=== PATIENT | female | born 1950 | race Caucasian/White ===

== ENCOUNTER 2023-06-18 13:46 | Outpatient (OUT) | payer OTHER, SELFPAY ==
--- NOTE | 2023-06-18 | CONS_ITS ---
CONSULTATION DATE: ??06/18/2023 HISTORY:? Patient presents today complaining of 7/10 pain in her lower back bilaterally, described as a stabbing pain, increased with standing, walking and performing transitioning maneuvers.? Twisting maneuver is also quite painful.? She feels most comfortable in the semi-recumbent position or sitting.? Denies any change in bowel and bladder habits or new sensorimotor changes in the lower extremities. MEDICATION:? Current medications include baclofen 5 mg b.i.d. to t.i.d. as tolerated and Zonegran 50 mg at h.s.? Denies any side effects, but she does report that she is possibly losing her hair which coincides with the start up of these medicines. EXAM:? Her examination is notable for patient having no clinical radiculopathy or myelopathy involving the lower extremities.? However, patient did have dysesthesia and hyperesthesia overlying the lateral cutaneous branch of the iliohypogastric nerve on the right side.? She has severe pain with lumbar facet loading maneuvers occurring bilaterally, left worse than right, at L4-5 and L5- S1.? She has associated myofascial spasm of the lumbar paravertebral muscles.? She also had increasing pain with lumbar axial loading maneuvers, and point tenderness at the L4-5 and L5-S1 interspace. IMPRESSION:? Our impression is patient appears to have: 1.? Chronic pain secondary to possible lumbar discogenic pain at L4-5, L5-S1. 2.? Lumbosacral spondylosis bilaterally, worse on the left than the right side, at L4-5, L5-S1. 3.? 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 RECOMMENDATIONS:? I have recommended proceeding with a diagnostic bilateral L3, 4 and 5 medial branch block.? I have asked her to hold the Zonegran secondary to possible alopecia from the same.? I have increased her baclofen 5 mg pills, 1-2 pills b.i.d.? We will get the lumbosacral spine films, and also a lumbar MRI without contrast to determine < > proximal lumbar discogenic pain. As part of providing excellent, safe, comprehensive care, the following was completed at our patient's visit: 1. A medication reconciliation and review to ensure accurate knowledge of current/active medications, including asking our patients to inform us about any sfke-yyy-kvtwjux medications or herbal remedies/nutritional supplements/alternative remedies. 2. A review to specifically ensure our patients have had annual screening for: elevated body mass index (BMI, see intake chart for exact total), tobacco use, screening for depression, and screening for unhealthy alcohol use.? When screening is concerning, patients are provided with education and the specific recommendation to discuss the con MTDD
== END 2023-06-18 13:47 | disposition home or self-care (01) ==
LOC: PM 13:48
PROVIDERS: Visit Provider Anesthesiology Pain Medicine
DX: M47.817 Spondylosis without myelopathy or radiculopathy, lumbosacral region (principal); G89.29 Other chronic pain
CPT/HCPCS: 72110; G0463

== ENCOUNTER 2023-06-18 15:40 | Outpatient (OUT) | payer OTHER, SELFPAY ==
--- NOTE | 2023-06-18 16:00 | XR_ITS ---
The [address] [address] Patient Name: MARLENA DIAZ MRN: [id number] date: 1950 Sex: F Assigned Patient Location: [facility] Current Patient Location: Accession/Order Number: [id number] Exam Date: 06/18/2023 15:54 Report Date: 06/19/2023 09:27 At the request of: GEORGETTE COPPOLA Procedure: XR lumbar spine min 4V EXAM: XR lumbar spine min 4V HISTORY: Lumbar Spondylosis, M47.816 COMPARISON: None. TECHNIQUE: 4 views FINDINGS: Satisfactory alignment. Maintained vertebral body heights. Multilevel endplate degenerative changes, disc disease, and anterior spurring of the lumbar spine. No acute fracture or subluxation. Nonobstructive bowel gas pattern. XR/XR lumbar spine min 4V IMPRESSION: Degenerative changes and disc disease as above. Electronically authenticated by: MARIANA ECHEVARRIA Date: 06/19/2023 09:27
== END 2023-06-18 15:41 | disposition home or self-care (01) ==
LOC: RAD 15:45
PROVIDERS: Visit Provider Anesthesiology Pain Medicine
DX: M47.816 Spondylosis without myelopathy or radiculopathy, lumbar region (principal)
CPT/HCPCS: 72110

== ENCOUNTER 2023-07-14 09:28 | Day surgery (SDC) | payer OTHER, SELFPAY ==
[2023-07-14 09:42] VITALS: BP 158/88; PULSE 80; RESP 16; TEMP 36; O2SAT 100
[2023-07-14] MEDS: BUPIVACAINE HCL 0.25% PF 25 MG/10 ML VIAL INJ (10:30)
[2023-07-14 10:33] VITALS: BP 171/102; PULSE 73; RESP 18; O2SAT 91
[2023-07-14 10:34] VITALS: BP 177/92; PULSE 77; RESP 18; O2SAT 91
--- NOTE | 2023-07-14 16:10 | P.ON_ITS ---
Date of procedure: 07/14/23 Pre-op diagnosis: lumbar spondylosis Post-op diagnosis: same as pre-op Procedure: Bilat lumbar 3,4,5 medial branch block Under fluoroscopic guidance Solution injected: 2millilitersMarcaine 0.25% Anesthesia :none Immediate complications none Time out process compliant After informed consent obtained from the patient placed in the Prone proposition . area was prepped and draped in a sterile fashion using Cloraprep .25 gauge spinal needle inserted over each of the above mentioned target areas . [place] were directed towards the target under fluoroscopic guidance . after encountering each of the targets , no indication of intravascular intraneuronal or intrathecal needle tip placement. Then 0 .5 to 1 Milliliter was injected at each level. [place] removed postoperatively. patient transferred to recovery in stable condition to be discharged home after meeting criteria Anesthesia: Local Surgeon: Noreen Butler Condition: stable
== END 2023-07-14 10:38 | disposition home or self-care (01) ==
LOC: SURGOUT 09:29
PROVIDERS: Visit Provider Anesthesiology Pain Medicine
DX: M47.816 Spondylosis without myelopathy or radiculopathy, lumbar region (principal)
CPT/HCPCS: 64493; 64494

== ENCOUNTER 2023-07-23 13:28 | Outpatient (OUT) | payer OTHER, SELFPAY ==
--- NOTE | 2023-07-23 13:32 | PM.CN ---
Consult Note: HPI Data of Consult Patient: known to practice within the last 3 years Requesting Physician: Maribel Interiano NP Primary Care Provider: Non-Staff Physician, Consult Narrative Reason for consult: procedure f/u Narrative: Beena Madera a pleasant 72 year old female presents for evaluation of chronic low back pain. Recently underwent bilateral L3-4 4-5 MBB with 100% pain relief and functional improvement immediately after and hours after the procedure, patient noticed increase in ability to ambulate and garden without pain. Today rating pain 5/10 in low over L3-5 back without radiculopathy. cc:: CC: Maribel Interiano NP Review of Systems ROS Status of ROS 10 or more systems reviewed and unremarkable except as noted in history and below Musculoskeletal Reports: back pain PFSH PFSH Medical History (Updated 07/23/23 @ 14:16 by Maribel Interiano NP) Meds Home Medications and Allergies Home Medications Medication Instructions Recorded Confirmed Type amantadine HCl 100 mg tablet 100 mg PO BID 06/29/23 07/14/23 History baclofen 5 mg tablet 5 mg PO Q8H PRN muscle spasm 06/29/23 07/14/23 History carbidopa ER 25 mg-levodopa 100 mg 1 tab PO QID 06/29/23 07/14/23 History tablet,extended release clonazepam 0.5 mg tablet 0.5 mg PO BID 06/29/23 07/14/23 History furosemide 20 mg tablet 20 mg PO BID 06/29/23 07/14/23 History losartan 25 mg tablet 25 mg PO DAILY 06/29/23 07/14/23 History pramipexole 0.25 mg tablet 0.25 mg PO TID 06/29/23 07/14/23 History rasagiline 1 mg tablet 1 mg PO DAILY 06/29/23 07/14/23 History zolpidem 5 mg tablet 5 mg PO DAILY 06/29/23 07/14/23 History Allergies Allergy/AdvReac Type Severity Reaction Status Date / Time No Known Drug Allergies Allergy Verified 07/14/23 09:50 Exam Constitutional Documenting provider has reviewed patient's vital signs: yes Common normals: no apparent distress, oriented x3, healthy appearing, alert and well nourished General appearance: cooperative HENMT Common normals: normocephalic, hearing grossly normal bilaterally and moist oral mucous membranes Head and scalp: normocephalic Eye Common normals: PERRL Pupil: PERRL Neck & C-Spine Common normals: full ROM General: normal visual inspection Chest Common normals: inspection of chest normal Respiratory Common normals: normal respiratory effort, no retractions and no use of accessory muscles Back & Pelvis Lumbar spine/lower back: ROM limited, pain with ROM and straight leg raise negative bilaterally Other: predominately axial back pain over l3-5 without radiculopathy positive facet loading L>R Neuro Common normals: oriented x3, CN's II-XII intact bilaterally, moves all extremities, no focal motor deficits, no sensory deficits noted and deep tendon reflexes 2+ bilaterally Sensorium/orientation: alert Gait (neuro): antalgic Motor exam: strength 5/5 throughout and no movement abnormalities noted Psych Common normals: mental status grossly normal, thought process normal, cooperative, affect normal, speech normal and activity/motor behavior normal Speech: normal speech Thought process: normal thought process Results Additional Findings Additional findings: I have checked an OARRS report on this patient today and there are no aberrancies noted in the prescribing history.?? A drug screen was completed and reviewed within the last year, and if there has not been a drug screen completed we ordered one today to monitor higher risk, state monitored pain medication use. As part of providing excellent, safe, comprehensive care, the following was completed at our patient's visit: 1. A medication reconciliation and review to ensure accurate knowledge of current/active medications, including asking our patients to inform us about any vzge-soa-nlszbig medications or herbal remedies/nutritional supplements/alternative remedies. 2. A review to specifically ensure our patients have had annual screening for: elevated body mass index (BMI), tobacco use, screening for depression, and screening for unhealthy alcohol use. When screening is concerning, patients are provided with education and the specific recommendation to discuss the concerning health issue and treatment options with their primary care provider. Assessment and Plan Assessment and Plan (1) Lumbar spondylosis: Assessment and Plan: We discussed the risks and benefits of the procedure with the patient The procedure will be completed with fluoroscopic guidance.? (2) Muscle spasm: Plan MRI reviewed with patient, reveals multilevel degenerative changes as well as neural foraminal narrowing worst at right l4-5 and left l5-s1 proceed with bilateral L3/4 4/5 MBB #2 under fluoroscopy working towards thermal RFA, will prescribe 5mg PO valium to take 30 mins prior to procedure due to extreme anxiety continue current medication regimen, tolerating well without side effects f/u after injection
== END 2023-07-23 13:29 | disposition home or self-care (01) ==
LOC: PM 13:28
PROVIDERS: Visit Provider Nurse Practitioner
DX: M47.816 Spondylosis without myelopathy or radiculopathy, lumbar region (principal); M62.838 Other muscle spasm
CPT/HCPCS: G0463

== ENCOUNTER 2023-08-11 11:09 | Day surgery (SDC) | payer OTHER, SELFPAY ==
[2023-08-11 11:59] VITALS: BP 164/97; PULSE 92; RESP 16; TEMP 36.2; O2SAT 98
[2023-08-11] MEDS: BUPIVACAINE HCL 0.25% PF 25 MG/10 ML VIAL INJ (12:59)
[2023-08-11 13:01] VITALS: BP 158/88; BP 168/80; PULSE 78; PULSE 81; RESP 18; O2SAT 100; O2SAT 99
--- NOTE | 2023-08-11 13:07 | P.ON_ITS ---
Date of procedure: 08/11/23 Pre-op diagnosis: lumbar spondylosis Post-op diagnosis: same as pre-op Procedure: Bilateral lumbar 3/4, 4/5 medial branch block Under fluoroscopic guidance Solution injected: 2millilitersMarcaine 0.25% Anesthesia :none Immediate complications none Time out process compliant After informed consent obtained from the patient placed in the Prone proposition . area was prepped and draped in a sterile fashion using Cloraprep .25 gauge spinal needle inserted over each of the above mentioned target areas . [place] were directed towards the target under fluoroscopic guidance . after encountering each of the targets , no indication of intravascular intraneuronal or intrathecal needle tip placement. Then 0 .5 to 1 Milliliter was injected at each level. [place] removed postoperatively. patient transferred to recovery in stable condition to be discharged home after meeting criteria Anesthesia: Local Surgeon: Noreen Butler Condition: stable
== END 2023-08-11 13:07 | disposition home or self-care (01) ==
LOC: SURGOUT 11:09
PROVIDERS: Visit Provider Anesthesiology Pain Medicine
DX: M47.816 Spondylosis without myelopathy or radiculopathy, lumbar region (principal)
CPT/HCPCS: 64493; 64494

== ENCOUNTER 2023-08-20 10:44 | Outpatient (OUT) | payer OTHER, SELFPAY ==
--- NOTE | 2023-08-20 11:18 | PM.CN ---
Consult Note: HPI Data of Consult Patient: known to practice within the last 3 years Requesting Physician: Maribel Interiano NP Primary Care Provider: Non-Staff Physician, MD Consult Narrative Reason for consult: procedure f/u Narrative: Beena Madera a pleasant 72 year old female presents for evaluation of chronic low back pain. Recently underwent bilateral L3,4,5 MBB #2 with 80% pain relief and functional improvement immediately after and hours after the procedure.. Today rating pain 4/10 in low over L3-5 back without radiculopathy. Patient would like to discuss proceeding with thermal RFA for improvement in pain and quality of life. cc:: CC: Maribel Interiano NP Review of Systems ROS Status of ROS 10 or more systems reviewed and unremarkable except as noted in history and below Musculoskeletal Reports: back pain PFSH PFS Medical History (Updated 07/23/23 @ 14:16 by Maribel Interiano NP) Emphysema/COPD ?J43.9 - Emphysema, unspecified (ICD-10) Low back pain ?M54.50 - Low back pain, unspecified (ICD-10) Parkinsons disease ?G20 - Parkinson's disease (ICD-10) Meds Home Medications and Allergies Home Medications Medication Instructions Recorded Confirmed Type amantadine HCl 100 mg tablet 100 mg PO BID 06/29/23 08/11/23 History baclofen 5 mg tablet 5 mg PO Q8H PRN muscle spasm 06/29/23 08/11/23 History carbidopa ER 25 mg-levodopa 100 mg 1 tab PO QID 06/29/23 08/11/23 History tablet,extended release clonazepam 0.5 mg tablet 0.5 mg PO BID 06/29/23 08/11/23 History furosemide 20 mg tablet 20 mg PO BID 06/29/23 08/11/23 History losartan 25 mg tablet 25 mg PO DAILY 06/29/23 08/11/23 History pramipexole 0.25 mg tablet 0.25 mg PO TID 06/29/23 08/11/23 History rasagiline 1 mg tablet 1 mg PO DAILY 06/29/23 08/11/23 History zolpidem 5 mg tablet 5 mg PO DAILY 06/29/23 08/11/23 History diazepam 5 mg tablet mg 08/11/23 History Allergies Allergy/AdvReac Type Severity Reaction Status Date / Time No Known Drug Allergies Allergy Verified 08/11/23 11:57 Exam Constitutional Documenting provider has reviewed patient's vital signs: yes Common normals: no apparent distress, oriented x3, healthy appearing, alert and well nourished General appearance: cooperative HENMT Common normals: normocephalic, hearing grossly normal bilaterally and moist oral mucous membranes Head and scalp: normocephalic Eye Common normals: PERRL Pupil: PERRL Neck & C-Spine Common normals: full ROM General: normal visual inspection Chest Common normals: inspection of chest normal Respiratory Common normals: normal respiratory effort, no retractions and no use of accessory muscles Back & Pelvis Lumbar spine/lower back: ROM limited, pain with ROM and straight leg raise negative bilaterally Other: predominately axial back pain over l3-5 without radiculopathy positive facet loading L>R Extremity Common normals: normal to inspection and full ROM Neuro Common normals: oriented x3, CN's II-XII intact bilaterally, moves all extremities, no focal motor deficits, no sensory deficits noted and deep tendon reflexes 2+ bilaterally Sensorium/orientation: alert Gait (neuro): antalgic Motor exam: strength 5/5 throughout and no movement abnormalities noted Psych Common normals: mental status grossly normal, thought process normal, cooperative, affect normal, speech normal and activity/motor behavior normal Speech: normal speech Thought process: normal thought process Results Additional Findings Additional findings: I have checked an OARRS report on this patient today and there are no aberrancies noted in the prescribing history.?? A drug screen was completed and reviewed within the last year, and if there has not been a drug screen completed we ordered one today to monitor higher risk, state monitored pain medication use. As part of providing excellent, safe, comprehensive care, the following was completed at our patient's visit: 1. A medication reconciliation and review to ensure accurate knowledge of current/active medications, including asking our patients to inform us about any pnho-aek-abuomeh medications or herbal remedies/nutritional supplements/alternative remedies. 2. A review to specifically ensure our patients have had annual screening for: elevated body mass index (BMI), tobacco use, screening for depression, and screening for unhealthy alcohol use. When screening is concerning, patients are provided with education and the specific recommendation to discuss the concerning health issue and treatment options with their primary care provider. The patient has had over 3 months of moderate to severe low back pain with functional impairment and inadequate response to conservative care including NSAIDS (unless there are contraindication such as concurrent blood thinners), multiple oral or topical pain medications, and home exercise program/physical therapy.? Patient has completed >6 weeks of guided home exercise program and/or formal physical therapy program without relief of their symptoms.? Assessment and Plan Assessment and Plan (1) Lumbar spondylosis: Assessment and Plan: We discussed the risks and benefits of the procedure with the patient The procedure will be completed with fluoroscopic guidance.? (2) Muscle spasm: Plan left then right L3, 4, 5 thermal RFA under fluoroscopy with IV sedation continue current medication regimen, tolerating well without side effects f/u 1 month after procedures completed
== END 2023-08-20 10:45 | disposition home or self-care (01) ==
LOC: PM 10:44
PROVIDERS: Visit Provider Nurse Practitioner
DX: M47.816 Spondylosis without myelopathy or radiculopathy, lumbar region (principal); M62.838 Other muscle spasm
CPT/HCPCS: G0463

== ENCOUNTER 2023-09-15 07:59 | Day surgery (SDC) | payer OTHER, SELFPAY ==
[2023-09-15 08:11] VITALS: BP 155/77; PULSE 72; RESP 16; TEMP 36.3; O2SAT 98
[2023-09-15] MEDS: 0.9 % SODIUM CHLORIDE 500 ML 50 ML IV (08:19)
[2023-09-15] MEDS: LIDOCAINE HCL 2% 400 MG/20 ML MDV 7 ML INJ (09:04)
[2023-09-15] MEDS: BUPIVACAINE HCL 0.25% PF 25 MG/10 ML VIAL 4 ML INJ (09:04)
[2023-09-15] MEDS: METHYLPREDNISOLONE ACETATE 40 MG/ML VIAL INJ (09:04)
[2023-09-15 09:19] VITALS: BP 142/83; PULSE 71; RESP 16; TEMP 36.4; O2SAT 99
[2023-09-15 09:21] VITALS: BP 138/86; PULSE 85; RESP 16; TEMP 36.7; O2SAT 100
--- NOTE | 2023-09-15 09:41 | W.PM.PROCNOT ---
Date of procedure: 09/15/23 Pre-op diagnosis: Lumbar Spondylosis Post-op diagnosis: same as pre-op Procedure: Left Lumbar 3,4,5 Radiofrequency ablation Under fluoroscopic guidance Rhizotomy was created using radio frequency ablation at 80?C for 90 seconds 1 to 2 lesions created at each site. Post lesioning injection of 2 mL each of 0.25% Marcaine and 2% lidocaine with Depo-Medrol 40mg. 0.5 to 1 mL injected at each site IV in place yes If Intravenous fluids: NS at KVO Anesthesia local 2% lidocaine for Anesthesia Other: MAC Timeout process compliant After informed consent obtained.Patient brought to the procedure room placed in the prone position skin overlying the area was prepped and draped in a sterile fashion using betadine. 25 gauge needle was used to create a skin wheal over each of the targeted areas utilizing 2% lidocaine. A rhizotomy needle with a 10 mm active tip was inserted over each of the anesthetized areas and directed towards each of the medial branches accomplished under fluoroscopic guidance. after encountering the same we had positive sensory stimulation, negative motor stimulation was noted. lesions were then created. Post lesioning, steroid solution was injected needles removed. Patient was transferred to recovery room in stable condition to be discharged home after meeting criteria. Anesthesia: MAC Surgeon: Noreen Butler Condition: stable
== END 2023-09-15 09:56 | disposition home or self-care (01) ==
LOC: SURGOUT 07:59
PROVIDERS: Visit Provider Anesthesiology Pain Medicine
DX: M47.816 Spondylosis without myelopathy or radiculopathy, lumbar region (principal)
CPT/HCPCS: 64635; 64636; J1030; J2704

== ENCOUNTER 2023-09-29 08:05 | Day surgery (SDC) | payer OTHER, SELFPAY ==
[2023-09-29 08:21] VITALS: BP 126/76; PULSE 69; RESP 16; TEMP 36.5; O2SAT 95
[2023-09-29] MEDS: 0.9 % SODIUM CHLORIDE 500 ML IV (08:26)
[2023-09-29] MEDS: LIDOCAINE HCL 2% 400 MG/20 ML MDV 8 ML INJ (09:24)
[2023-09-29] MEDS: METHYLPREDNISOLONE ACETATE 40 MG/ML VIAL INJ (09:24)
[2023-09-29] MEDS: BUPIVACAINE HCL 0.25% PF 25 MG/10 ML VIAL 4 ML INJ (09:24)
[2023-09-29 09:41] VITALS: BP 109/67; PULSE 70; RESP 16; TEMP 36.9; O2SAT 99
[2023-09-29 09:51] VITALS: BP 105/54; PULSE 72; RESP 18; O2SAT 98
--- NOTE | 2023-09-29 09:57 | W.PM.PROCNOT ---
Date of procedure: 09/29/23 Pre-op diagnosis: Lumbar spondylosis Post-op diagnosis: same as pre-op Procedure: Right Lumbar 3,4,5 Radiofrequency ablation Under fluoroscopic guidance Rhizotomy was created using radio frequency ablation at 80?C for 90 seconds 1 to 2 lesions created at each site. Post lesioning injection of 2 mL each of 0.25% Marcaine and 2% lidocaine with Depo-Medrol 40mg. 0.5 to 1 mL injected at each site IV in place yes If Intravenous fluids: NS at KVO Anesthesia local 2% lidocaine for Anesthesia Other: MAC Timeout process compliant After informed consent obtained.Patient brought to the procedure room placed in the prone position skin overlying the area was prepped and draped in a sterile fashion using betadine. 25 gauge needle was used to create a skin wheal over each of the targeted areas utilizing 2% lidocaine. A rhizotomy needle with a 10 mm active tip was inserted over each of the anesthetized areas and directed towards each of the medial branches accomplished under fluoroscopic guidance. after encountering the same we had positive sensory stimulation, negative motor stimulation was noted. lesions were then created. Post lesioning, steroid solution was injected needles removed. Patient was transferred to recovery room in stable condition to be discharged home after meeting criteria. Anesthesia: MAC Surgeon: Noreen Butler Condition: stable
== END 2023-09-29 10:05 | disposition home or self-care (01) ==
LOC: SURGOUT 08:05
PROVIDERS: Visit Provider Anesthesiology Pain Medicine
DX: M47.816 Spondylosis without myelopathy or radiculopathy, lumbar region (principal)
CPT/HCPCS: 64635; 64636; J1030; J2704

== ENCOUNTER 2025-07-12 12:04 | Outpatient (OUT) | payer OTHER, SELFPAY ==
--- NOTE | 2025-07-12 12:19 | XR_ITS ---
[place] [id number] Patient Name: MARLENA DIAZ MRN: [id number] date: 1950 Sex: F Assigned Patient Location: [facility] Current Patient Location: PM Accession/Order Number: [id number] Exam Date: 07/12/2025 12:25 Report Date: 07/12/2025 13:20 At the request of: CORNELL CROUCH NP Procedure: XR cervical spine 5V CERVICAL SPINE 5 views: CLINICAL HISTORY: cervical spondylosis, M47.812 COMPARISON: None FINDINGS: Vertebral body heights appear maintained. Bones are grossly demineralized. Moderate spondylosis C4-C7 with scattered endplate, uncovertebral and facet joint degenerative changes. No prevertebral soft tissue swelling. XR/XR cervical spine 5V IMPRESSION: MODERATE SPONDYLOSIS C4-C7. Impression dictated by: Hodan Gonzalez Jr.OJose 07/12/2025 1:20 PM Dictation Location: [place] [address] Electronically authenticated by: [id number] Y Date: 07/12/2025 13:20
== END 2025-07-12 12:05 | disposition home or self-care (01) ==
PROVIDERS: Visit Provider Nurse Practitioner
DX: M47.812 Spondylosis without myelopathy or radiculopathy, cervical region (principal)
CPT/HCPCS: 72050

== ENCOUNTER 2025-07-12 12:12 | Outpatient (OUT) | payer OTHER, SELFPAY ==
--- OUTSIDE RECORDS SUMMARY | 2025-06-28 13:00 | XMS_ITS | Encounter Summary ---
Author Organization [employer] tem Address [facility] [place] [id number] [address] [place] [address] Care Team Providers Care Mastic Floor Layer Name Role Phone Danish Jesenia L CORPORATE LEGAL INTERN-MEMBERSHIP COUNSELOR Primary Care Provider Reason for Referral * Diagnostic Imaging (Routine) - Pending Review Specialty Diagnoses / Procedures Referred By Contac t Referred To Contact Diagnoses Dysphagia, unspecified type Procedures Fluoroscopy swallow motility function Trice Stinson MD [address] [place] [address], [address], [address] [place] [phone] Phone: tel: fax: Referral ID Status Reason Start Date Expiration Date V isits Requested Visits Authorized [id number] Pending Review 05/17/2025 05/17/2026 1 1 Reason for Visit * Diagnostic Imaging (Routine) - Pending Review Specialty Diagnoses / Procedures Referred By Madeline giles Referred To Contact Diagnoses Dysphagia, unspecified type Procedures Fluoroscopy swallow motility function Trice Stinson MD [address] [place] [address] 101, [address], [address] [place] [address] Phone: tel: fax: Referral ID Status Reason Start Date Expiration Date V isits Requested Visits Authorized [id number] Pending Review 05/17/2025 05/17/2026 1 1 Encounter Details Date Type Department Care Team (Latest Contact Info) Description 06/28/2025 1:00 PM EDT - 06/28/2025 11:59 PM EDT Hospital Encounter [facility] Division of [facility] - Radiology [address] [place] [phone] Trice Stinson MD [address] [place] [address], [facility] 101, [address], [address] [place] [phone] Dysphagia, unspecified type Discharge Disposition: Home Social History Tobacco Use Types Packs/Day Years Used Date Smoking Tobacco: Former Cigarettes Q uit: 2018 Smokeless Tobacco: Never Alcohol Use Standard Drinks/Week Comments Yes 7 (1 standard drink = 0.6 oz pur e alcohol) daily PHQ-2 Answer Date Recorded Total Score 0 05/17/2025 Childcare Answer Date Recorded Childcare Unknown 04/11/2019 Employment Answer Date Recorded Employment Unknown 04/11/2019 Hunger Screening Answer Date Recorded Within the past 12 months we worried whether our food would run out before we got money to buy more. Never True 05/17/2025 Within the past 12 months th e food we bought just didn't last and we didn't have money to get more. Never True 05/17/2025 Purpose - Life Answer Date Recorded Purpose and direction in life Unknown Comments No Sex and Gender Information Value Date Recorded Sex Assigned at Not on file Legal Sex Female 7:50 PM EDT Gender Identity Not on file Sexual Orientation Not on file documented as of this encounter Medications at Time of Discharge albuterol (PROVENTIL HFA;VENTOLIN HFA) 90 mcg/actuation inhalerIndications: Wheezing Inhale 2 puffs every 6 (six) hours as needed for wheezing. 18 g 2 06/27/2025 ammonium lactate (AMLACTIN) 12 % cream Apply 1 Application topically as needed. 02/14/2025 calcium citrate-vitamin D2 250 mg-2.5 mcg (100 unit) per tablet Take 1 tablet by mouth in the morning and 1 tablet before bedtime. carbidopa-levodopa (SINEMET CR) 25-100 mg per CR tabletIndications:P arkinson's disease with dyskinesia and fluctuating manifestations (CMS-HCC) Take 2 tabs 6am, 1 tab 1130am, 2 tabs 5pm, and 1 tab 11pm PO 540 tablet 3 03/30/2025 clonazePAM (KlonoPIN) 0.5 mg tabletIndications:I nsomnia due to medical condition,REM sleep behavior disorder Take 3 tablets at bedtime 270 tablet 1 12/05/2024 eszopiclone (LUNESTA) 2 mg tabletIndications:I nsomnia due to medical condition Take 1 tablet (2 mg total) by mouth nightly. Take immediately before bedtime 90 tablet 1 01/26/2025 folic acid (FOLVITE) 1 mg tabletIndications:I nflammatory polyarthritis ([facility]),Seronegat nery rheumatoid arthritis ([facility]) Take 1 tablet (1 mg total) by mouth in the morning. 90 tablet 3 09/29/2024 furosemide (LASIX) 20 mg tablet Take 1 tablet (20 mg total) by mouth daily. losartan (COZAAR) 25 mg tabletIndications:P rimary hypertension TAKE 1 TABLET BY MOUTH IN THE MORNING 90 tablet 3 02/24/2024 methotrexate 2.5 mg chemo tabletIndications:I nflammatory polyarthritis ([facility]),Seronegat nery rheumatoid arthritis ([facility]),Medicatio n monitoring encounter Take 9 tablets by mouth once a week 108 tablet 06/22/2025 09/20/20 25 pantoprazole (PROTONIX) 40 mg EC tablet TAKE 1 TABLET BY MOUTH IN THE MORNING 30 tablet 11 05/22/2025 pramipexole (MIRAPEX) 0.25 mg tabletIndications:P arkinson's disease ([facility]),Restless leg syndrome TAKE 1 TABLET BY MOUTH 3 TIMES DAILY 270 tablet 3 12/01/2024 rasagiline (AZILECT) 1 mg tabletIndications:R estless leg syndrome Take 1 tablet (1 mg total) by mouth every morning. 90 tablet 3 12/28/2024 simvastatin (ZOCOR) 40 mg tabletIndications:M ixed hyperlipidemia TAKE 1 TABLET BY MOUTH AT NIGHT 90 tablet 1 03/13/2025 tiZANidine (ZANAFLEX) 4 mg capsuleIndications: Neck pain,Muscle tension pain TAKE 1 CAPSULE BY MOUTH AT NIGHT 30 capsule 05/18/2025 amantadine (SYMMETREL) 100 mg tabletIndications:P arkinson's disease (CMS-HCC) Take 1-2 tabs at 6am and 1 tab at 12pm PO. 270 tablet 3 06/20/2025 07/03/20 documented as of this encounter Miscellaneous Notes * ASSISTANT PROFESSOR OF DRAMA Procedure Note - Revaherminio Carranza [facility]-ASSISTANT PROFESSOR OF DRAMA - 06/28/2025 1:47 PM EDT Speech Therapy Videofluoroscopic Swallow Study Evaluation Outpatient Impressions Oral Phase: Mild Pharyngeal Phase: Mild Suspected Structural Abnormalities: Cervical osteophytes Functional Oral Intake Scale: Total PO intake. No restrictions Recommendations Diet Level: Regular ((moist)) Liquid Level: Level 0 Thin Supplemental nutrition: Yes/consider d/t weight loss - consider supplemental nutrition/shakes (refer to RD)) Compensatory Strategies: Small sips/bites, One sip/bite at a time Double swallow, Liquid wash Moist solids, limit distractions, *chew solids well ensure proper positioning Pt may benefit from smaller frequent meals throughout the day (high caloric intake) vs 3 larger meals Pt/spouse educated on trialing a 'food diary' to better identify triggers of coughing/choking (types of food, time of day, before/after medications, pts level of lethargy that day) Supervision/Positioning: Patient at 90 degrees for all PO intake (including medication) Medications: One at a time, In applesauce/puree (OR crush/liquid meds) *Referrals: Dysphagia/Speech therapy (HH) GI consult should be considered Pt/spouse endorse increasing coughing/choking episodes with solids foods Pt has a hx of obtaining an esophageal dilation Plan/Education [x]Provided education regarding role of ASSISTANT PROFESSOR OF DRAMA, purpose of evaluation, results and recommendations of the assessment [x]Pt verbalized understanding and agreement [x]Family/Caregiver verbalized understanding and are in agreement [x]Pt requires ongoing learning []No evidence of comprehension Recommended Intervention: [x] Dysphagia tx as HH (Per pt request) [] Follow up with a VFSS and/or FEES exam as indicated by the primary ASSISTANT PROFESSOR OF DRAMA or ordering MD [] Videostroboscopy []Speech/Cog Eval []Therapeutic PO Trials with ST [] Ice Chips []Other: Assessment Reason for Referral Evaluation date: 06/28/25 Ordering MD: Trice Stinson MD Reason for referral: to evaluate the pts swallow function, assess motility/structures, effectiveness of compensatory strategies, assess for aspiration, & determine the safest LRD Pt reports: Parkinson's Pt/spouse report worsening dyskinesia Consistent with previous VFSS exam interviews - the pt/spouse indicate ongoing coughing, specifically with solid textures Pt/spouse report weight loss (5'2 / 90lbs) Subjective Pt is alert/cooperative/pleasant, follows directions +dysarthria/dysphonia; with dyskinesia Follows with Neurology Hx of GI consults (esophageal dilation 05/2024) Accompanied by: spouse PMH: Parkinson's dx 20+ years ago per pt/spouse report COPD, CHF, HTN, Dyskinesia, dysphagia, change in speech/voice, wt. Loss Past Medical History: Diagnosis Date Acute on chronic heart failure with preserved ejection fraction ([facility] [place]) 02/20/2022 Anxiety Arthritis Asthma Cellulitis of left lower extremity 02/19/2022 COPD (chronic obstructive pulmonary disease) ([facility] [place]) 03/14/2019 Dyslipidemia Esophageal dysphagia 2023 Heart murmur Hypertension Low back pain Open wound of left lower leg 01/20/2022 Parkinson's disease Sepsis due to Staphylococcus aureus ([facility]) 01/17/2022 Tear of right hamstring 07/03/2020 Visual impairment glasses Patient Active Problem List Diagnosis Chronic bilateral low back pain without sciatica Swelling of right hand Menopause Decreased body height Parkinson's disease ([facility] [place] [facility]) Hypertension Mixed hyperlipidemia Lumbar degenerative disc disease Osteoarthritis of facet joint of lumbar spine COPD (chronic obstructive pulmonary disease) ([facility] [place] [facility]) Tear of right hamstring Right rotator cuff tear arthropathy Livedo reticularis Oral lesion Chronic heart failure with preserved ejection fraction ([facility] [place]) Vasovagal episode Nonrheumatic mitral valve regurgitation Chronic pain syndrome Neck pain, chronic Cervical radiculopathy Past Surgical History: Procedure Laterality Date AUGMENTATION MAMMAPLASTY 11/09/2018 silicone COLONOSCOPY 10/20/2015 Rept 10 yrs ESOPHAGOGASTRODUODENOSCOPY with biopsies and dilatioin N/A 05/24/2024 Performed by Cliff Greenfield MD at [facility] ENDOSCOPY OTHER SURGICAL HISTORY spinal pain shot Baseline Assessment Prior BSSE/VFSS: + Parkinson's dx 20 yrs ago Hx of esophageal dilation Reports frequent choking episodes on solids @[facility] 02/25/22 VFSS (reg/thin) @ [facility] [place]) 06/17/24 S/L eval (SLUMS ) Esophageal Dilation 05/2024 @ [facility] 07/13/24 VFSS (reg/thin - moist solids) Meds in puree, crushed, or liq form Setting Prior to Admission: Home, Home health (Home with spouse; receiving services) Associated Problems: Coughing, Difficulty with solids (*Parkinson's dx) Respiratory Status: Room Air Behavior/Cognition: Alert, Cooperative, Pleasant mood, Able to follow directions Dentition: Adequate Patient Positioning: Upright in chair (+ dyskinesia) Baseline Vocal Quality: Weak, Dysphonic (soft volume) Volitional Swallow: Within Functional Limits Ability to Control Secretions: Yes Feeding Assistance: Able to feed self Current Diet Type: Level 0 Thin, Regular Allergies Marked As Reviewed: Complete Consistencies Tested Views: Lateral position Level 0 Thin: Cup, Straw Level 4 Pureed: Spoon Level 6 Soft & Bite-Sized: Spoon Regular Tested: Bite Modified Barium Swallow Impairment Profile (MBSImP) ~Oral Impairment: Yes Component 1: Lip Closure: no labial escape Component 2: Tongue Control During Bolus Hold: posterior escape of less than half of bolus Component 3: Bolus Preparation/Mastication: slow prolonged chewing/mashing with complete re-collection (with piecemeal deglutition) Component 4: Bolus Transport/Lingual Motion: slowed tongue motion Component 5: Oral Residue: residue collection on oral structures Component 6: Initiation of Pharyngeal Swallow: bolus head in valleculae ~Pharyngeal Impairment: Yes Component 7: Soft Palate Elevation: no bolus between soft palate/posterior pharyngeal wall Component 8: Laryngeal Elevation: partial superior movement of thyroid cartilage/partial approximation of arytenoids to epiglottic petiole Component 9: Anterior Hyoid Excursion: partial anterior movement Component 10: Epiglottic Movement: partial inversion Component 11: Laryngeal Vestibular Closure - Height of the Swallow: incomplete, narrow column of contrast/air in laryngeal vestibule Component 12: Pharyngeal Stripping Wave: present - diminished Component 13: Pharyngeal Contraction (A/P view only): could not be determined due to logistical reasons not related to physiologic impairment Component 14: Pharyngoesophageal Segment Opening: partial distension/partial duration, partial obstruction of flow Component 15: Tongue Base Retraction: narrow column of contrast/air between tongue base and posterior pharyngeal wall Component 16: Pharyngeal Residue: collection of residue within or on pharyngeal structures (Liquids: mild post swallow residue. Solids: Mild to mild-mod post swallow residue mostly in the valleculae;that reduces using strategies (secondary swallows and/or liquid wash).) ~Esophageal Impairment: (+ cervical osteophyte. No significant retention noted in the proximal esophagus; There is +slow bolus passage through the proximal esophagus with solids; otherwise boluses transfer freely through the esophagus. Given the pts reported s/s with solids, refer to GI for furtherrecs; pt had an esophageal dilation last year) [facility] Overall Impression Scores Oral Impairment Total: 8 Pharyngeal Impairment Total: 10 Penetration/Aspiration Scale ~No aspiration; no concerning penetration (PAS2 penetration that ejects; normal variation) Level 0 Thin: Contrast did not enter the airway, Contrast entered the airway, remained above the vocal folds, and was ejected from the airway Level 4 Pureed: Contrast did not enter the airway Level 6 Soft & Bite-Sized: Contrast did not enter the airway Regular: Contrast did not enter the airway Trialed Compensatory Strategies Strategies Utilized: Small sips/bites, Liquid wash, Double swallow Effective: Yes Pain Assessment Pain Assessment: No/denies pain Plan Refer to ordering MD for further medical management Diagnosis Code Swallowing: R13.12 Dysphagia, oropharyngeal phase Active Problems: * No active hospital problems. * documented in this encounter Plan of Treatment Upcoming Encounters Date Type Department Care Team (Late st Contact Info) Description 07/20/2025 10:45 AM EDT Office Visit [facility] Department of [address] [phone] Cliff Greenfield MD [address] [place] [address], [address] [place] [address] 08/01/2025 2:00 PM EDT Office Visit [facility] Department of [facility] [address] [place] [address] 101, [address], [address] [place] [address] Triec Stinson MD [address] [facility] 101, [address], [address] [place] [address] 08/07/2025 11:00 AM EDT Office Visit [facility] [address] [facility] [address] [place] [address] Isidro Woodall, DO [address] [facility] [address] [place] [address] 08/07/2025 11:00 AM EDT Appointment [facility] [address] [place] [address] 08/21/2025 2:30 PM EDT Appointment [facility] [address] [place] [address] 08/22/2025 2:30 PM EDT Office Visit [facility] [address] [facility] [address] [place] [address] Isidro Woodall, DO [address] [address] 08/23/2025 1:30 PM EDT Office Visit [facility] [address] [facility] [address] [place] [address] Jesenia Peng, CORPORATE LEGAL INTERN-MEMBERSHIP COUNSELOR [address] [facility] [place] [address] 09/26/2025 1:30 PM EST Office Visit [facility], [facility] Department of [address] [address] Neli Clemente MD MPH [address] [facility] [address] [place] [phone] 10/13/2025 11:45 AM EST Office Visit [facility] Cardiology [address] [place] [address] [address] [place] [address] Duong Johnson DO [address] [facility], [address] [place] [address] 10/13/2025 3:15 PM EST Office Visit [facility], [facility] Department of [facility] [address] [place] [address] [address] [place] [phone] Ines Uribe PA-C [address] [facility], [address] [place] [address] 11/14/2025 12:20 PM EST Office Visit [facility] [address] [facility] [place] [phone] Ofelia Pierce V, CORPORATE LEGAL INTERN-MEMBERSHIP COUNSELOR [address] [facility] [address] [place] [address] 11/21/2025 12:30 PM EST Appointment [facility] M[facility] [address] [place] [phone] documented as of this encounter Goals Goal Patient Goal Type Associated Problems Recent Progress Patient-Stated? Author Discharge with home care General Yes Carmen Yañez, RN Note: Evaluation of progress towards goal: Discharge home with & [facility] documented as of this encounter Procedures Procedure Name Priority Date/Time Associated Diagnosis Comments FL SWALLOW MOTILITY FUNCTION Routine 06/28/2025 1:19 PM EDT Dysphagia, unspecified type documented in this encounter Results * Fluoroscopy swallow motility function (06/28/2025 1:19 PM EDT) Anatomical Region Laterality Modality Chest, Abdomen, Body Radio Fluor oscopy 06/28/2025 3:49 PM EDT Narrative 06/28/2025 3:51 PM EDT STUDY: Video fluoroscopic swallow study CLINICAL HISTORY: Oral pharyngeal dysphagia, difficulty swallowing COMPARISON: 07/13/2024. FINDINGS: Video fluoroscopic swallow study was performed in conjunction with members of speech pathology. Barium contrast materials of multiple consistencies were administered. Fluoroscopic reference air kerma was 6.41 mGy. Multiple video fluoroscopic images. Zero fluoroscopic spot films. Penetration with thin barium. No evidence of aspiration. No penetration or aspiration of other administered consistencies. Correlate with dedicated speech pathology report for additional details and recommendations. IMPRESSION: 1. Penetration with thin barium. No evidence of aspiration. 2. Correlate with dedicated speech pathology report for additional details and recommendations. Finalized by José Miguel Hernandez MD on 06/28/2025 3:51 PM Procedure Note José Miguel Hernandez MD - 06/28/2025 STUDY: Video fluoroscopic swallow study CLINICAL HISTORY: Oral pharyngeal dysphagia, difficulty swallowing COMPARISON: 07/13/2024. FINDINGS: Video fluoroscopic swallow study was performed in conjunction with membersof speech pathology. Barium contrast materials of multiple consistencieswere administered. Fluoroscopic reference air kerma was 6.41 mGy. Multiplevideo fluoroscopic images. Zero fluoroscopic spot films. Penetration with thin barium. No evidence of aspiration. No penetration oraspiration of other administered consistencies. Correlate with dedicated speech pathology report for additional detailsand recommendations. IMPRESSION: 1. Penetration with thin barium. No evidence of aspiration. 2. Correlate with dedicated speech pathology report for additional detailsand recommendations. Finalized by José Miguel Hernandez MD on 06/28/2025 3:51 PM Trice Stinson MD IMG FLUOROSCOPY ORDERABLES Final Result documented in this encounter Visit Diagnoses Diagnosis Dysphagia, unspecified type documented in this encounter Administered Medications Inactive Administered Medications - up to 3 most recent administrations Medication Order MAR Action Action Date Dose Rate Site barium sulfate (VARIBAR PUDDING) 40 % (w/v), 30% (w/w) oral paste 20 mL 20 mL, oral, Once in imaging, contrast, Starting on Thu06/28/25 at 1317, For 1 dose Given 06/28/2025 1:45 PM EDT 20 mL barium sulfate (VARIBAR THIN) 81 % (w/w) powder 20 g 20 g, oral, Once in imaging, contrast, Starting on Thu06/28/25 at 1317, For 1 dose Given 06/28/2025 1:45 PM EDT 50 g documented in this encounter Additional Health Concerns Assessment Noted Time PHQ-9 Depression Total Score: 0 05/17/20 10:34 AM EDT A Body Mass Index follow-up plan has been documented for the patient 02/23/2025 12:24 PM EDT documented as of this encounter Care Teams Mastic Floor Layer Relationship Specialty Start Date End Date Jesenia Peng APRN-MEMBERSHIP COUNSELOR [address] [place] [address], [address] [place] [address] PCP - General 03/19/15 documented as of this encounter
--- OUTSIDE RECORDS SUMMARY | 2025-07-12 12:14 | XMS_ITS | Encounter Summary ---
Author Organization [employer] [employer] Address [id number] [address] [place] [address] Care Team Providers Care Fruit Harvest Worker Name Role Phone Jesenia Peng PREFINISH OPERATOR-SOLAR DESIGNER Primary Care Provider Reason for Visit * Reason Comments Med Refill Encounter Details Date Type Department Care Team (Late st Contact Info) Description 06/30/2025 Refill [facility] [address] [place] [phone] Trice Stinson MD [address] [place] [address], [facility] [address], [address], [address] [place], [place] [phone] Parkinson's disease ([facility]) Social History Tobacco Use Types Packs/Day Years [...] on file documented as of this encounter Plan of Treatment Upcoming Encounters Date Type Department Care Team (Late st Contact Info) Description 07/20/2025 10:45 AM EDT Office Visit [facility], A Department of [address] [place] [address] [place] [address] [place] [address], [address] [place] [address] 08/01/2025 2:00 PM EDT Office Visit [facility] Neurology, A Department of [address], [address], [address] [place] [phone] Trice Stinson MD [address] [place] [address] 101, 102, [address] [place] [address] 08/07/2025 11:00 AM EDT Office Visit [facility] [address] [facility] [address] [place] [address] Isidro Woodall, DO [address] [facility] 170 [place] [address] 08/07/2025 11:00 AM EDT Appointment [facility] Rad[facility] [address] [place] [address] 08/21/2025 2:30 PM EDT Appointment [facility] [address] [place] [address] 08/22/2025 2:30 PM EDT Office Visit [facility] [address] [facility] [address] [place] [address] Isidro Woodall DO [address] [facility] [address] [place] [address] 08/23/2025 1:30 PM EDT Office Visit [facility] [address] [facility] [address] [place] [phone] Jesenia Peng, PREFINISH OPERATOR-SOLAR DESIGNER [address] [facility], [address] [place] [address] 09/26/2025 1:30 PM EST Office Visit [facility], A Department of [address] [phone] Neli Clemente MD MPH [address] [place] [phone] 10/13/2025 11:45 AM EST Office Visit [facility] Card[facility] [address] [place] [phone] Duong Johnson, DO [address] [place] [address], [address] [place] [address] 10/13/2025 3:15 PM EST Office Visit [facility], A Department of [address] [place] [phone] Ines Uribe PA-C [address] [place] [address], [address] [place] [address] 11/14/2025 12:20 PM EST Office Visit [facility] [address] [facility] [address] [place] [phone] Ofelia Pierce V, PREFINISH OPERATOR-SOLAR DESIGNER [address] [facility] [place] [address] 11/21/2025 12:30 PM EST Appointment [facility] [place] - Mammography [address] [place] [address] documented as of this encounter Goals Goal Patient Goal Type Associated Problems Recent Progress Patient-Stated? Author Discharge with home care General Yes Carmen Yañez, RN Note: Evaluation of progress towards goal: [facility] home [facility] documented as of this encounter Visit Diagnoses Diagnosis Parkinson's disease (CMS-HCC) documented in this encounter Additional Health Concerns Assessment Noted Time PHQ-9 Depression Total Score: 0 05/17/20 25 10:34 AM EDT A Body Mass Index follow-up plan has been documented for the patient 02/23/2025 12:24 PM EDT documented as of this encounter Care Teams Fruit Harvest Worker Relationship Specialty Start Date End Date Jesenia Peng APRN-JONEL [address] [place] [address], [address] [place] [address] PCP - General 03/19/15 documented as of this encounter
--- OUTSIDE RECORDS SUMMARY | 2025-07-12 12:14 | XMS_ITS | Encounter Summary ---
Author Organization [facility] Address [id number] [address] [place] [address] Care Team Providers Care Therapy Administrative Assistant Name Role Phone Jesenia Peng LINE CLOSER-DIRECTOR OF MANUFACTURING OPERATIONS Primary Care Provider Encounter Details Date Type Department Care Team (Late st Contact Info) Description 10/03/2024 Orders Only [facility] [address] [facility] [address] [place] [address] Ref Prov, [place] [address] Social History Tobacco Use Types Packs/Day Years Used Date Smoking Tobacco: Former Cigarettes Q uit: 2018 Smokeless Tobacco: Never Alcohol Use Standard Drinks/Week Comments Yes 7 (1 standard drink = 0.6 oz pur e alcohol) daily PHQ-2 Answer Date Recorded Total Score 0 08/09/2024 Childcare Answer Date Recorded Childcare Unknown 04/11/2019 Employment Answer Date Recorded Employment Unknown 04/11/2019 Hunger Screening Answer Date Recorded Within the past 12 months we worried whether our food would run out before we got money to buy more. Never True 08/09/2024 Within the past 12 months th e food we bought just didn't last and we didn't have money to get more. Never True 08/09/2024 Purpose - Life Answer Date Recorded Purpose [...] Description 07/20/2025 10:45 AM EDT Office Visit [facility], A Department of [facility] [address] [place] [address] [address] [place] [address] Cliff Greenfield MD [address] [facility], [address] [place] [address] 08/01/2025 2:00 PM EDT Office Visit [facility] Neurology, A Department of [address] 101, [address], [address] [place] [phone] Trice Stinson MD [address] [place] [address] 101, 102, 103 [place] [address] 08/07/2025 11:00 AM EDT Office Visit [facility] [address] [facility] 170 [place] [address] Isidro Woodall DO [address] [facility] 170 [place] [address] 08/07/2025 11:00 AM EDT Appointment [facility] Rad[facility] [address] [place] [address] 08/21/2025 2:30 PM EDT Appointment [facility] [address] [place] [address] 08/22/2025 2:30 PM EDT Office Visit [facility] [address] [facility] 170 [place] [address] Isidro Woodall DO [address] [facility] [address] [place] [address] 08/23/2025 1:30 PM EDT Office Visit [facility] [address] [facility] [address] [place] [phone] Jesenia Peng, LINE CLOSER-DIRECTOR OF MANUFACTURING OPERATIONS [address] [facility], [address] [place] [address] 09/26/2025 1:30 PM EST Office Visit [facility], A Department of [address] [place] [phone] Neli Clemente MD MPH [address] [place] [phone] 10/13/2025 11:45 AM EST Office Visit [facility] [address] [place] [phone] Duong Johnson, [address] [place] [address], [address] [place] [address] 10/13/2025 3:15 PM EST [facility], A Department of [address] [place] [phone] Ines Uribe PA-C [address] [place] [address], [address] [place] [address] 11/14/2025 12:20 PM EST Office Visit [facility] [address] [facility] 170 [place] [phone] Ofelia Pierce V, LINE CLOSER-DIRECTOR OF MANUFACTURING OPERATIONS [address] [facility]170 [place] [address] 11/21/2025 12:30 PM EST Appointment [facility] [address] [place] [phone] documented as of this encounter Goals Goal Patient Goal Type Associated Problems Recent Progress Patient-Stated? Author Discharge with home care General Yes Carmen Yañez, RN Note: Evaluation of progress towards goal: [facility] home with [facility] documented as of this encounter Procedures Procedure Name Priority Date/Time Associated Diagnosis Comments EXTERNAL LAB ORDERS / RESULTS Routine 10/03/2024 8:07 AM EST documented in this encounter Results * External Lab Orders / Results (10/03/2024 8:07 AM EST) us Not In System Ref Prov LAB ORDERABLES Final Res ult MANUALLY TRANSCRIBED RESULTS documented in this encounter Visit Diagnoses Not on filedocumented in this encounter Additional Health Concerns Infection Onset Date Last Indicated Resolved Time COVID-19 Rule-Out 06/27/2025 06/27/2025 06/27/2025 2:03 PM EDT Assessment Noted Time PHQ-9 Depression Total Score: 0 08/09/20 24 7:00 AM EDT A Body Mass Index follow-up plan has been documented for the patient 06/29/2024 1:23 PM EDT documented as of this encounter Care Teams Therapy Administrative Assistant Relationship Specialty Start Date End Date Jesenia Peng, LINE CLOSER-DIRECTOR OF MANUFACTURING OPERATIONS [address] [place] [address], [address] [place] [address] PCP - General 03/19/15 documented as of this encounter
--- OUTSIDE RECORDS SUMMARY | 2025-07-12 12:14 | XMS_ITS | Encounter Summary ---
Author Organization [facility] Address [id number] [address] [place] [address] Care Team Providers Care Log Raft Worker Name Role Phone Jesenia Peng FUEL YARD OPERATOR-WINDSMITH Primary Care Provider Encounter Details Date Type Department Care Team (Late st Contact Info) Description 07/04/2025 Telephone [facility] Neurology, A Department of [address], [address], [address] [place] [phone] Trice Stinson MD [address] [place] [address] 101, 102, 103 [place], [place] [phone] Social History Tobacco Use Types Packs/Day Years [...] on file documented as of this encounter Miscellaneous Notes * Telephone Encounter - Genia Uribe - 07/04/2025 11:10 AM EDT Is it the same exact movement in the same part of the body over and over or is it random wiggling movement (like Ashok Sánchez)? Patient stated that it is dyskinesia When did it start? It has been getting worse since 8 weeks ago What time of day is the worst? Mornings Does it occur (or is it the worst) when the medication is wearing off? Yes Does it occur (or is it the worst) 1-2 hours after taking a medication? It can be sometimes yes and sometimes no if so what medication? C/L CR 25/100 mg Any recent or current infections, such as cold, flu, or UTI? Patient reports she has a cough and went to urgent care and was told that her lungs are clear and COVID test was negative. hospital stays?No Current New urinary frequency, urgency, pain with urination, blood in urine? For the past 2 weeks patient reports wearing incontinence briefs at night due to urgency Recent changes in medication? Dr. Cabrera has increased her methotrexate on 06/22/2025to 9 (22.5 mg total) tablets taken once a week Confirm Parkinson's medications, including dose, how many tablets and what times they are taken: Amantadine 100 mg patient is taking 2 tablets in AM and 1 tablet at noon C/L CR 25/100 mg Patient is taking 2 tablets at 6am, 1 tablet at noon, 2 tablets at 5pm, 1 tablet at bedtime Clonazepam 0.5mg patient is taking 3 tablets at HS Lunesta 2 mg patient is taking 1 tablet before bedtime. Pramipexole 0.25 mg Patient is taking 1 tab TID Rasagiline 1 mg patient is taking 1 tab in AM * Telephone Encounter - Trice Stinson MD - 07/04/2025 11:10 AM EDT Can you try to find her a closer follow up to discuss these changes? OK to use DBS slot. * Telephone Encounter - Genia Hurleyler - 07/04/2025 11:10 AM EDT I have attempted to contact this patient by phone with the following results: left detailed messageto return my call on voicemail to schedule a follow-up with Dr. Stinson for 07/05/2025 at 14:00 or 07/06/2025 at 15:30. * Telephone Encounter - Osvaldo Bernal - 07/04/2025 11:10 AM EDT Patient returned call. Patient was offered two slots. One of the slots were in the past and the other slot was booked. Overhead Door Technician verified w/ provider for patient to keep 08/01/25 appt. Patient voiced understanding. documented in this encounter Plan of Treatment Upcoming Encounters Date Type Department Care Team (Late st Contact Info) Description 07/20/2025 10:45 AM EDT Office Visit [facility], A Department of [address] [phone] Cliff Greenfield MD [address] [place] [address], [address] [place] [address] 08/01/2025 2:00 PM EDT Office Visit [facility] Neurology, A Department of [address], [address], [address] [place] [phone] Trice Stinson MD [address] [place] [address] 101, 102, 103 [place] [address] 08/07/2025 11:00 AM EDT Office Visit [facility] [address] [facility] 170 [place] [address] Isidro Woodall, DO [address] [facility] 170 [place] [address] 08/07/2025 11:00 AM EDT Appointment [facility] [address] [place] [address] 08/21/2025 2:30 PM EDT Appointment [facility] [address] [place] [address] 08/22/2025 2:30 PM EDT Office Visit [facility] [address] [address] Isidro Woodall, DO [address] [address] 08/23/2025 1:30 PM EDT Office Visit [facility] [address] [phone] Jesenia Peng, FUEL YARD OPERATOR-WINDSMITH [address] [facility], [address] [place] [address] 09/26/2025 1:30 PM EST Office Visit [facility], A Department of [address] [address] Neli Clemente [place] MPH [address] [place] [phone] 10/13/2025 11:45 AM EST Office Visit [facility] Cardiology [address] [place] [phone] Duong Johnson, DO [address] [place] [address], [address] [place] [address] 10/13/2025 3:15 PM EST Office Visit [facility], A Department of [facility] [address] [facility] 103 [place] [address] Ines Uribe PA-C [address] [facility], [address] [place] [address] 11/14/2025 12:20 PM EST Office Visit [facility] Rehabilitation [address] [facility] [address] [place] [phone] Ofelia Pierce APRN-WINDSMITH [address] [facility] [address] [place] [address] 11/21/2025 12:30 PM EST Appointment [facility] [place] - Mammography [address] [place] [phone] documented as of this encounter Goals Goal Patient Goal Type Associated Problems Recent Progress Patient-Stated? Author Discharge with home care General Yes Carmen Yañez, RN Note: Evaluation of progress towards goal: [facility] home with [facility] documented as of this encounter Visit Diagnoses Not on filedocumented in this encounter Additional Health Concerns Assessment Noted Time PHQ-9 Depression Total Score: 0 05/17/20 25 10:34 AM EDT A Body Mass Index follow-up plan has been documented for the patient 02/23/2025 12:24 PM EDT documented as of this encounter Care Teams Log Raft Worker Relationship Specialty Start Date End Date Jesenia Peng, FUEL YARD OPERATOR-WINDSMITH [address] [facility], [address] [place] [address] PCP - General 03/19/15 documented as of this encounter
--- OUTSIDE RECORDS SUMMARY | 2025-07-12 12:14 | XMS_ITS | Encounter Summary ---
Author Organization [employer] Address [facility] [id number] [address] [place] [address] Care Team Providers Care Coding Director Name Role Phone Alexitisha Jesenia L APRNJONEL Primary Care Provider Reason for Referral * Diagnostic Imaging (Routine) - Pending Review Specialty Diagnoses / Procedures Referred By Contac t Referred To Contact Diagnoses Cervical radiculopathy Procedures Fluoroscopy AMB cervical epidural Ofelia Pierce APRN-CNP [address] [place] [address] Phone: tel: fax: Referral ID Status Reason Start Date Expiration Date V isits Requested Visits Authorized [id number] Pending Review 06/29/2025 06/29/2026 1 1 * Diagnostic Imaging (Routine) - Pending Review Specialty Diagnoses / Procedures Referred By Contac t Referred To Contact Diagnoses Cervical radiculopathy Procedures Fluoroscopy AMB cervical epidural Ofelia Pierce APRN-CNP [address] [place] [address] Phone: tel: fax: Referral ID Status Reason Start Date Expiration Date V isits Requested Visits Authorized [id number] Pending Review 06/29/2025 06/29/2026 1 1 Encounter Details Date Type Department Care Team (Late st Contact Info) Description 06/29/2025 Telephone [facility] [address] [place] [phone] Josselyn Altman CMA Social History Tobacco Use Types Packs/Day Years [...] encounter Miscellaneous Notes * Telephone Encounter - Josselyn Altman CMA - 06/29/2025 11:32 AM EDT Patient had a visit 04/25/2025 with og Gilbert notes patient will call if ready for injections, patient's daughter called informed that mom is indeed ready, can an order please be placed? Thanks! * Telephone Encounter - Rita Moya CMA - 06/29/2025 11:32 AM EDT Order placed. Please call to schedule. Thank you! Previous Evaluation and Treatment Diagnostics: MRI Cervical 12/2024 Medications tried: OTC, NSAIDS, Muscle Relaxants, and Narcotics Home Exercise Program: Guided by physician Physical Therapy: daily hep and stretches Transit Mixer Driver: No Pain Management: Injections & Medication Prior Surgery: None Pain Score: 9/10 No blood thinner No cardiac device Not diabetic Iodine Allergies: Iodinated Contrast Media * Telephone Encounter - Chary Tamayo CMA - 06/29/2025 11:32 AM EDT Left patient a voicemail to return call to schedule repeat BL C3-4 Cervical TFESI injection with Dr. Woodall, and 3 month follow-up with Ofelia Pierce NP. *separate into 2 appointments documented in this encounter Plan of Treatment Upcoming Encounters Date Type Department Care Team (Late st Contact Info) Description 07/20/2025 10:45 AM EDT Office Visit [facility], Department of [address] [phone] Cliff Greenfield MD [address] [place] [address], [address] [place] [address] 08/01/2025 2:00 PM EDT Office Visit [facility] Neurology, Department of [address], [address], [address] [place] [phone] Trice Stinson MD [address] [place] [address] 101, 102, 103 [place] [address] 08/07/2025 11:00 AM EDT Office Visit [facility]icians Physical Medicine and Rehabilitation [address] [phone] Isidro Woodall DO [address] [address] 08/07/2025 11:00 AM EDT Appointment [facility] [address] [place] [address] 08/21/2025 2:30 PM EDT Appointment [facility] [address] [place] [address] 08/22/2025 2:30 PM EDT Office Visit [facility] [address] [facility] [address] [place] [address] Isidro Woodall, DO [address] [facility] 170 [place] [address] 08/23/2025 1:30 PM EDT Office Visit [facility] [address] [facility] 170 [place] [phone] Jesenia Peng, FAMILY COURT JUSTICE-WELL LOGGER [address] [facility], [address] [place] [address] 09/26/2025 1:30 PM EST Office Visit [facility], A Department of [address] [phone] Neli Clemente MD MPH [address] [place] [phone] 10/13/2025 11:45 AM EST Office Visit [facility] Cardiology [address] [place] [phone] Duong Johnson, [address] [place] [address], [address] [place] [address] 10/13/2025 3:15 PM EST Office Visit [facility], A Department of [address] [phone] Ines Uribe PA-C [address] [facility], [address] [place] [address] 11/14/2025 12:20 PM EST Office Visit [facility] [address] [facility] [address] [place] [phone] Ofelia Pierce V, FAMILY COURT JUSTICE-WELL LOGGER [address] [facility] [address] [place] [address] 11/21/2025 12:30 PM EST Appointment [facility] [address] [place] [address] Scheduled Orders Name Type Priority Associated Diagnoses Orde r Schedule Fluoroscopy AMB cervical epidural Imaging Routine Cervical radiculopathy Expected: 06/29/2025, Expires: 06/29/2026 Fluoroscopy AMB cervical epidural Imaging Routine Cervical radiculopathy Expected: 06/29/2025, Expires: 06/29/2026 documented as of this encounter Goals Goal Patient Goal Type Associated Problems Recent Progress Patient-Stated? Author Discharge with home care General Yes Carmen Yañez, RN Note: Evaluation of progress towards goal: [facility] documented as of this encounter Visit Diagnoses Diagnosis Cervical radiculopathy- Primary Brachial neuritis or radiculitis nos documented in this encounter Additional Health Concerns Assessment Noted Time PHQ-9 Depression Total Score: 0 05/17/20 25 10:34 AM EDT A Body Mass Index follow-up plan has been documented for the patient 02/23/2025 12:24 PM EDT documented as of this encounter Care Teams Coding Director Relationship Specialty Start Date End Date Jesenia Peng, FAMILY COURT JUSTICE-WELL LOGGER [address] [facility], [address] [place] [address] PCP - General 03/19/15 documented as of this encounter
--- OUTSIDE RECORDS SUMMARY | 2025-07-12 12:14 | XMS_ITS | Encounter Summary ---
Author Organization [facility] tem Address [id number] [address] [place] [address] Care Team Providers Care Billing Representative Name Role Phone Jesenia Peng UG DESIGNER-CELL COVERER Primary Care Provider Encounter Details Date Type Department Care Team (Late st Contact Info) Description 06/29/2025 Telephone [facility], A Department of [facility] [address] [place] [phone] Aiden Jones CMA Social History Tobacco Use Types Packs/Day [...] encounter Miscellaneous Notes * Telephone Encounter - Aiden Jones CMA - 06/29/2025 1:38 PM EDT Patient called stating she is having terrible dysphagia. Patient got a fluoroscopy swallow study yesterday and it was normal. Patient wants EGD with dilation. Patient has not been seen since 04/2024.Scheduled appointment on 10/13 with Ines. * Telephone Encounter - Noemy Low PA-C - 06/29/2025 1:38 PM EDT Will leave for Ines to review upon her return. If she is unable to tolerate any oral intake, I would like her to present to [facility] ER. Take your time when eating, chew food well, alternate bite of solid with liquid and stick with softer food until procedure. If you develop any feeling of food getting stuck that does not dislodge +/-unable to tolerate oral secretions, recommend evaluation in ER. Prior fluoroscopy swallow also showed prominent bone spurs which could be contributing to her dysphagia. Have her continue her Protonix 40 mg daily, 20-30 minutes prior to breakfast at this time. * Telephone Encounter - Ines Uribe PA-C - 06/29/2025 1:38 PM EDT Staff, please verify that there has been no medical changes over the past year since patient was last seen in the medications are up-to-date in our system. Additionally verify that she did have some improvement in her trouble swallowing after dilation last summer. Dr. Greenfield: Are you okay with EGD for dilation with office visit to follow? Next available office visit with me is in October which patient is already scheduled for. Thank you. * Telephone Encounter - Cliff Greenfield MD - 06/29/2025 1:38 PM EDT I reviewed previous results. There was no identifiable stricture and post- dilation inspection showed no mucosal disruption. This would suggest that her swallowing problem may well be due to somethingother than esophageal stricture. You can put her in for an office visit with me, okay to use a 10:45 a.m. spot. * Telephone Encounter - Daksha Lechuga RN - 06/29/2025 1:38 PM EDT Called and left a detailed VMM for patient with my call back number. Also sent a [employer] message. * Telephone Encounter - Daksha Lechuga RN - 06/29/2025 1:38 PM EDT Patient returns call. Scheduled OV with Dr. Greenfield 9.11.25 @ 10:45. documented in this encounter Plan of Treatment Upcoming Encounters Date Type Department Care Team (Late st Contact Info) Description 07/20/2025 10:45 AM EDT Office Visit [facility], A Department of [address] [place] [phone] Cliff Greenfield MD [address] [place] [address], [address] [place] [address] 08/01/2025 2:00 PM EDT Office Visit [facility] Neurology, A Department of [address] 101, [address], [address] [place] [phone] Trice Stinson MD [address] [place] [address] 101, 102, 103 [place], [place] [phone] 08/07/2025 11:00 AM EDT Office Visit [facility] [address] [facility] [address] [place] [address] Isidro Woodall, DO [address] [facility] 170 [place] [address] 08/07/2025 11:00 AM EDT Appointment [facility] Radiology [address] [place] [address] 08/21/2025 2:30 PM EDT Appointment [facility] [address] [place] [address] 08/22/2025 2:30 PM EDT Office Visit [facility] [address] [address] Isidro Woodall, DO [address] [address] 08/23/2025 1:30 PM EDT Office Visit [facility] [address] [facility] [address] [place] [phone] Jesenia Peng, UG DESIGNER-CELL COVERER [address] [facility], [address] [place] [address] 09/26/2025 1:30 PM EST Office Visit [facility], A Department of [address] [address] [place] [address] [place] [address] 10/13/2025 11:45 AM EST Office Visit [facility] Cardiology [address] [place] [address] Duong Johnson, DO [address] [facility], [address] [place] [address] 10/13/2025 3:15 PM EST Office Visit [facility], A Department of [facility] [address] [facility] 103 [place] [address] Ines Uribe, ALEXC [address] [place] [address], [address] [place] [address] 11/14/2025 12:20 PM EST Office Visit [facility] [address] [facility] [address] [place] [phone] Ofelia Pierce APRN-CELL COVERER [address] [facility] [address] [place] [address] 11/21/2025 12:30 PM EST Appointment [facility] [place] [facility] M[facility]ography [address] [place] [address] documented as of this encounter Goals [...] documented as of this encounter Care Teams Billing Representative Relationship Specialty Start Date End Date Jesenia Peng, UG DESIGNER-CELL COVERER [address] [facility], [address] [place] [address] PCP - General 03/19/15 documented as of this encounter
--- OUTSIDE RECORDS SUMMARY | 2025-07-12 12:14 | XMS_ITS | Encounter Summary ---
Author Organization [facility] tem Address [facility] [place] [id number] [address] [place] [address] Care Team Providers Care Top Steep Tender Name Role Phone Jesenia Peng SURGEON PARTNER-SALES CONTRACTS ANALYST Primary Care Provider Encounter Details Date Type Department Care Team (Late st Contact Info) Description 07/03/2025 Orders Only [facility], A Department of [address] [place] [address] Ines Uribe, MAGAN [address] [place] [address], [address] [place] [address] Social History Tobacco Use Types Packs/Day Years [...] on file documented as of this encounter Progress Notes * Ines Uribe PA-C - 07/03/2025 8:05 AM EDT . Ines Uribe PA-C 07/03/25 0805 documented in this encounter Plan of Treatment Upcoming Encounters Date Type Department Care Team (Late st Contact Info) Description 07/20/2025 10:45 AM EDT Office Visit [facility], A Department of [address] [place] [address] Cliff Greenfield MD [address] [place] [address], [address] [place] [address] 08/01/2025 2:00 PM EDT Office Visit [facility] Neurology, A Department of [address] 101, 102, [address] [place] [address] Trice Stinson MD [address] [place] [address] 101, 102, 103 [place] [address] 08/07/2025 11:00 AM EDT Office Visit [facility] [address] [facility] 170 [place] [address] Isidro Woodall DO [address] [facility] 170 [place] [address] 08/07/2025 11:00 AM EDT Appointment [facility] Radiology [address] [place] [address] 08/21/2025 2:30 PM EDT Appointment [facility] [address] [place] [address] 08/22/2025 2:30 PM EDT Office Visit [facility] [address] [facility] 170 [place] [address] Isidro Woodall, DO 28[address] [facility] 170 [place] [address] 08/23/2025 1:30 PM EDT Office Visit [facility] [address] [facility] [address] [place] [address] Jesenia Peng, SURGEON PARTNER-SALES CONTRACTS ANALYST [address] [facility], [address] [place] [address] 09/26/2025 1:30 PM EST Office Visit [facility], A Department of [address] [phone] Neli Clemente MD MPH [address] [place] [phone] 10/13/2025 11:45 AM EST Office Visit [facility] Cardiology [address] [place] [address] Duong Johnson, [address] [place] [address], [address] [place] [address] 10/13/2025 3:15 PM EST Office Visit [facility], A Department of [address] [phone] Ines Uribe PA-C [address] [place] [address], [address] [place] [address] 11/14/2025 12:20 PM EST Office Visit [facility] [address] [facility] [address] [place] [address] Ofelia Pierce V, SURGEON PARTNER-SALES CONTRACTS ANALYST [address] [facility] [address] [place] [address] 11/21/2025 12:30 PM EST Appointment [facility] [place] [facility] [address] [place] [address] documented as of this encounter Goals Goal [...] documented as of this encounter Care Teams Top Steep Tender Relationship Specialty Start Date End Date Jesenia Peng, SURGEON PARTNER-SALES CONTRACTS ANALYST [address] [facility], [address] [place] [address] PCP - General 03/19/15 documented as of this encounter
--- OUTSIDE RECORDS SUMMARY | 2025-07-12 12:14 | XMS_ITS | Encounter Summary ---
Author Organization [facility] tem Address [id number] [address] [place] [address] Care Team Providers Care Crematory Operator Name Role Phone Jesenia Peng WEATHER CLERK-RN UNIT MANAGER Primary Care Provider Encounter Details Date Type Department Care Team (Late st Contact Info) Description 06/27/2025 Results Follow-Up [facility] Rheumatology, A Department of [address] [address] Neli Clemente MD MPH [address] [place] [phone] X-ray spine lumbar 2 or 3 views Social History Tobacco Use Types Packs/Day Years [...] Description 07/20/2025 10:45 AM EDT Office Visit [facility], A Department of [address] [place] [address] Cliff Greenfield MD [address] [place] [address], [address] [place] [address] 08/01/2025 2:00 PM EDT Office Visit [facility] Neurology, A Department of [address] 101, 102, [address] [place] [phone] Trice Stinson MD [address] [place] [address] 101, 102, 103 [place] [address] 08/07/2025 11:00 AM EDT Office Visit [facility] [address] [facility] 170 [place] [address] Isidro Woodall DO [address] [facility] 170 [place] [address] 08/07/2025 11:00 AM EDT Appointment [facility] Radiology [address] [place] [address] 08/21/2025 2:30 PM EDT Appointment [facility] [address] [place] [address] 08/22/2025 2:30 PM EDT Office Visit [facility] [address] [facility] [address] [place] [address] Isidro Woodall, DO [address] [facility] [address] [place] [address] 08/23/2025 1:30 PM EDT Office Visit [facility] [address] [facility] 170 [place] [address] Jesenia Peng, WEATHER CLERK-RN UNIT MANAGER [address] [facility], [address] [place] [address] 09/26/2025 1:30 PM EST Office Visit [facility], A Department of [address] [place] [phone] Neli Clemente MD MPH [address] [place] [phone] 10/13/2025 11:45 AM EST Office Visit [facility] Cardiology [address] [place] [address] [address] [place] [phone] Duong Johnson, [address] [place] [address], [address] [place] [address] 10/13/2025 3:15 PM EST Office Visit [facility], A Department of [address] [place] [address] Ines Uribe, ALEXC [address] [place] [address], [address] [place] [address] 11/14/2025 12:20 PM EST Office Visit [facility] [address] [facility] [address] [place] [phone] Ofelia Pierce V, WEATHER CLERK-RN UNIT MANAGER [address] [facility] [place] [address] 11/21/2025 12:30 PM EST Appointment [facility] [place] - Mammography [address] [place] [address] documented as of this encounter [...] documented as of this encounter Care Teams Crematory Operator Relationship Specialty Start Date End Date Jesenia Peng, RADHA-RN UNIT MANAGER [address] [place] [address], [address] [place] [address] PCP - General 03/19/15 documented as of this encounter
--- OUTSIDE RECORDS SUMMARY | 2025-07-12 12:14 | XMS_ITS | Encounter Summary ---
Author Organization [facility] tem Address [facility][id number] [address] [place] [address] Care Team Providers Care Ecommerce Marketing Manager Name Role Phone Jesenia Peng BROKER-CASHIER AND WAITER/WAITRESS Primary Care Provider Encounter Details Date Type Department Care Team (Latest Contact Info) Description 06/09/2025 Results Follow-Up [facility] Rheumatology, A Department of [address] [address] Neli Clemente MD MPH [address] [place] [phone] C-reactive protein, Erythrocyte Sedimentation Rate (ESR), Liver panel, Additional followed-up results: 2 Social History Tobacco Use Types Packs/Day Years [...] Description 07/20/2025 10:45 AM EDT Office Visit [facility], A Department of [address] [place] [address] Cliff Greenfield MD [address] [place] [address], [address] [place] [address] 08/01/2025 2:00 PM EDT Office Visit [facility] Neurology, Department of [address] 101, [address], 103 [place] [address] Trice Stinson MD [address] [place] [address] 101, 102, 103 [place] [address] 08/07/2025 11:00 AM EDT Office Visit [facility] [address] [facility] 170 [place] [address] Isidro Woodall DO [address] [facility] [address] [place] [address] 08/07/2025 11:00 AM EDT Appointment [facility] Radiology [address] [place] [address] 08/21/2025 2:30 PM EDT Appointment [facility] [address] [place] [address] 08/22/2025 2:30 PM EDT Office Visit [facility] [address] [facility] [address] [place] [address] Isidro Woodall DO [address] [facility] [address] [place] [address] 08/23/2025 1:30 PM EDT Office Visit [facility] [address] [facility] 170 [place] [phone] Jesenia Peng, BROKER-CASHIER AND WAITER/WAITRESS [address] [facility], [address] [place] [address] 09/26/2025 1:30 PM EST Office Visit [facility], A Department of [address] [phone] Neli Clemente MD MPH [address] [place] [phone] 10/13/2025 11:45 AM EST Office Visit [facility] Cardiology [address] [place] [phone] Duong Johnson, [address] [place] [address], [address] [place] [address] 10/13/2025 3:15 PM EST Office Visit [facility], A Department of [address] [phone] Ines Uribe PA-C [address] [place] [address], [address] [place], [place] [address] 11/14/2025 12:20 PM EST Office Visit [facility] [address] [facility] [address] [place] [phone] Ofelia Pierce V, BROKER-CASHIER AND WAITER/WAITRESS [address] [facility] [place] [address] 11/21/2025 12:30 PM EST Appointment [facility] [place] - Mammography [address] [place] [address] documented as of this encounter [...] documented as of this encounter Care Teams Ecommerce Marketing Manager Relationship Specialty Start Date End Date Jesenia Peng APRN-CASHIER AND WAITER/WAITRESS [address] [place] [address], [address] [place] [address] PCP - General 03/19/15 documented as of this encounter
--- OUTSIDE RECORDS SUMMARY | 2025-07-12 12:14 | XMS_ITS | Encounter Summary ---
Author Organization [facility] tem Address [id number] [address] [place] [address] Care Team Providers Care Chili Pepper Grinder Name Role Phone Jesenia Peng SHOULDER BONER-CHEMISTRY LABORATORY TECHNICIAN Primary Care Provider Reason for Visit * Reason Comments Med Refill Encounter Details Date Type Department Care Team (Late st Contact Info) Description 05/18/2025 Refill [facility] Rheumatology [address] [place] [address] Neli Clemente MD MPH [address] [place] [phone] Neck pain; Muscle tension pain Social History Tobacco Use Types Packs/Day Years [...] 07/20/2025 10:45 AM EDT Office Visit [facility], A Department of [address] [place] [address] [place] [address] [place] [address], [address] [place] [address] 08/01/2025 2:00 PM EDT Office Visit [facility] Neurology, A Department of [address] 101, 102, [address] [place] [phone] Trice Stinson MD [address] [place] [address] 101, 102, 103 [place] [address] 08/07/2025 11:00 AM EDT Office Visit [facility] [address] [facility] [address] [place] [address] Isidro Woodall, DO [address] [facility] [address] [place] [address] 08/07/2025 11:00 AM EDT Appointment [facility] Radiology [address] [place] [address] 08/21/2025 2:30 PM EDT Appointment [facility] [address] [facility] [address] 08/22/2025 2:30 PM EDT Office Visit [facility] [address] [facility] [address] [place] [address] Isidro Woodall, DO [address] [place] [address] [place] [address] 08/23/2025 1:30 PM EDT Office Visit [facility] [address] [facility] [address] [place] [phone] Jesenia Peng, SHOULDER BONER-CHEMISTRY LABORATORY TECHNICIAN [address] [facility], [address] [place] [address] 09/26/2025 1:30 PM EST Office Visit [facility], A Department of [address] [place] [phone] Neli Clemente MD MPH [address] [place] [phone] 10/13/2025 11:45 AM EST Office Visit [facility] Cardiology [address] [place] [address] 202 [place] [address] Duong Johnson, [address] [place] [address], [address] [place] [address] 10/13/2025 3:15 PM EST [facility], A Department of [address] [place] [phone] Ines Uribe, PA-C [address] [place] [address], [address] [place] [address] 11/14/2025 12:20 PM EST Office Visit [facility] [address] [facility] [address] [place] [phone] Ofelia Pierce V, SHOULDER BONER-CHEMISTRY LABORATORY TECHNICIAN [address] [facility] [address] [place] [address] 11/21/2025 12:30 PM EST Appointment [facility] [place] - Mammography [address] [place] [address] documented as of this encounter Goals Goal Patient Goal Type Associated Problems Recent Progress Patient-Stated? Author Discharge with home care General Yes Carmen Yañez, RN Note: Evaluation of progress towards goal: Discharge home with & [facility] documented as of this encounter Visit Diagnoses Diagnosis Neck pain Cervicalgia Muscle tension pain documented in this encounter Additional Health Concerns Infection Onset Date Last Indicated Resolved Time COVID-19 Rule-Out 06/27/2025 06/27/2025 06/27/2025 2:03 PM EDT Assessment Noted Time PHQ-9 Depression Total Score: 0 05/17/20 25 10:34 AM EDT A Body Mass Index follow-up plan has been documented for the patient 02/23/2025 12:24 PM EDT documented as of this encounter Care Teams Chili Pepper Grinder Relationship Specialty Start Date End Date Jesenia Peng APRN-CHEMISTRY LABORATORY TECHNICIAN [address] [place] [address], [address] [place] [address] PCP - General 03/19/15 documented as of this encounter
--- OUTSIDE RECORDS SUMMARY | 2025-07-12 12:14 | XMS_ITS | Encounter Summary ---
Author Organization [facility] Address [id number] [address] [place] [address] Care Team Providers Care Video Game Programmer Name Role Phone Jesenia Peng SHIP'S ENGINEER-LEARNING AND DEVELOPMENT OFFICER Primary Care Provider Encounter Details Date Type Department Care Team (Late st Contact Info) Description 06/05/2025 Orders Only [facility] [address] [place] [phone] Anamaria Perkins CMA Weight loss (Primary Dx); Hyperbilirubinemia; Iron deficiency anemia, unspecified iron deficiency anemia type Social History Tobacco Use Types Packs/Day Years [...] Description 07/20/2025 10:45 AM EDT Office Visit [facility], A Department of [facility] [address] [place] [address] [address] [facility] [place] [address] Cliff Greenfield MD [address] [place] [address], [address] [place] [address] 08/01/2025 2:00 PM EDT Office Visit [facility] Neurology, A Department of [address] 101, [address], 103 [place] [phone] Trice Stinson MD [address] [place] [address] 101, 102, 103 [place] [address] 08/07/2025 11:00 AM EDT Office Visit [facility] [address] [address] Isidro Woodall DO [address] [address] 08/07/2025 11:00 AM EDT Appointment [facility] Radiology [address] [place] [address] 08/21/2025 2:30 PM EDT Appointment [facility] [address] [place] [address] 08/22/2025 2:30 PM EDT Office Visit [facility] [address] [facility] 170 [place] [address] Isidro Woodall, DO [address] [facility] 170 [place] [address] 08/23/2025 1:30 PM EDT Office Visit [facility] [address] [facility] [address] [place] [phone] Jesenia Peng, SHIP'S ENGINEER-LEARNING AND DEVELOPMENT OFFICER [address] [facility], [address] [place] [address] 09/26/2025 1:30 PM EST Office Visit [facility], A Department of [address] [place] [address] Neli Clemente MD MPH [address] [place] [phone] 10/13/2025 11:45 AM EST Office Visit [facility] Cardiology [address] [place] [address] 202 [place] [address] Duong Johnson, DO [address] [place] [address], [address] [place] [address] 10/13/2025 3:15 PM EST Office Visit [facility], A Department of [address] [place] [address] Ines Uribe, PA-C [address] [place] [address], [address] [place] [address] 11/14/2025 12:20 PM EST Office Visit [facility] [address] [facility] 170 [place] [phone] Ofelia Pierce V, SHIP'S ENGINEER-LEARNING AND DEVELOPMENT OFFICER [address] [facility] [address] [place] [address] 11/21/2025 12:30 PM EST [facility]ment [facility] [id number] [place] [phone] documented as of this encounter Goals Goal Patient Goal Type Associated Problems Recent Progress Patient-Stated? Author Discharge with home care General Yes Carmen Yañez, RN Note: Evaluation of progress towards goal: Discharge home with [facility] documented as of this encounter Results * Haptoglobin (06/08/2025 8:52 AM EDT) HAPTOGLOBIN 215 32 - 228 mg/dL 06/08/2025 12:[address] [facility] Blood Venous blood / Unknown Venipuncture / Unknown 06/08/2025 8:52 AM EDT 06/08/2025 8:52 AM EDT us Jesenia LAFLEUR LAB BLOOD ORDERABLES Fi nal Result [facility] [address] [place] [address], * Clinical Pathology Blood Smear Review (06/08/2025 8:52 AM EDT) Case Report Clinical Pathology Report Case: [id number] Authorizing Provider: CIARRA Osei Collected: 06/08/2025 0852 [facility] Received: 06/08/[address] [place] [address] Pathologist: Rinku Abrams MD Specimen: Blood, Venous 06/09/2025 2:[address] [facility] Final Diagnosis No significant WBC, RBC or platelet abnormality is identified. No blasts are identified. The patient previous CBC history is noted. 06/09/2025 2:[address] [facility] at 1428 EDT Embedded Images 06/09/2025 2:[address] [facility] Blood Venous blood / Unknown Venipuncture / Unknown 06/08/2025 8:52 AM EDT 06/08/2025 8:52 AM EDT us Jesenia Truongt SHIP'S ENGINEER-LEARNING AND DEVELOPMENT OFFICER LAB BLOOD ORDERABLES Fi nal Result [facility] [address] [place] [address], [place] [phone] * LDL cholesterol, direct (06/08/2025 8:52 AM EDT) DIRECT LDL 60 <=130 mg/dL 06/08/2025 12:[address] [facility] Comment: LDL <100 mg/dL - Desirable LDL 130-159 mg/dL - Borderline High Risk LDL >160 mg/dL - High Risk Blood Venous blood / Unknown Venipuncture / Unknown 06/08/2025 8:52 AM EDT 06/08/2025 8:52 AM EDT Jesenia Yogesh Danish SHIP'S ENGINEER-LEARNING AND DEVELOPMENT OFFICER LAB BLOOD ORDERABLES Fi nal Result [facility] [address] [place] [address], [place] [phone] * Basic Metabolic Panel (06/08/2025 8:52 AM EDT) SODIUM 141 134 - 146 mmol/L 06/08/2025 12:[address] [facility] POTASSIUM 4.9 3.5 - 5.0 mmol/L 06/08/2025 12:[address] [facility] CHLORIDE 100 98 - 109 mmol/L 06/08/2025 12:[address] [facility] CARBON DIOXIDE 32 22 - 32 mmol/L 06/08/2025 12:[address] [facility] ANION GAP 9 5 - 15 mmol/L 06/08/2025 12:[address] [facility] BLOOD UREA NITROGEN 20 5 - 27 mg/dL 06/08/2025 12:[address] [facility] CREATININE 0.60 0.40 - 1.00 mg/dL 06/08/2025 12:[address] [facility] Comment:METHOD TRACEABLE TO IDMS STANDARD GLUCOSE 88 65 - 99 mg/dL 06/08/2025 12:[address] [facility] CALCIUM 9.8 8.5 - 10.5 mg/dL 06/08/2025 12:[address] [facility] EGFR Non-Race Dependent >90 >=60 ml/min/1.7 3sq.m 06/08/2025 12:[address] [facility] Comment: Reported eGFR is based on the CKD-EPI 2020 equation that does not use a race coefficient. Blood Venous blood / Unknown Venipuncture / Unknown 06/08/2025 8:52 AM EDT 06/08/2025 8:52 AM EDT Jesenia LAFLEUR LAB BLOOD ORDERABLES Fi nal Result [facility] [address] [place] [address], documented in this encounter Visit Diagnoses Diagnosis Weight loss- Primary Loss of weight Hyperbilirubinemia Disorders of bilirubin excretion Iron deficiency anemia, unspecified iron deficiency anemia type documented in this encounter Additional Health Concerns Infection Onset Date Last Indicated Resolved Time COVID-19 Rule-Out 06/27/2025 06/27/2025 06/27/2025 2:03 PM EDT Assessment Noted Time PHQ-9 Depression Total Score: 0 05/17/20 25 10:34 AM EDT A Body Mass Index follow-up plan has been documented for the patient 02/23/2025 12:24 PM EDT documented as of this encounter Care Teams Video Game Programmer Relationship Specialty Start Date End Date Jesenia Peng APRN-CNP [facility], [address] [place] [address] PCP - General 03/19/15 documented as of this encounter
--- OUTSIDE RECORDS SUMMARY | 2025-07-12 12:14 | XMS_ITS | Encounter Summary ---
Author Organization [facility] Address [id number] [address] [place] [address] Care Team Providers Care Software Engineering Supervisor Name Role Phone Jesenia Peng JOURNEYMAN PIPE FITTER-FUR STORAGE CLERK Primary Care Provider Encounter Details Date Type Department Care Team (Late st Contact Info) Description 06/29/2025 [facility]phone [facility] Department of [facility] [address] [address] Brenna Case CMA Social History Tobacco Use Types Packs/Day [...] encounter Miscellaneous Notes * Telephone Encounter - Brenna Case CMA - 06/29/2025 11:32 AM EDT Beena's daughter, Farida, called and stated that they were supposed to get help to get in to be seen at [facility] at Beena's last appointment. Farida stated that Beena is in so much painto the point that she wants to take herself out . She said that [facility] is not going to be able to get her in until the end of July or possibly August. Farida said that she does not think her mom will make it that long . Farida said that it would be best to call Beena's [place]. They would like to know if there charan way that they could get in [facility] earlier? Call her [place] at: [phone] Please advise. * Telephone Encounter - Neli Clemente MD MPH - 06/29/2025 11:32 AM EDT Thank you for letting me know. I have messaged the providers at the PM&R office at [facility] to see if there are any earlier openings or cancellations. I believe that Beena's usual provider (Liza) isn't in the office today, so I may not hear back from her until tomorrow. I did try to call the patient's ([place]) at the provided phone number but [facility] I also tried to call the patient's daughter (Farida) and I was routed to [facility] as well. At some point today, please try to call either her daughter or and update them of the aboveinformation. Neli Clemente MD, MPH * Telephone Encounter - Brenna Case CMA - 06/29/2025 11:32 AM EDT Have attempted to reach out to patient's and daughter of the past week with no success. Will try to follow up next week. Providing an update. * Telephone Encounter - Neli Clemente MD MPH - 06/29/2025 11:32 AM EDT Thank you for following up on this. I actually ended up talking to the patient's on 07/03/25(see separate telephone encounter). I communicated directly with the patient's Neurology provider as it seemed that the patient's symptoms were more worrisome for worsening of her neurological condition. Their office should be in communication with the patient and her family. No additional action needs to be taken from our office at this time. Neli Clemente MD, MPH * Telephone Encounter - Brenna Case CMA - 06/29/2025 11:32 AM EDT Sorry about that. Thank you for the update. documented in this encounter Plan of Treatment Upcoming Encounters Date Type Department Care Team (Late st Contact Info) Description 07/20/2025 10:45 AM EDT Office Visit [facility], A Department of [address] [address] Cliff Greenfield MD [address] [place] [address], [address] [place] [address] 08/01/2025 2:00 PM EDT Office Visit [facility], A Department of [address], [address] [place] [address] Trice Stinson MD [address] [place] [address] 101, 102, 103 [place] [address] 08/07/2025 11:00 AM EDT Office Visit [facility] [address] [facility] 170 [place] [address] Isidro Woodall, DO [address] [facility] 170 [place] [address] 08/07/2025 11:00 AM EDT Appointment [facility] [address] [place] [address] 08/21/2025 2:30 PM EDT Appointment [facility] [address] [place] [address] 08/22/2025 2:30 PM EDT Office Visit [facility] [address] [facility] [address] [place] [address] Isidro Woodall, DO [address] [facility] [address] [place] [address] 08/23/2025 1:30 PM EDT Office Visit [facility] [address] [facility] [address] [place] [address] Jesenia Peng, JOURNEYMAN PIPE FITTER-FUR STORAGE CLERK [address] [facility], [address] [place] [address] 09/26/2025 1:30 PM EST Office Visit [facility], A Department of [address] [address] Neli Clemente MD MPH [address] [place] [address] 10/13/2025 11:45 AM EST Office Visit [facility] Cardiology [address] [place] [phone] Duong Johnson, DO [address] [place] [address], [address] [place] [address] 10/13/2025 3:15 PM EST Office Visit [facility], A Department of [address] [place] [address] Ines Uribe PA-C [address] [facility], [address] [place] [address] 11/14/2025 12:20 PM EST Office Visit [facility] [address] [facility] [address] [place] [address] Ofelia Pierce APRN-FUR STORAGE CLERK [address] [facility] [address] [place] [address] 11/21/2025 12:30 PM EST Appointment [facility] - Mammography [address] [place] [address] documented as of this encounter Goals Goal [...] documented as of this encounter Care Teams Software Engineering Supervisor Relationship Specialty Start Date End Date Jesenia Peng, JOURNEYMAN PIPE FITTER-FUR STORAGE CLERK [address] [facility], [address] [place] [address] PCP - General 03/19/15 documented as of this encounter
--- OUTSIDE RECORDS SUMMARY | 2025-07-12 12:14 | XMS_ITS | Clinical Summary ---
Author Organization [facility] Address [address] [place] [address] Care Team Providers Care Teaching Assistant Name Role Phone Unavailable Primary Care Provider Unavailabl e Social History Tobacco Use Types Packs/Day Years Used Date Smoking Tobacco: Never Assessed [place] Safety & Environment Answer Date Rec orded Fear of Current or Ex-Partner Not on file Emotionally Abused Not on file 12/31/2023 Physically Abused Not on file 12/31/2023 Sexually Abused Not on file 12/31/2023 Physically or Sexually Abused Not on file Comments Unknown Sex and Gender Information Value Date Recorded Sex Assigned at Not on file Legal Sex Female 10:21 PM EDT Gender Identity Not on file Sexual Orientation Not on file Plan of Treatment Not on file
--- OUTSIDE RECORDS SUMMARY | 2025-07-12 12:14 | XMS_ITS | Encounter Summary ---
Author Organization [facility] tem Address [id number] [address] [place] [address] Care Team Providers Care Press Helper Name Role Phone Jesenia Peng DIRECTOR ADVANCED-CHILD CARE LEAD TEACHER Primary Care Provider Encounter Details Date Type Department Care Team (Late st Contact Info) Description 07/03/20[facility] Department [facility] [address] [address] Kendy Navarrete RMA Social History Tobacco Use Types Packs/Day Years [...] encounter Miscellaneous Notes * Telephone Encounter - CARLOS Guerrero - 07/03/2025 12:50 PM EDT Patient called in asking if Dr. Clemente could change medication from Methotrexate. [place] states patient is in a lot of pain from having Parkinson's. [place] states he just want his to get some relief * Telephone Encounter - Neli Clemente MD MPH - 07/03/2025 12:50 PM EDT I was able to call and talk to the patient's and the patient herself. It seems that she hashad a continued increase in generalized diffuse pain. She notes discomfort in the joints but also in the muscle and even the skin. Her notes that her uncontrolled movements (tardive dyskinesia) have increased in severity and frequency as well. They note that the PM&R office will not be able to get them back in until about July for trigger point injections. And MTX is still being continued from our standpoint for assistance with inflammatory arthritis but is unlikely to make a significant benefit for diffuse pain. I explained that I will review the patient's symptoms with her Neurology provider to determine if there is something in the short term that could assist with her pain symptoms ahead of her proceduralvisits with PM&R. I have messaged Dr. Stinson directly through [employer] secure chat and we will update the patient's accordingly after our discussion. Neli Clemente MD, MPH documented in this encounter Plan of Treatment Upcoming Encounters Date Type Department Care Team (Late st Contact Info) Description 07/20/2025 10:45 AM EDT Office Visit [facility], A Department of [address] [place] [address] [place] [address] [place] [address], [address] [place] [address] 08/01/2025 2:00 PM EDT Office Visit [facility], A Department of [facility] [address] [place] [address] 101, [address], [address] [place] [address] [place] [address] [place] [address] 101, 102, [address] [place] [address] 08/07/2025 11:00 AM EDT Office Visit [facility] [address] [facility] 170 [place] [address] Isidro Woodall, DO [address] [facility] 170 [place] [address] 08/07/2025 11:00 AM EDT Appointment [facility] [address] [place] [address] 08/21/2025 2:30 PM EDT Appointment [facility] [address] [place] [address] 08/22/2025 2:30 PM EDT Office Visit [facility] [address] [facility] [address] [place] [address] Isidro Woodall, DO [address] [facility] 170 [place] [address] 08/23/2025 1:30 PM EDT Office Visit [facility] [address] [facility] 170 [place] [phone] Jesenia Peng, DIRECTOR ADVANCED-CHILD CARE LEAD TEACHER [address] [facility], [address] [place] [address] 09/26/2025 1:30 PM EST Office Visit [facility], A Department of [address] [address] Neli Clemente MD MPH [address] [facility] 202 [place] [address] 10/13/2025 11:45 AM EST Office Visit [facility] Card[facility] [address] [facility] 202 [place] [address] Duong Johnson DO [address] [facility], [address] [place] [address] 10/13/2025 3:15 PM EST Office Visit [facility], A Department of [facility] [address] [place] [address] 103 [place] [phone] Ines Uribe PA-C [address] [facility], [address] [place] [address] 11/14/2025 12:20 PM EST Office Visit [facility] [address] [place] [phone] Ofelia Pierce V, DIRECTOR ADVANCED-CHILD CARE LEAD TEACHER [address] [place] [address] 11/21/2025 12:30 PM EST Appointment [facility] - Mammography [address] [place] [phone] documented as of this encounter Goals Goal [...] documented as of this encounter Care Teams Press Helper Relationship Specialty Start Date End Date Jesenia Peng, DIRECTOR ADVANCED-CHILD CARE LEAD TEACHER [facility], [address] [place] [address] PCP - General 03/19/15 documented as of this encounter
--- OUTSIDE RECORDS SUMMARY | 2025-07-12 12:14 | XMS_ITS | Encounter Summary ---
Author Organization [facility] tem Address [id number] [address] [place] [address] Care Team Providers Care Rack Cleaner Name Role Phone Jesenia Peng PAPER AND PRINTS RESTORER-SHRIMP POND LABORER Primary Care Provider Reason for Visit * Reason Onset Date Comments Med Refill 06/30/2025 Encounter Details Date Type Department Care Team (Late st Contact Info) Description 06/30/2025 [facility]phone [facility] Department of [facility] [address] [facility] [address] [place] [address] Beena Gaytan Med Refill Social History Tobacco Use Types Packs/Day Years [...] encounter Miscellaneous Notes * Telephone Encounter - Beena Gaytan - 06/30/2025 1:25 PM EDT Medication Refill request: Medication Name and Strength:amantadine (SYMMETREL) 100 mg tablet Current dose & Frequency: actuTake 1-2 tabs at 6am and 1 tab at 12pm PO. ally taking - not what is listed on the prescriptionlabel 30 day or 90 day supply preferred: Pharmacy Name: [id number] - [place] - [address] [facility] [address] [place] [address] Request was made by:Patient - patient stated that pharmacy do not have script to fill medication * Telephone Encounter - Genia Uribe - 06/30/2025 1:25 PM EDT Talent Management Manager spoke with pharmacist at [facility] and was told that they did not have prescription that was written on 06/20/2025 on file. Talent Management Manager gave verbal order for medication to avoid a delay in treatment. 90 day supply with 3 + refills. documented in this encounter Plan of Treatment Upcoming Encounters Date Type Department Care Team (Late st Contact Info) Description 07/20/2025 10:45 AM EDT Office Visit [facility], A Department of [address] [place] [phone] Cliff Greenfield MD [address] [place] [address], [address] [place] [address] 08/01/2025 2:00 PM EDT Office Visit [facility] Neurology, A Department of [address], [address] [place] [address] Trice Stinson MD [address] [facility] [address], [address], [address] [place] [address] 08/07/2025 11:00 AM EDT Office Visit [facility] [address] [facility] [address] [place] [address] Isidro Woodall, DO [address] [address] 08/07/2025 11:00 AM EDT Appointment [facility] Radiology [address] [place] [address] 08/21/2025 2:30 PM EDT Appointment [facility] [address] [place] [address] 08/22/2025 2:30 PM EDT Office Visit [facility] [address] [facility] [address] [place] [address] Isidro Woodall, DO [address] [address] 08/23/2025 1:30 PM EDT Office Visit [facility] [address] [facility] 170 [place] [phone] Jesenia Peng, PAPER AND PRINTS RESTORER-SHRIMP POND LABORER [address] [facility], [address] [place] [address] 09/26/2025 1:30 PM EST Office Visit [facility], A Department of [address] [address] Neli Clemente MD MPH [address] [place] [address] 10/13/2025 11:45 AM EST Office Visit [facility] Cardiology [address] [facility] [address] [place] [address] Duong Johnson DO [address] [facility], [address] [place] [address] 10/13/2025 3:15 PM EST Office Visit [facility], A Department of [address] [place] [address] Ines Uribe PA-C [address] [place] [address], [address] [place] [address] 11/14/2025 12:20 PM EST Office Visit [facility] [address] [facility] [address] [place] [phone] Ofelia Pierce APRN-SHRIMP POND LABORER [address] [place] [address] [address] [place] [address] 11/21/2025 12:30 PM EST Appointment [facility] [place] - M[facility]ography [address] [place] [phone] documented as of this encounter Goals Goal [...] documented as of this encounter Care Teams Rack Cleaner Relationship Specialty Start Date End Date Jesenia Peng APRN-SHRIMP POND LABORER [facility] [facility], [address] [place] [address] PCP - General 03/19/15 documented as of this encounter
--- OUTSIDE RECORDS SUMMARY | 2025-07-12 12:15 | XMS_ITS | Encounter Summary ---
Author Organization [facility] [employer] tem Address [id number] [address] [place] [address] Care Team Providers Care Golf Ball Trimmer Name Role Phone Jesenia Peng BLOCKER HAND-SECRETARY BOOK KEEPER Primary Care Provider Encounter Details Date Type Department Care Team (Late st Contact Info) Description 09/02/2022 Orders Only [facility] [address] [place] [phone] Anamaria Perkins CMA Encounter for screening mammogram for malignant neoplasm of breast (Primary Dx) Social History Tobacco Use Types Packs/Day Years Used Date Smoking Tobacco: Former Cigarettes Q uit: 2018 Smokeless Tobacco: Never Alcohol Use Standard Drinks/Week Comments Yes 1 (1 standard drink = 0.6 oz pur e alcohol) daily PHQ-2 Answer Date Recorded Total Score 9 07/23/2022 Childcare Answer Date Recorded Childcare Unknown 04/11/2019 Employment Answer Date Recorded Employment Unknown 04/11/2019 Purpose - Life Answer Date Recorded Purpose and direction in life Unknown Comments No Sex and Gender Information Value Date Recorded Sex Assigned at Not on file Legal Sex Female 7:50 PM EDT Gender Identity Not on file Sexual Orientation Not on file COVID-19 Exposure Response Date Recorded In the last month, have you been in contact with someone who was confirmed or suspected to have Coronavirus / COVID-19? No / Unsure 08/27/2022 12:43 PM EDT documented as of this encounter Plan of Treatment Upcoming Encounters Date Type Department Care Team (Late st Contact Info) Description 07/20/2025 10:45 AM EDT Office Visit [facility], A Department of [address] [place] [address] Cilff Greenfield MD [address] [facility], [address] [place] [address] 08/01/2025 2:00 PM EDT Office Visit [facility] Neurology, A Department of [address], [address] [place] [address] Trice Stinson MD [address] [place] [address] 101, [address], [address] [place] [address] 08/07/2025 11:00 AM EDT Office Visit [facility] [address] [facility] 170 [place] [address] Isidro Woodall DO [address] [facility] 170 [place] [address] 08/07/2025 11:00 AM EDT Appointment [facility] Radiology [address] [place] [address] 08/21/2025 2:30 PM EDT Appointment [facility] [address] [place] [address] 08/22/2025 2:30 PM EDT Office Visit [facility] [address] [facility] [address] [place] [address] Isidro Woodall, DO [address] [facility] [address] [place] [address] 08/23/2025 1:30 PM EDT Office Visit [facility] [address] [facility] [address] [place] [address] Jesenia Peng, BLOCKER HAND-SECRETARY BOOK KEEPER [address] [facility], [address] [place] [address] 09/26/2025 1:30 PM EST Office Visit [facility], A Department of [address] [phone] Neli Clemente MD MPH [address] [place] [phone] 10/13/2025 11:45 AM EST Office Visit [facility] Cardiology [address] [place] [phone] Duong Johnson, DO [address] [place] [address], [address] [place] [address] 10/13/2025 3:15 PM EST [facility], A Department of [address] [place] [address] Ines Uribe, PA-C [address] [place] [address], [address] [place] [address] 11/14/2025 12:20 PM EST Office Visit [facility] [address] [facility] [address] [place] [phone] Ofelia Pierce V, BLOCKER HAND-SECRETARY BOOK KEEPER [address] [facility] [address] [place] [address] 11/21/2025 12:30 PM EST Appointment [facility] [place] [facility] Mammography [address] [place] [phone] documented as of this encounter Goals Goal Patient Goal Type Associated Problems Recent Progress Patient-Stated? Author Discharge with home care General Yes Black, Carmen D, RN Note: Evaluation of progress towards goal: [facility] home with & [facility] documented as of this encounter Results * Mammography screening bilateral with CAD (09/12/2021) Anatomical Region Laterality Modality Breast Bilateral Mammography 09/12/2021 Jesenia LAFLEUR IMG MAMMOGRAPHY ORDERAB LES Final Result documented in this encounter Visit Diagnoses Diagnosis Encounter for screening mammogram for malignant neoplasm of breast- Primary documented in this encounter Additional Health Concerns Infection Onset Date Last Indicated Resolved Time COVID-19 Rule-Out 06/27/2025 06/27/2025 06/27/2025 2:03 PM EDT Assessment Noted Time PHQ-9 Depression Total Score: 9 07/23/20 22 11:00 AM EDT A Body Mass Index follow-up plan has been documented for the patient 07/24/2022 9:57 AM EDT documented as of this encounter Care Teams Golf Ball Trimmer Relationship Specialty Start Date End Date Jesenia Peng APRN-CNP [address] [place] [address], [address] [place] [address] PCP - General 03/19/15 documented as of this encounter
--- OUTSIDE RECORDS SUMMARY | 2025-07-12 12:15 | XMS_ITS | Encounter Summary ---
Author Organization [facility] Address [facility]-[id number] [address] [place] [address] Care Team Providers Care Shop Manager Name Role Phone Jesenia Peng AGRICULTURAL PRODUCE PACKER-STEEL WELDER Primary Care Provider Reason for Visit * Reason Onset Date Comments Med Refill 12/02/2024 Encounter Details Date Type Department Care Team (Late st Contact Info) Description 12/02/2024 Refill [facility] Neurology [address] [place] [phone] Trice Stinson MD [address] [place] [address] 101, [address], [address] [place], [place] [phone] Insomnia due to medical condition; REM sleep behavior disorder Social History Tobacco Use Types Packs/Day Years [...] got money to buy more. Never True 10/20/2024 Within the past 12 months th e food we bought just didn't last and we didn't have money to get more. Never True 10/20/2024 Purpose - Life Answer Date Recorded Purpose and direction in life Unknown Comments No Sex and Gender Information Value Date Recorded Sex Assigned at Not on file Legal Sex Female 7:50 PM EDT Gender Identity Not on file Sexual Orientation Not on file documented as of this encounter Miscellaneous Notes * Telephone Encounter - Genia Uribe - 12/02/2024 8:27 PM EST Refill request : clonazePAM (KlonoPIN) 0.5 mg tablet Last Filled : 02/15/2024 Last OV : 06/29/2024 Next OV : 01/25/2025 The OARRS/MAPPS database was reviewed today and found to be appropriate. No indication of medication diversion, or non compliance. Reviewed by WEIR FISHER. Pend for signature. documented in this encounter Plan of Treatment Upcoming Encounters Date Type Department Care Team (Late st Contact Info) Description 07/20/2025 10:45 AM EDT Office Visit [facility], Department of [address] [address] Cliff Greenfield MD [address] [place] [address], [address] [place] [address] 08/01/2025 2:00 PM EDT Office Visit [facility] Neurology, Department of [address], [address], [address] [place] [phone] Trice Stinson MD [address] [place] [address] 101, [address], [address] [place] [address] 08/07/2025 11:00 AM EDT Office Visit [facility] Physical Medicine and Rehabilitation [address] [phone] Isidro Woodall DO [address] [address] 08/07/2025 11:00 AM EDT Appointment [facility] Radiology [address] [place] [address] 08/21/2025 2:30 PM EDT Appointment [facility] [address] [place] [address] 08/22/2025 2:30 PM EDT Office Visit [facility] [address] [facility] 170 [place] [address] Isidro Woodall, DO [address] [facility] 170 [place] [address] 08/23/2025 1:30 PM EDT Office Visit [facility] [address] [facility] [address] [place] [phone] Jesenia Peng, AGRICULTURAL PRODUCE PACKER-STEEL WELDER [address] [facility], [address] [place] [address] 09/26/2025 1:30 PM EST Office Visit [facility], A Department of [address] [phone] Neli Clemente MD MPH [address] [place] [address] 10/13/2025 11:45 AM EST Office Visit [facility] Cardiology [address] [place] [phone] Duong Johnson, [address] [place] [address], [address] [place] [address] 10/13/2025 3:15 PM EST Office Visit [facility], A Department of [address] [phone] Ines Uribe PA-C [address] [facility], [address] [place] [address] 11/14/2025 12:20 PM EST Office Visit [facility] [address] [facility] [address] [place] [phone] Ofelia Pierce V, AGRICULTURAL PRODUCE PACKER-STEEL WELDER [address] [facility] [address] [place] [address] 11/21/2025 12:30 PM EST Appointment [facility] [place] - Mamm[facility] [address] [place] [address] documented as of this encounter Goals Goal Patient Goal Type Associated Problems Recent Progress Patient-Stated? Author Discharge with home care General Yes Carmen Yañez, RN Note: Evaluation of progress towards goal: [facility] home with [facility] documented as of this encounter Visit Diagnoses Diagnosis Insomnia due to medical condition Organic insomnia, unspecified REM sleep behavior disorder documented in this encounter Additional Health Concerns Infection Onset Date Last Indicated Resolved Time COVID-19 Rule-Out 06/27/2025 06/27/2025 06/27/2025 2:03 PM EDT Assessment Noted Time PHQ-9 Depression Total Score: 0 08/09/20 24 7:00 AM EDT A Body Mass Index follow-up plan has been documented for the patient 06/29/2024 1:23 PM EDT documented as of this encounter Care Teams Shop Manager Relationship Specialty Start Date End Date Jesenia Peng, AGRICULTURAL PRODUCE PACKER-STEEL WELDER [address] [facility], [address] [place] [address] PCP - General 03/19/15 documented as of this encounter
--- OUTSIDE RECORDS SUMMARY | 2025-07-12 12:15 | XMS_ITS | Encounter Summary ---
Author Organization [facility] [employer] [facility] Address [id number] [address] [place] [address] Care Team Providers Care Processing Archivist Name Role Phone Jesenia Peng WATCH ENGINEER-REACHER Primary Care Provider Encounter Details Date Type Department Care Team (Late Contact Info) Description 12/04/2022 Orders Only [facility] [address] [place] [phone] Jaja Sanabria MA Social History Tobacco Use Types Packs/Day Years Used Date Smoking Tobacco: Former Cigarettes Q uit: 2018 Smokeless Tobacco: Never Alcohol Use Standard Drinks/Week Comments Yes 1 (1 standard drink = 0.6 oz pur e alcohol) daily PHQ-2 Answer Date Recorded Total Score 0 12/01/2022 Childcare Answer Date Recorded Childcare Unknown 04/11/2019 [...] have Coronavirus / COVID-19? No / Unsure 12/01/2022 1:49 PM EST documented as of this encounter Plan of Treatment Upcoming Encounters Date Type Department Care Team (Late Contact Info) Description 07/20/2025 10:45 AM EDT Office Visit [facility], A Department of [address] [place] [address] Cliff Greenfield MD [address] [facility], [address] [place] [address] 08/01/2025 2:00 PM EDT Office Visit [facility] Neurology, A Department of [address], [address], [address] [place] [address] Trice Stinson MD [address] [place] [address] 101, [address], [address] [place] [address] 08/07/2025 11:00 AM EDT Office Visit [facility] Rehabilitation [address] [facility] [address] [place] [address] Isidro Woodall, DO [address] [facility] [address] [place] [address] 08/07/2025 11:00 AM EDT Appointment [facility] Radiology [address] [place] [address] 08/21/2025 2:30 PM EDT Appointment [facility] [address] [place] [address] 08/22/2025 2:30 PM EDT Office Visit [facility] [address] [facility] [address] [place] [address] Isidro Woodall, DO [address] [facility] [address] [place] [address] 08/23/2025 1:30 PM EDT Office Visit [facility] [address] [facility] [address] [place] [address] Jesenia Peng, WATCH ENGINEER-REACHER [address] [facility], [address] [place] [address] 09/26/2025 1:30 PM EST Office Visit [facility], A Department of [address] [place] [phone] Neli Clemente MD MPH [address] [place] [address] [address] [place] [address] 10/13/2025 11:45 AM EST Office Visit [facility] Cardiology [address] [place] [phone] Duong Johnson, DO [address] [facility], [address] [place] [address] 10/13/2025 3:15 PM EST [facility] Visit [facility], A Department of [address] [place] [phone] Ines Uribe, PA-C [address] [place] [address], [address] [place] [address] 11/14/2025 12:20 PM EST Office Visit [facility] [address] [facility] [address] [place] [phone] Ofelia Pierce V, WATCH ENGINEER-REACHER [address] [facility] [address] [place] [address] 11/21/2025 12:30 PM EST Appointment [facility] [place] - Mammography [address] [place] [phone] documented as of this encounter Goals Goal Patient Goal Type Associated Problems Recent Progress Patient-Stated? Author Discharge with home care General Yes Carmen Yañez, RN Note: Evaluation of progress towards goal: [facility] home with & [facility] documented as of this encounter Procedures Procedure Name Priority Date/Time Associated Diagnosis Comments MAMMOGRAPHY BILATERAL Routine 11/18/2022 documented in this encounter Results * MAMMOGRAPHY BILATERAL (11/18/2022) us Not In System Ref Prov OR [facility] Final Result MANUALLY TRANSCRIBED RESULTS documented in this encounter Visit Diagnoses Not on filedocumented in this encounter Additional Health Concerns Infection Onset Date Last Indicated Resolved Time COVID-19 Rule-Out 06/27/2025 06/27/2025 06/27/2025 2:03 PM EDT Assessment Noted Time PHQ-9 Depression Total Score: 0 12/01/19 7:00 AM EST A Body Mass Index follow-up plan has been documented for the patient 07/24/2022 9:57 AM EDT documented as of this encounter Care Teams Processing Archivist Relationship Specialty Start Date End Date Jesenia Peng APRN-REACHER [address] [place] [address], [address] [place] [address] PCP - General 03/19/15 documented as of this encounter
--- OUTSIDE RECORDS SUMMARY | 2025-07-12 12:15 | XMS_ITS | Encounter Summary ---
Author Organization [facility] [employer] Address [id number] [address] [place] [address] Care Team Providers Care Assistant Baseball Coach Name Role Phone Jesenia Peng INSURANCE DEFENSE ATTORNEY-PRODUCT STRATEGY DIRECTOR Primary Care Provider Encounter Details Date Type Department Care Team (Late st Contact Info) Description 12/03/2022 Orders Only [facility] [address] [place] [phone] Jaja Sanabria MA Encounter for screening mammogram for malignant neoplasm of breast Social History Tobacco Use Types Packs/Day Years [...] Visit [facility], A Department of [facility] [address] [place] [address] [address] [place] [address] Cliff Greenfield MD [address] [facility], [address] [place] [address] 08/01/2025 2:00 PM EDT Office Visit [facility] Neurology, A Department of [address], [address] [place] [phone] Trice Stinson MD [address] [place] [address] 101, 102, 103 [place] [address] 08/07/2025 11:00 AM EDT Office Visit [facility] [address] [facility] [address] [place] [address] Isidro Woodall, DO [address] [facility] [address] [place] [address] 08/07/2025 11:00 AM EDT Appointment [facility] Radiology [address] [place] [address] 08/21/2025 2:30 PM EDT Appointment [facility] [address] [place] [address] 08/22/2025 2:30 PM EDT Office Visit [facility] [address] [facility] [address] [place] [address] Isidro Woodall, DO [address] [facility] 170 [place] [address] 08/23/2025 1:30 PM EDT Office Visit [facility] [address] [facility] [address] [place] [address] Jesenia Peng, INSURANCE DEFENSE ATTORNEY-PRODUCT STRATEGY DIRECTOR [address] [facility], [address] [place] [address] 09/26/2025 1:30 PM EST Office Visit [facility] Rheumatology, A Department of [address] [place] [address] Neli Clemente MD MPH [address] [place] [phone] 10/13/2025 11:45 AM EST Office Visit [facility] Cardiology [address] [place] [address] [address] [place] [address] Duong Johnson, DO [address] [place] [address], [address] [place] [address] 10/13/2025 3:15 PM EST Office Visit [facility], A Department of [address] [place] [address] Ines Uribe, SOPHY-C [address] [place] [address], [address] [place] [address] 11/14/2025 12:20 PM EST Office Visit [facility] [address] [facility] [address] [place] [phone] Ofelia Pierce V, INSURANCE DEFENSE ATTORNEY-PRODUCT STRATEGY DIRECTOR [address] [facility] [address] [place] [address] 11/21/2025 12:30 PM EST Appointment [facility] [address] [place] [phone] documented as of this encounter Goals Goal Patient Goal Type Associated Problems Recent Progress Patient-Stated? Author Discharge with home care General Yes Carmen Yañez, RN Note: Evaluation of progress towards goal: Discharge home with [facility] documented as of this encounter Procedures Procedure Name Priority Date/Time Associated Diagnosis Comments MAMM SCREENING BILATERAL W CAD Routine 09/12/2021 Encounter for screening mammogram for malignant neoplasm of breast documented in this encounter Results * Mammography screening bilateral with CAD (09/12/2021) Anatomical Region Laterality Modality Breast Bilateral Mammography 09/12/2021 Jesenia LAFLEUR IMG MAMMOGRAPHY ORDERAB LES Final Result documented in this encounter Visit Diagnoses Diagnosis Encounter for screening mammogram for malignant neoplasm of breast documented in this encounter Additional Health Concerns Infection Onset Date Last Indicated Resolved Time COVID-19 Rule-Out 06/27/2025 06/27/2025 06/27/2025 2:03 PM EDT Assessment Noted Time PHQ-9 Depression Total Score: 0 12/01/19 23 7:00 AM EST A Body Mass Index follow-up plan has been documented for the patient 07/24/2022 9:57 AM EDT documented as of this encounter Care Teams Assistant Baseball Coach Relationship Specialty Start Date End Date Jesenia Peng APRN-CNP [address] [place] [address], [address] [place] [id number] PCP - General 03/19/15 documented as of this encounter
--- OUTSIDE RECORDS SUMMARY | 2025-07-12 12:15 | XMS_ITS | Encounter Summary ---
Author Organization [facility] Sys tem Address [id number] [address] [place] [address] Care Team Providers Care Enchilada Maker Name Role Phone Jesenia Peng SHOT HOLE DRILLER-NP Primary Care Provider Encounter Details Date Type Department Care Team (Late st Contact Info) Description 08/18/2024 Orders Only [facility] [address] [facility] [address] [place] [address] Jesenia Peng SHOT HOLE DRILLER-NP [address] [facility], [address] [place] [address] Social History Tobacco Use Types Packs/Day Years [...] Description 07/20/2025 10:45 AM EDT Office Visit [facility], A Department of [address] [place] [address] Cliff Greenfield MD [address] [place] [address], [address] [place] [address] 08/01/2025 2:00 PM EDT Office Visit [facility] Neurology, A Department of [address], [address] [place] [address] Trice Stinson MD [address] [place] [address] 101, 102, 103 [place] [address] 08/07/2025 11:00 AM EDT Office Visit [facility] [address] [address] Isidro Woodall, DO [address] [address] 08/07/2025 11:00 AM EDT Appointment [facility] Radiology [address] [place] [address] 08/21/2025 2:30 PM EDT Appointment [facility] [address] [place] [address] 08/22/2025 2:30 PM EDT Office Visit [facility] [address] [facility] [address] [place] [address] Isidro Woodall, DO [address] [facility] [address] [place] [address] 08/23/2025 1:30 PM EDT Office Visit [facility] [address] [facility] [address] [place] [address] Jesenia Peng, SHOT HOLE DRILLER-NP [address] [facility], [address] [place] [address] 09/26/2025 1:30 PM EST Office Visit [facility], A Department of [address] [place] [address] Neli Clemente MD MPH [address] [place] [phone] 10/13/2025 11:45 AM EST Office Visit [facility] Cardiology [address] [place] [address] [address] [place] [address] Duong Johnson, DO [address] [place] [address], [address] [place] [address] 10/13/2025 3:15 PM EST [facility], A Department of [address] [place] [address] Ines Uribe, PA-C [address] [place] [address], [address] [place] [address] 11/14/2025 12:20 PM EST Office Visit [facility] [address] [facility] [address] [place] [address] Ofelia Pierce V, SHOT HOLE DRILLER-NP [address] [facility] [address] [place] [address] 11/21/2025 12:30 PM EST Appointment [facility] [place] [facility] [address] [place] [place] [address] documented as of this encounter Goals Goal [...] Time PHQ-9 Depression Total Score: 0 08/09/20 7:00 AM EDT A Body Mass Index follow-up plan has been documented for the patient 06/29/2024 1:23 PM EDT documented as of this encounter Care Teams Enchilada Maker Relationship Specialty Start Date End Date Jesenia Peng APRN-NP [address] [place] [address], [address] [place] [address] PCP - General 03/19/15 documented as of this encounter
--- OUTSIDE RECORDS SUMMARY | 2025-07-12 12:15 | XMS_ITS | Encounter Summary ---
Author Organization [facility] [employer] Address [id number] [address] [place] [address] Care Team Providers Care Vascular Technologist Sonographer Name Role Phone Jesenia Peng FILLER FEEDER-SUPERINTENDENT OVERHEAD DISTRIBUTION Primary Care Provider Reason for Visit * Reason Comments Med Refill Encounter Details Date Type Department Care Team (Late st Contact Info) Description 08/12/2022 Refill [facility] [address] [facility] [address] [place] [phone] Jesenia Peng APRN[facility] [address] [facility], [address] [place] [address] Social History Tobacco Use Types Packs/Day Years [...] have Coronavirus / COVID-19? No / Unsure 2022 12:49 PM EDT documented as of this encounter Plan of Treatment Upcoming Encounters Date Type Department Care Team (Late st Contact Info) Description 07/20/2025 10:45 AM EDT Office Visit [facility], A Department of [address] [place] [address] Cliff Greenfield MD [address] [place] [address], [address] [place] [address] 08/01/2025 2:00 PM EDT Office Visit [facility] Neurology, A Department of [address], [address], [address] [place] [address] Trice Stinson MD [address] [place] [address] 101, 102, [address] [place] [address] 08/07/2025 11:00 AM EDT Office Visit [facility] [address] [address] Isidro Woodall, DO [address] [address] 08/07/2025 11:00 AM EDT Appointment [facility] Rad[facility] [address] [place] [address] 08/21/2025 2:30 PM EDT Appointment [facility] [address] [place] [address] 08/22/2025 2:30 PM EDT Office Visit [facility] [address] [facility] [address] [place] [address] Isidro Woodall, DO [address] [facility] [address] [place] [address] 08/23/2025 1:30 PM EDT Office Visit [facility] [address] [facility] [address] [place] [address] Jesenia Peng, FILLER FEEDER-SUPERINTENDENT OVERHEAD DISTRIBUTION [address] [facility], [address] [place] [address] 09/26/2025 1:30 PM EST Office Visit [facility], A Department of [address] [place] [address] Neli Clemente MD MPH [address] [place] [phone] 10/13/2025 11:45 AM EST Office Visit [facility] Cardiology [address] [place] [address] [address] [place] [address] Duong Johnson, DO [address] [place] [address], [address] [place] [address] 10/13/2025 3:15 PM EST Office Visit [facility], A Department of [address] [place] [address] Ines Uribe, SOPHY-C [address] [place] [address], [address] [place] [address] 11/14/2025 12:20 PM EST Office Visit [facility] [address] [facility] [address] [place] [phone] Ofelia Pierce V, FILLER FEEDER-SUPERINTENDENT OVERHEAD DISTRIBUTION [address] [facility] [address] [place] [address] 11/21/2025 12:30 PM EST [facility] [place] [address] [place] [address] documented as of this encounter Goals Goal [...] documented as of this encounter Care Teams Vascular Technologist Sonographer Relationship Specialty Start Date End Date Jesenia Peng APRN-SUPERINTENDENT OVERHEAD DISTRIBUTION [address] [place] [address], [address] [place] [address] PCP - General 03/19/15 documented as of this encounter
--- OUTSIDE RECORDS SUMMARY | 2025-07-12 12:15 | XMS_ITS | Clinical Summary ---
Author Organization [employer] tem Address [id number] [address] [place] [address] Care Team Providers Care Software Quality Assurance Specialist Name Role Phone Loy Pengtisha Zuñiga APRN-MOLDING MANAGER Primary Care Provider Allergies Active Allergy Reactions Criticality Noted Date Comments Iodinated Contrast Media Itching Low 12/24/2018 Medications losartan (COZAAR) 25 mg tabletIndications :Primary hypertension TAKE 1 TABLET BY MOUTH IN THE MORNING 90 tablet 3 024 Active calcium citrate-vitamin D2 250 mg-2.5 mcg (100 unit) per tablet Take 1 tablet by mouth in the morning and 1 tablet before bedtime. Active folic acid (FOLVITE) 1 mg tabletIndications :Inflammatory polyarthritis ([facility]),Seroneg ative rheumatoid arthritis ([facility]) Take 1 tablet (1 mg total) by mouth in the morning. 90 tablet 3 024 Active furosemide (LASIX) 20 mg tablet Take 1 tablet (20 mg total) by mouth daily. Active pramipexole (MIRAPEX) 0.25 mg tabletIndications :Parkinson's disease ([facility]),Restles s leg syndrome TAKE 1 TABLET BY MOUTH 3 TIMES DAILY 270 tablet 3 025 Active clonazePAM (KlonoPIN) 0.5 mg tabletIndications :Insomnia due to medical condition,REM sleep behavior disorder Take 3 tablets at bedtime 270 tablet 1 025 Active rasagiline (AZILECT) 1 mg tabletIndications :Restless leg syndrome Take 1 tablet (1 mg total) by mouth every morning. 90 tablet 3 025 Active eszopiclone (LUNESTA) 2 mg tabletIndications :Insomnia due to medical condition Take 1 tablet (2 mg total) by mouth nightly. Take immediately before bedtime 90 tablet 1 025 Active ammonium lactate (AMLACTIN) 12 % cream Apply 1 Application topically as needed. 025 Active simvastatin (ZOCOR) 40 mg tabletIndications :Mixed hyperlipidemia TAKE 1 TABLET BY MOUTH AT NIGHT 90 tablet 1 025 Active carbidopa-levodop a (SINEMET CR) 25-100 mg per CR tabletIndications :Parkinson's disease with dyskinesia and fluctuating manifestations ([facility]) Take 2 tabs 6am, 1 tab 1130am, 2 tabs 5pm, and 1 tab 11pm PO 540 tablet 3 025 Active tiZANidine (ZANAFLEX) 4 mg capsuleIndication s:Neck pain,Muscle tension pain TAKE 1 CAPSULE BY MOUTH AT NIGHT 30 capsule 025 Active pantoprazole (PROTONIX) 40 mg EC tablet TAKE 1 TABLET BY MOUTH IN THE MORNING 30 tablet 11 025 Active methotrexate 2.5 mg chemo tabletIndications :Inflammatory polyarthritis ([facility]),Seroneg ative rheumatoid arthritis ([facility]),Medicat ion monitoring encounter Take 9 tablets by mouth once a week 108 tablet 025 2024 Active albuterol (PROVENTIL HFA;VENTOLIN HFA) 90 mcg/actuation inhalerIndication s:Wheezing Inhale 2 puffs every 6 (six) hours as needed for wheezing. 18 g 2 025 Active amantadine (SYMMETREL) 100 mg tabletIndications :Parkinson's disease ([facility]) Take 1-2 tablets by mouth at 6am and 1 tablet at 12pm 270 tablet 3 025 Active amantadine (SYMMETREL) 100 mg tabletIndications :Parkinson's disease ([facility]) Take 1-2 tabs at 6am and 1 tab at 12pm PO. 270 tablet 3 025 2024 Discontinued(R eorder) amantadine (SYMMETREL) 100 mg tabletIndications :Parkinson's disease ([facility]) Take 1-2 tabs at 6am and 1 tab at 12pm PO. 270 tablet 3 025 2024 Discontinued Active Problems Problem Noted Date Diagnosed Date Chronic pain syndrome 12/06/2024 Neck pain, chronic 12/06/2024 Cervical radiculopathy 12/06/2024 Nonrheumatic mitral valve regurgitation 10/04/20 24 Vasovagal episode 07/05/2024 Chronic heart failure with preserved ejection fr action 02/20/2022 Oral lesion 11/11/2021 Livedo reticularis 07/29/2021 Right rotator cuff tear arthropathy 12/03/2020 Tear of right hamstring 07/03/2020 COPD (chronic obstructive pulmonary disease) 04/2019 Osteoarthritis of facet joint of lumbar spine Lumbar degenerative disc disease 10/19/2017 Menopause 03/09/2017 Decreased body height 03/09/2017 Parkinson's disease 03/09/2017 Hypertension 03/09/2017 Mixed hyperlipidemia 03/09/2017 Chronic bilateral low back pain without sciatica 12/09/2016 Swelling of right hand 12/09/2016 Resolved Problems Problem Noted Date Diagnosed Date Resolved Date Cellulitis of left lower extremity 02/19/2022 12/01/2022 Abdominal bloating 02/19/2022 Open wound of left lower leg 01/20/2022 12/01/2022 Sepsis due to Staphylococcus aureus 01/17/2022 12/01/2022 Rupture of right proximal biceps tendon 11/13/2020 02/10/2024 Rash 12/09/2016 03/14/2019 Encounters Date Type Department Care Team Description 07/04/2025 Telephone [facility], [facility] Department of [facility] [address] [facility] [address] [place] [address] Trice Stinson MD 07/03/2025 Telephone [facility], A Department of [facility] [address] [place] [address] [address] [place] [address] Kendy Navarrete RMA 07/03/2025 Orders Only [facility], A Department of [address] [place] [address] Ines Uribe PA-C 06/30/2025 Telephone [facility], A Department of [facility] [address] [facility] [address] [place] [address] Gio on, Beena Med Refill 06/30/2025 Refill [facility] [address] [place] [address] Trice Stinson MD Parkinson's disease ([facility]) 06/29/2025 [facility]phone [facility] Department of [address] [place] [address] Aiden Jones, [facility] 06/29/2025 Telephone [facility], A Department of [address] [place] [address] Brenna Case, [facility] 06/29/2025 Telephone [facility] [address] [facility] [address] [place] [address] Josselyn Altman, [facility] 06/28/2025 1:00 PM EDT - 06/28/2025 11:59 PM EDT Hospital Encounter [facility] of [facility] - Radiology [address] [place] [address] Trice Stinson MD Dysphagia, unspecified type Discharge Disposition: Home 06/27/2025 1:21 PM EDT - 06/27/2025 2:40 PM EDT [facility] [address] [place] [address] [place] [address] Upper respiratory tract infection, unspecified type (Primary Dx) Discharge Disposition: Home 06/27/2025 Results Follow-Up [facility], A Department of [address] [place] [address] Neli Clemente MD MPH X-ray spine lumbar 2 or 3 views 06/27/2025 Travel 06/27/2025 Refill [facility] [address] [place] [address] Cee Tolentino CMA Wheezing 06/22/2025 12:40 PM EDT - 06/22/2025 11:59 PM EDT Hospital Encounter [facility] - Radiology Imaging [address] [facility] [address] [place] [address] Inflammatory polyarthritis ([facility]); Seronegative rheumatoid arthritis ([facility]); Primary osteoarthritis involving multiple joints; Chronic bilateral low back pain without sciatica Discharge Disposition: Home 06/22/2025 12:00 PM EDT Office Visit [facility] Department of [facility] [address] [place] [address] [address] [place] [address] Neli Clemente MD MPH Inflammatory polyarthritis ([facility]) (Primary Dx); Seronegative rheumatoid arthritis ([facility]); Primary osteoarthritis involving multiple joints; Chronic bilateral low back pain without sciatica; Medication monitoring encounter; Neck pain; Muscle tension pain 06/22/2025 Travel 06/19/2025 Refill [facility], [facility] Department of [facility] [address] [place] [phone] Dangelo Floyd Parkinson's disease ([facility]) 06/09/2025 Results Follow-Up [facility], [facility] Department of [facility] [address] [place] [address] [address] [place] [address] Neli Clemente MD MPH C-reactive protein, Erythrocyte Sedimentation Rate (ESR), Liver panel, Additional followed-up results: 2 06/08/2025 Travel 06/05/2025 Orders Only [facility] [address] [place] [address] Anamaria Perkins CMA Weight loss (Primary Dx); Hyperbilirubinemia; Iron deficiency anemia, unspecified iron deficiency anemia type 05/31/2025 Telephone [facility], [facility] Department of [facility] [address] [place] [address] Padmaja Lindsay Physical Therapy / Speech Therapy 05/22/2025 Refill [facility] [address] [facility] [address] [place] [address] Cliff Greenfield MD 05/18/2025 Refill [facility] [address] [facility] [address] [place] [address] Neli Clemente MD MPH Neck pain; Muscle tension pain 05/17/2025 10:30 AM EDT Office Visit [facility] Department of [facility] [address] [place] [address] Trice Stinson MD Parkinson's disease with dyskinesia and fluctuating manifestations ([facility]) (Primary Dx); Dysphagia, unspecified type 05/17/2025 Travel 05/10/2025 Orders Only [facility] [address] [facility] [address] [place] [address] Annalise Rodriguez 05/10/2025 Orders Only [facility] [address] [facility] [address] [place] [address] Annalise Rodriguez 05/09/2025 Telephone [facility] [address] [facility] [address] [place] [address] Stephenie Negro RN Care Navigation 05/05/2025 Telephone [facility] [address] [facility] [address] [place] [address] Janell Hebert DO 05/05/2025 Telephone [facility] [address] [place] [address] Amy Flanagan, [place] Care Navigation 05/03/2025 7:00 AM EDT Office Visit [facility] [address] [facility] [address] [place] [address] John Dominguez MD Health care maintenance (Primary Dx); Iron deficiency anemia, unspecified iron deficiency anemia type; Weight loss; Decreased appetite; Parkinson's disease ([facility]); Inflammatory polyarthritis ([facility]); Primary hypertension; Chronic heart failure with preserved ejection fraction ([facility]); Insomnia, unspecified type; Hyperbilirubinemia; Elevated serum creatinine 05/03/2025 Telephone [facility], [facility] Department of [facility] [address] [place] [address] Padmaja Lindsay call back ; Medical Concern 05/03/2025 Orders Only [facility] [address] [facility] [address] [place] [address] Thorapryl, Annalise 05/03/2025 Orders Only [facility] [address] [facility] [address] [place] [address] Thorpe, Annalise Dysuria (Primary Dx); Frequency of urination 04/25/2025 12:20 PM EDT Office Visit [facility] [address] [facility] [address] [place] [address] Ofelia Pierce V, LEAD MAN 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 Chronic pain syndrome (Primary Dx); Cervical radiculopathy; Neck pain, chronic; Chronic bilateral low back pain without sciatica 04/25/2025 Travel 04/17/2025 6:55 PM EDT - 04/17/2025 10:18 PM EDT Emergency [facility] - Emergency Department [address] [place] [address] Ama Ireland, DO Loss of appetite (Primary Dx); Syncope, unspecified syncope type Discharge Disposition: Home 04/17/2025 Travel 04/17/2025 Orders Only [facility] [address] [place] [address] John Dominguez MD Health care maintenance (Primary Dx) 04/17/2025 Orders Only [facility] [address] [facility] [address] [place] [address] John Dominguez MD 04/14/2025 Orders Only [facility] [address] [facility] [address] [place] [address] Jhon Dominguez MD Health care maintenance (Primary Dx) 04/11/2025 11:45 AM EDT Office Visit [facility] [address] [place] [address] [address] [place] [address] Duong Johnson DO Chronic heart failure with preserved ejection fraction (CMS-HCC) (Primary Dx); Mixed hyperlipidemia; Nonrheumatic mitral valve regurgitation 04/11/2025 Travel from Last 3 Months Immunizations Immunization Administration Dates Next Due COVID-19, mRNA, LNP-S, PF, 100mcg/0.5mL Dose ,12/22/2020 Covid-19, Mrna, Lnp-s, Bivalent, Pf, 30mcg/0.3 m l 11/14/2022 Influenza (IM) Preservative Free 12/02/2013 Influenza Vaccine, Quadrivalent, Adjuvanted 10/09 Influenza, High-dose, Quadrivalent 08/27/2020 Influenza, Im Trivalent Preservative 09/28/2015 Influenza, Injectable, Quadrivalent 09/15/2017,1 Influenza, Injectable, quadrivalent (PF) 023,09/15/2019 Pneumococcal Conjugate 13-Valent 03/15/2020 Pneumococcal Polysaccharide 12/23/2018, 7 Tdap 07/25/2021,01/30/2011 Zoster Live 02/09/2015 Zoster Vaccine Recombinant 12/25/2021,10/24/2021 Family History Medical History Relation Name Comments Diabetes Father Heart disease Father CABG at age 65 Anesthesia problems Neg Hx Colon cancer Neg Hx Relation Name Status Comments Father Mother Alive Social History Tobacco Use Types Packs/Day Years Used Date Smoking Tobacco: Former Cigarettes Q uit: 2018 Smokeless Tobacco: Never Tobacco Cessation:Counseling Given: Not Answered Alcohol Use Standard Drinks/Week Comments Yes 7 [...] on file Sexual Orientation Not on file Last Filed Vital Signs Vital Sign Reading Time Taken Comments Blood Pressure 160/88 06/27/2025 1:20 PM EDT Pulse 94 06/27/2025 1:20 PM EDT Temperature 36.5 C (97.7 F) 06/27/2025 1:20 PM EDT Respiratory Rate 22 06/27/2025 1:20 PM EDT Oxygen Saturation 94% 06/27/2025 1:20 PM EDT Inhaled Oxygen Concentration - - Weight 42.6 kg (94 lb) 06/22/2025 11:58 AM EDT Height 157.5 cm (5' 2 ) 06/22/2025 11:58 AM EDT Body Mass Index 17.19 06/22/2025 11:58 AM EDT Plan of Treatment Upcoming Encounters Date Type Department Care Team (Late st Contact Info) Description 07/20/2025 10:45 AM EDT Office Visit [facility], A Department of [address] [address] Cliff Greenfield MD [address] [place] [address], [address] [address] 08/01/2025 2:00 PM EDT Office Visit [facility], A Department of [address] [place] [address] Trice Stinson MD [address] [place] [address] 101, [address] [place] [address] 08/07/2025 11:00 AM EDT Office Visit [facility] [address] [facility] [address] [place] [address] Isidro Woodall, DO [address] [facility] [address] [place] [address] 08/07/2025 11:00 AM EDT Appointment [facility] [address] [place] [address] 08/21/2025 2:30 PM EDT Appointment [facility] [address] [place] [address] 08/22/2025 2:30 PM EDT Office Visit [facility] [address] [facility] [address] [place] [address] Isidro Woodall, DO [address] [facility] [address] [place] [address] 08/23/2025 1:30 PM EDT Office Visit [facility] [address] [facility] [address] [place] [address] Jesenia Peng, LEAD MAN 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 [address] [facility] [place] [address] 09/26/2025 1:30 PM EST Office Visit [facility], A Department of [address] [place] [address] Neli Clemente MD MPH [address] [place] [address], [facility] [address] [place] [address] 10/13/2025 11:45 AM EST Office Visit [facility] [address] [place] [address] [address] [place] [address] Duong Johnson, [address] [facility], [address] [place] [address] 10/13/2025 3:15 PM EST Office Visit [facility], A Department of [address] [place] [address] Ines Uribe, PA-C [address] [place] [address], [address] [place] [address] 11/14/2025 12:20 PM EST Office Visit [facility] [address] [facility] [address] [place] [address] Ofelia Pierce V, 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 MAN 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 [address] [facility] [address] [place] [address] 11/21/2025 12:30 PM EST Appointment [facility] [address] [place] [phone] Health Maintenance Due Date Last Done Comments Fall Risk Screening 2016 Influenza Vaccine 07/10/2025 11/14/2022, , 08/27/2020, Additional history exists Colonoscopy 10/29/2025 10/29/2015 Mammogram 11/04/2025 11/04/2024, 03/0 04/2024, 01/13/2024, Additional history exists Adult BMI Follow Up Plan 02/21/2026 02/21/2025 Depression Screening 05/17/2026 05/17/2025 Adult BMI Screening 06/22/2026 06/22/2025 Tobacco Screening 06/22/2026 06/22/2025 DTaP,Tdap and Td Vaccines (4 - Td or Tdap) 05/11/2035 05/11/2025, 07/25/2021, 01/30/2011 Zoster (Shingles) Vaccine Completed 2021, 10/24/2021, 02/09/2015 COVID-19 Vaccine Discontinued 11/14/2022, 03/2021, 01/19/2021, Additional history exists Goals Goal Patient Goal Type Associated Problems Recent Progress Patient-Stated? Author Discharge with home care General Yes Carmen Yañez, RN Note: Evaluation of progress towards goal: Discharge home with & [facility] Medical Devices Not on file Procedures Procedure Name Priority Date/Time Associated Diagnosis Comments FL SWALLOW MOTILITY FUNCTION Routine 06/28/2025 1:19 PM EDT Dysphagia, unspecified type XR CHEST 2 VWS STAT 06/27/2025 1:57 PM EDT PORTABLE INFLUENZA A/INFLUENZA B Routine 06/27/2025 1:54 PM EDT SARS COV 2 BY NAAT/MOLECULAR (POCT FSED) Routine 06/27/2025 1:53 PM EDT XR SPINE LUMBAR 2 OR 3 VWS Routine 06/22/2025 12:58 PM EDT Inflammatory polyarthritis (CMS-HCC) Seronegative rheumatoid arthritis (CMS-HCC) Primary osteoarthritis involving multiple joints Chronic bilateral low back pain without sciatica HAPTOGLOBIN Routine 06/08/2025 8:52 AM EDT Weight loss CLINICAL PATHOLOGY BLOOD SMEAR REVIEW Routine 06/08/2025 8:52 AM EDT Hyperbilirubinemia LDL CHOLESTEROL, DIRECT Routine 06/08/2025 8:52 AM EDT Hyperbilirubinemia BASIC METABOLIC PANEL Routine 06/08/2025 8:52 AM EDT Weight loss Hyperbilirubinemia Iron deficiency anemia, unspecified iron deficiency anemia type CBC WITH AUTO DIFFERENTIAL Routine 06/08/2025 8:52 AM EDT Inflammatory polyarthritis (CMS-HCC) Seronegative rheumatoid arthritis ([facility]) Medication monitoring encounter LIVER PANEL Routine 06/08/2025 8:52 AM EDT Inflammatory polyarthritis (CMS-HCC) Seronegative rheumatoid arthritis (CMS-HCC) Medication monitoring encounter ERYTHROCYTE SEDIMENTATION RATE (ESR) Routine 06/08/2025 8:52 AM EDT Inflammatory polyarthritis (CMS-HCC) Seronegative rheumatoid arthritis (CMS-HCC) Medication monitoring encounter C-REACTIVE PROTEIN Routine 06/08/2025 8: 52 AM EDT Inflammatory polyarthritis ([facility]) Seronegative rheumatoid arthritis ([facility]) Medication monitoring encounter [place] INBODY 970 BODY COMPOSITION ANALYSIS Routine 05/03/2025 3:49 PM EDT POCT HEARING SCREENING Routine 3:[address] [facility] HE[facility] WO CONT/INCL SCORING STAT 05/03/2025 1:10 PM EDT Health care maintenance URINALYSIS Routine 05/03/2025 8:41 AM EDT Dysuria Frequency of urination URINE CULTURE Routine 05/03/2025 8:41 AM EDT Dysuria Frequency of urination DEXA [facility] SCAN CENTRAL SKELETAL STAT 05/03/2025 8:30 AM EDT Health care maintenance POCT EKG Routine 05/03/2025 7:43 AM EDT Health care maintenance MR [facility] BODY STAT 04/25/2025 12:06 PM EDT Health care maintenance MR [facility] NEURO STAT 04/25/2025 11:43 AM EDT Health care maintenance URINALYSIS Routine 04/25/2025 11:30 AM EDT Health care maintenance MICROALBUMIN / CREATININE URINE RATIO Routine 04/25/2025 11:30 AM EDT Health care maintenance MR ÁLVAREZ CARDIAC STAT 04/25/2025 10: 58 AM EDT Health care maintenance ARUP GENERIC ORDER #1 Routine 04/25/2025 10:03 AM EDT Health care maintenance VITAMIN D 25 HYDROXY Routine 04/25/2025 10:03 AM EDT Health care maintenance VITAMIN B12 Routine 04/25/2025 10:03 AM EDT Health care maintenance URIC ACID Routine 04/25/2025 10:03 AM EDT Health care maintenance TSH Routine 04/25/2025 10:03 AM EDT Health care maintenance T4, FREE Routine 04/25/2025 10:03 AM EDT Health care maintenance T3, FREE Routine 04/25/2025 10:03 AM EDT Health care maintenance SEX HORMONE BINDING GLOBULIN Routine 04/25/2025 10:03 AM EDT Health care maintenance PROLACTIN Routine 04/25/2025 10:03 AM EDT Health care maintenance PROGESTERONE Routine 04/25/2025 10:03 AM EDT Health care maintenance PHOSPHORUS Routine 04/25/2025 10:03 AM EDT Health care maintenance MAGNESIUM Routine 04/25/2025 10:03 AM EDT Health care maintenance LUTEINIZING HORMONE Routine 04/25/2025 1 0:03 AM EDT Health care maintenance LIPOPROTEIN(A), S Routine 04/25/2025 10: 03 AM EDT Health care maintenance LIPID PROFILE Routine 04/25/2025 10:03 AM EDT Health care maintenance LDH Routine 04/25/2025 10:03 AM EDT Health care maintenance IRON AND TIBC Routine 04/25/2025 10:03 AM EDT Health care maintenance INSULIN Routine 04/25/2025 10:03 AM EDT Health care maintenance INSULIN-LIKE GFB PROTEIN 3 Routine 04/25/2025 10:03 AM EDT Health care maintenance HOMOCYSTEINE, PLASMA Routine 04/25/2025 10:03 AM EDT Health care maintenance HIGH SENSITIVITY CRP Routine 04/25/2025 10:03 AM EDT Health care maintenance HEPATITIS C(HCV) ANTIBODY W/REFLEX TO PCR Routine 04/25/2025 10:03 AM EDT Health care maintenance HEMOGLOBIN A1C Routine 04/25/2025 10:03 AM EDT Health care maintenance GGT Routine 04/25/2025 10:03 AM EDT Health care maintenance FOLLICLE STIMULATING HORMONE Routine 04/25/2025 10:03 AM EDT Health care maintenance FERRITIN Routine 04/25/2025 10:03 AM EDT Health care maintenance ESTRADIOL Routine 04/25/2025 10:03 AM EDT Health care maintenance ERYTHROCYTE SEDIMENTATION RATE (ESR) Routine 04/25/2025 10:03 AM EDT Health care maintenance DIHYDROTESTOSTERONE, S Routine 10:03 AM EDT Health care maintenance DHEA-SULFATE Routine 04/25/2025 10:03 AM EDT Health care maintenance CORTISOL Routine 04/25/2025 10:03 AM EDT Health care maintenance COMPREHENSIVE METABOLIC PANEL Routine 04/25/2025 10:03 AM EDT Health care maintenance CBC WITH AUTO DIFFERENTIAL Routine 04/25/2025 10:03 AM EDT Health care maintenance BILIRUBIN, DIRECT Routine 04/25/2025 10: 03 AM EDT Health care maintenance APOLIPOPROTEIN B, S Routine 04/25/2025 1 0:03 AM EDT Health care maintenance APOLIPOPROTEIN A1, S Routine 04/25/2025 10:03 AM EDT Health care maintenance POCT NURSING URINE MACROSCOPIC UA Routine 04/17/2025 9:12 PM EDT ER EXTRA URINE STAT 04/17/2025 9:[address] ABDOMEN AND PELVIS WO CONT STAT 04/17/2025 7:[address] CHEST WO CONT STAT 04/17/2025 7:[address] BRAIN WO CONT STAT 04/17/2025 7:51 PM EDT LACTATE W/ REFLEX STAT 04/17/2025 7:1 7 PM EDT TROP I, HIGH SENSITIVITY 1 HOUR STAT 04/17/2025 7:17 PM EDT TROPONIN I, HIGH SENSITIVITY 0 HOUR STAT 04/17/2025 5:24 PM EDT T4, FREE STAT 04/17/2025 5:24 PM EDT TSH STAT 04/17/2025 5:24 PM EDT APTT STAT 04/17/2025 5:24 PM EDT PROTIME & INR STAT 04/17/2025 5:24 PM EDT COMPREHENSIVE METABOLIC PANEL STAT 04/17/2025 5:24 PM EDT CBC WITH AUTO DIFFERENTIAL STAT 04/17/2025 5:24 PM EDT TROPONIN I, HIGH SENSITIVITY 0 HOUR STAT 04/17/2025 5:24 PM EDT BEDSIDE GLUCOSE Routine 04/17/2025 5:22 PM EDT ECG 12-LEAD STAT 04/17/2025 5:17 PM EDT MAMM DIAGNOSTIC BILATERAL W CAD Routine 11/04/2024 9:26 AM EST Mass of upper inner quadrant of right breast HM COLONOSCOPY Routine 10/29/2015 from Last 3 Months or Most Recently Relevant to Health Maintenance Results * Fluoroscopy swallow motility function (06/28/2025 [...] Stinson MD IMG FLUOROSCOPY ORDERABLES Final Result * X-ray chest 2 views (06/27/2025 1:57 PM EDT) Anatomical Region Laterality Modality Body, Chest N/A Computed Radiogr aphy 06/27/2025 1:59 PM EDT Narrative 06/27/2025 2:00 PM EDT And lateral chest: HISTORY: Cough. 2 views the chest are obtained. Cardiac and mediastinal contours are within normal limits. Lungs are clear. There is no vascular congestion, effusion, or pneumothorax. Osseous structures appear intact. Changes of COPD noted. IMPRESSION: COPD. Finalized by Enrico Mayfield MD on 06/27/2025 2:00 PM Procedure Note Enrico Mayfield MD - 06/27/2025 And lateral chest: HISTORY: Cough. 2 views the chest are obtained. Cardiac and mediastinal contours arewithin normal limits. Lungs are clear. There is no vascular congestion,effusion, or pneumothorax. Osseous structures appear intact. Changes ofCOPD noted. IMPRESSION: COPD. 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 IMG DIAGNOSTIC IMAGING O RDERABLES Final Result * Portable Influenza A/Influenza B (06/27/2025 1:54 PM EDT) POC Influenza A by NAAT/Molecular Negative Negative 06/27/2025 2:05 PM EDT [facility] P[facility] Influenza B by NAAT/Molecular Negative Negative 06/27/2025 2:05 PM EDT [facility] 06/27/2025 1:54 PM EDT 06/27/2025 2:05 PM EDT Narrative [facility] - 06/27/2025 2:05 PM EDT The ID NOW Influenza A and B2 assay performed on the ID NOW instrument is a rapid molecular invitro diagnostic test utilizing an isothermal nucleic acid amplification technology for the qualitative detection and discrimination of Influenza A and B viral RNA in direct nasopharyngeal swabs from patients with signs and symptoms of respiratory infection and epidemiological risk factors POINT OF CARE TEST ORDERABLES Fi nal Result [facility] [address] [place] [address], * SARS CoV 2 by NAAT/Molecular (POCT FSED) (06/27/2025 1:53 PM EDT) SARS CoV2 by NAAT/Molecul ar Presumptive Negative Presumptive Negative 06/27/2025 2:03 PM EDT [facility] Swab Nasopharyngeal structure / Unknown 06/27/2025 1:53 PM EDT 06/27/2025 2:03 PM EDT Narrative [facility] - 06/27/2025 2:03 PM EDT NOTE - ID NOW COVID-19 assay performed on the ID NOW instrument is a rapid molecular invitro diagnostic test utilizing an isothermal nucleic acid amplification technology intended for the qualitative detection of nucleic acid from the SARS-CoV-2 viral RNA in direct nasal, nasopharyngeal or throat swabs from indviduals who are suspected of COVID-19 by their healthcare provider. This test has not been evaluated on asymptomatic patients. Results are for the identification of SARS-CoV-2 RNA. The SARS-CoV-2 RNA is generally detectable in respiratory samples during the acute phase of infection. Positive results are indicative of the presence of SARS-CoV-2 RNA; clinical correlation with patient history and other diagnostic information is necessary to determine patient infection status. Positive results do not rule out bacterial infection or co-infection with other viruses. Negative results should be treated as presumptive and, if inconsistent with clincal signs and symptoms or necessary for patient management, should be tested with different authorized or cleared molecular tests. Negative results do not preclude SARS-CoV-2 infection and should not be used as the sole basis for patient management decisions. Negative results should be considered in the context of a patients recent exposures, history and the presence of clinical signs and symptoms consistent with COVID-19. The ID NOW COVID-19 test is intended for use by medical review coordinator or trained operators who are proficient in performing tests using the ID NOW instrument. The ID NOW COVID-19 test is only for use under the Food and Drug Administration's Emergency Use Authorization. Fact Sheet for Healthcare Providers: https://www.fda.gov/media/740969/download Fact Sheet for Patients: https://www.fda.gov/media/159556/download us POINT OF CARE TEST ORDERABLES Fi nal Result [facility] [address] [place] [address], * X-ray spine lumbar 2 or 3 views (06/22/2025 12:58 PM EDT) Anatomical Region Laterality Modality MSK, Neuro, Spine, L-spine N/A Compu dana Radiography 06/24/2025 6:35 AM EDT Narrative 06/24/2025 6:36 AM EDT XR SPINE LUMBAR 2 OR 3 VWS Clinical history:Inflammatory polyarthritis (CMS-HCC); Seronegative rheumatoid arthritis (CMS-HCC); Primary osteoarthritis involving multiple joints; Chronic bilateral low back pain without sciatica Comparison: 04/13/2023 Impression: Multilevel degenerative disc disease with disc loss and endplate degenerative changes throughout the lumbar spine most pronounced at L4-L5 and L5-S1. Multilevel facet hypertrophy. No vertebral body height loss. No evidence of acute osseous abnormalities. Finalized by Ashok Kramer MD on 06/24/2025 6:36 AM Procedure Note Ashok Kramer MD - 06/24/2025 XR SPINE LUMBAR 2 OR 3 VWS Clinical history:Inflammatory polyarthritis (CMS-HCC); Seronegativerheumatoid arthritis (CMS-HCC); Primary osteoarthritis involving multiplejoints; Chronic bilateral low back pain without sciatica Comparison: 04/13/2023 Impression: Multilevel degenerative disc disease with disc loss and endplatedegenerative changes throughout the lumbar spine most pronounced at L4-L5and L5-S1. Multilevel facet hypertrophy. No vertebral body height loss. Noevidence of acute osseous abnormalities. Finalized by Ashok Kramer MD on 06/24/2025 6:36 AM Neli Clemente MD MPH IMG DIAGNOSTIC IMAGING ORDERABLES Final Result * (ABNORMAL) Erythrocyte Sedimentation Rate (ESR) (06/08/2025 8:52 AM EDT) Only the most recent of2 resultswithin the time period is included. ESR, Erythrocyte Sedimentation Rate 33(H) 0 - 30 mm/h 06/08/2025 12:42 PM EDT [facility] Blood Venous blood / Unknown Venipuncture / Unknown 06/08/2025 8:52 AM EDT 06/08/2025 8:52 AM EDT Neli Clemente MD MPH LAB BLOOD ORDERABLES F inal Result [facility] [address] [place] [address], [place] [phone] * Clinical Pathology Blood Smear Review (06/08/2025 8:52 AM EDT) Case Report Clinical Pathology Report Case: [id number] Authorizing Provider: CIARRA Osei Collected: 06/08/2025 0852 [facility] Received: 06/08/2025 0852 [facility] Pathologist: Rinku Abrams MD Specimen: Blood, Venous 06/09/2025 2:28 PM EDT [facility] Final Diagnosis No significant WBC, RBC or platelet abnormality is identified. No blasts are identified. The patient previous CBC history is noted. 06/09/2025 2:28 PM EDT [facility] at 1428 EDT Embedded Images 06/09/2025 2:28 PM EDT [facility] Blood Venous blood / Unknown Venipuncture / Unknown 06/08/2025 8:52 AM EDT 06/08/2025 8:52 AM EDT us Jesenia LAFLEUR LAB BLOOD ORDERABLES Fi nal Result [facility] [address] [place] [address], * (ABNORMAL) CBC auto differential (06/08/2025 8:52 AM EDT) Only the most recent of3 resultswithin the time period is included. WBC 5.9 4 - 11 x10E9/L 06/08/2025 12:08 PM EDT [facility] RBC Count 4.20 3.8 - 5.2 X10E12/L 06/08/2025 12:08 PM EDT [facility] Hemoglobin 12.7 11.7 - 15.5 g/dL 06/08/2025 12:08 PM EDT [facility] Hematocrit 39.0 35 - 47 % 06/08/2025 12:08 PM EDT [facility] MCV 93 80 - 100 fL 06/08/2025 12:08 PM EDT [facility] MCH 30.1 27 - 34 pg 06/08/2025 12:08 PM EDT [facility] MCHC 32.4 32 - 36 g/dL 06/08/2025 12:08 PM EDT [facility] RDW 15.8(H) 11.5 - 15 % 06/08/2025 12:08 PM EDT [facility] Platelet Count 270 150 - 450 X10E9/L 06/08/2025 12:08 PM EDT [facility] MPV 9.1 7 - 12 fL 06/08/2025 12:08 PM EDT [facility] Neutrophils % 68.5 % 06/08/2025 12:08 PM EDT [facility] Lymphocytes % 16.8 % 06/08/2025 12:08 PM EDT [facility] Monocytes % 6.6 % 06/08/2025 12:08 PM EDT [facility] Eosinophils % 7.7 % 06/08/2025 12:08 PM EDT [facility] Basophils % 0.4 % 06/08/2025 12:08 PM EDT [facility] Neutrophils Absolute (A) 4.1 1.5 - 6.6 10*3/uL 06/08/2025 12:08 PM EDT [facility] Lymphocytes Absolute 1.0 1.0 - 3.5 10*3/uL 06/08/2025 12:08 PM EDT [facility] Monocytes Absolute 0.4 0.0 - 0.9 10*3/uL 06/08/2025 12:08 PM EDT [facility] Eosinophils Absolute 0.5(H) 0.0 - 0.4 10*3/uL 06/08/2025 12:08 PM EDT [facility] Basophils Absolute 0.0 0.0 - 0.2 10*3/uL 06/08/2025 12:08 PM EDT [facility] Differential Type AUTOMATED DIFFERENTIAL 06/08/2025 12:08 PM EDT [facility] Blood Venous blood / Unknown Venipuncture / Unknown 06/08/2025 8:52 AM EDT 06/08/2025 8:52 AM EDT Neli Clemente MD MPH LAB BLOOD ORDERABLES F inal Result Performing Organization Address City/[facility]/ZIP Co de Phone Number [facility] [address] [place] [address], [place] [phone] * C-reactive protein (06/08/2025 8:52 AM EDT) C REACTIVE PROTEIN <0.1 <=0.7 mg/dL 06/08/2025 12:28 PM EDT [facility] Blood Venous blood / Unknown Venipuncture / Unknown 06/08/2025 8:52 AM EDT 06/08/2025 8:52 AM EDT Neli Clemente MD MPH LAB BLOOD ORDERABLES F inal Result Performing Organization Address City/[facility] Co de Phone Number [facility] [address] [place] [address], [place] [phone] * LDL cholesterol, direct (06/08/2025 8:52 AM EDT) DIRECT LDL 60 <=130 mg/dL 06/08/2025 12:28 PM EDT [facility] Comment: LDL <100 mg/dL - Desirable LDL 130-159 mg/dL - Borderline High Risk LDL >160 mg/dL - High Risk Blood Venous blood / Unknown Venipuncture / Unknown 06/08/2025 8:52 AM EDT 06/08/2025 8:52 AM EDT Jesenia Peng LEAD MAN 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 LAB BLOOD ORDERABLES Fi nal Result [facility] [address] [place] [address], [place] [phone] * Haptoglobin (06/08/2025 8:52 AM EDT) HAPTOGLOBIN 215 32 - 228 mg/dL 06/08/2025 12:28 PM EDT [facility] Blood Venous blood / Unknown Venipuncture / Unknown 06/08/2025 8:52 AM EDT 06/08/2025 8:52 AM EDT Jesenia Peng LEAD MAN 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 LAB BLOOD ORDERABLES Fi nal Result [facility] [address] [place] [address], * (ABNORMAL) Liver panel (06/08/2025 8:52 AM EDT) TOTAL PROTEIN 7.2 6.0 - 8.0 g/dL 06/08/2025 12:28 PM EDT [facility] ALBUMIN 4.4 3.2 - 5.3 g/dL 06/08/2025 12:28 PM EDT [facility] BILIRUBIN,TOTAL 1.5(H) 0.3 - 1.2 mg/dL 06/08/2025 12:28 PM EDT [facility] ALKALINE PHOSPHATASE 87 39 - 130 U/L 06/08/2025 12:28 PM EDT [facility] AST 25 <=41 U/L 06/08/2025 12:28 PM EDT [facility] ALT 7 <=31 U/L 06/08/2025 12:28 PM EDT [facility] BILIRUBIN,DIRECT 0.3 <=0.4 mg/dL 06/08/2025 12:28 PM EDT [facility] Blood Venous blood / Unknown Venipuncture / Unknown 06/08/2025 8:52 AM EDT 06/08/2025 8:52 AM EDT us Neli Cleemnte MD MPH LAB BLOOD ORDERABLES F inal Result [facility] [address] [place] [address], [place] [phone] * Basic Metabolic Panel (06/08/2025 8:52 AM EDT) SODIUM 141 134 - 146 mmol/L 06/08/2025 12:28 PM EDT [facility] POTASSIUM 4.9 3.5 - 5.0 mmol/L 06/08/2025 12:28 PM EDT [facility] CHLORIDE 100 98 - 109 mmol/L 06/08/2025 12:28 PM EDT [facility] CARBON DIOXIDE 32 22 - 32 mmol/L 06/08/2025 12:28 PM EDT [facility] ANION GAP 9 5 - 15 mmol/L 06/08/2025 12:28 PM EDT [facility] BLOOD UREA NITROGEN 20 5 - 27 mg/dL 06/08/2025 12:28 PM EDT [facility] CREATININE 0.60 0.40 - 1.00 mg/dL 06/08/2025 12:28 PM EDT [facility] Comment:METHOD TRACEABLE TO IDMS STANDARD GLUCOSE 88 65 - 99 mg/dL 06/08/2025 12:28 PM EDT [facility] CALCIUM 9.8 8.5 - 10.5 mg/dL 06/08/2025 12:28 PM EDT [facility] EGFR Non-Race Dependent >90 >=60 ml/min/1.7 3sq.m 06/08/2025 12:28 PM EDT [facility] Comment: Reported eGFR is based on the CKD-EPI 2020 equation that does not use a race coefficient. Blood Venous blood / Unknown Venipuncture / Unknown 06/08/2025 8:52 AM EDT 06/08/2025 8:52 AM EDT Jesenia Peng LEAD MAN 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 LAB BLOOD ORDERABLES Fi nal Result [facility] [address] [place] [address], [place] [phone] * [place] INBODY 970 BODY COMPOSITION ANALYSIS (05/03/2025 3:49 PM EDT) us John Dominguez MD [employer] Final Result Performing Organization Address City/[facility] Co de Phone Number MANUALLY TRANSCRIBED RESULTS * POCT Hearing Screening (05/03/2025 3:48 PM EDT) Specimen of unknown material (specimen) us John Dominguez MD POINT OF CARE TEST ORDERABLES F inal Result Performing Organization Address [facility] [place]/[facility] Co de Phone Number MANUALLY TRANSCRIBED RESULTS * CT Icaria heart without contrast including scoring (05/03/2025 1:10 PM EDT) Anatomical Region Laterality Modality CT Coronary Icaria, Heart N/A Comput ed Tomography 05/03/2025 1:13 PM EDT Narrative 05/03/2025 1:25 PM EDT Noncontrast gated CT heart for coronary calcium scoring Clinical history:Health care maintenance. Comparison: None. TECHNIQUE: Gated noncontrast CT of the heart was obtained utilizing a [address] scanner[address] A separate workstation was utilized for subsequent data analysis. All CT scans at this facility use dose modulation, iterative reconstruction, and/or weight based dosing when appropriate to reduce radiation dose to as low as reasonably achievable. Findings: Agatston Score: The total (aggregate) calcium score using the AJ-130 method is 0. Total volume score is 0. NA% of similar patients have less coronary artery calcium. {this is reported using the interactive NEAL form found at http://www.neal- nhlbi.org} Individual major vessel AJ-130 scores are: LM = 0 LAD = 0 LCX = 0 RCA/PDA = 0 Other = Coronary artery event risk by CT coronary calcium Agatston score; 0 - very low risk; 1-99 - mildly increased risk; 100-299 -moderately increased risk; 300 or greater-moderate to severely increased risks. ADDITIONAL FINDINGS: No pleural or pericardial effusion. No active lung disease. 4 mm noncalcified nodule left lung base. Additional focus of scarring versus 6 mm spiculated nodule right middle lobe.. Impression: * Total calcium score 0. This corresponds with a very low risk of coronary event. * Indeterminate solid pulmonary nodule measuring between 6 and 8 mm. In a high- risk patient with a solid nodule of 6-8 mm, recommend CT at 6-12 months. If stable, then CT at 18-24 months. Consider further evaluation if there is multi-vessel or left main predominant disease present. Limitations: This report is limited to the cardiac findings from this examination. Calcium Score interpretation and guidelines for asymptomatic individuals, 45 - 75 years of age are as follows: Estimated Risk of a Total Score Relative Risk Coronary Event Each Year 0 very low risk 2 per 1000 1-10 low risk 5 per 1000 11-100 intermediate risk 5 to 20 per 1000 101-400 moderately high risk more than 2 per 100 over 400 high risk between 2 and 5 per 100; approximately 15% chance of significant blockages; consideration should be given to obtaining stress echo or stress nuclear testing. Geri Manning, et al. Guidelines for Management of Incidental Pulmonary Nodules Detected on CT Images: From the Fleischner Society 2017. Radiology. 2017 Lei;284(1):228- 243. Finalized by Frederic Mays DO on 05/03/2025 1:25 PM Procedure Note Frederic Mays DO - 05/03/[address] heart for coronary calcium scoring Clinical history:Health care maintenance. Comparison: None. TECHNIQUE: Gated noncontrast CT of the heart was obtained utilizing a 512slice BlooBox CT scanner. A separate workstation was utilized forsubsequent data analysis. All CT scans at this facility use dosemodulation, iterative reconstruction, and/or weight based dosing whenappropriate to reduce radiation dose to as low as reasonably achievable. Findings: Agatston Score: The total (aggregate) calcium score using the AJ-130method is 0. Total volume score is 0. NA% of similar patients have lesscoronary artery calcium. {this is reported using the interactive NEAL formfound at http://www.neal- nhlbi.org} Individual major vessel AJ-130 scores are: LM = 0 LAD = 0 LCX = 0 RCA/PDA = 0 Other = Coronary artery event risk by CT coronary calcium Agatston score; 0 - verylow risk; 1-99 - mildly increased risk; 100-299 -moderately increasedrisk; 300 or greater-moderate to severely increased risks. ADDITIONAL FINDINGS: No pleural or pericardial effusion. No active lung disease. 4 mm noncalcified nodule left lung base. Additional focus of scarring versus 6 mm spiculated nodule right middlelobe.. Impression: * Total calcium score 0. This corresponds with a very low risk ofcoronary event. * Indeterminate solid pulmonary nodule measuring between 6 and 8 mm. In ahigh- risk patient with a solid nodule of 6-8 mm, recommend CT at 6-12months. If stable, then CT at 18-24 months. Consider further evaluation if there is multi-vessel or left mainpredominant disease present. Limitations: This report is limited to the cardiac findings from thisexamination. Calcium Score interpretation and guidelines for asymptomatic individuals,45 - 75 years of age are as follows: Estimated Risk of a Total Score Relative Risk Coronary Event Each Year 0 very low risk 2 per 1000 1-10 low risk 5 per 1000 11-100 intermediate risk 5 to 20 per 1000 101-400 moderately high risk more than 2 per 100 over 400 high risk between 2 and 5 per 100;approximately 15% chance ofsignificant blockages; consideration should be given toobtaining stress echo or stress nuclear testing. Geri Manning et al. Guidelines for Management of Incidental PulmonaryNodules Detected on CT Images: From the Fleischner Society 2017.Radiology. 2017 Lei;284(1):228- 243. Finalized by Frederic Mays DO on 05/03/2025 1:25 PM us John Dominguez MD IMG CT ORDERABLES Final Result * Urinalysis (05/03/2025 8:41 AM EDT) Only the most recent of2 resultswithin the time period is included. COLOR Colorless Yellow, Colorless 05/03/2025 12:46 PM EDT [facility] TURBIDITY Clear Clear 05/03/2025 12:46 PM EDT [facility] SPECIFIC GRAVITY 1.011 1.003 - 1.035 05/03/2025 12:46 PM EDT [facility] NITRITE Negative Negative 05/03/2025 12:46 PM EDT [facility] PH,URINE 6.5 5.0 - 8.5 05/03/2025 12:46 PM EDT [facility] LEUKOCYTE ESTERASE Negative Negative 05/03/2025 12:46 PM EDT [facility] PROTEIN Negative Negative 05/03/2025 12:46 PM EDT [facility] KETONES (URINE) Negative Negative 12:46 PM EDT [facility] UROBILINOGEN <1.1 eu/dL <1.1 eu/dL 05/03/2025 12:46 PM EDT [facility] BILIRUBIN (URINE) Negative Negative 05/03/2025 12:46 PM EDT [facility] BLOOD/HGB Negative Negative 05/03/2025 12:46 PM EDT [facility] GLUCOSE (URINE) Negative Negative 12:46 PM EDT [facility] Urine Urine / Unknown 05/03/2025 8 :41 AM EDT 05/03/2025 8:56 AM EDT us John Dominguez MD URINE ORDERABLES Final Result [facility] [address] [place] [address], [place] [phone] * Urine culture (clean catch) (05/03/2025 8:41 AM EDT) CULTURE RESULTS NO GROWTH AT <1000 CFU/mL 05/04/2025 6:46 AM EDT [facility] Urine Urine specimen collection, clean catch / Unknown 05/03/2025 8:41 AM EDT 05/03/2025 8:56 AM EDT us John Dominguez MD MICROBIOLOGY - GENERAL ORDERABL ES Final Result [facility] [address] [place] [address], [place] [phone] * Dexa Icaria scan central skeletal (05/03/2025 8:30 AM EDT) Anatomical Region Laterality Modality N/A DXA Scan 05/03/2025 8:45 AM EDT Narrative 05/03/2025 8:47 AM EDT CLINICAL HISTORY: Osteoporosis screening. Health care maintenance. COMPARISON: None Dual X-ray Absorptiometry (DEXA) was performed. LUMBAR SPINE (L1-L4): Bone density is 1.385 gm/cm2 T-score is 1.7. Z-score is 4.4. LEFT FEMORAL NECK: Bone density is 0.786 gm/cm2. T-score is -1.8. Z-score is 0.6. LEFT FEMUR TOTAL: Bone density is 0.905 gm/cm2. T-score is -0.8. Z-score is 1.5. RIGHT FEMORAL NECK: Bone density is 0.803 gm/cm2. T-score is -1.7. Z-score is -0.7. RIGHT FEMUR TOTAL: Bone density is 0.914 gm/cm2. T-score is -0.7. Z-score is 1.6. If this patient is not currently on therapy, the 10-year probability for a major osteoporotic fracture (utilizing FRAX) is 11.3% and for a hip fracture is 3.1%. (According to WHO, therapy is indicated if 10-year risk for major osteoporotic fracture is greater than or equal to 20% or the 10-risk for a hip fracture is greater than or equal to 3%.) IMPRESSION: * Osteopenia bone mineral density by the WHO criteria (using T-scores) . WORLD HEALTH ORGANIZATION (WHO) GUIDELINES: T-score of -1 or greater = Normal T-score less than -1.0 but greater than -2.5 = Osteopenia T-score of -2.5 or less = Osteoporosis In patients, who are osteopenic or osteoporotic, hormonal therapy, other medical therapy, dietary supplementation, and weight bearing exercise may prevent further bone mineral loss. Repeat DEXA testing may be indicated but is based on individual patient clinical characteristics. Finalized by Ashok Valencia MD on 05/03/2025 8:47 AM Procedure Note Ashok Valencia MD - 05/03/2025 CLINICAL HISTORY: Osteoporosis screening. Health care maintenance. COMPARISON: None Dual X-ray Absorptiometry (DEXA) was performed. LUMBAR SPINE (L1-L4): Bone density is 1.385 gm/cm2 T-score is 1.7. Z-score is 4.4. LEFT FEMORAL NECK: Bone density is 0.786 gm/cm2. T-score is -1.8. Z-score is 0.6. LEFT FEMUR TOTAL: Bone density is 0.905 gm/cm2. T-score is -0.8. Z-score is 1.5. RIGHT FEMORAL NECK: Bone density is 0.803 gm/cm2. T-score is -1.7. Z-score is -0.7. RIGHT FEMUR TOTAL: Bone density is 0.914 gm/cm2. T-score is -0.7. Z-score is 1.6. If this patient is not currently on therapy, the 10-year probability for amajor osteoporotic fracture (utilizing FRAX) is 11.3% and for a hipfracture is 3.1%. (According to WHO, therapy is indicated if 10-year riskfor major osteoporotic fracture is greater than or equal to 20% or [id number] for a hip fracture is greater than or equal to 3%.) IMPRESSION: * Osteopenia bone mineral density by the WHO criteria (using T-scores). WORLD HEALTH ORGANIZATION (WHO) GUIDELINES: T-score of -1 or greater = Normal T-score less than -1.0 but greater than -2.5 = Osteopenia T-score of -2.5 or less = Osteoporosis In patients, who are osteopenic or osteoporotic, hormonal therapy, othermedical therapy, dietary supplementation, and weight bearing exercise mayprevent further bone mineral loss. Repeat DEXA testing may be indicatedbut is based on individual patient clinical characteristics. Finalized by Ashok Valencia MD on 05/03/2025 8:47 AM us John Dominguez MD IMG DXA ORDERABLES Final Result * POCT EKG (05/03/2025 7:43 AM EDT) us John Dominguez MD ECG ORDERABLES Final Result TRACEMASTERVUE * MR Álvarez Body (04/25/2025 12:06 PM EDT) Anatomical Region Laterality Modality Body Icaria N/A Magnetic Resonan ce 04/25/2025 1:30 PM EDT Narrative 04/25/2025 1:34 PM EDT MR ICARIA BODY CLINICAL INFORMATION: Health care maintenance. Health care maintenance TECHNIQUE: MRI imaging from the lung apices to the mid thigh was performed on a 3 [place] superconducting Siemens magnet utilizing multiplanar multisequence MRI imaging. COMPARISON: No relevant prior studies available. FINDINGS: CHEST: Lungs and large airways: No large parenchymal mass. Middle lobe 6 mm pulmonary nodule better visualized on the recent chest CT. Pleura: No pleural fluid collection or thickening. Unremarkable. Mediastinum and nafisa: No enlarged lymph nodes. Unremarkable. Chest wall and lower neck: Unremarkable. Vessels: Normal flow voids. Marrow: Normal. ABDOMEN: Liver: Unremarkable. Bile ducts: Normal. Gallbladder: No large gallstones. Normal caliber wall. Pancreas: Unremarkable. Spleen: Unremarkable. Spleen size 8.8 cm. (Normal spleen size 10-13 cm). Adrenals: Unremarkable. Kidneys: 7 cm bilateral renal cysts are seen requiring no additional follow-up imaging. Otherwise, unremarkable. Bowel: No bowel dilatation. Mesenteric lymph nodes: No enlarged mesenteric lymph nodes. Peritoneum: No ascites. No fluid collections. Vessels: Normal flow voids. Retroperitoneum: Normal. Abdominal wall: Unremarkable. Marrow: Normal. PELVIS: Reproductive organs: No pelvic masses. Bladder: Unremarkable. Peritoneum: No ascites. No fluid collection. Vessels: Normal flow voids. Marrow: Normal. Degenerative endplate degenerative changes of the lumbar spine. IMPRESSION: Chest: No abnormal masses. No acute findings. Abdomen: No abnormal masses. No acute findings. Pelvis: No abnormal masses. No acute findings. Disclaimers and limitations: Disclaimer: The whole body noncontrast MRI is not a substitute for screening exams are tests such as colonoscopy, PSA testing, low-dose screening chest CT, etc. This exam is meant to be used as a complement to standard of care screening tests, not as a replacement for the most tests. Whole-body screening has not been rigorously investigated as a screening tool and is not approved for clinical use. The test is for research use only. Whole-body screening is likely be most effectively performed annually. Tumor doubling times vary depending on the organ and, therefore, even yearly imaging could miss early tumors in some organ such as brain tumors. Please consult with your primary care physician for recommended screening test. Limitations: This technique is limited in its ability to identify small tumors may have limited ability to detect tumors of any size given the lack of intravenous contrast. This technique does not screen for blood-borne tumors such as leukemia, or skin tumors such as melanoma or basal cell carcinoma. Due to lack of bowel preparation and presence of ingested contents, this technique may be especially insensitive to tumors of the digestive tract, particularly colon and rectal tumors. Due to presence of air in the lungs, this technique may be especially insensitive for pulmonary tumors. This exam does not evaluate joints or bones for common musculoskeletal pathology such as fractures, degenerative joint disease, cartilage anomalies, tendon or ligament pathology, etc. Finalized by Ashok Kramer MD on 04/25/2025 1:34 PM Procedure Note Ashok Kramer MD - 04/25/2025 MR ICARIA BODY CLINICAL INFORMATION: Health care maintenance. Health care maintenance TECHNIQUE: MRI imaging from the lung apices to the mid thigh was performedon a 3 [place] superconducting Siemens magnet utilizing multiplanarmultisequence MRI imaging. COMPARISON: No relevant prior studies available. FINDINGS: CHEST: Lungs and large airways: No large parenchymal mass. Middle lobe 6 mm pulmonary nodule better visualized on the recent chestCT. Pleura: No pleural fluid collection or thickening. Unremarkable. Mediastinum and nafisa: No enlarged lymph nodes. Unremarkable. Chest wall and lower neck: Unremarkable. Vessels: Normal flow voids. Marrow: Normal. ABDOMEN: Liver: Unremarkable. Bile ducts: Normal. Gallbladder: No large gallstones. Normal caliber wall. Pancreas: Unremarkable. Spleen: Unremarkable. Spleen size 8.8 cm. (Normal spleen size 10-13cm). Adrenals: Unremarkable. Kidneys: 7 cm bilateral renal cysts are seen requiring no additionalfollow-up imaging. Otherwise, unremarkable. Bowel: No bowel dilatation. Mesenteric lymph nodes: No enlarged mesenteric lymph nodes. Peritoneum: No ascites. No fluid collections. Vessels: Normal flow voids. Retroperitoneum: Normal. Abdominal wall: Unremarkable. Marrow: Normal. PELVIS: Reproductive organs: No pelvic masses. Bladder: Unremarkable. Peritoneum: No ascites. No fluid collection. Vessels: Normal flow voids. Marrow: Normal. Degenerative endplate degenerative changes of the lumbar spine. IMPRESSION: Chest: No abnormal masses. No acute findings. Abdomen: No abnormal masses. No acute findings. Pelvis: No abnormal masses. No acute findings. Disclaimers and limitations: Disclaimer: The whole body noncontrast MRI is not a substitute forscreening exams are tests such as colonoscopy, PSA testing, low-dosescreening chest CT, etc. This exam is meant to be used as a complement tostandard of care screening tests, not as a replacement for the most tests.Whole-body screening has not been rigorously investigated as a screening tool and isnot approved for clinical use. The test is for research use only.Whole-body screening is likely be most effectively performed annually.Tumor doubling times vary depending on the organ and, therefore, evenyearly imaging could miss early tumors in some organ such as brain tumors. Pleaseconsult with your primary care physician for recommended screening test. Limitations: This technique is limited in its ability to identify smalltumors may have limited ability to detect tumors of any size given thelack of intravenous contrast. This technique does not screen forblood-borne tumors such as leukemia, or skin tumors such as melanoma orbasal cell carcinoma. Due to lack of bowel preparation and presence of ingestedcontents, this technique may be especially insensitive to tumors of thedigestive tract, particularly colon and rectal tumors. Due to presence ofair in the lungs, this technique may be especially insensitive forpulmonary tumors. This exam does not evaluate joints or bones for commonmusculoskeletal pathology such as fractures, degenerative joint disease,cartilage anomalies, tendon or ligament pathology, etc. Finalized by Ashok Kramer MD on 04/25/2025 1:34 PM John Dominguez MD IM MRI ORDERABLES Final Result * MR Icaria Neuro (04/25/2025 11:43 AM EDT) Anatomical Region Laterality Modality Neuro Icaria N/A Magnetic Resonan ce 04/25/2025 11:5 4 AM EDT Narrative 04/25/2025 12:05 PM EDT MR [facility] NEURO CLINICAL INFORMATION: Health care maintenance TECHNIQUE: Multiplanar multisequence MR imaging of the brain and [place] was performed on a 3 [place] superconducting Siemens unit, without intravenous contrast. Whole-body multisequence screening MRI performed without contrast, selective interpretation of the neck portions; remaining chest, abdomen, and pelvis is reported separately. Volume rendered 3-D post processed reformatted images were generated at an independent workstation, with Jir[employer] automated segmentation analysis, to further define anatomy and assist with longitudinal assessment. COMPARISON: No relevant prior studies available. FINDINGS: BRAIN: Parenchyma: No abnormal restricted diffusion. No sequelae of intracranial hemorrhage . Mild to moderate burden white matter FLAIR hyperintensities of the deep, subcortical and periventricular white matter. Ventricles and extra axial spaces: No ventricular outflow obstruction. Extracranial: Unremarkable scalp soft tissues, orbits, suprahyoid neck. Sequelae cosmetic interventions perioral region. NeuroQuant Triage Brain Atrophy Report and MS FLAIR Lesion reports were generated. White matter lesion count: [24] White matter lesion burden: [4.4] cm^3 The following areas fall near two standard deviations below the mean: [Caudate] (normative percentile[2nd]%) [Nucleus accumbens] (normative percentile[3rd]%) [Right cingulate] (normative percentile[2nd]%) [Posterior cingulate] (normative percentile[1st]%) [Superior frontal] (normative percentile[4th]%) [Medial orbital frontal] (normative percentile[1st]%) [Left supramarginal] (normative percentile[2nd]%) [Lateral occipital] (normative percentile[3rd]%) MRA: Anterior circulation: Unremarkable visualized internal carotid, anterior, and middle cerebral arteries. Posterior circulation: Unremarkable visualized Unremarkable visualized segments of the vertebral arteries, basilar artery, and posterior cerebral arteries. Aneurysm: No sizable saccular aneurysm. NECK: Glands: Unremarkable parotid, submandibular glands, thyroid Mucosal surfaces: No discrete nodular mucosal lesion seen. Vessels: Grossly unremarkable Lymph nodes: No adenopathy Osseous structures: Degenerative changes cervical spine, suspect some substantial thecal sac stenosis at C5-C6. IMPRESSION: * Ldmd-mn-[id number] burden white matter FLAIR hyperintensities, most often seen in the setting of chronic microvascular ischemia. * Unremarkable [place] MRA. * Several brain parenchymal regions are estimated as falling near two standard deviations below the mean. This is of uncertain, doubtful, clinical consequence. Overall brain parenchymal volume is within lower limits of normal. * Suboptimally assessed. Degenerative changes cervical spine, suspect some substantial thecal sac stenosis at C5-C6, please correlate with overall patient's symptoms. Disclaimers and limitations: This test has not been rigorously investigated as a screening tool and is not approved for clinical use, intended for investigational purposes only. Whole-body screening is likely to be most effective if performed annually. Tumor doubling times vary depending on the organ and specific underlying tumor genetics; therefore, even yearly imaging could miss early tumors in some organs, such as brain tumors. Please consult with your primary care physician for recommended screening tests. Furthermore, this technique is limited in its ability to identify small tumors, and certain tumors of any size, given the lack of intravenous contrast. This technique does not screen for blood-borne tumors such as leukemia, or skin tumors such as melanoma or basal cell carcinoma. Finalized by Kam Moon MD on 04/25/2025 12:05 PM Procedure Note Kam Moon MD - 04/25/2025 MR [facility] NEURO CLINICAL INFORMATION: Health care maintenance TECHNIQUE: Multiplanar multisequence MR imaging of the brain and [place] wasperformed on a 3 [place] superconducting Siemens unit, without intravenouscontrast. Whole-body multisequence screening MRI performed without contrast,selective interpretation of the neck portions; remaining chest, abdomen,and pelvis is reported separately. Volume rendered 3-D post processed reformatted images were generated at anindependent workstation, with Jir[employer] automated segmentation analysis,to further define anatomy and assist with longitudinal assessment. COMPARISON: No relevant prior studies available. FINDINGS: BRAIN: Parenchyma: No abnormal restricted diffusion. No sequelae of intracranialhemorrhage . Mild to moderate burden white matter FLAIR hyperintensitiesof the deep, subcortical and periventricular white matter. Ventricles and extra axial spaces: No ventricular outflow obstruction. Extracranial: Unremarkable scalp soft tissues, orbits, suprahyoid neck.Sequelae cosmetic interventions perioral region. NeuroQuant Triage Brain Atrophy Report and MS FLAIR Lesion reports weregenerated. White matter lesion count: [24] White matter lesion burden: [4.4] cm^3 The following areas fall near two standard deviations below the mean: [Caudate] (normative percentile[2nd]%) [Nucleus accumbens] (normative percentile[3rd]%) [Right cingulate] (normative percentile[2nd]%) [Posterior cingulate] (normative percentile[1st]%) [Superior frontal] (normative percentile[4th]%) [Medial orbital frontal] (normative percentile[1st]%) [Left supramarginal] (normative percentile[2nd]%) [Lateral occipital] (normative percentile[3rd]%) MRA: Anterior circulation: Unremarkable visualized internal carotid, anterior,and middle cerebral arteries. Posterior circulation: Unremarkable visualized Unremarkable visualized segments of the vertebralarteries, basilar artery, and posterior cerebral arteries. Aneurysm: No sizable saccular aneurysm. NECK: Glands: Unremarkable parotid, submandibular glands, thyroid Mucosal surfaces: No discrete nodular mucosal lesion seen. Vessels: Grossly unremarkable Lymph nodes: No adenopathy Osseous structures: Degenerative changes cervical spine, suspect somesubstantial thecal sac stenosis at C5-C6. IMPRESSION: * Iklg-ux-yfoundga burden white matter FLAIR hyperintensities, most oftenseen in the setting of chronic microvascular ischemia. * Unremarkable [place] MRA. * Several brain parenchymal regions are estimated as falling near twostandard deviations below the mean. This is of uncertain, doubtful,clinical consequence. Overall brain parenchymal volume is within lowerlimits of normal. * Suboptimally assessed. Degenerative changes cervical spine, suspectsome substantial thecal sac stenosis at C5-C6, please correlate withoverall patient's symptoms. Disclaimers and limitations: This test has not been rigorously investigated as a screening tool and isnot approved for clinical use, intended for investigational purposes only.Whole-body screening is likely to be most effective if performedannually. Tumor doubling times vary depending on the organ and specificunderlying tumor genetics; therefore, even yearly imaging could miss early tumors insome organs, such as brain tumors. Please consult with your primary carephysician for recommended screening tests. Furthermore, this technique islimited in its ability to identify small tumors, and certain tumors of any size, given the lack of intravenous contrast. This technique does notscreen for blood-borne tumors such as leukemia, or skin tumors such asmelanoma or basal cell carcinoma. Finalized by Kam Moon MD on 04/25/2025 12:05 PM us John Dominguez MD IM MRI ORDERABLES Final Result * (ABNORMAL) Microalbumin - Albumin: Creatinine Urine Ratio (04/25/2025 11:30 AM EDT) URINE CREATININE,RDM 18.80 mg/dL 04/25/2025 4:15 PM EDT [facility] MALB/CREAT RATIO 53.2(H) 0.0 - 30.0 mg/g 04/25/2025 4:15 PM EDT [facility] MICROALBUMIN, URINE 1.0 0.0 - 1.9 mg/dL 04/25/2025 4:15 PM EDT [facility] Urine Urine specimen collection, clean catch / Unknown 04/25/2025 11:30 AM EDT 04/25/2025 11:38 AM EDT us John Dominguez MD URINE ORDERABLES Final Result [facility] [address] [place] [address], [place] [phone] * MR Icaria cardiac (04/25/2025 10:58 AM EDT) Anatomical Region Laterality Modality MR Cardiac Icaria N/A Magnetic Reson ance 04/25/2025 1:29 PM EDT Narrative 04/25/2025 1:30 PM EDT MR ICARIA CARDIAC CLINICAL INFORMATION: Health care maintenance. Health care maintenance TECHNIQUE: MRI imaging of the heart was performed on a 3 [place] superconducting Siemens magnet utilizing multiplanar multisequence MRI imaging. COMPARISON: No relevant prior studies available. FINDINGS: Left ventricle: Left ventricular function: Normal left ventricular systolic function. Ejection fraction 69%. Left ventricular size: Normal left ventricular cavity size. Wall thickness: Normal left ventricular wall thickness. Right ventricle: Right ventricular size: Normal right ventricular size. Right ventricular function: Normal right ventricular systolic function. Left atrium: Left atrial size: The left atrium is normal size. Right atrium: Right atrium size: The right atrium is normal in size. Mitral valve: No mitral valve regurgitation is visualized. Tricuspid valve: No tricuspid valve regurgitation is visualized. Aortic valve: No aortic stenosis or regurgitation is visualized. Pericardium: No significant pericardial effusion. Aorta: Aortic root: Normal aortic root size. Left ventricular quantitative parameters as follows: Ejection Fraction 69% (normal: male = 49-79%; female = 52-79 %). End Diastolic Diameter is 35 mm (normal: Male: 42-62-mm, female = 39-59 mm). Stroke Volume 47 mL. End Diastolic Volume 68 mL (normal: male = 95-215 ml; female = 78-167 ml). End Systolic Volume 21 mL (normal: male = 25-85 ml, female = 21-64 ml). Anteroseptal wall thickness: 0.8 cm. Posterolateral wall thickness: 0.8 cm. There is mild motion artifact which does compromise this assessment. IMPRESSION: Left ventricular parameters including wall motion, function and size are within normal limits. Essentially unremarkable MRI of the soft tissue structures of the heart. Disclaimers and limitations: Valvular abnormalities are reported as noted, but the study was not optimized valvular evaluation and valvular abnormalities were identified with this study. No contrast was administered myocardial tissue characterization was not performed. This report is limited to the cardiac findings from the study and views were limited accordingly. Please see the concurrent chest MRI report for noncardiac chest findings. Orin Bradford, Chiki Navarrete., Gill Davidson et al. Reference ranges (?normal values?) for cardiovascular magnetic resonance (CMR) in adults and children: 2020 update. J Cardiovasc Magn Reson 22, 87 (2020). [email or web address] Finalized by Ashok Kramer MD on 04/25/2025 1:30 PM Procedure Note Ashok Kramer MD - 04/25/2025 MR ICARIA CARDIAC CLINICAL INFORMATION: Health care maintenance. Health care maintenance TECHNIQUE: MRI imaging of the heart was performed on a [employer] [place] [employer] magnet utilizing multiplanar multisequence MRI imaging. COMPARISON: No relevant prior studies available. FINDINGS: Left ventricle: Left ventricular function: Normal left ventricular systolic function.Ejection fraction 69%. Left ventricular size: Normal left ventricular cavity size. Wall thickness: Normal left ventricular wall thickness. Right ventricle: Right ventricular size: Normal right ventricular size. Right ventricular function: Normal right ventricular systolic function. Left atrium: Left atrial size: The left atrium is normal size. Right atrium: Right atrium size: The right atrium is normal in size. Mitral valve: No mitral valve regurgitation is visualized. Tricuspid valve: No tricuspid valve regurgitation is visualized. Aortic valve: No aortic stenosis or regurgitation is visualized. Pericardium: No significant pericardial effusion. Aorta: Aortic root: Normal aortic root size. Left ventricular quantitative parameters as follows: Ejection Fraction 69% (normal: male = 49-79%; female = 52-79 %). End Diastolic Diameter is 35 mm (normal: Male: 42-62-mm, female = 39-59mm). Stroke Volume 47 mL. End Diastolic Volume 68 mL (normal: male = 95-215 ml; female = 78-167ml). End Systolic Volume 21 mL (normal: male = 25-85 ml, female = 21-64 ml). Anteroseptal wall thickness: 0.8 cm. Posterolateral wall thickness: 0.8 cm. There is mild motion artifact which does compromise this assessment. IMPRESSION: Left ventricular parameters including wall motion, function and size arewithin normal limits. Essentially unremarkable MRI of the soft tissuestructures of the heart. Disclaimers and limitations: Valvular abnormalities are reported as noted, but the study was notoptimized valvular evaluation and valvular abnormalities were identifiedwith this study. No contrast was administered myocardial tissuecharacterization was not performed. This report is limited to the cardiacfindings from the study and views were limited accordingly. Please see the concurrent chestMRI report for noncardiac chest findings. Orin Bradford, Chiki Navarrete., Gill Davidson et al. Referenceranges (?normal values?) for cardiovascular magnetic resonance (CMR) inadults and children: 2020 update. J Cardiovasc Magn Reson 22, 87 (2020).[email or web address] Finalized by Ashok Kramer MD on 04/25/2025 1:30 PM John Dominguez MD [facility] [place] ORDERABLES Final Result * Lipoprotein(a), S (04/25/2025 10:03 AM EDT) LIPOPROTEIN(A), S <7 <75 nmol/L 04/26/2025 10:35 AM EDT [facility] Comment: ADDITIONAL INFORMATION Please notice that Lp(a) values are reported in molar units (nmol/L). These units are recommended by professional society guidelines and expert opinion statements. Measured results and risk thresholds are higher than those generated using mass units (mg/dL). Cardiovascular risk increases starting at 75 nmol/L. Lp(a) >=125 nmol/L is considered a risk enhancing factor by the [place] [employer]. This test has been modified from the coordinator hotels's instructions. Its performance characteristics were determined by [facility] in a manner consistent with CLIA requirements. This test has not been cleared or approved by the U.S. Food and Drug Administration. Test Performed by: [place] [address] [employer]: Sam Dukes Ph.D.; CLIA# [id number] Blood Venous blood / Unknown Venipuncture / Unknown 04/25/2025 10:03 AM EDT 04/25/2025 10:22 AM EDT us John Dominguez MD LAB BLOOD ORDERABLES Final Resu lt [address] [address], * Apolipoprotein B, S (04/25/2025 10:03 AM EDT) APOLIPOPROTEIN B 66 mg/dL 04/26/20 25 11:11 AM EDT [facility] Comment: REFERENCE VALUE Desirable: <90 Above Desirable: 90-99 Borderline high: 100-119 High: 120-139 Very high: > or = 140 Test Performed by: [address] [address] [employer] Warmer: Sam Dukes Ph.D.; CLIA# [id number] Blood Venous blood / Unknown Venipuncture / Unknown 04/25/2025 10:03 AM EDT 04/25/2025 10:22 AM EDT John Dominguez MD LAB BLOOD ORDERABLES Final Resu lt Performing Organization Address [facility]/ZIP Co de Phone Number [facility] [address] [place] [address], [place] * Apolipoprotein A1, S (04/25/2025 10:03 AM EDT) APOLIPOPROTEIN A1 189 >=140 mg/dL 04/26/2025 1:36 PM EDT [facility] Comment: Test Performed by: [facility] [address] [place] [address] [employer] Warmer: Sam Dukes Ph.D.; CLIA# [id number] Blood Venous blood / Unknown Venipuncture / Unknown 04/25/2025 10:03 AM EDT 04/25/2025 10:22 AM EDT John Dominguez MD LAB BLOOD ORDERABLES Final Resu lt Performing Organization Address City/[facility]/ZIP Co de Phone Number [facility] [address] [place] [address], [place] * Dihydrotestosterone, S (04/25/2025 10:03 AM EDT) DIHYDROTESTOSTERONE <50 <=128 pg/mL 04/28/2025 8:59 AM EDT [facility] Comment: ADDITIONAL INFORMATION This test was developed and its performance characteristics determined by [facility] in a manner consistent with CLIA requirements. This test has not been cleared or approved by the U.S. Food and Drug Administration. Test Performed by: [facility] - [facility] [address] [place] [address] [employer]mer: Sam Dukes Ph.D.; CLIA# [id number] Blood Venous blood / Unknown Venipuncture / Unknown 04/25/2025 10:03 AM EDT 04/25/2025 10:22 AM EDT us John Dominguez MD LAB BLOOD ORDERABLES Final Resu lt [facility] [address] [place] [address], [place] * [facility] Generic Order (04/25/2025 10:03 AM EDT) TEST RESULT SEE NOTE 04/28/2025 10:20 AM EDT [facility] Comment: Test name Result Flag Units RefIntvl Testosterone by Faculty Research Physician 13 ng/dL 5-32 REFERENCE INTERVAL: Testosterone by Faculty Research Physician Females Premenopausal 9-55 ng/dL Postmenopausal 5-32 ng/dL INTERPRETIVE INFORMATION: Testosterone by Faculty Research Physician Free or bioavailable testosterone measurements may provide supportive information. For individuals on testosterone-suppressing hormone therapies (e.g., antiandrogens or estrogens), refer to cisgender female reference intervals. For a complete set of all established reference intervals, refer to [employer]/Tests/Pub/[id number]. This test was developed and its performance characteristics determined by [facility]. It has not been cleared or approved by the [place] Food and Drug Administration. This test was performed in a CLIA certified laboratory and is intended for clinical purposes. Sex Hormone Binding Globulin 65 nmol/L 17-125 REFERENCE INTERVAL: Sex Hormone Binding Globulin Access complete set of age- and/or gender-specific reference intervals for this test in the [facility] Directory ([employer]). Testosterone, Free by Faculty Research Physician 1.4 pg/mL 0.6-3.8 INTERPRETIVE INFORMATION: Testosterone, Free by Faculty Research Physician Free testosterone concentration is calculated using total testosterone (measured by mass spectrometry) and the binding constant of testosterone and sex hormone-binding globulin (SHBG). For individuals on testosterone-suppressing hormone therapies (e.g., antiandrogens or estrogens), refer to cisgender female reference intervals. For a complete set of all established reference intervals, refer to [employer]/Tests/Pub/[id number]. This test was developed and its performance characteristics determined by [facility]. It has not been cleared or approved by the [place] Food and Drug Administration. This test was performed in a CLIA certified laboratory and is intended for clinical purposes. Performed By: [facility] [address] [place] [address] Machinery Engineer: Kwame Marion MD, PhD CLIA Number: [id number] Blood Venous blood / Unknown Venipuncture / Unknown 04/25/2025 10:03 AM EDT 04/25/2025 10:22 AM EDT John Dominguez MD LAB BLOOD ORDERABLES Final Resu lt Performing Organization Address City/[facility]/ZIP Co de Phone Number [facility] [address] [place] [address], [place] * Sex hormone binding globulin (04/25/2025 10:03 AM EDT) SEX HORMONE BINDING GLOBULIN 60.4 16.8 - 125.2 nmol/L 04/25/2025 1:01 PM EDT [facility] Comment: PT TYPE AGE RANGE MALES 20-50Y 13.3-89.5 mmol/L FEMALES 20-46Y 18.2-135.5 mmol/L FEMALES POSTMENO 47-91Y 16.8-125.2 mmol/L Blood Venous blood / Unknown Venipuncture / Unknown 04/25/2025 10:03 AM EDT 04/25/2025 10:22 AM EDT John Dominguez MD LAB BLOOD ORDERABLES Final Resu lt [facility] [address] [place] [address], [place] [phone] * (ABNORMAL) LDH (04/25/2025 10:03 AM EDT) LDH 371(H) 100 - 235 U/L 04/25/2025 1:03 PM EDT [facility] Blood Venous blood / Unknown Venipuncture / Unknown 04/25/2025 10:03 AM EDT 04/25/2025 10:22 AM EDT us John Dominguez MD LAB BLOOD ORDERABLES Final Resu lt Performing Organization Address City/[facility]/ZIP Co de Phone Number [facility] [address] [place] [address], [place] [phone] * GGT (04/25/2025 10:03 AM EDT) GGT 23 9 - 33 U/L 04/25/2025 1:03 PM EDT [facility] Blood Venous blood / Unknown Venipuncture / Unknown 04/25/2025 10:03 AM EDT 04/25/2025 10:22 AM EDT us John Dominguez MD LAB BLOOD ORDERABLES Final Resu lt Performing Organization Address [facility] [place]/[facility]/ZIP Co de Phone Number [facility] [address] [place] [address], [place] [phone] * Hepatitis C(HCV) Ab w/ Reflex to PCR (04/25/2025 10:03 AM EDT) ANTI HCV W/PCR REFLX Non-Reacti ve Non-Reacti ve 04/25/2025 2:05 PM EDT [facility] Comment: If recent infection suspected, recommend repeat testing (>2 months). Yersiz-gl-[id number] ratio is <1.0. Blood Venous blood / Unknown Venipuncture / Unknown 04/25/2025 10:03 AM EDT 04/25/2025 10:22 AM EDT us John Dominguez MD LAB BLOOD ORDERABLES Final Resu lt Performing Organization Address City/[facility]/ZIP Co de Phone Number [facility] [address] [place] [address], [place] [phone] * Iron and TIBC (04/25/2025 10:03 AM EDT) IRON 141 50 - 170 ug/dL 04/25/2025 1:09 PM EDT [facility] TRANSFERRIN 270 168 - 336 mg/dL 04/25/2025 1:09 PM EDT [facility] IRON BINDING 378 250 - 425 ug/dL 04/25/2025 1:09 PM EDT [facility] IRON SATURATION 37 15 - 50 % SATURATION 04/25/2025 1:09 PM EDT [facility] Blood Venous blood / Unknown Venipuncture / Unknown 04/25/2025 10:03 AM EDT 04/25/2025 10:22 AM EDT us John Dominguez MD LAB BLOOD ORDERABLES Final Resu lt [facility] [address] [place] [address], * Vitamin D 25 hydroxy (04/25/2025 10:03 AM EDT) VITAMIN D 25 HYD TOT 34.3 30.0 - 100.0 ng/mL 04/25/2025 1:13 PM EDT [facility] Blood Venous blood / Unknown Venipuncture / Unknown 04/25/2025 10:03 AM EDT 04/25/2025 10:22 AM EDT Narrative [facility] - 04/25/2025 1:13 PM EDT Vitamin D status 25 [place] Vitamin D Deficiency <20 ng/mL Insufficiency 20-29 ng/mL Sufficiency 30-100 ng/mL Toxicity >100 ng/mL NOTE: A pediatric reference range has not been established by the coordinator hotels of this kit. The [place] [employer] recommends a Vitamin D level of = or >20ng/mL in infants and children. us John Dominguez MD LAB BLOOD ORDERABLES Final Resu lt [facility] [address] [place] [address], [place] [phone] * (ABNORMAL) Prolactin (04/25/2025 10:03 AM EDT) PROLACTIN 1.0(L) 2.7 - 19.6 ng/mL 04/25/2025 1:02 PM EDT [facility] Blood Venous blood / Unknown Venipuncture / Unknown 04/25/2025 10:03 AM EDT 04/25/2025 10:22 AM EDT us John Dominguez MD LAB BLOOD ORDERABLES Final Resu lt Performing Organization Address City/[facility]/ZIP Co de Phone Number [facility] [address] [place] [address], [place] [phone] * Progesterone (04/25/2025 10:03 AM EDT) PROGESTERONE 0.9 ng/mL 04/25/2025 1:03 PM EDT [facility] Comment: FEMALES: 1st Tri: 4.7-50.7 ng/ml 2nd Tri: 19.4-45.3 ng/ml MENSTRUATING FEMALES: Follicular: 0.3-1.5 ng/ml Mid Luteal: 5.2-18.6 ng/ml Post Garrison: <0.1-0.8 ng/ml Blood Venous blood / Unknown Venipuncture / Unknown 04/25/2025 10:03 AM EDT 04/25/2025 10:22 AM EDT us John Dominguez MD LAB BLOOD ORDERABLES Final Resu lt [facility] [address] [place] [address], * Insulin (04/25/2025 10:03 AM EDT) Pathologist [facility] INSULIN 2.24 1.00 - 23.00 uIU/mL 04/25/2025 1:15 PM EDT [facility] Blood Venous blood / Unknown Venipuncture / Unknown 04/25/2025 10:03 AM EDT 04/25/2025 10:22 AM EDT Narrative [facility] - 04/25/2025 1:15 PM EDT Ref. range is for FASTING NON-DIABETIC POPULATION. John Dominguez MD LAB BLOOD ORDERABLES Final Resu lt Performing Organization Address [facility]/ZIP Co de Phone Number [facility] [address] [place] [address], * Insulin-Like GFB Protein 3 (04/25/2025 10:03 AM EDT) [facility] IGFBP-3 4.9 2.8 - 5.7 mcg/mL 04/26/2025 11:03 AM EDT [facility] Comment: Test Performed by: [facility] - [address] [address] [employer] Warmer: Sam Dukes Ph.D.; CLIA# [id number] Blood Venous blood / Unknown Venipuncture / Unknown 04/25/2025 10:03 AM EDT 04/25/2025 10:22 AM EDT John Dominguez MD LAB BLOOD ORDERABLES Final Resu lt [facility] [address] [place] [address], [place] * DHEA-sulfate (04/25/2025 10:03 AM EDT) Pathologist [facility] DHEA S 71 7 - 177 ug/dL 04/25/2025 12:58 PM EDT [facility] Blood Venous blood / Unknown Venipuncture / Unknown 04/25/2025 10:03 AM EDT 04/25/2025 10:22 AM EDT John Dominguez MD LAB BLOOD ORDERABLES Final Resu lt Performing Organization Address City/[facility]/ZIP Co de Phone Number [facility] [address] [place] [address], * Estradiol (04/25/2025 10:03 AM EDT) ESTRADIOL <15.0 pg/mL 04/25/2025 1:27 PM EDT [facility] Blood Venous blood / Unknown Venipuncture / Unknown 04/25/2025 10:03 AM EDT 04/25/2025 10:22 AM EDT Narrative [facility] - 04/25/2025 1:27 PM EDT NON- FEMALES Mid follicular: 25-115 pg/mL Ovulatory Peak: 32.1-517 pg/mL Mid Luteal: 36.5-246 pg/mL Post-Menopausal Females: <15.0-25.1 pg/mL (Not on hormone therapy) The Access Sensitive Estradiol assay results are not intended to be used to measure the effectiveness of exogeneous Estradiol supplementation, for example, when the patient is on hormone replacement therapy. The presence of estradiol drug analogues and their metabolites could have an impact on estradiol recovery when using this assay. us John Dominguez MD LAB BLOOD ORDERABLES Final Resu lt Performing Organization Address City/[facility]/ZIP Co de Phone Number [facility] [address] [place] [address], [place] [phone] * High sensitivity CRP (04/25/2025 10:03 AM EDT) HS CRP 0.020 0.000 - 0.744 mg/dL 04/25/2025 1:03 PM EDT [facility] Blood Venous blood / Unknown Venipuncture / Unknown 04/25/2025 10:03 AM EDT 04/25/2025 10:22 AM EDT Narrative [facility] - 04/25/2025 1:03 PM EDT Hs-CRP FOR CARDIAC RISK ASSESSMENT: By this method, 75% of hs-CRP values in healthy adults will be <0.37mg/dL. Prospective studies have shown that hs-CRP values in the upper quartile of an apparently healthy population are associated with an approximate 3-fold increase in risk of developing cardiovascular disease. This increase in risk is even more pronounced in the presence of an elevated Cholesterol/HDL-C ratio (>5.5). Hs-CRP is a nonspecific marker of inflammation and can be elevated in other conditions. us John Dominguez MD LAB BLOOD ORDERABLES Final Resu lt [facility] [address] [place] [address], [place] [phone] * Uric acid (04/25/2025 10:03 AM EDT) URIC ACID 5.4 2.6 - 7.2 mg/dL 04/25/2025 1:03 PM EDT [facility] Blood Venous blood / Unknown Venipuncture / Unknown 04/25/2025 10:03 AM EDT 04/25/2025 10:22 AM EDT us John Dominguez MD LAB BLOOD ORDERABLES Final Resu lt [facility] [address] [place] [address], * T3, free (04/25/2025 10:03 AM EDT) FREE T3 2.59 2.50 - 3.90 pg/mL 04/25/2025 12:57 PM EDT [facility] Blood Venous blood / Unknown Venipuncture / Unknown 04/25/2025 10:03 AM EDT 04/25/2025 10:22 AM EDT us John Dominguez MD LAB BLOOD ORDERABLES Final Resu lt [facility] [address] [place] [address] [address] [place] [address], * TSH (04/25/2025 10:03 AM EDT) Only the most recent of2 resultswithin the time period is included. TSH 1.63 0.49 - 4.67 uIU/mL 04/25/2025 12:54 PM EDT [facility] Blood Venous blood / Unknown Venipuncture / Unknown 04/25/2025 10:03 AM EDT 04/25/2025 10:22 AM EDT us John Dominguez MD LAB BLOOD ORDERABLES Final Resu lt [facility] [address] [place] [address], * T4, free (04/25/2025 10:03 AM EDT) Only the most recent of2 resultswithin the time period is included. FREE T4 1.43 0.61 - 1.60 ng/dL 04/25/2025 12:56 PM EDT [facility] Blood Venous blood / Unknown Venipuncture / Unknown 04/25/2025 10:03 AM EDT 04/25/2025 10:22 AM EDT us John Dominguez MD LAB BLOOD ORDERABLES Final Resu lt Performing Organization Address City/[facility]/ZIP Co de Phone Number [facility] [address] [place] [address], [place] [phone] * Phosphorus (04/25/2025 10:03 AM EDT) PHOSPHORUS 3.7 2.4 - 4.9 mg/dL 04/25/2025 1:03 PM EDT [facility] Blood Venous blood / Unknown Venipuncture / Unknown 04/25/2025 10:03 AM EDT 04/25/2025 10:22 AM EDT us John Dominguez MD LAB BLOOD ORDERABLES Final Resu lt Performing Organization Address [facility] Co de Phone Number [facility] [address] [place] [address], [place] [phone] * Magnesium (04/25/2025 10:03 AM EDT) MAGNESIUM 2.2 1.8 - 2.6 mg/dL 04/25/2025 1:03 PM EDT [facility] Blood Venous blood / Unknown Venipuncture / Unknown 04/25/2025 10:03 AM EDT 04/25/2025 10:22 AM EDT us John Dominguez MD LAB BLOOD ORDERABLES Final Resu lt Performing Organization Address City/[facility]/ZIP Co de Phone Number [facility] [address] [place] [address], [place] [phone] * (ABNORMAL) Homocysteine total (04/25/2025 10:03 AM EDT) HOMOCYSTEINE 36.45(H) 3.36 - 20.44 umol/L 04/25/2025 12:47 PM EDT [facility] Blood Venous blood / Unknown Venipuncture / Unknown 04/25/2025 10:03 AM EDT 04/25/2025 10:22 AM EDT us John Dominguez MD LAB BLOOD ORDERABLES Final Resu lt Performing Organization Address City/[facility]/ZIP Co de Phone Number [facility] [address] [place] [address], * (ABNORMAL) Hemoglobin A1c (04/25/2025 10:03 AM EDT) HEMOGLOBIN A1C 6.0(H) 4.4 - 5.6 % 04/25/2025 1:40 PM EDT [facility] Comment: ADA Guidelines Result HgbA1c Normal : less than 5.7 % Prediabetes : 5.7 % to 6.4 % Diabetes : > 6.4 % Use with caution in patients with abnormal hemoglobin variants as the half-life of red blood cells and in vivo glycation rates are affected. EST. AVERAGE GLUCOSE 126 mg/dL 04/25/2025 1:40 PM EDT [facility] Blood Venous blood / Unknown Venipuncture / Unknown 04/25/2025 10:03 AM EDT 04/25/2025 10:22 AM EDT us John Dominguez MD LAB BLOOD ORDERABLES Final Resu lt Performing Organization Address City/[facility]/ZIP Co de Phone Number [facility] [address] [place] [address], * Luteinizing hormone (04/25/2025 10:03 AM EDT) LUTEINIZING HORMONE 0.9 mIU/mL 04/25/2025 1:28 PM EDT [facility] Blood Venous blood / Unknown Venipuncture / Unknown 04/25/2025 10:03 AM EDT 04/25/2025 10:22 AM EDT Narrative [facility] - 04/25/2025 1:28 PM EDT NORMAL FEMALE Follicular 2.1-10.9 mIU/mL Mid Cycle 19.2-103 mIU/mL Luteal 1.2-12.9 mIU/mL Post Garrison 10.9-58.6 mIU/mL John Dominguez MD LAB BLOOD ORDERABLES Final Resu lt [facility] [address] [place] [address], * Follicle stimulating hormone (04/25/2025 10:03 AM EDT) FOLLICLE STIM HORMONE 24.9 mIU/mL 04/25/2025 1:27 PM EDT [facility] Blood Venous blood / Unknown Venipuncture / Unknown 04/25/2025 10:03 AM EDT 04/25/2025 10:22 AM EDT Narrative [facility] - 04/25/2025 1:27 PM EDT NORMAL FEMALE: Luteal 1.8-5.1 mIU/mL Follicular 3.8-8.8 mIU/mL Mid Cycle 4.5-22.5 mIU/mL Post [place] 16.7-113.6 mIU/mL John Dominguez MD LAB BLOOD ORDERABLES Final Resu lt [facility] [address] [place] [address], * Ferritin (04/25/2025 10:03 AM EDT) FERRITIN 90 11 - 307 ng/mL 04/25/2025 1:04 PM EDT [facility] Blood Venous blood / Unknown Venipuncture / Unknown 04/25/2025 10:03 AM EDT 04/25/2025 10:22 AM EDT us John Dominguez MD LAB BLOOD ORDERABLES Final Resu lt [facility] [address] [place] [address], [place] [phone] * Vitamin B12 (04/25/2025 10:03 AM EDT) VITAMIN B12 274 180 - 914 pg/mL 04/25/2025 1:09 PM EDT [facility] Blood Venous blood / Unknown Venipuncture / Unknown 04/25/2025 10:03 AM EDT 04/25/2025 10:22 AM EDT us John Dominguez MD LAB BLOOD ORDERABLES Final Resu lt Performing Organization Address [facility]/ZIP Co de Phone Number [facility] [address] [place] [address], [place] [phone] * Cortisol (04/25/2025 10:03 AM EDT) CORTISOL, TOTAL 21.2 ug/dL 04/25/2025 12:49 PM EDT [facility] Blood Venous blood / Unknown Venipuncture / Unknown 04/25/2025 10:03 AM EDT 04/25/2025 10:22 AM EDT Narrative [facility] - 04/25/2025 12:49 PM EDT Due to the diurnal variation of cortisol levels in normal subjects, all cortisol measurments should be referenced to the time of day of sample collection. AM Cortisol Age>=6 6.7-22.4 ug/dL PM Cortisol Age>=6 <10 ug/dL us John Dominguez MD LAB BLOOD ORDERABLES Final Resu lt [facility] [address] [place] [address], * Bilirubin, direct (04/25/2025 10:03 AM EDT) BILIRUBIN,DIRE CT 0.3 <=0.4 mg/dL 04/25/2025 1:03 PM EDT [facility] Blood Venous blood / Unknown Venipuncture / Unknown 04/25/2025 10:03 AM EDT 04/25/2025 10:22 AM EDT us John Dominguez MD LAB BLOOD ORDERABLES Final Resu lt [facility] [address] [place] [address], * Lipid profile (04/25/2025 10:03 AM EDT) CHOLESTEROL 171 150 - 200 mg/dL 04/25/2025 1:09 PM EDT [facility] TRIGLYCERIDE 46 27 - 150 mg/dL 04/25/2025 1:09 PM EDT [facility] HDL CHOLESTEROL 82 >39 mg/dL 1:09 PM EDT [facility] Comment: HDL <40 mg/dL - High Risk HDL > or = 40mg/dL- Desirable HDL >60 mg/dL - Negative Risk LDL (CALC) 80 <130 mg/dL 04/25/2025 1:09 PM EDT [facility] Comment: LDL <100 mg/dL - Desirable LDL >160 mg/dL - High Risk CHOLESTEROL:HDL 2.1 1.0 - 5.0 1:09 PM EDT [facility] VERY LOW LIPOPROTEIN 9 0 - 30 mg/dL 04/25/2025 1:09 PM EDT [facility] Blood Venous blood / Unknown Venipuncture / Unknown 04/25/2025 10:03 AM EDT 04/25/2025 10:22 AM EDT us John Dominguez MD LAB BLOOD ORDERABLES Final Resu lt [facility] [address] [place] [address], [place] [phone] * (ABNORMAL) Comprehensive metabolic panel (04/25/2025 10:03 AM EDT) Only the most recent of2 resultswithin the time period is included. SODIUM 140 134 - 146 mmol/L 04/25/2025 1:09 PM EDT [facility] POTASSIUM 4.2 3.5 - 5.0 mmol/L 04/25/2025 1:09 PM EDT [facility] CHLORIDE 97(L) 98 - 109 mmol/L 04/25/2025 1:09 PM EDT [facility] CARBON DIOXIDE 31 22 - 32 mmol/L 04/25/2025 1:09 PM EDT [facility] ANION GAP 12 5 - 15 mmol/L 04/25/2025 1:09 PM EDT [facility] BLOOD UREA NITROGEN 36(H) 5 - 27 mg/dL 04/25/2025 1:09 PM EDT [facility] CREATININE 1.24(H) 0.40 - 1.00 mg/dL 04/25/2025 1:09 PM EDT [facility] Comment:METHOD TRACEABLE TO IDMS STANDARD GLUCOSE 98 65 - 99 mg/dL 04/25/2025 1:09 PM EDT [facility] CALCIUM 10.1 8.5 - 10.5 mg/dL 04/25/2025 1:09 PM EDT [facility] TOTAL PROTEIN 7.8 6.0 - 8.0 g/dL 04/25/2025 1:09 PM EDT [facility] LABORATORY ALBUMIN 4.7 3.2 - 5.3 g/dL 04/25/2025 1:09 PM EDT [facility] ALKALINE PHOSPHATASE 76 39 - 130 U/L 04/25/2025 1:09 PM EDT [facility] AST 27 <=41 U/L 04/25/2025 1:09 PM EDT [facility] ALT 6 <=31 U/L 04/25/2025 1:09 PM EDT [facility] BILIRUBIN,TOTAL 1.8(H) 0.3 - 1.2 mg/dL 04/25/2025 1:09 PM EDT [facility] EGFR Non-Race Dependent 46(L) >=60 ml/min/1.7 3sq.m 04/25/2025 1:09 PM EDT [facility] Comment: Reported eGFR is based on the CKD-EPI 2020 equation that does not use a race coefficient. Blood Venous blood / Unknown Venipuncture / Unknown 04/25/2025 10:03 AM EDT 04/25/2025 10:22 AM EDT us John Dominguez MD LAB BLOOD ORDERABLES Final Resu lt [facility] [address] [place] [address], * (ABNORMAL) POCT Nursing Urine Macroscopic UA (04/17/2025 9:12 PM EDT) POC Urine Specific [place] 1.015 1.010, 1.015, 1.020, 1.025 04/17/2025 9:09 PM EDT [facility] POC Urine Leukocyte Esterase Small(A) Negative 04/17/2025 9:09 PM EDT [facility] POC Urine Nitrite Negative Negative 04/17/2025 9:09 PM EDT [facility] POC Urine pH 7.5 5.0, 6.0, 6.5, 7.0, 7.5, 8.0, 8.5, 5.5 04/17/2025 9:09 PM T [facility] POC Urine Protein Trace(A) Negative 04/17/2025 9:09 PM EDT [facility] POC Urine Glucose Negative Negative 04/17/2025 9:09 PM EDT [facility] POC Urine Ketones Negative Negative 04/17/2025 9:09 PM EDT [facility] POC Urine Urobilinogen 0.2 E.U./dL 04/17/2025 9:09 PM EDT [facility] POC Urine Bilirubin Negative Negative 04/17/2025 9:09 PM EDT [facility] POC Urine Blood/HGB Negative Negative 04/17/2025 9:09 PM EDT [facility] Urine 04/17/2025 9:12 PM EDT 04/17/2025 9:09 PM EDT us Ama Ireland DO POINT OF CARE TEST ORDERABLE S Final Result Performing Organization Address [facility]/ZIP Co de Phone Number [facility] [address] [place] [address], [place] * Extra Urine (04/17/2025 9:05 PM EDT) Extra Tube Auto Resulted 04/17/2025 11:02 PM EDT [facility] Urine Urine specimen collection, clean catch / Unknown 04/17/2025 9:05 PM EDT 04/17/2025 9:52 PM EDT us Ama Ireland DO URINE ORDERABLES Final Resul t Performing Organization Address [facility] Co de Phone Number [facility] [address] [place] [address], [place] [phone] * CT abdomen and pelvis without contrast (04/17/2025 7:52 PM EDT) Anatomical Region Laterality Modality Body, Abdomen, Body Covera N/A Compu dana Tomography 04/17/2025 8:30 PM EDT Narrative 04/17/2025 8:33 PM EDT EXAM: ABDOMEN AND PELVIS CT WITHOUT CONTRAST CLINICAL INFORMATION: Loss of appetite. TECHNIQUE: Routine unenhanced CT of the abdomen and pelvis was performed utilizing 5 mm axial reconstructions. Coronal and sagittal reformatted images as were obtained and reviewed. Automated exposure control was utilized. COMPARISON: None. FINDINGS: The limited visualized lung bases demonstrate incomplete visualization of a 0.7 cm middle lobe nodule. There are bilateral breast implants. There is a punctate 0.1 cm nonobstructing stone in the right kidney. There are no convincing ureteral stones or evidence for collecting system dilatation in either kidney. The liver, spleen, pancreas, and adrenals are unremarkable within the limitations of an unenhanced CT. There is no convincing evidence for bowel obstruction. There is diffuse fecal loading in the colon; clinical correlation for constipation is recommended. There is no convincing evidence of pneumatosis or free air. There is no free fluid. There are calcifications throughout a normal diameter abdominal aorta and iliac arteries. IMPRESSION: 1. Solitary punctate 0.1 cm nonobstructing right renal stone. 2. Fecal loading is noted within the colon; clinical correlation for symptoms attributable to constipation is recommended. 3. Incomplete visualization of a 0.7 cm middle lobe nodule; per [employer] recommendations, a follow-up CT scan of the chest in 3 [address] is recommended[address] scans at this facility use dose modulation, iterative reconstruction, and/or weight based dosing when appropriate to reduce radiation dose to as low as reasonably achievable. Finalized by Ady Ramirez MD on 04/17/2025 8:33 PM Procedure Note Ady Ramirez MD - 04/17/2025 EXAM: ABDOMEN AND PELVIS CT WITHOUT CONTRAST CLINICAL INFORMATION: Loss of appetite. TECHNIQUE: Routine unenhanced CT of the abdomen and pelvis was performedutilizing 5 mm axial reconstructions. Coronal and sagittal reformattedimages as were obtained and reviewed. Automated exposure control wasutilized. COMPARISON: None. FINDINGS: The limited visualized lung bases demonstrate incomplete visualization ofa 0.7 cm middle lobe nodule. There are bilateral breast implants. There is a punctate 0.1 cm nonobstructing stone in the right kidney. Thereare no convincing ureteral stones or evidence for collecting systemdilatation in either kidney. The liver, spleen, pancreas, and adrenals areunremarkable within the limitations of an unenhanced CT. There is noconvincing evidence for bowel obstruction. There is diffuse fecal loading in thecolon; clinical correlation for constipation is recommended. There is noconvincing evidence of pneumatosis or free air. There is no free fluid.There are calcifications throughout a normal diameter abdominal aorta andiliac arteries. IMPRESSION: 1. Solitary punctate 0.1 cm nonobstructing right renal stone. 2. Fecal loading is noted within the colon; clinical correlation forsymptoms attributable to constipation is recommended. 3. Incomplete visualization of a 0.7 cm middle lobe nodule; per [facility] recommendations, a follow-up CT scan of the chest in 3 [address] All [address] scans at this facility use dose modulation, iterativereconstruction, and/or weight based dosing when appropriate to reduceradiation dose to as low as reasonably achievable. Finalized by Ady Ramirez MD on 04/17/2025 8:33 PM Luciana Lyons DO [facility] CT ORDERABLES Final Result * CT chest without contrast (04/17/2025 7:52 PM EDT) Anatomical Region Laterality Modality Body, Lung, Chest, Body Covera N/A C omputed Tomography 04/17/2025 8:29 PM EDT Narrative 04/17/2025 8:[address] CHEST WO CONT: 04/17/2025 7:41 PM CLINICAL INDICATION: Decreased breath sounds on the right side, abnormal lung exam.. Technique: Automatic radiation exposure lowering techniques were utilized. A nonenhanced CT of the chest and sagittal and coronal reformats obtained. All CT scans at this facility use dose modulation, iterative reconstruction, and/or weight based dosing when appropriate to reduce radiation dose to as low as reasonably achievable. . Computer aided detection for pulmonary nodules was performed utilizing [employer] software. FINDINGS: Comparison: CT dated 01/04/2019. Nodule in the right middle lobe on axial slice #48 measures 6 mm is unchanged. 3 mm nodule in the right lower lobe on axial slice #58 is unchanged No airspace disease. No effusion. The heart is normal in size. No coronary artery calcifications. No pleural or pericardial effusion. No enlarged lymph nodes in the axilla or mediastinum. The abdomen is dictated separately. IMPRESSION: 1. No acute abnormality seen. Finalized by Ed Peres MD on 04/17/2025 8:31 PM Procedure Note Ed Peres MD - 04/17/2025 CT CHEST WO CONT: 04/17/2025 7:41 PM CLINICAL INDICATION: Decreased breath sounds on the right side, abnormallung exam.. Technique: Automatic radiation exposure lowering techniques were utilized.A nonenhanced CT of the chest and sagittal and coronal reformatsobtained. All CT scans at this facility use dose modulation, iterativereconstruction, and/or weight based dosing when appropriate to reduceradiation dose to as low as reasonably achievable. . Computer aided detection for pulmonarynodules was performed utilizing [employer] software. FINDINGS: Comparison: CT dated 01/04/2019. Nodule in the right middle lobeon axial slice #48 measures 6 mm is unchanged. 3 mm nodule in the rightlower lobe on axial slice #58 is unchanged No airspace disease. Noeffusion. The heart is normal in size. No coronary artery calcifications.No pleural or pericardial effusion. No enlarged lymph nodes in the axilla ormediastinum. The abdomen is dictated separately. IMPRESSION: 1. No acute abnormality seen. Finalized by Ed Peres MD on 04/17/2025 8:31 PM Luciana Lyons DO [facility] CT ORDERABLES Final Result * CT brain without contrast (04/17/2025 7:51 PM EDT) Anatomical Region Laterality Modality Neuro, Head, Head and Neck, Neuro Covera N/A Computed Tomography 04/17/2025 8:28 PM EDT Narrative 04/17/2025 8:30 PM EDT EXAM: CT BRAIN WO CONT CLINICAL INFORMATION: AMS. TECHNIQUE: CT head was performed without contrast utilizing 2.5 mm axial reconstruction with images reviewed in bone and brain windows. Automated exposure control was utilized. COMPARISON: CT dated 01/17/2022 FINDINGS: There is no evidence for an acute intra or extra-axial hemorrhage. There are scattered areas of low attenuation within the white matter, nonspecific though most commonly attributable to the sequela of chronic ischemic small vessel disease. The reyes-white matter differentiation is preserved. There is no intracranial mass effect. The ventricles are proportional to the overall brain volume without evidence for outflow obstruction. There is no shift of the midline structures and the basal cisterns are widely patent. There are no depressed or widely calvarial fractures. The paranasal sinuses are well aerated. The mastoids are clear. IMPRESSION: 1. No acute intracranial abnormalities. 2. White matter changes, most commonly attributable to the sequela of chronic ischemic small vessel disease. 3. Please note, hyperacute ischemia can remain occult on CT. If there is persistent concern for acute ischemia, further evaluation with a dedicated MRI is recommended as clinically indicated. All CT scans at this facility use dose modulation, iterative reconstruction, and/or weight based dosing when appropriate to reduce radiation dose to as low as reasonably achievable. Finalized by Ady Ramirez MD on 04/17/2025 8:30 PM Procedure Note Ady Ramirez MD - 04/17/2025 EXAM: CT BRAIN WO CONT CLINICAL INFORMATION: AMS. TECHNIQUE: CT head was performed without contrast utilizing 2.5 mm axialreconstruction with images reviewed in bone and brain windows. Automatedexposure control was utilized. COMPARISON: CT dated 01/17/2022 FINDINGS: There is no evidence for an acute intra or extra-axial hemorrhage. Thereare scattered areas of low attenuation within the white matter,nonspecific though most commonly attributable to the sequela of chronicischemic small vessel disease. The reyes- white matter differentiation ispreserved. There is no intracranial mass effect. The ventricles are proportional to theoverall brain volume without evidence for outflow obstruction. There is noshift of the midline structures and the basal cisterns are widely patent.There are no depressed or widely calvarial fractures. Theparanasal sinuses are well aerated. The mastoids are clear. IMPRESSION: 1. No acute intracranial abnormalities. 2. White matter changes, most commonly attributable to the sequela ofchronic ischemic small vessel disease. 3. Please note, hyperacute ischemia can remain occult on CT. If there ispersistent concern for acute ischemia, further evaluation with a dedicatedMRI is recommended as clinically indicated. All CT scans at this facility use dose modulation, iterativereconstruction, and/or weight based dosing when appropriate to reduceradiation dose to as low as reasonably achievable. Finalized by Ady Ramirez MD on 04/17/2025 8:30 PM Luciana Lyons DO IMG CT ORDERABLES Final Result * Troponin I, High Sensitivity 1 Hour (04/17/2025 7:17 PM EDT) TROPONIN I, HIGH SENSITIVITY 10 <16 ng/L 04/17/2025 8:02 PM EDT [facility] Blood Venous blood / Unknown Venipuncture / Unknown 04/17/2025 7:17 PM EDT 04/17/2025 7:19 PM EDT Ama Ireland DO LAB BLOOD ORDERABLES Final R esult [facility] [address] [place] [address], [place] * Lactate w/ Reflex (04/17/2025 7:17 PM EDT) LACTATE W/REFLEX 0.7 0.4 - 2.0 mmol/L 04/17/2025 7:58 PM EDT [facility] Blood Venous blood / Unknown Venipuncture / Unknown 04/17/2025 7:17 PM EDT 04/17/2025 7:29 PM EDT Narrative [facility] - 04/17/2025 7:58 PM EDT Result did not trigger repeat Lactate, re-order if needed. Luciana Lyons DO LAB BLOOD ORDERABLES Final Resul t [facility] [address] [place] [address], [place] [phone] * Troponin I, High Sensitivity 0 Hour (04/17/2025 5:24 PM EDT) TROPONIN I, HIGH SENSITIVITY 10 <16 ng/L 04/17/2025 6:26 PM EDT [facility] Blood Venous blood / Unknown Venipuncture / Unknown 04/17/2025 5:24 PM EDT 04/17/2025 6:01 PM EDT Ama Ireland DO LAB BLOOD ORDERABLES Final R esult [facility] [address] [place] [address], [place] * APTT (04/17/2025 5:24 PM EDT) APTT 29 26 - 37 sec 04/17/2025 6:02 PM EDT [facility] Blood Venous blood / Unknown Venipuncture / Unknown 04/17/2025 5:24 PM EDT 04/17/2025 5:42 PM EDT Ama Ireland DO LAB BLOOD ORDERABLES Final R esult [facility] [address] [place] [address], * Protime & INR (04/17/2025 5:24 PM EDT) PROTIME 11.2 9.8 - 13.2 sec 04/17/2025 6:02 PM EDT [facility] INR 1.0 0.9 - 1.2 04/17/2025 6:02 PM EDT [facility] Blood Venous blood / Unknown Venipuncture / Unknown 04/17/2025 5:24 PM EDT 04/17/2025 5:42 PM EDT Ama Ireland DO LAB BLOOD ORDERABLES Final R esult [facility] [address] [place] [address], * (ABNORMAL) Bedside Glucose *Place/Obtain serum glucose if >500 per glucometer. (04/17/2025 5:22 PM EDT) Bedside Glucose (POC) 114(H) 65 - 99 mg/dL 04/17/2025 5:24 PM EDT [facility] Blood specimen (specimen) 04/17/2025 5:22 PM EDT 04/17/2025 5:24 PM EDT us POINT OF CARE TEST ORDERABLES Fi nal Result [facility] [address] [place] [address], [place] * ECG 12 lead (04/17/2025 5:17 PM EDT) 04/17/2025 5:17 PM EDT Narrative [facility] - 04/20/2025 12:14 PM EDT us Ama Ireland DO ECG ORDERABLES Final Result Performing Organization Address [facility] Co de Phone Number [facility] * Mammography diagnostic bilateral with CAD (11/04/2024 9:26 AM EST) Anatomical Region Laterality Modality Breast Bilateral Mammography 11/04/2024 9:28 AM EST Narrative 11/04/2024 9:52 AM EST BEENA DIAZ 1950 [id number], [id number] EXAM: MAMM DIAGNOSTIC BILATERAL W CAD, US BREAST RT LIMITED, 11/04/2024 8:53 AM CLINICAL INDICATIONS: Mass of upper inner quadrant of right breast, Patient presents for evaluation of a palpable abnormality within the upper inner right breast. COMPARISON: Mammogram 11/18/2022, 09/12/2021 TECHNIQUE: Bilateral digital tomosynthesis MLO and CC views of the breasts were obtained, with creation of synthetic 2D views. Computer aided detection was utilized. FINDINGS: The breasts are extremely dense, which lowers the sensitivity of mammography. A radiopaque marker is placed over the area of palpable concern of the upper inner right breast visualized only on the cc view. There is no underlying mammographic abnormality. Targeted ultrasound will be performed at this location. Bilateral subpectoral silicone implants are present. Small volume of tissue present on implant displaced views. There are no suspicious masses, calcifications, or areas of architectural distortion. Right Breast Ultrasound, Limited TECHNIQUE: Multiple real-time reyes-scale images of the right breast in the 2 o'clock axis were performed. Color Doppler was utilized to assess vascular flow. FINDINGS: There is no focal mass, architectural distortion or abnormal vascularity visualized. There are several smooth contours of the implant in this area. No abnormal soft tissue mass. COMBINED IMPRESSION: No mammographic or sonographic evidence of malignancy. There are some smooth ripples/contours of the implant within this area. This is likely within normal limits. If there is concern for implant rupture, MRI is the preferred method of silicone implant evaluation. BI-RADS: BI-RADS 2 - Benign RECOMMENDATION: Routine screening mammogram in 1 year. RISK ASSESSMENT: TC Lifetime risk: 5%. The patient's reported personal and family medical history was used calculate their Tyrer-Cuzick lifetime risk of malignancy. Scores less than 20% are not considered high risk per ACR guidelines and patient should continue with the above recommendation. Patient was given the results before leaving the department. Finalized by Venice Chow MD on 11/04/2024 9:52 AM 2 d MAMM 1 YR FDA Accredited Performing Facility: [facility] - Mammography [address], [facility] [address] Procedure Note Venice Chow MD - 11/04/2024 BEENA MISTRY JOE 1950 [id number], [id number] EXAM: MAMM DIAGNOSTIC BILATERAL W CAD, US BREAST RT LIMITED, 48:53 AM CLINICAL INDICATIONS: Mass of upper inner quadrant of right breast,Patient presents for evaluation of a palpable abnormality within the upperinner right breast. COMPARISON: Mammogram 11/18/2022, 09/12/2021 TECHNIQUE: Bilateral digital tomosynthesis MLO and CC views of the breastswere obtained, with creation of synthetic 2D views. Computer aideddetection was utilized. FINDINGS: The breasts are extremely dense, which lowers the sensitivity ofmammography. A radiopaque marker is placed over the area of palpable concern of theupper inner right breast visualized only on the cc view. There is nounderlying mammographic abnormality. Targeted ultrasound will beperformed at this location. Bilateral subpectoral silicone implants are present. Small volume oftissue present on implant displaced views. There are no suspicious masses, calcifications, or areas of architecturaldistortion. Right Breast Ultrasound, Limited TECHNIQUE: Multiple real-time reyes-scale images of the right breast in the2 o'clock axis were performed. Color Doppler was utilized to assessvascular flow. FINDINGS: There is no focal mass, architectural distortion or abnormal vascularityvisualized. There are several smooth contours of the implant in thisarea. No abnormal soft tissue mass. COMBINED IMPRESSION: No mammographic or sonographic evidence of malignancy. There are somesmooth ripples/contours of the implant within this area. This is likelywithin normal limits. If there is concern for implant rupture, MRI is thepreferred method of silicone implant evaluation. BI-RADS: BI-RADS 2 - Benign RECOMMENDATION: Routine screening mammogram in 1 year. RISK ASSESSMENT: TC Lifetime risk: 5%. The patient's reported personal and family medical history was usedcalculate their Tyrer-Cuzick lifetime risk of malignancy. Scores less than20% are not considered high risk per ACR guidelines and patient shouldcontinue with the above recommendation. Patient was given the results before leaving the department. Finalized by Venice Chow MD on 11/04/2024 9:52 AM 2 d MAMM 1 YR FDA Accredited Performing Facility: [facility] - Mammography [address] [id number] [place] Jesenia Zuñiga Danish LEAD MAN 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 IMG MAMMOGRAPHY ORDERAB LES Final Result * HM COLONOSCOPY (10/29/2015) 10/29/2015 Narrative MANUALLY TRANSCRIBED LAB RESULTS - 10/29/2015 7:16 AM EST This information has been abstracted by Monie Dougherty from [employer] on 08/25/2016. us Scanning Provider External HEALTH MAINTENANCE Ed ited Result - Final MANUALLY TRANSCRIBED LAB RESULTS from Last 3 Months or Most Recently Relevant to Health Maintenance Insurance [facility] Advance Directives * Full Code (Latest Code Status on File) Date Activated Date Inactivated Comments 01/17/2022 2:54 PM 01/22/2022 5:04 PM Care Teams Software Quality Assurance Specialist Relationship Specialty Start Date End Date Jesenia Peng APRN-MOLDING MANAGER [address] [place] [address], [address] [place] [address] PCP - General 03/19/15
--- OUTSIDE RECORDS SUMMARY | 2025-07-12 12:15 | XMS_ITS | Encounter Summary ---
Author Organization [facility] Sys tem Address [facility] [id number] [address] [place] [address] Care Team Providers Care Municipal Maintenance Worker Name Role Phone Jesenia Peng CENTRIFUGAL SEPARATOR-SURGICAL AIDES TEACHER Primary Care Provider Encounter Details Date Type Department Care Team (Late st Contact Info) Description 12/14/2024 Orders Only [facility] Medicine [facility] Rehabilitation [address] [place] [phone] Ofelia Pierce V, CENTRIFUGAL SEPARATOR-SURGICAL AIDES TEACHER [address] [place] [address] Social History Tobacco Use Types Packs/Day Years [...] Visit [facility], A Department of [address] [place] [address] Cliff Greenfield MD [address] [place] [address], [address] [place] [address] 08/01/2025 2:00 PM EDT Office Visit [facility] Neurology, A Department of [address] 101, [address], 103 [place] [address] Trice Stinson MD [address] [place] [address] 101, 102, 103 [place] [address] 08/07/2025 11:00 AM EDT Office Visit [facility] Rehabilitation [address] [address] Isidro Woodall, DO [address] [address] 08/07/2025 11:00 AM EDT Appointment [facility] Radiology [address] [place] [address] 08/21/2025 2:30 PM EDT Appointment [facility] Radiology [address] [place] [address] 08/22/2025 2:30 PM EDT Office Visit [facility] Rehabilitation [address] [facility] 170 [place] [address] Isidro Woodall, DO [address] [facility] 170 [place] [address] 08/23/2025 1:30 PM EDT Office Visit [facility] [address] [facility] [address] [place] [address] Jesenia Peng, CENTRIFUGAL SEPARATOR-SURGICAL AIDES TEACHER [address] [facility], [address] [place] [address] 09/26/2025 1:30 PM EST Office Visit [facility], A Department of [address] [place] [address] Neli Clemente MD MPH [address] [place] [phone] 10/13/2025 11:45 AM EST Office Visit [facility] Cardiology [address] [place] [address] [address] [place] [address] Duong Johnson, DO [address] [place] [address], [address] [place] [address] 10/13/2025 3:15 PM EST [facility], A Department of [address] [place] [phone] Ines Uribe, PA-C [address] [place] [address], [address] [place] [address] 11/14/2025 12:20 PM EST Office Visit [facility] Physical Medicine and Rehabilitation [address] [facility] 170 [place] [phone] Ofelia Pierce V, CENTRIFUGAL SEPARATOR-SURGICAL AIDES TEACHER [address] [facility] [address] [place] [address] 11/21/2025 12:30 PM EST Appointment [facility] [place] [facility] [place] [id number] [place] [address] documented as of this encounter Goals Goal Patient Goal Type Associated Problems Recent Progress Patient-Stated? Author Discharge with home care General Yes Carmen Yañez, RN Note: Evaluation of progress towards goal: [facility] documented as of this encounter Procedures Procedure Name Priority Date/Time Associated Diagnosis Comments DRUG SCREEN SALIVA NON-[facility] Routine 12/09/2024 10:47 AM EST documented in this encounter Results * Drug Screen Saliva [facility] (12/09/2024 10:47 AM EST) us CIARRA Hernandez LAB ORDERABLES Edite d Result - Final MANUALLY TRANSCRIBED RESULTS documented in this encounter [...] documented as of this encounter Care Teams Municipal Maintenance Worker Relationship Specialty Start Date End Date Jesenia Peng APRN-SURGICAL AIDES TEACHER [address] [place] [address], [address] [place] [address] PCP - General 03/19/15 documented as of this encounter
--- OUTSIDE RECORDS SUMMARY | 2025-07-12 12:15 | XMS_ITS | Clinical Summary ---
Author Organization [facility] Address [address] [place] [address] Care Team Providers Care Microwave Supervisor Name Role Phone Unavailable Primary Care Provider Unavailabl e Allergies No known active allergies Medications amantadine (SYMMETREL) 100 mg tablet Take 1 tablet (100 mg total) by mouth 2 (two) times daily. Takes 2 tablets in the morning and 1 tablet at noon 4 Active baclofen 5 mg Tab Take 5 each by mouth every 8 (eight) hours as needed for Other. 3 Active carbidopa-levod opa (SINEMET CR) 25-100 mg CR per tablet Take 1 tablet by mouth 4 (four) times daily. 2 tablets morning, 1 tablet noon, 2 tablets at 5 pm, 1 tablet at night 3 Active clonazePAM (KlonoPIN) 0.5 MG tablet Take 3 tablets (1.5 mg total) by mouth nightly as needed for Anxiety. One tablet in the afternoon and 3-4 tabs at bedtime 3 Active eszopiclone (LUNESTA) 2 MG Take 1 tablet (2 mg total) by mouth at bedtime. 3 Active losartan (COZAAR) 25 MG tablet Take 1 tablet (25 mg total) by mouth every morning. 4 Active pantoprazole (PROTONIX) 40 MG tablet Take 1 tablet (40 mg total) by mouth daily. 4 Active pramipexole (MIRAPEX) 0.25 MG tablet Take 1 tablet (0.25 mg total) by mouth 2 (two) times daily. 4 Active rasagiline (AZILECT) 1 mg Tab Take 1 tablet (1 mg total) by mouth daily. 3 Active triamcinolone (KENALOG) 0.1 % cream Apply 1 treatment topically daily as needed (itching). Active aspirin 81 MG EC tablet Take 1 tablet (81 mg total) by mouth daily. 30 tablet 4 Active Additional Information Patient not taking.Reported on 05/11/2025 atorvastatin (LIPITOR) 40 MG tablet Take 1 tablet (40 mg total) by mouth daily. 30 tablet 4 Active Active Problems Problem Noted Date Diagnosed Date Stroke-like symptoms 06/16/2024 Encounters Date Type Department Care Team Description 05/11/2025 1:30 PM EDT [facility] [address] [place] [phone] Jesenia Hou, CD REACTOR OPERATOR HEAD Laceration of left lower leg, initial encounter (Primary Dx); Laceration of right forearm, initial encounter 05/11/2025 Travel from Last 3 Months Immunizations Immunization Administration Dates Next Due Tdap (ADACEL/BOOSTRIX) 05/11/2025 Social History Tobacco Use Types Packs/Day Years Used Date Smoking Tobacco: Never Passive Smoke Exposure: Never Smokeless Tobacco: Never Tobacco Cessation:Counseling Given: Not Answered Alcohol Use Standard Drinks/Week Comments Yes 1 (1 standard drink = 0.6 oz pur e alcohol) 1 daily AUDIT-C Answer Date Recorded Q1: How often do you have a drink containing alcohol? 4 or more times a week 06/16/2024 Q2: How many drinks containi ng alcohol do you have on a typical day when you are drinking? 1 or 2 Q3: How often do you have si x or more drinks on one occasion? Never 06/16/2024 Exercise Vital Sign Answer Date Recorde d On average, how many days pe r week do you engage in moderate to strenuous exercise (like a brisk walk)? 0 days 06/17/2024 On average, how many minutes do you engage in exercise at this level? 0 min 06/17/2024 Social Connections Answer Date Recorded If for any reason you need h elp with activities of daily living such as bathing, preparing meals, shopping, managing finances, etc., do you get the help that you need? I don't need any help 06/17/2024 How often do you feel lonely or isolated from those around you? Rarely 06/17/2024 Financial Resource Strain Answer Date R ecorded How hard is it for you to pa y for the very basics like food, housing, medical care, and heating? Would you say it is: Not hard at all 06/17/2024 In the past year, have you o r any family members you live with been unable to get medicine or any health care (medical, dental, mental health, vision) when it was really needed? No 06/17/2024 Stress Answer Date Recorded Stress means a situation in which a person feels tense, restless, nervous, or anxious, or is unable to sleep at night because his or her mind is troubled all the time. Do you feel this kind of stress these days? A little bit 06/17/2024 Food Insecurity Answer Date Recorded Within the past 12 months, t he food you bought just didn't last and you didn't have money to get more. Never true 06/16/2024 Within the past 12 months, y ou worried that your food would run out before you got money to buy more. Never true 06/16/2024 Transportation Needs Answer Date Record ed In the past 12 months, has l ack of reliable transportation kept you from medical appointments, meetings, work or from getting things needed for daily living? No 06/17/2024 Housing Stability Answer Date Recorded What is your living situation today? I have a st rony place to live 06/16/[address] you li ve. Do you have problems with any of the following: Pests such as bugs, ants, or mice, Mold, Lead paint or pipes, Lack of heat, Oven or stove not working, Smoke detectors missing or not working, Water leaks? None of the above 06/16/2024 Current Housing Concerns Not on file 024 Health Literacy Answer Date Recorded Do you ever need help reading medical materials? No 06/17/2024 Childcare Access Answer Date Recorded Do problems getting childcar e make it difficult for you to work or study? No 06/17/2024 Utility Difficulties Answer Date Record ed In the past 12 months, has t he electric, gas, oil, or water company threatened to shut off services in your home? No 06/16/2024 Comments No Sex and Gender Information Value Date Recorded Sex Assigned at Not on file Legal Sex Female 3:48 PM EDT Gender Identity Not on file Sexual Orientation Not on file Last Filed Vital Signs Vital Sign Reading Time Taken Comments Blood Pressure 150/80 05/11/2025 3:09 PM EDT Pulse 71 05/11/2025 2:24 PM EDT Temperature 36.7 C (98.1 F) 06/17/2024 11:12 AM EDT Respiratory Rate 16 05/11/2025 2:24 PM EDT Oxygen Saturation 99% 05/11/2025 2:24 PM EDT Inhaled Oxygen Concentration - - Weight 39.5 kg (87 lb) 05/11/2025 2:24 PM EDT Height 161.3 cm (5' 3.5 ) 06/16/2024 10:27 PM ED T Body Mass Index 15.17 06/16/2024 10:27 PM EDT Plan of Treatment Health Maintenance Due Date Last Done Comments [facility] Medicare Annual Wellness Visit (MAWV) 1951 CT Colonography 1950 Cologuard 1950 Colonoscopy 1950 Colorectal Cancer Screening 1950 Flexible Sigmoidoscopy 1950 Occult Blood Fecal Immuno Test (FIT) Screen 1951 [facility] Fall Risk Assessment 1951 [facility] Depression Screen 1963 RSV for patients and patients 60yrs or older (1 - Risk 60-74 years 1-dose series) 2011 Influenza Vaccine(s) 9604-8370 (#1) 08/09/2025 11/14/2022, 10/24/2021, 08/27/2020, Additional history exists Mammogram 11/04/2026 11/04/2024, 01/13/2024 Pneumococcal Age 65 and older Completed 03/15/2020, 12/23/2018, 09/15/2017 Dexa Scan Completed 05/03/2025, 04/10, 02/09/2025, Additional history exists Hepatitis B Vaccines Aged Out No long er eligible based on patient's age to complete this topic Hib Vaccines Aged Out No longer eligi ble based on patient's age to complete this topic Meningococcal (MCV4) Vaccines Aged Out No longer eligible based on patient's age to complete this topic Insurance MEDICARE [facility] 03 Advance Directives * Full Code (Latest Code Status on File) Date Activated Date Inactivated Comments 06/16/2024 10:40 PM 06/17/2024 6:01 PM Code Status o rder may be entered by two registered nurses who receive telephone order from attending physician. Code Status order will be invalid after 24 hours unless signed by physician.
--- OUTSIDE RECORDS SUMMARY | 2025-07-12 12:15 | XMS_ITS | Encounter Summary ---
Author Organization [facility] [employer] [facility] tem Address [facility] [id number] [address] [place] [address] Care Team Providers Care Junior Legal Secretary Name Role Phone Jesenia Peng PLATFORM SOFTWARE ENGINEER-CANAL STRUCTURE OPERATOR Primary Care Provider Encounter Details Date Type Department Care Team (Late Contact Info) Description 07/24/2022 Orders Only [facility] Physical Medicine and Rehabilitation [address] [place] [phone] Adam Noland, IRENE Social History Tobacco Use Types Packs/Day Years [...] have Coronavirus / COVID-19? No / Unsure 07/23/2022 10:55 AM EDT documented as of this encounter Plan of Treatment Upcoming Encounters Date Type Department Care Team (Late Contact Info) Description 07/20/2025 10:45 AM EDT Office Visit [facility], A Department of [facility] [address] [place] [address] [address] [place] [address] Cliff Greenfield MD [address] [facility], [address] [place] [address] 08/01/2025 2:00 PM EDT Office Visit [facility] Neurology, A Department of [address] 101, [address], [address] [place] [phone] Trice Stinson MD [address] [place] [address] 101, 102, 103 [place] [address] 08/07/2025 11:00 AM EDT Office Visit [facility] Medicine and Rehabilitation [address] [facility] [address] [place] [address] Isidro Woodall, DO [address] [facility] 170 [place] [address] 08/07/2025 11:00 AM EDT Appointment [facility] Radiology [address] [place] [address] 08/21/2025 2:30 PM EDT Appointment [facility] Radiology [address] [place] [address] 08/22/2025 2:30 PM EDT Office Visit [facility] [address] [facility] [address] [place] [address] Isidro Woodall, DO [address] [facility] [address] [place] [address] 08/23/2025 1:30 PM EDT Office Visit [facility] [address] [facility] [address] [place] [address] Jesenia Peng, PLATFORM SOFTWARE ENGINEER-CANAL STRUCTURE OPERATOR [address] [facility], [address] [place] [address] 09/26/2025 1:30 PM EST [facility], A Department of [address] [place] [address] Neli Clemente MD MPH [address] [place] [address] [address] [place] [address] 10/13/2025 11:45 AM EST Office Visit [facility] Cardiology [address] [place] [address] [address] [place] [phone] Duong Johnson, DO [address] [place] [address], [address] [place] [address] 10/13/2025 3:15 PM EST Office Visit [facility], A Department of [address] [place] [address] Ines Uribe, ALEXC [address] [place] [address], [address] [place] [address] 11/14/2025 12:20 PM EST Office Visit [facility] Medicine and Rehabilitation [address] [facility] [address] [place] [phone] Ofelia Pierce V, PLATFORM SOFTWARE ENGINEER-CANAL STRUCTURE OPERATOR [address] [facility] [address] [place] [address] 11/21/2025 12:30 PM EST Appointment [facility] [facility] [address] [place] [phone] documented as of this encounter Goals Goal Patient Goal Type Associated Problems Recent Progress Patient-Stated? Author Discharge with home care General Yes Cramen Yañez, RN Note: Evaluation of progress towards [...] documented as of this encounter Care Teams Junior Legal Secretary Relationship Specialty Start Date End Date Jesenia Peng APRN-CANAL STRUCTURE OPERATOR [address] [place] [address], [address] [place] [address] PCP - General 03/19/15 documented as of this encounter
--- OUTSIDE RECORDS SUMMARY | 2025-07-12 12:15 | XMS_ITS | Encounter Summary ---
Author Organization [facility] Address [facility] [id number] [address] [place] [address] Care Team Providers Care Steel Post Installer Name Role Phone Jesenia Peng STRINGER MACHINE [facility] Primary Care Provider Reason for Visit * Reason Comments Med Refill Encounter Details Date Type Department Care Team (Late st Contact Info) Description 08/08/2022 Refill [facility] Neurology [address] [place] [phone] Jaja Hayes APRN-[address], [facility] 101, 102, [address] [place], [place] [phone] Parkinson's disease ([facility] Social History Tobacco Use Types Packs/Day Years [...] Description 07/20/2025 10:45 AM EDT Office Visit [facility] Care, A Department of [address] [place] [address] [place] [address] [place] [address], [address] [place] [address] 08/01/2025 2:00 PM EDT Office Visit [facility] Neurology, A Department of [address] 101, [address], [address] [place] [address] Trice Stinson MD [address] [place] [address] 101, 102, 103 [place] [address] 08/07/2025 11:00 AM EDT Office Visit [facility] Physical Medicine and Rehabilitation [address] [address] Isidro Woodall, DO [address] [address] 08/07/2025 11:00 AM EDT Appointment [facility] Radiology [address] [place] [address] 08/21/2025 2:30 PM EDT Appointment [facility] Radiology [address] [place] [address] 08/22/2025 2:30 PM EDT Office Visit [facility] Rehabilitation [address] [facility] 170 [place] [address] Isidro Woodall, DO [address] [facility] 170 [place] [address] 08/23/2025 1:30 PM EDT Office Visit [facility] [address] [facility] [address] [place] [address] Jesenia Peng, STRINGER MACHINE TENDER-MEDICAL INSTRUMENT CABLE FABRICATOR [address] [facility], [address] [place] [address] 09/26/2025 1:30 PM EST Office Visit [facility], A Department of [address] [place] [address] Neli Clemente MD MPH [address] [place] [phone] 10/13/2025 11:45 AM EST Office Visit [facility] Cardiology [address] [place] [address] 202 [place] [address] Duong Johnson, DO [address] [place] [address], [address] [place] [address] 10/13/2025 3:15 PM EST Office Visit [facility], A Department of [address] [place] [address] Ines Uribe, PA-C [address] [place] [address], [address] [place] [address] 11/14/2025 12:20 PM EST Office Visit [facility] Rehabilitation [address] [facility] [address] [place] [phone] Ofelia Pierce V, STRINGER MACHINE TENDER-MEDICAL INSTRUMENT CABLE FABRICATOR [address] [facility] [address] [place] [address] 11/21/2025 12:30 PM EST Appointment [facility] [place] [facility] [address] [place] [address] documented as of this encounter Goals Goal Patient Goal Type Associated Problems Recent Progress Patient-Stated? Author Discharge with home care General Yes Carmen Yañez, RN Note: Evaluation of progress towards goal: [facility] documented as of this encounter Visit Diagnoses Diagnosis Parkinson's disease ([facility]) documented in this encounter Additional Health Concerns Infection Onset Date Last Indicated Resolved Time COVID-19 Rule-Out 06/27/2025 06/27/2025 06/27/2025 2:03 PM EDT Assessment Noted Time PHQ-9 Depression Total Score: 9 07/23/20 22 11:00 AM EDT A Body Mass Index follow-up plan has been documented for the patient 07/24/2022 9:57 AM EDT documented as of this encounter Care Teams Steel Post Installer Relationship Specialty Start Date End Date Jesenia Peng APRN-JONEL [address] [place] [address], [address] [place] [address] PCP - General 03/19/15 documented as of this encounter
--- OUTSIDE RECORDS SUMMARY | 2025-07-12 12:15 | XMS_ITS | Encounter Summary ---
Author Organization [facility] Address [id number] [address] [place] [address] Care Team Providers Care Beef Cattle Farmer Name Role Phone Jesenia Peng ROLLED GOLD PLATER-COURT MANAGER Primary Care Provider Encounter Details Date Type Department Care Team (Late st Contact Info) Description 08/29/2024 Orders Only [facility] Rheumatology [address] [facility] [address] [place] [address] Ref Prov, [place] [address] Social History Tobacco Use Types Packs/Day Years [...] Description 07/20/2025 10:45 AM EDT Office Visit [facility], A Department of [facility] [address] [place] [address] [address] [place] [address] Cliff Greenfield MD [address] [facility], [address] [place] [address] 08/01/2025 2:00 PM EDT Office Visit [facility] Neurology, A Department of [address], [address], [address] [place] [phone] Trice Stinson MD [address] [place] [address] 101, 102, 103 [place] [address] 08/07/2025 11:00 AM EDT Office Visit [facility] Physical Medicine and Rehabilitation [address] [facility] [address] [place] [address] Isidro Woodall DO [address] [facility] [address] [place] [address] 08/07/2025 11:00 AM EDT Appointment [facility] Radiology [address] [place] [address] 08/21/2025 2:30 PM EDT Appointment [facility] Radiology [address] [place] [address] 08/22/2025 2:30 PM EDT Office Visit [facility] Rehabilitation [address] [facility] [address] [place] [address] Isidro Woodall DO [address] [facility] [address] [place] [address] 08/23/2025 1:30 PM EDT Office Visit [facility] [address] [facility] [address] [place] [phone] Jesenia Peng, ROLLED GOLD PLATER-COURT MANAGER [address] [facility], [address] [place] [address] 09/26/2025 1:30 PM EST Office Visit [facility], A Department of [address] [place] [address] Neli Clemente MD MPH [address] [place] [phone] 10/13/2025 11:45 AM EST Office Visit [facility] Cardiology [address] [place] [phone] Duong Johnson, [address] [place] [address], [address] [place] [address] 10/13/2025 3:15 PM EST [facility], A Department of [address] [place] [address] Ines Uribe PA-C [address] [place] [address], [address] [place] [address] 11/14/2025 12:20 PM EST Office Visit [facility] [address] [facility] [address] [place] [phone] Ofelia Pierce V, ROLLED GOLD PLATER-COURT MANAGER [address] [facility] [place] [address] 11/21/2025 12:30 PM EST Appointment [facility] [place] [facility] [address] [place] [phone] documented as of this encounter Goals Goal Patient Goal Type Associated Problems Recent Progress Patient-Stated? Author Discharge with home care General Yes Carmen Yañez, RN Note: Evaluation of progress towards goal: [facility] documented as of this encounter Procedures Procedure Name Priority Date/Time Associated Diagnosis Comments EXTERNAL LAB ORDERS / RESULTS Routine 08/29/2024 8:34 AM EDT documented in this encounter Results * External Lab Orders / Results (08/29/2024 8:34 AM EDT) us Not In System Ref Prov LAB [...] documented as of this encounter Care Teams Beef Cattle Farmer Relationship Specialty Start Date End Date Jesenia Peng APRN-COURT MANAGER [address] [place] [address], [address] [place] [address] PCP - General 03/19/15 documented as of this encounter
--- OUTSIDE RECORDS SUMMARY | 2025-07-12 12:15 | XMS_ITS | Encounter Summary ---
Author Organization [facility] Address [id number] [address] [place] [address] Care Team Providers Care Accident Examiner Name Role Phone Jesenia Peng STAFF READINESS OFFICER-MEDICAL IMAGING TECHNICIAN Primary Care Provider Reason for Visit * Reason Comments Med Refill Encounter Details Date Type Department Care Team (Late st Contact Info) Description 12/17/2024 Refill [facility] Rheumatology [address] [place] [phone] Neli Clemente MD MPH [address] [place] [phone] Inflammatory polyarthritis ([facility]) Social History Tobacco Use Types Packs/Day Years [...] 07/20/2025 10:45 AM EDT Office Visit [facility], A Department of [address] [place] [address] Cliff Greenfield MD [address] [place] [address], [address] [place] [address] 08/01/2025 2:00 PM EDT Office Visit [facility] Neurology, A Department of [address], [address], [address] [place] [address] Trice Stinson MD [address] [place] [address] 101, 102, 103 [place] [address] 08/07/2025 11:00 AM EDT Office Visit [facility] [address] [facility] [address] [place] [address] Isidro Woodall, DO [address] [facility] [address] [place] [address] 08/07/2025 11:00 AM EDT Appointment [facility] Radiology [address] [facility] [place] [address] 08/21/2025 2:30 PM EDT Appointment [facility] [address] [facility] [place] [address] 08/22/2025 2:30 PM EDT Office Visit [facility] [address] [place] [address] Isidro Woodall, DO [address] [place] [address] 08/23/2025 1:30 PM EDT Office Visit [facility] [address] [facility] [address] [place] [phone] Jesenia Peng, STAFF READINESS OFFICER-MEDICAL IMAGING TECHNICIAN [address] [facility], [address] [place] [address] 09/26/2025 1:30 PM EST Office Visit [facility], A Department of [address] [phone] Neli Clemente MD MPH [address] [place] [phone] 10/13/2025 11:45 AM EST Office Visit [facility] Cardiology [address] [place] [phone] Duong Johnson, [address] [place] [address], [address] [place] [address] 10/13/2025 3:15 PM EST Office Visit [facility], A Department of [address] [place] [address] Ines Uribe, PA-C [address] [place] [address], [address] [place] [address] 11/14/2025 12:20 PM EST Office Visit [facility] [address] [facility] [address] [place] [phone] Ofelia Pierce V, STAFF READINESS OFFICER-MEDICAL IMAGING TECHNICIAN [address] [facility] [place] [address] 11/21/2025 12:30 PM EST Appointment [facility] - Mammography [address] [place] [address] documented as of this encounter Goals Goal Patient Goal Type Associated Problems Recent Progress Patient-Stated? Author Discharge with home care General Yes Carmen Yañez, RN Note: Evaluation of progress towards goal: [facility] home [facility] documented as of this encounter Visit Diagnoses Diagnosis Inflammatory polyarthritis ([facility]) Unspecified inflammatory polyarthropathy documented in this encounter Additional Health Concerns Infection Onset Date Last Indicated Resolved Time COVID-19 Rule-Out 06/27/2025 06/27/2025 06/27/2025 2:03 PM EDT Assessment Noted Time PHQ-9 Depression Total Score: 0 08/09/20 24 7:00 AM EDT A Body Mass Index follow-up plan has been documented for the patient 06/29/2024 1:23 PM EDT documented as of this encounter Care Teams Accident Examiner Relationship Specialty Start Date End Date Jesenia Peng, RADHA-MEDICAL IMAGING TECHNICIAN [address] [place] [address], [address] [place] [address] PCP - General 03/19/15 documented as of this encounter
--- OUTSIDE RECORDS SUMMARY | 2025-07-12 12:15 | XMS_ITS | Encounter Summary ---
Author Organization [facility] Sys tem Address [id number] [address] [place] [address] Care Team Providers Care Display Coordinator Name Role Phone Jesenia Peng VACUUM COOKER OPERATOR-ANDROID SOFTWARE ENGINEER Primary Care Provider Encounter Details Date Type Department Care Team (Late st Contact Info) Description 12/11/2022 Orders Only [facility] Gynecology Oncology [address] [place] [phone] Sofie Burrows PARaphaelC [address] [place] [address] Social History Tobacco Use Types [...] AM EDT Office Visit [facility], A Department of [facility] [address] [place] [address] [address] [facility] [place] [address] Cliff Greenfield MD [address] [facility], [address] [place] [address] 08/01/2025 2:00 PM EDT Office Visit [facility] Neurology, A Department of [address] 101, [address], [address] [place] [phone] Trice Stinson MD [address] [place] [address] 101, 102, [address] [place] [address] 08/07/2025 11:00 AM EDT Office Visit [facility] [address] [facility] 170 [place] [address] Isidro Woodall DO [address] [facility] [address] [place] [address] 08/07/2025 11:00 AM EDT Appointment [facility] Radiology [address] [place] [address] 08/21/2025 2:30 PM EDT Appointment [facility] [address] [place] [address] 08/22/2025 2:30 PM EDT Office Visit [facility] [address] [facility] [address] [place] [address] Isidro Woodall, DO [address] [facility] [address] [place] [address] 08/23/2025 1:30 PM EDT Office Visit [facility] [address] [facility] 170 [place] [phone] Jesenia Peng, VACUUM COOKER OPERATOR-ANDROID SOFTWARE ENGINEER [address] [facility], [address] [place] [address] 09/26/2025 1:30 PM EST Office Visit [facility], A Department of [address] [place] [phone] [place] MPH [address] [place] [address] [address] [place] [address] 10/13/2025 11:45 AM EST Office Visit [facility] Cardiology [address] [place] [address] 202 [place] [phone] Duong Johnson, [address] [place] [address], [address] [place] [address] 10/13/2025 3:15 PM EST Office Visit [facility], A Department of [address] [place] [phone] Ines Uribe, PA-C [address] [place] [address], [address] [place] [address] 11/14/2025 12:20 PM EST Office Visit [facility] [address] [facility] [address] [place] [phone] Ofelia Pierce V, VACUUM COOKER OPERATOR-ANDROID SOFTWARE ENGINEER [address] [facility] [address] [place] [address] 11/21/2025 12:30 PM EST Appointment [facility] [place] - Mammography [address] [place] [phone] documented as of this encounter Goals Goal [...] documented as of this encounter Care Teams Display Coordinator Relationship Specialty Start Date End Date Jesenia Peng APRN-ANDROID SOFTWARE ENGINEER [address] [place] [address], [address] [place] [address] PCP - General 03/19/15 documented as of this encounter
--- OUTSIDE RECORDS SUMMARY | 2025-07-12 12:15 | XMS_ITS | Encounter Summary ---
Author Organization [facility] Address [facility] [id number] [address] [place] [address] Care Team Providers Care Metal Technician Name Role Phone Jesenia Peng WATCHER LOOKOUT TOWER-IT APPLICATION SUPPORT ANALYST Primary Care Provider Encounter Details Date Type Department Care Team (Late st Contact Info) Description 08/19/2024 Orders Only [facility] [address] [facility] [address] [place] [address] Jesenia Peng WATCHER LOOKOUT TOWER-IT APPLICATION SUPPORT ANALYST [address] [facility], [address] [place], [place] [phone] Mixed hyperlipidemia (Primary Dx) Social History Tobacco Use Types [...] Office Visit [facility], A Department of [address] [place] [address] Cliff Greenfield MD [address] [place] [address], [address] [place] [address] 08/01/2025 2:00 PM EDT Office Visit [facility], A Department of [address] 101, 102, [address] [place] [phone] Trice Stinson MD [address] [place] [address] 101, 102, 103 [place] [address] 08/07/2025 11:00 AM EDT Office Visit [facility] [address] [address] Isidro Woodall, DO [address] [address] 08/07/2025 11:00 AM EDT Appointment [facility] Radiology [address] [place] [address] 08/21/2025 2:30 PM EDT Appointment [facility] [address] [place] [address] 08/22/2025 2:30 PM EDT Office Visit [facility] [address] [facility] [address] [place] [address] Isidro Woodall, DO [address] [facility] [address] [place] [address] 08/23/2025 1:30 PM EDT Office Visit [facility] [address] [facility] [address] [place] [address] Jesenia Peng, WATCHER LOOKOUT TOWER-IT APPLICATION SUPPORT ANALYST [address] [facility], [address] [place] [address] 09/26/2025 1:30 PM EST Office Visit [facility], A Department of [address] [place] [phone] Neli Clemente MD MPH [address] [place] [phone] 10/13/2025 11:45 AM EST Office Visit [facility] Cardiology [address] [place] [address] 202 [place] [phone] Duong Johnson, DO [address] [place] [address], [address] [place] [address] 10/13/2025 3:15 PM EST Office Visit [facility], A Department of [address] [place] [address] Ines Uribe, SOPHY-C [address] [place] [address], [address] [place] [address] 11/14/2025 12:20 PM EST Office Visit [facility] [address] [facility] [address] [place] [address] Ofelia Pierce V, WATCHER LOOKOUT TOWER-IT APPLICATION SUPPORT ANALYST [address] [facility] [address] [place] [address] 11/21/2025 12:30 PM EST Appointment [facility] [place] - Mammography [address] [place] [address] documented as of this encounter Goals Goal Patient Goal Type Associated Problems Recent Progress Patient-Stated? Author Discharge with home care General Yes Carmen Yañez, RN Note: Evaluation of progress towards goal: [facility] home with [facility] documented as of this encounter Visit Diagnoses Diagnosis Mixed hyperlipidemia- Primary documented in this encounter Additional Health Concerns Infection Onset Date Last Indicated Resolved Time COVID-19 Rule-Out 06/27/2025 06/27/2025 06/27/2025 2:03 PM EDT Assessment Noted Time PHQ-9 Depression Total Score: 0 08/09/20 24 7:00 AM EDT A Body Mass Index follow-up plan has been documented for the patient 06/29/2024 1:23 PM EDT documented as of this encounter Care Teams Metal Technician Relationship Specialty Start Date End Date Jesenia Peng, WATCHER LOOKOUT TOWER-IT APPLICATION SUPPORT ANALYST [address] [place] [address], [address] [place] [address] PCP - General 03/19/15 documented as of this encounter
--- OUTSIDE RECORDS SUMMARY | 2025-07-12 12:15 | XMS_ITS | Encounter Summary ---
Author Organization [employer] Address [id number] [address] [place] [address] Care Team Providers Care Liquid Chlorine Operator Name Role Phone Jesenia Peng Primary Care Provider Reason for Referral * Consultation (Routine) - Closed Specialty Diagnoses / Procedures Referred By Madeline t Referred To Contact Oncology / Gynecologic Oncology Diagnoses Abnormal pelvic ultrasound Jesenia Peng APRN-CNP [address] [facility], [address] [place] [address] Phone: tel: fax: Bossman Rivas MD [address] [facility], [address] [place] [address] Phone: tel: fax: Referral ID Status Reason Start Date Expiration Date V isits Requested Visits Authorized [id number] Closed Specialty Services Required 12/04/2022 12/04/2023 1 1 Encounter Details Date Type Department Care Team (Late st Contact Info) Description 12/04/2022 Orders Only [facility] [address] [place] [address] Jesenia Peng APRN-CNP [address] [facility], [address] [place], [place] [phone] Abnormal pelvic ultrasound (Primary Dx) Social History Tobacco Use Types [...] 10:45 AM EDT Office Visit [facility], A Department of [address] [phone] Cliff Greenfield MD [address] [place] [address], [address] [address] 08/01/2025 2:00 PM EDT Office Visit [facility] Neurology, A Department of [address] 101, 102, 103 [place] [phone] Trice Stinson MD [address] [place] [address] 101, 102, 103 [place] [address] 08/07/2025 11:00 AM EDT Office Visit [facility] Physical Medicine and Rehabilitation [address] [facility] [address] [place] [phone] Isidro Woodall DO [address] [facility] [address] [place] [address] 08/07/2025 11:00 AM EDT Appointment [facility] Rad[facility] [address] [place] [address] 08/21/2025 2:30 PM EDT Appointment [facility] Radiology [address] [place] [address] 08/22/2025 2:30 PM EDT Office Visit [facility] [address] [address] Isidro Woodall, DO [address] [address] 08/23/2025 1:30 PM EDT Office Visit [facility] [address] [address] Jesenia Peng, LADLER-AWS CONSULTANT [address] [facility], [address] [place] [address] 09/26/2025 1:30 PM EST [facility] Department of [address] [phone] Neli Clemente MD MPH [address] [place] [address] 10/13/2025 11:45 AM EST Office Visit [facility] Cardiology [address] [place] [phone] Duong Johnson, DO [address] [place] [address], [address] [address] 10/13/2025 3:15 PM EST Office Visit [facility], A Department of [address] [place] [address] Ines Uribe PA-C [address] [place] [address], [address] [place] [address] 11/14/2025 12:20 PM EST Office Visit [facility] Rehabilitation [address] [facility] [address] [place] [phone] Ofelia Pierce V, LADLER-AWS CONSULTANT [address] [facility] [address] [place] [address] 11/21/2025 12:30 PM EST Appointment [facility] [place] - Mammography [address] [place] [phone] Scheduled Referrals Name Type Priority Associated Diagnoses Order Schedule [facility] Gynecologic Oncology. Rob Reyes, and [place], [place] Outpatient Referral Routine Abnormal pelvic ultrasound 1 Occurrences starting 12/04/2022 until 12/04/2023 documented as of this encounter Goals Goal Patient Goal Type Associated Problems Recent Progress Patient-Stated? Author Discharge with home care General Yes Carmen Yañez, RN Note: Evaluation of progress towards goal: [facility] home with [facility] documented as of this encounter Visit Diagnoses Diagnosis Abnormal pelvic ultrasound- Primary documented in this encounter Additional Health Concerns Infection Onset Date Last Indicated Resolved Time COVID-19 Rule-Out 06/27/2025 06/27/2025 06/27/2025 2:03 PM EDT Assessment Noted Time PHQ-9 Depression Total Score: 0 12/01/19 23 7:00 AM EST A Body Mass Index follow-up plan has been documented for the patient 07/24/2022 9:57 AM EDT documented as of this encounter Care Teams Liquid Chlorine Operator Relationship Specialty Start Date End Date Jesenia Peng, LADLER-AWS CONSULTANT [address] [facility], [address] [place] [address] PCP - General 5/11/15 documented as of this encounter
--- OUTSIDE RECORDS SUMMARY | 2025-07-12 12:15 | XMS_ITS | Encounter Summary ---
Author Organization [facility] Sys tem Address [id number] [address] [place] [address] Care Team Providers Care Flight Technician Name Role Phone Jesenia Peng [facility] Primary Care Provider Encounter Details Date Type Department Care Team (Late st Contact Info) Description 11/20/2020 Telephone [facility] [place] [phone] Jaja Hayes STEAM FITTER-[address], [address], [address] [place] [address] Social History Tobacco Use Types Packs/Day Years Used Date Smoking Tobacco: Former Smokeless Tobacco: Never Alcohol Use Standard Drinks/Week Comments Yes 0 (1 standard drink = 0.6 oz pur e alcohol) PHQ-2 Answer Date Recorded Total Score 4 08/27/2020 Childcare Answer Date Recorded Childcare Unknown 04/11/2019 [...] have Coronavirus / COVID-19? No / Unsure 11/20/2020 3:24 PM EST documented as of this encounter Miscellaneous Notes * Telephone Encounter - Jaja Hayes, STEAM FITTER-TECHNICIAN BIOLOGICAL HEALTH - 11/20/2020 2:16 PM EST Please note email received by pt and response sent to pt regarding tendon and muscle tears. ? To: Ty Branham Please see the thread, she???s probably seeing Emy or Michelle on Thursday?? Begin forwarded message: ? Reply Forward ? You forwarded this message on Thu11/16/2020 5:02 PM DIANA Madera <[email or web address]> Thu11/16/2020 1:07 PM ? To: Jaja Hayes ? Thank you so much!?? I will be in the office seeing??a new RUBBER GOODS INSPECTOR on??thursday at 3:30.?? Sure wish i was seeing you instead! ? Thanks again, Beena ? On Nov 16, 2020 at 3:43 PM Jaja Hayes <[email or web address]> wrote: Rupinder Velasquez I am delayed in returning this email.? Dr. Branham is off until next week and I did some research to see if this has been reported.?? I did find one case, but interestingly the person had only been on rasagiline for 3 days then starting having problems with muscle ache and then had a tendon rupture. ? I know you have been on this for quite some time and we do have you taking 2 mg per day which is more than is typically recommended.? I would like you to decrease the dose to ?? tablet daily.?? Hopefully this will reduce the likely proctor of any additional tendon or muscle tears but not sacrifice the benefit it gives you for your PD.?? If you are not comfortable with this and want to stop the medication completely you can also do that.?? There is usually no reason to wean off the medication because it stays in your system for about [address] Branham will be back on Thursday so I can confirm with him whether or not he wants you to just reduce the dose or go off it.? Hope this helps and for the interim and I will be in touch next week once I get more feedback from Dr. Branham ? Esla ?? From: Beena Madera <[email or web address]> Sent: Thursday, November 12, 2020 8:03 PM To: Jaja Hayes <[email or web address]> Subject: [EXTERNAL] Question about my meds ?? Hi Elsa, ?? I do not have Dr. Branham's email so could you forward this on to him to review? ?? I am having a problem that I suspect medication may be the cause.?? After doing some searching on the internet,?? azilect has come up as a possibility.?? I did a complete tear of my right hamstring.?? About 4 months??later I tore my left hamstring and last week I tore my right bicep with what they refer to as a lloyd tear.?? This many tears would appear to??be??more than random??occurrences. ? I met with Dr. Adkins today and he feels that there is a possibility that medication could be contributing to the tearing. We are hopeful you could review the meds (azilect, in particular) and see if azilect or any other of my medications have been associated with this side effect. ?Thank you for any information you are able to contribute that may help.?? Best regards. Beena Madera [phone] (home) [phone] (cell) documented in this encounter Plan of Treatment Upcoming Encounters Date Type Department Care Team (Late st Contact Info) Description 07/20/2025 10:45 AM EDT Office Visit [facility], A Department of [address] [place] [address] [place] [address] [place] [address], [address] [place] [address] 08/01/2025 2:00 PM EDT Office Visit [facility], A Department of [address], [address], [address] [place] [address] Trice Stinson MD [address] [place] [address] 101, 102, [address] [place] [address] 08/07/2025 11:00 AM EDT Office Visit [facility] [address] [facility] 170 [place] [address] Isidro Woodall, DO [address] [facility] 170 [place] [address] 08/07/2025 11:00 AM EDT Appointment [facility] Radiology [address] [place] [address] 08/21/2025 2:30 PM EDT Appointment [facility] [address] [place] [address] 08/22/2025 2:30 PM EDT Office Visit [facility] [address] [facility] [address] [place] [address] Isidro Woodall, DO [address] [address] 08/23/2025 1:30 PM EDT Office Visit [facility] [address] [facility] 170 [place] [address] Jesenia Peng, STEAM FITTER-TECHNICIAN BIOLOGICAL HEALTH [address] [facility], [address] [place] [address] 09/26/2025 1:30 PM EST Office Visit [facility], A Department of [address] [address] Neli Clemente MD MPH [address] [place] [address], [place] [address] 10/13/2025 11:45 AM EST Office Visit [facility] Cardiology [address] [place] [address] [address] [place] [address] Duong Johnson DO [address] [place] [address], [address] [place] [address] 10/13/2025 3:15 PM EST Office Visit [facility], A Department of [address] [place] [address] Ines Uribe PA-C [address] [place], [place] [address] [place] [address] 11/14/2025 12:20 PM EST Office Visit [facility] [address] [facility] 170 [place] [phone] Ofelia Pierce V, STEAM FITTER-TECHNICIAN BIOLOGICAL HEALTH [address] [facility]170 [place] [address] 11/21/2025 12:30 PM EST Appointment [facility] [place] [facility] [address] [place] [phone] documented as of this encounter Visit Diagnoses Not on filedocumented in this encounter Additional Health Concerns Infection Onset Date Last Indicated Resolved Time COVID-19 Rule-Out 06/27/2025 06/27/2025 06/27/2025 2:03 PM EDT Assessment Noted Time PHQ-9 Depression Total Score: 4 08/27/20 20 1:00 PM EDT A Body Mass Index follow-up plan has been documented for the patient 08/09/2020 7:22 AM EDT documented as of this encounter Care Teams Flight Technician Relationship Specialty Start Date End Date Jesenia Peng, STEAM FITTER-TECHNICIAN BIOLOGICAL HEALTH [facility], [address] [place] [phone] PCP - General 03/19/15 documented as of this encounter
--- OUTSIDE RECORDS SUMMARY | 2025-07-12 12:15 | XMS_ITS | Encounter Summary ---
Author Organization [employer] Sys tem Address [id number] [address] [place] [address] Care Team Providers Care Oil Dispenser Name Role Phone Jesenia Peng SIX COLOR PRESS OPERATOR-SURGICAL ELASTIC KNITTER HAND FRAME Primary Care Provider Encounter Details Date Type Department Care Team (Late st Contact Info) Description 12/04/2022 Telephone [facility] [address] [place] [address] Jaja Sanabria MA Social History Tobacco Use [...] Miscellaneous Notes * Telephone Encounter - Jaja Sanabria MA - 12/04/2022 3:08 PM EST Patient called for results of ultrasound. documented in this encounter Plan of Treatment Upcoming Encounters Date Type Department Care Team (Late st Contact Info) Description 07/20/2025 10:45 AM EDT Office Visit [facility], A Department of [address] [place] [address] Cliff Greenfield MD [address] [place] [address], [address] [place] [address] 08/01/2025 2:00 PM EDT Office Visit [facility] Neurology, Department of [address], [address], [address] [place] [phone] Trice Stinson MD [address] [place] [address] 101, 102, [address] [place] [address] 08/07/2025 11:00 AM EDT Office Visit [facility] [address] [facility] 170 [place] [address] Isidro Woodall DO [address] [address] 08/07/2025 11:00 AM EDT Appointment [facility] [address] [place] [address] 08/21/2025 2:30 PM EDT Appointment [facility] [address] [place] [address] 08/22/2025 2:30 PM EDT Office Visit [facility] [address] [facility] [address] [place] [address] Isidro Woodall DO [address] [facility] 170 [place] [address] 08/23/2025 1:30 PM EDT Office Visit [facility] [address] [facility] [address] [place] [address] Jesenia Peng, SIX COLOR PRESS OPERATOR-SURGICAL ELASTIC KNITTER HAND FRAME [address] [facility], [address] [place] [address] 09/26/2025 1:30 PM EST Office Visit [facility], A Department of [address] [place] [address] Neli Clemente MD MPH [address] [place] [phone] 10/13/2025 11:45 AM EST Office Visit [facility] Cardiology [address] [place] [address] [address] [place] [address] Duong [place], DO [address] [place] [address], [address] [place] [address] 10/13/2025 3:15 PM EST [facility], A Department of [address] [place] [address] Ines Uribe, SOPHY-C [address] [place] [address], [address] [place] [address] 11/14/2025 12:20 PM EST Office Visit [facility] [address] [facility] [address] [place] [address] Ofelia Pierce V, SIX COLOR PRESS OPERATOR-SURGICAL ELASTIC KNITTER HAND FRAME [address] [facility] [address] [place] [address] 11/21/2025 12:30 PM EST Appointment [facility] [place] [facility] [address] [place] [address] documented as of this encounter [...] documented as of this encounter Care Teams Oil Dispenser Relationship Specialty Start Date End Date Jesenia Peng, SIX COLOR PRESS OPERATOR-SURGICAL ELASTIC KNITTER HAND FRAME [address] [place] [address], [address] [place] [address] PCP - General 03/19/15 documented as of this encounter
--- OUTSIDE RECORDS SUMMARY | 2025-07-12 12:16 | XMS_ITS | Encounter Summary ---
Author Organization [facility] Address [id number] [address] [place] [address] Care Team Providers Care Spanish Instructor Name Role Phone Jesenia Peng FOOD PROCESSING SCIENTIST-DEMONSTRATOR ELECTRIC GAS APPLIANCES Primary Care Provider Reason for Visit * Reason Comments Med Refill Encounter Details Date Type Department Care Team (Late st Contact Info) Description 12/28/2024 Refill [facility] Neu[facility] [address] [place] [phone] Evette Okeefe MD [address] [facility] 101, [address], [address] [place], [place] [phone] Restless leg syndrome Social History Tobacco Use Types Packs/Day Years [...] encounter Miscellaneous Notes * Telephone Encounter - Evette Okeefe MD - 12/28/2024 12:51 PM EST Patient previously seen by Dr. Stinson documented in this encounter Plan of Treatment Upcoming Encounters Date Type Department Care Team (Late st Contact Info) Description 07/20/2025 10:45 AM EDT Office Visit [facility], A Department of [address] [place] [address] Cliff Greenfield MD [address] [place] [address], [address] [place] [address] 08/01/2025 2:00 PM EDT Office Visit [facility] Neurology, Department of [address], [address], [address] [place] [address] Trice Stinson MD [address] [place] [address] 101, 102, [address] [place] [address] 08/07/2025 11:00 AM EDT Office Visit [facility] [address] [facility] [address] [place] [address] Isidro Woodall DO [address] [facility] [address] [place] [address] 08/07/2025 11:00 AM EDT Appointment [facility] Rad[facility] [address] [place] [address] 08/21/2025 2:30 PM EDT Appointment [facility] [address] [place] [address] 08/22/2025 2:30 PM EDT Office Visit [facility] [address] [facility] [address] [place] [address] Isidro Woodall, DO [address] [facility] [address] [place] [address] 08/23/2025 1:30 PM EDT Office Visit [facility] [address] [facility] [address] [place] [address] Jesenia Peng, FOOD PROCESSING SCIENTIST-DEMONSTRATOR ELECTRIC GAS APPLIANCES [address] [facility], [address] [place] [address] 09/26/2025 1:30 PM EST Office Visit [facility], A Department of [address] [phone] Neli Clemente MD MPH [address] [place] [address] 10/13/2025 11:45 AM EST Office Visit [facility] Cardiology [address] [place] [phone] Duong Johnson DO [address] [place] [address], [address] [place] [address] 10/13/2025 3:15 PM EST Office Visit [facility], A Department of [address] [phone] Ines Uribe PA-C [address] [place] [address], [address] [address] 11/14/2025 12:20 PM EST Office Visit [facility] [address] [address] Ofelia Pierce V, FOOD PROCESSING SCIENTIST-DEMONSTRATOR ELECTRIC GAS APPLIANCES [address] [place] [address] [address] [place] [address] 11/21/2025 12:30 PM EST Appointment [facility] [place] [facility] Mammography [address] [place] [address] documented as of this encounter Goals Goal Patient Goal Type Associated Problems Recent Progress Patient-Stated? Author Discharge with home care General Yes Carmen Yañez, RN Note: Evaluation of progress towards goal: [facility] home with & [facility] documented as of this encounter Visit Diagnoses Diagnosis Restless leg syndrome Restless legs syndrome (RLS) documented in this encounter Additional Health Concerns Infection Onset Date Last Indicated Resolved Time COVID-19 Rule-Out 06/27/2025 06/27/2025 06/27/2025 2:03 PM EDT Assessment Noted Time PHQ-9 Depression Total Score: 0 08/09/20 24 7:00 AM EDT A Body Mass Index follow-up plan has been documented for the patient 06/29/2024 1:23 PM EDT documented as of this encounter Care Teams Spanish Instructor Relationship Specialty Start Date End Date Jesenia Peng, FOOD PROCESSING SCIENTIST-DEMONSTRATOR ELECTRIC GAS APPLIANCES [address] [place] [address], [address] [place] [address] PCP - General 03/19/15 documented as of this encounter
--- OUTSIDE RECORDS SUMMARY | 2025-07-12 12:16 | XMS_ITS | Encounter Summary ---
Author Organization [facility] tem Address [id number] [address] [place] [address] Care Team Providers Care Supervisor Shaving And Splitting Name Role Phone Jesenia Peng TRUMPET TEACHER-FRENCH FOLDER Primary Care Provider Encounter Details Date Type Department Care Team (Late Contact Info) Description 11/27/2022 Orders Only [facility] [address] [facility] 170 [place] [address] Anamaria Perkins CMA Primary hypertension; Mixed hyperlipidemia Social History Tobacco Use Types Packs/Day Years [...] Description 07/20/2025 10:45 AM EDT Office Visit [facility], A Department of [address] [place] [phone] Cliff Greenfield MD [address] [facility], [address] [place] [address] 08/01/2025 2:00 PM EDT Office Visit [facility], [facility] [address], [address], [address] [place] [address] Trice Stinson MD [address] [place] [address] [address], [address], [address] [place] [address] 08/07/2025 11:00 AM EDT Office Visit [facility] [address] [facility] [address] [place] [address] Isidro Woodall, DO [address] [facility] 170 [place] [address] 08/07/2025 11:00 AM EDT Appointment [facility] [address] [place] [address] 08/21/2025 2:30 PM EDT Appointment [facility] [address] [place] [address] 08/22/2025 2:30 PM EDT Office Visit [facility] [address] [facility] [address] [place] [address] Isidro Woodall, DO [address] [facility] 170 [place] [address] 08/23/2025 1:30 PM EDT Office Visit [facility] [address] [facility] [address] [place] [address] Jesenia Peng, TRUMPET TEACHER-FRENCH FOLDER [address] [facility], [address] [place] [address] 09/26/2025 1:30 PM EST [facility], A Department of [address] [place] [address] Neli Clemente MD MPH [address] [place] [address] 202 [place] [address] 10/13/2025 11:45 AM EST Office Visit [facility] Cardiology [address] [place] [address] [address] [place] [address] Duong Johnson, [address] [place] [address], [address] [place] [address] 10/13/2025 3:15 PM EST Office Visit [facility], A Department of [address] [place] [address] Ines Uribe, PARaphaelC [address] [place] [address], [address] [place] [address] 11/14/2025 12:20 PM EST Office Visit [facility] [address] [place] [address] Ofelia Pierce V, TRUMPET TEACHER-FRENCH FOLDER [address] [place] [address] 11/21/2025 12:30 PM EST Appointment [facility] [place] - Mammography [address] [place] [address] documented as of this encounter Goals Goal Patient Goal Type Associated Problems Recent Progress Patient-Stated? Author Discharge with home care General Yes Carmen Yañez, RN Note: Evaluation of progress towards goal: [facility] home with & [facility] documented as of this encounter Procedures Procedure Name Priority Date/Time Associated Diagnosis Comments CBC WITH AUTO DIFFERENTIAL Routine 11/25/2022 Primary hypertension URINALYSIS Routine 11/25/2022 Primary hypertension LIPID PROFILE Routine 11/25/2022 Mixed hyperlipidemia COMPREHENSIVE METABOLIC PANEL Routine 11/25/2022 Primary hypertension documented in this encounter Results * CBC auto differential (11/25/2022) 11/25/2022 Jesenia Yogesh Danish TRUMPET TEACHER-FRENCH FOLDER LAB BLOOD ORDERABLES Fi nal Result Performing Organization Address [facility] Co de Phone Number [facility] * Comprehensive metabolic panel (11/25/2022) 11/25/2022 Jesenialinsey Peng TRUMPET TEACHER-FRENCH FOLDER LAB BLOOD ORDERABLES Fi nal Result Performing Organization Address [facility] de Phone Number [employer] * Lipid profile (11/25/2022) External Cholesterol 250 <200 [employer] External Cholesterol:Hdl 3.0 <4.44 [employer] External Hdl Cholesterol 84 >39 [employer] External Ldl (Calc) 153 <100 [employer] External Triglycerides 63 <149 [employer] External Very Low Lipoprotein 13 <30 [employer] 11/25/2022 Jesenialinsey Peng TRUMPET TEACHER-FRENCH FOLDER LAB BLOOD ORDERABLES Fi nal Result Performing Organization Address [facility] de Phone Number [facility] * Urinalysis (11/25/2022) 11/25/2022 Jesenialinsey Peng TRUMPET TEACHER-FRENCH FOLDER URINE ORDERABLES Final Result Performing Organization Address [facility] de Phone Number [employer] documented in this encounter Visit Diagnoses Diagnosis Primary hypertension Unspecified essential hypertension Mixed hyperlipidemia documented in this encounter Additional Health Concerns Infection Onset Date Last Indicated Resolved Time COVID-19 Rule-Out 06/27/2025 06/27/2025 06/27/2025 2:03 PM EDT Assessment Noted Time PHQ-9 Depression Total Score: 9 07/23/20 22 11:00 AM EDT A Body Mass Index follow-up plan has been documented for the patient 07/24/2022 9:57 AM EDT documented as of this encounter Care Teams Supervisor Shaving And Splitting Relationship Specialty Start Date End Date Jesenia Peng APRN-FRENCH FOLDER [address] [place] [address], [address] [place] [address] PCP - General 03/19/15 documented as of this encounter
--- OUTSIDE RECORDS SUMMARY | 2025-07-12 12:16 | XMS_ITS | Encounter Summary ---
Author Organization [facility] Address [facility]-[id number] [address] [place] [address] Care Team Providers Care Parts Sales Manager Name Role Phone Jesenia Peng APRN-DATA OPERATIONS DIRECTOR Primary Care Provider Reason for Visit * Reason Comments Med Refill Encounter Details Date Type Department Care Team (Late st Contact Info) Description 03/10/2020 Refill [facility] [address] [facility] [address] [place] [phone] Jesenia Peng [facility] [address] [facility], [address] [place] [address] Essential hypertension Social History Tobacco Use Types Packs/Day Years Used Date Smoking Tobacco: Former Smokeless Tobacco: Never Alcohol Use Standard Drinks/Week Comments Yes 0 (1 standard drink = 0.6 oz pur e alcohol) PHQ-2 Answer Date Recorded PHQ-2 Score 0 03/14/2019 Childcare Answer Date Recorded Childcare Unknown 04/11/2019 Employment Answer Date Recorded Employment Unknown 04/11/2019 Comments No Sex and Gender Information Value Date Recorded Sex Assigned at Not on file Legal Sex Female 7:50 PM EDT Gender Identity Not on file Sexual Orientation Not on file COVID-19 Exposure Response Date Recorded In the last month, have you been in contact with someone who was confirmed or suspected to have Coronavirus / COVID-19? No / Unsure 03/06/2020 8:36 AM EDT documented as of this encounter Plan of Treatment Upcoming Encounters Date Type Department Care Team (Late st Contact Info) Description 07/20/2025 10:45 AM EDT Office Visit [facility] Care, A Department of [facility] [address] [place] [address] [address] [place] [address] Cliff Greenfield MD [address] [facility], [address] [place] [address] 08/01/2025 2:00 PM EDT Office Visit [facility] Neurology, A Department of [address] 101, 102, [address] [place] [address] Trice Stinson MD [address] [place] [address] 101, 102, 103 [place] [address] 08/07/2025 11:00 AM EDT Office Visit [facility] [address] [facility] [address] [place] [address] Isidro Woodall DO [address] [facility] 170 [place] [address] 08/07/2025 11:00 AM EDT Appointment [facility] [address] [place] [address] 08/21/2025 2:30 PM EDT Appointment [facility] [address] [place] [address] 08/22/2025 2:30 PM EDT Office Visit [facility] [address] [facility] [address] [place] [address] Isidro Woodall DO [address] [facility] 170 [place] [address] 08/23/2025 1:30 PM EDT Office Visit [facility] [address] [facility] [address] [place] [phone] Jesenia Peng, HUMAN RESOURCES RECRUITER-DATA OPERATIONS DIRECTOR [address] [facility], [address] [place] [address] 09/26/2025 1:30 PM EST Office Visit [facility], A Department of [address] [phone] Neli Clemente MD MPH [address] [place] [phone] 10/13/2025 11:45 AM EST Office Visit [facility] Cardiology [address] [place] [phone] Duong Johnson, [address] [place] [address], [address] [place] [address] 10/13/2025 3:15 PM EST Office Visit [facility] Care, A Department of [address] [phone] Ines Uribe PA-C [address] [place] [address], [address] [place] [address] 11/14/2025 12:20 PM EST Office Visit [facility] [address] [phone] Ofelia Pierce V, HUMAN RESOURCES RECRUITER-DATA OPERATIONS DIRECTOR [address] [facility] [place] [address] 11/21/2025 12:30 PM EST Appointment [facility] [address] [place] [phone] documented as of this encounter Visit Diagnoses Diagnosis Essential hypertension Unspecified essential hypertension documented in this encounter Additional Health Concerns Infection Onset Date Last Indicated Resolved Time COVID-19 Rule-Out 06/27/2025 06/27/2025 06/27/2025 2:03 PM EDT Assessment Noted Time PHQ-9 Depression Total Score: 0 03/14/20 9:00 AM EDT A Body Mass Index follow-up plan has been documented for the patient 09/15/2019 12:29 PM EST documented as of this encounter Care Teams Parts Sales Manager Relationship Specialty Start Date End Date Jesenia Peng, HUMAN RESOURCES RECRUITER-DATA OPERATIONS DIRECTOR [address] [place] [address], [address] [place] [address] PCP - General 03/19/15 documented as of this encounter
--- OUTSIDE RECORDS SUMMARY | 2025-07-12 12:16 | XMS_ITS | Encounter Summary ---
Author Organization [facility] Sys tem Address [facility]-[id number] [address] [place] [address] Care Team Providers Care Desktop Support Consultant Name Role Phone Jesenia Peng DRIER OPERATOR HEAD-SQUADRON WORKER Primary Care Provider Encounter Details Date Type Department Care Team (Late st Contact Info) Description 01/16/2021 Orders Only [facility] [address] [facility] [address] [place] [address] Jesenia Peng, DRIER OPERATOR HEAD-SQUADRON WORKER [address] [facility], [address] [place], [place] [phone] Diarrhea, unspecified type (Primary Dx) Social History Tobacco Use Types [...] have Coronavirus / COVID-19? No / Unsure 12/18/2020 4:09 PM EST documented as of this encounter Plan of Treatment Upcoming Encounters Date Type Department Care Team (Late st Contact Info) Description 07/20/2025 10:45 AM EDT Office Visit [facility] Care, A Department of [facility] [address] [place] [address] [address] [facility] [address] [place] [address] [place] [address], [address] [place] [address] 08/01/2025 2:00 PM EDT Office Visit [facility] Neurology, A Department of [address] 101, 102, [address] [place] [address] Trice Stinson MD [address] [place] [address] 101, 102, 103 [place] [address] 08/07/2025 11:00 AM EDT Office Visit [facility] [address] [address] Isidro Woodall DO [address] [address] 08/07/2025 11:00 AM EDT Appointment [facility] Rad[facility] [address] [place] [address] 08/21/2025 2:30 PM EDT Appointment [facility] [address] [place] [address] 08/22/2025 2:30 PM EDT Office Visit [facility] [address] [facility] 170 [place] [address] Isidro Woodall DO [address] [address] 08/23/2025 1:30 PM EDT Office Visit [facility] [address] [facility] [address] [place] [address] Jesenia Peng, DRIER OPERATOR HEAD-SQUADRON WORKER [address] [facility], [address] [place] [address] 09/26/2025 1:30 PM EST Office Visit [facility], A Department of [address] [place] [address] Neli Clemente MD MPH [address] [place] [phone] 10/13/2025 11:45 AM EST Office Visit [facility] Cardiology [address] [place] [address] 202 [place] [address] Duong Johnson, DO [address] [place] [address], [address] [place] [address] 10/13/2025 3:15 PM EST Office Visit [facility] Care, A Department of [address] [place] [address] Ines Uribe PA-C [address] [place] [address], [address] [place] [address] 11/14/2025 12:20 PM EST Office Visit [facility] [address] [facility] [address] [place] [address] Ofelia Pierce V, DRIER OPERATOR HEAD-SQUADRON WORKER [address] [facility] [address] [place] [address] 11/21/2025 12:30 PM EST [facility]ointment [facility] [address] [place] [address] documented as of this encounter Visit Diagnoses Diagnosis Diarrhea, unspecified type- Primary documented in this encounter Additional Health Concerns Infection Onset Date Last Indicated Resolved Time COVID-19 Rule-Out 06/27/2025 06/27/2025 06/27/2025 2:03 PM EDT Assessment Noted Time PHQ-9 Depression Total Score: 4 08/27/20 1:00 PM EDT A Body Mass Index follow-up plan has been documented for the patient 08/09/2020 7:22 AM EDT documented as of this encounter Care Teams Desktop Support Consultant Relationship Specialty Start Date End Date Jesenia Peng APRN-SQUADRON WORKER [address] [facility], [address] [place] [address] PCP - General 03/19/15 documented as of this encounter
--- OUTSIDE RECORDS SUMMARY | 2025-07-12 12:16 | XMS_ITS | Encounter Summary ---
Author Organization [facility] tem Address [facility]-[id number] [address] [place] [address] Care Team Providers Care Repair Specialist Name Role Phone Jesenia Peng LOCKS TENDER-REGIONAL SALES ENGINEER Primary Care Provider Reason for Visit * Reason Onset Date Comments Med Refill 11/19/2022 Encounter Details Date Type Department Care Team (Late st Contact Info) Description 11/19/2022 Refill [facility] [address] [place] [address] Alix Loo, IRENE Social History Tobacco Use Types Packs/Day [...] Description 07/20/2025 10:45 AM EDT Office Visit [facility] Care, A Department of [address] [address] Cliff Greenfield MD [address] [facility], [address] [place] [address] 08/01/2025 2:00 PM EDT Office Visit [facility], A Department of [facility] [address] 101, 102, [address] [place] [address] Trice Stinson MD [address] [place] [address] [address] 101, 102, 103 [place] [address] 08/07/2025 11:00 AM EDT Office Visit [facility] [address] [facility] 170 [place] [address] Isidro Woodall, DO [address] [facility] 170 [place] [address] 08/07/2025 11:00 AM EDT Appointment [facility] Rad[facility] [address] [place] [address] 08/21/2025 2:30 PM EDT Appointment [facility] [address] [place] [address] 08/22/2025 2:30 PM EDT Office Visit [facility] [address] [facility] [address] [place] [address] Isidro Woodall, DO [address] [facility] 170 [place] [address] 08/23/2025 1:30 PM EDT Office Visit [facility] [address] [facility] [address] [place] [address] Jesenia Peng, LOCKS TENDER-REGIONAL SALES ENGINEER [address] [facility], [address] [place] [address] 09/26/2025 1:30 PM EST [facility], A Department of [address] [place] [address] Neli Clemente MD MPH [address] [place] [address] 202 [place] [address] 10/13/2025 11:45 AM EST Office Visit [facility] Cardiology [address] [place] [address] 202 [place] [address] Duong Johnson, [address] [place] [address], [address] [place] [address] 10/13/2025 3:15 PM EST [facility], [facility] Department of [address] [place] [phone] Ines Uribe PA-C [address] [place] [address], [address] [place] [address] 11/14/2025 12:20 PM EST Office Visit [facility] [address] [facility] 170 [place] [phone] Ofelia [place] V, LOCKS TENDER-REGIONAL SALES ENGINEER [address] [place] [address] 11/21/2025 12:30 PM EST Appointment [facility] Mammography [address] [place] [address] documented as of this encounter Goals Goal [...] documented as of this encounter Care Teams Repair Specialist Relationship Specialty Start Date End Date Jesenia Peng, RADHA-REGIONAL SALES ENGINEER [address] [place] [address], [address] [place] [address] PCP - General 03/19/15 documented as of this encounter
--- OUTSIDE RECORDS SUMMARY | 2025-07-12 12:16 | XMS_ITS | Encounter Summary ---
Author Organization [facility] Sys tem Address [id number] [address] [place] [address] Care Team Providers Care Milking Machine Mechanic Name Role Phone Jesenia Peng HANDICAPPED TEACHER-MOLD MAKING SUPERVISOR Primary Care Provider Encounter Details Date Type Department Care Team (Late st Contact Info) Description 12/02/2022 Orders Only [facility] [address] [facility] [address] [place] [address] Jesenia Peng, HANDICAPPED TEACHER-MOLD MAKING SUPERVISOR [address] [facility], [address] [place], [place] [phone] Wheezing (Primary Dx) Social History Tobacco Use Types [...] 07/20/2025 10:45 AM EDT Office Visit [facility] Health Care, A Department of [address] [place] [address] [place] [address] [place] [address], [address] [place] [address] 08/01/2025 2:00 PM EDT Office Visit [facility] Neurology, A Department of [address] 101, 102, [address] [place] [address] Trice Stinson MD [address] [place] [address] 101, 102, 103 [place] [address] 08/07/2025 11:00 AM EDT Office Visit [facility] [address] [address] Isidro Woodall, DO [address] [address] 08/07/2025 11:00 AM EDT Appointment [facility] Radiology [address] [place] [address] 08/21/2025 2:30 PM EDT Appointment [facility] [address] [place] [address] 08/22/2025 2:30 PM EDT Office Visit [facility] [address] [facility] 170 [place] [address] Isidro Woodall DO [address] [address] 08/23/2025 1:30 PM EDT Office Visit [facility] [address] [facility] [address] [place] [address] Jesenia Peng, HANDICAPPED TEACHER-MOLD MAKING SUPERVISOR [address] [facility], [address] [place] [address] 09/26/2025 1:30 PM EST Office Visit [facility], A Department of [address] [place] [address] Neli Clemente MD MPH [address] [place] [address] 10/13/2025 11:45 AM EST Office Visit [facility] Cardiology [address] [place] [address] 202 [place] [phone] Duong Johnson, DO [address] [place] [address], [address] [place] [address] 10/13/2025 3:15 PM EST Office Visit [facility] Health Care, A Department of [address] [place] [address] Ines Uribe, SOPHY-C [address] [place] [address], [address] [place] [address] 11/14/2025 12:20 PM EST Office Visit [facility] [address] [facility] [address] [place] [address] Ofelia [place] V, HANDICAPPED TEACHER-MOLD MAKING SUPERVISOR [address] [facility] [address] [place] [address] 11/21/2025 12:30 PM EST Appointment [facility] [address] [place] [address] documented as of this encounter Goals Goal Patient Goal Type Associated Problems Recent Progress Patient-Stated? Author Discharge with home care General Yes Carmen Yañez, RN Note: Evaluation of progress towards goal: Discharge home with [facility] documented as of this encounter Visit Diagnoses Diagnosis Wheezing- Primary documented in this encounter Additional Health Concerns Infection Onset Date Last Indicated Resolved Time COVID-19 Rule-Out 06/27/2025 06/27/2025 06/27/2025 2:03 PM EDT Assessment Noted Time PHQ-9 Depression Total Score: 0 12/01/19 7:00 AM EST A Body Mass Index follow-up plan has been documented for the patient 07/24/2022 9:57 AM EDT documented as of this encounter Care Teams Milking Machine Mechanic Relationship Specialty Start Date End Date Jesenia Peng APRN-MOLD MAKING SUPERVISOR [address] [place] [address], [address] [place] [address] PCP - General 03/19/15 documented as of this encounter
--- OUTSIDE RECORDS SUMMARY | 2025-07-12 12:16 | XMS_ITS | Encounter Summary ---
Author Organization [facility] Address [facility][id number] [address] [place] [address] Care Team Providers Care Housing Court Judge Name Role Phone Jesenia Peng BUSINESS ASST-INSPECTION CLERK Primary Care Provider Reason for Visit * Reason Comments Med Refill Encounter Details Date Type Department Care Team (Late st Contact Info) Description 12/28/2024 Refill [facility] Rheumatology [address] [place] [address] Neli Clemente MD MPH [address] [place] [phone] Neck pain; Muscle tension pain Social [...] 07/20/2025 10:45 AM EDT Office Visit [facility], A Department of [address] [place] [address] [place] [address] [place] [address], [address] [place] [address] 08/01/2025 2:00 PM EDT Office Visit [facility] Neurology, A Department of [address] 101, 102, [address] [place] [phone] Trice Stinson MD [address] [place] [address] 101, 102, 103 [place] [address] 08/07/2025 11:00 AM EDT Office Visit [facility] [address] [facility] 170 [place] [address] Isidro Woodall, DO [address] [facility] 170 [place] [address] 08/07/2025 11:00 AM EDT Appointment [facility] Rad[facility] [address] [facility] [place] [address] 08/21/2025 2:30 PM EDT Appointment [facility] [address] [facility] [place] [address] 08/22/2025 2:30 PM EDT Office Visit [facility] [address] [place] [address] Isidro Woodall, DO [address] [place] [address] 08/23/2025 1:30 PM EDT Office Visit [facility] [address] [facility] 170 [place] [phone] Jesenia Peng, BUSINESS ASST-INSPECTION CLERK [address] [facility], [address] [place] [address] 09/26/2025 1:30 PM EST Office Visit [facility], A Department of [address] [place] [phone] Neli Clemente MD MPH [address] [place] [phone] 10/13/2025 11:45 AM EST Office Visit [facility] Cardiology [address] [place] [address] 202 [place] [address] Duong Johnson, [address] [place] [address], [address] [place] [address] 10/13/2025 3:15 PM EST Office Visit [facility] Health Care, A Department of [address] [place] [address] Ines Uribe, PA-C [address] [place] [address], [address] [place] [address] 11/14/2025 12:20 PM EST Office Visit [facility] [address] [facility] [address] [place] [phone] Ofelia Pierce V, BUSINESS ASST-INSPECTION CLERK [address] [facility] [address] [place] [address] 11/21/2025 12:30 PM EST Appointment [facility] [place] - Mammography [address] [place] [address] documented as of this encounter [...] documented as of this encounter Care Teams Housing Court Judge Relationship Specialty Start Date End Date Jesenia Peng APRN-INSPECTION CLERK [address] [place] [address], [address] [place] [address] PCP - General 03/19/15 documented as of this encounter
--- OUTSIDE RECORDS SUMMARY | 2025-07-12 12:16 | XMS_ITS | Encounter Summary ---
Author Organization [facility] Sys tem Address [id number] [address] [place] [address] Care Team Providers Care Plumber Gasfitter Name Role Phone Jesenia Peng ELECTRIFIER OPERATOR-HEALTH CARE FACILITIES INSPECTOR Primary Care Provider Encounter Details Date Type Department Care Team (Late Contact Info) Description 01/16/2021 Orders Only [facility] [address] [place] [phone] Anamaria Perkins CMA Social History Tobacco Use Types Packs/Day [...] 10:45 AM EDT Office Visit [facility], A Department of [address] [place] [address] Cliff Greenfield MD [address] [facility], [address] [place] [address] 08/01/2025 2:00 PM EDT Office Visit [facility] Neurology, A Department of [address] 101, 102, 103 [place] [address] Trice Stinson MD [address] [place] [address] 101, 102, 103 [place] [address] 08/07/2025 11:00 AM EDT Office Visit [facility] [address] [facility] 170 [place] [address] Isidro Woodall, DO [address] [facility] 170 [place] [address] 08/07/2025 11:00 AM EDT Appointment [facility] [address] [place] [address] 08/21/2025 2:30 PM EDT Appointment [facility] [address] [place] [address] 08/22/2025 2:30 PM EDT Office Visit [facility] [address] [facility] [address] [place] [address] Isidro Woodall, DO [address] [facility] [address] [place] [address] 08/23/2025 1:30 PM EDT Office Visit [facility] [address] [facility] [address] [place] [address] Jesenia Peng, ELECTRIFIER OPERATOR-HEALTH CARE FACILITIES INSPECTOR [address] [facility], [address] [place] [address] 09/26/2025 1:30 PM EST Office Visit [facility], A Department of [address] [phone] Neli Clemente MD MPH [address] [place] [phone] 10/13/2025 11:45 AM EST Office Visit [facility] Cardiology [address] [place] [phone] Duong Johnson, [address] [place] [address], [address] [place] [address] 10/13/2025 3:15 PM EST Office Visit [facility], A Department of [address] [place] [address] Ines Uribe, SOPHY-C [address] [place] [address], 103 [place] [address] 11/14/2025 12:20 PM EST Office Visit [facility] [address] [facility] [address] [place] [phone] Ofelia Pierce V, ELECTRIFIER OPERATOR-HEALTH CARE FACILITIES INSPECTOR [address] [facility] [address] [place] [address] 11/21/2025 12:30 PM EST Appointment [facility] [place] - Mammography [address] [place] [phone] documented as of this encounter Visit Diagnoses [...] documented as of this encounter Care Teams Plumber Gasfitter Relationship Specialty Start Date End Date Jesenia Peng APRN-JONEL [address] [place] [address], [address] [place] [address] PCP - General 03/19/15 documented as of this encounter
--- OUTSIDE RECORDS SUMMARY | 2025-07-12 12:16 | XMS_ITS | Encounter Summary ---
Author Organization [facility] tem Address [id number] [address] [place] [address] Care Team Providers Care Ship Steward Name Role Phone Jesenia Peng EQUIPMENT SERVICE TECHNICIAN-ELECTRIC TRUCK OPERATOR Primary Care Provider Encounter Details Date Type Department Care Team (Late Contact Info) Description 02/19/2021 Orders Only [facility] [address] [facility] [address] [place] [address] Jacqueline Romero CMA Essential hypertension (Primary Dx); Mixed hyperlipidemia; Dyslipidemia Social History Tobacco Use Types Packs/Day Years [...] 10:45 AM EDT Office Visit [facility], A Department of [address] [place] [phone] Cliff Greenfield MD [address], [address] [place] [address] 08/01/2025 2:00 PM EDT Office Visit [facility], A Department of [facility] [address] [place] [address] Trice Stinson MD [address] [place] [address] 101, [address], [address] [place] [address] 08/07/2025 11:00 AM EDT Office Visit [facility] [address] [facility] [address] [place] [address] Isidro Woodall, DO [address] [facility] [address] [place] [address] 08/07/2025 11:00 AM EDT Appointment [facility] Rad[facility] [address] [place] [address] 08/21/2025 2:30 PM EDT Appointment [facility] [address] [place] [address] 08/22/2025 2:30 PM EDT Office Visit [facility] [address] [facility] [address] [place] [address] Isidro Woodall, DO [address] [facility] [address] [place] [address] 08/23/2025 1:30 PM EDT Office Visit [facility] [address] [facility] [address] [place] [address] Jesenia Peng, EQUIPMENT SERVICE TECHNICIAN-ELECTRIC TRUCK OPERATOR [address] [facility], [address] [place] [address] 09/26/2025 1:30 PM EST [facility] Department of [address] [place] [phone] [place] MPH [address] [place] [address] 202 [place] [address] 10/13/2025 11:45 AM EST Office Visit [facility] Card[facility] [address] [place] [address] [address] [place] [address] Duong Johnson, [address] [place] [address], [address] [place] [address] 10/13/2025 3:15 PM EST Office Visit [facility], A Department of [address] [place] [address] Ines Uribe, PARaphaelC [address] [place] [address], [address] [place] [address] 11/14/2025 12:20 PM EST Office Visit [facility] [address] [facility] [address] [place] [address] Ofelia Pierce V, EQUIPMENT SERVICE TECHNICIAN-ELECTRIC TRUCK OPERATOR [address] [facility] [address] [place] [address] 11/21/2025 12:30 PM EST Appointment [facility] [place] - Mammography [address] [place] [address] documented as of this encounter Results * (ABNORMAL) Urinalysis with reflex culture (07/02/2021 8:42 AM EDT) Color YELLOW YELLOW^YE LLOW 07/02/2021 11:43 AM EDT [facility] Turbidity HAZY(A) CLEAR^DWAIN AR 07/02/2021 11:43 AM EDT [facility] Specific gravity 1.024 1.003 - 1.035 07/02/2021 11:43 AM EDT [facility] Nitrite Negative Negative^ Negative 07/02/2021 11:43 AM EDT [facility] Ph urine 5.5 5.0 - 8.5 07/02/2021 11:43 AM EDT [facility] Leukocyte esterase Trace(A) Negative^ Negative 07/02/2021 11:43 AM EDT [facility] Protein Negative Negative^ Negative mg/dL 07/02/2021 11:43 AM EDT [facility] Glucose, Ur Negative Negative^ Negative mg/dL 07/02/2021 11:43 AM EDT [facility] Ketones urine Negative Negative^ Negative mg/dL 07/02/2021 11:43 AM EDT [facility] Urobilinogen <1.1 <1.1 eu/dL 07/02/2021 11:43 AM EDT [facility] Bilirubin, urine Negative Negative^ Negative 07/02/2021 11:43 AM EDT [facility] Hemoglobin Negative Negative^ Negative 07/02/2021 11:43 AM EDT [facility] Ca oxalate crystals PRESENT(A) NONE^NONE 07/02/2021 11:43 AM EDT [facility] Mucus, UA PRESENT(A) NONE^NONE 07/02/2021 11:43 AM EDT [facility] RBC 17(H) 0 - 5 /hpf 07/02/2021 11:43 AM EDT [facility] Squamous epithelium 3 0 - 5 /hpf 07/02/2021 11:43 AM EDT [facility] WBC 5 0 - 5 /hpf 07/02/2021 11:43 AM EDT [facility] Serum / Unknown 07/02/2021 8 :42 AM EDT 07/02/2021 8:43 AM EDT us Jesenia Peng EQUIPMENT SERVICE TECHNICIAN-ELECTRIC TRUCK OPERATOR URINE ORDERABLES Final Result [facility] * Lipid profile (07/02/2021 8:34 AM EDT) Cholesterol 183 150 - 200 mg/dL 07/02/2021 12:07 PM EDT [facility] Triglycerides 41 27 - 150 mg/dL 07/02/2021 12:07 PM EDT [facility] HDL Cholesterol 80 >39 mg/dL 12:07 PM EDT [facility] Comment: HDL <40 mg/dL - High Risk HDL > or = 40mg/dL- Desirable HDL >60 mg/dL - Negative Risk VLDL 8 0 - 30 mg/dL 07/02/2021 12:07 PM EDT [facility] LDL (calc) 95 <130 mg/dL 07/02/2021 12:07 PM EDT [facility] Comment: LDL <100 mg/dL - Desirable LDL >160 mg/dL - High Risk Cholesterol:HDL Ratio 2.3 1.0 - 5.0 07/02/2021 12:07 PM EDT [facility] Serum / Unknown 07/02/2021 8 :34 AM EDT 07/02/2021 8:37 AM EDT us Jesenia Peng EQUIPMENT SERVICE TECHNICIAN-ELECTRIC TRUCK OPERATOR LAB BLOOD ORDERABLES Fi nal Result [place] [facility] [address] [facility], [address] [place] [address] * (ABNORMAL) Comprehensive metabolic panel (07/02/2021 8:34 AM EDT) Sodium 138 134 - 146 mmol/L 07/02/2021 12:07 PM EDT [facility] Potassium, Bld 3.7 3.5 - 5.0 mmol/L 07/02/2021 12:07 PM EDT [facility] Chloride 98 98 - 109 mmol/L 07/02/2021 12:07 PM EDT [facility] CO2 32 22 - 32 mmol/L 07/02/2021 12:07 PM EDT [facility] Anion gap 8 5 - 15 mmol/L 07/02/2021 12:07 PM EDT [facility] BUN 25 5 - 27 mg/dL 07/02/2021 12:07 PM T [facility] Creatinine 0.71 0.40 - 1.00 mg/dL 07/02/2021 12:07 PM EDT [facility] Comment:METHOD TRACEABLE TO IDMS STANDARD Glucose 107(H) 65 - 99 mg/dL 07/02/2021 12:07 PM EDT [facility] Calcium 9.8 8.5 - 10.5 mg/dL 07/02/2021 12:07 PM T [facility] Total Protein 7.5 6.0 - 8.0 g/dL 07/02/2021 12:07 PM T [facility] Albumin 4.5 3.2 - 5.3 g/dL 07/02/2021 12:07 PM T [facility] Alkaline Phosphatase 86 39 - 130 U/L 07/02/2021 12:07 PM T [facility] AST 19 0 - 41 U/L 07/02/2021 12:07 PM T [facility] ALT 5 0 - 31 U/L 07/02/2021 12:07 PM T [facility] Total bilirubin 1.3(H) 0.3 - 1.2 mg/dL 07/02/2021 12:07 PM EDT [facility] GFR MDRD Non Af Amer >60 >59 ml/min/1.7 3sq.m 07/02/2021 12:07 PM EDT [facility] GFR MDRD Af Amer >60 >59 ml/min/1.7 3sq.m 07/02/2021 12:07 PM T [facility] Serum / Unknown 07/02/2021 8 :34 AM EDT 07/02/2021 8:37 AM EDT us Jesenia Peng EQUIPMENT SERVICE TECHNICIAN-ELECTRIC TRUCK OPERATOR LAB BLOOD ORDERABLES Fi nal Result [place] [facility] [address] [facility] [place] [address] * CBC auto differential (07/02/2021 8:34 AM EDT) White Blood Cells 4.6 4.0 - 11.0 X10E9/L 07/02/2021 11:53 AM EDT [facility] RBC count 4.42 3.80 - 5.20 X10E12/L 07/02/2021 11:53 AM EDT [facility] Hemoglobin 13.5 11.7 - 15.5 g/dL 07/02/2021 11:53 AM EDT [facility] Hematocrit 39.6 35 - 47 % 07/02/2021 11:53 AM EDT [facility] MCV 90 80 - 100 fL 07/02/2021 11:53 AM EDT [facility] MCH 30.5 27 - 34 pg 07/02/2021 11:53 AM EDT [facility] MCHC 34.1 32 - 36 g/dL 07/02/2021 11:53 AM EDT [facility] RDW 14.0 11.5 - 15.0 % 07/02/2021 11:53 AM EDT [facility] Platelets 187 150 - 450 X10E9/L 07/02/2021 11:53 AM EDT [facility] MPV 9.6 7 - 12 fL 07/02/2021 11:53 AM EDT [facility] % neutrophils 49.5 % 07/02/2021 11:53 AM EDT [facility] % lymphocytes 32.0 % 07/02/2021 11:53 AM EDT [facility] % monocytes 9.2 % 07/02/2021 11:53 AM EDT [facility] % eosinophils 8.9 % 07/02/2021 11:53 AM EDT [facility] % Basophils 0.4 % 07/02/2021 11:53 AM EDT [facility] Neutrophils Absolute (A) 2.3 1.5 - 6.6 X10E9/L 07/02/2021 11:53 AM EDT [facility] Lymphocytes Absolute 1.5 1.0 - 3.5 X10E9/L 07/02/2021 11:53 AM EDT [facility] Monocytes Absolute 0.4 0 - 0.9 X10E9/L 07/02/2021 11:53 AM EDT [facility] Eosinophils Absolute 0.4 0.0 - 0.4 X10E9/L 07/02/2021 11:53 AM EDT [facility] Basophils Absolute 0.0 0.0 - 0.2 X10E9/L 07/02/2021 11:53 AM EDT [facility] Serum / Unknown 07/02/2021 8 :34 AM EDT 07/02/2021 8:37 AM EDT us Jesenia Peng EQUIPMENT SERVICE TECHNICIAN-ELECTRIC TRUCK OPERATOR LAB BLOOD ORDERABLES Fi nal Result [place] [facility] [address] [facility], [address] [place] [address] documented in this encounter Visit Diagnoses Diagnosis Essential hypertension- Primary Unspecified essential hypertension Mixed hyperlipidemia Dyslipidemia Other and unspecified hyperlipidemia documented in this encounter Additional Health Concerns Infection Onset Date Last Indicated Resolved Time COVID-19 Rule-Out 06/27/2025 06/27/2025 06/27/2025 2:03 PM EDT Assessment Noted Time PHQ-9 Depression Total Score: 4 08/27/20 20 1:00 PM EDT A Body Mass Index follow-up plan has been documented for the patient 08/09/2020 7:22 AM EDT documented as of this encounter Care Teams Ship Steward Relationship Specialty Start Date End Date Jesenia Peng APRN-CNP [facility] [facility], [address] [place] [address] PCP - General 03/19/15 documented as of this encounter
--- OUTSIDE RECORDS SUMMARY | 2025-07-12 12:16 | XMS_ITS | Encounter Summary ---
Author Organization [facility] tem Address [id number] [address] [place] [address] Care Team Providers Care Tiler Name Role Phone Jesenia Peng BARREL STRAIGHTENER-HABITAT BIOLOGIST Primary Care Provider Encounter Details Date Type Department Care Team (Late Contact Info) Description 09/19/2021 Orders Only [facility] [address] [facility] [address] [place] [address] Anamaria Perkins CMA Osteopenia, unspecified location; Menopause Social History Tobacco Use Types Packs/Day Years Used Date Smoking Tobacco: Former Cigarettes Q uit: 2018 Smokeless Tobacco: Never Alcohol Use Standard Drinks/Week Comments Yes 1 (1 standard drink = 0.6 oz pur e alcohol) daily PHQ-2 Answer Date Recorded Total Score 7 07/24/2021 Childcare Answer Date Recorded Childcare Unknown 04/11/2019 [...] 07/20/2025 10:45 AM EDT [facility] Visit [facility], A Department of [address] [place] [phone] Cliff Greenfield MD [address] [facility], [address] [place] [address] 08/01/2025 2:00 PM EDT [facility] Visit [facility] [address] [place] [address] Trice Stinson MD [address] [place] [address] 101, [address], [address] [place] [address] 08/07/2025 11:00 AM EDT Office Visit [facility] [address] [facility] [address] [place] [address] Isidro Woodall, DO [address] [facility] [address] [place] [address] 08/07/2025 11:00 AM EDT Appointment [facility] [address] [place] [address] 08/21/2025 2:30 PM EDT Appointment [facility] [address] [place] [address] 08/22/2025 2:30 PM EDT Office Visit [facility] [address] [facility] [address] [place] [address] Isidro Woodall, DO [address] [facility] [address] [place] [address] 08/23/2025 1:30 PM EDT Office Visit [facility] [address] [facility] [address] [place] [address] Jesenia Peng, BARREL STRAIGHTENER-HABITAT BIOLOGIST [address] [facility], [address] [place] [address] 09/26/2025 1:30 PM EST Office Visit [facility], A Department of [address] [place] [address] [place] M[place] [address] [place] [address] [address] [place] [address] 10/13/2025 11:45 AM EST Office Visit [facility] [address] [place] [address] [address] [place] [address] Duong Johnson, [address] [facility], [address] [place] [address] 10/13/2025 3:15 PM EST [facility] Department of [address] [place] [address] Ines Uribe, ALEXC [address] [place] [address], [address] [place] [address] 11/14/2025 12:20 PM EST Office Visit [facility] [address] [facility] [address] [place] [address] Ofelia Pierce V, BARREL STRAIGHTENER-HABITAT BIOLOGIST [address] [facility] [address] [place] [address] 11/21/2025 12:30 PM EST Appointment [facility] [place] - Mammography [address] [place] [address] documented as of this encounter Procedures Procedure Name Priority Date/Time Associated Diagnosis Comments DEXA SCAN CENTRAL SKELETAL Routine 09/12/2021 Osteopenia, unspecified location Menopause documented in this encounter Results * Dexa scan central skeletal (09/12/2021) Anatomical Region Laterality Modality N/A Radiographic Priya ging 09/12/2021 Jesenia LAFLEUR IM DXA ORDERABLES Katherine osvaldo Result documented in this encounter Visit Diagnoses Diagnosis Osteopenia, unspecified location Menopause Symptomatic menopausal or female climacteric states documented in this encounter Additional Health Concerns Infection Onset Date Last Indicated Resolved Time COVID-19 Rule-Out 06/27/2025 06/27/2025 06/27/2025 2:03 PM EDT Assessment Noted Time PHQ-9 Depression Total Score: 7 07/24/20 21 8:13 PM EDT A Body Mass Index follow-up plan has been documented for the patient 08/09/2020 7:22 AM EDT documented as of this encounter Care Teams Tiler Relationship Specialty Start Date End Date Jesenia Peng APRN-CNP [address] [place] [address], [address] [place] [address] PCP - General 03/19/15 documented as of this encounter
--- OUTSIDE RECORDS SUMMARY | 2025-07-12 12:16 | XMS_ITS | Clinical Summary ---
Author Organization [facility] Address [address] [facility], [address] [place] [address] Care Team Providers Care Health Inspector Name Role Phone John Dominguez MD Primary Care Provider [phone] Allergies No known active allergies Medications rasagiline mesylate 1 MG TABS Take 1 tablet by mouth daily. Active simvastatin (ZOCOR) 20 MG tablet Take 20 mg by mouth nightly. Active clonazePAM (KLONOPIN) 0.5 MG tablet Take 0.5 mg by mouth 3 times daily as needed for Anxiety (1/2 in am 1/2 lunch 2 at night). Active Losartan Potassium-HCTZ (HYZAAR PO) Take 12.5 mg by mouth daily. Active tiotropium (SPIRIVA) 18 MCG inhalation capsule Inhale 18 mcg into the lungs daily. Active pramipexole (MIRAPEX) 1 MG tablet Take 3.75 mg by mouth Daily. Active Family History Medical History Relation Name Comments Breast Cancer Neg Hx Social History Tobacco Use Types Packs/Day Years Used Date Smoking Tobacco: Former Smokeless Tobacco: Never Alcohol Use Standard Drinks/Week Comments Yes 1 (1 standard drink = 0.6 oz pur e alcohol) Comments No Sex and Gender Information Value Date Recorded Sex Assigned at Not on file Legal Sex Female 11:57 AM EST Gender Identity Not on file Sexual Orientation Not on file Last Filed Vital Signs Vital Sign Reading Time Taken Comments Blood Pressure 134/87 12/01/2013 9:02 PM EST Pulse 109 12/01/2013 9:02 PM EST Temperature 36.9 C (98.4 F) 12/01/2013 7:50 PM EST Respiratory Rate 32 12/01/2013 9:02 PM EST Oxygen Saturation 94% 12/01/2013 9:02 PM EST Inhaled Oxygen Concentration - - Weight 45.4 kg (100 lb) 01/13/2024 11:32 AM EST Height 160 cm (5' 3 ) 01/13/2024 11:32 AM EST Body Mass Index 17.71 01/13/2024 11:32 AM EST Plan of Treatment Health Maintenance Due Date Last Done Comments Lipids 1961 Depression Screen 1963 Hepatitis C screen 1969 Colonoscopy 1996 Colorectal Cancer Screen 1996 FIT/FOBT: Average risk 1996 Fecal-DNA (Cologuard): Average risk 1996 Sigmoidoscopy/CT colonography 1996 COVID-19 Vaccine ( season) 2024 11/14/2022, 01/19/2021, 12/22/2020 Flu vaccine (#1) 06/09/2025 11/14/2022, , 08/27/2020, Additional history exists Breast cancer screen 01/12/2026 01/13/2024, 09/12/2021, 09/12/2021, Additional history exists Respiratory Syncytial Virus (RSV) or age 60 yrs+ (1 - 1-dose 75+ series) 2026 DTaP/Tdap/Td vaccine (3 - Td or Tdap) 07/25/2031 07/25/2021, 01/30/2011 Pneumococcal 50+ years Vaccine Completed 03/15/2020, 12/23/2018, 09/15/2017 Shingles vaccine Completed 12/25/2021, , 02/09/2015 DEXA (modify frequency per FRAX score) Completed 06/21/2024, 09/12/2021, 09/06/2019, Additional history exists Hepatitis A vaccine Aged Out No longe r eligible based on patient's age to complete this topic Hepatitis B vaccine Aged Out No longe r eligible based on patient's age to complete this topic Hib vaccine Aged Out No longer eligi ble based on patient's age to complete this topic Meningococcal (ACWY) vaccine Aged Out No longer eligible based on patient's age to complete this topic Meningococcal B vaccine Aged Out No l onger eligible based on patient's age to complete this topic Polio vaccine Aged Out No longer elig ible based on patient's age to complete this topic Procedures Procedure Name Priority Date/Time Associated Diagnosis Comments DEXA BONE DENSITY AXIAL SKELETON Routine 06/21/2024 10:43 AM EDT Osteopenia after menopause AIDAN JOSE DIGITAL SCREEN SELF REFERRAL W OR WO CAD BILATERAL Routine 01/13/2024 11:32 AM EST Visit for screening mammogram from Last 3 Months or Most Recently Relevant to Health Maintenance Results * DEXA BONE DENSITY AXIAL SKELETON (06/21/2024 10:43 AM EDT) Anatomical Region Laterality Modality Head, C-spine, T-spine, L-spine, Chest Other 06/22/2024 1:18 PM EDT Impressions 06/22/2024 3:17 PM EDT Osteopenia by WHO criteria. RECOMMENDATIONS: 1. All patients should optimize their calcium and vitamin D intake. 2. Consider FDA-approved medical therapies in postmenopausal women and men aged 50 years and older, based on the following: - A hip or vertebral (clinical or morphometric) fracture - T-score less than or equal to -2.5 at the femoral neck or spine after appropriate evaluation to exclude secondary causes - Low bone density (T-score between -1.0 and -2.5 at the femoral neck or spine) and a 10-year probability of a hip fracture greater than or equal to 3% or a 10-year probability of a major osteoporosis-related fracture greater than or equal to 20% based on FRAX calculation. - Clinician judgment and/or patient preferences may indicate treatment for people with 10-year fracture probabilities above or below these levels - Further guidance on treatment can be found at the National Osteoporosis Foundation's website bonesource.org. 3. Patients with diagnosis of osteoporosis or at high risk for fracture should have regular bone mineral density tests. For patients eligible for Medicare, routine testing is allowed once every 2 years. The testing frequency can be increased to one year for patients who have rapidly progressing disease, those who are receiving or discontinuing medical therapy to restore bone mass or have additional risk factors. Template code: [id number] Narrative 06/22/2024 3:17 PM EDT EXAMINATION: BONE DENSITOMETRY 06/21/2024 10:34 am TECHNIQUE: A bone density dual x-ray absorptiometry (DXA) scan was performed of the lumbar spine and left hip on a Simple ITigy system. COMPARISON: None. HISTORY: ORDERING SYSTEM PROVIDED HISTORY: Osteopenia after menopause Gender: F Age: 73 y/o FINDINGS: LUMBAR SPINE: L1, L3 BMD: 1.224 g/cm2 T-score: 0.4 Z-score: 2.8 LEFT TOTAL HIP: BMD: 0.911 g/cm2 T-score: -0.8 Z-score: 1.4 LEFT FEMORAL NECK: BMD: 0.834 g/cm2 T-score: -1.5 Z-score: 0.8 FRAX 10-YEAR PROBABILITY OF FRACTURE: 10-year fracture risk is performed using the [employer] FRAX calculator based on patient-reported risk factors. Major osteoporotic fracture: 8.2% Hip fracture: 1.6% Other situations known to alter the reliability of the FRAX score should be considered when making treatment decisions, including chronic glucocorticoid use and past treatments. Further guidance on treatment can be found at the National Osteoporosis Foundation's website bonesource.org. Procedure Note Franky Fuentes MD - 06/22/2024 EXAMINATION: BONE DENSITOMETRY 06/21/2024 10:34 am TECHNIQUE: A bone density dual x-ray absorptiometry (DXA) scan was performed of the lumbar spine and left hip on a Simple ITig[employer] system. COMPARISON: None. HISTORY: ORDERING SYSTEM PROVIDED HISTORY: Osteopenia after menopause Gender: F Age: 73 y/o FINDINGS: LUMBAR SPINE: L1, L3 BMD: 1.224 g/cm2 T-score: 0.4 Z-score: 2.8 LEFT TOTAL HIP: BMD: 0.911 g/cm2 T-score: -0.8 Z-score: 1.4 LEFT FEMORAL NECK: BMD: 0.834 g/cm2 T-score: -1.5 Z-score: 0.8 FRAX 10-YEAR PROBABILITY OF FRACTURE: 10-year fracture risk is performed using the [employer]RA[employer] calculator based on patient-reported risk factors. Major osteoporotic fracture: 8.2% Hip fracture: 1.6% Other situations known to alter the reliability of the FRAX score shouldbe considered when making treatment decisions, including chronicglucocorticoid use and past treatments. Further guidance on treatment can be found atthe National Osteoporosis Foundation's website bonesource.org. IMPRESSION: Osteopenia by WHO criteria. RECOMMENDATIONS: 1. All patients should optimize their calcium and vitamin D intake. 2. Consider FDA-approved medical therapies in postmenopausal women andmen aged 50 years and older, based on the following: - A hip or vertebral (clinical or morphometric) fracture - T-score less than or equal to -2.5 at the femoral neck or spine after appropriate evaluation to exclude secondary causes - Low bone density (T-score between -1.0 and -2.5 at the femoral neck or spine) and a 10-year probability of a hip fracture greater than or equalto 3% or a 10-year probability of a major osteoporosis-related fracturegreater than or equal to 20% based on FRAX calculation. - Clinician judgment and/or patient preferences may indicate treatmentfor people with 10-year fracture probabilities above or below these levels - Further guidance on treatment can be found at the NationalOsteoporosis Foundation's website bonesource.org. 3. Patients with diagnosis of osteoporosis or at high risk for fracture should have regular bone mineral density tests. For patients eligiblefor Medicare, routine testing is allowed once every 2 years. The testing frequency can be increased to one year for patients who have rapidly progressing disease, those who are receiving or discontinuing medicaltherapy to restore bone mass or have additional risk factors. Template code: [id number]_DX_dxa Jesenia Danish GARCIA - STAFF TOXICOLOGIST IMG DEXA ORDERABLES Fin al Result * AIDAN JOSE DIGITAL SCREEN SELF REFERRAL W OR WO CAD BILATERAL (01/13/2024 11:32 AM EST) Anatomical Region Laterality Modality Breast Bilateral Mammography 01/15/2024 10:4 7 AM EST Impressions 01/15/2024 10:48 AM EST Stable exam. No mammographic evidence of malignancy BIRADS: BIRADS - CATEGORY 2 Benign Findings. Normal interval follow-up is recommended in 12 months. OVERALL ASSESSMENT - BENIGN A letter of notification will be sent to the patient regarding the results. The [employer] recommends annual mammograms for women 40 years and older. Narrative 01/15/2024 10:48 AM EST EXAMINATION: SCREENING DIGITAL BILATERAL MAMMOGRAM WITH TOMOSYNTHESIS, 01/13/2024 TECHNIQUE: Screening mammography of the bilateral breasts was performed with tomosynthesis. 2D standard and 3D tomosynthesis combination imaging performed through both breasts in the MLO and CC projection. Computer aided detection was utilized in the interpretation of this exam. COMPARISON: November 18, 2022 and September 12, 2021 HISTORY: Screening. FINDINGS: The breasts are heterogeneously dense which can obscure small masses. There is no dominant mass architectural distortion or concerning grouping of microcalcification in either breast. Stable bilateral implants. Benign-appearing calcifications are stable. Jesenia Peng METER AND REGULATOR SHOP SUPERVISOR - STAFF TOXICOLOGIST IM MAMMOGRAPHY ORDERAB LES Final Result from Last 3 Months or Most Recently Relevant to Health Maintenance Insurance [facility] Care Teams Health Inspector Relationship Specialty Start Date End Date John Dominguez MD PCP - General 12/01/13
--- OUTSIDE RECORDS SUMMARY | 2025-07-12 12:16 | XMS_ITS | Encounter Summary ---
Author Organization [employer] Address [id number] [address] [place] [address] Care Team Providers Care Grid Trimmer Name Role Phone Jesenia Peng CANDY FEEDER-CUSTOMS MANAGER Primary Care Provider Encounter Details Date Type Department Care Team (Late st Contact Info) Description 01/16/2021 Telephone [facility] [address] [place] [phone] Anamaria Perkins CMA Social History Tobacco Use [...] encounter Miscellaneous Notes * Telephone Encounter - Anamaria Perkins CMA - 01/16/2021 4:01 PM EST Had her first Moderna injection on 12/22 ever since has had diarrhea, 8-10 BM's daily, watery, denies any cramping. Could you put in an order for stools. [place] will pick the containers up after work Anamaria Perkins CMA 01/16/21 1613 * Telephone Encounter - CIARRA Osei - 01/16/2021 4:01 PM EST Recommend stool culture. documented in this encounter Plan of Treatment Upcoming Encounters Date Type Department Care Team (Late st Contact Info) Description 07/20/2025 10:45 AM EDT Office Visit [facility], A Department of [address] [phone] Cliff Greenfield MD [address] [place] [address], [address] [place] [address] 08/01/2025 2:00 PM EDT Office Visit [facility] Neurology, A Department of [address], [address], [address] [place] [address] Trice Stinson MD [address] [place] [address] 101, 102, [address] [place] [address] 08/07/2025 11:00 AM EDT Office Visit [facility] [address] [facility] [address] [place] [address] Isidro Woodall DO [address] [facility] [address] [place] [address] 08/07/2025 11:00 AM EDT Appointment [facility] [address] [place] [place] [address] 08/21/2025 2:30 PM EDT Appointment [facility] [address] [place] [address] 08/22/2025 2:30 PM EDT Office Visit [facility] [address] [facility] [address] [place] [address] Isidro Woodall, DO [address] [facility] [address] [place] [address] 08/23/2025 1:30 PM EDT Office Visit [facility] [address] [facility] [facility] [address] [place] [address] Jesenia Peng, CANDY FEEDER-CUSTOMS MANAGER [address] [facility] [facility], [address] [place] [address] 09/26/2025 1:30 PM EST [facility] Visit [facility], A Department of [address] [phone] Neli Clemente MD MPH [address] [place] [phone] 10/13/2025 11:45 AM EST Office Visit [facility] Card[facility] [address] [place] [phone] Duong oJhnson, [address] [place] [address], [address] [place] [address] 10/13/2025 3:15 PM EST [facility] Visit [facility], A Department of [address] [phone] Ines Uribe PA-C [address] [place] [address] 11/14/2025 12:20 PM EST Office Visit [facility] [address] [facility] [address] [place] [phone] Ofelia Pierce APRN-CUSTOMS MANAGER [address] [facility] [address] [place] [address] 11/21/2025 12:30 PM EST Appointment [facility] [place] - Mammography [address] [place] [address] documented as of this encounter Visit Diagnoses [...] documented as of this encounter Care Teams Grid Trimmer Relationship Specialty Start Date End Date Jesenia Peng APRN-CUSTOMS MANAGER [address] [place] [address], [address] [place] [address] PCP - General 03/19/15 documented as of this encounter
--- OUTSIDE RECORDS SUMMARY | 2025-07-12 12:16 | XMS_ITS | Encounter Summary ---
Author Organization [employer] Address [id number] [address] [place] [address] Care Team Providers Care Puzzle Assembler Name Role Phone Jesenia Peng CONTRACT ADMINISTRATIVE ASSISTANT-RESIDENTIAL SUPPORT WORKER Primary Care Provider Reason for Visit * Reason Comments Med Refill Encounter Details Date Type Department Care Team (Late Contact Info) Description 11/27/2022 Refill [facility] Neu[facility] [address] [place] [phone] Ty Branham MD [address] [place] [address], [facility] 101, [address], [address] [place], [place] [phone] Parkinson's disease ([facility]); Insomnia due to medical condition Social History Tobacco Use Types Packs/Day Years [...] [facility], A Department of [address] [place] [address] [place] [address] [place] [address], [address] [place] [address] 08/01/2025 2:00 PM EDT Office Visit [facility] Neurology, A Department of [address], [address], [address] [place] [phone] Trice Stinson MD [address] [place] [address] 101, 102, [address] [place] [address] 08/07/2025 11:00 AM EDT Office Visit [facility] [address] [facility] [address] [place] [address] Isidro Woodall, DO [address] [facility] [address] [place] [address] 08/07/2025 11:00 AM EDT Appointment [facility] Rad[facility] [address] [place] [address] 08/21/2025 2:30 PM EDT Appointment [facility] [address] [place] [address] 08/22/2025 2:30 PM EDT Office Visit [facility] [address] [facility] [address] [place] [address] Isidro Woodall, DO [address] [facility] [address] [place] [address] 08/23/2025 1:30 PM EDT Office Visit [facility] [address] [facility] [address] [place] [address] Jesenia Peng, CONTRACT ADMINISTRATIVE ASSISTANT-RESIDENTIAL SUPPORT WORKER [address] [facility], [address] [place] [address] 09/26/2025 1:30 PM EST Office Visit [facility] Rheumatology, A Department of [address] [place] [phone] Neli Clemente MD MPH [address] [place] [address] [address] [place] [phone] 10/13/2025 11:45 AM EST Office Visit [facility] Cardiology [address] [place] [address] [address] [place] [phone] Duong Johnson, DO [address] [place] [address], [address] [place] [address] 10/13/2025 3:15 PM EST Office Visit [facility], A Department of [address] [place] [phone] Ines Uribe PA-C [address] [place] [address], [address] [place] [address] 11/14/2025 12:20 PM EST Office Visit [facility] [address] [facility] [address] [place] [address] Ofelia Pierce V, CONTRACT ADMINISTRATIVE ASSISTANT-RESIDENTIAL SUPPORT WORKER [address] [facility] [address] [place] [address] 11/21/2025 12:30 PM EST Appointment [facility] [place] [facility] [address] [place] [phone] documented as of this encounter Goals Goal Patient Goal Type Associated Problems Recent Progress Patient-Stated? Author Discharge with home care General Yes Carmen Yañez, RN Note: Evaluation of progress towards goal: Discharge home with [facility] documented as of this encounter Visit Diagnoses Diagnosis Parkinson's disease (CMS-HCC) Paralysis agitans Insomnia due to medical condition Organic insomnia, unspecified documented in this encounter Additional Health Concerns Infection Onset Date Last Indicated Resolved Time COVID-19 Rule-Out 06/27/2025 06/27/2025 06/27/2025 2:03 PM EDT Assessment Noted Time PHQ-9 Depression Total Score: 9 07/23/20 22 11:00 AM EDT A Body Mass Index follow-up plan has been documented for the patient 07/24/2022 9:57 AM EDT documented as of this encounter Care Teams Puzzle Assembler Relationship Specialty Start Date End Date Jesenia Peng APRN-JONEL [address] [place] [address], [address] [place] [address] PCP - General 03/19/15 documented as of this encounter
--- OUTSIDE RECORDS SUMMARY | 2025-07-12 12:16 | XMS_ITS | Encounter Summary ---
Author Organization [employer] [facility] Address [facility]-[id number] [address] [place] [address] Care Team Providers Care Sebd Teacher Name Role Phone Jesenia Peng APRN-JONEL Primary Care Provider Reason for Referral * Consultation (Routine) - Closed Specialty Diagnoses / Procedures Referred By Madeline giles Referred To Contact Otolaryngology Diagnoses Oral lesion Jesenia Peng APRN-CNP [address] [facility], [address] [place] [address] Phone: tel: fax: [place] [address] [place] [address], [address] [place] [address] Phone: tel: fax: Referral ID Status Reason Start Date Expiration Date V isits Requested Visits Authorized [id number] Closed Specialty Services Required 11/11/2021 11/11/2022 1 1 Encounter Details Date Type Department Care Team (Late st Contact Info) Description 11/11/2021 Orders Only [facility] [address] [place] [phone] Jesenia Peng APRN-CNP [address] [facility], [address] [place], [place] [phone] Oral lesion (Primary Dx) Social History Tobacco Use Types [...] AM EDT Office Visit [facility], A Department of [address] [place] [address] Cliff Greenfield MD [address] [place] [address], [address] [place] [address] 08/01/2025 2:00 PM EDT Office Visit [facility] Neurology, A Department of [address], [address], [address] [place] [phone] Trice Stinson MD [address] [place] [address] 101, 102, [address] [place] [address] 08/07/2025 11:00 AM EDT Office Visit [facility] [address] [phone] Isidro Woodall DO [address] [facility] [address] [place] [address] 08/07/2025 11:00 AM EDT Appointment [facility] Rad[facility] [address] [place] [address] 08/21/2025 2:30 PM EDT Appointment [facility] [address] [place] [address] 08/22/2025 2:30 PM EDT Office Visit [facility] [address] [facility] [address] [place] [address] Isidro Woodall, DO [address] [facility] [address] [place] [address] 08/23/2025 1:30 PM EDT Office Visit [facility] [address] [facility] [address] [place] [address] Jesenia Peng, LASER ENGRAVER-QUALITY CONTROL ASSISTANT [address] [facility], [address] [place] [address] 09/26/2025 1:30 PM EST [facility] Visit [facility], A Department of [address] [phone] Neli Clemente MD MPH [address] [place] [phone] 10/13/2025 11:45 AM EST Office Visit [facility] Cardiology [address] [place] [phone] Duong Johnson, DO [address] [place] [address], [address] [place] [address] 10/13/2025 3:15 PM EST [facility] Visit [facility], A Department of [address] [phone] Ines Uribe, PA-C [address] [place] [address] 11/14/2025 12:20 PM EST Office Visit [facility] [address] [facility] [address] [place] [phone] Ofelia Pierce V LASER ENGRAVER-QUALITY CONTROL ASSISTANT [address] [facility] [address] [place] [address] 11/21/2025 12:30 PM EST Appointment [facility] [place] - Mammography [address] [place] [phone] Scheduled Referrals Name Type Priority Associated Diagnoses Order Schedule [facility] [place], [place] Outpatient Referral Routine Oral lesion 1 Occurrences starting 11/11/2021 until 11/11/2022 documented as of this encounter Visit Diagnoses Diagnosis Oral lesion- Primary Other and unspecified diseases of the oral soft tissues documented in this encounter Additional Health Concerns Infection Onset Date Last Indicated Resolved Time COVID-19 Rule-Out 06/27/2025 06/27/2025 06/27/2025 2:03 PM EDT Assessment Noted Time PHQ-9 Depression Total Score: 7 07/24/20 21 8:13 PM EDT A Body Mass Index follow-up plan has been documented for the patient 08/09/2020 7:22 AM EDT documented as of this encounter Care Teams Sebd Teacher Relationship Specialty Start Date End Date Jesenia Peng, LASER ENGRAVER-QUALITY CONTROL ASSISTANT [address] [place] [address], [address] [place] [address] PCP - General 03/19/15 documented as of this encounter
--- OUTSIDE RECORDS SUMMARY | 2025-07-12 12:16 | XMS_ITS | Encounter Summary ---
Author Organization [email or web address] Sys tem Address [facility]-[id number] [address] [place] [address] Care Team Providers Care Manager Account Management Name Role Phone Jesenia Peng HOME CARE NURSE-MOTOR VEHICLE EXAMINER Primary Care Provider Encounter Details Date Type Department Care Team (Late st Contact Info) Description 12/02/2022 Telephone [facility] [address] [place] [address] Anamaria Perkins CMA Social History Tobacco Use [...] Telephone Encounter - Anamaria Perkins CMA - 12/02/2022 10:00 AM EST Has head.congestion and bronchials feel a little congested when she gets up and at night, during the day she feels fine. Would like a refill of her Albuterol inhaler. Bart/Beckie. * Telephone Encounter - CIARRA Osei - 12/02/2022 10:00 AM EST Albuterol sent to [facility] in [place] documented in this encounter Plan of Treatment Upcoming Encounters Date Type Department Care Team (Late st Contact Info) Description 07/20/2025 10:45 AM EDT Office Visit [facility], Department of [address] [place] [phone] Cliff Greenfield MD [address] [place] [address], [address] [place] [address] 08/01/2025 2:00 PM EDT Office Visit [facility] Neurology, A Department of [address] 101, 102, 103 [place] [address] Trice Stinson MD [address] [place] [address] 101, 102, 103 [place] [address] 08/07/2025 11:00 AM EDT Office Visit [facility] [address] [address] Isidro Woodall DO [address] [address] 08/07/2025 11:00 AM EDT Appointment [facility] Radiology [address] [place] [address] 08/21/2025 2:30 PM EDT Appointment [facility] Radiology [address] [place] [address] 08/22/2025 2:30 PM EDT Office Visit [facility] [address] [facility] 170 [place] [address] Isidro Woodall, DO 28[address] [facility] 170 [place] [address] 08/23/2025 1:30 PM EDT Office Visit [facility] [address] [facility] 170 [place] [address] Jesenia Peng, HOME CARE NURSE-MOTOR VEHICLE EXAMINER [address] [facility], [address] [place] [address] 09/26/2025 1:30 PM EST Office Visit [facility], A Department of [address] [phone] Neli Clemente MD MPH [address] [place] [phone] 10/13/2025 11:45 AM EST Office Visit [facility] Cardiology [address] [place] [address] 202 [place] [address] Duong Johnson, DO [address] [place] [address], 202 [place] [address] 10/13/2025 3:15 PM EST Office Visit [facility], A Department of [address] [phone] Ines Uribe, PA-C [address] [place] [address], 103 [place] [address] 11/14/2025 12:20 PM EST Office Visit [facility] [address] [facility] [address] [place] [address] Ofelia Pierce V HOME CARE NURSE-MOTOR VEHICLE EXAMINER 2865 [facility] [address] [place] [address] 11/21/2025 12:30 PM EST Appointment [facility] [place] - Mammography [address] [place] [address] documented as of this encounter Goals Goal [...] documented as of this encounter Care Teams Manager Account Management Relationship Specialty Start Date End Date Jesenia Peng, HOME CARE NURSE-MOTOR VEHICLE EXAMINER [facility]5 [facility], [address] [place] [address] PCP - General 03/19/15 documented as of this encounter
--- OUTSIDE RECORDS SUMMARY | 2025-07-12 12:16 | XMS_ITS | Encounter Summary ---
Author Organization [facility] [employer] Sy tem Address [facility]-[id number] [address] [place] [address] Care Team Providers Care Librarian Assistant Name Role Phone Jesenia Peng INTERIOR PANELER-SPECIAL EDUCATION ASSOCIATE Primary Care Provider Encounter Details Date Type Department Care Team (Late st Contact Info) Description 09/10/2022 Orders Only [facility] [address] [place] [address] Jaja Sanabria MA Social History Tobacco Use [...] EDT Office Visit [facility], A Department of [address] [place] [address] Cliff Greenfield MD [address] [facility], [address] [place] [address] 08/01/2025 2:00 PM EDT Office Visit [facility] Neurology, A Department of [address], [address], [address] [place] [address] Trice Stinson MD [address] [place] [address] 101, 102, 103 [place] [address] 08/07/2025 11:00 AM EDT Office Visit [facility] [address] [facility] [address] [place] [address] Isidro Woodall, DO [address] [facility] 170 [place] [address] 08/07/2025 11:00 AM EDT Appointment [facility] Radiology [address] [place] [address] 08/21/2025 2:30 PM EDT Appointment [facility] [address] [place] [address] 08/22/2025 2:30 PM EDT Office Visit [facility] [address] [facility] [address] [place] [address] Isidro Woodall, DO [address] [facility] 170 [place] [address] 08/23/2025 1:30 PM EDT Office Visit [facility] [address] [facility] [address] [place] [address] Jesenia Peng, INTERIOR PANELER-SPECIAL EDUCATION ASSOCIATE [address], [address] [place] [address] 09/26/2025 1:30 PM EST [facility], A Department of [address] 202 [place] [address] Neli Clemente MD MPH [address] [place] [address] 202 [place] [address] 10/13/2025 11:45 AM EST Office Visit [facility] Cardiology [address] [place] [address] 202 [place] [address] Duong Johnson, DO [address] [place] [address], [address] [place] [address] 10/13/2025 3:15 PM EST Office Visit [facility], A Department of [address] 103 [place] [address] Ines Uribe, SOPHY-C [address] [place] [address], [address] [place] [address] 11/14/2025 12:20 PM EST Office Visit [facility] [address] [facility] [address] [place] [address] Ofelia Pierce V, INTERIOR PANELER-SPECIAL EDUCATION ASSOCIATE 2865 [facility] [address] [place] [address] 11/21/2025 12:30 PM EST Appointment [facility] [address] [place] [address] documented as of this encounter Goals Goal [...] documented as of this encounter Care Teams Librarian Assistant Relationship Specialty Start Date End Date Jesenia Peng APRN-SPECIAL EDUCATION ASSOCIATE [address] [place] [address], 170 [place] [address] PCP - General 03/19/15 documented as of this encounter
--- OUTSIDE RECORDS SUMMARY | 2025-07-12 12:16 | XMS_ITS | Encounter Summary ---
Author Organization [facility] tem Address [facility]-[id number] [address] [place] [address] Care Team Providers Care Publications Writer Name Role Phone Jesenia Peng ASSISTANT CASINO SHIFT MANAGER-AGRONOMIST Primary Care Provider Encounter Details Date Type Department Care Team (Late Contact Info) Description 10/10/2021 Orders Only [facility] [address] [facility] 170 [place] [address] Ref Prov, [place] [address] Social History Tobacco Use Types Packs/Day Years [...] [facility], A Department of [address] 103 [place] [address] Cliff Greenfield MD 5700 [facility], [address] [place] [address] 08/01/2025 2:00 PM EDT Office Visit [facility], [facility] [address] 101, 102, 103 [place] [address] Trice Stinson MD [address] [place] [address] [address] 101, 102, 103 [place] [address] 08/07/2025 11:00 AM EDT Office Visit [facility] [address] [facility] 170 [place] [address] Isidro Woodall, DO [address] [facility] 170 [place] [address] 08/07/2025 11:00 AM EDT Appointment [facility] Radiology [address] [place] [address] 08/21/2025 2:30 PM EDT Appointment [facility] Radiology [address] [place] [address] 08/22/2025 2:30 PM EDT Office Visit [facility] [address] [facility] 170 [place] [address] Isidro Woodall, DO [address] [facility] 170 [place] [address] 08/23/2025 1:30 PM EDT Office Visit [facility] [address] [facility] 170 [place] [address] Jesenia Peng, ASSISTANT CASINO SHIFT MANAGER-AGRONOMIST [address] [facility], [address] [place] [address] 09/26/2025 1:30 PM EST [facility] Rhe[facility], A Department of [address] 202 [place] [address] Neli Clemente MD MPH [address] [place] [address] 202 [place] [address] 10/13/2025 11:45 AM EST Office Visit [facility] Cardiology [address] [place] [address] 202 [place] [address] Duong Johnson, [address] [place] [address], [address] [place] [address] 10/13/2025 3:15 PM EST Office Visit [facility] Dig[facility]ive Health Care, A Department of [address] [place] [address] Ines Uribe, ALEXC [address] [place] [address], [address] [place] [address] 11/14/2025 12:20 PM EST Office Visit [facility] [address] [facility] 170 [place] [address] Ofelia Pierce V, ASSISTANT CASINO SHIFT MANAGER-AGRONOMIST [address] [facility] [address] [place] [address] 11/21/2025 12:30 PM EST Appointment [facility] [place] - Mammography [address] [place] [address] documented as of this encounter Procedures Procedure Name Priority Date/Time Associated Diagnosis Comments DEXA SCAN Routine 09/12/2021 documented in this encounter Results * HM DEXA SCAN (09/12/2021) Anatomical Region Laterality Modality Other us Not In System Ref Prov HEALTH MAINTENANCE Final Result documented in this encounter Visit Diagnoses Not [...] documented as of this encounter Care Teams Publications Writer Relationship Specialty Start Date End Date Jesenia Peng APRN-JONEL [address] [place] [address], [address] [place] [address] PCP - General 03/19/15 documented as of this encounter
--- OUTSIDE RECORDS SUMMARY | 2025-07-12 12:16 | XMS_ITS | Encounter Summary ---
Author Organization [email or web address] Sys tem Address [facility]-[id number] [address] [place] [address] Care Team Providers Care Sugar House Supervisor Name Role Phone Jesenia Peng GLASS MOULD CLEANER-SUPERVISOR ESTIMATOR AND DRAFTER Primary Care Provider Reason for Visit * Reason Comments Med Refill Encounter Details Date Type Department Care Team (Late Contact Info) Description 07/14/2023 Refill [facility] Cardiology [address] [place] [address] Jacky Martinez, GLASS MOULD [facility] [address] [place], [place] [phone] Med Refill Social History Tobacco Use Types Packs/Day Years Used Date Smoking Tobacco: Former Cigarettes Q uit: 2018 Smokeless Tobacco: Never Alcohol Use Standard Drinks/Week Comments Yes 1 (1 standard drink = 0.6 oz pur e alcohol) daily PHQ-2 Answer Date Recorded Total Score 5 01/21/2023 Childcare Answer Date Recorded Childcare Unknown 04/11/2019 [...] Description 07/20/2025 10:45 AM EDT Office Visit [facility], A Department of [facility] [address] [place] [address] [address] [place] [address] Cliff Greenfield MD 57[address] [facility], [address] [place] [address] 08/01/2025 2:00 PM EDT Office Visit [facility] Neurology, A Department of [address] 101, 102, 103 [place] [address] Trice Stinson MD [address] [place] [address] 101, 102, 103 [place] [address] 08/07/2025 11:00 AM EDT Office Visit [facility] [address] [facility] 170 [place] [address] Isidro Woodall, DO 2865 [facility] 170 [place] [address] 08/07/2025 11:00 AM EDT Appointment [facility] Radiology [address] [place] [address] 08/21/2025 2:30 PM EDT Appointment [facility] [address] [place] [address] 08/22/2025 2:30 PM EDT Office Visit [facility] [address] [facility] 170 [place] [address] Isidro Woodall, DO 2865 [facility] 170 [place] [address] 08/23/2025 1:30 PM EDT Office Visit [facility] [address] [facility] 170 [place] [address] Jesenia Peng, GLASS MOULD CLEANER-SUPERVISOR ESTIMATOR AND DRAFTER [address] [facility], [address] [place] [address] 09/26/2025 1:30 PM EST Office Visit [facility], A Department of [address] 202 [place] [address] Neli Clemente MD MPH [address] [place] [address] 202 [place] [address] 10/13/2025 11:45 AM EST Office Visit [facility] Cardiology [address] [place] [phone] Duong Johnson, DO [address] [place] [address], [address] [place] [address] 10/13/2025 3:15 PM EST [facility], A Department of [address] [place] [address] Ines Uribe, PA-C [address] [place] [address], [address] [address] 11/14/2025 12:20 PM EST Office Visit [facility] [address] [phone] Ofelia Pierce V, GLASS MOULD CLEANER-SUPERVISOR ESTIMATOR AND DRAFTER [address] [facility] [place] [address] 11/21/2025 12:30 PM EST Appointment [facility] [place] - Mammography [address] [place] [address] documented as of this encounter Goals Goal [...] Assessment Noted Time PHQ-9 Depression Total Score: 5 01/22/20 23 12:04 PM EDT A Body Mass Index follow-up plan has been documented for the patient 01/21/2023 2:36 PM EDT documented as of this encounter Care Teams Sugar House Supervisor Relationship Specialty Start Date End Date Jesenia Peng APRN-SUPERVISOR ESTIMATOR AND DRAFTER [address] [place] [address], [address] [place] [address] PCP - General 03/19/15 documented as of this encounter
--- OUTSIDE RECORDS SUMMARY | 2025-07-12 12:16 | XMS_ITS | Encounter Summary ---
Author Organization [facility] [employer] Sys tem Address [facility]-[id number] [address] [place] [address] Care Team Providers Care Meter Repairer Name Role Phone Jesenia Peng SHEEP CLIPPER-BOWLING OR SKATING FRONT DESK CLERK Primary Care Provider Reason for Visit * Reason Onset Date Comments pain score and dot phrase documentation 01/05/20 Encounter Details Date Type Department Care Team (Late st Contact Info) Description 01/05/2025 Telephone [facility] [address] [place] [address] Paulette Owens CMA pain score and dot phrase documentation Social History Tobacco Use Types Packs/Day Years [...] encounter Miscellaneous Notes * Telephone Encounter - Paulette Owens CMA - 01/05/2025 8:52 AM EST Received injection order for BL C3-4 TFESI. This is pt's first Cervical TFESI injection which meanspain level must be above a certain level in order for authorization to be considered. Please contact patient and get more detailed pain level and be sure to document it in office visit or in this telephone encounter. Also please complete a dot phrase for this as well. * Telephone Encounter - CARLOS Davis - 01/05/2025 8:52 AM EST Previous Evaluation and Treatment Diagnostics: X-ray and MRI Medications tried: OTC, NSAIDS, Muscle Relaxants, and Narcotics Home Exercise Program: Guided by physician Physical Therapy: daily hep and stretches Basic Acoustic Analyst: no Pain Management: new patient Prior Surgery: None Pain Score: 8/10 * Telephone Encounter - Peyton Van - 01/05/2025 8:52 AM EST Patient scheduled. documented in this encounter Plan of Treatment Upcoming Encounters Date Type Department Care Team (Late st Contact Info) Description 07/20/2025 10:45 AM EDT Office Visit [facility] Care, A Department of [address] [place] [address] Cliff Greenfield MD [address] [place] [address], [address] [place] [address] 08/01/2025 2:00 PM EDT Office Visit [facility] Neurology, A Department of [address] 101, 102, 103 [place] [address] Trice Stinson MD [address] [facility] 101, 102, 103 [place] [address] 08/07/2025 11:00 AM EDT Office Visit [facility] [address] [address] Isidro Woodall, DO [address] [address] 08/07/2025 11:00 AM EDT Appointment [facility] Radiology [address]65 [place] [address] 08/21/2025 2:30 PM EDT Appointment [facility] [address] [place] [address] 08/22/2025 2:30 PM EDT Office Visit [facility] [address] [address] Isidro Woodall, DO [address] [address] 08/23/2025 1:30 PM EDT Office Visit [facility] [address] [address] Jesenia Peng, SHEEP CLIPPER-BOWLING OR SKATING FRONT DESK CLERK 2865 [facility], 170 [place] [address] 09/26/2025 1:30 PM EST Office Visit [facility], A Department of [address] [address] Neli Clemente MD [facility] [address] [place] [address] 10/13/2025 11:45 AM EST Office Visit [facility] Cardiology [address] [facility] 202 [place] [address] Duong Johnson DO 10[address] [facility], [address] [place] [address] 10/13/2025 3:15 PM EST Office Visit [facility], A Department of [address] [place] [address] Ines Uribe PA-C [address] [place] [address], [address] [place] [address] 11/14/2025 12:20 PM EST Office Visit [facility] [address] [place] [address] Ofelia Pierce V, SHEEP CLIPPER-BOWLING OR SKATING FRONT DESK CLERK [address] [place] [address] 11/21/2025 12:30 PM EST Appointment [facility] [place] [facility] [address] [place] [address] documented as of this encounter Goals Goal [...] documented as of this encounter Care Teams Meter Repairer Relationship Specialty Start Date End Date Jesenia Peng, SHEEP CLIPPER-BOWLING OR SKATING FRONT DESK CLERK [address] [facility], [address] [place] [address] PCP - General 03/19/15 documented as of this encounter
--- OUTSIDE RECORDS SUMMARY | 2025-07-12 12:16 | XMS_ITS | Encounter Summary ---
Author Organization [facility] tem Address [facility]-[id number] [address] [place] [address] Care Team Providers Care Jewelry Making Instructor Name Role Phone Jesenia Peng LODGING FACILITIES MANAGER-QUILL WORKER Primary Care Provider Reason for Visit * Reason Comments Med Refill Encounter Details Date Type Department Care Team (Late Contact Info) Description 04/10/2018 Refill [facility] [address] [facility] [address] [place] [phone] Franky Vazquez, DO [address] [facility], [address] [place] [address] Social History Tobacco Use Types Packs/Day Years [...] Description 07/20/2025 10:45 AM EDT Office Visit [facility], A Department of [address] [phone] Cliff Greenfield MD [address] [place] [address], [address] [place] [address] 08/01/2025 2:00 PM EDT Office Visit [facility], A Department of [facility] [address] [place] [address] 101, 102, [address] [place] [address] [place] [address] [place] [address] 101, 102, 103 [place] [address] 08/07/2025 11:00 AM EDT Office Visit [facility] [address] [facility] 170 [place] [address] Isidro Woodall, DO [address]60 [address] [facility] 170 [place] [address] 08/07/2025 11:00 AM EDT Appointment [facility] [address] [place] [address] 08/21/2025 2:30 PM EDT Appointment [facility] [address] [place] [address] 08/22/2025 2:30 PM EDT Office Visit [facility] [address] [facility] [address] [place] [address] Isidro Woodall, DO [address] [facility] 170 [place] [address] 08/23/2025 1:30 PM EDT Office Visit [facility] [address] [facility] 170 [place] [address] Jesenia Peng, LODGING FACILITIES MANAGER-QUILL WORKER [address] [facility], [address] [place] [address] 09/26/2025 1:30 PM EST Office Visit [facility], A Department of [address] [place] [address] Neli Clemente MD MPH [address] [place] [address] 202 [place] [address] 10/13/2025 11:45 AM EST Office Visit [facility] Cardiology [address] [place] [address] 202 [place] [address] Duong Johnson, 10[address] [facility], [address] [place] [address] 10/13/2025 3:15 PM EST [facility], A Department of [address] [place] [address] Ines Uribe, PA-C [address] [place] [address], [address] [place] [address] 11/14/2025 12:20 PM EST Office Visit [facility] [address] [place] [address] Ofelia Pierce V, LODGING FACILITIES MANAGER-QUILL WORKER [address] [facility] [address] [place] [address] 11/21/2025 12:30 PM EST Appointment [facility] [place] - Mammography [address] [place] [address] documented as of this encounter Visit Diagnoses Not on filedocumented in this encounter Additional Health Concerns Infection Onset Date Last Indicated Resolved Time COVID-19 Rule-Out 06/27/2025 06/27/2025 06/27/2025 2:03 PM EDT Assessment Noted Time PHQ-9 Depression Total Score: 0 03/11/20 9:00 AM EDT A Body Mass Index follow-up plan has been documented for the patient 03/09/2017 3:21 PM EDT documented as of this encounter Care Teams Jewelry Making Instructor Relationship Specialty Start Date End Date Jesenia Peng, LODGING FACILITIES MANAGER-QUILL WORKER [facility], [address] [place] [address] PCP - General 03/19/15 documented as of this encounter
--- OUTSIDE RECORDS SUMMARY | 2025-07-12 12:16 | XMS_ITS | Encounter Summary ---
Author Organization [facility] [employer] tem Address [facility] [id number] [address] [place] [address] Care Team Providers Care Telephone Supervisor Name Role Phone Jesenia Peng FORESTRY WORKER-LEGAL INTERNSHIP Primary Care Provider Reason for Visit * Reason Onset Date Comments Med Refill 10/20/2019 Encounter Details Date Type Department Care Team (Late st Contact Info) Description 10/20/2019 Refill [facility] Physicians Physical Medicine and Rehabilitation [address] [facility] 170 [place] [address] Adam Noland CMA Chronic right shoulder pain Social History Tobacco Use Types Packs/Day [...] Visit [facility], A Department of [address] [place] [phone] Cliff Greenfield MD [address] [facility], [address] [place] [address] 08/01/2025 2:00 PM EDT Office Visit [facility], [facility] Department of [facility] [address] 101, 102, 103 [place] [address] Trice Stinson MD [address] [place] [address] VIJI 101, 102, 103 [place] [address] 08/07/2025 11:00 AM EDT Office Visit [facility] Physical Medicine and Rehabilitation [address] [facility] [address] [place] [address] Isidro Woodall, DO [address] [facility] [address] [place] [address] 08/07/2025 11:00 AM EDT Appointment [facility] Radiology [address] [place] [address] 08/21/2025 2:30 PM EDT Appointment [facility] [address] [place] [address] 08/22/2025 2:30 PM EDT Office Visit [facility] Physical Medicine and Rehabilitation [address] [facility] [address] [place] [address] Isidro Woodall, DO [address] [facility] [address] [place] [address] 08/23/2025 1:30 PM EDT Office Visit [facility] [address] [facility] [address] [place] [address] Jesenia Peng, FORESTRY WORKER-LEGAL INTERNSHIP [address] [facility], [address] [place] [address] 09/26/2025 1:30 PM EST Office Visit [facility], A Department of [address] [place] [address] Neli Clemente MD MPH [address] [place] [address] 202 [place] [address] 10/13/2025 11:45 AM EST Office Visit [facility] Cardiology [address] [place] [address] 202 [place] [address] Duong Johnson, DO [address] [facility], [address] [place] [address] 10/13/2025 3:15 PM EST Office Visit [facility] Care, A Department of [address] [place] [phone] Ines Uribe PA-C [address] [place] [address], [address] [place] [address] 11/14/2025 12:20 PM EST Office Visit [facility] Physical Medicine and Rehabilitation [address] [facility] [address] [place] [phone] Ofelia Pierce V, FORESTRY WORKER-LEGAL INTERNSHIP [address] [facility] [address] [place] [address] 11/21/2025 12:30 PM EST Appointment [facility] - Mammography [address] [place] [address] documented as of this encounter Visit Diagnoses Diagnosis Chronic right shoulder pain Pain in joint, shoulder region documented in this encounter Additional Health Concerns Infection Onset Date Last Indicated Resolved Time COVID-19 Rule-Out 06/27/2025 06/27/2025 06/27/2025 2:03 PM EDT Assessment Noted Time PHQ-9 Depression Total Score: 0 03/14/20 9:00 AM EDT A Body Mass Index follow-up plan has been documented for the patient 09/15/2019 12:29 PM EST documented as of this encounter Care Teams Telephone Supervisor Relationship Specialty Start Date End Date Jesenia Peng APRN-JONEL [address] [place] [address], [address] [place] [address] PCP - General 03/19/15 documented as of this encounter
--- OUTSIDE RECORDS SUMMARY | 2025-07-12 12:16 | XMS_ITS | Encounter Summary ---
Author Organization [facility] tem Address [facility] [id number] [address] [place] [address] Care Team Providers Care Conditioning Coach Name Role Phone Jesenia Peng PAVER LAYER-SUPERVISOR PAINTING DEPARTMENT Primary Care Provider Encounter Details Date Type Department Care Team (Late Contact Info) Description 09/16/2021 Orders Only [facility] [address] [facility] [address] [place] [address] Anamaria Perkins CMA Encounter for screening mammogram [...] Description 07/20/2025 10:45 AM EDT Office Visit [facility], A Department of [address] [place] [address] Cliff Greenfield MD [address] [facility], [address] [place] [address] 08/01/2025 2:00 PM EDT Office Visit [facility], A Department of [facility] [address] [place] 101, 102, [address] [place] [address] Trice Stinson MD [address] [place] [address] VIJI 101, 102, 103 [place] [address] 08/07/2025 11:00 AM EDT Office Visit [facility] Physical Medicine and Rehabilitation [address] [facility] [address] [place] [address] Isidro Woodall, DO [address] [facility] 170 [place] [address] 08/07/2025 11:00 AM EDT Appointment [facility] Radiology [address] [place] [address] 08/21/2025 2:30 PM EDT Appointment [facility] [address] [place] [address] 08/22/2025 2:30 PM EDT Office Visit [facility] Physical Medicine and Rehabilitation [address] [facility] [address] [place] [address] Isidro Woodall, DO [address] [facility] 170 [place] [address] 08/23/2025 1:30 PM EDT Office Visit [facility] [address] [facility] [address] [place] [address] Jesenia Peng, PAVER LAYER-SUPERVISOR PAINTING DEPARTMENT [address] [facility], [address] [place] [address] 09/26/2025 1:30 PM EST [facility] Visit [facility], A Department of [address] [place] [address] Neli Clemente MD MPH [address] [place] [address] 202 [place] [address] 10/13/2025 11:45 AM EST Office Visit [facility] Cardiology [address] [place] [address] 202 [place] [address] Duong Jhonson, [address] [place] [address], [address] [place] [address] 10/13/2025 3:15 PM EST Office Visit [facility], A Department of [address] [place] [address] Ines Uribe PA-C [address] [place] [address], [address] [place] [address] 11/14/2025 12:20 PM EST Office Visit [facility] Physical Medicine and Rehabilitation [address] [facility] 170 [place] [address] Ofelia Pierce V, PAVER LAYER-SUPERVISOR PAINTING DEPARTMENT [address] [facility] [address] [place] [address] 11/21/2025 12:30 PM EST Appointment [facility] [place] - Mammography [address] [place] [address] documented as of this encounter Procedures Procedure Name Priority Date/Time Associated Diagnosis Comments MAMM SCREENING BILATERAL W CAD Routine 09/12/2021 Encounter for screening mammogram for malignant neoplasm of breast documented in this encounter Results * Mammography screening bilateral with CAD (09/12/2021) Anatomical Region Laterality Modality Breast Bilateral Mammography 09/12/2021 us Jesenia [facility] IMG MAMMOGRAPHY ORDERAB LES Edited Result - Final documented in this encounter Visit Diagnoses Diagnosis [...] documented as of this encounter Care Teams Conditioning Coach Relationship Specialty Start Date End Date Jesenia Peng APRN-CNP [address] [place] [address], 170 [place] [address] PCP - General 03/19/15 documented as of this encounter
--- OUTSIDE RECORDS SUMMARY | 2025-07-12 12:16 | XMS_ITS | Encounter Summary ---
Author Organization [facility] tem Address [facility] [id number] [address] [place] [address] Care Team Providers Care Machine Fastener Name Role Phone Jesenia Peng STEFFEN HOUSE SUPERVISOR-SAFE AND VAULT SERVICE MECHANIC Primary Care Provider Encounter Details Date Type Department Care Team (Late Contact Info) Description 11/05/2022 Orders Only [facility] [address] [facility] 170 [place] [address] Jaja Sanabria MA Primary hypertension (Primary Dx); Mixed hyperlipidemia Social History Tobacco Use Types [...] Description 07/20/2025 10:45 AM EDT Office Visit [facility], A Department of [address] [place] [address] Cliff Greenfield MD [address] [facility], [address] [place] [address] 08/01/2025 2:00 PM EDT Office Visit [facility], A Department of [facility] [address] 101, 102, 103 [place] [address] Trice Stinson MD [address] [place] [address] 101, 102, 103 [place] [address] 08/07/2025 11:00 AM EDT Office Visit [facility] Physical Medicine and Rehabilitation [address] [facility] [address] [place] [address] Isidro Woodall, DO [address] [facility] 170 [place] [address] 08/07/2025 11:00 AM EDT Appointment [facility] Rad[facility] [address] [place] [address] 08/21/2025 2:30 PM EDT Appointment [facility] [address] [place] [address] 08/22/2025 2:30 PM EDT Office Visit [facility] Medicine [facility] Rehabilitation [address] [facility] [address] [place] [address] Isidro Woodall, DO [address] [facility] [address] [place] [address] 08/23/2025 1:30 PM EDT Office Visit [facility] [address] [facility] [address] [place] [address] Jesenia Peng, STEFFEN HOUSE SUPERVISOR-SAFE AND VAULT SERVICE MECHANIC [address] [facility], [address] [place] [address] 09/26/2025 1:30 PM EST Office Visit [facility] Rhe[facility], A Department of [address] [place] [address] Neli Clemente MD MPH [address] [facility] 202 [place] [address] 10/13/2025 11:45 AM EST Office Visit [facility] Cardiology [address] [place] [address] 202 [place] [address] Duong Johnson, [address] [facility], [address] [place] [address] 10/13/2025 3:15 PM EST Office Visit [facility], A Department of [address] [place] [address] Ines Uribe, ALEXC [address] [place] [address], [address] [place] [address] 11/14/2025 12:20 PM EST Office Visit [facility] Physical Medicine and Rehabilitation [address] [facility] [facility] 170 [place] [address] Ofelia Pierce V, STEFFEN HOUSE SUPERVISOR-SAFE AND VAULT SERVICE MECHANIC [address] [facility] [address] [place] [address] 11/21/2025 12:30 PM EST Appointment [facility] [place] - Mammography [address] [place] [address] documented as of this encounter Goals Goal Patient Goal Type Associated Problems Recent Progress Patient-Stated? Author Discharge with home care General Yes Carmen Yañez, RN Note: Evaluation of progress towards goal: Discharge home with [facility] documented as of this encounter Results * Urinalysis (11/25/2022) 11/25/2022 Jesenia Yogesh Danish STEFFEN HOUSE SUPERVISOR-SAFE AND VAULT SERVICE MECHANIC URINE ORDERABLES Final Result Performing Organization Address [facility] Co de Phone Number [facility] * Lipid profile (11/25/2022) External Cholesterol 250 <200 [facility] External Cholesterol:Hdl 3.0 <4.44 [facility] External Hdl Cholesterol 84 >39 [facility] External Ldl (Calc) 153 <100 [facility] External Triglycerides 63 <149 [facility] External Very Low Lipoprotein 13 <30 [facility] 11/25/2022 Jesenia L Lent STEFFEN HOUSE SUPERVISOR-SAFE AND VAULT SERVICE MECHANIC LAB BLOOD ORDERABLES Fi nal Result Performing Organization Address [facility] Co de Phone Number [facility] * Comprehensive metabolic panel (11/25/2022) 11/25/2022 Jesenialinsey Peng STEFFEN HOUSE SUPERVISOR-SAFE AND VAULT SERVICE MECHANIC LAB BLOOD ORDERABLES Fi nal Result Performing Organization Address [facility] de Phone Number [facility] * CBC auto differential (11/25/2022) 11/25/2022 Jesenia Yogesh Danish STEFFEN HOUSE SUPERVISOR-SAFE AND VAULT SERVICE MECHANIC LAB BLOOD ORDERABLES Fi nal Result Performing Organization Address [facility] Co de Phone Number [facility] documented in this encounter Visit Diagnoses Diagnosis Primary hypertension- Primary Unspecified essential hypertension Mixed hyperlipidemia documented in this encounter Additional Health Concerns Infection Onset Date Last Indicated Resolved Time COVID-19 Rule-Out 06/27/2025 06/27/2025 06/27/2025 2:03 PM EDT Assessment Noted Time PHQ-9 Depression Total Score: 9 07/23/20 22 11:00 AM EDT A Body Mass Index follow-up plan has been documented for the patient 07/24/2022 9:57 AM EDT documented as of this encounter Care Teams Machine Fastener Relationship Specialty Start Date End Date Jesenia Peng, STEFFEN HOUSE SUPERVISOR-SAFE AND VAULT SERVICE MECHANIC [address] [facility], [address] [place] [address] PCP - General 03/19/15 documented as of this encounter
--- OUTSIDE RECORDS SUMMARY | 2025-07-12 12:16 | XMS_ITS | Encounter Summary ---
Author Organization [employer] Address [facility] [place][id number] [address] [place] [address] Care Team Providers Care Marshmallow Machine Operator Name Role Phone Jesenia Peng MOVIE THEATER MANAGER-SALESPERSON HOUSEHOLD APPLIANCES Primary Care Provider Reason for Visit * Reason Comments Med Refill Encounter Details Date Type Department Care Team (Late Contact Info) Description 05/17/2023 Refill [facility] [address] [place] [phone] Ty Branham MD [address] [place] [address], [facility] 101, 102, [address] [place], [place] [phone] Parkinson's disease ([facility]); Insomnia due to medical condition Social History [...] Visit [facility], A Department of [address] [place] [address] [place] [address] [place] [address], [address] [place] [address] 08/01/2025 2:00 PM EDT Office Visit [facility] Neurology, A Department of [address] 101, 102, [address] [place] [address] Trice Stinson MD [address] [place] [address] 101, 102, 103 [place] [address] 08/07/2025 11:00 AM EDT Office Visit [facility] Physical Medicine and Rehabilitation [address] [facility] [address] [place] [address] Isidro Woodall, DO [address] [facility] 170 [place] [address] 08/07/2025 11:00 AM EDT Appointment [facility] [address] [place] [address] 08/21/2025 2:30 PM EDT Appointment [facility] [address] [place] [address] 08/22/2025 2:30 PM EDT Office Visit [facility] Rehabilitation [address] [facility] [address] [place] [address] Isidro Woodall, DO [address] [facility] 170 [place] [address] 08/23/2025 1:30 PM EDT Office Visit [facility] [address] [facility] [address] [place] [address] Jesenia Peng, MOVIE THEATER MANAGER-SALESPERSON HOUSEHOLD APPLIANCES [address] [facility], [address] [place] [address] 09/26/2025 1:30 PM EST Office Visit [facility] Rheumatology, A Department of [address] [place] [address] Neli Clemente MD MPH [address] [place] [address] 202 [place] [address] 10/13/2025 11:45 AM EST Office Visit [facility] Cardiology [address] [place] [address] 202 [place] [address] Duong Johnson, DO [address] [place] [address], [address] [place] [address] 10/13/2025 3:15 PM EST Office Visit [facility] Care, A Department of [address] [place] [address] Ines Uribe PA-C [address] [place] [address], [address] [place] [address] 11/14/2025 12:20 PM EST Office Visit [facility] Physical Medicine and Rehabilitation [address] [facility] [address] [place] [address] Ofelia Pierce V, MOVIE THEATER MANAGER-SALESPERSON HOUSEHOLD APPLIANCES [address] [facility] [address] [place] [address] 11/21/2025 12:30 PM EST Appointment [facility] [place] [facility] [address] [place] [address] documented as of this encounter Goals Goal [...] documented as of this encounter Care Teams Marshmallow Machine Operator Relationship Specialty Start Date End Date Jesenia Peng APRN-JONEL [address] [place] [address], [address] [place] [address] PCP - General 03/19/15 documented as of this encounter
--- OUTSIDE RECORDS SUMMARY | 2025-07-12 12:16 | XMS_ITS | Encounter Summary ---
Author Organization [facility] tem Address [facility] [id number] [address] [place] [address] Care Team Providers Care School Psychological Examiner Name Role Phone Jesenia Peng WARDROBE ATTENDANT-FABRIC FINISHER Primary Care Provider Reason for Visit * Reason Onset Date Comments Med Refill 10/14/2016 Encounter Details Date Type Department Care Team (Late st Contact Info) Description 10/14/2016 Refill [facility] [address] [facility] 170 [place] [address] Valentine Ovalles RMA Social History Tobacco Use Types Packs/Day Years Used Date Smoking Tobacco: Never Smokeless Tobacco: Never Alcohol Use Standard Drinks/Week Comments Yes 0 (1 standard drink = 0.6 oz pur e alcohol) Comments Unknown Sex and Gender Information Value Date Recorded Sex Assigned at Not on file Legal Sex Female 7:50 PM EDT Gender Identity Not on file Sexual Orientation Not on file documented as of this encounter Plan of Treatment Upcoming Encounters Date Type Department Care Team (Late Contact Info) Description 07/20/2025 10:45 AM EDT Office Visit [facility], A Department of [address] [place] [address] Cliff Greenfield MD [address] [place] [address], [address] [place] [address] 08/01/2025 2:00 PM EDT Office Visit [facility], A Department of [facility] [address] [facility] 101, 102, [address] [place] [address] Trice Stinson MD 2[address] [facility] 101, 102, 103 [place] [address] 08/07/2025 11:00 AM EDT Office Visit [facility] [address] [facility] [address] [place] [address] Isidro Woodall, DO [address] [facility] 170 [place] [address] 08/07/2025 11:00 AM EDT Appointment [facility] [address] [place] [address] 08/21/2025 2:30 PM EDT Appointment [facility] [address] [place] [address] 08/22/2025 2:30 PM EDT Office Visit [facility] Rehabilitation [address] [facility] [address] [place] [address] Isidro Woodall, DO [address] [facility] [address] [place] [address] 08/23/2025 1:30 PM EDT Office Visit [facility] [address] [facility] [address] [place] [address] Jesenia Peng, WARDROBE ATTENDANT-FABRIC FINISHER [address] [facility], [address] [place] [address] 09/26/2025 1:30 PM EST Office Visit [facility], A Department of [facility] [address] [place] [address] Neli Clemente MD MPH [address] [facility] 202 [place] [address] 10/13/2025 11:45 AM EST Office Visit [facility] Cardiology [address] [place] [address] 202 [place] [address] Duong Johnson DO [address] [facility], [address] [place] [address] 10/13/2025 3:15 PM EST Office Visit [facility], A Department of [facility] [address] [place] [address] 103 [place] [address] Ines Uribe PA-C 57[address] [facility], [address] [place], [place] [address] 11/14/2025 12:20 PM EST Office Visit [facility] [address] [facility] [address] [place] [address] Ofelia Pierce V, WARDROBE ATTENDANT-FABRIC FINISHER [address] [facility] [address] [place] [address] 11/21/2025 12:30 PM EST Appointment [facility] [place] - Mammography [address] [place] [address] documented as of this encounter Visit Diagnoses Not on filedocumented in this encounter Additional Health Concerns Infection Onset Date Last Indicated Resolved Time COVID-19 Rule-Out 06/27/2025 06/27/2025 06/27/2025 2:03 PM EDT documented as of this encounter Care Teams School Psychological Examiner Relationship Specialty Start Date End Date Jesenia Peng, WARDROBE ATTENDANT-FABRIC FINISHER [address] [facility], [address] [place] [address] PCP - General 03/19/15 documented as of this encounter
--- OUTSIDE RECORDS SUMMARY | 2025-07-12 12:16 | XMS_ITS | Encounter Summary ---
Author Organization [facility] tem Address [id number] [address] [place] [address] Care Team Providers Care Pie Maker Name Role Phone Jesenia Peng CASTING ASSOCIATE-BUS STARTER Primary Care Provider Encounter Details Date Type Department Care Team (Late st Contact Info) Description 01/07/2022 Orders Only [facility] - ENT [address] [place] [address], [address] [place] [phone] Maryjane Faust, [address] [place] [address], [address] [place] [address] Social History Tobacco Use Types [...] have Coronavirus / COVID-19? No / Unsure 01/09/2022 10:21 AM EST documented as of this encounter Plan of Treatment Upcoming Encounters Date Type Department Care Team (Late st Contact Info) Description 07/20/2025 10:45 AM EDT Office Visit [facility], A Department of [address] [place] [address] [place] [address] [place] [address], [address] [place] [address] 08/01/2025 2:00 PM EDT Office Visit [facility] Neurology, A Department of [address] 101, [address], [address] [place] [address] Trice Stinson MD [address] [place] [address] 101, 102, 103 [place] [address] 08/07/2025 11:00 AM EDT Office Visit [facility] [address] [address] Isidro Woodall DO [address] [address] 08/07/2025 11:00 AM EDT Appointment [facility] Radiology [address] [place] [address] 08/21/2025 2:30 PM EDT Appointment [facility] [address] [place] [address] 08/22/2025 2:30 PM EDT Office Visit [facility] [address] [address] Isidro Woodall, DO [address] [address] 08/23/2025 1:30 PM EDT Office Visit [facility] [address] [facility] [address] [place] [phone] Jesenia Peng, CASTING ASSOCIATE-BUS STARTER [address] [facility], [address] [place] [address] 09/26/2025 1:30 PM EST Office Visit [facility], A Department of [address] [place] [address] Neli Clemente MD MPH [address] [place] [address] 10/13/2025 11:45 AM EST Office Visit [facility] Cardiology [address] [place] [address] [address] [place] [phone] Duong Johnson, DO [address] [place] [address], [address] [place] [address] 10/13/2025 3:15 PM EST Office Visit [facility], A Department of [address] [place] [phone] Ines Uribe, PA-C [address] [place] [address], [address] [place] [address] 11/14/2025 12:20 PM EST Office Visit [facility] [address] [facility] [address] [place] [phone] Ofelia Pierce V, CASTING ASSOCIATE-BUS STARTER [address] [facility] [address] [place] [address] 11/21/2025 12:30 PM EST Appointment [facility] [place] - Mammography [address] [place] [address] documented as of this encounter Procedures Procedure Name Priority Date/Time Associated Diagnosis Comments SURGICAL PATHOLOGY Routine 01/06/2022 documented in this encounter Results * Surgical Pathology (01/06/2022) Maryjane Faust DO PATHOLOGY/CYTOLOGY ORDERABLES Final Result MANUALLY TRANSCRIBED RESULTS documented in [...] documented as of this encounter Care Teams Pie Maker Relationship Specialty Start Date End Date Jesenia Peng APRN-BUS STARTER [address] [place] [address], [address] [place] [address] PCP - General 03/19/15 documented as of this encounter
--- OUTSIDE RECORDS SUMMARY | 2025-07-12 12:16 | XMS_ITS | Encounter Summary ---
Author Organization [facility] Address [facility] [place]-[id number] [address] [place] [address] Care Team Providers Care Clay Transporter Name Role Phone Jesenia Peng DISHWASHER-FAMILY NURSE PRACTITIONER Primary Care Provider Reason for Visit * Reason Onset Date Comments Appointment 04/17/2021 Encounter Details Date Type Department Care Team (Late st Contact Info) Description 04/17/2021 Telephone [facility] Neurology [address] [place] [phone] Padmaja Lindsay Appointment Social History Tobacco Use Types Packs/Day Years Used Date Smoking Tobacco: Former Cigarettes Q uit: 2018 Smokeless Tobacco: Never Alcohol Use Standard Drinks/Week Comments Yes 0 (1 standard drink = 0.6 oz pur e alcohol) PHQ-2 Answer Date Recorded Total Score 0 03/21/2021 Childcare Answer Date Recorded Childcare Unknown 04/11/2019 [...] have Coronavirus / COVID-19? No / Unsure 03/21/2021 9:13 AM EDT documented as of this encounter Miscellaneous Notes * Telephone Encounter - Padmaja Lindsay - 04/17/2021 10:13 AM EDT Patient called and asked to reschedule her appointment with MD iJ on May 27 for a Parkinsons follow up, she will be on vacation with her family. With Dr. Yonas MD being booked for the restof the year she would like to see Elsa Hayes CNP if possible if not Michelle Mo CNP for her follow up appointment. Patient would like to be seen in July or August if possible. Please Advise * Telephone Encounter - Padmaja Lindsay - 04/17/2021 10:13 AM EDT Called patient to reschedule Dr. Branham appointment with Elsa Hayes in July or August. Left avoicemail to call back and reschedule * Telephone Encounter - Evy Greer - 04/17/2021 10:13 AM EDT Patient returned call and scheduled with Elsa on 07/18/21 * Telephone Encounter - Ty Branham MD - 04/17/2021 10:13 AM EDT Noted, thanks documented in this encounter Plan of Treatment Upcoming Encounters Date Type Department Care Team (Late st Contact Info) Description 07/20/2025 10:45 AM EDT Office Visit [facility], A Department of [address] [place] [address] Cliff Greenfield MD [address] [place] [address], [address] [place] [address] 08/01/2025 2:00 PM EDT Office Visit [facility], A Department of [facility] [address] [place] [address] 101, 102, [address] [place] [address] Trice Stinson MD [address] [facility] 101, 102, [address] [place] [address] 08/07/2025 11:00 AM EDT Office Visit [facility] [address] [facility] [address] [place] [address] Isidro Woodall, DO [address] [facility] [address] [place] [address] 08/07/2025 11:00 AM EDT Appointment [facility] Radiology [address] [place] [address] 08/21/2025 2:30 PM EDT Appointment [facility] [address] [place] [address] 08/22/2025 2:30 PM EDT Office Visit [facility] [address] [facility] [address] [place] [address] Isidro Woodall, DO [address] [facility] [address] [place] [address] 08/23/2025 1:30 PM EDT Office Visit [facility] [address] [facility] [address] [place] [address] Jesenia Peng, DISHWASHER-FAMILY NURSE PRACTITIONER [address] [facility], [address] [place] [address] 09/26/2025 1:30 PM EST Office Visit [facility], A Department of [address] [address] Neli Clemente MD MPH [address] [facility] [address] [place] [address] 10/13/2025 11:45 AM EST Office Visit [facility] Cardiology [address] [place] [address] [address] [place] [address] Duong Johnson DO [address] [facility], [address] [place] [address] 10/13/2025 3:15 PM EST [facility], [facility] Department of [address] [place] [address] Ines Uribe PA-C [address] [place] [address], [address] [place] [address] 11/14/2025 12:20 PM EST Office Visit [facility] [address] [facility] [address] [address] [place] [phone] Ofelia Pierce V, DISHWASHER-FAMILY NURSE PRACTITIONER [address] [place] [address] 11/21/2025 12:30 PM EST Appointment [facility] [place] - Mammography [address] [place] [address] documented as of this encounter Visit Diagnoses Not on filedocumented in this encounter Additional Health Concerns Infection Onset Date Last Indicated Resolved Time COVID-19 Rule-Out 06/27/2025 06/27/2025 06/27/2025 2:03 PM EDT Assessment Noted Time PHQ-9 Depression Total Score: 0 03/21/20 2:00 PM EDT A Body Mass Index follow-up plan has been documented for the patient 08/09/2020 7:22 AM EDT documented as of this encounter Care Teams Clay Transporter Relationship Specialty Start Date End Date Jesenia Peng, RADHA-FAMILY NURSE PRACTITIONER [address] [facility], [address] [place] [address] PCP - General 03/19/15 documented as of this encounter
--- OUTSIDE RECORDS SUMMARY | 2025-07-12 12:16 | XMS_ITS | Encounter Summary ---
Author Organization [facility] tem Address [facility] [place]-[id number] [address] [place] [address] Care Team Providers Care Bowling Ball Assembler Name Role Phone Jesenia Peng COMPUTER SECURITY COORDINATOR-ELECTRICAL DESIGN ENGINEER Primary Care Provider Encounter Details Date Type Department Care Team (Late Contact Info) Description 09/18/2021 Orders Only [facility] [address] [facility] [address] [place] [address] Anamaria Perkins CMA Health maintenance examination (Primary Dx) Social History Tobacco Use Types [...] [facility] Department of [address] [place] [address] Cliff Greenfield MD [address] [facility], [address] [place] [address] 08/01/2025 2:00 PM EDT Office Visit [facility], [facility] [address] 101, [address], [address] [place] [address] Trice Stinson MD [address] [place] [address] 101, 102, [address] [place] [address] 08/07/2025 11:00 AM EDT Office Visit [facility] [address] [facility] [address] [place] [address] Isidro Woodall, DO [address] [facility] 170 [place] [address] 08/07/2025 11:00 AM EDT Appointment [facility] Radiology [address] [place] [address] 08/21/2025 2:30 PM EDT Appointment [facility]iology [address] [place] [address] 08/22/2025 2:30 PM EDT Office Visit [facility] [address] [facility] [address] [place] [address] Isidro Woodall, DO [address] [facility] [address] [place] [address] 08/23/2025 1:30 PM EDT Office Visit [facility] [address] [facility] [address] [place] [address] Jesenia Peng, COMPUTER SECURITY COORDINATOR-ELECTRICAL DESIGN ENGINEER [address] [facility], [address] [place] [address] 09/26/2025 1:30 PM EST [facility], A Department of [address] [place] [address] [place] MPH [address] [place] [address] [address] [place] [address] 10/13/2025 11:45 AM EST Office Visit [facility] Cardiology [address] [place] [address] [address] [place] [address] Duong Johnson DO [address] [facility], [address] [place] [address] 10/13/2025 3:15 PM EST Office Visit [facility], A Department of [address] [place] [address] Ines Uribe, ALEXC [address] [place] [address], [address] [place] [address] 11/14/2025 12:20 PM EST Office Visit [facility] [address] [facility] [address] [place] [address] Ofelia Pierce V, COMPUTER SECURITY COORDINATOR-ELECTRICAL DESIGN ENGINEER [address] [facility] [address] [place] [address] 11/21/2025 12:30 PM EST Appointment [facility] [place] - Mammography [address] [place] [address] documented as of this encounter Results * (ABNORMAL) ESR (01/14/2022) SED RATE {PL} 54(A) 0 - 30 [facility] 01/14/2022 Jesenia Peng COMPUTER SECURITY COORDINATOR-[employer] LAB BLOOD ORDERABLES Fi nal Result Performing Organization Address [facility] de Phone Number [facility]QUEST * Lipid profile (01/14/2022) External Cholesterol 182 150 - 200 [facility] External Cholesterol:Hdl 2.2 1.0 - 5.0 [facility] External Hdl Cholesterol 82 >39 [facility] External Ldl (Calc) 92 <130 [facility] External Triglycerides 40 27 - 150 [facility] External Very Low Lipoprotein 8 0 - 30 [facility] 01/14/2022 Jesenia Peng COMPUTER SECURITY COORDINATOR-[employer] LAB BLOOD ORDERABLES Fi nal Result Performing Organization Address [facility] de Phone Number [facility]QUEST * (ABNORMAL) Comprehensive metabolic panel (01/14/2022) External Blood Urea Nitrogen Bun 28(A) 5 - 27 [facility] 01/14/2022 Jesenia Peng COMPUTER SECURITY COORDINATOR-[employer] LAB BLOOD ORDERABLES Fi nal Result Performing Organization Address [facility] de Phone Number [facility]QUEST * CBC auto differential (01/14/2022) 01/14/2022 Jesenia Peng COMPUTER SECURITY COORDINATOR[employer]Profile Ltd LAB BLOOD ORDERABLES Fi nal Result Performing Organization Address [facility] de Phone Number SUNQUEST documented in this encounter Visit Diagnoses Diagnosis Health maintenance examination- Primary Unspecified general medical examination documented in this encounter Additional Health Concerns Infection Onset Date Last Indicated Resolved Time COVID-19 Rule-Out 06/27/2025 06/27/2025 06/27/2025 2:03 PM EDT Assessment Noted Time PHQ-9 Depression Total Score: 7 07/24/20 21 8:13 PM EDT A Body Mass Index follow-up plan has been documented for the patient 08/09/2020 7:22 AM EDT documented as of this encounter Care Teams Bowling Ball Assembler Relationship Specialty Start Date End Date Jesenia Peng, COMPUTER SECURITY COORDINATOR-ELECTRICAL DESIGN ENGINEER [facility], [address] [place] [address] PCP - General 03/19/15 documented as of this encounter
--- OUTSIDE RECORDS SUMMARY | 2025-07-12 12:16 | XMS_ITS | Encounter Summary ---
Author Organization [facility] tem Address [facility]-[id number] [address] [place] [address] Care Team Providers Care Director Call Center Sales Name Role Phone Jesenia Peng Primary Care Provider Reason for Referral * Consultation (Urgent) - Closed Specialty Diagnoses / Procedures Referred By Contsudheer t Referred To Contact Cardiology Diagnoses Abnormal cardiovascular stress test Jesenia Peng APRN-CNP [address] [facility], [address] [place] [address] Phone: tel: fax: Uriel Brandon MD Phone: tel: fax: Referral ID Status Reason Start Date Expiration Date V isits Requested Visits Authorized [id number] Closed Specialty Services Required 11/29/2020 11/29/2021 1 1 Encounter Details Date Type Department Care Team (Late st Contact Info) Description 11/29/2020 Orders Only [facility] [address] [place] [address] Jesenia Peng APRN-CNP [address] [facility], [address] [place], [place] [phone] Abnormal cardiovascular stress test (Primary Dx) Social History Tobacco Use Types [...] have Coronavirus / COVID-19? No / Unsure 11/30/2020 6:39 AM EST documented as of this encounter Plan of Treatment Upcoming Encounters Date Type Department Care Team (Late st Contact Info) Description 07/20/2025 10:45 AM EDT Office Visit [facility], A Department of [address] [address] Cliff Greenfield MD [address] [place] [address], [address] [address] 08/01/2025 2:00 PM EDT Office Visit [facility] Neurology, A Department of [address] 101, [address], [address] [place] [address] Trice Stinson MD [address] [place] [address] 101, 102, [address] [place] [address] 08/07/2025 11:00 AM EDT Office Visit [facility] Physical Medicine and Rehabilitation [address] [phone] Isidro Woodall DO [address] [facility] [address] [place] [address] 08/07/2025 11:00 AM EDT Appointment [facility] [address] [place] [address] 08/21/2025 2:30 PM EDT Appointment [facility] [address] [place] [address] 08/22/2025 2:30 PM EDT Office Visit [facility] [address] [facility] [address] [place] [address] Isidro Woodall, DO [address] [facility] [address] [place] [address] 08/23/2025 1:30 PM EDT Office Visit [facility] [address] [facility] [address] [place] [address] Jesenia Peng, ELECTRONIC PREPRESS SYSTEM OPERATOR-OUTSOLE MOLDER [address] [facility], [address] [place] [address] 09/26/2025 1:30 PM EST Office Visit [facility], A Department of [address] [phone] Neli Clemente MD MPH [address] [place] [address] 10/13/2025 11:45 AM EST Office Visit [facility] Cardiology [address] [place] [phone] Duong Johnson, [address] [place] [address], [address] [place] [address] 10/13/2025 3:15 PM EST Office Visit [facility], A Department of [address] [phone] Ines Uribe PA-C [address] [facility], [address] [place] [address] 11/14/2025 12:20 PM EST Office Visit [facility] [address] [facility] [address] [place] [phone] Ofelia Pierce APRN-OUTSOLE MOLDER [address] [facility] [address] [place] [address] 11/21/2025 12:30 PM EST Appointment [facility] [place] - Mammography [address] [place] [address] Scheduled Referrals Name Type Priority Associated Diagnoses Orde r Schedule [facility] Card[facility] - [place], [place] Outpatient Referral Routine Abnormal cardiovascular stress test 1 Occurrences starting 11/29/2020 until 05/29/2021 documented as of this encounter Visit Diagnoses Diagnosis Abnormal cardiovascular stress test- Primary Other nonspecific abnormal cardiovascular system function study documented in this encounter Additional Health Concerns Infection Onset Date Last Indicated Resolved Time COVID-19 Rule-Out 06/27/2025 06/27/2025 06/27/2025 2:03 PM EDT Assessment Noted Time PHQ-9 Depression Total Score: 4 08/27/20 20 1:00 PM EDT A Body Mass Index follow-up plan has been documented for the patient 08/09/2020 7:22 AM EDT documented as of this encounter Care Teams Director Call Center Sales Relationship Specialty Start Date End Date Jesenia Peng, ELECTRONIC PREPRESS SYSTEM OPERATOR-OUTSOLE MOLDER [address] [place] [address], [address] [place] [address] PCP - General 03/19/15 documented as of this encounter
--- OUTSIDE RECORDS SUMMARY | 2025-07-12 12:17 | XMS_ITS | Encounter Summary ---
Author Organization [facility] Sys tem Address [id number] [address] [place] [address] Care Team Providers Care Fire Extinguisher Installer Name Role Phone Jesenia Peng BONBON CREAM WARMER-SAS ADMINISTRATOR Primary Care Provider Encounter Details Date Type Department Care Team (Late st Contact Info) Description 11/18/2023 Orders Only [facility] [address] [place] [address] Jaja Sanabria MA Encounter for screening mammogram for malignant neoplasm of breast (Primary Dx) Social History Tobacco Use Types Packs/Day Years Used Date Smoking Tobacco: Former Cigarettes Q uit: 2018 Smokeless Tobacco: Never Alcohol Use Standard Drinks/Week Comments Yes 1 (1 standard drink = 0.6 oz pur e alcohol) daily PHQ-2 Answer Date Recorded Total Score 12 10/28/2023 Childcare Answer Date Recorded Childcare Unknown 04/11/2019 Employment Answer Date Recorded Employment Unknown 04/11/2019 Hunger Screening Answer Date Recorded Within the past 12 months we worried whether our food would run out before we got money to buy more. Never True 07/22/2023 Within the past 12 months th e food we bought just didn't last and we didn't have money to get more. Never True 07/22/2023 Purpose - Life Answer Date Recorded Purpose [...] 10:45 AM EDT Office Visit [facility], A Department of [facility] [address] [place] [address] [address] [place] [address] Cliff Greenfield MD [address] [facility], [address] [place] [address] 08/01/2025 2:00 PM EDT Office Visit [facility], A Department of [address], [address], [address] [place] [phone] Trice Stinson MD [address] [place] [address] 101, 102, 103 [place] [address] 08/07/2025 11:00 AM EDT Office Visit [facility] [address] [place] [address] Isidro Woodall, DO [address] [facility] 170 [place] [address] 08/07/2025 11:00 AM EDT Appointment [facility] [address] [place] [address] 08/21/2025 2:30 PM EDT Appointment [facility] [address] [place] [address] 08/22/2025 2:30 PM EDT Office Visit [facility] [address] [place] [address] Isidro Woodall, DO [address] [place] [address] 08/23/2025 1:30 PM EDT Office Visit [facility] [address] [place] [phone] Jesenia Peng, BONBON CREAM WARMER-SAS ADMINISTRATOR [address] [facility], [address] [place] [address] 09/26/2025 1:30 PM EST Office Visit [facility], A Department of [address] [place] [address] Neli Clemente MD MPH [address] [place] [address] [address] [place] [address] 10/13/2025 11:45 AM EST Office Visit [facility] [address] [place] [address] 202 [place] [address] Duong Johnson, [address] [place] [address], [address] [place] [address] 10/13/2025 3:15 PM EST Office Visit [facility], A Department of [address] [place] [address] Ines Uribe, PA-C [address] [place] [address], [address] [place] [address] 11/14/2025 12:20 PM EST Office Visit [facility] [address] [facility] 170 [place] [phone] Ofelia Peirce V, BONBON CREAM WARMER-SAS ADMINISTRATOR [address] [facility] [address] [place] [address] 11/21/2025 12:30 PM EST [facility]ment [facility] [address] [place] [address] Scheduled Orders Name Type Priority Associated Diagnoses Orde r Schedule Mammography screening bilateral with CAD Imaging Routine Encounter for screening mammogram for malignant neoplasm of breast Expected: 11/18/2023, Expires: 11/18/2024 documented as of this encounter Goals Goal Patient Goal Type Associated Problems Recent Progress Patient-Stated? Author Discharge with home care General Yes Carmen Yañez, RN Note: Evaluation of progress towards goal: [facility] home [facility] documented as of this encounter Visit Diagnoses Diagnosis Encounter for screening mammogram for malignant neoplasm of breast- Primary documented in this encounter Additional Health Concerns Infection Onset Date Last Indicated Resolved Time COVID-19 Rule-Out 06/27/2025 06/27/2025 06/27/2025 2:03 PM EDT Assessment Noted Time PHQ-9 Depression Total Score: 12 023 11:37 AM EST A Body Mass Index follow-up plan has been documented for the patient 10/28/2023 12:18 PM EST documented as of this encounter Care Teams Fire Extinguisher Installer Relationship Specialty Start Date End Date Jesenia Peng, RADHA-SAS ADMINISTRATOR [address] [place] [address], [address] [place] [address] PCP - General 03/19/15 documented as of this encounter
--- OUTSIDE RECORDS SUMMARY | 2025-07-12 12:17 | XMS_ITS | Encounter Summary ---
Author Organization [employer] [facility] Address [id number] [address] [place] [address] Care Team Providers Care Operations Intelligence Name Role Phone Jesenia Peng MARKET MASTER-HVAC SERVICE TECHNICIAN Primary Care Provider Reason for Visit * Reason Onset Date Comments Care Navigation 05/05/2025 Encounter Details Date Type Department Care Team (Late st Contact Info) Description 05/05/2025 [facility]phone [facility] [address] [place] [phone] Amy Flanagan, KIMBERLEY Care Navigation Social History Tobacco Use Types Packs/Day Years Used Date Smoking Tobacco: Former Cigarettes Q uit: 2018 Smokeless Tobacco: Never Alcohol Use Standard Drinks/Week Comments Yes 7 (1 standard drink = 0.6 oz pur e alcohol) daily PHQ-2 Answer Date Recorded Total Score 0 01/26/2025 Childcare Answer Date Recorded Childcare Unknown 04/11/2019 Employment Answer Date Recorded Employment Unknown 04/11/2019 Hunger Screening Answer Date Recorded Within the past 12 months we worried whether our food would run out before we got money to buy more. Never True 04/17/2025 Within the past 12 months th e food we bought just didn't last and we didn't have money to get more. Never True 04/17/2025 Purpose - Life Answer Date Recorded Purpose and direction in life Unknown Comments No Sex and Gender Information Value Date Recorded Sex Assigned at Not on file Legal Sex Female 7:50 PM EDT Gender Identity Not on file Sexual Orientation Not on file documented as of this encounter Miscellaneous Notes * Telephone Encounter - Amy Flanagan RN - 05/05/2025 9:55 AM EDT Navigator received a call from Annalise Rodriguez at office of Dr. John Dominguez requesting that home IV hydration be arranged for Pt due to malnutrition, dehydration and Parkinson's. IV orders: D5/LR at 50 cc/hr x 48 hours. Pt has [facility] insurance. Annalise also stated that Pt requests HERB COUNSELOR to cover the hours while works. Advised that this would likely be private pay and Annalise stated that is not a problem. Navigator spoke with Edwin at [facility] and was told they no longer service Pts needing hydration at home. She directed Navigator to [facility]. Navigator was told by [facility] staff that they do not supply home IV hydration and do not know anyone who does. Navigator spoke with staff at the Infusion Centers at [facility] and [facility] and they do not have any openings for infusions today or next week. Message left at the Infusion Center at [facility]. [facility] in [place] has no openings for infusions today. A message was left for the [facility] in [place]. Navigator spoke with Jaja Murry at the [facility] ([phone]) and they have time in their schedule today to give Pt a fluid bolus over 1-2 hours. Signed orders with dx and demographics need to be faxed to them JODY at [phone]. Pt needs to be there by 1330 -1400. Annalise at PCP office was notified of above. Annalise was also advised to tell Pt / family that they can callany home care agency to arrange for a private pay HERB COUNSELOR. documented in this encounter Plan of Treatment Upcoming Encounters Date Type Department Care Team (Late st Contact Info) Description 07/20/2025 10:45 AM EDT Office Visit [facility], A Department of [address] [address] Cliff Greenfield MD [address] [facility], [address] [place] [address] 08/01/2025 2:00 PM EDT Office Visit [facility], A Department of [address], [address], [address] [place] [address] Trice Stinson MD [address] [place] [address] 101, 102, 103 [place] [address] 08/07/2025 11:00 AM EDT Office Visit [facility] [address] [facility] 170 [place] [address] Isidro Woodall, DO [address] [facility] 170 [place] [address] 08/07/2025 11:00 AM EDT Appointment [facility] [address] [place] [address] 08/21/2025 2:30 PM EDT Appointment [facility] [address] [place] [address] 08/22/2025 2:30 PM EDT Office Visit [facility] [address] [facility] [address] [place] [address] Isidro Woodall, DO [address] [facility] 170 [place] [address] 08/23/2025 1:30 PM EDT Office Visit [facility] [address] [facility] [address] [place] [address] Jesenia Peng, MARKET MASTER-HVAC SERVICE TECHNICIAN [address] [facility], [address] [place] [address] 09/26/2025 1:30 PM EST Office Visit [facility], A Department of [address] [place] [address] Neli Clemente MD MPH [address] [place] [address] 202 [place] [address] 10/13/2025 11:45 AM EST Office Visit [facility] [address] [place] [address] 202 [place] [address] Duong Johnson, [address] [facility], [address] [place] [address] 10/13/2025 3:15 PM EST [facility], [facility] Department of [address] [place] [address] Ines Uribe, PARaphaelC [address] [place] [address], [address] [place] [address] 11/14/2025 12:20 PM EST Office Visit [facility] [address] [facility] 170 [place] [address] Ofelia Pierce V, MARKET MASTER-HVAC SERVICE TECHNICIAN [address] [place] [address] 11/21/2025 12:30 PM EST Appointment [facility] [place] [facility] [address] [place] [address] documented as of this encounter Goals Goal [...] Noted Time PHQ-9 Depression Total Score: 0 01/27/20 10:32 AM EDT A Body Mass Index follow-up plan has been documented for the patient 02/23/2025 12:24 PM EDT documented as of this encounter Care Teams Operations Intelligence Relationship Specialty Start Date End Date Jesenia Peng APRN-HVAC SERVICE TECHNICIAN [address] [place] [address], [address] [place] [address] PCP - General 03/19/15 documented as of this encounter
--- OUTSIDE RECORDS SUMMARY | 2025-07-12 12:17 | XMS_ITS | Encounter Summary ---
Author Organization [facility] tem Address [id number] [address] [place] [address] Care Team Providers Care Manipulative Therapy Specialist Name Role Phone Jesenia Peng WINDSURFING INSTRUCTOR-AUTOMATIC PINSETTER MECHANIC Primary Care Provider Encounter Details Date Type Department Care Team (Late Contact Info) Description 11/07/2020 [facility]phone [facility] [address] [facility] 170 [place] [address] Jacqueline Romero CMA Social History Tobacco Use Types Packs/Day [...] have Coronavirus / COVID-19? No / Unsure 10/24/2020 11:28 AM EST documented as of this encounter Plan of Treatment Upcoming Encounters Date Type Department Care Team (Late Contact Info) Description 07/20/2025 10:45 AM EDT Office Visit [facility], A Department of [address] [place] [address] Cliff Greenfield MD [address] [facility], [address] [place] [address] 08/01/2025 2:00 PM EDT Office Visit [facility], A Department of [facility] [address], [address], [address] [place] [phone] [place] [address] [place] [address] [address], [address], [address] [place] [address] 08/07/2025 11:00 AM EDT Office Visit [facility] [address] [facility] [address] [place] [address] sIidro Woodall, DO [address] [facility] 170 [place] [address] 08/07/2025 11:00 AM EDT Appointment [facility] [address] [place] [address] 08/21/2025 2:30 PM EDT Appointment [facility] [address] [place] [address] 08/22/2025 2:30 PM EDT Office Visit [facility] [address] [facility] [address] [place] [address] Isidro Woodall, DO [address] [facility] 170 [place] [address] 08/23/2025 1:30 PM EDT Office Visit [facility] [address] [facility] [address] [place] [address] Jesenia Peng, WINDSURFING INSTRUCTOR-AUTOMATIC PINSETTER MECHANIC [address] [facility], [address] [place] [address] 09/26/2025 1:30 PM EST Office Visit [facility], A Department of [address] [place] [address] [place] MPH [address] [place] [address] 202 [place] [address] 10/13/2025 11:45 AM EST Office Visit [facility] [address] [place] [address] 202 [place] [address] Duong Johnson, [address] [place] [address], [address] [place] [address] 10/13/2025 3:15 PM EST Office Visit [facility], A Department of [address] [place] [phone] Ines Uribe PA-C [address] [place] [address], [address] [place] [address] 11/14/2025 12:20 PM EST Office Visit [facility] [address] [facility] 170 [place] [phone] Ofelia Pierce V, WINDSURFING INSTRUCTOR-AUTOMATIC PINSETTER MECHANIC [address] [place] [address] 11/21/2025 12:30 PM EST Appointment [facility] [place] [facility] [address] [place] [address] documented as of this encounter [...] documented as of this encounter Care Teams Manipulative Therapy Specialist Relationship Specialty Start Date End Date Jesenia Peng APRN-AUTOMATIC PINSETTER MECHANIC [address] [place] [address], [address] [place] [address] PCP - General 03/19/15 documented as of this encounter
--- OUTSIDE RECORDS SUMMARY | 2025-07-12 12:17 | XMS_ITS | Encounter Summary ---
Author Organization [facility] tem Address [id number] [address] [place] [address] Care Team Providers Care Electrotherapist Name Role Phone Jesenia Peng Primary Care Provider Reason for Referral * Misc (Routine) - Closed Specialty Diagnoses / Procedures Referred By Madeline t Referred To Contact Diagnoses Chronic obstructive pulmonary disease, unspecified COPD type (CMS-HCC) Parkinson's disease ([facility]) Procedures Disability/Handicap Jesenia Thompson APRN-CNP [address] [place] [address], [address] [place] [address] Phone: tel: fax: Referral ID Status Reason Start Date Expiration Date Visits Re quested Visits Authorized [id number] Closed 01/28/2022 01/28/2023 1 1 Encounter Details Date Type Department Care Team (Late st Contact Info) Description 01/28/2022 Orders Only [facility] [address] [place] [address] [address] [place] [address] Anamaria Perkins CMA Chronic obstructive pulmonary disease, unspecified COPD type ([facility]) (Primary Dx); Parkinson's disease Social History Tobacco Use Types Packs/Day Years Used Date Smoking Tobacco: Former Cigarettes Q uit: 2018 Smokeless Tobacco: Never Alcohol Use Standard Drinks/Week Comments Yes 1 (1 standard drink = 0.6 oz pur e alcohol) daily PHQ-2 Answer Date Recorded Total Score 0 01/28/2022 Childcare Answer Date Recorded Childcare Unknown 04/11/2019 [...] Exposure Response Date Recorded In the last 10 days, have yo u been in contact with someone who was confirmed or suspected to have Coronavirus/COVID-19? Unable to assess 01/30/2022 9:10 AM EDT documented as of this encounter Plan of Treatment Upcoming Encounters Date Type Department Care Team (Late st Contact Info) Description 07/20/2025 10:45 AM EDT Office Visit [facility], A Department of [address] [place] [address] Cliff Greenfield MD [address] [place] [address], [address] [place] [address] 08/01/2025 2:00 PM EDT Office Visit [facility], A Department of [address], [address], [address] [place] [address] Trice Stinson MD [address] [place] [address] 101, 102, 103 [place] [address] 08/07/2025 11:00 AM EDT Office Visit [facility] [address] [facility] [address] [place] [address] Isidro Woodall DO [address] [facility] [address] [place] [address] 08/07/2025 11:00 AM EDT Appointment [facility] [address] [place] [address] 08/21/2025 2:30 PM EDT Appointment [facility] [address] [place] [address] 08/22/2025 2:30 PM EDT Office Visit [facility] [address] [facility] 170 [place] [address] Isidro Woodall, DO [address] [facility] 170 [place] [address] 08/23/2025 1:30 PM EDT Office Visit [facility] [address] [facility] 170 [place] [address] Jesenia Peng, PASSENGER CAR UPHOLSTERER APPRENTICE-CREATIVE GURU [address] [facility], [address] [place] [address] 09/26/2025 1:30 PM EST Office Visit [facility], A Department of [address] [phone] Neli Clemente MD MPH [address] [place] [phone] 10/13/2025 11:45 AM EST Office Visit [facility] [address] [place] [phone] Duong Johnson, DO [address] [place] [address], [address] [place] [address] 10/13/2025 3:15 PM EST Office Visit [facility], A Department of [address] [phone] Ines Uribe, PA-C [address] [place] [address] 11/14/2025 12:20 PM EST Office Visit [facility] [address] [place] [phone] Ofelia Pierce V, PASSENGER CAR UPHOLSTERER APPRENTICE-CREATIVE GURU [address] [place] [address] 11/21/2025 12:30 PM EST Appointment [facility] [place] [facility] [address] [place] [address] documented as of this encounter Goals Goal Patient Goal Type Associated Problems Recent Progress Patient-Stated? Author Discharge with home care General Yes Carmen Yañez, RN Note: Evaluation of progress towards goal: [facility] home [facility] documented as of this encounter Visit Diagnoses Diagnosis Chronic obstructive pulmonary disease, unspecified COPD type (CMS-HCC)- Primary Parkinson's disease ([facility]) documented in this encounter Additional Health Concerns Infection Onset Date Last Indicated Resolved Time COVID-19 Rule-Out 06/27/2025 06/27/2025 06/27/2025 2:03 PM EDT Assessment Noted Time PHQ-9 Depression Total Score: 0 01/29/20 1:11 PM EDT A Body Mass Index follow-up plan has been documented for the patient 08/09/2020 7:22 AM EDT documented as of this encounter Care Teams Electrotherapist Relationship Specialty Start Date End Date Jesenia Peng, PASSENGER CAR UPHOLSTERER APPRENTICE-CREATIVE GURU [address] [facility], [address] [place] [address] PCP - General 03/19/15 documented as of this encounter
--- OUTSIDE RECORDS SUMMARY | 2025-07-12 12:17 | XMS_ITS | Encounter Summary ---
Author Organization [facility] Sys tem Address [id number] [address] [place] [address] Care Team Providers Care Industrial Relations Director Name Role Phone Jesenia Peng TEACHING SPECIALISTS-FROZEN PIE MAKER Primary Care Provider Encounter Details Date Type Department Care Team (Late st Contact Info) Description 07/17/2022 Orders Only [facility] [address] [place] [phone] Jo Grant CMA Osteoarthritis of facet joint of lumbar spine (Primary Dx); Lumbar radiculopathy; Lumbar degenerative disc disease; Chronic pain syndrome Social History Tobacco Use Types Packs/Day Years Used Date Smoking Tobacco: Former Cigarettes Q uit: 2018 Smokeless Tobacco: Never Alcohol Use Standard Drinks/Week Comments Yes 1 (1 standard drink = 0.6 oz pur e alcohol) daily PHQ-2 Answer Date Recorded Total Score 5 03/10/2022 Childcare Answer Date Recorded Childcare Unknown 04/11/2019 [...] have Coronavirus / COVID-19? No / Unsure 07/16/2022 1:18 PM EDT documented as of this encounter Plan of Treatment Upcoming Encounters Date Type Department Care Team (Late st Contact Info) Description 07/20/2025 10:45 AM EDT Office Visit [facility], A Department of [facility] [address] [place] [address] [address] [facility] [place] [address] Cliff Greenfield MD [address] [facility], [address] [place] [address] 08/01/2025 2:00 PM EDT Office Visit [facility], A Department of [address], [address], [address] [place] [phone] Trice Stinson MD [address] [place] [address] 101, 102, 103 [place] [address] 08/07/2025 11:00 AM EDT Office Visit [facility] [address] [facility] 170 [place] [address] Isidro Woodall DO [address] [facility] 170 [place] [address] 08/07/2025 11:00 AM EDT Appointment [facility] Radiology [address] [place] [address] 08/21/2025 2:30 PM EDT Appointment [facility] [address] [place] [address] 08/22/2025 2:30 PM EDT Office Visit [facility] [address] [facility] 170 [place] [address] Isidro Woodall DO [address] [facility] 170 [place] [address] 08/23/2025 1:30 PM EDT Office Visit [facility] [address] [facility] 170 [place] [address] Jesenia Peng, TEACHING SPECIALISTS-FROZEN PIE MAKER [address] [facility], [address] [place] [address] 09/26/2025 1:30 PM EST Office Visit [facility], A Department of [address] [phone] Neli Clemente MD MPH [address] [place] [phone] 10/13/2025 11:45 AM EST Office Visit [facility] Cardiology [address] [place] [phone] Duong Johnson, [address] [place] [address], [address] [place] [address] 10/13/2025 3:15 PM EST Office Visit [facility], A Department of [address] [place] [address] Ines Uribe PA-C [address] [place] [address], [address] [place] [address] 11/14/2025 12:20 PM EST Office Visit [facility] [address] [phone] Ofelia Pierce V, TEACHING SPECIALISTS-FROZEN PIE MAKER [address] [facility] [place] [address] 11/21/2025 12:30 PM EST Appointment [facility] [address] [place] [phone] documented as of this encounter Goals Goal Patient Goal Type Associated Problems Recent Progress Patient-Stated? Author Discharge with home care General Yes Carmen Yañez, RN Note: Evaluation of progress towards goal: [facility] documented as of this encounter Visit Diagnoses Diagnosis Osteoarthritis of facet joint of lumbar spine- Primary Lumbar radiculopathy Thoracic or lumbosacral neuritis or radiculitis, unspecified Lumbar degenerative disc disease Chronic pain syndrome documented in this encounter Administered Medications Inactive Administered Medications - up to 3 most recent administrations Medication Order MAR Action Action Date Dose Rate Site triamcinolone acetonide (KENALOG-80) injection 80 mg 80 mg, intramuscular, Once, On Eva 07/17/22 at 1500, For 1 doseIndications:Osteoarthritis of facet joint of lumbar spine,Lumbar radiculopathy,Lumbar degenerative disc disease,Chronic pain syndrome Given 07/17/2022 2:48 PM EDT 80 mg Other documented in this encounter Additional Health Concerns Infection Onset Date Last Indicated Resolved Time COVID-19 Rule-Out 06/27/2025 06/27/2025 06/27/2025 2:03 PM EDT Assessment Noted Time PHQ-9 Depression Total Score: 5 03/10/20 22 10:27 AM EDT A Body Mass Index follow-up plan has been documented for the patient 06/26/2022 6:02 AM EDT documented as of this encounter Care Teams Industrial Relations Director Relationship Specialty Start Date End Date Jesenia Peng APRN-JONEL [address] [place] [address], [address] [place] [address] PCP - General 03/19/15 documented as of this encounter
--- OUTSIDE RECORDS SUMMARY | 2025-07-12 12:17 | XMS_ITS | Encounter Summary ---
Author Organization [facility] Sys tem Address [id number] [address] [place] [address] Care Team Providers Care Brownfield Redevelopment Site Manager Name Role Phone Jesenia Peng DENTAL ASSISTANT MEDICAL ASSISTANT-MARINA DRY DOCK MANAGER Primary Care Provider Encounter Details Date Type Department Care Team ([facility] Contact Info) Description 06/30/2024 Orders Only [facility] [address] [place] [phone] External, Scanning Provider Social History Tobacco Use Types Packs/Day Years Used Date Smoking Tobacco: Former Cigarettes Q uit: 2018 Smokeless Tobacco: Never Alcohol Use Standard Drinks/Week Comments Yes 7 (1 standard drink = 0.6 oz pur e alcohol) daily PHQ-2 Answer Date Recorded Total Score 0 03/02/2024 Childcare Answer Date Recorded Childcare Unknown 04/11/2019 Employment Answer Date Recorded Employment Unknown 04/11/2019 Hunger Screening Answer Date Recorded Within the past 12 months we worried whether our food would run out before we got money to buy more. Never True 05/16/2024 Within the past 12 months th e food we bought just didn't last and we didn't have money to get more. Never True 05/16/2024 Purpose - Life Answer Date Recorded Purpose and direction in life Unknown Comments No Sex and Gender Information Value Date Recorded Sex Assigned at Not on file Legal Sex Female 7:50 PM EDT Gender Identity Not on file Sexual Orientation Not on file documented as of this encounter Plan of Treatment Upcoming Encounters Date Type Department Care Team ([facility] Contact Info) Description 07/20/2025 10:45 AM EDT Office Visit [facility], A Department of [address] [place] [phone] Cliff Greenfield MD [address] [facility], [address] [place] [address] 08/01/2025 2:00 PM EDT Office Visit [facility] Neurology, A Department of [address] [place] [phone] Trice Stinson MD [address] [place] [address] 101, [address], [address] [place] [address] 08/07/2025 11:00 AM EDT Office Visit [facility] [address] [facility] 170 [place] [address] Isidro Woodall DO [address] [facility] [address] [place] [address] 08/07/2025 11:00 AM EDT Appointment [facility] [address] [place] [address] 08/21/2025 2:30 PM EDT Appointment [facility] [address] [place] [address] 08/22/2025 2:30 PM EDT Office Visit [facility] [address] [facility] [address] [place] [address] Isidro Wooadll, DO [address] [facility] 170 [place] [address] 08/23/2025 1:30 PM EDT Office Visit [facility] [address] [facility] [address] [place] [address] Jesenia Peng, DENTAL ASSISTANT MEDICAL ASSISTANT-MARINA DRY DOCK MANAGER [address] [facility], [address] [place] [address] 09/26/2025 1:30 PM EST Office Visit [facility], A Department of [address] [phone] Neli Clemente MD MPH [address] [place] [phone] 10/13/2025 11:45 AM EST Office Visit [facility] Cardiology [address] [place] [address] [address] [place] [address] Duong Johnson, DO [address] [place] [address], [address] [place] [address] 10/13/2025 3:15 PM EST [facility], A Department of [address] [place] [phone] Ines Uribe, PA-C [address] [place] [address], [address] [place] [address] 11/14/2025 12:20 PM EST Office Visit [facility] [address] [facility] [address] [place] [phone] Ofelia Pierce V, DENTAL ASSISTANT MEDICAL ASSISTANT-MARINA DRY DOCK MANAGER [address] [facility] [address] [place] [address] 11/21/2025 12:30 PM EST Appointment [facility] [place] - Mammography [address] [place] [phone] documented as of this encounter Goals Goal [...] Noted Time PHQ-9 Depression Total Score: 0 03/02/20 11:33 AM EDT A Body Mass Index follow-up plan has been documented for the patient 06/29/2024 1:23 PM EDT documented as of this encounter Care Teams Brown[employer] Redevelopment Site Manager Relationship Specialty Start Date End Date Jesenia Peng APRN-JONEL [address] [place] [address], [address] [place] [address] PCP - General 03/19/15 documented as of this encounter
--- OUTSIDE RECORDS SUMMARY | 2025-07-12 12:17 | XMS_ITS | Encounter Summary ---
Author Organization [facility] Sys [facility] Address [id number] [address] [place] [address] Care Team Providers Care Supervisor Film Processing Name Role Phone Jesenia Peng BUZZSAW OPERATOR HELPER-CATEGORY DEVELOPMENT MANAGER Primary Care Provider Encounter Details Date Type Department Care Team (Late st Contact Info) Description 11/23/2023 Orders [facility] [address] [facility] [address] [place] [address] Jesenia Peng BUZZSAW OPERATOR HELPER-CATEGORY DEVELOPMENT MANAGER [address] [facility], [address] [place] [address] Health care maintenance (Primary Dx) Social History Tobacco Use Types [...] Recorded Purpose and direction in life Unknown 01 /10/2021 Comments No Sex and Gender Information Value [...] [facility], A Department of [address] [place] [address] Cliff Greenfield MD [address] [place] [address], [address] [place] [address] 08/01/2025 2:00 PM EDT Office Visit [facility] Neurology, A Department of [address], [address] [place] [phone] Trice Stinson MD [address] [place] [address] 101, 102, 103 [place] [address] 08/07/2025 11:00 AM EDT Office Visit [facility] [address] [address] Isidro Woodall DO [address] [address] 08/07/2025 11:00 AM EDT Appointment [facility] Rad[facility] [address] [place] [address] 08/21/2025 2:30 PM EDT Appointment [facility] [address] [place] [address] 08/22/2025 2:30 PM EDT Office Visit [facility] [address] [facility] 170 [place] [address] Isidro Woodall DO [address] [facility] 170 [place] [address] 08/23/2025 1:30 PM EDT Office [facility] [address] [facility] [address] [place] [address] Jesenia Peng, BUZZSAW OPERATOR HELPER-CATEGORY DEVELOPMENT MANAGER [address] [facility], [address] [place] [address] 09/26/2025 1:30 PM EST Office Visit [facility], A Department of [address] [place] [phone] Neli Clemente MD MPH [address] [place] [phone] 10/13/2025 11:45 AM EST Office Visit [facility] Cardiology [address] [place] [address] 202 [place] [address] Duong Johnson, DO [address] [place] [address], [address] [place] [address] 10/13/2025 3:15 PM EST [facility], A Department of [address] [place] [phone] Ines Uribe, SOPHY-C [address] [place] [address], [address] [place] [address] 11/14/2025 12:20 PM EST Office Visit [facility] [address] [facility] 170 [place] [phone] Ofelia Pierce V, BUZZSAW OPERATOR HELPER-CATEGORY DEVELOPMENT MANAGER [address] [facility] [address] [place] [address] 11/21/2025 12:30 PM EST Appointment [facility] [place] - Mammography [address] [place] [address] documented as of this encounter Goals Goal Patient Goal Type Associated Problems Recent Progress Patient-Stated? Author Discharge with home care General Yes Carmen Yañez, RN Note: Evaluation of progress towards goal: [facility] home [facility] documented as of this encounter Results * Urinalysis (01/26/2024) Color YELLOW SUNQUEST Appearance CLEAR SUNQUEST Specific gravity 1.019 1.005 - 1.035 SUNQUEST Ph urine 6.5 5.0 - 9.0 SUNQUEST Protein NEG SUNQUEST Glucose, urine NEG SUNQUEST URINE KETONES {PL} NEG SUNQUEST Bilirubin, urine NEG SUNQUEST Occult blood NEG SUNQUEST Urobilinogen 0.2 0.2 - <=2.0 SUNQUEST Nitrite NEG SUNQUEST Leukocytes, UA 2+ SUNQUEST WBC, UA 5-10 0 - 5.0 SUNQUEST URINE RBCs {PL} 3-5 0 - 5.0 SUNQUEST Epithelial Cells, Wet Prep 10-15 0 - 10 SUNQUEST Bacteria NONE SEEN SUNQUEST Hyaline Casts, UA Occasional None Seen, Occasional /LPF SUNQUEST 01/26/2024 Jesenia Peng BUZZSAW OPERATOR HELPER-CATEGORY DEVELOPMENT MANAGER URINE ORDERABLES Final Result Performing Organization Address [facility]/ZIP Co de Phone Number SUNQUEST * Lipid profile (01/26/2024) External Cholesterol 173 <200 SUNQUEST External Cholesterol:Hdl 2.9 <4.44 SUNQUEST External Hdl Cholesterol 60 >39 SUNQUEST External Ldl (Calc) 100 <100 SUNQUEST External Triglycerides 66 <149 SUNQUEST External Very Low Lipoprotein 13 <30 SUNQUEST Ldl/Hdl Ratio 1.7 <3.2 SUNQUEST 01/26/2024 Jesenia Peng BUZZSAW OPERATOR HELPER-CATEGORY DEVELOPMENT MANAGER LAB BLOOD ORDERABLES Fi nal Result SUNQUEST * (ABNORMAL) Comprehensive metabolic panel (01/26/2024) External Co2 / Carbon Dioxide 33(A) 19 - 31 SUNQUEST 01/26/2024 us Jesenia Peng APRN-CATEGORY DEVELOPMENT MANAGER LAB BLOOD ORDERABLES Fi nal Result SUNQUEST * CBC auto differential (01/26/2024) 01/26/2024 us Jesenia Peng APRN-JONEL LAB BLOOD ORDERABLES Fi nal Result SUNQUEST documented in this encounter Visit Diagnoses Diagnosis Health care maintenance- Primary documented in this encounter Additional Health Concerns Infection Onset Date Last Indicated Resolved Time COVID-19 Rule-Out 06/27/2025 06/27/2025 06/27/2025 2:03 PM EDT Assessment Noted Time PHQ-9 Depression Total Score: 12 023 11:37 AM EST A Body Mass Index follow-up plan has been documented for the patient 10/28/2023 12:18 PM EST documented as of this encounter Care Teams Supervisor Film Processing Relationship Specialty Start Date End Date Jesenia Peng APRN-CNP [address] [place] [address], [address] [place] [address] PCP - General 03/19/15 documented as of this encounter
--- OUTSIDE RECORDS SUMMARY | 2025-07-12 12:17 | XMS_ITS | Encounter Summary ---
Author Organization [facility] Address [id number] [address] [place] [address] Care Team Providers Care Carpet Tile Layer Name Role Phone Jesenia Peng BULK PIGMENT REDUCER-WATERSHED COORDINATOR Primary Care Provider Encounter Details Date Type Department Care Team (Late st Contact Info) Description 03/16/2024 Orders Only [facility] Cardiology [address] [place] [address] [address] [place] [address] Rosi Montgomery MA Chronic heart failure with preserved ejection fraction (CMS-HCC); Medication monitoring encounter Social History Tobacco Use Types Packs/Day Years [...] got money to buy more. Never True 03/02/2024 Within the past 12 months th e food we bought just didn't last and we didn't have money to get more. Never True 03/02/2024 Purpose - Life Answer Date Recorded Purpose [...] [facility], A Department of [facility] [address] [place] [address] [address] [place] [address] Cliff Greenifeld MD [address] [facility], [address] [place] [address] 08/01/2025 2:00 PM EDT Office Visit [facility] Neurology, A Department of [address] [place] [address] Trice Stinson MD [address] [place] [address] 101, [address], [address] [place] [address] 08/07/2025 11:00 AM EDT Office Visit [facility] [address] [facility] [address] [place] [address] Isidro Woodall DO [address] [facility] [address] [place] [address] 08/07/2025 11:00 AM EDT Appointment [facility] Radiology [address] [place] [address] 08/21/2025 2:30 PM EDT Appointment [facility] [address] [place] [address] 08/22/2025 2:30 PM EDT Office Visit [facility] [address] [place] [address] Isidro Woodall, DO [address] [place] [address] 08/23/2025 1:30 PM EDT Office Visit [facility] [address] [place] [phone] Jesenia Peng, BULK PIGMENT REDUCER-WATERSHED COORDINATOR [address] [facility], [address] [place] [address] 09/26/2025 1:30 PM EST Office Visit [facility], A Department of [address] [place] [phone] Neli Clemente MD MPH [address] [place] [address] [address] [place] [address] 10/13/2025 11:45 AM EST Office Visit [facility] Cardiology [address] [place] [address] [address] [place] [phone] Duong Johnson, [address] [place] [address], [address] [place] [address] 10/13/2025 3:15 PM EST Office Visit [facility], A Department of [address] [place] [phone] Ines Uribe PA-C [address] [place] [address], [address] [place] [address] 11/14/2025 12:20 PM EST Office Visit [facility] 170 [place] [phone] Ofelia Pierce V, BULK PIGMENT REDUCER-WATERSHED COORDINATOR [address] [facility] [address] [place] [address] 11/21/2025 12:30 PM EST Appointment [facility] [place] - Mammography [address] [place] [phone] documented as of this encounter Goals Goal Patient Goal Type Associated Problems Recent Progress Patient-Stated? Author Discharge with home care General Yes Carmen Yañez, RN Note: Evaluation of progress towards goal: [facility] documented as of this encounter Procedures Procedure Name Priority Date/Time Associated Diagnosis Comments MAGNESIUM Routine 03/02/2024 Chronic heart failure with preserved ejection fraction ([facility]CC) Medication monitoring encounter documented in this encounter Results * Magnesium (03/02/2024) 03/02/2024 Jacky LAFLEUR LAB BLOOD ORDERABLES F inal Result SUNQUEST documented in this encounter Visit Diagnoses Diagnosis Chronic heart failure with preserved ejection fraction ([facility]) Medication monitoring encounter Encounter for therapeutic drug monitoring documented in this encounter Additional Health Concerns Infection Onset Date Last Indicated Resolved Time COVID-19 Rule-Out 06/27/2025 06/27/2025 06/27/2025 2:03 PM EDT Assessment Noted Time PHQ-9 Depression Total Score: 0 03/02/20 11:33 AM EDT A Body Mass Index follow-up plan has been documented for the patient 03/02/2024 1:18 PM EDT documented as of this encounter Care Teams Carpet Tile Layer Relationship Specialty Start Date End Date Jesenia Peng APRN-CNP [address] [place] [address], [address] [place] [address] PCP - General 03/19/15 documented as of this encounter
--- OUTSIDE RECORDS SUMMARY | 2025-07-12 12:17 | XMS_ITS | Encounter Summary ---
Author Organization [facility] [employer] Sys tem Address [id number] [address] [place] [address] Care Team Providers Care Guide Winder Name Role Phone Jesenia Peng SASH REPAIRER-FISHING BOAT MATE Primary Care Provider Encounter Details Date Type Department Care Team (Late st Contact Info) Description 07/22/2023 Orders Only [facility] [address] [place] [phone] Uriel Conrad CNA Social History Tobacco Use Types Packs/Day Years Used Date Smoking Tobacco: Former Cigarettes Q uit: 2018 Smokeless Tobacco: Never Alcohol Use Standard Drinks/Week Comments Yes 1 (1 standard drink = 0.6 oz pur e alcohol) daily PHQ-2 Answer Date Recorded Total Score 0 07/22/2023 Childcare Answer Date Recorded Childcare Unknown 04/11/2019 [...] 10:45 AM EDT Office Visit [facility], A Department of [facility] [address] [place] [address] [address] [place] [address] Cliff Greenfield MD [address] [facility], [address] [place] [address] 08/01/2025 2:00 PM EDT Office Visit [facility] Neurology, A Department of [address] 101, [address], 103 [place] [phone] Trice Stinson MD [address] [place] [address] 101, 102, 103 [place] [address] 08/07/2025 11:00 AM EDT Office Visit [facility] [address] [facility] 170 [place] [address] Isidro Woodall DO [address] [facility] [address] [place] [address] 08/07/2025 11:00 AM EDT Appointment [facility] [address] [place] [address] 08/21/2025 2:30 PM EDT Appointment [facility] [address] [place] [address] 08/22/2025 2:30 PM EDT Office Visit [facility] [address] [facility] 170 [place] [address] Isidro Woodall DO [address] [facility] 170 [place] [address] 08/23/2025 1:30 PM EDT Office Visit [facility] [address] [facility] 170 [place] [phone] Jesenia Peng, SASH REPAIRER-FISHING BOAT MATE [address] [facility], [address] [place] [address] 09/26/2025 1:30 PM EST Office Visit [facility], A Department of [address] [phone] Neli Clemente MD MPH [address] [place] [phone] 10/13/2025 11:45 AM EST Office Visit [facility] Card[facility] [address] [place] [phone] Duong Johnson, DO [address] [place] [address], [address] [place] [address] 10/13/2025 3:15 PM EST [facility], A Department of [address] [place] [phone] Ines Uribe, PA-C [address] [place] [address], [address] [place] [address] 11/14/2025 12:20 PM EST Office Visit [facility] [address] [facility] [address] [place] [phone] Ofelia Pierce V, SASH REPAIRER-FISHING BOAT MATE [address] [facility] [address] [place] [address] 11/21/2025 12:30 PM EST Appointment [facility] - Mammography [address] [place] [phone] documented as of this encounter Goals Goal [...] Noted Time PHQ-9 Depression Total Score: 0 07/22/20 11:43 AM EDT A Body Mass Index follow-up plan has been documented for the patient 07/22/2023 4:28 PM EDT documented as of this encounter Care Teams Guide Winder Relationship Specialty Start Date End Date Jesenia Peng APRN-FISHING BOAT MATE [address] [place] [address], [address] [place] [phone] PCP - General 03/19/15 documented as of this encounter
--- OUTSIDE RECORDS SUMMARY | 2025-07-12 12:17 | XMS_ITS | Encounter Summary ---
Author Organization [facility] Address [id number] [address] [place] [address] Care Team Providers Care Core Blower Operator Name Role Phone Jesenia Peng TERRITORY ACCOUNT REPRESENTATIVE-PROPERTY STAFF ACCOUNTANT Primary Care Provider Reason for Visit * Reason Comments Med Refill Encounter Details Date Type Department Care Team (Late st Contact Info) Description 05/25/2024 Refill [facility] [address] [place] [phone] Trice Stinson MD [address] [place] [address] 101, 102, 103 [place], [place] [phone] Social History Tobacco Use Types Packs/Day Years [...] encounter Miscellaneous Notes * Telephone Encounter - Trice Stinson MD - 05/25/2024 2:46 PM EDT No longer taking this medication documented in this encounter Plan of Treatment Upcoming Encounters Date Type Department Care Team (Late st Contact Info) Description 07/20/2025 10:45 AM EDT [facility] Visit [facility], A Department of [address] [phone] Cliff Greenfield MD [address] [place] [address], [address] [place] [address] 08/01/2025 2:00 PM EDT Office Visit [facility] Neurology, A Department of [address] 101, 102, [address] [place] [address] Trice Stinson MD [address] [place] [address] 101, 102, 103 [place] [address] 08/07/2025 11:00 AM EDT Office Visit [facility] [address] [facility] 170 [place] [address] Isidro Woodall DO [address] [facility] 170 [place] [address] 08/07/2025 11:00 AM EDT Appointment [facility] [address] [place] [address] 08/21/2025 2:30 PM EDT Appointment [facility] [address] [place] [address] 08/22/2025 2:30 PM EDT Office Visit [facility] [address] [facility] 170 [place] [phone] Isidro Woodall, DO [address] [facility] 170 [place] [address] 08/23/2025 1:30 PM EDT Office Visit [facility] [address] [facility] 170 [place] [address] Jesenia Peng, TERRITORY ACCOUNT REPRESENTATIVE-PROPERTY STAFF ACCOUNTANT [address] [facility], [address] [place] [address] 09/26/2025 1:30 PM EST Office Visit [facility], A Department of [address] [phone] Neli Clemente MD MPH [address] [place] [phone] 10/13/2025 11:45 AM EST Office Visit [facility] [address] [place] [phone] Duong Johnson DO [address] [place] [address], [address] [place] [address] 10/13/2025 3:15 PM EST Office Visit [facility], A Department of [address] [phone] Ines Uribe PA-C [address] [place] [address], [address] [address] 11/14/2025 12:20 PM EST Office Visit [facility] [address] [address] Ofelia Pierce V, TERRITORY ACCOUNT REPRESENTATIVE-PROPERTY STAFF ACCOUNTANT [address] [facility] [address] [place] [address] 11/21/2025 12:30 PM EST Appointment [facility] [place] [facility] Mammography [address] [place] [phone] documented as of this encounter Goals Goal [...] documented as of this encounter Care Teams Core Blower Operator Relationship Specialty Start Date End Date Jesenia Peng APRN-PROPERTY STAFF ACCOUNTANT [address] [place] [address], [address] [place] [address] PCP - General 03/19/15 documented as of this encounter
--- OUTSIDE RECORDS SUMMARY | 2025-07-12 12:17 | XMS_ITS | Encounter Summary ---
Author Organization [employer] Sys tem Address [id number] [address] [place] [address] Care Team Providers Care Fish Farm Manager Name Role Phone Jesenia Peng LIQUEFIER-PAPER CONTROL CLERK Primary Care Provider Encounter Details Date Type Department Care Team (Late st Contact Info) Description 08/29/2020 [facility]phone [facility] [address] [place] [phone] Anamaria Perkins CMA Social History Tobacco Use [...] have Coronavirus / COVID-19? No / Unsure 08/27/2020 12:54 PM EDT documented as of this encounter Miscellaneous Notes * Telephone Encounter - Anamaria Perkins CMA - 08/29/2020 4:19 PM EDT Beena went to PT today and they stated there was nothing they could do for her since it is a complete tear. They suggested she go to an orthopedic doctor. Anamaria Perkins CMA 08/29/20 1623 * Telephone Encounter - CIARRA Osei - 08/29/2020 4:19 PM EDT Referred to Dr. Adkins. documented in this encounter Plan of Treatment Upcoming Encounters Date Type Department Care Team (Late st Contact Info) Description 07/20/2025 10:45 AM EDT Office Visit [facility], Department of [address] [phone] Cliff Greenfield MD [address] [place] [address], [address] [place] [address] 08/01/2025 2:00 PM EDT Office Visit [facility] Neurology, Department of [address] 101, 102, [address] [place] [address] Trice Stinson MD [address] [place] [address] 101, 102, 103 [place] [address] 08/07/2025 11:00 AM EDT Office Visit [facility] [address] [address] Isidro Woodall DO [address] [facility] [address] [place] [address] 08/07/2025 11:00 AM EDT Appointment [facility] [address] [place] [address] 08/21/2025 2:30 PM EDT Appointment [facility] [address] [place] [address] 08/22/2025 2:30 PM EDT Office Visit [facility] [address] [facility] 170 [place] [address] Isidro Woodall DO [address] [facility] 170 [place] [address] 08/23/2025 1:30 PM EDT Office Visit [facility] [address] [facility] 170 [place] [address] Jesenia Peng, LIQUEFIER-PAPER CONTROL CLERK [address] [facility], [address] [place] [address] 09/26/2025 1:30 PM EST Office Visit [facility], A Department of [address] [phone] Neli Clemente MD MPH [address] [place] [phone] 10/13/2025 11:45 AM EST Office Visit [facility] [address] [place] [phone] Duong Johnson DO [address] [place] [address], [address] [place] [address] 10/13/2025 3:15 PM EST Office Visit [facility], A Department of [address] [phone] Ines Uribe PA-C [address] [place] [address], [address] [place] [address] 11/14/2025 12:20 PM EST Office Visit [facility] [address] [place] [phone] Ofelia Pierce V, LIQUEFIER-PAPER CONTROL CLERK [address] [place] [address] 11/21/2025 12:30 PM EST Appointment [facility] [place] - Mammography [address] [place] [phone] documented as of this encounter Visit Diagnoses [...] documented as of this encounter Care Teams Fish Farm Manager Relationship Specialty Start Date End Date Jesenia Peng, LIQUEFIER-PAPER CONTROL CLERK [address] [facility], [address] [place] [address] PCP - General 03/19/15 documented as of this encounter
--- OUTSIDE RECORDS SUMMARY | 2025-07-12 12:17 | XMS_ITS | Encounter Summary ---
Author Organization [employer] tem Address [id number] [address] [place] [address] Care Team Providers Care Gluing Machine Feeder Name Role Phone Jesenia Peng Primary Care Provider Reason for Referral * Consultation (Routine) - Closed Specialty Diagnoses / Procedures Referred By Madeline giles Referred To Contact Orthopaedic Surgery Diagnoses Tear of right hamstring Jesenia Peng APRN-CNP [address] [facility], [address] [place] [address] Phone: tel: fax: Rikki Adkins MD Phone: tel: fax: Referral ID Status Reason Start Date Expiration Date V isits Requested Visits Authorized [id number] Closed Specialty Services Required 08/29/2020 08/29/2021 1 1 Encounter Details Date Type Department Care Team (Late st Contact Info) Description 08/29/2020 Orders Only [facility] [address] [place] [address] Jesenia Peng APRN-CNP [address] [facility], [address] [place], [place] [id number] Tear of right hamstring (Primary Dx) Social History Tobacco Use Types [...] [facility], A Department of [address] [phone] Cliff Greenfield MD [address] [place] [address], [address] [place] [address] 08/01/2025 2:00 PM EDT Office Visit [facility] Neurology, A Department of [address] 101, 102, 103 [place] [phone] Trice Stinson MD [address] [place] [address] 101, 102, 103 [place] [address] 08/07/2025 11:00 AM EDT Office Visit [facility] [address] [phone] Isidro Woodall DO [address] [facility] 170 [place] [address] 08/07/2025 11:00 AM EDT Appointment [facility] [address] [place] [address] 08/21/2025 2:30 PM EDT Appointment [facility] [address] [place] [address] 08/22/2025 2:30 PM EDT Office Visit [facility] [address] [facility] [address] [place] [address] Isidro Woodall, DO [address] [facility] 170 [place] [address] 08/23/2025 1:30 PM EDT Office Visit [facility] [address] [facility] [address] [place] [address] Jesenia Peng, SUBSORTER-RIVET STICKER [address] [facility], [address] [place] [address] 09/26/2025 1:30 PM EST Office Visit [facility], A Department of [address] [phone] Neli Clemente MD MPH [address] [place] [phone] 10/13/2025 11:45 AM EST Office Visit [facility] Card[facility] [address] [place] [phone] Duong Johnson, [address] [place] [address], [address] [place] [address] 10/13/2025 3:15 PM EST Office Visit [facility], A Department of [address] [phone] Ines Uribe PA-C [address] [place] [address], [address] [place] [address] 11/14/2025 12:20 PM EST Office Visit [facility] [address] [place] [phone] Ofelia Pierce V, SUBSORTER-RIVET STICKER [address] [place] [address] 11/21/2025 12:30 PM EST Appointment [facility] [place] - Mammography [address] [place] [address] Scheduled Referrals Name Type Priority Associated Diagnoses Order Schedule Ambulatory referral to Orthopedic Surgery Outpatient Referral Routine Tear of right hamstring 1 Occurrences starting 08/29/2020 until 02/27/2021 documented as of this encounter Visit Diagnoses Diagnosis Tear of right hamstring- Primary documented in this encounter Additional Health Concerns Infection Onset Date Last Indicated Resolved Time COVID-19 Rule-Out 06/27/2025 06/27/2025 06/27/2025 2:03 PM EDT Assessment Noted Time PHQ-9 Depression Total Score: 4 08/27/20 20 1:00 PM EDT A Body Mass Index follow-up plan has been documented for the patient 08/09/2020 7:22 AM EDT documented as of this encounter Care Teams Gluing Machine Feeder Relationship Specialty Start Date End Date Jesenia Peng, SUBSORTER-RIVET STICKER [address] [facility], [address] [place] [address] PCP - General 03/19/15 documented as of this encounter
--- OUTSIDE RECORDS SUMMARY | 2025-07-12 12:17 | XMS_ITS | Encounter Summary ---
Author Organization [facility] Sys tem Address [id number] [address] [place] [address] Care Team Providers Care Managing Supervisor Name Role Phone Jesenia Peng CLIENT DIRECTOR-STATE TESTED NURSING ASSISTANT Primary Care Provider Encounter Details Date Type Department Care Team (Late st Contact Info) Description 12/10/2023 Orders Only [facility] [address] [place] [phone] Cee Tolentino CMA Social History Tobacco Use Types Packs/Day [...] Description 07/20/2025 10:45 AM EDT Office Visit [facility], A Department of [address] [place] [address] Cliff Greenfield MD [address] [facility], [address] [place] [address] 08/01/2025 2:00 PM EDT Office Visit [facility] Neurology, A Department of [address] 101, 102, 103 [place] [phone] Trice Stinson MD [address] [place] [address] 101, 102, 103 [place] [address] 08/07/2025 11:00 AM EDT Office Visit [facility] [address] [facility] [address] [place] [address] Isidro Woodall DO [address] [facility] 170 [place] [address] 08/07/2025 11:00 AM EDT Appointment [facility] [address] [place] [address] 08/21/2025 2:30 PM EDT Appointment [facility] [address] [place] [address] 08/22/2025 2:30 PM EDT Office Visit [facility] [address] [place] [address] Isidro Woodall DO [address] [place] [address] 08/23/2025 1:30 PM EDT Office Visit [facility] [address] [place] [phone] Jesenia Peng, CLIENT DIRECTOR-STATE TESTED NURSING ASSISTANT [address] [facility], [address] [place] [address] 09/26/2025 1:30 PM EST Office Visit [facility], A Department of [address] [phone] Neli Clemente MD MPH [address] [place] [phone] 10/13/2025 11:45 AM EST Office Visit [facility] Cardiology [address] [place] [phone] Duong Johnson, [address] [place] [address], [address] [place] [address] 10/13/2025 3:15 PM EST [facility], [facility] Department of [address] [place] [phone] Ines Uribe, ALEXC [address] [place] [address], [address] [place] [address] 11/14/2025 12:20 PM EST Office Visit [facility] [address] [facility] [address] [place] [phone] Ofelia Pierce V, CLIENT DIRECTOR-STATE TESTED NURSING ASSISTANT [address] [facility] [address] [place] [address] 11/21/2025 12:30 PM EST Appointment [facility] [address] [place] [phone] documented as of this encounter Goals Goal Patient Goal Type Associated Problems Recent Progress Patient-Stated? Author Discharge with home care General Yes aCrmen Yañez, RN Note: Evaluation of progress towards [...] documented as of this encounter Care Teams Managing Supervisor Relationship Specialty Start Date End Date Jesenia Peng APRN-STATE TESTED NURSING ASSISTANT [address] [place] [address], [address] [place] [address] PCP - General 03/19/15 documented as of this encounter
--- OUTSIDE RECORDS SUMMARY | 2025-07-12 12:17 | XMS_ITS | Encounter Summary ---
Author Organization [facility] Sys tem Address [id number] [address] [place] [address] Care Team Providers Care Histologist Name Role Phone Jesenia Peng TERRAZZO WORKER HELPER-LOOM OPERATOR Primary Care Provider Encounter Details Date Type Department Care Team (Late st Contact Info) Description 02/01/2024 Orders Only [facility] [address] [place] [phone] EllyJaja moy MA Health care maintenance Social History Tobacco Use Types Packs/Day Years [...] Description 07/20/2025 10:45 AM EDT Office Visit [facility] Health Care, A Department of [address] [place] [address] Cliff Greenfield MD [address] [facility], [address] [place] [address] 08/01/2025 2:00 PM EDT Office Visit [facility] Neurology, A Department of [address] 101, [address], 103 [place] [phone] Trice Stinson MD [address] [place] [address] 101, 102, 103 [place] [address] 08/07/2025 11:00 AM EDT Office Visit [facility] [address] [facility] 170 [place] [address] Isidro Woodall DO [address] [facility] 170 [place] [address] 08/07/2025 11:00 AM EDT Appointment [facility] [address] [place] [address] 08/21/2025 2:30 PM EDT Appointment [facility] [address] [place] [address] 08/22/2025 2:30 PM EDT Office Visit [facility] [address] [facility] 170 [place] [address] Isidro Woodall DO [address] [facility] 170 [place] [address] 08/23/2025 1:30 PM EDT Office Visit [facility] [address] [facility] 170 [place] [phone] Jesenia Peng, TERRAZZO WORKER HELPER-LOOM OPERATOR [address] [facility], [address] [place] [address] 09/26/2025 1:30 PM EST Office Visit [facility], A Department of [address] [phone] Neli Clemente MD MPH [address] [place] [phone] 10/13/2025 11:45 AM EST Office Visit [facility] Card[facility] [address] [place] [phone] Duong Johnson, [address] [place] [address], [address] [place] [address] 10/13/2025 3:15 PM EST Office Visit [facility] Care, A Department of [address] [place] [phone] Ines Uribe, PA-C [address] [place] [address], [address] [place] [address] 11/14/2025 12:20 PM EST Office Visit [facility] [address] [facility] 170 [place] [phone] Ofelia Pierce V, TERRAZZO WORKER HELPER-LOOM OPERATOR [address] [facility] [address] [place] [address] 11/21/2025 12:30 PM EST Appointment [facility] [address] [place] [phone] documented as of this encounter Goals Goal Patient Goal Type Associated Problems Recent Progress Patient-Stated? Author Discharge with home care General Yes Carmen Yañez, RN Note: Evaluation of progress towards goal: [facility] home [facility] documented as of this encounter Procedures Procedure Name Priority Date/Time Associated Diagnosis Comments CBC WITH AUTO DIFFERENTIAL Routine 01/26/2024 Health care maintenance URINALYSIS Routine 01/26/2024 Health care maintenance LIPID PROFILE Routine 01/26/2024 Health care maintenance COMPREHENSIVE METABOLIC PANEL Routine 01/26/2024 Health care maintenance documented in this encounter Results * CBC auto differential (01/26/2024) 01/26/2024 Jesenialinsey Peng TERRAZZO WORKER HELPER-LOOM OPERATOR LAB BLOOD ORDERABLES Fi nal Result Performing Organization Address [facility] de Phone Number SUNQUEST * (ABNORMAL) Comprehensive metabolic panel (01/26/2024) External Co2 / Carbon Dioxide 33(A) 19 - 31 SUNQUEST 01/26/2024 Jesenialinsey Peng TERRAZZO WORKER HELPER-LOOM OPERATOR LAB BLOOD ORDERABLES Fi nal Result Performing Organization Address [facility] [address] [facility] Co de Phone Number SUNQUEST * Lipid profile (01/26/2024) External Cholesterol 173 <200 SUNQUEST External Cholesterol:Hdl 2.9 <4.44 SUNQUEST External Hdl Cholesterol 60 >39 SUNQUEST External Ldl (Calc) 100 <100 SUNQUEST External Triglycerides 66 <149 SUNQUEST External Very Low Lipoprotein 13 <30 SUNQUEST Ldl/Hdl Ratio 1.7 <3.2 SUNQUEST 01/26/2024 Jesenia Yogesh Peng TERRAZZO WORKER HELPER-LOOM OPERATOR LAB BLOOD ORDERABLES Fi nal Result Performing Organization Address [facility] Co de Phone Number SUNQUEST * Urinalysis (01/26/2024) Color YELLOW SUNQUEST Appearance [...] Occasional None Seen, Occasional /LPF SUNQUEST 01/26/2024 us Jesenia LAFLEUR URINE ORDERABLES Final Result SUNQUEST documented in this encounter Visit Diagnoses Diagnosis Health care maintenance documented in this encounter Additional Health Concerns Infection Onset Date Last Indicated Resolved Time COVID-19 Rule-Out 06/27/2025 06/27/2025 06/27/2025 2:03 PM EDT Assessment Noted Time PHQ-9 Depression Total Score: 12 023 11:37 AM EST A Body Mass Index follow-up plan has been documented for the patient 10/28/2023 12:18 PM EST documented as of this encounter Care Teams Histologist Relationship Specialty Start Date End Date Jesenia Peng APRN-CNP [address] [place] [address], [address] [place] [address] PCP - General 03/19/15 documented as of this encounter
--- OUTSIDE RECORDS SUMMARY | 2025-07-12 12:17 | XMS_ITS | Encounter Summary ---
Author Organization [facility] [email or web address] Sys tem Address [facility]-[id number] [address] [place] [address] Care Team Providers Care Jacquard Loom Weaver Name Role Phone Jesenia Peng VARNISH FINISHER-REFRIGERATOR GLAZIER Primary Care Provider Encounter Details Date Type Department Care Team (Late st Contact Info) Description 01/14/2022 Orders Only [facility] [address] [place] [phone] Anamaria Perkins CMA Healthcare maintenance (Primary Dx) Social History Tobacco Use Types Packs/Day Years Used Date Smoking Tobacco: Former Cigarettes Q uit: 2018 Smokeless Tobacco: Never Alcohol Use Standard Drinks/Week Comments Yes 1 (1 standard drink = 0.6 oz pur e alcohol) daily PHQ-2 Answer Date Recorded Total Score 1 01/17/2022 Childcare Answer Date Recorded Childcare Unknown 04/11/2019 [...] was confirmed or suspected to have Coronavirus/COVID-19? No / Unsure 01/17/2022 11:02 AM EST documented as of this encounter Functional Status documented as of this encounter Plan of Treatment Upcoming Encounters Date Type Department Care Team (Late st Contact Info) Description 07/20/2025 10:45 AM EDT Office Visit [facility] Care, A Department of [address] [place] [address] Cliff Greenfield MD [address] [facility], [address] [place] [address] 08/01/2025 2:00 PM EDT Office Visit [facility] Neurology, A Department of [address] 101, [address], [address] [place] [address] Trice Stinson MD [address] [place] [address] 101, 102, 103 [place] [address] 08/07/2025 11:00 AM EDT Office Visit [facility] [address] [facility] 170 [place] [address] Isidro Woodall DO [address] [facility] 170 [place] [address] 08/07/2025 11:00 AM EDT Appointment [facility] [address] [place] [address] 08/21/2025 2:30 PM EDT Appointment [facility] [address] [place] [address] 08/22/2025 2:30 PM EDT Office Visit [facility] [address] [facility] 170 [place] [address] Isidro Woodall, DO [address] [facility] 170 [place] [address] 08/23/2025 1:30 PM EDT Office Visit [facility] [address] [facility] [facility] 170 [place] [address] Jesenia Peng, VARNISH FINISHER-REFRIGERATOR GLAZIER [address] [facility], [address] [place] [address] 09/26/2025 1:30 PM EST Office Visit [facility], A Department of [address] [phone] Neli Clemente [place] MPH [address] [place] [phone] 10/13/2025 11:45 AM EST Office Visit [facility] [address] [place] [phone] Duong Johnson, DO [address] [place] [address], [address] [place] [address] 10/13/2025 3:15 PM EST [facility] Visit [facility], A Department of [address] [place] [phone] Ines Uribe, PA-C [address] [place] [address], [address] [place] [address] 11/14/2025 12:20 PM EST Office Visit [facility] [address] [facility] 170 [place] [phone] Ofelia Pierce V, VARNISH FINISHER-REFRIGERATOR GLAZIER [address] [facility] [address] [place] [address] 11/21/2025 12:30 PM EST Appointment [facility] [place] - Mammography [address] [place] [phone] documented as of this encounter Results * Urinalysis (01/14/2022) 01/14/2022 us Jesenia LAFLEUR URINE ORDERABLES Final Result SUNQUEST documented in this encounter Visit Diagnoses Diagnosis Healthcare maintenance- Primary documented in this encounter Additional Health Concerns Infection Onset Date Last Indicated Resolved Time COVID-19 Rule-Out 06/27/2025 06/27/2025 06/27/2025 2:03 PM EDT Assessment Noted Time PHQ-9 Depression Total Score: 7 07/24/20 21 8:13 PM EDT A Body Mass Index follow-up plan has been documented for the patient 08/09/2020 7:22 AM EDT documented as of this encounter Care Teams Jacquard Loom Weaver Relationship Specialty Start Date End Date Jesenia Peng APRN-CNP [address] [place] [address], [address] [place] [address] PCP - General 03/19/15 documented as of this encounter
--- OUTSIDE RECORDS SUMMARY | 2025-07-12 12:17 | XMS_ITS | Encounter Summary ---
Author Organization [facility] Sys tem Address [facility][id number] [address] [place] [address] Care Team Providers Care Caterpillar Operator Name Role Phone Jesenia Peng MACHINE STAKER-OUTSOLES CHANNEL OPENER Primary Care Provider Encounter Details Date Type Department Care Team (Late st Contact Info) Description 04/09/2022 Orders Only [facility] [address] [place] [phone] Elisabeth Sun MACHINE STAKEROUTSOLES CHANNEL OPENER [address] [place] [address] Chronic heart failure with preserved ejection fraction ([facility]-H[facility]) Social History Tobacco Use Types [...] suspected to have Coronavirus/COVID-19? No / Unsure 03/25/2022 1:17 PM EDT documented as of this encounter Plan of Treatment Upcoming Encounters Date Type Department Care Team (Late st Contact Info) Description 07/20/2025 10:45 AM EDT Office Visit [facility] Health Care, A Department of [address] [place] [address] [place] [address] [place] [address], [address] [place] [address] 08/01/2025 2:00 PM EDT Office Visit [facility] Neurology, A Department of [address] 101, [address], 103 [place] [address] Trice Stinson MD [address] [place] [address] 101, 102, 103 [place] [address] 08/07/2025 11:00 AM EDT Office Visit [facility] [address] [address] Isidro Woodall, DO [address] [address] 08/07/2025 11:00 AM EDT Appointment [facility] [address] [place] [address] 08/21/2025 2:30 PM EDT Appointment [facility] [address] [place] [address] 08/22/2025 2:30 PM EDT Office Visit [facility] [address] [facility] 170 [place] [address] Isidro Woodall, DO [address] [facility] 170 [place] [address] 08/23/2025 1:30 PM EDT Office Visit [facility] [address] [facility] 170 [place] [phone] Jesenia Peng, MACHINE STAKER-OUTSOLES CHANNEL OPENER 28[address] [facility], [address] [place] [address] 09/26/2025 1:30 PM EST Office Visit [facility], A Department of [address] [place] [address] Neli Clemente MD MPH [address] [place] [phone] 10/13/2025 11:45 AM EST Office Visit [facility] [address] [place] [address] 202 [place] [phone] Duong Johnson, DO [address] [place] [address], [address] [place] [address] 10/13/2025 3:15 PM EST Office Visit [facility], A Department of [address] [place] [phone] Ines Uribe, PA-C [address] [place] [address], 103 [place] [address] 11/14/2025 12:20 PM EST Office Visit [facility] [address] [facility] 170 [place] [phone] Ofelia Pierce V, MACHINE STAKER-OUTSOLES CHANNEL OPENER [address] [facility] [address] [place] [address] 11/21/2025 12:30 PM EST Appointment [facility] [place] - Mammography [address] [place] [address] documented as of this encounter Goals Goal Patient Goal Type Associated Problems Recent Progress Patient-Stated? Author Discharge with home care General Yes Carmen Yañez, RN Note: Evaluation of progress towards goal: [facility] home with [facility] documented as of this encounter Procedures Procedure Name Priority Date/Time Associated Diagnosis Comments MAGNESIUM Routine 04/04/2022 Chronic heart failure with preserved ejection fraction (CMS-HCC) BASIC METABOLIC PANEL Routine 04/04/2022 Chronic heart failure with preserved ejection fraction (CMS-HCC) documented in this encounter Results * Basic Metabolic Panel (04/04/2022) 04/04/2022 Elisabeth Sun APRN-OUTSOLES CHANNEL OPENER LAB BLOOD ORDERABLES Fi nal Result Performing Organization Address [facility] de Phone Number SUNQUEST * Magnesium (04/04/2022) 04/04/2022 Elisabeth Sun APRN-[facility] LAB BLOOD ORDERABLES Fi nal Result Performing Organization Address [facility] de Phone Number SUNQUEST documented in this encounter Visit Diagnoses Diagnosis Chronic heart failure with preserved ejection fraction (CMS-HCC) documented in this encounter Additional Health Concerns Infection Onset Date Last Indicated Resolved Time COVID-19 Rule-Out 06/27/2025 06/27/2025 06/27/2025 2:03 PM EDT Assessment Noted Time PHQ-9 Depression Total Score: 5 03/10/20 22 10:27 AM EDT A Body Mass Index follow-up plan has been documented for the patient 06/26/2022 6:02 AM EDT documented as of this encounter Care Teams Caterpillar Operator Relationship Specialty Start Date End Date Jesenia Peng APRN-CNP [address] [place] [address], [address] [place] [address] PCP - General 03/19/15 documented as of this encounter
--- OUTSIDE RECORDS SUMMARY | 2025-07-12 12:17 | XMS_ITS | Encounter Summary ---
Author Organization [facility] Sys tem Address [facility]-[id number] [address] [place] [address] Care Team Providers Care Mixed Signal Design Engineer Name Role Phone Jesenia Peng REAL ESTATE SERVICES ADMINISTRATOR-FREELANCE COPYWRITER Primary Care Provider Encounter Details Date Type Department Care Team (Late Contact Info) Description 09/19/2020 Orders [facility] [address] [facility] [address] [place] [address] Jesenia Peng, REAL ESTATE SERVICES ADMINISTRATOR-FREELANCE COPYWRITER [address] [facility], [address] [place], [place] [phone] Social History Tobacco Use Types Packs/Day Years [...] Description 07/20/2025 10:45 AM EDT Office Visit [facility] Care, A Department of [facility] [address] [place] [address] 103 [place] [address] Cliff Greenfield MD [address] [facility], [address] [place] [address] 08/01/2025 2:00 PM EDT [facility], A Department of [address] 101, [address], [address] [place] [phone] Trice Stinson MD [address] [place] [address] 101, 102, 103 [place] [address] 08/07/2025 11:00 AM EDT Office Visit [facility] [address] [facility] 170 [place] [address] Isidro Woodall DO [address] [facility] 170 [place] [address] 08/07/2025 11:00 AM EDT Appointment [facility] [address] [place] [address] 08/21/2025 2:30 PM EDT Appointment [facility] [address] [place] [address] 08/22/2025 2:30 PM EDT Office Visit [facility] [address] [facility] 170 [place] [address] Isidro Woodall, DO [address] [facility] 170 [place] [address] 08/23/2025 1:30 PM EDT Office Visit [facility] [address] [facility] [address] [place] [phone] Jesenia Peng, REAL ESTATE SERVICES ADMINISTRATOR-FREELANCE COPYWRITER [address] [facility], [address] [place] [address] 09/26/2025 1:30 PM EST Office Visit [facility], A Department of [address] [phone] Neli Clemente MD MPH [address] [place] [phone] 10/13/2025 11:45 AM EST Office Visit [facility] [address] [place] [phone] Duong Johnson, DO [address] [place] [address], [address] [place] [address] 10/13/2025 3:15 PM EST Office Visit [facility], A Department of [address] [place] [phone] Ines Uribe, PA-C [address] [place] [address], [address] [place] [address] 11/14/2025 12:20 PM EST Office Visit [facility] [address] [facility] 170 [place] [phone] Ofelia Pierce V, REAL ESTATE SERVICES ADMINISTRATOR-FREELANCE COPYWRITER [address] [facility] [address] [place] [address] 11/21/2025 12:30 PM EST Appointment [facility] [place] - Mammography [address] [place] [phone] documented as of this encounter Visit Diagnoses [...] documented as of this encounter Care Teams Mixed Signal Design Engineer Relationship Specialty Start Date End Date Jesenia Peng APRN-FREELANCE COPYWRITER [address] [place] [address], [address] [place] [address] PCP - General 03/19/15 documented as of this encounter
--- OUTSIDE RECORDS SUMMARY | 2025-07-12 12:17 | XMS_ITS | Encounter Summary ---
Author Organization [facility] tem Address [id number] [address] [place] [address] Care Team Providers Care Fiberglass Container Winding Operator Name Role Phone Jesenia Peng SCHEDULE PLANNING MANAGER-PSYCHOLOGICAL SCIENCE PROFESSOR Primary Care Provider Encounter Details Date Type Department Care Team (Late Contact Info) Description 09/27/2020 [facility] [address] [facility] 170 [place] [address] Anamaria Perkins CMA Social History Tobacco Use [...] have Coronavirus / COVID-19? No / Unsure 09/27/2020 1:50 PM EST documented as of this encounter Plan of Treatment Upcoming Encounters Date Type Department Care Team (Late Contact Info) Description 07/20/2025 10:45 AM EDT Office Visit [facility], A Department of [facility] [address] [place] [address] [place] [address] [place] [address], [address] [place] [address] 08/01/2025 2:00 PM EDT Office Visit [facility], A Department of [facility] [address] 101, [address], [address] [place] [address] Trice Stinson MD [address] [place] [address] [address], [address] [place] [address] 08/07/2025 11:00 AM EDT Office Visit [facility] [address] [facility] [address] [place] [address] Isidro Woodall DO [address] [facility] 170 [place] [address] 08/07/2025 11:00 AM EDT Appointment [facility] [address] [place] [address] 08/21/2025 2:30 PM EDT Appointment [facility] [address] [place] [address] 08/22/2025 2:30 PM EDT Office Visit [facility] [address] [facility] [address] [place] [address] Isidro Woodall, DO [address] [facility] [address] [place] [address] 08/23/2025 1:30 PM EDT Office [facility] [address] [facility] [address] [place] [address] Jesenia Peng, SCHEDULE PLANNING MANAGER-PSYCHOLOGICAL SCIENCE PROFESSOR [address] [facility], [address] [place] [address] 09/26/2025 1:30 PM EST Office Visit [facility], A Department of [address] [place] [phone] Neli Clemente MD MPH [address] [place] [address] 202 [place] [address] 10/13/2025 11:45 AM EST Office Visit [facility] [address] [place] [address] 202 [place] [address] Duong Johnson, [address] [place] [address], [address] [place] [address] 10/13/2025 3:15 PM EST Office Visit [facility], A Department of [address] [place] [phone] Ines Uribe PA-C [address] [place] [address], [address] [place] [address] 11/14/2025 12:20 PM EST Office Visit [facility] [address] [facility] 170 [place] [phone] Ofelia Pierce V, SCHEDULE PLANNING MANAGER-PSYCHOLOGICAL SCIENCE PROFESSOR [address] [place] [address] 11/21/2025 12:30 PM EST Appointment [facility] [place] - Mammography [address] [place] [address] documented as of this encounter Visit Diagnoses Not on filedocumented in this encounter Additional Health Concerns Infection Onset Date Last Indicated Resolved Time COVID-19 Rule-Out 06/27/2025 06/27/2025 06/27/2025 2:03 PM EDT Assessment Noted Time PHQ-9 Depression Total Score: 4 10/19/20 20 1:00 PM EDT A Body Mass Index follow-up plan has been documented for the patient 08/09/2020 7:22 AM EDT documented as of this encounter Care Teams Fiberglass Container Winding Operator Relationship Specialty Start Date End Date Jesenia Peng APRN-PSYCHOLOGICAL SCIENCE PROFESSOR [address] [place] [address], [address] [place] [address] PCP - General 03/19/15 documented as of this encounter
--- OUTSIDE RECORDS SUMMARY | 2025-07-12 12:17 | XMS_ITS | Encounter Summary ---
Author Organization [facility] tem Address [id number] [address] [place] [address] Care Team Providers Care Mat Machine Operator Name Role Phone Jesenia Peng IMMIGRATION COORDINATOR-FIRE PREVENTION CHIEF Primary Care Provider Encounter Details Date Type Department Care Team (Late st Contact Info) Description 09/25/[address] [facility] [address] [place] [address] Anamaria Perkins CMA Social History Tobacco Use [...] Telephone Encounter - Anamaria Perkins CMA - 09/25/2020 10:[address] Adkins, he said she has a partial tear on the left side. Extremely painful. She is going to PT for Parkinson's and that really aggravates it. Should she hold off on the PT for now? She has PT tomorrow and appt with you on . Anamaria Perkins CMA 09/25/20 1027 * Telephone Encounter - CIARRA Osei - 09/25/2020 10:20 AM EST Yes, if it makes it worse. * Telephone Encounter - Anamaria Perkins CMA - 09/25/2020 10:20 AM EST Notified patient of your recommendations. documented in this encounter Plan of Treatment Upcoming Encounters Date Type Department Care Team (Late st Contact Info) Description 07/20/2025 10:45 AM EDT Office Visit [facility], A Department of [address] [place] [phone] Cliff Greenfield MD [address] [place] [address], [address] [place] [address] 08/01/2025 2:00 PM EDT Office Visit [facility] Neurology, A Department of [address] 101, 102, [address] [place] [address] Trice Stinson MD [address] [place] [address] 101, 102, 103 [place] [address] 08/07/2025 11:00 AM EDT Office Visit [facility] [address] [facility] 170 [place] [phone] Iisdro Woodall, DO [address] [facility] 170 [place] [address] 08/07/2025 11:00 AM EDT Appointment [facility] Rad[facility] [address] [place] [address] 08/21/2025 2:30 PM EDT Appointment [facility] [address] [place] [address] 08/22/2025 2:30 PM EDT Office Visit [facility] [address] [facility] 170 [place] [address] Isidro Woodall, DO [address] [address] 08/23/2025 1:30 PM EDT Office Visit [facility] [address] [address] Jesenia Peng, IMMIGRATION COORDINATOR-FIRE PREVENTION CHIEF [address] [facility], [address] [place] [address] 09/26/2025 1:30 PM EST [facility] Rhe[facility], A Department of [address] [phone] Neli Clemente MD MPH [address] [place] [address] 10/13/2025 11:45 AM EST Office Visit [facility] Cardiology [address] [place] [phone] Duong Johnson, DO [address] [place] [address], [address] [place] [address] 10/13/2025 3:15 PM EST [facility], [facility] Department of [facility] [address] [place] [address] Ines Uribe PA-C [address] [place] [address], [address] [place] [address] 11/14/2025 12:20 PM EST Office Visit [facility] [address] [facility] 170 [place] [address] Ofelia Pierce V IMMIGRATION COORDINATOR-FIRE PREVENTION CHIEF [address] [facility] [address] [place] [address] 11/21/2025 12:30 PM EST Appointment [facility] [place] - Mammography [address] [place] [phone] documented as of this encounter Visit Diagnoses [...] documented as of this encounter Care Teams Mat Machine Operator Relationship Specialty Start Date End Date Jesenia Peng, IMMIGRATION COORDINATOR-FIRE PREVENTION CHIEF [address] [place] [address], [address] [place] [address] PCP - General 03/19/15 documented as of this encounter
--- OUTSIDE RECORDS SUMMARY | 2025-07-12 12:17 | XMS_ITS | Encounter Summary ---
Author Organization [facility] tem Address [id number] [address] [place] [address] Care Team Providers Care Clinical Mental Health Counselor Name Role Phone Jesenia Peng EVIDENCE CUSTODIAN-CHIEF AIRLINE RADIO OPERATOR Primary Care Provider Encounter Details Date Type Department Care Team (Late st Contact Info) Description 03/19/2022 Orders Only [facility] [address] [place] [phone] External, Scanning Provider Social History Tobacco Use [...] suspected to have Coronavirus/COVID-19? No / Unsure 03/10/2022 9:53 AM EDT documented as of this encounter Plan of Treatment Upcoming Encounters Date Type Department Care Team (Late Contact Info) Description 07/20/2025 10:45 AM EDT Office Visit [facility], A Department of [address] [place] [address] Cliff Greenfield MD [address] [facility], [address] [place] [address] 08/01/2025 2:00 PM EDT Office Visit [facility] Neurology, A Department of [address] 101, 102, [address] [place] [address] Trice Stinson MD [address] [place] [address] 101, 102, 103 [place] [address] 08/07/2025 11:00 AM EDT Office Visit [facility] [address] [facility] 170 [place] [address] Isidro Woodall, DO [address] [facility] 170 [place] [address] 08/07/2025 11:00 AM EDT Appointment [facility] [address] [place] [address] 08/21/2025 2:30 PM EDT Appointment [facility] [address] [place] [address] 08/22/2025 2:30 PM EDT Office Visit [facility] [address] [facility] [address] [place] [address] Isidro Woodall, DO [address] [facility] 170 [place] [address] 08/23/2025 1:30 PM EDT Office Visit [facility] [address] [facility] [address] [place] [address] Jesenia Peng, EVIDENCE CUSTODIAN-CHIEF AIRLINE RADIO OPERATOR [address], [address] [place] [address] 09/26/2025 1:30 PM EST [facility], A Department of [address] [place] [address] Neli Clemente MD MPH [address] [place] [address] 202 [place] [address] 10/13/2025 11:45 AM EST Office Visit [facility] Card[facility] [address] [place] [address] 202 [place] [address] Duong Johnson, DO [address] [place] [address], [address] [place] [address] 10/13/2025 3:15 PM EST Office Visit [facility], A Department of [address] [place] [phone] Ines Uribe, SOPHY-C [address] [place] [address], [address] [place] [address] 11/14/2025 12:20 PM EST Office Visit [facility] [address] [facility] 170 [place] [address] Ofelia Pierce V, EVIDENCE CUSTODIAN-CHIEF AIRLINE RADIO OPERATOR [address] [facility] [address] [place] [address] 11/21/2025 12:30 PM EST Appointment [facility] [address] [place] [phone] documented as of this encounter Goals Goal Patient Goal Type Associated Problems Recent Progress Patient-Stated? Author Discharge with home care General Yes Carmen Yañez, RN Note: Evaluation of progress towards goal: [facility] home [facility] documented as of this encounter Procedures Procedure Name Priority Date/Time Associated Diagnosis Comments VASC VENOUS DUPLEX LOWER BILATERAL Routine 02/07/2022 VASC ARTERIAL DUPLEX LOWER BILATERAL Routine 02/07/2022 documented in this encounter Results * Vas art duplex lwr bilateral (02/07/2022) Anatomical Region Laterality Modality Vascular Bilateral Ultrasound us Scanning Provider External CV VASCULAR ORDERABLE S Final Result * Vas venous duplex lwr bilateral (02/07/2022) Anatomical Region Laterality Modality Vascular Bilateral Ultrasound us Scanning Provider External CV VASCULAR ORDERABLE S Final Result documented in this encounter Visit [...] documented as of this encounter Care Teams Clinical Mental Health Counselor Relationship Specialty Start Date End Date Jesenia Peng APRN-JONEL [address] [place] [address], [address] [place] [address] PCP - General 03/19/15 documented as of this encounter
--- OUTSIDE RECORDS SUMMARY | 2025-07-12 12:17 | XMS_ITS | Encounter Summary ---
Author Organization [facility] Address [id number] [address] [place] [address] Care Team Providers Care Special Delivery Messenger Name Role Phone Jesenia Peng PRINTER MAINTAINER-HIGHER EDUCATION ADMINISTRATOR Primary Care Provider Encounter Details Date Type Department Care Team (Late st Contact Info) Description 12/21/2023 Orders Only [facility] [address] [facility] [address] [place] [address] Jesenia Peng PRINTER MAINTAINER-HIGHER EDUCATION ADMINISTRATOR [address] [facility], [address] [place], [place] [phone] Primary hypertension Social History Tobacco Use Types Packs/Day [...] Office Visit [facility], A Department of [address] [place] [address] [place] [address] [place] [address], [address] [place] [address] 08/01/2025 2:00 PM EDT Office Visit [facility] Neurology, A Department of [address] 101, 102, 103 [place] [phone] Trice Stinson MD [address] [place] [address] 101, 102, 103 [place] [address] 08/07/2025 11:00 AM EDT Office Visit [facility] [address] [address] Isidro Woodall, DO [address] [address] 08/07/2025 11:00 AM EDT Appointment [facility] Radiology [address] [place] [address] 08/21/2025 2:30 PM EDT Appointment [facility] [address] [place] [address] 08/22/2025 2:30 PM EDT Office Visit [facility] [address] [facility] [address] [place] [address] Isidro Woodall, DO [address] [facility] 170 [place] [address] 08/23/2025 1:30 PM EDT Office Visit [facility] [address] [facility] [address] [place] [address] Jesenia Peng, PRINTER MAINTAINER-HIGHER EDUCATION ADMINISTRATOR [address] [facility], [address] [place] [address] 09/26/2025 1:30 PM EST Office Visit [facility], A Department of [address] [place] [address] Neli Clemente MD MPH [address] [place] [phone] 10/13/2025 11:45 AM EST Office Visit [facility] Cardiology [address] [place] [address] 202 [place] [address] Duong Johnson, DO [address] [place] [address], [address] [place] [address] 10/13/2025 3:15 PM EST Office Visit [facility], A Department of [address] [place] [address] Ines Uribe, PA-C [address] [place] [address], [address] [place] [address] 11/14/2025 12:20 PM EST Office Visit [facility] [address] [facility] 170 [place] [address] Ofelia Pierce V, PRINTER MAINTAINER-HIGHER EDUCATION ADMINISTRATOR [address] [facility] [address] [place] [address] 11/21/2025 12:30 PM EST Appointment [facility] [address] [place] [phone] documented as of this encounter Goals Goal Patient Goal Type Associated Problems Recent Progress Patient-Stated? Author Discharge with home care General Yes Carmen Yañez, RN Note: Evaluation of progress towards goal: [facility] home with [facility] documented as of this encounter Visit Diagnoses Diagnosis Primary hypertension Unspecified essential hypertension documented in this encounter Additional Health Concerns Infection Onset Date Last Indicated Resolved Time COVID-19 Rule-Out 06/27/2025 06/27/2025 06/27/2025 2:03 PM EDT Assessment Noted Time PHQ-9 Depression Total Score: 023 11:37 AM EST A Body Mass Index follow-up plan has been documented for the patient 10/28/2023 12:18 PM EST documented as of this encounter Care Teams Special Delivery Messenger Relationship Specialty Start Date End Date Jesenia Peng, RADHA-HIGHER EDUCATION ADMINISTRATOR [address] [place] [address], [address] [place] [address] PCP - General 03/19/15 documented as of this encounter
--- OUTSIDE RECORDS SUMMARY | 2025-07-12 12:17 | XMS_ITS | Encounter Summary ---
Author Organization [facility] tem Address [id number] [address] [place] [address] Care Team Providers Care Nanny Babysitter Name Role Phone Jesenia Peng TYPE COPYIST-LAMP DEVELOPER Primary Care Provider Encounter Details Date Type Department Care Team (Late Contact Info) Description 09/14/2020 Orders Only [facility] [address] [place] [phone] Ref Prov, [place] [address] Social History Tobacco Use Types Packs/Day Years [...] 10:45 AM EDT Office Visit [facility], A Department of [facility] [address] [place] [address] [address] [place] [address] [place] [address] [place] [address], [address] [place] [address] 08/01/2025 2:00 PM EDT Office Visit [facility] Neu[facility], A Department of [address] 101, 102, 103 [place] [address] Trice Stinson MD [address] [place] [address] [address], 102, 103 [place] [address] 08/07/2025 11:00 AM EDT Office Visit [facility] [address] [facility] 170 [place] [address] Isidro oWodall, DO [address] [facility] 170 [place] [address] 08/07/2025 11:00 AM EDT Appointment [facility] [address] [place] [place] [address] 08/21/2025 2:30 PM EDT Appointment [facility] [address] [place] [place] [address] 08/22/2025 2:30 PM EDT Office Visit [facility] [address] [facility] 170 [place] [address] Isidro Woodall, DO [address] [facility] 170 [place] [address] 08/23/2025 1:30 PM EDT Office Visit [facility] [address] [facility] [address] [place] [address] Jesenia Peng, TYPE COPYIST-LAMP DEVELOPER [address] [facility], [address] [place] [address] 09/26/2025 1:30 PM EST Office Visit [facility] Rhe[facility], A Department of [address] [place] [address] Neli Clemente MD MPH [address] [place] [address] [address] [place] [address] 10/13/2025 11:45 AM EST Office Visit [facility] Cardiology [address] [place] [address] 202 [place] [address] Duong Johnson, [address] [facility], [address] [place] [address] 10/13/2025 3:15 PM EST Office Visit [facility], A Department of [address] [place] [address] Ines Uribe, ALEXC [address] [place] [address], [address] [place] [address] 11/14/2025 12:20 PM EST Office Visit [facility] [address] [facility] 170 [place] [address] Ofelia Pierce V, TYPE COPYIST-LAMP DEVELOPER [address] [facility] [address] [place] [address] 11/21/2025 12:30 PM EST Appointment [facility] [place] - Mammography [address] [place] [address] documented as of this encounter Procedures Procedure Name Priority Date/Time Associated Diagnosis Comments MAMMOGRAPHY Routine 09/11/2020 documented in this encounter Results * HM MAMMOGRAPHY (09/11/2020) Anatomical Region Laterality Modality Other us Not [...] documented as of this encounter Care Teams Nanny Babysitter Relationship Specialty Start Date End Date Jesenia Peng APRN-LAMP DEVELOPER [address] [place] [address], [address] [place] [address] PCP - General 03/19/15 documented as of this encounter
--- OUTSIDE RECORDS SUMMARY | 2025-07-12 12:17 | XMS_ITS | Encounter Summary ---
Author Organization [facility] Sys tem Address [id number] [address] [place] [address] Care Team Providers Care Pouncing Machine Operator Name Role Phone Jesenia Peng TRAINING INTERN-AWNING MAKER Primary Care Provider Encounter Details Date Type Department Care Team (Late st Contact Info) Description 01/27/2022 Orders Only [facility] [address] [place] [address] Nadiya Higgins, IRENE Open wound of left lower leg, subsequent encounter; Health maintenance examination; Healthcare maintenance Social History Tobacco Use Types Packs/Day [...] Description 07/20/2025 10:45 AM EDT Office Visit [facility], A Department of [facility] [address] [place] [address] [address] [place] [address] Cliff Greenfield MD [address] [facility], [address] [place] [address] 08/01/2025 2:00 PM EDT Office Visit [facility] Neurology, A Department of [address] 101, 102, [address] [place] [address] Trice Stinson MD [address] [place] [address] 101, 102, 103 [place] [address] 08/07/2025 11:00 AM EDT Office Visit [facility] [address] [facility] [address] [place] [address] Isidro Woodall DO [address] [facility] 170 [place] [address] 08/07/2025 11:00 AM EDT Appointment [facility] [address] [place] [address] 08/21/2025 2:30 PM EDT Appointment [facility] [address] [place] [address] 08/22/2025 2:30 PM EDT Office Visit [facility] [address] [facility] [address] [place] [address] Isidro Woodall DO [address] [facility] 170 [place] [address] 08/23/2025 1:30 PM EDT Office Visit [facility] [address] [facility] [address] [place] [address] Jesenia Peng, TRAINING INTERN-AWNING MAKER [address] [facility], [address] [place] [address] 09/26/2025 1:30 PM EST Office Visit [facility], A Department of [address] [phone] Neli Clemente MD MPH [address] [place] [phone] 10/13/2025 11:45 AM EST Office Visit [facility] Card[facility] [address] [place] [phone] Duong Johnson, [address] [place] [address], [address] [place] [address] 10/13/2025 3:15 PM EST Office Visit [facility] Care, A Department of [address] [place] [address] Ines Uribe, PA-C [address] [place] [address], [address] [place] [address] 11/14/2025 12:20 PM EST Office Visit [facility] [address] [facility] [address] [place] [address] Ofelia Pierce V, TRAINING INTERN-AWNING MAKER [address] [facility] [address] [place] [address] 11/21/2025 12:30 PM EST Appointment [facility] [address] [place] [phone] documented as of this encounter Goals Goal Patient Goal Type Associated Problems Recent Progress Patient-Stated? Author Discharge with home care General Yes Carmen Yañez, RN Note: Evaluation of progress towards goal: [facility] home with & [facility] documented as of this encounter Procedures Procedure Name Priority Date/Time Associated Diagnosis Comments ERYTHROCYTE SEDIMENTATION RATE (ESR) Routine 01/14/2022 Health maintenance examination CBC WITH AUTO DIFFERENTIAL Routine 01/14/2022 Health maintenance examination URINALYSIS Routine 01/14/2022 Healthcare maintenance LIPID PROFILE Routine 01/14/2022 Health maintenance examination COMPREHENSIVE METABOLIC PANEL Routine 01/14/2022 Health maintenance examination documented in this encounter Results * (ABNORMAL) ESR (01/14/2022) SED RATE {PL} 54(A) 0 - 30 [facility] 01/14/2022 Jesenia Peng TRAINING INTERN-AWNING MAKER LAB BLOOD ORDERABLES Fi nal Result Performing Organization Address City/[facility]/ZIP Co de Phone Number SUNQUEST * Urinalysis (01/14/2022) 01/14/2022 Jesenia Peng TRAINING INTERN-AWNING MAKER URINE ORDERABLES Final Result Performing Organization Address [facility]/ZIP Co de Phone Number SUNQUEST * (ABNORMAL) Comprehensive metabolic panel (01/14/2022) External Blood Urea Nitrogen Bun 28(A) 5 - 27 [facility] 01/14/2022 Jesenia Peng TRAINING INTERN-AWNING MAKER LAB BLOOD ORDERABLES Fi nal Result [facility]QUEST * CBC auto differential (01/14/2022) 01/14/2022 Jesenia Peng APRN-JONEL LAB BLOOD ORDERABLES Fi nal Result [facility]QUEST * Lipid profile (01/14/2022) External Cholesterol 182 150 - 200 [facility] External Cholesterol:Hdl 2.2 1.0 - 5.0 [facility] External Hdl Cholesterol 82 >39 [facility] External Ldl (Calc) 92 <130 [facility] External Triglycerides 40 27 - 150 [facility] External Very Low Lipoprotein 8 0 - 30 [facility] 01/14/2022 Jesenia Peng APRN-JONEL LAB BLOOD ORDERABLES Fi nal Result Performing Organization Address [facility]/ZIP Co de Phone Number [facility] documented in this encounter Visit Diagnoses Diagnosis Open wound of left lower leg, subsequent encounter Health maintenance examination Unspecified general medical examination Healthcare maintenance documented in this encounter Additional Health Concerns Infection Onset Date Last Indicated Resolved Time COVID-19 Rule-Out 06/27/2025 06/27/2025 06/27/2025 2:03 PM EDT Assessment Noted Time PHQ-9 Depression Total Score: 1 01/18/20 22 2:11 PM EST A Body Mass Index follow-up plan has been documented for the patient 08/09/2020 7:22 AM EDT documented as of this encounter Care Teams Pouncing Machine Operator Relationship Specialty Start Date End Date Jesenia Peng APRN-CNP [address] [place] [address], [address] [place] [address] PCP - General 03/19/15 documented as of this encounter
--- OUTSIDE RECORDS SUMMARY | 2025-07-12 12:17 | XMS_ITS | Encounter Summary ---
Author Organization [employer] Sys tem Address [facility] [place]-[id number] [address] [place] [address] Care Team Providers Care Spectacle Truer Name Role Phone Jesenia Peng ROCKET ASSEMBLY OPERATOR-GREENHOUSE STAFF Primary Care Provider Reason for Visit * Reason Onset Date Comments Med Refill 04/01/2022 Encounter Details Date Type Department Care Team (Late st Contact Info) Description 04/01/2022 Refill [facility] [address] [place] [address] Anamaria Perkins CMA Social History Tobacco Use [...] Description 07/20/2025 10:45 AM EDT Office Visit [facility], A Department of [facility] [address] [place] [address] 103 [place] [address] Cliff Greenfield MD [address] [facility], [address] [place] [address] 08/01/2025 2:00 PM EDT Office Visit [facility] Neurology, A Department of [address] 101, 102, 103 [place] [phone] Trice Stinson MD [address] [place] [address] 101, 102, 103 [place] [address] 08/07/2025 11:00 AM EDT Office Visit [facility] [address] [facility] 170 [place] [address] Isidro Woodall DO [address] [facility] 170 [place] [address] 08/07/2025 11:00 AM EDT Appointment [facility] Rad[facility] [address] [place] [address] 08/21/2025 2:30 PM EDT Appointment [facility] [address] [place] [address] 08/22/2025 2:30 PM EDT Office Visit [facility] [address] [facility] 170 [place] [address] Isidro Woodall DO [address] [facility] 170 [place] [address] 08/23/2025 1:30 PM EDT Office Visit [facility] [address] [facility] 170 [place] [phone] Jesenia Peng, ROCKET ASSEMBLY OPERATOR-GREENHOUSE STAFF [address] [facility], [address] [place] [address] 09/26/2025 1:30 PM EST Office Visit [facility], A Department of [address] [phone] Neli Clemente MD MPH [address] [place] [place] [phone] 10/13/2025 11:45 AM EST Office Visit [facility] Cardiology [address] [place] [phone] Duong Johnson, [address] [place] [address], [address] [place] [address] 10/13/2025 3:15 PM EST Office Visit [facility], A Department of [address] [place] [address] Ines Uribe, PA-C [address] [place] [address], [address] [place] [address] 11/14/2025 12:20 PM EST Office Visit [facility] [address] [facility] 170 [place] [phone] Ofelia Pierce V, ROCKET ASSEMBLY OPERATOR-GREENHOUSE STAFF [address] [facility] [address] [place] [address] 11/21/2025 12:30 PM EST Appointment [facility] [place] [facility] [address] [place] [phone] documented as of this encounter Goals Goal [...] documented as of this encounter Care Teams Spectacle Truer Relationship Specialty Start Date End Date Jesenia Peng APRN-JONEL [address] [place] [address], [address] [place] [address] PCP - General 03/19/15 documented as of this encounter
--- OUTSIDE RECORDS SUMMARY | 2025-07-12 12:17 | XMS_ITS | Encounter Summary ---
Author Organization [employer] Sys tem Address [id number] [address] [place] [address] Care Team Providers Care Sustainability Consultant Name Role Phone Jesenia Peng SCHOOL ADMINISTRATOR-MATERIAL CREW SUPERVISOR Primary Care Provider Reason for Visit * Reason Onset Date Comments Med Refill 04/08/2022 Encounter Details Date Type Department Care Team (Late st Contact Info) Description 04/08/2022 Refill [facility] [address] [place] [address] Anamaria Perkins CMA Social History [facility], [facility] Department of [facility] [address] [place] [address] 103 [place] [address] Cliff Greenfield MD [address] [facility], [address] [place] [address] 08/01/2025 2:00 PM EDT Office Visit [facility] Neurology, A Department of [address] 101, 102, 103 [place] [phone] Trice Stinson MD [address] [place] [address] 101, 102, 103 [place] [address] 08/07/2025 11:00 AM EDT Office Visit [facility] [address] [facility] 170 [place] [address] Isidro Woodall DO [address] [facility] 170 [place] [address] 08/07/2025 11:00 AM EDT Appointment [facility] [address] [place] [address] 08/21/2025 2:30 PM EDT Appointment [facility] [address] [place] [address] 08/22/2025 2:30 PM EDT Office Visit [facility] [address] [facility] 170 [place] [address] Isidro Woodall DO [address] [facility] 170 [place] [address] 08/23/2025 1:30 PM EDT Office Visit [facility] [address] [facility] 170 [place] [phone] Jesenia Peng, SCHOOL ADMINISTRATOR-MATERIAL CREW SUPERVISOR [address] [facility], [address] [place] [address] 09/26/2025 1:30 PM EST Office Visit [facility], A Department of [address] [phone] Neli Clemente MD MPH [address] [place] [phone] 10/13/2025 11:45 AM EST Office Visit [facility] Card[facility] [address] [place] [phone] Duong Johnson, [address] [place] [address], [address] [place] [address] 10/13/2025 3:15 PM EST Office Visit [facility], A Department of [address] [place] [phone] Ines Uribe, PA-C [address] [place] [address], [address] [place] [address] 11/14/2025 12:20 PM EST Office Visit [facility] [address] [facility] 170 [place] [phone] Ofelia Pierce V, SCHOOL ADMINISTRATOR-MATERIAL CREW SUPERVISOR [address] [facility] [address] [place] [address] 11/21/2025 12:30 PM EST Appointment [facility] [place] [facility] [address] [place] [phone] documented as of this encounter Goals Goal [...] documented as of this encounter Care Teams Sustainability Consultant Relationship Specialty Start Date End Date Jesenia Peng APRN-JONEL [address] [place] [address], [address] [place] [address] PCP - General 03/19/15 documented as of this encounter
--- OUTSIDE RECORDS SUMMARY | 2025-07-12 12:17 | XMS_ITS | Encounter Summary ---
Author Organization [employer] Address [facility][id number] [address] [place] [address] Care Team Providers Care Tapping Machine Operator Automatic Name Role Phone Jesenia Peng RUBBER TIRE AND TUBES SUPERVISOR-WALLPAPER INSPECTOR AND SHIPPER Primary Care Provider Encounter Details Date Type Department Care Team (Late st Contact Info) Description 02/13/2022 Telephone [facility] [address] [place] [phone] Nadiya Higgins CMA Social History Tobacco Use Types Packs/Day [...] suspected to have Coronavirus/COVID-19? No / Unsure 02/12/2022 11:50 AM EDT documented as of this encounter Miscellaneous Notes * Telephone Encounter - Nadiya Higgins CMA - 02/13/2022 10:17 AM EDT Beena called and she said that she got out of the hospital 2 weeks ago, and she was started on new medications. She said she is now ganging weight rapidly she said on 02/12/22 she weighted 102.0 and today on 02/13/22 she weights 104 and she said her stomach feels very bloated. * Telephone Encounter - CIARRA Osei - 02/13/2022 10:17 AM EDT Spoke with Beena; she denies shortness of breath; weight gain, stomach bloating. I offered to move her appointment up to Thursday next week, she will leave it on Thursday for now and call with an update on Thursday. I also asked her to touch base with cardiology as she has a follow up there later this month, post hospital, for diastolic heart failure. She verbalizes understanding. documented in this encounter Plan of Treatment Upcoming Encounters Date Type Department Care Team (Late st Contact Info) Description 07/20/2025 10:45 AM EDT Office Visit [facility], A Department of [address] 103 [place] [address] Cliff Greenfield MD [address] [place] [address], [address] [place] [address] 08/01/2025 2:00 PM EDT Office Visit [facility] Neurology, A Department of [address] 101, 102, 103 [place] [phone] Trice Stinson MD [address] [place] [address] 101, 102, 103 [place] [address] 08/07/2025 11:00 AM EDT Office Visit [facility] [address] [facility] 170 [place] [address] Isidro Woodall, DO [address] [facility] 170 [place] [address] 08/07/2025 11:00 AM EDT Appointment [facility] [address] [place] [address] 08/21/2025 2:30 PM EDT Appointment [facility] [address] [place] [address] 08/22/2025 2:30 PM EDT Office Visit [facility] [address] [address] Isidro Woodall, DO [address] [address] 08/23/2025 1:30 PM EDT Office Visit [facility] [address] [phone] Jesenia Peng, RUBBER TIRE AND TUBES SUPERVISOR-WALLPAPER INSPECTOR AND SHIPPER [address] [facility], [address] [place] [address] 09/26/2025 1:30 PM EST Office Visit [facility], A Department of [address] [address] Neli Clemente MD MPH [address] [place] [phone] 10/13/2025 11:45 AM EST Office Visit [facility] Cardiology [address] [place] [phone] Duong Johnson, DO [address] [place] [address], [address] [place] [address] 10/13/2025 3:15 PM EST Office Visit [facility], A Department of [address] 103 [place] [address] Ines Uribe PA-C [address] [place] [address], [address] [place] [address] 11/14/2025 12:20 PM EST Office Visit [facility] [address] [facility] [address] [place] [phone] Ofelia Pierce V, RUBBER TIRE AND TUBES SUPERVISOR-WALLPAPER INSPECTOR AND SHIPPER [address] [facility] [address] [place] [address] 11/21/2025 12:30 PM EST Appointment [facility] [place] - Mammography [address] [place] [address] documented as of this encounter Goals Goal [...] documented as of this encounter Care Teams Tapping Machine Operator Automatic Relationship Specialty Start Date End Date Jesenia Peng, RUBBER TIRE AND TUBES SUPERVISOR-WALLPAPER INSPECTOR AND SHIPPER [address] [facility], [address] [place] [address] PCP - General 03/19/15 documented as of this encounter
--- OUTSIDE RECORDS SUMMARY | 2025-07-12 12:17 | XMS_ITS | Encounter Summary ---
Author Organization [facility] [employer] Address [id number] [address] [place] [address] Care Team Providers Care Continuous Yarn Dyeing Machine Operator Name Role Phone Jesenia Peng DATAWAREHOUSE DEVELOPER-BOOK CLEANER Primary Care Provider Reason for Visit * Reason Comments Med Refill Encounter Details Date Type Department Care Team (Late st Contact Info) Description 01/31/2025 Refill [facility] Rheumatology [address] [place] [phone] Neli Clemente MD MPH [address] [place] [phone] Neck pain; Muscle tension pain Social [...] got money to buy more. Never True 01/26/2025 Within the past 12 months th e food we bought just didn't last and we didn't have money to get more. Never True 01/26/2025 Purpose - Life Answer Date Recorded Purpose [...] Health [facility], A Department of [address] [place] [address] [place] [address] [place] [address], [address] [place] [address] 08/01/2025 2:00 PM EDT Office Visit [facility] Neurology, A Department of [address] 101, 102, 103 [place] [phone] Trice Stinson MD [address] [place] [address] 101, 102, 103 [place] [address] 08/07/2025 11:00 AM EDT Office Visit [facility] [address] [facility] 170 [place] [address] Isidro Woodall, DO [address] [facility] 170 [place] [address] 08/07/2025 11:00 AM EDT Appointment [facility] Radiology [address] [facility] [place] [place] [address] 08/21/2025 2:30 PM EDT Appointment [facility] [address] [facility] [place] [address] 08/22/2025 2:30 PM EDT Office Visit [facility] [address] [place] [address] Isidro Woodall, DO [address] [place] [address] 08/23/2025 1:30 PM EDT Office Visit [facility] [address] [facility] 170 [place] [phone] Jesenia Peng, DATAWAREHOUSE DEVELOPER-BOOK CLEANER [address] [facility], [address] [place] [address] 09/26/2025 1:30 PM EST Office Visit [facility], A Department of [address] [place] [phone] Neli Clemente MD MPH [address] [place] [phone] 10/13/2025 11:45 AM EST Office Visit [facility] Cardiology [address] [place] [address] 202 [place] [phone] Duong Johnson, [address] [place] [address], [address] [place] [address] 10/13/2025 3:15 PM EST Office Visit [facility] Care, A Department of [address] [place] [phone] Ines Uribe, PA-C [address] [place] [address], [address] [place] [address] 11/14/2025 12:20 PM EST Office Visit [facility] [address] [facility] 170 [place] [phone] Ofelia Pierce V, DATAWAREHOUSE DEVELOPER-BOOK CLEANER [address] [facility] [address] [place] [address] 11/21/2025 12:30 PM EST Appointment [facility] [place] - Mammography [address] [place] [address] documented as of this encounter [...] Time PHQ-9 Depression Total Score: 0 01/27/20 25 10:32 AM EDT A Body Mass Index follow-up plan has been documented for the patient 01/26/2025 3:09 PM EDT documented as of this encounter Care Teams Continuous Yarn Dyeing Machine Operator Relationship Specialty Start Date End Date Jesenia Peng APRN-BOOK CLEANER [address] [place] [address], [address] [place] [address] PCP - General 03/19/15 documented as of this encounter
--- OUTSIDE RECORDS SUMMARY | 2025-07-12 12:17 | XMS_ITS | Encounter Summary ---
Author Organization [employer] Address [id number] [address] [place] [address] Care Team Providers Care Child Monitor Name Role Phone Jesenia Peng SENIOR COURTROOM CLERK-VP DESIGN Primary Care Provider Encounter Details Date Type Department Care Team (Late st Contact Info) Description 02/17/2022 Telephone [facility] [address] [place] [phone] Nadiya Higgins CMA Social History Tobacco Use Types Packs/Day Years Used Date Smoking Tobacco: Former Cigarettes Q uit: 2018 Smokeless Tobacco: Never Alcohol Use Standard Drinks/Week Comments Yes 1 (1 standard drink = 0.6 oz pur e alcohol) daily PHQ-2 Answer Date Recorded Total Score 0 02/19/2022 Childcare Answer Date Recorded Childcare Unknown 04/11/2019 [...] suspected to have Coronavirus/COVID-19? No / Unsure 02/19/2022 1:28 PM EDT documented as of this encounter Miscellaneous Notes * Telephone Encounter - Nadiya Higgins CMA - 02/17/2022 11:53 AM EDT Beena called and said she had a colon cleans done and she now weights 101. * Telephone Encounter - CIARRA Osei - 02/17/2022 11:53 AM EDT Ok, will see her on the . documented in this encounter Plan of Treatment Upcoming Encounters Date Type Department Care Team (Late st Contact Info) Description 07/20/2025 10:45 AM EDT Office Visit [facility], A Department of [address] [place] [address] Cliff Greenfield MD [address] [place] [address], [address] [place] [address] 08/01/2025 2:00 PM EDT Office Visit [facility] Neurology, A Department of [address] 101, 102, [address] [place] [address] Trice Stinson MD [address] [place] [address] 101, 102, 103 [place] [address] 08/07/2025 11:00 AM EDT Office Visit [facility] [address] [facility] [facility] 170 [place] [phone] Isidro Woodall DO [address] [facility] 170 [place] [address] 08/07/2025 11:00 AM EDT Appointment [facility] Rad[facility] [address] [place] [address] 08/21/2025 2:30 PM EDT Appointment [facility] [address] [place] [address] 08/22/2025 2:30 PM EDT Office Visit [facility] [address] [facility] 170 [place] [address] Isidro Woodall, DO 2865 [facility] 170 [place] [address] 08/23/2025 1:30 PM EDT Office Visit [facility] [address] [facility] 170 [place] [phone] Jesenia Peng, SENIOR COURTROOM CLERK-VP DESIGN [address] [facility], [address] [place] [address] 09/26/2025 1:30 PM EST Office Visit [facility], A Department of [address] [phone] Neli Clemente MD MPH [address] [place] [phone] 10/13/2025 11:45 AM EST Office Visit [facility] Cardiology [address] [place] [phone] Duong Johnson, DO [address] [place] [address], [address] [place] [address] 10/13/2025 3:15 PM EST Office Visit [facility], A Department of [address] [phone] Ines Uribe PARaphaelC [address] [place] [address], [address] [address] 11/14/2025 12:20 PM EST Office Visit [facility] [address] [place] [phone] Ofelia Pierce V, SENIOR COURTROOM CLERK-VP DESIGN [address] [facility] [address] [place] [address] 11/21/2025 12:30 PM EST Appointment [facility] [place] - Mammography [address] [place] [phone] documented as of this encounter Goals Goal [...] documented as of this encounter Care Teams Child Monitor Relationship Specialty Start Date End Date Jesenia Peng, SENIOR COURTROOM CLERK-VP DESIGN [address] [facility], [address] [place] [address] PCP - General 03/19/15 documented as of this encounter
--- OUTSIDE RECORDS SUMMARY | 2025-07-12 12:17 | XMS_ITS | Encounter Summary ---
Author Organization [facility] [employer] Address [id number] [address] [place] [address] Care Team Providers Care Refrigerating Technician Name Role Phone Jesenia Peng APRN-OPERATOR SPECIALIST COMMUNICATIONS Primary Care Provider Reason for Visit * Reason Comments Med Refill Encounter Details Date Type Department Care Team (Late st Contact Info) Description 12/18/2023 Refill [facility] [address] [facility] [address] [place] [phone] Jesenia Peng [facility]ANCISC[facility] CH[facility] [address] [facility], [address] [place], [place] [phone] Primary hypertension Social History Tobacco Use Types [...] Description 07/20/2025 10:45 AM EDT Office Visit [facility], A Department of [address] [place] [address] [place] [address] [place] [address], [address] [place] [address] 08/01/2025 2:00 PM EDT Office Visit [facility] Neurology, A Department of [address] 101, 102, 103 [place] [phone] Trice Stinson MD [address] [place] [address] 101, 102, 103 [place] [address] 08/07/2025 11:00 AM EDT Office Visit [facility] [address] [facility] 170 [place] [address] Isidro Woodall, DO [address] [facility] 170 [place] [address] 08/07/2025 11:00 AM EDT Appointment [facility] Rad[facility] [address] [place] [address] 08/21/2025 2:30 PM EDT Appointment [facility] [address] [place] [address] 08/22/2025 2:30 PM EDT Office Visit [facility] [address] [facility] 170 [place] [address] Isidro Woodall DO [address] [facility] 170 [place] [address] 08/23/2025 1:30 PM EDT Office Visit [facility] [address] [facility] 170 [place] [phone] Jesenia Peng, ABRASIVE SAWYER-OPERATOR SPECIALIST COMMUNICATIONS [address] [facility], [address] [place] [address] 09/26/2025 1:30 PM EST Office Visit [facility], A Department of [address] [phone] Neli Clemente MD MPH [address] [place] [phone] 10/13/2025 11:45 AM EST Office Visit [facility] Cardiology [address] [place] [phone] Duong Johnson, DO [address] [place] [address], [address] [place] [address] 10/13/2025 3:15 PM EST Office Visit [facility], A Department of [address] [place] [phone] Ines Uribe PA-C [address] [place] [address], [address] [place] [address] 11/14/2025 12:20 PM EST Office Visit [facility] [address] [facility] 170 [place] [phone] Ofelia Pierce V, ABRASIVE SAWYER-OPERATOR SPECIALIST COMMUNICATIONS [address] [facility] [place] [address] 11/21/2025 12:30 PM EST Appointment [facility] [place] - Mammography [address] [place] [address] documented as of this encounter [...] documented as of this encounter Care Teams Refrigerating Technician Relationship Specialty Start Date End Date Jesenia Peng, ABRASIVE SAWYER-OPERATOR SPECIALIST COMMUNICATIONS [address] [place] [address], [address] [place] [address] PCP - General 03/19/15 documented as of this encounter
--- OUTSIDE RECORDS SUMMARY | 2025-07-12 12:18 | XMS_ITS | Encounter Summary ---
Author Organization [facility] Address [id number] [address] [place] [address] Care Team Providers Care Donor Technician Name Role Phone Jesenia Peng Primary Care Provider Reason for Referral * Cardiology (Routine) - Closed Specialty Diagnoses / Procedures Referred By Contac t Referred To Contact Diagnoses Chest pressure At risk for coronary artery disease Procedures Nuc stress Lexiscan Jesenia Peng APRN-CNP [address] [place] [address], [address] [place] [address] Phone: tel: fax: Referral ID Status Reason Start Date Expiration Date Visits Re quested Visits Authorized [id number] Closed 11/14/2020 11/14/2021 1 1 * Cardiology (Routine) - Closed Specialty Diagnoses / Procedures Referred By Madeline giles Referred To Contact Diagnoses Chest pressure Dyspnea on exertion Procedures Echo complete W/O contrast Jesenia Peng APRN-CNP [address] [place] [address], [address] [place] [address] Phone: tel: fax: Referral ID Status Reason Start Date Expiration Date Visits Re quested Visits Authorized [id number] Closed 11/14/2020 11/14/2021 1 1 Encounter Details Date Type Department Care Team (Late st Contact Info) Description 11/14/2020 Orders Only [facility] [address] [facility] [address] [place] [phone] Jesenia Peng, THERMOGRAPH OPERATOR-UNDERTAKER ASSISTANT [address] [facility], [address] [place] [address] Chest pressure (Primary Dx); Dyspnea on exertion; At risk for coronary artery disease Social History Tobacco Use Types Packs/Day [...] have Coronavirus / COVID-19? No / Unsure 11/13/2020 2:34 PM EST documented as of this encounter Plan of Treatment Upcoming Encounters Date Type Department Care Team (Late st Contact Info) Description 07/20/2025 10:45 AM EDT Office Visit [facility], A Department of [address] [place] [address] Cliff Greenfield MD [address] [place] [address], [address] [place] [address] 08/01/2025 2:00 PM EDT Office Visit [facility] Neurology, A Department of [address] [place] [phone] Trice Stinson MD [address] [place] [address] [address] [place] [address] 08/07/2025 11:00 AM EDT Office Visit [facility] [address] [facility] [address] [place] [address] Isidro Woodall, DO [address] [address] 08/07/2025 11:00 AM EDT Appointment [facility] [address] [place] [address] 08/21/2025 2:30 PM EDT Appointment [facility] [address] [place] [address] 08/22/2025 2:30 PM EDT Office Visit [facility] [address] [address] Isidro Woodall, DO [address] [address] 08/23/2025 1:30 PM EDT Office Visit [facility] [address] [phone] Jesenia Peng, THERMOGRAPH OPERATOR-UNDERTAKER ASSISTANT [address] [facility], [address] [place] [address] 09/26/2025 1:30 PM EST Office Visit [facility], A Department of [facility] [address] [place] [phone] Neli Clemente MD MPH [address] [address] 10/13/2025 11:45 AM EST Office Visit [facility] [address] [place] [address] [place] [address] Duong Johnson, [address] [facility], [address] [place] [address] 10/13/2025 3:15 PM EST Office Visit [facility], A Department of [address] [place] [phone] Ines Uribe PA-C [address] [facility], [address] [place] [address] 11/14/2025 12:20 PM EST Office Visit [facility] [address] [place] [phone] Ofelia Pierce V, THERMOGRAPH OPERATOR-UNDERTAKER ASSISTANT [address] [place] [address] 11/21/2025 12:30 PM EST [facility]ment [facility] [address] [place] [address] documented as of this encounter Results * Echo complete W/O contrast (11/28/2020 10:46 AM EST) LA volume 25.00 cm3 XCELERA LA dimension 2.50 cm XCELERA AV peak colby 70.90 cm/s XCELERA AV peak gradient 2.00 mmHg XCELERA Aortic root 2.30 cm XCELERA IVS 0.69 0.6 - 1.1 cm XCELERA LVIDd 3.73 cm XCELERA LVIDs 2.21 cm XCELERA LVOT diameter 1.60 cm XCELERA LVOT peak colby 62.20 cm/s XCELERA LVOT peak gradient 2.00 mmHg XCELERA PW 0.82 0.6 - 1.1 cm XCELERA MV TDI E' (lateral) 7.46 cm/s XCELERA MV TDI E' (medial) 5.48 cm/s XCELERA FS 41 28 - 44 % XCELERA FS 41 28 - 44 % XCELERA Interventricular Septum/Left Ventricular PWD by 2D 0.85 XCELERA E wave deceleration time 148.00 ms XCELERA E/A ratio 1.20 XCELERA Left Atrium to Aortic Root Ratio 1.09 XCELERA MV E/E' Tissue Velocity Medial 14.90 XCELERA E/E' ratio 10.90 XCELERA LVOT mean gradient 1.00 mmHg XCELERA LVOT peak VTI 13.60 cm XCELERA LVOT stroke volume 27.00 mL XCELERA MV Peak A Colby 69.10 cm/s XCELERA MV Peak E Colby 81.40 cm/s XCELERA AV mean gradient 1.00 mmHg XCELERA AV VTI 17.30 cm XCELERA AV valve area 1.58 cm2 XCELERA Est. RA pressure 3 mmHg XCELERA RA area 10.5 cm2 XCELERA RV Peak Systolic Pressure 23 mmHg XCELERA Anatomical Region Laterality Modality Chest N/A Ultrasound Narrative 11/28/2020 4:22 PM EST Left Ventricle: Systolic function is normal with an ejection fraction of 55-60%. Left Ventricle: No segmental wall motion abnormalities. Aortic Valve: Probable trileaflet aortic valve. The leaflets are mildly thickened. Mitral Valve: The leaflets are mildly thickened. Left Ventricle Left ventricle appears normal in size. Wall thickness is normal. Systolic function is normal with an ejection fraction of 55-60%. No segmental wall motion abnormalities. Lateral E' is 7.46 cm/s. Medial E' is 5.48 cm/s. Right Ventricle Right ventricular size appears normal. Systolic function is normal. Left Atrium Left atrium is normal in size. Right Atrium Right atrium is normal in size. The right atrial area is 10.5 cm2. IVC/SVC IVC appears normal. Mitral Valve The leaflets are mildly thickened. There is no regurgitation or stenosis. Tricuspid Valve Tricuspid valve appears to be normal. There is mild regurgitation. There is no evidence of tricuspid valve stenosis. RVSP calculated at 23 mmHg. RVSP is based on RA pressure of 3 mmHg. Aortic Valve Probable trileaflet aortic valve. The leaflets are mildly thickened. There is no regurgitation or stenosis. Pulmonic Valve Pulmonic valve structure is grossly normal. There is no regurgitation or stenosis. Ascending Aorta The aortic root is normal in size. Pericardium There is no pericardial effusion. Study Details A complete echo was performed using complete 2D, color flow Doppler and spectral Doppler. The study had technical difficulties. us Jesenia Peng THERMOGRAPH OPERATOR-UNDERTAKER ASSISTANT CV ECHO ORDERABLES Katherine l Result * Nuc stress Lexiscan (11/28/2020 10:24 AM EST) Anatomical Region Laterality Modality Chest N/A Nuclear Medicine 11/28/2020 10:2 9 AM EST Narrative 11/28/2020 10:35 AM EST CLINICAL INFORMATION: Other chest pain Indication: * Evaluation of extent and severity of coronary artery disease * Risk stratification-post myocardial infarction/preoperative assessment/general assessment of acute chest pain * Myocardial viability Technique: Stress Dose: 31.3 mCi Tc99m Sestamibi. Resting Dose: 10.7 mCi Tc99m Sestamibi. Stress and rest myocardial SPECT perfusion exam was performed with gating of the left ventricle. The patient was not physically stressed. Patient was pharmacologically stressed with 0.4 mg of IV Lexiscan. Supine and prone SPECT imaging was performed. CT attenuation correction not performed. Attenuation artifact was not present. COMPARISON: No relevant prior studies available. Findings: Mild asymmetrical distribution of isotope throughout the left ventricle. Anterior defect which appears more prominent on the anterior wall on the stress view. There is also some extension into the septal wall. The findings are nontransmural. Left ventricular ejection fraction is 77% Wall motion is decreased anteriorly. TID: Negative. CT findings: IMPRESSION: * Abnormal stress examination with a nontransmural anterior septal defect closer to the apex appearing more prominent on the stress images concerning for superimposed ischemia or infarction. * Moderate to high risk for a cardiovascular event. * Ejection fraction maintained. For reference: Low risk for cardiovascular event a-normal or small myocardial perfusion defect with stress <10% total myocardium b-no high risk findings such as severe LV dysfunction c-normal study Intermediate risk for cardiovascular event a-LV resting dysfunction EF 35-50% b-moderate sized perfusion defect without high risk features (10-20% total myocardium) High risk for cardiovascular event a-EF <35% at rest b-severe exercise induced LV dysfunction c-stress induced large perfusion defect >20% myocardium d-multiple moderate sized stress induced perfusion defects e-large, fixed defect with LV dilation f-stress induced moderate perfusion defect with LV dilation Finalized by Ashok Casey MD on 11/28/2020 10:35 AM Procedure Note Ashok Casey MD - 11/28/2020 CLINICAL INFORMATION: Other chest pain Indication: * Evaluation of extent and severity of coronary artery disease * Risk stratification-post myocardial infarction/preoperativeassessment/general assessment of acute chest pain * Myocardial viability Technique: Stress Dose: 31.3 mCi Tc99m Sestamibi. Resting Dose: 10.7 mCi Tc99m Sestamibi. Stress and rest myocardial SPECT perfusion exam was performed with gatingof the left ventricle. The patient was not physically stressed. Patient was pharmacologicallystressed with 0.4 mg of IV Lexiscan. Supine and prone SPECT imaging wasperformed. CT attenuation correction not performed. Attenuation artifact was not present. COMPARISON: No relevant prior studies available. Findings: Mild asymmetrical distribution of isotope throughout the left ventricle.Anterior defect which appears more prominent on the anterior wall on thestress view. There is also some extension into the septal wall. The findings arenontransmural. Left ventricular ejection fraction is 77% Wall motion is decreased anteriorly. TID: Negative. CT findings: IMPRESSION: * Abnormal stress examination with a nontransmural anterior septal defectcloser to the apex appearing more prominent on the stress imagesconcerning for superimposed ischemia or infarction. * Moderate to high risk for a cardiovascular event. * Ejection fraction maintained. For reference: Low risk for cardiovascular event a-normal or small myocardial perfusion defect with stress <10%total myocardium b-no high risk findings such as severe LV dysfunction c-normal study Intermediate risk for cardiovascular event a-LV resting dysfunction EF 35-50% b-moderate sized perfusion defect without high risk features(10-20% total myocardium) High risk for cardiovascular event a-EF <35% at rest b-severe exercise induced LV dysfunction c-stress induced large perfusion defect >20% myocardium d-multiple moderate sized stress induced perfusion defects e-large, fixed defect with LV dilation f-stress induced moderate perfusion defect with LV dilation Finalized by Ashok Casey MD on 11/28/2020 10:35 AM Jesenia LAFLEUR CV STRESS ORDERABLES Fi nal Result documented in this encounter Visit Diagnoses Diagnosis Chest pressure- Primary Other chest pain Dyspnea on exertion Other dyspnea and respiratory abnormality At risk for coronary artery disease Chest pressure Other chest pain At risk for coronary artery disease Chest pressure Other chest pain At risk for coronary artery disease Chest pressure Other chest pain Dyspnea on exertion Other dyspnea and respiratory abnormality documented in this encounter Additional Health Concerns Infection Onset Date Last Indicated Resolved Time COVID-19 Rule-Out 06/27/2025 06/27/2025 06/27/2025 2:03 PM EDT Assessment Noted Time PHQ-9 Depression Total Score: 4 08/27/20 1:00 PM EDT A Body Mass Index follow-up plan has been documented for the patient 08/09/2020 7:22 AM EDT documented as of this encounter Care Teams Donor Technician Relationship Specialty Start Date End Date Jesenia Peng APRN-CNP [address] [place] [address], [address] [place] [address] PCP - General 03/19/15 documented as of this encounter
--- NOTE | 2025-07-12 12:59 | PM.CN ---
Consult Note: HPI Data of Consult Patient: known to practice within the last 3 years Consult date: 07/12/25 Requesting Physician: Maribel Interiano NP Primary Care Provider: Non-Staff Physician, MD Consult Narrative Reason for consult: neck pain Narrative: Beena Madera a pleasant 74 year old female presents for evaluation of chronic neck pain. pt completed cervical xray prior to todays appointment, no results available from radiology at this time, however i reviewed the xrays which are consistent with multilevel ddd and facet arthropathy. pt was previously recieving cervical TFESIs with benefit at prior pain management. pt notes worsening neck pain over the last year, has failed to benefit from > 6 weeks of PT/HEP, heat, ice, tylenol, nsaids. notes pain 8/10 increasing to 10/10 with turning head, activity, and lifting. denies fall/injury. denies numbness, tingling, weakness of BUE. cc:: CC: Maribel Interiano NP Review of Systems ROS Musculoskeletal Reports: neck pain PFSH PFSH Medical History (Updated 07/12/25 @ 13:32 by Maribel Interiano NP) Parkinsons disease ?G20 - Parkinson's disease (ICD-10) Emphysema/COPD ?J43.9 - Emphysema, unspecified (ICD-10) Low back pain ?M54.50 - Low back pain, unspecified (ICD-10) Meds Home Medications and Allergies Home Medications ?Medication ?Instructions ?Recorded ?Confirmed ?Type amantadine HCl 100 mg tablet 100 mg PO BID 06/29/23 09/29/23 History baclofen 5 mg tablet 5 mg PO Q8H PRN muscle spasm 06/29/23 09/29/23 History carbidopa ER 25 mg-levodopa 100 mg 1 tab PO QID 06/29/23 09/29/23 History tablet,extended release clonazepam 0.5 mg tablet 0.5 mg PO BID 06/29/23 09/29/23 History furosemide 20 mg tablet 20 mg PO BID 06/29/23 09/29/23 History losartan 25 mg tablet 25 mg PO DAILY 06/29/23 09/29/23 History pramipexole 0.25 mg tablet 0.25 mg PO TID 06/29/23 09/29/23 History rasagiline 1 mg tablet 1 mg PO DAILY 06/29/23 09/29/23 History zolpidem 5 mg tablet 5 mg PO DAILY 06/29/23 09/29/23 History Allergies Allergy/AdvReac Type Severity Reaction Status Date / Time No Known Drug Allergies Allergy Verified 09/15/23 08:08 Exam Constitutional Documenting provider has reviewed patient's vital signs: yes Common normals: no apparent distress, oriented x3, healthy appearing, alert and well nourished General appearance: cooperative HENMT Common normals: normocephalic, hearing grossly normal bilaterally and moist oral mucous membranes Head and scalp: normocephalic Eye Common normals: PERRL Pupil: PERRL Neck & C-Spine Common normals: full ROM General: normal visual inspection Cervical spine: cervical ROM abnormal, pain with cervical ROM and cervical spine tenderness C3, C4 and C5 Other: negative spurlings sensation intact BUE strength 5/5 in BUE Chest Common normals: inspection of chest normal Respiratory Common normals: normal respiratory effort, no retractions and no use of accessory muscles Neuro Common normals: oriented x3 Sensorium/orientation: alert Psych Common normals: mental status grossly normal, thought process normal, cooperative, affect normal, speech normal and activity/motor behavior normal Speech: normal speech Thought process: normal thought process Results Additional Findings Additional findings: If on a controlled substance or opioids, I have checked an [place] report on this patient and there are no aberrancies noted in the prescribing history.??If on a controlled substance or opioid a drug screen was completed and reviewed within the last year, and if there has not been a drug screen completed we ordered one today to monitor higher risk, state monitored pain medication use. As part of providing excellent, safe, comprehensive care, the following was completed at our patient's visit: 1. A medication reconciliation and review to ensure accurate knowledge of current/active medications, including asking our patients to inform us about any [id number]-wccvvmn medications or herbal remedies/nutritional supplements/alternative remedies. 2. A review to specifically ensure our patients have had annual screening for screening for depression, screening for tobacco use, and screening for unhealthy alcohol use. For concerning screenings had a discussion with the patient, provided patient education, and recommended follow-up with primary care provider when appropriate. If patient noted with a risk of falling, they received education on strength, gait, and balance training to prevent future risk of falling. Portions of this note may have been carried over from the previous visit and updated as appropriate. Please note this office utilizes paper charting in addition to the electronic medical record. A list of current medications, vitals, and PMH is available there as the clinical staff outside of myself do not have access to [employer] charting during the clinic day operations. As part of providing quality comprehensive care the current medications, vitals, and PMH were reviewed in the paper chart. Assessment and Plan Assessment and Plan (1) Cervical spondylosis: Assessment and Plan: The patient has had over 3 months of moderate to severe neck pain with functional impairment and inadequate response to conservative care including NSAIDS (unless there are contraindication such as concurrent blood thinners), multiple oral or topical pain medications, and home exercise program/physical therapy.? Patient has completed >6 weeks of guided home exercise program and/or formal physical therapy program without relief of their symptoms.? YAMILA 40% The patient noted the following:?? moderate to severe pain with ADLs, standing, walking, twisting, bending, lifting Plan bilateral C3-4 C4-5 facet medial branch block x2 working towards RFA for facet mediated pain, procedure to be completed under fluoroscopy continue HEP as tolerated continue current medications f/u after each mbb
--- OUTSIDE RECORDS SUMMARY | 2025-07-12 17:32 | XMS_ITS | CCD ---
Author Organization [facility] Care Team Providers Care Insurance Counselor Name Role Phone JOE JOHNSON Referring Unavailable MI DOMINGUEZ Primary Care Unavailable MI DOMINGUEZ Primary Care Unavailable JOE JOHNSON Referring Unavailable MI DOMINGUEZ Primary Care Unavailable ROSLAES, BRENDEN Referring Unavailable MI DOMINGUEZ Primary Care Unavailable ROSALES, BRENDEN Referring Unavailable MI DOMINGUEZ Primary Care Unavailable JOE JOHNSON Referring Unavailable MI DOMNIGUEZ Primary Care Unavailable JOE JOHNSON Referring Unavailable MI DOMINGUEZ Primary Care Unavailable JOE JOHNSON Referring Unavailable Lent ENGINEER DESIGN AND CONSTRUCTION-PERCUSSION WELDING MACHINE OPERATOR, Brenden L Primary Care Provider Mi Dominguez MD Primary Care Provider [phone] KATHIET, BRENDEN L Referring Unavailable LENT, BRENDEN L Primary Care Unavailable Lent ENGINEER DESIGN AND CONSTRUCTION-PERCUSSION WELDING MACHINE OPERATOR, Brenden L Primary Care Provider LENT, BRENDEN L Referring Unavailable LENT, BRENDEN L Primary Care Unavailable TRICE SILVA Attending Unavailable LENT, BERNDEN L Referring Unavailable LENT, BRENDEN L Primary Care Unavailable EMA ALBRIGHT Attending Unavailable LENT, BRENDEN L Referring Unavailable LENT, BRENDEN L Primary Care Unavailable DUONG MENENDEZ Attending Unavailable LENT, BRENDEN L Referring Unavailable LENT, BRENDEN L Primary Care Unavailable LENT, BRENDEN L Referring Unavailable LENT, BRENDEN L Primary Care Unavailable OFELIA CUMMINS Referring Unavailable LENT, BRENDEN L Primary Care Unavailable YUSRA HAMLIN Attending Unavailable LENT, BRENDEN L Referring Unavailable LENT, BRENDEN L Primary Care Unavailable LENT, BRENDEN L Referring Unavailable LENT, BRENDEN L Primary Care Unavailable LENT, BRENDEN L Referring Unavailable LENT, BRENDEN L Primary Care Unavailable DUONG MENENDEZ Attending Unavailable LENT, BRENDEN L Referring Unavailable LENT, BRENDEN L Primary Care Unavailable LENT, BRENDEN L Primary Care Unavailable MI DOMINGUEZ Referring Unavailable LENT, BRENDEN L Primary Care Unavailable ANGELICAMI HALEY Referring Unavailable LENT, BRENDEN L Referring Unavailable LENT, BRENDEN L Primary Care Unavailable ANGELICAMI HALEY Attending Unavailable LENT, BRENDEN L Primary Care Unavailable ANGELICAMI HALEY Referring Unavailable LENT, BRENDEN L Primary Care Unavailable MI DOMINGUEZ Referring Unavailable LENT, BRENDEN L Primary Care Unavailable MI DOMINGUEZ Referring Unavailable BERNSDORFCOLLEEN De La Vega Attending Unavailable COLLEEN RUSSELL Referring Unavailable LENT, BRENDEN L Primary Care Unavailable LENT, BRENDEN L Referring Unavailable LENT, BRENDEN L Attending Unavailable LENT, BRENDEN L Primary Care Unavailable LENT, BRENDEN L Referring Unavailable LENT, BRENDEN L Primary Care Unavailable AMBATI, SHELTONALA Attending Unavailable LENT, BRENDEN L Referring Unavailable LENT, BRENDEN L Primary Care Unavailable AMBATIMARIAJOSE Attending Unavailable LENT, BRENDEN L Attending Unavailable LENT, BRENDEN L Primary Care Unavailable LENT, BRENDEN L Referring Unavailable LENT, BRENDEN L Referring Unavailable LENT, BRENDEN L Primary Care Unavailable LENT, BRENDEN L Referring Unavailable LENT, BRENDEN L Primary Care Unavailable LENT, BRENDEN L Referring Unavailable LENT, BRENDEN L Primary Care Unavailable AMBATI, AMALA TAMIKA Attending Unavailable LENT, BRENDEN L Referring Unavailable LENT, BRENDEN L Primary Care Unavailable LENT, BRENDEN L Referring Unavailable LENT, BRENDEN L Primary Care Unavailable OFELIA CUMMINS Attending Unavailable LENT, BRENDEN L Primary Care Unavailable OFELIA CUMMINS Referring Unavailable YUSRA HAMLIN Referring Unavailable LENT, BRENDEN L Primary Care Unavailable LENT, BRENDEN L Referring Unavailable LENT, BRENDEN L Primary Care Unavailable TRICE SILVA Attending Unavailable LENT, BRENDEN L Referring Unavailable LENT, BRENDEN L Primary Care Unavailable ISIDRO WOODALL Attending Unavailable LENT, BRENDEN L Referring Unavailable LENT, BRENDEN L Primary Care Unavailable LENT, BRENDEN L Referring Unavailable LENT, BRENDEN L Primary Care Unavailable ISIDRO WOODALL Attending Unavailable LENT, BRENDEN L Referring Unavailable LENT, BRENDEN L Attending Unavailable LENT, BRENDEN L Primary Care Unavailable LENT, BRENDEN L Referring Unavailable LENT, BRENDEN L Primary Care Unavailable AMBATI, AMALA LUNDBERG Attending Unavailable LENT, BRENDEN L Referring Unavailable LENT, BRENDEN L Primary Care Unavailable LENT, BRENDEN L Primary Care Unavailable DUONG MENENDEZ Referring Unavailable HANNAH MCBRIDE Attending Unavailable LENT, BRENDEN L Primary Care Unavailable LENT, BRENDEN L Referring Unavailable LENT, BRENDEN L Primary Care Unavailable OFELIA CUMMINS Attending Unavailable LENT, BRENDEN L Referring Unavailable LENT, BRENDEN L Primary Care Unavailable AMSDELL, TRICE L Attending Unavailable LENT, BRENDEN L Primary Care Unavailable AMSDELL, TRICE L Referring Unavailable LENT, BRENDEN L Primary Care Unavailable AMSDELL, TRICE L Referring Unavailable AMBATI, AMALA LUNDBERG Referring Unavailable LENT, BRENDEN L Primary Care Unavailable AMBATI, AMALA LUNDBERG Attending Unavailable LENT, BRENDEN L Referring Unavailable LENT, BRENDEN L Primary Care Unavailable AMBATI, AMALA LUNDBERG Referring Unavailable LENT, BRENDEN L Primary Care Unavailable LENT, BRENDEN L Primary Care Unavailable LENT, BRENDEN L Primary Care Unavailable AMSDELL, TRICE L Referring Unavailable AMSDELL, TRICE L Attending Unavailable Allergies Allergy Classification Reported Allergen(s) Allergy Type Date of Onset Reaction(s) Facility (20 sources) Iodinated Contrast Media; Translations: [IODINATED CONTRAST MEDIA] Propensity to adverse reactions to drug 12-24-2018 Itching [facility] Medications Current Medications Medication Drug Class(es) Dates Sig (Normalized) Sig (Original) [id number] 200 actuat albuterol 0.09 mg/actuat metered dose inhaler (8 sources) beta2-Adrenergic Agonist Start: 06-27-2025 take 2 puff(s) by inhalation every six hours as needed for wheezing albuterol (PROVENTIL HFA;VENTOLIN HFA) 90 mcg/actuation inhaler Indications: Wheezing Inhale 2 puffs every 6 (six) hours as needed for wheezing. 18 g 2 06/27/2025 Active amantadine hydrochloride 100 mg oral tablet (20 sources) Influenza A M2 Protein Inhibitor Start: 07-03-2025 amantadine (SYMMETREL) 100 mg tablet Indications: Parkinson's disease ([facility]) Take 1-2 tablets by mouth at 6am and 1 tablet at 12pm 270 tablet 3 07/03/2025 Active Start: 07-03-2025 amantadine (SY MMETREL) 100 mg tablet Indications: Parkinson's disease ([facility]) Take 1-2 tablets by mouth at 6am and 1 tablet at 12pm 270 tablet 3 07/03/2025 Active Start: 03-01-2024 End: 07-03-2025 amantadine (SYMMETREL) 100 m g tablet Indications: Parkinson's disease ([facility]) Take 1-2 tabs at 6am and 1 tab at 12pm PO. 270 tablet 3 06/20/2025 07/03/2025 Discontinued calcium chloride 0.001 meq/m l / glucose 50 mg/ml / potassium chloride 0.004 meq/ml / sodium chloride 0.103 meq/ml / sodium lactate 0.028 meq/ml injectable solution (4 sources) Start: 05-10-2025 End: 05-11-2025 dextrose 5%-lactated ringers (D5 % and lactated ringer's) 5% infusion Infuse 1,000 mL into a venous catheter continuously for 1 day. Over 2 hours. Standing order - weekly for 1 month. 1000 mL 4 05/10/2025 05/10/2025 Discontinued (Reorder) Start: 05-05-2025 End: 05-05-2025 dextrose 5%-lactated ringers (dextrose 5 % and lactated ringers) bolus Indications: Dehydration , Malnutrition, unspecified type , Parkinson's disease ([facility]) Infuse 1,000 mL into a venous catheter once for 1 dose. 1000 mL 05/05/2025 05/05/2025 Active calcium citrate 250 mg / ergocalciferol 100 mg oral tablet (20 sources) Provitamin D2 Compound take 1 tablet by mouth in the morning, then take 1 tablet by mouth once at bedtime calcium citrate-vitamin D2 250 mg-2.5 mcg (100 unit) per tablet Take 1 tablet by mouth in the morning and 1 tablet before bedtime. Active carbidopa 25 mg / levodopa 100 mg extended release oral tablet (20 sources) Aromatic Amino Acid Decarboxylation Inhibitor, Aromatic Amino Acid Start: carbidopa-levodopa (SINEMET CR) 25-100 mg per CR tablet Indications: Parkinson's disease with dyskinesia and fluctuating manifestations (CMS-HCC) Take 2 tabs 6am, 1 tab 1130am, 2 tabs 5pm, and 1 tab 11pm PO 540 tablet 3 03/30/2025 Active Start: 10-17-2024 End: 01-26-2025 take 1 tablet by mouth once as needed, then take 0.5-1 tablets by mouth once daily as needed carbidopa-levodopa (SINEMET) 25-100 mg per tablet Indications: Parkinson's disease (CMS-HCC) TAKE 1 TABLET BY MOUTH AT 6AM AND 1/2 TO 1 TABLET DAILY NEEDED OFF TIME (USE WITH SINEMET CR) 60 tablet 5 10/17/2024 01/26/2025 Discontinued Start: 09-09-2024 End: 01-26-2025 carbidopa-levodopa (SINEMET CR) 25-100 mg per CR tablet Indications: Parkinson's disease (CMS-HCC) TAKE 2 TABLETS BY MOUTH AT 6AM, THEN 1 TAB AT 12PM, THEN 2 TABS AT 5PM, AND 1 TO 2 TABS AT 10PM 630 tablet 3 11/22/2024 01/26/2025 Discontinued carbidopa-levodopa (CREXONT) 70-280 mg capsule,IR -extend rel,biphase (13 sources) Start: 03-07-2025 carbidopa-levo dopa (CREXONT) 70-280 mg capsule,IR -extend rel,biphase Indications: Parkinson's disease with dyskinesia and fluctuating manifestations (CMS-HCC) Take 1 cap by mouth at 630 am 1 cap at 1pm and 1 cap at 6pm 90 each 11 03/07/2025 Active Start: 01-26-2025 End: 03-07-2025 take 1 capsule by mouth in the morning carbidopa-levodopa (CREXONT) 70-280 mg capsule,IR -extend rel,biphase Indications: Parkinson's disease with dyskinesia and fluctuating manifestations (CMS-HCC) Take 1 cap by mouth at 630 am and another 1 cap at 1pm 60 each 01/26/2025 03/07/2025 Discontinued (Reorder) Start: 01-26-2025 take 1 capsule by [facility] in the morning carbidopa-levodopa (CREXONT) 70-280 mg capsule,IR -extend rel,biphase Indications: Parkinson's disease with dyskinesia and fluctuating manifestations (CMS-HCC) Take 1 cap by mouth at 630 am and another 1 cap at 1pm 60 each 01/26/2025 Active clonazePAM 0.5 mg oral tablet (20 sources) Benzodiazepine Start: 12-05-2024 clonazePAM (Kl onoPIN) 0.5 mg tablet Indications: Insomnia due to medical condition , REM sleep behavior disorder Take 3 tablets at bedtime 270 tablet 1 12/05/2024 Active Start: 02-15-2024 clonazePAM (Kl onoPIN) 0.5 mg tablet Indications: Insomnia due to medical condition , REM sleep behavior disorder Take one tablet by mouth in the afternoon and 3-4 tablets at bedtime 150 tablet 5 02/15/2024 Active eszopiclone 2 mg oral tablet (20 sources) Start: 05-27-2024 End: 01-26-2025 take 1 tablet by mouth once daily at bedtime eszopiclone (LUNESTA) 2 mg tablet Indications: Insomnia due to medical condition Take 1 tablet (2 mg total) by mouth nightly. Take immediately before bedtime 90 tablet 1 01/26/2025 Active folic acid 1 mg oral tablet (20 sources) Start: 09-29-2024 take 1 tablet by mouth in the morning folic acid (FOLVITE) 1 mg tablet Indications: Inflammatory polyarthritis (CMS-HCC) , Seronegative rheumatoid arthritis (CMS-HCC) Take 1 tablet (1 mg total) by mouth in the morning. 90 tablet 3 09/29/2024 Active furosemide 20 mg oral tablet (20 sources) Loop Diuretic take 1 tablet by mouth once daily furosemide (LASIX) 20 mg tablet Take 1 tablet (20 mg total) by mouth daily. Active ammonium lactate 120 mg/ml topical cream (20 sources) Start: 02-14-2025 ammonium lactate (AMLACTIN) 12 % cream Apply 1 Application topically as needed. 02/14/2025 Active losartan potassium 25 mg oral tablet (20 sources) Angiotensin 2 Receptor Anu Start: 02-24-2024 take 1 tablet by mouth in the morning losartan (COZAAR) 25 mg tablet Indications: Primary hypertension TAKE 1 TABLET BY MOUTH IN THE MORNING 90 tablet 3 02/24/2024 Active Losartan Potassium-HCTZ (HYZAAR PO) (1 source) take 12.5 mg by mouth once daily Losartan Potassium-HCTZ (HYZAAR PO) Take 12.5 mg by mouth daily. Active methotrexate 2.5 mg oral tablet (20 sources) Folate Analog Metabolic Inhibitor Start: 06-22-2025 End: 09-20-2025 take 9 tablets by mouth every week methotrexate 2.5 mg chemo tablet Indications: Inflammatory polyarthritis (CMS-HCC) , Seronegative rheumatoid arthritis (CMS-HCC) , Medication monitoring encounter Take 9 tablets by mouth once a week 108 tablet 06/22/2025 09/20/2025 Active Start: 03-06-2025 End: 06-04-2025 take 8 tablets by mouth every week methotrexate 2.5 mg chemo tablet Indications: Inflammatory polyarthritis (CMS-HCC) , Seronegative rheumatoid arthritis (CMS-HCC) , Medication monitoring encounter Take 8 tablets by mouth once a week 96 tablet 03/06/2025 06/04/2025 Active Start: 09-29-2024 End: 03-18-2025 take 7 tablets by mouth every week methotrexate 2.5 mg chemo tablet Indications: Inflammatory polyarthritis (CMS-HCC) Take 7 tablets by mouth once a week 84 tablet 12/18/2024 03/06/2025 Discontinued (Reorder) pantoprazole 40 mg delayed release oral tablet (20 sources) Proton Pump Inhibitor Start: 05-27-2024 End: 05-22-2025 take 1 tablet by mouth in the morning pantoprazole (PROTONIX) 40 mg EC tablet TAKE 1 TABLET BY MOUTH IN THE MORNING 30 tablet 11 05/22/2025 Active pramipexole dihydrochloride 0.25 mg oral tablet (20 sources) Nonergot Dopamine Agonist Start: 12-18-2023 End: 12-01-2024 take 1 tablet by mouth three times daily pramipexole (MIRAPEX) 0.25 mg tablet Indications: Parkinson's disease (CMS-HCC) , Restless leg syndrome TAKE 1 TABLET BY MOUTH 3 TIMES DAILY 270 tablet 3 12/01/2024 Active take 3.75 mg by mouth once daily pramipexole (MIRAPEX) 1 MG tablet Take 3.75 mg by mouth Daily. Active rasagiline 1 mg oral tablet (20 sources) Monoamine Oxidase Inhibitor Start: 09-21-2024 End: 12-28-2024 take 1 tablet by mouth once daily in the morning rasagiline (AZILECT) 1 mg tablet Indications: Restless leg syndrome Take 1 tablet (1 mg total) by mouth every morning. 90 tablet 3 12/28/2024 Active take 1 tablet by mouth once pieter y rasagiline mesylate 1 MG TABS Take 1 tablet by mouth daily. Active simvastatin 40 mg oral tablet (20 sources) HMG-CoA Reductase Inhibitor Start: 08-19-2024 End: 03-13-2025 simvastatin (ZOCOR) 40 mg tablet Indications: Mixed hyperlipidemia TAKE 1 TABLET BY MOUTH AT NIGHT 90 tablet 1 03/13/2025 Active take 1 tablet by mouth once pieter y simvastatin (ZOCOR) 20 MG tablet Take 20 mg by mouth nightly. Active tiotropium 0.018 mg inhalation powder (1 source) Anticholinergic take 1 capsule by inhalation once daily tiotropium (SPIRIVA) 18 MCG inhalation capsule Inhale 18 mcg into the lungs daily. Active tiZANidine 4 mg oral capsule (20 sources) Central alpha-2 Adrenergic Agonist Start: 05-18-20 25 tiZANidine (ZANAFLEX) 4 mg capsule Indications: Neck pain , Muscle tension pain TAKE 1 CAPSULE BY MOUTH AT NIGHT 30 capsule 05/18/2025 Active Start: 02-01-2025 End: 05-02-2025 take 1 capsule by mouth once daily tiZANidine (ZANAFLEX) 4 mg capsule Indications: Neck pain , Muscle tension pain Take 1 capsule (4 mg total) by mouth nightly for 90 days. 30 capsule 2 02/01/2025 05/02/2025 Active Start: 12-06-2024 End: 01-05-2025 tiZANidine (ZANAFLEX) 4 mg c apsule Indications: Neck pain , Muscle tension pain TAKE 1 CAPSULE BY MOUTH AT NIGHT 30 capsule 12/30/2024 Active Completed/Discontinued Medications Medication Drug Class(es) Dates Sig (Normalized) Sig (Original) ALPRAZolam 0.25 mg oral tablet (20 sources) Benzodiazepine Start: 06-29-2024 End: 06-29-2025 take 1 tablet by mouth three times daily as needed for anxiety ALPRAZolam (XANAX) 0.25 mg tablet Indications: Panic attack Take 1 tablet (0.25 mg total) by mouth 3 (three) times a day as needed for anxiety. 12 tablet 3 02/02/2025 05/03/2025 Discontinued aspirin 81 mg delayed release oral tablet (20 sources) Platelet Aggregation Inhibitor, Nonsteroidal Anti-inflammatory Drug End: 02-21-2025 take 1 tablet by mouth once aspirin 81 mg Take 1 tablet (81 mg total) by mouth once. 02/21/2025 Discontinued calcium carbonate 648 mg oral tablet (20 sources) End: 04-25-2025 calcium carbonate 260 mg calcium (648 mg) tablet Take by mouth. 04/25/2025 Discontinued (Therapy completed) ciclopirox 7.7 mg/ml topical cream (20 sources) Start: 11-28-2022 End: 04-25-2025 ciclopirox (LOPROX) 0.77 % cream 11/28/2022 04/25/2025 Discontinued (Therapy completed) Lidocaine (4 sources) Antiarrhythmic, Amide Local Anesthetic Start: 12-06-2024 End: 12-06-2024 lidocaine (XYLOCAINE) 10 mg/mL (1 %) injection 40 mg Start: 12-06-2024 End: 12-06-2024 lidocaine (XYLOCAINE) 10 mg/ mL (1 %) injection 40 mg Start: 12-06-2024 End: 12-06-2024 40 mg (4 mL), intra-articula r, Once, On Thu12/06/24 at 1400, For 1 dose Start: 12-06-2024 End: 12-06-2024 40 mg (4 mL), intra-articula r, Once, On Thu12/06/24 at 1400, For 1 dose traMADol hydrochloride 50 mg oral tablet (20 sources) Opioid Agonist Start: 12-06-2024 End: 04-25-2025 take 1 tablet by mouth every eight hours as needed for pain traMADoL (ULTRAM) 50 mg tablet Indications: Chronic pain syndrome Take 1 tablet (50 mg total) by mouth every 8 (eight) hours as needed for pain. 90 tablet 12/06/2024 04/25/2025 Discontinued (Therapy completed) 1 ml triamcinolone acetonide 40 mg/ml injection (4 sources) Corticosteroid Start: 12-06-2024 End: 12-06-2024 triamcinolone acetonide (KENALOG-40) injection 40 mg Start: 12-06-2024 End: 12-06-2024 40 mg, intra-articular, Once , On Thu12/06/24 at 1400, For 1 dose Problems Active Problems Problem Classification Problem Date Documented Da te Episodic/Chronic Anxiety disorders (1 source) Panic disorder [episodic paroxysmal anxiety]; Translations: [Panic disorder (episodic paroxysmal anxiety)] Onset: 06-29-2024 Chronic Chronic obstructive pulmonary disease and bronchiectasis (20 sources) Chronic obstructive lung disease; Translations: [Chronic obstructive pulmonary disease, unspecified] Onset: 03-14-2019 03-21-2021 Chronic Congestive heart failure; nonhypertensive (20 sources) Chronic heart failure co-occurrent with normal ejection fraction; Translations: [Chronic diastolic (congestive) heart failure] Onset: 02-20-2022 03-25-2022 Chronic Deficiency and other anemia (1 source) Iron deficiency anemia; Translations: [Iron deficiency anemia, unspecified] 05-05-2025 Episodic Deficiency and other anemia (1 source) Iron deficiency anemia, unspecified; Translations: [Iron deficiency anemia, unspecified] Onset: 06-08-2025 Episodic Disorders of lipid metabolism (20 sources) Mixed hyperlipidemia; Translations: [Mixed hyperlipidemia] Onset: 03-09-2017 03-09-2017 Chronic Essential hypertension (20 sources) Hypertensive disorder; Translations: [Essential (primary) hypertension] Onset: 03-09-2017 11-30-2020 Chronic Fluid and electrolyte disorders (1 source) Dehydration; Translations: [Dehydration] 05-05-2025 Episodic Genitourinary symptoms and ill-defined conditions (4 sources) Dysuria; Translations: [Dysuria] Onset: 05-03-2025 05-03-2025 Episodic Heart valve disorders (20 sources) Non-rheumatic mitral regurgitation ; Translations: [Nonrheumatic mitral (valve) insufficiency] Onset: 10-04-2024 10-04-2024 Chronic Nutritional deficiencies (1 source) Undernutrition; Translations: [Unspecified protein-calorie malnutrition] 05-05-2025 Chronic Osteoarthritis (4 sources) Degenerative joint disease involving multiple joints; Translations: [Primary generalized (osteo)arthritis] Onset: 08-24-2024 12-06-2024 Chronic Other aftercare (2 sources) Patient encounter status; Translations: [Encounter for therapeutic drug level monitoring] 03-06-2025 Episodic Other bone disease and musculoskeletal deformities (2 sources) Other specified disorders of bone density and structure, unspecified site; Translations: [Other specified disorders of bone density and structure, unspecified site] Onset: 06-21-2024 Episodic Other circulatory disease (1 source) Raynaud's disease; Translations: [Raynaud's syndrome without gangrene] 12-06-2024 Chronic Other circulatory disease (1 source) Raynaud's syndrome without gangrene; Translations: [Raynaud's syndrome without gangrene] Onset: 08-24-2024 Chronic Other connective tissue disease (3 sources) Pain in right hand; Translations: [Pain in right hand] Onset: 06-28-2024 Episodic Other connective tissue disease (3 sources) Pain in left hand; Translations: [Pain in left hand] Onset: 06-28-2024 Episodic Other connective tissue disease (2 sources) Muscle tension pain; Translations: [Myalgia, unspecified site] 12-06-2024 Episodic Other connective tissue disease (1 source) Fibromyalgia; Translations: [Fibromyalgia] 12-06-2024 Episodic Other gastrointestinal disorders (3 sources) Dysphagia; Translations: [Dysphagia, unspecified] 05-17-2025 Episodic Other gastrointestinal disorders (1 source) Dysphagia, unspecified; Translations: [Dysphagia, unspecified] Onset: 05-17-2025 Episodic Other hereditary and degenerative nervous system conditions (4 sources) Restless legs; Translations: [Restless legs syndrome] 11-30-2024 Chronic Other lower respiratory disease (1 source) Wheezing; Translations: [Wheezing] 06-27-2025 Episodic Other lower respiratory disease (1 source) Cough Onset: 06-27-2025 Episodic Other nervous system disorders (20 sources) Chronic pain syndrome; Translations: [Chronic pain syndrome] Onset: 12-06-2024 12-06-2024 Chronic Other nervous system disorders (2 sources) Other chronic pain; Translations: [Other chronic pain] Onset: 12-06-2024 Chronic Other nervous system disorders (2 sources) Chronic pain syndrome; Translations: [Chronic pain syndrome] Onset: 12-06-2024 Chronic Other nutritional; endocrine; and metabolic disorders (1 source) Hyperbilirubinemia; Translations: [Other disorders of bilirubin metabolism] 05-05-2025 Chronic Other nutritional; endocrine; and metabolic disorders (1 source) Other disorders of bilirubin metabolism; Translations: [Other disorders of bilirubin metabolism] Onset: 06-08-2025 Chronic Other nutritional; endocrine; and metabolic disorders (1 source) Weight decreased; Translations: [Abnormal weight loss] 05-05-2025 Episodic Other nutritional; endocrine; and metabolic disorders (1 source) Decrease in appetite; Translations: [Anorexia] 05-05-2025 Episodic Other nutritional; endocrine; and metabolic disorders (1 source) Abnormal weight loss; Translations: [Abnormal weight loss] Onset: 06-08-2025 Episodic Other nutritional; endocrine; and metabolic disorders (1 source) Anorexia; Translations: [Anorexia] Onset: 04-17-2025 Episodic Other nutritional; endocrine; and metabolic disorders (1 source) Loss of appetite Onset: 04-17-2025 Episodic Other upper respiratory infections (1 source) Acute upper respiratory infection, unspecified; Translations: [Acute upper respiratory infection, unspecified] Onset: 06-27-2025 Episodic Parkinson`s disease (20 sources) Parkinson's disease; Translations: [Parkinson's disease] Onset: 03-09-2017 11-20-2024 Chronic Parkinson`s disease (2 sources) Parkinson`s disease; Translations: [Parkinson's disease with dyskinesia, with fluctuations] Onset: 07-13-2024 Residual codes; unclassified (3 sources) Insomnia co-occurrent and due to medical condition; Translations: [Insomnia due to medical condition] 12-08-2024 Chronic Residual codes; unclassified (2 sources) Insomnia due to medical condition; Translations: [Insomnia due to medical condition] Onset: 06-29-2024 Chronic Residual codes; unclassified (1 source) Insomnia; Translations: [Insomnia, unspecified] 05-05-2025 Episodic Residual codes; unclassified (1 source) Altered mental status, unspecified; Translations: [Altered mental status, unspecified] Onset: 04-17-2025 Episodic Residual codes; unclassified (1 source) Altered mental status Onset: 04-17-2025 Episodic Rheumatoid arthritis and related disease (9 sources) Inflammatory polyarthropathy; Translations: [Inflammatory polyarthropathy] Onset: 09-29-2024 12-06-2024 Chronic Spondylosis; intervertebral disc disorders; other back problems (20 sources) Degeneration of lumbar intervertebral disc; Translations: [Lumbar degenerative disc disease] Onset: 10-19-2017 10-19-2017 Chronic Unclassified (2 sources) Annual Exam Onset: 02-21-2025 Unclassified (1 source) Consult Onset: 01-23-2025 Unclassified (1 source) Low back pain, unspecified; Translations: [Low back pain, unspecified] Onset: 12-09-2016 Unclassified (1 source) Test Onset: 04-25-2025 Unclassified (1 source) weight loss, difficulty speaking 6/8 AM Onset: 04-17-2025 Unclassified (1 source) New Patient Onset: 12-06-2024 Unclassified (1 source) Breast Mass Onset: 10-20-2024 Past or Other Problems Problem Classification Problem Date Documented Da te Episodic/Chronic Complication of device; implant or graft (3 sources) Complication associated with silicone gel-filled breast implant; Translations: [Unspecified complication of internal prosthetic device, implant and graft, initial encounter] Onset: 02-21-2025 02-23-2025 Episodic Diseases of mouth; excluding dental (20 sources) Oral lesion; Translations: [Unspecified lesions of oral mucosa] Onset: 11-11-2021 11-11-2021 Episodic Immunizations and screening for infectious disease (2 sources) Autoantibody level - finding; Translations: [Raised antibody titer] Onset: 08-24-2024 12-06-2024 Episodic Mood disorders (20 sources) Mood disorders Onset: 08-09-2024 Resolved: 05-17-2025 08-09-2024 Nonmalignant breast conditions (1 source) Unspecified lump in the right breast, upper inner quadrant; Translations: [Unspecified lump in the right breast, upper inner quadrant] Onset: 10-20-2024 Episodic Open wounds of extremities (20 sources) Open wound of left lower leg; Translations: [Unspecified open wound, left lower leg, initial encounter] Onset: 01-20-2022 Resolved: 12-01-2022 12-01-2022 Episodic Other aftercare (1 source) Encounter for therapeutic drug level monitoring; Translations: [Encounter for therapeutic drug level monitoring] Onset: 03-06-2025 Episodic Other connective tissue disease (20 sources) Swelling of hand; Translations: [Other specified soft tissue disorders] Onset: 12-09-2016 12-09-2016 Episodic Other connective tissue disease (20 sources) Decrease in height; Translations: [Loss of height] Onset: 03-09-2017 03-09-2017 Episodic Other connective tissue disease (20 sources) Rotator cuff arthropathy of right shoulder; Translations: [Unspecified rotator cuff tear or rupture of right shoulder, not specified as traumatic] Onset: 12-03-2020 12-03-2020 Episodic Other connective tissue disease (1 source) Pain of bilateral hands; Translations: [Pain in right hand] 06-28-2024 Episodic Other connective tissue disease (1 source) Myalgia, unspecified site; Translations: [Myalgia, unspecified site] Onset: 12-06-2024 Episodic Other connective tissue disease (1 source) Fibromyalgia; Translations: [Fibromyalgia] Onset: 08-24-2024 Episodic Other gastrointestinal disorders (20 sources) Abdominal bloating; Translations: [Abdominal distension (gaseous)] Onset: 02-19-2022 Resolved: 02-21-2025 02-19-2022 Episodic Other gastrointestinal disorders (1 source) Other dysphagia; Translations: [Other dysphagia] Onset: 07-13-2024 Episodic Other screening for suspected conditions (not mental disorders or infectious disease) (5 sources) Encounter for screening mammogram for malignant neoplasm of breast; Translations: [Patient encounter status] Onset: 01-13-2024 02-22-2025 Episodic Other skin disorders (20 sources) Eruption; Translations: [Rash and other nonspecific skin eruption] Onset: 12-09-2016 Resolved: 03-14-2019 03-14-2019 Episodic Residual codes; unclassified (2 sources) Asymptomatic menopausal state; Translations: [Asymptomatic menopausal state] Onset: 03-09-2017 Episodic Residual codes; unclassified (20 sources) Menopause present; Translations: [Asymptomatic menopausal state] Onset: 03-09-2017 03-09-2017 Episodic Residual codes; unclassified (20 sources) Livedo reticularis; Translations: [Pallor] Onset: 07-29-2021 07-29-2021 Episodic Residual codes; unclassified (1 source) Personal history of other specified conditions; Translations: [Personal history of other specified conditions] Onset: 11-04-2024 Episodic Septicemia (except in labor) (20 sources) Sepsis due to Staphylococcus aureus; Translations: [Sepsis due to Methicillin susceptible Staphylococcus aureus] Onset: 01-17-2022 Resolved: 12-01-2022 12-01-2022 Episodic Skin and subcutaneous tissue infections (20 sources) Cellulitis of left lower limb; Translations: [Cellulitis of left lower limb] Onset: 02-19-2022 Resolved: 12-01-2022 12-01-2022 Episodic Spondylosis; intervertebral disc disorders; other back problems (20 sources) Chronic low back pain; Translations: [Chronic bilateral low back pain without sciatica] Onset: 12-09-2016 12-09-2016 Episodic Sprains and strains (20 sources) Hamstring injury; Translations: [Strain of muscle, fascia and tendon of the posterior muscle group at thigh level, right thigh, initial encounter] Onset: 07-03-2020 Resolved: 02-10-2024 07-03-2020 Episodic Syncope (20 sources) Vasovagal syncope; Translations: [Syncope and collapse] Onset: 07-05-2024 07-05-2024 Episodic Unclassified (20 sources) Onset: 06-29-2024 Resolved: 02-23-2025 06-29-2024 Unclassified (4 sources) Patient encounter status 04-14-2025 Results Test Name Value Interpretation Reference Range Facility FL SWALLOW [employer]ILITY FUNCTION on 06-28-2025 FL SWALLOW MOTILITY FUNCTION FL SWALLOW MOTILITY FUNCTION STUDY: Video fluoroscopic swallow study CLINICAL HISTORY: [...] Miguel Hernandez MD on 06/28/2025 3:51 PM Normal [facility] PORTABLE INFLUENZA A/INFLUEN ZA Bon 06-27-2025 INFLUENZA A Negative Normal Negative [facility] Comment on above: Order Comment: The I D NOW Influenza A and B2 assay performed on the [employer] instrument is a rapid molecular invitro diagnostic test utilizing an ???isothermal nucleic acid amplification technology for the qualitative detection and discrimination of Influenza A and B viral RNA in direct nasopharyngeal swabs from patients with signs and symptoms of respiratory infection and epidemiological risk factors Performed By: #### C BCA, 64814-2, ENAP, 37852-7, LIVR, 1987-03, AHP, FINANCE OFFICER, 81551-5 #### [facility] ([id number]) [address], [address] [place] [address] INFLUENZA B Negative Normal Negative [facility] Comment on above: Order Comment: The I D NOW Influenza A and B2 assay performed on the [employer] instrument is a rapid molecular invitro diagnostic test utilizing an ???isothermal nucleic acid amplification technology for the qualitative detection and discrimination of Influenza A and B viral RNA in direct nasopharyngeal swabs from patients with signs and symptoms of respiratory infection and epidemiological risk factors Performed By: #### C BCA, 53016-6, ENAP, 96708-5, LIVR, 1987-03, AHP, FINANCE OFFICER, 68414-3 #### [facility] ([id number]) [address] [place] [address] SARS COV 2 BY NAAT/MOLECULAR (POCT FSED)on 06-27-2025 SARS-CoV-2 (COVID-19) RNA ALIX+probe Ql (Unsp spec) Negative Normal Presumptive Negative [facility] Comment on above: Order Comment: NOTE - ID NOW COVID-19 assay performed on the [employer] instrument is a rapid molecular invitro diagnostic [...] test is intended for use by medical communication specialist or trained operators who are proficient in performing tests using the ID NOW instrument.The ID NOW COVID-19 test is only for use under the Food and Drug Administration's Emergency Use Authorization.Fact Sheet for Healthcare Providers:https://www.fda.gov/media/773232/downloadFact Sheet for Patients:https://www.fda.gov/media/654503/download Performed By: #### C BCA, 77383-8, ENAP, 35255-6, LIVR, 1987-5, AHP, FINANCE OFFICER, 13190-9 #### [facility] ([id number]) [address], [address] [place] [address] XR CHEST 2 VWSon 06-27-2025 XR CHEST 2 VWS XR CHEST 2 VWS And lateral chest: HISTORY: Cough. 2 views the chest are obtained. Cardiac and mediastinal contours are within normal limits. Lungs are clear. There is no vascular congestion, effusion, or pneumothorax. Osseous structures appear intact. Changes of COPD noted. IMPRESSION: COPD. Finalized by Enrico Mayfield MD on 06/27/2025 2:00 PM Normal [facility] XR SPINE LUMBAR 2 OR 3 VWSon 06-24-2025 XR SPINE LUMBAR 2 OR 3 VWS XR SPINE LUMBAR 2 OR 3 VWS XR SPINE LUMBAR 2 OR 3 VWS Clinical history:Inflammatory polyarthritis ([facility]); Seronegative rheumatoid arthritis ([facility]); Primary osteoarthritis involving multiple joints; Chronic bilateral low back pain without sciatica Comparison: 04/13/2023 Impression: Multilevel degenerative disc disease with disc loss and endplate degenerative changes throughout the lumbar spine most pronounced at L4-L5 and L5-S1. Multilevel facet hypertrophy. No vertebral body height loss. No evidence of acute osseous abnormalities. Finalized by Ashok Kramer MD on 06/24/2025 6:36 AM Normal [facility] BASIC METABOLIC PANELon 07-3 Anion gap [Moles/Vol] 9 mmol/L Normal 5-15 [facility] Comment on above: Performed By: #### C BCA, 30511-7, ENAP, 50563-9, LIVR, 1987-03, AHP, FINANCE OFFICER, 07181-9 #### [facility] ([id number]) [address], [address] [place] [address] Calcium [Mass/Vol] 9.8 mg/dL Normal 8.5-10.5 [facility] Comment on above: Performed By: #### C BCA, 34924-0, ENAP, 72126-5, LIVR, 1987-03, AHP, FINANCE OFFICER, 20982-1 #### [facility] ([id number]) [address], [address] [place] [address] Chloride [Moles/Vol] 100 mmol/L Normal 98-109 [facility] Comment on above: Performed By: #### C BCA, 93837-1, ENAP, 85023-8, LIVR, 1987-03, AHP, FINANCE OFFICER, 54904-2 #### [facility] ([id number]) [address], [address] [place] [address] CO2 [Moles/Vol] 32 mmol/L Normal 22-32 [facility] Comment on above: Performed By: #### C BCA, 14684-1, ENAP, 79297-8, LIVR, 1987-03, AHP, FINANCE OFFICER, 08138-8 #### [facility] ([id number]) [address], [address] [place] [address] Creatinine [Mass/Vol] 0.60 mg/dL Normal 0.40-1.00 [facility] Comment on above: Result Comment: METH OD TRACEABLE TO IDMS STANDARD Performed By: #### C BCA, 35288-6, ENAP, 89895-6, LIVR, 1987-03, AHP, FINANCE OFFICER, 86031-3 #### [facility] ([id number]) [address] [place] [address] EGFR (CKD-EPI) NON-RACE DEPENDENT >^90 Normal >=60 [facility] Comment on above: Result Comment: Repo rted eGFR is based on the CKD-EPI 2020 equation that does not use a race coefficient. Performed By: #### C BCA, 45093-8, ENAP, 60825-4, LIVR, 1987-03, AHP, FINANCE OFFICER, 42618-9 #### [facility] ([id number]) [address] [address] Glucose [Mass/Vol] 88 mg/dL Normal 65-99 [facility] Comment on above: Performed By: #### C BCA, 85124-9, ENAP, 40864-8, LIVR, 1987-03, AHP, FINANCE OFFICER, 14680-4 #### [facility] ([id number]) [address], [address] [place] [address] Potassium [Moles/Vol] 4.9 mmol/L Normal 3.5-5.0 [facility] Comment on above: Performed By: #### C BCA, 09721-6, ENAP, 32049-1, LIVR, 1987-03, AHP, FINANCE OFFICER, 43686-7 #### [facility] ([id number]) [address] [place] [address] Sodium [Moles/Vol] 141 mmol/L Normal 134-146 [facility] Comment on above: Performed By: #### C BCA, 99051-6, ENAP, 29663-1, LIVR, 1987-03, AHP, FINANCE OFFICER, 21494-2 #### [facility] ([id number]) [address], [address] [place] [address] Urea nitrogen [Mass/Vol] 20 mg/dL Normal 5-27 [facility] Comment on above: Performed By: #### C BCA, 85898-3, ENAP, 27784-7, LIVR, 1987-03, AHP, FINANCE OFFICER, 83145-9 #### [facility] ([id number]) [address], [address] [place] [address] C-REACTIVE PROTEINon 025 CRP [Mass/Vol] mg/L Normal <=0.7 [facility] Comment on above: Performed By: #### C BCA, 70090-0, ENAP, 36226-9, LIVR, 1987-03, AHP, FINANCE OFFICER, 46505-5 #### [facility] ([id number]) [address], [address] [place] [address] CBC WITH AUTO DIFFERENTIALon 06-08-2025 BASOPHILS ABSOLUTE COUNT (10*3/UL) BY AUTOMATED COUNT 0.0 10*3/uL Normal 0.0-0.2 [facility] Comment on above: Performed By: #### C BCA, 79351-7, ENAP, 52074-0, LIVR, 1987-03, AHP, FINANCE OFFICER, 35067-3 #### [facility] ([id number]) [address], [address] [place] [address] BASOPHILS RELATIVE PERCENT BY AUTOMATED COUNT 0.4 % Normal [facility] Comment on above: Performed By: #### C BCA, 29530-5, ENAP, 38881-2, LIVR, 1987-03, AHP, FINANCE OFFICER, 04485-5 #### [facility] ([id number]) [address] [place] [address] CELLAVISION DIFFERENTIAL TYPE AUTOMATED DIFFERENTIAL Normal [facility] Comment on above: Performed By: #### C BCA, 05823-6, ENAP, 53263-2, LIVR, 1987-03, AHP, FINANCE OFFICER, 09011-1 #### [facility] ([id number]) [address], [address] [address] Eosinophils (Bld) [#/Vol] 0.5 10*3/uL High 0.0-0.4 [facility] Comment on above: Performed By: #### C BCA, 70809-3, ENAP, 41630-9, LIVR, 1987-03, AHP, FINANCE OFFICER, 38454-0 #### [facility] ([id number]) [address], [address] [address] EOSINOPHILS RELATIVE PERCENT BY AUTOMATED COUNT 7.7 % Normal [facility] Comment on above: Performed By: #### C BCA, 29118-5, ENAP, 89665-6, LIVR, 1987-03, AHP, FINANCE OFFICER, 59567-8 #### [facility] ([id number]) [address] [address] Erythrocyte distribution width (RBC) [Ratio] 15.8 % High 11.5-15 [facility] Comment on above: Performed By: #### C BCA, 58587-7, ENAP, 51843-8, LIVR, 1987-03, AHP, FINANCE OFFICER, 53095-6 #### [facility] ([id number]) [address] [address] Hematocrit (Bld) [Volume fraction] 39.0 % Normal 35-47 [facility] Comment on above: Performed By: #### C BCA, 19151-3, ENAP, 96121-0, LIVR, 1987-03, AHP, FINANCE OFFICER, 55767-7 #### [facility] ([id number]) [address], [address] [place] [address] Hemoglobin (Bld) [Mass/Vol] 12.7 g/dL Normal 11.7-15.5 [facility] Comment on above: Performed By: #### C BCA, 04904-3, ENAP, 18882-6, LIVR, 1987-03, AHP, FINANCE OFFICER, 45208-2 #### [facility] ([id number]) [address], [address] [place] [address] LYMPHOCYTES ABSOLUTE COUNT (10*3/UL) BY AUTOMATED COUNT 1.0 10*3/uL Normal 1.0-3.5 [facility] Comment on above: Performed By: #### C BCA, 45764-7, ENAP, 41477-7, LIVR, 1987-03, AHP, FINANCE OFFICER, 42982-7 #### [facility] ([id number]) [address], [address] [place] [address] LYMPHOCYTES RELATIVE PERCENT BY AUTOMATED COUNT 16.8 % Normal [facility] Comment on above: Performed By: #### C BCA, 04475-9, ENAP, 72814-8, LIVR, 1987-03, AHP, FINANCE OFFICER, 62893-5 #### [facility] ([id number]) [address], [address] [place] [address] MCH (RBC) [Entitic mass] 30.1 pg Normal 27-34 [facility] Comment on above: Performed By: #### C BCA, 40499-0, ENAP, 83060-1, LIVR, 1987-03, AHP, FINANCE OFFICER, 90506-9 #### [facility] ([id number]) [address], [address] [place] [address] MCHC (RBC) [Mass/Vol] 32.4 g/dL Normal 32-36 [facility] Comment on above: Performed By: #### C BCA, 18982-1, ENAP, 69207-5, LIVR, 1987-03, AHP, FINANCE OFFICER, 68690-9 #### [facility] ([id number]) [address], [address] [place] [address] MCV (RBC) [Entitic vol] 93 fL Normal 80-100 [facility] Comment on above: Performed By: #### C BCA, 78536-6, ENAP, 46846-3, LIVR, 1987-03, AHP, FINANCE OFFICER, 77885-3 #### [facility] ([id number]) [address], [address] [place] [address] MONOCYTES ABSOLUTE COUNT (10*3/UL) BY AUTOMATED COUNT 0.4 10*3/uL Normal 0.0-0.9 [facility] Comment on above: Performed By: #### C BCA, 51970-7, ENAP, 47251-8, LIVR, 1987-03, AHP, FINANCE OFFICER, 35143-9 #### [facility] ([id number]) [address], [address] [place] [address] MONOCYTES RELATIVE PERCENT BY AUTOMATED COUNT 6.6 % Normal [facility] Comment on above: Performed By: #### C BCA, 08124-1, ENAP, 48018-8, LIVR, 1987-03, AHP, FINANCE OFFICER, 76537-6 #### [facility] ([id number]) [address], [address] [place] [address] NEUTROPHILS ABSOLUTE COUNT BY AUTOMATED COUNT 4.1 10*3/uL Normal 1.5-6.6 [facility] Comment on above: Performed By: #### C BCA, 92170-5, ENAP, 77600-3, LIVR, 1987-03, AHP, FINANCE OFFICER, 34311-2 #### [facility] ([id number]) [address], [address] [place] [address] NEUTROPHILS RELATIVE PERCENT BY AUTOMATED COUNT 68.5 % Normal [facility] Comment on above: Performed By: #### C BCA, 06522-8, ENAP, 68637-7, LIVR, 1987-03, AHP, FINANCE OFFICER, 92661-5 #### [facility] ([id number]) [address], [address] [place] [address] Platelet mean volume (Bld) [Entitic vol] 9.1 fL Normal 7-12 [facility] Comment on above: Performed By: #### C BCA, 90653-6, ENAP, 25062-2, LIVR, 1987-03, AHP, FINANCE OFFICER, 50719-8 #### [facility] ([id number]) [address], [address] [address] Platelets (Bld) [#/Vol] 270 10*3/uL Normal 150-450 [facility] Comment on above: Performed By: #### C BCA, 08878-5, ENAP, 85581-1, LIVR, 1987-03, AHP, FINANCE OFFICER, 80637-0 #### [facility] ([id number]) [address], [address] [place] [address] RBC COUNT 4.20 X10E12/L Normal 3.8-5.2 [facility] Comment on above: Performed By: #### C BCA, 63026-7, ENAP, 99938-9, LIVR, 1987-03, AHP, FINANCE OFFICER, 48968-0 #### [facility] ([id number]) [address], [address] [place] [address] WBC (Bld) [#/Vol] 5.9 10*3/uL Normal 4-11 [facility] Comment on above: Performed By: #### C BCA, 98965-0, ENAP, 10812-8, LIVR, 1987-03, AHP, FINANCE OFFICER, 91123-3 #### [facility] ([id number]) [address], [address] [place] [address] ERYTHROCYTE SEDIMENTATION RA TE (ESR)on 06-08-2025 ESR, ERYTHROCYTE SEDIMENTATION RATE 33 mm/h High 0-30 [facility] Comment on above: Performed By: #### C BCA, 25715-3, ENAP, 63973-0, LIVR, 1987-03, AHP, FINANCE OFFICER, 04053-9 #### [facility] ([id number]) [address], [address] [place] [address] HAPTOGLOBINon 06-08-2025 HAPTOGLOBIN 215 mg/dL Normal 32-228 [facility] Comment on above: Performed By: #### C BCA, 85038-1, ENAP, 10939-4, LIVR, 1987-03, AHP, FINANCE OFFICER, 20930-6 #### [facility] ([id number]) [address], [address] [place] [address] LDL CHOLESTEROL, DIRECTon Cholesterol in LDL [Mass/Vol] 60 mg/dL Normal <=130 [facility] Comment on above: Result Comment: LDL <100 mg/dL - Desirable LDL 130-159 mg/dL - Borderline High Risk LDL >160 mg/dL - High Risk Performed By: #### C BCA, 95164-9, ENAP, 24511-4, LIVR, 1987-03, AHP, FINANCE OFFICER, 27085-0 #### [facility] ([id number]) [address], [address] [place] [address] LIVER PANELon 06-08-2025 Albumin [Mass/Vol] 4.4 g/dL Normal 3.2-5.3 [facility] Comment on above: Performed By: #### C BCA, 94331-6, ENAP, 68951-0, LIVR, 1987-03, AHP, FINANCE OFFICER, 35103-1 #### [facility] ([id number]) [address], [address] [place] [address] ALP [Catalytic activity/Vol] 87 U/L Normal 39-130 [facility] Comment on above: Performed By: #### C BCA, 15808-8, ENAP, 84671-4, LIVR, 1987-03, AHP, FINANCE OFFICER, 49935-4 #### [facility] ([id number]) [address], [address] [place] [address] ALT [Catalytic activity/Vol] 7 U/L Normal <=31 [facility] Comment on above: Performed By: #### C BCA, 87644-4, ENAP, 06797-4, LIVR, 1987-03, AHP, FINANCE OFFICER, 78111-7 #### [facility] ([id number]) [address], [address] [place] [address] AST [Catalytic activity/Vol] 25 U/L Normal <=41 [facility] Comment on above: Performed By: #### C BCA, 01404-5, ENAP, 06403-4, LIVR, 1987-03, AHP, FINANCE OFFICER, 48040-6 #### [facility] ([id number]) [address], [address] [place] [address] Bilirubin [Mass/Vol] 1.5 mg/dL High 0.3-1.2 [facility] Comment on above: Performed By: #### C BCA, 85362-3, ENAP, 70670-1, LIVR, 1987-03, AHP, FINANCE OFFICER, 52337-7 #### [facility] ([id number]) [address], [address] [place] [address] Bilirubin.indirect [Mass/Vol] 0.3 mg/dL Normal <=0.4 [facility] Comment on above: Performed By: #### C BCA, 03943-3, ENAP, 68678-9, LIVR, 1987-03, AHP, FINANCE OFFICER, 30933-4 #### [facility] ([id number]) [address], [address] [place] [address] Protein [Mass/Vol] 7.2 g/dL Normal 6.0-8.0 [facility] Comment on above: Performed By: #### C BCA, 90973-1, ENAP, 45390-2, LIVR, 1986-, AHP, FINANCE OFFICER, 01967-3 #### [facility] ([id number]) [address] [place] [address] [place] [facility] WO CONT/INCL SCORINGon 05-03-2025 CT [facility] WO CONT/INCL SCORING CT [facility] WO CONT/INCL SCORING Noncontrast gated CT heart for coronary calcium scoring Clinical history:Health care maintenance. Comparison: None. TECHNIQUE: Gated noncontrast CT of the heart was obtained utilizing a [address] scanner. A separate workstation was utilized [...] using the interactive NEAL form found at [email or web address].neal-nhlbi .org} Individual major vessel AJ-130 scores are: LM [...] between 6 and 8 mm. In a high-risk patient with a solid nodule of 6-8 mm, recommend CT at 6-12 months. If stable, then CT at 18-24 months. Consider further evaluation if there is multi-vessel or left main predominant disease present. Limitations: This report is limited to the cardiac findings from this examination. ____ Calcium Score interpretation and guidelines for asymptomatic [...] From the Fleischner Society 2017. Radiology. 2017 Lei;284(1):228-243. Finalized by Frederic Mays DO on 05/03/2025 1:25 PM [facility] DEXA ICARIA SCAN CENTRAL SK Gage 05-03-2025 DEXA ICARIA SCAN CENTRAL SKELETAL DEXA ICARIA SCAN CENTRAL SKELETAL CLINICAL HISTORY: Osteoporosis screening. Health care maintenance. [...] Ashok Valencia MD on 05/03/2025 8:47 AM Normal [facility] POCT EKGOrdered By: Annalise dugan on 05-03-2025 [facility] URINALYSISon 05-03-2025 Bilirubin Ql (U) Negative Normal Negative [facility] Comment on above: Performed By: #### U A ####[facility] ([facility])[address], [place] [address] VIR BLOOD/HGB Negative Normal Negative [facility] Comment on above: Performed By: #### U A ####[facility] ([facility])[address], [place] [address] VIR Color (U) Colorless Normal Yellow, Colorless [facility] Comment on above: Performed By: #### U A ####[facility] ([facility] [facility], [place] [address] VIR Glucose Ql (U) Negative Normal Negative [facility] Comment on above: Performed By: #### U A ####[facility] ([facility])[address], [place] [address] VIR Ketones Ql (U) Negative Normal Negative [facility] Comment on above: Performed By: #### U A ####[facility] ([facility])[address], [place] [address] VIR Leukocyte esterase Test strip Ql (U) Negative Normal Negative [facility] Comment on above: Performed By: #### U A ####[facility] ([facility])[address], [place] [address] VIR Nitrite Ql (U) Negative Normal Negative [facility] Comment on above: Performed By: #### U A ####[facility] ([facility])[address], [place] [address] VIR PH,URINE 6.5 Normal 5.0-8.5 [facility] Comment on above: Performed By: #### U A ####[facility] ([facility])[address], [place] [address] VIR Protein Ql (U) Negative Normal Negative [facility] Comment on above: Performed By: #### U A ####[facility] ([facility])[address], [place] [address] VIR Specific gravity (U) [Rel density] 1.011 Normal 1.003-1.035 [facility] Comment on above: Performed By: #### U A ####[facility] ([facility])[address], [place] [address] VIR TURBIDITY Clear Normal Clear [facility] Comment on above: Performed By: #### U A ####[facility] ([facility])[address], [place] [address] VIR UROBILINOGEN <1.1 eu/dL Normal <1.1 eu/dL [facility] Comment on above: Performed By: #### U A ####[facility] ([facility])[address] [facility] [address], [place] [address] VIR URINE CULTUREon 05-03-2025 Bacteria identified Cx Nom (U) CULTURE RESULTS NO GROWTH AT <1000 CFU/mL Normal [facility] Comment on above: Order Comment: Dysur ia, frequency Performed By: #### U C ####[facility] ([facility])[address] [place] [address] VIR APOLIPOPROTEIN A1, Son 04-25 APOLIPOPROTEIN A1 189 mg/dL Normal >=140 [facility] Comment on above: Result Comment: Test Performed by: [facility] [employer] [facility] [address] [place] [address] Marketing Research Analyst: Sam Dukes Ph.D.; CLIA# [id number] Performed By: #### A PA1S ####[employer] ([facility])[address] [place] [address] VIR APOLIPOPROTEIN B, Son 2024 Apolipoprotein B [Mass/Vol] 66 mg/dL Normal [facility] Comment on above: Result Comment: REFERENCE VALUE Desirable: <90 Above Desirable: 90-99 Borderline high: 100-119 High: 120-139 Very high: > or = 140 Test Performed by: [facility] [employer] [facility] [address] [place] [address] Marketing Research Analyst: Sam Dukes Ph.D.; CLIA# [id number] Performed By: #### A POLBS ####[employer] ([place])[address] [place] [address] VIR ARUP GENERIC TEST RESULT SEE NOTE Normal [facility] Comment on above: Result Comment: Test name Result Flag Units RefIntvl Testosterone by Beam Warper 13 ng/dL 5-32 REFERENCE INTERVAL: Testosterone by Beam Warper Females Premenopausal 9-55 ng/dL Postmenopausal 5-32 ng/dL INTERPRETIVE INFORMATION: Testosterone by Beam Warper Free or bioavailable testosterone measurements may provide supportive information. For individuals on testosterone-suppressing hormone therapies (e.g., antiandrogens or estrogens), refer to cisgender female reference intervals. For a complete set of all established reference intervals, refer to Parchment/Tests/Pub/[id number]. This test was developed and its performance characteristics determined by [facility]. It has not been cleared or approved by the [place] Food and Drug Administration. This test was performed in a CLIA certified laboratory and is intended for clinical purposes. Sex Hormone Binding Globulin 65 nmol/L 17-125 REFERENCE INTERVAL: Sex Hormone Binding Globulin Access complete set of age- and/or gender-specific reference intervals for this test in the [employer] Test Directory ([employer]). Testosterone, Free by Beam Warper 1.4 pg/mL 0.6-3.8 INTERPRETIVE INFORMATION: Testosterone, Free by Beam Warper Free testosterone concentration is calculated using total testosterone (measured by mass spectrometry) and the binding constant of testosterone and sex hormone-binding globulin (SHBG). For individuals on testosterone-suppressing hormone therapies (e.g., antiandrogens or estrogens), refer to cisgender female reference intervals. For a complete set of all established reference intervals, refer to Parchment/Tests/Pub/[id number]. This test was developed and its performance characteristics determined by [facility]. It has not been cleared or approved by the US Food and Drug Administration. This test was performed in a CLIA certified laboratory and is intended for clinical purposes. Performed By: [facility] [address] [place] [address] Toolmaker Helper: Kwame Marion MD, PhD CLIA Number: [id number] Performed By: #### A GO ####[employer] ([employer])[address] [place] [address] VIR BILIRUBIN, DIRECTon 04-25-20 25 Bilirubin.indirect [Mass/Vol] 0.3 mg/dL Normal <=0.4 [facility] Comment on above: Performed By: #### D TEREZA ####[facility] ([facility])[address], [place] [address] VIR CBC WITH AUTO DIFFERENTIALon 04-25-2025 BASOPHILS ABSOLUTE COUNT (10*3/UL) BY AUTOMATED COUNT 0.0 10*3/uL Normal 0.0-0.2 [facility] Comment on above: Performed By: #### C BCA #### [facility] ([facility]) [address] [place] [address] VIR BASOPHILS RELATIVE PERCENT BY AUTOMATED COUNT 0.5 % Normal [facility] Comment on above: Performed By: #### C BCA #### [facility] ([facility]) [address] [place] [address] VIR CELLAVISION DIFFERENTIAL TYPE AUTOMATED DIFFERENTIAL Normal [facility] Comment on above: Performed By: #### C BCA #### [facility] ([facility]) [address] [place] [address] VIR Eosinophils (Bld) [#/Vol] 0.3 10*3/uL Normal 0.0-0.4 [facility] Comment on above: Performed By: #### C BCA #### [facility] ([facility]) [address] [place] [address] VIR EOSINOPHILS RELATIVE PERCENT BY AUTOMATED COUNT 4.9 % Normal [facility] Comment on above: Performed By: #### C BCA #### [facility] ([facility]) [address] [place] [address] VIR Erythrocyte distribution width (RBC) [Ratio] 14.8 % Normal 11.5-15 [facility] Comment on above: Performed By: #### C BCA #### [facility] ([facility]) [address] [place] [address] VIR Hematocrit (Bld) [Volume fraction] 34.0 % Low 35-47 [facility] Comment on above: Performed By: #### C BCA #### [facility] ([facility]) [address] [place] [address] VIR Hemoglobin (Bld) [Mass/Vol] 11.4 g/dL Low 11.7-15.5 [facility] Comment on above: Performed By: #### C BCA #### [facility] ([facility]) [address] [place] [address] VIR LYMPHOCYTES ABSOLUTE COUNT (10*3/UL) BY AUTOMATED COUNT 1.3 10*3/uL Normal 1.0-3.5 [facility] Comment on above: Performed By: #### C BCA #### [facility] ([facility]) [address] [place] [address] VIR LYMPHOCYTES RELATIVE PERCENT BY AUTOMATED COUNT 20.5 % Normal [facility] Comment on above: Performed By: #### C BCA #### [facility] ([facility]) [address] [place] [address] VIR MCH (RBC) [Entitic mass] 30.8 pg Normal 27-34 [facility] Comment on above: Performed By: #### C BCA #### [facility] ([facility]) [address] [place] [address] VIR MCHC (RBC) [Mass/Vol] 33.5 g/dL Normal 32-36 [facility] Comment on above: Performed By: #### C BCA #### [facility] ([facility]) [address] [place] [address] VIR MCV (RBC) [Entitic vol] 92 fL Normal 80-100 [facility] Comment on above: Performed By: #### C BCA #### [facility] ([facility]) [address] [place] [address] VIR MONOCYTES ABSOLUTE COUNT (10*3/UL) BY AUTOMATED COUNT 0.5 10*3/uL Normal 0.0-0.9 [facility] Comment on above: Performed By: #### C BCA #### [facility] ([facility]) [address] [place] [address] VIR MONOCYTES RELATIVE PERCENT BY AUTOMATED COUNT 7.4 % Normal [facility] Comment on above: Performed By: #### C BCA #### [facility] ([facility]) [address] [place] [address] VIR NEUTROPHILS ABSOLUTE COUNT BY AUTOMATED COUNT 4.2 10*3/uL Normal 1.5-6.6 [facility] Comment on above: Performed By: #### C BCA #### [facility] ([facility]) [address] [place] [address] VIR NEUTROPHILS RELATIVE PERCENT BY AUTOMATED COUNT 66.7 % Normal [facility] Comment on above: Performed By: #### C BCA #### [facility] ([facility]) [address] [place] [address] VIR Platelet mean volume (Bld) [Entitic vol] 8.8 fL Normal 7-12 [facility] Comment on above: Performed By: #### C BCA #### [facility] ([facility]) [address] [place] [address] VIR Platelets (Bld) [#/Vol] 254 10*3/uL Normal 150-450 [facility] Comment on above: Performed By: #### C BCA #### [facility] ([facility]) [address] [place] [address] VIR RBC COUNT 3.71 X10E12/L Low 3.8-5.2 [facility] Comment on above: Performed By: #### C BCA #### [facility] ([facility]) [address] [place] [address] VIR WBC (Bld) [#/Vol] 6.3 10*3/uL Normal 4-11 [facility] Comment on above: Performed By: #### C BCA #### [facility] ([facility]) [address] [place] [address] VIR COMPREHENSIVE METABOLIC PANE Martin 04-25-2025 Albumin [Mass/Vol] 4.7 g/dL Normal 3.2-5.3 [facility] Comment on above: Order Comment: Patie nt Instructions: Fast 12 hours Performed By: #### C MP ####[facility] ([facility])[address], [place] [address] VIR ALP [Catalytic activity/Vol] 76 U/L Normal 39-130 [facility] Comment on above: Order Comment: Patie nt Instructions: Fast 12 hours Performed By: #### C MP ####[facility] ([facility])[address], [place] [address] VIR ALT [Catalytic activity/Vol] 6 U/L Normal <=31 [facility] Comment on above: Order Comment: Patie nt Instructions: Fast 12 hours Performed By: #### C MP ####[facility] ([facility])[address], [place] [address] VIR Anion gap [Moles/Vol] 12 mmol/L Normal 5-15 [facility] Comment on above: Order Comment: Patie nt Instructions: Fast 12 hours Performed By: #### C MP ####[facility] ([facility])[address], [place] [address] VIR AST [Catalytic activity/Vol] 27 U/L Normal <=41 [facility] Comment on above: Order Comment: Patie nt Instructions: Fast 12 hours Performed By: #### C MP ####[facility] ([facility])[address], [place] [address] VIR Bilirubin [Mass/Vol] 1.8 mg/dL High 0.3-1.2 [facility] Comment on above: Order Comment: Patie nt Instructions: Fast 12 hours Performed By: #### C MP ####[facility] ([facility])[address], [place] [address] VIR Calcium [Mass/Vol] 10.1 mg/dL Normal 8.5-10.5 [facility] Comment on above: Order Comment: Patie nt Instructions: Fast 12 hours Performed By: #### C MP ####[facility] ([facility])[address] [address] VIR Chloride [Moles/Vol] 97 mmol/L Low 98-109 [facility] Comment on above: Order Comment: Patie nt Instructions: Fast 12 hours Performed By: #### C MP ####[facility] ([facility])[address] [address] VIR CO2 [Moles/Vol] 31 mmol/L Normal 22-32 [facility] Comment on above: Order Comment: Patie nt Instructions: Fast 12 hours Performed By: #### C MP ####[facility] ([facility])[address] [address] VIR Creatinine [Mass/Vol] 1.24 mg/dL High 0.40-1.00 [facility] Comment on above: Order Comment: Patie nt Instructions: Fast 12 hours Result Comment: METH OD TRACEABLE TO IDMS STANDARD Performed By: #### C MP ####[facility] ([facility])[address] [address] VIR GFR/1.73 sq M.predicted among non-blacks MDRD (S/P/Bld) [Vol rate/Area] 46 mL/min/{1.73_m2} Low >=60 [facility] Comment on above: Order Comment: Patie nt Instructions: Fast 12 hours Result Comment: Repo rted eGFR is based on the CKD-EPI 2020 equation that does not use a race coefficient. Performed By: #### C MP ####[facility] ([facility])[address] [address] VIR Glucose [Mass/Vol] 98 mg/dL Normal 65-99 [facility] Comment on above: Order Comment: Patie nt Instructions: Fast 12 hours Performed By: #### C MP ####[facility] ([facility])[address], [place] [address] VIR Potassium [Moles/Vol] 4.2 mmol/L Normal 3.5-5.0 [facility] Comment on above: Order Comment: Patie nt Instructions: Fast 12 hours Performed By: #### C MP ####[facility] ([facility])[address], [place] [address] VIR Protein [Mass/Vol] 7.8 g/dL Normal 6.0-8.0 [facility] Comment on above: Order Comment: Patie nt Instructions: Fast 12 hours Performed By: #### C MP ####[facility] ([facility])[address], [place] [address] VIR Sodium [Moles/Vol] 140 mmol/L Normal 134-146 [facility] Comment on above: Order Comment: Patie nt Instructions: Fast 12 hours Performed By: #### C MP ####[facility] ([facility])[address], [place] [address] VIR Urea nitrogen [Mass/Vol] 36 mg/dL High 5-27 [facility] Comment on above: Order Comment: Patie nt Instructions: Fast 12 hours Performed By: #### C MP ####[facility] ([facility])[address], [place] [address] VIR CORTISOLon 04-25-2025 CORTISOL, TOTAL 21.2 ug/dL Normal [facility] Comment on above: Order Comment: Due t o the diurnal variation of cortisol levels in normal subjects, all cortisol measurments should be referenced to the time of day of sample collection. AM Cortisol Age>=6 6.7-22.4 ug/dL PM Cortisol Age>=6 <10 ug/dL Performed By: #### C ORT #### [facility] ([facility]) [address] [place] [address] VIR DHEA-SULFATEon 04-25-2025 DHEA S 71 ug/dL Normal 7-177 [facility] Comment on above: Performed By: #### D HEAS ####[facility] ([facility])[address] [address] VIR DIHYDROTESTOSTERONE, Son DIHYDROTESTOSTERONE <50 Normal <=128 [facility] Comment on above: Result Comment: ADDITIONAL INFORMATION This test was developed and its performance characteristics determined by [facility] in a manner consistent with CLIA requirements. This test has not been cleared or approved by the U.S. Food and Drug Administration. Test Performed by: [facility] - [facility] [address] [place] [address] Marketing Research Analyst: Sam Dukes Ph.D.; CLIA# [id number] Performed By: #### D HSTR ####[facility] [employer] (SDL)[address] [place] [id number] VIR ERYTHROCYTE SEDIMENTATION RA TE (ESR)on 04-25-2025 ESR, ERYTHROCYTE SEDIMENTATION RATE 67 mm/h High 0-30 [facility] Comment on above: Performed By: #### E SR ####[facility] ([facility])[address] [address] VIR ESTRADIOLon 04-25-2025 ESTRADIOL <^15.0 Normal [facility] Comment on above: Order Comment: NON-P REGNANT FEMALES Mid follicular: 25-115 pg/mLOvulatory Peak: 32.1-517 pg/mLMid Luteal: 36.5-246 pg/mLPost-Menopausal Females: <15.0-25.1 pg/mL(Not on hormone therapy) The Access Sensitive Estradiol assay resultsare not intended to be used to measure theeffectiveness of exogeneous Estradiolsupplementation, for example, when the patientis on hormone replacement therapy.The presence of estradiol drug analogues andtheir metabolites could have an impact onestradiol recovery when using this assay. Performed By: #### E STD ####[facility] ([facility])[address], [place] [address] VIR FERRITINon 04-25-2025 Ferritin [Mass/Vol] 90 ng/mL Normal 11-307 [facility] Comment on above: Performed By: #### F ERR ####[facility] ([facility])[address], [place] [address] VIR FOLLICLE STIMULATING HORMONE on 04-25-2025 FOLLICLE STIM HORMONE 24.9 mIU/mL Normal [facility] Comment on above: Order Comment: KARISHMA L FEMALE:Luteal 1.8-5.1 mIU/mLFollicular 3.8-8.8 mIU/mLMid Cycle 4.5-22.5 mIU/mLPost [place]on 16.7-113.6 mIU/mL Performed By: #### F SH ####[facility] ([facility])[address], [place] [address] VIR GGTon 04-25-2025 Gamma glutamyl transferase [Catalytic activity/Vol] 23 U/L Normal 9-33 [facility] Comment on above: Performed By: #### G GT ####[facility] ([facility])[address], [place] [address] VIR HEMOGLOBIN A1Con 04-25-2025 Glucose [Mass/Vol] 126 mg/dL Normal [facility] Comment on above: Performed By: #### H A1C ####[facility] ([facility])[address], [place] [address] VIR HbA1c (Bld) [Mass fraction] 6.0 % High 4.4-5.6 [facility] Comment on above: Result Comment: ADA Guidelines Result HgbA1c Normal : less than 5.7 % Prediabetes : 5.7 % to 6.4 % Diabetes : > 6.4 % Use with caution in patients with abnormal hemoglobin variants as the half-life of red blood cells and in vivo glycation rates are affected. Performed By: #### H A1C ####[facility] ([facility])[address] [address] VIR HEPATITIS C(HCV) ANTIBODY W/ REFLEX TO PCRon 04-25-2025 ANTI HCV W/PCR REFLX Non-Reactive Normal Non-Reactive [facility] Comment on above: Result Comment: If r ecent infection suspected, recommend repeat testing (>2 months). Gjhdie-kc-izoisr ratio is <1.0. Performed By: #### H CV ####[facility] ([facility])[address] [address] VIR HIGH SENSITIVITY CRPon 04-25 HS CRP 0.020 mg/dL Normal 0.000-0.744 [facility] Comment on above: Order Comment: Hs-CR P FOR CARDIAC RISK ASSESSMENT: By this method, [...] and can be elevated in other conditions. Performed By: #### H SCRP ####[facility] ([facility])[address] [address] VIR HOMOCYSTEINE, PLASMAon 04-25 HOMOCYSTEINE 36.45 umol/L High 3.36-20.44 [facility] Comment on above: Performed By: #### H MCY #### [facility] ([facility]) [address] [facility] [address] [place] [address] VIR INSULINon 04-25-2025 INSULIN 2.24 uIU/mL Normal 1.00-23.00 [facility] Comment on above: Order Comment: Patie nt Instructions: Fast 12 hoursRef. range is for FASTING NON-DIABETIC POPULATION. Performed By: #### I NSL ####[facility] ([facility])[address], [place] [address] VIR INSULIN-LIKE GFB PROTEIN 3on 04-25-2025 IGFBP-3 4.9 mcg/mL Normal 2.8-5.7 [facility] Comment on above: Result Comment: Test Performed by: [facility] [address] [place] [address] Marketing Research Analyst: Sam Dukes Ph.D.; CLIA# [id number] Performed By: #### I GFB3 ####[facility] ([facility])[address] [place] [address] VIR IRON AND TIBCon 04-25-2025 Iron [Mass/Vol] 141 ug/dL Normal 50-170 [facility] Comment on above: Performed By: #### F EPR ####[facility] ([facility])[address], [place] [address] VIR IRON BINDING 378 ug/dL Normal 250-425 [facility] Comment on above: Performed By: #### F EPR ####[facility] ([facility])[address], [place] [address] VIR IRON SATURATION 37 % SATURATION Normal 15-50 [facility] Comment on above: Performed By: #### F EPR ####[facility] ([facility])[address], [place] [address] VIR Transferrin [Mass/Vol] 270 mg/dL Normal 168-336 [facility] Comment on above: Performed By: #### F EPR ####[facility] ([facility])[address], [place] [address] VIR LDHon 04-25-2025 LDH 371 U/L High 100-235 [facility] Comment on above: Performed By: #### L DH ####[facility] ([facility])[address], [place] [address] VIR LIPID PROFILEon 04-25-2025 Cholesterol [Mass/Vol] 171 mg/dL Normal 150-200 [facility] Comment on above: Order Comment: Patie nt Instructions: Fast 12 hours Performed By: #### L IPR ####[facility] ([facility])[address], [place] [address] VIR Cholesterol in HDL [Mass/Vol] 82 mg/dL Normal >39 [facility] Comment on above: Order Comment: Patie nt Instructions: Fast 12 hours Result Comment: HDL <40 mg/dL - High Risk HDL > or = 40mg/dL- Desirable HDL >60 mg/dL - Negative Risk Performed By: #### L IPR ####[facility] ([facility])[address], [place] [address] VIR Cholesterol in LDL [Mass/Vol] 80 mg/dL Normal <130 [facility] Comment on above: Order Comment: Patie nt Instructions: Fast 12 hours Result Comment: LDL <100 mg/dL - Desirable LDL >160 mg/dL - High Risk Performed By: #### L IPR ####[facility] ([facility])[address], [place] [address] VIR CHOLESTEROL:HDL 2.1 Normal 1.0-5.0 [facility] Comment on above: Order Comment: Patie nt Instructions: Fast 12 hours Performed By: #### L IPR ####[facility] ([facility])[address], [place] [address] VIR Triglyceride [Mass/Vol] 46 mg/dL Normal 27-150 [facility] Comment on above: Order Comment: Patie nt Instructions: Fast 12 hours Performed By: #### L IPR ####[facility] ([facility])[address], [place] [address] VIR VERY LOW LIPOPROTEIN 9 mg/dL Normal 0-30 [facility] Comment on above: Order Comment: Patie nt Instructions: Fast 12 hours Performed By: #### L IPR ####[facility] ([facility])[address] [address] VIR LIPOPROTEIN(A), Son 04-25-20 25 Lipoprotein a [Mass/Vol] mg/dL Normal <75 [facility] Comment on above: Result Comment: ADDITIONAL INFORMATION Please notice that Lp(a) [...] This test has been modified from the supervisor coal handling's instructions. Its performance characteristics were determined by [facility] in a manner consistent with CLIA requirements. This test has not been cleared or approved by the U.S. Food and Drug Administration. Test Performed by: [facility] [place] [address] Marketing Research Analyst: Sam Dukes Ph.D.; CLIA# [id number] Performed By: #### L IPA1 ####[facility] ([facility])[address] [place] [address] VIR LUTEINIZING HORMONEon 2024 LUTEINIZING HORMONE 0.9 mIU/mL Normal [facility] Comment on above: Order Comment: KARISHMA L FEMALEFollicular 2.1-10.9 mIU/mLMid Cycle 19.2-103 mIU/mLLuteal 1.2-12.9 mIU/mLPost [place] 10.9-58.6 mIU/mL Performed By: #### L H ####[facility] ([facility])[address] [address] VIR MAGNESIUMon 04-25-2025 Magnesium [Mass/Vol] 2.2 mg/dL Normal 1.8-2.6 [facility] Comment on above: Performed By: #### M G ####[facility] ([facility])[address] [address] VIR MICROALBUMIN / CREATININE UR INE RATIOon 04-25-2025 Albumin DL <= 20 mg/L (U) [Mass/Vol] 1.0 mg/dL Normal 0.0-1.9 [facility] Comment on above: Performed By: #### M ALBU ####[facility] ([facility])[address] [address] VIR MALB/CREAT RATIO 53.2 mg/g High 0.0-30.0 [facility] Comment on above: Performed By: #### M ALBU ####[facility] ([facility])[address] [address] VIR URINE CREATININE,RDM 18.80 mg/dL Normal [facility] Amb[facility] Comment on above: Performed By: #### M ALBU ####[facility] ([facility])[address] [address] VIR MR ICARIA BODYon 04-25-2025 MR ICARIA BODY MR ICARIA BODY MR ICARIA BODY CLINICAL INFORMATION: Health care [...] Ashok Kramer MD on 04/25/2025 1:34 PM Normal [facility] MR ICARIA CARDIACon 04-25-20 MR ICARIA CARDIAC MR ICARIA CARDIAC MR ICARIA CARDIAC CLINICAL INFORMATION: Health care [...] J Cardiovasc Magn Reson 22, 87 (2020). [email or web address] Finalized by Ashok Kramer MD on 04/25/2025 1:30 PM Normal [facility] MR ICARIA NEUROon 04-25-2025 MR ICARIA NEURO MR ICARIA NEURO MR ICARIA NEURO CLINICAL INFORMATION: Health care maintenance TECHNIQUE: Multiplanar multisequence MR imaging of the brain and pokagon of [place] was performed on a 3 [place] superconducting Siemens unit, without intravenous contrast. Whole-body multisequence screening MRI performed without contrast, selective interpretation of the neck portions; remaining chest, abdomen, and pelvis is reported separately. Volume rendered 3-D post processed reformatted images were generated at an independent workstation, with [employer] automated segmentation analysis, to further define anatomy [...] thecal sac stenosis at C5-C6. IMPRESSION: * Ukgg-la-mmchyfwr burden white matter FLAIR hyperintensities, most often seen in the setting of chronic microvascular ischemia. * Unremarkable pokagon of Garrido MRA. * Several brain parenchymal [...] Kam Moon MD on 04/25/2025 12:05 PM Normal [facility] PHOSPHORUSon 04-25-2025 Phosphate [Mass/Vol] 3.7 mg/dL Normal 2.4-4.9 [facility] Amb[facility] Comment on above: Performed By: #### P HOS ####[facility] ([facility])[address] [address] VIR PROGESTERONEon 04-25-2025 PROGESTERONE 0.9 ng/mL Normal [facility] Comment on above: Result Comment: PREG NANT FEMALES: 1st Tri: 4.7-50.7 ng/ml 2nd Tri: 19.4-45.3 ng/ml MENSTRUATING FEMALES: Follicular: 0.3-1.5 ng/ml Mid Luteal: 5.2-18.6 ng/ml Post [place]: <0.1-0.8 ng/ml Performed By: #### P RGST ####[facility] ([facility])[address] [facility] [address], [place] [address] VIR PROLACTINon 04-25-2025 PROLACTIN 1.0 ng/mL Low 2.7-19.6 [facility] Comment on above: Performed By: #### P ROL ####[facility] ([facility])[address], [place] [address] VIR SEX HORMONE BINDING GLOBULIN on 04-25-2025 SEX HORMONE BINDING GLOBULIN 60.4 nmol/L Normal 16.8-125.2 [facility] Comment on above: Result Comment: PT T YPE AGE RANGE MALES 20-50Y 13.3-89.5 mmol/L FEMALES 20-46Y 18.2-135.5 mmol/L FEMALES POSTMENO 47-91Y 16.8-125.2 mmol/L Performed By: #### S HBG ####[facility] ([facility])[address] [facility] [address], [place] [address] VIR T3, FREEon 04-25-2025 Free T3 [Mass/Vol] 2.59 pg/mL Normal 2.50-3.90 [facility] Ambulatory [facility] Comment on above: Performed By: #### F T3 ####[facility] ([facility])[address] [facility] [address], [place] [address] VIR T4, FREEon 04-25-2025 Free T4 [Mass/Vol] 1.43 ng/dL Normal 0.61-1.60 [facility] Amb[facility] Comment on above: Performed By: #### F T4 #### [facility] ([facility]) [address] [place] [address] VIR TESTOSTERONE, TOTAL AND FREE , Son 04-25-2025 TESTOSTERONE, TOTAL AND FREE, S TESTF TESTOSTERONE, TOTAL AND FREE, S Cancelled Normal [facility] TSHon 04-25-2025 TSH 1.63 uIU/mL Normal 0.49-4.67 [facility] Comment on above: Performed By: #### T SH #### [facility] ([facility]) [address] [place] [address] VIR URIC ACIDon 04-25-2025 Urate [Mass/Vol] 5.4 mg/dL Normal 2.6-7.2 [facility] Amb[facility] Comment on above: Performed By: #### U INDRA ####[facility] ([facility])[address] [facility] [address], [place] [address] VIR URINALYSISon 04-25-2025 Bilirubin Ql (U) Negative Normal Negative [facility] Comment on above: Order Comment: Urine received without preservative. Delays in transport may affect results. Interpret with caution. A clinical correlation is recommended. Performed By: #### U A ####[facility] ([facility])[address] [facility] [address], [place] [address] VIR BLOOD/HGB Negative Normal Negative [facility] Comment on above: Order Comment: Urine received without preservative. Delays in transport may affect results. Interpret with caution. A clinical correlation is recommended. Performed By: #### U A ####[facility] ([facility])[address] [facility] [address], [place] [address] VIR Color (U) Colorless Normal Yellow, Colorless [facility] Comment on above: Order Comment: Urine received without preservative. Delays in transport may affect results. Interpret with caution. A clinical correlation is recommended. Performed By: #### U A ####[facility] ([facility])[address] [facility] [address], [place] [address] VIR Glucose Ql (U) Negative Normal Negative [facility] Comment on above: Order Comment: Urine received without preservative. Delays in transport may affect results. Interpret with caution. A clinical correlation is recommended. Performed By: #### U A ####[facility] ([facility])[address] [facility] [address], [place] [address] VIR Ketones Ql (U) Negative Normal Negative [facility] Comment on above: Order Comment: Urine received without preservative. Delays in transport may affect results. Interpret with caution. A clinical correlation is recommended. Performed By: #### U A ####[facility] ([facility])[address] [facility] [address], [place] [address] VIR Leukocyte esterase Test strip Ql (U) Negative Normal Negative [facility] Comment on above: Order Comment: Urine received without preservative. Delays in transport may affect results. Interpret with caution. A clinical correlation is recommended. Performed By: #### U A ####[facility] ([facility])[address] [facility] [address], [place] [address] VIR Nitrite Ql (U) Negative Normal Negative [facility] Comment on above: Order Comment: Urine received without preservative. Delays in transport may affect results. Interpret with caution. A clinical correlation is recommended. Performed By: #### U A ####[facility] ([facility])[address] [facility] [address], [place] [address] VIR PH,URINE 7.0 Normal 5.0-8.5 [facility] Comment on above: Order Comment: Urine received without preservative. Delays in transport may affect results. Interpret with caution. A clinical correlation is recommended. Performed By: #### U A ####[facility] ([facility])[address] [facility] [address], [place] [address] VIR Protein Ql (U) Negative Normal Negative [facility] Comment on above: Order Comment: Urine received without preservative. Delays in transport may affect results. Interpret with caution. A clinical correlation is recommended. Performed By: #### U A ####[facility] ([facility])[address] [facility] [address], [place] [address] VIR Specific gravity (U) [Rel density] 1.009 Normal 1.003-1.035 [facility] Comment on above: Order Comment: Urine received without preservative. Delays in transport may affect results. Interpret with caution. A clinical correlation is recommended. Performed By: #### U A ####[facility] ([facility])[address] [facility] [address], [place] [address] VIR TURBIDITY Clear Normal Clear [facility] Comment on above: Order Comment: Urine received without preservative. Delays in transport may affect results. Interpret with caution. A clinical correlation is recommended. Performed By: #### U A ####[facility] ([facility])[address] [facility] [address], [place] [address] VIR UROBILINOGEN <1.1 eu/dL Normal <1.1 eu/dL [facility] Comment on above: Order Comment: Urine received without preservative. Delays in transport may affect results. Interpret with caution. A clinical correlation is recommended. Performed By: #### U A ####[facility] ([facility])[address] [facility] [address], [place] [address] VIR VITAMIN B12on 04-25-2025 Cobalamin (Vitamin B12) [Mass/Vol] 274 pg/mL Normal 180-914 [facility] Comment on above: Performed By: #### B 12 ####[facility] ([facility])[address], [place] [address] VIR VITAMIN D 25 HYDROXYon 04-25 VITAMIN D 25 HYD TOT 34.3 ng/mL Normal 30.0-100.0 [facility] Ambulatory P[facility] Comment on above: Order Comment: Vitam in D status 25 [place] Vitamin D Deficiency <20 ng/mLInsufficiency 20-29 ng/mLSufficiency 30-100 ng/mLToxicity >100 ng/mLNOTE: A pediatric reference range has not been established by the supervisor coal handling of this kit. The [place] [employer] recommends a Vitamin D level of = or >20ng/mL in infants and children. Performed By: #### V ITD ####[facility] ([facility])[address] [facility] [address], [place] [address] VIR APTTon 04-17-2025 aPTT Coag (Bld) [Time] 29 s Normal 26-37 [facility] Comment on above: Performed By: #### P TT ####[facility] ([facility])[address], [place] [address] VIR BEDSIDE GLUCOSEon 04-17-2025 Glucose [Mass/Vol] 114 mg/dL High 65-99 [facility] Comment on above: Performed By: #### B EDG ####[facility] ([facility])[address] [place] [address] VIR CBC WITH AUTO DIFFERENTIALon 04-17-2025 BASOPHILS ABSOLUTE COUNT (10*3/UL) BY AUTOMATED COUNT 0.0 10*3/uL Normal 0.0-0.2 [facility] Comment on above: Performed By: #### C BCA ####[facility] ([facility])[address], [place] [address] VIR BASOPHILS RELATIVE PERCENT BY AUTOMATED COUNT 0.4 % Normal [facility] Comment on above: Performed By: #### C BCA ####[facility] ([facility])[address], [place] [address] VIR CELLAVISION DIFFERENTIAL TYPE AUTOMATED DIFFERENTIAL Normal [facility] Comment on above: Performed By: #### C BCA ####[facility] ([facility])[address], [place] [address] VIR Eosinophils (Bld) [#/Vol] 0.2 10*3/uL Normal 0.0-0.4 [facility] Comment on above: Performed By: #### C BCA ####[facility] ([facility])[address], [place] [address] VIR EOSINOPHILS RELATIVE PERCENT BY AUTOMATED COUNT 2.5 % Normal [facility] Comment on above: Performed By: #### C BCA ####[facility] ([facility])[address], [place] [address] VIR Erythrocyte distribution width (RBC) [Ratio] 14.9 % Normal 11.5-15 [facility] Comment on above: Performed By: #### C BCA ####[facility] ([facility])[address], [place] [address] VIR Hematocrit (Bld) [Volume fraction] 36.3 % Normal 35-47 [facility] Comment on above: Performed By: #### C BCA ####[facility] ([facility])[address], [place] [address] VIR Hemoglobin (Bld) [Mass/Vol] 11.9 g/dL Normal 11.7-15.5 [facility] Comment on above: Performed By: #### C BCA ####[facility] ([facility])[address], [place] [address] VIR LYMPHOCYTES ABSOLUTE COUNT (10*3/UL) BY AUTOMATED COUNT 1.7 10*3/uL Normal 1.0-3.5 [facility] Comment on above: Performed By: #### C BCA ####[facility] ([facility])[address], [place] [address] VIR LYMPHOCYTES RELATIVE PERCENT BY AUTOMATED COUNT 20.2 % Normal [facility] Comment on above: Performed By: #### C BCA ####[facility] ([facility])[address], [place] [address] VIR MCH (RBC) [Entitic mass] 30.0 pg Normal 27-34 [facility] Comment on above: Performed By: #### C BCA ####[facility] ([facility])[address], [place] [address] VIR MCHC (RBC) [Mass/Vol] 32.7 g/dL Normal 32-36 [facility] Comment on above: Performed By: #### C BCA ####[facility] ([facility])[address], [place] [address] VIR MCV (RBC) [Entitic vol] 92 fL Normal 80-100 [facility] Comment on above: Performed By: #### C BCA ####[facility] ([facility])[address], [place] [address] VIR MONOCYTES ABSOLUTE COUNT (10*3/UL) BY AUTOMATED COUNT 0.7 10*3/uL Normal 0.0-0.9 [facility] Comment on above: Performed By: #### C BCA ####[facility] ([facility])[address], [place] [address] VIR MONOCYTES RELATIVE PERCENT BY AUTOMATED COUNT 8.7 % Normal [facility] Comment on above: Performed By: #### C BCA ####[facility] ([facility])[address], [place] [address] VIR NEUTROPHILS ABSOLUTE COUNT BY AUTOMATED COUNT 5.6 10*3/uL Normal 1.5-6.6 [facility] Comment on above: Performed By: #### C BCA ####[facility] ([facility])[address], [place] [address] VIR NEUTROPHILS RELATIVE PERCENT BY AUTOMATED COUNT 68.2 % Normal [facility] Comment on above: Performed By: #### C BCA ####[facility] ([facility])[address], [place] [address] VIR Platelet mean volume (Bld) [Entitic vol] 8.4 fL Normal 7-12 [facility] Comment on above: Performed By: #### C BCA ####[facility] ([facility])[address], [place] [address] VIR Platelets (Bld) [#/Vol] 255 10*3/uL Normal 150-450 [facility] Comment on above: Performed By: #### C BCA ####[facility] ([facility])[address], [place] [address] VIR RBC COUNT 3.95 X10E12/L Normal 3.8-5.2 [facility] Comment on above: Performed By: #### C BCA ####[facility] ([facility])[address], [place] [address] VIR WBC (Bld) [#/Vol] 8.3 10*3/uL Normal 4-11 [facility] Comment on above: Performed By: #### C BCA ####[facility] ([facility])[address], [place] [address] VIR COMPREHENSIVE METABOLIC PANE Martin 04-17-2025 Albumin [Mass/Vol] 4.7 g/dL Normal 3.2-5.3 [facility] Comment on above: Performed By: #### C MP ####[facility] ([facility])[address], [place] [address] VIR ALP [Catalytic activity/Vol] 88 U/L Normal 39-130 [facility] Comment on above: Performed By: #### C MP ####[facility] ([facility])[address], [place] [address] VIR ALT [Catalytic activity/Vol] 17 U/L Normal <=31 [facility] Comment on above: Performed By: #### C MP ####[facility] ([facility])[address], [place] [address] VIR Anion gap [Moles/Vol] 11 mmol/L Normal 5-15 [facility] Comment on above: Performed By: #### C MP ####[facility] ([facility])[address], [place] [address] VIR AST [Catalytic activity/Vol] 20 U/L Normal <=41 [facility] Comment on above: Performed By: #### C MP ####[facility] ([facility])[address], [place] [address] VIR Bilirubin [Mass/Vol] 0.8 mg/dL Normal 0.3-1.2 [facility] Comment on above: Performed By: #### C MP ####[facility] ([facility])[address], [place] [address] VIR Calcium [Mass/Vol] 10.3 mg/dL Normal 8.5-10.5 [facility] Comment on above: Performed By: #### C MP ####[facility] ([facility])[address], [place] [address] VIR Chloride [Moles/Vol] 96 mmol/L Low 98-109 [facility] Comment on above: Performed By: #### C MP ####[facility] ([facility])[address], [place] [address] VIR CO2 [Moles/Vol] 32 mmol/L Normal 22-32 [facility] Comment on above: Performed By: #### C MP ####[facility] ([facility])[address], [place] [address] VIR Creatinine [Mass/Vol] 1.12 mg/dL High 0.40-1.00 [facility] Comment on above: Result Comment: METH OD TRACEABLE TO IDMS STANDARD Performed By: #### C MP ####[facility] ([facility])[address], [place] [address] VIR GFR/1.73 sq M.predicted among non-blacks MDRD (S/P/Bld) [Vol rate/Area] 52 mL/min/{1.73_m2} Low >=60 [facility] Comment on above: Result Comment: Repo rted eGFR is based on the CKD-EPI 2020 equation that does not use a race coefficient. Performed By: #### C MP ####[facility] ([facility])[address], [place] [address] VIR Glucose [Mass/Vol] 112 mg/dL High 65-99 [facility] Comment on above: Performed By: #### C MP ####[facility] LABORATORY ([facility])[address], [place] [address] VIR Potassium [Moles/Vol] 4.6 mmol/L Normal 3.5-5.0 [facility] Comment on above: Performed By: #### C MP ####[facility] ([facility])[address], [place] [address] VIR Protein [Mass/Vol] 8.1 g/dL High 6.0-8.0 [facility] Comment on above: Performed By: #### C MP ####[facility] ([facility])[address], [place] [address] VIR Sodium [Moles/Vol] 139 mmol/L Normal 134-146 [facility] Comment on above: Performed By: #### C MP ####[facility] ([facility])[address], [place] [address] VIR Urea nitrogen [Mass/Vol] 30 mg/dL High 5-27 [facility] Comment on above: Performed By: #### C MP ####[facility] ([facility])[address], [place] [address] ABDOMEN AND PELVIS WO CON Ton 04-17-2025 CT ABDOMEN AND PELVIS WO CONT CT ABDOMEN AND PELVIS WO CONT EXAM: ABDOMEN AND PELVIS CT WITHOUT CONTRAST [...] Ady Ramirez MD on 04/17/2025 8:33 PM Normal [facility] CT BRAIN WO CONTon 5 CT BRAIN WO CONT CT BRAIN WO CONT EXAM: CT BRAIN WO CONT CLINICAL INFORMATION: [...] Ady Ramirez MD on 04/17/2025 8:30 PM Normal [facility] CT CHEST WO CONTon 5 CT CHEST WO CONT CT CHEST WO CONT CT CHEST WO CONT: 04/17/2025 7:41 PM [...] detection for pulmonary nodules was performed utilizing [employer] software. FINDINGS: Comparison: CT dated 01/04/2019. Nodule [...] Ed Peres MD on 04/17/2025 8:31 PM Normal [facility] LACTATE W/ REFLEXon 04-17-20 25 LACTATE W/REFLEX 0.7 mmol/L Normal 0.4-2.0 [facility] Comment on above: Order Comment: Resul t did not trigger repeat Lactate,re-order if needed. Performed By: #### C BCA, 63676-2, ENAP, 33498-3, LIVR, 1988-03, AHP, FINANCE OFFICER, 94435-5 #### [facility] ([id number]) [address] [place] [address] POCT NURSING URINE MACROSCOP IC UAon 04-17-2025 BILIRUBIN SUSAN Negative Normal Negative [facility] Comment on above: Performed By: #### C BCA, 81617-0, ENAP, 71014-2, LIVR, 1988-03, AHP, FINANCE OFFICER, 34892-9 #### [facility] ([id number]) [address] [place] [address] BLOOD/HGB SUSAN Negative Normal Negative [facility] Comment on above: Performed By: #### C BCA, 86646-9, ENAP, 37964-1, LIVR, 1988-03, AHP, FINANCE OFFICER, 50490-1 #### [facility] ([id number]) [address] [place] [address] GLUCOSE SUSAN Negative Normal Negative [facility] Comment on above: Performed By: #### C BCA, 37276-3, ENAP, 04054-2, LIVR, 1988-03, AHP, FINANCE OFFICER, 22695-8 #### [facility] ([id number]) [address] [place] [address] KETONES SUSAN Negative Normal Negative [facility] Comment on above: Performed By: #### C BCA, 34689-9, ENAP, 77134-9, LIVR, 1988-03, AHP, FINANCE OFFICER, 45481-0 #### [facility] ([id number]) [address] [place] [address] LEUKOCYTE ESTERASE SUSAN Small Abnormal Negative [facility] Comment on above: Performed By: #### C BCA, 69500-9, ENAP, 69861-1, LIVR, 1988-03, AHP, FINANCE OFFICER, 36771-5 #### [facility] ([id number]) [address] [place] [address] NITRITE SUSAN Negative Normal Negative [facility] Comment on above: Performed By: #### C BCA, 17976-7, ENAP, 82954-9, LIVR, 1988-03, AHP, FINANCE OFFICER, 93436-3 #### [facility] ([id number]) [address], [address] [place] [address] PH SUSAN 7.5 Normal 5.0, 6.0, 6.5, 7.0, 7.5, 8.0, 8.5, 5.5 [facility] Comment on above: Performed By: #### C BCA, 08366-9, ENAP, 63346-4, LIVR, 1988-03, AHP, FINANCE OFFICER, 70185-1 #### [facility] ([id number]) [address], [address] [place] [address] PROTEIN SUSAN Trace Abnormal Negative [facility] Comment on above: Performed By: #### C BCA, 81193-9, ENAP, 56662-8, LIVR, 1988-03, AHP, FINANCE OFFICER, 18912-3 #### [facility] ([id number]) [address] [place] [address] SPECIFIC GRAVITY SUSAN 1.015 Normal 1.010, 1.015, 1.020, 1.025 [facility] Comment on above: Performed By: #### C BCA, 02866-7, ENAP, 61782-1, LIVR, 1988-03, AHP, FINANCE OFFICER, 87374-4 #### [facility] ([id number]) [address] [place] [address] UROBILINOGEN SUSAN 0.2 E.U./dL Normal [facility] Comment on above: Performed By: #### C BCA, 41840-9, ENAP, 78395-5, LIVR, 1988-03, AHP, FINANCE OFFICER, 93462-3 #### [facility] ([id number]) [address] [place] [address] PROTIME AND INRon 04-17-2025 INR 1.0 Normal 0.9-1.2 [facility] Comment on above: Performed By: #### P INR ####[facility] ([facility])[address] [address] VIR PT Coag (PPP) [Time] 11.2 s Normal 9.8-13.2 [facility] Comment on above: Performed By: #### P INR ####[facility] ([facility])[address] [address] VIR T4, FREEon 04-17-2025 Free T4 [Mass/Vol] 1.46 ng/dL Normal 0.61-1.60 [facility] Comment on above: Performed By: #### F T4 ####[facility] ([facility])[address] [facility] [address], [place] [address] VIR TROP I, HIGH SENSITIVITY 1 H OURon 04-17-2025 TROPONIN I, HIGH SENSITIVITY 10 ng/L Normal <16 [facility] Comment on above: Performed By: #### C BCA, 31946-2, ENAP, 92837-2, LIVR, 1988-5, AHP, FINANCE OFFICER, 31336-6 #### [facility] ([id number]) [address] [place] [address] TROPONIN I, HIGH SENSITIVITY 0 HOURon 04-17-2025 TROPONIN I, HIGH SENSITIVITY 10 ng/L Normal <16 [facility] Comment on above: Performed By: #### T NIHS0 ####[facility] ([facility])[address] [place] [address] VIR TSHon 04-17-2025 TSH 1.57 uIU/mL Normal 0.49-4.67 [facility] Comment on above: Performed By: #### T SH ####[facility] ([facility])[address] [facility] [address], [place] [address] VIR MR BREAST BILAT W WO CONT W CADon 02-27-2025 MR BREAST BILAT W WO CONT W CAD MR BREAST BILAT W WO CONT W CAD BEENA DIAZ 1950 [id number] EXAM: MR BREAST BILAT W WO CONT W CAD, 02/27/2025 1:48 PM INDICATION: Silicone breast implants., 4.89 % TC lifetime risk score Patient had palpable lump previously with negative mammogram. Clinical service centered about implant rupture COMPARISON: Mammogram 11/04/2024. No previous breast MRI examinations. TECHNIQUE: Breast images obtained utilizing a 1.5T MRI with dedicated breast coil. Three-dimensional, high resolution fat suppressed T1 weighted images were obtained prior to, immediately following, and after sequential delays relative to intravenous gadolinium contrast administration. Precontrast STIR and non-fat suppressed T1 axial images were also obtained. 3D image and subtraction processing were performed using Mobile Patrol software. Additional silicone selective sequence added for implant evaluation. The images were interpreted using image subtraction, reregistration, multiplanar reconstruction, 2D and 3D acquisition and subtracted MIP, NASIMA, Time Activity curves and color mapping. CONTRAST VOLUME: 4 mL Gadavist FINDINGS: There is mild background enhancement bilaterally, symmetric. The breast composition is heterogeneous fibroglandular tissue. There are bilateral silicone implants which appear unremarkable. There are no suspicious enhancing lesions and no significant axillary or internal mammary lymphadenopathy. The skin, nipples and chest wall are unremarkable. IMPRESSION: Normal examination. No evidence for breast cancer or other significant finding. Bilateral silicone implants appear unremarkable. BI-RADS: BI-RADS 1 - Negative Recommendation: Return to annual screening mammography. Finalized by Binta Sanchez MD on 02/27/2025 2:51 PM 1 RETURN TO [facility] FL AMB CERVICAL EPIDURALon 0 02-13-2025 FL AMB CERVICAL EPIDURAL FL AMB CERVICAL EPIDURAL FL AMB CERVICAL EPIDURAL CLINICAL HISTORY: Cervical radiculopathy TECHNIQUE: Fluoro Time: 23.2 seconds The reference air Kerma was 1.0 mGy. Number of images: 3 IMPRESSION: A radiologist was not present. Intraprocedural fluoroscopy for the purposes of treatment planning and localization. Please refer to final procedural note/dictation for full details Finalized by Efrain Cordero MD on 02/13/2025 2:05 PM Normal [facility] DEXA SCAN CENTRAL SKELETALon 02-10-2025 DEXA SCAN CENTRAL SKELETAL DEXA SCAN CENTRAL SKELETAL CLINICAL INFORMATION: Osteopenia, unspecified location; Menopause. , Post menopausal, TECHNIQUE: Dual X-ray Absorptiometry (DXA) was performed. COMPARISON: No relevant prior studies available. FINDINGS: LUMBAR SPINE (L1-L4): BMD is 1.324 gm/cm2. T-score is 1.0. LEFT FEMORAL NECK: BMD is 0.838 gm/cm2. T-score is -1.4. LEFT TOTAL FEMUR: BMD is 0.906 gm/cm2. T-score is -0.8. RIGHT FEMORAL NECK: BMD is 0.802 gm/cm2. T-score is -1.7. RIGHT TOTAL FEMUR: BMD is 0.880 gm/cm2. T-score is -1.0. The estimated 10-year probability for a major osteoporotic fracture (utilizing FRAX) is 12.0% and for a hip fracture is 2.9%. IMPRESSION: The exam is considered to be osteopenic by the National Osteoporosis Foundation guidelines. Recommend consideration for initiation of therapy. WHO CLASSIFICATION: Normal: T-score -1.0 or above Osteopenia: T-score -1.1 to < 2.5 Osteoporosis: T-score -2.5 or lower Secondary causes of bone loss should be evaluated if clinically indicated since the etiology of low BMD cannot be determined by BMD measurement alone. The current National Osteoporosis Foundation guide recommends treating patients with FRAX ten year risk scores of greater than or equal to 3% for hip fracture or greater than or equal to 20% for major osteoporotic fracture, to reduce their fracture risk. Finalized by Ashok Valencia MD on 02/10/2025 5:45 AM Normal [facility] CBC AND AUTO DIFFon 02-03-20 25 ABSOLUTE BASOPHIL 0.0 X10E9/L Normal 0.0-0.2 [facility] Comment on above: Performed By: #### 2 4331-1, CMP, CBCA ####[facility] ([id number])[address], [place] [address] ABSOLUTE NEUTROPHIL 3.4 X10E9/L Normal 1.5-6.6 [facility] Comment on above: Performed By: #### 2 4331-1, CMP, CBCA ####[facility] ([id number])[address] [address] Basophils/100 WBC (Bld) 0.3 % Normal [facility] Comment on above: Performed By: #### 2 4331-1, CMP, CBCA ####[facility] ([id number])[address] [address] Eosinophils (Bld) [#/Vol] 0.3 10*3/uL Normal 0.0-0.4 [facility] Comment on above: Performed By: #### 2 4331-1, CMP, CBCA ####[facility] ([id number])[address] [address] [place] [address] Eosinophils/100 WBC (Bld) 4.7 % Normal [facility] Comment on above: Performed By: #### 2 4331-1, CMP, CBCA ####[facility] ([id number])[address] [address] [place] [address] Erythrocyte distribution width (RBC) [Ratio] 15.7 % High 11.5-15.0 [facility] Comment on above: Performed By: #### 2 4331-1, CMP, CBCA ####[facility] ([id number])[address] [address] Hematocrit (Bld) [Volume fraction] 38.8 % Normal 35-47 [facility] Comment on above: Performed By: #### 2 4331-1, CMP, CBCA ####[facility] ([id number])[address] [address] Hemoglobin (Bld) [Mass/Vol] 12.9 g/dL Normal 11.7-15.5 [facility] Comment on above: Performed By: #### 2 4331-1, CMP, CBCA ####[facility] ([id number])[address] [address] Lymphocytes (Bld) [#/Vol] 1.4 10*3/uL Normal 1.0-3.5 [facility] Comment on above: Performed By: #### 2 4331-1, CMP, CBCA ####[facility] ([id number])[address] [address] Lymphocytes/100 WBC (Bld) 24.9 % Normal [facility] Comment on above: Performed By: #### 2 4331-1, CMP, CBCA ####[facility] ([id number])[address] [address] MCH (RBC) [Entitic mass] 30.8 pg Normal 27-34 [facility] Comment on above: Performed By: #### 2 4331-1, CMP, CBCA ####[facility] ([id number])[address] [address] MCHC (RBC) [Mass/Vol] 33.3 g/dL Normal 32-36 [facility] Comment on above: Performed By: #### 2 4331-1, CMP, CBCA ####[facility] ([id number])[address] [facility] [address] MCV (RBC) [Entitic vol] 92 fL Normal 80-100 [facility] Comment on above: Performed By: #### 2 4331-1, CMP, CBCA ####[facility] ([id number])[address] [address] [address] Monocytes (Bld) [#/Vol] 0.5 10*3/uL Normal 0-0.9 [facility] Comment on above: Performed By: #### 2 4331-1, CMP, CBCA ####[facility] ([id number])[address] [address], [place] [address] Monocytes/100 WBC (Bld) 8.9 % Normal [facility] Comment on above: Performed By: #### 2 4331-1, CMP, CBCA ####[facility] ([id number])[address] [facility] [address] Neutrophils/100 WBC (Bld) 61.2 % Normal [facility] Comment on above: Performed By: #### 2 4331-1, CMP, CBCA ####[facility] ([id number])[address] [facility] [address] Platelet mean volume (Bld) [Entitic vol] 9.5 fL Normal 7-12 [facility] Comment on above: Performed By: #### 2 4331-1, CMP, CBCA ####[facility] ([id number])[address] [facility] [address] Platelets (Bld) [#/Vol] 220 10*3/uL Normal 150-450 [facility] Comment on above: Performed By: #### 2 4331-1, CMP, CBCA ####[facility] ([id number])[address] [facility] [address] RBC COUNT 4.20 X10E12/L Normal 3.80-5.20 [facility] Comment on above: Performed By: #### 2 4331-1, CMP, CBCA ####[facility] ([id number])[address] [address], [place] [address] WBC (Bld) [#/Vol] 5.5 10*3/uL Normal 4.0-11.0 [facility] Comment on above: Performed By: #### 2 4331-1, CMP, CBCA ####[facility] ([id number])[address], [place] [address] COMPREHENSIVE METABOLIC PANE Martin 02-02-2025 Albumin [Mass/Vol] 4.5 g/dL Normal 3.2-5.3 [facility] Comment on above: Performed By: #### 2 4331-1, CMP, CBCA ####[facility] ([id number])[address] [facility] [address] ALP [Catalytic activity/Vol] 66 U/L Normal 39-130 [facility] Comment on above: Performed By: #### 2 4331-1, CMP, CBCA ####[facility] ([id number])[address] [facility] [address] ALT [Catalytic activity/Vol] 8 U/L Normal 0-31 [facility] Comment on above: Performed By: #### 2 4331-1, CMP, CBCA ####[facility] ([id number])[address], [place] [address] Anion gap [Moles/Vol] 8 mmol/L Normal 5-15 [facility] Comment on above: Performed By: #### 2 4331-1, CMP, CBCA ####[facility] ([id number])[address], [place] [address] AST [Catalytic activity/Vol] 27 U/L Normal 0-41 [facility] Comment on above: Performed By: #### 2 4331-1, CMP, CBCA ####[facility] ([id number])[address], [place] [address] Bilirubin [Mass/Vol] 1.7 mg/dL High 0.3-1.2 [facility] Comment on above: Performed By: #### 2 4331-1, CMP, CBCA ####[facility] ([id number])[address], [place] [address] Calcium [Mass/Vol] 9.7 mg/dL Normal 8.5-10.5 [facility] Comment on above: Performed By: #### 2 4331-1, CMP, CBCA ####[facility] ([id number])[address], [place] [address] Chloride [Moles/Vol] 99 mmol/L Normal 98-109 [facility] Comment on above: Performed By: #### 2 4331-1, CMP, CBCA ####[facility] ([id number])[address], [place] [address] CO2 [Moles/Vol] 32 mmol/L Normal 22-32 [facility] Comment on above: Performed By: #### 2 4331-1, CMP, CBCA ####[facility] ([id number])[address] [address] [place] [address] Creatinine [Mass/Vol] 0.74 mg/dL Normal 0.40-1.00 [facility] Comment on above: Result Comment: METH OD TRACEABLE TO IDMS STANDARD Performed By: #### 2 4331-1, RENEE, CBCA ####[facility] ([id number])[address] [address] [address] GFR/1.73 sq M.predicted among non-blacks MDRD (S/P/Bld) [Vol rate/Area] 85 mL/min/{1.73_m2} Normal >59 [facility] Comment on above: Result Comment: Reported eGFR is based on the CKD-EPI 2020 equation that does not use a race coefficient. Performed By: #### 2 4331-1, RENEE, CBCA ####[facility] ([id number])[address] [address], [place] [address] Glucose [Mass/Vol] 88 mg/dL Normal 65-99 [facility] Comment on above: Performed By: #### 2 4331-1, RENEE, CBCA ####[facility] ([id number])[address] [address], [place] [address] Potassium [Moles/Vol] 4.0 mmol/L Normal 3.5-5.0 [facility] Comment on above: Performed By: #### 2 4331-1, RENEE, CBCA ####[facility] ([id number])[address] [address], [place] [address] Protein [Mass/Vol] 7.2 g/dL Normal 6.0-8.0 [facility] Comment on above: Performed By: #### 2 4331-1, CMP, CBCA ####[facility] ([id number])[address] [address], [place] [address] Sodium [Moles/Vol] 139 mmol/L Normal 134-146 [facility] Comment on above: Performed By: #### 2 4331-1, CMP, CBCA ####[facility] ([id number])[address] [place] [address] Urea nitrogen [Mass/Vol] 16 mg/dL Normal 5-27 [facility] Comment on above: Performed By: #### 2 4331-1, CMP, CBCA ####[facility] ([id number])[address] [place] [address] Lipid 1996 panelon 5 Cholesterol [Mass/Vol] 154 mg/dL Normal 150-200 [facility] Comment on above: Performed By: #### 2 4331-1, CMP, CBCA ####[facility] ([id number])[address] [address] Cholesterol in HDL [Mass/Vol] 79 mg/dL Normal >39 [facility] Comment on above: Result Comment: HDL <40 mg/dL - High Risk HDL > or = 40mg/dL- Desirable HDL >60 mg/dL - Negative Risk Performed By: #### 2 4331-1, CMP, CBCA ####[facility] ([id number])[address] [address] Cholesterol in LDL [Mass/Vol] 64 mg/dL Normal <130 [facility] Comment on above: Result Comment: LDL <100 mg/dL - Desirable LDL >160 mg/dL - High Risk Performed By: #### 2 4331-1, CMP, CBCA ####[facility] ([id number])[address], [place] [address] Cholesterol in VLDL [Mass/Vol] 11 mg/dL Normal 0-30 [facility] Comment on above: Performed By: #### 2 4331-1, CMP, CBCA ####[facility] ([id number])[address], [place] [address] CHOLESTEROL:HDL 1.9 Normal 1.0-5.0 [facility] Comment on above: Performed By: #### 2 4331-1, CMP, CBCA ####[facility] ([id number])[address], [place] [address] Triglyceride [Mass/Vol] 54 mg/dL Normal 27-150 [facility] Comment on above: Performed By: #### 2 4331-1, CMP, CBCA ####[facility] ([id number])[address], [place] [address] URINALYSISon 02-02-2025 Bilirubin Ql (U) Negative Normal NEG [facility] Comment on above: Performed By: #### U A ####[facility] ([id number])[address], [place] [address] BLOOD/HGB Negative Normal NEG [facility] Comment on above: Performed By: #### U A ####[facility] ([id number])[address], [place] [address] Color (U) YELLOW Normal YELLOW [facility] Comment on above: Performed By: #### U A ####[facility] ([id number])[address], [place] [address] Glucose Ql (U) Negative Normal NEG [facility] Comment on above: Performed By: #### U A ####[facility] ([id number])[address] [facility] [address] Ketones Ql (U) Negative Normal NEG [facility] Comment on above: Performed By: #### U A ####[facility] ([id number])[address] [facility] [address] Leukocyte esterase Test strip Ql (U) Negative Normal NEG [facility] Comment on above: Performed By: #### U A ####[facility] ([id number])[address] [facility] [address] MUCOUS PRESENT Abnormal NONE [facility] Comment on above: Performed By: #### U A ####[facility] ([id number])[address] [facility] [address] Nitrite Ql (U) Negative Normal NEG [facility] Comment on above: Performed By: #### U A ####[facility] ([id number])[address], [place] [address] pH (U) 7.0 [pH] Normal 5.0-8.5 [facility] Comment on above: Performed By: #### U A ####[facility] ([id number])[address], [place] [address] Protein Ql (U) Trace Abnormal NEG [facility] Comment on above: Performed By: #### U A ####[facility] ([id number])[address], [place] [address] R.B.CELLS <1 Normal 0-5 [facility] Comment on above: Performed By: #### U A ####[facility] ([id number])[address] [facility] [address] Specific gravity (U) [Rel density] 1.022 Normal 1.003-1.035 [facility] Comment on above: Performed By: #### U A ####[facility] ([id number])[address], [place] [address] SQUAMOUS EPITHELIUM 1 /hpf Normal 0-5 [facility] Comment on above: Performed By: #### U A ####[facility] ([id number])[address], [address], [place] [address] TURBIDITY CLEAR Normal CLEAR [facility] Comment on above: Performed By: #### U A ####[facility] ([id number])[address], [address] [place] [address] Urobilinogen (U) [Mass/Vol] mg/dL Normal <1.1 [facility] Comment on above: Performed By: #### U A ####[facility] ([id number])[address], [address] [place] [address] 41703 W.B.CELLS 1 /hpf Normal 0-5 [facility] Comment on above: Performed By: #### U A ####[facility] ([id number])[address], [address] [place] [address] FL AMB CERVICAL EPIDURALon 0 01-30-2025 FL AMB CERVICAL EPIDURAL FL AMB CERVICAL EPIDURAL History: Chronic pain syndrome; Neck pain, chronic; Cervical radiculopathy. Exam/Technique: This dictation is to confirm the use of intraoperative fluoroscopy by the primary service. Total fluoro time: 13.9 seconds , cumulative air Kerma radiation dose 1.72 mGy and 5 images. 2 mL Omnipaque contrast was used. No radiologist was present during the procedure. IMPRESSION: Please refer to the operative note for clinical correlation. Finalized by Tyree Kendall MD on 01/30/2025 4:41 PM Normal [facility] XR SPINE CERVICAL FLEXION/EX TENSION ONLYon 01-23-2025 XR SPINE CERVICAL FLEXION/EXTENSION ONLY XR SPINE CERVICAL FLEXION/EXTENSION ONLY XR SPINE CERVICAL FLEXION/EXTENSION ONLY Neck pain Findings: There is no fracture or destructive lesion. Impression: * No acute findings. * Diffuse disc disease and facet arthritis demonstrated. Findings are similar to December 06, 2024 * Stable flexion-extension views with a mild anterior subluxation of C7 on T1 stable between flexion and extension. * Consider MRI if you suspect occult process. * Finalized by Truman Hannon MD on 01/23/2025 8:12 PM Normal [facility] MR CERVICAL SPINE WO CONTon 12-27-2024 MR CERVICAL SPINE WO CONT MR CERVICAL SPINE WO CONT History: Neck pain for 2 months. No known injury Exam/Technique: Multiplanar, multisequence MR imaging is obtained of the cervical spine without intravenous contrast. Comparison: Cervical spine MRI dated 02/24/2007 Findings: There is no evidence of cerebellar ectopia, syrinx or myelomalacia. The fluid sensitive sequences do not suggest a focus of bone marrow edema or acute pathology of the supporting ligamentous structures. Alignment: Degenerative 3 mm grade 1 anterolisthesis of C4 on C5. Disc desiccation at all levels in the cervical spine C2-C3: Mild broad-based disc osteophyte complex. No spinal canal stenosis. Spurring of the right uncovertebral joint and facet degenerative changes lead to mild right neural foraminal narrowing. Left neural foramina is patent. C3-C4: Mild broad-based disc osteophyte complex. Moderate spinal canal stenosis. Spurring of the uncovertebral joints and facet degenerative changes lead to severe right and moderate left neural foraminal narrowing. C4-C5: Broad-based disc osteophyte complex leads to severe spinal canal stenosis. Severe bilateral neural foraminal narrowing. Endplate spurring. Moderate disc space narrowing. C5-C6: Broad-based disc osteophyte complex leads to moderate to severe spinal canal stenosis. Severe right and mild left neural foraminal narrowing. Severe disc space narrowing. Endplate spurring. C6-C7: Mild broad-based disc osteophyte complex leads to mild spinal canal stenosis. Severe right and moderate left neural foraminal narrowing. Endplate spurring. Moderate disc space narrowing. C7-T1: Minimal broad-based disc protrusion. No spinal canal stenosis. No significant neural foraminal narrowing. IMPRESSION: Degenerative changes in the cervical spine lead to: * Moderate spinal canal stenosis at C3-C4. Severe right and moderate left neural foraminal narrowing at C3-C4. * Severe spinal canal stenosis and severe bilateral neural foraminal narrowing at C4-C5. Degenerative grade I anterolisthesis of C4 on C5. * Moderate to severe spinal canal stenosis and severe right neural foraminal narrowing at C5-C6. * Severe right and moderate left neural foraminal narrowing at C6-C7. * Finalized by Paradise Palacios MD on 12/27/2024 8:02 AM [facility] XR SPINE CERVICAL 3 VWS OR L ESSon 12-07-2024 XR SPINE CERVICAL 3 VWS OR LESS XR SPINE CERVICAL 3 VWS OR LESS XR SPINE CERVICAL 3 VWS OR LESS History: Chronic pain syndrome Findings: There is no fracture or destructive lesion. Impression: * No acute findings. * Diffuse disc disease and facet arthritis progressed from February 24, 2007 * Consider MRI if you would like to assess for stenosis and/or radiculopathy or other occult process. Finalized by Truman Hannon MD on 12/07/2024 10:56 AM [facility] tpion 12-06-2024 CIARRA Hernandez 12/06/2024 2:30 PM Tpi Date/Time: 12/06/2024 2:22 PM Performed by: CIARRA Hernandez Authorized by: CIARRA Hernandez Verbal consent obtained?: Yes Written consent obtained?: Yes Risks and benefits: Risks, benefits and alternatives were discussed Consent given by: Patient Patient states understanding of procedures being performed: Yes Patient's understanding of procedure matches consent: Yes Procedure consent matches procedure scheduled: Yes Relevant documents present and verified: Yes Test results available and properly labeled: Yes Site marked: Yes Imaging studies available: if applicable. Required items: Required blood products, implants, devices and special equipment available Patient identity confirmed: Verbally with patient Time out: Immediately prior to the procedure a time out was called Indications: Pain (somatic dysfunction) Preparation: Patient was prepped and draped in usual sterile fashion Needle size: 25 G Ultrasound guidance: No Approach: Posterior Lidocaine HCL 1% amount (ml): 3 Bupivacaine amount (ml): 2 Kenalog amount (mg/ml): 80 Patient tolerance: Patient tolerated the procedure well with no immediate complications Procedure was completed Vital signs stable during the procedure Complications: none Interventions: none MANUALLY TRANSCRIBED RESULTS [facility] ACUTE HEPATITIS PANELon 11-10 ANTI HCV W/PCR REFLX Non-Reactive Normal NRCT [facility] Comment on above: Result Comment: NEW TEST METHOD NOTE If recent infection suspected, recommend repeat testing (>2 months). Yfbibw-qe-zvzhoh ratio is <1.00. Performed By: #### C BCA, 82266-2, ENAP, 88737-6, LIVR, 1988-03, AHP, FINANCE OFFICER, 81522-1 ####[facility] ([id number])[address], [address] [place] [address] 31684 HEPATITIS A IGM Non-Reactive Normal NRCT [facility] Comment on above: Result Comment: NEW TEST METHOD Performed By: #### C BCA, 55625-2, ENAP, 57648-3, LIVR, 1988-03, AHP, FINANCE OFFICER, 09732-3 ####[facility] ([id number])[address], [address] [place] [address]13 HEPATITIS B CORE IGM Non-Reactive Normal NRCT [facility] Comment on above: Result Comment: NEW TEST METHOD Performed By: #### C BCA, 57863-6, ENAP, 31162-7, LIVR, 1988-03, AHP, FINANCE OFFICER, 66376-8 ####[facility] ([id number])[address], [address] [place] [address] 03038 HEPATITIS B SURF AG Non-Reactive Normal NRCT [facility] Comment on above: Result Comment: NEW TEST METHOD Performed By: #### C BCA, 54584-1, ENAP, 79161-5, LIVR, 1988-03, AHP, FINANCE OFFICER, 75270-6 ####[facility] ([id number])[address], [address] [place] [address] 38846 Antinuclear AB, HE-p Substra te, (PJ by IFA)on 11-29-2024 Antinuclear Ab, HEp-2 Substrate, S Negative Normal <1:80 (Negative) [facility] Comment on above: Result Comment: NOTE ADDITIONAL INFORMATION Method: Immunofluorescence using HEp-2 cellular substrate. Test Performed by: [facility] [address] [place] [address] Marketing Research Analyst: Sam Dukes Ph.D.; CLIA# [id number] Performed By: #### C BCA, 24335-1, ENAP, 99197-6, LIVR, 1988-03, AHP, FINANCE OFFICER, 16114-7 ####[facility] ([id number])[address], [address], [place] [address] C REACTIVE PROTEINon 025 CRP [Mass/Vol] mg/L Normal 0.000-0.744 [facility] Comment on above: Performed By: #### C BCA, 76391-6, ENAP, 94572-2, LIVR, 1988-03, AHP, FINANCE OFFICER, 97677-2 #### [facility] ([id number]) [address], [address] [place] [address] CBC AND AUTO DIFFon 11-29-19 25 ABSOLUTE BASOPHIL 0.0 X10E9/L Normal 0.0-0.2 [facility] Comment on above: Performed By: #### C BCA, 74948-9, ENAP, 34342-0, LIVR, 1988-03, AHP, FINANCE OFFICER, 30212-3 #### [facility] ([id number]) [address], [address] [place] [address] ABSOLUTE NEUTROPHIL 2.8 X10E9/L Normal 1.5-6.6 [facility] Comment on above: Performed By: #### C BCA, 90572-9, ENAP, 63549-3, LIVR, 1988-03, AHP, FINANCE OFFICER, 32309-8 #### [facility] ([id number]) [address], [address] [place] [address] Basophils/100 WBC (Bld) 0.7 % Normal [facility] Comment on above: Performed By: #### C BCA, 09784-3, ENAP, 78920-1, LIVR, 1988-03, AHP, FINANCE OFFICER, 59754-9 #### [facility] ([id number]) [address], [address] [place] [address] Eosinophils (Bld) [#/Vol] 0.3 10*3/uL Normal 0.0-0.4 [facility] Comment on above: Performed By: #### C BCA, 55861-0, ENAP, 35775-1, LIVR, 1988-03, AHP, FINANCE OFFICER, 55819-1 #### [facility] ([id number]) [address], [address] [place] [address] Eosinophils/100 WBC (Bld) 5.6 % Normal [facility] Comment on above: Performed By: #### C BCA, 66506-2, ENAP, 87062-3, LIVR, 1988-03, AHP, FINANCE OFFICER, 30588-2 #### [facility] ([id number]) [address], [address] [place] [address] Erythrocyte distribution width (RBC) [Ratio] 15.1 % High 11.5-15.0 [facility] Comment on above: Performed By: #### C BCA, 30351-7, ENAP, 60992-3, LIVR, 1988-03, AHP, FINANCE OFFICER, 00092-7 #### [facility] ([id number]) [address], [address] [place] [address] Hematocrit (Bld) [Volume fraction] 38.1 % Normal 35-47 [facility] Comment on above: Performed By: #### C BCA, 94618-0, ENAP, 95346-5, LIVR, 1988-03, AHP, FINANCE OFFICER, 33866-7 #### [facility] ([id number]) [address], [address] [place] [address] Hemoglobin (Bld) [Mass/Vol] 12.8 g/dL Normal 11.7-15.5 [facility] Comment on above: Performed By: #### C BCA, 31180-1, ENAP, 31068-5, LIVR, 1988-03, AHP, FINANCE OFFICER, 46315-5 #### [facility] ([id number]) [address], [address] [place] [address] Lymphocytes (Bld) [#/Vol] 1.9 10*3/uL Normal 1.0-3.5 [facility] Comment on above: Performed By: #### C BCA, 69347-7, ENAP, 24470-9, LIVR, 1988-03, AHP, FINANCE OFFICER, 36336-4 #### [facility] ([id number]) [address], [address] [place] [address] Lymphocytes/100 WBC (Bld) 32.8 % Normal [facility] Comment on above: Performed By: #### C BCA, 81526-6, ENAP, 93694-3, LIVR, 1988-03, AHP, FINANCE OFFICER, 03067-0 #### [facility] ([id number]) [address], [address] [place] [address] MCH (RBC) [Entitic mass] 29.9 pg Normal 27-34 [facility] Comment on above: Performed By: #### C BCA, 63596-8, ENAP, 94041-0, LIVR, 1988-03, AHP, FINANCE OFFICER, 40539-2 #### [facility] ([id number]) [address], [address] [place] [address] MCHC (RBC) [Mass/Vol] 33.6 g/dL Normal 32-36 [facility] Comment on above: Performed By: #### C BCA, 25709-4, ENAP, 53451-6, LIVR, 1988-03, AHP, FINANCE OFFICER, 93264-1 #### [facility] ([id number]) [address], [address] [place] [address] MCV (RBC) [Entitic vol] 89 fL Normal 80-100 [facility] Comment on above: Performed By: #### C BCA, 57098-9, ENAP, 73218-1, LIVR, 1988-03, AHP, FINANCE OFFICER, 70000-0 #### [facility] ([id number]) [address], [facility] [address] [place] [address] Monocytes (Bld) [#/Vol] 0.6 10*3/uL Normal 0-0.9 [facility] Comment on above: Performed By: #### C BCA, 77914-9, ENAP, 30292-8, LIVR, 1988-03, AHP, FINANCE OFFICER, 23074-6 #### [facility] ([id number]) [address], [address] [place] [address] Monocytes/100 WBC (Bld) 10.7 % Normal [facility] Comment on above: Performed By: #### C BCA, 93308-6, ENAP, 51943-7, LIVR, 1988-03, AHP, FINANCE OFFICER, 46743-7 #### [facility] ([id number]) [address], [address] [place] [address] Neutrophils/100 WBC (Bld) 50.2 % Normal [facility] Comment on above: Performed By: #### C BCA, 90401-4, ENAP, 63793-4, LIVR, 1988-03, AHP, FINANCE OFFICER, 84641-1 #### [facility] ([id number]) [address], [address] [place] [address] Platelet mean volume (Bld) [Entitic vol] 9.4 fL Normal 7-12 [facility] Comment on above: Performed By: #### C BCA, 01849-0, ENAP, 34046-8, LIVR, 1988-03, AHP, FINANCE OFFICER, 86696-1 #### [facility] ([id number]) [address], [address] [place] [address] Platelets (Bld) [#/Vol] 213 10*3/uL Normal 150-450 [facility] Comment on above: Performed By: #### C BCA, 76724-3, ENAP, 73899-1, LIVR, 1988-03, AHP, FINANCE OFFICER, 44287-9 #### [facility] ([id number]) [address], [facility] [address] [place] [address] RBC COUNT 4.28 X10E12/L Normal 3.80-5.20 [facility] Comment on above: Performed By: #### C BCA, 12111-4, ENAP, 93055-9, LIVR, 1988-03, AHP, FINANCE OFFICER, 61401-8 #### [facility] ([id number]) [address] [address] WBC (Bld) [#/Vol] 5.7 10*3/uL Normal 4.0-11.0 [facility] Comment on above: Performed By: #### C BCA, 96287-9, ENAP, 22753-1, LIVR, 1988-03, AHP, FINANCE OFFICER, 79805-0 #### [facility] ([id number]) [address] [address] CREATININEon 11-29-2024 Creatinine [Mass/Vol] 0.82 mg/dL Normal 0.40-1.00 [facility] Comment on above: Result Comment: METH OD TRACEABLE TO IDMS STANDARD Performed By: #### C BCA, 43604-4, ENAP, 76576-8, LIVR, 1988-03, AHP, FINANCE OFFICER, 09645-3 #### [facility] ([id number]) [address], [address] [place] [address] GFR/1.73 sq M.predicted among non-blacks MDRD (S/P/Bld) [Vol rate/Area] 75 mL/min/{1.73_m2} Normal >59 [facility] Comment on above: Result Comment: Reported eGFR is based on the CKD-EPI 2020 equation that does not use a race coefficient. Performed By: #### C BCA, 69262-4, ENAP, 90701-5, LIVR, 1988-03, AHP, FINANCE OFFICER, 62232-9 #### [facility] ([id number]) [address] [address] DNA double strand IgG IF Cri thidia luciliae (S) [Titer]on 11-29-2024 Crithidia Interpretation See Note Normal [facility] Comment on above: Result Comment: NOTE Testing for dsDNA antibody by Crithidia IFA was negative. Test Performed by: [facility] [address] [place] [address] Marketing Research Analyst: Sam Dukes Ph.D.; CLIA# [id number] Performed By: #### C BCA, 95647-6, ENAP, 19192-1, LIVR, 1988-03, AHP, FINANCE OFFICER, 79134-7 ####[facility] ([id number])[address] [address] dsDNA Ab by Crithidia IFA, IgG, S Negative Normal Negative [facility] Comment on above: Performed By: #### C BCA, 25086-0, ENAP, 80210-1, LIVR, 1988-03, AHP, FINANCE OFFICER, 97477-5 ####[facility] ([id number])[address] [address] GAETANO PANELon 11-29-2024 ANTI-ZAPATA AB IGG <0.2 Normal <1.0 [facility] Comment on above: Performed By: #### C BCA, 39120-5, ENAP, 20589-6, LIVR, 1987-03, AHP, FINANCE OFFICER, 80998-6 #### [facility] ([id number]) [address], [address] [place] [address] JO1 ANTIBODY <0.2 Normal <1.0 [facility] Comment on above: Performed By: #### C BCA, 90089-0, ENAP, 59979-3, LIVR, 1988-03, AHP, FINANCE OFFICER, 00275-4 #### [facility] ([id number]) [address], [address] [place] [address] POWER HAIR CLIPPER ANTIBODY IGG 0.2 AI Normal <1.0 [facility] Comment on above: Performed By: #### C BCA, 29627-2, ENAP, 90876-6, LIVR, 1988-03, AHP, FINANCE OFFICER, 91193-5 #### [facility] ([id number]) [address], [address] [place] [address] SCL 70 ANTIBODY <0.2 Normal <1.0 [facility] Comment on above: Performed By: #### C BCA, 03555-7, ENAP, 37907-0, LIVR, 1988-03, AHP, FINANCE OFFICER, 87152-1 #### [facility] ([id number]) [address], [address] [place] [address] SSA ANTIBODY <0.2 Normal <1.0 [facility] Comment on above: Performed By: #### C BCA, 15669-8, ENAP, 44664-4, LIVR, 1988-03, AHP, FINANCE OFFICER, 73475-1 #### [facility] ([id number]) [address], [address] [place] [address] SSB ANTIBODY <0.2 Normal <1.0 [facility] Comment on above: Performed By: #### C BCA, 71573-1, ENAP, 27718-7, LIVR, 1988-03, AHP, FINANCE OFFICER, 88671-2 #### [facility] ([id number]) [address] [place] [address] ESR Photometric method (Bld) [Velocity]on 11-29-2024 ESR, ERYTHROCYTE SEDIMENTATION RATE 48 mm/h High 0-30 [facility] Comment on above: Performed By: #### C BCA, 64087-8, ENAP, 76227-4, LIVR, 1988-03, AHP, FINANCE OFFICER, 12391-9 #### [facility] ([id number]) [address], [address] [place] [address] LIVER PANELon 11-29-2024 Albumin [Mass/Vol] 4.5 g/dL Normal 3.2-5.3 [facility] Comment on above: Performed By: #### C BCA, 51760-3, ENAP, 83196-4, LIVR, 1988-03, AHP, FINANCE OFFICER, 08774-3 #### [facility] ([id number]) [address], [address] [place] [address] ALP [Catalytic activity/Vol] 66 U/L Normal 39-130 [facility] Comment on above: Performed By: #### C BCA, 57287-6, ENAP, 36449-8, LIVR, 1988-03, AHP, FINANCE OFFICER, 91501-7 #### [facility] ([id number]) [address], [address] [place] [address] ALT [Catalytic activity/Vol] 14 U/L Normal 0-31 [facility] Comment on above: Performed By: #### C BCA, 56565-4, ENAP, 35139-1, LIVR, 1988-03, AHP, FINANCE OFFICER, 49006-4 #### [facility] ([id number]) [address], [address] [place] [address] AST [Catalytic activity/Vol] 26 U/L Normal 0-41 [facility] Comment on above: Performed By: #### C BCA, 36852-8, ENAP, 09526-0, LIVR, 1988-03, AHP, FINANCE OFFICER, 08460-2 #### [facility] ([id number]) [address], [address] [place] [address] Bilirubin [Mass/Vol] 0.9 mg/dL Normal 0.3-1.2 [facility] Comment on above: Performed By: #### C BCA, 38846-1, ENAP, 93174-6, LIVR, 1988-03, AHP, FINANCE OFFICER, 65583-1 #### [facility] ([id number]) [address], [address] [place] [address] Bilirubin.direct [Mass/Vol] 0.2 mg/dL Normal 0.0-0.4 [facility] Comment on above: Performed By: #### C BCA, 38845-2, ENAP, 28240-9, LIVR, 1988-03, AHP, FINANCE OFFICER, 82630-5 #### [facility] ([id number]) [address], [address] [place] [address] Protein [Mass/Vol] 7.4 g/dL Normal 6.0-8.0 [facility] Comment on above: Performed By: #### C BCA, 61458-8, ENAP, 37716-3, LIVR, 1988-03, AHP, FINANCE OFFICER, 54333-0 #### [facility] ([id number]) [address], [address] [place] [address] M. tuberculosis stim IFN-g p alissa (Bld)on 11-29-2024 Mitogen minus Nil Result 0.00 IU/mL Normal [facility] Nil Result 0.01 IU/mL Normal [facility] Comment on above: Result Comment: NOTE Test Performed by: [facility] [address] [place] [address] Marketing Research Analyst: Sam Dukes Ph.D.; CLIA# [id number] QuantiFERON-Tb Gold Plus Result Indeterminate Abnormal Negative [facility] Comment on above: Result Comment: NOTE Indeterminate due to a low interferon-gamma level in the mitogen (positive control) tube. This may occur due to a low lymphocyte count, reduced lymphocyte activity or inability of the patient's lymphocytes to generate interferon-gamma. The reference range for the 'Mitogen minus Nil Result' is >=0.5 IU/mL. TB1 Ag minus Nil Result 0.01 IU/mL Normal [facility] TB2 Ag minus Nil Result 0.01 IU/mL Normal [facility] Rheumatoid factor Nephelomet ry Qn (S)on 11-29-2024 RHEUMATOID FACTOR <10 Normal <20 [facility] Comment on above: Performed By: #### C BCA, 68525-1, ENAP, 04854-5, LIVR, 1988-5, AHP, FINANCE OFFICER, 58251-8 #### [facility] ([id number]) [address] [facility], [address] [place] [address] MAMM DIAGNOSTIC BILATERAL W CADon 11-04-2024 MAMM DIAGNOSTIC BILATERAL W CAD MAMM DIAGNOSTIC BILATERAL W CAD BEENA DIAZ 1950 [id number], [id number] EXAM: MAMM DIAGNOSTIC BILATERAL W CAD, US [...] 9:52 AM 2 d MAMM 1 YR Normal [facility] US BREAST RT LIMITEDon 11-04 US BREAST RT LIMITED US BREAST RT LIMITE Manjula BEENA RUEDAMAN 1950 [id number], [id number] EXAM: MAMM DIAGNOSTIC BILATERAL W CAD, US [...] 9:52 AM 2 d MAMM 1 YR Normal [facility] XR CHEST 2 VWSon 08-10-2024 XR CHEST 2 VWS XR CHEST 2 VWS CLINICAL INFORMATION: . Chronic obstructive pulmonary disease, unspecified COPD type ([facility]). TECHNIQUE/PROCEDURE: Two view chest. COMPARISON: 01/25/2022 FINDINGS: No tracheal deviation. Cardiac and mediastinal contours normal. No pneumothorax or free air. No pleural effusion or focal consolidation. Emphysema. IMPRESSION: * Emphysema with no superimposed acute cardiopulmonary disease. Finalized by Francesco Lyons MD on 08/10/2024 12:36 PM Normal [facility] SED RATE - CRPon 07-19-2024 CRP EXTENDED RANGE <0.34 Normal (0.00 - 3.20) [facility] Comment on above: Order Comment: FACIL ITY: [facility] - [id number] Result Comment: CRP RESULT IS <0.34 MG/L CRP MIN DETECTION = 0.34 MG/L Performed By: #### C BC/2A, MSEP, ANAFX, ACAX3, ESRCRP, TSHFX, VD25, CCP, RHF, URCA #### [facility] [address] [facility], [address] SED RATE WEST. 33 MM/HR High (0 - 25) [facility] Comment on above: Order Comment: FACIL ITY: [facility] - [id number] Performed By: #### C BC/2A, MSEP, ANAFX, ACAX3, ESRCRP, TSHFX, VD25, CCP, RHF, URCA #### [facility] [address] [facility], [address] XR HAND LEFT (MIN 3 VIEWS)on 06-30-2024 XR HAND LEFT (MIN 3 VIEWS) EXAMINATION: THREE XRAY VIEWS OF THE LEFT HAND 06/28/2024 4:14 pm COMPARISON: None. HISTORY: ORDERING SYSTEM PROVIDED HISTORY: Bilateral hand pain TECHNOLOGIST PROVIDED HISTORY: Left hand pain Reason for Exam: lt hand pain, no injury FINDINGS: There is no evidence of acute fracture. There is normal alignment. No acute joint abnormality. No focal osseous lesion. No focal soft tissue abnormality. Degenerative changes evident in the interphalangeal joints. IMPRESSION: No acute osseous abnormality. Degenerative changes in the interphalangeal joints Interpreted by: Ashok Pelayo MD Signed by: Ashok Pelayo MD 06/30/24 Final result Normal [facility] XR HAND RIGHT (MIN 3 VIEWS)o n 06-30-2024 XR HAND RIGHT (MIN 3 VIEWS) EXAMINATION: THREE XRAY VIEWS OF THE RIGHT HAND 06/28/2024 4:15 pm COMPARISON: None. HISTORY: ORDERING SYSTEM PROVIDED HISTORY: Bilateral hand pain TECHNOLOGIST PROVIDED HISTORY: Right hand pain Reason for Exam: rt hand pain, no injury FINDINGS: There is no evidence of acute fracture. There is normal alignment. No acute joint abnormality. No focal osseous lesion. No focal soft tissue abnormality. Degenerative changes in the interphalangeal joints. IMPRESSION: No acute osseous abnormality. Degenerative changes in the interphalangeal joints Interpreted by: Ashok Pelayo MD Signed by: Ashok Pelayo MD 06/30/24 Final result Normal [facility] XR WRIST LEFT (MIN 3 VIEWS)o n 06-30-2024 XR WRIST LEFT (MIN 3 VIEWS) EXAMINATION: 3 XRAY VIEWS OF THE LEFT WRIST 06/28/2024 4:16 pm COMPARISON: None. HISTORY: ORDERING SYSTEM PROVIDED HISTORY: Bilateral hand pain TECHNOLOGIST PROVIDED HISTORY: Left wrist pain Reason for Exam: lt wrist pain, no injury FINDINGS: There is no evidence of acute fracture. There is normal alignment. No acute joint abnormality. No focal osseous lesion. No focal soft tissue abnormality. Mild degenerative changes in the 1st CMC joint. IMPRESSION: No acute osseous abnormality. Mild degenerative changes in the 1st CMC joint Interpreted by: Ashok Pelayo MD Signed by: Ashok Pelayo MD 06/30/24 Final result Normal [facility] XR WRIST RIGHT (MIN 3 VIEWS) on 06-30-2024 XR WRIST RIGHT (MIN 3 VIEWS) EXAMINATION: 3 XRAY VIEWS OF THE RIGHT WRIST 06/28/2024 4:17 pm COMPARISON: None. HISTORY: ORDERING SYSTEM PROVIDED HISTORY: Bilateral hand pain TECHNOLOGIST PROVIDED HISTORY: Right wrist pain Reason for Exam: rt wrist pain, no injury FINDINGS: There is no evidence of acute fracture. There is normal alignment. No acute joint abnormality. No focal osseous lesion. No focal soft tissue abnormality. Degenerative changes in the radiocarpal articulation. Mild degenerative changes in the 1st CMC joint. IMPRESSION: No acute osseous abnormality. Degenerative changes in the radiocarpal articulation Mild degenerative changes 1st CMC joint Interpreted by: Ashok Pelayo MD Signed by: Ashok Pelayo MD 06/30/24 Final result Normal [facility] XR Wrist - left 3 Viewson No acute osseous abnormality. Mild degenerative changes in the 1st CMC joint [facility] EXAMINATION: 3 XRAY VIEWS OF THE LEFT WRIST 06/28/2024 4:16 pm COMPARISON: None. HISTORY: ORDERING SYSTEM PROVIDED HISTORY: Bilateral hand pain TECHNOLOGIST PROVIDED HISTORY: Left wrist pain Reason for Exam: lt wrist pain, no injury FINDINGS: There is no evidence of acute fracture. There is normal alignment. No acute joint abnormality. No focal osseous lesion. No focal soft tissue abnormality. Mild degenerative changes in the 1st CMC joint. [facility] Ashok Pelayo MD - 06/30/2024 EXAMINATION: 3 XRAY VIEWS OF THE LEFT WRIST 06/28/2024 4:16 pm COMPARISON: None. HISTORY: ORDERING SYSTEM PROVIDED HISTORY: Bilateral hand pain TECHNOLOGIST PROVIDED HISTORY: Left wrist pain Reason for Exam: lt wrist pain, no injury FINDINGS: There is no evidence of acute fracture. There is normal alignment. No acute joint abnormality. No focal osseous lesion. No focal soft tissue abnormality. Mild degenerative changes in the 1st CMC joint. IMPRESSION: No acute osseous abnormality. Mild degenerative changes in the 1st CMC joint [facility] XR Wrist - left 3 ViewsOrder ed By: Ashok Pelayo on 06-30-[address] [facility] Work Phone: XR Wrist - left 3 Viewson Radiology Study observation (narrative) [facility] DEXA BONE DENSITY AXIAL SKEL ETONon 06-22-2024 DEXA BONE DENSITY AXIAL SKELETON EXAMINATION: BONE DENSITOMETRY 06/21/2024 10:34 am TECHNIQUE: A bone density dual x-ray absorptiometry (DXA) scan was performed of the lumbar spine and left hip on a [employer] system. COMPARISON: None. HISTORY: ORDERING SYSTEM PROVIDED HISTORY: Osteopenia after menopause Gender: F Age: 73 y/o FINDINGS: LUMBAR SPINE: L1, L3 BMD: 1.224 g/cm2 T-score: 0.4 Z-score: 2.8 LEFT TOTAL HIP: BMD: 0.911 g/cm2 T-score: -0.8 Z-score: 1.4 LEFT FEMORAL NECK: BMD: 0.834 g/cm2 T-score: -1.5 Z-score: 0.8 FRAX 10-YEAR PROBABILITY OF FRACTURE: 10-year fracture risk is performed using the [employer] FRAX calculator based on patient-reported risk factors. Major osteoporotic fracture: 8.2% Hip fracture: 1.6% Other situations known to alter the reliability of the FRAX score should be considered when making treatment decisions, including chronic glucocorticoid use and past treatments. Further guidance on treatment can be found at the National [employer]'s website bonesource.org. IMPRESSION: Osteopenia [...] have additional risk factors. Template code: [id number] Interpreted by: Franky Fuentes MD Signed by: Franky Fuentes MD 06/22/24 Final result Normal [facility] JOSE DIGITAL SCREEN SELF REFERRAL W OR WO CAD BILATERALon 01-15-2024 [facility] JOSE DIGITAL SCREEN SELF REFERRAL W OR WO CAD BILATERAL EXAMINATION: SCREENING DIGITAL BILATERAL MAMMOGRAM WITH TOMOSYNTHESIS, [...] Stable bilateral implants. Benign-appearing calcifications are stable. IMPRESSION: Stable exam. No mammographic evidence of malignancy BIRADS: BIRADS - CATEGORY 2 Benign Findings. Normal interval follow-up is recommended in 12 months. OVERALL ASSESSMENT - BENIGN A letter of notification will be sent to the patient regarding the results. The [employer] recommends annual mammograms for women 40 years and older. Interpreted by: Armaan Veronica DO Signed by: Armaan Veronica DO 01/15/24 Final result Normal [facility] SED RATE - CRPon 12-09-2023 CRP EXTENDED RANGE <0.34 Normal (0.00 - 3.20) [facility] Comment on above: Order Comment: 1LAV 1SSTFACILITY: [facility] - [id number] Result Comment: CRP RESULT IS <0.34 MG/L CRP MIN DETECTION = 0.34 MG/L Performed By: #### C BC/2A, MSEP, ANAFX, ACAX3, ESRCRP, TSHFX, VD25, CCP, RHF, URCA #### [facility] [address] [facility], [address] SED RATE WEST. 77 MM/HR High (0 - 25) [facility] Comment on above: Order Comment: 1LAV 1SSTFACILITY: [facility] - [id number] Performed By: #### C BC/2A, MSEP, ANAFX, ACAX3, ESRCRP, TSHFX, VD25, CCP, RHF, URCA #### [facility] [address] [facility], [address] PJ WITH REFLEX GAETANO TESTSon 09-28-2023 PJ by HEp-2 CELLS Negative Normal (NEG - NEG) [facility] Comment on above: Performed By: #### C BC/2A, MSEP, ANAFX, ACAX3, ESRCRP, TSHFX, VD25, CCP, RHF, URCA #### [facility] [address] [facility], [address] PJ TITER 1:40 Normal (<1:40 - 1:40) [facility] Comment on above: Performed By: #### C BC/2A, MSEP, ANAFX, ACAX3, ESRCRP, TSHFX, VD25, CCP, RHF, URCA #### [facility] [address] [facility], [address] GAETANO-6 REFLEXED NO Normal () [facility] Comment on above: Performed By: #### C BC/2A, MSEP, ANAFX, ACAX3, ESRCRP, TSHFX, VD25, CCP, RHF, URCA #### [facility] [address] [place] [address] Rd. [facility], [address] CARDIOLIPIN IGG, IGA, IGMon 09-28-2023 CYNDIE, IgA 3.0 U/mL Low (14.0 - 20.0) [facility] Comment on above: Performed By: #### C BC/2A, MSEP, ANAFX, ACAX3, ESRCRP, TSHFX, VD25, CCP, RHF, URCA #### [facility] [address] [facility], [address] CYNDIE, IgG 1.4 U/mL Low (10.0 - 40.0) [facility] Comment on above: Performed By: #### C BC/2A, MSEP, ANAFX, ACAX3, ESRCRP, TSHFX, VD25, CCP, RHF, URCA #### [facility] [address] [facility], [address] CYNDIE, IgM 40.0 U/mL Normal (10.0 - 40.0) [facility] Comment on above: Result Comment: Resu lt between 10.0 - 40.0 U/mL is considered weak positive -recommend retesting the patient after 8 - 12 weeks. Performed By: #### C BC/2A, MSEP, ANAFX, ACAX3, ESRCRP, TSHFX, VD25, CCP, RHF, URCA #### [facility] [address] [facility], [address] CBC, ALB, ALT, AST, ALK AND CREAon 09-28-2023 Albumin [Mass/Vol] 4.5 g/dL Normal (3.5 - 5.0) [facility] Comment on above: Order Comment: FACIL ITY: [facility] - SECOR [id number] Performed By: #### C BC/2A, MSEP, ANAFX, ACAX3, ESRCRP, TSHFX, VD25, CCP, RHF, URCA #### [facility] [address] [facility], [address] ALK PHOS 85 U/L Normal (38 - 126) [facility] Comment on above: Order Comment: FACIL ITY: [facility] [id number] Performed By: #### C BC/2A, MSEP, ANAFX, ACAX3, ESRCRP, TSHFX, VD25, CCP, RHF, URCA #### [facility] [address] [facility], [address] ALT [Catalytic activity/Vol] 10 U/L Normal (1 - 35) [facility] Comment on above: Order Comment: FACIL ITY: [facility] [id number] Performed By: #### C BC/2A, MSEP, ANAFX, ACAX3, ESRCRP, TSHFX, VD25, CCP, RHF, URCA #### [facility] [address] [facility], [address] AST [Catalytic activity/Vol] 28 U/L Normal (15 - 46) [facility] Comment on above: Order Comment: FACIL ITY: [facility] [id number] Performed By: #### C BC/2A, MSEP, ANAFX, ACAX3, ESRCRP, TSHFX, VD25, CCP, RHF, URCA #### [facility] [address] [facility], [address] Creatinine [Mass/Vol] 0.65 mg/dL Normal (0.52 - 1.04) [facility] Comment on above: Order Comment: FACIL ITY: [facility] [id number] Performed By: #### C BC/2A, MSEP, ANAFX, ACAX3, ESRCRP, TSHFX, VD25, CCP, RHF, URCA #### [facility] [address] [facility], [address] GFR- AMER 108.4 ML/M1.7 Normal (60.0 - 140.1) [facility] Comment on above: Order Comment: FACIL ITY: [facility] [id number] Performed By: #### C BC/2A, MSEP, ANAFX, ACAX3, ESRCRP, TSHFX, VD25, CCP, RHF, URCA #### [facility] [address] [facility], [address] GFR-NON AFRIC-AMER 89.6 ML/M1.7 Normal (60.0 - 115.8) [facility] Comment on above: Order Comment: FACIL ITY: [facility] [id number] Performed By: #### C BC/2A, MSEP, ANAFX, ACAX3, ESRCRP, TSHFX, VD25, CCP, RHF, URCA #### [facility] [address] [facility], [address] Hematocrit (Bld) [Volume fraction] 38.6 % Normal (37.0 - 47.0) [facility] Comment on above: Order Comment: FACIL ITY: [facility] [id number] Performed By: #### C BC/2A, MSEP, ANAFX, ACAX3, ESRCRP, TSHFX, VD25, CCP, RHF, URCA #### [facility] [address] [facility], [address] Hemoglobin (Bld) [Mass/Vol] 12.7 g/dL Normal (12.0 - 16.0) [facility] Comment on above: Order Comment: FACIL ITY: [facility] [id number] Performed By: #### C BC/2A, MSEP, ANAFX, ACAX3, ESRCRP, TSHFX, VD25, CCP, RHF, URCA #### [facility] [address] [facility], [id number] MCH (RBC) [Entitic mass] 28.9 pg Normal (27.0 - 33.0) [facility] Comment on above: Order Comment: FACIL ITY: [facility] [id number] Performed By: #### C BC/2A, MSEP, ANAFX, ACAX3, ESRCRP, TSHFX, VD25, CCP, RHF, URCA #### [facility] [address] [facility], [id number] MCHC (RBC) [Mass/Vol] 32.9 g/dL Normal (30.0 - 37.0) [facility] Comment on above: Order Comment: FACIL ITY: [facility] [id number] Performed By: #### C BC/2A, MSEP, ANAFX, ACAX3, ESRCRP, TSHFX, VD25, CCP, RHF, URCA #### [facility] [address] [facility], [id number] MCV (RBC) [Entitic vol] 87.9 fL Normal (81.0 - 99.0) [facility] Comment on above: Order Comment: FACIL ITY: [facility] [id number] Performed By: #### C BC/2A, MSEP, ANAFX, ACAX3, ESRCRP, TSHFX, VD25, CCP, RHF, URCA #### [facility] [address] [facility], [address] PLT 264 x10^3ul Normal (130 - 400) [facility] Comment on above: Order Comment: FACIL ITY: [facility] [id number] Performed By: #### C BC/2A, MSEP, ANAFX, ACAX3, ESRCRP, TSHFX, VD25, CCP, RHF, URCA #### [facility] [address] [facility], [address] RBC 4.39 x10^6ul Normal (4.20 - 5.40) [facility] in Comment on above: Order Comment: FACIL ITY: [facility] [id number] Performed By: #### C BC/2A, MSEP, ANAFX, ACAX3, ESRCRP, TSHFX, VD25, CCP, RHF, URCA #### [facility] [address] [place], [place] [address]or Rd. [facility], [address] WBC 6.46 x10^3ul Normal (3.80 - 10.60) [facility] Comment on above: Order Comment: FACIL ITY: [facility] [id number] Performed By: #### C BC/2A, MSEP, ANAFX, ACAX3, ESRCRP, TSHFX, VD25, CCP, RHF, URCA #### [facility] [facility], [address] RF FACTORon 09-28-2023 RF FACTOR <9 Normal (0 - 12) [facility] Comment on above: Result Comment: RF F ACTOR = LESS THAN 9 IU/ML RF FACTOR MIN. DETECTION = 9 IU/ML. Performed By: #### C BC/2A, MSEP, ANAFX, ACAX3, ESRCRP, TSHFX, VD25, CCP, RHF, URCA #### [facility] [address] [facility], [address] SED RATE - CRPon 09-28-2023 CRP EXTENDED RANGE 0.78 MG/L Normal (0.00 - 3.20) [facility] Comment on above: Performed By: #### C BC/2A, MSEP, ANAFX, ACAX3, ESRCRP, TSHFX, VD25, CCP, RHF, URCA #### [facility] [address] [facility], [address] SED RATE WEST. 78 MM/HR High (0 - 25) [facility] Comment on above: Performed By: #### C BC/2A, MSEP, ANAFX, ACAX3, ESRCRP, TSHFX, VD25, CCP, RHF, URCA #### [facility] [address] [facility], [address] SERUM ELECT(M-PROTIEN)on Albumin [Mass/Vol] 4.8 g/dL Normal (3.5 - 5.0) [facility] Comment on above: Performed By: #### C BC/2A, MSEP, ANAFX, ACAX3, ESRCRP, TSHFX, VD25, CCP, RHF, URCA #### [facility] [address] [facility], [address] Albumin/Globulin [Mass ratio] 1.5 {ratio} Normal (1.2 - 2.2) [facility] Comment on above: Performed By: #### C BC/2A, MSEP, ANAFX, ACAX3, ESRCRP, TSHFX, VD25, CCP, RHF, URCA #### [facility] [address] [facility], [address] ALPHA 1 0.2 G/DL Normal (0.1 - 0.3) [facility] Comment on above: Performed By: #### C BC/2A, MSEP, ANAFX, ACAX3, ESRCRP, TSHFX, VD25, CCP, RHF, URCA #### [facility] [address] [facility], [address] ALPHA 2 0.8 G/DL Normal (0.2 - 1.1) [facility] Comment on above: Performed By: #### C BC/2A, MSEP, ANAFX, ACAX3, ESRCRP, TSHFX, VD25, CCP, RHF, URCA #### [facility] [address] [facility], [address] BETA 0.8 G/DL Normal (0.6 - 1.1) [facility] Comment on above: Performed By: #### C BC/2A, MSEP, ANAFX, ACAX3, ESRCRP, TSHFX, VD25, CCP, RHF, URCA #### [facility] [address] [facility], [address] GAMMA 1.3 G/DL Normal (0.5 - 1.5) [facility] Comment on above: Performed By: #### C BC/2A, MSEP, ANAFX, ACAX3, ESRCRP, TSHFX, VD25, CCP, RHF, URCA #### [facility] [address] [facility], [address] Globulin (S) [Mass/Vol] 3.1 g/dL Normal (2.3 - 3.5) [facility] Comment on above: Performed By: #### C BC/2A, MSEP, ANAFX, ACAX3, ESRCRP, TSHFX, VD25, CCP, RHF, URCA #### [facility] [address] [facility], [address] Protein [Mass/Vol] 7.9 g/dL Normal (6.3 - 8.2) [facility] Comment on above: Performed By: #### C BC/2A, MSEP, ANAFX, ACAX3, ESRCRP, TSHFX, VD25, CCP, RHF, URCA #### [facility] [address] [facility], [address] Protein [Mass/Vol] 0.0 g/dL Normal (0.0 - 0.01) [facility] Comment on above: Result Comment: AN A PPARENT NORMAL SERUM ELECTROPHORETIC PATTERN. Performed By: #### C BC/2A, MSEP, ANAFX, ACAX3, ESRCRP, TSHFX, VD25, CCP, RHF, URCA #### [facility] [address] [facility], [address] TSH WITH REFLEXon 09-28-2023 REFLEX T4, FREE NO Normal () [facility] in Comment on above: Performed By: #### C BC/2A, MSEP, ANAFX, ACAX3, ESRCRP, TSHFX, VD25, CCP, RHF, URCA #### [facility] [address] [place], [address] TSH Qn 0.842 m[IU]/L Normal (0.470 - 4.680) [facility] Comment on above: Performed By: #### C BC/2A, MSEP, ANAFX, ACAX3, ESRCRP, TSHFX, VD25, CCP, RHF, URCA #### [facility] [address] [place], [address] URIC ACIDon 09-28-2023 Urate [Mass/Vol] 4.8 mg/dL Normal (2.5 - 6.2) [facility] Comment on above: Performed By: #### C BC/2A, MSEP, ANAFX, ACAX3, ESRCRP, TSHFX, VD25, CCP, RHF, URCA #### [facility] [address] [place], [address] VITAMIN D, 25 HYDROXYon 09-10 VITAMIN D, 25 31.7 NG/ML Normal (30.0 - 100.0) [facility] Comment on above: Result Comment: * * * VITAMIN D, 25 HYDROXY GENERAL GUIDELINE * * * DEFICIENCY = < OR = 20.0 NG/ML INSUFFICIENCY = 20.1 - 29.9 NG/ML SUFFICIENCY = 30.0 - 100.0 NG/ML TOXICITY = > 100.1 NG/ML Performed By: #### C BC/2A, MSEP, ANAFX, ACAX3, ESRCRP, TSHFX, VD25, CCP, RHF, URCA #### [facility] [address] [facility], [id number] Vital Signs Date Time Vital Sign Value Performing Clinician Rose Marie mckeon 06-22-2025 11:58-0400 Body height 157.5 cm Mariajose Clemente MD MPH Work Phone: [facility] 06-22-2025 11:58-0400 Body mass index (BMI) [Ratio] 17.19 kg/m2 Mariajose Clemente MD MPH Work Phone: [facility] 06-22-2025 11:58-0400 Body weight 42.64 kg Mariajose Clemente MD MPH Work Phone: [facility] 06-22-2025 11:58-0400 Diastolic blood pressure 78 mm[Hg] Mariajose Clemente MD MPH Work Phone: [facility] 06-22-2025 11:58-0400 Heart rate 81 /min Mariajose Clemente MD MPH Work Phone: [facility] 06-22-2025 11:58-0400 Respiratory rate 16 /min Mariajose Clemente MD MPH Work Phone: [facility] 06-22-2025 11:58-0400 Systolic blood pressure 136 mm[Hg] Mariajose Clemente MD MPH Work Phone: [facility] 05-17-2025 10:35-0400 Body mass index (BMI) [Ratio] 16.46 kg/m2 Trice Silva MD Work Phone: [facility] 05-17-2025 10:35-0400 Body weight 40.82 kg Trice Silva MD Work Phone: [facility] 05-17-2025 10:35-0400 Diastolic blood pressure 78 mm[Hg] Trice Silva MD Work Phone: [facility] 05-17-2025 10:35-0400 Heart rate 66 /min Trice Silva MD Work Phone: [facility] 05-17-2025 10:35-0400 Systolic blood pressure 147 mm[Hg] Trice Silva MD Work Phone: [facility] 05-03-2025 06:57-0400 Body height 157.5 cm Mi Dominguez MD Work Phone: [facility] 05-03-2025 06:57-0400 Body mass index (BMI) [Ratio] 15 kg/m2 Mi Dominguez MD Work Phone: [facility] 05-03-2025 06:57-0400 Body weight 37.2 kg Mi Dominguez MD Work Phone: [facility] 04-25-2025 12:33-0400 Body height 161.3 cm Ofelia Pierce V, ENGINEER DESIGN AND CONSTRUCTION-PERCUSSION WELDING MACHINE OPERATOR Work Phone: [facility] 04-25-2025 12:33-0400 Body mass index (BMI) [Ratio] 15.17 kg/m2 Ofelia Pierce V, ENGINEER DESIGN AND CONSTRUCTION-PERCUSSION WELDING MACHINE OPERATOR Work Phone: [facility] 04-25-2025 12:33-0400 Body weight 39.46 kg Ofelia Pierce V, ENGINEER DESIGN AND CONSTRUCTION-PERCUSSION WELDING MACHINE OPERATOR Work Phone: [facility] 04-11-2025 11:55-0400 Body height 161.3 cm Duong Alex DO Work Phone: [facility] 04-11-2025 11:55-0400 Body mass index (BMI) [Ratio] 15.17 kg/m2 Duong Alex DO Work Phone: [facility] 04-11-2025 11:55-0400 Body weight 39.46 kg Duong Alex DO Work Phone: [facility] 04-11-2025 11:55-0400 Diastolic blood pressure 90 mm[Hg] Duong Alex DO Work Phone: [facility] 04-11-2025 11:55-0400 Heart rate 86 /min Duong Alex DO Work Phone: [facility] 04-11-2025 11:55-0400 SaO2% (BldA) [Mass fraction] 98 % Duong Alex DO Work Phone: [facility] 04-11-2025 11:55-0400 Systolic blood pressure 160 mm[Hg] Duong Alex DO Work Phone: [facility] 03-06-2025 11:42-0400 Body height 157.5 cm Mariajose Clemente MD MPH Work Phone: [facility] 03-06-2025 11:42-0400 Body mass index (BMI) [Ratio] 17.01 kg/m2 Mariajose Clemente MD MPH Work Phone: [facility] 03-06-2025 11:42-0400 Body weight 42.19 kg Mariajose Clemente MD MPH Work Phone: [facility] 03-06-2025 11:42-0400 Diastolic blood pressure 82 mm[Hg] Mariajose Clemente MD MPH Work Phone: [facility] 03-06-2025 11:42-0400 Heart rate 83 /min Mariajose Clemente MD MPH Work Phone: [facility] 03-06-2025 11:42-0400 Respiratory rate 14 /min Amramos Clemente MD MPH Work Phone: [facility] 03-06-2025 11:42-0400 Systolic blood pressure 132 mm[Hg] Mariajose Clemente MD MPH Work Phone: [facility] 02-21-2025 10:31-0400 Body height 157.5 cm Brenden Caba ENGINEER DESIGN AND CONSTRUCTION-PERCUSSION WELDING MACHINE OPERATOR Work Phone: [employer] 02-21-2025 10:31-0400 Body mass index (BMI) [Ratio] 16.64 kg/m2 Brenden Caba ENGINEER DESIGN AND CONSTRUCTION-PERCUSSION WELDING MACHINE OPERATOR [facility] 02-21-2025 10:31-0400 Body weight 41.28 kg Brenden Caba ENGINEER DESIGN AND CONSTRUCTION-PERCUSSION WELDING MACHINE OPERATOR [facility] Phone[facility] 02-21-2025 10:31-0400 Diastolic blood pressure 78 mm[Hg] Brenden Caba ENGINEER DESIGN AND CONSTRUCTION-PERCUSSION WELDING MACHINE OPERATOR [facility] Phone[facility] 02-21-2025 10:31-0400 Heart rate 89 /min Brenden Caba ENGINEER DESIGN AND CONSTRUCTION-PERCUSSION WELDING MACHINE OPERATOR [facility] 02-21-2025 10:31-0400 SaO2% (BldA) [Mass fraction] 96 % Brenden Caba ENGINEER DESIGN AND CONSTRUCTION-PERCUSSION WELDING MACHINE OPERATOR Work Phone: [facility] [employer] 02-21-2025 10:31-0400 Systolic blood pressure 132 mm[Hg] Brenden Caba ENGINEER DESIGN AND CONSTRUCTION-PERCUSSION WELDING MACHINE OPERATOR [facility] Phone: [facility] [employer] 02-13-2025 13:31-0400 Diastolic blood pressure 72 mm[Hg] Isidro Dankert DO Work Phone: [facility] [employer] 02-13-2025 13:31-0400 Heart rate 92 /min Isidro Dankert DO Work Phone: [employer] 02-13-2025 13:31-0400 Respiratory rate 16 /min Isidro Dankert DO Work Phone: [facility] [employer] 02-13-2025 13:31-0400 Systolic blood pressure 166 mm[Hg] Isidro Dankert DO Work Phone: [facility] [employer] 01-30-2025 14:38-0400 Diastolic blood pressure 85 mm[Hg] Isidro [facility]ullivankert DO [facility] 01-30-2025 14:38-0400 Heart rate 80 /min Isidro Dankert DO Work Phone: [facility] [employer] 01-30-2025 14:38-0400 Respiratory rate 16 /min Isidro Osullivankert DO Work Phone: [facility] [employer] 01-30-2025 14:38-0400 Systolic blood pressure 175 mm[Hg] Isidro Dankert DO Work Phone: [facility] [employer] 01-30-2025 14:02-0400 SaO2% (BldA) [Mass fraction] 98 % Isidro Campbellt DO Work Phone: [facility] [employer] [facility] 01-26-2025 10:31-0400 Body height 157.5 cm Trice Silva MD Work Phone: [facility] [employer] [facility] 01-26-2025 10:31-0400 Body mass index (BMI) [Ratio] 17.56 kg/m2 Trice Silva MD Work Phone: [facility] [employer] [facility] 01-26-2025 10:31-0400 Body weight 43.55 kg Trice Silva MD Work Phone: [facility] [employer] [facility] 01-23-2025 10:01-0400 Body height 157.5 cm Yusra Hamlin MD Work Phone: [facility] [employer] [facility] 01-23-2025 10:01-0400 Body mass index (BMI) [Ratio] 17.37 kg/m2 Yusra Hamlin MD Work Phone: [facility] [employer] 01-23-2025 10:01-0400 Body weight 43.09 kg Yusra Hamlin MD Work Phone: [facility] [employer] [facility] 01-23-2025 10:01-0400 Diastolic blood pressure 84 mm[Hg] Yursa Hamlin MD Work Phone: [facility] 01-23-2025 10:01-0400 Heart rate 96 /min Yusra Hamlin MD Work Phone: [facility] 01-23-2025 10:01-0400 Systolic blood pressure 133 mm[Hg] Yusra Hamlin MD Work Phone: [facility] 12-06-2024 13:15-0500 Body height 157.5 cm Ofelia Pierce V, ENGINEER DESIGN AND CONSTRUCTION-PERCUSSION WELDING MACHINE OPERATOR Work Phone: [facility] 12-06-2024 13:15-0500 Body mass index (BMI) [Ratio] 18.58 kg/m2 Ofelia Pierce V, ENGINEER DESIGN AND CONSTRUCTION-PERCUSSION WELDING MACHINE OPERATOR Work Phone: [facility] 12-06-2024 13:15-0500 Body weight 46.1 kg Ofelia Pierce V, ENGINEER DESIGN AND CONSTRUCTION-PERCUSSION WELDING MACHINE OPERATOR Work Phone: [facility] 12-06-2024 11:48-0500 Body height 157.5 cm Mariajose Clemente MD MPH Work Phone: [facility] 12-06-2024 11:48-0500 Body mass index (BMI) [Ratio] 18.58 kg/m2 Mariajose Clemente MD MPH Work Phone: [facility] 12-06-2024 11:48-0500 Body weight 46.09 kg Mairajose Clemente MD MPH Work Phone: [facility] 12-06-2024 11:48-0500 Diastolic blood pressure 82 mm[Hg] Mariajose Clemente MD MPH Work Phone: [facility] 12-06-2024 11:48-0500 Heart rate 97 /min Mariajose Clemente MD MPH Work Phone: [facility] 12-06-2024 11:48-0500 Respiratory rate 14 /min Mariajose Clemente MD MPH Work Phone: [facility] 12-06-2024 11:48-0500 Systolic blood pressure 132 mm[Hg] Mariajose Clemente MD MPH Work Phone: [facility] Encounters Encounter Date Encounter Type Care Provider Facility Start: 07-04-2025 End: 07-05-2025 Telephone encounter Trice Silva MD Work Phone: [facility] Neurology, A Department of [facility] Start: 07-03-2025 End: 07-03-2025 Orders Only Ines Uribe PA-C Work Phone: [facility], A Department of [facility] Start: 06-30-2025 End: 07-03-2025 Telephone encounter Beena Gaytan [facility] Neurology, A Department of [facility] Comment on above: Med Refill Parkinson's disease ([facility]) Start: 06-29-2025 End: 07-04-2025 Telephone encounter Aiden Jones [facility], A Department of [facility] Start: 06-28-2025 End: 06-28-2025 ambulatory BRENDEN Zuñiga [facility] Start: 06-27-2025 End: 06-27-2025 Refill Cee Tolentino [facility] Comment on above: Wheezing Start: 06-22-2025 End: 06-22-2025 Office outpatient visit 25 minutes Mariajose Clemente MD MPH Work Phone: [facility] Rheumatology, A Department of [facility] Comment on above: Inflammatory polyart hritis ([facility]) (Primary Dx); Seronegative rheumatoid arthritis ([facility]); Primary osteoarthritis involving multiple joints; Chronic bilateral low back pain without sciatica; Medication monitoring encounter; Neck pain; Muscle tension pain Start: 06-22-2025 End: 06-22-2025 ambulatory MARIAJOSE CLEMENTE [facility] Start: 06-19-2025 End: 06-20-2025 Refill Dangelo Floyd [facility] Neurology, A Department of [facility] Comment on above: Parkinson's disease (CMS-HCC) Start: 06-08-2025 End: 06-08-2025 amb[facility] Start: 05-31-2025 End: 05-31-2025 Telephone encounter Padmaja Lindsay [facility] Neu[facility], A Department of [facility] Comment on above: Physical Therapy / S peech Therapy Start: 05-25-2025 ambulatory BRENDEN Yogesh [facility] Start: 05-23-2025 ambulatory KRESS Yogesh [facility] Start: 05-22-2025 End: 05-22-2025 Nohemi Russell MD Work Phone: [facility] Start: 05-17-2025 End: 05-17-2025 ambulatory [facility] Start: 05-17-2025 End: 05-17-2025 Office outpatient visit 40 minutes Trice Silva MD Work Phone: [facility] Neurology, A Department of [facility] Comment on above: Parkinson's disease with dyskinesia and fluctuating manifestations ([facility]) (Primary Dx); Dysphagia, unspecified type Start: 05-10-2025 End: 05-10-2025 Orders Only Annalise Rodriguez [facility] Start: 05-09-2025 End: 05-09-2025 Telephone encounter Stephenie Negro RN [facility] Comment on above: Care Navigation Start: 05-05-2025 End: 05-05-2025 Telephone encounter Janell Hebert DO Work Phone: [facility] Start: 05-03-2025 End: 05-03-2025 Patient encounter procedure Mi Dominguez MD Work Phone: [facility] Comment on above: Health care maintena nce (Primary Dx); Iron deficiency anemia, unspecified iron deficiency anemia type; Weight loss; Decreased appetite; Parkinson's disease ([facility]); Inflammatory polyarthritis ([facility]); Primary hypertension; Chronic heart failure with preserved ejection fraction ([facility]); Insomnia, unspecified type; Hyperbilirubinemia; Elevated serum creatinine Start: 05-03-2025 End: 05-03-2025 Patient encounter status Mi Dominguez MD Work Phone: [facility] Work Phone: Start: 05-03-2025 End: 05-05-2025 Orders Only Annalise Rodriguez [facility] Comment on above: Dysuria (Primary Dx) ; Frequency of urination call back ; Medical Concern Start: 04-25-2025 End: 04-25-2025 Office outpatient visit 15 minutes Ofelia LAFLEUR Work Phone: [facility] Physical Medicine [facility] Rehabilitation Comment on above: Chronic pain syndrom e (Primary Dx); Cervical radiculopathy; Neck pain, chronic; Chronic bilateral low back pain without sciatica Start: 04-25-2025 End: 04-25-2025 ambulatory [facility] Start: 04-25-2025 ambulatory [facility] Start: 04-25-2025 Encounter for genera l adult medical examination without abnormal findings [facility] Start: 04-17-2025 End: 04-17-2025 Emergency department patient visit STANLEYManjula Joyce RAE [facility] Start: 04-17-2025 End: 04-17-2025 Orders Only Mi Dominguez MD Work Phone: [facility] Comment on above: Health care maintena nce (Primary Dx) Start: 04-17-2025 End: 04-17-2025 Patient encounter status Mi Dominguez MD Work Phone: [facility] Start: 04-14-2025 End: 04-14-2025 Orders Only Mi Dominguez MD Work Phone: [facility] Comment on above: Health care maintena nce (Primary Dx) Start: 04-14-2025 End: 04-14-2025 Patient encounter status Mi Dominguez MD Work Phone: [facility] Start: 04-11-2025 End: 04-11-2025 ambulatory DUONG Nicol[facility] Start: 04-11-2025 End: 04-11-2025 Office outpatient visit 25 minutes Duong Menendez DO Work Phone: [facility] Card[facility] Comment on above: Chronic heart failur e with preserved ejection fraction ([facility]) (Primary Dx); Mixed hyperlipidemia; Nonrheumatic mitral valve regurgitation Start: 03-20-2025 End: 03-20-2025 ambulatory BRENDEN CABA [facility] Start: 03-17-2025 End: 03-17-2025 Telephone encounter Trice Silva MD Work Phone: [facility] Neu[facility], A Department of [facility] Start: 03-16-2025 End: 03-16-2025 Telephone encounter Any Yun RN [facility] Card[facility] Comment on above: Appeal for [employer] Auth Start: 03-10-2025 End: 03-13-2025 Refill Brenden Caba ENGINEER DESIGN AND CONSTRUCTION-PERCUSSION WELDING MACHINE OPERATOR Work Phone: [facility] Comment on above: Mixed hyperlipidemia Start: 03-07-2025 End: 03-07-2025 Orders Only Trice Silva MD Work Phone: [facility], A Department of [facility] Comment on above: Parkinson's disease with dyskinesia and fluctuating manifestations ([facility]) Start: 03-06-2025 End: 03-06-2025 Office outpatient visit 25 minutes Mariajose Clemente MD MPH Work Phone: [facility] Rheumatology, A Department of [facility] Comment on above: Inflammatory polyart hritis ([facility]) (Primary Dx); Seronegative rheumatoid arthritis ([facility]); Medication monitoring encounter; Neck pain Start: 03-06-2025 End: 03-06-2025 ambulatory MARIAJOSE CLEMENTE [facility] Start: 02-28-2025 End: 03-02-2025 Telephone encounter Trice Silva MD Work Phone: [facility], A Department of [facility] Start: 02-27-2025 End: 02-27-2025 ambulatory KRESS Yogesh [facility] Start: 02-22-2025 End: 02-22-2025 Orders Only Cee Tolentino [facility] Comment on above: Encounter for screen ing mammogram for malignant neoplasm of breast (Primary Dx) Start: 02-21-2025 End: 02-21-2025 ambulatory BRENDEN L [facility] Start: 02-21-2025 End: 02-21-2025 Patient encounter status Brenden Caba ENGINEER DESIGN AND CONSTRUCTION-PERCUSSION WELDING MACHINE OPERATOR Work Phone: [facility] Start: 02-21-2025 End: 02-21-2025 Periodic preventive med est patient 65yrs& older Brenden Caba ENGINEER DESIGN AND CONSTRUCTION-PERCUSSION WELDING MACHINE OPERATOR Work Phone: [facility] Comment on above: Health care maintena nce (Primary Dx); Primary hypertension; Chronic heart failure with preserved ejection fraction (CMS-HCC); Chronic obstructive pulmonary disease, unspecified COPD type (CMS-HCC); Parkinson's disease ([facility]); Mixed hyperlipidemia; Complication associated with silicone gel-filled breast implant Start: 02-13-2025 End: 02-13-2025 Patient encounter procedure Isidro Woodall DO Work Phone: [facility] Comment on above: Cervical radiculopat hy (Primary Dx) Start: 02-13-2025 End: 02-13-2025 ambulatory BRENDEN Yogesh [facility] Start: 02-09-2025 ambulatory BRENDEN CABA [facility] Start: 02-02-2025 End: 02-02-2025 ambulatory KRESS Yogesh [facility] Start: 02-02-2025 Encounter for genera l adult medical examination without abnormal findings COLLEEN RUSSELL [facility] Start: 01-30-2025 End: 01-30-2025 Patient encounter procedure Isidro Barnhart Talisha DO [facility] Phone: [facility] Comment on above: Cervical radiculopat hy (Primary Dx) Start: 01-30-2025 End: 01-30-2025 ambulatory [facility] Start: 01-27-2025 End: 01-27-2025 Telephone encounter Dianna Maxwell [facility], A Department of [facility] Start: 01-26-2025 End: 01-26-2025 Office outpatient visit 15 minutes Trice Silva MD Work Phone: [facility], A Department of [facility] Comment on above: Parkinson's disease with dyskinesia and fluctuating manifestations (CMS-HCC) (Primary Dx); Parkinson's disease (CMS-HCC); Insomnia due to medical condition Start: 01-26-2025 End: 01-26-2025 ambulatory [facility] Start: 01-24-2025 End: 01-24-2025 [facility] Start: 01-23-2025 End: 01-26-2025 Refill Trice Silva MD Work Phone: [facility] Comment on above: Insomnia due to medi angely condition Start: 01-23-2025 End: 01-24-2025 Telephone [facility] Start: 01-23-2025 End: 01-23-2025 Office outpatient new 45 minutes Yusra Hamlin MD Work Phone: [facility] Comment on above: Cervical spinal sten osis (Primary Dx); Cervical spondylosis; Neck pain Start: 01-23-2025 End: 01-23-2025 ambulatory YUSRA HAMLIN [facility] Start: 12-29-2024 End: 12-29-2024 Orders Only [facility] Decker [facility] Comment on above: Neck pain (Primary D x) Start: 12-28-2024 End: 12-28-2024 Orders Only Paulette Owens CMA [facility] Physical Medicine and Rehabilitation Comment on above: Cervical radiculopat hy (Primary Dx) Restless leg syndrom e Start: 12-27-2024 End: 12-27-2024 Orders Only Bay Castillo Rishi [facility] Comment on above: Chronic pain syndrom e (Primary Dx); Neck pain, chronic; Cervical radiculopathy Start: 12-23-2024 End: 12-23-2024 ambulatory [facility] Start: 12-23-2024 End: 12-26-2024 Telephone encounter Sury España [facility] Start: 12-15-2024 End: 12-16-2024 Refill Evette Okeefe MD Work Phone: [facility] Comment on above: Restless leg syndrom e Start: 12-08-2024 End: 12-08-2024 Orders Only Bay Castillo [facility] Physical Medicine and Rehabilitation Comment on above: Chronic pain syndrom e (Primary Dx); Neck pain, chronic; Cervical radiculopathy Start: 12-08-2024 End: 12-09-2024 Refill Trice Silva MD Work Phone: [facility] Neu[facility] Comment on above: Insomnia due to medi angely condition Start: 12-06-2024 End: 12-06-2024 [facility] Start: 12-06-2024 End: 12-06-2024 Office outpatient new 30 minutes Ofelia Pierce ENGINEER DESIGN AND CONSTRUCTION-PERCUSSION WELDING MACHINE OPERATOR Work Phone: [facility] Comment on above: Cervical radiculopat hy (Primary Dx); Chronic pain syndrome; Neck pain, chronic Start: 12-06-2024 End: 12-06-2024 ambulatory [facility] Start: 12-06-2024 End: 12-06-2024 Office outpatient visit 40 minutes Mariajose Clemente MD MPH Work Phone: [facility] Rheumatology Comment on above: Seronegative rheumat oid arthritis ([facility]) (Primary Dx); Neck pain; Muscle tension pain; Inflammatory polyarthritis ([facility]); Anti-cardiolipin antibody positive; Raynaud disease without gangrene; Primary osteoarthritis involving multiple joints; Fibromyalgia Start: 12-06-2024 End: 12-06-2024 ambulatory MARIAJOSE LUNDBERG [facility] Start: 11-30-2024 End: 12-01-2024 Refill Trice Silva MD Work Phone: [facility] Neurology Comment on above: Parkinson's disease ([facility]); Restless leg syndrome Start: 11-29-2024 End: 11-29-2024 ambulatory [facility] Start: 11-20-2024 End: 11-22-2024 Refill Jack Stubbs MD Work Phone: [facility] Neu[facility] Comment on above: Parkinson's disease ([facility]) Start: 11-04-2024 ambulatory [facility] Start: 11-04-2024 End: 11-04-2024 ambulatory [facility] Start: 10-20-2024 End: 10-20-2024 ambulatory [facility] Start: 10-04-2024 End: 10-04-2024 ambulatory DUONG MENENDEZ [facility] Start: 09-29-2024 End: 09-29-2024 ambulatory [facility] Start: 08-24-2024 End: 08-24-2024 ambulatory [facility] Start: 08-09-2024 End: 08-09-2024 [facility] Start: 08-09-2024 End: 08-09-2024 [facility] Start: 07-13-2024 End: 07-13-2024 ambulatory COLLEEN RUSSELL [facility] Start: 07-05-2024 End: 07-05-2024 ambulatory KRESS Yogesh [facility] Start: 06-29-2024 End: 06-29-2024 ambulatory KRESS Yogesh [facility] Start: 06-28-2024 End: 06-30-2024 Subsequent hospital visit by physician Gavin [facility] Comment on above: Bilateral hand pain Start: 06-28-2024 End: 06-30-2024 ambulatory JOE JOHNSON [facility] Start: 06-21-2024 End: 06-23-2024 ambulatory MI Tovar ANGELICA [facility] Start: 01-13-2024 End: 01-15-2024 ambulatory MI Tovar [facility] Procedures Date Procedure Procedure Detail Performing Clinician Start: 05-17-2025 Adult depression scr eening assessment Trice Silva MD Work Phone: Start: 05-03-2025 Ecg routine ecg w/le ast 12 lds w/i&r Mi Dominguez MD Work Phone: Start: 01-26-2025 Adult depression scr eening assessment Trice Silva MD Work Phone: Start: 12-06-2024 JOINT ASPIRATION/INJECTION Ofelia Pierce ENGINEER DESIGN AND CONSTRUCTION-PERCUSSION WELDING MACHINE OPERATOR Work Phone: Start: 11-29-2024 Cyclic citrullinated peptide antibody COLLEEN RUSSELL Comment on above: Result Comment: Interpretation-------- <3 Negative >=3 Positive Performed By: #### C BCA, 70684-0, ENAP, 36809-9, LIVR, 1988-5, AHP, FINANCE OFFICER, 29199-2 ####[facility] ([id number] [facility], [address] [place], [place] [id number] Start: 11-04-2024 Mammography Jack givens MD Work Phone: Start: 08-09-2024 Follow-up visit Follow-up CHARISSA CABA Start: 08-09-2024 Adult depression scr eening assessment Jack Stubbs MD Work Phone: Start: 07-05-2024 Follow-up visit Follow-up [facility] Start: 06-28-2024 Radex wrist complete minimum 3 views Joe Trevinochelseachente DO Work Phone: Start: 09-28-2023 Cyclic citrullinated peptide antibody Comment on above: Performed By: #### C BC/2A, MSEP, ANAFX, ACAX3, ESRCRP, TSHFX, VD25, CCP, RHF, URCA #### [facility] [address] [facility], [address] Start: 10-29-2015 Colonoscopy Jack givens MD Work Phone: Plan of Treatment Date Care Activity Detail Author Start: 05-11-2035 DTaP,Tdap and Td Vaccines (4 - Td or Tdap) DTaP,Tdap and Td Vaccines (4 - Td or Tdap) [facility] Start: 07-25-2031 DTaP,Tdap and Td Vaccines (3 - Td or Tdap) DTaP,Tdap and Td Vaccines (3 - Td or Tdap) [facility] Start: 07-25-2031 DTaP/Tdap/Td vaccine (3 - Td or Tdap) DTaP/Tdap/Td vaccine (3 - Td or Tdap) [facility] Start: 06-22-2026 Adult BMI Screening Adult BMI Screening [facility] Start: 06-22-2026 Tobacco Screening Tobacco Screening [facility] Start: 05-17-2026 Adult BMI Screening Adult BMI Screening [facility] Start: 05-17-2026 Depression Screening Depression Screening [facility] Start: 05-17-2026 Tobacco Screening Tobacco Screening [facility] Start: 05-03-2026 Adult BMI Screening Adult BMI Screening [facility] Start: 04-25-2026 Adult BMI Screening Adult BMI Screening [facility] Start: 04-25-2026 Tobacco Screening Tobacco Screening [facility] Start: 04-17-2026 Tobacco Screening Tobacco Screening [facility] Start: 04-11-2026 Adult BMI Screening Adult BMI Screening [facility] Start: 03-06-2026 Adult BMI Screening Adult BMI Screening [facility] Start: 03-06-2026 Tobacco Screening Tobacco Screening [facility] Start: 02-21-2026 Adult BMI Follow Up Plan Adult BMI Follow Up Plan [facility] Start: 02-21-2026 Adult BMI Screening Adult BMI Screening [facility] Start: 02-21-2026 Tobacco Screening Tobacco Screening [facility] Start: 01-26-2026 Adult BMI Follow Up Plan Adult BMI Follow Up Plan [facility] Start: 01-26-2026 Adult BMI Screening Adult BMI Screening [facility] Start: 01-26-2026 Depression Screening Depression Screening [facility] Start: 01-26-2026 Tobacco Screening Tobacco Screening [facility] Start: 01-23-2026 Adult BMI Screening Adult BMI Screening [facility] Start: 01-23-2026 Tobacco Screening Tobacco Screening [facility] Start: 01-12-2026 Screening for malignant neoplasm of breast Breast cancer screen [address] [facility] [facility] Start: 12-23-2025 Adult BMI Screening Adult BMI Screening [facility] Start: 12-06-2025 Adult BMI Screening Adult BMI Screening [facility] Start: 12-06-2025 Tobacco Screening Tobacco Screening [facility] Start: 11-21-2025 End: 11-21-2025 Patient encounter procedure 11/21/2025 12:30 PM EST Appointment [facility] [place] [facility] [address] [place] [phone] [facility] [place] [facility] Start: 11-14-2025 End: 11-14-2025 Patient encounter procedure 11/14/2025 12:20 PM EST Office Visit [facility] [address] [place] [phone] Ofelia Pierce V, ENGINEER DESIGN AND CONSTRUCTION-PERCUSSION WELDING MACHINE OPERATOR [address] [facility] [address] [place] [address] [facility] Start: 11-04-2025 Adult BMI Screening Adult BMI Screening [facility] Start: 11-04-2025 Screening for malignant neoplasm of breast Mammogram [facility] Start: 10-29-2025 Screening for malignant neoplasm of colon Colonoscopy [facility] Start: 10-20-2025 Tobacco Screening Tobacco Screening [facility] Start: 10-13-2025 End: 10-13-2025 Patient encounter procedure 10/13/2025 3:15 PM EST Office Visit [facility], A Department of [address] [phone] Ines Uribe PA-C [address] [place], [place] [phone] [place] [address] [facility], A Department of [facility] Start: 10-13-2025 End: 10-13-2025 Patient encounter procedure 10/13/2025 11:45 AM EST Office Visit [facility] [address] [place] [phone] Duong Menendez, [address] [place] [address], [address] [place] [address] [facility] Start: 09-26-2025 End: 09-26-2025 Patient encounter procedure 09/26/2025 1:30 PM EST Office Visit [facility], A Department of [address] [phone] Mariajose Clemente MD MPH [address] [place] [phone] [facility], A Department of [facility] Start: 08-31-2025 End: 08-31-2025 Patient encounter procedure 08/31/2025 1:45 PM EDT Appointment [facility] [place] [facility] [address] [place] [phone] [facility] [place] [facility] Start: 08-23-2025 End: 08-23-2025 Patient encounter procedure 08/23/2025 1:30 PM EDT Office Visit [facility] [address] [facility] [address] [place] [phone] Brenden Caba, ENGINEER DESIGN AND CONSTRUCTION-PERCUSSION WELDING MACHINE OPERATOR [address] [facility], [address] [place] [address] [facility] Start: 08-22-2025 End: 08-22-2025 Patient encounter procedure 08/22/2025 2:30 PM EDT Office Visit [facility] [address] [facility] [address] [place] [phone] Isidro Woodall, [address] [facility] [address] [place] [address] [facility] Start: 08-21-2025 End: 08-21-2025 Patient encounter procedure 08/21/2025 2:30 PM EDT Appointment [facility] [address] [place] [address] [facility] Start: 08-09-2025 Depression Screening Depression Screening [facility] Start: 08-07-2025 End: 08-07-2025 Patient encounter procedure [facility] Start: 08-01-2025 End: 08-01-2025 Patient encounter procedure 08/01/2025 2:00 PM EDT Office Visit [facility], A Department of [facility] [address] [facility] [address] [place] [phone] [place] [address] [place] [address] 101, [address] [place] [address] [facility], A Department of [facility] Start: 07-10-2025 Influenza vaccination Influenza Vaccine [facility] Start: 06-29-2025 Adult BMI Follow Up Plan Adult BMI Follow Up Plan [facility] Start: 06-29-2025 End: 06-29-2026 RF Spine epidural space Views W contrast IT Fluoroscopy AMB cervical epidural Imaging Routine Cervical radiculopathy Expected: 06/29/2025, Expires: 06/29/2026 [facility] Work Phone: Comment on above: Expected: 06/29/2025, Expires: 6 Start: 06-28-2025 End: 06-28-2025 Patient encounter procedure 06/28/2025 1:00 PM EDT Appointment [facility] - Radiology [address] [place] [phone] Trice Silva MD [address] [place] [address] 101, [address] [place] [address] [facility] - Radiology Start: 06-22-2025 End: 06-22-2026 XR Lumbar spine 2 or 3 Views [facility] Work Phone: Comment on above: Expected: 06/22/2025, Expires: 6 Start: 06-22-2025 End: 06-22-2025 Patient encounter procedure 06/22/2025 12:00 PM EDT Office Visit [facility], A Department of [address] [phone] Mariajose Clemente MD [facility] [address] [place] [phone] [facility], A Department of [facility] Start: 06-20-2025 End: 06-20-2025 Patient encounter procedure 06/20/2025 1:00 PM EDT Appointment [facility] [address] [phone] Parkinson's disease with dyskinesia and fluctuating manifestations ([facility]) [facility] Comment on above: Parkinson's disease with dyskinesia and fluctuating manifestations ([facility]) Start: 06-06-2025 End: 06-06-2025 Patient encounter procedure 06/06/2025 11:45 AM EDT Office Visit [facility], A Department of [address] [phone] Mariajose Clemente MD [address] [phone] [facility], A Department of [facility] Start: 05-17-2025 End: 05-17-2026 RF videography Hypopharynx and Esophagus Views Fluoroscopy swallow motility function Imaging Routine Dysphagia, unspecified type Expected: 05/17/2025, Expires: 05/17/2026 [facility] Work Phone: Comment on above: Expected: 05/17/2025, Expires: Start: 05-17-2025 End: 05-17-2025 Patient encounter procedure [facility], A Department of [facility] Start: 05-03-2025 End: 05-03-2025 Patient encounter procedure [facility] Comment on above: Health care maintenance Start: 04-25-2025 End: 04-25-2025 Patient encounter procedure 04/25/2025 12:20 PM EDT [facility] [address] [phone] Ofelia Pierce V, ENGINEER DESIGN AND CONSTRUCTION-PERCUSSION WELDING MACHINE OPERATOR [address] [place] [address] [facility] Start: 04-25-2025 End: 04-25-2025 Patient encounter procedure [facility] [place] [facility] Start: 04-25-2025 End: 04-25-2025 ambulatory 04/25/2025 10:00 AM EDT Lab [facility] [place] [facility] [address] [place] [address] [facility] [place] [facility] Start: 04-17-2025 End: 04-17-2026 CT Icaria heart without contrast including scoring CT Icaria heart without contrast including scoring Imaging STAT Health care maintenance Expected: 04/17/2025, Expires: 04/17/2026 [facility] Work Phone: Comment on above: Expected: 04/17/2025, Expires: Start: 04-14-2025 End: 04-14-2026 Dexa Icaria scan central skeletal Dexa Icaria scan central skeletal Imaging STAT Health care maintenance Expected: 04/14/2025, Expires: 04/14/2026 [employer] Comment on above: Expected: 04/14/2025, Expires: Start: 04-14-2025 End: 04-14-2026 MR Icaria Body MR Icaria Body Imaging STAT Health care maintenance Expected: 04/14/2025, Expires: 04/14/2026 [employer] [facility] Comment on above: Expected: 04/14/2025, Expires: Start: 04-14-2025 End: 04-14-2026 MR Icaria cardiac MR Icaria cardiac Imaging STAT Health care maintenance Expected: 04/14/2025, Expires: 04/14/2026 [employer] Comment on above: Expected: 04/14/2025, Expires: Start: 04-14-2025 End: 04-14-2026 MR Icaria Neuro MR Icaria Neuro Imaging STAT Health care maintenance Expected: 04/14/2025, Expires: 04/14/2026 [facility] Comment on above: Expected: 04/14/2025, Expires: Start: 04-11-2025 End: 04-11-2025 Patient encounter procedure 04/11/2025 11:45 AM EDT Office Visit [facility] [address] [facility] [address] [place] [address] Duong Menendez, [address] [facility], [address] [place] [address] [facility] Start: 03-20-2025 End: 03-20-2025 Patient encounter procedure 03/20/2025 11:00 AM EDT Appointment [facility] [address] [place] [phone] [facility] Start: 03-06-2025 End: 03-06-2025 Patient encounter procedure [facility] Start: 02-22-2025 End: 02-22-2026 DBT Breast - bilateral screening Mammography screening bilateral with CAD Imaging Routine Encounter for screening mammogram for malignant neoplasm of breast Expected: 02/22/2025, Expires: 02/22/2026 [facility] Work Phone: Comment on above: Expected: 02/22/2025, Expires: Start: 02-21-2025 End: 02-21-2026 MR Breast - bilateral WO and W contrast IV MR bilateral breast with and without contrast with CAD Imaging Routine Complication associated with silicone gel-filled breast implant Expected: 02/21/2025, Expires: 02/21/2026 [facility] Work Phone: Comment on above: Expected: 02/21/2025, Expires: Start: 02-21-2025 End: 02-21-2025 Patient encounter procedure 02/21/2025 10:00 AM EDT Office Visit [facility] [address] [place] [phone] Brenden Caba, ENGINEER DESIGN AND CONSTRUCTION-PERCUSSION WELDING MACHINE OPERATOR [address] [facility], [address] [place] [address] [facility] Start: 02-13-2025 End: 02-13-2025 Patient encounter procedure [facility] Start: 02-09-2025 End: 02-09-2025 Patient encounter procedure 02/09/2025 11:30 AM EDT Appointment [facility] [address] [place] [address] [facility] Start: 01-30-2025 End: 01-30-2025 Patient encounter procedure [facility] Start: 01-25-2025 End: 01-25-2025 Patient encounter procedure [facility] Start: 01-23-2025 End: 01-23-2025 Patient encounter procedure 01/23/2025 10:30 AM EDT Office Visit [facility] [address] [place] [phone] Yusra Hamlin MD [address] [facility] [address] [place], [place] [phone] [facility] Start: 12-29-2024 End: 12-29-2025 XR Cervical spine Lateral Views W flexion and W extension X-ray spine cervical flexion/extension only 2 views Imaging Routine Neck pain Expected: 12/29/2024, Expires: 12/29/2025 [facility] Work Phone: Comment on above: Expected: 12/29/2024, Expires: Start: 12-27-2024 End: 12-27-2025 RF Spine epidural space Views W contrast IT Fluoroscopy AMB cervical epidural Imaging Routine Chronic pain syndrome Neck pain, chronic Cervical radiculopathy Expected: 12/27/2024, Expires: 12/27/2025 [facility] Work Phone: Comment on above: Expected: 12/27/2024, Expires: Start: 12-23-2024 End: 12-23-2024 Patient encounter procedure 12/23/2024 8:00 PM EST Appointment [facility] [address] [place] [address] [facility] Start: 12-08-2024 End: 12-08-2025 MR Cervical spine WO contrast MR cervical spine without contrast Imaging Routine Chronic pain syndrome Neck pain, chronic Cervical radiculopathy Expected: 12/08/2024, Expires: 12/08/2025 [facility] Work Phone: Comment on above: Expected: 12/08/2024, Expires: Start: 12-06-2024 End: 12-06-2025 XR Cervical spine Views [facility] Work Phone: Comment on above: Expected: 12/06/2024, Expires: Start: 12-06-2024 End: 12-06-2024 Patient encounter procedure 12/06/2024 12:00 PM EST Office Visit [facility] [address] [place] [phone] Mariajose Clemente MD MPH [address] [place] [phone] [facility] Start: 07-10-2024 COVID-19 Vaccine ( season) COVID-19 Vaccine ( season) [facility] Start: 07-10-2024 Influenza vaccination Influenza Vaccine [facility] Start: 06-09-2024 Influenza vaccination Flu vaccine (#1) [facility] Start: 07-10-2023 COVID-19 Vaccine ( season) COVID-19 Vaccine ( season) [facility] Start: 03-10-2023 Fall Risk Screening Fall Risk Screening [facility] Start: 2016 Fall Risk Screening Fall Risk Screening [facility] Start: 2011 Respiratory Syncytial Virus (RSV) or age 60 yrs+ (1 - 1-dose 60+ series) Respiratory Syncytial Virus (RSV) or age 60 yrs+ (1 - 1-dose 60+ series) [facility] Start: 1996 Screening for malignant neoplasm of colon [facility] [employer] Start: 1969 Hepatitis C screening Hepatitis C screen [facility] [employer] Start: 1963 Depression Screen [facility] [place] [facility] Start: 1961 Lipid panel Lipids [facility] [employer] End: 04-14-2026 Apolipoprotein A1, S Apolipoprotein A1, S Lab Routine Health care maintenance 1 Occurrences starting 04/14/2025 until 04/14/2026 [employer] Work Phone: Comment on above: 1 Occurrences starting 04/14/2025 until 04/14/2026 End: 04-14-2026 Apolipoprotein B, S Apolipoprotein B, S Lab Routine Health care maintenance 1 Occurrences starting 04/14/2025 until 04/14/2026 [facility] Comment on above: 1 Occurrences starting 04/14/2025 until 04/14/2026 End: 05-03-2026 Bacteria identified in Urine by Culture Urine culture (clean catch) Microbiology Routine Dysuria Frequency of urination 1 Occurrences starting 05/03/2025 until 05/03/2026 [facility] Comment on above: 1 Occurrences starting 05/03/2025 until 05/03/2026 End: 05-05-2026 Basic metabolic 2000 panel - Serum or Plasma Basic Metabolic Panel Lab Routine Decreased appetite 1 Occurrences starting 05/05/2025 until 05/05/2026 [facility] Comment on above: 1 Occurrences starting 05/05/2025 until 05/05/2026 End: 04-14-2026 Bilirubin.indirect [Mass/volume] in Serum or Plasma Bilirubin, direct Lab Routine Health care maintenance 1 Occurrences starting 04/14/2025 until 04/14/2026 [facility] Comment on above: 1 Occurrences starting 04/14/2025 until 04/14/2026 End: 03-06-2026 C-reactive protein C-reactive protein Lab Routine Inflammatory polyarthritis (CMS-HCC) Seronegative rheumatoid arthritis (CMS-HCC) Medication monitoring encounter 1 Occurrences starting 03/06/2025 until 03/06/2026 [employer] Work Phone: Comment on above: 1 Occurrences starting 03/06/2025 until 03/06/2026 End: 06-22-2026 C-reactive protein C-reactive protein Lab Routine Inflammatory polyarthritis (CMS-HCC) Seronegative rheumatoid arthritis (CMS-HCC) Medication monitoring encounter 1 Occurrences starting 06/22/2025 until 06/22/2026 [facility] Comment on above: 1 Occurrences starting 06/22/2025 until 06/22/2026 End: 03-06-2026 CBC W Auto Differential panel - Blood CBC auto differential Lab Routine Inflammatory polyarthritis (CMS-HCC) Seronegative rheumatoid arthritis (CMS-HCC) Medication monitoring encounter 1 Occurrences starting 03/06/2025 until 03/06/2026 [facility] Comment on above: 1 Occurrences starting 03/06/2025 until 03/06/2026 End: 04-14-2026 CBC W Auto Differential panel - Blood CBC auto differential Lab Routine Health care maintenance 1 Occurrences starting 04/14/2025 until 04/14/2026 [facility] Comment on above: 1 Occurrences starting 04/14/2025 until 04/14/2026 End: 05-05-2026 CBC W Auto Differential panel - Blood CBC auto differential Lab Routine Iron deficiency anemia, unspecified iron deficiency anemia type 1 Occurrences starting 05/05/2025 until 05/05/2026 [employer] Work Phone: Comment on above: 1 Occurrences starting 05/05/2025 until 05/05/2026 End: 06-22-2026 CBC W Auto Differential panel - Blood CBC auto differential Lab Routine Inflammatory polyarthritis (CMS-HCC) Seronegative rheumatoid arthritis ([facility]) Medication monitoring encounter 1 Occurrences starting 06/22/2025 until 06/22/2026 [employer] Comment on above: 1 Occurrences starting 06/22/2025 until 06/22/2026 End: 04-14-2026 Clean Catch Urinalysis Clean Catch Urinalysis Lab Routine Health care maintenance 1 Occurrences starting 04/14/2025 until 04/14/2026 [employer] Comment on above: 1 Occurrences starting 04/14/2025 until 04/14/2026 End: 05-05-2026 Clinical Pathology Blood Smear Review Clinical Pathology Blood Smear Review Lab Routine Iron deficiency anemia, unspecified iron deficiency anemia type 1 Occurrences starting 05/05/2025 until 05/05/2026 [facility] Comment on above: 1 Occurrences starting 05/05/2025 until 05/05/2026 End: 04-14-2026 Comprehensive metabolic 2000 panel - Serum or Plasma Comprehensive metabolic panel Lab Routine Health care maintenance 1 Occurrences starting 04/14/2025 until 04/14/2026 [facility] Comment on above: 1 Occurrences starting 04/14/2025 until 04/14/2026 End: 04-14-2026 Cortisol Cortisol Lab Routine Health care maintenance 1 Occurrences starting 04/14/2025 until 04/14/2026 [facility] Comment on above: 1 Occurrences starting 04/14/2025 until 04/14/2026 End: 03-06-2026 Creatinine includes GFR, serum Creatinine includes GFR, serum Lab Routine Inflammatory polyarthritis ([facility]) Seronegative rheumatoid arthritis ([facility]) Medication monitoring encounter 1 Occurrences starting 03/06/2025 until 03/06/2026 [facility] Comment on above: 1 Occurrences starting 03/06/2025 until 03/06/2026 End: 06-22-2026 Creatinine includes GFR, serum Creatinine includes GFR, serum Lab Routine Inflammatory polyarthritis ([facility]) Seronegative rheumatoid arthritis ([facility]) Medication monitoring encounter 1 Occurrences starting 06/22/2025 until 06/22/2026 [facility] Comment on above: 1 Occurrences starting 06/22/2025 until 06/22/2026 End: 04-14-2026 Cyanocobalamin vitamin b-12 Vitamin B12 Lab Routine Health care maintenance 1 Occurrences starting 04/14/2025 until 04/14/2026 [facility] Comment on above: 1 Occurrences starting 04/14/2025 until 04/14/2026 End: 04-14-2026 DHEA-sulfate DHEA-sulfate Lab Routine Health care maintenance 1 Occurrences starting 04/14/2025 until 04/14/2026 [facility] Comment on above: 1 Occurrences starting 04/14/2025 until 04/14/2026 End: 04-14-2026 Dihydrotestosterone, S Dihydrotestosterone, S Lab Routine Health care maintenance 1 Occurrences starting 04/14/2025 until 04/14/2026 [facility] Comment on above: 1 Occurrences starting 04/14/2025 until 04/14/2026 End: 03-06-2026 Erythrocyte sedimentation rate Erythrocyte Sedimentation Rate (ESR) Lab Routine Inflammatory polyarthritis ([facility]) Seronegative rheumatoid arthritis ([facility]) Medication monitoring encounter 1 Occurrences starting 03/06/2025 until 03/06/2026 [facility] Comment on above: 1 Occurrences starting 03/06/2025 until 03/06/2026 End: 04-14-2026 Erythrocyte sedimentation rate Erythrocyte Sedimentation Rate (ESR) Lab Routine Health care maintenance 1 Occurrences starting 04/14/2025 until 04/14/2026 [employer] Comment on above: 1 Occurrences starting 04/14/2025 until 04/14/2026 End: 06-22-2026 Erythrocyte sedimentation rate Erythrocyte Sedimentation Rate (ESR) Lab Routine Inflammatory polyarthritis ([facility]) Seronegative rheumatoid arthritis ([facility]) Medication monitoring encounter 1 Occurrences starting 06/22/2025 until 06/22/2026 [employer] Comment on above: 1 Occurrences starting 06/22/2025 until 06/22/2026 End: 04-14-2026 Estradiol Estradiol Lab Routine Health care maintenance 1 Occurrences starting 04/14/2025 until 04/14/2026 [employer] Comment on above: 1 Occurrences starting 04/14/2025 until 04/14/2026 End: 04-14-2026 Ferritin [Mass/volume] in Serum or Plasma Ferritin Lab Routine Health care maintenance 1 Occurrences starting 04/14/2025 until 04/14/2026 [employer] Comment on above: 1 Occurrences starting 04/14/2025 until 04/14/2026 End: 04-14-2026 Follicle stimulating hormone Follicle stimulating hormone Lab Routine Health care maintenance 1 Occurrences starting 04/14/2025 until 04/14/2026 [employer] Comment on above: 1 Occurrences starting 04/14/2025 until 04/14/2026 End: 04-14-2026 Gamma glutamyl transferase [Enzymatic activity/volume] in Serum or Plasma GGT Lab Routine Health care maintenance 1 Occurrences starting 04/14/2025 until 04/14/2026 [facility] Comment on above: 1 Occurrences starting 04/14/2025 until 04/14/2026 End: 05-05-2026 Haptoglobin Haptoglobin Lab Routine Iron deficiency anemia, unspecified iron deficiency anemia type 1 Occurrences starting 05/05/2025 until 05/05/2026 [employer] Comment on above: 1 Occurrences starting 05/05/2025 until 05/05/2026 End: 04-14-2026 Hemoglobin A1c/Hemoglobin.total in Blood Hemoglobin A1c Lab Routine Health care maintenance 1 Occurrences starting 04/14/2025 until 04/14/2026 [facility] Comment on above: 1 Occurrences starting 04/14/2025 until 04/14/2026 End: 04-14-2026 Hepatitis C virus Ab [Presence] in Serum or Plasma by Immunoassay Hepatitis C(HCV) Ab w/ Reflex to PCR Lab Routine Health care maintenance 1 Occurrences starting 04/14/2025 until 04/14/2026 [facility] Comment on above: 1 Occurrences starting 04/14/2025 until 04/14/2026 End: 04-14-2026 High sensitivity CRP High sensitivity CRP Lab Routine Health care maintenance 1 Occurrences starting 04/14/2025 until 04/14/2026 [employer] Comment on above: 1 Occurrences starting 04/14/2025 until 04/14/2026 End: 04-14-2026 Homocysteine total Homocysteine total Lab Routine Health care maintenance 1 Occurrences starting 04/14/2025 until 04/14/2026 [facility] Comment on above: 1 Occurrences starting 04/14/2025 until 04/14/2026 End: 04-14-2026 Insulin Insulin Lab Routine Health care maintenance 1 Occurrences starting 04/14/2025 until 04/14/2026 [employer] Comment on above: 1 Occurrences starting 04/14/2025 until 04/14/2026 End: 04-14-2026 Insulin-Like GFB Protein 3 Insulin-Like GFB Protein 3 Lab Routine Health care maintenance 1 Occurrences starting 04/14/2025 until 04/14/2026 [facility] Comment on above: 1 Occurrences starting 04/14/2025 until 04/14/2026 End: 04-14-2026 Iron and TIBC Iron and TIBC Lab Routine Health care maintenance 1 Occurrences starting 04/14/2025 until 04/14/2026 [facility] Comment on above: 1 Occurrences starting 04/14/2025 until 04/14/2026 End: 04-14-2026 LDH LDH Lab Routine Health care maintenance 1 Occurrences starting 04/14/2025 until 04/14/2026 [employer] Comment on above: 1 Occurrences starting 04/14/2025 until 04/14/2026 End: 05-05-2026 LDH LDH Lab Routine Iron deficiency anemia, unspecified iron deficiency anemia type 1 Occurrences starting 05/05/2025 until 05/05/2026 [facility] Comment on above: 1 Occurrences starting 05/05/2025 until 05/05/2026 End: 04-14-2026 Lipid 1996 panel - Serum or Plasma Lipid profile Lab Routine Health care maintenance 1 Occurrences starting 04/14/2025 until 04/14/2026 [facility] Comment on above: 1 Occurrences starting 04/14/2025 until 04/14/2026 End: 04-14-2026 Lipoprotein a [Mass/volume] in Serum or Plasma Lipoprotein(a), S Lab Routine Health care maintenance 1 Occurrences starting 04/14/2025 until 04/14/2026 [facility] Comment on above: 1 Occurrences starting 04/14/2025 until 04/14/2026 End: 03-06-2026 Liver panel Liver panel Lab Routine Inflammatory polyarthritis ([facility]) Seronegative rheumatoid arthritis ([facility]) Medication monitoring encounter 1 Occurrences starting 03/06/2025 until 03/06/2026 [facility] Comment on above: 1 Occurrences starting 03/06/2025 until 03/06/2026 End: 04-14-2026 Liver panel Liver panel Lab Routine Health care maintenance 1 Occurrences starting 04/14/2025 until 04/14/2026 [facility] Comment on above: 1 Occurrences starting 04/14/2025 until 04/14/2026 End: 05-05-2026 Liver panel Liver panel Lab Routine Iron deficiency anemia, unspecified iron deficiency anemia type Decreased appetite Hyperbilirubinemia 1 Occurrences starting 05/05/2025 until 05/05/2026 [facility] Comment on above: 1 Occurrences starting 05/05/2025 until 05/05/2026 End: 06-22-2026 Liver panel Liver panel Lab Routine Inflammatory polyarthritis ([facility]) Seronegative rheumatoid arthritis ([facility]) Medication monitoring encounter 1 Occurrences starting 06/22/2025 until 06/22/2026 [facility] Comment on above: 1 Occurrences starting 06/22/2025 until 06/22/2026 End: 04-14-2026 Luteinizing hormone Luteinizing hormone Lab Routine Health care maintenance 1 Occurrences starting 04/14/2025 until 04/14/2026 [facility] Comment on above: 1 Occurrences starting 04/14/2025 until 04/14/2026 End: 04-14-2026 Magnesium [Mass/volume] in Serum or Plasma Magnesium Lab Routine Health care maintenance 1 Occurrences starting 04/14/2025 until 04/14/2026 [facility] Comment on above: 1 Occurrences starting 04/14/2025 until 04/14/2026 End: 04-14-2026 Microalbumin - Albumin: Creatinine Urine Ratio Microalbumin - Albumin: Creatinine Urine Ratio Lab Routine Health care maintenance 1 Occurrences starting 04/14/2025 until 04/14/2026 [facility] Comment on above: 1 Occurrences starting 04/14/2025 until 04/14/2026 End: 04-14-2026 Phosphate [Mass/volume] in Serum or Plasma Phosphorus Lab Routine Health care maintenance 1 Occurrences starting 04/14/2025 until 04/14/2026 [facility] Comment on above: 1 Occurrences starting 04/14/2025 until 04/14/2026 End: 04-14-2026 POCT EKG POCT EKG ECG Routine Health care maintenance 1 Occurrences starting 04/14/2025 until 04/14/2026 [facility] Comment on above: 1 Occurrences starting 04/14/2025 until 04/14/2026 End: 04-14-2026 Progesterone Progesterone Lab Routine Health care maintenance 1 Occurrences starting 04/14/2025 until 04/14/2026 [facility] Comment on above: 1 Occurrences starting 04/14/2025 until 04/14/2026 End: 04-14-2026 Prolactin Prolactin Lab Routine Health care maintenance 1 Occurrences starting 04/14/2025 until 04/14/2026 [facility] Comment on above: 1 Occurrences starting 04/14/2025 until 04/14/2026 End: 04-14-2026 Sex hormone binding globulin Sex hormone binding globulin Lab Routine Health care maintenance 1 Occurrences starting 04/14/2025 until 04/14/[facility]: 1 Occurrences starting 04/14/2025 until 04/14/2026 End: 04-14-2026 Testosterone, Total and Free, S Testosterone, Total and Free, S Lab Routine Health care maintenance 1 Occurrences starting 04/14/2025 until 04/14/[address]26 [facility] above: 1 Occurrences starting 04/14/2025 until 04/14/2026 End: 04-14-2026 Thyrotropin [Units/volume] in Serum or Plasma TSH Lab Routine Health care maintenance 1 Occurrences starting 04/14/2025 until 04/14/[address]26 [facility] on above: 1 Occurrences starting 04/14/2025 until 04/14/2026 End: 04-14-2026 Thyroxine (T4) free [Mass/volume] in Serum or Plasma T4, free Lab Routine [facility] care maintenance 1 Occurrences starting 04/14/2025 until 04/14/[address]26 [facility] on above: 1 Occurrences starting 04/14/2025 until 04/14/2026 End: 04-14-2026 Triiodothyronine (T3) Free [Mass/volume] in Serum or Plasma T3, free Lab Routine Health care maintenance 1 Occurrences starting 04/14/2025 until 04/14/[address]26 [facility] on above: 1 Occurrences starting 04/14/2025 until 04/14/2026 End: 04-14-2026 Urate [Mass/volume] in Serum or Plasma Uric acid Lab Routine Health care maintenance 1 Occurrences starting 04/14/2025 until 04/14/[address]26 [facility] on above: 1 Occurrences starting 04/14/2025 until 04/14/2026 End: 05-03-2026 Urinalysis Urinalysis Lab Routine Dysuria Frequency of urination 1 Occurrences starting 05/03/2025 until 05/03/2026 [employer] Work Phone: Comment on above: 1 Occurrences starting 05/03/2025 until 05/03/2026 End: 04-14-2026 Vitamin D 25 hydroxy Vitamin D 25 hydroxy Lab Routine Health care maintenance 1 Occurrences starting 04/14/2025 until 04/14/2026 [facility] Comment on above: 1 Occurrences starting 04/14/2025 until 04/14/2026 Immunizations Immunization Date Immunization Notes Care Provider Mian penamiguel 11-14-2022 Covid-19, Mrna, Lnp- s, Bivalent, Pf, 30mcg/0.3 ml Jack Stubbs MD Work Phone: [facility] 11-14-2022 influenza, injectabl e, quadrivalent, preservative free Jack Stubbs MD Work Phone: [facility] 11-14-2022 influenza virus vacc ine, unspecified formulation Jack Stubbs MD Work Phone: [facility] 12-25-2021 zoster vaccine recombinant Jack Stubbs MD Work Phone: [facility] 10-24-2021 Influenza Vaccine, Quadrivalent, Adjuvanted Jack Stubbs MD Work Phone: [facility] 10-24-2021 zoster vaccine recombinant Jack Stubbs MD Work Phone: [facility] 07-25-2021 tetanus toxoid, redu doe diphtheria toxoid, and acellular pertussis vaccine, adsorbed Jack Stubbs MD Work Phone: [facility] 01-19-2021 COVID-19, mRNA, LNP- S, PF, 100mcg/0.5mL Dose Jack Stubbs MD Work Phone: [facility] 12-22-2020 COVID-19, mRNA, LNP- S, PF, 100mcg/0.5mL Dose Jack Stubbs MD Work Phone: [facility] 08-27-2020 Influenza, High-dose , Quadrivalent Jack Stubbs MD Work Phone: [facility] 03-15-2020 pneumococcal conjuga te vaccine, 13 valent Jack Stubbs MD Work Phone: [facility] 09-15-2019 influenza, injectabl e, quadrivalent, preservative free Jack Stubbs MD Work Phone: [facility] 12-23-2018 pneumococcal polysaccharide vaccine, 23 valent Jack Stubbs MD Work Phone: [facility] 09-15-2017 influenza, injectabl e, quadrivalent, contains preservative Jack Stubbs MD Work Phone: [facility] 09-15-2017 pneumococcal polysaccharide vaccine, 23 valent Jack Stubbs MD Work Phone: [facility] 08-26-2016 influenza, injectabl e, quadrivalent, contains preservative Jack Stubbs MD Work Phone: [facility] 09-28-2015 influenza, seasonal, injectable Jack Stubbs MD Work Phone: [facility] 02-09-2015 zoster vaccine, live Jack Stubbs MD Work Phone: [facility] 12-02-2013 influenza, seasonal, injectable, preservative free Jack Stubbs MD Work Phone: [facility] 01-30-2011 tetanus toxoid, redu doe diphtheria toxoid, and acellular pertussis vaccine, adsorbed Jack Stubbs MD Work Phone: [facility] Payers Date Payer Category Payer Managed Care Other (unspecified) [id number] 2023 Private Health Insurance [id number] 2019 Private Health Insurance [id number] 2016 Private Health Insurance [id number] 1950 Unknown [id number] 2.16.840.1.464062.3.579.2.175 1950 Unknown [id number] 2.16.840.1.960741.3.579.2.175 1951 Unknown [id number] 2.16.840.1.678020.3.579.2.175 1951 Unknown [id number] 2.16.840.1.002656.3.579.2.175 1951 Unknown [id number] 2.16.840.1.006454.3.579.2.175 1951 Unknown [id number] 2.16.840.1.663134.3.579.2.175 1951 Unknown [id number] 2.16.840.1.459351.3.579.2.175 1951 Unknown [id number] 2.16.840.1.873897.3.579.2.1286 1951 Unknown [id number] 2.16.840.1.184929.3.579.2.1286 1951 Unknown [id number] 2.16.840.1.188392.3.579.2.1286 1951 Unknown [id number] 2.16.840.1.110049.3.579.2.1286 1951 Unknown [id number] 2.16.840.1.526112.3.579.2.1286 1951 Unknown [id number] 2.16.840.1.123044.3.579.2.1286 1951 Unknown [id number] 2.16.840.1.397861.3.579.2.1286 1951 Unknown [id number] 2.16.840.1.150532.3.579.2.1286 1951 Unknown [id number] 2.16.840.1.042352.3.579.2.1286 1951 Unknown [id number] 2.16.840.1.695869.3.579.2.1286 1951 Unknown [id number] 2.16.840.1.308511.3.579.2.1285 1951 Unknown [id number] 2.16.840.1.973804.3.579.2.1285 1951 Unknown [id number] 2.16.840.1.182783.3.579.2.1285 1951 Unknown [id number] 2.16840.1.847713.3.579.2.1285 1951 Unknown [id number] 2.16.840.1.047256.3.579.2.1285 1951 Unknown [id number] 2.840.1.784911.3.579.2.1285 1951 Unknown [id number] 2.840.1.771612.3.579.2.1285 1951 Unknown [id number] 2.840.1.298945.3.579.2.1285 1951 Unknown [id number] 2.840.1.187965.3.579.2.1285 1951 Unknown [id number] 2.840.1.187794.3.579.2.1285 1951 Unknown [id number] 2.840.1.807206.3.579.2.1285 1951 Unknown [id number] 2.16840.1.834599.3.579.2.1285 1951 Unknown [id number] 2.16840.1.602467.3.579.2.1285 1951 Unknown [id number] 2.16.840.1.050198.3.579.2.1285 1951 Unknown [id number] 2.840.1.695604.3.579.2.1285 1951 Unknown [id number] 2.16.840.1.759189.3.579.2.1286 1951 Unknown [id number] 2.16.840.1.716588.3.579.2.1286 1951 Unknown [id number] 2.16.840.1.269768.3.579.2.128 1951 Unknown [id number] 2.16.840.1.280726.3.579.2.128 1951 Unknown [id number] 2.16.840.1.026763.3.579.2.128 1951 Unknown [id number] 2.16.840.1.804382.3.579.2.1285 1951 Unknown [id number] 2.16840.1.173153.3.579.2.1285 1951 Unknown [id number] 2.16840.1.679358.3.579.2.128 1951 Unknown [id number] 2.16.840.1.002009.3.579.2.128 1951 Unknown [id number] 2.16.840.1.045834.3.579.2.128 1951 Unknown [id number] 2.16.840.1.514828.3.579.2.1285 1951 Unknown [id number] 2.16.840.1.634321.3.579.2.128 1951 Unknown [id number] 2.16.840.1.545487.3.579.2.128 1951 Unknown [id number] 2.16.840.1.722203.3.579.2.128 1951 Unknown [id number] 2.16.840.1.252422.3.579.2.128 1951 Unknown [id number] 2.16.840.1.824712.3.579.2.1286 1951 Unknown [id number] 2.16.840.1.669702.3.579.2.1286 1951 Unknown [id number] 2.16.840.1.966292.3.579.2.1286 1951 Unknown [id number] 2.16.840.1.161703.3.579.2.1286 1951 Unknown [id number] 2.16.840.1.129774.3.579.2.1286 1951 Unknown [id number] 2.16.840.1.467826.3.579.2.1286 1951 Unknown [id number] 2.16.840.1.637677.3.579.2.1286 Social History Date Type Detail Facility Start: [facility]02-2024 [facility] End: 11-09-2017 History of tobacco use Current smoker [facility] End: 11-09-2017 History of tobacco use Cigarette Smoker [facility] Start: 03-02-2024 Tobacco use and exposure Smokeless tobacco non-user [facility] Start: 11-04-2024 End: 06-22-2025 Alcoholic beverage intake Current drinker of alcohol (finding) [facility] Start: 11-20-2020 End: 11-04-2024 Alcoholic beverage intake [facility] Start: 11-20-2020 End: 10-20-2024 Tobacco use panel [facility] Adolescent depressio n screening assessment 0 [facility] Start: 07-18-2021 Alcohol Comment daily [facility] Start: 1950 Sex assigned at Not on file B ON [facility] Start: 06-12-2015 Sex Female (finding) [facility] Goals Date Patient Goal Desired Activity /State Personal health goal Comment on above: Formatting of this n ote might be different from the original. Evaluation of progress towards goal: Discharge home with & [facility] Clinical Notes 07-13-2024 to 07-04-2025 Telephone Encounter - Genia Uribe - 07/04/2025 11:10 AM EDTTelephone Encounter - Trice Silva MD - 07/04/2025 11:10 AM EDTTelephone Encounter - Genia Uribe - 07/04/2025 11:10 AM EDT Note Date & Type Note Facility 07-04-2025 Miscellaneous Notes Is it the same exact movement in [...] clear and COVID test was negative. hospital stays? No Current New urinary frequency, urgency, pain with [...] patient is taking 1 tab in AM Can you try to find her a closer follow up to discuss these changes? OK to use DBS slot. I have attempted to contact this patient by phone with the following results: left detailed message to return my call on voicemail to schedule a follow-up with Dr. Silva for 07/05/2025 at 14:00 or 07/06/2025 at 15:30. [facility] Telephone encounter Note Is it the same exact movement in [...] clear and COVID test was negative. hospital stays? No Current New urinary frequency, urgency, pain with [...] patient is taking 1 tab in AM [facility] 07-04-2025 Telephone encounter Note Can you try to find her a closer follow up to discuss these changes? OK to use DBS slot. [facility] 07-04-2025 Telephone encounter Note I have attempted to contact this patient by phone with the following results: left detailed message to return my call on [employer] to schedule a follow-up with Dr. Silva for 07/05/2025 at 14:00 or 07/06/2025 at 15:30. [facility] 07-03-2025 Miscellaneous Notes Patient called in asking if Dr. Clemente could change medication from Methotrexate. [place] states patient is in a lot of pain from having Parkinson's. [place] states he just want his to get some relief I was able to call and talk to the patient's and the patient herself. It seems that she has had a continued increase in generalized diffuse pain. [...] with her pain symptoms ahead of her procedural visits with PM&R. I have messaged Dr. Silva directly through [employer] secure chat and we will update the patient's accordingly after our discussion. Mariajose Clemente MD, MPH documented in this encounter [facility] 07-03-2025 Telephone encounter Note Patient called in asking if Dr. Clemente could change medication from Methotrexate. [place] states patient is in a lot of pain from having Parkinson's. [place] states he just want his to get some relief [facility] 07-03-2025 Telephone encounter Note I was able to call and talk to the patient's and the patient herself. It seems that she has had a continued increase in generalized diffuse pain. [...] with her pain symptoms ahead of her procedural visits with PM&R. I have messaged Dr. Silva directly through [employer] secure chat and we will update the patient's accordingly after our discussion. Mariajose Clemente MD, MPH [facility] 07-03-2025 History of Present illness Narrative . Ines Uribe PA-C 07/03/25804 documented in this encounter [facility] 06-30-2025 Miscellaneous Notes Medication Refill request: Medication Name and Strength:amantadine (SYMMETREL) 100 mg tablet Current dose & Frequency: actuTake 1-2 tabs at 6am and 1 tab at 12pm PO. ally taking - not what is listed on the prescription label 30 day or 90 day supply preferred: Pharmacy Name: [facility] [address] [place] [address] [id number] [id number] [address], [facility] [id number] Request was made by:Patient - patient stated that pharmacy do not have script to fill medication Quick Print Operator spoke with pharmacist at [facility] and was told that they did not have prescription that was written on 06/20/2025 on file. Quick Print Operator gave verbal order for medication to avoid a delay in treatment. 90 day supply with 3 + refills. documented in this encounter [facility] 06-30-2025 Telephone encounter Note Medication Refill request: Medication Name and Strength:amantadine (SYMMETREL) 100 mg tablet Current dose & Frequency: actuTake 1-2 tabs at 6am and 1 tab at 12pm PO. ally taking - not what is listed on the prescription label 30 day or 90 day supply preferred: Pharmacy Name: [facility] [address] [place] [id number] [address] [id number] [address], [facility] [id number] Request was made by:Patient - patient stated that pharmacy do not have script to fill medication [facility] 06-30-2025 Telephone encounter Note Quick Print Operator spoke with pharmacist at [facility] and was told that they did not have prescription that was written on 06/20/2025 on file. Quick Print Operator gave verbal order for medication to avoid a delay in treatment. 90 day supply with 3 + refills. [facility] 06-29-2025 Miscellaneous Notes Patient called stating she is having terrible dysphagia. Patient got a fluoroscopy swallow study yesterday and it was normal. Patient wants EGD with dilation. Patient has not been seen since 04/2024. Scheduled appointment on 10/13 with Ines. Will leave for Ines to review upon her return. If she is unable to tolerate any oral intake, I would like her to present to [facility] ER. Take your time when eating, chew food well, alternate bite of solid with liquid and stick with softer food until procedure. If you develop any feeling of food getting stuck that does not dislodge +/- unable to tolerate oral secretions, recommend evaluation in ER. Prior fluoroscopy swallow also showed prominent bone spurs which could be contributing to her dysphagia. Have her continue her Protonix 40 mg daily, 20-30 minutes prior to breakfast at this time. Staff, please verify that there has been no medical changes over the past year since patient was last seen in the medications are up-to-date in our system. Additionally verify that she did have some improvement in her trouble swallowing after dilation last summer. Dr. Russell: Are you okay with EGD for dilation with office visit to follow? Next available office visit with me is in October which patient is already scheduled for. Thank you. I reviewed previous results. There was no identifiable stricture and post-dilation inspection showed no mucosal disruption. This would suggest that her swallowing problem may well be due to something other than esophageal stricture. You can put her in for an office visit with me, okay to use a 10:45 a.m. spot. Called and left a detailed VMM for patient with my call back number. Also sent a [employer] message. documented in this encounter [facility] 06-29-2025 Telephone encounter Note Patient called stating she is having terrible dysphagia. Patient got a fluoroscopy swallow study yesterday and it was normal. Patient wants EGD with dilation. Patient has not been seen since 04/2024. Scheduled appointment on 10/13 with Ines. [facility] 06-29-2025 Telephone encounter Note Will leave for Ines to review upon her return. If she is unable to tolerate any oral intake, I would like her to present to [facility] ER. Take your time when eating, chew food well, alternate bite of solid with liquid and stick with softer food until procedure. If you develop any feeling of food getting stuck that does not dislodge +/- unable to tolerate oral secretions, recommend evaluation in ER. Prior fluoroscopy swallow also showed prominent bone spurs which could be contributing to her dysphagia. Have her continue her Protonix 40 mg daily, 20-30 minutes prior to breakfast at this time. [facility] Work Phone: 06-29-2025 Telephone encounter Note Staff, please verify that there has been no medical changes over the past year since patient was last seen in the medications are up-to-date in our system. Additionally verify that she did have some improvement in her trouble swallowing after dilation last summer. Dr. Russell: Are you okay with EGD for dilation with office visit to follow? Next available office visit with me is in October which patient is already scheduled for. Thank you. [facility] Work Phone: 06-29-2025 Telephone encounter Note I reviewed previous results. There was no identifiable stricture and post-dilation inspection showed no mucosal disruption. This would suggest that her swallowing problem may well be due to something other than esophageal stricture. You can put her in for an office visit with me, okay to use a 10:45 a.m. spot. [facility] 06-29-2025 Telephone encounter Note Called and left a detailed VMM for patient with my call back number. Also sent a [employer] message. [facility] 06-29-2025 Miscellaneous Notes Patient had a visit 04/25/2025 with Ofelia, per notes patient will call if ready for injections, patient's daughter called informed that mom is indeed ready, can an order please be placed? Thanks! Order placed. Please call to schedule. Thank you! Previous Evaluation and Treatment Diagnostics: MRI Cervical 12/2024 Medications tried: OTC, NSAIDS, Muscle Relaxants, and Narcotics Home Exercise Program: Guided by physician Physical Therapy: daily hep and stretches Research Nurse: No Pain Management: Injections & Medication Prior Surgery: None Pain Score: 9/10 No blood thinner No cardiac device Not diabetic Iodine Allergies: Iodinated Contrast Media Left patient a voicemail to return call to schedule repeat BL C3-[address]I injection [address]. Woodall, and 3 month follow-up with Ofelia Pierce NP. *separate into 2 appointments documented in this encounter [facility] 06-29-2025 Telephone encounter Note Patient had a visit 04/25/2025 with Ofelia, og notes patient will call if ready for injections, patient's daughter called informed that mom is indeed ready, can an order please be placed? Thanks! [facility] 06-29-2025 Telephone encounter Note Order placed. Please call to schedule. Thank you! Previous Evaluation and Treatment Diagnostics: MRI Cervical 12/2024 Medications tried: OTC, NSAIDS, Muscle Relaxants, and Narcotics Home Exercise Program: Guided by physician Physical Therapy: daily hep and stretches Research Nurse: No Pain Management: Injections & Medication Prior Surgery: None Pain Score: 9/10 No blood thinner No cardiac device Not diabetic Iodine Allergies: Iodinated Contrast Media [facility] 06-29-2025 Telephone encounter Note Left patient a voicemail to return call to schedule repeat BL C3-[address] Cervical TFESI injection with Dr. Woodall, and 3 month follow-up with Ofelia Pierce NP. *separate into 2 appointments [facility] 06-22-2025 History of Present illness Narrative Images from the original note were not included. ADULT RHEUMATOLOGY CLINIC NOTE [id number] [id number] Patient Name: Beena Diaz Subjective Reason for Rheumatology Consultation: fibromyalgia, raynaud's, positive anti-cardiolipin, polyarthritis History of Present Illness: Beena Diaz is a 74 y.o. female who presents as a referral from her PCP for concern of possible inflammatory arthritis. The patient presents to her appointment accompanied by her . She explains that about 5-6 years ago she began to have the insidious onset of hand pain and swelling that involved the right hand and eventually wrist. Over the course of several months to a year she then developed similar symptoms in the left hand and wrist. 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 She also notices discomfort in the bilateral feet as well as the ankles. The patient explains that she was evaluated in the [facility] Rheumatology office for concern of possible inflammatory arthritis. During her time in their office she underwent testing and eventually was give a trial of steroids. The patient notes that the steroid side effects were intolerable and she likely stopped them after a few days or at most one week. The patient does not recall if the steroids significantly helped her arthritis symptoms, but we do note that she was not on them for very long. The patient did not try any other DMARD medications. The patient does also have a history of parkinson's and is following with Neurology (Dr. Silva). She is on several medications directed at parkinson's. She notes prior issue with tendon ruptures in multiple different extremities which was thought to be potentially related to one of her parkinson's medications (possibly azilect?) and she had the dose of this medication reduced and has not had any further ruptures. The patient does not have a history of bowel disease, or inflammatory eye disease. Of note, the patient does have a history of RP but does not endorse digital ulcers. 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 Family Hx: -noncontributory Interval History: The patient presents to the office for a follow up visit. She is accompanied by her daughter today. She is somewhat tearful and upset due to her recent limitations regarding driving independently. She feels as though she is a burden to her family and wants some of her independence back. She is presently on 8 pills of MTX weekly along with daily 1 mg folic acid. She does continue to have swelling and discomfort in the small joints of her hands bilaterally. She notes a significant increase in her upper back and neck muscle pain. She notes that her last appointment in the PM&R office she declined trigger point injections because she was feeling quite well. But she does feel that she needs them again at this time. Review of Systems: CONSTITUTIONAL: Admits: [] Weight Loss [] Fever [] Frequent Night Sweats OPHTHALMOLOGIC: Admits: [] Glaucoma [] History or Current Inflammatory Eye Disease [] Cataracts ENT: Admits: [] Oral/Nasal Ulcers [] epistaxis [] Recurrent Sinusitis [] Dry Eyes [] Dry mouth CARDIOVASCULAR: Admits: [] Chest pain [] Pericarditis/Pleuritis [] Palpitations [] Edema RESPIRATORY: Admits: [] hemoptysis [] Dyspnea on Exertion [] Cough [] Wheezing GASTROINTESTINAL: Admits: [] Bloody Stool [] Diarrhea [] Vomitting GENITOURINARY: Admits: [] Blood in urine [] Genital Ulcers [] Burning/pain with urination MUSCULOSKELETAL: Admits: [x] Muscle Pain [x] Joint Pain INTEGUMENTARY: Admits: [] Skin changes [] Sclerodactyly [] Raynauds [] Photosensitivity [] Alopecia NEUROLOGIC: Admits: [] Recurrent Headaches [] Limb Weakness [] Numbness/Tingling PSYCHIATRIC: Admits: [] Insomnia [] Depression [] Anxiety ENDOCRINE: Admits: [] Thyroid abnormalities HEMATOLOGY/LYMPH: Admits: [] Notable Swollen Lymph Nodes [] History of Cytopenias [] Bruising tendency [] History of DVT/PE All non checked boxes, patient denies. All other 10 point ROS reviewed and negative. Current Outpatient Medications Medication Sig Dispense Refill amantadine (SYMMETREL) 100 mg tablet Take 1-2 tabs at 6am and 1 tab at 12pm PO. 270 tablet 3 ammonium lactate (AMLACTIN) 12 % cream Apply 1 Application topically as needed. calcium citrate-vitamin D2 250 mg-2.5 mcg (100 unit) per tablet Take 1 tablet by mouth in the morning and 1 tablet before bedtime. carbidopa-levodopa (SINEMET CR) 25-100 mg per CR tablet Take 2 tabs 6am, 1 tab 1130am, 2 tabs 5pm, and 1 tab 11pm PO 540 tablet 3 clonazePAM (KlonoPIN) 0.5 mg tablet Take 3 tablets at bedtime 270 tablet 1 eszopiclone (LUNESTA) 2 mg tablet Take 1 tablet (2 mg total) by mouth nightly. Take immediately before bedtime 90 tablet 1 folic acid (FOLVITE) 1 mg tablet Take 1 tablet (1 mg total) by mouth in the morning. 90 tablet 3 furosemide (LASIX) 20 mg tablet Take 1 tablet (20 mg total) by mouth daily. (Patient not taking: Reported on 05/17/2025) losartan (COZAAR) 25 mg tablet TAKE 1 TABLET BY MOUTH IN THE MORNING 90 tablet 3 pantoprazole (PROTONIX) 40 mg EC tablet TAKE 1 TABLET BY MOUTH IN THE MORNING 30 tablet 11 pramipexole (MIRAPEX) 0.25 mg tablet TAKE 1 TABLET BY MOUTH 3 TIMES DAILY 270 tablet 3 rasagiline (AZILECT) 1 mg tablet Take 1 tablet (1 mg total) by mouth every morning. 90 tablet 3 simvastatin (ZOCOR) 40 mg tablet TAKE 1 TABLET BY MOUTH AT NIGHT 90 tablet 1 tiZANidine (ZANAFLEX) 4 mg capsule TAKE 1 CAPSULE BY MOUTH AT NIGHT 30 capsule 0 No current facility-administered medications for this visit. reviewed. Patient Active Problem List Diagnosis Chronic bilateral low back pain without sciatica Swelling of right hand Menopause Decreased body height Parkinson's disease ([facility]) Hypertension Mixed hyperlipidemia Lumbar degenerative disc disease Osteoarthritis of facet joint of lumbar spine COPD (chronic obstructive pulmonary disease) ([facility]) Tear of right hamstring Right rotator cuff tear arthropathy Livedo reticularis Oral lesion Chronic heart failure with preserved ejection fraction ([facility]) Vasovagal episode Nonrheumatic mitral valve regurgitation Chronic pain syndrome Neck pain, chronic Cervical radiculopathy reviewed. Past Surgical History: Procedure Laterality Date AUGMENTATION MAMMAPLASTY 11/09/2018 silicone COLONOSCOPY 10/20/2015 Rept 10 yrs ESOPHAGOGASTRODUODENOSCOPY with biopsies and dilatioin N/A 05/24/2024 Performed by Colleen Russell MD at [facility] OTHER SURGICAL HISTORY spinal pain shot reviewed. Social History Tobacco Use Smoking status: Former Current packs/day: 0.00 Types: Cigarettes Quit date: 2018 Years since quittin.6 Smokeless tobacco: Never Vaping Use Vaping status: Never Used Substance Use Topics Alcohol use: Yes Alcohol/week: 7.0 standard drinks of alcohol Types: 7 Glasses of wine per week Comment: daily Drug use: No Comment: THC gummies reviewed. Past Medical History: Diagnosis Date Acute on chronic heart failure with preserved ejection fraction ([facility]) 02/20/2022 Anxiety Arthritis Asthma Cellulitis of left lower extremity 02/19/2022 COPD (chronic obstructive pulmonary disease) ([facility]) 03/14/2019 Dyslipidemia Esophageal dysphagia 2023 Heart murmur Hypertension Low back pain Open wound of left lower leg 01/20/2022 Parkinson's disease Sepsis due to Staphylococcus aureus ([facility]) 01/17/2022 Tear of right hamstring 07/03/2020 Visual impairment glasses reviewed. Social History Social History Narrative Not on file reviewed Family History Problem Relation Age of Onset Diabetes Father Heart disease Father CABG at age 65 Colon cancer Neg Hx Anesthesia problems Neg Hx reviewed. Allergies Allergen Reactions Iodinated Contrast Media Itching reviewed. The following portions of the patient's history were reviewed and updated as appropriate: allergies, current medications, past family history, past medical history, past social history, past surgical history and problem list. The following portions of the patient's history were reviewed and updated as appropriate: allergies, current medications, past family history, past medical history, past social history, past surgical history and problem list. Objective Physical Exam: BP 136/78 Pulse 81 Resp 16 Ht 157.5 cm (5' 2 ) Wt 42.6 kg (94 lb) BMI 17.19 kg/m : reviewed GEN: AOx3, NAD EYES: Clear lenses, sclerae white, conjunctiva pink. ENT: External ears normal. Nares and nasal mucosa normal. Normal oral aperture. No oropharyngeal lesions. NECK: supple, no LAD. LUNGS: CTAB. HEART: Regular rhythm, normal S1/S2, no M/R/G. ABD: Soft, non-distended, non-tender. VASC: Ext warm, peripheral pulses 2+, no edema. MSK: Evaluated the large and small joints of the upper and lower extremities including the bilateral shoulders, elbows, wrists, hands, knees, ankles, and feet. Unless otherwise stated below, joints were without deformity, impairment in ROM, warmth, or tenderness to palpation. Pertinent MSK Findings: The patient does have ongoing mild synovitis and tenderness to the bilateral MCPs in the hands. There does seem to be some improvement from initial evaluation however. She also has significant discomfort to palpation of the radial aspect of the right wrist. She has some synovitis of the right wrist. She has limited flexion and extension of the wrists bilaterally. She has difficulty in making a closed fist. She has significant swelling of the bilateral 5th PIPs as well (left worse than right). The bilateral knees are without significant effusion. The right ankle has some mild effusion along with tenderness. She has discomfort to palpation of the cervical paraspinal muscles and the lateral neck bilaterally. Palpation of the cervical spine did not produce tenderness. INTEGUMENT: Skin, nails, and hair normal unless otherwise stated below. NEURO: Alert. Sensation intact to soft touch. Normal muscle bulk and strength in trunk and limbs. ROSARIO-28 (If Applicable) There is currently no information documented on the homunculus. Go to the Rheumatology activity and complete the homunculus joint exam. ROSARIO-28 (CRP): -- ROSARIO-28 (ESR): -- Tender (ROSARIO-28): -- Swollen (ROSARIO-28): -- Labs and Imaging: reviewed and discussed with the patient during the visit. General Labs: Lab Results Component Value Date WBC 5.9 06/08/2025 HGB 12.7 06/08/2025 HCT 39.0 06/08/2025 MCV 93 06/08/2025 PLT 270 06/08/2025 Lab Results Component Value Date CREATININE 0.60 06/08/2025 BUN 20 06/08/2025 K 4.9 06/08/2025 CL 100 06/08/2025 CO2 32 06/08/2025 Lab Results Component Value Date ALT 7 06/08/2025 AST 25 06/08/2025 ALKPHOS 87 06/08/2025 Inflammatory Markers Lab Results Component Value Date CRP <0.1 06/08/2025 RA-related Auto-Ab's No results found for: RF PJ & related Labs Lab Results Component Value Date PJ Negative 01/18/2022 ANTIRNP 0.2 11/29/2024 Scleroderma-related Auto-Ab's Lab Results Component Value Date SCL70 <0.2 11/29/2024 JO1 <0.2 11/29/2024 Myositis-related Auto-Ab's Lab Results Component Value Date JO1 <0.2 11/29/2024 APLS-related Auto-Ab's No results found for: DRVVT Vasculitis-related Auto-Ab's No results found for: MYELOPEROXID Imaging / Special Studies Reviewed in EMR. Assessment / Recommendations 1. Inflammatory polyarthritis (CMS-HCC) 2. Seronegative rheumatoid arthritis (CMS-HCC) 3. Primary osteoarthritis involving multiple joints 4. Chronic bilateral low back pain without sciatica 5. Medication monitoring encounter 6. Neck pain 7. Muscle tension pain Overall Impression: Beena Diaz is a 74 y.o. female patient with a several year history of polyarthritis most notably in the bilateral hands and wrists but also affecting her ankles and feet. Based on the patient's initial history, ROS, and exam, I had concern for possible inflammatory arthritis. We pursued additional serological testing and requested her outside records. We noted that her ESR was elevated but other autoimmune serologies were wnl. Given her intolerance to oral steroids and her ongoing evidence of active synovitis and joint pain/tenderness in the small joints of the hands and feet, we proceeded with initiation of MTX at her last visit. She has noted some minor improvement of hand arthritis. But more notably she has had significant discomfort in the neck and upper back. We will continue to slowly increase MTX at this time. She is working with PM&R to help manage her cervical spine and neck issues. Recommendations: Labs, Imaging, Special Studies: Orders Placed This Encounter Procedures X-ray spine lumbar 2 or 3 views Standing Status: Future Number of Occurrences: 1 Expected Date: 06/22/2025 Expiration Date: 06/22/2026 Reason for Exam:: Evaluate for osteoarthritis or inflammatory arthritis, patient has chronic back pain Release to patient via BU[employer] Network[employer]?: Immediate [1] C-reactive protein Standing Status: Future Expiration Date: 06/22/2026 Release to patient via [employer]?: Immediate [1] Erythrocyte Sedimentation Rate (ESR) Standing Status: Future Expiration Date: 06/22/2026 Release to patient via [employer]?: Immediate [1] Liver panel Standing Status: Future Expiration Date: 06/22/2026 Release to patient via [employer]?: Immediate [1] CBC auto differential Standing Status: Future Expiration Date: 06/22/2026 Release to patient via [employer]?: Immediate [1] Creatinine includes GFR, serum Standing Status: Future Expiration Date: 06/22/2026 Release to patient via [employer]?: Immediate [1] -we will proceed with med monitoring labs every 3 months --- reviewed most recent set of labs and they were within normal limits Treatment Plan: -increase MTX to 9 pills weekly -continue 1 mg daily folic acid -will communicate with PM&R providers regarding trigger point injections given worsening muscle pain in upper back and neck Consults/Referrals: -No new referrals at this time Health Maintenance: -The patient should continue to follow with their PCP for age and risk factor appropriate cancer screening and immunizations. Follow-up: -3 months Mariajose Clemente MD, MPH [facility] [address] [place] [address] Total [id number] time was 45 minutes with more than 50% of the visit spent counseling and discussing diagnostic or treatment recommendations, prognosis, risks and benefits of management options, instructions, compliance or risk-factor reduction. This note was created with the assistance of a speech recognition program. While intending to generate a timely document that accurately reflects the content of the visit, no guarantee can be provided that every grammatical or spelling mistake has been or will be identified or corrected. Thank you for your understanding. documented in this encounter [facility] 06-22-2025 Instructions Maraijose Clemente MD MPH - 06/22/2025 12:00 PM EDT -Please increase your methotrexate to 9 pills once weekly. You can split the dosing to take 5 pills in the AM and 4 pills in the afternoon or evening on the day of the week that you take the medication. This will help with absorption of the medication. -Continue taking 1 mg daily folic acid -Plan to do labs 1-2 weeks ahead of your next appointment. Orders are already in your chart. -I will reach out to the PM&R/Pain Management office to see if we can get you in for a sooner appointment for trigger point injections with Ofelia documented in this encounter [facility] 06-19-2025 Miscellaneous Notes Medication Refill request: Medication Name and Strength: amantadine (SYMMETREL) 100 mg tablet Current dose & Frequency: Take 1-2 tabs at 6am and 1 tab at 12pm PO. 30 day or 90 day supply preferred: 30 Pharmacy Name: [facility] [address] [place] [address] - Request was made by: Patient Refill request : amantadine (SYMMETREL) 100 mg tablet Last Filled : 01/26/2025 Last OV : 05/17/2025 Next OV : 08/01/2025 Reviewed by PERSONNEL PSYCHOLOGIST. Pend for signature. documented in this encounter [facility] 06-19-2025 Telephone encounter Note Medication Refill request: Medication Name and Strength: amantadine (SYMMETREL) 100 mg tablet Current dose & Frequency: Take 1-2 tabs at 6am and 1 tab at 12pm PO. 30 day or 90 day supply preferred: 30 Pharmacy Name: [facility] [address] [place] [address] - Request was made by: Patient [facility] 06-19-2025 Telephone encounter Note Refill request : amantadine (SYMMETREL) 100 mg tablet Last Filled : 01/26/2025 Last OV : 05/17/2025 Next OV : 08/01/2025 Reviewed by PERSONNEL PSYCHOLOGIST. Pend for signature. [facility] 05-31-2025 Miscellaneous Notes Patient called and asked if Dr. Silva would be okay with her doing her Physical Therapy and Speech Therapy [facility] in [place] instead of [facility] because it is closer to her so she will not have to travel so far. If this is okay she asked to have her referral faxed to [phone]. Patient can be reached back at [phone] Yes that is fine, please fax orders from 05/17 as she requested Quick Print Operator has faxed orders from 05/17 to [facility] documented in this encounter [facility] 05-31-2025 Telephone encounter Note Patient called and asked if Dr. Silva would be okay with her doing her Physical Therapy and Speech Therapy [facility] in [place] instead of [facility] because it is closer to her so she will not have to travel so far. If this is okay she asked to have her referral faxed to [phone]. Patient can be reached back at [phone] [facility] 05-31-2025 Telephone encounter Note Yes that is fine, please fax orders from 05/17 as she requested [facility] 05-31-2025 Telephone encounter Note Quick Print Operator has faxed orders from 05/17 to [facility] 05-17-2025 History of Present illness Narrative Summary: Progress Note Images from the original note were not included. [address] [facility] [id number] Patient: Beena Diaz Date of : 1950 Encounter Date: 05/17/2025 Patient Care Team: Brenden Caba APRN-JONEL as PCP - General Lilia Cortez MD as Consulting Physician (Dermatology) Trice Silva MD as Referring Physician (Neurology) Noreen Butler MD as Referring Physician (Anesthesiology) Cee Malcolm MD as Consulting Physician (Cardiology) Trice Silva MD as Referring Physician (Neurology) History of Present Illness: Beena Diaz is a 74 year old female seen for follow up of Parkinson's disease. Her last visit was in January 2025. She is accompanied by her today. The patient reports that since her last visit, she has noticed an increase in dyskinesia, weight loss, and cognitive impairment. She switched from Sinemet to Crexont, at which time these symptoms presented and worsened. At this time Crexont was discontinued and Sinemet was resumed, and patient reports mild improvement of cognitive function and dyskinesia following this change. The patient has also reported approximately 20 lb weight loss and overall worsening of condition since her last visit, and she received an infusion of dextrose which seemed to improve symptoms. Patient reports decreased appetite, feeling of fullness after little food intake, and choking with solids and liquids with most meals. She still uses nightly WOW videos and endorses these have been beneficial to her gait and balance. The remainder of her Parkinson symptoms have been relatively stable after resuming Sinemet. She reports improved sleep quality with CBD gummies and lunesta. She continues to take amantidine and clonazepam, and does not believe recently worsening symptoms are associated with these medications. We discussed starting a Vyalev pump to reduce off time throughout the day, to which the patient was receptive and is taking home materials to consider switching in the near future. She is also aware of the possibility of deep brain stimulation as therapy, but prefers trying the Vyalev pump before making that step. Onset of symptoms: 15-20 years ago with lower extremity tremors. Diagnosis: Parkinson's disease. Tremor: denies, says she had them previously but they have improved Gait: consistent with previous visits, reports that she is using wow videos 4-5 weeks ago and endorses they have been helping. Falls: increasing number of falls recently, using a walker to decrease risk of traumatic fall Bradykinesia: reports slowing of her hands Freezing: occurs about once a day, doesn't know whether its associated with medication timing On/off: yes, most commonly just before taking another dose of Sinemet Dyskinesias: Worsening, sway and bobs head while standing still. Worsened when taking Crexont Voice: progressively quieter voice Swallowing: Choking with both solids and large volume liquids with nearly every meal. Denies any freezing of tongue or vocal cords. Mood: Stable stress and anxiety that tends to worsen symptoms. She has not been diagnosed previously and never on medication in the past; does not want any meds. Impulsive behaviors: increased shopping has been stable for now Hallucinations: Previous hallucinations have resolved Memory: Reports improved short term memory since last visit Sleep: Good sleep quality with CBD gummies and lunesta. Lightheadedness: Denies any lightheadedness Bladder: Denies complications Constipation: Denies constipation or bloating, passing hard stool every 1-2 days. Drooling: Minimal drooling throughout the day ADL: Intact IADL: Intact Driving: Has not driven in the last 3-4 months and is waiting for symptomatic improvement before resuming driving. Current medication regimen: Sinemet CR (2 tabs at 6AM, 1 tab at 1130am-12, 2 tabs at 5PM, 1 tab at 11pm); sinemet 1 tab PRN -has only used 4-5 times since prescribed, Azilect 1mg daily; Amantadine 100-200mg in the morning (6:30 am) and 100mg in the afternoon (12 pm); Pramipexole 0.25mg/0.25mg/0.25mg; Klonopin 0.5mg afternoon and 1-1.5mg tabs HS; lunesta 2mg HS Past medications tried: Rytary--severe hallucinations- but due to taking incorrect doses, Crexont - nausea/anorexia/hallucinations, ambien, trazodone Last physical/speech therapy: PT summer 2020 and patient states it did not help. Patient agreeable to follow up with PT/Speech therapy for dysphagia. Exercise: states she is very physically active, spends time outside and does nightly Wow exercises Previous evaluation: none Allergies: Iodinated contrast media Review of Relevant Patient Questionnaires: PHQ-9: 05/17/2025 10:34 AM 01/26/2025 10:32 AM 08/09/2024 7:00 AM 03/02/2024 11:33 AM 10/28/2023 11:37 AM 07/22/2023 11:43 AM 01/21/2023 12:04 PM PM AMB PHQ 9 Little interest or pleasure in doing things 0 0 0 0 0 0 1 Feeling down, depressed, or hopeless 0 0 0 0 3 0 1 Trouble falling or staying asleep, or sleeping too much 0 3 0 2 Feeling tired or having little energy 0 0 0 0 Poor appetite or overeating 0 3 0 0 Feeling bad about yourself - or that you are a failure or have let yourself or your family down 0 3 0 1 Trouble concentrating on things, such as reading the newspaper or watching television 0 0 0 0 Moving or speaking so slowly that other people could have noticed. Or the opposite - being so fidgety or restless that you have been moving around a lot more than usual 0 0 0 0 Thoughts that you would be better off , or of hurting yourself in some way 0 0 0 0 Total Score 0 0 0 0 12 0 5 If you checked off any problems, how difficult have these problems made it for you to do your work, take care of things at home, or get along with other people? Not difficult at all Not difficult at all Not difficult at all ZORAIDA-7: 10/28/2023 11:00 AM 07/22/2023 11:00 AM 01/21/2023 12:00 PM 07/23/2022 11:00 AM 03/10/2022 10:00 AM PM AMB ZORAIDA 7 Feeling nervous, anxious or on edge 3 2 2 1 0 Not being able to stop or control worrying 3 2 2 1 0 Worrying too much about different things 3 2 2 1 1 Trouble relaxing 3 3 3 3 1 Being so restless that it is hard to sit still 3 3 3 2 0 Becoming easily annoyed or irritable 3 3 3 2 1 Feeling afraid as if something awful might happen 0 3 3 2 1 ZORAIDA-7 Total Score 18 18 18 12 4 Past Medical, Family, Surgical, and Social History Update: The following portions of the patient's history were reviewed and updated as appropriate: allergies, current medications, past family history, past medical history, past social history, past surgical history and problem list. Past Medical History: Diagnosis Date Acute on chronic heart failure with preserved ejection fraction ([facility]) 02/20/2022 Anxiety Arthritis Asthma Cellulitis of left lower extremity 02/19/2022 COPD (chronic obstructive pulmonary disease) ([facility]) 03/14/2019 Dyslipidemia Esophageal dysphagia 2023 Heart murmur Hypertension Low back pain Open wound of left lower leg 01/20/2022 Parkinson's disease Sepsis due to Staphylococcus aureus ([facility]) 01/17/2022 Tear of right hamstring 07/03/2020 Visual impairment glasses Family History Problem Relation Age of Onset Diabetes Father Heart disease Father CABG at age 65 Colon cancer Neg Hx Anesthesia problems Neg Hx Past Surgical History: Procedure Laterality Date AUGMENTATION MAMMAPLASTY 11/09/2018 silicone COLONOSCOPY 10/20/2015 Rept 10 yrs ESOPHAGOGASTRODUODENOSCOPY with biopsies and dilatioin N/A 05/24/2024 Performed by Colleen Russell MD at [facility] OTHER SURGICAL HISTORY spinal pain shot Current Outpatient Medications Medication Sig Dispense Refill amantadine (SYMMETREL) 100 mg tablet Take 1-2 tabs at 6am and 1 tab at 12pm PO. 270 tablet 3 ammonium lactate (AMLACTIN) 12 % cream Apply 1 Application topically as needed. calcium citrate-vitamin D2 250 mg-2.5 mcg (100 unit) per tablet Take 1 tablet by mouth in the morning and 1 tablet before bedtime. carbidopa-levodopa (SINEMET CR) 25-100 mg per CR tablet Take 2 tabs 6am, 1 tab 1130am, 2 tabs 5pm, and 1 tab 11pm PO 540 tablet 3 clonazePAM (KlonoPIN) 0.5 mg tablet Take 3 tablets at bedtime 270 tablet 1 eszopiclone (LUNESTA) 2 mg tablet Take 1 tablet (2 mg total) by mouth nightly. Take immediately before bedtime 90 tablet 1 folic acid (FOLVITE) 1 mg tablet Take 1 tablet (1 mg total) by mouth in the morning. 90 tablet 3 losartan (COZAAR) 25 mg tablet TAKE 1 TABLET BY MOUTH IN THE MORNING 90 tablet 3 methotrexate 2.5 mg chemo tablet Take 8 tablets by mouth once a week 96 tablet 0 pantoprazole (PROTONIX) 40 mg EC tablet Take 1 tablet (40 mg total) by mouth in the morning. 30 tablet 11 pramipexole (MIRAPEX) 0.25 mg tablet TAKE 1 TABLET BY MOUTH 3 TIMES DAILY 270 tablet 3 rasagiline (AZILECT) 1 mg tablet Take 1 tablet (1 mg total) by mouth every morning. 90 tablet 3 simvastatin (ZOCOR) 40 mg tablet TAKE 1 TABLET BY MOUTH AT NIGHT 90 tablet 1 furosemide (LASIX) 20 mg tablet Take 1 tablet (20 mg total) by mouth daily. (Patient not taking: Reported on 05/17/2025) No current facility-administered medications for this visit. (All medications reviewed and updated by provider since last office visit or hospitalization) Tobacco History: Social History Tobacco Use Smoking Status Former Current packs/day: 0.00 Types: Cigarettes Quit date: 2017 Years since quittin.5 Smokeless Tobacco Never (If patient a smoker, smoking cessation counseling offered) Social History: Social History Substance and Sexual Activity Alcohol Use Yes Alcohol/week: 7.0 standard drinks of alcohol Types: 7 Glasses of wine per week Comment: daily Review of Systems: Review of Systems Constitutional: Positive for unexpected weight change. HENT: Positive for trouble swallowing. Respiratory: Negative for shortness of breath. Cardiovascular: Negative for chest pain. Gastrointestinal: Negative for abdominal pain. Musculoskeletal: Positive for gait problem. Skin: Negative for rash. Neurological: Negative for weakness. Psychiatric/Behavioral: Negative for hallucinations. Physical Exam: Vitals: Vitals: 05/17/25 1035 BP: 147/78 Pulse: 66 Weight: 40.8 kg (90 lb) Neurological Physical Exam: Physical Exam: Mental Status: Orientation: Oriented to person, place and time. Level of consciousness: alert. Speech: Normal quality. Language: Normal. Cranial Nerves: CN II: Visual singer full to confrontation. CN III, IV, : CN III: PERRLA and EOM full. CN VII: Facial expression fully symmetric. Motor: Muscle Bulk: Normal. Muscle Strength: Strength 5/5 througout No rigidity Bradykinesia with finger tap TEREZA. Sensory: Light touch normal in upper and lower extremities. Gait/Coord/DTR: Gait: Able to stand with arms crossed, narrow base, intact arm swing. Coordination: Mild dyskinesias trunk/upper extremities. Tremor: Intermittent left hand tremor. General Exam: Constitutional: Thin . Assessment and Plan: Beena Diaz is a 74 y.o. right handed female with diagnosis of Parkinson's disease 15-20 years ago here for follow up.She had severe side effects to crexont with nausea, anorexia, vision change, and hallucinations. She lost significant weight because of this. After stopping cerxont hallucinations resolved, but her dyskinesia remain worse. This is likely due to her weight loss. In addition she has worsened postural instability due ot progression of parkinson's with increase frequency of falls. She also has dysphagia, likely related to her parkinson's disease. She continues to have nausea and decreased appetite despite being off crexont for over 1 month. This could be due to gastroparesis related to advanced parkinson's disease. She continues to experience frequent choking to solids and liquids with almost every meal, malnourishment, feeling of fullness after minimal food intake, and softening voice. Impression Idiopathic Parkinson's disease with dyskinesias and off time Plan: Continue Sinemet 2 tabs at 6AM, 1 tab at 1130am-12, 2 tabs at 5PM, 1 tab at 11pm); 1 tablet PRN Continue to take amantadine and clonazepam, call office with any fluctuations in symptoms related to medications Follow up with GI for nausea/anorexia- if gastroparesis is confirmed, then consider starting domperidone. She had normal EKG April 2025 Follow up with speech therapy for treatment of dysphagia and choking with solids and liquids. Considering switching to Vyalev pump to reduce off time present with Sinemet. Patient is taking home materials and will call the office if she decides to proceed Educated patient about the device, positive effects, risk factors, daily living with the pump, and more. Future considerations: deep brain stimulation. Patient does not prefer surgery and would rather start with Vyalev pump before DBS, but is open to the possibility in the future with refractory symptoms. Vyalev foscarbidopa/foslevodopa dosing calculated: base rate 0.15ml/hr, high rate 0.17ml/hr. No low rate at 0.15ml/hr is the lowest rate available. Extra dose 0.3ml with 2 hour lock out, loading dose 0.8ml with 3 hour lockout. Total time spent was 60 minutes: Preparing to see the patient (e.g., review of tests) Obtaining and/or reviewing separately obtained history Performing a medically appropriate examination and/or evaluation Counseling and educating the patient/family/caregiver Documenting clinical information in the electronic or other health record Jose Vera, MS3 [facility] Trice Silva MD documented in this encounter [facility] 05-17-2025 Instructions Trice Silva MD - 05/17/2025 10:30 AM EDT Complete swallow study and work with speech therapy on your swallowing Physical therapy for balance See Gi specialist to discuss nausea/decreased appetite - if they can confirm you have gastroparesis, will recommend domperidone from [facility] (do NOT take reglan (metaclopramide) as it worsens parkinson's) Let me know if you decide you want vyalev pump documented in this encounter [facility] 05-09-2025 Miscellaneous Notes Supervisor Bottle Machines spoke with Annalise Rodriguez regarding Dr. Dominguez requesting this patient receive IV hydration weekly, same as patient received on 05/05/25. As of now, there is no standing order placed for IV hydration. Quick Print Operator informed Annalise to reference the documentation from MARTIN Fernandez on 05/05/25 which outlines the process for submitting the order to the [facility]. Also, informed Annalise that Dr. Hebert's note on 05/05/25, specifically has the type of IV solution and hours to be infused. Annalise stated she had not read the notes. She would read the notes and call signwriter with any questions. documented in this encounter [facility] 05-09-2025 Telephone encounter Note Supervisor Bottle Machines spoke with Annalise Rodriguez regarding Dr. Dominguez requesting this patient receive IV hydration weekly, same as patient received on 05/05/25. As of now, there is no standing order placed for IV hydration. Quick Print Operator informed Annalise to reference the documentation from MARTIN Fernandez on 05/05/25 which outlines the process for submitting the order to the [facility]. Also, informed Annalise that Dr. Hebert's note on 05/05/25, specifically has the type of IV solution and hours to be infused. Annalise stated she had not read the notes. She would read the notes and call signwriter with any questions. [facility] 05-05-2025 Miscellaneous Notes Spoke with patient family and home health. Due to chronic dehydration, increased creatinine, patient family requesting to have IV bolus. Discussed with home health, patient to have this done at infusion center. Ordered 1L D5 LR to be given over [address] Angelica Hebert DO documented in this encounter [facility] 05-05-2025 Telephone encounter Note Spoke with patient family and home health. Due to chronic dehydration, increased creatinine, patient family requesting to have IV bolus. Discussed with home health, patient to have this done at infusion center. Ordered 1L D5 LR to be given over [address] Angel[facility] 05-03-[address] Janell Hebert called and asked to speak with Dr. Silva regarding the patient. She asked for a call back at [phone] Hebert reports patient has recent weight loss which they are working her up for and cognitive decline. She requested if any medications could be eliminated I suggested tapering off amantadine and possibly clonazepam as those can cause cognitive changes. Will see patient early May as planned. Quick Print Operator received a call from patients . He would like to speak with Dr. Silva or nurse. Caller received very bad news from MRI in the brain .Caller very concerned about results and would like some advise on treatments he can start for his . Caller expressed great concern. Quick Print Operator marking High Priority. Please call back patients [place] at [phone] Please advise, thank you I tried to return patient call, no answer. I did review MRI brain. It is NOT concerning. It shows age related atrophy (brain shrinking, but this does not mean she has any specific disease or problem and is not used to diagnose any problem) and she has mild white matter changes (these do not cause problems and happen with aging from high blood pressure, cholesterol, sugar etc and are nonspecific). Please chare this with patient/family. Quick Print Operator relayed Dr. Silva's response to patient's spouse.Patient's spouse stated that patient has lost a lot of weight and he is wondering if patient is anorexic and he knows that that can play a role in her cognitive issues. He is asking if patient should possibly have IV hydration and enteral feedings. His daughters are in medical field and they have researched these. Quick Print Operator asked if they have talked to PCP about this patient spouse stated that he had spoken with them. I am not sure that she is to the point that she would need IV or enteral nutrition, but I have not seen her since her decline. She needs to talk to her PCP for these concerns. documented in this encounter [facility] 05-03-[address] Janell Hebert called and asked to speak with Dr. Silva regarding the patient. She asked for a call back at [phone] [facility] 05-03-2025 Telephone encounter Note I returned call. Dr. Hebert reports patient has recent weight loss which they are working her up for and cognitive decline. She requested if any medications could be eliminated I suggested tapering off amantadine and possibly clonazepam as those can cause cognitive changes. Will see patient early May as planned. [facility] 05-03-2025 Telephone encounter Note Quick Print Operator received a call from patients . He would like to speak with Dr. Silva or nurse. Caller received very bad news from MRI in the brain .Caller very concerned about results and would like some advise on treatments he can start for his . Caller expressed great concern. Quick Print Operator marking High Priority. Please call back patients [place] at [phone] Please advise, thank you [facility] 05-03-2025 Telephone encounter Note I tried to return patient call, no answer. I did review MRI brain. It is NOT concerning. It shows age related atrophy (brain shrinking, but this does not mean she has any specific disease or problem and is not used to diagnose any problem) and she has mild white matter changes (these do not cause problems and happen with aging from high blood pressure, cholesterol, sugar etc and are nonspecific). Please chare this with patient/family. [facility] 05-03-2025 Telephone encounter Note Quick Print Operator relayed Dr. Silva's response to patient's spouse.Patient's spouse stated that patient has lost a lot of weight and he is wondering if patient is anorexic and he knows that that can play a role in her cognitive issues. He is asking if patient should possibly have IV hydration and enteral feedings. His daughters are in medical field and they have researched these. Quick Print Operator asked if they have talked to PCP about this patient spouse stated that he had spoken with them. [facility] 05-03-2025 Telephone encounter Note I am not sure that she is to the point that she would need IV or enteral nutrition, but I have not seen her since her decline. She needs to talk to her PCP for these concerns. [facility] 05-03-2025 History of Present illness Narrative 05/03/2025 Ms. Beena Edwards Joe [address] [place] [address] : 1950 Dear Ms. Beena Diaz, It was a pleasure seeing you as a patient at [facility] [employer]. Our assessment and recommendations are as follows: ASSESSMENT: 1. Health Maintenance 2. Cardiovascular Health 3. Weight loss 4. Decreased appetite 5. Parkinson's 6. Inflammatory polyarthritis 7. Chronic neck and back pain 8. Insomnia 9. HTN 10. GERD 11. HL 12. Anemia 13. Elevated Creatinine 14. Hyperbilirubinemia 15. Prediabetes PLAN: 1. Health Maintenance Yearly physical examinations are the best form of routine health maintenance. Recommendations are provided based upon our discussion of your medical history and your physical exam. - Cancer Screening: Colon: You are due for your colonoscopy Skin: Prevention is the best way to reduce your skin cancer risk. Protect yourself while in the sun with SPF 30 (or greater) or by wearing protective clothing. Monitor for concerning skin lesions and report them to a healthcare provider. Breast: Your breast cancer screening is up-to-date. Your last screening study was in 10/2024. Continue screening at the direction of your primary provider and/or zigzag machine operator. Cervical: Your cervical cancer screeing is up-to-date. You last pap smear was completed in 2022. Continue screening at the recommendation of your primary care provider and/or zigzag machine operator. Lung: Based upon your tobacco use history lung cancer screening is NOT indicated - given you are non-tobacco user. - Immunizations: Overall, your immunizations are up to date. Continue yearly influenza vaccines and those recommended by you primary care provider. - Bone Density: Your bone density screening (DEXA Scan) was updated today. The results were ABNORMAL. Please see below for further details. Please discuss these results with your primary care provider for further considerations of treatment and monitoring. Please discuss these results with your primary care provider for further considerations of future screening/monitoring. - Vision: Your vision screening was deferred today as you have been following with your order processor/certified energy manager on a routine basis. Please continue to following with them as directed. - Dental: Please continue to do so at the direction of your dentist. - Hepatitis C Screening: The results of the test were normal. This means there is no evidence of past Hepatitis C Infection. Nothing further needs to be done. - Blood Pressure: Your blood pressure was 60/43 today. Yearly screening is recommended to ensure that you do not develop problems regarding your blood pressure. - Body Mass Index (BMI): Your Body mass index is 15 kg/m . Your BMI is below the normal range. Please see below for recommendations 2. Cardiovascular Health Your 10-year cardiovascular risk is 26.6%. This is your risk of having a cardiovascular event (like a heart attack or stroke) in the next 10 years and helps us to recommend preventative therapies. 3. Weight loss 4. Decreased appetite Patient down from previously stable to 80 lb. Has had fear of choking and difficulty with swallowing. - recommend patient to be evaluated by DIVISION CHAIR also recommended adding on ensure with each meal. 5. Parkinson's - follows with neurology, Dr. Carolina - on sinemet CR 2 tabs at 6a,1 at 11:30, 2 at 5 p and 1 at 11p, mirapex 0.25 mg, rasagiline 1 mg, amantidine 100 mg 1-2 tabs at 6a and 1 tab 12 p - phone call to Dr. Shelton garrett to discuss medications. Discussed potentially decreasing amantadine and tapering off. Discussed with patient and family that this could potentiate worsening Parkinson's however this may be contributing to worsening cognition. Time, recommended decreasing amantadine to 1 tab twice a day for 1-2 weeks and then decreasing to 1 tab daily for 1-2 weeks and then off. 6. Inflammatory polyarthritis: - continue MTX 2.5mg 8 tabs 1x weekly for now by rheumatology Dr. Clemente, 1 mg daily folic acid 7. Chronic neck and back pain - following with PMR 8. Insomnia: - klonopin 0.5 mg, lunesta 2g nightly - also giving worsening of cognition, would recommend attempting to come off Klonopin. 9. HTN: - Given worsening of kidney function in stable cardiac disease per cardiac MRI, recommend stopping Lasix today. - we will continue to monitor just on losartan 25 mg for renal protection. Monitor blood pressures at home, if persistently low we will decrease dose and potentially come off. 10. GERD: continue protonix 40 mg 11. HL: Zocor 40 mg 12. Anemia: - drop from 11.9 to 11.4, due for colonoscopy, denies melena, blood in the stool, vaginal bleeding - also noted to have elevated bili, LDH - some underlying hemolytic process. Recheck CBC with haptoglobin, LDH, peripheral smear in 1 month. - if cognition improves, would recommend colonoscopy at that time. 13. Elevated Creatinine 0.74 02/02> 1.12 04/17>1.24 6.17 - suspect this is related to chronic dehydration - discussed with Neurology, patient family, patient would like to trial IV fluid bolus. Encouraged adequate hydration. 14. Hyperbilirubinemia - no jaundice abdominal pain - recheck in 4 weeks with liver panel 15. Prediabetes - A1c stable at 6.0 Thank you for participating in [facility] [employer]. We look forward to seeing you at your next encounter. Please feel free to contact us with any additional questions or concerns. Sincerely, Janell Hebert, DO [facility] [employer] CHIEF COMPLAINT: Beena Diaz presents to [facility] for her initial examination. HISTORY OF PRESENT ILLNESS: Beena Diaz presents to [facility] [employer] for her initial examination. She lists her top medical concern(s) to be managing her Parkinson's, RA, fear of choking, with weight loss and decreased appetite. She lists her top health and wellness goals to be overall feeling better. Lastly, she lists her top longevity goals to be learning about her health status. Weight loss Decreased appetite - patient notes a decreased appetite for the past several months. Previously she was stable at 105 lb for several years. She was now down to 80 lb. She states her was trying to do a low sugar diet and she was also trying to do this. She states that she just does not feel like eating and she was a fear of choking. She states that she was never been able to eat. States that she has some breakfast but often skips lunch and then eats something for dinner. She was not been on any protein supplements. Parkinson's: - follows with neurology, Dr. Carolina - on sinemet CR 2 tabs at 6a,1 at 11:30, 2 at 5 p and 1 at 11p, mirapex 0.25 mg, rasagiline 1 mg, amantidine 100 mg 1-2 tabs at 6a and 1 tab 12 p - patient's present and concerned that she has not been as with it as previous. She has been much more forgetful and uncooperative. He was concerned that her dementia is overall worsening. Inflammatory polyarthritis: - started on MTX 2.5mg 8 tabs 1x weekly by rheumatology Dr. Clemente, 1 mg daily folic acid - to have elevated inflammatory markers, ESR 67 - feels like this has been controlling aches and pains moderately well. Chronic neck and back pain - following with PMR Panic attack and insomnia: - klonopin 0.5 mg, lunesta 2g nightly HTN: - losartan 25mg, blood pressure low today. She was also on Lasix 20 mg for prescribed by Cardiology. Cardiology for chronic heart failure with preserved ejection fraction. She denies any chest pain, persistent shortness of breath. She will occasionally get winded with activities. She denies any dizziness, leg swelling. GERD: protonix 40 mg, has been on for the past year so. HL: Zocor 40 mg Anemia: - drop from 11.9 to 11.4, due for colonoscopy, denies melena, blood in the stool, vaginal bleeding - also noted to have elevated bili, LDH Elevated Creatinine 0.74 02/02> 1.12 6>1.24 6.17 - she has had several UTIs in the past, just has not been eating as much. She denies any dysuria, urgency, frequency, hematuria. Hyperbilirubinemia - no jaundice abdominal pain Prediabetes - A1c stable at 6.0 ALLERGIES: Allergies Allergen Reactions Iodinated Contrast Media Itching CURRENT MEDICATIONS: Current Outpatient Medications: amantadine (SYMMETREL) 100 mg tablet, Take 1-2 tabs at 6am and 1 tab at 12pm PO., Disp: 270 tablet, Rfl: 3 ammonium lactate (AMLACTIN) 12 % cream, Apply 1 Application topically as needed., Disp: , Rfl: calcium citrate-vitamin D2 250 mg-2.5 mcg (100 unit) per tablet, Take 1 tablet by mouth in the morning and 1 tablet before bedtime., Disp: , Rfl: carbidopa-levodopa (SINEMET CR) 25-100 mg per CR tablet, Take 2 tabs 6am, 1 tab 1130am, 2 tabs 5pm, and 1 tab 11pm PO, Disp: 540 tablet, Rfl: 3 clonazePAM (KlonoPIN) 0.5 mg tablet, Take 3 tablets at bedtime, Disp: 270 tablet, Rfl: 1 eszopiclone (LUNESTA) 2 mg tablet, Take 1 tablet (2 mg total) by mouth nightly. Take immediately before bedtime, Disp: 90 tablet, Rfl: 1 folic acid (FOLVITE) 1 mg tablet, Take 1 tablet (1 mg total) by mouth in the morning., Disp: 90 tablet, Rfl: 3 furosemide (LASIX) 20 mg tablet, Take 1 tablet (20 mg total) by mouth daily., Disp: , Rfl: losartan (COZAAR) 25 mg tablet, TAKE 1 TABLET BY MOUTH IN THE MORNING, Disp: 90 tablet, Rfl: 3 methotrexate 2.5 mg chemo tablet, Take 8 tablets by mouth once a week, Disp: 96 tablet, Rfl: 0 pantoprazole (PROTONIX) 40 mg EC tablet, Take 1 tablet (40 mg total) by mouth in the morning., Disp: 30 tablet, Rfl: 11 pramipexole (MIRAPEX) 0.25 mg tablet, TAKE 1 TABLET BY MOUTH 3 TIMES DAILY, Disp: 270 tablet, Rfl: 3 rasagiline (AZILECT) 1 mg tablet, Take 1 tablet (1 mg total) by mouth every morning., Disp: 90 tablet, Rfl: 3 simvastatin (ZOCOR) 40 mg tablet, TAKE 1 TABLET BY MOUTH AT NIGHT, Disp: 90 tablet, Rfl: 1 IMMUNIZATIONS: Immunization History Administered Date(s) Administered COVID-19, mRNA, LNP-S, PF, 100mcg/0.5mL Dose 12/22/2020, 01/19/2021, 09/13/2021 Covid-19, Mrna, Lnp-s, Bivalent, Pf, 30mcg/0.3 ml 11/14/2022 Influenza (IM) Preservative Free 12/02/2013 Influenza Vaccine, Quadrivalent, Adjuvanted 10/24/2021 Influenza, High-dose, Quadrivalent 08/27/2020 Influenza, Im Trivalent Preservative 09/28/2015 Influenza, Injectable, Quadrivalent 08/26/2016, 09/15/2017 Influenza, Injectable, quadrivalent (PF) 09/15/2019, 11/14/2022 Pneumococcal Conjugate 13-Valent 03/15/2020 Pneumococcal Polysaccharide 09/15/2017, 12/23/2018 Tdap 01/30/2011, 07/25/2021 Zoster Live 02/09/2015 Zoster Vaccine Recombinant 10/24/2021, 12/25/2021 PAST MEDICAL HISTORY: Past Medical History: Diagnosis Date Acute on chronic heart failure with preserved ejection fraction ([facility]) 02/20/2022 Anxiety Arthritis Asthma Cellulitis of left lower extremity 02/19/2022 COPD (chronic obstructive pulmonary disease) ([facility]) 03/14/2019 Dyslipidemia Esophageal dysphagia 2023 Heart murmur Hypertension Low back pain Open wound of left lower leg 01/20/2022 Parkinson's disease Sepsis due to Staphylococcus aureus ([facility]) 01/17/2022 Tear of right hamstring 07/03/2020 Visual impairment glasses PAST SURGICAL HISTORY: Past Surgical History: Procedure Laterality Date AUGMENTATION MAMMAPLASTY 11/09/2018 silicone COLONOSCOPY 10/20/2015 Rept 10 yrs ESOPHAGOGASTRODUODENOSCOPY with biopsies and dilatioin N/A 05/24/2024 Performed by Colleen Russell MD at [facility] OTHER SURGICAL HISTORY spinal pain shot FAMILY MEDICAL HISTORY: Family History Problem Relation Age of Onset Diabetes Father Heart disease Father CABG at age 65 Colon cancer Neg Hx Anesthesia problems Neg Hx LIFESTYLE: Diet: Appetite has been down, has been eating breakfast and dinner and a small snack for lunch. Has tried to eat healthier. 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 Sleep: Has a history of chronic insomnia, only sleeping a couple hours per night. She takes Lunesta and Klonopin to help with her sleep. REVIEW OF SYSTEMS: Review of Systems PHYSICAL EXAM: Body mass index is 15 kg/m . Vitals: 05/03/25 0657 Weight: 37.2 kg (82 lb) Height: 157.5 cm (5' 2 ) Physical Exam Constitutional: Appears comfortable, no acute distress. Alert and cooperative with most exams. Head: Normocephalic. Atraumatic. ENMT: Hearing grossly intact. TM clear and visualized bilaterally Neck: No cervical lymphadenopathy, no thyromegaly Eyes: No icterus, no pallor. Vision is grossly intact. Cardiovascular: Regular rate and rhythm no murmurs. No peripheral cyanosis or pallor. Pulmonary: Clear to auscultation bilaterally. No audible wheezing. Abdomen: Soft, nontender, no guarding or rigidity, no palpable masses or significant organomegaly. Neuro:Restring tremor with dysckinesis No facial droop. Skin: Visualized portions with normal color, texture, and with no abnormal lesion or rash. Extremities: No significant deformities. No lower extremity edema bilaterally. +5/5 upper and lower extremity strength b/l Psychiatric: Appropriate mood and affect. LABORATORY STUDIES: Appointment on 05/03/2025 Component Date Value Ref Range Status COLOR 05/03/2025 Colorless Yellow, Colorless Final TURBIDITY 05/03/2025 Clear Clear Final SPECIFIC GRAVITY 05/03/2025 1.011 1.003 - 1.035 Final NITRITE 05/03/2025 Negative Negative Final PH,URINE 05/03/2025 6.5 5.0 - 8.5 Final LEUKOCYTE ESTERASE 05/03/2025 Negative Negative Final PROTEIN 05/03/2025 Negative Negative Final KETONES (URINE) 05/03/2025 Negative Negative Final UROBILINOGEN 05/03/2025 <1.1 eu/dL <1.1 eu/dL Final BILIRUBIN (URINE) 05/03/2025 Negative Negative Final BLOOD/HGB 05/03/2025 Negative Negative Final GLUCOSE (URINE) 05/03/2025 Negative Negative Final CULTURE RESULTS 05/03/2025 NO GROWTH AT <1000 CFU/mL Final Appointment on 04/25/2025 Component Date Value Ref Range Status APOLIPOPROTEIN A1 04/25/2025 189 >=140 mg/dL Final Test Performed by: [place] [address] Marketing Research Analyst: Sam Dukes Ph.D.; CLIA# [id number] APOLIPOPROTEIN B 04/25/2025 66 mg/dL Final REFERENCE VALUE Desirable: <90 Above Desirable: 90-99 Borderline high: 100-119 High: 120-139 Very high: > or = 140 Test Performed by: [place] [address] Marketing Research Analyst: Sam Dukes Ph.D.; CLIA# [id number] BILIRUBIN,DIRECT 04/25/2025 0.3 <=0.4 mg/dL Final WBC 04/25/2025 6.3 4 - 11 x10E9/L Final RBC Count 04/25/2025 3.71 (L) 3.8 - 5.2 X10E12/L Final Hemoglobin 04/25/2025 11.4 (L) 11.7 - 15.5 g/dL Final Hematocrit 04/25/2025 34.0 (L) 35 - 47 % Final MCV 04/25/2025 92 80 - 100 fL Final MCH 04/25/2025 30.8 27 - 34 pg Final MCHC 04/25/2025 33.5 32 - 36 g/dL Final RDW 04/25/2025 14.8 11.5 - 15 % Final Platelet Count 04/25/2025 254 150 - 450 X10E9/L Final MPV 04/25/2025 8.8 7 - 12 fL Final Neutrophils % 04/25/2025 66.7 % Final Lymphocytes % 04/25/2025 20.5 % Final Monocytes % 04/25/2025 7.4 % Final Eosinophils % 04/25/2025 4.9 % Final Basophils % 04/25/2025 0.5 % Final Neutrophils Absolute (A) 04/25/2025 4.2 1.5 - 6.6 10*3/uL Final Lymphocytes Absolute 04/25/2025 1.3 1.0 - 3.5 10*3/uL Final Monocytes Absolute 04/25/2025 0.5 0.0 - 0.9 10*3/uL Final Eosinophils Absolute 04/25/2025 0.3 0.0 - 0.4 10*3/uL Final Basophils Absolute 04/25/2025 0.0 0.0 - 0.2 10*3/uL Final Differential Type 04/25/2025 AUTOMATED DIFFERENTIAL Final SODIUM 04/25/2025 140 134 - 146 mmol/L Final POTASSIUM 04/25/2025 4.2 3.5 - 5.0 mmol/L Final CHLORIDE 04/25/2025 97 (L) 98 - 109 mmol/L Final CARBON DIOXIDE 04/25/2025 31 22 - 32 mmol/L Final ANION GAP 04/25/2025 12 5 - 15 mmol/L Final BLOOD UREA NITROGEN 04/25/2025 36 (H) 5 - 27 mg/dL Final CREATININE 04/25/2025 1.24 (H) 0.40 - 1.00 mg/dL Final METHOD TRACEABLE TO IDNM STANDARD GLUCOSE 04/25/2025 98 65 - 99 mg/dL Final CALCIUM 04/25/2025 10.1 8.5 - 10.5 mg/dL Final TOTAL PROTEIN 04/25/2025 7.8 6.0 - 8.0 g/dL Final ALBUMIN 04/25/2025 4.7 3.2 - 5.3 g/dL Final ALKALINE PHOSPHATASE 04/25/2025 76 39 - 130 U/L Final AST 04/25/2025 27 <=41 U/L Final ALT 04/25/2025 6 <=31 U/L Final BILIRUBIN,TOTAL 04/25/2025 1.8 (H) 0.3 - 1.2 mg/dL Final EGFR Non-Race Dependent 04/25/2025 46 (L) >=60 ml/min/1.73sq.m Final Reported eGFR is based on the CKD-EPI 2020 equation that does not use a race coefficient. CORTISOL, TOTAL 04/25/2025 21.2 ug/dL Final DHEA S 04/25/2025 71 7 - 177 ug/dL Final DIHYDROTESTOSTERONE 04/25/2025 <50 <=128 pg/mL Final ADDITIONAL INFORMATION This test was developed and its performance characteristics determined by [facility] in a manner consistent with CLIA requirements. This test has not been cleared or approved by the U.S. Food and Drug Administration. Test Performed by: [facility] [address] [place] [address] Marketing Research Analyst: Sam Dukes Ph.D.; CLIA# [id number] ESR, Erythrocyte Sedimentation Rate 04/25/2025 67 (H) 0 - 30 mm/h Final ESTRADIOL 04/25/2025 <15.0 pg/mL Final FERRITIN 04/25/2025 90 11 - 307 ng/mL Final FOLLICLE STIM HORMONE 04/25/2025 24.9 mIU/mL Final GGT 04/25/2025 23 9 - 33 U/L Final HEMOGLOBIN A1C 04/25/2025 6.0 (H) 4.4 - 5.6 % Final ADA Guidelines Result HgbA1c Normal : less than 5.7 % Prediabetes : 5.7 % to 6.4 % Diabetes : > 6.4 % Use with caution in patients with abnormal hemoglobin variants as the half-life of red blood cells and in vivo glycation rates are affected. EST. AVERAGE GLUCOSE 04/25/2025 126 mg/dL Final ANTI HCV W/PCR REFLX 04/25/2025 Non-Reactive Non-Reactive Final If recent infection suspected, recommend repeat testing (>2 months). Wrcmfk-yu-[id number] ratio is <1.0. HS CRP 04/25/2025 0.020 0.000 - 0.744 mg/dL Final HOMOCYSTEINE 04/25/2025 36.45 (H) 3.36 - 20.44 umol/L Final IGFBP-3 04/25/2025 4.9 2.8 - 5.7 mcg/mL Final Test Performed by: [facility] [address] [place] [address] Marketing Research Analyst: Sam Dukes Ph.D.; CLIA# [id number] INSULIN 04/25/2025 2.24 1.00 - 23.00 uIU/mL Final IRON 04/25/2025 141 50 - 170 ug/dL Final TRANSFERRIN 04/25/2025 270 168 - 336 mg/dL Final IRON BINDING 04/25/2025 378 250 - 425 ug/dL Final IRON SATURATION 04/25/2025 37 15 - 50 % SATURATION Final LDH 04/25/2025 371 (H) 100 - 235 U/L Final CHOLESTEROL 04/25/2025 171 150 - 200 mg/dL Final TRIGLYCERIDE 04/25/2025 46 27 - 150 mg/dL Final HDL CHOLESTEROL 04/25/2025 82 >39 mg/dL Final HDL <40 mg/dL - High Risk HDL > or = 40mg/dL- Desirable HDL >60 mg/dL - Negative Risk LDL (CALC) 04/25/2025 80 <130 mg/dL Final LDL <100 mg/dL - Desirable LDL >160 mg/dL - High Risk CHOLESTEROL:HDL 04/25/2025 2.1 1.0 - 5.0 Final VERY LOW LIPOPROTEIN 04/25/2025 9 0 - 30 mg/dL Final LIPOPROTEIN(A), S 04/25/2025 <7 <75 nmol/L Final ADDITIONAL INFORMATION Please notice that Lp(a) values [...] This test has been modified from the supervisor coal handling's instructions. Its performance characteristics were determined by [facility] in a manner consistent with CLIA requirements. This test has not been cleared or approved by the U.S. Food and Drug Administration. Test Performed by: [facility] - [address] [address] Marketing Research Analyst: Sam Dukes Ph.D.; CLIA# [id number] LUTEINIZING HORMONE 04/25/2025 0.9 mIU/mL Final MAGNESIUM 04/25/2025 2.2 1.8 - 2.6 mg/dL Final URINE CREATININE,RDM 04/25/2025 18.80 mg/dL Final MALB/CREAT RATIO 04/25/2025 53.2 (H) 0.0 - 30.0 mg/g Final MICROALBUMIN, URINE 04/25/2025 1.0 0.0 - 1.9 mg/dL Final PHOSPHORUS 04/25/2025 3.7 2.4 - 4.9 mg/dL Final PROGESTERONE 04/25/2025 0.9 ng/mL Final FEMALES: 1st Tri: 4.7-50.7 ng/ml 2nd Tri: 19.4-45.3 ng/ml MENSTRUATING FEMALES: Follicular: 0.3-1.5 ng/ml Mid Luteal: 5.2-18.6 ng/ml Post [place]: <0.1-0.8 ng/ml ------- PROLACTIN 04/25/2025 1.0 (L) 2.7 - 19.6 ng/mL Final SEX HORMONE BINDING GLOBULIN 04/25/2025 60.4 16.8 - 125.2 nmol/L Final PT TYPE AGE RANGE MALES 20-50Y 13.3-89.5 mmol/L FEMALES 20-46Y 18.2-135.5 mmol/L FEMALES POSTMENO 47-91Y 16.8-125.2 mmol/L FREE T3 04/25/2025 2.59 2.50 - 3.90 pg/mL Final FREE T4 04/25/2025 1.43 0.61 - 1.60 ng/dL Final TSH 04/25/2025 1.63 0.49 - 4.67 uIU/mL Final URIC ACID 04/25/2025 5.4 2.6 - 7.2 mg/dL Final COLOR 04/25/2025 Colorless Yellow, Colorless Final TURBIDITY 04/25/2025 Clear Clear Final SPECIFIC GRAVITY 04/25/2025 1.009 1.003 - 1.035 Final NITRITE 04/25/2025 Negative Negative Final PH,URINE 04/25/2025 7.0 5.0 - 8.5 Final LEUKOCYTE ESTERASE 04/25/2025 Negative Negative Final PROTEIN 04/25/2025 Negative Negative Final KETONES (URINE) 04/25/2025 Negative Negative Final UROBILINOGEN 04/25/2025 <1.1 eu/dL <1.1 eu/dL Final BILIRUBIN (URINE) 04/25/2025 Negative Negative Final BLOOD/HGB 04/25/2025 Negative Negative Final GLUCOSE (URINE) 04/25/2025 Negative Negative Final VITAMIN B12 04/25/2025 274 180 - 914 pg/mL Final VITAMIN D 25 HYD TOT 04/25/2025 34.3 30.0 - 100.0 ng/mL Final TEST RESULT 04/25/2025 SEE NOTE Final Comment: Test name Result Flag Units RefIntvl Testosterone by Beam Warper 13 ng/dL 5-32 REFERENCE INTERVAL: Testosterone by Beam Warper Females Premenopausal 9-55 ng/dL Postmenopausal 5-32 ng/dL INTERPRETIVE INFORMATION: Testosterone by Beam Warper Free or bioavailable testosterone measurements may provide supportive information. For individuals on testosterone-suppressing hormone therapies (e.g., antiandrogens or estrogens), refer to cisgender female reference intervals. For a complete set of all established reference intervals, refer to [email or web address]/[email or web address] . This test was developed and its performance characteristics determined by [facility]. It has not been cleared or approved by the US Food and Drug Administration. This test was performed in a CLIA certified laboratory and is intended for clinical purposes. Sex Hormone Binding Globulin 65 nmol/L 17-125 REFERENCE INTERVAL: Sex Hormone Binding Globulin Access complete set of age- and/or gender-specific reference intervals for this test in the [facility] Test Directory ([facility]). Testosterone, Free by Beam Warper 1.4 pg/mL 0.6-3.8 INTERPRETIVE INFORMATION: Testosterone, Free by Beam Warper Free testosterone concentration is calculated using total testosterone (measured by mass spectrometry) and the binding constant of testosterone and sex hormone-binding globulin (SHBG). For individuals on testosterone-suppressing hormone therapies (e.g., antiandrogens or estrogens), refer to cisgender female reference intervals. For a complete set of all established reference intervals, refer to [email or web address]/Pub/[email or web address] . This test was developed and its performance characteristics determined by [facility]. It has not been cleared or approved by the US Food and Drug Administration. This test was performed in a CLIA certified laboratory and is intended for clinical purposes. Performed By: [facility] [address] [place] [id number] Toolmaker Helper: Kwame Marion MD, PhD CLIA Number: [id number] Admission on 04/17/2025, Discharged on 04/17/2025 Component Date Value Ref Range Status WBC 04/17/2025 8.3 4 - 11 x10E9/L Final RBC Count 04/17/2025 3.95 3.8 - 5.2 X10E12/L Final Hemoglobin 04/17/2025 11.9 11.7 - 15.5 g/dL Final Hematocrit 04/17/2025 36.3 35 - 47 % Final MCV 04/17/2025 92 80 - 100 fL Final MCH 04/17/2025 30.0 27 - 34 pg Final MCHC 04/17/2025 32.7 32 - 36 g/dL Final RDW 04/17/2025 14.9 11.5 - 15 % Final Platelet Count 04/17/2025 255 150 - 450 X10E9/L Final MPV 04/17/2025 8.4 7 - 12 fL Final Neutrophils % 04/17/2025 68.2 % Final Lymphocytes % 04/17/2025 20.2 % Final Monocytes % 04/17/2025 8.7 % Final Eosinophils % 04/17/2025 2.5 % Final Basophils % 04/17/2025 0.4 % Final Neutrophils Absolute (A) 04/17/2025 5.6 1.5 - 6.6 10*3/uL Final Lymphocytes Absolute 04/17/2025 1.7 1.0 - 3.5 10*3/uL Final Monocytes Absolute 04/17/2025 0.7 0.0 - 0.9 10*3/uL Final Eosinophils Absolute 04/17/2025 0.2 0.0 - 0.4 10*3/uL Final Basophils Absolute 04/17/2025 0.0 0.0 - 0.2 10*3/uL Final Differential Type 04/17/2025 AUTOMATED DIFFERENTIAL Final SODIUM 04/17/2025 139 134 - 146 mmol/L Final POTASSIUM 04/17/2025 4.6 3.5 - 5.0 mmol/L Final CHLORIDE 04/17/2025 96 (L) 98 - 109 mmol/L Final CARBON DIOXIDE 04/17/2025 32 22 - 32 mmol/L Final ANION GAP 04/17/2025 11 5 - 15 mmol/L Final BLOOD UREA NITROGEN 04/17/2025 30 (H) 5 - 27 mg/dL Final CREATININE 04/17/2025 1.12 (H) 0.40 - 1.00 mg/dL Final METHOD TRACEABLE TO IDNM STANDARD GLUCOSE 04/17/2025 112 (H) 65 - 99 mg/dL Final CALCIUM 04/17/2025 10.3 8.5 - 10.5 mg/dL Final TOTAL PROTEIN 04/17/2025 8.1 (H) 6.0 - 8.0 g/dL Final ALBUMIN 04/17/2025 4.7 3.2 - 5.3 g/dL Final ALKALINE PHOSPHATASE 04/17/2025 88 39 - 130 U/L Final AST 04/17/2025 20 <=41 U/L Final ALT 04/17/2025 17 <=31 U/L Final BILIRUBIN,TOTAL 04/17/2025 0.8 0.3 - 1.2 mg/dL Final EGFR Non-Race Dependent 04/17/2025 52 (L) >=60 ml/min/1.73sq.m Final Reported eGFR is based on the CKD-EPI 2020 equation that does not use a race coefficient. PROTIME 04/17/2025 11.2 9.8 - 13.2 sec Final INR 04/17/2025 1.0 0.9 - 1.2 Final APTT 04/17/2025 29 26 - 37 sec Final TSH 04/17/2025 1.57 0.49 - 4.67 uIU/mL Final FREE T4 04/17/2025 1.46 0.61 - 1.60 ng/dL Final Extra Tube 04/17/2025 Auto Resulted Final TROPONIN I, HIGH SENSITIVITY 04/17/2025 10 <16 ng/L Final TROPONIN I, HIGH SENSITIVITY 04/17/2025 10 <16 ng/L Final Bedside Glucose (POC) 04/17/2025 114 (H) 65 - 99 mg/dL Final LACTATE W/REFLEX 04/17/2025 0.7 0.4 - 2.0 mmol/L Final POC Urine Specific [place] 04/17/2025 1.015 1.010, 1.015, 1.020, 1.025 Final POC Urine Leukocyte Esterase 04/17/2025 Small (A) Negative Final POC Urine Nitrite 04/17/2025 Negative Negative Final POC Urine pH 04/17/2025 7.5 5.0, 6.0, 6.5, 7.0, 7.5, 8.0, 8.5, 5.5 Final POC Urine Protein 04/17/2025 Trace (A) Negative Final POC Urine Glucose 04/17/2025 Negative Negative Final POC Urine Ketones 04/17/2025 Negative Negative Final POC Urine Urobilinogen 04/17/2025 0.2 E.U./dL Final POC Urine Bilirubin 04/17/2025 Negative Negative Final POC Urine Blood/HGB 04/17/2025 Negative Negative Final IMAGING STUDIES: MR Icaria Body Result Date: 04/25/2025 Narrative: MR ICARIA BODY CLINICAL INFORMATION: Health care [...] Ashok Kramer MD on 04/25/2025 1:34 PM MR Icaria cardiac Result Date: 04/25/2025 Narrative: MR MSATERSON CARDIAC CLINICAL INFORMATION: Health care maintenance. Health [...] J Cardiovasc Magn Reson 22, 87 (2020). [email or web address] Finalized by Ashok Kramer MD on 04/25/2025 1:30 PM MR Icaria Neuro Result Date: 04/25/2025 Narrative: MR ICARIA NEURO CLINICAL INFORMATION: Health care maintenance TECHNIQUE: Multiplanar multisequence MR imaging of the brain and pokagon of [place] was performed on a 3 [place] superconducting Siemens unit, without intravenous contrast. Whole-body multisequence screening MRI performed without contrast, selective interpretation of the neck portions; remaining chest, abdomen, and pelvis is reported separately. Volume rendered 3-D post processed reformatted images were generated at an independent workstation, with [employer] automated segmentation analysis, to further define anatomy [...] thecal sac stenosis at C5-C6. IMPRESSION: * Udoc-ji-zwvfnyby burden white matter FLAIR hyperintensities, most often seen in the setting of chronic microvascular ischemia. * Unremarkable pokagon of [place] MRA. * Several brain parenchymal [...] Kam Moon MD on 04/25/2025 12:[address] abdomen and pelvis without contrast Result Date: 04/17/2025 Narrative: EXAM: ABDOMEN AND PELVIS CT WITHOUT CONTRAST [...] Ady Ramirez MD on 04/17/2025 8:[address] chest without contrast Result Date: 04/17/2025 Narrative: CT CHEST WO CONT: 04/17/2025 7:41 PM [...] detection for pulmonary nodules was performed utilizing [employer] software. FINDINGS: Comparison: CT dated 01/04/2019. Nodule [...] Ed Peres MD on 04/17/2025 8:[address] brain without contrast Result Date: 04/17/2025 Narrative: EXAM: CT BRAIN WO CONT CLINICAL INFORMATION: [...] Ady Ramirez MD on 04/17/2025 8:30 PM TESTING: BODY COMPOSITION: Your body composition was completed today by [employer]. Your InBody Score was 34. Your total weight was 82.7 lbs. Your Body Mass Index is 15.2 kg/m2. Dry Lean Mass at 17.9 lbs and Body Fat Mass at 12.8 lbs. Skeletal Muscle Mass at 36.2 lbs. Your percent body fat is 12.8%. Your goals today regarding this data were to try to increase nutrition intake. HEARING SCREEN: unable to participate due to increased agitation when performing hearing screen ELECTROCARDIOGRAM: Your resting EKG was within normal limits - showing NO evidence of new or old heart disease. The heart axis was NORMAL. DEXA SCAN: There was evidence of osteopenia. MRI: Your MRI completed included the following: Cardiac Body (Chest, Abdomen and Pelvis) Brain The Cardiac MR was normal. Your Body MR was normal. Your Neuro MR was abnormal showing evidence of atrophy. Attending Attestation: I saw the patient. I participated and was physically present during the critical/york portions of the service. I was directly involved in the management and treatment plan of the patient. I reviewed the resident's note. [facility] encounter [facility] History of Present illness Narrative Images from the original note were not included. [facility] [address], [address] [place] [address] * Patient: Beena Diaz Date of : 1950 PCP: BRENDEN CABA APRN-JONEL Provider: Ofelia Pierce CNP Date of Visit: 04/25/25 CHIEF COMPLAINT Chief Complaint Patient presents with Back Pain Pt presenting today for f/u BL C3-4 TFESI (LT 01/30 & RT 02/13/25). Pt reports the relief took 2-3 weeks before the relief kicked in but is still lasting. Pt states her neurologist switched one of her medications which helped at first but lead to hallucinations and effected her eyesight all over the last 3 weeks. Pt not currently utilizing Tramadol. Test Previous Evaluation and Treatment Diagnostics: MRI Cervical 12/2024 Medications tried: OTC, NSAIDS, Muscle Relaxants, and Narcotics Home Exercise Program: Guided by physician Physical Therapy: daily hep and stretches Research Nurse: No Pain Management: Injections & Medication Prior Surgery: None Pain Score: 9/10 No blood thinner No cardiac device Not diabetic Iodine Allergies: Iodinated Contrast Media ASSESSMENT 1. Chronic pain syndrome 2. Cervical radiculopathy 3. Neck pain, chronic 4. Chronic bilateral low back pain without sciatica HISTORY OF PRESENT ILLNESS Beena Diaz is a 74 y.o. female, is an established patient, here for f/u on cervical spine pain. Bilateral c3-4 T FESI Radiating Pain: yes, If so how far? (upper leg, knee, foot) hand Numbness or tingling: yes Percentage relief from last injection: 80% Percentage of improvement in function: 80% How long have improvements lasted: continued, not needing repeat at this time. Will call. REVIEW OF SYSTEMS Pertinent positives: Review of Systems Musculoskeletal: Positive for arthralgias, myalgias, neck pain and neck stiffness. MSK review of systems as stated above. All other 10 systems were reviewed and were negative other than what was stated in the history of present illness. PAST MEDICAL, FAMILY, AND SOCIAL HISTORY UPDATE: The following portions of the patient's history were reviewed and updated as appropriate: allergies, current medications, past family history, past medical history, past social history, past surgical history and problem list. Past Medical History: Diagnosis Date Acute on chronic heart failure with preserved ejection fraction ([facility]) 02/20/2022 Anxiety Arthritis Asthma Cellulitis of left lower extremity 02/19/2022 COPD (chronic obstructive pulmonary disease) ([facility]) 03/14/2019 Dyslipidemia Esophageal dysphagia 2023 Heart murmur Hypertension Low back pain Open wound of left lower leg 01/20/2022 Parkinson's disease Sepsis due to Staphylococcus aureus ([facility]) 01/17/2022 Tear of right hamstring 07/03/2020 Visual impairment glasses Past Surgical History: Procedure Laterality Date AUGMENTATION MAMMAPLASTY 11/09/2018 silicone COLONOSCOPY 10/20/2015 Rept 10 yrs ESOPHAGOGASTRODUODENOSCOPY with biopsies and dilatioin N/A 05/24/2024 Performed by Colleen Russell MD at [facility] OTHER SURGICAL HISTORY spinal pain shot Family History Problem Relation Age of Onset Diabetes Father Heart disease Father CABG at age 65 Colon cancer Neg Hx Anesthesia problems Neg Hx Tobacco History: Social History Tobacco Use Smoking Status Former Current packs/day: 0.00 Types: Cigarettes Quit date: 2017 Years since quittin.4 Smokeless Tobacco Never (If patient a smoker, smoking cessation counseling offered) Social History: Social History Substance and Sexual Activity Alcohol Use Yes Alcohol/week: 7.0 standard drinks of alcohol Types: 7 Glasses of wine per week Comment: daily ALLERGIES Allergies Allergen Reactions Iodinated Contrast Media Itching MEDICATIONS Current Outpatient Medications Medication Sig Dispense Refill ALPRAZolam (XANAX) 0.25 mg tablet Take 1 tablet (0.25 mg total) by mouth 3 (three) times a day as needed for anxiety. 12 tablet 3 amantadine (SYMMETREL) 100 mg tablet Take 1-2 tabs at 6am and 1 tab at 12pm PO. 270 tablet 3 ammonium lactate (AMLACTIN) 12 % cream Apply 1 Application topically as needed. calcium citrate-vitamin D2 250 mg-2.5 mcg (100 unit) per tablet Take 1 tablet by mouth in the morning and 1 tablet before bedtime. carbidopa-levodopa (SINEMET CR) 25-100 mg per CR tablet Take 2 tabs 6am, 1 tab 1130am, 2 tabs 5pm, and 1 tab 11pm PO 540 tablet 3 clonazePAM (KlonoPIN) 0.5 mg tablet Take 3 tablets at bedtime 270 tablet 1 eszopiclone (LUNESTA) 2 mg tablet Take 1 tablet (2 mg total) by mouth nightly. Take immediately before bedtime 90 tablet 1 folic acid (FOLVITE) 1 mg tablet Take 1 tablet (1 mg total) by mouth in the morning. 90 tablet 3 furosemide (LASIX) 20 mg tablet Take 1 tablet (20 mg total) by mouth daily. losartan (COZAAR) 25 mg tablet TAKE 1 TABLET BY MOUTH IN THE MORNING 90 tablet 3 methotrexate 2.5 mg chemo tablet Take 8 tablets by mouth once a week 96 tablet 0 pantoprazole (PROTONIX) 40 mg EC tablet Take 1 tablet (40 mg total) by mouth in the morning. 30 tablet 11 pramipexole (MIRAPEX) 0.25 mg tablet TAKE 1 TABLET BY MOUTH 3 TIMES DAILY 270 tablet 3 rasagiline (AZILECT) 1 mg tablet Take 1 tablet (1 mg total) by mouth every morning. 90 tablet 3 simvastatin (ZOCOR) 40 mg tablet TAKE 1 TABLET BY MOUTH AT NIGHT 90 tablet 1 tiZANidine (ZANAFLEX) 4 mg capsule Take 1 capsule (4 mg total) by mouth nightly for 90 days. 30 capsule 2 No current facility-administered medications for this visit. CURRENT PAIN MEDS; Pain Medications tiZANidine (ZANAFLEX) 4 mg capsule Take 1 capsule (4 mg total) by mouth nightly for 90 days. PHYSICAL EXAM Physical Exam Vitals reviewed. Constitutional: General: She is not in acute distress. Appearance: Normal appearance. She is well-developed. She is not diaphoretic. HENT: Head: Normocephalic and atraumatic. Nose: Nose normal. Eyes: Extraocular Movements: Extraocular movements intact. Conjunctiva/sclera: Conjunctivae normal. Pupils: Pupils are equal, round, and reactive to light. Neck: Comments: Radiates up the back of the head, ringing and pain in the ears. Cardiovascular: Rate and Rhythm: Normal rate. Pulmonary: Effort: Pulmonary effort is normal. No respiratory distress. Breath sounds: Normal breath sounds. Abdominal: Tenderness: There is no abdominal tenderness. Musculoskeletal: Cervical back: Tenderness present. Pain with movement present. Decreased range of motion. Back: Neurological: General: No focal deficit present. Mental Status: She is alert and oriented to person, place, and time. Psychiatric: Behavior: Behavior normal. Thought Content: Thought content normal. Judgment: Judgment normal. DIAGNOSTICS I have personally reviewed patient's imaging. PROCEDURE None Counseling given: Not Answered PLAN - will call when she is interested in repeating epidural injection Follow-up: No follow-ups on file. Diversion Concerns? No Patient Education Learner: Patient Educated on: Natural history and expected course discussed. Questions answered. Educational materials distributed. NSAIDs per medication orders. OTC analgesics as needed. Readiness: acceptance Method: explanation Response: verbalizes understanding CIARRA Jose Disclaimer: This note was completed using a voice rehab therapist system. Every effort was made to ensure accuracy. However, inadvertent computerized rehab therapist errors may be present. Please contact author for any clarification. CIARRA Hernandez 04/25/25 1300 documented in this encounter [facility] Fluid[facility]1 [facility] 04-11-2025 History of Present illness Narrative Beena Diaz Date of visit: 04/11/2025 Date of : 1950 Age: 74 y.o. Patient Active Problem List Diagnosis Chronic bilateral low back pain without sciatica Swelling of right hand Menopause Decreased body height Parkinson's disease ([facility]) Hypertension Mixed hyperlipidemia Lumbar degenerative disc disease Osteoarthritis of facet joint of lumbar spine COPD (chronic obstructive pulmonary disease) ([facility]) Tear of right hamstring Right rotator cuff tear arthropathy Livedo reticularis Oral lesion Chronic heart failure with preserved ejection fraction ([facility]) Vasovagal episode Nonrheumatic mitral valve regurgitation Chronic pain syndrome Neck pain, chronic Cervical radiculopathy Allergies Allergen Reactions Iodinated Contrast Media Itching Current Outpatient Medications Medication Sig Dispense Refill ALPRAZolam (XANAX) 0.25 mg tablet Take 1 tablet (0.25 mg total) by mouth 3 (three) times a day as needed for anxiety. 12 tablet 3 amantadine (SYMMETREL) 100 mg tablet Take 1-2 tabs at 6am and 1 tab at 12pm PO. 270 tablet 3 ammonium lactate (AMLACTIN) 12 % cream Apply 1 Application topically as needed. calcium citrate-vitamin D2 250 mg-2.5 mcg (100 unit) per tablet Take 1 tablet by mouth in the morning and 1 tablet before bedtime. carbidopa-levodopa (SINEMET CR) 25-100 mg per CR tablet Take 2 tabs 6am, 1 tab 1130am, 2 tabs 5pm, and 1 tab 11pm PO 540 tablet 3 clonazePAM (KlonoPIN) 0.5 mg tablet Take 3 tablets at bedtime 270 tablet 1 eszopiclone (LUNESTA) 2 mg tablet Take 1 tablet (2 mg total) by mouth nightly. Take immediately before bedtime 90 tablet 1 folic acid (FOLVITE) 1 mg tablet Take 1 tablet (1 mg total) by mouth in the morning. 90 tablet 3 furosemide (LASIX) 20 mg tablet Take 1 tablet (20 mg total) by mouth daily. losartan (COZAAR) 25 mg tablet TAKE 1 TABLET BY MOUTH IN THE MORNING 90 tablet 3 methotrexate 2.5 mg chemo tablet Take 8 tablets by mouth once a week 96 tablet 0 pantoprazole (PROTONIX) 40 mg EC tablet Take 1 tablet (40 mg total) by mouth in the morning. 30 tablet 11 pramipexole (MIRAPEX) 0.25 mg tablet TAKE 1 TABLET BY MOUTH 3 TIMES DAILY 270 tablet 3 rasagiline (AZILECT) 1 mg tablet Take 1 tablet (1 mg total) by mouth every morning. 90 tablet 3 simvastatin (ZOCOR) 40 mg tablet TAKE 1 TABLET BY MOUTH AT NIGHT 90 tablet 1 tiZANidine (ZANAFLEX) 4 mg capsule Take 1 capsule (4 mg total) by mouth nightly for 90 days. 30 capsule 2 calcium carbonate 260 mg calcium (648 mg) tablet Take by mouth. (Patient not taking: Reported on 04/11/2025) ciclopirox (LOPROX) 0.77 % cream (Patient not taking: Reported on 04/11/2025) traMADoL (ULTRAM) 50 mg tablet Take 1 tablet (50 mg total) by mouth every 8 (eight) hours as needed for pain. (Patient not taking: Reported on 04/11/2025) 90 tablet 0 No current facility-administered medications for this visit. Chief Complaint Patient presents with Follow-up 6 MO, TESTING MB, L/S BCD, SCHED W/PT, BCD ONLY History of Present Illness Beena was seen today for follow-up of history of heart failure preserved ejection fraction as well as mitral insufficiency. She had developed a reaction to Crexon, for her Parkinson's which caused her to have hallucinations and poor appetite. She is off that medicine at this time. She denies any chest pain, pressure, or shortness of breath. She has not had any edema and takes her furosemide on a daily basis. Her blood pressures have been stable but with the Parkinson's does have some elevated numbers at times as well as decreased systolic blood pressure. She had a recent echocardiogram in September showing normal left ventricular function with moderate tricuspid insufficiency mild thickening of the aortic valve. Past Medical History: Diagnosis Date Acute on chronic heart failure with preserved ejection fraction ([facility]) 02/20/2022 Anxiety Arthritis Asthma Cellulitis of left lower extremity 02/19/2022 COPD (chronic obstructive pulmonary disease) ([facility]) 03/14/2019 Dyslipidemia Esophageal dysphagia 2023 Heart murmur Hypertension Low back pain Open wound of left lower leg 01/20/2022 Parkinson's disease Sepsis due to Staphylococcus aureus ([facility]) 01/17/2022 Tear of right hamstring 07/03/2020 Visual impairment glasses No data recorded No data recorded No data recorded Past Surgical History: Procedure Laterality Date AUGMENTATION MAMMAPLASTY 11/09/2018 silicone COLONOSCOPY 10/20/2015 Rept 10 yrs ESOPHAGOGASTRODUODENOSCOPY with biopsies and dilatioin N/A 05/24/2024 Performed by Colleen Russell MD at [facility] ENDOSCOPY OTHER SURGICAL HISTORY spinal pain shot Family History Problem Relation Age of Onset Diabetes Father Heart disease Father CABG at age 65 Colon cancer Neg Hx Anesthesia problems Neg Hx Social History Socioeconomic History Marital status: Spouse name: Not on file Number of children: Not on file Years of education: Not on file Highest education level: Not on file Occupational History Not on file Tobacco Use Smoking status: Former Current packs/day: 0.00 Types: Cigarettes Quit date: 2017 Years since quittin.4 Smokeless tobacco: Never Vaping Use Vaping status: Never Used Substance and Sexual Activity Alcohol use: Yes Alcohol/week: 7.0 standard drinks of alcohol Types: 7 Glasses of wine per week Comment: daily Drug use: No Comment: THC gummies Sexual activity: Not Currently Partners: Male Other Topics Concern Caffeine Use Yes Social History Narrative Not on file Social Drivers of Health Financial Resource Strain: Low Risk (06/17/2024) Received from [facility] Financial Resource Strain How hard is it for you to pay for the very basics like food, housing, medical care, and heating? Would you say it is:: Not hard at all In the past year, have you or any family members you live with been unable to get medicine or any health care (medical, dental, mental health, vision) when it was really needed?: No Food Insecurity: No Food Insecurity (02/21/2025) Hunger Screening Food Insecurity - Worry: Never True Food Insecurity - Inability: Never True Transportation Needs: Low Risk (06/17/2024) Received from [facility] Transportation Needs In the past 12 months, has lack of reliable transportation kept you from medical appointments, meetings, work or from getting things needed for daily living?: No Physical Activity: Inactive (06/17/2024) Received from [facility] Exercise Vital Sign Days of Exercise per Week: 0 days Minutes of Exercise per Session: 0 min Stress: Low Risk (06/17/2024) Received from [facility] Stress Stress means a situation in which a person feels tense, restless, nervous, or anxious, or is unable to sleep at night because his or her mind is troubled all the time. Do you feel this kind of stre...: A little bit Social Connections: Low Risk (06/17/2024) Received from [facility] Social Connections If for any reason you need help with activities of daily living such as bathing, preparing meals, shopping, managing finances, etc., do you get the help that you need?: I don't need any help How often do you feel lonely or isolated from those around you?: Rarely Interpersonal Safety: Unknown (12/31/2023) Received from [facility] Safety & Environment Fear of Current or Ex-Partner: Not on file Emotionally Abused: Not on file Physically Abused: Not on file Sexually Abused: Not on file Physically or Sexually Abused: Not on file Housing Instability: Low Risk (06/16/2024) Received from [facility] Housing Stability What is your living situation today?: I have a steady place to live Think about the place you live. Do you have problems with any of the following: Pests such as bugs, ants, or mice, Mold, Lead paint or pipes, Lack of heat, Oven or stove not working, Smoke detector...: None of the above Current Housing Concerns: Not on file Review of Systems Review of Systems Constitutional: Positive for malaise/fatigue. HENT: Negative for nosebleeds. Cardiovascular: Negative for chest pain and palpitations. Vascular: Negative for asymmetric leg edema, claudication, lower extremity wounds or ulcers and varicose veins. Respiratory: Positive for shortness of breath (ON EXERTION). Musculoskeletal: Negative for joint swelling, muscle cramps and muscle weakness. Gastrointestinal: Negative for hematochezia. Genitourinary: Negative for hematuria. Neurological: Negative for dizziness and light-headedness. CARDIOVASCULAR: Please review HPI. Physical Examination General appearance: Alert, oriented and cooperative. In no acute distress. Skin: Warm and dry to touch. Head: Normocephalic, without obvious abnormality, atraumatic. Ears, Nose, Mouth, Throat: Throat clear without erythema or exudate. Dentition intact. Eyes: Conjunctivae unremarkable, EOM intact. Neck: No JVD, No carotid bruit. Neck supple, trachea midline. Respiratory: Clear to auscultation bilaterally, no use of accessory muscles. Cardiovascular: RRR with normal S1 and S2 with no murmurs. Gastrointestinal: Soft, non-tender. Bowel sounds normal. Musculoskeletal: No peripheral edema. Neurologic: Oriented to time, person and place, affect appropriate. No focal/major motor defects noted. Psychiatric: Appropriate mood, memory and judgement. VITAL SIGNS: BP 160/90 Pulse 86 Ht 161.3 cm (5' 3.5 ) Wt 39.5 kg (87 lb) SpO2 98% BMI 15.17 kg/m No orders of the defined types were placed in this encounter. There are no discontinued medications. IMPRESSIONS/PLAN 1. Chronic heart failure with preserved ejection fraction (CMS-HCC) 2. Mixed hyperlipidemia 3. Nonrheumatic mitral valve regurgitation Her cardiac status remains stable. Blood pressures have been well controlled. She will be having evaluation with an executive physical coming up and I would be happy to review any of the cardiac related studies that are done. Follow-up is arranged for 6 months. TODAYS ORDERS No orders of the defined types were placed in this encounter. FOLLOW UP Return in about 6 months (around 10/11/2025). PCP: CIARRA OSEI Referring Physician: CIARRA Osei [id number] [place] [address] documented in this encounter [employer] 03-17-2025 Miscellaneous Notes Prior authorization for Azilect denied. Quick Print Operator to complete Appeal letter. Faxed appeal letter to [facility]. Confirmation fax received. documented in this encounter [facility] 03-17-2025 Telephone encounter Note Prior authorization for Azilect denied. Quick Print Operator to complete Appeal letter. Faxed appeal letter to [facility]. Confirmation fax received. [facility] 03-16-2025 Miscellaneous Notes Received letter that PA for ordered Echo was denied. Appeal is available. Letter made and faxed to appeal dept at: [facility] at [phone] documented in this encounter [facility] 03-16-2025 Telephone encounter Note Received letter that PA for ordered Echo was denied. Appeal is available. Letter made and faxed to appeal dept at: [facility] at [phone] [facility] 03-07-2025 Miscellaneous Notes Quick Print Operator contacted patient per Dr. Silva request regarding her worsening symptoms that patient had reported to her Paralegal Secretary. Patient stated that she is taking her Crexont the way Dr. Silva has prescribed it and that she feels that the timing of the medication taking 1 capsule at 6:30 am and then 1 capsule at 1 pm is a long time in between. Patient stated that at 6:00 pm she feels her medication is wearing off and she would like to have dosing times adjusted. Does she feel like she needs a dose before 1pm as well as needing something around 6pm? If so how much before 1pm? Is she having any hallucinations or otherwise feeling hse has side effects to crexont? Patient stated that she is good from 6:30 am - 1 Pm dose. She said she would like something just at 6 pm sine she has wearing off at that time. Patient denies any side effects and no hallucinations. Ask her to try taking another 1 capsule of crexont at 6pm. I sent a new script to her pharmacy so she will not run out too early from taking 3 caps per day Quick Print Operator contacted patient and reviewed physician's recommendations. Patient verbalized understanding and will contact clinic next week to update on status. documented in this encounter [facility] 03-07-2025 Telephone encounter Note Quick Print Operator contacted patient per Dr. Silva request regarding her worsening symptoms that patient had reported to her Paralegal Secretary. Patient stated that she is taking her Crexont the way Dr. Silva has prescribed it and that she feels that the timing of the medication taking 1 capsule at 6:30 am and then 1 capsule at 1 pm is a long time in between. Patient stated that at 6:00 pm she feels her medication is wearing off and she would like to have dosing times adjusted. [facility] 03-07-2025 Telephone encounter Note Does she feel like she needs a dose before 1pm as well as needing something around 6pm? If so how much before 1pm? Is she having any hallucinations or otherwise feeling hse has side effects to crexont? [facility] 03-07-2025 Telephone encounter Note Patient stated that she is good from 6:30 am - 1 Pm dose. She said she would like something just at 6 pm sine she has wearing off at that time. Patient denies any side effects and no hallucinations. [facility] 03-07-2025 Telephone encounter Note Ask her to try taking another 1 capsule of crexont at 6pm. I sent a new script to her pharmacy so she will not run out too early from taking 3 caps per day [facility] 03-07-2025 Telephone encounter Note Quick Print Operator contacted patient and reviewed physician's recommendations. Patient verbalized understanding and will contact clinic next week to update on status. T [facility] 03-06-2025 History of Present illness Narrative Images from the original note were not included. ADULT RHEUMATOLOGY CLINIC NOTE [id number] [id number] Patient Name: Beena Diaz Subjective Reason for Rheumatology Consultation: fibromyalgia, raynaud's, positive anti-cardiolipin, polyarthritis History of Present Illness: Beena Diaz is a 74 y.o. female who presents as a referral from her PCP for concern of possible inflammatory arthritis. The patient presents to her appointment accompanied by her . She explains that about 5-6 years ago she began to have the insidious onset of hand pain and swelling that involved the right hand and eventually wrist. Over the course of several months to a year she then developed similar symptoms in the left hand and wrist. 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 She also notices discomfort in the bilateral feet as well as the ankles. The patient explains that she was evaluated in the [facility] Rheumatology office for concern of possible inflammatory arthritis. During her time in their office she underwent testing and eventually was give a trial of steroids. The patient notes that the steroid side effects were intolerable and she likely stopped them after a few days or at most one week. The patient does not recall if the steroids significantly helped her arthritis symptoms, but we do note that she was not on them for very long. The patient did not try any other DMARD medications. The patient does also have a history of parkinson's and is following with Neurology (Dr. Silva). She is on several medications directed at parkinson's. She notes prior issue with tendon ruptures in multiple different extremities which was thought to be potentially related to one of her parkinson's medications (possibly azilect?) and she had the dose of this medication reduced and has not had any further ruptures. The patient does not have a history of bowel disease, or inflammatory eye disease. Of note, the patient does have a history of RP but does not endorse digital ulcers. 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 Family Hx: -noncontributory Interval History: The patient presents to the office for a follow up visit. She has been on the 7 pills weekly dosage of MTX for several weeks now. She notes that the methotrexate does seem to be improving her arthritis symptoms in the hands slightly. She has not experienced any significant side effects with MTX. She is still noticing cervical spine and neck discomfort. She underwent cervical spine injections with Dr. Woodall on 02/13/25 and noted that it did seem to provide some benefit. She is still following with Ofelia in the PM&R office and notes that tramadol does seem to be improving her pain symptom along with muscle relaxant medications. The patient did also see Neurosurgery who felt that surgical intervention for her cervical spine findings would not be advisable. She is accompanied by her daughter today who notes that with recent changes to her parkinson's medications there seems to be worsening balance and memory issues for the patient. Review of Systems: CONSTITUTIONAL: Admits: [] Weight Loss [] Fever [] Frequent Night Sweats OPHTHALMOLOGIC: Admits: [] Glaucoma [] History or Current Inflammatory Eye Disease [] Cataracts ENT: Admits: [] Oral/Nasal Ulcers [] epistaxis [] Recurrent Sinusitis [] Dry Eyes [] Dry mouth CARDIOVASCULAR: Admits: [] Chest pain [] Pericarditis/Pleuritis [] Palpitations [] Edema RESPIRATORY: Admits: [] hemoptysis [] Dyspnea on Exertion [] Cough [] Wheezing GASTROINTESTINAL: Admits: [] Bloody Stool [] Diarrhea [] Vomitting GENITOURINARY: Admits: [] Blood in urine [] Genital Ulcers [] Burning/pain with urination MUSCULOSKELETAL: Admits: [x] Muscle Pain [x] Joint Pain INTEGUMENTARY: Admits: [] Skin changes [] Sclerodactyly [] Raynauds [] Photosensitivity [] Alopecia NEUROLOGIC: Admits: [] Recurrent Headaches [] Limb Weakness [] Numbness/Tingling PSYCHIATRIC: Admits: [] Insomnia [] Depression [] Anxiety ENDOCRINE: Admits: [] Thyroid abnormalities HEMATOLOGY/LYMPH: Admits: [] Notable Swollen Lymph Nodes [] History of Cytopenias [] Bruising tendency [] History of DVT/PE All non checked boxes, patient denies. All other 10 point ROS reviewed and negative. Current Outpatient Medications Medication Sig Dispense Refill ALPRAZolam (XANAX) 0.25 mg tablet Take 1 tablet (0.25 mg total) by mouth 3 (three) times a day as needed for anxiety. 12 tablet 3 amantadine (SYMMETREL) 100 mg tablet Take 1-2 tabs at 6am and 1 tab at 12pm PO. 270 tablet 3 ammonium lactate (AMLACTIN) 12 % cream Apply 1 Application topically as needed. calcium carbonate 260 mg calcium (648 mg) tablet Take by mouth. calcium citrate-vitamin D2 250 mg-2.5 mcg (100 unit) per tablet Take 1 tablet by mouth in the morning and 1 tablet before bedtime. carbidopa-levodopa (CREXONT) 70-280 mg capsule,IR -extend rel,biphase Take 1 cap by mouth at 630 am and another 1 cap at 1pm 60 each 11 ciclopirox (LOPROX) 0.77 % cream clonazePAM (KlonoPIN) 0.5 mg tablet Take 3 tablets at bedtime 270 tablet 1 eszopiclone (LUNESTA) 2 mg tablet Take 1 tablet (2 mg total) by mouth nightly. Take immediately before bedtime 90 tablet 1 folic acid (FOLVITE) 1 mg tablet Take 1 tablet (1 mg total) by mouth in the morning. 90 tablet 3 furosemide (LASIX) 20 mg tablet Take 1 tablet (20 mg total) by mouth daily. losartan (COZAAR) 25 mg tablet TAKE 1 TABLET BY MOUTH IN THE MORNING 90 tablet 3 pantoprazole (PROTONIX) 40 mg EC tablet Take 1 tablet (40 mg total) by mouth in the morning. 30 tablet 11 pramipexole (MIRAPEX) 0.25 mg tablet TAKE 1 TABLET BY MOUTH 3 TIMES DAILY 270 tablet 3 rasagiline (AZILECT) 1 mg tablet Take 1 tablet (1 mg total) by mouth every morning. 90 tablet 3 simvastatin (ZOCOR) 40 mg tablet Take 1 tablet (40 mg total) by mouth nightly. 90 tablet 1 tiZANidine (ZANAFLEX) 4 mg capsule Take 1 capsule (4 mg total) by mouth nightly for 90 days. 30 capsule 2 traMADoL (ULTRAM) 50 mg tablet Take 1 tablet (50 mg total) by mouth every 8 (eight) hours as needed for pain. 90 tablet 0 methotrexate 2.5 mg chemo tablet Take 8 tablets by mouth once a week 96 tablet 0 No current facility-administered medications for this visit. reviewed. Patient Active Problem List Diagnosis Chronic bilateral low back pain without sciatica Swelling of right hand Menopause Decreased body height Parkinson's disease ([facility] [facility] Hypertension Mixed hyperlipidemia Lumbar degenerative disc disease Osteoarthritis of facet joint of lumbar spine COPD (chronic obstructive pulmonary disease) ([facility] Tear of right hamstring Right rotator cuff tear arthropathy Livedo reticularis Oral lesion Chronic heart failure with preserved ejection fraction ([facility]) Vasovagal episode Nonrheumatic mitral valve regurgitation Chronic pain syndrome Neck pain, chronic Cervical radiculopathy reviewed. Past Surgical History: Procedure Laterality Date AUGMENTATION MAMMAPLASTY 11/09/2018 silicone COLONOSCOPY 10/20/2015 Rept 10 yrs ESOPHAGOGASTRODUODENOSCOPY with biopsies and dilatioin N/A 05/24/2024 Performed by Colleen Russell MD at [facility] ENDOSCOPY OTHER SURGICAL HISTORY spinal pain shot reviewed. Social History Tobacco Use Smoking status: Former Current packs/day: 0.00 Types: Cigarettes Quit date: 2018 Years since quittin.3 Smokeless tobacco: Never Vaping Use Vaping status: Never Used Substance Use Topics Alcohol use: Yes Alcohol/week: 7.0 standard drinks of alcohol Types: 7 Glasses of wine per week Comment: daily Drug use: No Comment: THC gummies reviewed. Past Medical History: Diagnosis Date Acute on chronic heart failure with preserved ejection fraction ([facility]) 02/20/2022 Anxiety Arthritis Asthma Cellulitis of left lower extremity 02/19/2022 COPD (chronic obstructive pulmonary disease) ([facility]) 03/14/2019 Dyslipidemia Esophageal dysphagia 2023 Heart murmur Hypertension Low back pain Open wound of left lower leg 01/20/2022 Parkinson's disease Sepsis due to Staphylococcus aureus ([facility]) 01/17/2022 Tear of right hamstring 07/03/2020 Visual impairment glasses reviewed. Social History Social History Narrative Not on file reviewed Family History Problem Relation Age of Onset Diabetes Father Heart disease Father CABG at age 65 Colon cancer Neg Hx Anesthesia problems Neg Hx reviewed. Allergies Allergen Reactions Iodinated Contrast Media Itching reviewed. The following portions of the patient's history were reviewed and updated as appropriate: allergies, current medications, past family history, past medical history, past social history, past surgical history and problem list. The following portions of the patient's history were reviewed and updated as appropriate: allergies, current medications, past family history, past medical history, past social history, past surgical history and problem list. Objective Physical Exam: BP 132/82 Pulse 83 Resp 14 Ht 157.5 cm (5' 2 ) Wt 42.2 kg (93 lb) BMI 17.01 kg/m : reviewed GEN: AOx3, NAD EYES: Clear lenses, sclerae white, conjunctiva pink. ENT: External ears normal. Nares and nasal mucosa normal. Normal oral aperture. No oropharyngeal lesions. NECK: supple, no LAD. LUNGS: CTAB. HEART: Regular rhythm, normal S1/S2, no M/R/G. ABD: Soft, non-distended, non-tender. VASC: Ext warm, peripheral pulses 2+, no edema. MSK: Evaluated the large and small joints of the upper and lower extremities including the bilateral shoulders, elbows, wrists, hands, knees, ankles, and feet. Unless otherwise stated below, joints were without deformity, impairment in ROM, warmth, or tenderness to palpation. Pertinent MSK Findings: The patient does have ongoing mild synovitis and tenderness to the bilateral MCPs in the hands. She also has significant discomfort to palpation of the radial aspect of the right wrist. She has some synovitis of the right wrist. She has limited flexion and extension of the wrists bilaterally. She has difficulty in making a closed fist. She has significant swelling of the bilateral 5th PIPs as well (left worse than right). The bilateral knees are without significant effusion. The right ankle has some mild effusion along with tenderness. She has discomfort to palpation of the cervical paraspinal muscles and the lateral neck bilaterally. Palpation of the cervical spine did not produce tenderness. INTEGUMENT: Skin, nails, and hair normal unless otherwise stated below. NEURO: Alert. Sensation intact to soft touch. Normal muscle bulk and strength in trunk and limbs. ROSARIO-28 (If Applicable) There is currently no information documented on the homunculus. Go to the Rheumatology activity and complete the homunculus joint exam. ROSARIO-28 (CRP): -- ROSARIO-28 (ESR): -- Tender (ROSARIO-28): -- Swollen (RSOARIO-28): -- Labs and Imaging: reviewed and discussed with the patient during the visit. General Labs: Lab Results Component Value Date WBC 5.5 02/02/2025 HGB 12.9 02/02/2025 HCT 38.8 02/02/2025 MCV 92 02/02/2025 PLT 220 02/02/2025 Lab Results Component Value Date CREATININE 0.74 02/02/2025 BUN 16 02/02/2025 K 4.0 02/02/2025 CL 99 02/02/2025 CO2 32 02/02/2025 Lab Results Component Value Date ALT 8 02/02/2025 AST 27 02/02/2025 ALKPHOS 66 02/02/2025 Inflammatory Markers Lab Results Component Value Date CRP <0.1 11/29/2024 RA-related Auto-Ab's No results found for: RF PJ & related Labs Lab Results Component Value Date PJ Negative 01/18/2022 ANTIRNP 0.2 11/29/2024 Scleroderma-related Auto-Ab's Lab Results Component Value Date SCL70 <0.2 11/29/2024 JO1 <0.2 11/29/2024 Myositis-related Auto-Ab's Lab Results Component Value Date JO1 <0.2 11/29/2024 APLS-related Auto-Ab's No results found for: DRVVT Vasculitis-related Auto-Ab's No results found for: MYELOPEROXID Imaging / Special Studies Reviewed in EMR. Assessment / Recommendations 1. Inflammatory polyarthritis ([facility]) 2. Seronegative rheumatoid arthritis ([facility]) 3. Medication monitoring encounter 4. Neck pain Overall Impression: Beena Diaz is a 74 y.o. female patient with a several year history of polyarthritis most notably in the bilateral hands and wrists but also affecting her ankles and feet. Based on the patient's initial history, ROS, and exam, I had concern for possible inflammatory arthritis. We pursued additional serological testing and requested her outside records. We noted that her ESR was elevated but other autoimmune serologies were wnl. Given her intolerance to oral steroids and her ongoing evidence of active synovitis and joint pain/tenderness in the small joints of the hands and feet, we proceeded with initiation of MTX at her last visit. She has noted some minor improvement of hand arthritis. But more notably she has had significant discomfort in the neck and upper back. We will continue to slowly increase MTX at this time. She is working with PM&R to help manage her cervical spine and neck issues. Recommendations: Labs, Imaging, Special Studies: Orders Placed This Encounter Procedures C-reactive protein Standing Status: Future Expiration Date: 03/06/2026 Release to patient via [employer] Network[employer]?: Immediate [1] Erythrocyte Sedimentation Rate (ESR) Standing Status: Future Expiration Date: 03/06/2026 Release to patient via [employer]?: Immediate [1] Liver panel Standing Status: Future Expiration Date: 03/06/2026 Release to patient via [employer]?: Immediate [1] CBC auto differential Standing Status: Future Expiration Date: 03/06/2026 Release to patient via [employer]?: Immediate [1] Creatinine includes GFR, serum Standing Status: Future Expiration Date: 03/06/2026 Release to patient via [employer] Network[employer]?: Immediate [1] -we will proceed with med monitoring labs every 3 months --- next set of labs around the last week of April or week of May Treatment Plan: -increase MTX to 8 pills weekly -continue 1 mg daily folic acid -communicated with PM&R provider (Ofelia Pierce CNP) via [employer] secure chat to let her know that the patient found benefit from tramadol but would like to be given a more consistent supply of the medication so she can avoid going to the pharmacy frequently -communicated with her Neurology provider via [employer] secure chat given the patient and her daughters concerns about side effects/worsening symptoms after switching to Crexont Consults/Referrals: -No new referrals at this time Health Maintenance: -The patient should continue to follow with their PCP for age and risk factor appropriate cancer screening and immunizations. Follow-up: -3 months Mariajose Clemente MD, MPH [facility] [address] [place] [address] Total [id number] time was 45 minutes with more than 50% of the visit spent counseling and discussing diagnostic or treatment recommendations, prognosis, risks and benefits of management options, instructions, compliance or risk-factor reduction. This note was created with the assistance of a speech recognition program. While intending to generate a timely document that accurately reflects the content of the visit, no guarantee can be provided that every grammatical or spelling mistake has been or will be identified or corrected. Thank you for your understanding. documented in this encounter [facility] 03-06-2025 Instructions Mariajose Clemente MD MPH - 03/06/2025 12:00 PM EDT Medication Instructions: -Please increase methotrexate to 8 pills once weekly -Continue to take 1 mg of daily folic acid -We will plan to have you update your blood work at the end of April or first week of May. Lab orders are already in your chart. documented in this encounter [facility] 02-28-2025 Miscellaneous Notes Prior authorization initiated for Azilect 1 mg tablet with [place]: [email or web address]. Quick Print Operator to initiate an appeal for the medication Azilect 1 mg tablet. Appeal letter faxed to [employer]. Confirmation fax received. [facility]-28-2025 Telephone encounter Note Prior authorization initiated for Azilect 1 mg tablet with [place]: [email or web address]. [facility] 02-28-2025 Telephone encounter Note Quick Print Operator to initiate an appeal for the medication Azilect 1 mg tablet. Appeal letter faxed to [employer]. Confirmation fax received. [facility]-21-2025 History of Present illness Narrative Images from the original note were not included. SUBJECTIVE: Beena Diaz is a 74 y.o. female who presents to clinic today for an annual physical. Concerned for possible left breast implant rupture, noticed a new lump two weeks ago. Review of Systems Constitutional: Negative for chills and fever. HENT: Positive for trouble swallowing. Negative for congestion, ear pain and sore throat. Eyes: Negative for pain and visual disturbance. Respiratory: Negative for cough and shortness of breath. Cardiovascular: Negative for chest pain and palpitations. Gastrointestinal: Negative for abdominal pain, nausea and vomiting. Genitourinary: Negative for difficulty urinating and hematuria. Musculoskeletal: Positive for gait problem. Negative for arthralgias and myalgias. Skin: Negative for color change and rash. Neurological: Positive for tremors. Negative for weakness, numbness and headaches. Hematological: Negative for adenopathy. Does not bruise/bleed easily. Psychiatric/Behavioral: Negative for dysphoric mood. The patient is not nervous/anxious. The patients medical history was reviewed and discussed. Please see the remainder of the chart for complete details. Past Medical History: Diagnosis Date Acute on chronic heart failure with preserved ejection fraction ([facility]) 02/20/2022 Anxiety Arthritis Asthma Cellulitis of left lower extremity 02/19/2022 COPD (chronic obstructive pulmonary disease) ([facility]) 03/14/2019 Dyslipidemia Esophageal dysphagia 2023 Heart murmur Hypertension Low back pain Open wound of left lower leg 01/20/2022 Parkinson's disease Sepsis due to Staphylococcus aureus ([facility]) 01/17/2022 Tear of right hamstring 07/03/2020 Visual impairment glasses Past Surgical History: Procedure Laterality Date AUGMENTATION MAMMAPLASTY 11/09/2018 silicone COLONOSCOPY 10/20/2015 Rept 10 yrs ESOPHAGOGASTRODUODENOSCOPY with biopsies and dilatioin N/A 05/24/2024 Performed by Colleen Russell MD at [facility] OTHER SURGICAL HISTORY spinal pain shot Family History Problem Relation Age of Onset Diabetes Father Heart disease Father CABG at age 65 Colon cancer Neg Hx Anesthesia problems Neg Hx Social History Occupational History Not on file Tobacco Use Smoking status: Former Current packs/day: 0.00 Types: Cigarettes Quit date: 2017 Years since quittin.2 Smokeless tobacco: Never Vaping Use Vaping status: Never Used Substance and Sexual Activity Alcohol use: Yes Alcohol/week: 7.0 standard drinks of alcohol Types: 7 Glasses of wine per week Comment: daily Drug use: No Comment: THC gummies Sexual activity: Not Currently Partners: Male Outpatient Medications Prior to Visit Medication Sig Dispense Refill ALPRAZolam (XANAX) 0.25 mg tablet Take 1 tablet (0.25 mg total) by mouth 3 (three) times a day as needed for anxiety. 12 tablet 3 amantadine (SYMMETREL) 100 mg tablet Take 1-2 tabs at 6am and 1 tab at 12pm PO. 270 tablet 3 ammonium lactate (AMLACTIN) 12 % cream Apply 1 Application topically as needed. calcium carbonate 260 mg calcium (648 mg) tablet Take by mouth. calcium citrate-vitamin D2 250 mg-2.5 mcg (100 unit) per tablet Take 1 tablet by mouth in the morning and 1 tablet before bedtime. carbidopa-levodopa (CREXONT) 70-280 mg capsule,IR -extend rel,biphase Take 1 cap by mouth at 630 am and another 1 cap at 1pm 60 each 11 ciclopirox (LOPROX) 0.77 % cream clonazePAM (KlonoPIN) 0.5 mg tablet Take 3 tablets at bedtime 270 tablet 1 eszopiclone (LUNESTA) 2 mg tablet Take 1 tablet (2 mg total) by mouth nightly. Take immediately before bedtime 90 tablet 1 folic acid (FOLVITE) 1 mg tablet Take 1 tablet (1 mg total) by mouth in the morning. 90 tablet 3 furosemide (LASIX) 20 mg tablet Take 1 tablet (20 mg total) by mouth daily. losartan (COZAAR) 25 mg tablet TAKE 1 TABLET BY MOUTH IN THE MORNING 90 tablet 3 methotrexate 2.5 mg chemo tablet Take 7 tablets by mouth once a week 84 tablet 0 pantoprazole (PROTONIX) 40 mg EC tablet Take 1 tablet (40 mg total) by mouth in the morning. 30 tablet 11 pramipexole (MIRAPEX) 0.25 mg tablet TAKE 1 TABLET BY MOUTH 3 TIMES DAILY 270 tablet 3 rasagiline (AZILECT) 1 mg tablet Take 1 tablet (1 mg total) by mouth every morning. 90 tablet 3 simvastatin (ZOCOR) 40 mg tablet Take 1 tablet (40 mg total) by mouth nightly. 90 tablet 1 tiZANidine (ZANAFLEX) 4 mg capsule Take 1 capsule (4 mg total) by mouth nightly for 90 days. 30 capsule 2 traMADoL (ULTRAM) 50 mg tablet Take 1 tablet (50 mg total) by mouth every 8 (eight) hours as needed for pain. 90 tablet 0 aspirin 81 mg Take 1 tablet (81 mg total) by mouth once. (Patient not taking: Reported on 10/20/2024) No facility-administered medications prior to visit. Allergies Allergen Reactions Iodinated Contrast Media Itching Preventative Services: Last PAP smear: Not applicable Last Mammogram: UTD 11/04/2024 DEXA scan: UTD 02/09/2025 CV Risk Assessment: LDL goal is under 100 Current ASCVD risk ASA for primary/secondary prevention CV disease: Not applicable Colon Cancer screening: UTD 10/29/2015, repeat in 10 years Skin Cancer screening: Follows with Derm Hepatitis C Screening: UTD Last Eye Exam: UTD Last Dental Visit: UTD Exercising regularly? Yes Current smoker?: No Tdap: UTD Functional Ability Screen: No assistance needed with ADLs No safety concerns at home Vaccines: Immunization History Administered Date(s) Administered COVID-19, mRNA, LNP-S, PF, 100mcg/0.5mL Dose 12/22/2020, 01/19/2021, 09/13/2021 Covid-19, Mrna, Lnp-s, Bivalent, Pf, 30mcg/0.3 ml 11/14/2022 Influenza (IM) Preservative Free 12/02/2013 Influenza Vaccine, Quadrivalent, Adjuvanted 10/24/2021 Influenza, High-dose, Quadrivalent 08/27/2020 Influenza, Im Trivalent Preservative 09/28/2015 Influenza, Injectable, Quadrivalent 08/26/2016, 09/15/2017 Influenza, Injectable, quadrivalent (PF) 09/15/2019, 11/14/2022 Pneumococcal Conjugate 13-Valent 03/15/2020 Pneumococcal Polysaccharide 09/15/2017, 12/23/2018 Tdap 01/30/2011, 07/25/2021 Zoster Live 02/09/2015 Zoster Vaccine Recombinant 10/24/2021, 12/25/2021 Patient Care Team: Brenden Caba APRN-JONEL as PCP - General Lilia Cortez MD as Consulting Physician (Dermatology) Trice Silva MD as Referring Physician (Neurology) Noreen Butler MD as Referring Physician (Anesthesiology) Cee Malcolm MD as Consulting Physician (Cardiology) OBJECTIVE: Blood pressure 132/78, pulse 89, height 157.5 cm (5' 2 ), weight 41.3 kg (91 lb), SpO2 96%. Body mass index is 16.64 kg/m . Physical Exam Vitals and nursing note reviewed. Exam conducted with a stiff neck loader present. Constitutional: Appearance: She is well-developed. HENT: Head: Normocephalic and atraumatic. Right Ear: Tympanic membrane, ear canal and external ear normal. Left Ear: Tympanic membrane, ear canal and external ear normal. Nose: Nose normal. Mouth/Throat: Mouth: Mucous membranes are moist. Dentition: Normal dentition. Pharynx: Oropharynx is clear. Uvula midline. Eyes: Extraocular Movements: Extraocular movements intact. Conjunctiva/sclera: Conjunctivae normal. Pupils: Pupils are equal, round, and reactive to light. Neck: Thyroid: No thyromegaly. Vascular: No carotid bruit. Trachea: Trachea normal. Cardiovascular: Rate and Rhythm: Normal rate and regular rhythm. Pulses: Normal pulses. Dorsalis pedis pulses are 2+ on the right side and 2+ on the left side. Posterior tibial pulses are 2+ on the right side and 2+ on the left side. Heart sounds: S1 normal and S2 normal. Murmur heard. Systolic murmur is present with a grade of 3/6. Pulmonary: Effort: Pulmonary effort is normal. Breath sounds: Normal breath sounds. Chest: Abdominal: General: Bowel sounds are normal. Palpations: Abdomen is soft. Musculoskeletal: Cervical back: Normal range of motion and neck supple. Lymphadenopathy: Cervical: No cervical adenopathy. Upper Body: Right upper body: No supraclavicular adenopathy. Left upper body: No supraclavicular adenopathy. Skin: General: Skin is warm and dry. Coloration: Skin is not cyanotic. Findings: No erythema or rash. Nails: There is no clubbing. Neurological: Mental Status: She is alert and oriented to person, place, and time. Cranial Nerves: No cranial nerve deficit. Sensory: Sensation is intact. Motor: Tremor present. Coordination: Coordination is intact. Gait: Gait abnormal. Deep Tendon Reflexes: Reflexes are normal and symmetric. Psychiatric: Attention and Perception: Attention normal. Mood and Affect: Mood and affect normal. Speech: Speech normal. Behavior: Behavior normal. Studies: Hospital Outpatient Visit on 02/02/2025 Component Date Value Ref Range Status White Blood Cells 02/02/2025 5.5 4.0 - 11.0 X10E9/L Final RBC count 02/02/2025 4.20 3.80 - 5.20 X10E12/L Final Hemoglobin 02/02/2025 12.9 11.7 - 15.5 g/dL Final Hematocrit 02/02/2025 38.8 35 - 47 % Final MCV 02/02/2025 92 80 - 100 fL Final MCH 02/02/2025 30.8 27 - 34 pg Final MCHC 02/02/2025 33.3 32 - 36 g/dL Final RDW 02/02/2025 15.7 (H) 11.5 - 15.0 % Final Platelets 02/02/2025 220 150 - 450 X10E9/L Final MPV 02/02/2025 9.5 7 - 12 fL Final % neutrophils 02/02/2025 61.2 % Final % lymphocytes 02/02/2025 24.9 % Final % monocytes 02/02/2025 8.9 % Final % eosinophils 02/02/2025 4.7 % Final % Basophils 02/02/2025 0.3 % Final Neutrophils Absolute (A) 02/02/2025 3.4 1.5 - 6.6 X10E9/L Final Lymphocytes Absolute 02/02/2025 1.4 1.0 - 3.5 X10E9/L Final Monocytes Absolute 02/02/2025 0.5 0 - 0.9 X10E9/L Final Eosinophils Absolute 02/02/2025 0.3 0.0 - 0.4 X10E9/L Final Basophils Absolute 02/02/2025 0.0 0.0 - 0.2 X10E9/L Final Sodium 02/02/2025 139 134 - 146 mmol/L Final Potassium, Bld 02/02/2025 4.0 3.5 - 5.0 mmol/L Final Chloride 02/02/2025 99 98 - 109 mmol/L Final CO2 02/02/2025 32 22 - 32 mmol/L Final Anion gap 02/02/2025 8 5 - 15 mmol/L Final BUN 02/02/2025 16 5 - 27 mg/dL Final Creatinine 02/02/2025 0.74 0.40 - 1.00 mg/dL Final METHOD TRACEABLE TO IDMS STANDARD Glucose 02/02/2025 88 65 - 99 mg/dL Final Calcium 02/02/2025 9.7 8.5 - 10.5 mg/dL Final Total Protein 02/02/2025 7.2 6.0 - 8.0 g/dL Final Albumin 02/02/2025 4.5 3.2 - 5.3 g/dL Final Alkaline Phosphatase 02/02/2025 66 39 - 130 U/L Final AST 02/02/2025 27 0 - 41 U/L Final ALT 02/02/2025 8 0 - 31 U/L Final Total bilirubin 02/02/2025 1.7 (H) 0.3 - 1.2 mg/dL Final eGFR (CKD-EPI)non-race dependent 02/02/2025 85 >59 ml/min/1.73sq.m Final Comment: Reported eGFR is based on the CKD-EPI 2020 equation that does not use a race coefficient. Cholesterol 02/02/2025 154 150 - 200 mg/dL Final Triglycerides 02/02/2025 54 27 - 150 mg/dL Final HDL Cholesterol 02/02/2025 79 >39 mg/dL Final Comment: HDL <40 mg/dL - High Risk HDL > or = 40mg/dL- Desirable HDL >60 mg/dL - Negative Risk VLDL 02/02/2025 11 0 - 30 mg/dL Final LDL (calc) 02/02/2025 64 <130 mg/dL Final Comment: LDL <100 mg/dL - Desirable LDL >160 mg/dL - High Risk Cholesterol:HDL Ratio 02/02/2025 1.9 1.0 - 5.0 Final Color 02/02/2025 YELLOW YELLOW^YELLOW Final Turbidity 02/02/2025 CLEAR CLEAR^CLEAR Final Specific gravity 02/02/2025 1.022 1.003 - 1.035 Final Nitrite 02/02/2025 Negative Negative^Negative Final Ph urine 02/02/2025 7.0 5.0 - 8.5 Final Leukocyte esterase 02/02/2025 Negative Negative^Negative Final Protein 02/02/2025 Trace (A) Negative^Negative mg/dL Final Glucose, Ur 02/02/2025 Negative Negative^Negative mg/dL Final Ketones urine 02/02/2025 Negative Negative^Negative mg/dL Final Urobilinogen 02/02/2025 <1.1 <1.1 eu/dL Final Bilirubin, urine 02/02/2025 Negative Negative^Negative Final Hemoglobin 02/02/2025 Negative Negative^Negative Final Mucus, UA 02/02/2025 PRESENT (A) NONE^NONE Final RBC 02/02/2025 <1 0 - 5 /hpf Final Squamous epithelium 02/02/2025 1 0 - 5 /hpf Final WBC 02/02/2025 1 0 - 5 /hpf Final Hospital Outpatient Visit on 11/29/2024 Component Date Value Ref Range Status Sed Rate 11/29/2024 48 (H) 0 - 30 mm/h Final CRP 11/29/2024 <0.1 0.000 - 0.744 mg/dL Final Rheumatoid factor 11/29/2024 <10 <20 IU/mL Final CCP IgG Antibodies 11/29/2024 <0.5 <3.0 U/ML Final Comment: Interpretation-------- <3 Negative >=3 Positive Antinuclear Ab, HEp-2 Substrate, S 11/29/2024 <1:80 (Negative) <1:80 (Negative) Final Comment: NOTE ADDITIONAL INFORMATION Method: Immunofluorescence using HEp-2 cellular substrate. Test Performed by: [place] [address] Marketing Research Analyst: Sam Dukes Ph.D.; CLIA# [id number] Ss-a/ro antibodies IgG 11/29/2024 <0.2 <1.0 AI Final Ss-b/la antibodies IgG 11/29/2024 <0.2 <1.0 AI Final Anti-zapata AB IgG 11/29/2024 <0.2 <1.0 AI Final Anti POWER HAIR CLIPPER 11/29/2024 0.2 <1.0 AI Final Scleroderma scl-70 11/29/2024 <0.2 <1.0 AI Final Anti DENIS-1 11/29/2024 <0.2 <1.0 AI Final dsDNA Ab by [facility] IFA, IgG, S 11/29/2024 Negative Negative Final [facility] Interpretation 11/29/2024 See Note Final Comment: NOTE Testing for dsDNA antibody by [facility] IFA was negative. Test Performed by: [place] [address] Marketing Research Analyst: Sam Dukes Ph.D.; CLIA# [id number] QuantiFERON-Tb Gold Plus Result 11/29/2024 Indeterminate (A) Negative Final Comment: NOTE Indeterminate due to a low interferon-gamma level in the mitogen (positive control) tube. This may occur due to a low lymphocyte count, reduced lymphocyte activity or inability of the patient's lymphocytes to generate interferon-gamma. The reference range for the 'Mitogen minus Nil Result' is >=0.5 IU/mL. TB1 Ag minus Nil Result 11/29/2024 0.01 IU/mL Final TB2 Ag minus Nil Result 11/29/2024 0.01 IU/mL Final Mitogen minus Nil Result 11/29/2024 0.00 IU/mL Final Nil Result 11/29/2024 0.01 IU/mL Final Comment: NOTE Test Performed by: [facility] [address] [place] [address] Marketing Research Analyst: Sam Dukes Ph.D.; CLIA# [id number] Hepatitis B Surface Ag 11/29/2024 Non-Reactive Non-Reactive^Non-Reactive Final NEW TEST METHOD Hep B Core IgM Ab 11/29/2024 Non-Reactive Non-Reactive^Non-Reactive Final NEW TEST METHOD Hep A IgM Ab 11/29/2024 Non-Reactive Non-Reactive^Non-Reactive Final NEW TEST METHOD Anti HCV w/ PCR reflex 11/29/2024 Non-Reactive Non-Reactive^Non-Reactive Final Comment: NEW TEST METHOD NOTE If recent infection suspected, recommend repeat testing (>2 months). Bzohee-[id number]-xbqyrf ratio is <1.00. White Blood Cells 11/29/2024 5.7 4.0 - 11.0 X10E9/L Final RBC count 11/29/2024 4.28 3.80 - 5.20 X10E12/L Final Hemoglobin 11/29/2024 12.8 11.7 - 15.5 g/dL Final Hematocrit 11/29/2024 38.1 35 - 47 % Final MCV 11/29/2024 89 80 - 100 fL Final MCH 11/29/2024 29.9 27 - 34 pg Final MCHC 11/29/2024 33.6 32 - 36 g/dL Final RDW 11/29/2024 15.1 (H) 11.5 - 15.0 % Final Platelets 11/29/2024 213 150 - 450 X10E9/L Final MPV 11/29/2024 9.4 7 - 12 fL Final % neutrophils 11/29/2024 50.2 % Final % lymphocytes 11/29/2024 32.8 % Final % monocytes 11/29/2024 10.7 % Final % eosinophils 11/29/2024 5.6 % Final % Basophils 11/29/2024 0.7 % Final Neutrophils Absolute (A) 11/29/2024 2.8 1.5 - 6.6 X10E9/L Final Lymphocytes Absolute 11/29/2024 1.9 1.0 - 3.5 X10E9/L Final Monocytes Absolute 11/29/2024 0.6 0 - 0.9 X10E9/L Final Eosinophils Absolute 11/29/2024 0.3 0.0 - 0.4 X10E9/L Final Basophils Absolute 11/29/2024 0.0 0.0 - 0.2 X10E9/L Final Creatinine 11/29/2024 0.82 0.40 - 1.00 mg/dL Final METHOD TRACEABLE TO [facility] STANDARD eGFR (CKD-EPI)non-race dependent 11/29/2024 75 >59 ml/min/1.73sq.m Final Comment: Reported eGFR is based on the CKD-EPI 2020 equation that does not use a race coefficient. Alkaline phosphatase 11/29/2024 66 39 - 130 U/L Final AST 11/29/2024 26 0 - 41 U/L Final ALT 11/29/2024 14 0 - 31 U/L Final Total Bilirubin 11/29/2024 0.9 0.3 - 1.2 mg/dL Final Bilirubin, direct 11/29/2024 0.2 0.0 - 0.4 mg/dL Final Albumin 11/29/2024 4.5 3.2 - 5.3 g/dL Final Total Protein 11/29/2024 7.4 6.0 - 8.0 g/dL Final ASSESSMENT/PLAN: Beena was seen today for annual exam. Diagnoses and all orders for this visit: Health care maintenance Primary hypertension Chronic heart failure with preserved ejection fraction ([facility]) Chronic obstructive pulmonary disease, unspecified COPD type (CMS-HCC) Parkinson's disease ([facility]-HCC) Mixed hyperlipidemia Complication associated with silicone gel-filled breast implant - MR bilateral breast with and without contrast with CAD; Future Concern for change in appearance of left breast implant, beena noticed two weeks ago. Breast MRI ordered. Follows with Dr. Menendez, cardiology. Follows with Dr. Silva, neurology. Follows with [facility], Rheumatology. Follows with Dr. Woodall and Ofelia Pierce, [facility], PM&R. Patient noted to have low BMI and the following intervention(s) were applied: weight gain advised. Return for follow up in six months. Patient Instructions Breast MRI Medicare Available Services Admin of Pneumococcal Vaccine: Up-to-date Admin of influenza vaccine: Up-to-date Admin of Hep B vaccine: Not applicable AAA ultrasound screening: Not applicable Screening mammography: Up-to-date Screening pap and pelvic exam: Not applicable Prostate cancer screening: Not applicable Colorectal cancer screening tests: Up-to-date DM outpatient self management training services: Not applicable Bone mass measurements: Up-to-date Screening for glaucoma: Up-to-date Cardiovascular screening blood tests: Completed DM screening blood tests: Completed Smoking cessation counseling: Not applicable Counseling to prevent tobacco use: Not applicable Screening/counseling to reduce alcohol misuse: Completed Behavioral therapy for obesity: Not applicable STI infection screening and behavioral counseling: Not applicable Medical nutrition therapy services for DM: Not applicable Medical nutrition therapy services: Not applicable Counseling: Appropriate immunizations were discussed, including risks and benefits of each. With those given can be noted in the chart, otherwise they were refused or not indicated. Lifestyle modifications were discussed, these include dietary changes and exercise specific for any comorbidities. Skin cancer prevention was discussed. Encouraged continued follow-up with all specialists. Risks, benefits, and alternatives to all new medications, if prescribed, were discussed with patient. The patient was instructed to continue all other medications as prescribed. Follow up with specialists as advised, if applicable. The patient was counseled regarding assessments, instructions for management, importance of compliance with treatment and risk factor reductions. [facility] Osei 02/23/25 1224 documented in this encounter [facility] 02-21-2025 Instructions CIARRA Osei - 02/21/2025 10:00 AM EDT Breast MRI Medicare Available Services Admin of Pneumococcal Vaccine: Up-to-date Admin of influenza vaccine: Up-to-date Admin of Hep B vaccine: Not applicable AAA ultrasound screening: Not applicable Screening mammography: Up-to-date Screening pap and pelvic exam: Not applicable Prostate cancer screening: Not applicable Colorectal cancer screening tests: Up-to-date DM outpatient self management training services: Not applicable Bone mass measurements: Up-to-date Screening for glaucoma: Up-to-date Cardiovascular screening blood tests: Completed DM screening blood tests: Completed Smoking cessation counseling: Not applicable Counseling to prevent tobacco use: Not applicable Screening/counseling to reduce alcohol misuse: Completed Behavioral therapy for obesity: Not applicable STI infection screening and behavioral counseling: Not applicable Medical nutrition therapy services for DM: Not applicable Medical nutrition therapy services: Not applicable documented in this encounter [facility] 02-13-2025 History of Present illness Narrative CERVICAL SPINE TRANSFORAMINAL EPIDURAL INJECTION All of the potential risks of the planned procedure was discussed with Beena today. These include, but are not limited to, bleeding (including epidural hematoma, in the case of epidural injections); infection; spinal headache due to dural puncture; and allergic reaction. In the case of steroid use an increase in blood sugar or hyperglycemia may occur (especially in diabetic patients). Fluid retention, elevated blood pressure, facial flushing are also potential side effects with steroid use. Beena reported understanding of these potential side effects and did consent to the procedure as planned. Beena did sign the informed consent in my presence and is willing to proceed with the above-mentioned procedure today. Pre-procdure Dx: 1. Cervical radiculopathy Post-procedure Dx: 1. Cervical radiculopathy Date of Procedure: February 13, 2025 Time of Procedure: 1:12 PM PROCEDURE: 1) Left C3-4 Interspace Transforaminal Epidural Injection 2) Fluoroscopic needle guidance REASON FOR PROCEDURE: Neck pain with radicular symptoms PHYSICIAN: Isidro Woodall, MEDICATIONS INJECTED: 10mg Dexamethasone + 0.3 ml of lidocaine preservative free per level 0.8ml Omnipaque SEDATION: None LOCAL ANESTHETIC INJECTED: None TECHNIQUE: Time-out was taken to identify the correct patient, procedure and side prior to starting the procedure. Lying in a supine position, the patient was prepped and draped in the usual sterile fashion using ChloraPrep and a fenestrated drape. The area to be injected was determined under fluoroscopic guidance. On an ipsilateral oblique view, with optimal visualization of the neural foramen, the 2.5-inch 25-gauge Quincke needle was advanced toward the superior articular process just posterior to the foramen with the above-named nerve roots. The needle was then walked off anterior until it laid in the posterior foramen. Omnipaque was injected under live fluoroscopic guidance to show epidural spread and to confirm no vascular runoff. Following this, 1% lidocaine was injected under live fluoroscopy which again confirmed epidural spread and no vascular uptake. The patient was monitored for 30-60 seconds following lidocaine injection, after note best affects her noted dexamethasone was administered under live fluoroscopy Images were obtained and saved in multiple views including pre- and post-injection ESTIMATED BLOOD LOSS: None COMPLICATIONS: None She was instructed to await the effects of the steroid over the next several days, patient was given post injection instructions, to continue with physical therapy as tolerated after 48hours [facility] Instructions Rosy Freed RN - 02/13/2025 1:12 PM EDT EPIDURAL STEROID INJECTION DISCHARGE INSTRUCTIONS: You have received an epidural steroid injection (EZEKIEL). Steroids are used to reduce inflammation and fluid buildup in your spine that may be causing pain. Steroid injections alone will not control your pain. The injections are meant to be used along with other treatments. Contents of the injection: The injection consisted of two medications: Steroid, a Corticosteroid, which is an anti-inflammatory that may take 10-14 days to start reaching it's full benefit, you could start to feel a benefit after 2-4 days. Lidocaine, a numbing agent that will last 2 - 4 hours. Once lidocaine wears off, you may experience an increase in your pain. POST INJECTION INSTRUCTIONS: A responsible adult must be present to drive you home after the procedure. It is unsafe for you to drive or operate heavy machinery after the procedure. Get up slowly and walk carefully, you may experience mild leg weakness the day of your injection. Avoid strenuous activity for 48 hours. Avoid lifting heavy objects (no more than 20 pounds) for 48 hours after the procedure. Do not swim, bathe, or soak in water for 48 hours after the injection (showering is allowed). To help with soreness we strongly encourage icing the affected area for 20 minutes at a time, several times throughout the day. If a bandage was placed, you may remove it after several hours / before going to bed. Continue taking all of your prescribed medication as directed. If you withheld medications prior to the injection, resume medication as recommended by your physician. POSSIBLE SIDE EFFECTS Skin discoloration: Individuals may experience some skin discoloration locally at the site of injection. Steroid flare-up : There is the possibility of an increase in discomfort within 48 hours following the injection. This is called steroid flare. To help avoid this, adhere to the activity restriction mentioned above. Use ice as recommended above. Use mild pain reliever per directions and as appropriate. Steroid Flush: Flushing of the face or chest. Flushing will typically subside within 48 to 72 hours. You may take diphenhydramine (Benadryl), loratadine (Claritin), or fexofenadine (Carol) as needed to relieve facial flushing, unless allergic to or told not to take. Follow directions on the package labeling. Infection: There is less than a 1% chance of infection. If you notice any signs of infection (redness, warmth, drainage, chills, fever greater than 100.4 ) please call Physical Medicine and Rehabilitation office immediately at [phone]. Diabetic Patients: In the case of steroid use, an increase in blood sugar or hyperglycemia may occur. Please monitor your blood sugar closely for the next few days. If your blood sugar becomes significantly elevated please contact the physician that helps you manage your diabetes or seek immediate medical attention. WHEN TO CONTACT THE DOCTOR'S OFFICE Any sign of infection, which may include: redness, swelling, or drainage at the injection site, fever,chills, area is sensitive or warm to the touch. Significant increase in pain / more pain than you had prior to the procedure. Excessive bruising, bleeding or swelling at the injection site. Experience a persistent headache that cannot be relieved by usual pain medications and rest. You have questions or concerns about your condition or care. WHEN TO SEEK IMMEDIATE MEDICAL ATTENTION Blood soaks through your bandage. Any signs of an allergic reaction, which may include: itching, hives, severe vomiting, swelling of face, lips or tongue,difficulty breathing. Experience difficulty speaking or have a facial droop. You have trouble moving your legs. Have persistent numbness, tingling, or weakness in your arms or legs that continues to worsen. Loss of bowel or bladder control. [facility] History of Present illness Narrative CERVICAL SPINE TRANSFORAMINAL EPIDURAL INJECTION All of the potential risks of the planned procedure was discussed with Beena today. These include, but are not limited to, bleeding (including epidural hematoma, in the case of epidural injections); infection; spinal headache due to dural puncture; and allergic reaction. In the case of steroid use an increase in blood sugar or hyperglycemia may occur (especially in diabetic patients). Fluid retention, elevated blood pressure, facial flushing are also potential side effects with steroid use. Beena reported understanding of these potential side effects and did consent to the procedure as planned. Beena did sign the informed consent in my presence and is willing to proceed with the above-mentioned procedure today. Pre-procdure Dx: 1. Cervical radiculopathy Post-procedure Dx: 1. Cervical radiculopathy Date of Procedure: January 30, 2025 Time of Procedure: 2:09 PM PROCEDURE: 1) Right C3-4 Interspace Transforaminal Epidural Injection 2) Fluoroscopic needle guidance REASON FOR PROCEDURE: Neck pain with radicular symptoms PHYSICIAN: Isidro Woodall DO MEDICATIONS INJECTED: 10mg Dexamethasone + 0.3 ml of lidocaine preservative free per level 0.6ml Omnipaque SEDATION: None LOCAL ANESTHETIC INJECTED: None TECHNIQUE: Time-out was taken to identify the correct patient, procedure and side prior to starting the procedure. Lying in a supine position, the patient was prepped and draped in the usual sterile fashion using ChloraPrep and a fenestrated drape. The area to be injected was determined under fluoroscopic guidance. On an ipsilateral oblique view, with optimal visualization of the neural foramen, the 2.5-inch 25-gauge Quincke needle was advanced toward the superior articular process just posterior to the foramen with the above-named nerve roots. The needle was then walked off anterior until it laid in the posterior foramen. Omnipaque was injected under live fluoroscopic guidance to show epidural spread and to confirm no vascular runoff. Following this, 1% lidocaine was injected under live fluoroscopy which again confirmed epidural spread and no vascular uptake. The patient was monitored for 30-60 seconds following lidocaine injection, after note best affects her noted dexamethasone was administered under live fluoroscopy Images were obtained and saved in multiple views including pre- and post-injection ESTIMATED BLOOD LOSS: None COMPLICATIONS: None She was instructed to await the effects of the steroid over the next several days, patient was given post injection instructions, to continue with physical therapy as tolerated after 48hours documented in this encounter [facility] 01-30-2025 Instructions Rsoy Freed RN - 01/30/2025 2:09 PM EDT EPIDURAL STEROID INJECTION DISCHARGE INSTRUCTIONS: You have received an epidural steroid injection (EZEKIEL). Steroids are used to reduce inflammation and fluid buildup in your spine that may be causing pain. Steroid injections alone will not control your pain. The injections are meant to be used along with other treatments. Contents of the injection: The injection consisted of two medications: Steroid, a Corticosteroid, which is an anti-inflammatory that may take 10-14 days to start reaching it's full benefit, you could start to feel a benefit after 2-4 days. Lidocaine, a numbing agent that will last 2 - 4 hours. Once lidocaine wears off, you may experience an increase in your pain. POST INJECTION INSTRUCTIONS: A responsible adult must be present to drive you home after the procedure. It is unsafe for you to drive or operate heavy machinery after the procedure. Get up slowly and walk carefully, you may experience mild leg weakness the day of your injection. Avoid strenuous activity for 48 hours. Avoid lifting heavy objects (no more than 20 pounds) for 48 hours after the procedure. Do not swim, bathe, or soak in water for 48 hours after the injection (showering is allowed). To help with soreness we strongly encourage icing the affected area for 20 minutes at a time, several times throughout the day. If a bandage was placed, you may remove it after several hours / before going to bed. Continue taking all of your prescribed medication as directed. If you withheld medications prior to the injection, resume medication as recommended by your physician. POSSIBLE SIDE EFFECTS Skin discoloration: Individuals may experience some skin discoloration locally at the site of injection. Steroid flare-up : There is the possibility of an increase in discomfort within 48 hours following the injection. This is called steroid flare. To help avoid this, adhere to the activity restriction mentioned above. Use ice as recommended above. Use mild pain reliever per directions and as appropriate. Steroid Flush: Flushing of the face or chest. Flushing will typically subside within 48 to 72 hours. You may take diphenhydramine (Benadryl), loratadine (Claritin), or fexofenadine (Carol) as needed to relieve facial flushing, unless allergic to or told not to take. Follow directions on the package labeling. Infection: There is less than a 1% chance of infection. If you notice any signs of infection (redness, warmth, drainage, chills, fever greater than 100.4 ) please call Physical Medicine and Rehabilitation office immediately at [phone]. Diabetic Patients: In the case of steroid use, an increase in blood sugar or hyperglycemia may occur. Please monitor your blood sugar closely for the next few days. If your blood sugar becomes significantly elevated please contact the physician that helps you manage your diabetes or seek immediate medical attention. WHEN TO CONTACT THE DOCTOR'S OFFICE Any sign of infection, which may include: redness, swelling, or drainage at the injection site, fever,chills, area is sensitive or warm to the touch. Significant increase in pain / more pain than you had prior to the procedure. Excessive bruising, bleeding or swelling at the injection site. Experience a persistent headache that cannot be relieved by usual pain medications and rest. You have questions or concerns about your condition or care. WHEN TO SEEK IMMEDIATE MEDICAL ATTENTION Blood soaks through your bandage. Any signs of an allergic reaction, which may include: itching, hives, severe vomiting, swelling of face, lips or tongue,difficulty breathing. Experience difficulty speaking or have a facial droop. You have trouble moving your legs. Have persistent numbness, tingling, or weakness in your arms or legs that continues to worsen. Loss of bowel or bladder control. documented in this encounter [facility] 01-27-2025 Miscellaneous Notes PA request for Crexont pending via [facility] with [place] # [id number] Request Reference Number: [id number]. CREXONT CAP 70-280MG is approved through 01/27/2026 Noted. documented in this encounter [facility] 01-27-2025 Telephone encounter Note PA request for Crexont pending via [facility]MM with [place] # [id number] [facility] 01-27-2025 Telephone encounter Note Request Reference Number: [id number]. CREXONT CAP 70-280MG is approved through 01/27/2026 [facility] 01-27-2025 Telephone encounter Note Noted. [facility] 01-26-2025 History of Present illness Narrative Images from the original note were not included. [address] [facility] [address] [facility] [id number] Patient: Beena Diaz Date of : 1950 Encounter Date: 01/26/2025 Patient Care Team: Brenden Caba APRN-PERCUSSION WELDING MACHINE OPERATOR as PCP - General Lilia Cortez MD as Consulting Physician (Dermatology) SOPHY Garner as Physician Senior Service Aide (Gastroenterology) Ty Branham MD as Referring Physician (Neurology) Trice Silva MD as Referring Physician (Neurology) Noreen Butler MD as Referring Physician (Anesthesiology) Colleen Russell MD as Consulting Physician (Gastroenterology) Cee Malcolm MD as Consulting Physician (Cardiology) Ty Branham MD as Referring Physician (Neurology) History of Present Illness: 74 year old female seen for follow up of Parkinson's disease. Her last visit was in June. She is accompanied by her daughter today. The patient reports that since her last visit, she has noticed an increase in truncal dyskinesia, reporting a lot of swaying and head bobbing. Her family is concerned this may be a fall risk. She reports her symptoms are most pronounced in the morning, roughly an hour after her dose of Sinemet CR and in the evening, roughly an hour or two after her evening dose of Sinemet. The patient reports that 45-1 hour prior to her scheduled doses of Sinemet, she feels slow and as if she is freezing. The patient also reports some worsening of her gait over the past 6 months. About 4-5 weeks ago, she began nightly WOW videos and endorses these have been beneficial to her gait and balance. The remainder of her Parkinson symptoms have been stable. Despite CBD gummies and Lunesta, her sleep remains a problem due to cervical pain. She is following up with PMR regarding this. She also reports her impulse control has improved even on the previous dose of Pramipexole. We discussed transitioning to [facility] for further management in order to balance dyskinesia and freezing, and the patient was agreeable. She reports no further concerns or questions. Onset of symptoms: 15-20 years ago with lower extremity tremors. Diagnosis: Parkinson's disease. Tremor: denies, says she had them previously Gait: reports she feels her gait is worsening, reports that she started wow videos 4-5 weeks ago and endorses they have been helping. Falls: denies any falls but reports knocking her head into things d/t dyskinesia Bradykinesia: reports slowing of her hands Freezing: occurs about once a day, doesn't know whether its associated with medication timing On/off: yes, before 6pm dose Dyskinesias: Worsening, sway and bobs head while standing still. Concerned about fall risk. Voice: quieter voice. Swallowing: Did not have esophagus dilated. Frequently has trouble swallowing that has progressively worsened. Has had several choking incidents. No difficulties swallowing liquids. Denies any freezing of tongue or vocal cords. Mood: Stable stress and anxiety. She has not been diagnosed previously and never on medication in the past; does not want any meds. Impulsive behaviors: increased shopping hs been stable for now Hallucinations: Previous hallucinations have resolved Memory: Increased memory issues, primarily short-term. Trouble recalling how to spell. Sleep: Reports 4 hours of sleep of night; difficulty falling asleep d/t pain in her neck. Feels like CBD gummies and lunesta are no longer as effective. reports she moves a lot and talks in her sleep. Lightheadedness: Denies any lightheadedness Bladder: denies, some urgency after taking Lasix Constipation: Improvement in constipation with high fiber diet. Endorses bowel movements once a day. Drooling: Daughter noticed minimal drooling during the day. ADL: Intact IADL: Intact Driving: Yes, but some jerking with dyskinesia reported by daughter. Avoids highways, stays close to home. Current medication regimen: Sinemet CR (2 tabs at 6AM, 1 tab at 1130am-12, 2 tabs at 5PM, 1 tab at 11pm); sinemet 1 tab PRN -has only used 4-5 times since prescribed, Azilect 1mg daily; Amantadine 100-200mg in the morning (6:30 am) and 100mg in the afternoon (12 pm); Pramipexole 0.25mg/0.25mg/0.25mg; Klonopin 0.5mg afternoon and 1-1.5mg tabs HS; lunesta 2mg HS Past medications tried: Rytary--severe hallucinations- but due to taking incorrect doses, fadi bajwa Last physical/speech therapy: PT summer 2020 and patient states it did not help. Exercise: states she is very physically active, spends time outside and does nightly Wow exercises Previous evaluation: none Allergies: Iodinated contrast media Review of Relevant Patient Questionnaires: PHQ-9: 01/26/2025 10:32 AM 08/09/2024 7:00 AM 03/02/2024 11:33 AM 10/28/2023 11:37 AM 07/22/2023 11:43 AM 01/21/2023 12:04 PM 12/01/2022 7:00 AM PM AMB PHQ 9 Little interest or pleasure in doing things 0 0 0 0 0 1 0 Feeling down, depressed, or hopeless 0 0 0 3 0 1 0 Trouble falling or staying asleep, or sleeping too much 3 0 2 Feeling tired or having little energy 0 0 0 Poor appetite or overeating 3 0 0 Feeling bad about yourself - or that you are a failure or have let yourself or your family down 3 0 1 Trouble concentrating on things, such as reading the newspaper or watching television 0 0 0 Moving or speaking so slowly that other people could have noticed. Or the opposite - being so fidgety or restless that you have been moving around a lot more than usual 0 0 0 Thoughts that you would be better off , or of hurting yourself in some way 0 0 0 Total Score 0 0 0 12 0 5 0 If you checked off any problems, how difficult have these problems made it for you to do your work, take care of things at home, or get along with other people? Not difficult at all Not difficult at all ZORAIDA-7: 10/28/2023 11:00 AM 07/22/2023 11:00 AM 01/21/2023 12:00 PM 07/23/2022 11:00 AM 03/10/2022 10:00 AM PM AMB ZORAIDA 7 Feeling nervous, anxious or on edge 3 2 2 1 0 Not being able to stop or control worrying 3 2 2 1 0 Worrying too much about different things 3 2 2 1 1 Trouble relaxing 3 3 3 3 1 Being so restless that it is hard to sit still 3 3 3 2 0 Becoming easily annoyed or irritable 3 3 3 2 1 Feeling afraid as if something awful might happen 0 3 3 2 1 ZORAIDA-7 Total Score 18 18 18 12 4 Past Medical, Family, Surgical, and Social History Update: The following portions of the patient's history were reviewed and updated as appropriate: allergies, current medications, past family history, past medical history, past social history, past surgical history and problem list. Past Medical History: Diagnosis Date Acute on chronic heart failure with preserved ejection fraction ([facility]) 02/20/2022 Anxiety Arthritis Asthma Cellulitis of left lower extremity 02/19/2022 COPD (chronic obstructive pulmonary disease) ([facility]) 03/14/2019 Dyslipidemia Esophageal dysphagia 2023 Heart murmur Hypertension Low back pain Open wound of left lower leg 01/20/2022 Parkinson's disease Sepsis due to Staphylococcus aureus ([facility]) 01/17/2022 Tear of right hamstring 07/03/2020 Visual impairment glasses Family History Problem Relation Age of Onset Diabetes Father Heart disease Father CABG at age 65 Colon cancer Neg Hx Anesthesia problems Neg Hx Past Surgical History: Procedure Laterality Date AUGMENTATION MAMMAPLASTY 11/09/2018 silicone COLONOSCOPY 10/20/2015 Rept 10 yrs ESOPHAGOGASTRODUODENOSCOPY with biopsies and dilatioin N/A 05/24/2024 Performed by Colleen Russell MD at [facility] OTHER SURGICAL HISTORY spinal pain shot Current Outpatient Medications Medication Sig Dispense Refill ALPRAZolam (XANAX) 0.25 mg tablet Take 1 tablet (0.25 mg total) by mouth 3 (three) times a day as needed for anxiety. 12 tablet 5 amantadine (SYMMETREL) 100 mg tablet Take 1-2 tabs at 6am and 1 tab at 12pm PO. 270 tablet 3 aspirin 81 mg Take 1 tablet (81 mg total) by mouth once. (Patient not taking: Reported on 10/20/2024) calcium carbonate 260 mg calcium (648 mg) tablet Take by mouth. calcium citrate-vitamin D2 250 mg-2.5 mcg (100 unit) per tablet Take 1 tablet by mouth in the morning and 1 tablet before bedtime. carbidopa-levodopa (SINEMET CR) 25-100 mg per CR tablet TAKE 2 TABLETS BY MOUTH AT 6AM, THEN 1 TAB AT 12PM, THEN 2 TABS AT 5PM, AND 1 TO 2 TABS AT 10PM 630 tablet 3 carbidopa-levodopa (SINEMET) 25-100 mg per tablet TAKE 1 TABLET BY MOUTH AT 6AM AND 1/2 TO 1 TABLET DAILY NEEDED OFF TIME (USE WITH SINEMET CR) 60 tablet 5 ciclopirox (LOPROX) 0.77 % cream clonazePAM (KlonoPIN) 0.5 mg tablet Take 3 tablets at bedtime 270 tablet 1 eszopiclone (LUNESTA) 2 mg tablet TAKE 1 TABLET BY MOUTH nightly. take immediately before bedtime 30 tablet 0 folic acid (FOLVITE) 1 mg tablet Take 1 tablet (1 mg total) by mouth in the morning. 90 tablet 3 furosemide (LASIX) 20 mg tablet Take 1 tablet (20 mg total) by mouth daily. losartan (COZAAR) 25 mg tablet TAKE 1 TABLET BY MOUTH IN THE MORNING 90 tablet 3 methotrexate 2.5 mg chemo tablet Take 7 tablets by mouth once a week 84 tablet 0 pantoprazole (PROTONIX) 40 mg EC tablet Take 1 tablet (40 mg total) by mouth in the morning. 30 tablet 11 pramipexole (MIRAPEX) 0.25 mg tablet TAKE 1 TABLET BY MOUTH 3 TIMES DAILY 270 tablet 3 rasagiline (AZILECT) 1 mg tablet Take 1 tablet (1 mg total) by mouth every morning. 90 tablet 3 simvastatin (ZOCOR) 40 mg tablet Take 1 tablet (40 mg total) by mouth nightly. 90 tablet 1 tiZANidine (ZANAFLEX) 4 mg capsule TAKE 1 CAPSULE BY MOUTH AT NIGHT 30 capsule 0 traMADoL (ULTRAM) 50 mg tablet Take 1 tablet (50 mg total) by mouth every 8 (eight) hours as needed for pain. 90 tablet 0 No current facility-administered medications for this visit. (All medications reviewed and updated by provider since last office visit or hospitalization) Tobacco History: Social History Tobacco Use Smoking Status Former Current packs/day: 0.00 Types: Cigarettes Quit date: 2018 Years since quittin.2 Smokeless Tobacco Never (If patient a smoker, smoking cessation counseling offered) Social History: Social History Substance and Sexual Activity Alcohol Use Yes Alcohol/week: 7.0 standard drinks of alcohol Types: 7 Glasses of wine per week Comment: daily Review of Systems: Review of Systems Constitutional: Negative for unexpected weight change. HENT: Positive for trouble swallowing. Respiratory: Negative for shortness of breath. Cardiovascular: Negative for chest pain. Gastrointestinal: Negative for abdominal pain. Musculoskeletal: Positive for gait problem. Skin: Negative for rash. Neurological: Negative for weakness. Psychiatric/Behavioral: Negative for hallucinations. Physical Exam: Vitals: Vitals: 01/26/25 1031 Weight: 43.5 kg (96 lb) Height: 157.5 cm (5' 2 ) Patient consulted for exercise: encouragement to exercise. Neurological Physical Exam: Physical Exam: Mental Status: Orientation: Oriented to person, place and time. Level of consciousness: alert. Speech: Normal quality. Language: Normal. Cranial Nerves: CN II: Visual singer full to confrontation. CN III, IV, : CN III: PERRLA and EOM full. CN VII: Facial expression fully symmetric. Motor: Muscle Bulk: Normal. Muscle Strength: Strength 5/5 througout No rigidity Bradykinesia with finger tap TEREZA. Sensory: Light touch normal in upper and lower extremities. Gait/Coord/DTR: Gait: Able to stand with arms crossed, narrow base, intact arm swing. Coordination: Mild dyskinesias trunk/upper extremities. Tremor: Intermittent left hand tremor. Assessment and Plan: Beena Diaz is a 74 y.o. right handed female with diagnosis of Parkinson's disease 15-20 years ago here for follow up. Her dyskinesia symptoms have worsened and are worst following her morning and evening doses of Sinemet. She is managing her gait with nightly wow video exercises. Her sleep has not improved with CBD gummies and Lunesta, and is likely due to chronic neck pain. Overall, the remainder of her Parkinson's symptoms are stable. Impression Idiopathic Parkinson's disease with dyskinesias and off time Plan: Discontinue Sinemet CR once Crexont is obtained from pharmacy. Take 1 280 mg tablet at 6:30 am and 1 280 mg tablet at 1 pm. Call with any side effects or no improvements, discontinue Crexont, and return to Sinemet CR. Keep remaining medications the same Future consideration: levodopa pump or GPi DBS. Avoiding apomorphine pump due to history of impulse control disorder Follow up 3-4 months Manjeet Elder, MS3 Trice Silva MD This note was created with the assistance of a speech recognition program. While intending to generate a timely document that accurately reflects the content of the visit, no guarantee can be provided that every grammatical or spelling mistake has been or will be identified or corrected. Thank you for your understanding. [facility] Instructions Trice Silva MD - 01/26/2025 10:30 AM EDT Once you get crexont from the pharmacy, stop sinemet CR and replace with crexont 280mg 1 cap at 630am and second one around 1pm. Update Dr. Silva if you can't get the medication, if you have a side effect and go back to your prior regimen, or if the new medicine isn't helping after 1-2 weeks. Keep other medications the same. documented in this encounter [employer] 01-24-2025 Miscellaneous Notes Prior Authorization/Notification is not required for the requested service(s). This [employer] member's plan does not currently require a prior authorization for these services. If you have general questions about the prior authorization requirements, please call us at [phone] or visit [employer] > Clinician Resources > Advance and Admission Notification Requirements. The number above acknowledges your notification. Please write this number down for future reference. Notification is not a guarantee of coverage or payment. Decision ID #: [id number] The number above acknowledges your inquiry and our response. Please write this number down and refer to it for future inquiries. Coverage and payment for an item or service is governed by the member's benefit plan document, and, if applicable, the provider's participation agreement with the Health Plan. Patient details keyboard_arrow_up Patient name BEENA DIAZ Member number [id number] Group number [id number] Product POS Relationship Spouse Effective date 11/09/2024 Termination date 11/08/2025 Insurance type Commercial Verbal language preference - Written language preference - info A future timeline may be available for this member. For future coverage please call the telephone number located on the back of the member's Medical ID card. Submitting provider details keyboard_arrow_up Name Isidro Woodall Tax ID number [id number] Address [address], [place] [id number] Status In network Service details keyboard_arrow_up Place of service Office What is place of service? Service description Scheduled What is service description? Ordering provider details keyboard_arrow_up This provider provides the referral or prescription for the services that are going to be rendered. You are able to select an ordering provider either from your favorites, or perform a new provider search. Name ISIDRO WOODALL Tax ID number [id number] Address [address], [place] [address] T. [phone] Status In network Diagnosis code details keyboard_arrow_up Code pointer Primary Diagnosis code M54.12 Description Radiculopathy, cervical region Procedure code details keyboard_arrow_up Code pointer Primary procedure code 58918 Description Injection(s), anesthetic agent(s) and/or steroid; transforaminal epidural, with imaging guidance (fluoroscopy or CT), cervical or thoracic, single level Selected servicing provider The provider who is providing the service being requested. Servicing provider name ISIDRO WOODALL Tax ID number [id number] Address [address], [place] [address] T. [phone] Status In network Service Details Pain Management Expected from date info 01/24/2025 Expected to date info 04/08/2025 Count info 2 Standard of Measure info Visits Frequency info Time(s) Total info 2 documented in this encounter [facility] 01-24-2025 Telephone encounter Note Prior Authorization/Notification is not required for the requested service(s). This [facility] Commercial member's plan does not currently require a prior authorization for these services. If you have general questions about the prior authorization requirements, please call us at [phone] or visit [employer] > Clinician Resources > Advance and Admission Notification Requirements. The number above acknowledges your notification. Please write this number down for future reference. Notification is not a guarantee of coverage or payment. Decision ID #: [id number] The number above acknowledges your inquiry and our response. Please write this number down and refer to it for future inquiries. Coverage and payment for an item or service is governed by the member's benefit plan document, and, if applicable, the provider's participation agreement with the Health Plan. Patient details keyboard_arrow_up Patient name BEENA DIAZ Member number [id number] Group number [id number] Product POS Relationship Spouse Effective date 11/09/2024 Termination date 11/08/2025 Insurance type Commercial Verbal language preference - Written language preference - info A future timeline may be available for this member. For future coverage please call the telephone number located on the back of the member's Medical ID card. Submitting provider details keyboard_arrow_up Name Isidro Woodall Tax ID number [id number] Address [address], [place] [address] Status In network Service details keyboard_arrow_up Place of service Office What is place of service? Service description Scheduled What is service description? Ordering provider details keyboard_arrow_up This provider provides the referral or prescription for the services that are going to be rendered. You are able to select an ordering provider either from your favorites, or perform a new provider search. Name ISIDRO WOODALL Tax ID number [id number] Address [address] [place] [address] [address], [place] [address] T. [phone] Status In network Diagnosis code details keyboard_arrow_up Code pointer Primary Diagnosis code M54.12 Description Radiculopathy, cervical region Procedure code details keyboard_arrow_up Code pointer Primary procedure code 79820 Description Injection(s), anesthetic agent(s) and/or steroid; transforaminal epidural, with imaging guidance (fluoroscopy or CT), cervical or thoracic, single level Selected servicing provider The provider who is providing the service being requested. Servicing provider name ISIDRO WOODALL Tax ID number [id number] Address [facility], [place] [address] T. [phone] Status In network Service Details Pain Management Expected from date info 01/24/2025 Expected to date info 04/08/2025 Count info 2 Standard of Measure info Visits Frequency info Time(s) Total info 2 [facility] 03-17-2025 Miscellaneous Notes Images from the original note were not included. Patient [phone] stated that they would like a refill on eszopiclone 2 mg TAKE 1 TABLET BY MOUTH immediately before bedtime medication and patient would need more than 30 pills due to going to [facility] for the summer . Refill request : eszopiclone (LUNESTA) 2 mg tablet Last Filled : 12/09/2024 Last OV : 06/29/2024 Next OV : 01/26/2025 Reviewed by PERSONNEL PSYCHOLOGIST. Pend for signature. Can you call in refill as ordered above? I cannot sign electronically while out of the office Quick Print Operator phoned in prescription to pharmacy. documented in this encounter [facility] 01-23-2025 Telephone encounter Note Images from the original note were not included. Patient [phone] stated that they would like a refill on eszopiclone 2 mg TAKE 1 TABLET BY MOUTH immediately before bedtime medication and patient would need more than 30 pills due to going to [facility] for the summer . [facility] 01-23-2025 Telephone encounter Note Refill request : eszopiclone (LUNESTA) 2 mg tablet Last Filled : 12/09/2024 Last OV : 06/29/2024 Next OV : 01/26/2025 Reviewed by PERSONNEL PSYCHOLOGIST. Pend for signature. [facility] 01-23-2025 Telephone encounter Note Can you call in refill as ordered above? I cannot sign electronically while out of the office [facility] 01-23-2025 Telephone encounter Note Quick Print Operator phoned in prescription to pharmacy. [facility] 01-23-2025 Miscellaneous Notes Pt called after her appointment with Dr. Hamlin. Per his notes, Dr. Hamlin does not feels she is a surgical candidate at this time. Would like pt to be treated for occipital neuralgia . Please see his 01/23/25 office notes. Rt C3-4 TFESI on 01/30/25 Lt C3-4 TFESI 02/13/25 I would recommend proceeding with epidural injections, although, we can absolutely have her scheduled for occipital nerve blocks as well if epidurals do not control her symptoms. Duly noted, we will wait for her follow up to determine the next course of action. documented in this encounter [facility] 01-23-2025 Telephone encounter Note Pt called after her appointment with Dr. Hamlin. Per his notes, Dr. Hamlin does not feels she is a surgical candidate at this time. Would like pt to be treated for occipital neuralgia . Please see his 01/23/25 office notes. Rt C3-4 TFESI on 01/30/25 Lt C3-4 TFESI 02/13/25 [facility] 01-23-2025 Telephone encounter Note I would recommend proceeding with epidural injections, although, we can absolutely have her scheduled for occipital nerve blocks as well if epidurals do not control her symptoms. [facility] 01-23-2025 Telephone encounter Note Duly noted, we will wait for her follow up to determine the next course of action. [facility] 01-23-2025 History of Present illness Narrative Images from the original note were not included. [facility] [address] [place] [address], [address] [place] [address] * CHART NOTE ? 01/23/2025 Patient: Beena Diaz [id number] Physician: Yusra Hamlin MD, FACS CHIEF COMPLAINT I had the pleasure of seeing Beena Diaz in the office today. She is being seen for neck pain which has features of facet joint pain and features consistent with occipital neuralgia on the right. HISTORY OF PRESENT ILLNESS This patient has a longstanding diagnosis of Parkinson's disease which has been quite stable and very very slowly progressive. She developed significant posterior cervical pain syndrome which interferes with many facets of her life. She indicates trying to sleep placing her head on a pillow aggravates the pain and she describes pain radiating up into the occipital region suggestive of a right greater occipital neuralgia. She indicates that using the neck for turning bending etc. aggravates pain in the neck itself which has many of the characteristics of facet joint pain. The patient has imaging studies that show significant cervical spondylosis. There is no obvious instability on flexion-extension films. The patient does have an MRI which shows an offset at C4-C5 but this does not appear to change between flexion-extension on her plain films. The range of motion of her neck is quite limited. An MRI of lumbar spine was completed it shows the spondylosis and the offset mentioned above. 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 Both levels have flattening of the anterior cord. There is CSF investing the cord but it is quite thin. There is no signal change in the cord. The patient does not complain of arm symptoms. When we discussed radicular pain she indicates that from time to time she gets pain in the area of the right shoulder but it does not radiate down the arm past the shoulder. She does not have any left-sided radicular symptoms. The patient is left-handed and her segmental strength is normal hand intrinsic muscles are stronger in the left-hand than the right-hand. The strength in hands as normal based upon the fact that she is left-handed. Patient has no sensory complaints in her hand about dexterity and coordination the patient indicates that she is not experiencing symptoms suggestive of difficulty with those functions. She indicates that she does not have difficulty placing jewelry or buttoning shirts. We discussed axial balance and the patient indicates that she does feel somewhat off balance at times but not frequently or regularly. She does not endorse any bowel or bladder dysfunction. On physical examination the patient's reflexes are 2 and symmetric at the knees 1-2 and symmetric at the ankles and the toes are downgoing to plantar stimulation. In the upper extremity the reflexes are 0-1 and symmetric at the elbow and brachioradialis. Cervical spine is nontender to palpation and percussion. Range of motion is limited in all planes. The patient does have a Tinel sign over the greater occipital nerve on the right. I discussed with the patient the pros and cons of cervical decompression for the segmental stenosis that she has. I indicated that the surgery would be difficult to go through in the likelihood that it would leave her any better off regarding the pain that she is experiencing is quite low. It would lessen the likelihood of an injury to the cervical spine if there were large unanticipated forces to the head and neck. I pointed out that there still a CSF around the cord and no signal change in this would represent a finding that would allow for surveillance rather than moving on to surgery. HEALTH HISTORY Past Medical History Documented in chart and reviewed with the patient at this visit Family History Documented in chart and reviewed with the patient at this visit Social History Documented in chart and reviewed with the patient at this visit Surgeries/Hospitalizations Documented in chart and reviewed with the patient at this visit Current Medications Current Outpatient Medications on File Prior to Visit Medication Sig Dispense Refill ALPRAZolam (XANAX) 0.25 mg tablet Take 1 tablet (0.25 mg total) by mouth 3 (three) times a day as needed for anxiety. 12 tablet 5 amantadine (SYMMETREL) 100 mg tablet Take 1-2 tabs at 6am and 1 tab at 12pm PO. 270 tablet 3 calcium carbonate 260 mg calcium (648 mg) tablet Take by mouth. calcium citrate-vitamin D2 250 mg-2.5 mcg (100 unit) per tablet Take 1 tablet by mouth in the morning and 1 tablet before bedtime. carbidopa-levodopa (SINEMET CR) 25-100 mg per CR tablet TAKE 2 TABLETS BY MOUTH AT 6AM, THEN 1 TAB AT 12PM, THEN 2 TABS AT 5PM, AND 1 TO 2 TABS AT 10PM 630 tablet 3 carbidopa-levodopa (SINEMET) 25-100 mg per tablet TAKE 1 TABLET BY MOUTH AT 6AM AND 1/2 TO 1 TABLET DAILY NEEDED OFF TIME (USE WITH SINEMET CR) 60 tablet 5 ciclopirox (LOPROX) 0.77 % cream clonazePAM (KlonoPIN) 0.5 mg tablet Take 3 tablets at bedtime 270 tablet 1 eszopiclone (LUNESTA) 2 mg tablet TAKE 1 TABLET BY MOUTH nightly. take immediately before bedtime 30 tablet 0 folic acid (FOLVITE) 1 mg tablet Take 1 tablet (1 mg total) by mouth in the morning. 90 tablet 3 furosemide (LASIX) 20 mg tablet Take 1 tablet (20 mg total) by mouth daily. losartan (COZAAR) 25 mg tablet TAKE 1 TABLET BY MOUTH IN THE MORNING 90 tablet 3 methotrexate 2.5 mg chemo tablet Take 7 tablets by mouth once a week 84 tablet 0 pantoprazole (PROTONIX) 40 mg EC tablet Take 1 tablet (40 mg total) by mouth in the morning. 30 tablet 11 pramipexole (MIRAPEX) 0.25 mg tablet TAKE 1 TABLET BY MOUTH 3 TIMES DAILY 270 tablet 3 rasagiline (AZILECT) 1 mg tablet Take 1 tablet (1 mg total) by mouth every morning. 90 tablet 3 simvastatin (ZOCOR) 40 mg tablet Take 1 tablet (40 mg total) by mouth nightly. 90 tablet 1 tiZANidine (ZANAFLEX) 4 mg capsule TAKE 1 CAPSULE BY MOUTH AT NIGHT 30 capsule 0 traMADoL (ULTRAM) 50 mg tablet Take 1 tablet (50 mg total) by mouth every 8 (eight) hours as needed for pain. 90 tablet 0 aspirin 81 mg Take 1 tablet (81 mg total) by mouth once. (Patient not taking: Reported on 10/20/2024) No current facility-administered medications on file prior to visit. Allergies Allergies Allergen Reactions Iodinated Contrast Media Itching REVIEW OF SYSTEMS A complete and comprehensive 10-system review was completed. Pertinent positives and negatives are mentioned in the history of the present illness. PHYSICAL EXAMINATION General The patient is an adult female in no apparent distress. Ophthalmologic Musculoskeletal Normal segmental strength in the upper and lower extremities. There is evidence of diffuse atrophy bilaterally that is symmetric in nature. The tone of the musculature is normal. Station/Gait The station is neutral. The gait is slow pace with short steppage. Cardiovascular Vascular Lymphatic Coordination Standing balance is normal with Romberg testing. The patient did sway a little bit but did not require help from the examiner Neurologic The patient is alert and oriented to person, place, and time. Speech and language function is normal. Memory, recent and remote, is intact. Concentration and alertness are appropriate. General fund of knowledge is within normal limits. Cranial Nerves Sensory Sensory examination in the upper and lower extremities is intact Reflexes Deep tendon reflexes are as described above. No pathologic reflexes are identified. Additional Findings Cervical spine is tender to mild percussion but not palpation Range of motion of cervical spine is markedly limited in all planes There is a Tinel sign over the greater occipital nerve on the right Foraminal closure sign is negative bilaterally, the patient has a difficult time moving her head enough to make this maneuver reliable MEDICAL DECISION MAKING Material Reviewed & Assessment: The following materials were independently reviewed and discussed with the patient: Cervical flexion-extension spine films - these were reviewed with attention to the craniocervical junction which did not show any abnormal motion that would compromise the occipital nerve. Cervical MRI Options: 1. We discussed the option of follow-up with the pain management doctors at [facility] for facet injections and possible ablation. 2. We discussed the option of having injections at the area of the right greater occipital nerve to see if they are helpful. 3. We discussed the option of surgery. I have recommended watching the situation rather than recommending surgical intervention at this point. I would typically do this from a posterior cervical approach and it would likely significantly increase the patient's pain problems in the posterior cervical region for a extended period of time. Spinal cord still has CSF around it and there is no signal change in the cord. SUMMARY After review of the pros and cons of the options, the patient indicated that she would like to follow through with the options above I have instructed the patient to contact my office if any new questions, concerns, or symptoms develop. I have confirmed that she has the contact information and is aware she has a [employer] My Chart option to review the medical file I have created. PLAN The patient contact my office with any new concerns problems or issues Sincerely, Electronically signed by: Yusra Hamlin MD, [facility] This note was created with the assistance of a speech recognition program with the goal of generating a timely record of the patient encounter. Inadvertent computerized rehab therapist errors related to syntax, spelling, homophones, and/or inaudibility may be present. documented in this encounter [facility] 01-23-2025 Instructions Zen Leahy - 01/23/2025 10:30 AM EDT recommends Right Occipital neuralgia pain management Cervical facet injections follow up vlad Pt will call if she needs referral to pain mgmt RT documented in this encounter [facility] 12-28-2024 Miscellaneous Notes Patient would like to know why we referred her to spine care Spoke with patient and explained to her and she states that she would like to be referred to Dr valerio at [facility]. Referral placed and faxed to [phone] per patient request documented in this encounter [facility] 12-28-2024 Telephone encounter Note Patient would like to know why we referred her to spine care [facility] 12-28-2024 Telephone encounter Note Spoke with patient and explained to her and she states that she would like to be referred to Dr valerio at [facility]. Referral placed and faxed to [phone] [facility] Miscellaneous Notes Patient states that she was recently started on Methotrexate and with the medication came a warning that this should not be taken with pantoprazole. She asks if a different medication needs to be sent instead? Thank you Would advice patient contact the prescribing provider of her methotrexate [facility] Telephone encounter Note Patient states that she was recently started on Methotrexate and with the medication came a warning that this should not be taken with pantoprazole. She asks if a different medication needs to be sent instead? [facility] you [facility] 12-23-2024 Telephone encounter Note Would advice patient contact the prescribing provider of her methotrexate [employer] Work Phone: 12-06-2024 History of Present illness Narrative Associated Order(s): tpi Post-Procedure Diagnose(s): Neck pain, chronic Images from the original note were not included. [facility] [place] [id number] [facility], [address] [place] [address] * Patient: Beena Diaz Date of : 1950 PCP: BRENDEN CABA APRN-JONEL Provider: Ofelia Pierce CNP Date of Visit: 12/06/24 CHIEF COMPLAINT Chief Complaint Patient presents with New Patient New patient to this provider is here for bilateral neck pain for over 3 weeks, also radiates to the back of the head causing headaches, ROM is also affected, heat provides mild relief ASSESSMENT 1. Chronic pain syndrome - triamcinolone acetonide (KENALOG-40) injection 40 mg - lidocaine (XYLOCAINE) 10 mg/mL (1 %) injection 40 mg - triamcinolone acetonide (KENALOG-40) injection 40 mg - lidocaine (XYLOCAINE) 10 mg/mL (1 %) injection 40 mg - traMADoL (ULTRAM) 50 mg tablet; Take 1 tablet (50 mg total) by mouth every 8 (eight) hours as needed for pain. Dispense: 90 tablet; Refill: 0 - X-ray spine cervical 3 views or less; Future 2. Neck pain, chronic 3. Cervical radiculopathy HISTORY OF PRESENT ILLNESS Beena Diaz is a 74 y.o. female, is a new patient, here with complaints of Head and Neck/Cervical. Onset of symptoms was several weeks ago, gradually worsening since that time. Event that precipitated these symptoms: None known. Current symptoms (aching and dull in character; 8/10 in severity). Symptoms are exacerbated by night is worse, laying down causes severe pain. Symptoms are improved by heating pad Current non narcotic pain medications: None Current narcotic pain medication: None Non traditional treatments: No non traditional pain treatments Previous Evaluation and Treatment Bowel or bladder changes: No Ambulatory device: Yes walking sticks. REVIEW OF SYSTEMS Pertinent positives: Review of Systems Musculoskeletal: Positive for arthralgias, myalgias, neck pain and neck stiffness. MSK review of systems as stated above. All other 10 systems were reviewed and were negative other than what was stated in the history of present illness. PAST MEDICAL, FAMILY, AND SOCIAL HISTORY UPDATE: The following portions of the patient's history were reviewed and updated as appropriate: allergies, current medications, past family history, past medical history, past social history, past surgical history and problem list. Past Medical History: Diagnosis Date Acute on chronic heart failure with preserved ejection fraction ([facility]) 02/20/2022 Anxiety Arthritis Asthma Cellulitis of left lower extremity 02/19/2022 COPD (chronic obstructive pulmonary disease) ([facility]) 03/14/2019 Dyslipidemia Esophageal dysphagia 2023 Hypertension Open wound of left lower leg 01/20/2022 Parkinson's disease Sepsis due to Staphylococcus aureus ([facility]) 01/17/2022 Tear of right hamstring 07/03/2020 Visual impairment glasses Past Surgical History: Procedure Laterality Date AUGMENTATION MAMMAPLASTY 11/09/2018 silicone COLONOSCOPY 10/20/2015 Rept 10 yrs ESOPHAGOGASTRODUODENOSCOPY with biopsies and dilatioin N/A 05/24/2024 Performed by Colleen Russell MD at [facility] ENDOSCOPY OTHER SURGICAL HISTORY spinal pain shot Family History Problem Relation Age of Onset Heart disease Father CABG at age 65 Colon cancer Neg Hx Anesthesia problems Neg Hx Tobacco History: Social History Tobacco Use Smoking Status Former Current packs/day: 0.00 Types: Cigarettes Quit date: 2017 Years since quittin.0 Smokeless Tobacco Never (If patient a smoker, smoking cessation counseling offered) Social History: Social History Substance and Sexual Activity Alcohol Use Yes Alcohol/week: 7.0 standard drinks of alcohol Types: 7 Glasses of wine per week Comment: daily ALLERGIES Allergies Allergen Reactions Iodinated Contrast Media Itching MEDICATIONS Current Outpatient Medications Medication Sig Dispense Refill ALPRAZolam (XANAX) 0.25 mg tablet Take 1 tablet (0.25 mg total) by mouth 3 (three) times a day as needed for anxiety. 12 tablet 5 amantadine (SYMMETREL) 100 mg tablet Take 1-2 tabs at 6am and 1 tab at 12pm PO. 270 tablet 3 calcium carbonate 260 mg calcium (648 mg) tablet Take by mouth. calcium citrate-vitamin D2 250 mg-2.5 mcg (100 unit) per tablet Take 1 tablet by mouth in the morning and 1 tablet before bedtime. carbidopa-levodopa (SINEMET CR) 25-100 mg per CR tablet TAKE 2 TABLETS BY MOUTH AT 6AM, THEN 1 TAB AT 12PM, THEN 2 TABS AT 5PM, AND 1 TO 2 TABS AT 10PM 630 tablet 3 carbidopa-levodopa (SINEMET) 25-100 mg per tablet TAKE 1 TABLET BY MOUTH AT 6AM AND 1/2 TO 1 TABLET DAILY NEEDED OFF TIME (USE WITH SINEMET CR) 60 tablet 5 ciclopirox (LOPROX) 0.77 % cream clonazePAM (KlonoPIN) 0.5 mg tablet Take 3 tablets at bedtime 270 tablet 1 eszopiclone (LUNESTA) 2 mg tablet Take 1 tablet (2 mg total) by mouth nightly. Take immediately before bedtime 30 tablet 5 folic acid (FOLVITE) 1 mg tablet Take 1 tablet (1 mg total) by mouth in the morning. 90 tablet 3 furosemide (LASIX) 20 mg tablet Take 1 tablet (20 mg total) by mouth daily. losartan (COZAAR) 25 mg tablet TAKE 1 TABLET BY MOUTH IN THE MORNING 90 tablet 3 methotrexate 2.5 mg chemo tablet Take 7 tablets by mouth once a week 84 tablet 0 pantoprazole (PROTONIX) 40 mg EC tablet Take 1 tablet (40 mg total) by mouth in the morning. 30 tablet 11 pramipexole (MIRAPEX) 0.25 mg tablet TAKE 1 TABLET BY MOUTH 3 TIMES DAILY 270 tablet 3 rasagiline (AZILECT) 1 mg tablet TAKE 1 TABLET BY MOUTH EVERY DAY 90 tablet 0 simvastatin (ZOCOR) 40 mg tablet Take 1 tablet (40 mg total) by mouth nightly. 90 tablet 1 tiZANidine (ZANAFLEX) 4 mg capsule Take 1 capsule (4 mg total) by mouth nightly for 30 days. 30 capsule 0 aspirin 81 mg Take 1 tablet (81 mg total) by mouth once. (Patient not taking: Reported on 10/20/2024) traMADoL (ULTRAM) 50 mg tablet Take 1 tablet (50 mg total) by mouth every 8 (eight) hours as needed for pain. 90 tablet 0 No current facility-administered medications for this visit. CURRENT PAIN MEDS; Pain Medications tiZANidine (ZANAFLEX) 4 mg capsule Take 1 capsule (4 mg total) by mouth nightly for 30 days. traMADoL (ULTRAM) 50 mg tablet Take 1 tablet (50 mg total) by mouth every 8 (eight) hours as needed for pain. Beena Diaz is maintained on chronic opiate medication for a chronic, non terminal condition. This condition is of a neuropathic, musculoskeletal, vascular or degenerative nature. The risks vs benefit of this treatment has been discussed with her . Alternative non opiate treatments have been explored and have been ineffective or contraindicated. Beena Diaz is monitored at regular intervals to ensure both compliance with and effectiveness of the regimen and undergoes random drug screening PHYSICAL EXAM There were no vitals filed for this visit. Ortho Exam Physical Exam Vitals reviewed. Constitutional: General: She is not in acute distress. Appearance: Normal appearance. She is well-developed. She is not diaphoretic. HENT: Head: Normocephalic and atraumatic. Nose: Nose normal. Eyes: Extraocular Movements: Extraocular movements intact. Conjunctiva/sclera: Conjunctivae normal. Pupils: Pupils are equal, round, and reactive to light. Neck: Comments: Radiates up the back of the head, ringing and pain in the ears. Cardiovascular: Rate and Rhythm: Normal rate. Pulmonary: Effort: Pulmonary effort is normal. No respiratory distress. Breath sounds: Normal breath sounds. Abdominal: Tenderness: There is no abdominal tenderness. Musculoskeletal: Cervical back: Tenderness present. Pain with movement present. Decreased range of motion. Back: Neurological: General: No focal deficit present. Mental Status: She is alert and oriented to person, place, and time. Psychiatric: Behavior: Behavior normal. Thought Content: Thought content normal. Judgment: Judgment normal. DIAGNOSTICS I have personally reviewed patient's imaging. PROCEDURE Tpi Date/Time: 12/06/2024 2:22 PM Performed by: CIARRA Hernandez Authorized by: CIARRA Hernandez Verbal consent obtained?: Yes Written consent obtained?: Yes Risks and benefits: Risks, benefits and alternatives were discussed Consent given by: Patient Patient states understanding of procedures being performed: Yes Patient's understanding of procedure matches consent: Yes Procedure consent matches procedure scheduled: Yes Relevant documents present and verified: Yes Test results available and properly labeled: Yes Site marked: Yes Imaging studies available: if applicable. Required items: Required blood products, implants, devices and special equipment available Patient identity confirmed: Verbally with patient Time out: Immediately prior to the procedure a time out was called Indications: Pain (somatic dysfunction) Preparation: Patient was prepped and draped in usual sterile fashion Needle size: 25 G Ultrasound guidance: No Approach: Posterior Lidocaine HCL 1% amount (ml): 3 Bupivacaine amount (ml): 2 Kenalog amount (mg/ml): 80 Patient tolerance: Patient tolerated the procedure well with no immediate complications Procedure was completed Vital signs stable during the procedure Complications: none Interventions: none Counseling given: Yes PLAN Patient was counseled on the importance of consistency with their exercises and stretches. All questions were answered during the encounter and the patient was in agreement with plan of care. The patient was instructed to call if worsening or not improving. The patient was counseled regarding impressions, instructions for management and importance of compliance with treatment. Orders Placed & Further Treatment Options/Recommendations: Xray cervical spine for further evaluation for potential injection options. TPI cervical paraspinal muscles completed today. Tumeric recommendations. Tramadol 50 mg tid PRN. Encouraged to continue on current medications as prescribed/tolerated. Encouraged to be consistent with routine HEP as tolerated/instructed. Follow-up: 12 weeks on above orders and recommendations, will discuss further POC Call sooner PRN OARRS was reviewed on 12/06/24. Diversion Concerns? No Drug Screen/Pain Contract obtained today: Yes tramadol 50 mg Patient Education Learner: Patient Educated on: Natural history and expected course discussed. Questions answered. Educational materials distributed. NSAIDs per medication orders. OTC analgesics as needed. Readiness: acceptance Method: explanation Response: verbalizes understanding CIARRA Jose Disclaimer: This note was completed using a voice rehab therapist system. Every effort was made to ensure accuracy. However, inadvertent computerized rehab therapist errors may be present. Please contact author for any clarification. CIARRA Hernandez 12/06/24 1430 [facility] History of Present illness Narrative ADULT RHEUMATOLOGY CLINIC NOTE [id number] [id number] Patient Name: Beena Diaz Subjective Reason for Rheumatology Consultation: fibromyalgia, raynaud's, positive anti-cardiolipin, polyarthritis History of Present Illness: Beena Diaz is a 74 y.o. female who presents as a referral from her PCP for concern of possible inflammatory arthritis. The patient presents to her appointment accompanied by her . She explains that about 5-6 years ago she began to have the insidious onset of hand pain and swelling that involved the right hand and eventually wrist. Over the course of several months to a year she then developed similar symptoms in the left hand and wrist. 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 She also notices discomfort in the bilateral feet as well as the ankles. The patient explains that she was evaluated in the [facility] Rheumatology office for concern of possible inflammatory arthritis. During her time in their office she underwent testing and eventually was give a trial of steroids. The patient notes that the steroid side effects were intolerable and she likely stopped them after a few days or at most one week. The patient does not recall if the steroids significantly helped her arthritis symptoms, but we do note that she was not on them for very long. The patient did not try any other DMARD medications. The patient does also have a history of parkinson's and is following with Neurology (Dr. Silva). She is on several medications directed at parkinson's. She notes prior issue with tendon ruptures in multiple different extremities which was thought to be potentially related to one of her parkinson's medications (possibly azilect?) and she had the dose of this medication reduced and has not had any further ruptures. The patient does not have a history of bowel disease, or inflammatory eye disease. Of note, the patient does have a history of RP but does not endorse digital ulcers. 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 Family Hx: -noncontributory Interval History: The patient presents to the office for a follow up visit. She has been on the 7 pills weekly dosage of MTX for about 2 weeks now. She notes some minor improvement in her bilateral hands arthritis symptoms. However she notes a relatively new onset discomfort in her neck and paraspinal muscles. She notes that this pain is quite severe and has kept her up at night. We reviewed her recent lab work and note that her basic labs are within normal limits. Her RF and CCP as well as PJ by IFA and dsDNA were negative. Of note, the patient also had an indeterminate Tb quant which is likely the productive of being on immunosuppressive therapy as her positive control was not elevated in the testing. Review of Systems: CONSTITUTIONAL: Admits: [] Weight Loss [] Fever [] Frequent Night Sweats OPHTHALMOLOGIC: Admits: [] Glaucoma [] History or Current Inflammatory Eye Disease [] Cataracts ENT: Admits: [] Oral/Nasal Ulcers [] epistaxis [] Recurrent Sinusitis [] Dry Eyes [] Dry mouth CARDIOVASCULAR: Admits: [] Chest pain [] Pericarditis/Pleuritis [] Palpitations [] Edema RESPIRATORY: Admits: [] hemoptysis [] Dyspnea on Exertion [] Cough [] Wheezing GASTROINTESTINAL: Admits: [] Bloody Stool [] Diarrhea [] Vomitting GENITOURINARY: Admits: [] Blood in urine [] Genital Ulcers [] Burning/pain with urination MUSCULOSKELETAL: Admits: [x] Muscle Pain [x] Joint Pain INTEGUMENTARY: Admits: [] Skin changes [] Sclerodactyly [] Raynauds [] Photosensitivity [] Alopecia NEUROLOGIC: Admits: [] Recurrent Headaches [] Limb Weakness [] Numbness/Tingling PSYCHIATRIC: Admits: [] Insomnia [] Depression [] Anxiety ENDOCRINE: Admits: [] Thyroid abnormalities HEMATOLOGY/LYMPH: Admits: [] Notable Swollen Lymph Nodes [] History of Cytopenias [] Bruising tendency [] History of DVT/PE All non checked boxes, patient denies. All other 10 point ROS reviewed and negative. Current Outpatient Medications Medication Sig Dispense Refill ALPRAZolam (XANAX) 0.25 mg tablet Take 1 tablet (0.25 mg total) by mouth 3 (three) times a day as needed for anxiety. 12 tablet 5 amantadine (SYMMETREL) 100 mg tablet Take 1-2 tabs at 6am and 1 tab at 12pm PO. (Patient taking differently: Take 1 tablet (100 mg total) by mouth in the morning and 1 tablet (100 mg total) before bedtime. Take 1-2 tabs at 6am and 1 tab at 12pm PO..) 270 tablet 3 aspirin 81 mg Take 1 tablet (81 mg total) by mouth once. (Patient not taking: Reported on 10/20/2024) calcium carbonate 260 mg calcium (648 mg) tablet Take by mouth. calcium citrate-vitamin D2 250 mg-2.5 mcg (100 unit) per tablet Take 1 tablet by mouth in the morning and 1 tablet before bedtime. carbidopa-levodopa (SINEMET CR) 25-100 mg per CR tablet TAKE 2 TABLETS BY MOUTH AT 6AM, THEN 1 TAB AT 12PM, THEN 2 TABS AT 5PM, AND 1 TO 2 TABS AT 10PM 630 tablet 3 carbidopa-levodopa (SINEMET) 25-100 mg per tablet TAKE 1 TABLET BY MOUTH AT 6AM AND 1/2 TO 1 TABLET DAILY NEEDED OFF TIME (USE WITH SINEMET CR) 60 tablet 5 ciclopirox (LOPROX) 0.77 % cream clonazePAM (KlonoPIN) 0.5 mg tablet Take 3 tablets at bedtime 270 tablet 1 eszopiclone (LUNESTA) 2 mg tablet Take 1 tablet (2 mg total) by mouth nightly. Take immediately before bedtime 30 tablet 5 folic acid (FOLVITE) 1 mg tablet Take 1 tablet (1 mg total) by mouth in the morning. 90 tablet 3 furosemide (LASIX) 20 mg tablet Take 1 tablet (20 mg total) by mouth daily. losartan (COZAAR) 25 mg tablet TAKE 1 TABLET BY MOUTH IN THE MORNING 90 tablet 3 methotrexate 2.5 mg chemo tablet Take 7 tablets by mouth once a week 84 tablet 0 pantoprazole (PROTONIX) 40 mg EC tablet Take 1 tablet (40 mg total) by mouth in the morning. 30 tablet 11 pramipexole (MIRAPEX) 0.25 mg tablet TAKE 1 TABLET BY MOUTH 3 TIMES DAILY 270 tablet 3 rasagiline (AZILECT) 1 mg tablet TAKE 1 TABLET BY MOUTH EVERY DAY 90 tablet 0 simvastatin (ZOCOR) 40 mg tablet Take 1 tablet (40 mg total) by mouth nightly. 90 tablet 1 No current facility-administered medications for this visit. reviewed. Patient Active Problem List Diagnosis Chronic bilateral low back pain without sciatica Swelling of right hand Menopause Decreased body height Parkinson's disease (CMS-HCC) Hypertension Mixed hyperlipidemia Lumbar degenerative disc disease Osteoarthritis of facet joint of lumbar spine COPD (chronic obstructive pulmonary disease) ([facility]) Tear of right hamstring Right rotator cuff tear arthropathy Livedo reticularis Oral lesion Abdominal bloating Chronic heart failure with preserved ejection fraction ([facility]) Vasovagal episode Nonrheumatic mitral valve regurgitation reviewed. Past Surgical History: Procedure Laterality Date AUGMENTATION MAMMAPLASTY 11/09/2018 silicone COLONOSCOPY 10/20/2015 Rept 10 yrs ESOPHAGOGASTRODUODENOSCOPY with biopsies and dilatioin N/A 05/24/2024 Performed by Colleen Russell MD at [facility] OTHER SURGICAL HISTORY spinal pain shot reviewed. Social History Tobacco Use Smoking status: Former Current packs/day: 0.00 Types: Cigarettes Quit date: 2017 Years since quittin.0 Smokeless tobacco: Never Vaping Use Vaping status: Never Used Substance Use Topics Alcohol use: Yes Alcohol/week: 7.0 standard drinks of alcohol Types: 7 Glasses of wine per week Comment: daily Drug use: No Comment: THC gummies reviewed. Past Medical History: Diagnosis Date Acute on chronic heart failure with preserved ejection fraction ([facility]) 02/20/2022 Anxiety Arthritis Asthma Cellulitis of left lower extremity 02/19/2022 COPD (chronic obstructive pulmonary disease) ([facility]) 03/14/2019 Dyslipidemia Esophageal dysphagia 2023 Hypertension Open wound of left lower leg 01/20/2022 Parkinson's disease Sepsis due to Staphylococcus aureus ([facility]) 01/17/2022 Tear of right hamstring 07/03/2020 Visual impairment glasses reviewed. Social History Social History Narrative Not on file reviewed Family History Problem Relation Age of Onset Heart disease Father CABG at age 65 Colon cancer Neg Hx Anesthesia problems Neg Hx reviewed. Allergies Allergen Reactions Iodinated Contrast Media Itching reviewed. The following portions of the patient's history were reviewed and updated as appropriate: allergies, current medications, past family history, past medical history, past social history, past surgical history and problem list. The following portions of the patient's history were reviewed and updated as appropriate: allergies, current medications, past family history, past medical history, past social history, past surgical history and problem list. Objective Physical Exam: BP 132/82 Pulse 97 Resp 14 Ht 157.5 cm (5' 2 ) Wt 46.1 kg (101 lb 9.6 oz) BMI 18.58 kg/m : reviewed GEN: AOx3, NAD EYES: Clear lenses, sclerae white, conjunctiva pink. ENT: External ears normal. Nares and nasal mucosa normal. Normal oral aperture. No oropharyngeal lesions. NECK: supple, no LAD. LUNGS: CTAB. HEART: Regular rhythm, normal S1/S2, no M/R/G. ABD: Soft, non-distended, non-tender. VASC: Ext warm, peripheral pulses 2+, no edema. MSK: Evaluated the large and small joints of the upper and lower extremities including the bilateral shoulders, elbows, wrists, hands, knees, ankles, and feet. Unless otherwise stated below, joints were without deformity, impairment in ROM, warmth, or tenderness to palpation. Pertinent MSK Findings: The patient does have ongoing mild synovitis and tenderness to the bilateral MCPs in the hands. She also has significant discomfort to palpation of the radial aspect of the right wrist. She has some synovitis of the right wrist. She has limited flexion and extension of the wrists bilaterally. She has difficulty in making a closed fist. She has significant swelling of the bilateral 5th PIPs as well. The bilateral knees are without significant effusion. The right ankle has some mild effusion along with tenderness. She has discomfort to palpation of the cervical paraspinal muscles and the lateral neck bilaterally. Palpation of the cervical spine did not produce tenderness. INTEGUMENT: Skin, nails, and hair normal unless otherwise stated below. NEURO: Alert. Sensation intact to soft touch. Normal muscle bulk and strength in trunk and limbs. ROSARIO-28 (If Applicable) There is currently no information documented on the homunculus. Go to the Rheumatology activity and [facility]. ROSARIO-28 (CRP): -- ROSARIO-28 (ESR): -- Tender (ROSARIO-28): -- Swollen (ROSARIO-28): -- Labs and Imaging: reviewed and discussed with the patient during the visit. General Labs: Lab Results Component Value Date WBC 5.7 11/29/2024 HGB 12.8 11/29/2024 HCT 38.1 11/29/2024 MCV 89 11/29/2024 PLT 213 11/29/2024 Lab Results Component Value Date CREATININE 0.82 11/29/2024 BUN 32 (H) 01/25/2022 K 3.6 01/25/2022 CL 97 (L) 01/25/2022 CO2 29 01/25/2022 Lab Results Component Value Date ALT 14 11/29/2024 AST 26 11/29/2024 ALKPHOS 100 01/25/2022 Inflammatory Markers Lab Results Component Value Date CRP <0.1 11/29/2024 RA-related Auto-Ab's No results found for: RF PJ & related Labs Lab Results Component Value Date PJ Negative 01/18/2022 ANTIRNP 0.2 11/29/2024 Scleroderma-related Auto-Ab's Lab Results Component Value Date SCL70 <0.2 11/29/2024 JO1 <0.2 11/29/2024 Myositis-related Auto-Ab's Lab Results Component Value Date JO1 <0.2 11/29/2024 APLS-related Auto-Ab's No results found for: DRVVT Vasculitis-related Auto-Ab's No results found for: MYELOPEROXID Imaging / Special Studies Reviewed in EMR. Assessment / Recommendations 1. Seronegative rheumatoid arthritis (CMS-HCC) 2. Neck pain 3. Muscle tension pain 4. Inflammatory polyarthritis (CMS-HCC) 5. Anti-cardiolipin antibody positive 6. Raynaud disease without gangrene 7. Primary osteoarthritis involving multiple joints 8. Fibromyalgia Overall Impression: Beena Diaz is a 74 y.o. female patient with a several year history of polyarthritis most notably in the bilateral hands and wrists but also affecting her ankles and feet. Based on the patient's initial history, ROS, and exam, I had concern for possible inflammatory arthritis. We pursued additional serological testing and requested her outside records. We noted that her ESR was elevated but other autoimmune serologies were wnl. Given her intolerance to oral steroids and her ongoing evidence of active synovitis and joint pain/tenderness in the small joints of the hands and feet, we proceeded with initiation of MTX at her last visit. She has noted some minor improvement of hand arthritis. But more notably she has had significant discomfort in the neck and upper back. Recommendations: Labs, Imaging, Special Studies: No orders of the defined types were placed in this encounter. -we will proceed with med monitoring labs every 3 months Treatment Plan: -continue MTX 7 pills weekly for now -we can consider increasing MTX once neck issues are improved -provided new rx for tizanidine that can be utilized if she is unable to get trigger point injections with PM&R in a timely manner Consults/Referrals: -Patient already established with PM&R --- I contacted Ofelia Pierce regarding possibility of getting patient in for trigger point injections quickly. We were able to coordinate the patient going into their office at 1:30 pm this afternoon. Health Maintenance: -The patient should continue to follow with their PCP for age and risk factor appropriate cancer screening and immunizations. Follow-up: -3 months Mariajose Clemente MD, MPH [facility] [address] [place] [address] Total [id number]-nn-spln time was 45 minutes with more than 50% of the visit spent counseling and discussing diagnostic or treatment recommendations, prognosis, risks and benefits of management options, instructions, compliance or risk-factor reduction. This note was created with the assistance of a speech recognition program. While intending to generate a timely document that accurately reflects the content of the visit, no guarantee can be provided that every grammatical or spelling mistake has been or will be identified or corrected. Thank you for your understanding. documented in this encounter [facility] [employer] 12-06-2024 Instructions Mariajose Clemente MD MPH - 12/06/2024 12:00 PM EST Seronegative rheumatoid arthritis -a type of inflammatory arthritis that typically affects the hands and feet -does not have positive serum markers (antibodies) -does respond to medications used for rheumatoid arthritis Erosive osteoarthritis -a type of non-inflammatory arthritis that typically affects the hands -does not respond to medications used for rheumatoid arthritis -is a type of degenerative arthritis (wear and tear arthritis) documented in this encounter [facility] [employer] 07-13-2024 Note FL SWALLOW MOTILITY FUNCTION Procedure: Swallow study History: 73 years old lady who presented with difficulty swallowing and history of Parkinson's Outpatient Therapist: Dr. Kendall. Study but was performed in conjunction with speech therapist. Exam/Technique: Real-time fluoroscopy was performed in the lateral projection following oral ingestion of different oral consistencies mixed with barium. Study demonstrated adequate initiation and swallowing mechanism with no gross penetration or aspiration. However, there was significant vallecular stasis with the thick consistency which eventually cleared with thin liquid. Cervical spine demonstrate multiple large anterior bridging osteophytes primarily at C4-C5 and C5-C6. Total fluoroscopy time 1.1 minutes with air Kerma radiation dose of 10.49 mGy and total of 9 cine runs. IMPRESSION: Follicular stasis with no penetration or aspiration. There are few coarse anterior bridging osteophytes at C4-C5 and C5-C6. Please referred to the speech pathologist note for the clinical recommendation. Finalized by Tyree Kendall MD on 07/13/2024 11:56 AM [facility] Evaluation note Diagnosis Parkinson's disease ([facility]) [facility] Bilateral hand pain Pain in limb [facility] Diagnosis Parkinson's disease (CMS-HCC) Restless leg syndrome Restless legs syndrome (RLS) documented in this encounter [facility]* Diagnosis Cervical radiculopathy- Primary Brachial neuritis or radiculitis nos Chronic pain syndrome Neck pain, chronic documented in this encounter [facility]* Diagnosis Seronegative rheumatoid arthritis (CMS-HCC)- Primary Rheumatoid arthritis Neck pain Cervicalgia Muscle tension pain Inflammatory polyarthritis (CMS-HCC) Unspecified inflammatory polyarthropathy Anti-cardiolipin antibody positive Other and unspecified nonspecific immunological findings Raynaud disease without gangrene Primary osteoarthritis involving multiple joints Fibromyalgia Unspecified myalgia and myositis documented in this encounter [facility]* Diagnosis Chronic pain syndrome- Primary Neck pain, chronic Cervical radiculopathy Brachial neuritis or radiculitis nos documented in this encounter [facility]* Diagnosis Insomnia due to medical condition Organic insomnia, unspecified documented in this encounter [facility]* Diagnosis Restless leg syndrome Restless legs syndrome (RLS) documented in this encounter [facility]* Diagnosis Chronic pain syndrome- Primary Neck pain, chronic Cervical radiculopathy Brachial neuritis or radiculitis nos documented in this encounter [facility]* Diagnosis Cervical radiculopathy- Primary Brachial neuritis or radiculitis nos documented in this encounter [facility]* Diagnosis Restless leg syndrome Restless legs syndrome (RLS) documented in this encounter [facility]* Diagnosis Neck pain- Primary Cervicalgia documented in this encounter [facility]* Diagnosis Cervical spinal stenosis- Primary Spinal stenosis in cervical region Cervical spondylosis Cervical spondylosis without myelopathy Neck pain Cervicalgia documented in this encounter [facility]* Diagnosis Insomnia due to medical condition Organic insomnia, unspecified documented in this encounter [facility]* Diagnosis Parkinson's disease with dyskinesia and fluctuating manifestations ([facility])- Primary Parkinson's disease ([facility]) Insomnia due to medical condition Organic insomnia, unspecified documented in this encounter [facility]* Diagnosis Cervical radiculopathy- Primary Brachial neuritis or radiculitis nos documented in this encounter [facility]* Diagnosis Cervical radiculopathy- Primary Brachial neuritis or radiculitis nos documented in this encounter [facility]* Diagnosis Encounter for screening mammogram for malignant neoplasm of breast- Primary documented in this encounter [facility]* Diagnosis Health care maintenance- Primary Primary hypertension Unspecified essential hypertension Chronic heart failure with preserved ejection fraction ([facility]) Chronic obstructive pulmonary disease, unspecified COPD type ([facility]) Parkinson's disease ([facility]) Mixed hyperlipidemia Complication associated with silicone gel-filled breast implant documented in this encounter [facility]* Diagnosis Inflammatory polyarthritis ([facility])- Primary Unspecified inflammatory polyarthropathy Seronegative rheumatoid arthritis ([facility]) Rheumatoid arthritis Medication monitoring encounter Encounter for therapeutic drug monitoring Neck pain Cervicalgia documented in this encounter [facility]* Diagnosis Parkinson's disease with dyskinesia and fluctuating manifestations ([facility]) documented in this encounter [facility]* Diagnosis Mixed hyperlipidemia documented in this encounter [facility]* Diagnosis Health care maintenance- Primary documented in this encounter [facility]* Diagnosis Health care maintenance- Primary documented in this encounter [facility]* Diagnosis Chronic heart failure with preserved ejection fraction ([facility])- Primary Mixed hyperlipidemia Nonrheumatic mitral valve regurgitation documented in this encounter [facility]* Diagnosis Chronic pain syndrome- Primary Cervical radiculopathy Brachial neuritis or radiculitis nos Neck pain, chronic Chronic bilateral low back pain without sciatica documented in this [facility]* Diagnosis Health care maintenance Dysuria- Primary Frequency of urination Urinary frequency documented in this encounter [facility]* Diagnosis Dehydration- Primary Malnutrition, unspecified type Parkinson's disease ([facility]) documented in this encounter [facility]* Diagnosis Health care maintenance- Primary Iron deficiency anemia, unspecified iron deficiency anemia type Weight loss Loss of weight Decreased appetite Anorexia Parkinson's disease (CMS-HCC) Inflammatory polyarthritis (CMS-HCC) Unspecified inflammatory polyarthropathy Primary hypertension Unspecified essential hypertension Chronic heart failure with preserved ejection fraction (CMS-HCC) Insomnia, unspecified type Hyperbilirubinemia Disorders of bilirubin excretion Elevated serum creatinine Other nonspecific findings on examination of blood documented in this encounter [facility]* Diagnosis Parkinson's disease with dyskinesia and fluctuating manifestations ([facility])- Primary Dysphagia, unspecified type documented in this encounter [facility]* Diagnosis Parkinson's disease (CMS-HCC) documented in this encounter [facility]* Diagnosis Inflammatory polyarthritis (CMS-HCC)- Primary Unspecified inflammatory polyarthropathy Seronegative rheumatoid arthritis ([facility]) Rheumatoid arthritis Primary osteoarthritis involving multiple joints Chronic bilateral low back pain without sciatica Medication monitoring encounter Encounter for therapeutic drug monitoring Neck pain Cervicalgia Muscle tension pain documented in this encounter [facility]* Diagnosis Wheezing documented in this encounter [facility]* Diagnosis Parkinson's disease (CMS-HCC) documented in this encounter [facility]* Diagnosis Cervical radiculopathy- Primary Brachial neuritis or radiculitis nos documented [facility] this [facility] on filedocumented in this encounter [facility] filedocumented in this encounter [facility] System[facility]ructions[facility] on filedocumented in this encounter [facility] on filedocumented in this encounter [facility]Not on filedocumented in this encounter [facility] on filedocumented in this encounter [facility] on filedocumented in this encounter [facility]Not on filedocumented in this encounter [facility] on filedocumented in this encounter [facility] on filedocumented in this encounter [facility] on filedocumented in this encounter [facility]Not on filedocumented in this encounter [facility]Not on filedocumented in this encounter [facility]Not on filedocumented in this encounter [facility]Not on filedocumented in this encounter [facility] System[facility]ructionsNot on filedocumented in this encounter [facility] Summary Purpose Family History No Family History Records FoundNo Family History Records FoundNo Family History Records FoundNo Family History Records FoundNo Family History Records Found Advance Directives Date Activated Date Inactivated Comments 01/17/2022 2:54 PM 01/22/2022 5:04 PM Date Activated Date Inactivated Comments 01/17/2022 2:54 PM 01/22/2022 5:04 PM Additional Source Comments INFORMATION SOURCE (unrecogn ized section and content) DATE CREATED AUTHOR 07/02/2024 [facility] DATE CREATED AUTHOR AUTHOR'S ORGANIZ ATION 07/24/[address] [facility] DATE CREATED AUTHOR AUTHOR'S ORGANIZ ATION 02/12/2025 [facility] DATE CREATED AUTHOR AUTHOR'S ORGANIZ ATION 05/05/2025 [facility] DATE CREATED AUTHOR AUTHOR'S ORGANIZ ATION 06/29/2025 [facility] Reason for Visit (unrecogniz ed section and content) Reason Comments Med Refill Reason Comments New Patient New patient to this provider is here for bilateral neck pain for over 3 weeks, also radiates to the back of the head causing headaches, ROM is also affected, heat provides mild relief Reason Comments Consult New patient cervical [facility] films no w/c mailed pkt xrays prior Reason Comments Annual Exam Patient is here toda y for her annual exam, states to feel okay. Reason Onset Date Comments Appeal for Echo Prior Auth 03/16/2025 Reason Comments Follow-up 6 MO, TESTING MB, L/ S BCD, SCHED W/PT, BCD ONLY Reason Comments Back Pain Pt presenting today for f/u BL C3-4 TFESI (LT 01/30 & RT 02/13/25). Pt reports the relief took 2-3 weeks before the relief kicked in but is still lasting. Pt states her neurologist switched one of her medications which helped at first but lead to hallucinations and effected her eyesight all over the last 3 weeks. Pt not currently utilizing Tramadol. Test Previous Evaluation and Treatment Diagnostics: MRI Cervical 12/2024Medications tried: OTC, NSAIDS, Muscle Relaxants, and NarcoticsHome Exercise Program: Guided by physicianPhysical Therapy: daily hep and stretchesChiropractic Care: NoPain Management: Injections & MedicationPrior Surgery: NonePain Score: 9/10 No blood thinnerNo cardiac deviceNot diabeticIodine Allergies: Iodinated Contrast Media Reason Onset Date Comments call back 05/03/2025 Medical Concern 05/03/2025 Reason Comments Annual Exam Reason Onset Date Comments Care Navigation 05/09/2025 Reason Onset Date Comments Physical Therapy / Speech Therapy 05/31/2025 Reason Onset Date Comments Med Refill 06/19/2025 Reason Onset Date Comments Med Refill 06/27/2025 Reason Onset Date Comments Med Refill 06/30/2025 Care Teams (unrecognized sec tion and content) Insurance Counselor Relationship Specialty Start Date End Date Brenden Caba [employer]-PERCUSSION WELDING MACHINE OPERATOR [address] [place] [address], [address] [place] [address] PCP - General 03/19/15 Insurance Counselor Relationship Specialty Start Date End Date Mi Dominguez MD [address] [place] [address], [address] [place] [address] PCP - General 12/01/13 Insurance Counselor Relationship Specialty Start Date End Date Brenden Caba ENG[employer]-PERCUSSION WELDING MACHINE OPERATOR [address] [place] [address], [address] [place] [address] PCP - General 03/19/15 Insurance Counselor Relationship Specialty Start Date End Date Brenden Caba, ENG[employer]-PERCUSSION WELDING MACHINE OPERATOR [address], [address] [place] [address] PCP - General 03/19/15 Insurance Counselor Relationship Specialty Start Date End Date Brenden Caba, ENGINE[employer]-PERCUSSION WELDING MACHINE OPERATOR [address], [address] [place] [address] PCP - General 03/19/15 Insurance Counselor Relationship Specialty Start Date End Date Brenden Caba, ENGINE[employer]-PERCUSSION WELDING MACHINE OPERATOR [address] [facility], [address] [place] [address] PCP - General 03/19/15 Insurance Counselor Relationship Specialty Start Date End Date Brenden Caba, ENGINE[employer]-PERCUSSION WELDING MACHINE OPERATOR [address], [address] [place] [address] PCP - General 03/19/15 Insurance Counselor Relationship Specialty Start Date End Date Brenden Caba, ENGINEER DES[employer]-PERCUSSION WELDING MACHINE OPERATOR [address], [address] [place] [address] PCP - General 03/19/15 Insurance Counselor Relationship Specialty Start Date End Date Brenden Caba, ENGINE[employer]STRU[employer]-PERCUSSION WELDING MACHINE OPERATOR [address], [address] [place] [address] PCP - General 03/19/15 Insurance Counselor Relationship Specialty Start Date End Date Brenden Caba, ENGINE[employer]-PERCUSSION WELDING MACHINE OPERATOR [address], [address] [place] [address] PCP - General 03/19/15 Insurance Counselor Relationship Specialty Start Date End Date Brenden Caba, ENGINEER DES[employer]STRUCTION-PERCUSSION WELDING MACHINE OPERATOR [address], [address] [place] [address] PCP - General 03/19/15 Insurance Counselor Relationship Specialty Start Date End Date Brenden Caba, ENGINEER DES[employer]STRUCTION-PERCUSSION WELDING MACHINE OPERATOR [address], [address] [place] [address] PCP - General 03/19/15 Insurance Counselor Relationship Specialty Start Date End Date Brenden Caba, ENGINEER [employer]STRUCTION-PERCUSSION WELDING MACHINE OPERATOR [address], [address] [place] [address] PCP - General 03/19/15 Insurance Counselor Relationship Specialty Start Date End Date Brenden Caba, ENGINEER [employer]STRU[employer]-PERCUSSION WELDING MACHINE OPERATOR [address], [address] [place] [address] PCP - General 03/19/15 Insurance Counselor Relationship Specialty Start Date End Date Brenden Caba, ENGINEER DESIGN [employer]STRUCTION-PERCUSSION WELDING MACHINE OPERATOR [address], [address] [place] [address] PCP - General 03/19/15 Insurance Counselor Relationship Specialty Start Date End Date Brenden Caba, ENGINEER [employer]STRUCTION-PERCUSSION WELDING MACHINE OPERATOR [address], [address] [place] [address] PCP - General 03/19/15 Insurance Counselor Relationship Specialty Start Date End Date Brenden Caba, ENGINEER DESIGN AND CONSTRUCTION-PERCUSSION WELDING MACHINE OPERATOR [address], [address] [place] [address] PCP - General 03/19/15 Insurance Counselor Relationship Specialty Start Date End Date Brenden Caba, ENGINEER DESIGN AND CONSTRUCTION-PERCUSSION WELDING MACHINE OPERATOR [address], [address] [place] [address] PCP - General 03/19/15 Insurance Counselor Relationship Specialty Start Date End Date Brenden Caba, ENGINEER DESIGN AND CONSTRUCTION-PERCUSSION WELDING MACHINE OPERATOR [address], [address] [place] [address] PCP - General 03/19/15 Insurance Counselor Relationship Specialty Start Date End Date Brenden Caba, ENGINEER DESIGN AND CONSTRUCTION-PERCUSSION WELDING MACHINE OPERATOR [address], [address] [place] [address] PCP - General 03/19/15 Insurance Counselor Relationship Specialty Start Date End Date Brenden Caba, ENGINEER DESIGN AND CONSTRUCTION-PERCUSSION WELDING MACHINE OPERATOR [address], [address] [place] [address] PCP - General 03/19/15 Insurance Counselor Relationship Specialty Start Date End Date Brenden Caba, ENGINEER DESIGN AND CONSTRUCTION-PERCUSSION WELDING MACHINE OPERATOR [address], [address] [place] [address] PCP - General 03/19/15 Insurance Counselor Relationship Specialty Start Date End Date Brenden Caba, ENGINEER DESIGN AND CONSTRUCTION-PERCUSSION WELDING MACHINE OPERATOR [address], [address] [place] [address] PCP - General 03/19/15 Insurance Counselor Relationship Specialty Start Date End Date Brenden Caba, ENGINEER DESIGN AND CONSTRUCTION-PERCUSSION WELDING MACHINE OPERATOR [address], [address] [place] [address] PCP - General 03/19/15 Insurance Counselor Relationship Specialty Start Date End Date Brenden Caba, ENGINEER DESIGN AND CONSTRUCTION-PERCUSSION WELDING MACHINE OPERATOR [address], [address] [place] [address] PCP - General 03/19/15 Insurance Counselor Relationship Specialty Start Date End Date Brenden Caba, ENGINEER DESIGN AND CONSTRUCTION-PERCUSSION WELDING MACHINE OPERATOR [address], [address] [place] [address] PCP - General 03/19/15 Insurance Counselor Relationship Specialty Start Date End Date Brenden Caba ENGINEER DESIGN AND CONSTRUCTION-PERCUSSION WELDING MACHINE OPERATOR [address] [facility], [address] [place] [address] PCP - General 03/19/15 Insurance Counselor Relationship Specialty Start Date End Date Brenden Caba, ENGINEER DESIGN AND CONSTRUCTION-PERCUSSION WELDING MACHINE OPERATOR [address], [address] [place] [address] PCP - General 03/19/15 Insurance Counselor Relationship Specialty Start Date End Date Brenden Caba, ENGINEER DESIGN AND CONSTRUCTION-PERCUSSION WELDING MACHINE OPERATOR [address], [address] [place] [address] PCP - General 03/19/15 Insurance Counselor Relationship Specialty Start Date End Date Brenden Caba, ENGINEER DESIGN AND CONSTRUCTION-PERCUSSION WELDING MACHINE OPERATOR [address], [address] [place] [address] PCP - General 03/19/15 Insurance Counselor Relationship Specialty Start Date End Date Brenden Caba, ENGINEER DESIGN AND CONSTRUCTION-PERCUSSION WELDING MACHINE OPERATOR [address], [address] [place] [address] (work) PCP - General 03/19/15 FOR RECORDS PERTAINING TO PATIENTS WHO ARE OR HAVE BEEN ENROLLED IN A CHEMICAL DEPENDENCY/SUBSTANCEABUSE PROGRAM, SOME INFORMATION MAY BE OMITTED. This clinical summary was aggregated from multiple sources. Caution should be exercised in using it in the provision of clinical care. This summary normalizes information from multiple sources, and as a consequence, information in this document may materially change the coding, format and clinical context of patient data. In addition, data may be omitted in some cases. CLINICAL DECISIONS SHOULD BE BASED ON THE PRIMARY CLINICAL RECORDS. [facility]. provides no warranty or guarantee of the accuracy or completeness of information in this document.
== END 2025-07-12 12:13 | disposition home or self-care (01) ==
PROVIDERS: Visit Provider Nurse Practitioner
DX: M47.812 Spondylosis without myelopathy or radiculopathy, cervical region (principal)
CPT/HCPCS: 72050; G0463

== ENCOUNTER 2025-07-24 12:46 | Day surgery (SDC) | payer OTHER, SELFPAY ==
--- OUTSIDE RECORDS SUMMARY | 2024-06-29 07:15 | XMS_ITS ---
Author Organization The [facility] in [place] Address [address] [place] [address] Care Team Providers Care Network Programmer Name Role Phone Jesenia Peng CNP Primary Care Provider Unavail Joe Bui DO Unavailable [phone] REASON FOR VISIT -4 Month Follow Up- Encounters Encounter Location Date Provider Diagnosis Rheumatology [facility] [address] [place] [address] 06/29/2024 Joe Johnson Plan Of Treatment No Information Progress Notes * Hamilton MADERAOB: (74 yo F)Acc No.[id number]:06/29/2024 UNLOCKED PROGRESS NOTE Established Patient: Beena RHODES Provider: Rishi Johnson DO :1950 A ge:73 Y S ex:Female Date:06/29/2024 [facility] [address] [facility] Pcp:Jesenia Peng CNP Subjective: * Chief Complaints: * 1 . -4 Month Follow Up-. * Medical History: Objective: * Vitals: Assessment: Plan: * Treatment: * * Electronic signature of Amy Johnson DO, DO, [id number] on 07/24/2025 at 12:49 PM EDT Sign off status: Pending Visit Status: R /S (Rescheduled) * Provider: Rishi Johnson DO Date: 0 06/29/2024 Generated for Viri ansari/Aguila/Sophia on: 0 07/24/2025 12:49 PM EDT
--- OUTSIDE RECORDS SUMMARY | 2024-07-19 08:35 | XMS_ITS ---
Author Organization The [facility] in [place] Address [address] [place] [address] Care Team Providers Care Supervisor Telephone Clerks Name Role Phone Jesenia Peng CNP Primary Care Provider Unavail able Provider, Lab Unavailable [phone] REASON FOR VISIT sl Encounters Encounter Location Date Provider Diagnosis [facility] [address] [place] [address] 07/19/2024 Lab Provider Plan Of Treatment No Information Progress Notes * SANTY, DawRadhikaOB: (74 yo F)Acc No.[id number]:07/19/2024 UNLOCKED PROGRESS NOTE Progress Note Patient: Beena RHODES Provider: Yogesh youssef Provider :1950 A ge:73 Y S ex:Female Date:07/19/2024 Address:[facility] [address] [facility] Pcp:Jesenia Peng CNP Check In:12:31 PM ESTCheck O ut:12:36 PM EST Subjective: * Chief Complaints: * 1 . Sl. * Medical History: Objective: * Vitals: Assessment: Plan: * Treatment: * * Electronic signature of Lab Provider on 07/24/2025 at 12:50 PM EDT Sign off status: Pending Visit Status: C HK (Check Out) * Provider: Yogesh youssef Provider Date: 0 07/19/2024 Generated for Printi ng/Faxing/eTransmitting on: 0 07/24/2025 12:50 PM EDT
--- OUTSIDE RECORDS SUMMARY | 2024-11-16 07:15 | XMS_ITS ---
Author Organization The [facility] in [place] Address [address] [place] [address] Care Team Providers Care Powder Carrier Name Role Phone Jesenia Peng CNP Primary Care Provider Unavail Joe Bui DO Unavailable [phone] REASON FOR VISIT -4 Month Follow Up- Encounters Encounter Location Date Provider Diagnosis Rheumatology [facility] [address] [place] [address] 11/16/2024 Joe Johnson Plan Of Treatment No Information Progress Notes * Hamilton MADERAOB: (74 yo F)Acc No.[id number]:11/16/2024 UNLOCKED PROGRESS NOTE Established Patient: Beena RHODES Provider: Rishi Johnson DO :1950 A ge:74 Y S ex:Female Date:11/16/2024 [facility] [address] [facility] Pcp:Jesenia Peng CNP Subjective: * Chief Complaints: * 1 . -4 Month Follow Up-. * Medical History: Objective: * Vitals: Assessment: Plan: * Treatment: * * Electronic signature of Amy Johnson DO, DO, [id number] on 07/24/2025 at 12:49 PM EDT Sign off status: Pending Visit Status: C ANC (Cancelled) * Provider: Rishi Johnson DO Date: 0 11/16/2024 Generated for Viri ansari/Aguila/Marquiseitting on: 0 07/24/2025 12:49 PM EDT
[2025-07-24 12:21] VITALS: BP 153/93; PULSE 93; TEMP 36.6; O2SAT 98
[2025-07-24 12:40] VITALS: BP 193/102; BP 200/102; PULSE 95; PULSE 96; O2SAT 93; O2SAT 94
[2025-07-24] MEDS: LIDOCAINE HCL 2% 400 MG/20 ML MDV INJ (12:42)
[2025-07-24] MEDS: BUPIVACAINE HCL 0.25% PF 25 MG/10 ML VIAL 6 ML INJ (12:42)
--- NOTE | 2025-07-24 12:47 | W.PM.PROCNOT ---
Date of procedure: 07/24/25 Pre-op diagnosis: Pain due to cervical spondylosis without myelopathy Post-op diagnosis: same as pre-op Procedure: Procedure: Bilateral C5-6, 6-7 medial branch block Medications: Bupivacaine 0.25% 6cc The patient was seen and examined in the preoperative holding area.? The informed consent was obtained and placed on the chart.? The patient was brought to the medical procedure unit and placed in the prone position.? A timeout was completed verifying correct patient, procedure site, positioning, plan, and special equipment.? Using aseptic technique, the needle was placed at left C5.? Under direct fluoroscopic visualization, a Quincke tip needle was advanced to the midpoint of the waist of the articular pillar at the respective medial branch segment. The above-mentioned injectate was placed in a 1 mL aliquot proceeded by negative aspiration.? The needle was removed.? The procedure was completed at all left C6, 7. The same procedure, at the same levels, was then completed on the right side. Insertion site was covered.? Patient was taken to the postprocedural recovery area and monitored for an appropriate length of time before found suitable for discharge in the accompaniment of a responsible adult. Anesthesia: Local Surgeon: Miil Thomas Pathology: none sent Condition: stable Disposition: no change
--- OUTSIDE RECORDS SUMMARY | 2025-07-24 12:49 | XMS_ITS | Clinical Summary ---
Author Organization [facility] Address [address] [place] [address] Care Team Providers Care Set Up Worker Name Role Phone Unavailable Primary Care Provider [...]
--- OUTSIDE RECORDS SUMMARY | 2025-07-24 12:50 | XMS_ITS | Patient Health Record ---
Author Organization [facility] [place] Address [address] [place] [address] Care Team Providers Care Beater Room Supervisor Name Role Phone Jesenia Peng CNP Primary Care Provider Unavail able Ashok Delcid Unavailable [phone] Joe Johnson DO Unavailable [phone] Allergies No Known Allergies Reason For Referral No Information Medications Medication SIG (Take, Route, Frequency, Duration) Notes Start Date End Date Status predniSONE 5 MG take 2 tabs/day x 1 wk, then 1 1/2 tabs/day x 1wk, then 1 tab/day x 1 wk, then 1/2 tab/day x 1 wk Orally Daily; Duration: 30 days had side effects 09/22/2023 Not-Taking Rasagiline Mesylate Active Lunesta Active Lasix Not-Taking Pramipexole Dihydrochloride Active Ciclopirox Active Carbidopa-Levodopa A ctive Losartan Potassium A ctive clonazePAM Active Amantadine HCl Activ e Advil Active Baclofen Active Aspirin Active Social History Tobacco Use: Social History Observation Description Date Details (start date - stop date) Former Smoker NA - NA Tobacco Control (Standard) Question Answer Notes Tobacco use: Former smoker Section Notes: former smoker glass wine/day (shoutr), 3 children (Trice Ramos, psychologist in [place]; ) , 6grandchildren (born with defective heart) occupation = retired 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 grade former smoker glass wine/day (shoutr), 3 children (Trice Ramos, psychologist in [place]; ) , 6grandchildren (born with defective heart) occupation = retired [employer], former smoker glass wine/day (shoutr), 3 children (Trice Ramos, psychologist in [place]; ) , 6grandchildtorres (born with defective heart) occupation = retired [employer] grade, former smoker glass wine/day (shoutr), 3 children (Trice Ramos, psychologist in [place]; ) , 6grandchildtorres (born with defective heart) occupation = retired [employer] grade, former smoker glass wine/day (shoutr), 3 children (Trice Ramos, psychologist in [place]; ) , 6grankeyshawn (born with defective heart) occupation = retired [employer] grade, Problems Problem Type SNOMED Code ICD Code Onset Dates Problem Status W/U Status Risk Notes Problem Chronic pain (73649438) Other chronic pain (G89.29) Active confirmed Problem Anxiety (41337827) Anxiety (F41.9) Active confirmed Problem Chronic insomnia (116856776) Chronic insomnia (F51.04) Active confirmed Problem Fibromyalgia (745143694) Fibromyalgia (M79.7) Active confirmed Problem Nuclear senile cataract (818902383) Nuclear sclerosis of both eyes (H25.13) Active confirmed Med Problem Degenerative disc disease (26383573) DDD (degenerative disc disease), lumbar (M51.36) Active confirmed Problem Punctate keratitis (72837766) SPK (superficial punctate keratitis), bilateral (H16.143) Active confirmed High Problem Generalized osteoarthritis (780032627) 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) Active confirmed Problem Raynaud's disease (657485665) Raynauds phenomenon without gangrene (I73.00) Active confirmed Problem Dry eyes (481266270) Dry eyes (H04.123) Active confirmed High Problem Localized, primary osteoarthritis of the pelvic region and thigh (030631262) Arthritis of both hips (M16.0) Active confirmed Problem Arthritis of both knees (4375606244314230 ) Arthritis of both knees (M17.0) Active confirmed Problem Localized, primary osteoarthritis of the hand (881905790) Arthritis of hand, right (M19.041) Active confirmed Problem Arthritis of right wrist (2640023390930812 ) Arthritis of right wrist (M19.031) Active confirmed Problem Arthritis of left wrist (6814780375090736 ) Arthritis of left wrist (M19.032) Active confirmed Problem Localized, primary osteoarthritis of the hand () Arthritis of hand, left (M19.042) Active confirmed Problem Low vision, both eyes (disorder) (823508574) Decreased vision in both eyes (H54.3) Active confirmed Problem Localized, primary osteoarthritis of the hand () Arthropathy of hand (M19.049) Active confirmed Encounters Encounter Location Date Provider Diagnosis Ophthal[facility] [address] [place] [address] 03/29/2025 Ashok Delcid Dry eyes H04.123 ; SPK (superficial punctate keratitis), bilateral H16.143 ; Nuclear sclerosis of both eyes H25.13 and Decreased vision in both eyes H54.3 Assessments Encounter Date Diagnosis (ICD Code) Assessment Notes Treatment Notes Treatment Clinical Notes Section Notes 03/29/2025 Dry eyes (ICD-10 - H04.123) RECOMMEND VERY FREQUENT ART TEARS Q 2 HOURS OU. X 3 DAYS, THEN QID OU 03/29/2025 SPK (superficial punctate keratitis), bilateral (ICD-10 - H16.143) 03/29/2025 Nuclear sclerosis of both eyes (ICD-10 - H25.13) ZYSIK REFERRAL OK TO WAIT TO HAVE PHACO. DISC DRY EYES AFFECTING VISION. DISC PATIENT'S MEDICATIONS 03/29/2025 Decreased vision in both eyes (ICD-10 - H54.3) Plan Of Treatment Pending Test Test Name Order Date CRP (C REACTIVE PROTEIN) EXTENDED RANGE 03/07/2024 SED RATE (ESR) 03/07/2024 FERRITIN 03/07/2024 PTH INTACT (PARATHYROID HORMONE) 024 [id number] 1 IGG AND IGM 2023 [id number] 1 IGG AND IGM 2023 ANTI-CARDIOLIPIN IGA 03/04/2024 ANTI-CARDIOLIPIN IGM 03/04/2024 [id number] 1 AB, IGA 12/17/2023 LUPUS ANTICOAGULANT SCREEN, REFLEX CONFI RMATION 12/17/2023 LUPUS ANTICOAGULANT SCREEN, REFLEX CONFI RMATION 03/02/2024 ANTI-CARDIOLIPIN IGG 03/04/2024 TSH WITH REFLEX TO T4, FREE 03/07/2024 Insurance Providers Payer Name Payer Address Payer Phone Subscriber Number Group Number Insured Name Patient Relationship to Insured Coverage Start Date Coverage End Date [facility] [place] [address] [address] [place] [address] [id number] [place] Spouse - patient is the spouse of the insured 4 Medical (General) History Medical History History ICD Code hx of migraine headaches HTN depression Osteoarthritis Fibromyalgia DDD parkinsons disease RA Surgical History Surgery Date(Month/Year) colonoscopy breast implants Hospitalization History Reason Date(Month/Year) sepsis x 1 wk child x 3
--- OUTSIDE RECORDS SUMMARY | 2025-07-24 12:50 | XMS_ITS | Clinical Summary ---
Author Organization [facility] Address [address] [facility], [address] [place] [address] Care Team Providers Care Printer'S Assistant Name Role Phone John Dominguez MD Primary Care Provider [phone] Allergies No known active allergies Medications rasagiline [...] (Cologuard): Average risk 1996 Sigmoidoscopy/CT colonography 1996 Flu vaccine (#1) 06/09/2025 11/14/2022, , 08/27/2020, Additional history exists COVID-19 Vaccine ( season) 2025 11/14/2022, 01/19/2021, 12/22/2020 Breast cancer screen 01/12/2026 01/13/2024, 09/12/2021, 09/12/2021, [...] lumbar spine and left hip on a [employer]ite[employer] system. COMPARISON: None. HISTORY: ORDERING SYSTEM PROVIDED HISTORY: Osteopenia after menopause Gender: F Age: 73 y/o FINDINGS: LUMBAR SPINE: L1, L3 BMD: 1.224 g/cm2 T-score: 0.4 Z-score: 2.8 LEFT TOTAL HIP: BMD: 0.911 g/cm2 T-score: -0.8 Z-score: 1.4 LEFT FEMORAL NECK: BMD: 0.834 g/cm2 T-score: -1.5 Z-score: 0.8 FRAX 10-YEAR PROBABILITY OF FRACTURE: 10-year fracture risk is performed using the [employer] FRAX calculator based on patient-reported risk factors. [...] lumbar spine and left hip on a [employer]ite[employer] system. COMPARISON: None. HISTORY: ORDERING SYSTEM PROVIDED [...] Template code: [id number] Jesenia Danish GARCIA - GRADE CHECKER IMG DEXA ORDERABLES Fin al Result * [...] to the patient regarding the results. The [employer] recommends annual mammograms for [...] implants. Benign-appearing calcifications are stable. Jesenia Peng EXPERIMENTAL MACHINING LAB MANAGER - GRADE CHECKER IM MAMMOGRAPHY ORDERAB LES Final Result from Last 3 Months or Most Recently Relevant to Health Maintenance Insurance [facility] Care Teams Printer'S Assistant Relationship Specialty Start Date End Date John Dominguez MD PCP - General 12/01/13
--- OUTSIDE RECORDS SUMMARY | 2025-07-24 17:02 | XMS_ITS | CCD ---
Author Organization [facility] Care Team Providers Care Welt Edge Rounder Name Role Phone JOE JOHNSON Referring Unavailable [...] Care Unavailable JOE JOHNSON Referring Unavailable Lent BILINGUAL LEGAL ASSISTANT-HOTEL CLERK, Brenden L Primary Care Provider Mi Dominguez MD Primary Care Provider LENT, BRENDEN L Referring Unavailable LENT, BRENDEN L Primary Care Unavailable Lent BILINGUAL LEGAL ASSISTANT-HOTEL CLERK, Brenden L Primary Care Provider LENT, BRENDEN [...] Unavailable LENT, BRENDEN L Referring Unavailable LENT, RBENDEN L Primary Care Unavailable DUONG MENENDEZ Attending Unavailable LENT, BRENDEN L Referring Unavailable LENT, BRENDEN L Primary Care Unavailable ANGELICA, MI J Referring Unavailable LENT, BRENDEN L Primary Care Unavailable ANGELICA, MI J Referring Unavailable LENT, BRENDEN L Primary Care Unavailable ANGELICAMI HALEY J Attending Unavailable LENT, BRENDEN L Referring Unavailable LENT, BRENDEN L Primary Care Unavailable ANGELICA, MI J Referring Unavailable LENT, BRENDEN L Primary Care Unavailable ANGELICA, MI J Referring Unavailable LENT, BRENDEN L Primary Care Unavailable ANGELICA, MI J Referring Unavailable LENT, BRENDEN L Primary Care Unavailable LENT, BRENDEN L Referring Unavailable LENT, BRENDEN L Primary Care Unavailable LENT, BRENDEN L Attending Unavailable LENT, BRENDEN L Referring Unavailable LENT, BRENDEN L Primary Care Unavailable LENT, BRENDEN L Referring Unavailable LENT, BRENDEN L Primary Care Unavailable AMBATI, SHELTONALA Attending Unavailable LENT, BRENDEN L Referring Unavailable LENT, BRENDEN L Primary Care Unavailable AMBATIMARIAJOSE Attending Unavailable LENT, BRENDEN L Attending Unavailable LENT, BRENDEN L Referring Unavailable [...] Unavailable LENT, BRENDEN L Primary Care Unavailable PIERCE VTHALIAOFELIA Referring Unavailable YUSRA HAMLIN W Referring Unavailable LENT, BRENDEN L Primary Care [...] ISIDRO WOODALL Attending Unavailable LENT, BRENDEN L Attending Unavailable LENT, BRENDEN L Referring Unavailable [...] Care Unavailable AMSDELL, TRICE L Attending Unavailable AMSDELL, TRICE L Referring Unavailable LENT, BRENDEN L Attending Unavailable LENT, BRENDEN L Referring Unavailable LENT, BRENDEN L Primary Care Unavailable COLLEEN RUSSELL Attending Unavailable LENT, BREDNEN L Referring Unavailable LENT, BRENDEN L Primary Care Unavailable Allergies Allergy Classification Reported Allergen(s) Allergy Type Date of Onset Reaction(s) Facility (20 sources) Iodinated Contrast Media; Translations: [IODINATED CONTRAST MEDIA] Propensity to adverse reactions to drug 12-24-[address] [facility] Medications Current Medications Medication Drug Class(es) Dates Sig (Normalized) Sig (Original) [id number] 200 actuat albuterol 0.09 mg/actuat metered dose inhaler (13 sources) beta2-Adrenergic Agonist Start: 06-27-2025 take 2 puff(s) by inhalation every six hours as needed for wheezing albuterol (PROVENTIL HFA;VENTOLIN HFA) 90 mcg/actuation inhaler Indications: Wheezing Inhale 2 puffs every 6 (six) hours as needed for wheezing. 18 g 2 06/27/2025 Active amantadine hydrochloride 100 mg oral tablet (20 sources) Influenza A M2 Protein Inhibitor Start: 03-01-2024 End: 07-03-2025 amantadine (SYMMETREL) 100 mg tablet Indications: Parkinson's disease ([facility]) Take 1-2 tablets by mouth at 6am and 1 tablet at 12pm 270 tablet 3 07/03/2025 Active calcium chloride 0.001 meq/ml / glucose 50 mg/ml / potassium chloride [...] , Malnutrition, unspecified type , Parkinson's disease ([facility]) Infuse 1,000 mL into a venous catheter [...] Acid Decarboxylation Inhibitor, Aromatic Amino Acid Start: 025 carbidopa-levodopa (SINEMET CR) 25-100 mg per CR tablet Indications: Parkinson's disease with dyskinesia and fluctuating manifestations ([facility]) Take 2 tabs 6am, 1 tab 1130am, [...] 1 cap at 1pm 60 each 11 01/26/2025 03/07/2025 Discontinued (Reorder) Start: 01-26-2025 take 1 capsule by mo uth in the morning carbidopa-levodopa (CREXONT) 70-280 mg capsule,IR -extend rel,biphase Indications: Parkinson's disease with dyskinesia and fluctuating manifestations (CMS-HCC) Take 1 cap by mouth at 630 am and another 1 cap at 1pm 60 each 11 01/26/2025 Active clonazePAM 0.5 mg oral tablet (20 sources) Benzodiazepine Start: 12-05-2024 End: 07-14-2025 clonazePAM (KlonoPIN) 0.5 mg tablet Indications: Insomnia due to medical condition , REM sleep behavior disorder Take 3 tablets at bedtime 270 tablet 1 07/14/2025 Active Start: 02-15-2024 clonazePAM (Kl onoPIN) 0.5 mg tablet Indications: Insomnia due to medical condition , REM sleep behavior disorder Take one tablet by mouth in the afternoon and 3-4 tablets at bedtime 150 tablet 5 02/15/2024 Active doxycycline hyclate 100 mg oral tablet (5 sources) Tetracycline-class Drug Start: 07-13-2025 End: 07-20-2025 take 1 tablet by mouth in the morning, then take 1 tablet by mouth at bedtime doxycycline (VIBRA-TABS) 100 mg tablet Indications: COPD exacerbation ([facility]) Take 1 tablet (100 mg total) by mouth in the morning and 1 tablet (100 mg total) before bedtime. Do all this for 7 days. 14 tablet 07/13/2025 07/20/2025 Active eszopiclone 2 mg oral tablet (20 [...] Take 3.75 mg by mouth Daily. Active predniSONE 20 mg oral tablet (5 sources) Start: 07-13-2025 predniSONE (DELTASONE) 20 mg tablet Indications: COPD exacerbation (CMS-HCC) Take two tablets (40 mg) daily with food for 5 days 10 tablet 07/13/2025 Active rasagiline 1 mg oral tablet (20 [...] Classification Problem Date Documented Da te Episodic/Chronic Chronic obstructive pulmonary disease and bronchiectasis (20 [...] Translations: [Mixed hyperlipidemia] Onset: 03-09-2017 03-09-2017 Chronic Esophageal disorders (1 source) Peñaloza's esophagus; Translations: [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] 07-20-2025 Chronic Essential hypertension (20 sources) Hypertensive disorder; [...] [Dysphagia, unspecified] 05-17-2025 Episodic Other gastrointestinal disorders (2 sources) Esophageal dysphagia; Translations: [Other dysphagia] 07-20-2025 Episodic Other gastrointestinal disorders (1 source) Other dysphagia; Translations: [Other dysphagia] Onset: 07-20-2025 Episodic Other gastrointestinal disorders (1 source) Dysphagia, unspecified; Translations: [Dysphagia, unspecified] Onset: 05-17-2025 Episodic Other hereditary and degenerative nervous system conditions (4 sources) Restless legs; Translations: [Restless legs syndrome] 11-30-2024 Chronic Other lower respiratory disease (2 sources) Wheezing; Translations: [Wheezing] 06-27-2025 Episodic Other lower respiratory disease (1 source) Cough; Translations: [Acute cough] 07-13-2025 Episodic Other lower respiratory disease (1 source) Dyspnea; Translations: [Shortness of breath] 07-13-2025 Episodic Other lower respiratory disease (2 sources) Wheezing; Translations: [Wheezing] Onset: 07-13-2025 Episodic Other lower respiratory disease (2 sources) Shortness of breath; Translations: [Shortness of breath] Onset: 07-13-2025 Episodic Other lower respiratory disease (1 source) [...] [Abnormal weight loss] Onset: 06-08-2025 Episodic Other upper respiratory infections (1 source) Acute upper respiratory infection, unspecified; Translations: [Acute upper respiratory infection, unspecified] Onset: 06-27-2025 Episodic Parkinson`s disease (20 sources) Parkinson's disease; Translations: [Parkinson's disease] Onset: 03-09-2017 11-20-2024 Chronic Parkinson`s disease (1 source) Parkinson`s disease; Translations: [Parkinson's disease with dyskinesia, with fluctuations] Onset: 01-26-2025 Residual codes; unclassified (4 sources) Insomnia co-occurrent and due to medical condition; Translations: [Insomnia due to medical condition] 12-08-2024 Chronic Residual codes; unclassified (1 source) REM sleep behavior disorder; Translations: [REM sleep behavior disorder] 07-14-2025 Chronic Residual codes; unclassified (1 source) Insomnia due to medical condition; Translations: [Insomnia due to medical condition] Onset: 01-26-2025 Chronic Residual codes; unclassified (1 source) Insomnia; Translations: [Insomnia, unspecified] 05-05-2025 Episodic Rheumatoid arthritis and related disease (9 sources) Inflammatory polyarthropathy; Translations: [Inflammatory polyarthropathy] Onset: 09-29-2024 12-06-2024 Chronic Spondylosis; intervertebral disc disorders; other back problems (20 sources) Degeneration of lumbar intervertebral disc; Translations: [Lumbar degenerative disc disease] Onset: 10-19-2017 10-19-2017 Chronic Spondylosis; intervertebral disc disorders; other back problems (20 sources) Chronic low back pain; Translations: [Chronic bilateral low back pain without sciatica] Onset: 12-09-2016 12-09-2016 Episodic Unclassified (2 sources) Acute cough; Translations: [Acute cough] Onset: 07-13-2025 Unclassified (2 sources) Annual Exam Onset: 02-21-2025 Unclassified (1 source) Consult Onset: 01-23-2025 Unclassified (2 sources) Autogenerated Problem Onset: 07-20-2025 07-20-2025 Unclassified (1 source) Low back pain, unspecified; [...] (20 sources) Mood disorders Onset: 08-09-2024 Resolved: 07-13-2025 08-09-2024 Nonmalignant breast conditions (1 source) Unspecified [...] Onset: 02-19-2022 Resolved: 02-21-2025 02-19-2022 Episodic Other nutritional; endocrine; and metabolic disorders (1 source) Anorexia; Translations: [Anorexia] Onset: 04-17-2025 Episodic Other nutritional; endocrine; and metabolic disorders (1 source) Loss of appetite Onset: 04-17-2025 Episodic Other screening for suspected conditions (not [...] 07-29-2021 Episodic Residual codes; unclassified (1 source) Altered mental status, unspecified; Translations: [Altered mental status, unspecified] Onset: 04-17-2025 Episodic Residual codes; unclassified (1 source) Altered mental status Onset: 04-17-2025 Episodic Residual codes; unclassified (1 source) Personal [...] limb] Onset: 02-19-2022 Resolved: 12-01-2022 12-01-2022 Episodic Sprains and strains (20 sources) Hamstring [...] Test Name Value Interpretation Reference Range Facility XR CHEST 2 VWSon 07-13-2025 XR CHEST 2 VWS XR CHEST 2 VWS History: Cough. Wheezing. History of prior tobacco [...] Tabitha Garcia MD on 07/13/2025 1:31 PM [facility] XR Chest PA and Lateralon History: Cough. Wheezing. History of prior tobacco [...] Tabitha Garcia MD on 07/13/2025 1:31 PM [facility] Tabitha Garcia MD - 07/13/2025 History: Cough. [...] Tabitha Garcia MD on 07/13/2025 1:31 PM [email or web address] Radiology Study observation (narrative) [facility] XR Chest PA and LateralOrder ed By: Tabitha Garcia on 07-13-2025 [facility] Work Phone: [place] SWALLOW MOTILITY FUNCTION on 06-28-2025 [place] [...] Hernandez MD on 06/28/2025 3:51 PM Normal [facility] PORTABLE INFLUENZA A/INFLUEN ZA Bon 06-27-2025 INFLUENZA A Negative Normal Negative [facility] Comment on above: Order Comment: The I D NOW Influenza A and B2 assay performed on the [employer] instrument is a rapid molecular invitro diagnostic test utilizing an ???isothermal nucleic acid amplification technology for the qualitative detection and discrimination of Influenza A and B viral RNA in direct nasopharyngeal swabs from patients with signs and symptoms of respiratory infection and epidemiological risk factors Performed By: #### C BCA, 1986-, GERMAN TUTOR, LIVR, 04137-1, 14395-2, ENAP, 57056-1, AHP #### [facility] ([id number]) [address], [address] [place] [address] INFLUENZA B Negative Normal Negative [facility] Comment on above: Order Comment: The I D NOW Influenza A and B2 assay performed on the [employer] instrument is a rapid molecular invitro diagnostic test utilizing an ???isothermal nucleic acid amplification technology for the qualitative detection and discrimination of Influenza A and B viral RNA in direct nasopharyngeal swabs from patients with signs and symptoms of respiratory infection and epidemiological risk factors Performed By: #### C BCA, 1986-5, GERMAN TUTOR, LIVR, 62127-9, 47067-8, ENAP, 78005-8, P #### [facility] ([id number]) [address] [place] [address] SARS COV 2 BY NAAT/MOLECULAR (POCT FSED)on 06-27-2025 SARS-CoV-2 (COVID-19) RNA ALIX+probe Ql (Unsp spec) Negative Normal Presumptive Negative [facility] Comment on above: Order Comment: NOTE - ID NOW COVID-19 assay performed on the [employer] instrument is a rapid molecular invitro diagnostic [...] test is intended for use by medical officer or trained operators who are proficient in performing tests using the [employer] instrument.The ID NOW COVID-19 test is only for use under the Food and Drug Administration's Emergency Use Authorization.Fact Sheet for Healthcare Providers:https://www.fda.gov/media/599369/downloadFact Sheet for Patients:https://www.fda.gov/media/890987/download Performed By: #### C BCA, 1987-03, GERMAN TUTOR, LIVR, 49881-3, 11504-8, ENAP, 04590-6, AHP #### [facility] ([id number]) [address], [address] [place] [address] XR CHEST 2 VWSon 06-27-2025 XR CHEST 2 VWS XR CHEST 2 VWS And lateral chest: HISTORY: Cough. 2 views the chest are obtained. Cardiac and mediastinal contours are within normal limits. Lungs are clear. There is no vascular congestion, effusion, or pneumothorax. Osseous structures appear intact. Changes of COPD noted. IMPRESSION: COPD. Finalized by Enrico Mayfield MD on 06/27/2025 2:00 PM Normal [facility] XR SPINE LUMBAR 2 OR 3 VWSon 06-24-2025 XR SPINE LUMBAR 2 OR 3 VWS XR SPINE LUMBAR 2 OR 3 VWS XR SPINE LUMBAR 2 OR 3 VWS Clinical history:Inflammatory polyarthritis (CMS-HCC); Seronegative rheumatoid arthritis ([facility]); Primary osteoarthritis involving multiple joints; Chronic bilateral low back pain without sciatica Comparison: 04/13/2023 Impression: Multilevel degenerative disc disease with disc loss and endplate degenerative changes throughout the lumbar spine most pronounced at L4-L5 and L5-S1. Multilevel facet hypertrophy. No vertebral body height loss. No evidence of acute osseous abnormalities. Finalized by Ashok Kramer MD on 06/24/2025 6:36 AM Normal [facility] BASIC METABOLIC PANELon 07-3 Anion gap [Moles/Vol] 9 mmol/L Normal 5-15 [facility] Comment on above: Performed By: #### C BCA, 1987-03, GERMAN TUTOR, LIVR, 67172-5, 82097-6, ENAP, 12738-7, AHP #### [facility] ([id number]) [address], [address] [place] [address] Calcium [Mass/Vol] 9.8 mg/dL Normal 8.5-10.5 [facility] Comment on above: Performed By: #### C BCA, 1987-03, GERMAN TUTOR, LIVR, 32026-6, 86917-1, ENAP, 21365-1, AHP #### [facility] ([id number]) [address], [address] [place] [address] Chloride [Moles/Vol] 100 mmol/L Normal 98-109 [facility] Comment on above: Performed By: #### C BCA, 1987-03, GERMAN TUTOR, LIVR, 10718-8, 26390-4, ENAP, 79912-9, AHP #### [facility] ([id number]) [address], [address] [place] [address] CO2 [Moles/Vol] 32 mmol/L Normal 22-32 [facility] Comment on above: Performed By: #### C BCA, 1987-03, GERMAN TUTOR, LIVR, 91001-1, 57441-4, ENAP, 51070-6, AHP #### [facility] ([id number]) [address], [address] [place] [address] Creatinine [Mass/Vol] 0.60 mg/dL Normal 0.40-1.00 [facility] Comment on above: Result Comment: METH OD TRACEABLE TO IDMS STANDARD Performed By: #### C BCA, 1987-03, GERMAN TUTOR, LIVR, 93539-7, 09003-2, ENAP, 01697-7, AHP #### [facility] ([id number]) [address], [address] [place] [address] EGFR (CKD-EPI) NON-RACE DEPENDENT >^90 Normal >=60 [facility] Comment on above: Result Comment: Repo rted eGFR is based on the CKD-EPI 2020 equation that does not use a race coefficient. Performed By: #### C BCA, 1987-03, GERMAN TUTOR, LIVR, 96323-4, 81678-7, ENAP, 00574-0, AHP #### [facility] ([id number]) [address], [address] [place] [address] Glucose [Mass/Vol] 88 mg/dL Normal 65-99 [facility] Comment on above: Performed By: #### C BCA, 1987-03, GERMAN TUTOR, LIVR, 62806-6, 67036-7, ENAP, 36822-2, AHP #### [facility] ([id number]) [address], [address] [place] [address] Potassium [Moles/Vol] 4.9 mmol/L Normal 3.5-5.0 [facility] Comment on above: Performed By: #### C BCA, 1987-03, GERMAN TUTOR, LIVR, 53321-5, 92337-1, ENAP, 02488-0, AHP #### [facility] ([id number]) [address], [address] [place] [address] Sodium [Moles/Vol] 141 mmol/L Normal 134-146 [facility] Comment on above: Performed By: #### C BCA, 1987-03, GERMAN TUTOR, LIVR, 92792-6, 94358-6, ENAP, 35101-4, AHP #### [facility] ([id number]) [address], [address] [place] [address] Urea nitrogen [Mass/Vol] 20 mg/dL Normal 5-27 [facility] Comment on above: Performed By: #### C BCA, 1987-03, GERMAN TUTOR, LIVR, 68361-6, 84166-5, ENAP, 68070-2, AHP #### [facility] ([id number]) [address], [address] [place] [address] C-REACTIVE PROTEINon 025 CRP [Mass/Vol] mg/L Normal <=0.7 [facility] Comment on above: Performed By: #### C BCA, 1987-03, GERMAN TUTOR, LIVR, 45379-1, 81312-7, ENAP, 87414-2, AHP #### [facility] ([id number]) [address], [address] [place] [address] CBC WITH AUTO DIFFERENTIALon 06-08-2025 BASOPHILS ABSOLUTE COUNT (10*3/UL) BY AUTOMATED COUNT 0.0 10*3/uL Normal 0.0-0.2 [facility] Comment on above: Performed By: #### C SUSIE, 1987-03, GERMAN TUTOR, LIVR, 48144-1, 49963-6, ENAP, 64890-8, AHP #### [facility] ([id number]) [address], [address] [place] [address] BASOPHILS RELATIVE PERCENT BY AUTOMATED COUNT 0.4 % Normal [facility] Comment on above: Performed By: #### Nicolás RICHARDS, 1987-03, GERMAN TUTOR, LIVR, 35007-2, 34615-9, ENAP, 72317-8, AHP #### [facility] ([id number]) [address], [address] [place] [address] CELLAVISION DIFFERENTIAL TYPE AUTOMATED DIFFERENTIAL Normal [facility] Comment on above: Performed By: #### C SUSIE, 1987-03, GERMAN TUTOR, LIVR, 90624-4, 67335-3, ENAP, 92501-5, AHP #### [facility] ([id number]) [address], [address] [place] [address] Eosinophils (Bld) [#/Vol] 0.5 10*3/uL High 0.0-0.4 [facility] Comment on above: Performed By: #### C SUSIE, 1987-03, GERMAN TUTOR, LIVR, 34328-8, 99144-3, ENAP, 89364-3, AHP #### [facility] ([id number]) [address], [address] [place] [address] EOSINOPHILS RELATIVE PERCENT BY AUTOMATED COUNT 7.7 % Normal [facility] Comment on above: Performed By: #### Nicolás RICHARDS, 1987-03, GERMAN TUTOR, LIVR, 08517-4, 18352-8, ENAP, 58700-7, AHP #### [facility] ([id number]) [address] [place] [address] Erythrocyte distribution width (RBC) [Ratio] 15.8 % High 11.5-15 [facility] Comment on above: Performed By: #### C SUSIE, 1987-03, GERMAN TUTOR, LIVR, 12213-0, 43142-5, ENAP, 98927-4, AHP #### [facility] ([id number]) [address] [place] [address] Hematocrit (Bld) [Volume fraction] 39.0 % Normal 35-47 [facility] Comment on above: Performed By: #### C SUSIE, 1987-03, GERMAN TUTOR, LIVR, 41304-8, 85780-0, ENAP, 59171-9, AHP #### [facility] ([id number]) [address] [address] Hemoglobin (Bld) [Mass/Vol] 12.7 g/dL Normal 11.7-15.5 [facility] Comment on above: Performed By: #### C SUSIE, 1987-03, GERMAN TUTOR, LIVR, 47291-5, 55299-7, ENAP, 84461-0, AHP #### [facility] ([id number]) [address] [address] LYMPHOCYTES ABSOLUTE COUNT (10*3/UL) BY AUTOMATED COUNT 1.0 10*3/uL Normal 1.0-3.5 [facility] Comment on above: Performed By: #### C SUSIE, 1987-03, GERMAN TUTOR, LIVR, 27655-8, 91012-0, ENAP, 64429-4, AHP #### [facility] ([id number]) [address] [place] [address] LYMPHOCYTES RELATIVE PERCENT BY AUTOMATED COUNT 16.8 % Normal [facility] Comment on above: Performed By: #### C BCA, 1987-03, GERMAN TUTOR, LIVR, 45698-8, 21402-8, ENAP, 77379-7, AHP #### [facility] ([id number]) [address], [address] [place] [address] MCH (RBC) [Entitic mass] 30.1 pg Normal 27-34 [facility] Comment on above: Performed By: #### C SUSIE, 1987-03, GERMAN TUTOR, LIVR, 72256-6, 28751-0, ENAP, 67549-5, AHP #### [facility] ([id number]) [address], [address] [place] [address] MCHC (RBC) [Mass/Vol] 32.4 g/dL Normal 32-36 [facility] Comment on above: Performed By: #### C SUSIE, 1987-03, GERMAN TUTOR, LIVR, 26343-6, 70459-4, ENAP, 25110-6, AHP #### [facility] ([id number]) [address], [address] [place] [address] MCV (RBC) [Entitic vol] 93 fL Normal 80-100 [facility] Comment on above: Performed By: #### C SUSIE, 1987-03, GERMAN TUTOR, LIVR, 94884-4, 29120-1, ENAP, 47606-1, AHP #### [facility] ([id number]) [address], [address] [place] [address] MONOCYTES ABSOLUTE COUNT (10*3/UL) BY AUTOMATED COUNT 0.4 10*3/uL Normal 0.0-0.9 [facility] Comment on above: Performed By: #### C SUSIE, 1987-03, GERMAN TUTOR, LIVR, 84126-4, 09175-6, ENAP, 78902-2, AHP #### [facility] ([id number]) [address], [address] [place] [address] MONOCYTES RELATIVE PERCENT BY AUTOMATED COUNT 6.6 % Normal [facility] Comment on above: Performed By: #### C SUSIE, 1987-03, GERMAN TUTOR, LIVR, 99713-1, 91747-0, ENAP, 06873-4, AHP #### [facility] ([id number]) [address], [facility] [address] [address] [address] [place] [address] NEUTROPHILS ABSOLUTE COUNT BY AUTOMATED COUNT 4.1 10*3/uL Normal 1.5-6.6 [facility] Comment on above: Performed By: #### C SUSIE, 1987-03, GERMAN TUTOR, LIVR, 95650-8, 30488-4, ENAP, 41702-1, AHP #### [facility] ([id number]) [address] [address] NEUTROPHILS RELATIVE PERCENT BY AUTOMATED COUNT 68.5 % Normal [facility] Comment on above: Performed By: #### Nicolás RICHARDS, 1987-03, GERMAN TUTOR, LIVR, 66832-8, 04654-8, ENAP, 59378-9, AHP #### [facility] ([id number]) [address] [address] Platelet mean volume (Bld) [Entitic vol] 9.1 fL Normal 7-12 [facility] Comment on above: Performed By: #### C SUSIE, 1987-03, GERMAN TUTOR, LIVR, 40152-5, 35328-6, ENAP, 94545-6, AHP #### [facility] ([id number]) [address], [facility] [address] [place] [address] Platelets (Bld) [#/Vol] 270 10*3/uL Normal 150-450 [facility] Comment on above: Performed By: #### Nicolás RICHARDS, 1987-03, GERMAN TUTOR, LIVR, 16532-6, 06256-2, ENAP, 21030-8, AHP #### [facility] ([id number]) [address], [address] [place] [address] RBC COUNT 4.20 X10E12/L Normal 3.8-5.2 [facility] Comment on above: Performed By: #### Nicolás RICHARDS, 1987-03, GERMAN TUTOR, LIVR, 76481-4, 89098-1, ENAP, 65149-0, AHP #### [facility] ([id number]) [address], [address] [address] WBC (Bld) [#/Vol] 5.9 10*3/uL Normal 4-11 [facility] Comment on above: Performed By: #### Nicolás RICHARDS, 1987-03, GERMAN TUTOR, LIVR, 88736-3, 40880-8, ENAP, 20195-5, AHP #### [facility] ([id number]) [address] [address] ERYTHROCYTE SEDIMENTATION RA TE (ESR)on 06-08-2025 ESR, ERYTHROCYTE SEDIMENTATION RATE 33 mm/h High 0-30 [facility] Comment on above: Performed By: #### Nicolás RICHARDS, 1987-03, GERMAN TUTOR, LIVR, 79992-2, 21734-7, ENAP, 83065-3, AHP #### [facility] ([id number]) [address] [address] HAPTOGLOBINon 06-08-2025 HAPTOGLOBIN 215 mg/dL Normal 32-228 [facility] Comment on above: Performed By: #### Nicolás RICHARDS, 1987-03, GERMAN TUTOR, LIVR, 95112-0, 28792-7, ENAP, 89490-8, AHP #### [facility] ([id number]) [address] [address] LDL CHOLESTEROL, DIRECTon Cholesterol in LDL [Mass/Vol] 60 mg/dL Normal <=130 [facility] Comment on above: Result Comment: LDL <100 mg/dL - Desirable LDL 130-159 mg/dL - Borderline High Risk LDL >160 mg/dL - High Risk Performed By: #### C BCA, 1987-03, GERMAN TUTOR, LIVR, 61798-4, 08660-9, ENAP, 04437-9, AHP #### [facility] ([id number]) [address], [address] [place] [address] LIVER PANELon 06-08-2025 Albumin [Mass/Vol] 4.4 g/dL Normal 3.2-5.3 [facility] Comment on above: Performed By: #### C BCA, 1987-03, GERMAN TUTOR, LIVR, 70434-3, 38807-3, ENAP, 61543-6, AHP #### [facility] ([id number]) [address] [place] [address] ALP [Catalytic activity/Vol] 87 U/L Normal 39-130 [facility] Comment on above: Performed By: #### C SUSIE, 1987-03, GERMAN TUTOR, LIVR, 54777-0, 66074-4, ENAP, 83380-8, AHP #### [facility] ([id number]) [address] [place] [address] ALT [Catalytic activity/Vol] 7 U/L Normal <=31 [facility] Comment on above: Performed By: #### C BCA, 1987-03, GERMAN TUTOR, LIVR, 58077-8, 93157-9, ENAP, 63698-1, AHP #### [facility] ([id number]) [address] [place] [address] AST [Catalytic activity/Vol] 25 U/L Normal <=41 [facility] Comment on above: Performed By: #### C BCA, 1987-03, GERMAN TUTOR, LIVR, 40086-7, 93192-5, ENAP, 46180-7, AHP #### [facility] ([id number]) [address] [place] [address] Bilirubin [Mass/Vol] 1.5 mg/dL High 0.3-1.2 [facility] Comment on above: Performed By: #### C BCA, 1987-03, GERMAN TUTOR, LIVR, 45752-6, 37741-2, ENAP, 18237-9, AHP #### [facility] ([id number]) [address] [place] [address] Bilirubin.indirect [Mass/Vol] 0.3 mg/dL Normal <=0.4 [facility] Comment on above: Performed By: #### C BCA, 1987-03, GERMAN TUTOR, LIVR, 98479-5, 87741-8, ENAP, 71278-2, AHP #### [facility] ([id number]) [address] [place] [address] Protein [Mass/Vol] 7.2 g/dL Normal 6.0-8.0 [facility] Comment on above: Performed By: #### C BCA, 1987-03, GERMAN TUTOR, LIVR, 10777-5, 43274-0, ENAP, 48439-6, AHP #### [facility] ([id number]) [address] [place] [address] CT [facility] WO CONT/INCL SCORINGon 05-03-2025 CT [facility] WO CONT/INCL SCORING CT [facility] WO CONT/INCL SCORING Noncontrast gated CT heart for coronary calcium scoring Clinical history:Health care maintenance. Comparison: None. TECHNIQUE: Gated noncontrast CT of the heart was obtained utilizing a [address] scanner. A separate workstation was utilized [...] Frederic Mays DO on 05/03/2025 1:25 PM [facility] DEXA ICARIA SCAN CENTRAL SKE Gage 05-03-2025 DEXA ICARIA SCAN CENTRAL SKELETAL [...] Valencia MD on 05/03/2025 8:47 AM Normal [facility] POCT EKGOrdered By: Annalise dugan on 05-03-2025 [facility] URINALYSISon 05-03-2025 Bilirubin Ql (U) Negative Normal Negative [facility] Comment on above: Performed By: #### U A ####[facility] ([facility])[address], [place] [address] VIR BLOOD/HGB Negative Normal Negative [facility] Comment on above: Performed By: #### U A ####[facility] ([facility])[address], [place] [address] VIR Color (U) Colorless Normal Yellow, Colorless [facility] Comment on above: Performed By: #### U A ####[facility] ([facility])[address], [place] [address] VIR Glucose Ql (U) Negative Normal Negative [facility] Comment on above: Performed By: #### U A ####[facility] ([facility])[address], [place] [address] VIR Ketones Ql (U) Negative Normal Negative [facility] Comment on above: Performed By: #### U A ####[facility] ([facility])[address], [place] [address] VIR Leukocyte esterase Test strip Ql (U) Negative Normal Negative [facility] Comment on above: Performed By: #### U A ####[facility] ([facility])[address], [place] [address] VIR Nitrite Ql (U) Negative Normal Negative [facility] Comment on above: Performed By: #### U A ####[facility] ([facility])[address], [place] [address] VIR PH,URINE 6.5 Normal 5.0-8.5 [facility] Comment on above: Performed By: #### U A ####[facility] ([facility])[address] [facility] [address], [place] [address] VIR Protein Ql (U) Negative Normal Negative [facility] Comment on above: Performed By: #### U A ####[facility] ([facility])[address] [facility], [place] [address] VIR Specific gravity (U) [Rel density] 1.011 Normal 1.003-1.035 [facility] Comment on above: Performed By: #### U A ####[facility] ([facility])[address] [facility] [address], [place] [address] VIR TURBIDITY Clear Normal Clear [facility] Comment on above: Performed By: #### U A ####[facility] ([facility])[address] [facility] [address], [place] [address] VIR UROBILINOGEN <1.1 eu/dL Normal <1.1 eu/dL [facility] Comment on above: Performed By: #### U A ####[facility] ([facility])[address] [facility] [address], [place] [address] VIR URINE CULTUREon 05-03-2025 Bacteria identified Cx Nom (U) CULTURE RESULTS NO GROWTH AT <1000 CFU/mL Normal [facility] Comment on above: Order Comment: Dysur ia, frequency Performed By: #### U C ####[facility] ([facility])[address] [facility] [address], [place] [address] VIR APOLIPOPROTEIN A1, Son 04-25 APOLIPOPROTEIN A1 189 mg/dL Normal >=140 [facility] Comment on above: Result Comment: Test Performed by: [facility] [employer] [address] [address] 7Th Grade Social Studies Teacher: Sam Dukes Ph.D.; CLIA# [id number] Performed By: #### A PA1S ####[facility] [employer] ([facility])[address] [place] [address] VIR APOLIPOPROTEIN B, Son 2024 Apolipoprotein B [Mass/Vol] 66 mg/dL Normal [facility] Comment on above: Result Comment: REFERENCE VALUE Desirable: <90 Above Desirable: 90-99 Borderline high: 100-119 High: 120-139 Very high: > or = 140 Test Performed by: [facility] [address] [id number] 7Th Grade Social Studies Teacher: Sam Dukes Ph.D.; CLIA# [id number] Performed By: #### A POLBS ####[facility] [employer] ([facility])[address] [place] [address] VIR [facility] GENERIC TEST RESULT SEE NOTE Normal [facility] Comment on above: Result Comment: Test name Result Flag Units RefIntvl Testosterone by Nurse Examiner 13 ng/dL 5-32 REFERENCE INTERVAL: Testosterone by Nurse Examiner Females Premenopausal 9-55 ng/dL Postmenopausal 5-32 ng/dL INTERPRETIVE INFORMATION: Testosterone by Nurse Examiner Free or bioavailable testosterone measurements may provide supportive information. For individuals on testosterone-suppressing hormone therapies (e.g., antiandrogens or estrogens), refer to cisgender female reference intervals. For a complete set of all established reference intervals, refer to [facility] [place]/Tests/Pub/[id number]. This test was developed and its performance characteristics determined by [employer] [facility]. It has not been cleared or approved by the US Food and Drug Administration. This test was performed in a CLIA certified laboratory and is intended for clinical purposes. Sex Hormone Binding Globulin 65 nmol/L 17-125 REFERENCE INTERVAL: Sex Hormone Binding Globulin Access complete set of age- and/or gender-specific reference intervals for this test in the [facility] Test Directory ([facility]). Testosterone, Free by Nurse Examiner 1.4 pg/mL 0.6-3.8 INTERPRETIVE INFORMATION: Testosterone, Free by Nurse Examiner Free testosterone concentration is calculated using total testosterone (measured by mass spectrometry) and the binding constant of testosterone and sex hormone-binding globulin (SHBG). For individuals on testosterone-suppressing hormone therapies (e.g., antiandrogens or estrogens), refer to cisgender female reference intervals. For a complete set of all established reference intervals, refer to [facility]/Tests/Pub/[id number]. This test was developed and its performance characteristics determined by [employer]. It has not been cleared or approved by the US Food and Drug Administration. This test was performed in a CLIA certified laboratory and is intended for clinical purposes. Performed By: [employer] [facility] [employer] [address] [place] [address] Audio/Visual Manager: Kwame Marion MD, PhD CLIA Number: [id number] Performed By: #### A GO ####[facility] ([facility])[address] [place] [address] VIR BILIRUBIN, DIRECTon 04-25-20 25 Bilirubin.indirect [Mass/Vol] 0.3 mg/dL Normal <=0.4 [facility] Comment on above: Performed By: #### D TEREZA ####[facility] ([facility])[address] [address] VIR CBC WITH AUTO DIFFERENTIALon 04-25-2025 BASOPHILS ABSOLUTE COUNT (10*3/UL) BY AUTOMATED COUNT 0.0 10*3/uL Normal 0.0-0.2 [facility] Comment on above: Performed By: #### C BCA #### [facility] ([facility]) [address] [place] [address] VIR BASOPHILS RELATIVE PERCENT BY AUTOMATED COUNT 0.5 % Normal [facility] Comment on above: Performed By: #### C BCA #### [facility] ([facility]) [address] [place] [address] VIR CELLAVISION DIFFERENTIAL TYPE AUTOMATED DIFFERENTIAL Normal [facility] Comment on above: Performed By: #### C BCA #### [facility] ([facility]) [address] [place] [address] VIR Eosinophils (Bld) [#/Vol] 0.3 10*3/uL Normal 0.0-0.4 [facility] Comment on above: Performed By: #### C BCA #### [facility] ([facility]) [address] [place] [address] VIR EOSINOPHILS RELATIVE PERCENT BY AUTOMATED COUNT 4.9 % Normal [facility] Comment on above: Performed By: #### C BCA #### [facility] ([facility]) [address] [place] [address] VIR Erythrocyte distribution width (RBC) [Ratio] 14.8 % Normal 11.5-15 [facility] Comment on above: Performed By: #### C BCA #### [facility] ([facility]) [address] [place] [address] VIR Hematocrit (Bld) [Volume fraction] 34.0 % Low 35-47 [facility] Comment on above: Performed By: #### C BCA #### [facility] ([facility]) [address] [place] [address] VIR Hemoglobin (Bld) [Mass/Vol] 11.4 g/dL Low 11.7-15.5 [facility] Comment on above: Performed By: #### C BCA #### [facility] ([facility]) [address] [place] [address] VIR LYMPHOCYTES ABSOLUTE COUNT (10*3/UL) BY AUTOMATED COUNT 1.3 10*3/uL Normal 1.0-3.5 [facility] Comment on above: Performed By: #### C BCA #### [facility] ([facility]) [address] [place] [address] VIR LYMPHOCYTES RELATIVE PERCENT BY AUTOMATED COUNT 20.5 % Normal [facility] Comment on above: Performed By: #### C BCA #### [facility] ([facility]) [address] [place] [address] VIR MCH (RBC) [Entitic mass] 30.8 pg Normal 27-34 [facility] Comment on above: Performed By: #### C BCA #### [facility] ([facility]) [address] [place] [address] VIR MCHC (RBC) [Mass/Vol] 33.5 g/dL Normal 32-36 [facility] Comment on above: Performed By: #### C BCA #### [facility] ([facility]) [address] [place] [address] VIR MCV (RBC) [Entitic vol] 92 fL Normal 80-100 [facility] Comment on above: Performed By: #### C BCA #### [facility] ([facility]) [address] [place] [address] VIR MONOCYTES ABSOLUTE COUNT (10*3/UL) BY AUTOMATED COUNT 0.5 10*3/uL Normal 0.0-0.9 [facility] Comment on above: Performed By: #### C BCA #### [facility] ([facility]) [address] [place] [address] VIR MONOCYTES RELATIVE PERCENT BY AUTOMATED COUNT 7.4 % Normal [facility] Comment on above: Performed By: #### C BCA #### [facility] ([facility]) [address] [place] [address] VIR NEUTROPHILS ABSOLUTE COUNT BY AUTOMATED COUNT 4.2 10*3/uL Normal 1.5-6.6 [facility] Comment on above: Performed By: #### C BCA #### [facility] ([facility]) [address] [place] [address] VIR NEUTROPHILS RELATIVE PERCENT BY AUTOMATED COUNT 66.7 % Normal [facility] Comment on above: Performed By: #### C BCA #### [facility] ([facility]) [address] [place] [address] VIR Platelet mean volume (Bld) [Entitic vol] 8.8 fL Normal 7-12 [facility] Comment on above: Performed By: #### C BCA #### [facility] ([facility]) [address] [place] [address] VIR Platelets (Bld) [#/Vol] 254 10*3/uL Normal 150-450 [facility] Comment on above: Performed By: #### C BCA #### [facility] ([facility]) [address] [place] [address] VIR RBC COUNT 3.71 X10E12/L Low 3.8-5.2 [facility] Comment on above: Performed By: #### C BCA #### [facility] ([facility]) [address] [place] [address] VIR WBC (Bld) [#/Vol] 6.3 10*3/uL Normal 4-11 [facility] Comment on above: Performed By: #### C BCA #### [facility] ([facility]) [address] [place] [address] VIR COMPREHENSIVE METABOLIC PANE Martin 04-25-2025 Albumin [Mass/Vol] 4.7 g/dL Normal 3.2-5.3 [facility] Comment on above: Order Comment: Patie nt Instructions: Fast 12 hours Performed By: #### C MP ####[facility] ([facility])[address], [place] [address] VIR ALP [Catalytic activity/Vol] 76 U/L Normal 39-130 [facility] Comment on above: Order Comment: Patie nt Instructions: Fast 12 hours Performed By: #### C MP ####[facility] ([facility])[address], [place] [address] VIR ALT [Catalytic activity/Vol] 6 U/L Normal <=31 [facility] Comment on above: Order Comment: Patie nt Instructions: Fast 12 hours Performed By: #### C MP ####[facility] ([facility])[address], [place] [address] VIR Anion gap [Moles/Vol] 12 mmol/L Normal 5-15 [facility] Comment on above: Order Comment: Patie nt Instructions: Fast 12 hours Performed By: #### C MP ####[facility] ([facility])[address], [place] [address] VIR AST [Catalytic activity/Vol] 27 U/L Normal <=41 [facility] Comment on above: Order Comment: Patie nt Instructions: Fast 12 hours Performed By: #### C MP ####[facility] ([facility])[address], [place] [address] VIR Bilirubin [Mass/Vol] 1.8 mg/dL High 0.3-1.2 [facility] Comment on above: Order Comment: Patie nt Instructions: Fast 12 hours Performed By: #### C MP ####[facility] ([facility])[address], [place] [address] VIR Calcium [Mass/Vol] 10.1 mg/dL Normal 8.5-10.5 [facility] Comment on above: Order Comment: Patie nt Instructions: Fast 12 hours Performed By: #### C MP ####[facility] ([facility])[address], [place] [address] VIR Chloride [Moles/Vol] 97 mmol/L Low 98-109 [facility] Comment on above: Order Comment: Patie nt Instructions: Fast 12 hours Performed By: #### C MP ####[facility] ([facility])[address], [place] [address] VIR CO2 [Moles/Vol] 31 mmol/L Normal 22-32 [facility] Comment on above: Order Comment: Patie nt Instructions: Fast 12 hours Performed By: #### C MP ####[facility] ([facility])[address], [place] [address] VIR Creatinine [Mass/Vol] 1.24 mg/dL High 0.40-1.00 [facility] Comment on above: Order Comment: Patie nt Instructions: Fast 12 hours Result Comment: METH OD TRACEABLE TO IDMS STANDARD Performed By: #### C MP ####[facility] ([facility])[address], [place] [address] VIR GFR/1.73 sq M.predicted among non-blacks MDRD (S/P/Bld) [Vol rate/Area] 46 mL/min/{1.73_m2} Low >=60 [facility] Comment on above: Order Comment: Patie nt Instructions: Fast 12 hours Result Comment: Repo rted eGFR is based on the CKD-EPI 2020 equation that does not use a race coefficient. Performed By: #### C MP ####[facility] ([facility])[address], [place] [address] VIR Glucose [Mass/Vol] 98 mg/dL Normal 65-99 [facility] Comment on above: Order Comment: Patie nt Instructions: Fast 12 hours Performed By: #### C MP ####[facility] ([facility])[address], [place] [address] VIR Potassium [Moles/Vol] 4.2 mmol/L Normal 3.5-5.0 [facility] Comment on above: Order Comment: Patie nt Instructions: Fast 12 hours Performed By: #### C MP ####[facility] ([facility])[address], [place] [address] VIR Protein [Mass/Vol] 7.8 g/dL Normal 6.0-8.0 [facility] Comment on above: Order Comment: Patie nt Instructions: Fast 12 hours Performed By: #### C MP ####[facility] ([facility])[address], [place] [address] VIR Sodium [Moles/Vol] 140 mmol/L Normal 134-146 [facility] Comment on above: Order Comment: Patie nt Instructions: Fast 12 hours Performed By: #### C MP ####[facility] ([facility])[address], [place] [address] VIR Urea nitrogen [Mass/Vol] 36 mg/dL High 5-27 [facility] Comment on above: Order Comment: Patie nt Instructions: Fast 12 hours Performed By: #### C MP ####[facility] ([facility])[address] [facility] [address], [place] [address] VIR CORTISOLon 04-25-2025 CORTISOL, TOTAL 21.2 ug/dL Normal [facility] Comment on above: Order Comment: Due t o the diurnal variation of cortisol levels in normal subjects, all cortisol measurments should be referenced to the time of day of sample collection. AM Cortisol Age>=6 6.7-22.4 ug/dL PM Cortisol Age>=6 <10 ug/dL Performed By: #### C ORT #### [facility] ([facility]) [address] [place] [address] VIR DHEA-SULFATEon 04-25-2025 DHEA S 71 ug/dL Normal 7-177 [facility] Comment on above: Performed By: #### D HEAS ####[facility] ([facility])[address] [facility] [address], [place] [address] VIR DIHYDROTESTOSTERONE, Son DIHYDROTESTOSTERONE <50 Normal <=128 [facility] Comment on above: Result Comment: ADDITIONAL INFORMATION This test was developed and its performance characteristics determined by [facility] in a manner consistent with CLIA requirements. This test has not been cleared or approved by the U.S. Food and Drug Administration. Test Performed by: [facility] [address] [place] [address] 7Th Grade Social Studies Teacher: Sam Dukes Ph.D.; CLIA# [id number] Performed By: #### Manjula HSTR ####[facility] (SDL)[address] [place] [address] VIR ERYTHROCYTE SEDIMENTATION RA TE (ESR)on 04-25-2025 ESR, ERYTHROCYTE SEDIMENTATION RATE 67 mm/h High 0-30 [facility] Comment on above: Performed By: #### Mell SR ####[facility] ([facility])[address] [facility] [address] [address] VIR ESTRADIOLon 04-25-2025 ESTRADIOL <^15.0 Normal [facility] Comment on above: Order [...] this assay. Performed By: #### E STD ####[facility] ([facility])[address] [place] [address] VIR FERRITINon 04-25-2025 Ferritin [Mass/Vol] 90 ng/mL Normal 11-307 [facility] Comment on above: Performed By: #### F ERR ####[facility] ([facility])[address] [place] [address] VIR FOLLICLE STIMULATING HORMONE on 04-25-2025 FOLLICLE STIM HORMONE 24.9 mIU/mL Normal [facility] Comment on above: Order Comment: KARISHMA L FEMALE:Luteal 1.8-5.1 mIU/mLFollicular 3.8-8.8 mIU/mLMid Cycle 4.5-22.5 mIU/mLPost [place] 16.7-113.6 mIU/mL Performed By: #### F SH ####[facility] ([facility])[address] [address] VIR GGTon 04-25-2025 Gamma glutamyl transferase [Catalytic activity/Vol] 23 U/L Normal 9-33 [facility] Comment on above: Performed By: #### G GT ####[facility] ([facility])[address] [id number] VIR HEMOGLOBIN A1Con 04-25-2025 Glucose [Mass/Vol] 126 mg/dL Normal [facility] Comment on above: Performed By: #### H A1C ####[facility] LABORATORY ([facility])[address] [address] VIR HbA1c (Bld) [Mass fraction] 6.0 % High 4.4-5.6 [facility] Comment on above: Result Comment: ADA Guidelines Result HgbA1c Normal : less than 5.7 % Prediabetes : 5.7 % to 6.4 % Diabetes : > 6.4 % Use with caution in patients with abnormal hemoglobin variants as the half-life of red blood cells and in vivo glycation rates are affected. Performed By: #### H A1C ####[facility] ([facility])[address] [address] VIR HEPATITIS C(HCV) ANTIBODY W/ REFLEX TO PCRon 04-25-2025 ANTI HCV W/PCR REFLX Non-Reactive Normal Non-Reactive [facility] Comment on above: Result Comment: If r ecent infection suspected, recommend repeat testing (>2 months). Dehxib-ss-mkyzlx ratio is <1.0. Performed By: #### H CV ####[facility] ([facility])[address] [address] VIR HIGH SENSITIVITY CRPon 04-25 HS CRP 0.020 mg/dL Normal 0.000-0.744 [facility] Comment on above: Order [...] other conditions. Performed By: #### H SCRP ####[facility] ([facility])[address] [address] VIR HOMOCYSTEINE, PLASMAon 04-25 HOMOCYSTEINE 36.45 umol/L High 3.36-20.44 [facility] Comment on above: Performed By: #### H MCY #### [facility] ([facility]) [address] [facility] [address] [place] [address] VIR INSULINon 04-25-2025 INSULIN 2.24 uIU/mL Normal 1.00-23.00 [facility] Comment on above: Order Comment: Josh tran Instructions: Fast 12 hoursRef. range is for FASTING NON-DIABETIC POPULATION. Performed By: #### I NSL ####[facility] ([facility])[address] [address] VIR INSULIN-LIKE GFB PROTEIN 3on 04-25-2025 IGFBP-3 4.9 mcg/mL Normal 2.8-5.7 [facility] Comment on above: Result Comment: Test Performed by: [facility] [place] [employer] [facility] [address] [place] [address] 7Th Grade Social Studies Teacher: Sam Dukes Ph.D.; CLIA# [id number] Performed By: #### I GFB3 ####[facility] [employer] ([facility])[address] [address] VIR IRON AND TIBCon 04-25-2025 Iron [Mass/Vol] 141 ug/dL Normal 50-170 [facility] Comment on above: Performed By: #### F EPR ####[facility] ([facility])[address], [place] [address] VIR IRON BINDING 378 ug/dL Normal 250-425 [facility] Comment on above: Performed By: #### F EPR ####[facility] ([facility])[address], [place] [address] VIR IRON SATURATION 37 % SATURATION Normal 15-50 [facility] Comment on above: Performed By: #### F EPR ####[facility] ([facility])[address], [place] [address] VIR Transferrin [Mass/Vol] 270 mg/dL Normal 168-336 [facility] Comment on above: Performed By: #### F EPR ####[facility] ([facility])[address], [place] [address] VIR LDHon 04-25-2025 LDH 371 U/L High 100-235 [facility] Comment on above: Performed By: #### L DH ####[facility] ([facility])[address], [place] [address] VIR LIPID PROFILEon 04-25-2025 Cholesterol [Mass/Vol] 171 mg/dL Normal 150-200 [facility] Comment on above: Order Comment: Patie nt Instructions: Fast 12 hours Performed By: #### L IPR ####[facility] ([facility])[address], [place] [address] VIR Cholesterol in HDL [Mass/Vol] 82 mg/dL Normal >39 [facility] Comment on above: Order Comment: Patie nt Instructions: Fast 12 hours Result Comment: HDL <40 mg/dL - High Risk HDL > or = 40mg/dL- Desirable HDL >60 mg/dL - Negative Risk Performed By: #### L IPR ####[facility] ([facility])[address], [place] [address] VIR Cholesterol in LDL [Mass/Vol] 80 mg/dL Normal <130 [facility] Comment on above: Order Comment: Patie nt Instructions: Fast 12 hours Result Comment: LDL <100 mg/dL - Desirable LDL >160 mg/dL - High Risk Performed By: #### L IPR ####[facility] ([facility])[address] [facility] [address], [place] [address] VIR CHOLESTEROL:HDL 2.1 Normal 1.0-5.0 [facility] Comment on above: Order Comment: Patie nt Instructions: Fast 12 hours Performed By: #### L IPR ####[facility] ([facility])[address] [facility] [address], [place] [address] VIR Triglyceride [Mass/Vol] 46 mg/dL Normal 27-150 [facility] Comment on above: Order Comment: Patie nt Instructions: Fast 12 hours Performed By: #### L IPR ####[facility] ([facility])[address] [facility] [address], [place] [address] VIR VERY LOW LIPOPROTEIN 9 mg/dL Normal 0-30 [facility] Comment on above: Order Comment: Patie nt Instructions: Fast 12 hours Performed By: #### L IPR ####[facility] ([facility])[address] [facility] [address] [address] VIR LIPOPROTEIN(A), Son 04-25-20 25 Lipoprotein a [Mass/Vol] mg/dL Normal <75 [facility] Comment on above: Result [...] considered a risk enhancing factor by the [place] [employer]. This test has been modified from the safety risk lead's instructions. Its performance characteristics were determined by [facility] in a manner consistent with CLIA requirements. This test has not been cleared or approved by the U.S. Food and Drug Administration. Test Performed by: [address] [address] 7Th Grade Social Studies Teacher: Sam Dukes Ph.D.; IA# [id number] Performed By: #### L IPA1 ####[facility]IES ([facility])[address] [place] [address] VIR LUTEINIZING HORMONEon 2024 LUTEINIZING HORMONE 0.9 mIU/mL Normal [facility] Comment on above: Order Comment: KARISHMA L FEMALEFollicular 2.1-10.9 mIU/mLMid Cycle 19.2-103 mIU/mLLuteal 1.2-12.9 mIU/mLPost [place] 10.9-58.6 mIU/mL Performed By: #### L H ####[facility] ([facility])[address] [facility] [address], [place] [address] VIR MAGNESIUMon 04-25-2025 Magnesium [Mass/Vol] 2.2 mg/dL Normal 1.8-2.6 [facility] Comment on above: Performed By: #### M G ####[facility] ([facility])[address], [place] [address] VIR MICROALBUMIN / CREATININE UR INE RATIOon 04-25-2025 Albumin DL <= 20 mg/L (U) [Mass/Vol] 1.0 mg/dL Normal 0.0-1.9 [facility] Comment on above: Performed By: #### M ALBU ####[facility] ([facility])[address], [place] [address] VIR MALB/CREAT RATIO 53.2 mg/g High 0.0-30.0 [facility] Comment on above: Performed By: #### M ALBU ####[facility] ([facility])[address], [place] [address] VIR URINE CREATININE,RDM 18.80 mg/dL Normal [facility] Comment on above: Performed By: #### M ALBU ####[facility] ([facility])[address] [address] VIR MR ICARIA BODYon 04-25-2025 MR ICARIA [...] Ashok Kramer MD on 04/25/2025 1:34 PM [facility] MR ICARIA CARDIACon 04-25-20 MR [...] Cardiovasc Magn Reson 22, 87 (2020). [email or web address] Finalized by Ashok Kramer MD on 04/25/2025 1:30 PM Normal [facility] MR ICARIA NEUROon 04-25-2025 MR ICARIA NEURO MR ICARIA NEURO MR ICARIA NEURO CLINICAL INFORMATION: Health care maintenance TECHNIQUE: Multiplanar multisequence MR imaging of the brain and [place] of [place] was performed on a 3 [place] superconducting Siemens unit, without intravenous contrast. Whole-body multisequence screening MRI performed without contrast, selective interpretation of the neck portions; remaining chest, abdomen, and pelvis is reported separately. Volume rendered 3-D post processed reformatted images were generated at an independent workstation, with [employer] automated segmentation analysis, to further define anatomy [...] thecal sac stenosis at C5-C6. IMPRESSION: * Sril-md-qqtiqkds burden white matter FLAIR hyperintensities, most often seen in the setting of chronic microvascular ischemia. * Unremarkable tyonek of [place] MRA. * Several brain parenchymal [...] Kam Moon MD on 04/25/2025 12:05 PM [facility] PHOSPHORUSon 04-25-2025 Phosphate [Mass/Vol] 3.7 mg/dL Normal 2.4-4.9 [facility] Comment on above: Performed By: #### P HOS ####[facility] ([facility])[address] [facility] [address] [address] VIR PROGESTERONEon 04-25-2025 PROGESTERONE 0.9 ng/mL Normal [facility] Comment on above: Result Comment: PREG NANT FEMALES: 1st Tri: 4.7-50.7 ng/ml 2nd Tri: 19.4-45.3 ng/ml MENSTRUATING FEMALES: Follicular: 0.3-1.5 ng/ml Mid Luteal: 5.2-18.6 ng/ml Post Re[place]: <0.1-0.8 ng/ml Performed By: #### P RGST ####[facility] ([facility])[address] [place] [address] VIR PROLACTINon 04-25-2025 PROLACTIN 1.0 ng/mL Low 2.7-19.6 [facility] Comment on above: Performed By: #### P ROL ####[facility] ([facility])[address] [facility] [address] [address] VIR SEX HORMONE BINDING GLOBULIN on 04-25-2025 SEX HORMONE BINDING GLOBULIN 60.4 nmol/L Normal 16.8-125.2 [facility] Comment on above: Result Comment: PT T YPE AGE RANGE MALES 20-50Y 13.3-89.5 mmol/L FEMALES 20-46Y 18.2-135.5 mmol/L FEMALES POSTMENO 47-91Y 16.8-125.2 mmol/L Performed By: #### S HBG ####[facility] ([facility])[address] [facility] [address], [place] [address] VIR T3, FREEon 04-25-2025 Free T3 [Mass/Vol] 2.59 pg/mL Normal 2.50-3.90 [facility] Comment on above: Performed By: #### F T3 ####[facility] ([facility])[address] [facility] [address] [address] VIR T4, FREEon 04-25-2025 Free T4 [Mass/Vol] 1.43 ng/dL Normal 0.61-1.60 [facility] Comment on above: Performed By: #### F T4 #### [facility] ([facility]) [address] [place] [address] VIR TESTOSTERONE, TOTAL AND FREE , Son 04-25-2025 TESTOSTERONE, TOTAL AND FREE, S TESTF TESTOSTERONE, TOTAL AND FREE, S Cancelled Normal [facility] TSHon 04-25-2025 TSH 1.63 uIU/mL Normal 0.49-4.67 [facility] Comment on above: Performed By: #### T SH #### [facility] ([facility]) [address] [place] [address] VIR URIC ACIDon 04-25-2025 Urate [Mass/Vol] 5.4 mg/dL Normal 2.6-7.2 [facility] Comment on above: Performed By: #### U INDRA ####[facility] ([facility])[address] [address] VIR URINALYSISon 04-25-2025 Bilirubin Ql (U) Negative Normal Negative [facility] Comment on above: Order Comment: Urine received without preservative. Delays in transport may affect results. Interpret with caution. A clinical correlation is recommended. Performed By: #### U A ####[facility] ([facility])[address] [facility] [address] [address] VIR BLOOD/HGB Negative Normal Negative [facility] Comment on above: Order Comment: Urine received without preservative. Delays in transport may affect results. Interpret with caution. A clinical correlation is recommended. Performed By: #### U A ####[facility] ([facility])[address] [facility] [address], [place] [address] VIR Color (U) Colorless Normal Yellow, Colorless [facility] Comment on above: Order Comment: Urine received without preservative. Delays in transport may affect results. Interpret with caution. A clinical correlation is recommended. Performed By: #### U A ####[facility] ([facility])[address] [facility] [address], [place] [address] VIR Glucose Ql (U) Negative Normal Negative [facility] Comment on above: Order Comment: Urine received without preservative. Delays in transport may affect results. Interpret with caution. A clinical correlation is recommended. Performed By: #### U A ####[facility] ([facility])[address] [facility] [address], [place] [address] VIR Ketones Ql (U) Negative Normal Negative [facility] Comment on above: Order Comment: Urine received without preservative. Delays in transport may affect results. Interpret with caution. A clinical correlation is recommended. Performed By: #### U A ####[facility] ([facility])[address], [place] [address] VIR Leukocyte esterase Test strip Ql (U) Negative Normal Negative [facility] Comment on above: Order Comment: Urine received without preservative. Delays in transport may affect results. Interpret with caution. A clinical correlation is recommended. Performed By: #### U A ####[facility] ([facility])[address] [facility] [address], [place] [address] VIR Nitrite Ql (U) Negative Normal Negative [facility] Comment on above: Order Comment: Urine received without preservative. Delays in transport may affect results. Interpret with caution. A clinical correlation is recommended. Performed By: #### U A ####[facility] ([facility])[address] [facility] [address], [place] [address] VIR PH,URINE 7.0 Normal 5.0-8.5 [facility] Comment on above: Order Comment: Urine received without preservative. Delays in transport may affect results. Interpret with caution. A clinical correlation is recommended. Performed By: #### U A ####[facility] ([facility])[address] [facility] [address] [address] VIR Protein Ql (U) Negative Normal Negative [facility] Comment on above: Order Comment: Urine received without preservative. Delays in transport may affect results. Interpret with caution. A clinical correlation is recommended. Performed By: #### U A ####[facility] ([facility])[address] [facility] [address] [address] VIR Specific gravity (U) [Rel density] 1.009 Normal 1.003-1.035 [facility] Comment on above: Order Comment: Urine received without preservative. Delays in transport may affect results. Interpret with caution. A clinical correlation is recommended. Performed By: #### U A ####[facility] ([facility])[address] [facility] [address], [place] [address] VIR TURBIDITY Clear Normal Clear [facility] Comment on above: Order Comment: Urine received without preservative. Delays in transport may affect results. Interpret with caution. A clinical correlation is recommended. Performed By: #### U A ####[facility] ([facility])[address] [facility] [address] [address] VIR UROBILINOGEN <1.1 eu/dL Normal <1.1 eu/dL [facility] Comment on above: Order Comment: Urine received without preservative. Delays in transport may affect results. Interpret with caution. A clinical correlation is recommended. Performed By: #### U A ####[facility] ([facility])[address] [facility] [address] [address] VIR VITAMIN B12on 04-25-2025 Cobalamin (Vitamin B12) [Mass/Vol] 274 pg/mL Normal 180-914 [facility] Comment on above: Performed By: #### B 12 ####[facility] ([facility])[address] [facility] [address], [place] [address] VIR VITAMIN D 25 HYDROXYon 04-25 VITAMIN D 25 HYD TOT 34.3 ng/mL Normal 30.0-100.0 [facility] Comment on above: Order Comment: Vitam in D status 25 [place] Vitamin D Deficiency <20 ng/mLInsufficiency 20-29 ng/mLSufficiency 30-100 ng/mLToxicity >100 ng/mLNOTE: A pediatric reference range has not been established by the safety risk lead of this kit. The [place] [employer] recommends a Vitamin D level of = or >20ng/mL in infants and children. Performed By: #### V ITD ####[facility] ([facility])[address], [place] [address] VIR APTTon 04-17-2025 aPTT Coag (Bld) [Time] 29 s Normal 26-37 Pr [facility] Comment on above: Performed By: #### C SUSIE, 1987-03, GERMAN TUTOR, LIVR, 95378-9, 51845-4, ENAP, 63574-4, AHP #### [facility] ([id number]) [address] [place] [address] BEDSIDE GLUCOSEon 04-17-2025 Glucose [Mass/Vol] 114 mg/dL High 65-99 [facility] Comment on above: Performed By: #### C SUSIE, 1987-03, GERMAN TUTOR, LIVR, 82161-5, 72227-9, ENAP, 07704-4, AHP #### [facility] ([id number]) [address] [place] [address] CBC WITH AUTO DIFFERENTIALon 04-17-2025 BASOPHILS ABSOLUTE COUNT (10*3/UL) BY AUTOMATED COUNT 0.0 10*3/uL Normal 0.0-0.2 [facility] Comment on above: Performed By: #### C SUSIE, 1987-03, GERMAN TUTOR, LIVR, 64759-9, 05381-4, ENAP, 94445-1, AHP #### [facility] ([id number]) [address] [address] BASOPHILS RELATIVE PERCENT BY AUTOMATED COUNT 0.4 % Normal [facility] Comment on above: Performed By: #### C SUSIE, 1987-03, GERMAN TUTOR, LIVR, 56914-4, 98330-5, ENAP, 33535-8, AHP #### [facility] ([id number]) [address] [facility] [address] [place] [address] CELLAVISION DIFFERENTIAL TYPE AUTOMATED DIFFERENTIAL Normal [facility] Comment on above: Performed By: #### C SUSIE, 1987-03, GERMAN TUTOR, LIVR, 78210-2, 47013-0, ENAP, 13321-8, AHP #### [facility] ([id number]) [address] [address] Eosinophils (Bld) [#/Vol] 0.2 10*3/uL Normal 0.0-0.4 [facility] Comment on above: Performed By: #### C SUSIE, 1987-03, GERMAN TUTOR, LIVR, 11010-7, 91473-9, ENAP, 71065-3, AHP #### [facility] ([id number]) [address] [address] EOSINOPHILS RELATIVE PERCENT BY AUTOMATED COUNT 2.5 % Normal [facility] Comment on above: Performed By: #### C SUSIE, 1987-03, GERMAN TUTOR, LIVR, 89354-0, 07532-8, ENAP, 29594-0, AHP #### [facility] ([id number]) [address] [address] Erythrocyte distribution width (RBC) [Ratio] 14.9 % Normal 11.5-15 [facility] Comment on above: Performed By: #### C SUSIE, 1987-03, GERMAN TUTOR, LIVR, 11085-7, 53978-8, ENAP, 16600-1, AHP #### [facility] ([id number]) [address] [place] [address] Hematocrit (Bld) [Volume fraction] 36.3 % Normal 35-47 [facility] Comment on above: Performed By: #### C SUSIE, 1987-03, GERMAN TUTOR, LIVR, 74841-4, 59066-4, ENAP, 52904-8, AHP #### [facility] ([id number]) [address] [facility] [address] [place] [address] Hemoglobin (Bld) [Mass/Vol] 11.9 g/dL Normal 11.7-15.5 [facility] Comment on above: Performed By: #### C SUSIE, 1987-03, GERMAN TUTOR, LIVR, 06481-6, 07245-6, ENAP, 92859-5, AHP #### [facility] ([id number]) [address] [facility] [address] [place] [address] LYMPHOCYTES ABSOLUTE COUNT (10*3/UL) BY AUTOMATED COUNT 1.7 10*3/uL Normal 1.0-3.5 [facility] Comment on above: Performed By: #### C SUSIE, 1987-03, GERMAN TUTOR, LIVR, 17846-6, 16401-2, ENAP, 43507-6, AHP #### [facility] ([id number]) [address] [address] LYMPHOCYTES RELATIVE PERCENT BY AUTOMATED COUNT 20.2 % Normal [facility] Comment on above: Performed By: #### C SUSIE, 1987-03, GERMAN TUTOR, LIVR, 29180-0, 02310-5, ENAP, 66987-5, AHP #### [facility] ([id number]) [address] [address] [place] [address] MCH (RBC) [Entitic mass] 30.0 pg Normal 27-34 [facility] Comment on above: Performed By: #### C SUSIE, 1987-03, GERMAN TUTOR, LIVR, 23738-6, 94517-5, ENAP, 03258-3, AHP #### [facility] ([id number]) [address] [place] [address] MCHC (RBC) [Mass/Vol] 32.7 g/dL Normal 32-36 [facility] Comment on above: Performed By: #### C BCA, 1987-03, GERMAN TUTOR, LIVR, 73548-7, 20603-1, ENAP, 61753-2, AHP #### [facility] ([id number]) [address] [place] [address] MCV (RBC) [Entitic vol] 92 fL Normal 80-100 [facility] Comment on above: Performed By: #### C SUSIE, 1987-03, GERMAN TUTOR, LIVR, 42800-6, 47862-1, ENAP, 63593-5, AHP #### [facility] ([id number]) [address] [place] [address] MONOCYTES ABSOLUTE COUNT (10*3/UL) BY AUTOMATED COUNT 0.7 10*3/uL Normal 0.0-0.9 [facility] Comment on above: Performed By: #### C SUSIE, 1987-03, GERMAN TUTOR, LIVR, 52410-6, 91842-4, ENAP, 09561-4, AHP #### [facility] ([id number]) [address] [place] [address] MONOCYTES RELATIVE PERCENT BY AUTOMATED COUNT 8.7 % Normal [facility] Comment on above: Performed By: #### C BCA, 1987-03, GERMAN TUTOR, LIVR, 27765-0, 69255-0, ENAP, 50545-0, AHP #### [facility] ([id number]) [address] [place] [address] NEUTROPHILS ABSOLUTE COUNT BY AUTOMATED COUNT 5.6 10*3/uL Normal 1.5-6.6 [facility] Comment on above: Performed By: #### C SUSIE, 1987-03, GERMAN TUTOR, LIVR, 96024-4, 47255-4, ENAP, 59915-9, AHP #### [facility] ([id number]) [address] [place] [address] NEUTROPHILS RELATIVE PERCENT BY AUTOMATED COUNT 68.2 % Normal [facility] Comment on above: Performed By: #### C SUSIE, 1987-03, GERMAN TUTOR, LIVR, 41842-2, 79821-4, ENAP, 49409-3, AHP #### [facility] ([id number]) [address], [facility] [address] [place] [address] Platelet mean volume (Bld) [Entitic vol] 8.4 fL Normal 7-12 [facility] Comment on above: Performed By: #### C SUSIE, 1987-03, GERMAN TUTOR, LIVR, 12367-0, 41814-3, ENAP, 32561-6, AHP #### [facility] ([id number]) [address], [address] [place] [address] Platelets (Bld) [#/Vol] 255 10*3/uL Normal 150-450 [facility] Comment on above: Performed By: #### C SUSIE, 1987-03, GERMAN T[employer]OR, LIVR, 53998-8, 51873-5, ENAP, 50648-5, AHP #### [facility] ([id number]) [address], [facility] [address] [place] [address] RBC COUNT 3.95 X10E12/L Normal 3.8-5.2 [facility] Comment on above: Performed By: #### C SUSIE, 1987-03, GERMAN TUTOR, LIVR, 15743-8, 55825-6, ENAP, 27564-8, AHP #### [facility] ([id number]) [address], [address] [place] [address] WBC (Bld) [#/Vol] 8.3 10*3/uL Normal 4-11 [facility] Comment on above: Performed By: #### C BCA, 1987-03, GERMAN TUTOR, LIVR, 32124-3, 35891-8, ENAP, 20274-2, AHP #### [facility] ([id number]) [address], [address] [place] [address] COMPREHENSIVE METABOLIC PANE Martin 04-17-2025 Albumin [Mass/Vol] 4.7 g/dL Normal 3.2-5.3 [facility] Comment on above: Performed By: #### C BCA, 1987-03, GERMAN TUTOR, LIVR, 91685-8, 78368-6, ENAP, 23624-1, AHP #### [facility] ([id number]) [address], [address] [place] [address] ALP [Catalytic activity/Vol] 88 U/L Normal 39-130 [facility] Comment on above: Performed By: #### C BCA, 1987-03, GERMAN TUTOR, LIVR, 62309-2, 56043-3, ENAP, 81611-4, AHP #### [facility] ([id number]) [address], [address] [place] [address] ALT [Catalytic activity/Vol] 17 U/L Normal <=31 [facility] Comment on above: Performed By: #### C BCA, 1987-03, GERMAN TUTOR, LIVR, 44825-8, 98422-9, ENAP, 04542-5, AHP #### [facility] ([id number]) [address], [address] [place] [address] Anion gap [Moles/Vol] 11 mmol/L Normal 5-15 [facility] Comment on above: Performed By: #### C BCA, 1987-03, GERMAN TUTOR, LIVR, 71330-8, 88965-4, ENAP, 39633-8, AHP #### [facility] ([id number]) [address], [address] [place] [address] AST [Catalytic activity/Vol] 20 U/L Normal <=41 [facility] Comment on above: Performed By: #### C BCA, 1987-03, GERMAN TUTOR, LIVR, 82145-9, 31321-3, ENAP, 50421-5, AHP #### [facility] ([id number]) [address], [address] [place] [address] Bilirubin [Mass/Vol] 0.8 mg/dL Normal 0.3-1.2 [facility] Comment on above: Performed By: #### C BCA, 1987-03, GERMAN TUTOR, LIVR, 03882-7, 02741-3, ENAP, 65181-8, AHP #### [facility] ([id number]) [address], [address] [place] [address] Calcium [Mass/Vol] 10.3 mg/dL Normal 8.5-10.5 [facility] Comment on above: Performed By: #### C BCA, 1987-03, GERMAN TUTOR, LIVR, 90558-8, 59505-4, ENAP, 50689-3, AHP #### [facility] ([id number]) [address], [address] [place] [address] Chloride [Moles/Vol] 96 mmol/L Low 98-109 [facility] Comment on above: Performed By: #### C BCA, 1987-03, GERMAN TUTOR, LIVR, 54571-6, 56332-1, ENAP, 72791-2, AHP #### [facility] ([id number]) [address], [address] [place] [address] CO2 [Moles/Vol] 32 mmol/L Normal 22-32 [facility] Comment on above: Performed By: #### C BCA, 1987-03, GERMAN TUTOR, LIVR, 72363-0, 63140-0, ENAP, 16193-8, AHP #### [facility] ([id number]) [address], [address] [place] [address] Creatinine [Mass/Vol] 1.12 mg/dL High 0.40-1.00 [facility] Comment on above: Result Comment: METH OD TRACEABLE TO IDMS STANDARD Performed By: #### C BCA, 1987-03, GERMAN TUTOR, LIVR, 66130-4, 10109-7, ENAP, 52272-7, AHP #### [facility] ([id number]) [address] [address] GFR/1.73 sq M.predicted among non-blacks MDRD (S/P/Bld) [Vol rate/Area] 52 mL/min/{1.73_m2} Low >=60 [facility] Comment on above: Result Comment: Repo rt eGFR is based on the CKD-EPI 2020 equation that does not use a race coefficient. Performed By: #### C BCA, 1987-03, GERMAN TUTOR, LIVR, 25989-4, 25357-9, ENAP, 68319-6, AHP #### [facility] ([id number]) [address] [address] Glucose [Mass/Vol] 112 mg/dL High 65-99 [facility] Comment on above: Performed By: #### C BCA, 1987-03, GERMAN TUTOR, LIVR, 94398-7, 72510-4, ENAP, 07875-3, AHP #### [facility] ([id number]) [address] [address] Potassium [Moles/Vol] 4.6 mmol/L Normal 3.5-5.0 [facility] Comment on above: Performed By: #### C BCA, 1987-03, GERMAN TUTOR, LIVR, 94848-2, 97281-3, ENAP, 36358-0, AHP #### [facility] ([id number]) [address] [address] Protein [Mass/Vol] 8.1 g/dL High 6.0-8.0 [facility] Comment on above: Performed By: #### C BCA, 1987-03, GERMAN TUTOR, LIVR, 40838-8, 43135-7, ENAP, 29017-4, AHP #### [facility] ([id number]) [address], [address] [place] [address] Sodium [Moles/Vol] 139 mmol/L Normal 134-146 [facility] Comment on above: Performed By: #### C BCA, 1987-03, GERMAN TUTOR, LIVR, 83249-5, 47824-2, ENAP, 29127-7, AHP #### [facility] ([id number]) [address], [address] [place] [address] Urea nitrogen [Mass/Vol] 30 mg/dL High 5-27 [facility] Comment on above: Performed By: #### C BCA, 1987-03, GERMAN TUTOR, LIVR, 46558-2, 87852-5, ENAP, 20507-8, AHP #### [facility] ([id number]) [address], [address] [place] [address] CT ABDOMEN AND PELVIS WO CON Ton [...] Ramirez MD on 04/17/2025 8:33 PM Normal [facility] CT BRAIN WO CONTon 5 CT [...] Ramirez MD on 04/17/2025 8:30 PM Normal [facility] CT CHEST WO CONTon 5 CT [...] detection for pulmonary nodules was performed utilizing Chimer[employer] software. FINDINGS: Comparison: CT dated 01/04/2019. Nodule [...] Peres MD on 04/17/2025 8:31 PM Normal [facility] LACTATE W/ REFLEXon 04-17-20 25 LACTATE W/REFLEX 0.7 mmol/L Normal 0.4-2.0 [facility] Comment on above: Order Comment: Resul t did not trigger repeat Lactate,re-order if needed. Performed By: #### C SUSIE, 1987-03, GERMAN TUTOR, LIVR, 17322-1, 78648-4, ENAP, 00311-7, AHP #### [facility] ([id number]) [address], [address] [place] [address] POCT NURSING URINE MACROSCOP IC UAon 04-17-2025 BILIRUBIN SUSAN Negative Normal Negative [facility] Comment on above: Performed By: #### C SUSIE, 1987-03, GERMAN TUTOR, LIVR, 68167-7, 88513-9, ENAP, 91268-7, AHP #### [facility] ([id number]) [address], [address] [place] [address] BLOOD/HGB SUSAN Negative Normal Negative [facility] Comment on above: Performed By: #### C SUSIE, 1987-03, GERMAN TUTOR, LIVR, 35934-0, 67762-7, ENAP, 95638-2, AHP #### [facility] ([id number]) [address], [address] [place] [address] GLUCOSE SUSAN Negative Normal Negative [facility] Comment on above: Performed By: #### C BCA, 1987-03, GERMAN TUTOR, LIVR, 91090-0, 71551-9, ENAP, 42491-5, AHP #### [facility] ([id number]) [address], [address] [place] [address] KETONES SUSAN Negative Normal Negative [facility] Comment on above: Performed By: #### C BCA, 1987-03, GERMAN TUTOR, LIVR, 14022-0, 33451-3, ENAP, 00101-0, AHP #### [facility] ([id number]) [address], [address] [place] [address] LEUKOCYTE ESTERASE SUSAN Small Abnormal Negative [facility] Comment on above: Performed By: #### C BCA, 1987-03, GERMAN TUTOR, LIVR, 05664-5, 80798-9, ENAP, 57835-5, AHP #### [facility] ([id number]) [address], [address] [place] [address] NITRITE SUSAN Negative Normal Negative [facility] Comment on above: Performed By: #### C BCA, 1987-03, GERMAN TUTOR, LIVR, 03491-0, 63465-7, ENAP, 96850-0, AHP #### [facility] ([id number]) [address], [address] [place] [address] PH SUSAN 7.5 Normal 5.0, 6.0, 6.5, 7.0, 7.5, 8.0, 8.5, 5.5 [facility] Comment on above: Performed By: #### C BCA, 1987-03, GERMAN TUTOR, LIVR, 56212-3, 79633-6, ENAP, 65286-4, AHP #### [facility] ([id number]) [address], [address] [place] [address] PROTEIN SUSAN Trace Abnormal Negative [facility] Comment on above: Performed By: #### C BCA, 1987-03, GERMAN TUTOR, LIVR, 38769-0, 83494-2, ENAP, 28481-1, AHP #### [facility] ([id number]) [address], [address] [place] [address] SPECIFIC GRAVITY SUSAN 1.015 Normal 1.010, 1.015, 1.020, 1.025 [facility] Comment on above: Performed By: #### C SUSIE, 1987-03, GERMAN TUTOR, LIVR, 86609-8, 86620-9, ENAP, 52604-4, AHP #### [facility] ([id number]) [address], [address] [place] [address] UROBILINOGEN SUSAN 0.2 E.U./dL Normal [facility] Comment on above: Performed By: #### C SUSIE, 1987-03, GERMAN TUTOR, LIVR, 44778-3, 72826-2, ENAP, 60430-2, AHP #### [facility] ([id number]) [address], [address] [address] PROTIME AND INRon 04-17-2025 INR 1.0 Normal 0.9-1.2 [facility] Comment on above: Performed By: #### C BCA, 1987-03, GERMAN TUTOR, LIVR, 88756-2, 53892-8, ENAP, 21497-5, AHP #### [facility] ([id number]) [address], [address] [place] [address] PT Coag (PPP) [Time] 11.2 s Normal 9.8-13.2 [facility] Comment on above: Performed By: #### C BCA, 1987-03, GERMAN TUTOR, LIVR, 60964-6, 07253-3, ENAP, 61796-0, AHP #### [facility] ([id number]) [address], [address] [place] [address] T4, FREEon 04-17-2025 Free T4 [Mass/Vol] 1.46 ng/dL Normal 0.61-1.60 [facility] Comment on above: Performed By: #### C BCA, 1987-03, GERMAN TUTOR, LIVR, 91205-2, 18510-6, ENAP, 98487-9, AHP #### [facility] ([id number]) [address], [address] [place] [address] TROP I, HIGH SENSITIVITY 1 H OURon 04-17-2025 TROPONIN I, HIGH SENSITIVITY 10 ng/L Normal <16 [facility] Comment on above: Performed By: #### C SUSIE, 1987-03, GERMAN TUTOR, LIVR, 06505-7, 15690-4, ENAP, 49235-6, AHP #### [facility] ([id number]) [address], [address] [place] [address] TROPONIN I, HIGH SENSITIVITY 0 HOURon 04-17-2025 TROPONIN I, HIGH SENSITIVITY 10 ng/L Normal <16 [facility] Comment on above: Performed By: #### C BCA, 1987-03, GERMAN TUTOR, LIVR, 97896-9, 64372-1, ENAP, 62989-0, AHP #### [facility] ([id number]) [address], [address] [place] [address] TSHon 04-17-2025 TSH 1.57 uIU/mL Normal 0.49-4.67 [facility] Comment on above: Performed By: #### C SUSIE, 1987-03, GERMAN TUTOR, LIVR, 38498-7, 08567-1, ENAP, 46494-9, AHP #### [facility] ([id number]) [address], [address] [place] [address] MR BREAST BILAT W WO CONT W CADon 02-27-2025 MR BREAST BILAT W WO CONT W CAD MR BREAST BILAT W WO CONT W CAD BEENA DIAZ 1950 [id number] EXAM: MR BREAST BILAT W WO CONT [...] image and subtraction processing were performed using [employer] software. Additional silicone selective sequence added for [...] on 02/27/2025 2:51 PM 1 RETURN TO MA Normal [facility] [place] AMB CERVICAL EPIDURALon 0 02-13-2025 [...] Cordero MD on 02/13/2025 2:05 PM Normal [facility] PPG DEXA SCAN CENTRAL SKELETALon 02-10-2025 [...] Valencia MD on 02/10/2025 5:45 AM Normal [facility] CBC AND AUTO DIFFon 02-03-20 ABSOLUTE BASOPHIL 0.0 X10E9/L Normal 0.0-0.2 [facility] Comment on above: Performed By: #### C SUSIE, CMP, 74729-9 ####[facility] ([id number])[address], [address] [place] [address] ABSOLUTE NEUTROPHIL 3.4 X10E9/L Normal 1.5-6.6 [facility] Comment on above: Performed By: #### C RENEE RICHARDS, 14859-8 ####[facility] ([id number])[address] [address] [place] [address] Basophils/100 WBC (Bld) 0.3 % Normal [facility] Comment on above: Performed By: #### Nicolás RICHARDS CMP, 05505-7 ####[facility] ([id number])[address] [address] [address] Eosinophils (Bld) [#/Vol] 0.3 10*3/uL Normal 0.0-0.4 [facility] Comment on above: Performed By: #### Nicolás RICHARDS CMP, 08020-6 ####[facility] ([id number])[address] [address] [address] Eosinophils/100 WBC (Bld) 4.7 % Normal [facility] Comment on above: Performed By: #### Nicolás RICHARDS CMP, 13432-7 ####[facility] ([id number])[address] [address] [place] [address] Erythrocyte distribution width (RBC) [Ratio] 15.7 % High 11.5-15.0 [facility] Comment on above: Performed By: #### Nicolás RICHARDS CMP, 95275-0 ####[facility] ([id number])[address] [address] [place] [address] Hematocrit (Bld) [Volume fraction] 38.8 % Normal 35-47 [facility] Comment on above: Performed By: #### Nicolás RICHARDS CMP, 66850-8 ####[facility] ([id number])[address] [address] [place] [address] Hemoglobin (Bld) [Mass/Vol] 12.9 g/dL Normal 11.7-15.5 [facility] Comment on above: Performed By: #### C SUSIE CMP, 13341-3 ####[facility] ([id number])[address], [place] [address] Lymphocytes (Bld) [#/Vol] 1.4 10*3/uL Normal 1.0-3.5 [facility] Comment on above: Performed By: #### C SUSIE, CMP, 26922-3 ####[facility] ([id number])[address], [place] [address] Lymphocytes/100 WBC (Bld) 24.9 % Normal [facility] Comment on above: Performed By: #### Nicolás RICHARDS, CMP, 24558-7 ####[facility] ([id number])[address], [place] [address] MCH (RBC) [Entitic mass] 30.8 pg Normal 27-34 [facility] Comment on above: Performed By: #### C SUSIE, CMP, 61045-9 ####[facility] ([id number])[address] [address] MCHC (RBC) [Mass/Vol] 33.3 g/dL Normal 32-36 [facility] Comment on above: Performed By: #### Nicolás RICHARDS CMP, 89178-3 ####[facility] ([id number])[address] [address] MCV (RBC) [Entitic vol] 92 fL Normal 80-100 [facility] Comment on above: Performed By: #### C SUSIE, CMP, 80020-7 ####[facility] ([id number])[address] [address] [place] [address] Monocytes (Bld) [#/Vol] 0.5 10*3/uL Normal 0-0.9 [facility] Comment on above: Performed By: #### C BCA, CMP, 43183-1 ####[facility] ([id number])[address], [address], [place] [address] Monocytes/100 WBC (Bld) 8.9 % Normal [facility] Comment on above: Performed By: #### Nicolás RICHARDS, CMP, 26743-7 ####[facility] ([id number])[address], [address], [place] [address] Neutrophils/100 WBC (Bld) 61.2 % Normal [facility] Comment on above: Performed By: #### C SUSIE, CMP, 77794-4 ####[facility] ([id number])[address], [place] [address] Platelet mean volume (Bld) [Entitic vol] 9.5 fL Normal 7-12 [facility] Comment on above: Performed By: #### Nicolás RICHARDS, CMP, 06803-5 ####[facility] ([id number])[address], [place] [address] Platelets (Bld) [#/Vol] 220 10*3/uL Normal 150-450 [facility] Comment on above: Performed By: #### Nicolás RICHARDS, CMP, 21460-1 ####[facility] ([id number])[address], [place] [address] RBC COUNT 4.20 X10E12/L Normal 3.80-5.20 [facility] Comment on above: Performed By: #### Nicolás BCA, CMP, 87912-9 ####[facility] ([id number])[address], [address], [place] [address] WBC (Bld) [#/Vol] 5.5 10*3/uL Normal 4.0-11.0 [facility] Comment on above: Performed By: #### Nicolás BCA, CMP, 85030-7 ####[facility] ([id number])[address], [address], [place] [address] COMPREHENSIVE METABOLIC PANE Martin 02-02-2025 Albumin [Mass/Vol] 4.5 g/dL Normal 3.2-5.3 [facility] Comment on above: Performed By: #### C SUSIE, CMP, 07498-1 ####[facility] ([id number])[address], [address], [place] [address] ALP [Catalytic activity/Vol] 66 U/L Normal 39-130 [facility] Comment on above: Performed By: #### C SUSIE, CMP, 37429-5 ####[facility] ([id number])[address], [address], [place] [address] ALT [Catalytic activity/Vol] 8 U/L Normal 0-31 [facility] Comment on above: Performed By: #### C SUSIE, CMP, 86305-5 ####[facility] ([id number])[address], [place] [address] Anion gap [Moles/Vol] 8 mmol/L Normal 5-15 [facility] Comment on above: Performed By: #### C SUSIE CMP, 05245-8 ####[facility] ([id number])[address], [place] [address] AST [Catalytic activity/Vol] 27 U/L Normal 0-41 [facility] Comment on above: Performed By: #### C SUSIE, CMP, 71395-1 ####[facility] ([id number])[address], [place] [address] Bilirubin [Mass/Vol] 1.7 mg/dL High 0.3-1.2 [facility] Comment on above: Performed By: #### C BCA, CMP, 48135-6 ####[facility] ([id number])[address], [place] [address] Calcium [Mass/Vol] 9.7 mg/dL Normal 8.5-10.5 [facility] Comment on above: Performed By: #### C BCA CMP, 30808-6 ####[facility] ([id number])[address] [address] [place] [address] Chloride [Moles/Vol] 99 mmol/L Normal 98-109 [facility] Comment on above: Performed By: #### C SUSIE CMP, 77549-7 ####[facility] ([id number])[address] [place] [address] CO2 [Moles/Vol] 32 mmol/L Normal 22-32 [facility] Comment on above: Performed By: #### C SUSIE, CMP, 64853-7 ####[facility] ([id number])[address] [address] [address] Creatinine [Mass/Vol] 0.74 mg/dL Normal 0.40-1.00 [facility] Comment on above: Result Comment: METH OD TRACEABLE TO IDMS STANDARD Performed By: #### C RENEE RICHARDS, 35452-5 ####[facility] ([id number])[address] [address] GFR/1.73 sq M.predicted among non-blacks MDRD (S/P/Bld) [Vol rate/Area] 85 mL/min/{1.73_m2} Normal >59 [facility] Comment on above: Result Comment: Reported eGFR is based on the CKD-EPI 2020 equation that does not use a race coefficient. Performed By: #### C BCA, CMP, 21080-0 ####[facility] ([id number])[address] [address] [place] [address] Glucose [Mass/Vol] 88 mg/dL Normal 65-99 [facility] Comment on above: Performed By: #### C BCA, CMP, 48580-6 ####[facility] ([id number])[address] [address] [place] [address] Potassium [Moles/Vol] 4.0 mmol/L Normal 3.5-5.0 [facility] Comment on above: Performed By: #### Nicolás RICHARDS CMP, 66994-3 ####[facility] ([id number])[address] [place] [address] Protein [Mass/Vol] 7.2 g/dL Normal 6.0-8.0 [facility] Comment on above: Performed By: #### Nicolás RICHARDS CMP, 35027-9 ####[facility] ([id number])[address] [place] [address] Sodium [Moles/Vol] 139 mmol/L Normal 134-146 [facility] Comment on above: Performed By: #### Nicolás RICHARDS CMP, 50445-4 ####[facility] ([id number])[address] [address] Urea nitrogen [Mass/Vol] 16 mg/dL Normal 5-27 [facility] Comment on above: Performed By: #### Nicolás RICHARDS, CMP, 00881-5 ####[facility] ([id number])[address] [place] [address] Lipid 1996 panelon 5 Cholesterol [Mass/Vol] 154 mg/dL Normal 150-200 [facility] Comment on above: Performed By: #### Nicolás RICHARDS, CMP, 19934-3 ####[facility] ([id number])[address] [address] Cholesterol in HDL [Mass/Vol] 79 mg/dL Normal >39 [facility] Comment on above: Result Comment: HDL <40 mg/dL - High Risk HDL > or = 40mg/dL- Desirable HDL >60 mg/dL - Negative Risk Performed By: #### C BCA, CMP, 05741-0 ####[facility] ([id number])[address], [address], [place] [address] Cholesterol in LDL [Mass/Vol] 64 mg/dL Normal <130 [facility] Comment on above: Result Comment: LDL <100 mg/dL - Desirable LDL >160 mg/dL - High Risk Performed By: #### Nicolás BCA, CMP, 71974-3 ####[facility] ([id number])[address], [address] [place] [address] Cholesterol in VLDL [Mass/Vol] 11 mg/dL Normal 0-30 [facility] Comment on above: Performed By: #### Nicolás BCA, CMP, 38898-3 ####[facility] ([id number])[address], [address] [place] [address] CHOLESTEROL:HDL 1.9 Normal 1.0-5.0 [facility] Comment on above: Performed By: #### Nicolás BCA, CMP, 46378-3 ####[facility] ([id number])[address], [address] [place] [address] Triglyceride [Mass/Vol] 54 mg/dL Normal 27-150 [facility] Comment on above: Performed By: #### C BCA, CMP, 40183-2 ####[facility] ([id number])[address], [address] [place] [address] URINALYSISon 02-02-2025 Bilirubin Ql (U) Negative Normal NEG [facility] Comment on above: Performed By: #### U A ####[facility] ([id number])[address], [address] [place] [address] BLOOD/HGB Negative Normal NEG [facility] Comment on above: Performed By: #### U A ####[facility] ([id number])[address], [address], [place] [address] Color (U) YELLOW Normal YELLOW [facility] Comment on above: Performed By: #### U A ####[facility] ([id number])[address], [address], [place] [address] Glucose Ql (U) Negative Normal NEG [facility] Comment on above: Performed By: #### U A ####[facility] ([id number])[address], [address] [place] [address] Ketones Ql (U) Negative Normal NEG [facility] Comment on above: Performed By: #### U A ####[facility] ([id number])[address], [address] [place] [address] Leukocyte esterase Test strip Ql (U) Negative Normal NEG [facility] Comment on above: Performed By: #### U A ####[facility] ([id number])[address], [address] [place] [address] MUCOUS PRESENT Abnormal NONE [facility] Comment on above: Performed By: #### U A ####[facility] ([id number])[address], [address] [address] Nitrite Ql (U) Negative Normal NEG [facility] Comment on above: Performed By: #### U A ####[facility] ([id number])[address], [address] [place] [address], [place] [address] pH (U) 7.0 [pH] Normal 5.0-8.5 [facility] Comment on above: Performed By: #### U A ####[facility] ([id number])[address] [address] [place] [address] Protein Ql (U) Trace Abnormal NEG [facility] Comment on above: Performed By: #### U A ####[facility] ([id number])0 [address] [address] [place] [address] 33533 R.B.CELLS <1 Normal 0-5 [facility] Comment on above: Performed By: #### U A ####[facility] ([id number])0 [address] [address] [place] [address] 40787 Specific gravity (U) [Rel density] 1.022 Normal 1.003-1.035 [facility] Comment on above: Performed By: #### U A ####[facility] ([id number])0 [address] [address] [place] [address] 89212 SQUAMOUS EPITHELIUM 1 /hpf Normal 0-5 [facility] Comment on above: Performed By: #### U A ####[facility] ([id number])0 [address] [address] [place] [address] 64196 TURBIDITY CLEAR Normal CLEAR [facility] Comment on above: Performed By: #### U A ####[facility] ([id number])0 [address] [address] [place] [address] 77619 Urobilinogen (U) [Mass/Vol] mg/dL Normal <1.1 [facility] Comment on above: Performed By: #### U A ####[facility] ([id number])[address]130 [address] [address] [place] [address] 72073 W.B.CELLS 1 /hpf Normal 0-5 [facility] Comment on above: Performed By: #### U A ####[facility] ([id number])[address]130 [address] [address] [place] [address] FL AMB CERVICAL EPIDURALon 0 01-30-2025 FL [...] Kendall MD on 01/30/2025 4:41 PM Normal [facility] XR SPINE CERVICAL FLEXION/EX TENSION [...] Hannon MD on 01/23/2025 8:12 PM Normal [facility] MR CERVICAL SPINE WO CONTon 12-27-2024 [...] Paradise Palacios MD on 12/27/2024 8:02 AM [facility] [place] [facility] XR SPINE CERVICAL 3 VWS OR L [...] Truman Hannon MD on 12/07/2024 10:56 AM [facility] PPG tpion 12-06-2024 CIARRA Hernandez 12/06/2024 [...] Complications: none Interventions: none MANUALLY TRANSCRIBED RESULTS [facility] ACUTE HEPATITIS PANELon 11-10 ANTI HCV W/PCR REFLX Non-Reactive Normal NRCT [facility] Comment on above: Result Comment: NEW TEST METHOD NOTE If recent infection suspected, recommend repeat testing (>2 months). Uylevc-zn-ocrfnu ratio is <1.00. Performed By: #### C SUSIE, 1987-03, GERMAN TUTOR, LIVR, 74024-7, 73339-6, ENAP, 51196-5, AHP ####[facility] ([id number])[address], [address] [place] [address] 75819 HEPATITIS A IGM Non-Reactive Normal NRCT [facility] Comment on above: Result Comment: NEW TEST METHOD Performed By: #### C SUSIE, 1987-03, GERMAN TUTOR, LIVR, 31456-7, 39672-7, ENAP, 61885-3, AHP ####[facility] ([id number])[address], [address] [place] [address] 22006 HEPATITIS B CORE IGM Non-Reactive Normal NRCT [facility] Comment on above: Result Comment: NEW TEST METHOD Performed By: #### C SUSIE, 1987-03, GERMAN TUTOR, LIVR, 83747-6, 69367-3, ENAP, 78223-7, AHP ####[facility] ([id number])[address], [address] [place] [address] 94609 HEPATITIS B SURF AG Non-Reactive Normal NRCT [facility] Comment on above: Result Comment: NEW TEST METHOD Performed By: #### C SUSIE, 1987-03, GERMAN TUTOR, LIVR, 79366-7, 32343-2, ENAP, 63490-4, AHP ####[facility] ([id number])[address], [address] [place] [address] 92751 Antinuclear AB, HE-p Substra te, (PJ by IFA)on 11-29-2024 Antinuclear Ab, HEp-2 Substrate, S Negative Normal <1:80 (Negative) [facility] Comment on above: Result Comment: NOTE ADDITIONAL INFORMATION Method: Immunofluorescence using HEp-2 cellular substrate. Test Performed by: [facility] [address] [place] [address] 7Th Grade Social Studies Teacher: Sam Dukes Ph.D.; CLIA# [id number] Performed By: #### C SUSIE, 1987-03, GERMAN TUTOR, LIVR, 07885-0, 88451-3, ENAP, 64339-1, AHP ####[facility] ([id number])[address], [address] [place] [address] 25626 C REACTIVE PROTEINon 025 CRP [Mass/Vol] mg/L Normal 0.000-0.744 [facility] Comment on above: Performed By: #### C SUSIE, 1987-03, GERMAN TUTOR, LIVR, 27524-6, 89704-6, ENAP, 52633-5, P #### [facility] ([id number]) [address] [place] [address] 59647 CBC AND AUTO DIFFon 11-29-19 25 ABSOLUTE BASOPHIL 0.0 X10E9/L Normal 0.0-0.2 [facility] Comment on above: Performed By: #### C SUSIE, 1987-03, GERMAN TUTOR, LIVR, 75171-0, 70443-7, ENAP, 36063-3, AHP #### [facility] ([id number]) [address], [address] [place] [address] ABSOLUTE NEUTROPHIL 2.8 X10E9/L Normal 1.5-6.6 [facility] Comment on above: Performed By: #### C SUSIE, 1987-03, GERMAN TUTOR, LIVR, 67850-9, 90940-9, ENAP, 80614-2, AHP #### [facility] ([id number]) [address], [address] [place] [address] Basophils/100 WBC (Bld) 0.7 % Normal [facility] Comment on above: Performed By: #### C SUSIE, 1987-03, GERMAN TUTOR, LIVR, 12821-5, 94769-8, ENAP, 33500-1, AHP #### [facility] ([id number]) [address], [address] [place] [address] Eosinophils (Bld) [#/Vol] 0.3 10*3/uL Normal 0.0-0.4 [facility] Comment on above: Performed By: #### C SUSIE, 1987-03, GERMAN TUTOR, LIVR, 46252-3, 49638-5, ENAP, 35608-3, AHP #### [facility] ([id number]) [address], [address] [place] [address] Eosinophils/100 WBC (Bld) 5.6 % Normal [facility] Comment on above: Performed By: #### C SUSIE, 1987-03, GERMAN TUTOR, LIVR, 65592-4, 72511-3, ENAP, 59431-1, AHP #### [facility] ([id number]) [address], [address] [place] [address] Erythrocyte distribution width (RBC) [Ratio] 15.1 % High 11.5-15.0 [facility] Comment on above: Performed By: #### C SUSIE, 1987-03, GERMAN TUTOR, LIVR, 26133-5, 91426-1, ENAP, 99803-2, AHP #### [facility] ([id number]) [address], [address] [place] [address] Hematocrit (Bld) [Volume fraction] 38.1 % Normal 35-47 [facility] Comment on above: Performed By: #### C SUSIE, 1987-03, GERMAN TUTOR, LIVR, 82050-0, 29774-5, ENAP, 92542-4, AHP #### [facility] ([id number]) [address], [address] [place] [address] Hemoglobin (Bld) [Mass/Vol] 12.8 g/dL Normal 11.7-15.5 [facility] Comment on above: Performed By: #### C SUSIE, 1987-03, GERMAN TUTOR, LIVR, 79537-0, 99593-8, ENAP, 14678-5, AHP #### [facility] ([id number]) [address], [facility] [address] [place] [address] Lymphocytes (Bld) [#/Vol] 1.9 10*3/uL Normal 1.0-3.5 [facility] Comment on above: Performed By: #### C SUSIE, 1987-03, GERMAN TUTOR, LIVR, 70837-5, 52925-2, ENAP, 94924-2, AHP #### [facility] ([id number]) [address] [address] [place] [address] Lymphocytes/100 WBC (Bld) 32.8 % Normal [facility] Comment on above: Performed By: #### Nicolás RICHARDS, 1987-03, GERMAN TUTOR, LIVR, 18108-2, 81947-8, ENAP, 73690-7, AHP #### [facility] ([id number]) [address], [address] [place] [address] MCH (RBC) [Entitic mass] 29.9 pg Normal 27-34 [facility] Comment on above: Performed By: #### C SUSIE, 1987-03, GERMAN TUTOR, LIVR, 96285-3, 36288-7, ENAP, 19276-3, AHP #### [facility] ([id number]) [address], [address] [place] [address] MCHC (RBC) [Mass/Vol] 33.6 g/dL Normal 32-36 [facility] Comment on above: Performed By: #### C SUSIE, 1987-03, GERMAN TUTOR, LIVR, 67050-6, 41723-9, ENAP, 50597-6, AHP #### [facility] ([id number]) [address], [address] [place] [address] MCV (RBC) [Entitic vol] 89 fL Normal 80-100 [facility] Comment on above: Performed By: #### Nicolás RICHARDS, 1987-03, GERMAN TUTOR, LIVR, 58357-0, 73315-5, ENAP, 10108-0, AHP #### [facility] ([id number]) [address], [address] [place] [address] Monocytes (Bld) [#/Vol] 0.6 10*3/uL Normal 0-0.9 [facility] Comment on above: Performed By: #### Nicolás RICHARDS, 1987-03, GERMAN TUTOR, LIVR, 77911-1, 97205-7, ENAP, 38135-6, AHP #### [facility] ([id number]) [address], [address] [place] [address] Monocytes/100 WBC (Bld) 10.7 % Normal [facility] Comment on above: Performed By: #### Nicolás RICHARDS, 1987-03, GERMAN TUTOR, LIVR, 84995-3, 54155-4, ENAP, 26148-6, AHP #### [facility] ([id number]) [address], [facility] [address] [place] [address] Neutrophils/100 WBC (Bld) 50.2 % Normal [facility] Comment on above: Performed By: #### C SUSIE, 1987-03, GERMAN TUTOR, LIVR, 23361-5, 31124-8, ENAP, 61432-9, AHP #### [facility] ([id number]) [address], [address] [place] [address] Platelet mean volume (Bld) [Entitic vol] 9.4 fL Normal 7-12 [facility] Comment on above: Performed By: #### C SUSIE, 1987-03, GERMAN TUTOR, LIVR, 73237-0, 98490-0, ENAP, 82166-2, AHP #### [facility] ([id number]) [address], [address] [place] [address] Platelets (Bld) [#/Vol] 213 10*3/uL Normal 150-450 [facility] Comment on above: Performed By: #### C SUSIE, 1987-03, GERMAN TUTOR, LIVR, 90324-4, 83363-1, ENAP, 33048-2, AHP #### [facility] ([id number]) [address], [facility] [address] [place] [address] RBC COUNT 4.28 X10E12/L Normal 3.80-5.20 [facility] Comment on above: Performed By: #### Nicolás RICHARDS, 1987-03, GERMAN TUTOR, LIVR, 86104-3, 50185-9, ENAP, 61826-0, AHP #### [facility] ([id number]) [address], [address] [place] [address] WBC (Bld) [#/Vol] 5.7 10*3/uL Normal 4.0-11.0 [facility] Comment on above: Performed By: #### Nicolás RICHARDS, 1987-03, GERMAN TUTOR, LIVR, 86110-6, 82197-3, ENAP, 31968-2, AHP #### [facility] ([id number]) [address] [facility], [address] [place] [address] CREATININEon 11-29-2024 Creatinine [Mass/Vol] 0.82 mg/dL Normal 0.40-1.00 [facility] Comment on above: Result Comment: METH OD TRACEABLE TO IDMS STANDARD Performed By: #### C BCA, 1987-03, GERMAN TUTOR, LIVR, 62837-3, 18510-2, ENAP, 95765-3, AHP #### [facility] ([id number]) [address] [facility], [address] [place] [address] GFR/1.73 sq M.predicted among non-blacks MDRD (S/P/Bld) [Vol rate/Area] 75 mL/min/{1.73_m2} Normal >59 [facility] Comment on above: Result Comment: Reported eGFR is based on the CKD-EPI 2020 equation that does not use a race coefficient. Performed By: #### C BCA, 1987-03, GERMAN TUTOR, LIVR, 55716-5, 52006-0, ENAP, 40615-5, AHP #### [facility] ([id number]) [address] [facility], [address] [place] [address] DNA double strand IgG IF Cri thidia luciliae (S) [Titer]on 11-29-2024 Crithidia Interpretation See Note Normal [facility] Comment on above: Result Comment: NOTE Testing for dsDNA antibody by Crithidia IFA was negative. Test Performed by: [facility] [address], [place] [address] 7Th Grade Social Studies Teacher: Sam Dukes Ph.D.; CLIA# [id number] Performed By: #### C BCA, 1987-03, GERMAN TUTOR, LIVR, 63011-4, 99284-1, ENAP, 97370-9, AHP ####[facility] ([id number])[address], [address], [place] [address] dsDNA Ab by Zully IFA, IgG, S Negative Normal Negative [facility] Comment on above: Performed By: #### C SUSIE, 1987-03, GERMAN TUTOR, LIVR, 45040-5, 63960-6, ENAP, 47151-8, AHP ####[facility] ([id number])[address], [address], [place] [address] GAETANO PANELon 11-29-2024 ANTI-ZAPATA AB IGG <0.2 Normal <1.0 [facility] Comment on above: Performed By: #### C SUSIE, 1987-03, GERMAN TUTOR, LIVR, 11376-0, 25959-9, ENAP, 03512-0, AHP #### [facility] ([id number]) [address], [address] [place] [address] JO1 ANTIBODY <0.2 Normal <1.0 [facility] Comment on above: Performed By: #### C SUSIE, 1987-03, GERMAN TUTOR, LIVR, 66505-1, 95414-7, ENAP, 49196-6, AHP #### [facility] ([id number]) [address], [address] [place] [address] REHAB DIRECTOR ANTIBODY IGG 0.2 AI Normal <1.0 [facility] Comment on above: Performed By: #### C SUSIE, 1987-03, GERMAN TUTOR, LIVR, 89476-0, 57583-9, ENAP, 85821-4, AHP #### [facility] ([id number]) [address], [address] [place] [address] SCL 70 ANTIBODY <0.2 Normal <1.0 [facility] Comment on above: Performed By: #### C SUSIE, 1987-03, GERMAN TUTOR, LIVR, 21365-4, 60196-5, ENAP, 23130-9, AHP #### [facility] ([id number]) [address], [address] [place] [address] SSA ANTIBODY <0.2 Normal <1.0 [facility] Comment on above: Performed By: #### C BCA, 1987-03, GERMAN TUTOR, LIVR, 22779-1, 43930-2, ENAP, 39576-2, AHP #### [facility] ([id number]) [address], [facility] [address] [place] [address] SSB ANTIBODY <0.2 Normal <1.0 [facility] Comment on above: Performed By: #### C BCA, 1987-03, GERMAN TUTOR, LIVR, 85694-7, 40991-6, ENAP, 34003-7, AHP #### [facility] ([id number]) [address], [address] [address] ESR Photometric method (Bld) [Velocity]on 11-29-2024 ESR, ERYTHROCYTE SEDIMENTATION RATE 48 mm/h High 0-30 [facility] Comment on above: Performed By: #### C BCA, 1987-03, GERMAN TUTOR, LIVR, 28452-0, 49419-1, ENAP, 77475-9, AHP #### [facility] ([id number]) [address], [address] [address] LIVER PANELon 11-29-2024 Albumin [Mass/Vol] 4.5 g/dL Normal 3.2-5.3 [facility] Comment on above: Performed By: #### C BCA, 1987-03, GERMAN TUTOR, LIVR, 98891-3, 67135-4, ENAP, 18517-5, AHP #### [facility] ([id number]) [address], [address] [address] ALP [Catalytic activity/Vol] 66 U/L Normal 39-130 [facility] Comment on above: Performed By: #### C BCA, 1987-03, GERMAN TUTOR, LIVR, 83136-4, 77851-3, ENAP, 06326-4, AHP #### [facility] ([id number]) [address], [address] [place] [address] ALT [Catalytic activity/Vol] 14 U/L Normal 0-31 [facility] Comment on above: Performed By: #### C BCA, 1987-03, GERMAN TUTOR, LIVR, 61135-8, 67316-5, ENAP, 28345-1, AHP #### [facility] ([id number]) [address], [address] [place] [address] AST [Catalytic activity/Vol] 26 U/L Normal 0-41 [facility] Comment on above: Performed By: #### C BCA, 1987-03, GERMAN TUTOR, LIVR, 36280-3, 75954-4, ENAP, 74737-2, AHP #### [facility] ([id number]) [address], [address] [place] [address] Bilirubin [Mass/Vol] 0.9 mg/dL Normal 0.3-1.2 [facility] Comment on above: Performed By: #### C BCA, 1987-03, GERMAN TUTOR, LIVR, 43867-2, 37023-8, ENAP, 99588-8, AHP #### [facility] ([id number]) [address], [address] [place] [address] Bilirubin.direct [Mass/Vol] 0.2 mg/dL Normal 0.0-0.4 [facility] Comment on above: Performed By: #### C BCA, 1987-03, GERMAN TUTOR, LIVR, 88608-9, 57264-7, ENAP, 71856-9, AHP #### [facility] ([id number]) [address], [address] [place] [address] Protein [Mass/Vol] 7.4 g/dL Normal 6.0-8.0 [facility] Comment on above: Performed By: #### C BCA, 1987-03, GERMAN TUTOR, LIVR, 03212-6, 09660-7, ENAP, 14357-9, P #### [facility] ([id number]) [address] [facility], [address] [place] [address] M. tuberculosis stim IFN-g p alissa (Bld)on 11-29-2024 Mitogen minus Nil Result 0.00 IU/mL Normal [facility] Nil Result 0.01 IU/mL Normal [facility] Comment on above: Result Comment: NOTE Test Performed by: [facility] [address] [place] [address] 7Th Grade Social Studies Teacher: Sam Dukes Ph.D.; CLIA# [id number] QuantiFERON-Tb Gold Plus Result Indeterminate Abnormal Negative [facility] Comment on above: Result Comment: NOTE Indeterminate due to a low interferon-gamma level in the mitogen (positive control) tube. This may occur due to a low lymphocyte count, reduced lymphocyte activity or inability of the patient's lymphocytes to generate interferon-gamma. The reference range for the 'Mitogen minus Nil Result' is >=0.5 IU/mL. TB1 Ag minus Nil Result 0.01 IU/mL Normal [facility] TB2 Ag minus Nil Result 0.01 IU/mL Normal [facility] Rheumatoid factor Nephelomet ry Qn (S)on 11-29-2024 RHEUMATOID FACTOR <10 Normal <20 [facility] Comment on above: Performed By: #### C BCA, 1987-03, GERMAN TUTOR, LIVR, 27644-1, 39399-0, ENAP, 85335-3, P #### [facility] ([id number]) [address] [facility], [address] [place] [address] MAMM DIAGNOSTIC BILATERAL W CADon 11-04-2024 MAMM DIAGNOSTIC BILATERAL W CAD MAMM DIAGNOSTIC BILATERAL W CAD BEENA EDWARDS JOE 1950 [id number], [id number] EXAM: MAMM DIAGNOSTIC BILATERAL W CAD, US [...] AM 2 d MAMM 1 YR Normal [facility] US BREAST RT LIMITEDon 12-27 -2024 US BREAST RT LIMITED US BREAST RT LIMITE Manjula DIAZ 1950 [id number], [id number] EXAM: MAMM DIAGNOSTIC BILATERAL W CAD, US [...] AM 2 d MAMM 1 YR Normal [facility] XR CHEST 2 VWSon 08-10-2024 XR CHEST 2 VWS XR CHEST 2 VWS CLINICAL INFORMATION: . Chronic obstructive pulmonary disease, unspecified COPD type ([facility]). TECHNIQUE/PROCEDURE: Two view chest. COMPARISON: 01/25/2022 FINDINGS: No tracheal deviation. Cardiac and mediastinal contours normal. No pneumothorax or free air. No pleural effusion or focal consolidation. Emphysema. IMPRESSION: * Emphysema with no superimposed acute cardiopulmonary disease. Finalized by Francesco Lyons MD on 08/10/2024 12:36 PM Normal [facility] P[facility] SED RATE - CRPon 07-19-2024 CRP EXTENDED RANGE <0.34 Normal (0.00 - 3.20) [facility] Comment on above: Order Comment: FACIL ITY: [facility] - [id number] Result Comment: CRP RESULT IS <0.34 MG/L CRP MIN DETECTION = 0.34 MG/L Performed By: #### C BC/2A, MSEP, ANAFX, ACAX3, ESRCRP, TSHFX, VD25, CCP, RHF, URCA #### [facility] [address] [facility] [place], [id number] SED RATE WEST. 33 MM/HR High (0 - 25) [facility] Comment on above: Order Comment: FACIL ITY: [facility] - [id number] Performed By: #### C BC/2A, MSEP, ANAFX, ACAX3, ESRCRP, TSHFX, VD25, CCP, RHF, URCA #### [facility] [address] [facility] [place], [address] XR HAND LEFT (MIN 3 VIEWS)on 06-30-2024 [...] Ashok Pelayo MD 06/30/24 Final result Normal [facility] XR HAND RIGHT (MIN 3 VIEWS)o n [...] Ashok Pelayo MD 06/30/24 Final result Normal [facility] XR WRIST LEFT (MIN 3 VIEWS)o n [...] Ashok Pelayo MD 06/30/24 Final result Normal [facility] XR WRIST RIGHT (MIN 3 VIEWS) on [...] Ashok Pelayo MD 06/30/24 Final result Normal [facility] XR Wrist - left 3 Viewson No acute osseous abnormality. Mild degenerative changes in the 1st CMC joint [facility] RIS CONSOLIDATED EXAMINATION: 3 XRAY VIEWS OF THE [...] degenerative changes in the 1st CMC joint. [facility] CONSOLIDATED Ashok Pelayo MD - 06/30/2024 EXAMINATION: [...] degenerative changes in the 1st CMC joint [facility] XR Wrist - left 3 ViewsOrder ed By: Ashok Pelayo on 06-30-2024 [facility] Work Phone: XR Wrist - left 3 [employer] Radiology Study observation (narrative) [facility] DEXA BONE DENSITY AXIAL SKEL ETONon 06-22-2024 DEXA BONE DENSITY AXIAL SKELETON EXAMINATION: BONE DENSITOMETRY 06/21/2024 10:34 am TECHNIQUE: A bone density dual x-ray absorptiometry (DXA) scan was performed of the lumbar spine and left hip on a [employer] system. COMPARISON: None. HISTORY: ORDERING SYSTEM PROVIDED HISTORY: Osteopenia after menopause Gender: F Age: 73 y/o FINDINGS: LUMBAR SPINE: L1, L3 BMD: 1.224 g/cm2 T-score: 0.4 Z-score: 2.8 LEFT TOTAL HIP: BMD: 0.911 g/cm2 T-score: -0.8 Z-score: 1.4 LEFT FEMORAL NECK: BMD: 0.834 g/cm2 T-score: -1.5 Z-score: 0.8 FRAX 10-YEAR PROBABILITY OF FRACTURE: 10-year fracture risk is performed using the [employer] FRAX calculator based on patient-reported risk factors. [...] Franky Fuentes MD 06/22/24 Final result Normal [facility] JOSE DIGITAL SCREEN SELF REFERRAL W OR WO CAD BILATERALon 01-15-2024 [facility] JOSE DIGITAL SCREEN SELF REFERRAL W OR [...] to the patient regarding the results. The [employer] recommends annual mammograms for women 40 years and older. Interpreted by: Armaan Veronica DO Signed by: Armaan Veronica DO 01/15/24 Final result Normal [facility] SED RATE - CRPon 12-09-2023 CRP EXTENDED RANGE <0.34 Normal (0.00 - 3.20) [facility] Comment on above: Order Comment: 1LAV 1SSTFACILITY: [facility] - [id number] Result Comment: CRP RESULT IS <0.34 MG/L CRP MIN DETECTION = 0.34 MG/L Performed By: #### C BC/2A, MSEP, ANAFX, ACAX3, ESRCRP, TSHFX, VD25, CCP, RHF, URCA #### [facility] [address] [facility] [place], [address] SED RATE WEST. 77 MM/HR High (0 - 25) [facility] Comment on above: Order Comment: 1LAV 1SSTFACILITY: [facility] - [id number] Performed By: #### C BC/2A, MSEP, ANAFX, ACAX3, ESRCRP, TSHFX, VD25, CCP, RHF, URCA #### [facility] [address] [facility] [place], [address] PJ WITH REFLEX GAETANO TESTSon 09-28-2023 PJ by HEp-2 CELLS Negative Normal (NEG - NEG) [facility] Comment on above: Performed By: #### C BC/2A, MSEP, ANAFX, ACAX3, ESRCRP, TSHFX, VD25, CCP, RHF, URCA #### [facility] [facility] [place], [address] PJ TITER 1:40 Normal (<1:40 - 1:40) [facility] Comment on above: Performed By: #### C BC/2A, MSEP, ANAFX, ACAX3, ESRCRP, TSHFX, VD25, CCP, RHF, URCA #### [facility] [address] [facility] [place], [address] GAETANO-6 REFLEXED NO Normal () [facility] Comment on above: Performed By: #### C BC/2A, MSEP, ANAFX, ACAX3, ESRCRP, TSHFX, VD25, CCP, RHF, URCA #### [facility] [address] [facility] [place], [address] CARDIOLIPIN IGG, IGA, IGMon 09-28-2023 CYNDIE, IgA 3.0 U/mL Low (14.0 - 20.0) [facility] Comment on above: Performed By: #### C BC/2A, MSEP, ANAFX, ACAX3, ESRCRP, TSHFX, VD25, CCP, RHF, URCA #### [facility] [address] [facility] [place], [address] CYNDIE, IgG 1.4 U/mL Low (10.0 - 40.0) [facility] Comment on above: Performed By: #### C BC/2A, MSEP, ANAFX, ACAX3, ESRCRP, TSHFX, VD25, CCP, RHF, URCA #### [facility] [address] [facility] [place], [address] CYNDIE, IgM 40.0 U/mL Normal (10.0 - 40.0) [facility] Comment on above: Result Comment: Resu lt between 10.0 - 40.0 U/mL is considered weak positive -recommend retesting the patient after 8 - 12 weeks. Performed By: #### C BC/2A, MSEP, ANAFX, ACAX3, ESRCRP, TSHFX, VD25, CCP, RHF, URCA #### [facility] [address] [facility] [place], [id number] CBC, ALB, ALT, AST, ALK AND CREAon 09-28-2023 Albumin [Mass/Vol] 4.5 g/dL Normal (3.5 - 5.0) [facility] Comment on above: Order Comment: FACIL ITY: [facility] [id number] Performed By: #### C BC/2A, MSEP, ANAFX, ACAX3, ESRCRP, TSHFX, VD25, CCP, RHF, URCA #### [facility] [address] [facility] [place], [id number] ALK PHOS 85 U/L Normal (38 - 126) [facility] Comment on above: Order Comment: FACIL ITY: [facility] [id number] Performed By: #### C BC/2A, MSEP, ANAFX, ACAX3, ESRCRP, TSHFX, VD25, CCP, RHF, URCA #### [facility] [address] [facility] [place], [address] ALT [Catalytic activity/Vol] 10 U/L Normal (1 - 35) [facility] Comment on above: Order Comment: FACIL ITY: [facility] [id number] Performed By: #### C BC/2A, MSEP, ANAFX, ACAX3, ESRCRP, TSHFX, VD25, CCP, RHF, URCA #### [facility] [address] [facility] [place], [address] AST [Catalytic activity/Vol] 28 U/L Normal (15 - 46) [facility] Comment on above: Order Comment: FACIL ITY: [facility] [id number] Performed By: #### C BC/2A, MSEP, ANAFX, ACAX3, ESRCRP, TSHFX, VD25, CCP, RHF, URCA #### [facility] [address] [facility] [place], [id number] Creatinine [Mass/Vol] 0.65 mg/dL Normal (0.52 - 1.04) [facility] Comment on above: Order Comment: FACIL ITY: [facility] [id number] Performed By: #### C BC/2A, MSEP, ANAFX, ACAX3, ESRCRP, TSHFX, VD25, CCP, RHF, URCA #### [facility] [address] [facility] [place], [address] GFR- AMER 108.4 ML/M1.7 Normal (60.0 - 140.1) [facility] Comment on above: Order Comment: FACIL ITY: [facility] [id number] Performed By: #### C BC/2A, MSEP, ANAFX, ACAX3, ESRCRP, TSHFX, VD25, CCP, RHF, URCA #### [facility] [address] [facility] [place], [address] GFR-NON AFRIC-AMER 89.6 ML/M1.7 Normal (60.0 - 115.8) [facility] Comment on above: Order Comment: FACIL ITY: [facility] [id number] Performed By: #### C BC/2A, MSEP, ANAFX, ACAX3, ESRCRP, TSHFX, VD25, CCP, RHF, URCA #### [facility] [address] [facility] [place], [address] Hematocrit (Bld) [Volume fraction] 38.6 % Normal (37.0 - 47.0) [facility] Comment on above: Order Comment: FACIL ITY: [facility] [id number] Performed By: #### C BC/2A, MSEP, ANAFX, ACAX3, ESRCRP, TSHFX, VD25, CCP, RHF, URCA #### [facility] [address] [facility] [place], [id number] Hemoglobin (Bld) [Mass/Vol] 12.7 g/dL Normal (12.0 - 16.0) [facility] Comment on above: Order Comment: FACIL ITY: [facility] [id number] Performed By: #### C BC/2A, MSEP, ANAFX, ACAX3, ESRCRP, TSHFX, VD25, CCP, RHF, URCA #### [facility] [address] [facility] [place], [id number] MCH (RBC) [Entitic mass] 28.9 pg Normal (27.0 - 33.0) [facility] Comment on above: Order Comment: FACIL ITY: [facility] [id number] Performed By: #### C BC/2A, MSEP, ANAFX, ACAX3, ESRCRP, TSHFX, VD25, CCP, RHF, URCA #### [facility] [address] [facility] [place], [address] MCHC (RBC) [Mass/Vol] 32.9 g/dL Normal (30.0 - 37.0) [facility] Comment on above: Order Comment: FACIL ITY: [facility] [id number] Performed By: #### C BC/2A, MSEP, ANAFX, ACAX3, ESRCRP, TSHFX, VD25, CCP, RHF, URCA #### [facility] [address] [facility] [place], [address] MCV (RBC) [Entitic vol] 87.9 fL Normal (81.0 - 99.0) [facility] Comment on above: Order Comment: FACIL ITY: [facility] [id number] Performed By: #### C BC/2A, MSEP, ANAFX, ACAX3, ESRCRP, TSHFX, VD25, CCP, RHF, URCA #### [facility] [address] [facility] [place], [address] PLT 264 x10^3ul Normal (130 - 400) [facility] Comment on above: Order Comment: FACIL ITY: [facility] [id number] Performed By: #### C BC/2A, MSEP, ANAFX, ACAX3, ESRCRP, TSHFX, VD25, CCP, RHF, URCA #### [facility] [address] [facility] [place], [address] RBC 4.39 x10^6ul Normal (4.20 - 5.40) [facility] Comment on above: Order Comment: FACIL ITY: [facility] [id number] Performed By: #### C BC/2A, MSEP, ANAFX, ACAX3, ESRCRP, TSHFX, VD25, CCP, RHF, URCA #### [facility] [address] [facility] [place], [address] WBC 6.46 x10^3ul Normal (3.80 - 10.60) [facility] Comment on above: Order Comment: FACIL ITY: [facility] [id number] Performed By: #### C BC/2A, MSEP, ANAFX, ACAX3, ESRCRP, TSHFX, VD25, CCP, RHF, URCA #### [facility] [address] [facility] [place], [address] RF FACTORon 09-28-2023 RF FACTOR <9 Normal (0 - 12) [facility] Comment on above: Result Comment: RF F ACTOR = LESS THAN 9 IU/ML RF FACTOR MIN. DETECTION = 9 IU/ML. Performed By: #### C BC/2A, MSEP, ANAFX, ACAX3, ESRCRP, TSHFX, VD25, CCP, RHF, URCA #### [facility] [address] [facility] [place], [address] SED RATE - CRPon 09-28-2023 CRP EXTENDED RANGE 0.78 MG/L Normal (0.00 - 3.20) [facility] Comment on above: Performed By: #### C BC/2A, MSEP, ANAFX, ACAX3, ESRCRP, TSHFX, VD25, CCP, RHF, URCA #### [facility] [address] [facility] [place], [address] SED RATE WEST. 78 MM/HR High (0 - 25) [facility] Comment on above: Performed By: #### C BC/2A, MSEP, ANAFX, ACAX3, ESRCRP, TSHFX, VD25, CCP, RHF, URCA #### [facility] [address] [facility] [place], [address] SERUM ELECT(M-PROTIEN)on Albumin [Mass/Vol] 4.8 g/dL Normal (3.5 - 5.0) [facility] Comment on above: Performed By: #### C BC/2A, MSEP, ANAFX, ACAX3, ESRCRP, TSHFX, VD25, CCP, RHF, URCA #### [facility] [address] [facility] [place], [address] Albumin/Globulin [Mass ratio] 1.5 {ratio} Normal (1.2 - 2.2) [facility] Comment on above: Performed By: #### C BC/2A, MSEP, ANAFX, ACAX3, ESRCRP, TSHFX, VD25, CCP, RHF, URCA #### [facility] [address] [facility] [place], [address] ALPHA 1 0.2 G/DL Normal (0.1 - 0.3) [facility] Comment on above: Performed By: #### C BC/2A, MSEP, ANAFX, ACAX3, ESRCRP, TSHFX, VD25, CCP, RHF, URCA #### [facility] [address] [facility] [place], [address] ALPHA 2 0.8 G/DL Normal (0.2 - 1.1) [facility] Comment on above: Performed By: #### C BC/2A, MSEP, ANAFX, ACAX3, ESRCRP, TSHFX, VD25, CCP, RHF, URCA #### [facility] [address] [facility] [place], [address] BETA 0.8 G/DL Normal (0.6 - 1.1) [facility] Comment on above: Performed By: #### C BC/2A, MSEP, ANAFX, ACAX3, ESRCRP, TSHFX, VD25, CCP, RHF, URCA #### [facility] [address] [facility] [place], [address] GAMMA 1.3 G/DL Normal (0.5 - 1.5) [facility] Comment on above: Performed By: #### C BC/2A, MSEP, ANAFX, ACAX3, ESRCRP, TSHFX, VD25, CCP, RHF, URCA #### [facility] [address] [facility] [place], [address] Globulin (S) [Mass/Vol] 3.1 g/dL Normal (2.3 - 3.5) [facility] Comment on above: Performed By: #### C BC/2A, MSEP, ANAFX, ACAX3, ESRCRP, TSHFX, VD25, CCP, RHF, URCA #### [facility] [address] [facility] [place], [address] Protein [Mass/Vol] 7.9 g/dL Normal (6.3 - 8.2) [facility] Comment on above: Performed By: #### C BC/2A, MSEP, ANAFX, ACAX3, ESRCRP, TSHFX, VD25, CCP, RHF, URCA #### [facility] [address] [facility] [place], [address] Protein [Mass/Vol] 0.0 g/dL Normal (0.0 - 0.01) [facility] Comment on above: Result Comment: AN A PPARENT NORMAL SERUM ELECTROPHORETIC PATTERN. Performed By: #### C BC/2A, MSEP, ANAFX, ACAX3, ESRCRP, TSHFX, VD25, CCP, RHF, URCA #### [facility] [address] [facility] [place], [address] TSH WITH REFLEXon 09-28-2023 REFLEX T4, FREE NO Normal () [facility] in Comment on above: Performed By: #### C BC/2A, MSEP, ANAFX, ACAX3, ESRCRP, TSHFX, VD25, CCP, RHF, URCA #### [facility] [address] [facility] [place], [address] TSH Qn 0.842 m[IU]/L Normal (0.470 - 4.680) [facility] Comment on above: Performed By: #### C BC/2A, MSEP, ANAFX, ACAX3, ESRCRP, TSHFX, VD25, CCP, RHF, URCA #### [facility] [address] [facility] [place], [address] URIC ACIDon 09-28-2023 Urate [Mass/Vol] 4.8 mg/dL Normal (2.5 - 6.2) [facility] Comment on above: Performed By: #### C BC/2A, MSEP, ANAFX, ACAX3, ESRCRP, TSHFX, VD25, CCP, RHF, URCA #### [facility] [address] [facility] [place], [address] VITAMIN D, 25 HYDROXYon 11- VITAMIN D, 25 31.7 NG/ML Normal (30.0 - 100.0) [facility] Comment on above: Result Comment: * * * VITAMIN D, 25 HYDROXY GENERAL GUIDELINE * * * DEFICIENCY = < OR = 20.0 NG/ML INSUFFICIENCY = 20.1 - 29.9 NG/ML SUFFICIENCY = 30.0 - 100.0 NG/ML TOXICITY = > 100.1 NG/ML Performed By: #### C BC/2A, MSEP, ANAFX, ACAX3, ESRCRP, TSHFX, VD25, CCP, RHF, URCA #### [facility] [address] [facility] [place], [address] Vital Signs Date Time Vital Sign Value Performing Clinician Facility 07-20-2025 10:40-0400 Body height 157.5 cm Colleen Russell MD Work Phone: [facility] 07-20-2025 10:40-0400 Body mass index (BMI) [Ratio] 17.26 kg/m2 Colleen Russell MD Work Phone: [facility] 07-20-2025 10:40-0400 Body weight 42.82 kg Colleen Russell MD Work Phone: [facility] 07-20-2025 10:40-0400 Diastolic blood pressure 67 mm[Hg] Colleen Russell MD Work Phone: [facility] 07-20-2025 10:40-0400 Heart rate 90 /min oClleen Russell MD Work Phone: [facility] 07-20-2025 10:40-0400 Systolic blood pressure 115 mm[Hg] Colleen Russell MD Work Phone: [facility] 07-13-2025 13:04-0400 Body height 157.5 cm Brenden Caba BILINGUAL LEGAL ASSISTANT-HOTEL CLERK Work Phone: [facility] 07-13-2025 13:04-0400 Body mass index (BMI) [Ratio] 17.01 kg/m2 Brenden Caba BILINGUAL LEGAL ASSISTANT-HOTEL CLERK Work Phone: [facility] 07-13-2025 13:04-0400 Body temperature 97.11 [degF] Brenden Caba BILINGUAL LEGAL ASSISTANT-HOTEL CLERK Work Phone: [facility] 07-13-2025 13:04-0400 Body weight 42.19 kg Brenden Caba BILINGUAL LEGAL ASSISTANT-HOTEL CLERK Work Phone: [facility] 07-13-2025 13:04-0400 Diastolic blood pressure 64 mm[Hg] Brenden Caba BILINGUAL LEGAL ASSISTANT-HOTEL CLERK Work Phone: [facility] 07-13-2025 13:04-0400 Heart rate 100 /min Brenden Caba BILINGUAL LEGAL ASSISTANT-HOTEL CLERK Work Phone: [facility] 07-13-2025 13:04-0400 SaO2% (BldA) [Mass fraction] 94 % Brenden Caba BILINGUAL LEGAL ASSISTANT-HOTEL CLERK Work Phone: [facility] 07-13-2025 13:04-0400 Systolic blood pressure 105 mm[Hg] Brenden Caba BILINGUAL LEGAL ASSISTANT-HOTEL CLERK Work Phone: [facility] 06-22-2025 11:58-0400 Body height 157.5 cm Mariajose Clemente MD MPH Work Phone: [facility] 06-22-2025 11:58-0400 Body mass index (BMI) [Ratio] 17.19 kg/m2 Mariajose Clemente MD MPH Work Phone: [facility] 06-22-2025 11:58-0400 Body weight 42.64 kg Mariajose Clemente MD MPH Work Phone: [facility] 06-22-2025 11:58-0400 Diastolic blood pressure 78 mm[Hg] Mariajose Clemente MD MPH Work Phone: [facility] 06-22-2025 11:58-0400 Heart rate 81 /min Mariajose Clemente MD MPH Work Phone: [facility] 06-22-2025 11:58-0400 Respiratory rate 16 /min Mariajose Clemente MD MPH Work Phone: [facility] 06-22-2025 11:58-0400 Systolic blood pressure 136 mm[Hg] Mariajose Clemente MD MPH Work Phone: [facility] 05-17-2025 10:35-0400 Body mass index (BMI) [Ratio] 16.46 kg/m2 Trice Silva MD Work Phone: [facility] 05-17-2025 10:35-0400 Body weight 40.82 kg Trice Silva MD Work Phone: [facility] 05-17-2025 10:35-0400 Diastolic blood pressure 78 mm[Hg] Trice Silva MD Work Phone: [facility] 05-17-2025 10:35-0400 Heart rate 66 /min Trice Silva MD Work Phone: [facility] 05-17-2025 10:35-0400 Systolic blood pressure 147 mm[Hg] Trice Silva MD Work Phone: [facility] 05-03-2025 06:57-0400 Body height 157.5 cm Mi Dominguez MD Work Phone: [facility] 05-03-2025 06:57-0400 Body mass index (BMI) [Ratio] 15 kg/m2 Mi Dominguez MD Work Phone: [facility] [employer] [facility] 05-03-2025 06:57-0400 Body weight 37.2 kg Mi Dominguez MD Work Phone: [facility] [employer] [facility] 04-25-2025 12:33-0400 Body height 161.3 cm Ofeliarishi Pierce V, BILINGUAL LEGAL ASSISTANT-HOTEL CLERK Work Phone: [facility] [employer] 04-25-2025 12:33-0400 Body mass index (BMI) [Ratio] 15.17 kg/m2 Ofelia Stan Salmeron, BILINGUAL LEGAL ASSISTANT-HOTEL CLERK Work Phone: [facility] [employer] 04-25-2025 12:33-0400 Body weight 39.46 kg Ofelia Grullonffadela Salmeron, BILINGUAL LEGAL ASSISTANT-HOTEL CLERK Work Phone: [facility] [employer] [facility] 04-11-2025 11:55-0400 Body height 161.3 cm Duong Alex DO Work Phone: [facility] 04-11-2025 11:55-0400 Body mass index (BMI) [Ratio] 15.17 kg/m2 Duong Alex DO Work Phone: [facility] [employer] 04-11-2025 11:55-0400 Body weight 39.46 kg Duong Alex DO Work Phone: [facility] [employer] [facility] 04-11-2025 11:55-0400 Diastolic blood pressure 90 mm[Hg] Duong Alex DO Work Phone: [facility] 04-11-2025 11:55-0400 Heart rate 86 /min Duong Alex DO Work Phone: [facility] [employer] [facility] 04-11-2025 11:55-0400 SaO2% (BldA) [Mass fraction] 98 % Duong Alex DO Work Phone: [facility] 04-11-2025 11:55-0400 Systolic blood pressure 160 mm[Hg] Duong Alex DO Work Phone: [facility] 03-06-2025 11:42-0400 Body height 157.5 cm Amramos Clemente MD MPH Work Phone: [facility] 03-06-2025 11:42-0400 Body mass index (BMI) [Ratio] 17.01 kg/m2 Amala Ambati MPH Work Phone: [facility] 03-06-2025 11:42-0400 Body weight 42.19 kg Amala Chyna CARDENAS MPH Work Phone: [facility] 03-06-2025 11:42-0400 Diastolic blood pressure 82 mm[Hg] Amala Ambati MD MPH Work Phone: [facility] 03-06-2025 11:42-0400 Heart rate 83 /min Amala Ambati MD MPH Work Phone: [facility] 03-06-2025 11:42-0400 Respiratory rate 14 /min Amala Ambmiguelina MD MPH Work Phone: [facility] 03-06-2025 11:42-0400 Systolic blood pressure 132 mm[Hg] Amala Chyna CARDENAS MPH Work Phone: [facility] 02-21-2025 10:31-0400 Body height 157.5 cm Brenden Lent BILINGUAL LEGAL ASSISTANT-HOTEL CLERK Work Phone: [facility] 02-21-2025 10:31-0400 Body mass index (BMI) [Ratio] 16.64 kg/m2 Brenden Truongt BILINGUAL LEGAL ASSISTANT-HOTEL CLERK Work Phone: [facility] 02-21-2025 10:31-0400 Body weight 41.28 kg Brenden Alexit BILINGUAL LEGAL ASSISTANT-HOTEL CLERK Work Phone: [facility] 02-21-2025 10:31-0400 Diastolic blood pressure 78 mm[Hg] Brenden Lent BILINGUAL LEGAL ASSISTANT-HOTEL CLERK Work Phone: [facility] 02-21-2025 10:31-0400 Heart rate 89 /min Brenden Caba BILINGUAL LEGAL ASSISTANT-HOTEL CLERK [facility] 02-21-2025 10:31-0400 SaO2% (BldA) [Mass fraction] 96 % Brenden Caba BILINGUAL LEGAL ASSISTANT-HOTEL CLERK [facility] 02-21-2025 10:31-0400 Systolic blood pressure 132 mm[Hg] Brenden Caba BILINGUAL LEGAL ASSISTANT-HOTEL CLERK Work Phone: [facility] [employer] 02-13-2025 13:31-0400 Diastolic blood pressure 72 mm[Hg] Isidro Dankert DO [facility] 02-13-2025 13:31-0400 Heart rate 92 /min Isidro Dankert DO [facility] 02-13-2025 13:31-0400 Respiratory rate 16 /min Isidro Dankert DO [facility] 02-13-2025 13:31-0400 Systolic blood pressure 166 mm[Hg] Isidro Dankert DO [facility] [place] [facility] 01-30-2025 14:38-0400 Diastolic blood pressure 85 mm[Hg] Isidro Dankert DO [facility] [place] [facility] 01-30-2025 14:38-0400 Heart rate 80 /min Isidro Dankert DO [facility] 01-30-2025 14:38-0400 Respiratory rate 16 /min Isidro Dankert DO [facility] [place] [facility] 01-30-2025 14:38-0400 Systolic blood pressure 175 mm[Hg] Isidro [facility]ankert DO [facility] 01-30-2025 14:02-0400 SaO2% (BldA) [Mass fraction] 98 % Isidro Dankert DO Work Phone: [facility] 01-26-2025 10:31-0400 Body height 157.5 cm Trice Silva MD Work Phone: [facility] 01-26-2025 10:31-0400 Body mass index (BMI) [Ratio] 17.56 kg/m2 Trice Silva MD Work Phone: [facility] 01-26-2025 10:31-0400 Body weight 43.55 kg Trice Silva MD Work Phone: [facility] 01-23-2025 10:01-0400 Body height 157.5 cm Yusra Hamlin MD Work Phone: [facility] 01-23-2025 10:01-0400 Body mass index (BMI) [Ratio] 17.37 kg/m2 Yusra Hamlin MD Work Phone: [facility] 01-23-2025 10:01-0400 Body weight 43.09 kg Yusra Hamlin MD Work Phone: [facility] 01-23-2025 10:01-0400 Diastolic blood pressure 84 mm[Hg] Yusra Hamlin MD Work Phone: [facility] 01-23-2025 10:01-0400 Heart rate 96 /min Yusra Hamlin MD Work Phone: [facility] 01-23-2025 10:01-0400 Systolic blood pressure 133 mm[Hg] Yusra Hamlin MD Work Phone: [facility] 12-06-2024 13:15-0500 Body height 157.5 cm CIARRA Hernandez Work Phone: [facility] 12-06-2024 13:15-0500 Body mass index (BMI) [Ratio] 18.58 kg/m2 CIARRA Hernandez Work Phone: [facility] 12-06-2024 13:15-0500 Body weight 46.1 kg Ofelia Stan Salmeron, BILINGUAL LEGAL ASSISTANT-HOTEL CLERK Work Phone: [facility] 12-06-2024 11:48-0500 Body height 157.5 cm Mariajose Clemente MD MPH Work Phone: [facility] 12-06-2024 11:48-0500 Body mass index (BMI) [Ratio] 18.58 kg/m2 Mariajose Clemente MD MPH Work Phone: [facility] 12-06-2024 11:48-0500 Body weight 46.09 kg Mariajose Clemente MD MPH Work Phone: [facility] 12-06-2024 11:48-0500 Diastolic blood pressure 82 mm[Hg] Mariajose Clemente MD MPH Work Phone: [facility] 12-06-2024 11:48-0500 Heart rate 97 /min Mariajose Clemente MD MPH Work Phone: [facility] 12-06-2024 11:48-0500 Respiratory rate 14 /min Mariajose Clemente MD MPH Work Phone: [facility] 12-06-2024 11:48-0500 Systolic blood pressure 132 mm[Hg] Mariajose Clemente MD MPH Work Phone: [facility] Encounters Encounter Date Encounter Type Care Provider Facility Start: 07-20-2025 End: 07-20-2025 Telephone encounter [facility] Work Phone: [facility] Start: 07-20-2025 End: 07-20-2025 Office outpatient visit 25 minutes Colleen Russell MD Work Phone: [facility] Comment on above: Esophageal dysphagia (Primary Dx); 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) Start: 07-13-2025 End: 07-13-2025 ambulatory [facility] Start: 07-04-2025 End: 07-05-2025 Telephone encounter Trice Silva MD Work Phone: [facility], [facility] Start: 07-03-2025 End: 07-03-2025 Orders Only Ines Uribe PA-C Work Phone: [facility] Start: 06-30-2025 End: 07-03-2025 Telephone encounter Beena Gaytan [facility] Comment on above: Med Refill Parkinson's disease ([facility]) Start: 06-29-2025 End: 07-04-2025 Telephone encounter Aiden Jones [facility], [facility] Start: 06-28-2025 End: 06-28-2025 ambulatory [facility] Start: 06-27-2025 End: 06-27-2025 Refill Cee Tolentino [facility] Comment on above: Wheezing Start: 06-22-2025 End: 06-22-2025 Office outpatient visit 25 minutes Mariajose Clemente MD MPH Work Phone: [facility], [facility] Comment on above: Inflammatory polyart hritis ([facility]) (Primary Dx); Seronegative rheumatoid arthritis ([facility] [facility] Primary osteoarthritis involving multiple joints; Chronic bilateral low back pain without sciatica; Medication monitoring encounter; Neck pain; Muscle tension pain Start: 06-22-2025 End: 06-22-2025 ambulatory [facility] Start: 06-19-2025 End: 06-20-[address] [facility], A Department of [facility] Comment on above: Parkinson's disease ([facility]) Start: 06-08-2025 End: 06-08-2025 [facility] Start: 05-31-2025 End: 05-31-2025 Telephone encounter Padmaja Lindsay [facility], A Department of [facility] Comment on above: Physical Therapy / S peech Therapy Start: 05-25-2025 ambulatory [facility] Start: 05-23-2025 [facility] Start: 05-22-2025 End: 05-22-2025 Refill Colleen Russell MD Work Phone: [facility] Start: 05-17-2025 End: 05-17-2025 ambulatory [facility] Start: 05-17-2025 End: 05-17-2025 Office outpatient visit 40 minutes Trice Silva MD Work Phone: [facility], A Department of [facility] Comment on above: Parkinson's disease with dyskinesia and fluctuating manifestations ([facility]) (Primary Dx); Dysphagia, unspecified type Start: 05-10-2025 End: 05-10-2025 Orders Only [facility] Start: 05-09-2025 End: 05-09-2025 Telephone encounter Stephenie Negro RN [facility] Comment on above: Care Navigation Start: 05-05-2025 End: 05-05-2025 Telephone encounter Janell Mell Rafael Gonzalez Work Phone: [facility] Start: 05-03-2025 End: 05-03-2025 Patient encounter procedure Mi Dominguez MD Work Phone: [facility] Comment on above: Health care maintena nce (Primary Dx); Iron deficiency anemia, unspecified iron deficiency anemia type; Weight loss; Decreased appetite; Parkinson's disease ([facility]); Inflammatory polyarthritis ([facility]); Primary hypertension; Chronic heart failure with preserved ejection fraction ([facility]); Insomnia, unspecified type; Hyperbilirubinemia; Elevated serum creatinine Start: 05-03-2025 End: 05-03-2025 Patient encounter status Mi Dominguez MD Work Phone: [facility] Work Phone: Start: 05-03-2025 End: 05-05-2025 Orders Only Annalise Rodriguez [facility] Comment on above: Dysuria (Primary Dx) ; Frequency of urination call back ; Medical Concern Start: 04-25-2025 End: 04-25-2025 Office outpatient visit 15 minutes Ofelia Pierce BILINGUAL LEGAL ASSISTANT-HOTEL CLERK Work Phone: [facility] Comment on above: Chronic pain syndrom e (Primary Dx); Cervical radiculopathy; Neck pain, chronic; Chronic bilateral low back pain without sciatica Start: 04-25-2025 End: 04-25-2025 ambulatory BRENDEN Zuñiga [facility] Start: 04-25-2025 ambulatory MI DOMINGUEZ [facility] Start: 04-25-2025 Encounter for genera l adult medical examination without abnormal findings [facility] Start: 04-17-2025 End: 04-17-2025 Emergency department patient visit HANNAH MCBRIDE [facility] Start: 04-17-2025 End: 04-17-2025 Orders Only Mi Dominguez MD Work Phone: [facility] Comment on above: Health care maintena nce (Primary Dx) Start: 04-17-2025 End: 04-17-2025 Patient encounter status Mi Dominguez MD Work Phone: [facility] Start: 04-14-2025 End: 04-14-2025 Orders Only Mi Dominguez MD Work Phone: [facility] Comment on above: Health care maintena nce (Primary Dx) Start: 04-14-2025 End: 04-14-2025 Patient encounter status Mi Dominguez MD Work Phone: [facility] Start: 04-11-2025 End: 04-11-2025 ambulatory [facility] Start: 04-11-2025 End: 04-11-2025 Office outpatient visit 25 minutes [facility] DO Work Phone: [facility] Comment on above: Chronic heart failur e with preserved ejection fraction (CMS- HCC) (Primary Dx); Mixed hyperlipidemia; Nonrheumatic mitral valve regurgitation Start: 03-20-2025 End: 03-20-2025 ambulatory [facility] Start: 03-17-2025 End: 03-17-2025 Telephone encounter Trice Silva MD Work Phone: [facility], A Department of [facility] Start: 03-16-2025 End: 03-16-2025 Telephone encounter Any Yun RN [facility] Comment on above: Appeal for Echo Pri[employer] r Auth Start: 03-10-2025 End: 03-13-2025 Refill Brenden Rosales BILINGUAL LEGAL ASSISTANT-HOTEL CLERK Work Phone: [facility] Comment on above: Mixed hyperlipidemia Start: 03-07-2025 End: 03-07-2025 Orders Only Trice Silva MD Work Phone: [facility], A Department of [facility] Comment on above: Parkinson's disease with dyskinesia and fluctuating manifestations ([facility]) Start: 03-06-2025 End: 03-06-2025 Office outpatient visit 25 minutes Mariajose Clemente MD MPH Work Phone: [facility], A Department of [facility] Comment on above: Inflammatory polyart hritis ([facility]) (Primary Dx); Seronegative rheumatoid arthritis ([facility]); Medication monitoring encounter; Neck pain Start: 03-06-2025 End: 03-06-2025 [facility] Start: 02-28-2025 End: 03-02-2025 Telephone encounter Trice Silva MD Work Phone: [facility], A Department of [facility] Start: 02-27-2025 End: 02-27-2025 ambulatory [place] [facility] Start: 02-22-2025 End: 02-22-2025 Orders Only Cee Tolentino [facility] Comment on above: Encounter for screen ing mammogram for malignant neoplasm of breast (Primary Dx) Start: 02-21-2025 End: 02-21-2025 ambulatory [facility] Start: 02-21-2025 End: 02-21-2025 Patient encounter status Brenden Caba BILINGUAL LEGAL ASSISTANT-HOTEL CLERK Work Phone: [facility] Start: 02-21-2025 End: 02-21-2025 Periodic preventive med est patient 65yrs& older Brenden Zuñiga Rosales BILINGUAL LEGAL ASSISTANT-HOTEL CLERK Work Phone: [facility] Comment on above: Health care maintena nce (Primary Dx); Primary hypertension; Chronic heart failure with preserved ejection fraction ([facility]); Chronic obstructive pulmonary disease, unspecified COPD type ([facility]); Parkinson's disease ([facility]); Mixed hyperlipidemia; Complication associated with silicone gel-filled breast implant Start: 02-13-2025 End: 02-13-2025 Patient encounter procedure Isidro Woodall DO Work Phone: [facility] Comment on above: Cervical radiculopat hy (Primary Dx) Start: 02-13-2025 End: 02-13-2025 ambulatory BRENDEN L [facility] Start: 02-09-2025 ambulatory [facility]ENDEN Zuñ[facility] Start: 02-02-2025 End: 02-02-2025 ambulatory BRENDEN L [facility] Start: 02-02-2025 Encounter for genera l adult medical examination without abnormal findings [facility] Start: 01-30-2025 End: 01-30-2025 Patient encounter procedure Isidro Woodall DO Work Phone: [facility] [place] [facility] Comment on above: Cervical radiculopat hy (Primary Dx) Start: 01-30-2025 End: 01-30-2025 ambulatory [place] Yogesh [facility] Start: 01-27-2025 End: 01-27-2025 Telephone encounter Dianna Maxwell [facility], A Department of [facility] Start: 01-26-2025 End: 01-26-2025 Office outpatient visit 15 minutes Trice Silva MD Work Phone: [facility], A Department of [facility] Comment on above: Parkinson's disease with dyskinesia and fluctuating manifestations (CMS-HCC) (Primary Dx); Parkinson's disease (CMS-HCC); Insomnia due to medical condition Start: 01-26-2025 End: 01-26-2025 ambulatory [facility] Start: 01-24-2025 End: 01-24-2025 Telephone encounter Radha Urrutia CMA [facility] Start: 01-23-2025 End: 01-26-2025 Refill Trice Silva MD Work Phone: [facility] [place] [facility] Comment on above: Insomnia due to medi angely condition Start: 01-23-2025 End: 01-24-2025 Telephone encounter Rita Moya [facility] Start: 01-23-2025 End: 01-23-2025 Office outpatient new 45 minutes Yusra Hamlin MD Work Phone: [facility] Comment on above: Cervical spinal sten osis (Primary Dx); Cervical spondylosis; Neck pain Start: 01-23-2025 End: 01-23-2025 ambulatory YUSRA HAMLIN [facility] Start: 12-29-2024 End: 12-29-2024 Orders [address] Trice Decker [facility] Comment on above: Neck pain (Primary D x) Start: 12-28-2024 End: 12-28-2024 Orders Only [facility] Comment on above: Cervical radiculopat hy (Primary Dx) Restless leg syndrom e Start: 12-27-2024 End: 12-27-2024 Orders Only Bay Castillo [facility] Comment on above: Chronic pain syndrom e (Primary Dx); Neck pain, chronic; Cervical radiculopathy Start: 12-23-2024 End: 12-23-2024 ambulatory [facility] Start: 12-23-2024 End: 12-26-2024 Telephone encounter Sury España [facility] Start: 12-15-2024 End: 12-16-2024 Refill Evette Okeefe MD Work Phone: [facility] [place] [facility] Comment on above: Restless leg syndrom e Start: 12-08-2024 End: 12-08-2024 Orders Only Bay Castillo Rishi [facility] Comment on above: Chronic pain syndrom e (Primary Dx); Neck pain, chronic; Cervical radiculopathy Start: 12-08-2024 End: 12-09-2024 Refill Trice Silva MD Work Phone: [facility] [place] [facility] Comment on above: Insomnia due to medi angely condition Start: 12-06-2024 End: 12-06-2024 ambulatory OFELIARishi PIERCE V [facility] Start: 12-06-2024 End: 12-06-2024 Office outpatient new 30 minutes Ofelianayana Pierce BILINGUAL LEGAL ASSISTANT-HOTEL CLERK Work Phone: [facility] [place] [facility] Comment on above: Cervical radiculopat hy (Primary Dx); Chronic pain syndrome; Neck pain, chronic Start: 12-06-2024 End: 12-06-2024 ambulatory [facility] Start: 12-06-2024 End: 12-06-2024 Office outpatient visit 40 minutes Mariajose Celmente MD MPH Work Phone: [facility] Comment on above: Seronegative rheumat oid arthritis ([facility]) (Primary Dx); Neck pain; Muscle tension pain; Inflammatory polyarthritis ([facility]); Anti-cardiolipin antibody positive; Raynaud disease without gangrene; Primary osteoarthritis involving multiple joints; Fibromyalgia Start: 12-06-2024 End: 12-06-2024 ambulatory [facility] Start: 11-30-2024 End: 12-01-2024 Nohemi Silva MD Work Phone: [facility] Comment on above: Parkinson's disease ([facility]); Restless leg syndrome Start: 11-29-2024 End: 11-29-2024 ambulatory [facility] Start: 11-20-2024 End: 11-22-2024 Nohemi Stubbs MD Work Phone: [facility] Comment on above: Parkinson's disease ([facility]) Start: 11-04-2024 ambulatory [facility] Start: 11-04-2024 End: 11-04-2024 [facility] Start: 10-20-2024 End: 10-20-2024 ambulatory [facility] Start: 10-04-2024 End: 10-04-2024 ambulatory DUONG MENENDEZ [facility] Start: 09-29-2024 End: 09-29-2024 ambulatory [facility]ENDEN Zuñ[facility] Start: 08-24-2024 End: 08-24-2024 [facility] Start: 08-09-2024 End: 08-09-2024 ambulatory BRENDEN L [facility] Start: 08-09-2024 End: 08-09-2024 ambulatory BRENDEN L [facility] Start: 06-28-2024 End: 06-30-2024 Subsequent hospital visit by physician Gavin Pineda Rm 1 [facility] Radiology Comment on above: Bilateral hand pain Start: 06-28-2024 End: 06-30-2024 ambulatory JOE ELLEJoy [facility] Start: 06-21-2024 End: 06-23-2024 ambulatory MI Tovar [facility] Start: 01-13-2024 End: 01-15-2024 ambulatory [facility] Procedures Date Procedure Procedure Detail Performing Clinician Start: 07-13-2025 Adult depression scr eening assessment Brenden Caba BILINGUAL LEGAL ASSISTANT-HOTEL CLERK Work Phone: Start: 05-17-2025 Adult depression scr eening assessment Trice Silva MD Work Phone: Start: 05-03-2025 Ecg routine ecg w/le ast 12 lds w/i&r Mi Dominguez MD Work Phone: Start: 01-26-2025 Adult depression scr eening assessment Trice Silva MD Work Phone: Start: 12-06-2024 JOINT ASPIRATION/INJECTION Ofelia Pierce BILINGUAL LEGAL ASSISTANT-HOTEL CLERK Work Phone: Start: 11-29-2024 Cyclic citrullinated peptide antibody BRENDEN ALEXITisha Comment on above: Result Comment: Interpretation-------- <3 Negative >=3 Positive Performed By: #### C BCA, 1987-5, GERMAN TUTOR, LIVR, 78655-3, 77237-9, ENAP, 85204-6, AHP #### [facility] ([id number]) [address], [address] [place] [address] Start: 11-04-2024 Mammography Jack givens MD Work Phone: Start: 10-04-2024 Follow-up visit Follow-up DUONG MENENDEZ Start: 08-09-2024 Follow-up visit Follow-up CHARISSA CABA Start: 08-09-2024 Adult depression scr eening assessment Jack Stubbs MD Work Phone: Start: 06-28-2024 Radex wrist complete minimum 3 views Joe Johnson DO Work Phone: Start: 09-28-2023 Cyclic citrullinated peptide antibody Comment on above: Performed By: #### C BC/2A, MSEP, ANAFX, ACAX3, ESRCRP, TSHFX, VD25, CCP, RHF, URCA #### [facility] [address] [facility] [place], [address] Start: 10-29-2015 Colonoscopy Jack givens MD Work Phone: Plan of Treatment Date Care Activity Detail Author Start: 05-11-2035 DTaP,Tdap and Td Vaccines (4 - Td or Tdap) DTaP,Tdap and Td Vaccines (4 - Td or Tdap) [facility] Start: 07-25-2031 DTaP,Tdap and Td Vaccines (3 - Td or Tdap) DTaP,Tdap and Td Vaccines (3 - Td or Tdap) [facility] Start: 07-25-2031 DTaP/Tdap/Td vaccine (3 - Td or Tdap) DTaP/Tdap/Td vaccine (3 - Td or Tdap) [facility] Start: 07-20-2026 Adult BMI Screening Adult [facility] Screening [facility] Start: 07-20-2026 Tobacco Screening Tobacco Screening [facility] Start: 07-13-2026 Adult BMI Screening Adult BMI Screening [facility] Start: 07-13-2026 Depression Screening Depression Screening [facility] Start: 07-13-2026 Tobacco Screening Tobacco Screening [facility] Start: 06-22-2026 Adult BMI Screening Adult BMI Screening [facility] Start: 06-22-2026 Tobacco Screening Tobacco Screening [facility] Start: 05-17-2026 Adult BMI Screening Adult BMI Screening [facility] Start: 05-17-2026 Depression Screening Depression Screening [facility] Start: 05-17-2026 Tobacco Screening Tobacco Screening [facility] Start: 05-03-2026 Adult BMI Screening Adult BMI Screening [facility] Start: 04-25-2026 Adult BMI Screening Adult BMI Screening [facility] Start: 04-25-2026 Tobacco Screening Tobacco Screening [facility] Start: 04-17-2026 Tobacco Screening Tobacco Screening [facility] Start: 04-11-2026 Adult BMI Screening Adult BMI Screening [facility] Start: 03-06-2026 Adult BMI Screening Adult BMI Screening [facility] Start: 03-06-2026 Tobacco Screening Tobacco Screening [facility] Start: 02-21-2026 Adult BMI Follow Up Plan Adult BMI Follow Up Plan [facility] Start: 02-21-2026 Adult BMI Screening Adult BMI Screening [facility] Start: 02-21-2026 Tobacco Screening Tobacco Screening [facility] Start: 01-26-2026 Adult BMI Follow Up Plan Adult BMI Follow Up Plan [facility] Start: 01-26-2026 Adult BMI Screening Adult BMI Screening [facility] Start: 01-26-2026 Depression Screening Depression Screening [facility] Start: 01-26-2026 Tobacco Screening Tobacco Screening [facility] Start: 01-23-2026 Adult BMI Screening Adult [facility] Screening [facility] Start: 01-23-2026 Tobacco Screening Tobacco Screening [facility] Start: 01-12-2026 Screening for malignant neoplasm of breast Breast cancer screen [facility] Start: 12-23-2025 Adult BMI Screening Adult BMI Screening [facility] Start: 12-06-2025 Adult BMI Screening Adult BMI Screening [facility] Start: 12-06-2025 Tobacco Screening Tobacco Screening [facility] Start: 11-21-2025 End: 11-21-2025 Patient encounter procedure 11/21/2025 12:30 PM EST Appointment Jamar Roman Powre [place] [facility] [address] [place] [address] Jamar Roman Power [place] [facility] Start: 11-14-2025 End: 11-14-2025 Patient encounter procedure 11/14/2025 12:20 PM EST Office Visit [facility] [address] [place] [address] Ofelia Pierce V, BILINGUAL LEGAL ASSISTANT-HOTEL CLERK [address] [place] [address] [facility] Start: 11-04-2025 Adult BMI Screening Adult BMI Screening [facility] Start: 11-04-2025 Screening for malignant neoplasm of breast Mammogram [facility] Start: 10-29-2025 Screening for malignant neoplasm of colon Colonoscopy [facility] Start: 10-20-2025 Tobacco Screening Tobacco Screening [facility] Start: 10-13-2025 End: 10-13-2025 Patient encounter procedure 10/13/2025 3:15 PM EST Off ice Visit [facility], A Department of [address] [place] [address] Ines Uribe PA-C [address] [place] [address], [address] [place] [address] [facility], A Department of [facility] Start: 10-13-2025 End: 10-13-2025 Patient encounter procedure 10/13/2025 11:45 AM EST Office Visit [facility] [address] [place] [address] [address] [place] [address] Duong Menendez, [address] [facility], [address] [place] [address] [facility] Start: 09-26-2025 End: 09-26-2025 Patient encounter procedure 09/26/2025 1:30 PM EST Off ice Visit [facility] A Department of [address] [place] [address] Mariajose Clemente MD MPH [address] [place] [phone] [facility] Department of [facility] Start: 08-31-2025 End: 08-31-2025 Patient encounter procedure 08/31/2025 1:45 PM EDT [facility] [address] [place] [phone] Jamar Roman Minturn [place] - [facility] Start: 08-23-2025 End: 08-23-2025 Patient encounter procedure 08/23/2025 1:30 PM EDT Off ice Visit [facility] [address] [facility] [address] [place] [phone] Brenden Caba, BILINGUAL LEGAL ASSISTANT-HOTEL CLERK [address] [facility] [place] [address] [facility] Start: 08-22-2025 End: 08-22-2025 Patient encounter procedure 08/22/2025 2:30 PM EDT Off ice Visit [facility] [address] [facility] [address] [place] [phone] Isidro Woodall, DO [address] [facility] [address] [place] [address] [facility] Start: 08-21-2025 End: 08-21-2025 Patient encounter procedure 08/21/2025 2:30 PM EDT Appointment [facility] [address] [place] [address] [facility] Start: 08-09-2025 Depression Screening Depression Screening [facility] Start: 08-09-2025 End: 08-09-2025 Admission to same day surgery center 08/09/2025 12:00 PM EDT - 08/09/2025 12:30 PM EDT Surgery [facility] [address] [place] [address] Colleen Russell MD [address] [place] [address], [address] [place] [address] ESOPHAGOGASTRODUODENOSCOPY DIAGNOSTIC [91060 (CPT )] [facility] Comment on above: ESOPHAGOGASTRODUODENOSCOPY DIAGNOSTIC [4 3235 (CPT )] Start: 08-09-2025 End: 08-09-2025 Esophagogastroduodenoscopy transoral diagnostic ESOPHAGOGASTRODUODENOSCOPY DIAGNOSTIC Esophageal dysphagia (R13.19) 08/09/2025 12:00 PM EDT [facility] Start: 08-09-2025 Subsequent hospital visit by physician 08/09/2025 12:00 PM EDT Hospital Encounter [facility] [address] [place] [address] Colleen Russell MD [address] [facility], [address] [place] [address] [facility] Start: 08-07-2025 End: 08-07-2025 Patient encounter procedure [facility] Start: 08-03-2025 End: 08-03-2025 Patient encounter procedure 08/03/2025 9:30 AM EDT Procedure visit [facility] On [address] [address] [facility] On [facility] Start: 08-01-2025 End: 08-01-2025 Patient encounter procedure 08/01/2025 2:00 PM EDT Off ice Visit [facility], A Department of [address] [place] [address] Trice Silva MD [address] [place] [address], [facility] [address] [place] [address] [facility], A Department of [facility] Start: 07-20-2025 End: 07-20-2025 Patient encounter procedure 07/20/2025 10:45 AM EDT Office Visit [facility], A Department of [address] [address] Colleen Russell MD [address] [place] [address], [address] [place] [address] [facility] Department of [facility] Start: 07-10-2025 Influenza vaccination Influenza Vaccine [facility] Start: 06-29-2025 Adult BMI Follow Up Plan Adult BMI Follow Up Plan [facility] Start: 06-29-2025 End: 06-29-2026 RF Spine epidural space Views W contrast IT Fluoroscopy AMB cervical epidural Imaging Routine Cervical radiculopathy Expected: 06/29/2025, Expires: 06/29/2026 [facility] Work Phone: Comment on above: Expected: 06/29/2025, Expires: Start: 06-28-2025 End: 06-28-2025 Patient encounter procedure 06/28/2025 1:00 PM EDT Appointment [facility] - Radiology [address] [place] [phone] Trice Silva MD [facility] [address] [place] [address] [facility] - Radiology Start: 06-22-2025 End: 06-22-2026 XR Lumbar spine [address] [facility] Work Phone: Comment on above: Expected: 06/22/2025, Expires: Start: 06-22-2025 End: 06-22-2025 Patient encounter procedure 06/22/2025 12:00 PM EDT Office Visit [facility] Rheumatology, A Department of [address] [phone] Mariajose Clemente MD MPH [address] [place] [phone] [facility] Rhe[facility]ology, A Department of [facility] Start: 06-20-2025 End: 06-20-2025 Patient encounter procedure 06/20/2025 1:00 PM EDT Appointment [facility] - Total Rehab [address] [phone] Parkinson's disease with dyskinesia and fluctuating manifestations ([facility]) [facility] Comment on above: Parkinson's disease with dyskinesia and fluctuating manifestations ([facility]) Start: 06-06-2025 End: 06-06-2025 Patient encounter procedure 06/06/2025 11:45 AM EDT [facility] Department of [address] [phone] Mariajose Clemente MD MPH [address] [place] [phone] [facility], A Department of [facility] Start: 05-17-2025 End: 05-17-2026 RF videography Hypopharynx and Esophagus Views Fluoroscopy swallow motility function Imaging Routine Dysphagia, unspecified type Expected: 05/17/2025, Expires: 05/17/2026 [facility] Work Phone: Comment on above: Expected: 05/17/2025, Expires: Start: 05-17-2025 End: 05-17-2025 Patient encounter procedure [facility], A Department of [facility] Start: 05-03-2025 End: 05-03-2025 Patient encounter procedure [facility] Comment on above: Health care maintenance Start: 04-25-2025 End: 04-25-2025 Patient encounter procedure 04/25/2025 12:20 PM EDT Office Visit [facility] [address] [place] [address] Ofelia Pierce V, BILINGUAL LEGAL ASSISTANT-HOTEL CLERK [address] [place] [address] [facility] Start: 04-25-2025 End: 04-25-2025 Patient encounter procedure [facility] Start: 04-25-2025 End: 04-25-2025 ambulatory 04/25/2025 10:00 AM EDT Lab [facility] [address] [place] [address] [facility] Start: 04-17-2025 End: 04-17-2026 CT Icaria heart without contrast including scoring CT Icaria heart without contrast including scoring Imaging STAT Health care maintenance Expected: 04/17/2025, Expires: 04/17/2026 [facility] Work Phone: Comment on above: Expected: 04/17/2025, Expires: Start: 04-14-2025 End: 04-14-2026 Dexa Icaria scan central skeletal Dexa Icaria scan central skeletal Imaging STAT Health care maintenance Expected: 04/14/2025, Expires: 04/14/2026 [facility] Comment on above: Expected: 04/14/2025, Expires: Start: 04-14-2025 End: 04-14-2026 MR Icaria Body MR Icaria Body Imaging STAT Health care maintenance Expected: 04/14/2025, Expires: 04/14/2026 [facility] Comment on above: Expected: 04/14/2025, Expires: Start: 04-14-2025 End: 04-14-2026 MR Icaria cardiac MR Icaria cardiac Imaging STAT Health care maintenance Expected: 04/14/2025, Expires: 04/14/2026 [facility] Comment on above: Expected: 04/14/2025, Expires: Start: 04-14-2025 End: 04-14-2026 MR Icaria Neuro MR Icaria Neuro Imaging STAT Health care maintenance Expected: 04/14/2025, Expires: 04/14/2026 [facility] Comment on above: Expected: 04/14/2025, Expires: Start: 04-11-2025 End: 04-11-2025 Patient encounter procedure 04/11/2025 11:45 AM EDT Office Visit [facility] [address] [place] [address] [address] [place] [address] Duong Menendez, [address] [facility] [place] [address] [facility] Start: 03-20-2025 End: 03-20-2025 Patient encounter procedure 03/20/2025 11:00 AM EDT Appointment [facility] - CardioVascular [address] [place] [address] [facility] Start: 03-06-2025 [...] procedure 02/21/2025 10:00 AM EDT Office Visit [facility] [address] [place] [address] Brenden Caba, BILINGUAL LEGAL ASSISTANT-HOTEL CLERK [address] [place] [address], [address] [place] [address] [facility] Start: 02-13-2025 End: 02-13-2025 Patient encounter procedure [facility] Start: 02-09-2025 End: 02-09-2025 Patient encounter procedure 02/09/2025 11:30 AM EDT Appointment [facility] - Dexa Scan Imaging [facility] [place] [address] [facility] - [facility]a Scan Imaging Start: 01-30-2025 End: 01-30-2025 Patient encounter procedure [facility] Start: 01-25-2025 End: 01-25-2025 Patient encounter procedure [facility] Start: 01-23-2025 End: 01-23-2025 Patient encounter procedure 01/23/2025 10:30 AM EDT Office Visit [facility] [address] [place] [phone] Yusra Hamlin MD [address] [place] [address] [facility] Start: 12-29-2024 End: 12-29-2025 [...] encounter procedure 12/23/2024 8:00 PM EST Appointment [facility] - MRI [address] [place] [address] [facility] Start: 12-08-2024 End: 12-08-2025 MR Cervical spine WO contrast MR cervical spine withou t contrast Imaging Routine Chronic pain syndrome Neck pain, chronic Cervical radiculopathy Expected: 12/08/2024, Expires: 12/08/2025 [facility] Work Phone: Comment on above: Expected: 12/08/2024, Expires: Start: 12-06-2024 End: 12-06-2025 XR Cervical spine Views [facility] Work Phone: Comment on above: Expected: 12/06/2024, Expires: Start: 12-06-2024 End: 12-06-2024 Patient encounter procedure 12/06/2024 12:00 PM EST Office Visit [facility] [address] [place] [phone] Mariajose Clemente MD MPH [address] [address] [facility] Start: 07-10-2024 COVID-19 Vaccine () COVID-19 Vaccine () [facility] Start: 07-10-2024 Influenza vaccination Influenza Vaccine [facility] Start: 06-09-2024 Influenza vaccination Flu vaccine (#1) [facility] [employer] [facility] Start: 07-10-2023 COVID-19 Vaccine ( season) COVID-19 Vaccine () [facility] Start: 03-10-2023 Fall Risk Screening Fall Risk Screening [facility] Start: 2016 Fall Risk Screening Fall Risk Screening [facility] Start: 2011 Respiratory Syncytial Virus (RSV) or age 60 yrs+ (1 - 1-dose 60+ series) Respiratory Syncytial Virus (RSV) or age 60 yrs+ (1 - 1-dose 60+ series) [facility] Start: 1996 Screening for malignant neoplasm of colon [facility] [employer] [facility] Start: 1969 Hepatitis C screening Hepatitis C screen [facility] [employer] [facility] Start: 1963 Depression Screen Depression Screen [facility] [employer] [facility] Start: 1961 Lipid panel Lipids [facility] End: 04-14-2026 Apolipoprotein A1, S Apolipoprotein A1, S Lab Routine Health care maintenance 1 Occurrences starting 04/14/2025 until 04/14/2026 [facility] Work Phone: Comment on above: 1 Occurrences starting 04/14/2025 until 04/14/2026 End: 04-14-2026 Apolipoprotein B, S Apolipoprotein B, S Lab Routine Health care maintenance 1 Occurrences starting 04/14/2025 until 04/14/2026 [facility] Comment on above: 1 Occurrences starting 04/14/2025 until 04/14/2026 End: 05-03-2026 Bacteria identified in Urine by Culture Urine culture (clean catch) Microbiology Routine Dysuria Frequency of urination 1 Occurrences starting 05/03/2025 until 05/03/2026 [facility] Comment on above: 1 Occurrences starting 05/03/2025 until 05/03/2026 End: 05-05-2026 Basic metabolic 2000 panel - Serum or Plasma Basic Metabolic Panel Lab Routine Decreased appetite 1 Occurrences starting 05/05/2025 until 05/05/2026 [facility] Comment on above: 1 Occurrences starting 05/05/2025 until 05/05/2026 End: 04-14-2026 Bilirubin.indirect [Mass/volume] in Serum or Plasma Bilirubin, direct Lab Routine Health care maintenance 1 Occurrences starting 04/14/2025 until 04/14/2026 [facility] Comment on above: 1 Occurrences starting 04/14/2025 until 04/14/2026 End: 03-06-2026 C-reactive protein C-reactive protein Lab Routine Inflammatory polyarthritis (CMS-HCC) Seronegative rheumatoid arthritis (CMS-HCC) Medication monitoring encounter 1 Occurrences starting 03/06/2025 until 03/06/2026 [employer] Phone: Comment on above: 1 Occurrences starting 03/06/2025 until 03/06/2026 End: 06-22-2026 C-reactive protein C-reactive protein Lab Routine Inflammatory polyarthritis (CMS-HCC) Seronegative rheumatoid arthritis (CMS-HCC) Medication monitoring encounter 1 Occurrences starting 06/22/2025 until 06/22/2026 [facility] Comment on above: 1 Occurrences starting 06/22/2025 until 06/22/2026 End: 03-06-2026 CBC W Auto Differential panel - Blood CBC auto differential Lab Routine Inflammatory polyarthritis (CMS-HCC) Seronegative rheumatoid arthritis (CMS-HCC) Medication monitoring encounter 1 Occurrences starting 03/06/2025 until 03/06/2026 [facility] Comment on above: 1 Occurrences starting 03/06/2025 until 03/06/2026 End: 04-14-2026 CBC W Auto Differential panel - Blood CBC auto differential Lab Routine Health care maintenance 1 Occurrences starting 04/14/2025 until 04/14/2026 [facility] Comment on above: 1 Occurrences starting 04/14/2025 until 04/14/2026 End: 05-05-2026 CBC W Auto Differential panel - Blood CBC auto differential Lab Routine Iron deficiency anemia, unspecified iron deficiency anemia type 1 Occurrences starting 05/05/2025 until 05/05/2026 [employer] Work Phone: Comment on above: 1 Occurrences starting 05/05/2025 until 05/05/2026 End: 06-22-2026 CBC W Auto Differential panel - Blood CBC auto differential Lab Routine Inflammatory polyarthritis ([facility]) Seronegative rheumatoid arthritis ([facility]) Medication monitoring encounter 1 Occurrences starting 06/22/2025 until 06/22/2026 [facility] Comment on above: 1 Occurrences starting 06/22/2025 until 06/22/2026 End: 04-14-2026 Clean Catch Urinalysis Clean Catch Urinalysis Lab Routine Health care maintenance 1 Occurrences starting 04/14/2025 until 04/14/2026 [facility] Comment on above: 1 Occurrences starting 04/14/2025 until 04/14/2026 End: 05-05-2026 Clinical Pathology Blood Smear Review Clinical Pathology Blood Smear Review Lab Routine Iron deficiency anemia, unspecified iron deficiency anemia type 1 Occurrences starting 05/05/2025 until 05/05/2026 [facility] Comment on above: 1 Occurrences starting 05/05/2025 until 05/05/2026 End: 04-14-2026 Comprehensive metabolic 2000 panel - Serum or Plasma Comprehensive metabolic panel Lab Routine Health care maintenance 1 Occurrences starting 04/14/2025 until 04/14/2026 [facility] Comment on above: 1 Occurrences starting 04/14/2025 until 04/14/2026 End: 04-14-2026 Cortisol Cortisol Lab Routine Health care maintenance 1 Occurrences starting 04/14/2025 until 04/14/2026 [facility] Comment on above: 1 Occurrences starting 04/14/2025 until 04/14/2026 End: 03-06-2026 Creatinine includes GFR, serum Creatinine includes GFR, serum Lab Routine Inflammatory polyarthritis ([facility]) Seronegative rheumatoid arthritis ([facility]) Medication monitoring encounter 1 Occurrences starting 03/06/2025 until 03/06/2026 [email or web address] Comment on above: 1 Occurrences starting 03/06/2025 until 03/06/2026 End: 06-22-2026 Creatinine includes GFR, serum Creatinine includes GFR, serum Lab Routine Inflammatory polyarthritis ([facility]) Seronegative rheumatoid arthritis ([facility]) Medication monitoring encounter 1 Occurrences starting 06/22/2025 until 06/22/2026 [facility] Comment on above: 1 Occurrences starting 06/22/2025 until 06/22/2026 End: 04-14-2026 Cyanocobalamin vitamin b-12 Vitamin B12 Lab Routine Health care maintenance 1 Occurrences starting 04/14/2025 until 04/14/2026 [facility] Comment on above: 1 Occurrences starting 04/14/2025 until 04/14/2026 End: 04-14-2026 DHEA-sulfate DHEA-sulfate Lab Routine Health care maintenance 1 Occurrences starting 04/14/2025 until 04/14/2026 [facility] Comment on above: 1 Occurrences starting 04/14/2025 until 04/14/2026 End: 04-14-2026 Dihydrotestosterone, S Dihydrotestosterone, S Lab Routine Health care maintenance 1 Occurrences starting 04/14/2025 until 04/14/2026 [facility] Comment on above: 1 Occurrences starting 04/14/2025 until 04/14/2026 End: 03-06-2026 Erythrocyte sedimentation rate Erythrocyte Sedimentation Rate (ESR) Lab Routine Inflammatory polyarthritis ([facility]) Seronegative rheumatoid arthritis ([facility]) Medication monitoring encounter 1 Occurrences starting 03/06/2025 until 03/06/2026 [facility] Comment on above: 1 Occurrences starting 03/06/2025 until 03/06/2026 End: 04-14-2026 Erythrocyte sedimentation rate Erythrocyte Sedimentation Rate (ESR) Lab Routine Health care maintenance 1 Occurrences starting 04/14/2025 until 04/14/2026 [facility] Comment on above: 1 Occurrences starting 04/14/2025 until 04/14/2026 End: 06-22-2026 Erythrocyte sedimentation rate Erythrocyte Sedimentation Rate (ESR) Lab Routine Inflammatory polyarthritis ([facility]) Seronegative rheumatoid arthritis ([facility]) Medication monitoring encounter 1 Occurrences starting 06/22/2025 until 06/22/2026 [facility] Comment on above: 1 Occurrences starting 06/22/2025 until 06/22/2026 End: 07-20-2026 Esophagogastroduodenoscopy EGD GI Routine Esophageal dysphagia 1 Occurrences starting 07/20/2025 until 07/20/2026 [employer] Work Phone: Comment on above: 1 Occurrences starting 07/20/2025 until 07/20/2026 End: 04-14-2026 Estradiol Estradiol Lab Routine Health care maintenance 1 Occurrences starting 04/14/2025 until 04/14/2026 [facility] Comment on above: 1 Occurrences starting 04/14/2025 until 04/14/2026 End: 04-14-2026 Ferritin [Mass/volume] in Serum or Plasma Ferritin Lab Routine Health care maintenance 1 Occurrences starting 04/14/2025 until 04/14/2026 [facility] Comment on above: 1 Occurrences starting 04/14/2025 until 04/14/2026 End: 04-14-2026 Follicle stimulating hormone Follicle stimulating horm one Lab Routine Health care maintenance 1 Occurrences starting 04/14/2025 until 04/14/2026 [facility] Comment on above: 1 Occurrences starting 04/14/2025 until 04/14/2026 End: 04-14-2026 Gamma glutamyl transferase [Enzymatic activity/volume] in Serum or Plasma GGT Lab Routine Health care maintenance 1 Occurrences starting 04/14/2025 until 04/14/2026 [facility] Comment on above: 1 Occurrences starting 04/14/2025 until 04/14/2026 End: 05-05-2026 Haptoglobin Haptoglobin Lab Routine Iron deficiency anemia, unspecified iron deficiency anemia type 1 Occurrences starting 05/05/2025 until 05/05/2026 [facility] Comment on above: 1 Occurrences starting 05/05/2025 until 05/05/2026 End: 04-14-2026 Hemoglobin A1c/Hemoglobin.total in Blood Hemoglobin A1c Lab Routine Health care maintenance 1 Occurrences starting 04/14/2025 until 04/14/2026 [facility] Comment on above: 1 Occurrences starting 04/14/2025 until 04/14/2026 End: 04-14-2026 Hepatitis C virus Ab [Presence] in Serum or Plasma by Immunoassay Hepatitis C(HCV) Ab w/ Reflex to PCR Lab Routine Health care maintenance 1 Occurrences starting 04/14/2025 until 04/14/2026 [facility] Comment on above: 1 Occurrences starting 04/14/2025 until 04/14/2026 End: 04-14-2026 High sensitivity CRP High sensitivity CRP Lab Routine Health care maintenance 1 Occurrences starting 04/14/2025 until 04/14/2026 [facility] Comment on above: 1 Occurrences starting 04/14/2025 until 04/14/2026 End: 04-14-2026 Homocysteine total Homocysteine total Lab Routine Health care maintenance 1 Occurrences starting 04/14/2025 until 04/14/2026 [facility] Comment on above: 1 Occurrences starting 04/14/2025 until 04/14/2026 End: 04-14-2026 Insulin Insulin Lab Routine Health care maintenance 1 Occurrences starting 04/14/2025 until 04/14/2026 [facility] Comment on above: 1 Occurrences starting 04/14/2025 until 04/14/2026 End: 04-14-2026 Insulin-Like GFB Protein 3 Insulin-Like GFB Protein 3 Lab Routine Health care maintenance 1 Occurrences starting 04/14/2025 until 04/14/2026 [facility] Comment on above: 1 Occurrences starting 04/14/2025 until 04/14/2026 End: 04-14-2026 Iron and TIBC Iron and TIBC Lab Routine Health care maintenance 1 Occurrences starting 04/14/2025 until 04/14/2026 [facility] Comment on above: 1 Occurrences starting 04/14/2025 until 04/14/2026 End: 04-14-2026 LDH LDH Lab Routine Health care maintenance 1 Occurrences starting 04/14/2025 until 04/14/2026 [facility] Comment on above: 1 Occurrences starting 04/14/2025 until 04/14/2026 End: 05-05-2026 LDH LDH Lab Routine Iron deficiency anemia, unspecified iron deficiency anemia type 1 Occurrences starting 05/05/2025 until 05/05/2026 [facility] Comment on above: 1 Occurrences starting 05/05/2025 until 05/05/2026 End: 04-14-2026 Lipid 1996 panel - Serum or Plasma Lipid profile Lab Routine Health care maintenance 1 Occurrences starting 04/14/2025 until 04/14/2026 [facility] Comment on above: 1 Occurrences starting 04/14/2025 until 04/14/2026 End: 04-14-2026 Lipoprotein a [Mass/volume] in Serum or Plasma Lipoprotein(a), S Lab Routine Health care maintenance 1 Occurrences starting 04/14/2025 until 04/14/2026 [facility] Comment on above: 1 Occurrences starting 04/14/2025 until 04/14/2026 End: 03-06-2026 Liver panel Liver panel Lab Routine Inflammatory polyarthritis (CMS-HCC) Seronegative rheumatoid arthritis (CMS-HCC) Medication monitoring encounter 1 Occurrences starting 03/06/2025 until 03/06/2026 [facility] Comment on above: 1 Occurrences starting 03/06/2025 until 03/06/2026 End: 04-14-2026 Liver panel Liver panel Lab Routine Health care maintenance 1 Occurrences starting 04/14/2025 until 04/14/2026 [facility] Comment on above: 1 Occurrences starting 04/14/2025 until 04/14/2026 End: 05-05-2026 Liver panel Liver panel Lab Routine Iron deficiency anemia, unspecified iron deficiency anemia type Decreased appetite Hyperbilirubinemia 1 Occurrences starting 05/05/2025 until 05/05/2026 [facility] Comment on above: 1 Occurrences starting 05/05/2025 until 05/05/2026 End: 06-22-2026 Liver panel Liver panel Lab Routine Inflammatory polyarthritis (CMS-HCC) Seronegative rheumatoid arthritis ([facility]) Medication monitoring encounter 1 Occurrences starting 06/22/2025 until 06/22/2026 [facility] Comment on above: 1 Occurrences starting 06/22/2025 until 06/22/2026 End: 04-14-2026 Luteinizing hormone Luteinizing hormone Lab Routine Health care maintenance 1 Occurrences starting 04/14/2025 until 04/14/2026 [facility] Comment on above: 1 Occurrences starting 04/14/2025 until 04/14/2026 End: 04-14-2026 Magnesium [Mass/volume] in Serum or Plasma Magnesium Lab Routine Health care maintenance 1 Occurrences starting 04/14/2025 until 04/14/2026 [facility] Comment on above: 1 Occurrences starting 04/14/2025 until 04/14/2026 End: 04-14-2026 Microalbumin - Albumin: Creatinine Urine Ratio Microalbumin - Albumin: Creatinine Urine Ratio Lab Routine Health care maintenance 1 Occurrences starting 04/14/2025 until 04/14/2026 [facility] Comment on above: 1 Occurrences starting 04/14/2025 until 04/14/2026 End: 04-14-2026 Phosphate [Mass/volume] in Serum or Plasma Phosphorus Lab Routine Health care maintenance 1 Occurrences starting 04/14/2025 until 04/14/2026 [facility] Comment on above: 1 Occurrences starting 04/14/2025 until 04/14/2026 End: 04-14-2026 POCT EKG POCT EKG ECG Routine Health care maintenance 1 Occurrences starting 04/14/2025 until 04/14/2026 [facility] Comment on above: 1 Occurrences starting 04/14/2025 until 04/14/2026 End: 04-14-2026 Progesterone Progesterone Lab Routine Health care maintenance 1 Occurrences starting 04/14/2025 until 04/14/2026 [facility] Comment on above: 1 Occurrences starting 04/14/2025 until 04/14/2026 End: 04-14-2026 Prolactin Prolactin Lab Routine Health care maintenance 1 Occurrences starting 04/14/2025 until 04/14/2026 [facility] Comment on above: 1 Occurrences starting 04/14/2025 until 04/14/2026 End: 04-14-2026 Sex hormone binding globulin Sex hormone binding globu selene Lab Routine Health care maintenance 1 Occurrences starting 04/14/2025 until 04/14/2026 [facility] Comment on above: 1 Occurrences starting 04/14/2025 until 04/14/2026 End: 04-14-2026 Testosterone, Total and Free, S Testosterone, Total and Free, S Lab Routine Health care maintenance 1 Occurrences starting 04/14/2025 until 04/14/2026 [facility] Comment on above: 1 Occurrences starting 04/14/2025 until 04/14/2026 End: 04-14-2026 Thyrotropin [Units/volume] in Serum or Plasma TSH Lab Routine Health care maintenance 1 Occurrences starting 04/14/2025 until 04/14/2026 [facility] Comment on above: 1 Occurrences starting 04/14/2025 until 04/14/2026 End: 04-14-2026 Thyroxine (T4) free [Mass/volume] in Serum or Plasma T4, free Lab Routine Health care maintenance 1 Occurrences starting 04/14/2025 until 04/14/2026 [facility] Comment on above: 1 Occurrences starting 04/14/2025 until 04/14/2026 End: 04-14-2026 Triiodothyronine (T3) Free [Mass/volume] in Serum or Plasma T3, free Lab Routine Health care maintenance 1 Occurrences starting 04/14/2025 until 04/14/2026 [facility] Comment on above: 1 Occurrences starting 04/14/2025 until 04/14/2026 End: 04-14-2026 Urate [Mass/volume] in Serum or Plasma Uric acid Lab Routine Health care maintenance 1 Occurrences starting 04/14/2025 until 04/14/2026 [facility] Comment on above: 1 Occurrences starting 04/14/2025 until 04/14/2026 End: 05-03-2026 Urinalysis Urinalysis Lab Routine Dysuria Frequency of urination 1 Occurrences starting 05/03/2025 until 05/03/2026 [facility] Work Phone: Comment on above: 1 Occurrences starting 05/03/2025 until 05/03/2026 End: 04-14-2026 Vitamin D 25 hydroxy Vitamin D 25 hydroxy Lab Routine Health care maintenance 1 Occurrences starting 04/14/2025 until 04/14/2026 [facility] Comment on above: 1 Occurrences starting 04/14/2025 until 04/14/2026 Immunizations Immunization Date Immunization Notes Care Provider Fa cility 11-14-2022 Covid-19, Mrna, Lnp- s, Bivalent, Pf, 30mcg/0.3 ml Jack Stubbs MD Work Phone: [facility] 11-14-2022 influenza, injectabl e, quadrivalent, preservative free Jack Stubbs MD Work Phone: [facility] 11-14-2022 influenza virus vacc ine, unspecified formulation Jack Stubbs MD Work Phone: [facility] 12-25-2021 zoster vaccine recombinant Jack Stubbs MD Work Phone: [facility] 10-24-2021 Influenza Vaccine, Quadrivalent, Adjuvanted Jack Stubbs MD Work Phone: [facility] 10-24-2021 zoster vaccine recombinant Jack Stubbs MD Work Phone: [facility] 07-25-2021 tetanus toxoid, redu doe diphtheria toxoid, and acellular pertussis vaccine, adsorbed Jack Stubbs MD Work Phone: [facility] 01-19-2021 COVID-19, mRNA, LNP- S, PF, 100mcg/0.5mL Dose Jack Stubbs MD Work Phone: [facility] 12-22-2020 COVID-19, mRNA, LNP- S, PF, 100mcg/0.5mL Dose Jack Stubbs MD Work Phone: [facility] 08-27-2020 Influenza, High-dose , Quadrivalent Jack Stubbs MD Work Phone: [facility] 03-15-2020 pneumococcal conjuga te vaccine, 13 valent aJck Stubbs MD Work Phone: [facility] 09-15-2019 influenza, injectabl e, quadrivalent, preservative free Jack Stubbs MD Work Phone: [facility] 12-23-2018 pneumococcal polysaccharide vaccine, 23 valent Jack Stubbs MD Work Phone: [facility] 09-15-2017 influenza, injectabl e, quadrivalent, contains preservative Jack Stubbs MD Work Phone: [facility] 09-15-2017 pneumococcal polysaccharide vaccine, 23 valent Jack Stubbs MD Work Phone: [facility] 08-26-2016 influenza, injectabl e, quadrivalent, contains preservative Jack Stubbs MD Work Phone: [facility] 09-28-2015 influenza, seasonal, injectable Jack Stubbs MD Work Phone: [facility] 02-09-2015 zoster vaccine, live Jack Stubbs MD Work Phone: [facility] 12-02-2013 influenza, seasonal, injectable, preservative free Jack Stubbs MD Work Phone: [facility] 01-30-2011 tetanus toxoid, redu doe diphtheria toxoid, and acellular pertussis vaccine, adsorbed Jack Stubbs MD Work Phone: [facility] Payers Date Payer Category Payer Managed Care Other (unspecified) [id number] 2023 Private Health Insurance [id number] 2019 Private Health Insurance [id number] 2016 Private Health Insurance [id number] 1950 Unknown [id number] 2.16.840.1.123541.3.579.2.175 1950 Unknown [id number] 2.16.840.1.763794.3.579.2.175 1951 Unknown [id number] 2.16.840.1.535805.3.579.2.175 1951 Unknown [id number] 2.16.840.1.909476.3.579.2.175 1951 Unknown [id number] 2.16.840.1.816149.3.579.2.175 1951 Unknown [id number] 2.16.840.1.314722.3.579.2.175 1951 Unknown [id number] 2.16.840.1.509035.3.579.2.175 1951 Unknown [id number] 2.16.840.1.818346.3.579.2.1286 1951 Unknown [id number] 2.16.840.1.667306.3.579.2.1286 1951 Unknown [id number] 2.16.840.1.196434.3.579.2.128 1951 Unknown [id number] 2.16.840.1.358974.3.579.2.128 1951 Unknown [id number] 2.16.840.1.910352.3.579.2.1285 1951 Unknown [id number] 2.16.840.1.845451.3.579.2.1285 1951 Unknown [id number] 2.16.840.1.324104.3.579.2.128 1951 Unknown [id number] 2.16.840.1.471371.3.579.2.128 1951 Unknown [id number] 2.16.840.1.891302.3.579.2.1285 1951 Unknown [id number] 2.16.840.1.435221.3.579.2.128 1951 Unknown [id number] 2.16.840.1.566908.3.579.2.128 1951 Unknown [id number] 2.16.840.1.868448.3.579.2.128 1951 Unknown [id number] 2.16.840.1.949677.3.579.2.128 1951 Unknown [id number] 2.16.840.1.544175.3.579.2.1285 1951 Unknown [id number] 2.16.840.1.954177.3.579.2.12804-1950 Unknown [id number] 2.16.840.1.864525.3.579.2.1285 1951 Unknown [id number] 2.16.840.1.848305.3.579.2.1285 1951 Unknown [id number] 2.16.840.1.725304.3.579.2.1285 1951 Unknown [id number] 2.16.840.1.069051.3.579.2.128 1951 Unknown [id number] 2.16.840.1.521746.3.579.2.1285 1951 Unknown [id number] 2.16.840.1.996952.3.579.2.1285 1951 Unknown [id number] 2.16.840.1.923202.3.579.2.1285 1951 Unknown [id number] 2.16.840.1.702593.3.579.2.1285 1951 Unknown [id number] 2.16.840.1.166835.3.579.2.1285 1951 Unknown [id number] 2.16.840.1.215148.3.579.2.1285 1951 Unknown [id number] 2.16.840.1.525436.3.579.2.1285 1951 Unknown [id number] 2.16.840.1.957287.3.579.2.1285 1951 Unknown [id number] 2.16.840.1.407444.3.579.2.1285 1951 Unknown [id number] 2.16.840.1.784110.3.579.2.1285 1951 Unknown [id number] 2.16.840.1.138579.3.579.2.1285 1951 Unknown [id number] 2.16.840.1.321158.3.579.2.1286 1951 Unknown [id number] 2.16.840.1.926184.3.579.2.1285 1951 Unknown [id number] 2.16.840.1.166483.3.579.2.128 1951 Unknown [id number] 2.16.840.1.587351.3.579.2.128 1951 Unknown [id number] 2.16.840.1.311116.3.579.2.128 1951 Unknown [id number] 2.16.840.1.089190.3.579.2.128 1951 Unknown [id number] 2.16.840.1.074534.3.579.2.1285 1951 Unknown [id number] 2.16.840.1.208444.3.579.2.128 1951 Unknown [id number] 2.16.840.1.147463.3.579.2.1285 1951 Unknown [id number] 2.16.840.1.645488.3.579.2.1285 1951 Unknown [id number] 2.16.840.1.154981.3.579.2.1285 1951 Unknown [id number] 2.16.840.1.466575.3.579.2.128 1951 Unknown [id number] 2.16.840.1.424147.3.579.2.1285 1951 Unknown [id number] 2.16.840.1.327007.3.579.2.128 1951 Unknown [id number] 2.16.840.1.914128.3.579.2.1285 1951 Unknown [id number] 2.16.840.1.085780.3.579.2.1286 1951 Unknown [id number] 2.16.840.1.971991.3.579.2.1286 Social History Date Type Detail Facility Start: 03-02-2024 Tobacco smoking stat NHIS Ex-smoker [facility] End: 11-09-2017 History of tobacco use [facility] End: 11-09-2017 History of tobacco use Cigarette Smoker [facility] Start: 03-02-2024 Tobacco use and exposure Smokeless tobacco non-user [facility] Start: 11-04-2024 End: 07-20-2025 Alcoholic beverage intake Current drinker of alcohol (finding) [facility] Start: 11-20-2020 End: 11-04-2024 Alcoholic beverage intake [facility] Start: 11-20-2020 End: 10-20-2024 Tobacco use panel [facility] Adolescent depressio n screening assessment 0 [facility] Start: 07-18-2021 Alcohol Comment daily [facility] Start: 1950 Sex assigned at Not on file [facility] Start: 06-12-2015 Sex Female (finding) [facility] Goals Date Patient Goal Desired Activity /State Personal health goal Comment on above: Formatting of this n ote might be different from the original. Evaluation of progress towards goal: Discharge home with & [facility] Personal health goal Clinical Notes 12-06-2024 to 07-20-2025 Telephone Encounter - Jessie Avina - 07/20/2025 11:48 AM EDTTelephone Encounter - Jessie Avina - 07/20/2025 11:48 AM Shaunna Russell MD - 07/20/2025 10:45 AM EDTPatient Instructions Note Date & Type Note Facility 07-20-2025 Miscellaneous Notes EGD/KB 08/09/2025 @ 12p ASA3, MAC, TFL Instructions given at check out//07/20/2025/cac [facility] 07-20-2025 Telephone encounter Note EGD/KB 08/09/2025 @ [facility] ASA3, MAC, TFL Instructions given at check out/07/20/2025/cac [facility] 07-20-2025 History of Present illness Narrative Subjective: Patient ID: Beena Diaz is a 74 y.o. female. HPI This [...] review of the chart reveals that she had EGD with empiric dilation just over 1 year ago at which time there were no observable strictures. However, biopsies did show reflux changes in his a small area of Barretts esophagus. I have gone back to review the photos. There are a few [...] chronic heart failure with preserved ejection fraction ([facility]) (02/20/2022), Anxiety, Arthritis, Asthma, Cellulitis of left lower extremity (02/19/2022), COPD (chronic obstructive pulmonary disease) ([facility]) (03/14/2019), Dyslipidemia, Esophageal dysphagia (2023), Heart murmur, Hypertension, Low back pain, Open wound of left lower leg (01/20/2022), Parkinson's disease, Sepsis due to Staphylococcus aureus ([facility]) (01/17/2022), Tear of right hamstring (07/03/2020), and [...] use of about 7.0 standard drinks of alcohol per week. She reports that she does not [...] find the majority of her complaints to be consistent with an oropharyngeal type of dysphagia likely due to a combination of Parkinson's disease and a cervical osteophyte. There is however a component of esophageal dysphagia in the setting of chronic reflux and therefore she has elected to proceed with esophageal dilation to see how much this might improve her symptoms. EGD at [facility], ASA 3, MAC. documented in this encounter [facility] 07-19-2025 Miscellaneous Notes Prior Authorization/Notification is not required for the requested service(s). This [email or web address] member's plan does not currently require a prior authorization for these services. If you have general questions about the prior authorization requirements, please call us at [phone] or visit L3 > Clinician Resources > Advance and Admission Notification Requirements. The number above acknowledges your notification. Please write this number down for future reference. Notification is not a guarantee of coverage or payment. Decision ID #: [id number] The number above acknowledges your inquiry and our response. Please write this number down and refer to it for future inquiries. Coverage and payment for an item or service is governed by the member's benefit plan document, and, if applicable, the provider's participation agreement with the Health Plan. Recommended Clinical Documentation keyboard_arrow_up Print this list for future reference For initial Injection medical notes documenting the following, when applicable: 1. Diagnosis 2. History of the medical condition(s) requiring treatment or surgical intervention 3. Documentation of signs and symptoms; including onset, duration, and frequency 4. Physical exam demonstrating presence of radicular pain 5. Relevant medical history related to the spine or surrounding tissu...(view full list below) View full list of recommended clinical documentation Patient details keyboard_arrow_up Patient name BEENA DIAZ Member number [id number] Group number [id number] Product POS Relationship Spouse Effective date 11/09/2024 Termination date 11/08/2025 Insurance type Commercial Verbal language preference - Written language preference - info A future timeline may be available for this member. For future coverage please call the telephone number located on the back of the member's Medical ID card. Submitting provider details keyboard_arrow_up Name Isidro Woodall Tax ID number [id number] Address [address], [place] [address] Status In network Service setting keyboard_arrow_up Place of service Office What is place of service? Service description Scheduled What is service description? Ordering provider details keyboard_arrow_up This provider provides the referral or prescription for the services that are going to be rendered. You are able to select an ordering provider either from your favorites, or perform a new provider search. Name ISIDRO WOODALL Tax ID number [id number] Address [address], [place] [address] T. [phone] Status In network Diagnosis code details keyboard_arrow_up Code sequence Primary Diagnosis code M54.12 Description Radiculopathy, cervical region Service details keyboard_arrow_up Use the Proceed with submission button to proceed with a prior authorization submission for the services below that either require prior authorizations for all or require for some of the place of service settings. check_circle Prior authorization is NOT REQUIRED for your selected place of service Code sequence primary Procedure code 56698 NJX AA&/STRD TFRML EPI CERVICAL/THORACIC 1 LEVEL Associated diagnosis code M54.12 Radiculopathy, cervical region Start/end dates 07/19/2025 - 10/08/2025 Service Details Pain Management Count info 1 Standard of Measure info Visits Frequency info Time(s) Total info 1 Selected servicing provider Name ISIDRO WOODALL Tax ID number [id number] Address [address], [place] [address] T. [phone] Status In network documented in this encounter [facility] 07-19-2025 Telephone encounter Note Prior Authorization/Notification is not required for the requested service(s). This [facility] Commercial member's plan does not currently require a prior authorization for these services. If you have general questions about the prior authorization requirements, please call us at [phone] or visit L3 > Clinician Resources > Advance and Admission Notification Requirements. The number above acknowledges your notification. Please write this number down for future reference. Notification is not a guarantee of coverage or payment. Decision ID #: [id number] The number above acknowledges your inquiry and our response. Please write this number down and refer to it for future inquiries. Coverage and payment for an item or service is governed by the member's benefit plan document, and, if applicable, the provider's participation agreement with the Health Plan. Recommended Clinical Documentation keyboard_arrow_up Print this list for future reference For initial Injection medical notes documenting the following, when applicable: 1. Diagnosis 2. History of the medical condition(s) requiring treatment or surgical intervention 3. Documentation of signs and symptoms; including onset, duration, and frequency 4. Physical exam demonstrating presence of radicular pain 5. Relevant medical history related to the spine or surrounding tissu...(view full list below) View full list of recommended clinical documentation Patient details keyboard_arrow_up Patient name BEENA DIAZ Member number [id number] Group number [id number] Product POS Relationship Spouse Effective date 11/09/2024 Termination date 11/08/2025 Insurance type Commercial Verbal language preference - Written language preference - info A future timeline may be available for this member. For future coverage please call the telephone number located on the back of the member's Medical ID card. Submitting provider details keyboard_arrow_up Name Isidro Woodall Tax ID number [id number] Address [address], [place] [address] Status In network Service setting keyboard_arrow_up Place of service Office What is place of service? Service description Scheduled What is service description? Ordering provider details keyboard_arrow_up This provider provides the referral or prescription for the services that are going to be rendered. You are able to select an ordering provider either from your favorites, or perform a new provider search. Name ISIDRO WOODALL Tax ID number [id number] Address [address], [place] [address] T. [phone] Status In network Diagnosis code details keyboard_arrow_up Code sequence Primary Diagnosis code M54.12 Description Radiculopathy, cervical region Service details keyboard_arrow_up Use the Proceed with submission button to proceed with a prior authorization submission for the services below that either require prior authorizations for all or require for some of the place of service settings. check_circle Prior authorization is NOT REQUIRED for your selected place of service Code sequence primary Procedure code 46125 NJX AA&/STRD TFRML EPI CERVICAL/THORACIC 1 LEVEL Associated diagnosis code M54.12 Radiculopathy, cervical region Start/end dates 07/19/2025 - 10/08/2025 Service Details Pain Management Count info 1 Standard of Measure info Visits Frequency info Time(s) Total info 1 Selected servicing provider Name ISIDRO WOODALL Tax ID number [id number] Address [address], [place] [address] T. [phone] Status In network [facility] 07-14-2025 Miscellaneous Notes Medication Refill request: Medication Name and Strength: clonazePAM (KlonoPIN) 0.5 mg tablet Current dose & Frequency: 1 tablet in the morning and 3 tablets at night 30 day or 90 day supply preferred: 90 Pharmacy Name: [facility] pharmacy [phone] Request was made by: Patient Med Refill Med: clonazePAM (KlonoPIN) 0.5 mg tablet Days Of Supply : 90 Patients Last Office Visit: 05/17/25 Next Office Visit: 08/01/25 Current Pharmacy :[id number] - [place], [place] - [address] [facility] [address] documented [facility] encounter [facility] 07-14-2025 Telephone encounter Note Medication Refill request: Medication Name and Strength: clonazePAM (KlonoPIN) 0.5 mg tablet Current dose & Frequency: 1 tablet in the morning and 3 tablets at night 30 day or 90 day supply preferred: 90 Pharmacy Name: [facility] [phone] Request was made by: Patient [facility] 07-14-2025 Telephone encounter Note Med Refill Med: clonazePAM (KlonoPIN) 0.5 mg tablet Days Of Supply : 90 Patients Last Office Visit: 05/17/25 Next Office Visit: 08/01/25 Current Pharmacy :[facility] - [place] - [address] [address], [place] [address] [facility] 07-13-2025 History of Present illness Narrative [facility] Family Medicine/Sports Medicine SUBJECTIVE: Beena Diaz is a 74 y.o. [...] hand Menopause Decreased body height Parkinson's disease ([facility]) Hypertension Mixed hyperlipidemia Lumbar degenerative disc disease Osteoarthritis of facet joint of lumbar spine COPD (chronic obstructive pulmonary disease) ([facility]) Tear of right hamstring Right rotator cuff tear arthropathy Livedo reticularis Oral lesion Chronic heart failure with preserved ejection fraction ([facility]) Vasovagal episode Nonrheumatic mitral valve regurgitation Chronic [...] 1304 BP: 105/64 Pulse: 100 Temp: 36.2 C (97.1 F) SpO2: 94% Weight: 42.2 kg (93 lb) Height: 157.5 cm (5' 2.01 ) Body mass index is 17.01 kg/m . Physical Exam Constitutional: Appearance: She is ill-appearing. [...] X-ray chest 2 views; Future COPD exacerbation ([facility]) - doxycycline (VIBRA-TABS) 100 mg tablet; Take [...] Doxycyline twice a day for 7 days. BrendenCIARRA Carrillo 07/13/25 1617 documented in this encounter [facility] 07-13-2025 Instructions CIARRA Osei - 07/13/2025 1:00 PM EDT Prednisone in the morning with food. Doxycyline twice a day for 7 days. documented in this encounter [facility] 07-04-2025 Miscellaneous Notes Is it the same [...] detailed message to return my call on [employer] to schedule a follow-up with Dr. Silva for 07/05/2025 at 14:00 or 07/06/2025 at 15:30. [facility] Telephone encounter Note Is it the [...] patient is taking 1 tab in AM [facility] 07-04-2025 Telephone encounter Note Can you try to find her a closer follow up to discuss these changes? OK to use DBS slot. [facility] 07-04-2025 Telephone encounter Note I have attempted to contact this patient by phone with the following results: left detailed message to return my call on [employer] to schedule a follow-up with Dr. Silva for 07/05/2025 at 14:00 or 07/06/2025 at 15:30. [facility] 07-03-2025 Miscellaneous Notes Patient called in asking [...] I have messaged Dr. Silva directly through [employer] and we will update the patient's accordingly after our discussion. Mariajose Clemente MD, MPH documented in this encounter [facility] 07-03-2025 Telephone encounter Note Patient called in asking if Dr. Clemente could change medication from Methotrexate. [place] states patient is in a lot of pain from having Parkinson's. [place] states he just want his to get some relief [facility] 07-03-2025 Telephone encounter Note I was able [...] I have messaged Dr. Silva directly through [employer] chat and we will update the patient's accordingly after our discussion. Mariajose Clemente MD, MPH [facility] 07-03-2025 History of Present illness Narrative . Ines Uribe PA-C 07/03/25804 documented in this encounter [facility] 06-30-2025 Miscellaneous Notes Medication Refill request: Medication Name and Strength:amantadine (SYMMETREL) 100 mg tablet Current dose & Frequency: actuTake 1-2 tabs at 6am and 1 tab at 12pm PO. ally taking - not what is listed on the prescription label 30 day or 90 day supply preferred: Pharmacy Name: [facility] [place] - [address] [address] [address] [address] [facility] [address] Request was made by:Patient - patient stated that pharmacy do not have script to fill medication Supervisor Grower spoke with pharmacist at [facility] and was told that they did not have prescription that was written on 06/20/2025 on file. Supervisor Grower gave verbal order for medication to avoid a delay in treatment. 90 day supply with 3 + refills. documented in this encounter [facility] 06-30-2025 Telephone encounter Note Medication Refill request: Medication Name and Strength:amantadine (SYMMETREL) 100 mg tablet Current dose & Frequency: actuTake 1-2 tabs at 6am and 1 tab at 12pm PO. ally taking - not what is listed on the prescription label 30 day or 90 day supply preferred: Pharmacy Name: [facility] [place] - [address] [address] [address] [address] [facility] [address] Request was made by:Patient - patient stated that pharmacy do not have script to fill medication [facility] 06-30-2025 Telephone encounter Note Supervisor Grower spoke with pharmacist at [facility] and was told that they did not have prescription that was written on 06/20/2025 on file. Supervisor Grower gave verbal order for medication to avoid a delay in treatment. 90 day supply with 3 + refills. [facility] 06-29-2025 Miscellaneous Notes Patient called stating she [...] I would like her to present to [facility]. Take your time when eating, chew [...] my call back number. Also sent a [employer] message. documented in this encounter [facility] 06-29-2025 Telephone encounter Note Patient called stating she is having terrible dysphagia. Patient got a fluoroscopy swallow study yesterday and it was normal. Patient wants EGD with dilation. Patient has not been seen since 04/2024. Scheduled appointment on 10/13 with Ines. [facility] 06-29-2025 Telephone encounter Note Will leave for Ines to review upon her return. If she is unable to tolerate any oral intake, I would like her to present to [facility]. Take your time when eating, chew [...] minutes prior to breakfast at this time. [facility] Work Phone: 06-29-2025 Telephone encounter Note Staff, [...] patient is already scheduled for. Thank you. [facility] Work Phone: 06-29-2025 Telephone encounter Note I reviewed previous results. There was no identifiable stricture and post-dilation inspection showed no mucosal disruption. This would suggest that her swallowing problem may well be due to something other than esophageal stricture. You can put her in for an office visit with me, okay to use a 10:45 a.m. spot. [employer] [facility] 06-29-2025 Telephone encounter Note Called and left a detailed VMM for patient with my call back number. Also sent a Jamglue message. [facility] 06-29-2025 Miscellaneous Notes Patient had a visit [...] physician Physical Therapy: daily hep and stretches Rehab Office Coordinator: No Pain Management: Injections & Medication Prior Surgery: None Pain Score: 9/10 No blood thinner No cardiac device Not diabetic Iodine Allergies: Iodinated Contrast Media Left patient a voicemail to return call to schedule repeat BL C3-[address] injection [address]. Woodall, and 3 month follow-up with Ofelia Pierce NP. *separate into 2 appointments documented in this encounter [facility] 06-29-2025 Telephone encounter Note Patient had a visit 04/25/2025 with Ofelia, per notes patient will call if ready for injections, patient's daughter called informed that mom is indeed ready, can an order please be placed? Thanks! [facility] 06-29-2025 Telephone encounter Note Order placed. Please call to schedule. Thank you! Previous Evaluation and Treatment Diagnostics: MRI Cervical 12/2024 Medications tried: OTC, NSAIDS, Muscle Relaxants, and Narcotics Home Exercise Program: Guided by physician Physical Therapy: daily hep and stretches Rehab Office Coordinator: No Pain Management: Injections & Medication Prior Surgery: None Pain Score: 9/10 No blood thinner No cardiac device Not diabetic Iodine Allergies: Iodinated Contrast Media [facility] 06-29-2025 Telephone encounter Note Left patient a voicemail to return call to schedule repeat BL C3-[address] Cerv[address] TFESI injection with Dr. Woodall, and 3 month follow-up with Ofelia Pierce NP. *separate into 2 appointments [facility] 06-22-2025 History of Present illness Narrative Images from the original note were not included. ADULT RHEUMATOLOGY CLINIC NOTE [id number] [phone] Patient Name: Beena Diaz Subjective Reason for [...] and dexterity with fine motor tasks and seo coordinator strength. She also notices discomfort in the bilateral feet as well as the ankles. 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 Family Hx: -noncontributory Interval History: The patient [...] hand Menopause Decreased body height Parkinson's disease ([facility]) Hypertension Mixed hyperlipidemia Lumbar degenerative disc disease Osteoarthritis of facet joint of lumbar spine COPD (chronic obstructive pulmonary disease) ([facility]) Tear of right hamstring Right rotator cuff tear arthropathy Livedo reticularis Oral lesion Chronic heart failure with preserved ejection fraction ([facility]) Vasovagal episode Nonrheumatic mitral valve regurgitation Chronic pain syndrome Neck pain, chronic Cervical radiculopathy reviewed. Past Surgical History: Procedure Laterality Date AUGMENTATION MAMMAPLASTY 11/09/2018 silicone COLONOSCOPY 10/20/2015 Rept 10 yrs ESOPHAGOGASTRODUODENOSCOPY with biopsies and dilatioin N/A 05/24/2024 Performed by Colleen Russell MD at [facility] OTHER SURGICAL HISTORY spinal pain shot reviewed. Social History Tobacco Use Smoking status: Former Current packs/day: 0.00 Types: Cigarettes Quit date: 2017 Years since quittin.6 Smokeless tobacco: Never Vaping Use Vaping status: Never Used Substance Use Topics Alcohol use: Yes Alcohol/week: 7.0 standard drinks of alcohol Types: 7 Glasses of wine per week Comment: daily Drug use: No Comment: THC gummies reviewed. Past Medical History: Diagnosis Date Acute on chronic heart failure with preserved ejection fraction ([facility]) 02/20/2022 Anxiety Arthritis Asthma Cellulitis of left lower extremity 02/19/2022 COPD (chronic obstructive pulmonary disease) ([facility]) 03/14/2019 Dyslipidemia Esophageal dysphagia 2023 Heart murmur Hypertension Low back pain Open wound of left lower leg 01/20/2022 Parkinson's disease Sepsis due to Staphylococcus aureus ([facility]) 01/17/2022 Tear of right hamstring 07/03/2020 Visual [...] chronic back pain Release to patient via MyChart?: Immediate [1] C-reactive protein Standing Status: Future Expiration Date: 06/22/2026 Release to patient via MyChart?: Immediate [1] Erythrocyte Sedimentation Rate (ESR) Standing Status: Future Expiration Date: 06/22/2026 Release to patient via MyChart?: Immediate [1] Liver panel Standing Status: Future Expiration Date: 06/22/2026 Release to patient via clipkithart?: Immediate [1] CBC auto differential Standing Status: Future Expiration Date: 06/22/2026 Release to patient via MyChart?: Immediate [1] Creatinine includes GFR, serum Standing Status: Future Expiration Date: 06/22/2026 Release to patient via MyChart?: Immediate [1] -we will proceed with med [...] Follow-up: -3 months Mariajose Clemente MD, MPH [facility] [address] [place] [address] Total [id number] time was 45 minutes with more than [...] for your understanding. documented in this encounter [facility] 06-22-2025 Instructions Mariajose Clemente MD MPH - 06/22/2025 12:00 PM [...] injections with Ofelia documented in this encounter [facility] 06-19-2025 Miscellaneous Notes Medication Refill request: Medication Name and Strength: amantadine (SYMMETREL) 100 mg tablet Current dose & Frequency: Take 1-2 tabs at 6am and 1 tab at 12pm PO. 30 day or 90 day supply preferred: 30 Pharmacy Name: [facility] [address] [place] [address] - Request was made by: Patient Refill request : amantadine (SYMMETREL) 100 mg tablet Last Filled : 01/26/2025 Last OV : 05/17/2025 Next OV : 08/01/2025 Reviewed by NURSE ADVOCATE. Pend for signature. documented in this encounter [facility] 06-19-2025 Telephone encounter Note Medication Refill request: Medication Name and Strength: amantadine (SYMMETREL) 100 mg tablet Current dose & Frequency: Take 1-2 tabs at 6am and 1 tab at 12pm PO. 30 day or 90 day supply preferred: 30 Pharmacy Name: [facility] [address] [place] [address] - Request was made by: Patient [facility] 06-19-2025 Telephone encounter Note Refill request : amantadine (SYMMETREL) 100 mg tablet Last Filled : 01/26/2025 Last OV : 05/17/2025 Next OV : 08/01/2025 Reviewed by NURSE ADVOCATE. Pend for signature. [facility] 05-31-2025 Miscellaneous Notes Patient called and asked if Dr. Silva would be okay with her doing her Physical Therapy and Speech Therapy [facility] in [place] instead of [facility] because it is closer to her so she will not have to travel so far. If this is okay she asked to have her referral faxed to [phone]. Patient can be reached back at [phone] Yes that is fine, please fax orders from 05/17 as she requested Supervisor Grower has faxed orders from 05/17 to [facility] documented in this encounter [facility] 05-31-2025 Telephone encounter Note Patient called and asked if Dr. Silva would be okay with her doing her Physical Therapy and Speech Therapy [facility] in [place] instead of [facility] because it is closer to her so she will not have to travel so far. If this is okay she asked to have her referral faxed to [phone]. Patient can be reached back at [phone] [facility] 05-31-2025 Telephone encounter Note Yes that is fine, please fax orders from 05/17 as she requested [facility] 05-31-2025 Telephone encounter Note Supervisor Grower has faxed orders from 05/17 to [facility] 05-17-2025 History of Present illness Narrative Summary: Progress Note Images from the original note were not included. [address] [facility] [id number] Patient: Beena Diaz Date of : 1950 [...] chronic heart failure with preserved ejection fraction ([facility]) 02/20/2022 Anxiety Arthritis Asthma Cellulitis of left lower extremity 02/19/2022 COPD (chronic obstructive pulmonary disease) ([facility]) 03/14/2019 Dyslipidemia Esophageal dysphagia 2023 Heart murmur Hypertension Low back pain Open wound of left lower leg 01/20/2022 Parkinson's disease Sepsis due to Staphylococcus aureus ([facility]) 01/17/2022 Tear of right hamstring 07/03/2020 Visual impairment glasses Family History Problem Relation Age of Onset Diabetes Father Heart disease Father CABG at age 65 Colon cancer Neg Hx Anesthesia problems Neg Hx Past Surgical History: Procedure Laterality Date AUGMENTATION MAMMAPLASTY 11/09/2018 silicone COLONOSCOPY 10/20/2015 Rept 10 yrs ESOPHAGOGASTRODUODENOSCOPY with biopsies and dilatioin N/A 05/24/2024 Performed by Colleen Russell MD at [facility] OTHER SURGICAL HISTORY spinal pain shot Current [...] other health record Jose Vera, MS3 [facility] Trice Silva MD documented in this encounter [facility] 05-17-2025 Instructions Trice Silva MD - 05/17/2025 [...] want vyalev pump documented in this encounter [facility] 05-09-2025 Miscellaneous Notes Process Development Chemist spoke with Annalise Rodriguez regarding Dr. Dominguez requesting this patient receive IV hydration weekly, same as patient received on 05/05/25. As of now, there is no standing order placed for IV hydration. Supervisor Grower informed Annalise to reference the documentation from MARTIN Fernandez on 05/05/25 which outlines the process for submitting the order to the [facility]. Also, informed Annalise that Dr. Hebert's note on 05/05/25, specifically has the type of IV solution and hours to be infused. Annalise stated she had not read the notes. She would read the notes and call communications writer with any questions. documented in this encounter [facility] 05-09-2025 Telephone encounter Note Process Development Chemist spoke with Annalise Rodriguez regarding Dr. Dominguez requesting this patient receive IV hydration weekly, same as patient received on 05/05/25. As of now, there is no standing order placed for IV hydration. Supervisor Grower informed Annalise to reference the documentation from MARTIN Fernandez on 05/05/25 which outlines the process for submitting the order to the [facility]. Also, informed Annalise that Dr. Hebert's note on 05/05/25, specifically has the type of IV solution and hours to be infused. Annalise stated she had not read the notes. She would read the notes and call communications writer with any questions. [facility] 05-05-2025 Miscellaneous Notes Spoke with patient family and home health. Due to chronic dehydration, increased creatinine, patient family requesting to have IV bolus. Discussed with home health, patient to have this done at infusion center. Ordered 1L D5 LR to be given over [address] Angelica Hebert DO documented in this encounter [facility] 05-05-2025 Telephone encounter Note Spoke with patient family and home health. Due to chronic dehydration, increased creatinine, patient family requesting to have IV bolus. Discussed with home health, patient to have this done at infusion center. Ordered 1L D5 LR to be given over [address] Angelica Hebert DO [facility] 05-03-[address] Janell Hebert called and asked to speak with Dr. Silva regarding the patient. She asked for a call back at [phone] Hebert reports patient has recent weight loss which they are working her up for and cognitive decline. She requested if any medications could be eliminated I suggested tapering off amantadine and possibly clonazepam as those can cause cognitive changes. Will see patient early May as planned. Supervisor Grower received a call from patients . He would like to speak with Dr. Silva or nurse. Caller received very bad news from MRI in the brain .Caller very concerned about results and would like some advise on treatments he can start for his . Caller expressed great concern. Supervisor Grower marking High Priority. Please call back patients [place] at [phone] Please advise, thank you I tried to [...] are nonspecific). Please chare this with patient/family. Supervisor Grower relayed Dr. Silva's response to patient's spouse.Patient's spouse stated that patient has lost a lot of weight and he is wondering if patient is anorexic and he knows that that can play a role in her cognitive issues. He is asking if patient should possibly have IV hydration and enteral feedings. His daughters are in medical field and they have researched these. Supervisor Grower asked if they have talked to PCP about this patient spouse stated that he had spoken with them. I am not sure that she is to the point that she would need IV or enteral nutrition, but I have not seen her since her decline. She needs to talk to her PCP for these concerns. documented in this encounter [facility] 05-03-[address] Janell Hebert called and asked to speak with Dr. Silva regarding the patient. She asked for a call back at [phone] [facility] 05-03-2025 Telephone encounter Note I returned call. Dr. Hebert reports patient has recent weight loss which they are working her up for and cognitive decline. She requested if any medications could be eliminated I suggested tapering off amantadine and possibly clonazepam as those can cause cognitive changes. Will see patient early May as planned. [facility] 05-03-2025 Telephone encounter Note Supervisor Grower received a call from patients . He would like to speak with Dr. Silva or nurse. Caller received very bad news from MRI in the brain .Caller very concerned about results and would like some advise on treatments he can start for his . Caller expressed great concern. Supervisor Grower marking High Priority. Please call back patients [place] at [phone] Please advise, thank you [facility] 05-03-2025 Telephone encounter Note I tried to [...] are nonspecific). Please chare this with patient/family. [facility] 05-03-2025 Telephone encounter Note Supervisor Grower relayed Dr. Silva's response to patient's spouse.Patient's spouse stated that patient has lost a lot of weight and he is wondering if patient is anorexic and he knows that that can play a role in her cognitive issues. He is asking if patient should possibly have IV hydration and enteral feedings. His daughters are in medical field and they have researched these. Supervisor Grower asked if they have talked to PCP about this patient spouse stated that he had spoken with them. [facility] 05-03-2025 Telephone encounter Note I am not sure that she is to the point that she would need IV or enteral nutrition, but I have not seen her since her decline. She needs to talk to her PCP for these concerns. [facility] 05-03-2025 History of Present illness Narrative 05/03/2025 Beena Edwardsnicholas Diaz [address] [place] [address] : 1950 Dear Jose Beena Edwards Joe, It was a pleasure seeing you as a patient at [facility]. Our assessment and recommendations are as follows: [...] the direction of your primary provider and/or senior manager creative services. Cervical: Your cervical cancer screeing is up-to-date. You last pap smear was completed in 2022. Continue screening at the recommendation of your primary care provider and/or senior manager creative services. Lung: Based upon your tobacco use history [...] as you have been following with your farm or ranch animal caretaker/hotel recreational facilities manager on a routine basis. Please continue [...] - recommend patient to be evaluated by [employer] T[employer] SERVICE SPRAY SUPERVISOR also recommended adding on ensure with each [...] you for participating in [facility]. We look forward to seeing you at your next encounter. Please feel free to contact us with any additional questions or concerns. Sincerely, Janell Hebert, DO [facility] CHIEF COMPLAINT: Beena Diaz presents to [facility] for her initial examination. HISTORY OF PRESENT ILLNESS: Beena Diaz presents to [facility] for her initial examination. She lists her [...] bili, LDH Elevated Creatinine 0.74 02/02> 1.12 04/17>1.24 6.17 - she has had several UTIs [...] chronic heart failure with preserved ejection fraction ([facility]) 02/20/2022 Anxiety Arthritis Asthma Cellulitis of left lower extremity 02/19/2022 COPD (chronic obstructive pulmonary disease) ([facility]) 03/14/2019 Dyslipidemia Esophageal dysphagia 2023 Heart murmur Hypertension Low back pain Open wound of left lower leg 01/20/2022 Parkinson's disease Sepsis due to Staphylococcus aureus ([facility]) 01/17/2022 Tear of right hamstring 07/03/2020 Visual impairment glasses PAST SURGICAL HISTORY: Past Surgical History: Procedure Laterality Date AUGMENTATION MAMMAPLASTY 11/09/2018 silicone COLONOSCOPY 10/20/2015 Rept 10 yrs ESOPHAGOGASTRODUODENOSCOPY with biopsies and dilatioin N/A 05/24/2024 Performed by Colleen Russell MD at [facility] OTHER SURGICAL HISTORY spinal pain shot FAMILY [...] due to Parkinson's, dyskinesias Beena works with boxing trainer:no. Sleep: Has a history of chronic [...] 189 >=140 mg/dL Final Test Performed by: [place] [address] [employer]Th Grade Social Studies Teacher: Sam Dukes Ph.D.; CLIA# [id number] APOLIPOPROTEIN B 04/25/2025 66 mg/dL Final REFERENCE VALUE Desirable: <90 Above Desirable: 90-99 Borderline high: 100-119 High: 120-139 Very high: > or = 140 Test Performed by: [place] [address] 7Th Grade Social Studies Teacher: Sam Dukes Ph.D.; CLIA# [id number] BILIRUBIN,DIRECT 04/25/2025 0.3 <=0.4 mg/dL Final WBC [...] mg/dL Final METHOD TRACEABLE TO IDMS STANDARD GLUCOSE 04/25/2025 98 65 - 99 [...] developed and its performance characteristics determined by [facility] in a manner consistent with CLIA requirements. This test has not been cleared or approved by the U.S. Food and Drug Administration. Test Performed by: [facility] [address] [place] [address] 7Th Grade Social Studies Teacher: Sam Dukes Ph.D.; CLIA# [id number] ESR, Erythrocyte Sedimentation Rate 04/25/2025 67 (H) [...] infection suspected, recommend repeat testing (>2 months). Trnoee-rf-xqcctb ratio is <1.0. HS CRP 04/25/2025 0.020 0.000 - 0.744 mg/dL Final HOMOCYSTEINE 04/25/2025 36.45 (H) 3.36 - 20.44 umol/L Final IGFBP-3 04/25/2025 4.9 2.8 - 5.7 mcg/mL Final Test Performed by: [facility] [address] [place] [address] 7Th Grade Social Studies Teacher: Sam Dukes Ph.D.; CLIA# [id number] INSULIN 04/25/2025 2.24 1.00 - 23.00 uIU/mL [...] considered a risk enhancing factor by the [employer] [employer]. This test has been modified from the safety risk lead's instructions. Its performance characteristics were determined by [facility] in a manner consistent with CLIA requirements. This test has not been cleared or approved by the U.S. Food and Drug Administration. Test Performed by: [facility] - [address] [address] 7Th Grade Social Studies Teacher: Sam Dukes Ph.D.; CLIA# [id number] LUTEINIZING HORMONE 04/25/2025 0.9 mIU/mL Final MAGNESIUM [...] Luteal: 5.2-18.6 ng/ml [place]: <0.1-0.8 ng/ml -- PROLACTIN 04/25/2025 1.0 (L) 2.7 - 19.6 [...] name Result Flag Units RefIntvl Testosterone by Nurse Examiner 13 ng/dL 5-32 REFERENCE INTERVAL: Testosterone by Nurse Examiner Females Premenopausal 9-55 ng/dL Postmenopausal 5-32 ng/dL INTERPRETIVE INFORMATION: Testosterone by Nurse Examiner Free or bioavailable testosterone measurements may provide supportive information. For individuals on testosterone-suppressing hormone therapies (e.g., antiandrogens or estrogens), refer to cisgender female reference intervals. For a complete set of all established reference intervals, refer to [facility] [place]/Tests/Pub/[id number]. This test was developed and its performance characteristics determined by [facility]. It has not been cleared or approved by the US Food and Drug Administration. This test was performed in a CLIA certified laboratory and is intended for clinical purposes. Sex Hormone Binding Globulin 65 nmol/L 17-125 REFERENCE INTERVAL: Sex Hormone Binding Globulin Access complete set of age- and/or gender-specific reference intervals for this test in the [facility] Directory ([facility]). Testosterone, Free by Nurse Examiner 1.4 pg/mL 0.6-3.8 INTERPRETIVE INFORMATION: Testosterone, Free by Nurse Examiner Free testosterone concentration is calculated using total testosterone (measured by mass spectrometry) and the binding constant of testosterone and sex hormone-binding globulin (SHBG). For individuals on testosterone-suppressing hormone therapies (e.g., antiandrogens or estrogens), refer to cisgender female reference intervals. For a complete set of all established reference intervals, refer to [facility]/Tests/Pub/[id number]. This test was developed and its performance characteristics determined by [facility]. It has not been cleared or approved by the US Food and Drug Administration. This test was performed in a CLIA certified laboratory and is intended for clinical purposes. Performed By: [facility] [address] [place] [address] Audio/Visual Manager: Kwame Marion MD, PhD CLIA Number: [id number] Admission on 04/17/2025, Discharged on 04/17/2025 Component [...] - 1.00 mg/dL Final METHOD TRACEABLE TO [facility] STANDARD GLUCOSE 04/17/2025 112 (H) 65 - [...] - 2.0 mmol/L Final POC Urine Specific [place] 04/17/2025 1.015 1.010, 1.015, 1.020, 1.025 Final [...] Kramer MD on 04/25/2025 1:34 PM MR Álvarez cardiac Result Date: 04/25/2025 Narrative: MR WAITERIRishi CARDIAC CLINICAL INFORMATION: Health care maintenance. Health [...] noncardiac chest findings. Orin Bradford, Chiki Navarrete., Larisa Davidson. et al. Reference ranges (?normal values?) for cardiovascular magnetic resonance (CMR) in adults and children: 2020 update. J Cardiovasc Magn Reson 22, 87 (2020). https://doi.org/10.1186/[email or web address] 83-3 Finalized by Ashok Kramer MD on 04/25/2025 1:30 PM MR [facility] Result Date: 04/25/2025 Narrative: MR [facility] NEURO CLINICAL INFORMATION: Health care maintenance TECHNIQUE: Multiplanar multisequence MR imaging of the brain and [place] of [place] was performed on a 3 [place] superconducting Siemens unit, without intravenous contrast. Whole-body multisequence screening MRI performed without contrast, selective interpretation of the neck portions; remaining chest, abdomen, and pelvis is reported separately. Volume rendered 3-D post processed reformatted images were generated at an independent workstation, with NeuroQuant automated segmentation analysis, to further define anatomy [...] thecal sac stenosis at C5-C6. IMPRESSION: * Jcga-ry-unjngnes burden white matter FLAIR hyperintensities, most often seen in the setting of chronic microvascular ischemia. * Unremarkable tyonek of Garrido MRA. * Several brain parenchymal [...] detection for pulmonary nodules was performed utilizing Chimeros software. FINDINGS: Comparison: CT dated 01/04/2019. Nodule [...] Your body composition was completed today by InBody. Your InBody Score was 34. Your total [...] the resident's note. documented in this encounter [facility] 04-25-2025 History of Present illness Narrative Images from the original note were not included. [facility] Physical Medicine and Rehabilitation [place] [id number] [facility], [address] [place] [address] * Patient: Beena Diaz Date of : [...] physician Physical Therapy: daily hep and stretches Rehab Office Coordinator: No Pain Management: Injections & Medication Prior [...] chronic heart failure with preserved ejection fraction ([facility]) 02/20/2022 Anxiety Arthritis Asthma Cellulitis of left lower extremity 02/19/2022 COPD (chronic obstructive pulmonary disease) ([facility]) 03/14/2019 Dyslipidemia Esophageal dysphagia 2023 Heart murmur Hypertension Low back pain Open wound of left lower leg 01/20/2022 Parkinson's disease Sepsis due to Staphylococcus aureus ([facility]) 01/17/2022 Tear of right hamstring 07/03/2020 Visual impairment glasses Past Surgical History: Procedure Laterality Date AUGMENTATION MAMMAPLASTY 11/09/2018 silicone COLONOSCOPY 10/20/2015 Rept 10 yrs ESOPHAGOGASTRODUODENOSCOPY with biopsies and dilatioin N/A 05/24/2024 Performed by Colleen Russell MD at [facility] OTHER SURGICAL HISTORY spinal pain [...] This note was completed using a voice photographers' model system. Every effort was made to ensure accuracy. However, inadvertent computerized photographers' model errors may be present. Please contact author for any clarification. CIARRA Hernandez 04/25/25 1300 documented in this encounter [facility] 04-11-2025 History of Present illness Narrative Beenadirk Diaz Date of visit: 04/11/2025 Date of : 1950 Age: 74 y.o. Patient Active Problem List Diagnosis Chronic bilateral low back pain without sciatica Swelling of right hand Menopause Decreased body height Parkinson's disease ([facility]) Hypertension Mixed hyperlipidemia Lumbar degenerative disc disease Osteoarthritis of facet joint of lumbar spine COPD (chronic obstructive pulmonary disease) ([facility]) Tear of right hamstring Right rotator cuff tear arthropathy Livedo reticularis Oral lesion Chronic heart failure with preserved ejection fraction ([facility]) Vasovagal episode Nonrheumatic mitral valve regurgitation Chronic [...] chronic heart failure with preserved ejection fraction ([facility]) 02/20/2022 Anxiety Arthritis Asthma Cellulitis of left lower extremity 02/19/2022 COPD (chronic obstructive pulmonary disease) ([facility]) 03/14/2019 Dyslipidemia Esophageal dysphagia 2023 Heart murmur Hypertension Low back pain Open wound of left lower leg 01/20/2022 Parkinson's disease Sepsis due to Staphylococcus aureus ([facility]) 01/17/2022 Tear of right hamstring 07/03/2020 Visual impairment glasses No data recorded No data recorded No data recorded Past Surgical History: Procedure Laterality Date AUGMENTATION MAMMAPLASTY 11/09/2018 silicone COLONOSCOPY 10/20/2015 Rept 10 yrs ESOPHAGOGASTRODUODENOSCOPY with biopsies and dilatioin N/A 05/24/2024 Performed by Colleen Russell MD at [facility] OTHER SURGICAL HISTORY spinal pain [...] Resource Strain: Low Risk (06/17/2024) Received from [employer] Resource Strain How hard is it [...] Transportation Needs: Low Risk (06/17/2024) Received from [employer] Transportation Needs In the past 12 months, has lack of reliable transportation kept you from medical appointments, meetings, work or from getting things needed for daily living?: No Physical Activity: Inactive (06/17/2024) Received from [employer] Exercise Vital Sign Days of Exercise per Week: 0 days Minutes of Exercise per Session: 0 min Stress: Low Risk (06/17/2024) Received from [employer] Stress Stress means a situation in which a person feels tense, restless, nervous, or anxious, or is unable to sleep at night because his or her mind is troubled all the time. Do you feel this kind of stre...: A little bit Social Connections: Low Risk (06/17/2024) Received from [facility] [employer]ctions If for any reason you need help with activities of daily living such as bathing, preparing meals, shopping, managing finances, etc., do you get the help that you need?: I don't need any help How often do you feel lonely or isolated from those around you?: Rarely Interpersonal Safety: Unknown (12/31/2023) Received from [facility] Safety & Environment Fear of Current or Ex-Partner: Not on file Emotionally Abused: Not on file Physically Abused: Not on file Sexually Abused: Not on file Physically or Sexually Abused: Not on file Housing Instability: Low Risk (06/16/2024) Received from [facility] [employer] Housing Stability What is your living situation [...] PCP: CIARRA OSEI Referring Physician: CIARRA Osei [facility], [address] [place] [address] documented in this encounter [facility] 03-17-2025 Miscellaneous Notes Prior authorization for Azilect denied. Supervisor Grower to complete Appeal letter. Faxed appeal letter to [facility]. Confirmation fax received. documented in this encounter [facility] 03-17-2025 Telephone encounter Note Prior authorization for Azilect denied. Supervisor Grower to complete Appeal letter. Faxed appeal letter to [facility]. Confirmation fax received. [facility] 03-16-2025 Miscellaneous Notes Received letter that PA for ordered Echo was denied. Appeal is available. Letter made and faxed to appeal dept at: [facility] at [phone] documented in this encounter [facility] 03-16-2025 Telephone encounter Note Received letter that PA for ordered Echo was denied. Appeal is available. Letter made and faxed to appeal dept at: [facility] at [phone] [facility] 03-07-2025 Miscellaneous Notes Supervisor Grower contacted patient per Dr. Silva request regarding her worsening symptoms that patient had reported to her Coke Handling Supervisor. Patient stated that she is taking her [...] early from taking 3 caps per day Supervisor Grower contacted patient and reviewed physician's recommendations. Patient verbalized understanding and will contact clinic next week to update on status. [facility] Telephone encounter Note Supervisor Grower contacted patient per Dr. Silva request regarding her worsening symptoms that patient had reported to her Coke Handling Supervisor. Patient stated that she is taking her [...] would like to have dosing times adjusted. [email or web address] 03-07-2025 Telephone encounter Note Does she feel like she needs a dose before 1pm as well as needing something around 6pm? If so how much before 1pm? Is she having any hallucinations or otherwise feeling hse has side effects to crexont? [facility] 03-07-2025 Telephone encounter Note Patient stated that she is good from 6:30 am - 1 Pm dose. She said she would like something just at 6 pm sine she has wearing off at that time. Patient denies any side effects and no hallucinations. [facility] 03-07-2025 Telephone encounter Note Ask her to try taking another 1 capsule of crexont at 6pm. I sent a new script to her pharmacy so she will not run out too early from taking 3 caps per day [facility] 03-07-2025 Telephone encounter Note Supervisor Grower contacted patient and reviewed physician's recommendations. Patient verbalized understanding and will contact clinic next week to update on status. T [facility] 03-06-2025 History of Present illness Narrative Images from the original note were not included. ADULT RHEUMATOLOGY CLINIC NOTE [address] [phone] Patient Name: Beena Diaz Subjective Reason for [...] and dexterity with fine motor tasks and seo coordinator strength. She also notices discomfort in the bilateral feet as well as the ankles. 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 Family Hx: -noncontributory Interval History: The patient [...] hand Menopause Decreased body height Parkinson's disease ([facility]) Hypertension Mixed hyperlipidemia Lumbar degenerative disc disease Osteoarthritis of facet joint of lumbar spine COPD (chronic obstructive pulmonary disease) ([facility]) Tear of right hamstring Right rotator cuff tear arthropathy Livedo reticularis Oral lesion Chronic heart failure with preserved ejection fraction ([facility]) Vasovagal episode Nonrheumatic mitral valve regurgitation Chronic pain syndrome Neck pain, chronic Cervical radiculopathy reviewed. Past Surgical History: Procedure Laterality Date AUGMENTATION MAMMAPLASTY 11/09/2018 silicone COLONOSCOPY 10/20/2015 Rept 10 yrs ESOPHAGOGASTRODUODENOSCOPY with biopsies and dilatioin N/A 05/24/2024 Performed by Colleen Russell MD at [facility] OTHER SURGICAL HISTORY spinal pain shot reviewed. Social History Tobacco Use Smoking status: Former Current packs/day: 0.00 Types: Cigarettes Quit date: 2017 Years since quittin.3 Smokeless tobacco: Never Vaping Use Vaping status: Never Used Substance Use Topics Alcohol use: Yes Alcohol/week: 7.0 standard drinks of alcohol Types: 7 Glasses of wine per week Comment: daily Drug use: No Comment: THC gummies reviewed. Past Medical History: Diagnosis Date Acute on chronic heart failure with preserved ejection fraction ([facility]) 02/20/2022 Anxiety Arthritis Asthma Cellulitis of left lower extremity 02/19/2022 COPD (chronic obstructive pulmonary disease) ([facility]) 03/14/2019 Dyslipidemia Esophageal dysphagia 2023 Heart murmur Hypertension Low back pain Open wound of left lower leg 01/20/2022 Parkinson's disease Sepsis due to Staphylococcus aureus ([facility]) 01/17/2022 Tear of right hamstring 07/03/2020 Visual [...] EMR. Assessment / Recommendations 1. Inflammatory polyarthritis ([facility]) 2. Seronegative rheumatoid arthritis ([facility]) 3. Medication monitoring encounter 4. Neck pain [...] Expiration Date: 03/06/2026 Release to patient via [employer] SARLt?: Immediate [1] Erythrocyte Sedimentation Rate (ESR) Standing Status: Future Expiration Date: 03/06/2026 Release to patient via [employer] SARLt?: Immediate [1] Liver panel Standing Status: Future Expiration Date: 03/06/2026 Release to patient via clipkithart?: Immediate [1] CBC auto differential Standing Status: Future Expiration Date: 03/06/2026 Release to patient via clipkithart?: Immediate [1] Creatinine includes GFR, serum Standing Status: Future Expiration Date: 03/06/2026 Release to patient via [employer] SARLt?: Immediate [1] -we will proceed with med monitoring labs every 3 months --- next set of labs around the last of April or week of May Treatment Plan: -increase MTX to 8 pills weekly -continue 1 mg daily folic acid -communicated with PM&R provider (Ofelia Pierce CNP) via [employer] secure chat to let her know that the patient found benefit from tramadol but would like to be given a more consistent supply of the medication so she can avoid going to the pharmacy frequently -communicated with her Neurology provider via [employer] secure chat given the patient and her daughters concerns about side effects/worsening symptoms after switching to Crexont Consults/Referrals: -No new referrals at this time Health Maintenance: -The patient should continue to follow with their PCP for age and risk factor appropriate cancer screening and immunizations. Follow-up: -3 months Mariajose Clemente MD, MPH [facility] [address] [place] [address] Total noaa-rj-erof time was 45 minutes with more than [...] for your understanding. documented in this encounter [facility] 03-06-2025 Instructions Mariajose Clemente MD MPH - 03/06/2025 12:00 PM EDT Medication Instructions: -Please increase methotrexate to 8 pills once weekly -Continue to take 1 mg of daily folic acid -We will plan to have you update your blood work at the end of April or first week of May. Lab orders are already in your chart. documented in this encounter [facility] 02-28-2025 Miscellaneous Notes Prior authorization initiated for Azilect 1 mg tablet with [place]: [id number]. Supervisor Grower to initiate an appeal for the medication Azilect 1 mg tablet. Appeal letter faxed to [facility]. Confirmation fax received. documented in this encounter [facility] 02-28-2025 Telephone encounter Note Prior authorization initiated for Azilect 1 mg tablet with [place]: [id number]. [facility] 02-28-2025 Telephone encounter Note Supervisor Grower to initiate an appeal for the medication Azilect 1 mg tablet. Appeal letter faxed to [facility]. Confirmation fax received. [facility] 02-21-2025 History of Present illness Narrative Images [...] chronic heart failure with preserved ejection fraction (CMS-HCC) 02/20/2022 Anxiety Arthritis Asthma Cellulitis of left lower extremity 02/19/2022 COPD (chronic obstructive pulmonary disease) ([facility]) 03/14/2019 Dyslipidemia Esophageal dysphagia 2023 Heart murmur Hypertension Low back pain Open wound of left lower leg 01/20/2022 Parkinson's disease Sepsis due to Staphylococcus aureus ([facility]) 01/17/2022 Tear of right hamstring 07/03/2020 Visual impairment glasses Past Surgical History: Procedure Laterality Date AUGMENTATION MAMMAPLASTY 11/09/2018 silicone COLONOSCOPY 10/20/2015 Rept 10 yrs ESOPHAGOGASTRODUODENOSCOPY with biopsies and dilatioin N/A 05/24/2024 Performed by Colleen Russell MD at [facility] OTHER SURGICAL HISTORY spinal pain [...] nursing note reviewed. Exam conducted with a acid patroller present. Constitutional: Appearance: She is well-developed. HENT: [...] - 1.00 mg/dL Final METHOD TRACEABLE TO IDPR STANDARD Glucose 02/02/2025 88 65 - 99 [...] Desirable HDL >60 mg/dL - Negative Risk ------- VLDL 02/02/2025 11 0 - 30 mg/dL Final LDL (calc) 02/02/2025 64 <130 mg/dL Final Comment: LDL <100 mg/dL - Desirable LDL >160 mg/dL - High Risk ------- Cholesterol:HDL Ratio 02/02/2025 1.9 1.0 - 5.0 [...] using HEp-2 cellular substrate. Test Performed by: [place] [address] [employer] Grade [employer] Teacher: Sam Dukes Ph.D.; CLIA# [id number] Ss-a/ro antibodies IgG 11/29/2024 <0.2 <1.0 AI Final Ss-b/la antibodies IgG 11/29/2024 <0.2 <1.0 AI Final Anti-zapata AB IgG 11/29/2024 <0.2 <1.0 AI Final Anti REHAB DIRECTOR 11/29/2024 0.2 <1.0 AI Final Scleroderma scl-70 11/29/2024 <0.2 <1.0 AI Final Anti DENIS-1 11/29/2024 <0.2 <1.0 AI Final dsDNA Ab by [facility] IFA, IgG, S 11/29/2024 Negative Negative Final [facility] Interpretation 11/29/2024 See Note Final Comment: NOTE Testing for dsDNA antibody by [facility] IFA was negative. Test Performed by: [place] [address] [employer] Grade Social Studies Teacher: Sam Dukes Ph.D.; CLIA# [id number] QuantiFERON-Tb Gold Plus Result 11/29/2024 Indeterminate (A) [...] IU/mL Final Comment: NOTE Test Performed by: [facility] [address] [place] [address] 7Th Grade Social Studies Teacher: Sam Dukes Ph.D.; CLIA# [id number] Hepatitis B Surface Ag 11/29/2024 Non-Reactive Non-Reactive^Non-Reactive Final NEW TEST METHOD Hep B Core IgM Ab 11/29/2024 Non-Reactive Non-Reactive^Non-Reactive Final NEW TEST METHOD Hep A IgM Ab 11/29/2024 Non-Reactive Non-Reactive^Non-Reactive Final NEW TEST METHOD Anti HCV w/ PCR reflex 11/29/2024 Non-Reactive Non-Reactive^Non-Reactive Final Comment: NEW TEST METHOD NOTE If recent infection suspected, recommend repeat testing (>2 months). Gzkznj-to-eedtxa ratio is <1.00. White Blood Cells 11/29/2024 [...] - 1.00 mg/dL Final METHOD TRACEABLE TO [facility] STANDARD eGFR (CKD-EPI)non-race dependent 11/29/2024 [...] heart failure with preserved ejection fraction (CMS-HCC) Chronic obstructive pulmonary disease, unspecified COPD type (CMS-HCC) Parkinson's disease (CMS-HCC) Mixed hyperlipidemia Complication associated with silicone gel-filled breast implant - MR bilateral breast with and without contrast with CAD; Future Concern for change in appearance of left breast implant, ebena noticed two weeks ago. Breast MRI ordered. Follows with Dr. Menendez, cardiology. Follows with Dr. Silva, neurology. Follows with Dr. Mundo hall, Rheumatology. Follows with Dr. Woodall and Ofelia [...] Osei 02/23/25 1224 documented in this encounter [facility] [employer] 02-21-2025 Instructions CIARRA Osei - 02/21/2025 10:00 [...] services: Not applicable documented in this encounter [facility] [employer] [facility] 02-13-2025 History of Present illness Narrative [...] pain with radicular symptoms PHYSICIAN: Isidro Woodall, DO MEDICATIONS INJECTED: 10mg Dexamethasone + 0.3 [...] tolerated after 48hours documented in this encounter [facility] 02-13-2025 Instructions Rosy Freed RN - 02/13/2025 [...] Physical Medicine and Rehabilitation office immediately at [phone]. Diabetic Patients: In the case of steroid [...] or bladder control. documented in this encounter [facility] 01-30-2025 History of Present illness Narrative CERVICAL [...] tolerated after 48hours [facility] Instructions Rosy Freed RN - 01/30/2025 2:09 PM EDT EPIDURAL STEROID INJECTION DISCHARGE INSTRUCTIONS: You have received an epidural steroid injection (ZEEKIEL). Steroids are used to reduce inflammation and [...] Physical Medicine and Rehabilitation office immediately at [phone]. Diabetic Patients: In the case of steroid [...] or bladder control. documented in this encounter [facility] 01-27-2025 Miscellaneous Notes PA request for Crexont pending via CMM with [employer] # [id number] Request Reference Number: [id number]. CREXONT CAP 70-280MG is approved through 01/27/2026 Noted. documented in this encounter [facility] 01-27-2025 Telephone encounter Note PA request for Crexont pending via CMM with york # [id number] [facility] 01-27-2025 Telephone encounter Note Request Reference Number: [id number]. CREXONT CAP 70-280MG is approved through 01/27/2026 [facility] 01-27-2025 Telephone encounter Note Noted. [facility] 01-26-2025 History of Present illness Narrative Images from the original note were not included. [address] [place] [address] Patient: Beena Diaz Date of : 1950 Encounter Date: 01/26/2025 Patient Care Team: Brenden Caba APRN-JONEL as PCP - General Lilia Cortez MD as Consulting Physician (Dermatology) SOPHY Garner as Physician Grocery Bagger (Gastroenterology) Ty Branham MD as Referring Physician [...] dose of Pramipexole. We discussed transitioning to [facility] for further management in order to balance [...] hallucinations- but due to taking incorrect doses, ambke trazodone Last physical/speech therapy: PT summer 2020 [...] chronic heart failure with preserved ejection fraction ([facility]) 02/20/2022 Anxiety Arthritis Asthma Cellulitis of left lower extremity 02/19/2022 COPD (chronic obstructive pulmonary disease) ([facility]) 03/14/2019 Dyslipidemia Esophageal dysphagia 2023 Heart murmur Hypertension Low back pain Open wound of left lower leg 01/20/2022 Parkinson's disease Sepsis due to Staphylococcus aureus ([facility]) 01/17/2022 Tear of right hamstring 07/03/2020 Visual impairment glasses Family History Problem Relation Age of Onset Diabetes Father Heart disease Father CABG at age 65 Colon cancer Neg Hx Anesthesia problems Neg Hx Past Surgical History: Procedure Laterality Date AUGMENTATION MAMMAPLASTY 11/09/2018 silicone COLONOSCOPY 10/20/2015 Rept 10 yrs ESOPHAGOGASTRODUODENOSCOPY with biopsies and dilatioin N/A 05/24/2024 Performed by Colleen Russell MD at [facility] OTHER SURGICAL HISTORY spinal pain shot Current [...] for your understanding. [facility] Instructions Trice Silva MD - 01/26/2025 [...] medications the same. documented [facility] Miscellaneous Notes Prior Authorization/Notification is not required for the requested service(s). [facility] member's plan does not currently require a prior authorization for these services. If you have general questions about the prior authorization requirements, please call us at [phone] or visit L3 > Clinician Resources > Advance and Admission Notification Requirements. The number above acknowledges your notification. Please write this number down for future reference. Notification is not a guarantee of coverage or payment. Decision ID #: [id number] The number above acknowledges your inquiry and our response. Please write this number down and refer to it for future inquiries. Coverage and payment for an item or service is governed by the member's benefit plan document, and, if applicable, the provider's participation agreement with the Health Plan. Patient details keyboard_arrow_up Patient name BEENA DIAZ Member number [id number] Group number [id number] Product POS Relationship Spouse Effective date 11/09/2024 Termination date 11/08/2025 Insurance type Commercial Verbal language preference - Written language preference - info A future timeline may be available for this member. For future coverage please call the telephone number located on the back of the member's Medical ID card. Submitting provider details keyboard_arrow_up Name Isidro Woodall Tax ID number [id number] Address [address], [place] [address] Status In network Service details keyboard_arrow_up Place [...] search. Name ISIDRO WOODALL Tax ID number [id number] Address [address], [place] [address] T. [phone] Status In network Diagnosis code details keyboard_arrow_up Code pointer Primary Diagnosis code M54.12 Description Radiculopathy, cervical region Procedure code details keyboard_arrow_up Code pointer Primary procedure code 83347 Description Injection(s), anesthetic agent(s) and/or steroid; transforaminal epidural, with imaging guidance (fluoroscopy or CT), cervical or thoracic, single level Selected servicing provider The provider who is providing the service being requested. Servicing provider name ISIDRO WOODALL Tax ID number [id number] Address [address], [place] [address] T. [phone] Status In network Service Details Pain Management Expected from date info 01/24/2025 Expected to date info 04/08/2025 Count info 2 Standard of Measure info Visits Frequency info Time(s) Total info [address] encounter [facility] 01-24-2025 Telephone encounter Note Prior Authorization/Notification is not required for the requested service(s). This [facility] Commercial member's plan does not currently require a prior authorization for these services. If you have general questions about the prior authorization requirements, please call us at [phone] or visit L3 > Clinician Resources > Advance and Admission Notification Requirements. The number above acknowledges your notification. Please write this number down for future reference. Notification is not a guarantee of coverage or payment. Decision ID #: [id number] The number above acknowledges your inquiry and our response. Please write this number down and refer to it for future inquiries. Coverage and payment for an item or service is governed by the member's benefit plan document, and, if applicable, the provider's participation agreement with the Health Plan. Patient details keyboard_arrow_up Patient name BEENA DIAZ Member number [id number] Group number [id number] Product POS Relationship Spouse Effective date 11/09/2024 Termination date 11/08/2025 Insurance type Commercial Verbal language preference - Written language preference - info A future timeline may be available for this member. For future coverage please call the telephone number located on the back of the member's Medical ID card. Submitting provider details keyboard_arrow_up Name Isidro Woodall Tax ID number [id number] Address [address] [place] [address] [address], [place] [address] Status In network Service details keyboard_arrow_up Place [...] search. Name ISIDRO WOODALL Tax ID number [id number] Address [address] [place] [address] [address], [place] [address] T. [phone] Status In network Diagnosis code details keyboard_arrow_up Code pointer Primary Diagnosis code M54.12 Description Radiculopathy, cervical region Procedure code details keyboard_arrow_up Code pointer Primary procedure code 15714 Description Injection(s), anesthetic agent(s) and/or steroid; transforaminal epidural, with imaging guidance (fluoroscopy or CT), cervical or thoracic, single level Selected servicing provider The provider who is providing the service being requested. Servicing provider name ISIDRO WOODALL Tax ID number [id number] Address [address] [facility] [address], [place] [address] T. [phone] Status In network Service Details Pain Management Expected from date info 01/24/2025 Expected to date info 04/08/2025 Count info 2 Standard of Measure info Visits Frequency info Time(s) Total info 2 [facility] 01-23-2025 Miscellaneous Notes Images from the original note were not included. Patient [phone] stated that they would like a refill on eszopiclone 2 mg TAKE 1 TABLET BY MOUTH immediately before bedtime medication and patient would need more than 30 pills due to going to [facility] for the summer . Refill request : eszopiclone (LUNESTA) 2 mg tablet Last Filled : 12/09/2024 Last OV : 06/29/2024 Next OV : 01/26/2025 Reviewed by NURSE ADVOCATE. Pend for signature. Can you call in refill as ordered above? I cannot sign electronically while out of the office Supervisor Grower phoned in prescription to pharmacy. documented in this encounter [facility] 01-23-2025 Telephone encounter Note Images from the original note were not included. Patient [phone] stated that they would like a refill on eszopiclone 2 mg TAKE 1 TABLET BY MOUTH immediately before bedtime medication and patient would need more than 30 pills due to going to [facility] for the summer . [facility] 01-23-2025 Telephone encounter Note Refill request : eszopiclone (LUNESTA) 2 mg tablet Last Filled : 12/09/2024 Last OV : 06/29/2024 Next OV : 01/26/2025 Reviewed by NURSE ADVOCATE. Pend for signature. [facility] 01-23-2025 Telephone encounter Note Can you call in refill as ordered above? I cannot sign electronically while out of the office [facility] 01-23-2025 Telephone encounter Note Supervisor Grower phoned in prescription to pharmacy. [facility] 01-23-2025 Miscellaneous Notes Pt called after her [...] course of action. documented in this encounter [facility] 01-23-2025 Telephone encounter Note Pt called after her appointment with Dr. Hamlin. Per his notes, Dr. Hamlin does not feels she is a surgical candidate at this time. Would like pt to be treated for occipital neuralgia . Please see his 01/23/25 office notes. Rt C3-4 TFESI on 01/30/25 Lt C3-4 TFESI 02/13/25 [facility] 01-23-2025 Telephone encounter Note I would recommend proceeding with epidural injections, although, we can absolutely have her scheduled for occipital nerve blocks as well if epidurals do not control her symptoms. [facility] 01-23-2025 Telephone encounter Note Duly noted, we will wait for her follow up to determine the next course of action. [facility] 01-23-2025 History of Present illness Narrative Images from the original note were not included. [facility] [address] [place] [address], [place] [address] * CHART NOTE ? 01/23/2025 Patient: Beena Diaz [id number] Physician: Yusra Hamlin MD, FACS CHIEF COMPLAINT [...] follow-up with the pain management doctors at [facility] for facet injections and possible [...] information and is aware she has a Rep My Chart option to review the medical file I have created. PLAN The patient contact my office with any new concerns problems or issues Sincerely, Electronically signed by: Yusra Hamlin MD, [facility] This note was created with the assistance of a speech recognition program with the goal of generating a timely record of the patient encounter. Inadvertent computerized photographers' model errors related to syntax, spelling, homophones, and/or inaudibility may be present. [facility] Instructions Zen Leahy - 01/23/2025 10:30 AM EDT recommends Right Occipital neuralgia pain management Cervical facet injections follow up [place] Pt will call if she needs referral to pain mgmt RT documented [facility] this [facility] 12-28-2024 Miscellaneous Notes Patient would like to know why we referred her to spine care Spoke with patient and explained to her and she states that she would like to be referred to Dr valerio at [facility]. Referral placed and faxed to [phone] per patient request documented in this encounter [facility] 12-28-2024 Telephone encounter Note Patient would like to know why we referred her to spine care [facility] 12-28-2024 Telephone encounter Note Spoke with patient and explained to her and she states that she would like to be referred to Dr valerio at [facility]. Referral placed and faxed to [phone] per patient request [facility] 12-23-2024 Miscellaneous Notes Patient states that she was recently started on Methotrexate and with the medication came a warning that this should not be taken with pantoprazole. She asks if a different medication needs to be sent instead? Thank you Would advice patient contact the prescribing provider of her methotrexate documented in this encounter [facility] 12-23-2024 Telephone encounter Note Patient states that she was recently started on Methotrexate and with the medication came a warning that this should not be taken with pantoprazole. She asks if a different medication needs to be sent instead? Thank you [facility] 12-23-2024 Telephone encounter Note Would advice patient contact the prescribing provider of her methotrexate [employer] [facility] Work Phone: 12-06-2024 History of Present illness Narrative Associated Order(s): tpi Post-Procedure Diagnose(s): Neck pain, chronic Images from the original note were not included. [facility] [address], [address] [place] [address] * Patient: Beena Diaz Date of : [...] chronic heart failure with preserved ejection fraction ([facility]) 02/20/2022 Anxiety Arthritis Asthma Cellulitis of left lower extremity 02/19/2022 COPD (chronic obstructive pulmonary disease) ([facility]) 03/14/2019 Dyslipidemia Esophageal dysphagia 2023 Hypertension Open wound of left lower leg 01/20/2022 Parkinson's disease Sepsis due to Staphylococcus aureus ([facility]) 01/17/2022 Tear of right hamstring 07/03/2020 Visual impairment glasses Past Surgical History: Procedure Laterality Date AUGMENTATION MAMMAPLASTY 11/09/2018 silicone COLONOSCOPY 10/20/2015 Rept 10 yrs ESOPHAGOGASTRODUODENOSCOPY with biopsies and dilatioin N/A 05/24/2024 Performed by Colleen Russell MD at [facility] OTHER SURGICAL HISTORY spinal pain shot Family History Problem Relation Age of Onset Heart disease Father CABG at age 65 Colon cancer Neg Hx Anesthesia problems Neg Hx Tobacco History: Social History Tobacco Use Smoking Status Former Current packs/day: 0.00 Types: Cigarettes Quit date: 2018 Years since quittin.0 Smokeless Tobacco Never (If [...] This note was completed using a voice photographers' model system. Every effort was made to ensure accuracy. However, inadvertent computerized photographers' model errors may be present. Please contact author for any clarification. 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 She also notices discomfort in the bilateral feet as well as the ankles. 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 Family Hx: -noncontributory Interval History: The patient [...] hand Menopause Decreased body height Parkinson's disease ([facility]) Hypertension Mixed hyperlipidemia Lumbar degenerative disc disease Osteoarthritis of facet joint of lumbar spine COPD (chronic obstructive pulmonary disease) ([facility]) Tear of right hamstring Right rotator cuff tear arthropathy Livedo reticularis Oral lesion Abdominal bloating Chronic heart failure with preserved ejection fraction ([facility]) Vasovagal episode Nonrheumatic mitral valve regurgitation reviewed. Past Surgical History: Procedure Laterality Date AUGMENTATION MAMMAPLASTY 11/09/2018 silicone COLONOSCOPY 10/20/2015 Rept 10 yrs ESOPHAGOGASTRODUODENOSCOPY with biopsies and dilatioin N/A 05/24/2024 Performed by Colleen Russell MD at [facility] OTHER SURGICAL HISTORY spinal pain shot reviewed. [...] chronic heart failure with preserved ejection fraction ([facility]) 02/20/2022 Anxiety Arthritis Asthma Cellulitis of left lower extremity 02/19/2022 COPD (chronic obstructive pulmonary disease) ([facility]) 03/14/2019 Dyslipidemia Esophageal dysphagia 2023 Hypertension Open wound of left lower leg 01/20/2022 Parkinson's disease Sepsis due to Staphylococcus aureus ([facility]) 01/17/2022 Tear of right hamstring 07/03/2020 Visual [...] Follow-up: -3 months Mariajose Clemente MD, MPH [facility] [address] [place] [address] Total qawn-pc-htcp time was 45 minutes with more than [...] for your understanding. documented in this encounter [facility] 12-06-2024 Instructions Mariajose Clemente MD MPH - [...] and tear arthritis) documented in this encounter [facility] Evaluation note Diagnosis Parkinson's disease ([facility]) [facility] Diagnosis Bilateral hand pain Pain in limb [facility] Diagnosis Parkinson's disease ([facility]) Restless leg syndrome Restless legs syndrome (RLS) [facility] Diagnosis Cervical radiculopathy- Primary Brachial neuritis or radiculitis nos Chronic pain syndrome Neck pain, chronic documented [facility] this [facility] Diagnosis Seronegative rheumatoid arthritis ([facility])- Primary Rheumatoid arthritis Neck pain Cervicalgia Muscle tension pain Inflammatory polyarthritis ([facility]) Unspecified inflammatory polyarthropathy Anti-cardiolipin antibody positive Other and unspecified nonspecific immunological findings Raynaud disease without gangrene Primary osteoarthritis involving multiple joints Fibromyalgia Unspecified myalgia and myositis documented [facility] this [facility] Diagnosis Chronic pain syndrome- Primary Neck pain, chronic Cervical radiculopathy Brachial neuritis or radiculitis nos documented in this [facility]* Diagnosis Insomnia due to medical condition Organic insomnia, unspecified documented in this [facility] Diagnosis Restless leg syndrome Restless legs syndrome (RLS) documented [facility] this [facility]* Diagnosis Chronic pain syndrome- Primary Neck pain, chronic Cervical radiculopathy Brachial neuritis or radiculitis nos documented in this [facility]* Diagnosis Cervical radiculopathy- Primary Brachial neuritis or radiculitis nos documented [facility] this [facility]* Diagnosis Restless leg syndrome Restless legs syndrome (RLS) documented [facility] this [facility]* Diagnosis Neck pain- Primary Cervicalgia documented in this [facility]* Diagnosis Cervical spinal stenosis- Primary Spinal stenosis in cervical region Cervical spondylosis Cervical spondylosis without myelopathy Neck pain Cervicalgia documented in this [facility]* Diagnosis Insomnia due to medical condition Organic insomnia, unspecified documented in this [facility]* Diagnosis Parkinson's disease with dyskinesia and fluctuating manifestations ([facility])- Primary Parkinson's disease ([facility]) Insomnia due to medical condition Organic insomnia, unspecified documented [facility] this [facility] Diagnosis Cervical radiculopathy- Primary Brachial neuritis or radiculitis nos documented in this [facility]* Diagnosis Cervical radiculopathy- Primary Brachial neuritis or radiculitis nos documented [facility] this [facility]* Diagnosis Encounter for screening mammogram for malignant neoplasm of breast- Primary documented in this [facility]* Diagnosis Health care maintenance- Primary Primary hypertension Unspecified essential hypertension Chronic heart failure with preserved ejection fraction ([facility]) Chronic obstructive pulmonary disease, unspecified COPD type ([facility]) Parkinson's disease ([facility]) Mixed hyperlipidemia Complication associated with silicone gel-filled breast implant documented in this [facility] Diagnosis Inflammatory polyarthritis ([facility])- Primary Unspecified inflammatory polyarthropathy Seronegative rheumatoid arthritis ([facility]) Rheumatoid arthritis Medication monitoring encounter Encounter for therapeutic drug monitoring Neck pain Cervicalgia documented in this [facility] Diagnosis Parkinson's disease with dyskinesia and fluctuating manifestations ([facility]) documented in this [facility] Diagnosis Mixed hyperlipidemia documented in this [facility] Diagnosis Health care maintenance- Primary documented in this [facility] Diagnosis Health care maintenance- Primary documented in this [facility]* Diagnosis Chronic heart failure with preserved ejection fraction ([facility])- Primary Mixed hyperlipidemia Nonrheumatic mitral valve regurgitation documented in this encounter [facility]* Diagnosis Chronic pain syndrome- Primary Cervical radiculopathy Brachial neuritis or radiculitis nos Neck pain, chronic Chronic bilateral low back pain without sciatica documented in this encounter [facility]* Diagnosis Health care maintenance Dysuria- Primary Frequency of urination Urinary frequency documented in this encounter [facility]* Diagnosis Dehydration- Primary Malnutrition, unspecified type Parkinson's disease ([facility]) documented in this encounter [facility] Diagnosis Health care maintenance- Primary Iron deficiency anemia, unspecified iron deficiency anemia type Weight loss Loss of weight Decreased appetite Anorexia Parkinson's disease ([facility]) Inflammatory polyarthritis ([facility]) Unspecified inflammatory polyarthropathy Primary hypertension Unspecified essential hypertension Chronic heart failure with preserved ejection fraction ([facility]) Insomnia, unspecified type Hyperbilirubinemia Disorders of bilirubin excretion Elevated serum creatinine Other nonspecific findings on examination of blood [facility] Diagnosis Parkinson's disease with dyskinesia and fluctuating manifestations ([facility])- Primary Dysphagia, unspecified type documented [facility]* Diagnosis Parkinson's disease ([facility]) documented in this encounter [facility]* Diagnosis Inflammatory polyarthritis ([facility])- Primary Unspecified inflammatory polyarthropathy Seronegative rheumatoid arthritis ([facility]) Rheumatoid arthritis Primary osteoarthritis involving multiple joints Chronic bilateral low back pain without sciatica Medication monitoring encounter Encounter for therapeutic drug monitoring Neck pain Cervicalgia Muscle tension pain [facility] Diagnosis Wheezing documented in this [facility] Diagnosis Parkinson's disease ([facility]) [facility] this encounter [facility] Diagnosis Cervical radiculopathy- Primary Brachial neuritis or radiculitis nos [facility]* Diagnosis Acute cough- Primary Wheezing Shortness of breath COPD exacerbation ([facility]) Obstructive chronic bronchitis with exacerbation documented in this encounter [facility]* Diagnosis Insomnia due to medical condition Organic insomnia, unspecified REM sleep behavior disorder documented [facility]* Diagnosis Esophageal dysphagia- Primary Dysphagia, pharyngoesophageal phase 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 [facility] [...] FoundNo Family History Records Found Advance Directives No Advanced Directives Records Found Date Activated Date Inactivated Comments 01/17/2022 2:54 PM 01/22/2022 5:04 PM Date Activated Date Inactivated Comments 01/17/2022 2:54 PM 01/22/2022 5:04 PM Additional Source Comments INFORMATION SOURCE (unrecogn ized section and content) DATE CREATED AUTHOR 07/02/2024 [facility] DATE CREATED AUTHOR AUTHOR'S ORGANIZ ATION 07/24/2024 [facility] DATE CREATED AUTHOR AUTHOR'S ORGANIZ ATION 02/12/2025 [facility] DATE CREATED AUTHOR AUTHOR'S ORGANIZ ATION 07/15/2025 [facility] DATE CREATED AUTHOR AUTHOR'S ORGANIZ ATION 07/22/2025 [facility] Reason for Visit (unrecogniz ed section [...] Reason Onset Date Comments Med Refill 06/30/2025 Reason Comments Cough Patient here for luis p cough, difficult breathing and congestion. Patient states that she noticed it 2 weeks ago ad she went to . Since then she says its been getting worse. Reason Onset Date Comments Med Refill 07/14/2025 Reason Comments Follow-up Patient is here toda y for a yearly follow up on esophageal dysphagia. Care Teams (unrecognized sec tion and content) Welt Edge Rounder Relationship Specialty Start Date End Date Brenden Caba APRN-HOTEL CLERK [address] [place] [address], [address] [place] [address] PCP - General 03/19/15 [employer] Edge Rounder Relationship Specialty Start Date End Date Mi Dominguez MD [address] [place] [address], [address] [place] [address] PCP - General 12/01/13 [employer] Edge Rounder Relationship Specialty Start Date End Date Brenden Caba APRN-CNP [address] [facility], [address] [place] [address] PCP - General 03/19/15 Welt Edge Rounder Relationship Specialty Start Date End Date Brenden Caba BILINGUAL LEGAL ASSISTANT-HOTEL CLERK [address] [facility], [address] [place] [address] PCP - General 03/19/15 Welt Edge Rounder Relationship Specialty Start Date End Date Brenden Caba, BILINGUAL LEGAL ASSISTANT-HOTEL CLERK [address] [facility], [address] [place] [address] PCP - General 03/19/15 Welt Edge Rounder Relationship Specialty Start Date End Date Brenden Caba, BILINGUAL LEGAL ASSISTANT-HOTEL CLERK [address] [facility], [address] [place] [address] PCP - General 03/19/15 Welt Edge Rounder Relationship Specialty Start Date End Date Brenden Caba, BILINGUAL LEGAL ASSISTANT-HOTEL CLERK [address] [facility], [address] [place] [address] PCP - General 03/19/15 Welt Edge Rounder Relationship Specialty Start Date End Date Brenden Caba, BILINGUAL LEGAL ASSISTANT-HOTEL CLERK [address] [facility], [address] [place] [address] PCP - General 03/19/15 Welt Edge Rounder Relationship Specialty Start Date End Date Brenden Caba, BILINGUAL LEGAL ASSISTANT-HOTEL CLERK [address] [facility], [address] [place] [address] PCP - General 03/19/15 Welt Edge Rounder Relationship Specialty Start Date End Date Brenden Caba, BILINGUAL LEGAL ASSISTANT-HOTEL CLERK [address] [facility], [address] [place] [address] PCP - General 03/19/15 Welt Edge Rounder Relationship Specialty Start Date End Date Brenden Caba BILINGUAL LEGAL ASSISTANT-HOTEL CLERK [address] [facility], [address] [place] [address] PCP - General 03/19/15 Welt Edge Rounder Relationship Specialty Start Date End Date Brenden Caba, BILINGUAL LEGAL ASSISTANT-HOTEL CLERK [address] [facility], [address] [place] [address] PCP - General 03/19/15 Welt Edge Rounder Relationship Specialty Start Date End Date Brenden Caba, BILINGUAL LEGAL ASSISTANT-HOTEL CLERK [address] [facility], [address] [place] [address] PCP - General 03/19/15 Welt Edge Rounder Relationship Specialty Start Date End Date Brenden Caba, BILINGUAL LEGAL ASSISTANT-HOTEL CLERK [address] [facility], [address] [place] [address] PCP - General 03/19/15 Welt Edge Rounder Relationship Specialty Start Date End Date Brenden Caba, BILINGUAL LEGAL ASSISTANT-HOTEL CLERK [address] [facility], [address] [place] [address] PCP - General 03/19/15 Welt Edge Rounder Relationship Specialty Start Date End Date Brenden Caba, BILINGUAL LEGAL ASSISTANT-HOTEL CLERK [address] [facility], [address] [place] [address] PCP - General 03/19/15 Welt Edge Rounder Relationship Specialty Start Date End Date Brenden Caba, BILINGUAL LEGAL ASSISTANT-HOTEL CLERK [address] [facility], [address] [place] [address] PCP - General 03/19/15 Welt Edge Rounder Relationship Specialty Start Date End Date Brenden Caba, BILINGUAL LEGAL ASSISTANT-HOTEL CLERK [address] [facility], [address] [place] [address] PCP - General 03/19/15 Welt Edge Rounder Relationship Specialty Start Date End Date Brenden Caba, BILINGUAL LEGAL ASSISTANT-HOTEL CLERK [address] [facility] [facility], [address] [place] [address] PCP - General 03/19/15 Welt Edge Rounder Relationship Specialty Start Date End Date Brenden Caba, BILINGUAL LEGAL ASSISTANT-HOTEL CLERK [address] [facility] [facility], [address] [place] [address] PCP - General 03/19/15 Welt Edge Rounder Relationship Specialty Start Date End Date Brenden Caba, BILINGUAL LEGAL ASSISTANT-HOTEL CLERK [address] [facility] [facility], [address] [place] [address] PCP - General 03/19/15 Welt Edge Rounder Relationship Specialty Start Date End Date Brenden Caba, BILINGUAL LEGAL ASSISTANT-HOTEL CLERK [address] [facility], [address] [place] [address] PCP - General 03/19/15 Welt Edge Rounder Relationship Specialty Start Date End Date Brenden Caba, BILINGUAL LEGAL ASSISTANT-HOTEL CLERK [address] [facility], [address] [place] [address] PCP - General 03/19/15 Welt Edge Rounder Relationship Specialty Start Date End Date Brenden Caba, BILINGUAL LEGAL ASSISTANT-HOTEL CLERK [address], [address] [place] [address] PCP - General 03/19/15 Welt Edge Rounder Relationship Specialty Start Date End Date Brenden Caba, BILINGUAL LEGAL ASSISTANT-HOTEL CLERK [address], [address] [place] [address] PCP - General 03/19/15 Welt Edge Rounder Relationship Specialty Start Date End Date Brenden Caba, BILINGUAL LEGAL ASSISTANT-HOTEL CLERK [address], [address] [place] [address] PCP - General 03/19/15 Welt Edge Rounder Relationship Specialty Start Date End Date Brenden Caba, BILINGUAL LEGAL ASSISTANT-HOTEL CLERK [address], [address] [place] [address] PCP - General 03/19/15 Welt Edge Rounder Relationship Specialty Start Date End Date Brenden Caba, BILINGUAL LEGAL ASSISTANT-HOTEL CLERK [address], [address] [place] [address] PCP - General 03/19/15 Welt Edge Rounder Relationship Specialty Start Date End Date Brenden Caba, BILINGUAL LEGAL ASSISTANT-HOTEL CLERK [address], [address] [place] [address] PCP - General 03/19/15 Welt Edge Rounder Relationship Specialty Start Date End Date Brenden Caba, BILINGUAL LEGAL ASSISTANT-HOTEL CLERK [address], [address] [place] [address] PCP - General 03/19/15 Welt Edge Rounder Relationship Specialty Start Date End Date Brenden Caba, BILINGUAL LEGAL ASSISTANT-HOTEL CLERK [address] [facility], [address] [place] [address] PCP - General 03/19/15 Welt Edge Rounder Relationship Specialty Start Date End Date Brenden Caba, BILINGUAL LEGAL ASSISTANT-HOTEL CLERK [address] [facility], [address] [place] [address] PCP General 03/19/15 Welt Edge Rounder Relationship Specialty Start Date End Date Brenden Caba, BILINGUAL LEGAL ASSISTANT-HOTEL CLERK [facility], [address] [place] [address] PCP General 03/19/15 Welt Edge Rounder Relationship Specialty Start Date End Date Brenden Caba, BILINGUAL LEGAL ASSISTANT-HOTEL CLERK [address] [place] [address], [address] [place] [address] [facility] 03/19/15 FOR RECORDS PERTAINING TO PATIENTS WHO [...] BE BASED ON THE PRIMARY CLINICAL RECORDS. [facility] [employer] [facility]. provides no warranty or guarantee of the accuracy or completeness of information in this document.
== END 2025-07-24 12:51 | disposition home or self-care (01) ==
LOC: SURGOUT 12:46
PROVIDERS: Visit Provider Anesthesiology
DX: M47.812 Spondylosis without myelopathy or radiculopathy, cervical region (principal); M54.2 Cervicalgia
CPT/HCPCS: 64490; 64491; J0665

== ENCOUNTER 2025-07-26 11:21 | Outpatient (OUT) | payer OTHER, SELFPAY ==
--- OUTSIDE RECORDS SUMMARY | 2025-07-13 13:00 | XMS_ITS | Encounter Summary ---
[facility] Organization [id number] [address] [place] [address] Care Team Providers Care Measurement Operator Name Role Phone Jesenia Peng METAL WIRE TECHNICIAN-TRUCK JUMPER Primary Care Provider Reason for Visit * Reason Comments Cough Patient here for luis p cough, difficult breathing and congestion. Patient states that she noticed it 2 weeks ago ad she went to . Since then she says its been getting worse. Encounter Details Date Type Department Care Team (Late st Contact Info) Description 07/13/2025 1:00 PM EDT Office Visit [facility] [place] [address] [facility] [address] [place] [phone] Jesenia Peng, METAL WIRE TECHNICIAN-TRUCK JUMPER [address] [facility], [address] [place] [address] Acute cough (Primary Dx); Wheezing; Shortness of breath; COPD exacerbation ([facility]) Social History Tobacco Use Types Packs/Day Years Used Date Smoking Tobacco: Former Cigarettes Q uit: 2018 Smokeless Tobacco: Never Alcohol Use Standard Drinks/Week Comments Yes 7 (1 standard drink = 0.6 oz pur e alcohol) daily PHQ-2 Answer Date Recorded Total Score 0 07/13/2025 Childcare Answer Date Recorded Childcare Unknown 04/11/2019 Employment Answer Date Recorded Employment Unknown 04/11/2019 Hunger Screening Answer Date Recorded Within the past 12 months we worried whether our food would run out before we got money to buy more. Never True 07/13/2025 Within the past 12 months th e food we bought just didn't last and we didn't have money to get more. Never True 07/13/2025 Purpose - Life Answer Date Recorded Purpose and direction in life Unknown Comments No Sex and Gender Information Value Date Recorded Sex Assigned at Not on file Legal Sex Female 7:50 PM EDT Gender Identity Not on file Sexual Orientation Not on file documented as of this encounter Last Filed Vital Signs Vital Sign Reading Time Taken Comments Blood Pressure 105/64 07/13/2025 1:04 PM EDT Pulse 100 07/13/2025 1:04 PM EDT Temperature 36.2 C (97.1 F) 07/13/2025 1:04 PM EDT Respiratory Rate - - Oxygen Saturation 94% 07/13/2025 1:04 PM EDT Inhaled Oxygen Concentration - - Weight 42.2 kg (93 lb) 07/13/2025 1:04 PM EDT Height 157.5 cm (5' 2.01 ) 07/13/2025 1:04 PM ED T Body Mass Index 17.01 07/13/2025 1:04 PM EDT documented in this encounter Patient Instructions * Patient Instructions* CIARRA Osei - 07/13/2025 1:00 PM EDT Prednisone in the morning with food. Doxycyline twice a day for 7 days. documented in this encounter Progress Notes * CIARRA Osei - 07/13/2025 1:00 PM EDT [facility] Practice Family Medicine/Sports Medicine SUBJECTIVE: Beena Madera is a 74 y.o. female who presents to clinic today for Cough (Patient here for deep cough, difficult breathing and congestion. Patient states that she noticed it 2 weeks ago ad shewent to . Since then she says its been getting worse. ). HPI Follow up cough, was seen in on 06/27/2025, told she had a viral infection. Chest xray showed COPD. Cough has been increasing, has become short of breath, fatigued. Review of Systems Constitutional: Positive for fatigue. Negative for chills and fever. HENT: Positive for congestion, postnasal drip and rhinorrhea. Eyes: Negative for pain and visual disturbance. Respiratory: Positive for cough and shortness of breath. Cardiovascular: Negative for chest pain and palpitations. Gastrointestinal: Negative for nausea and vomiting. Skin: Negative for color change and rash. Patient Active Problem List Diagnosis Chronic bilateral low back pain without sciatica Swelling of right hand Menopause Decreased body height Parkinson's disease ([facility]) Hypertension Mixed hyperlipidemia Lumbar degenerative disc disease Osteoarthritis of facet joint of lumbar spine COPD (chronic obstructive pulmonary disease) ([facility]) Tear of right hamstring Right rotator cuff tear arthropathy Livedo reticularis Oral lesion Chronic heart failure with preserved ejection fraction ([facility]) Vasovagal episode Nonrheumatic mitral valve regurgitation Chronic pain syndrome Neck pain, chronic Cervical radiculopathy Outpatient Medications Prior to Visit Medication Sig Dispense Refill albuterol (PROVENTIL HFA;VENTOLIN HFA) 90 mcg/actuation inhaler Inhale 2 puffs every 6 (six) hours as needed for wheezing. 18 g 2 amantadine (SYMMETREL) 100 mg tablet Take 1-2 tablets by mouth at 6am and 1 tablet at 12pm 270 tablet 3 ammonium lactate (AMLACTIN) 12 [...] 3 methotrexate 2.5 mg chemo tablet Take 9 tablets by mouth once a week 108 tablet 0 pantoprazole (PROTONIX) 40 mg EC tablet TAKE [...] BY MOUTH AT NIGHT 30 capsule 0 furosemide (LASIX) 20 mg tablet Take 1 tablet (20 mg total) by mouth daily. (Patient not taking: Reported on 05/17/2025) No facility-administered medications prior to visit. Allergies Allergen Reactions Iodinated Contrast Media Itching OBJECTIVE: Vitals: 07/13/25 1304 BP: 105/64 Pulse: 100 Temp: 36.2 ??C (97.1 ??F) SpO2: 94% Weight: 42.2 kg (93 lb) Height: 157.5 cm (5' 2.01 ) Body mass index is 17.01 kg/m??. Physical Exam Constitutional: Appearance: She is ill-appearing. Eyes: Conjunctiva/sclera: Conjunctivae normal. Neck: Vascular: No carotid bruit. Cardiovascular: Rate and Rhythm: Normal rate and regular rhythm. Heart sounds: Normal heart sounds, S1 normal and S2 normal. Pulmonary: Breath sounds: Wheezing and rhonchi present. Comments: Scattered rhonchi and wheezing in all lung singer. Skin: General: Skin is warm and dry. Neurological: Mental Status: She is alert. Psychiatric: Behavior: Behavior normal. Studies: Admission on 06/27/2025, Discharged on 06/27/2025 Component Date Value Ref Range Status SARS CoV2 by NAAT/Molecular 06/27/2025 Presumptive Negative Presumptive Negative Final POC Influenza A by NAAT/Molecular 06/27/2025 Negative Negative Final POC Influenza B by NAAT/Molecular 06/27/2025 Negative Negative Final Procedure: ASSESSMENT/PLAN: Beena was seen today for cough. Diagnoses and all orders for this visit: Acute cough - X-ray chest 2 views; Future Wheezing - X-ray chest 2 views; Future Shortness of breath - X-ray chest 2 views; Future COPD exacerbation ([facility]) - doxycycline (VIBRA-TABS) 100 mg tablet; Take 1 tablet (100 mg total) by mouth in the morning and 1 tablet (100 mg total) before bedtime. Do all this for 7 days. - predniSONE (DELTASONE) 20 mg tablet; Take two tablets (40 mg) daily with food for 5 days Recommend doxycyline and prednisone for COPD exacerbation. Chest x-ray repeated to R/O pneumonia. Risks, benefits, and alternatives to all new medications were discussed with patient. Continue all other medications as prescribed. All questions answered to patient's satisfaction. The patient was instructed to call if worsening or not improving. The patient was counseled regarding impressions, instructions for management and importance of compliance with treatment. Return for follow up if not better. Patient Instructions Prednisone in the morning with food. Doxycyline twice a day for 7 days. CIARRA Osei 07/13/25 1617 documented in this encounter Plan of Treatment Upcoming Encounters Date Type Department Care Team (Latest Contact Info) Description 08/01/2025 2:00 PM EDT Office Visit [facility], A Department of [address] [place] [phone] Trice Stinson MD [address] [place] [address] [address] [place] [address] 08/03/2025 9:30 AM EDT Procedure visit [facility] On [address] [address] 08/07/2025 11:00 AM EDT Office Visit [facility] [address] [phone] Isidro Woodall, [address] [facility] [address] [place], [place] [phone] 08/07/2025 11:00 AM EDT Appointment [facility] Radiology [address] [place] [address] 08/09/2025 12:00 PM EDT Hospital Encounter [facility] - Endoscopy [address] [place] [phone] [place] [address] [place] [address], [address] [place] [address] 08/09/2025 12:00 PM EDT - 08/09/2025 12:30 PM EDT Surgery [facility] Division of [facility] - Endoscopy [address] [place] [phone] Cliff Greenfield MD [address] [facility], [address] [facility] [place] [address] ESOPHAGOGASTRODUODENOSCOPY DIAGNOSTIC [76214 (CPT )] 08/21/2025 2:30 PM EDT Appointment [facility] [address] [place] [address] 08/22/2025 2:30 PM EDT Office Visit [facility] [address] [facility] [address] [place] [address] Isidro Woodall DO [address] [facility] [address] [place] [address] 08/23/2025 1:30 PM EDT Office Visit [facility] [address] [facility] [address] [place] [address] Jesenia Peng, METAL WIRE TECHNICIAN-TRUCK JUMPER [address] [facility], [address] [place] [address] 09/26/2025 1:30 PM EST Office Visit [facility], A Department of [facility] [address] [facility] [address] [place] [address] Neli Clemente MD MPH [address] [facility] [address] [place] [phone] 10/13/2025 11:45 AM EST Office Visit [facility] Cardiology [address] [place] [address] [address] [place] [address] Duong Johnson DO [address] [facility], [address] [place] [address] 10/13/2025 3:15 PM EST Office Visit [facility], A Department of [facility] [address] [place] [address] [address] [place] [phone] Ines Uribe PA-C [address] [facility], [address] [place] [address] 11/14/2025 12:20 PM EST Office Visit [facility] [address] [place] [phone] Ofelia Pierce V, METAL WIRE TECHNICIAN-TRUCK JUMPER [address] [place] [address] 11/21/2025 12:30 PM EST Appointment [facility] [address] [place] [phone] Scheduled Procedures Name Priority Associated Diagnoses Date/Ti wv ESOPHAGOGASTRODUODENOSCOPY DIAGNOSTIC Esophageal dysphagia (R13.19) 08/09/2025 12:00 PM EDT documented as of this encounter Goals Goal Patient Goal Type Associated Problems Recent Progress Patient-Stated? Author Discharge with home care General Yes Carmen Yañez, RN Note: Evaluation of progress towards goal: Discharge home with & [facility] documented as of this encounter Results * X-ray chest 2 views (07/13/2025 1:28 PM EDT) Anatomical Region Laterality Modality Body, Chest N/A Computed Radiogr aphy 07/13/2025 1:30 PM EDT Narrative 07/13/2025 1:31 PM EDT History: Cough. Wheezing. History of prior tobacco use Chest Xray Two-view study. Comparison: 06/27/2025 Findings/Impression: The lungs are stable. Cardiac silhouette and pulmonary vasculature are unchanged. No focal consolidative airspace disease, pneumothorax, or pleural effusion is appreciated. Hyperinflation compatible with COPD is again noted. No acute process. No free air beneath the diaphragm is noted. The osseous structures are stable. Finalized by Tabitha Garcia MD on 07/13/2025 1:31 PM Procedure Note Tabitha Garcia MD - 07/13/2025 History: Cough. Wheezing. History of prior tobacco use Chest Xray Two-view study. Comparison: 06/27/2025 Findings/Impression: The lungs are stable. Cardiac silhouette and pulmonary vasculature areunchanged. No focal consolidative airspace disease, pneumothorax, orpleural effusion is appreciated. Hyperinflation compatible with COPD isagain noted. No acute process. No free air beneath the diaphragm is noted. The osseous structures arestable. Finalized by Tabitha Garcia MD on 07/13/2025 1:31 PM Jesenia LAFLEUR IMG DIAGNOSTIC IMAGING ORDERABLES Final Result documented in this encounter Visit Diagnoses Diagnosis Acute cough- Primary Wheezing Shortness of breath COPD exacerbation ([facility]) Obstructive chronic bronchitis with exacerbation documented in this encounter Additional Health Concerns Assessment Noted Time PHQ-9 Depression Total Score: 0 07/13/20 25 7:00 AM EDT A Body Mass Index follow-up plan has been documented for the patient 02/23/2025 12:24 PM EDT documented as of this encounter Care Teams Measurement Operator Relationship Specialty Start Date End Date Jesenia Peng APRN-CNP [address] [place] [address], [address] [place] [address] PCP - General 03/19/15 documented as of this encounter
--- OUTSIDE RECORDS SUMMARY | 2025-07-20 10:45 | XMS_ITS | Encounter Summary ---
Author Organization [facility] tem Address [id number] [address] [place] [address] Care Team Providers Care Data Analyst Report Writer Name Role Phone Jesenia Peng RADHA-GIFT PACKER Primary Care Provider Reason for Referral * Gastroenterology (Routine) - Pending Review Specialty Diagnoses / Procedures Referred By Madeline giles Referred To Contact Diagnoses Esophageal dysphagia Procedures EGD Cliff Greenfield MD [address] [place] [address], [address] [place] [address] Phone: tel: fax: Referral ID Status Reason Start Date Expiration Date V isits Requested Visits Authorized [id number] Pending Review 07/20/2025 07/20/2026 1 1 Reason for Visit * Reason Comments Follow-up Patient is here toda y for a yearly follow up on esophageal dysphagia. 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 Never True 07/20/2025 Within the past 12 months th e food we bought just didn't last and we didn't have money to get more. Never True 07/20/2025 Purpose - Life Answer Date Recorded Purpose and direction in life Unknown Comments No Sex and Gender Information Value Date Recorded Sex Assigned at Not on file Legal Sex Female 7:50 PM EDT Gender Identity Not on file Sexual Orientation Not on file documented as of this encounter Last Filed Vital Signs Vital Sign Reading Time Taken Comments Blood Pressure 115/67 07/20/2025 10:40 AM EDT Pulse 90 07/20/2025 10:40 AM EDT Temperature - - Respiratory Rate - - Oxygen Saturation - - Inhaled Oxygen Concentration - - Weight 42.8 kg (94 lb 6.4 oz) 07/20/2025 10:40 A M EDT Height 157.5 cm (5' 2.01 ) 07/20/2025 10:40 AM E DT Body Mass Index 17.26 07/20/2025 10:40 AM EDT documented in this encounter Progress Notes * Cliff Greenfield MD - 07/20/2025 10:45 AM EDT Subjective: Patient ID: Beena Madera is a 74 y.o. female. HPI This 74-year-old established patient called our office a couple of weeks ago requesting esophageal dilation for symptoms of worsening dysphagia. She had a video fluoroscopic swallowing study which showed no major findings but did reveal some mild penetration and stasis. I have reviewed the films personally which also so as an area of compression of the proximal esophagus by a cervical osteophyte. Office visit was arranged today rather than a procedure as review of the chart reveals that she hadEGD with empiric dilation just over 1 year ago at which time there were no observable strictures. However, biopsies did show reflux changes in his a small area of Barretts esophagus. I have gone backto review the photos. There are a few cicatricial type changes in the distal esophagus but no dominant stricture. Her primary complaint was that of small foods like seeds and corn kernels sticking in the back of her throat. This represents the majority of her swallowing complaints but upon careful questioning there does seem to be some degree of esophageal dysphagia with meats. The following portions of the patient's history were reviewed and updated as appropriate: She has a past medical history of Acute on chronic heart failure with preserved ejection fraction [place] ([place]), Anxiety, Arthritis, Asthma, Cellulitis of left lower extremity (02/19/2022), COPD (chronic obstructive pulmonary disease) [place] (03/14/[place]), Dyslipidemia, Esophageal dysphagia (2023), Heart murmur, Hypertension, Low back pain, Open wound of left lower leg (01/20/2022), Parkinson's disease, Sepsis due to Staphylococcus aureus [place] (01/17/2022), Tear of right hamstring (07/03/2020), and Visual impairment. She has a past surgical history that includes Colonoscopy (10/20/2015); Other surgical history; Esophagogastroduodenoscopy (N/A, 05/24/2024); and Augmentation mammaplasty (11/09/2018). Her family history includes Diabetes in her father; Heart disease in her father. She reports that she quit smoking about 7 years ago. Her smoking use included cigarettes. She has never used smokeless tobacco. She reports current alcohol use of about 7.0 standard drinks of alcoholper week. She reports that she does not use drugs. Current Outpatient Medications Medication Sig Dispense Refill albuterol (PROVENTIL HFA;VENTOLIN [...] 3 tablets at bedtime 270 tablet 1 doxycycline (VIBRA-TABS) 100 mg tablet Take 1 tablet (100 mg total) by mouth in the morning and 1 tablet (100 mg total) before bedtime. Do all this for 7 days. 14 tablet 0 eszopiclone (LUNESTA) 2 mg tablet Take 1 [...] MOUTH 3 TIMES DAILY 270 tablet 3 predniSONE (DELTASONE) 20 mg tablet Take two tablets (40 mg) daily with food for 5 days 10 tablet 0 rasagiline (AZILECT) 1 mg tablet Take 1 [...] mouth daily. (Patient not taking: Reported on 07/20/2025) No current facility-administered medications for this visit. She is allergic to iodinated contrast media. Review of Systems Objective: Physical Exam Constitutional: General: She is not in acute distress. Eyes: General: No scleral icterus. Cardiovascular: Rate and Rhythm: Normal rate and regular rhythm. Heart sounds: Normal heart sounds. No murmur heard. Pulmonary: Effort: Pulmonary effort is normal. No respiratory distress. Breath sounds: Normal breath sounds. No wheezing or rales. Abdominal: General: Bowel sounds are normal. There is no distension. Palpations: Abdomen is soft. Tenderness: There is no abdominal tenderness. Neurological: Mental Status: She is alert and oriented to person, place, and time. Psychiatric: Behavior: Behavior normal. Labs: CBC: Lab Results Component Value Date WBC 5.9 06/08/2025 HGB 12.7 06/08/2025 HCT 39.0 06/08/2025 MCV 93 06/08/2025 RDW 15.8 (H) 06/08/2025 RDW 15.7 (H) 02/02/2025 PLT 270 06/08/2025 CMP: Lab Results Component Value Date K 4.9 06/08/2025 CL 100 06/08/2025 CL 99 02/02/2025 CO2 32 06/08/2025 BUN 20 06/08/2025 GLU 88 06/08/2025 GLU 114 (H) 04/17/2025 X Assessment/Plan: Beena was seen today for follow-up. 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 I find the majority of her complaints to beconsistent with an oropharyngeal type of dysphagia likely due to a combination of Parkinson's disease and a cervical osteophyte. There is however a component of esophageal dysphagia in the setting ofchronic reflux and therefore she has elected to proceed with esophageal dilation to see how much this might improve her symptoms. EGD at [facility], ASA 3, MAC. documented in this encounter Plan of Treatment Upcoming Encounters Date Type Department Care Team (Latest Contact Info) Description 08/01/2025 2:00 PM EDT Office Visit [facility] Neurology, A Department of [address] [place] [phone] Trice Stinson MD [address] [place] [address], [facility] [address] [place], [place] [phone] 08/03/2025 9:30 AM EDT Procedure visit [facility] On [address] [address] 08/07/2025 11:00 AM EDT Office Visit [facility] [address] [facility] [address] [place] [address] Isidro Woodall DO [address] [facility] [address] [place] [address] 08/07/2025 11:00 AM EDT Appointment [facility] Radiology [address] [place] [address] 08/09/2025 12:00 PM EDT Hospital Encounter [facility] - Endoscopy [address] [facility] [phone] [place] [address] [place] [address], [address] [place] [address] 08/09/2025 12:00 PM EDT - 08/09/2025 12:30 PM EDT Surgery [facility] - Endoscopy [address] [place] [address] [place] [address] [place] [address], [address] [place] [address] ESOPHAGOGASTRODUODENOSCOPY DIAGNOSTIC [28303 (CPT )] 08/21/2025 2:30 PM EDT Appointment [facility] [address] [place] [address] 08/22/2025 2:30 PM EDT Office Visit [facility] [address] [facility] [address] [place] [address] Isidro Woodall DO [address] [facility] [address] [place] [address] 08/23/2025 1:30 PM EDT Office Visit [facility] [address] [facility] [address] [place] [phone] Jesenia Peng, RN MOBILE-GIFT PACKER [address] [facility], [address] [place] [address] 09/26/2025 1:30 PM EST Office Visit [facility], A Department of [address] [place] [phone] Neli Clemente MD MPH [address] [place] [phone] 10/13/2025 11:45 AM EST Office Visit [facility] Cardiology [address] [place] [phone] Duong Johnson, DO [address] [place] [address], [address] [place] [address] 10/13/2025 3:15 PM EST [facility], A Department of [address] [place] [phone] Ines Uribe, SOPHY-C [address] [place] [address], [address] [place] [address] 11/14/2025 12:20 PM EST Office Visit [facility] [address] [facility] [address] [place] [phone] Ofelia Pierce V, RN MOBILE-GIFT PACKER [address] [facility] [address] [place] [address] 11/21/2025 12:30 PM EST Appointment [facility] Mammography [address] [place] [address] Scheduled Orders Name Type Priority Associated Diagnoses Orde r Schedule EGD GI Routine Esophageal dysphagia 1 Occurrences starting 07/20/2025 until 07/20/2026 Scheduled Procedures Name Priority Associated Diagnoses Date/Ti me ESOPHAGOGASTRODUODENOSCOPY DIAGNOSTIC Esophageal dysphagia (R13.19) 08/09/2025 12:00 PM EDT documented as of this encounter Goals Goal Patient Goal Type Associated Problems Recent Progress Patient-Stated? 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
--- OUTSIDE RECORDS SUMMARY | 2025-07-26 11:24 | XMS_ITS | Encounter Summary ---
Author Organization [facility] tem Address [facility]-[id number] [address] [place] [address] Care Team Providers Care Sales Assistant Name Role Phone Jesenia Peng NAIL PULLER-DEBURRER MACHINE Primary Care Provider Encounter Details Date Type Department Care Team (Late st Contact Info) Description 07/20/2025 Telephone [facility] Health Care, A Department of [address] [phone] Consultants, [facility] [address] [place] [address], [address] [place] [address] Social History Tobacco Use Types [...] encounter Miscellaneous Notes * Telephone Encounter - Jessie Avina - 07/20/2025 11:48 AM EDT EGD/KB 08/09/2025 @ [facility] ASA3, MAC, TFL Instructions given at check out/07/20/2025/cac documented in this encounter Plan of Treatment Upcoming Encounters Date Type Department Care Team (Latest Contact Info) Description 08/01/2025 2:00 PM EDT Office Visit [facility], A Department of [address], [address], [address] [place] [address] Trice Stinson MD [address] [place] [address] 101, 102, 103 [place] [address] 08/03/2025 9:30 AM EDT [facility] On [address] [address] 08/07/2025 11:00 AM EDT Office Visit [facility] [address] [phone] Isidro Woodall DO [address] [address] 08/07/2025 11:00 AM EDT Appointment [facility] Radiology [address] [place] [address] 08/09/2025 12:00 PM EDT Hospital Encounter [facility] Division of [facility] - Endoscopy [address] [place] [phone] Cliff Greenfield MD [address] [place] [address], [address] [place] [address] 08/09/2025 12:00 PM EDT - 08/09/2025 12:30 PM EDT Surgery [facility] of [facility] - Endoscopy [address] [place] [address] Cliff Greenfield MD [address] [facility], [address] [place] [address] ESOPHAGOGASTRODUODENOSCOPY DIAGNOSTIC [[id number] (CPT )] 08/21/2025 2:30 PM EDT Appointment [facility] [address] [place] [address] 08/22/2025 2:30 PM EDT Office Visit [facility] [address] [facility] [address] [place] [address] Isidro Woodall, [address] [facility] [address] [place] [address] 08/23/2025 1:30 PM EDT Office Visit [facility] [address] [phone] Jesenia Peng, NAIL PULLER-DEBURRER MACHINE [address] [facility], [address] [place] [address] 09/26/2025 1:30 PM EST Office Visit [facility], A Department of [facility] [address] [place] [address] [address] [place] [address] Neli Clemente MD MPH [address] [place] [address] 10/13/2025 11:45 AM EST Office Visit [facility] Cardiology [address] [place] [phone] Duong Johnson, DO [address] [place] [address], [address] [place] [address] 10/13/2025 3:15 PM EST Office Visit [facility], A Department of [address] [place] [address] Ines Uribe PA-C [address] [place] [address], [address] [place] [address] 11/14/2025 12:20 PM EST Office Visit [facility] [address] [place] [phone] Ofelia Pierce V, NAIL PULLER-DEBURRER MACHINE [address] [place] [address] 11/21/2025 12:30 PM EST Appointment [facility] [address] [place] [address] Scheduled Procedures Name Priority Associated Diagnoses Date/Ti me ESOPHAGOGASTRODUODENOSCOPY DIAGNOSTIC Esophageal dysphagia (R13.19) 08/09/2025 12:00 PM EDT documented as of this encounter Goals Goal Patient Goal Type Associated Problems Recent Progress Patient-Stated? Author Discharge with home care General Yes Carmen Yañez, RN Note: Evaluation of progress towards goal: Discharge home with [facility] Autogenerated Goal Care Plan Autogenerated Problem No Jessie Avina documented as of this encounter Visit Diagnoses Not on filedocumented in this encounter Additional Health Concerns Active Problems Noted Date Diagnosed Date Autogenerated Problem 07/20/2025 Assessment Noted Time PHQ-9 Depression Total Score: 0 07/13/20 25 7:00 AM EDT A Body Mass Index follow-up plan has been documented for the patient 02/23/2025 12:24 PM EDT documented as of this encounter Care Teams Sales Assistant Relationship Specialty Start Date End Date Jesenia Peng, NAIL PULLER-DEBURRER MACHINE [facility], [address] [place] [address] PCP - General 03/19/15 documented as of this encounter
--- OUTSIDE RECORDS SUMMARY | 2025-07-26 11:24 | XMS_ITS | Encounter Summary ---
Author Organization [facility] tem Address [facility]-[id number] [address] [place] [address] Care Team Providers Care Bundle Sorter Name Role Phone Jesenia Peng PULP GRINDER AND BLENDER-PUBLIC TRANSIT SPECIALIST Primary Care Provider Encounter Details Date Type Department Care Team (Latest Contact Info) Description 07/19/2025 Travel Social History Tobacco Use Types Packs/Day Years [...] Description 08/01/2025 2:00 PM EDT Office Visit [facility] Neurology, A Department of [facility] [address] 101, 102, [address] [place] [address] Trice Stinson MD [address] [place] [address] 101, 102, [address] [place] [address] 08/03/2025 9:30 AM EDT Procedure visit [facility] On [address] [address] 08/07/2025 11:00 AM EDT Office Visit [facility] [address] [facility] [address] [place] [address] Isidro Woodall DO [address] [facility] [address] [place] [address] 08/07/2025 11:00 AM EDT Appointment [facility] [address] [place] [address] 08/09/2025 12:00 PM EDT Hospital Encounter [facility] Division of [facility] - Endoscopy [address] [facility] [place] [address] Cliff Greenfield MD [address] [place] [address], [address] [place] [address] 08/09/2025 12:00 PM EDT - 08/09/2025 12:30 PM EDT Surgery [facility] - Endoscopy [address] [place] [address] [place] [address] [place] [address], [address] [place] [address] ESOPHAGOGASTRODUODENOSCOPY DIAGNOSTIC [[id number] (CPT )] 08/21/2025 2:30 PM EDT Appointment [facility] [address] [place] [address] 08/22/2025 2:30 PM EDT Office Visit [facility] [address] [facility] [address] [place] [address] Isidro Woodall, DO [address] [facility] [address] [place] [address] 08/23/2025 1:30 PM EDT Office Visit [facility] [address] [facility] [address] [place] [address] Jesenia Peng, PULP GRINDER AND BLENDER-PUBLIC TRANSIT SPECIALIST [address] [facility], [address] [place] [address] 09/26/2025 1:30 PM EST Office Visit [facility], A Department of [address] [phone] Neli Clemente MD MPH [address] [place] [phone] 10/13/2025 11:45 AM EST Office Visit [facility] Cardiology [address] [place] [phone] Duong Johnson DO [address] [place] [address], [address] [place] [address] 10/13/2025 3:15 PM EST Office Visit [facility], A Department of [address] [phone] Ines Uribe PA-C [address] [place] [address], [address] [place] [address] 11/14/2025 12:20 PM EST Office Visit [facility] [address] [facility] [address] [place] [address] Ofelia Pierce V, PULP GRINDER AND BLENDER-PUBLIC TRANSIT SPECIALIST [facility] [facility] [address] [place] [address] 11/21/2025 12:30 PM EST Appointment [facility] [place] - Mammography [address] [place] [address] Scheduled Procedures Name Priority Associated Diagnoses Date/Ti [...] documented as of this encounter Care Teams Bundle Sorter Relationship Specialty Start Date End Date Jesenia Peng, PULP GRINDER AND BLENDER-PUBLIC TRANSIT SPECIALIST [address] [place] [address], [address] [place] [address] PCP - General 03/19/15 documented as of this encounter
--- OUTSIDE RECORDS SUMMARY | 2025-07-26 11:24 | XMS_ITS | Encounter Summary ---
Author Organization [facility] tem Address [facility][id number] [address] [place] [address] Care Team Providers Care System Engineer Name Role Phone Jesenia Peng HALFTONE OPERATOR-PAPER MILL MANAGER Primary Care Provider Encounter Details Date Type Department Care Team (Late st Contact Info) Description 06/27/2025 Results Follow-Up [facility] Rheumatology, A Department of [address] [address] Neli Clemente MD MPH [address] [place] [phone] X-ray spine lumbar 2 or 3 [...] Office Visit [facility], A Department of [address] 101, 102, [address] [place] [address] Trice Stinson MD [address] [place] [address] 101, 102, 103 [place] [address] 08/03/2025 9:30 AM EDT [facility] On [address] [address] 08/07/2025 11:00 AM EDT Office Visit [facility] [address] [address] Isidro Woodall DO [address] [address] 08/07/2025 11:00 AM EDT Appointment [facility] Rad[facility] [address] [place] [address] 08/09/2025 12:00 PM EDT Hospital Encounter [facility] - Endoscopy [address] [place] [address] [place] [address] [place] [address], [address] [place] [address] 08/09/2025 12:00 PM EDT - 08/09/2025 12:30 PM EDT Surgery [facility] - Endoscopy [address] [place] [address] Cliff Greenfield MD [address] [place] [address], [address] [place] [address] ESOPHAGOGASTRODUODENOSCOPY DIAGNOSTIC [[id number] (CPT )] 08/21/2025 2:30 PM EDT Appointment [facility] [address] [place] [address] 08/22/2025 2:30 PM EDT Office Visit [facility] [address] [facility] 170 [place] [address] Isidro Woodall DO [address] [facility] 170 [place] [address] 08/23/2025 1:30 PM EDT Office Visit [facility] [address] [phone] Jesenia Peng, HALFTONE OPERATOR-PAPER MILL MANAGER [address] [place] [address], [address] [place] [address] 09/26/2025 1:30 PM EST Office Visit [facility], A Department of [address] [address] Neli Clemente MD MPH [address] [place] [address] 10/13/2025 11:45 AM EST Office Visit [facility] Cardiology [address] [place] [phone] Duong Johnson, DO [address] [place] [address], [address] [place] [address] 10/13/2025 3:15 PM EST [facility], A Department of [address] [place] [address] Ines Uribe PA-C [address] [facility], [address] [place] [address] 11/14/2025 12:20 PM EST Office Visit [facility] [address] [facility] [address] [place] [phone] [place] Pierce V, HALFTONE OPERATOR-PAPER MILL MANAGER [address] [facility] [address] [place] [address] 11/21/2025 12:30 PM EST Appointment [facility] [address] [place] [phone] Scheduled Procedures Name Priority Associated Diagnoses Date/Ti [...] documented as of this encounter Care Teams System Engineer Relationship Specialty Start Date End Date Jesenia Peng, HALFTONE OPERATOR-PAPER MILL MANAGER [address] [facility], [address] [place] [address] PCP - General 03/19/15 documented as of this encounter
--- OUTSIDE RECORDS SUMMARY | 2025-07-26 11:24 | XMS_ITS | Encounter Summary ---
Author Organization [facility] tem Address [id number] [address] [place] [address] Care Team Providers Care Laser Print Operator Name Role Phone Jesenia Peng COMMERCIAL ANNOUNCER-LACE PAPER MACHINE OPERATOR Primary Care Provider Encounter Details Date Type Department Care Team (Latest Contact Info) Description 07/13/2025 Travel Social History Tobacco Use Types Packs/Day [...] Description 08/01/2025 2:00 PM EDT Office Visit [facility] Neurology, A Department of [facility] [address] 101, 102, [address] [place] [address] Trice Stinson MD [address] [place] [address] 101, 102, [address] [place] [address] 08/03/2025 9:30 AM EDT Procedure visit [facility] On [address] [address] 08/07/2025 11:00 AM EDT Office Visit [facility] [address] [facility] [address] [place] [address] Isidro Woodall DO [address] [facility] [address] [place] [address] 08/07/2025 11:00 AM EDT Appointment [facility] Rad[facility] [address] [place] [address] 08/09/2025 12:00 PM EDT Hospital Encounter [facility] Division of [facility] - Endoscopy [address] [facility] [address] Cliff Greenfield MD [address] [place] [address], [address] [place] [address] 08/09/2025 12:00 PM EDT - 08/09/2025 12:30 PM EDT Surgery [facility] - Endoscopy [address] [place] [address] [place] [address] [place] [address], [address] [place] [address] ESOPHAGOGASTRODUODENOSCOPY DIAGNOSTIC [[id number] (CPT )] 08/21/2025 2:30 PM EDT Appointment [facility] [address] [place] [address] 08/22/2025 2:30 PM EDT Office Visit [facility] [address] [facility] [address] [place] [address] Isidro Woodall, DO [address] [facility] [address] [place] [address] 08/23/2025 1:30 PM EDT Office Visit [facility] [address] [facility] [address] [place] [address] Jesenia Peng, COMMERCIAL ANNOUNCER-LACE PAPER MACHINE OPERATOR [address] [facility], [address] [place] [address] 09/26/2025 1:30 PM EST Office Visit [facility], A Department of [address] [phone] Neli Clemente MD MPH [address] [place] [phone] 10/13/2025 11:45 AM EST Office Visit [facility] Cardiology [address] [place] [phone] Duong Johnson DO [address] [place] [address], [address] [place] [address] 10/13/2025 3:15 PM EST Office Visit [facility], A Department of [address] [phone] Ines Uribe PA-C [address] [place] [address], [address] [place] [address] 11/14/2025 12:20 PM EST Office Visit [facility] [address] [facility] [address] [place] [address] [place] Pierce V, COMMERCIAL ANNOUNCER-LACE PAPER MACHINE OPERATOR [facility] [address] [facility] [address] [place] [address] 11/21/2025 12:30 PM EST Appointment [facility] - Mammography [address] [place] [phone] Scheduled Procedures Name Priority Associated Diagnoses Date/Ti [...] documented as of this encounter Care Teams Laser Print Operator Relationship Specialty Start Date End Date Jesenia Peng, COMMERCIAL ANNOUNCER-LACE PAPER MACHINE OPERATOR [address] [place] [address], [address] [place] [address] PCP - General 03/19/15 documented as of this encounter
--- OUTSIDE RECORDS SUMMARY | 2025-07-26 11:24 | XMS_ITS | Encounter Summary ---
Author Organization [facility] tem Address [id number] [address] [place] [address] Care Team Providers Care Animal Pathology Teacher Name Role Phone Jesenia Peng PETROLEUM SAMPLER-CHIEF MECHANICAL OFFICER Primary Care Provider Encounter Details Date Type Department Care Team (Late st Contact Info) Description 06/29/2025 [facility] Department of [facility] [address] [address] Brenna Case CMA Social History Tobacco Use [...] to get in to be seen at [facility] at Beena's last appointment. Farida stated that Beena is in so much painto the point that she wants to take herself out . She said that [place] is not going to be able to get her in until the end of July or possibly August. Farida said that she does not think her mom will make it that long . Farida said that it would be best to call Beena's [place]. They would like to know if there charan way that they could get in [place] earlier? Call her [place] at: [phone] Please advise. * Telephone Encounter - Neli Clemente MD MPH - 06/29/2025 11:32 AM EDT Thank you for letting me know. I have messaged the providers at the PM&R office at [place] to see if there are any earlier openings or cancellations. I believe that Beena's usual provider (Liza) isn't in the office today, so I may not hear back from her until tomorrow. I did try to call the patient's ([place]) at the provided phone number [facility] I also tried to call the patient's daughter (Farida) and I was routed to [facility] as well. At some point today, [...] Office Visit [facility], A Department of [address], [address], [address] [place] [address] Trice Stinson MD [address] [place] [address] 101, 102, 103 [place] [address] 08/03/2025 9:30 AM EDT Procedure visit [facility] On [address] [address] 08/07/2025 11:00 AM EDT Office Visit [facility] [address] [facility] [address] [place] [address] Isidro Woodall, [address] [facility] [address] [place] [address] 08/07/2025 11:00 AM EDT Appointment [facility] Radiology [address] [place] [address] 08/09/2025 12:00 PM EDT Hospital Encounter [facility] [address] [place] [phone] [place] [address] [place] [address], [address] [place] [address] 08/09/2025 12:00 PM EDT - 08/09/2025 12:30 PM EDT Surgery [facility] [address] [place] [address] Cliff Greenfield MD 57[address] [facility], [address] [place] [address] ESOPHAGOGASTRODUODENOSCOPY DIAGNOSTIC [98604 (CPT )] 08/21/2025 2:30 PM EDT Appointment [facility] Radiology [address] [place] [address] 08/22/2025 2:30 PM EDT Office Visit [facility] [address] [facility] [address] [place] [address] Isidro Woodall, DO [address] [facility] 170 [place] [address] 08/23/2025 1:30 PM EDT Office Visit [facility] [address] [facility] 170 [place] [address] Jesenia Peng, PETROLEUM SAMPLER-CHIEF MECHANICAL OFFICER [address] [facility], [address] [place] [address] 09/26/2025 1:30 PM EST Office Visit [facility], A Department of [address] [place] [address] Neli Clemente MD MPH [address] [place] [address] 202 [place] [address] 10/13/2025 11:45 AM EST Office Visit [facility] Cardiology [address] [place] [address] [address] [place] [address] Duong Johnson, DO [address] [facility], [address] [place] [address] 10/13/2025 3:15 PM EST Office Visit [facility], A Department of [address] [place] [address] Ines Uribe PA-C [address] [place] [address], [address] [place] [address] 11/14/2025 12:20 PM EST Office Visit [facility] [address] [place] [phone] Ofelia Pierce V, PETROLEUM SAMPLER-CHIEF MECHANICAL OFFICER [address] [place] [address] 11/21/2025 12:30 PM EST Appointment [facility] [place] - Mammography [address] [place] [phone] Scheduled Procedures Name Priority Associated Diagnoses Date/Ti va ESOPHAGOGASTRODUODENOSCOPY DIAGNOSTIC Esophageal dysphagia (R13.19) 08/09/2025 12:00 [...] documented as of this encounter Care Teams Animal Pathology Teacher Relationship Specialty Start Date End Date Jesenia Peng APRN-CHIEF MECHANICAL OFFICER [address] [place] [address], [address] [place] [address] PCP - General 03/19/15 documented as of this encounter
--- OUTSIDE RECORDS SUMMARY | 2025-07-26 11:24 | XMS_ITS | Encounter Summary ---
Author Organization [facility] tem Address [id number] [address] [place] [address] Care Team Providers Care Polishing Wheel Repairer Name Role Phone Jesenia Peng FURNITURE MANAGER-COMMUNITY ORGANIZATION WORKER Primary Care Provider Encounter Details Date Type Department Care Team (Late st Contact Info) Description 06/05/2025 Orders Only [facility] [address] [place] [phone] Anamaria Perkins CMA Weight loss (Primary Dx); [...] Office Visit [facility], A Department of [address], [address], [address] [place] [address] Trice Stinson MD [address] [place] [address] 101, 102, 103 [place] [address] 08/03/2025 9:30 AM EDT Procedure visit [facility] On [address] [address] 08/07/2025 11:00 AM EDT Office Visit [facility] [address] [address] Isidro Woodall DO [address] [address] 08/07/2025 11:00 AM EDT Appointment [facility] Radiology [address] [place] [address] 08/09/2025 12:00 PM EDT Hospital Encounter [facility] Endoscopy [address] [place] [address] [place] [address] [place] [address], [address] [place] [address] 08/09/2025 12:00 PM EDT - 08/09/2025 12:30 PM EDT Surgery [facility] - [facility]oscopy [address] [place] [phone] [place] [address] [place] [address], [address] [place] [address] ESOPHAGOGASTRODUODENOSCOPY DIAGNOSTIC [[id number] (CPT )] 08/21/2025 2:30 PM EDT Appointment [facility] [address] [place] [address] 08/22/2025 2:30 PM EDT Office Visit [facility] [address] [facility] 170 [place] [address] Isidro Woodall, DO 2865 [facility] 170 [place] [address] 08/23/2025 1:30 PM EDT Office Visit [facility] [address] [facility] 170 [place] [address] Jesenia Peng, FURNITURE MANAGER-COMMUNITY ORGANIZATION WORKER [address] [facility], [address] [place] [address] 09/26/2025 1:30 PM EST Office Visit [facility], A Department of [address] [phone] Neli Clemente MD MPH [address] [place] [phone] 10/13/2025 11:45 AM EST Office Visit [facility] Cardiology [address] [place] [phone] Duong Johnson, DO [address] [place] [address], [address] [place] [address] 10/13/2025 3:15 PM EST [facility], A Department of [address] [phone] Ines Uribe PA-C [address] [place] [address] [place] [address] 11/14/2025 12:20 PM EST Office Visit [facility] [address] [place] [address] Ofelia Pierce V FURNITURE MANAGER-COMMUNITY ORGANIZATION WORKER [address] [place] [address] 11/21/2025 12:30 PM EST Appointment [facility] [place] - Mammography [address] [place] [address] Scheduled Procedures Name Priority Associated Diagnoses [...] Results * Haptoglobin (06/08/2025 8:52 AM EDT) Pathologist [facility] HAPTOGLOBIN 215 32 - 228 mg/dL 06/08/2025 12:28 PM EDT [facility] Blood Venous blood / Unknown Venipuncture / Unknown 06/08/2025 8:52 AM EDT 06/08/2025 8:52 AM EDT us Jesenia LAFLEUR LAB BLOOD ORDERABLES Fi nal Result [facility] [address] [place] [address], * Clinical Pathology Blood Smear Review (06/08/2025 8:52 AM EDT) Case Report Clinical Pathology Report Case: [id number] Authorizing Provider: CIARRA Osei Collected: 06/08/2025 0852 Ordering Location: [facility] Received: 06/08/2025 0852 [facility] Pathologist: Rinku Abrams MD Specimen: Blood, Venous 06/09/2025 2:28 PM EDT [facility] Final Diagnosis No significant WBC, RBC or platelet abnormality is identified. No blasts are identified. The patient previous CBC history is noted. 06/09/2025 2:28 PM EDT [facility] at 1428 EDT Embedded Images 06/09/2025 2:28 PM EDT [facility] Blood Venous blood / Unknown Venipuncture / Unknown 06/08/2025 8:52 AM EDT 06/08/2025 8:52 AM EDT us Jesenia LAFLEUR LAB BLOOD ORDERABLES Fi nal Result [facility] [address] [place] [address], [place] [phone] * LDL cholesterol, direct (06/08/2025 8:52 AM EDT) DIRECT LDL 60 <=130 mg/dL 06/08/2025 12:28 PM EDT [facility] Comment: LDL <100 mg/dL - Desirable LDL 130-159 mg/dL - Borderline High Risk LDL >160 mg/dL - High Risk Blood Venous blood / Unknown Venipuncture / Unknown 06/08/2025 8:52 AM EDT 06/08/2025 8:52 AM EDT us Jesenia Peng APRN-COMMUNITY ORGANIZATION WORKER LAB BLOOD ORDERABLES Fi nal Result [facility] [address] [place] [address], [place] [phone] * Basic Metabolic Panel (06/08/2025 8:52 AM EDT) SODIUM 141 134 - 146 mmol/L 06/08/2025 12:28 PM EDT [facility] POTASSIUM 4.9 3.5 - 5.0 mmol/L 06/08/2025 12:28 PM EDT [facility] CHLORIDE 100 98 - 109 mmol/L 06/08/2025 12:28 PM EDT [facility] CARBON DIOXIDE 32 22 - 32 mmol/L 06/08/2025 12:28 PM EDT [facility] ANION GAP 9 5 - 15 mmol/L 06/08/2025 12:28 PM EDT [facility] BLOOD UREA NITROGEN 20 5 - 27 mg/dL 06/08/2025 12:28 PM EDT [facility] CREATININE 0.60 0.40 - 1.00 mg/dL 06/08/2025 12:28 PM EDT [facility] Comment:METHOD TRACEABLE TO IDMS STANDARD GLUCOSE 88 65 - 99 mg/dL 06/08/2025 12:28 PM EDT [facility] CALCIUM 9.8 8.5 - 10.5 mg/dL 06/08/2025 12:28 PM EDT [facility] EGFR Non-Race Dependent >90 >=60 ml/min/1.7 3sq.m 06/08/2025 12:28 PM EDT [facility] Comment: Reported eGFR is based on the CKD-EPI 2020 equation that does not use a race coefficient. Blood Venous blood / Unknown Venipuncture / Unknown 06/08/2025 8:52 AM EDT 06/08/2025 8:52 AM EDT us Jesenia Peng FURNITURE MANAGER-COMMUNITY ORGANIZATION WORKER LAB BLOOD ORDERABLES Fi nal Result [facility] [address] [place] [address], [place] [phone] documented in this encounter Visit Diagnoses Diagnosis [...] documented as of this encounter Care Teams Polishing Wheel Repairer Relationship Specialty Start Date End Date Jesenia Peng APRN-COMMUNITY ORGANIZATION WORKER [address] [place] [address], [address] [place] [address] PCP - General 03/19/15 documented as of this encounter
--- OUTSIDE RECORDS SUMMARY | 2025-07-26 11:24 | XMS_ITS | Encounter Summary ---
Author Organization [facility] Address [facility] [id number] [address] [place] [address] Care Team Providers Care Product Support Analyst Name Role Phone Jesenia Peng MEDICAL PHYSICS TEACHER-LEGISLATIVE ADVOCATE Primary Care Provider Reason for Visit * Reason Comments Med Refill Encounter Details Date Type Department Care Team (Late st Contact Info) Description 05/18/2025 Refill [facility] Rheumatology [address] [place] [phone] Neli Clemente MD MPH [address] [place] [phone] Neck pain; Muscle tension pain Social [...] Office Visit [facility], A Department of [address], [address], [address] [place] [phone] Trice Stinson MD [address] [place] [address] 101, 102, 103 [place] [address] 08/03/2025 9:30 AM EDT Procedure visit [facility] On [address] [address] 08/07/2025 11:00 AM EDT Office Visit [facility] [address] [facility] [address] [place] [phone] Isidro Woodall DO [address] [facility] [address] [place] [address] 08/07/2025 11:00 AM EDT Appointment [facility] Radiology [address] [place] [address] 08/09/2025 12:00 PM EDT Hospital Encounter [facility] - Endoscopy [address] [place] [address] Cliff Greenfield MD 57[address] [facility], [address] [place] [address] 08/09/2025 12:00 PM EDT - 08/09/2025 12:30 PM EDT Surgery [facility] - Endoscopy [address] [place] [address] Cliff Greenfield MD [address] [place] [address], [address] [place] [address] ESOPHAGOGASTRODUODENOSCOPY DIAGNOSTIC [20622 (CPT )] 08/21/2025 2:30 PM EDT Appointment [facility] Rad[facility] [address] [place] [address] 08/22/2025 2:30 PM EDT Office Visit [facility] [address] [facility] 170 [place] [address] Isidro Woodall, DO 2865 [facility] [address] [place] [address] 08/23/2025 1:30 PM EDT Office Visit [facility] [address] [facility] [address] [place] [phone] Jesenia Peng, MEDICAL PHYSICS TEACHER-LEGISLATIVE ADVOCATE [address] [facility], [address] [place] [address] 09/26/2025 1:30 PM EST Office Visit [facility], A Department of [address] [address] Neli Clemente MD MPH [address] [place] [address] 10/13/2025 11:45 AM EST Office Visit [facility] Cardiology [address] [place] [phone] Duong Johnson, DO [address] [place] [address], [address] [place] [address] 10/13/2025 3:15 PM EST Office Visit [facility], A Department of [address] [place] [address] Ines Uribe PA-C 5700 [facility], [address] [place] [address] 11/14/2025 12:20 PM EST Office Visit [facility] [address] [facility] [address] [place] [address] Ofelia Pierce V MEDICAL PHYSICS TEACHER-LEGISLATIVE ADVOCATE [address] [facility] [address] [place] [address] 11/21/2025 12:30 PM EST Appointment [facility] [place] - Mammography [address] [place] [address] Scheduled Procedures Name Priority Associated Diagnoses Date/Ti [...] documented as of this encounter Care Teams Product Support Analyst Relationship Specialty Start Date End Date Jesenia Peng, MEDICAL PHYSICS TEACHER-LEGISLATIVE ADVOCATE [address] [facility], [address] [place] [address] PCP - General 03/19/15 documented as of this encounter
--- OUTSIDE RECORDS SUMMARY | 2025-07-26 11:24 | XMS_ITS | Encounter Summary ---
Author Organization [facility] tem Address [id number] [address] [place] [address] Care Team Providers Care Laundry Machine Tender Name Role Phone Jesenia Peng PANTOGRAPHER-POT PUSHER Primary Care Provider Encounter Details Date Type Department Care Team (Latest Contact Info) Description 06/09/2025 Results Follow-Up [facility] Rheumatology, A Department of [address] [phone] Neli Clemente MD MPH [address] [place] [phone] C-reactive protein, Erythrocyte Sedimentation Rate (ESR), [...] Office Visit [facility], A Department of [address], [address], [address] [place] [address] Trice Stinson MD [address] [place] [address] 101, 102, [address] [place] [address] 08/03/2025 9:30 AM EDT Procedure visit [facility] On [address] [address] 08/07/2025 11:00 AM EDT Office Visit [facility] [address] [address] Isidro Woodall DO [address] [facility] [address] [place] [address] 08/07/2025 11:00 AM EDT Appointment [facility] Radiology [address] [place] [address] 08/09/2025 12:00 PM EDT Hospital Encounter [facility] - Endoscopy [address] [place] [address] [place] [address] [place] [address], [address] [facility] [place] [address] 08/09/2025 12:00 PM EDT - 08/09/2025 12:30 PM EDT Surgery [facility] - Endoscopy [address] [place] [phone] Cliff Greenfield MD 57[address] [facility], [address] [place] [address] ESOPHAGOGASTRODUODENOSCOPY DIAGNOSTIC [[id number] (CPT )] 08/21/2025 2:30 PM EDT Appointment [facility] Radiology [address] [place] [address] 08/22/2025 2:30 PM EDT Office Visit [facility] [address] [facility] 170 [place] [address] Isidro Woodall DO 2865 [facility] [address] [place] [address] 08/23/2025 1:30 PM EDT Office Visit [facility] [address] [facility] 170 [place] [address] Jesenia Peng, PANTOGRAPHER-POT PUSHER [address] [facility], [address] [place] [address] 09/26/2025 1:30 PM EST Office Visit [facility], A Department of [address] [phone] Neli Clemente MD MPH [address] [place] [phone] 10/13/2025 11:45 AM EST Office Visit [facility] Cardiology [address] [place] [phone] Duong Johnson DO [address] [place] [address], [address] [place] [address] 10/13/2025 3:15 PM EST Office Visit [facility], A Department of [address] [place] [address] Ines Uribe PA-C [address] [place] [address], [address] [place] [address] 11/14/2025 12:20 PM EST Office Visit [facility] [address] [facility] [address] [place] [phone] Ofelia Pierce V, PANTOGRAPHER-POT PUSHER [address] [facility] [address] [place] [address] 11/21/2025 12:30 PM EST Appointment [facility] [place] - Mammography [address] [place] [address] Scheduled Procedures Name Priority Associated Diagnoses Date/Ti [...] documented as of this encounter Care Teams Laundry Machine Tender Relationship Specialty Start Date End Date Jesenia Peng, PANTOGRAPHER-POT PUSHER [address] [facility], [address] [place] [address] PCP - General 03/19/15 documented as of this encounter
--- OUTSIDE RECORDS SUMMARY | 2025-07-26 11:24 | XMS_ITS | Encounter Summary ---
Author Organization [employer] Address [id number] [address] [place] [address] Care Team Providers Care Knife Blade Polisher Name Role Phone Jesenia Peng AQUATIC LIFE LABORER-STONECUTTER APPRENTICE HAND Primary Care Provider Encounter Details Date Type Department Care Team (Late st Contact Info) Description 07/19/2025 [facility]phone [facility] [address] [place] [phone] Radha Urrutia CMA Social History Tobacco Use Types Packs/Day [...] encounter Miscellaneous Notes * Telephone Encounter - Radha Urrutia CMA - 07/19/2025 11:37 AM EDT Prior Authorization/Notification is not required for the requested service(s). This [facility] member's plan does not currently require a prior authorization forthese services. If you have general questions about the prior authorization requirements, please call us at [phone] or visit [employer] > Clinician Resources > Advance and Admission Notification Requirements. The number above acknowledges your notification. Please write this number down for future reference. Notification is not a guarantee of coverage or payment. Decision ID #: [id number] The number above acknowledges your inquiry and [...] clinical documentation Patient details keyboard_arrow_up Patient name MARLENA DIAZ Member number [id number] Group number [id number] Product POS Relationship Spouse Effective date 11/09/2024 Termination date 11/08/2025 Insurance type Commercial Verbal language preference - Written language preference - info A future timeline may be available for this member. For future coverage please call the telephone number located on the back of the member's Medical ID card. Submitting provider details keyboard_arrow_up Name Isidro Woodall Tax ID number [id number] Address [address] [facility] [address], [place] [address] Status In network Service setting keyboard_arrow_up Place of service Office What is place of service? Service description Scheduled What is service description? Ordering provider details keyboard_arrow_up This provider provides the referral or prescription for the services that are going to be rendered.You are able to select an ordering provider either from your favorites, or perform a new provider search. Name ISIDRO WOODALL Tax ID number [id number] Address [address], [place] [address] T. [phone] Status In network Diagnosis code details keyboard_arrow_up [...] of service Code sequence primary Procedure code 72559 NJX AA&/STRD TFRML EPI CERVICAL/THORACIC 1 LEVEL Associated diagnosis code M54.12 Radiculopathy, cervical region Start/end dates 07/19/2025 - 10/08/2025 Service Details Pain Management Count info 1 Standard of Measure info Visits Frequency info Time(s) Total info 1 Selected servicing provider Name ISIDRO WOODALL Tax ID number [id number] Address [address], [place] [address] T. [phone] Status In network documented in this encounter Plan of Treatment Upcoming Encounters Date Type Department Care Team (Latest Contact Info) Description 08/01/2025 2:00 PM EDT Office Visit [facility], [facility] [address], [address] [place] [address] Trice Stinson MD [address] [place] [address] 101, 102, 103 [place] [address] 08/03/2025 9:30 AM EDT Procedure visit [facility] On [address] [address] 08/07/2025 11:00 AM EDT Office Visit [facility] Rehabilitation [address] [facility] [address] [place] [address] Isidro Woodall, DO [address] [facility] [address] [place] [address] 08/07/2025 11:00 AM EDT Appointment [facility] Radiology [address] [facility] [place] [address] 08/09/2025 12:00 PM EDT Hospital Encounter [facility] - Endoscopy [address] [place] [address] [place] [address] [place] [address], [address] [facility] [place] [place] [address] 08/09/2025 12:00 PM EDT - 08/09/2025 12:30 PM EDT Surgery [facility] - Endoscopy [address] [place] [address] [place] [address] [place] [address], [address] [place] [address] ESOPHAGOGASTRODUODENOSCOPY DIAGNOSTIC [44560 (CPT )] 08/21/2025 2:30 PM EDT Appointment [facility] Radiology [address] [place] [address] 08/22/2025 2:30 PM EDT Office Visit [facility] Physical Medicine and Rehabilitation [address] [facility] [address] [place] [address] Isidro Woodall, DO [address] [facility] [address] [place] [address] 08/23/2025 1:30 PM EDT Office Visit [facility] [address] [facility] [address] [place] [address] Jesenia Peng, AQUATIC LIFE LABORER-STONECUTTER APPRENTICE HAND [address] [facility], [address] [place] [address] 09/26/2025 1:30 PM EST Office Visit [facility], A Department of [address] [place] [address] Neli Clemente MD MPH [address] [place] [address] [address] [place] [address] 10/13/2025 11:45 AM EST Office Visit [facility] Cardiology [address] [place] [address] 202 [place] [address] Duong Johnson, [address] [facility], [address] [place] [address] 10/13/2025 3:15 PM EST [facility], A Department of [address] [place] [phone] Ines Uribe, PA-C [address] [place] [address], [address] [place] [address] 11/14/2025 12:20 PM EST Office Visit [facility] Medicine [facility] Rehabilitation [address] [place] [address] Ofelia Pierce V, AQUATIC LIFE LABORER-STONECUTTER APPRENTICE HAND [address] [place] [address] 11/21/2025 12:30 PM EST Appointment [facility] [address] [place] [address] Scheduled Procedures Name Priority Associated Diagnoses Date/Ti mi ESOPHAGOGASTRODUODENOSCOPY DIAGNOSTIC Esophageal dysphagia (R13.19) 08/09/2025 12:00 [...] documented as of this encounter Care Teams Knife Blade Polisher Relationship Specialty Start Date End Date Jesenia Peng APRN-STONECUTTER APPRENTICE HAND [address] [place] [address], [address] [place] [address] PCP - General 03/19/15 documented as of this encounter
--- OUTSIDE RECORDS SUMMARY | 2025-07-26 11:24 | XMS_ITS | Encounter Summary ---
Author Organization [facility] [employer] Address [facility]-[id number] [address] [place] [address] Care Team Providers Care Police Lieutenant Patrol Name Role Phone Jesenia Peng SPACE SCIENCES DIRECTOR-FILER REPAIRER Primary Care Provider Reason for Visit * Reason Onset Date Comments Med Refill 07/14/2025 Encounter Details Date Type Department Care Team (Late st Contact Info) Description 07/14/2025 Refill [facility], A Department of [facility] [address] [facility] [address], [address], [address] [place] [phone] Osvaldo Bernal Insomnia due to medical condition; REM sleep [...] encounter Miscellaneous Notes * Telephone Encounter - Osvaldo Bernal - 07/14/2025 1:51 PM EDT Medication Refill request: Medication Name and Strength: clonazePAM (KlonoPIN) 0.5 mg tablet Current dose & Frequency: 1 tablet in the morning and 3 tablets at night 30 day or 90 day supply preferred: 90 Pharmacy Name: [facility] [phone] Request was made by: Patient * Telephone Encounter - Shavonne Clarke CMA - 07/14/2025 1:51 PM EDT Med Refill Med: clonazePAM (KlonoPIN) 0.5 mg tablet Days Of Supply : 90 Patients Last Office Visit: 05/17/25 Next Office Visit: 08/01/25 Current Pharmacy :[id number] - [place] - [address] [address] [place] [address] documented in this encounter Plan of Treatment Upcoming Encounters Date Type Department Care Team (Latest Contact Info) Description 08/01/2025 2:00 PM EDT Office Visit [facility], A Department of [address], [address], [address] [place] [address] Trice Stinson MD [address] [place] [address] 101, 102, 103 [place] [address] 08/03/2025 9:30 AM EDT Procedure visit [facility] On [address] [address] 08/07/2025 11:00 AM EDT Office Visit [facility] Rehabilitation [address] [place] [address] Isidro Woodall, DO [address] [facility] [address] [place] [address] 08/07/2025 11:00 AM EDT Appointment [facility] Radiology [address] [place] [address] 08/09/2025 12:00 PM EDT Hospital Encounter [facility] - Endoscopy [address] [place] [address] [place] [address] [place] [address], [address] [place] [address] 08/09/2025 12:00 PM EDT - 08/09/2025 12:30 PM EDT Surgery [facility] - Endoscopy [address] [facility] [place] [address] [place] [address] [place] [address], [address] [place] [address] ESOPHAGOGASTRODUODENOSCOPY DIAGNOSTIC [51421 (CPT )] 08/21/2025 2:30 PM EDT Appointment [facility] Radiology [address] [place] [address] 08/22/2025 2:30 PM EDT Office Visit [facility] Medicine [facility] Rehabilitation [address] [facility] 170 [place] [address] Isidro Woodall, DO [address] [facility] [address] [place] [address] 08/23/2025 1:30 PM EDT Office Visit [facility] [address] [facility] 170 [place] [address] Jesenia Peng SPACE SCIENCES DIRECTOR-FILER REPAIRER [address] [facility], [address] [place] [address] 09/26/2025 1:30 PM EST [facility], A Department of [address] [place] [address] Neli Clemente MD MPH [address] [place] [phone] 10/13/2025 11:45 AM EST Office Visit [facility] Cardiology [address] [place] [address] [address] [place] [address] Duong Johnson, DO [address] [place] [address], [address] [place] [address] 10/13/2025 3:15 PM EST Office Visit [facility], A Department of [address] [place] [address] Ines Uribe, SOPHY-C [address] [place] [address], [address] [place] [address] 11/14/2025 12:20 PM EST Office Visit [facility] Rehabilitation [address] [facility] 170 [place] [address] Ofelia Pierce V, SPACE SCIENCES DIRECTOR-FILER REPAIRER [address] [facility] [address] [place] [address] 11/21/2025 12:30 PM EST Appointment [facility] [address] [place] [phone] Scheduled Procedures Name Priority Associated Diagnoses Date/Ti [...] documented as of this encounter Care Teams Police Lieutenant Patrol Relationship Specialty Start Date End Date Jesenia Peng APRN-JONEL [address] [place] [address], [address] [place] [address] PCP - General 03/19/15 documented as of this encounter
--- OUTSIDE RECORDS SUMMARY | 2025-07-26 11:25 | XMS_ITS | Clinical Summary ---
Author Organization [facility] Address [address] [place] [address] Care Team Providers Care Hospital Mortician Name Role Phone Unavailable Primary Care Provider [...] Description 05/11/2025 1:30 PM EDT Walk In [facility] [address] [place] [phone] Jesenia Hou, RAPIER INSERTION LOOM FIXER Laceration of left lower leg, initial encounter [...] exercise at this level? 0 min 06/17/2024 C - Social Connections Answer Date Re corded If for any reason you need h elp with activities of daily living such as bathing, preparing meals, shopping, managing finances, etc., do you get the help that you need? I don't need any help 06/17/2024 How often do you feel lonely or isolated from those around you? Rarely 06/17/2024 Financial Resource Strain (CARDIA/PRAPARE) Answe r Date Recorded How hard is it for you to [...] when it was really needed? No 06/17/2024 [facility] - Stress Questionnaire Answer Date Recorded Stress means a situation in which a person feels tense, restless, nervous, or anxious, or is unable to sleep at night because his or her mind is troubled all the time. Do you feel this kind of stress these days? A little bit 06/17/2024 Hunger Vital Sign Answer Date Recorded Within the past 12 months, t he food you bought just didn't last and you didn't have money to get more. Never true 06/16/2024 Within the past 12 months, y ou worried that your food would run out before you got money to buy more. Never true 06/16/2024 PRAPARE - Transportation Answer Date Re corded In the past 12 months, has l ack of reliable transportation kept you from medical appointments, meetings, work or from getting things needed for daily living? No 06/17/2024 AHC - Inadequate Housing Answer Date Re corded What is your living situation today? I [...] Housing Concerns Not on file 024 [facility] - Health Literacy Answer D ate Recorded Do you ever need help reading medical materials? No 06/17/2024 SIPP - Childcare Access Answer Date Rec orded Do problems getting childcar e make it difficult for you to work or study? No 06/17/2024 AHC - Utilities Answer Date Recorded In the past 12 months, has t [...] Health Maintenance Due Date Last Done Comments [facility] Medicare Annual Wellness Visit (MAWV) 1951 CT Colonography 1950 Cologuard 1950 Colonoscopy 1950 Colorectal Cancer Screening 1950 Flexible Sigmoidoscopy 1950 Occult Blood Fecal Immuno Test (FIT) Screen 1950 [facility] Fall Risk Assessment 1950 [facility] Depression Screen 1963 RSV for patients and patients 60yrs or older (1 - Risk 60-74 years 1-dose series) 2011 Influenza Vaccine(s) [id number] (#1) 07/10/2025 11/14/2022, 10/24/2021, 08/27/2020, Additional history exists Mammogram [...] to complete this topic Insurance MEDICARE [facility] 03 Advance Directives * Full Code (Latest Code Status on File) Date Activated Date Inactivated Comments 06/16/2024 10:40 PM 06/17/2024 6:01 PM Code Status o rder may be entered by two registered nurses who receive telephone order from attending physician. Code Status order will be invalid after 24 hours unless signed by physician.
--- OUTSIDE RECORDS SUMMARY | 2025-07-26 11:25 | XMS_ITS | Encounter Summary ---
Author Organization [employer] Address [id number] [address] [place] [address] Care Team Providers Care Integrated Marketing Manager Name Role Phone Jesenia Peng RUN LEAD-FLUSH TESTER Primary Care Provider Reason for Visit * Reason Comments Med Refill Encounter Details Date Type Department Care Team (Late st Contact Info) Description 08/12/2022 Refill [facility] [address] [facility] [address] [place] [phone] Jesenia Peng [facility] [address] [facility], [address] [place] [address] Social History Tobacco Use Types Packs/Day Years [...] Description 08/01/2025 2:00 PM EDT Office Visit Derek Lee Department of [address], [address], [address] [place] [phone] Trice Stinson MD [address] [place] [address] 101, 102, 103 [place] [address] 08/03/2025 9:30 AM EDT Procedure visit [facility] On [address] [address] 08/07/2025 11:00 AM EDT Office Visit [facility] Rehabilitation [address] [address] Isidro Woodall DO [address] [address] 08/07/2025 11:00 AM EDT Appointment [facility] Radiology [address] [place] [address] 08/09/2025 12:00 PM EDT Hospital Encounter [facility] - Endoscopy [address] [place] [address] [place] [address] [place] [address], [address] [facility] [place] [address] 08/09/2025 12:00 PM EDT - 08/09/2025 12:30 PM EDT Surgery [facility] - Endoscopy [address] [place] [address] [place] [address] [place] [address], [address] [place] [address] ESOPHAGOGASTRODUODENOSCOPY DIAGNOSTIC [01016 (CPT )] 08/21/2025 2:30 PM EDT Appointment [facility] Radiology [address] [place] [address] 08/22/2025 2:30 PM EDT Office Visit [facility] Rehabilitation [address] [facility] [address] [place] [address] Isidro Woodall, DO [address] [facility] 170 [place] [address] 08/23/2025 1:30 PM EDT Office Visit [facility] [address] [facility] [address] [place] [address] Jesenia Peng, RUN LEAD-FLUSH TESTER [address] [facility], [address] [place] [address] 09/26/2025 1:30 PM EST [facility], A Department of [address] [address] Neli Clemente MD MPH [address] [place] [address] 10/13/2025 11:45 AM EST Office Visit [facility] Cardiology [address] [place] [phone] Duong Johnson, DO [address] [place] [address], [address] [place] [address] 10/13/2025 3:15 PM EST Office [facility], A Department of [address] [phone] Ines Uribe, PARaphaelC [address] [facility], [address] [place] [address] 11/14/2025 12:20 PM EST Office Visit [facility] [address] [place] [address] Ofelia Pierce V RUN LEAD-FLUSH TESTER [address] [place], [place] [address] 11/21/2025 12:30 PM EST Appointment [facility] [place] - Mammography [address] [place] [address] Scheduled Procedures Name Priority Associated [...] documented as of this encounter Care Teams Integrated Marketing Manager Relationship Specialty Start Date End Date Jesenia Peng RUN LEAD-FLUSH TESTER [address] [facility], [address] [place] [address] PCP - General 03/19/15 documented as of this encounter
--- OUTSIDE RECORDS SUMMARY | 2025-07-26 11:25 | XMS_ITS | Encounter Summary ---
Author Organization [employer] Address [facility][id number] [address] [place] [address] Care Team Providers Care Induction Coordination Engineer Name Role Phone Jesenia Peng [facility] Primary Care Provider Reason for Visit * Reason Comments Med Refill Encounter Details Date Type Department Care Team (Late st Contact Info) Description 08/08/2022 Refill [facility] Neurology [address] [place] [phone] Jaja Hayes APRN-[address], [facility] 101, 102, [address] [place], [place] [phone] Parkinson's disease ([facility]) Social History Tobacco Use Types Packs/Day Years [...] Description 08/01/2025 2:00 PM EDT Office Visit Rishi Lee Department of [address] 101, [address], [address] [place] [phone] Trice Stinson MD [address] [place] [address] 101, 102, [address] [place] [address] 08/03/2025 9:30 AM EDT Procedure visit [facility] On [address] [address] 08/07/2025 11:00 AM EDT Office Visit [facility] [address] [address] Isidro Woodall DO [address] [facility] 170 [place] [address] 08/07/2025 11:00 AM EDT Appointment [facility] Radiology [address] [place] [address] 08/09/2025 12:00 PM EDT Hospital Encounter [facility] - Endoscopy [address] [place] [address] [place] [address] [place] [address], [address] [place] [address] 08/09/2025 12:00 PM EDT - 08/09/2025 12:30 PM EDT Surgery [facility] - Endoscopy [address] [place] [address] [place] [address] [place] [address], [address] [place] [address] ESOPHAGOGASTRODUODENOSCOPY DIAGNOSTIC [34877 (CPT )] 08/21/2025 2:30 PM EDT Appointment [facility] Radiology [address] [place] [address] 08/22/2025 2:30 PM EDT Office Visit [facility] [address] [facility] 170 [place] [address] Isidro Woodall, DO [address] [facility] 170 [place] [address] 08/23/2025 1:30 PM EDT Office Visit [facility] [address] [facility] 170 [place] [address] Jesenia Peng, TANK TERMINAL GAUGER-PLASTIC MAKER [address] [facility], [address] [place] [address] 09/26/2025 1:30 PM EST Office Visit [facility], A Department of [address] [address] [place] [address] [place] [address] 10/13/2025 11:45 AM EST Office Visit [facility] Cardiology [address] [place] [address] [address] [place] [address] Duong Johnson, DO [address] [place] [address], [address] [place] [address] 10/13/2025 3:15 PM EST [facility], A Department of [address] [phone] Ines Uribe, PA-C [address] [facility], [address] [place] [address] 11/14/2025 12:20 PM EST Office Visit [facility] [address] [place] [address] Ofelia Pierce APRN-PLASTIC MAKER [address] [place] [address] 11/21/2025 12:30 PM EST Appointment [facility] [place] - Mammography [address] [place] [address] Scheduled Procedures Name Priority Associated [...] documented as of this encounter Care Teams Induction Coordination Engineer Relationship Specialty Start Date End Date Jesenia Peng APRN-PLASTIC MAKER [facility], [address] [place] [address] PCP - General 03/19/15 documented as of this encounter
--- OUTSIDE RECORDS SUMMARY | 2025-07-26 11:25 | XMS_ITS | Encounter Summary ---
Author Organization [facility] Sys tem Address [id number] [address] [place] [address] Care Team Providers Care Supervisor Fusing Room Name Role Phone Jesenia Peng BLASTING ENTRYMAN-CEMENT HANDLER Primary Care Provider Encounter Details Date Type Department Care Team (Late st Contact Info) Description 12/03/2022 Orders Only [facility] [address] [place] [phone] Jaja Sanabria MA Encounter for screening mammogram [...] Office Visit [facility], A Department of [address], [address] [place] [address] Trice Stinson MD [address] [place] [address], [address], [address] [place] [address] 08/03/2025 9:30 AM EDT Procedure visit [facility] On [address] [place] [address] 08/07/2025 11:00 AM EDT Office Visit [facility] [address] [facility] [address] [place] [address] Isidro Woodall DO [address] [facility] [address] [place] [address] 08/07/2025 11:00 AM EDT Appointment [facility] Radiology [address] [place] [address] 08/09/2025 12:00 PM EDT Hospital Encounter [facility] - Endoscopy [address] [place] [address] [place] [address] [place] [address], [address] [place] [address] 08/09/2025 12:00 PM EDT - 08/09/2025 12:30 PM EDT Surgery [facility] - Endoscopy [address] [place] [address] Cliff Greenfield MD [address] [place] [address], [address] [place] [address] ESOPHAGOGASTRODUODENOSCOPY DIAGNOSTIC [70408 (CPT )] 08/21/2025 2:30 PM EDT Appointment [facility] [address] [facility] [address] 08/22/2025 2:30 PM EDT Office Visit [facility] [address] [facility] 170 [place] [address] Isidro Woodall, DO [address] [facility] [address] [place] [address] 08/23/2025 1:30 PM EDT Office Visit [facility] [address] [facility] 170 [place] [address] Jesenia Peng, BLASTING ENTRYMAN-CEMENT HANDLER [address] [facility], [address] [place] [address] 09/26/2025 1:30 PM EST Office Visit [facility], A Department of [address] [phone] Neli Clemente MD MPH [address] [place] [phone] 10/13/2025 11:45 AM EST Office Visit [facility] Cardiology [address] [place] [phone] Duong Johnson, [address] [place] [address], [address] [place] [address] 10/13/2025 3:15 PM EST Office Visit [facility], A Department of [address] [phone] Ines Uribe PA-C [address] [place] [address], [address] [place] [address] 11/14/2025 12:20 PM EST Office Visit [facility] [address] [place] [phone] Ofelia Pierce APRN-CNP [address] [place] [address] 11/21/2025 12:30 PM EST Appointment [facility] [place] - Mammography [address] [place] [phone] Scheduled Procedures Name Priority Associated Diagnoses Date/Ti [...] Modality Breast Bilateral Mammography 09/12/2021 Jesenia [facility] ORDERAB LES Final Result documented in [...] as of this encounter Care Teams Supervisor Fusing Room Relationship Specialty Start Date End Date Jesenia Peng APRN-CNP [address] [facility], [address] [place] [id number] PCP - General 03/19/15 documented as of this encounter
--- OUTSIDE RECORDS SUMMARY | 2025-07-26 11:25 | XMS_ITS | Encounter Summary ---
Author Organization [facility] Sys tem Address [id number] [address] [place] [address] Care Team Providers Care Tooling Inspector Name Role Phone Jesenia Peng THAW SHED HEATER TENDER-USER INTERFACE DESIGNER Primary Care Provider Encounter Details Date Type Department Care Team (Late st Contact Info) Description 12/11/2022 Orders Only [facility] Gynecology Oncology [address] [place] [phone] Sofie Burrows PARaphaelC [address] [place] [address] Social History Tobacco Use Types [...] 2:00 PM EDT Office Visit [facility], Rishi Department of [address], [address], [address] [place] [phone] Trice Stinson MD [address] [place] [address] 101, 102, 103 [place] [address] 08/03/2025 9:30 AM EDT [facility] On [address] [address] 08/07/2025 11:00 AM EDT Office Visit [facility] [address] [address] Isidro Woodall DO [address] [address] 08/07/2025 11:00 AM EDT Appointment [facility] Rad[facility] [address] [place] [address] 08/09/2025 12:00 PM EDT Hospital Encounter [facility] - Endoscopy [address] [place] [phone] Cliff Greenfield MD [address] [place] [address], [address] [facility] [place] [address] 08/09/2025 12:00 PM EDT - 08/09/2025 12:30 PM EDT Surgery [facility] - Endoscopy [address] [place] [address] Cliff Greenfield MD [address] [place] [address], [address] [facility] [place] [address] ESOPHAGOGASTRODUODENOSCOPY DIAGNOSTIC [61060 (CPT )] 08/21/2025 2:30 PM EDT Appointment [facility] [address] [place] [address] 08/22/2025 2:30 PM EDT Office Visit [facility] [address] [facility] 170 [place] [address] Isidro Woodall, DO [address] [facility] 170 [place] [address] 08/23/2025 1:30 PM EDT Office Visit [facility] [address] [facility] 170 [place] [address] Jesenia Peng, THAW SHED HEATER TENDER-USER INTERFACE DESIGNER [address] [facility], [address] [place] [address] 09/26/2025 1:30 PM EST Office Visit [facility], A Department of [address] [phone] Neli Clemente MD MPH [address] [place] [phone] 10/13/2025 11:45 AM EST Office Visit [facility] Cardiology [address] [place] [address] [address] [place] [address] Duong Johnson, DO [address] [place] [address], [address] [place] [address] 10/13/2025 3:15 PM EST Office Visit [facility], A Department of [address] [phone] Ines Uribe, PA-C [address] [place], [place] [phone] [place] [address] 11/14/2025 12:20 PM EST Office Visit [facility] [address] [place] [phone] Ofelia Pierce V THAW SHED HEATER TENDER-USER INTERFACE DESIGNER [address] [place] [address] 11/21/2025 12:30 PM EST Appointment [facility] [employer] - Mammography [address] [place] [phone] Scheduled Procedures Name Priority Associated Diagnoses Date/Ti [...] documented as of this encounter Care Teams Tooling Inspector Relationship Specialty Start Date End Date Jesenia Peng, THAW SHED HEATER TENDER-USER INTERFACE DESIGNER [address] [facility], [address] [place] [address] PCP - General 03/19/15 documented as of this encounter
--- OUTSIDE RECORDS SUMMARY | 2025-07-26 11:25 | XMS_ITS | Encounter Summary ---
Author Organization [facility] Sys tem Address [facility]-[id number] [address] [place] [address] Care Team Providers Care Archivist Nonprofit Foundation Name Role Phone Jesenia Peng CONCERT PROMOTER-NETSUITE DEVELOPER Primary Care Provider Encounter Details Date Type Department Care Team (Late st Contact Info) Description 08/19/2024 Orders Only [facility] [address] [facility] [address] [place] [address] Jesenia Pneg CONCERT PROMOTER-NETSUITE DEVELOPER [address] [facility], [address] [place], [place] [phone] Mixed hyperlipidemia (Primary Dx) Social History Tobacco [...] Office Visit [facility], A Department of [address], [address], [address] [place] [address] Trice Stinson MD [address] [place] [address] 101, 102, 103 [place] [address] 08/03/2025 9:30 AM EDT Procedure visit [facility] On [address] [address] 08/07/2025 11:00 AM EDT Office Visit [facility] [address] [facility] [address] [place] [address] Isidro Woodall DO [address] [facility] [address] [place] [address] 08/07/2025 11:00 AM EDT Appointment [facility] [address] [place] [address] 08/09/2025 12:00 PM EDT Hospital Encounter [facility] - Endoscopy [address] [place] [phone] Cliff Greenfield MD [address] [place] [address], [address] [facility] [place] [place] [address] 08/09/2025 12:00 PM EDT - 08/09/2025 12:30 PM EDT Surgery [facility] - Endoscopy [address] [place] [phone] [place] [address] [place] [address], [address] [place] [address] ESOPHAGOGASTRODUODENOSCOPY DIAGNOSTIC [30747 (CPT )] 08/21/2025 2:30 PM EDT Appointment [facility] [address] [place] [address] 08/22/2025 2:30 PM EDT Office Visit [facility] [address] [facility] 170 [place] [address] Isidro Woodall DO [address] [facility] 170 [place] [address] 08/23/2025 1:30 PM EDT Office Visit [facility] [address] [phone] Jesenia Peng, CONCERT PROMOTER-NETSUITE DEVELOPER [facility]5 [facility]170 [place] [address] 09/26/2025 1:30 PM EST Office Visit [facility], A Department of [address] [phone] Neli Clemente MD MPH [address] [place] [address] 10/13/2025 11:45 AM EST Office Visit [facility] Card[facility] [address] [place] [phone] Duong Johnson, [address] [place] [address] 10/13/2025 3:15 PM EST Office Visit [facility], A Department of [address] [phone] Ines Uribe PA-C [address] [facility], [address] [place] [address] 11/14/2025 12:20 PM EST Office Visit [facility] [address] [place] [phone] Ofelia Pierce V, CONCERT PROMOTER-NETSUITE DEVELOPER [address] [place] [address] 11/21/2025 12:30 PM EST Appointment [facility] [address] [place] [phone] Scheduled Procedures Name Priority Associated Diagnoses Date/Ti [...] documented as of this encounter Care Teams Archivist Nonprofit Foundation Relationship Specialty Start Date End Date Jesenia Peng, CONCERT PROMOTER-NETSUITE DEVELOPER [address] [facility], [address] [place] [address] PCP - General 03/19/15 documented as of this encounter
--- OUTSIDE RECORDS SUMMARY | 2025-07-26 11:25 | XMS_ITS | Clinical Summary ---
Author Organization Wego tem Address [id number] [address] [place] [address] Care Team Providers Care Crematory Attendant Name Role Phone Jesenia Peng Yogesh GARCIA-FLAT LOCK OPERATOR Primary Care Provider Allergies Active Allergy Reactions [...] acid (FOLVITE) 1 mg tabletIndications :Inflammatory polyarthritis ([facility]),Seroneg ative rheumatoid arthritis ([facility]) Take 1 tablet (1 mg total) by mouth in the morning. 90 tablet 3 024 Active furosemide (LASIX) 20 mg tablet Take 1 tablet (20 mg total) by mouth daily. Active pramipexole (MIRAPEX) 0.25 mg tabletIndications :Parkinson's disease ([facility]),Restles s leg syndrome TAKE 1 TABLET BY MOUTH 3 TIMES DAILY 270 tablet 3 025 Active rasagiline (AZILECT) 1 mg tabletIndications [...] :Parkinson's disease with dyskinesia and fluctuating manifestations ([facility]) Take 2 tabs 6am, 1 tab 1130am, [...] methotrexate 2.5 mg chemo tabletIndications :Inflammatory polyarthritis ([facility]),Seroneg ative rheumatoid arthritis ([facility]),Medicat ion monitoring encounter Take 9 tablets by mouth once a week 108 tablet 025 2024 Active albuterol (PROVENTIL HFA;VENTOLIN HFA) 90 mcg/actuation inhalerIndication s:Wheezing Inhale 2 puffs every 6 (six) hours as needed for wheezing. 18 g 2 025 Active amantadine (SYMMETREL) 100 mg tabletIndications :Parkinson's disease ([facility]) Take 1-2 tablets by mouth at 6am and 1 tablet at 12pm 270 tablet 3 025 Active predniSONE (DELTASONE) 20 mg tabletIndications :COPD exacerbation ([facility]) Take two tablets (40 mg) daily with food for 5 days 10 tablet 025 Active clonazePAM (KlonoPIN) 0.5 mg tabletIndications :Insomnia due to medical condition,REM sleep behavior disorder Take 3 tablets at bedtime 270 tablet 1 025 Active clonazePAM (KlonoPIN) 0.5 mg tabletIndications :Insomnia due to medical condition,REM sleep behavior disorder Take 3 tablets at bedtime 270 tablet 1 025 2024 Discontinued(R eorder) amantadine (SYMMETREL) 100 mg tabletIndications :Parkinson's disease ([facility]) Take 1-2 tabs at 6am and 1 tab at 12pm PO. 270 tablet 3 025 2024 Discontinued doxycycline (VIBRA-TABS) 100 mg tabletIndications :COPD exacerbation ([facility]) Take 1 tablet (100 mg total) by mouth in the morning and 1 tablet (100 mg total) before bedtime. Do all this for 7 days. 14 tablet 025 2024 Active Problems Problem Noted Date Diagnosed Date [...] Encounters Date Type Department Care Team Description 07/25/2025 Results Follow-Up [facility] Neurology, A Department of [facility] [address] [facility] [address] [place] [address] Trice Stinson MD Fluoroscopy swallow motility function 07/20/2025 10:45 AM EDT Office Visit [facility], A Department of [address] [place] [address] Cliff Greenfield MD Esophageal dysphagia (Primary Dx); 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 07/20/2025 Telephone [facility], A Department of [address] [place] [address] Consultants, [facility] 07/19/2025 Telephone [facility] [address] [place] [address] Radha Urrutia CMA 07/19/2025 Travel 07/14/2025 Refill [facility], A Department of [address] [place] [address] Osvaldo Bernal A Insomnia due to medical condition; REM sleep behavior disorder 07/13/2025 1:00 PM EDT Office Visit [facility] [address] [place] [address] Jesenia Peng, TRADING ASSISTANT-FLAT LOCK OPERATOR Acute cough (Primary Dx); Wheezing; Shortness of breath; COPD exacerbation ([facility]) 07/13/2025 Travel 07/04/2025 Telephone [facility], A Department of [facility] [address] [facility] [address] [place] [address] Trice Stinson MD 07/03/2025 Telephone [facility], A Department of [address] [place] [address] Kendy Navarrete RMA 07/03/2025 Orders Only [facility], A Department of [address] [place] [phone] Ines Uribe PA-C 06/30/2025 Telephone [facility], A Department of [place] [id number] [facility] [address] [place] [address] Marlena Gaytan Med Refill 06/30/2025 Refill [facility] Neu[facility] [address] [place] [address] Trice Stinson MD Parkinson's disease ([facility]) 06/29/2025 Telephone [facility], A Department of [address] [place] [address] Aiden Jones, [facility] 06/29/2025 Telephone [facility], A Department of [address] [place] [address] Brenna Case, [facility] 06/29/2025 Telephone [facility] [address] [facility] [address] [place] [address] [facility] 06/28/2025 1:00 PM EDT - 06/28/2025 11:59 PM EDT Hospital Encounter [facility] a Division of [facility] - Radiology [address] [place] [address] Trice Stinson MD Dysphagia, unspecified type Discharge Disposition: Home 06/27/2025 1:21 PM EDT - 06/27/2025 2:40 PM EDT Emergency [facility] [address] [place] [address] Upper respiratory tract infection, unspecified type (Primary Dx) Discharge Disposition: Home 06/27/2025 Results Follow-Up [facility], A Department of [address] [place] [address] Neli Clemente MD MPH X-ray spine lumbar 2 or 3 views 06/27/2025 Travel 06/27/2025 Refill [facility] [address] [place] [address] Cee Tolentino CMA Wheezing 06/22/2025 12:40 PM EDT - 06/22/2025 11:59 PM EDT Hospital Encounter [facility] - Radiology Imaging [address] [facility] [address] [place] [address] Inflammatory polyarthritis ([facility]); Seronegative rheumatoid arthritis ([facility]-HCC); Primary osteoarthritis involving multiple joints; Chronic bilateral low back pain without sciatica Discharge Disposition: Home 06/22/2025 12:00 PM EDT Office Visit [facility], A Department of [address] [place] [address] Neli Clemente MD MPH Inflammatory polyarthritis ([facility]) (Primary Dx); Seronegative rheumatoid arthritis ([facility]); Primary osteoarthritis involving multiple joints; Chronic bilateral low back pain without sciatica; Medication monitoring encounter; Neck pain; Muscle tension pain 06/22/2025 Travel 06/19/2025 Refill [facility] Neurology, A Department of [facility] [address] [place] [phone] Dangelo Floyd Parkinson's disease ([facility]) 06/09/2025 Results [facility], A Department of [address] [place] [address] Neli Clemente MD MPH C-reactive protein, Erythrocyte Sedimentation Rate (ESR), Liver panel, Additional followed-up results: 2 06/08/2025 Travel 06/05/2025 Orders Only [facility] [address] [place] [address] Anamaria Perkins CMA Weight loss (Primary Dx); Hyperbilirubinemia; Iron deficiency anemia, unspecified iron deficiency anemia type 05/31/2025 Telephone [facility], A Department of [facility] [address] [facility] [address] [place] [address] Padmaja Lindsay Physical Therapy / Speech Therapy 05/22/2025 Refill [facility] [address] [facility] [address] [place] [address] Cliff Greenfield MD 05/18/2025 Refill [facility] Rheumatology [address] [facility] [address] [place] [address] Neli Clemente MD MPH Neck pain; Muscle tension pain 05/17/2025 10:30 AM EDT Office Visit [facility], A Department of [facility] [address] [place] [address] Trice Stinson MD Parkinson's disease with dyskinesia and fluctuating manifestations ([facility]) (Primary Dx); Dysphagia, unspecified type 05/17/2025 Travel 05/10/2025 Orders Only [facility] [address] [facility] [address] [place] [address] Annalise Rodriguez 05/10/2025 Orders Only [facility] [address] [facility] [address] [place] [address] ThorAnnalise pink 05/09/2025 Telephone [facility] [address] [facility] [address] [place] [address] Stephenie Negro RN Care Navigation 05/05/2025 Telephone [facility] Sports Medicine [address] [facility] [address] [place] [address] Janell Hebert DO 05/05/2025 Telephone [facility] [address] [place] [phone] Amy Flanagan RN Care Navigation 05/03/2025 7:00 AM EDT Office Visit [facility] [address] [facility] [address] [place] [address] John Dominguez MD Health care maintenance (Primary Dx); Iron deficiency anemia, unspecified iron deficiency anemia type; Weight loss; Decreased appetite; Parkinson's disease ([facility]); Inflammatory polyarthritis ([facility]); Primary hypertension; Chronic heart failure with preserved ejection fraction ([facility]); Insomnia, unspecified type; Hyperbilirubinemia; Elevated serum creatinine 05/03/2025 Telephone [facility], A Department of [facility] [address] [place] [address] Padmaja Lindsay call back ; Medical Concern 05/03/2025 Orders Only [facility] [address] [facility] [address] [place] [address] Thorpe, Annalise 05/03/2025 Orders Only [facility] [address] [facility] [address] [place] [address] Thorpe, Annalise Dysuria (Primary Dx); Frequency of urination 04/25/2025 12:20 PM EDT Office Visit [facility] [address] [facility] [address] [place] [address] Ofelia Pierce V, TRADING ASSISTANT-FLAT LOCK OPERATOR Chronic pain syndrome (Primary Dx); Cervical radiculopathy; Neck pain, chronic; Chronic bilateral low back pain without sciatica 04/25/2025 Travel from Last 3 Months Immunizations Immunization [...] Pulse 90 07/20/2025 10:40 AM EDT Temperature 36.2 C (97.1 F) 07/13/2025 1:04 PM EDT Respiratory Rate 22 06/27/2025 1:20 PM EDT Oxygen Saturation 94% 07/13/2025 1:04 PM EDT Inhaled Oxygen Concentration - - Weight 42.8 kg (94 lb 6.4 oz) 07/20/2025 10:40 A M EDT Height 157.5 cm (5' 2.01 ) 07/20/2025 10:40 AM E DT Body Mass Index 17.26 07/20/2025 10:40 AM EDT Plan of Treatment Upcoming Encounters Date Type Department Care Team (Latest Contact Info) Description 08/01/2025 2:00 PM EDT Office Visit [facility], A Department of [address] [place] [phone] Trice Stinson MD [address] [place] [address] [address], [address] [place] [address] 08/03/2025 9:30 AM EDT Procedure visit [facility] On [address] [address] 08/07/2025 11:00 AM EDT Office Visit [facility] [address] [phone] Isidro Woodall DO [address] [address] 08/07/2025 11:00 AM EDT Appointment [facility] Radiology [address] [place] [address] 08/09/2025 12:00 PM EDT Hospital Encounter [facility] - Endoscopy [address] [place] [address] Cliff Greenfield MD [address] [facility], [address] [place] [address] 08/09/2025 12:00 PM EDT - 08/09/2025 12:30 PM EDT Surgery [facility] - Endoscopy [address] [place] [phone] Cliff Greenfield MD [address] [facility], [address] [place] [address] ESOPHAGOGASTRODUODENOSCOPY DIAGNOSTIC [97635 (CPT )] 08/21/2025 2:30 PM EDT Appointment [facility] Radiology [address] [place] [address] 08/22/2025 2:30 PM EDT Office Visit [facility] [address] [facility] [address] [place] [address] Isidro Woodall, DO [address] [facility] [address] [place] [address] 08/23/2025 1:30 PM EDT Office Visit [facility] [address] [facility] [address] [place] [address] Jesenia Peng, TRADING ASSISTANT-FLAT LOCK OPERATOR [address] [facility], [address] [place] [address] 09/26/2025 1:30 PM EST Office Visit [facility], A Department of [address] [address] Neli Clemente MD MPH [address] [facility] [address] [place] [address] 10/13/2025 11:45 AM EST Office Visit [facility] Cardiology [address] [place] [address] [address] [place] [address] Duong Johnson, DO [address] [place] [address], [address] [place] [address] 10/13/2025 3:15 PM EST Office Visit [facility], A Department of [facility] [address] [place] [address] [address] [place] [phone] Ines Uribe PA-C [address] [facility], [address] [place] [address] 11/14/2025 12:20 PM EST Office Visit [facility] [address] [place] [address] Ofelia Pierce V, TRADING ASSISTANT-FLAT LOCK OPERATOR [address] [place] [address] 11/21/2025 12:30 PM EST Appointment [facility] - Mammography [address] [place] [address] Scheduled Procedures Name Priority Associated Diagnoses Date/Ti me ESOPHAGOGASTRODUODENOSCOPY DIAGNOSTIC Esophageal dysphagia (R13.19) 08/09/2025 12:00 PM EDT Health Maintenance Due Date Last Done Comments Fall Risk Screening 2016 Influenza Vaccine 07/10/2025 11/14/2022, , 08/27/2020, Additional history exists Colonoscopy 10/29/2025 10/29/2015 Mammogram 11/04/2025 11/04/2024, 03/0 04/2024, 01/13/2024, Additional history exists Adult BMI Follow Up Plan 02/21/2026 02/21/2025 Depression Screening 07/13/2026 07/13/2025 Adult BMI Screening 07/20/2026 07/20/2025 Tobacco Screening 07/20/2026 07/20/2025 DTaP,Tdap and Td Vaccines (4 - Td [...] Care Plan Autogenerated Problem No Jessie [employer] Not on file Procedures Procedure Name Priority Date/Time Associated Diagnosis Comments XR CHEST 2 VWS STAT 07/13/2025 1:28 PM EDT Acute cough Wheezing Shortness of breath FL SWALLOW MOTILITY FUNCTION Routine 06/28/2025 1:19 PM EDT Dysphagia, unspecified type XR CHEST 2 VWS STAT 06/27/2025 1:57 PM EDT PORTABLE INFLUENZA A/INFLUENZA B Routine 06/27/2025 1:54 PM EDT SARS COV 2 BY NAAT/MOLECULAR (POCT FSED) Routine 06/27/2025 1:53 PM EDT XR SPINE LUMBAR 2 OR 3 VWS Routine 06/22/2025 12:58 PM EDT Inflammatory polyarthritis (CMS-HCC) Seronegative rheumatoid arthritis ([facility]) Primary osteoarthritis involving multiple joints Chronic bilateral [...] Seronegative rheumatoid arthritis (CMS-HCC) Medication monitoring encounter LIVER PANEL Routine 06/08/2025 8:52 AM EDT Inflammatory polyarthritis (CMS-HCC) Seronegative rheumatoid arthritis (CMS-HCC) Medication monitoring encounter ERYTHROCYTE SEDIMENTATION RATE (ESR) Routine 06/08/2025 8:52 AM EDT Inflammatory polyarthritis (CMS-HCC) Seronegative rheumatoid arthritis (CMS-HCC) Medication monitoring encounter C-REACTIVE PROTEIN Routine 06/08/2025 8: 52 AM EDT Inflammatory polyarthritis (CMS-HCC) Seronegative rheumatoid arthritis (CMS-HCC) Medication monitoring encounter MS INBODY 970 BODY COMPOSITION ANALYSIS Routine 05/03/2025 [...] 11:30 AM EDT Health care maintenance MR MASTERSON CARDIAC STAT 04/25/2025 10: 58 AM EDT [...] 04/25/2025 10:03 AM EDT Health care maintenance MAMM DIAGNOSTIC BILATERAL W CAD Routine 11/04/2024 9:26 AM EST Mass of upper inner quadrant of right breast HM COLONOSCOPY Routine 10/29/2015 from Last 3 Months or Most Recently Relevant to Health Maintenance Results * X-ray chest 2 views (07/13/2025 1:28 PM EDT) Only the most recent of2 resultswithin the time period is included. Anatomical Region Laterality Modality Body, Chest N/A [...] Garcia MD on 07/13/2025 1:31 PM Jesenia Peng TRADING ASSISTANT-FLAT LOCK OPERATOR IMG DIAGNOSTIC IMAGING ORDERABLES Final Result * Fluoroscopy swallow motility function (06/28/2025 1:19 [...] MD IMG FLUOROSCOPY ORDERABLES Final Result * Portable Influenza A/Influenza B (06/27/2025 1:54 PM EDT) POC Influenza A by NAAT/Molecular Negative Negative 06/27/2025 2:05 PM EDT [facility] POC Influenza B by NAAT/Molecular Negative Negative 06/27/2025 2:05 PM EDT [facility] 06/27/2025 1:54 PM EDT 06/27/2025 2:05 PM EDT Narrative [facility] - 06/27/2025 [...] OF CARE TEST ORDERABLES Fi nal Result [facility] [address] [place] [address], * SARS CoV 2 by NAAT/Molecular (POCT FSED) (06/27/2025 1:53 PM EDT) SARS CoV2 by NAAT/Molecul ar Presumptive Negative Presumptive Negative 06/27/2025 2:03 PM EDT [facility] Swab Nasopharyngeal structure / Unknown 06/27/2025 1:53 PM EDT 06/27/2025 2:03 PM EDT Narrative [facility] - 06/27/2025 2:03 [...] test is intended for use by medical assisting instructor or trained operators who are proficient in performing tests using the ID NOW instrument. The ID NOW COVID-19 test is only for use under the Food and Drug Administration's Emergency Use Authorization. Fact Sheet for Healthcare Providers: https://www.fda.gov/media/477035/download Fact Sheet for Patients: https://www.fda.gov/media/980037/download us POINT OF CARE TEST ORDERABLES Fi nal Result [facility] [address] [place], [place] [id number], * X-ray spine lumbar 2 or 3 [...] of acute osseous abnormalities. Finalized by Ashok Kraemr MD on 06/24/2025 6:36 AM Neli Clemente MD MPH IMG DIAGNOSTIC IMAGING ORDERABLES Final Result * (ABNORMAL) Erythrocyte Sedimentation Rate (ESR) (06/08/2025 8:52 AM EDT) Only the most recent of2 resultswithin the time period is included. ESR, Erythrocyte Sedimentation Rate 33(H) 0 - 30 mm/h 06/08/2025 12:42 PM EDT [facility] Blood Venous blood / Unknown Venipuncture / Unknown 06/08/2025 8:52 AM EDT 06/08/2025 8:52 AM EDT us Neli Clemente MD MPH LAB BLOOD ORDERABLES F inal Result [facility] [address] [place] [address], * Clinical Pathology Blood Smear Review (06/08/2025 8:52 AM EDT) Case Report Clinical Pathology Report Case: [id number] Authorizing Provider: CIRARA Osei Collected: 06/08/2025 0852 [facility] Received: 06/08/2025 0852 [facility] Pathologist: Rinku Abrams MD Specimen: Blood, Venous 06/09/2025 2:28 PM EDT [facility] Final Diagnosis No significant WBC, RBC or platelet abnormality is identified. No blasts are identified. The patient previous CBC history is noted. 06/09/2025 2:28 PM EDT [facility] at 1428 EDT Embedded Images 06/09/2025 2:28 PM EDT [facility] Blood Venous blood / Unknown Venipuncture / Unknown 06/08/2025 8:52 AM EDT 06/08/2025 8:52 AM EDT Jesenia Peng TRADING ASSISTANT-FLAT LOCK OPERATOR LAB BLOOD ORDERABLES Fi nal Result [facility] [address] [place] [address], * (ABNORMAL) CBC auto differential (06/08/2025 8:52 AM EDT) Only the most recent of2 resultswithin the time period is included. WBC 5.9 4 - 11 x10E9/L 06/08/2025 12:08 PM EDT [facility] RBC Count 4.20 3.8 - 5.2 X10E12/L 06/08/2025 12:08 PM EDT [facility] Hemoglobin 12.7 11.7 - 15.5 g/dL 06/08/2025 12:08 PM EDT [facility] Hematocrit 39.0 35 - 47 % 06/08/2025 12:08 PM EDT [facility] MCV 93 80 - 100 fL 06/08/2025 12:08 PM EDT [facility] MCH 30.1 27 - 34 pg 06/08/2025 12:08 PM EDT [facility] MCHC 32.4 32 - 36 g/dL 06/08/2025 12:08 PM EDT [facility] RDW 15.8(H) 11.5 - 15 % 06/08/2025 12:08 PM EDT [facility] Platelet Count 270 150 - 450 X10E9/L 06/08/2025 12:08 PM EDT [facility] MPV 9.1 7 - 12 fL 06/08/2025 12:08 PM EDT [facility] Neutrophils % 68.5 % 06/08/2025 12:08 PM EDT [facility] Lymphocytes % 16.8 % 06/08/2025 12:08 PM EDT [facility] Monocytes % 6.6 % 06/08/2025 12:08 PM EDT [facility] Eosinophils % 7.7 % 06/08/2025 12:08 PM EDT [facility] Basophils % 0.4 % 06/08/2025 12:08 PM EDT [facility] Neutrophils Absolute (A) 4.1 1.5 - 6.6 10*3/uL 06/08/2025 12:08 PM EDT [facility] Lymphocytes Absolute 1.0 1.0 - 3.5 10*3/uL 06/08/2025 12:08 PM EDT [facility] Monocytes Absolute 0.4 0.0 - 0.9 10*3/uL 06/08/2025 12:08 PM EDT [facility] Eosinophils Absolute 0.5(H) 0.0 - 0.4 10*3/uL 06/08/2025 12:08 PM EDT [facility] Basophils Absolute 0.0 0.0 - 0.2 10*3/uL 06/08/2025 12:08 PM EDT [facility] Differential Type AUTOMATED DIFFERENTIAL 06/08/2025 12:08 PM EDT [facility] Blood Venous blood / Unknown Venipuncture / Unknown 06/08/2025 8:52 AM EDT 06/08/2025 8:52 AM EDT Neli Clemente MD MPH LAB BLOOD ORDERABLES F inal Result Performing Organization Address City/[facility]/ZIP Co de Phone Number [facility] [address] [place] [address], [place] [phone] * C-reactive protein (06/08/2025 8:52 AM EDT) C REACTIVE PROTEIN <0.1 <=0.7 mg/dL 06/08/2025 12:28 PM EDT [facility] Blood Venous blood / Unknown Venipuncture / Unknown 06/08/2025 8:52 AM EDT 06/08/2025 8:52 AM EDT Neli Clemente MD MPH LAB BLOOD ORDERABLES F inal Result [facility] [address] [place] [address], [place] [phone] * LDL cholesterol, direct (06/08/2025 8:52 AM EDT) DIRECT LDL 60 <=130 mg/dL 06/08/2025 12:28 PM EDT [facility] Comment: LDL <100 mg/dL - Desirable LDL 130-159 mg/dL - Borderline High Risk LDL >160 mg/dL - High Risk Blood Venous blood / Unknown Venipuncture / Unknown 06/08/2025 8:52 AM EDT 06/08/2025 8:52 AM EDT Jesenia Peng TRADING ASSISTANT-FLAT LOCK OPERATOR LAB BLOOD ORDERABLES Fi nal Result [facility] [address] [place] [address], * Haptoglobin (06/08/2025 8:52 AM EDT) HAPTOGLOBIN 215 32 - 228 mg/dL 06/08/2025 12:28 PM EDT [facility] Blood Venous blood / Unknown Venipuncture / Unknown 06/08/2025 8:52 AM EDT 06/08/2025 8:52 AM EDT Jesenia Peng TRADING ASSISTANT-FLAT LOCK OPERATOR LAB BLOOD ORDERABLES Fi nal Result [facility] [address] [place] [address], * (ABNORMAL) Liver panel (06/08/2025 8:52 AM EDT) TOTAL PROTEIN 7.2 6.0 - 8.0 g/dL 06/08/2025 12:28 PM EDT [facility] ALBUMIN 4.4 3.2 - 5.3 g/dL 06/08/2025 12:28 PM EDT [facility] BILIRUBIN,TOTAL 1.5(H) 0.3 - 1.2 mg/dL 06/08/2025 12:28 PM EDT [facility] ALKALINE PHOSPHATASE 87 39 - 130 U/L 06/08/2025 12:28 PM EDT [facility] AST 25 <=41 U/L 06/08/2025 12:28 PM EDT [facility] ALT 7 <=31 U/L 06/08/2025 12:28 PM EDT [facility] BILIRUBIN,DIRECT 0.3 <=0.4 mg/dL 06/08/2025 12:28 PM EDT [facility] Blood Venous blood / Unknown Venipuncture / Unknown 06/08/2025 8:52 AM EDT 06/08/2025 8:52 AM EDT us Neli Clemente MD MPH LAB BLOOD ORDERABLES F inal Result [facility] [address] [place] [address], [place] [phone] * Basic Metabolic Panel (06/08/2025 8:52 AM EDT) SODIUM 141 134 - 146 mmol/L 06/08/2025 12:28 PM EDT [facility] POTASSIUM 4.9 3.5 - 5.0 mmol/L 06/08/2025 12:28 PM EDT [facility] CHLORIDE 100 98 - 109 mmol/L 06/08/2025 12:28 PM EDT [facility] CARBON DIOXIDE 32 22 - 32 mmol/L 06/08/2025 12:28 PM EDT [facility] ANION GAP 9 5 - 15 mmol/L 06/08/2025 12:28 PM EDT [facility] BLOOD UREA NITROGEN 20 5 - 27 mg/dL 06/08/2025 12:28 PM EDT [facility] CREATININE 0.60 0.40 - 1.00 mg/dL 06/08/2025 12:28 PM EDT [facility] Comment:METHOD TRACEABLE TO IDMS STANDARD GLUCOSE 88 65 - 99 mg/dL 06/08/2025 12:28 PM EDT [facility] CALCIUM 9.8 8.5 - 10.5 mg/dL 06/08/2025 12:28 PM EDT [facility] EGFR Non-Race Dependent >90 >=60 ml/min/1.7 3sq.m 06/08/2025 12:28 PM EDT [facility] Comment: Reported eGFR is based on the CKD-EPI 2020 equation that does not use a race coefficient. Blood Venous blood / Unknown Venipuncture / Unknown 06/08/2025 8:52 AM EDT 06/08/2025 8:52 AM EDT Jesenia Peng TRADING ASSISTANT-FLAT LOCK OPERATOR LAB BLOOD ORDERABLES Fi nal Result Performing Organization Address City/[facility]/ZIP Co de Phone Number [facility] [address] [place] [address], [place] [phone] * MS INBODY 970 BODY COMPOSITION ANALYSIS (05/03/2025 3:49 PM EDT) John Dominguez MD MS PROFESSIONAL SERVICES Final Result MANUALLY TRANSCRIBED RESULTS * POCT Hearing Screening (05/03/2025 3:48 PM EDT) Specimen of unknown material (specimen) us John Dominguez MD POINT OF CARE TEST ORDERABLES F inal Result Performing Organization Address [facility] de Phone Number MANUALLY TRANSCRIBED RESULTS * [...] heart was obtained utilizing a [address] [employer] [address] scanner. A separate workstation was utilized [...] From the Fleischner Society 2017. Radiology. 2017 May;284(1):228- 243. Finalized by Frederic Mays DO on 05/03/2025 1:25 PM Procedure Note Frederic Mays DO - 05/03/[address] heart for coronary calcium scoring Clinical history:Health care maintenance. Comparison: None. TECHNIQUE: Gated noncontrast CT of the heart was obtained utilizing a 512slice [employer] CT scanner. A separate workstation was utilized [...] Colorless Yellow, Colorless 05/03/2025 12:46 PM EDT [facility] TURBIDITY Clear Clear 05/03/2025 12:46 PM EDT [facility] SPECIFIC GRAVITY 1.011 1.003 - 1.035 05/03/2025 12:46 PM EDT [facility] NITRITE Negative Negative 05/03/2025 12:46 PM EDT [facility] PH,URINE 6.5 5.0 - 8.5 05/03/2025 12:46 PM EDT [facility] LEUKOCYTE ESTERASE Negative Negative 05/03/2025 12:46 PM EDT [facility] PROTEIN Negative Negative 05/03/2025 12:46 PM EDT [facility] KETONES (URINE) Negative Negative 12:46 PM EDT [facility] UROBILINOGEN <1.1 eu/dL <1.1 eu/dL 05/03/2025 12:46 PM EDT [facility] BILIRUBIN (URINE) Negative Negative 05/03/2025 12:46 PM EDT [facility] BLOOD/HGB Negative Negative 05/03/2025 12:46 PM EDT [facility] GLUCOSE (URINE) Negative Negative 12:46 PM EDT [facility] Urine Urine / Unknown 05/03/2025 8 :41 AM EDT 05/03/2025 8:56 AM EDT us oJhn Dominugez MD URINE ORDERABLES Final Result [facility] [address] [place] [address], [place] [phone] * Urine culture (clean catch) (05/03/2025 8:41 AM EDT) CULTURE RESULTS NO GROWTH AT <1000 CFU/mL 05/04/2025 6:46 AM EDT [facility] Urine Urine specimen collection, clean catch / Unknown 05/03/2025 8:41 AM EDT 05/03/2025 8:56 AM EDT us John Dominguez MD MICROBIOLOGY - GENERAL ORDERABL ES Final Result [facility] [address] [place] [address], [place] [phone] * Dexa Icaria scan central skeletal (05/03/2025 [...] greater than or equal to 20% or [id number] for a hip fracture is greater than [...] Ashok Valencia MD on 05/03/2025 8:47 AM John oDminguez MD IMG DXA ORDERABLES Final Result * POCT EKG (05/03/2025 7:43 AM EDT) us John Dominguez MD ECG ORDERABLES Final Result TRACEMASTERVUE * MR Icaria Body (04/25/2025 12:06 PM EDT) Anatomical Region [...] the mid thigh was performedon a 3 [place] superconducting Siemens magnet utilizing multiplanarmultisequence MRI imaging. [...] on 04/25/2025 1:34 PM John Dominguez MD [facility] [place] ORDERABLES Final Result * MR Icaria Neuro (04/25/2025 11:43 AM EDT) Anatomical Region Laterality Modality Neuro Icaria N/A Magnetic Resonan ce 04/25/2025 11:5 4 AM EDT Narrative 04/25/2025 12:05 PM EDT MR ICARIA NEURO CLINICAL INFORMATION: Health care maintenance TECHNIQUE: Multiplanar multisequence MR imaging of the brain and [place] was performed on a 3 [place] superconducting Siemens unit, without intravenous contrast. Whole-body multisequence screening MRI performed without contrast, selective interpretation of the neck portions; remaining chest, abdomen, and pelvis is reported separately. Volume rendered 3-D post processed reformatted images were generated at an independent workstation, with [employer] automated segmentation analysis, to further define anatomy [...] thecal sac stenosis at C5-C6. IMPRESSION: * Cyhw-bq-gvbiqjrj burden white matter FLAIR hyperintensities, most often seen in the setting of chronic microvascular ischemia. * Unremarkable [place] MRA. * Several brain parenchymal [...] multisequence MR imaging of the brain and [place] wasperformed on a 3 [place] superconducting Siemens unit, without intravenouscontrast. Whole-body multisequence screening MRI performed without contrast,selective interpretation of the neck portions; remaining chest, abdomen,and pelvis is reported separately. Volume rendered 3-D post processed reformatted images were generated at anindependent workstation, with [employer] automated segmentation analysis,to further define anatomy and [...] thecal sac stenosis at C5-C6. IMPRESSION: * Jhbo-is-qbmolrjs burden white matter FLAIR hyperintensities, most oftenseen in the setting of chronic microvascular ischemia. * Unremarkable [place] MRA. * Several brain parenchymal [...] CREATININE,RDM 18.80 mg/dL 04/25/2025 4:15 PM EDT [facility] MALB/CREAT RATIO 53.2(H) 0.0 - 30.0 mg/g 04/25/2025 4:15 PM EDT [facility] MICROALBUMIN, URINE 1.0 0.0 - 1.9 mg/dL 04/25/2025 4:15 PM EDT [facility] Urine Urine specimen collection, clean catch / Unknown 04/25/2025 11:30 AM EDT 04/25/2025 11:38 AM EDT us John Dominguez MD URINE ORDERABLES Final Result [facility] [address] [place] [address], * MR Icaria cardiac (04/25/2025 10:58 AM [...] chest MRI report for noncardiac chest findings. Fabiola Bradford., Chiki Navarrete., Larisa Davidson. et al. Reference ranges (?normal values?) for cardiovascular magnetic resonance (CMR) in adults and children: 2020 update. J Cardiovasc Magn Reson 22, 87 (2020). [email or web address] Finalized by Ashok Kramer MD on 04/25/2025 1:30 PM Procedure Note Ashok Kramer MD - 04/25/2025 MR ICARIA CARDIAC CLINICAL INFORMATION: Health care maintenance. Health care maintenance TECHNIQUE: MRI imaging of the heart was performed on a 3 [place] [facility] utilizing multiplanar multisequence MRI imaging. COMPARISON: [...] concurrent chestMRI report for noncardiac chest findings. Fabiola Bradford., Chiki Navarrete., Gill Davidson et al. Referenceranges (?normal values?) for cardiovascular magnetic resonance (CMR) inadults and children: 2020 update. J Cardiovasc Magn Reson 22, 87 (2020).[email or web address]://[email or web address]/[email or web address] Finalized by Ashok Kramer MD on 04/25/2025 1:30 PM John Dominguez MD IM MRI ORDERABLES Final Result * Lipoprotein(a), S (04/25/2025 10:03 AM EDT) LIPOPROTEIN(A), S <7 <75 nmol/L 04/26/2025 10:35 AM EDT [facility] [place] Comment: ADDITIONAL INFORMATION Please notice that Lp(a) values are reported in molar units (nmol/L). These units are recommended by professional society guidelines and expert opinion statements. Measured results and risk thresholds are higher than those generated using mass units (mg/dL). Cardiovascular risk increases starting at 75 nmol/L. Lp(a) >=125 nmol/L is considered a risk enhancing factor by the [place] [employer]. This test has been modified from the grid molder's instructions. Its performance characteristics were determined by [facility] in a manner consistent with CLIA requirements. This test has not been cleared or approved by the U.S. Food and Drug Administration. Test Performed by: [place] [address] Wagon Person: Sam Dukes Ph.D.; CLIA# [id number] Blood Venous blood / Unknown Venipuncture / Unknown 04/25/2025 10:03 AM EDT 04/25/2025 10:22 AM EDT us John Dominguez MD LAB BLOOD [place] [address], * Apolipoprotein B, S (04/25/2025 10:03 AM EDT) [facility] APOLIPOPROTEIN B 66 mg/dL 04/26/20 11:11 AM EDT [facility] [place] Comment: REFERENCE VALUE Desirable: <90 Above Desirable: 90-99 Borderline high: 100-119 High: 120-139 Very high: > or = 140 Test Performed by: [address] [address] Wagon Person: Sam Dukes Ph.D.; CLIA# [id number] Blood Venous blood / Unknown Venipuncture / Unknown 04/25/2025 10:03 AM EDT 04/25/2025 10:22 AM EDT John Dominguez MD LAB BLOOD ORDERABLES Final Resu lt Performing Organization Address [facility]/ZIP Co de Phone Number [facility] [address] [place] [address], [place] * Apolipoprotein A1, S (04/25/2025 10:03 AM EDT) APOLIPOPROTEIN A1 189 >=140 mg/dL 04/26/2025 1:36 PM EDT [facility] Comment: Test Performed by: [facility] [place] [address] Wagon Person: Sam Dukes Ph.D.; CLIA# [id number] Blood Venous blood / Unknown Venipuncture / Unknown 04/25/2025 10:03 AM EDT 04/25/2025 10:22 AM EDT John Dominguez MD LAB BLOOD ORDERABLES Final Resu lt Performing Organization Address [facility] Co de Phone Number [facility] [address] [place] [address], [place] * Dihydrotestosterone, S (04/25/2025 10:03 AM EDT) DIHYDROTESTOSTERONE <50 <=128 pg/mL 04/28/2025 8:59 AM EDT [facility] Comment: ADDITIONAL INFORMATION This test was developed and its performance characteristics determined by [facility] in a manner consistent with CLIA requirements. This test has not been cleared or approved by the U.S. Food and Drug Administration. Test Performed by: [facility] [address] [id number] Wagon Person: Sam Dukes Ph.D.; CLIA# [id number] Blood Venous blood / Unknown Venipuncture / Unknown 04/25/2025 10:03 AM EDT 04/25/2025 10:22 AM EDT us John oDminguez MD LAB BLOOD ORDERABLES Final Resu lt [facility] [address] [place] [address], [place] * [facility] Generic Order (04/25/2025 10:03 AM EDT) TEST RESULT SEE NOTE 04/28/2025 10:20 AM EDT [facility] Comment: Test name Result Flag Units RefIntvl Testosterone by Chair Mechanic 13 ng/dL 5-32 REFERENCE INTERVAL: Testosterone by Chair Mechanic Females Premenopausal 9-55 ng/dL Postmenopausal 5-32 ng/dL INTERPRETIVE INFORMATION: Testosterone by Chair Mechanic Free or bioavailable testosterone measurements may provide supportive information. For individuals on testosterone-suppressing hormone therapies (e.g., antiandrogens or estrogens), refer to cisgender female reference intervals. For a complete set of all established reference intervals, refer to ltd.[employer]/Tests/Pub/[email or web address]. This test was developed and its performance characteristics determined by [facility]. It has not been cleared or approved by the [place] Food and Drug Administration. This test was performed in a CLIA certified laboratory and is intended for clinical purposes. Sex Hormone Binding Globulin 65 nmol/L 17-125 REFERENCE INTERVAL: Sex Hormone Binding Globulin Access complete set of age- and/or gender-specific reference intervals for this test in the [facility] Laboratory Test Directory ([employer]). Testosterone, Free by Chair Mechanic 1.4 pg/mL 0.6-3.8 INTERPRETIVE INFORMATION: Testosterone, Free by Chair Mechanic Free testosterone concentration is calculated using total testosterone (measured by mass spectrometry) and the binding constant of testosterone and sex hormone-binding globulin (SHBG). For individuals on testosterone-suppressing hormone therapies (e.g., antiandrogens or estrogens), refer to cisgender female reference intervals. For a complete set of all established reference intervals, refer to ltd.[employer]/Tests/Pub/[email or web address]. This test was developed and its performance characteristics determined by [facility]. It has not been cleared or approved by the [place] Food and Drug Administration. This test was performed in a CLIA certified laboratory and is intended for clinical purposes. Performed By: [facility] [address] [place] [address] Binder Selector: Kwame Marion MD, PhD CLIA Number: [id number] Blood Venous blood / Unknown Venipuncture / Unknown 04/25/2025 10:03 AM EDT 04/25/2025 10:22 AM EDT John Dominguez MD LAB BLOOD ORDERABLES Final Resu lt Performing Organization Address [facility]/ZIP Co de Phone Number [facility] [address] [place] [address], * Sex hormone binding globulin (04/25/2025 10:03 AM EDT) SEX HORMONE BINDING GLOBULIN 60.4 16.8 - 125.2 nmol/L 04/25/2025 1:01 PM EDT [facility] Comment: PT TYPE AGE RANGE MALES 20-50Y 13.3-89.5 mmol/L FEMALES 20-46Y 18.2-135.5 mmol/L FEMALES POSTMENO 47-91Y 16.8-125.2 mmol/L Blood Venous blood / Unknown Venipuncture / Unknown 04/25/2025 10:03 AM EDT 04/25/2025 10:22 AM EDT John Dominguez MD LAB BLOOD ORDERABLES Final Resu lt [facility] [address] [place] [address], * (ABNORMAL) LDH (04/25/2025 10:03 AM EDT) LDH 371(H) 100 - 235 U/L 04/25/2025 1:03 PM EDT [facility] Blood Venous blood / Unknown Venipuncture / Unknown 04/25/2025 10:03 AM EDT 04/25/2025 10:22 AM EDT us John Dominguez MD LAB BLOOD ORDERABLES Final Resu lt [facility] [address] [place] [address], [place] [phone] * GGT (04/25/2025 10:03 AM EDT) GGT 23 9 - 33 U/L 04/25/2025 1:03 PM EDT [facility] Blood Venous blood / Unknown Venipuncture / Unknown 04/25/2025 10:03 AM EDT 04/25/2025 10:22 AM EDT us John Dominguez MD LAB BLOOD ORDERABLES Final Resu lt Performing Organization Address City/[facility]/ZIP Co de Phone Number [facility] [address] [place] [address], [place] [phone] * Hepatitis C(HCV) Ab w/ Reflex to PCR (04/25/2025 10:03 AM EDT) ANTI HCV W/PCR REFLX Non-Reacti ve Non-Reacti ve 04/25/2025 2:05 PM EDT [facility] Comment: If recent infection suspected, recommend repeat testing (>2 months). Kjvyxf-an-cqgxei ratio is <1.0. Blood Venous blood / Unknown Venipuncture / Unknown 04/25/2025 10:03 AM EDT 04/25/2025 10:22 AM EDT us John Dominguez MD LAB BLOOD ORDERABLES Final Resu lt [facility] [address] [place] [address], * Iron and TIBC (04/25/2025 10:03 AM EDT) IRON 141 50 - 170 ug/dL 04/25/2025 1:09 PM EDT [facility] TRANSFERRIN 270 168 - 336 mg/dL 04/25/2025 1:09 PM EDT [facility] IRON BINDING 378 250 - 425 ug/dL 04/25/2025 1:09 PM EDT [facility] IRON SATURATION 37 15 - 50 % SATURATION 04/25/2025 1:09 PM EDT [facility] Blood Venous blood / Unknown Venipuncture / Unknown 04/25/2025 10:03 AM EDT 04/25/2025 10:22 AM EDT John Dominguez MD LAB BLOOD ORDERABLES Final Resu lt [facility] [address] [place] [address], * Vitamin D 25 hydroxy (04/25/2025 10:03 AM EDT) VITAMIN D 25 HYD TOT 34.3 30.0 - 100.0 ng/mL 04/25/2025 1:13 PM EDT [facility] Blood Venous blood / Unknown Venipuncture / Unknown 04/25/2025 10:03 AM EDT 04/25/2025 10:22 AM EDT Narrative [facility] - 04/25/2025 1:13 PM EDT Vitamin D status 25 [place] Vitamin D Deficiency <20 ng/mL Insufficiency 20-29 ng/mL Sufficiency 30-100 ng/mL Toxicity >100 ng/mL NOTE: A pediatric reference range has not been established by the grid molder of this kit. The [place] [employer] recommends a Vitamin D level of = or >20ng/mL in infants and children. us John Dominguez MD LAB BLOOD ORDERABLES Final Resu lt [facility] [address] [place] [address], * (ABNORMAL) Prolactin (04/25/2025 10:03 AM EDT) PROLACTIN 1.0(L) 2.7 - 19.6 ng/mL 04/25/2025 1:02 PM EDT [facility] Blood Venous blood / Unknown Venipuncture / Unknown 04/25/2025 10:03 AM EDT 04/25/2025 10:22 AM EDT John Dominguez MD LAB BLOOD ORDERABLES Final Resu lt [facility] [address] [place] [address], * Progesterone (04/25/2025 10:03 AM EDT) PROGESTERONE 0.9 ng/mL 04/25/2025 1:03 PM EDT [facility] Comment: FEMALES: 1st Tri: 4.7-50.7 ng/ml 2nd Tri: 19.4-45.3 ng/ml MENSTRUATING FEMALES: Follicular: 0.3-1.5 ng/ml Mid Luteal: 5.2-18.6 ng/ml Post [place]: <0.1-0.8 ng/ml Blood Venous blood / Unknown Venipuncture / Unknown 04/25/2025 10:03 AM EDT 04/25/2025 10:22 AM EDT John Dominguez MD LAB BLOOD ORDERABLES Final Resu lt [facility] [address] [place] [address], [place] [phone] * Insulin (04/25/2025 10:03 AM EDT) INSULIN 2.24 1.00 - 23.00 uIU/mL 04/25/2025 1:15 PM EDT [facility] Blood Venous blood / Unknown Venipuncture / Unknown 04/25/2025 10:03 AM EDT 04/25/2025 10:22 AM EDT Narrative [facility] - 04/25/2025 1:15 PM EDT Ref. range is for FASTING NON-DIABETIC POPULATION. John Dominguez MD LAB BLOOD ORDERABLES Final Resu lt Performing Organization Address City/[facility]/ZIP Co de Phone Number [facility] [address] [place] [address], [place] [phone] * Insulin-Like GFB Protein 3 (04/25/2025 10:03 AM EDT) IGFBP-3 4.9 2.8 - 5.7 mcg/mL 04/26/2025 11:03 AM EDT [facility] Comment: Test Performed by: [facility] [address] [place] [address] Wagon Person: Sam Dukes Ph.D.; CLIA# [id number] Blood Venous blood / Unknown Venipuncture / Unknown 04/25/2025 10:03 AM EDT 04/25/2025 10:22 AM EDT us John Dominguez MD LAB BLOOD ORDERABLES Final Resu lt [facility] [address] [place] [address], [place] * DHEA-sulfate (04/25/2025 10:03 AM EDT) DHEA S 71 7 - 177 ug/dL 04/25/2025 12:58 PM EDT [facility] Blood Venous blood / Unknown Venipuncture / Unknown 04/25/2025 10:03 AM EDT 04/25/2025 10:22 AM EDT John Dominguez MD LAB BLOOD ORDERABLES Final Resu lt [facility] [address] [place] [id number], [place] [phone] * Estradiol (04/25/2025 10:03 AM EDT) ESTRADIOL <15.0 pg/mL 04/25/2025 1:27 PM EDT [facility] Blood Venous blood / Unknown Venipuncture / Unknown 04/25/2025 10:03 AM EDT 04/25/2025 10:22 AM EDT Narrative [facility] - 04/25/2025 1:27 PM [...] MD LAB BLOOD ORDERABLES Final Resu lt [facility] [address] [place] [address], [place] [phone] * High sensitivity CRP (04/25/2025 10:03 AM EDT) HS CRP 0.020 0.000 - 0.744 mg/dL 04/25/2025 1:03 PM EDT [facility] Blood Venous blood / Unknown Venipuncture / Unknown 04/25/2025 10:03 AM EDT 04/25/2025 10:22 AM EDT Narrative [facility] - 04/25/2025 1:03 PM [...] MD LAB BLOOD ORDERABLES Final Resu lt [facility] [address] [place] [address], [place] [phone] * Uric acid (04/25/2025 10:03 AM EDT) URIC ACID 5.4 2.6 - 7.2 mg/dL 04/25/2025 1:03 PM EDT [facility] Blood Venous blood / Unknown Venipuncture / Unknown 04/25/2025 10:03 AM EDT 04/25/2025 10:22 AM EDT us John Dominguez MD LAB BLOOD ORDERABLES Final Resu lt Performing Organization Address City/[facility]/ZIP Co de Phone Number [facility] [address] [place] [address], * T3, free (04/25/2025 10:03 AM EDT) FREE T3 2.59 2.50 - 3.90 pg/mL 04/25/2025 12:57 PM EDT [facility] Blood Venous blood / Unknown Venipuncture / Unknown 04/25/2025 10:03 AM EDT 04/25/2025 10:22 AM EDT us John Dominguez MD LAB BLOOD ORDERABLES Final Resu lt Performing Organization Address City/[facility]/ZIP Co de Phone Number [facility] [address] [place] [address], * TSH (04/25/2025 10:03 AM EDT) TSH 1.63 0.49 - 4.67 uIU/mL 04/25/2025 12:54 PM EDT [facility] Blood Venous blood / Unknown Venipuncture / Unknown 04/25/2025 10:03 AM EDT 04/25/2025 10:22 AM EDT us John Dominguez MD LAB BLOOD ORDERABLES Final Resu lt [facility] [address] [place] [address], [place] [phone] * T4, free (04/25/2025 10:03 AM EDT) FREE T4 1.43 0.61 - 1.60 ng/dL 04/25/2025 12:56 PM EDT [facility] Blood Venous blood / Unknown Venipuncture / Unknown 04/25/2025 10:03 AM EDT 04/25/2025 10:22 AM EDT us John Dominguez MD LAB BLOOD ORDERABLES Final Resu lt Performing Organization Address City/[facility]/ZIP Co de Phone Number [facility] [address] [place] [address], [place] [phone] * Phosphorus (04/25/2025 10:03 AM EDT) PHOSPHORUS 3.7 2.4 - 4.9 mg/dL 04/25/2025 1:03 PM EDT [facility] Blood Venous blood / Unknown Venipuncture / Unknown 04/25/2025 10:03 AM EDT 04/25/2025 10:22 AM EDT us John Dominguez MD LAB BLOOD ORDERABLES Final Resu lt Performing Organization Address City/[facility]/ZIP Co de Phone Number [facility] [address] [place] [address], [place] [phone] * Magnesium (04/25/2025 10:03 AM EDT) MAGNESIUM 2.2 1.8 - 2.6 mg/dL 04/25/2025 1:03 PM EDT [facility] Blood Venous blood / Unknown Venipuncture / Unknown 04/25/2025 10:03 AM EDT 04/25/2025 10:22 AM EDT us John Dominguez MD LAB BLOOD ORDERABLES Final Resu lt Performing Organization Address City/[facility]/ZIP Co de Phone Number [facility] [address] [place] [address], [place] [phone] * (ABNORMAL) Homocysteine total (04/25/2025 10:03 AM EDT) HOMOCYSTEINE 36.45(H) 3.36 - 20.44 umol/L 04/25/2025 12:47 PM EDT [facility] Blood Venous blood / Unknown Venipuncture / Unknown 04/25/2025 10:03 AM EDT 04/25/2025 10:22 AM EDT us John Dominguez MD LAB BLOOD ORDERABLES Final Resu lt Performing Organization Address City/[facility]/ZIP Co de Phone Number [facility] [address] [place] [address], * (ABNORMAL) Hemoglobin A1c (04/25/2025 10:03 AM EDT) HEMOGLOBIN A1C 6.0(H) 4.4 - 5.6 % 04/25/2025 1:40 PM EDT [facility] Comment: ADA Guidelines Result HgbA1c Normal : less than 5.7 % Prediabetes : 5.7 % to 6.4 % Diabetes : > 6.4 % Use with caution in patients with abnormal hemoglobin variants as the half-life of red blood cells and in vivo glycation rates are affected. EST. AVERAGE GLUCOSE 126 mg/dL 04/25/2025 1:40 PM EDT [facility] Blood Venous blood / Unknown Venipuncture / Unknown 04/25/2025 10:03 AM EDT 04/25/2025 10:22 AM EDT us John Dominguez MD LAB BLOOD ORDERABLES Final Resu lt Performing Organization Address City/[facility]/ZIP Co de Phone Number [facility] [address] [place] [address], * Luteinizing hormone (04/25/2025 10:03 AM EDT) LUTEINIZING HORMONE 0.9 mIU/mL 04/25/2025 1:28 PM EDT [facility] Blood Venous blood / Unknown Venipuncture / Unknown 04/25/2025 10:03 AM EDT 04/25/2025 10:22 AM EDT Narrative [facility] - 04/25/2025 1:28 PM EDT NORMAL FEMALE Follicular 2.1-10.9 mIU/mL Mid Cycle 19.2-103 mIU/mL Luteal 1.2-12.9 mIU/mL [place] 10.9-58.6 mIU/mL John Dominguez MD LAB BLOOD ORDERABLES Final Resu lt [facility] [address] [address] [place] [address], * Follicle stimulating hormone (04/25/2025 10:03 AM EDT) FOLLICLE STIM HORMONE 24.9 mIU/mL 04/25/2025 1:27 PM EDT [facility] Blood Venous blood / Unknown Venipuncture / Unknown 04/25/2025 10:03 AM EDT 04/25/2025 10:22 AM EDT Narrative [facility] - 04/25/2025 1:27 PM EDT NORMAL FEMALE: Luteal 1.8-5.1 mIU/mL Follicular 3.8-8.8 mIU/mL Mid Cycle 4.5-22.5 mIU/mL Post [place] 16.7-113.6 mIU/mL John Dominguez MD LAB BLOOD ORDERABLES Final Resu lt [facility] [address] [place] [address], * Ferritin (04/25/2025 10:03 AM EDT) FERRITIN 90 11 - 307 ng/mL 04/25/2025 1:04 PM EDT [facility] Blood Venous blood / Unknown Venipuncture / Unknown 04/25/2025 10:03 AM EDT 04/25/2025 10:22 AM EDT us John Dominguez MD LAB BLOOD ORDERABLES Final Resu lt [facility] [address] [place] [address], [place] [phone] * Vitamin B12 (04/25/2025 10:03 AM EDT) VITAMIN B12 274 180 - 914 pg/mL 04/25/2025 1:09 PM EDT [facility] Blood Venous blood / Unknown Venipuncture / Unknown 04/25/2025 10:03 AM EDT 04/25/2025 10:22 AM EDT us John Dominguez MD LAB BLOOD ORDERABLES Final Resu lt Performing Organization Address City/[facility]/ZIP Co de Phone Number [facility] [address] [place] [address], [place] [phone] * Cortisol (04/25/2025 10:03 AM EDT) CORTISOL, TOTAL 21.2 ug/dL 04/25/2025 12:49 PM EDT [facility] Blood Venous blood / Unknown Venipuncture / Unknown 04/25/2025 10:03 AM EDT 04/25/2025 10:22 AM EDT Narrative [facility] - 04/25/2025 12:49 PM EDT Due to the diurnal variation of cortisol levels in normal subjects, all cortisol measurments should be referenced to the time of day of sample collection. AM Cortisol Age>=6 6.7-22.4 ug/dL PM Cortisol Age>=6 <10 ug/dL us John Dominguez MD LAB BLOOD ORDERABLES Final Resu lt [facility] [address] [place] [address], [place] [phone] * Bilirubin, direct (04/25/2025 10:03 AM EDT) BILIRUBIN,DIRE CT 0.3 <=0.4 mg/dL 04/25/2025 1:03 PM EDT [facility] Blood Venous blood / Unknown Venipuncture / Unknown 04/25/2025 10:03 AM EDT 04/25/2025 10:22 AM EDT us John Dominguez MD LAB BLOOD ORDERABLES Final Resu lt [facility] [address] [place] [address], [place] [phone] * Lipid profile (04/25/2025 10:03 AM EDT) CHOLESTEROL 171 150 - 200 mg/dL 04/25/2025 1:09 PM EDT [facility] TRIGLYCERIDE 46 27 - 150 mg/dL 04/25/2025 1:09 PM EDT [facility] HDL CHOLESTEROL 82 >39 mg/dL 1:09 PM EDT [facility] Comment: HDL <40 mg/dL - High Risk HDL > or = 40mg/dL- Desirable HDL >60 mg/dL - Negative Risk LDL (CALC) 80 <130 mg/dL 04/25/2025 1:09 PM EDT [facility] Comment: LDL <100 mg/dL - Desirable LDL >160 mg/dL - High Risk CHOLESTEROL:HDL 2.1 1.0 - 5.0 1:09 PM EDT [facility] VERY LOW LIPOPROTEIN 9 0 - 30 mg/dL 04/25/2025 1:09 PM EDT [facility] Blood Venous blood / Unknown Venipuncture / Unknown 04/25/2025 10:03 AM EDT 04/25/2025 10:22 AM EDT us John Dominguez MD LAB BLOOD ORDERABLES Final Resu lt [facility] [address] [place] [address], * (ABNORMAL) Comprehensive metabolic panel (04/25/2025 10:03 AM EDT) SODIUM 140 134 - 146 mmol/L 04/25/2025 1:09 PM EDT [facility] POTASSIUM 4.2 3.5 - 5.0 mmol/L 04/25/2025 1:09 PM EDT [facility] CHLORIDE 97(L) 98 - 109 mmol/L 04/25/2025 1:09 PM EDT [facility] CARBON DIOXIDE 31 22 - 32 mmol/L 04/25/2025 1:09 PM EDT [facility] ANION GAP 12 5 - 15 mmol/L 04/25/2025 1:09 PM EDT [facility] BLOOD UREA NITROGEN 36(H) 5 - 27 mg/dL 04/25/2025 1:09 PM EDT [facility] CREATININE 1.24(H) 0.40 - 1.00 mg/dL 04/25/2025 1:09 PM EDT [facility] Comment:METHOD TRACEABLE TO IDMS STANDARD GLUCOSE 98 65 - 99 mg/dL 04/25/2025 1:09 PM EDT [facility] CALCIUM 10.1 8.5 - 10.5 mg/dL 04/25/2025 1:09 PM EDT [facility] TOTAL PROTEIN 7.8 6.0 - 8.0 g/dL 04/25/2025 1:09 PM EDT [facility] ALBUMIN 4.7 3.2 - 5.3 g/dL 04/25/2025 1:09 PM EDT [facility] ALKALINE PHOSPHATASE 76 39 - 130 U/L 04/25/2025 1:09 PM EDT [facility] AST 27 <=41 U/L 04/25/2025 1:09 PM EDT [facility] ALT 6 <=31 U/L 04/25/2025 1:09 PM EDT [facility] BILIRUBIN,TOTAL 1.8(H) 0.3 - 1.2 mg/dL 04/25/2025 1:09 PM EDT [facility] EGFR Non-Race Dependent 46(L) >=60 ml/min/1.7 3sq.m 04/25/2025 1:09 PM EDT [facility] Comment: Reported eGFR is based on the CKD-EPI 2020 equation that does not use a race coefficient. Blood Venous blood / Unknown Venipuncture / Unknown 04/25/2025 10:03 AM EDT 04/25/2025 10:22 AM EDT us John Dominguez MD LAB BLOOD ORDERABLES Final Resu lt [facility] [address] [place] [address], * Mammography diagnostic bilateral with CAD (11/04/2024 9:26 AM EST) Anatomical Region Laterality Modality Breast Bilateral Mammography 11/04/2024 9:28 AM EST Narrative 11/04/2024 9:52 AM EST MARLENA MISTRYAVE DIAZ 1950 [id number], [id number] EXAM: MAMM DIAGNOSTIC BILATERAL W CAD, US [...] MAMM 1 YR FDA Accredited Performing Facility: [facility] - Mammography [address], [facility] [address] Procedure Note Venice Chow MD - 11/04/2024 MARLENA MISTRY JOE 1950 [id number], [id number] EXAM: MAMM DIAGNOSTIC BILATERAL W CAD, US [...] MAMM 1 YR FDA Accredited Performing Facility: [facility] [address] [facility] [address] Jesenia Peng TRADING ASSISTANT-FLAT LOCK OPERATOR IMG MAMMOGRAPHY ORDERAB LES Final Result * HM COLONOSCOPY (10/29/2015) 10/29/2015 Narrative MANUALLY TRANSCRIBED LAB RESULTS - 10/29/2015 7:16 AM EST This information has been abstracted by Monie Dougherty from [employer] on 08/25/2016. us Scanning Provider External HEALTH MAINTENANCE Ed ited Result - Final MANUALLY TRANSCRIBED LAB RESULTS from Last 3 Months or Most Recently Relevant to Health Maintenance Additional Health Concerns Active Problems Noted Date Diagnosed Date Autogenerated Problem 07/20/2025 Insurance [facility] Advance Directives * Full Code (Latest Code Status on File) Date Activated Date Inactivated Comments 01/17/2022 2:54 PM 01/22/2022 5:04 PM Care Teams Crematory Attendant Relationship Specialty Start Date End Date Jesenia Peng APRN-FLAT LOCK OPERATOR [address] [place] [address], [address] [place] [address] PCP - General 03/19/15
--- OUTSIDE RECORDS SUMMARY | 2025-07-26 11:25 | XMS_ITS | Encounter Summary ---
Author Organization [employer] Address [facility] [address] [place] [address] Care Team Providers Care Molder Helper Name Role Phone Jesenia Peng COMMUNICATIONS ATTENDANT-ADDICTIONS THERAPIST Primary Care Provider Reason for Visit * Reason Onset Date Comments Med Refill 12/02/2024 Encounter Details Date Type Department Care Team (Late st Contact Info) Description 12/02/2024 Refill [facility] [address] [place] [phone] Trice Stinson MD [address] [place] [address] 101, 102, [address] [place], [place] [phone] Insomnia due to medical condition; REM sleep [...] medication diversion, or non compliance. Reviewed by MANAGER MATH. Pend for signature. documented in this encounter Plan of Treatment Upcoming Encounters Date Type Department Care Team (Latest Contact Info) Description 08/01/2025 2:00 PM EDT Office Visit [facility], A Department of [place] [address], [address], [address] [place] [phone] Trice Stinson MD [address] [place] [address] 101, 102, [address] [place] [address] 08/03/2025 9:30 AM EDT [facility] On [address] [phone] 08/07/2025 11:00 AM EDT Office Visit [facility] [address] [facility] [address] [place] [address] Isidro Woodall DO [address] [facility] [address] [place] [address] 08/07/2025 11:00 AM EDT Appointment [facility] [address] [place] [address] 08/09/2025 12:00 PM EDT Hospital Encounter [facility] - Endoscopy [address] [place] [address] [place] [address] [place] [address], [address] [place] [address] 08/09/2025 12:00 PM EDT - 08/09/2025 12:30 PM EDT Surgery [facility] - Endoscopy [address] [place] [address] [place] [address] [place] [address], [address] [facility] [address] ESOPHAGOGASTRODUODENOSCOPY DIAGNOSTIC [71760 (CPT )] 08/21/2025 2:30 PM EDT Appointment [facility] [address] [place] [address] 08/22/2025 2:30 PM EDT Office Visit [facility] [address] [facility] [address] [place] [address] Isidro Woodall, DO [address] [facility] [address] [place] [address] 08/23/2025 1:30 PM EDT Office Visit [facility] [address] [facility] [address] [place] [phone] Jesenia Peng, COMMUNICATIONS ATTENDANT-ADDICTIONS THERAPIST [address] [facility], [address] [place] [address] 09/26/2025 1:30 PM EST Office Visit [facility], A Department of [address] [phone] Neli Clemente MD MPH [address] [place] [phone] 10/13/2025 11:45 AM EST Office Visit [facility] Card[facility] [address] [place] [address] [address] [place] [address] Duong Johnson DO [address] [facility], [address] [place] [address] 10/13/2025 3:15 PM EST Office Visit [facility] Digestive [facility], [facility] [place] [phone] Ines Uribe PA-C [address] [place] [address], [address] [place] [address] 11/14/2025 12:20 PM EST Office Visit [facility] [address] [place] [address] Ofelia Pierce V, COMMUNICATIONS ATTENDANT-ADDICTIONS THERAPIST [address] [place] [address] 11/21/2025 12:30 PM EST Appointment [facility] [address] [place] [phone] Scheduled Procedures Name Priority Associated Diagnoses Date/Ti mt ESOPHAGOGASTRODUODENOSCOPY DIAGNOSTIC Esophageal dysphagia (R13.19) 08/09/2025 12:00 [...] documented as of this encounter Care Teams Molder Helper Relationship Specialty Start Date End Date Jesenia Peng APRN-ADDICTIONS THERAPIST [address] [place] [address], [address] [place] [address] PCP - General 03/19/15 documented as of this encounter
--- OUTSIDE RECORDS SUMMARY | 2025-07-26 11:25 | XMS_ITS | Encounter Summary ---
Author Organization [employer] Address [id number] [address] [place] [address] Care Team Providers Care Lamp Shade Joiner Name Role Phone Jesenia Peng RIDER TICKET WORKER-FELLED SEAM OPERATOR Primary Care Provider Reason for Visit * Reason Comments Med Refill Encounter Details Date Type Department Care Team (Late st Contact Info) Description 12/17/2024 Refill [facility] [address] [place] [phone] Neli Clemente MD MPH [address] [place] [phone] Inflammatory polyarthritis ([facility]) Social History Tobacco Use Types Packs/Day Years [...] Office Visit [facility], A Department of [address], [address], [address] [place] [address] Trice Stinson MD [address] [place] [address] 101, 102, [address] [place] [address] 08/03/2025 9:30 AM EDT Procedure visit [facility] On [address] [address] 08/07/2025 11:00 AM EDT Office Visit [facility] [address] [place] [address] Isidro Woodall DO [address] [facility] [address] [place] [address] 08/07/2025 11:00 AM EDT Appointment [facility] [address] [place] [address] 08/09/2025 12:00 PM EDT Hospital Encounter [facility] - Endoscopy [address] [facility] [place] [phone] Cliff Greenfield MD [address] [facility], [address] [place] [address] 08/09/2025 12:00 PM EDT - 08/09/2025 12:30 PM EDT Surgery [facility] - Endoscopy [address] [facility] [place] [address] [place] [address] [place] [address], [address] [place] [address] ESOPHAGOGASTRODUODENOSCOPY DIAGNOSTIC [41876 (CPT )] 08/21/2025 2:30 PM EDT Appointment [facility] [address] [place] [address] 08/22/2025 2:30 PM EDT Office Visit [facility] [address] [facility] [address] [place] [address] Isidro Woodall, [address] [facility] [address] [place] [address] 08/23/2025 1:30 PM EDT Office Visit [facility] [address] [facility] [address] [place] [phone] Jesenia Peng, RIDER TICKET WORKER-FELLED SEAM OPERATOR [address] [place] [address], [address] [place] [address] 09/26/2025 1:30 PM EST Office Visit [facility], A Department of [address] [phone] Neli Clemente MD MPH [address] [place] [phone] 10/13/2025 11:45 AM EST Office Visit [facility] [address] [place] [address] [address] [place] [phone] Duong Johnson, DO [address] [place] [address], [address] [place] [address] 10/13/2025 3:15 PM EST [facility], A Department of [address] [place] [address] Ines Uribe PA-C [address] [place] [address], [address] [place] [address] 11/14/2025 12:20 PM EST Office Visit [facility] [address] [facility] [address] [place] [phone] Ofelia Pierce V, RIDER TICKET WORKER-FELLED SEAM OPERATOR [address] [facility] [address] [place] [address] 11/21/2025 12:30 PM EST Appointment [facility] [place] - M[facility]ography [address] [place] [phone] Scheduled Procedures Name Priority Associated Diagnoses Date/Ti [...] this encounter Visit Diagnoses Diagnosis Inflammatory polyarthritis ([facility]) Unspecified inflammatory polyarthropathy documented in this encounter Additional Health Concerns Infection Onset Date Last Indicated Resolved Time COVID-19 Rule-Out 06/27/2025 06/27/2025 06/27/2025 2:03 PM EDT Assessment Noted Time PHQ-9 Depression Total Score: 0 08/09/20 7:00 AM EDT A Body Mass Index follow-up plan has been documented for the patient 06/29/2024 1:23 PM EDT documented as of this encounter Care Teams Lamp Shade Joiner Relationship Specialty Start Date End Date Jesenia Peng, RIDER TICKET WORKER-FELLED SEAM OPERATOR [address] [facility], [address] [place] [address] PCP - General 03/19/15 documented as of this encounter
--- OUTSIDE RECORDS SUMMARY | 2025-07-26 11:25 | XMS_ITS | Encounter Summary ---
Author Organization [facility] Sys tem Address [id number] [address] [place] [address] Care Team Providers Care Wrapper Stripper Name Role Phone Jesenia Peng [facility] Primary Care Provider Encounter Details Date Type Department Care Team (Late st Contact Info) Description 11/20/2020 [facility] [place] [phone] Jaja Hayes MEDICAL LEAD-[address], [address], [address] [place] [address] Social History Tobacco Use Types [...] Notes * Telephone Encounter - Jaja Hayes, MEDICAL LEAD-HEAD CUSTODIAN - 11/20/2020 2:16 PM EST Please note email received by pt and response sent to pt regarding tendon and muscle tears. ? To: Ty Branham Please see the thread, she???s probably seeing Emy or Michelle on Thursday?? Begin forwarded message: ? Reply Forward ? You forwarded this message on Thu11/16/2020 5:02 PM DIANA Madera <[email or web address]> Thu11/16/2020 1:07 PM ? To: Jaja Hayes ? Thank you so much!?? I will be in the office seeing??a new TUCKING MACHINE OPERATOR on??thursday at 3:30.?? Sure wish i was seeing you instead! ? Thanks again, Beena ? On Nov 16, 2020 at 3:43 PM Jaja Hayes <[email or web address]> wrote: Rupinder Velasquez I am delayed in [...] get more feedback from Dr. Branham ? Elsa ?? From: Beena Madera <[email or web address]> Sent: Thursday, November 12, 2020 8:03 PM To: Jaja Hayes <[email or web address]> Subject: [EXTERNAL] Question about my meds ?? [...] that may help.?? Best regards. Beena Madera [phone] (home) [phone] (cell) documented in this encounter Plan of Treatment Upcoming Encounters Date Type Department Care Team (Latest Contact Info) Description 08/01/2025 2:00 PM EDT Office Visit [facility] Neurology, A Department of [address], [address], [address] [place] [address] Trice Stinson MD [address] [place] [address] 101, 102, 103 [place] [address] 08/03/2025 9:30 AM EDT Procedure visit [facility] On [address] [address] 08/07/2025 11:00 AM EDT Office Visit [facility] [address] [facility] 170 [place] [address] Isidro Woodall DO [address] [facility] 170 [place] [address] 08/07/2025 11:00 AM EDT Appointment [facility] Radiology [address] [place] [address] 08/09/2025 12:00 PM EDT Hospital Encounter [facility] Division of [facility] - Endoscopy [address] [place] [address] [place] [address] [place] [address], [address] [place] [address] 08/09/2025 12:00 PM EDT - 08/09/2025 12:30 PM EDT Surgery [facility] Division [facility] - Endoscopy [address] [place] [address] [place] [address] [place] [address], [address] [place] [address] ESOPHAGOGASTRODUODENOSCOPY DIAGNOSTIC [24139 (CPT )] 08/21/2025 2:30 PM EDT Appointment [facility] [address] [place] [address] 08/22/2025 2:30 PM EDT Office Visit [facility] [address] [facility] 170 [place] [address] Isidro Woodall DO [address] [facility] 170 [place] [address] 08/23/2025 1:30 PM EDT Office Visit [facility] [address] [facility] 170 [place] [address] Jesenia Peng, MEDICAL LEAD-HEAD CUSTODIAN [address] [facility], [address] [place] [address] 09/26/2025 1:30 PM EST Office Visit [facility], A Department of [address] [place] [phone] Neli lCemente MD MPH [address] [place] [phone] 10/13/2025 11:45 AM EST Office Visit [facility] Cardiology [address] [place] [address] 202 [place] [phone] Duong Johnson, DO [address] [place] [address], [address] [place] [address] 10/13/2025 3:15 PM EST Office Visit [facility], A Department of [address] [place] [phone] Ines Uribe, PA-C [address] [place] [address], [address] [place] [address] 11/14/2025 12:20 PM EST Office Visit [facility] [address] [facility] 170 [place] [address] Ofelia Pierce V, MEDICAL LEAD-HEAD CUSTODIAN [address] [facility] [address] [place] [address] 11/21/2025 12:30 PM EST Appointment [facility] [address] [place] [address] Scheduled Procedures Name Priority Associated Diagnoses Date/Ti me ESOPHAGOGASTRODUODENOSCOPY DIAGNOSTIC Esophageal dysphagia (R13.19) 08/09/2025 12:00 PM EDT documented as of this encounter Visit Diagnoses [...] documented as of this encounter Care Teams Wrapper Stripper Relationship Specialty Start Date End Date Jesenia Peng APRN-HEAD CUSTODIAN [address] [place] [address], [address] [place] [address] PCP - General 03/19/15 documented as of this encounter
--- OUTSIDE RECORDS SUMMARY | 2025-07-26 11:25 | XMS_ITS | Encounter Summary ---
Author Organization [facility] Address [facility][id number] [address] [place] [address] Care Team Providers Care Boiler Out Name Role Phone Jesenia Peng EQUIPMENT OPERATOR WAGE HAND-ABLE BODIED WATCHMAN Primary Care Provider Encounter Details Date Type Department Care Team (Late st Contact Info) Description 12/04/2022 Orders Only [facility] [address] [place] [phone] Jaja Sanabria MA Social History Tobacco Use [...] Description 08/01/2025 2:00 PM EDT Office Visit [facility], A Department of [address] [place], [address], [address] [place] [address] Trice Stinson MD [address] [place] [address] 101, 102, 103 [place] [address] 08/03/2025 9:30 AM EDT Procedure visit [facility] On [address] [address] 08/07/2025 11:00 AM EDT Office Visit [facility] [address] [facility] 170 [place] [address] Isidro Woodall DO [address] [facility] 170 [place] [address] 08/07/2025 11:00 AM EDT Appointment [facility] Radiology [address] [place] [address] 08/09/2025 12:00 PM EDT Hospital Encounter [facility] Division of [facility] - Endoscopy [address] [place] [address] Cliff Greenfield MD [address] [place] [address], [address] [place] [address] 08/09/2025 12:00 PM EDT - 08/09/2025 12:30 PM EDT Surgery [facility]oscopy [address] [place] [address] [place] [address] [place] [address], [address] [place] [address] ESOPHAGOGASTRODUODENOSCOPY DIAGNOSTIC [40072 (CPT )] 08/21/2025 2:30 PM EDT Appointment [facility] Radiology [address] [place] [address] 08/22/2025 2:30 PM EDT Office Visit [facility] [address] [facility] 170 [place] [address] Isidro Woodall, DO 2865 [facility] 170 [place] [address] 08/23/2025 1:30 PM EDT Office Visit [facility] [address] [facility] [address] [place] [address] Jesenia Peng, EQUIPMENT OPERATOR WAGE HAND-ABLE BODIED WATCHMAN [address] [facility], [address] [place] [address] 09/26/2025 1:30 PM EST Office Visit [facility], A Department of [address] [phone] Neli Clemente MD MPH [address] [place] [address] 10/13/2025 11:45 AM EST Office Visit [facility] Cardiology [address] [place] [phone] Duong Johnson, [address] [place] [address], [address] [place] [address] 10/13/2025 3:15 PM EST Office Visit [facility] Health Care, A Department of [address] [phone] Ines Uribe PA-C [address] [place] [address], [address] [place] [address] 11/14/2025 12:20 PM EST Office Visit [facility] [address] [place] [phone] Ofelia Pierce V EQUIPMENT OPERATOR WAGE HAND-ABLE BODIED WATCHMAN [address] [place] [address] 11/21/2025 12:30 PM EST Appointment [facility] [place] - Mammography [address] [place] [address] Scheduled Procedures Name Priority Associated Diagnoses Date/Ti [...] (11/18/2022) us Not In System Ref Prov [facility] Final Result MANUALLY TRANSCRIBED [...] documented as of this encounter Care Teams Boiler Out Relationship Specialty Start Date End Date Jesenia Peng, EQUIPMENT OPERATOR WAGE HAND-ABLE BODIED WATCHMAN [address] [facility], [address] [place] [address] PCP - General 03/19/15 documented as of this encounter
--- OUTSIDE RECORDS SUMMARY | 2025-07-26 11:25 | XMS_ITS | Encounter Summary ---
Author Organization [facility] Sys tem Address [id number] [address] [place] [address] Care Team Providers Care Instrument Room Technician Name Role Phone Jesenia Peng LEAF BLENDER-STONEWORKING BELT SANDER Primary Care Provider Encounter Details Date Type Department Care Team (Late st Contact Info) Description 12/14/2024 Orders Only [facility] [address] [place] [phone] Ofelia Pierce V, LEAF BLENDER-STONEWORKING BELT SANDER [address] [place] [address] Social History Tobacco Use Types Packs/Day Years [...] Office Visit [facility], A Department of [address], [address], [address] [place] [address] Trice Stinson MD [address] [place] [address] 101, 102, 103 [place] [address] 08/03/2025 9:30 AM EDT Procedure visit [facility] On [address] [address] 08/07/2025 11:00 AM EDT Office Visit [facility] [address] [facility] 170 [place] [address] Isidro Woodall DO [address] [facility] 170 [place] [address] 08/07/2025 11:00 AM EDT Appointment [facility] [address] [place] [address] 08/09/2025 12:00 PM EDT Hospital Encounter [facility] - Endoscopy [address] [place] [address] [place] [address] [place] [address], [address] [place] [address] 08/09/2025 12:00 PM EDT - 08/09/2025 12:30 PM EDT Surgery [facility] - Endoscopy [address] [place] [address] [place] [address] [place] [address], [address] [place] [address] ESOPHAGOGASTRODUODENOSCOPY DIAGNOSTIC [06548 (CPT )] 08/21/2025 2:30 PM EDT Appointment [facility] Rad[facility] [address] [place] [address] 08/22/2025 2:30 PM EDT Office Visit [facility] [address] [facility] 170 [place] [address] Isidro Woodall, DO 2865 [facility] 170 [place] [address] 08/23/2025 1:30 PM EDT Office Visit [facility] [address] [facility] 170 [place] [address] Jesenia Peng, LEAF BLENDER-STONEWORKING BELT SANDER [address] [facility], 170 [place] [address] 09/26/2025 1:30 PM EST Office Visit [facility], A Department of [address] [phone] Neli Clemente MD MPH [address] [place] [address] 10/13/2025 11:45 AM EST Office Visit [facility] Cardiology [address] [place] [phone] Duong Johnson, [address] [place] [address], [address] [place] [address] 10/13/2025 3:15 PM EST Office Visit [facility], A Department of [address] [phone] Ines Uribe PA-C 5700 [facility], [address] [place] [address] 11/14/2025 12:20 PM EST Office Visit [facility] [address] [place] [address] Ofelia Pierce APRN-STONEWORKING BELT SANDER [address] [place] [address] 11/21/2025 12:30 PM EST Appointment [facility] [place] - Mammography [address] [place] [address] Scheduled Procedures Name Priority Associated [...] documented as of this encounter Care Teams Instrument Room Technician Relationship Specialty Start Date End Date Jesenia Peng APRN-STONEWORKING BELT SANDER [address] [place] [address], [address] [place] [id number] PCP - General 03/19/15 documented as of this encounter
--- OUTSIDE RECORDS SUMMARY | 2025-07-26 11:25 | XMS_ITS | Encounter Summary ---
Author Organization [email or web address] Address [facility][id number] [address] [place] [address] Care Team Providers Care Swimming Coach Name Role Phone Jesenia Peng Primary Care Provider Reason for Referral * Consultation (Routine) - Closed Specialty Diagnoses / Procedures Referred By Madeline t Referred To Contact Oncology / Gynecologic Oncology Diagnoses Abnormal pelvic ultrasound Jesenia Peng APRN-CNP [address] [facility], [address] [place] [address] Phone: tel: fax: Bossman Rivas MD [address] [facility], [address] [place] [address] Phone: tel: fax: Referral ID Status Reason Start Date Expiration Date V isits Requested Visits Authorized [id number] Closed Specialty Services Required 12/04/2022 12/04/2023 1 1 Encounter Details Date Type Department Care Team (Late st Contact Info) Description 12/04/2022 Orders Only [facility] [address] [place] [address] Jesenia Peng APRN-CNP [address] [facility], [address] [place], [place] [phone] Abnormal pelvic ultrasound (Primary Dx) Social History [...] Office Visit [facility], A Department of [address], [address], [address] [place] [phone] Trice Stinson MD [address] [place] [address] 101, 102, 103 [place] [address] 08/03/2025 9:30 AM EDT Procedure visit [facility] On [address] [address] 08/07/2025 11:00 AM EDT Office Visit [facility] [address] [address] Isidro Woodall DO [address] [facility] 170 [place] [address] 08/07/2025 11:00 AM EDT Appointment [facility] Radiology [address] [place] [address] 08/09/2025 12:00 PM EDT Hospital Encounter [facility] Division [facility] - Endoscopy [address] [place] [address] [place] [address] [place] [address], [address] [place] [address] 08/09/2025 12:00 PM EDT - 08/09/2025 12:30 PM EDT Surgery [facility] Division of [facility] - Endoscopy [address] [place] [address] Cliff Greenfield MD [address] [facility], [address] [place] [address] ESOPHAGOGASTRODUODENOSCOPY DIAGNOSTIC [04718 (CPT )] 08/21/2025 2:30 PM EDT Appointment [facility] [address] [place] [address] 08/22/2025 2:30 PM EDT Office Visit [facility] [address] [facility] 170 [place] [address] Isidro Woodall DO [address] [facility] 170 [place] [address] 08/23/2025 1:30 PM EDT Office Visit [facility] [address] [facility] 170 [place] [address] Jesenia Peng, SUGAR PRESSER-JUDICIAL REPORTER [address] [facility], [address] [place] [address] 09/26/2025 1:30 PM EST Office Visit [facility], A Department of [facility] [address] [facility] [address] [place] [address] Neli Clemente MD MPH [address] [facility] 202 [place] [address] 10/13/2025 11:45 AM EST Office Visit [facility] Cardiology [address] [place] [address] 202 [place] [address] Duong Johnson DO [address] [facility], [address] [place] [address] 10/13/2025 3:15 PM EST Office Visit [facility], A Department of [facility] [address] [place] [address] 103 [place] [address] Ines Uribe PA-C [address]00 [facility], [address] [place] [address] 11/14/2025 12:20 PM EST Office Visit [facility] [address] [place] [phone] Ofelia Pierce V, SUGAR PRESSER-JUDICIAL REPORTER [address] [place] [address] 11/21/2025 12:30 PM EST Appointment [facility] [place] [facility] [address] [place] [address] Scheduled Procedures Name Priority Associated Diagnoses Date/Ti nd ESOPHAGOGASTRODUODENOSCOPY DIAGNOSTIC Esophageal dysphagia (R13.19) 08/09/2025 12:00 PM EDT Scheduled Referrals Name Type Priority Associated Diagnoses Order Schedule [facility] Gynecologic Oncology. Rob Reyes, and [place] Outpatient Referral Routine Abnormal pelvic ultrasound [...] documented as of this encounter Care Teams Swimming Coach Relationship Specialty Start Date End Date Jesenia Peng APRN-JUDICIAL REPORTER [address] [place] [address], [address] [place] [address] PCP - General 03/19/15 documented as of this encounter
--- OUTSIDE RECORDS SUMMARY | 2025-07-26 11:25 | XMS_ITS | Encounter Summary ---
Author Organization [employer] Sys tem Address [id number] [address] [place] [address] Care Team Providers Care Wardrobe Specialty Worker Name Role Phone Jesenia Peng FUEL YARD OPERATOR-HAND EDGER Primary Care Provider Encounter Details Date Type Department Care Team (Late st Contact Info) Description 12/04/2022 Telephone [facility] [address] [place] [address] Jaja Sanabria MA Social History [...] Office Visit [facility], A Department of [address] 101, 102, [address] [place] [address] Trice Stinson MD [address] [place] [address] 101, 102, 103 [place] [address] 08/03/2025 9:30 AM EDT Procedure visit [facility] On [address] [address] 08/07/2025 11:00 AM EDT Office Visit [facility] [address] [facility] 170 [place] [address] Isidro Woodall DO [address] [facility] 170 [place] [address] 08/07/2025 11:00 AM EDT Appointment [facility] [address] [place] [address] 08/09/2025 12:00 PM EDT Hospital Encounter [facility] - Endoscopy [address] [place] [address] Cliff Greenfield MD [address] [place] [address], [address] [place] [address] 08/09/2025 12:00 PM EDT - 08/09/2025 12:30 PM EDT Surgery [facility] - Endoscopy [address] [place] [address] Cliff Greenfield MD [address] [place] [address], [address] [place] [address] ESOPHAGOGASTRODUODENOSCOPY DIAGNOSTIC [[id number] (CPT )] 08/21/2025 2:30 PM EDT Appointment [facility] [address] [place] [address] 08/22/2025 2:30 PM EDT Office Visit [facility] [address] [facility] 170 [place] [address] Isidro Woodall, 2865 [facility] 170 [place] [address] 08/23/2025 1:30 PM EDT Office Visit [facility] [address] [phone] Jesenia Peng, FUEL YARD OPERATOR-HAND EDGER [address] [place], [place] [address] [place] [address] 09/26/2025 1:30 PM EST Office Visit [facility], A Department of [address] [phone] Neli Clemente MD MPH [address] [place] [address] 10/13/2025 11:45 AM EST Office Visit [facility] Cardiology [address] [place] [phone] Duong Johnson, [address] [place] [address] 10/13/2025 3:15 PM EST Office Visit [facility], A Department of [address] [phone] Ines Uribe PA-C [address] [facility], [address] [place] [address] 11/14/2025 12:20 PM EST Office Visit [facility] [address] [place] [address] Ofelia Pierce V, FUEL YARD OPERATOR-HAND EDGER [address] [facility] [address] [place] [address] 11/21/2025 12:30 PM EST Appointment [facility] [place] [facility] [address] [place] [phone] Scheduled Procedures Name Priority Associated Diagnoses Date/Ti [...] documented as of this encounter Care Teams Wardrobe Specialty Worker Relationship Specialty Start Date End Date Jesenia Peng, FUEL YARD OPERATOR-HAND EDGER [address] [facility], [address] [place] [address] PCP - General 03/19/15 documented as of this encounter
--- OUTSIDE RECORDS SUMMARY | 2025-07-26 11:25 | XMS_ITS | Encounter Summary ---
Author Organization [facility] tem Address [facility] [id number] [address] [place] [address] Care Team Providers Care Bistro Server Name Role Phone Jesenia Peng ELECTRICAL DESIGN TECHNOLOGIST-LAB ANIMAL TECHNICIAN Primary Care Provider Encounter Details Date Type Department Care Team (Late st Contact Info) Description 07/24/2022 Orders Only [facility] [address] [place] [phone] Adam Noland, IRENE Social History Tobacco Use [...] Visit [facility], A Department of [address], 102, [address] [place] [address] Trice Stinson MD [address] [place] [address], [address], [address] [place] [address] 08/03/2025 9:30 AM EDT Procedure visit [facility] On [address] [address] 08/07/2025 11:00 AM EDT Office Visit [facility] [address] [facility] [address] [place] [address] Isidro Woodall DO [address] [facility] [address] [place] [address] 08/07/2025 11:00 AM EDT Appointment [facility] Radiology [address] [place] [address] 08/09/2025 12:00 PM EDT Hospital Encounter [facility] - Endoscopy [address] [place] [address] [place] [address] [place] [address], [address] [place] [address] 08/09/2025 12:00 PM EDT - 08/09/2025 12:30 PM EDT Surgery [facility] - Endoscopy [address] [place] [address] Cliff Greenfield MD [address] [place] [address], [address] [place] [address] ESOPHAGOGASTRODUODENOSCOPY DIAGNOSTIC [92385 (CPT )] 08/21/2025 2:30 PM EDT Appointment [facility] Radiology [address] [place] [address] 08/22/2025 2:30 PM EDT Office Visit [facility] [address] [facility] [address] [place] [address] Isidro Woodall DO [address] [facility] [address] [place] [address] 08/23/2025 1:30 PM EDT Office Visit [facility] [address] [facility] [address] [place] [address] Jesenia Peng, ELECTRICAL DESIGN TECHNOLOGIST-LAB ANIMAL TECHNICIAN 2865 [facility], [address] [place] [address] 09/26/2025 1:30 PM EST Office Visit [facility], A Department of [address] [phone] Neli Clemente MD MPH [address] [place] [phone] 10/13/2025 11:45 AM EST Office Visit [facility] Cardiology [address] [place] [phone] Duong Johnson DO [address] [place] [address], [address] [place] [address] 10/13/2025 3:15 PM EST Office Visit [facility], A Department of [address] [phone] Ines Uribe PA-C [address] [place] [address], [address] [address] 11/14/2025 12:20 PM EST Office Visit [facility] [address] [place] [address] Ofelia Pierce V, ELECTRICAL DESIGN TECHNOLOGIST-LAB ANIMAL TECHNICIAN [address] [facility] [address] [place] [address] 11/21/2025 12:30 PM EST Appointment [facility] [place] - Mammography [address] [place] [phone] Scheduled Procedures Name Priority Associated Diagnoses Date/Ti [...] documented as of this encounter Care Teams Bistro Server Relationship Specialty Start Date End Date Jesenia Peng, ELECTRICAL DESIGN TECHNOLOGIST-LAB ANIMAL TECHNICIAN 28[address] [facility], [address] [place] [address] PCP - General 03/19/15 documented as of this encounter
--- OUTSIDE RECORDS SUMMARY | 2025-07-26 11:25 | XMS_ITS | Encounter Summary ---
Author Organization [facility] tem Address [facility] [id number] [address] [place] [address] Care Team Providers Care Motor Vehicle Technician Name Role Phone Jesenia Peng ASSISTANT DISTRICT ATTORNEY-STORE WORKER Primary Care Provider Encounter Details Date Type Department Care Team (Late st Contact Info) Description 10/03/2024 Orders Only [facility] [address] [place] [address] Ref Prov, [place] [address] Social History Tobacco Use Types Packs/Day Years [...] Office Visit [facility], A Department of [address] 101, 102, [address] [place] [address] Trice Stinson MD [address] [place] [address], [facility] 101, 102, 103 [place] [address] 08/03/2025 9:30 AM EDT Procedure visit [facility] On [address] [address] 08/07/2025 11:00 AM EDT Office Visit [facility] [address] [facility] 170 [place] [address] Isidro Woodall DO [address] [facility] 170 [place] [address] 08/07/2025 11:00 AM EDT Appointment [facility] Radiology [address] [place] [address] 08/09/2025 12:00 PM EDT Hospital Encounter [facility] - Endoscopy [address] [place] [address] [place] [address] [place] [address], [address] [place] [address] 08/09/2025 12:00 PM EDT - 08/09/2025 12:30 PM EDT Surgery [facility] - Endoscopy [address] [place] [address] Cliff Greenfield MD [address] [place] [address], [address] [place] [address] ESOPHAGOGASTRODUODENOSCOPY DIAGNOSTIC [[id number] (CPT )] 08/21/2025 2:30 PM EDT Appointment [facility] Rad[facility] [address] [place] [address] 08/22/2025 2:30 PM EDT Office Visit [facility] [address] [facility] 170 [place] [address] Isidro Woodall, DO [address] [facility] 170 [place] [address] 08/23/2025 1:30 PM EDT Office Visit [facility] [address] [facility] [address] [place] [address] Jesenia Peng, ASSISTANT DISTRICT ATTORNEY-STORE WORKER 28[address] [facility], [address] [place] [address] 09/26/2025 1:30 PM EST Office Visit [facility], A Department of [address] [phone] Neli Clemente MD MPH [address] [place] [phone] 10/13/2025 11:45 AM EST Office Visit [facility] Cardiology [address] [place] [address] [address] [place] [phone] Duong Johnson, [address] [place] [address], [address] [place] [address] 10/13/2025 3:15 PM EST Office Visit [facility], A Department of [address] [phone] Ines Uribe PA-C [address] [place] [address], [address] [place], [place] [phone] 11/14/2025 12:20 PM EST Office Visit [facility] [address] [place] [phone] Ofelia Pierce V ASSISTANT DISTRICT ATTORNEY-STORE WORKER [address] [place] [address] 11/21/2025 12:30 PM EST Appointment [facility] [place] - Mammography [address] [place] [address] Scheduled Procedures Name Priority Associated Diagnoses [...] documented as of this encounter Care Teams Motor Vehicle Technician Relationship Specialty Start Date End Date Jesenia Peng, ASSISTANT DISTRICT ATTORNEY-STORE WORKER 28[address] [facility], [address] [place] [address] PCP - General 03/19/15 documented as of this encounter
--- OUTSIDE RECORDS SUMMARY | 2025-07-26 11:26 | XMS_ITS | Encounter Summary ---
Author Organization [facility] tem Address [facility] [place] [place][id number] [address] [place] [address] Care Team Providers Care Ballast Regulator Operator Name Role Phone Jesenia Peng Primary Care Provider Reason for Referral * Consultation (Urgent) - Closed Specialty Diagnoses / Procedures Referred By Contsudheer t Referred To Contact Cardiology Diagnoses Abnormal cardiovascular stress test Jesenia Peng APRN-CNP [address] [facility], [address] [place] [address] Phone: tel: fax: Uriel Brandon MD Phone: tel: fax: Referral ID Status Reason Start Date Expiration Date V isits Requested Visits Authorized [id number] Closed Specialty Services Required 11/29/2020 11/29/2021 1 1 Encounter Details Date Type Department Care Team (Late st Contact Info) Description 11/29/2020 Orders Only [facility] [address] [place] [address] Jesenia Peng APRN-CNP [address] [facility], [address] [place], [place] [id number] Abnormal cardiovascular stress test (Primary Dx) Social [...] Office Visit [facility], A Department of [place] [address], [address], [address] [place] [phone] Trice Stinson MD [address] [place] [address] 101, 102, 103 [place] [address] 08/03/2025 9:30 AM EDT [facility] On [address] [address] 08/07/2025 11:00 AM EDT Office Visit [facility] [address] [phone] Isidro Woodall DO [address] [place] [facility] 170 [place] [address] 08/07/2025 11:00 AM EDT Appointment [facility] [address] [place] [address] 08/09/2025 12:00 PM EDT Hospital Encounter [facility] Division of [facility] - Endoscopy [address] [place] [address] [place] [address] [place] [address], [address] [place] [address] 08/09/2025 12:00 PM EDT - 08/09/2025 12:30 PM EDT Surgery [facility] - Endoscopy [address] [place] [address] [place] [address] [place] [address], [address] [place] [address] ESOPHAGOGASTRODUODENOSCOPY DIAGNOSTIC [[id number] (CPT )] 08/21/2025 2:30 PM EDT Appointment [facility] [address] [place] [address] 08/22/2025 2:30 PM EDT Office Visit [facility] [address] [facility] 170 [place] [address] Isidro Woodall, DO [address] [facility] 170 [place] [address] 08/23/2025 1:30 PM EDT Office Visit [facility] [address] [facility] 170 [place] [phone] Jesenia Peng, ARBOR PRESS OPERATOR-SENIOR JAVA SOFTWARE ENGINEER [address] [facility], [address] [place] [address] 09/26/2025 1:30 PM EST Office Visit [facility], A Department of [address] [place] [address] Neli Clemente MD MPH [address] [place] [address] 10/13/2025 11:45 AM EST Office Visit [facility] Cardiology [address] [place] [address] 202 [place] [address] Duong Johnson DO [address] [facility], [address] [place] [address] 10/13/2025 3:15 PM EST Office Visit [facility], A Department of [address] [place] [address] Ines Uribe PA-C [address] [place] [address], [address] [place] [address] 11/14/2025 12:20 PM EST Office Visit [facility] [address] [place] [address] Ofelia Pierce V, ARBOR PRESS OPERATOR-SENIOR JAVA SOFTWARE ENGINEER [address] [place] [address] 11/21/2025 12:30 PM EST Appointment [facility] [place] - Mammography [address] [place] [phone] Scheduled Procedures Name Priority Associated Diagnoses Date/Ti ar ESOPHAGOGASTRODUODENOSCOPY DIAGNOSTIC Esophageal dysphagia (R13.19) 08/09/2025 12:00 PM EDT Scheduled Referrals Name Type Priority Associated Diagnoses Orde r Schedule [facility] - [place] Outpatient Referral Routine Abnormal cardiovascular stress [...] documented as of this encounter Care Teams Ballast Regulator Operator Relationship Specialty Start Date End Date Jesenia Peng APRN-SENIOR JAVA SOFTWARE ENGINEER [address] [place] [address], [address] [place] [address] PCP - General 03/19/15 documented as of this encounter
--- OUTSIDE RECORDS SUMMARY | 2025-07-26 11:26 | XMS_ITS | Encounter Summary ---
Author Organization [employer] tem Address [facility] [place][id number] [address] [place] [address] Care Team Providers Care Staining Machine Operator Name Role Phone Jesenia Peng SOLDERER FURNACE-APIARIST Primary Care Provider Encounter Details Date Type Department Care Team (Late st Contact Info) Description 11/27/2022 Orders Only [facility] [address] [facility] [address] [place] [address] Anamaria Perkins CMA Primary hypertension; [...] Description 08/01/2025 2:00 PM EDT Office Visit [facility], A Department of [facility] [address] [facility] 101, 102, 103 [place] [address] Trice Stinson MD [address] [facility], [address], 102, 103 [place] [address] 08/03/2025 9:30 AM EDT Procedure visit [facility] On [address] [address] 08/07/2025 11:00 AM EDT Office Visit [facility] [address] [facility] 170 [place] [address] Isidro Woodall DO [address] [facility] 170 [place] [address] 08/07/2025 11:00 AM EDT Appointment [facility] [address] [place] [address] 08/09/2025 12:00 PM EDT Hospital Encounter [facility] - Endoscopy [address] [place] [address] [place] [address] [place] [address], [address] [place] [address] 08/09/2025 12:00 PM EDT - 08/09/2025 12:30 PM EDT Surgery [facility] - Endoscopy [address] [place] [address] [place] [address] [place] [address], [address] [place] [address] ESOPHAGOGASTRODUODENOSCOPY DIAGNOSTIC [[id number] (CPT )] 08/21/2025 2:30 PM EDT Appointment [facility] [address] [place] [address] 08/22/2025 2:30 PM EDT Office Visit [facility] [address] [facility] 170 [place] [address] Isidro Woodall, DO [address] [facility] 170 [place] [address] 08/23/2025 1:30 PM EDT Office Visit [facility] [address] [facility] 170 [place] [address] Jesenia Peng, SOLDERER FURNACE-APIARIST [address] [facility], [address] [place] [address] 09/26/2025 1:30 PM EST Office Visit [facility], A Department of [address] [phone] Neli Clemente MD MPH [address] [place] [address] 10/13/2025 11:45 AM EST Office Visit [facility] Cardiology [address] [place] [phone] Duong Johnson, DO [address] [place] [address], [address] [place] [address] 10/13/2025 3:15 PM EST [facility], A Department of [address] [phone] Ines Uribe PA-C [address] [place] [address], [address] [phone] 11/14/2025 12:20 PM EST Office Visit [facility] [phone] Ofelia Pierce V, SOLDERER FURNACE-APIARIST [address] [place] [address] 11/21/2025 12:30 PM EST Appointment [facility] [place] - Mammography [address] [place] [address] Scheduled Procedures Name Priority Associated Diagnoses Date/Ti [...] * CBC auto differential (11/25/2022) 11/25/2022 Jesenia Peng SOLDERER FURNACE-APIARIST LAB BLOOD ORDERABLES Fi nal Result Performing Organization Address City/[facility]/ZIP Co de Phone Number [facility] [employer] ([employer]) * Comprehensive metabolic panel (11/25/2022) 11/25/2022 Jesenia Peng SOLDERER FURNACE-APIARIST LAB BLOOD ORDERABLES Fi nal Result SUNQUEST * Lipid profile (11/25/2022) External Cholesterol 250 <200 [facility] External Cholesterol:Hdl 3.0 <4.44 [facility] External Hdl Cholesterol 84 >39 [facility] External Ldl (Calc) 153 <100 [facility] External Triglycerides 63 <149 [facility] External Very Low Lipoprotein 13 <30 [facility] 11/25/2022 Jesenia LAFLEUR LAB BLOOD ORDERABLES Fi nal Result SUNQUEST * Urinalysis (11/25/2022) 11/25/2022 Jesenia Peng APRN-JONEL URINE ORDERABLES Final Result Performing Organization Address City/[facility] Co de Phone Number SUNQUEST documented in [...] documented as of this encounter Care Teams Staining Machine Operator Relationship Specialty Start Date End Date Jesenia Peng APRN-CNP [address] [place] [address], [address] [place] [id number] PCP - General 03/19/15 documented as of this encounter
--- OUTSIDE RECORDS SUMMARY | 2025-07-26 11:26 | XMS_ITS | Encounter Summary ---
Author Organization [facility] tem Address [facility] [place][id number] [address] [place] [address] Care Team Providers Care Technology Integration Specialist Name Role Phone Jesenia ePng PRELIMINARY SCHOOL PSYCHOLOGIST-LAW TUTOR Primary Care Provider Encounter Details Date Type Department Care Team (Late st Contact Info) Description 09/16/2021 Orders Only [facility] [address] [facility] [address] [place] [address] Anamaria Perkins CMA Encounter for [...] Visit [facility], A Department of [facility] [address], [address], [address] [place] [address] Trice Stinson MD [address] [facility], [address] 101, 102, 103 [place] [address] 08/03/2025 9:30 AM EDT Procedure visit [facility] On [address] [address] 08/07/2025 11:00 AM EDT Office Visit [facility] [address] [facility] 170 [place] [address] Isidro Woodall DO [address] [facility] 170 [place] [address] 08/07/2025 11:00 AM EDT Appointment [facility] [address] [place] [address] 08/09/2025 12:00 PM EDT Hospital Encounter [facility] - Endoscopy [address] [facility] [place] [address] [place] [address] [place] [address], [address] [place] [address] 08/09/2025 12:00 PM EDT - 08/09/2025 12:30 PM EDT Surgery [facility] - Endoscopy [address] [place] [address] [place] [address] [place] [address], [address] [place] [address] ESOPHAGOGASTRODUODENOSCOPY DIAGNOSTIC [[id number] (CPT )] 08/21/2025 2:30 PM EDT Appointment [facility] [address] [place] [address] 08/22/2025 2:30 PM EDT Office Visit [facility] [address] [facility] [address] [place] [address] Isidro Woodall, DO [address] [facility] 170 [place] [address] 08/23/2025 1:30 PM EDT Office Visit [facility] [address] [facility] [address] [place] [address] Jesenia Peng, PRELIMINARY SCHOOL PSYCHOLOGIST-LAW TUTOR [address] [facility], [address] [place] [address] 09/26/2025 1:30 PM EST Office Visit [facility], A Department of [address] [phone] Neli Clemente MD MPH [address] [place] [phone] 10/13/2025 11:45 AM EST Office Visit [facility] Cardiology [address] [place] [phone] Duong Johnson, [address] [place] [address], [address] [place] [address] 10/13/2025 3:15 PM EST Office Visit [facility], A Department of [address] [phone] Ines Uribe PA-C [address] [place] [address], [address] [address] 11/14/2025 12:20 PM EST Office Visit [facility] [address] [phone] Ofelia Pierce V, PRELIMINARY SCHOOL PSYCHOLOGIST-LAW TUTOR [address] [place] [address] [address] [place] [address] 11/21/2025 12:30 PM EST Appointment [facility] [place] - Mammography [address] [place] [phone] Scheduled Procedures Name Priority Associated Diagnoses Date/Ti me ESOPHAGOGASTRODUODENOSCOPY DIAGNOSTIC Esophageal dysphagia (R13.19) 08/09/2025 12:00 PM EDT documented as of this encounter Procedures Procedure Name Priority Date/Time Associated Diagnosis Comments MAMM SCREENING BILATERAL W CAD Routine 09/12/2021 Encounter for screening mammogram for malignant neoplasm of breast documented in this encounter Results * Mammography screening bilateral with CAD (09/12/2021) Anatomical Region Laterality Modality Breast Bilateral Mammography 09/12/2021 Jesenia Peng APRN-LAW TUTOR IMG MAMMOGRAPHY ORDERAB LES Edited Result - [...] documented as of this encounter Care Teams Technology Integration Specialist Relationship Specialty Start Date End Date Jesenia Peng APRN-LAW TUTOR [facility], [address] [place] [address] PCP - General 03/19/15 documented as of this encounter
--- OUTSIDE RECORDS SUMMARY | 2025-07-26 11:26 | XMS_ITS | Encounter Summary ---
Author Organization [facility] s tem Address [facility]-[id number] [address] [place] [address] Care Team Providers Care Lead Accountant Name Role Phone Jesenia Peng SENIOR FRONT END DEVELOPER-COURT CRIER Primary Care Provider Reason for Visit * Reason Onset Date Comments Med Refill 10/20/2019 Encounter Details Date Type Department Care Team (Late st Contact Info) Description 10/20/2019 Refill [facility] [address] [place] [phone] Adam Noland CMA Chronic right shoulder pain [...] Office Visit [facility], A Department of [facility] [address] [facility] 101, 102, 103 [place] [address] Trice Stinson MD [address] [facility], [address] 101, 102, 103 [place] [address] 08/03/2025 9:30 AM EDT Procedure visit [facility] On [address] [place] [address] 08/07/2025 11:00 AM EDT Office Visit [facility] [address] [facility] 170 [place] [address] Isidro Woodall DO [address] [facility] 170 [place] [address] 08/07/2025 11:00 AM EDT Appointment [facility] Radiology [address] [place] [address] 08/09/2025 12:00 PM EDT Hospital Encounter [facility] - Endoscopy [address] [facility] [address] [place] [address] [place] [address], [address] [place] [address] 08/09/2025 12:00 PM EDT - 08/09/2025 12:30 PM EDT Surgery [facility] - Endoscopy [address] [place] [address] [place] [address] [place] [address], [address] [place] [address] ESOPHAGOGASTRODUODENOSCOPY DIAGNOSTIC [19011 (CPT )] 08/21/2025 2:30 PM EDT Appointment [facility] Radiology [address] [place] [address] 08/22/2025 2:30 PM EDT Office Visit [facility] [address] [facility] 170 [place] [address] Isidro Woodall, DO [address] [facility] 170 [place] [address] 08/23/2025 1:30 PM EDT Office Visit [facility] [address] [facility] 170 [place] [address] Jesenia Peng, SENIOR FRONT END DEVELOPER-COURT CRIER [address] [facility], [address] [place] [address] 09/26/2025 1:30 PM EST Office Visit [facility], A Department of [address] [phone] Nlei Clemente MD MPH [address] [place] [address] 10/13/2025 11:45 AM EST Office Visit [facility] Cardiology [address] [place] [phone] Duong Johnson, DO [address] [place] [address], [address] [place] [address] 10/13/2025 3:15 PM EST Office Visit [facility], A Department of [address] [phone] Ines Uribe, PA-C [address] [place] [address], [address] [place], [place] [address] 11/14/2025 12:20 PM EST Office Visit [facility] [address] [facility] 170 [place] [address] Ofelia Pierce V, SENIOR FRONT END DEVELOPER-COURT CRIER [address] [facility] [place] [address] 11/21/2025 12:30 PM EST Appointment [facility] [address] [place] [phone] Scheduled Procedures Name Priority Associated Diagnoses Date/Ti [...] documented as of this encounter Care Teams Lead Accountant Relationship Specialty Start Date End Date Jesenia Peng APRN-COURT CRIER [address] [place] [address], [address] [place] [address] PCP - General 03/19/15 documented as of this encounter
--- OUTSIDE RECORDS SUMMARY | 2025-07-26 11:26 | XMS_ITS | Encounter Summary ---
Author Organization [facility] [employer] Sys tem Address [facility]-[id number] [address] [place] [address] Care Team Providers Care Microfabrication Engineer Manager Name Role Phone Jesenia Peng INVOICING SPECIALIST-PUBLISHING SPECIALIST Primary Care Provider Reason for Visit * Reason Comments Med Refill Encounter Details Date Type Department Care Team (Late st Contact Info) Description 12/28/2024 Refill [facility] Rheumatology [address] [place] [phone] Neli Clemente MD MPH [address] [place] [phone] Neck pain; Muscle tension pain Social [...] Office Visit [facility], A Department of [address] 101, 102, 103 [place] [phone] Trice Stinson MD [address] [place] [address] 101, 102, 103 [place] [address] 08/03/2025 9:30 AM EDT Procedure visit [facility] On [address] [address] 08/07/2025 11:00 AM EDT Office Visit [facility] [address] [facility] 170 [place] [phone] Isidro Woodall DO [address] [facility] 170 [place] [address] 08/07/2025 11:00 AM EDT Appointment [facility] Radiology [address] [place] [address] 08/09/2025 12:00 PM EDT Hospital Encounter [facility] - Endoscopy [address] [place] [address] Cliff Greenfield MD [address] [facility], [address] [place] [address] 08/09/2025 12:00 PM EDT - 08/09/2025 12:30 PM EDT Surgery [facility] - Endoscopy [address] [place] [address] Cliff Greenfield MD [address] [place] [address], [address] [place] [address] ESOPHAGOGASTRODUODENOSCOPY DIAGNOSTIC [[id number] (CPT )] 08/21/2025 2:30 PM EDT Appointment [facility]iology [address] [place] [address] 08/22/2025 2:30 PM EDT Office Visit [facility] 28[address] [facility] 170 [place] [phone] Isidro Woodall, DO 2865 [facility] 170 [place] [address] 08/23/2025 1:30 PM EDT Office Visit [facility] [address] [facility] 170 [place] [phone] Jesenia Peng, INVOICING SPECIALIST-PUBLISHING SPECIALIST [address] [facility], [address] [place] [address] 09/26/2025 1:30 PM EST Office Visit [facility], A Department of [address] [address] Neli Clemente MD MPH [address] [place] [phone] 10/13/2025 11:45 AM EST Office Visit [facility] Cardiology [address] [place] [phone] Duong Johnson, DO [address] [place] [address], [address] [place] [address] 10/13/2025 3:15 PM EST Office Visit [facility], A Department of [address] [place] [address] Ines Uribe PA-C 5700 [facility], [address] [place] [address] 11/14/2025 12:20 PM EST Office Visit [facility] [address] [facility] [address] [place] [phone] Ofelia Pierce V INVOICING SPECIALIST-PUBLISHING SPECIALIST [address] [facility] [address] [place] [address] 11/21/2025 12:30 PM EST Appointment [facility] [place] - Mammography [address] [place] [address] Scheduled Procedures Name Priority Associated [...] documented as of this encounter Care Teams Microfabrication Engineer Manager Relationship Specialty Start Date End Date Jesenia Peng, INVOICING SPECIALIST-PUBLISHING SPECIALIST [address] [facility], [address] [place] [address] PCP - General 03/19/15 documented as of this encounter
--- OUTSIDE RECORDS SUMMARY | 2025-07-26 11:26 | XMS_ITS | Encounter Summary ---
Author Organization [facility] Sys tem Address [facility] [place]-[id number] [address] [place] [address] Care Team Providers Care Field Servicer Name Role Phone Jesenia Peng POLICE LIEUTENANT-MEMBERSHIP COUNSELOR Primary Care Provider Encounter Details Date Type Department Care Team (Late st Contact Info) Description 08/29/2024 Orders Only [facility] Rheumatology [address] [facility] 202 [place] [address] Ref Prov, [place] [address] Social History Tobacco Use Types Packs/Day Years [...] Office Visit [facility], A Department of [address] 101, 102, 103 [place] [address] Trice Stinson MD [address] [place] [address], [facility] 101, 102, 103 [place] [address] 08/03/2025 9:30 AM EDT Procedure visit [facility] On [address] [address] 08/07/2025 11:00 AM EDT Office Visit [facility] [address] [facility] 170 [place] [address] Isidro Woodall DO [address] [facility] 170 [place] [address] 08/07/2025 11:00 AM EDT Appointment [facility] Radiology [address] [place] [address] 08/09/2025 12:00 PM EDT Hospital Encounter [facility] - Endoscopy [address] [place] [address] [place] [address] [place] [address], [address] [place] [address] 08/09/2025 12:00 PM EDT - 08/09/2025 12:30 PM EDT Surgery [facility] - Endoscopy [address] [place] [address] Cliff Greenfield MD [address] [place] [address], [address] [place] [address] ESOPHAGOGASTRODUODENOSCOPY DIAGNOSTIC [[id number] (CPT )] 08/21/2025 2:30 PM EDT Appointment [facility]iology [address] [place] [address] 08/22/2025 2:30 PM EDT Office Visit [facility] [address] [facility] 170 [place] [address] Isidro Woodall, DO 28[address] [facility] 170 [place] [address] 08/23/2025 1:30 PM EDT Office Visit [facility] [address] [facility] 170 [place] [address] Jesenia Peng, POLICE LIEUTENANT-MEMBERSHIP COUNSELOR [address] [facility], [address] [place] [address] 09/26/2025 1:30 PM EST Office Visit [facility], A Department of [address] [phone] Neli Clemente MD MPH [address] [place] [phone] 10/13/2025 11:45 AM EST Office Visit [facility] Cardiology [address] [place] [address] 202 [place] [phone] Duong Johnson, [address] [place] [address], [address] [place] [address] 10/13/2025 3:15 PM EST Office Visit [facility], A Department of [address] [phone] Ines Uribe PA-C [address] [place] [address], [address] [place], [place] [address] 11/14/2025 12:20 PM EST Office Visit [facility] [address] [place] [phone] Ofelia Pierce V, POLICE LIEUTENANT-MEMBERSHIP COUNSELOR [address] [place] [address] 11/21/2025 12:30 PM EST Appointment [facility] [place] - Mammography [address] [place] [address] Scheduled Procedures Name Priority Associated Diagnoses [...] documented as of this encounter Care Teams Field Servicer Relationship Specialty Start Date End Date Jesenia Peng, POLICE LIEUTENANT-MEMBERSHIP COUNSELOR [address] [facility], [address] [place] [address] PCP - General 03/19/15 documented as of this encounter
--- OUTSIDE RECORDS SUMMARY | 2025-07-26 11:26 | XMS_ITS | Encounter Summary ---
Author Organization [employer] [facility] tem Address [facility]-[id number] [address] [place] [address] Care Team Providers Care Road Roller Operator Hot Mix Name Role Phone Jesenia Peng WATER RESOURCE AGENT-PARK GUIDE Primary Care Provider Reason for Visit * Reason Comments Med Refill Encounter Details Date Type Department Care Team (Late st Contact Info) Description 04/10/2018 Refill [facility] [address] [facility] [address] [place] [phone] Franky Vazquez, DO [address] [facility], [address] [place], [place] [phone] Social History Tobacco Use Types Packs/Day Years [...] Office Visit [facility], A Department of [address] 101, 102, 103 [place] [phone] Trice Stinson MD [address] [place] [address] 101, 102, 103 [place] [address] 08/03/2025 9:30 AM EDT Procedure visit [facility] On [address] [place] [address] 08/07/2025 11:00 AM EDT Office Visit [facility] [address] [facility] [facility] 170 [place] [address] Isidro Woodall DO 2865 [address] [facility] 170 [place] [address] 08/07/2025 11:00 AM EDT Appointment [facility] Radiology [address] [place] [address] 08/09/2025 12:00 PM EDT Hospital Encounter [facility] Division of [facility] - Endoscopy [address] [facility] [place] [address] [place] [address] [place] [address], [address] [place] [address] 08/09/2025 12:00 PM EDT - 08/09/2025 12:30 PM EDT Surgery [facility] Division of [facility] - Endoscopy [address] [place] [address] Cliff Greenfield MD 5700 [facility], [address] [place] [address] ESOPHAGOGASTRODUODENOSCOPY DIAGNOSTIC [[id number] (CPT )] 08/21/2025 2:30 PM EDT Appointment [facility]iology [address] [place] [address] 08/22/2025 2:30 PM EDT Office Visit [facility] [address] [facility] 170 [place] [address] Isidro Woodall DO 2865 [address] [facility] 170 [place] [address] 08/23/2025 1:30 PM EDT Office Visit [facility] [address] [facility] 170 [place] [phone] Jesenia Peng, WATER RESOURCE AGENT-PARK GUIDE 2865 [facility], [address] [place] [address] 09/26/2025 1:30 PM EST Office Visit [facility], A Department of [address] [phone] Neli Clemente MD MPH [address] [place] [phone] 10/13/2025 11:45 AM EST Office Visit [facility] Cardiology [address] [place] [address] 202 [place] [phone] Duong Johnson, [address] [place] [address], 202 [place] [address] 10/13/2025 3:15 PM EST Office Visit [facility], A Department of [address] [place] [phone] Ines Uribe PA-C [address] [place] [address], [address] [place] [address] 11/14/2025 12:20 PM EST Office Visit [facility] [address] [facility] 170 [place] [phone] Ofelia Pierce V, WATER RESOURCE AGENT-PARK GUIDE [address] [facility] [place] [address] 11/21/2025 12:30 PM EST Appointment [facility] [place] [facility] [address] [place] [address] Scheduled Procedures Name Priority Associated [...] documented as of this encounter Care Teams Road Roller Operator Hot Mix Relationship Specialty Start Date End Date Jesenia Peng APRN-PARK GUIDE [address] [place] [address], [address] [place] [address] PCP - General 03/19/15 documented as of this encounter
--- OUTSIDE RECORDS SUMMARY | 2025-07-26 11:26 | XMS_ITS | Encounter Summary ---
Author Organization [employer] Address [facility]-[id number] [address] [place] [address] Care Team Providers Care Repairer Maintenance Building Name Role Phone Jesenia Peng INTERACTIVE DESIGNER-CLAIM AGENT Primary Care Provider Reason for Visit * Reason Comments Med Refill Encounter Details Date Type Department Care Team (Late st Contact Info) Description 11/27/2022 Refill [facility] Neurology [address] [place] [phone] Ty Branham MD [address] [place] [address], [facility] 101, 102, 103 [place], [place] [id number] Parkinson's disease ([facility]); Insomnia due to medical condition [...] Office Visit [facility], A Department of [address], 102, [address] [place] [address] Trice Stinson MD [address] [place] [address] 101, 102, [address] [place] [address] 08/03/2025 9:30 AM EDT Procedure visit [facility] On [address] [address] 08/07/2025 11:00 AM EDT Office Visit [facility] [address] [facility] 170 [place] [address] Isidro Woodall DO [address] [facility] 170 [place] [address] 08/07/2025 11:00 AM EDT Appointment [facility] Radiology [address] [place] [address] 08/09/2025 12:00 PM EDT Hospital Encounter [facility] - Endoscopy [address] [place] [address] Cliff Greenfield MD [address] [place] [address], [address] [place] [address] 08/09/2025 12:00 PM EDT - 08/09/2025 12:30 PM EDT Surgery [facility] - Endoscopy [address] [place] [address] [place] [address] [place] [address], [address] [place] [address] ESOPHAGOGASTRODUODENOSCOPY DIAGNOSTIC [[id number] (CPT )] 08/21/2025 2:30 PM EDT Appointment [facility] [address] [place] [address] 08/22/2025 2:30 PM EDT Office Visit [facility] [address] [facility] 170 [place] [address] Isidro Woodlal DO 2865 [facility] 170 [place] [address] 08/23/2025 1:30 PM EDT Office Visit [facility] [address] [facility] 170 [place] [address] Jesenia Peng, INTERACTIVE DESIGNER-CLAIM AGENT 28[address] [facility], [address] [place] [address] 09/26/2025 1:30 PM EST Office Visit [facility], A Department of [address] [phone] Neli Clemente MD MPH [address] [place] [phone] 10/13/2025 11:45 AM EST Office Visit [facility] Cardiology [address] [place] [phone] Duong Johnson DO [address] [place] [address], [address] [place] [address] 10/13/2025 3:15 PM EST Office Visit [facility], A Department of [address] [phone] Ines Uribe PA-C [address] [place] [address], [address] [address] 11/14/2025 12:20 PM EST Office Visit [facility] [address] [place] [phone] Ofelia Pierec V, INTERACTIVE DESIGNER-CLAIM AGENT [address] [place] [address] 11/21/2025 12:30 PM EST Appointment [facility] [place] - Mammography [address] [place] [phone] Scheduled Procedures Name Priority Associated Diagnoses Date/Ti [...] documented as of this encounter Care Teams Repairer Maintenance Building Relationship Specialty Start Date End Date Jesenia Peng, INTERACTIVE DESIGNER-CLAIM AGENT 28[address] [facility], [address] [place] [address] PCP - General 03/19/15 documented as of this encounter
--- OUTSIDE RECORDS SUMMARY | 2025-07-26 11:26 | XMS_ITS | Encounter Summary ---
Author Organization [facility] [employer] Address [facility][id number] [address] [place] [address] Care Team Providers Care Rn Documentation Name Role Phone Jesenia Peng CLERICAL WAREHOUSE WORKER-SUPPLY CHAIN BUYER Primary Care Provider Encounter Details Date Type Department Care Team (Late st Contact Info) Description 09/02/2022 Orders Only [facility] [address] [place] [phone] Anamaria Perkins CMA Encounter for screening mammogram [...] Office Visit [facility], A Department of [address] 101, 102, [address] [place] [address] Trice Stinson MD [address] [place] [address], [address] 101, 102, 103 [place] [address] 08/03/2025 9:30 AM EDT Procedure visit [facility] On [address] [address] 08/07/2025 11:00 AM EDT Office Visit [facility] [address] [facility] 170 [place] [address] Isidro Woodall DO [address] [facility] 170 [place] [address] 08/07/2025 11:00 AM EDT Appointment [facility] Rad[facility] [address] [place] [address] 08/09/2025 12:00 PM EDT Hospital Encounter [facility] - Endoscopy [address] [facility] [place] [address] [place] [address] [place] [address], [address] [place] [address] 08/09/2025 12:00 PM EDT - 08/09/2025 12:30 PM EDT Surgery [facility] - Endoscopy [address] [place] [address] [place] [address] [place] [address], [address] [facility] [place] [address] ESOPHAGOGASTRODUODENOSCOPY DIAGNOSTIC [[id number] (CPT )] 08/21/2025 2:30 PM EDT Appointment [facility] Radiology [address] [place] [address] 08/22/2025 2:30 PM EDT Office Visit [facility] [address] [facility] 170 [place] [address] Isidro Woodall, DO 2865 [facility] 170 [place] [address] 08/23/2025 1:30 PM EDT Office Visit [facility] [address] [facility] 170 [place] [phone] Jesenia Peng, CLERICAL WAREHOUSE WORKER-SUPPLY CHAIN BUYER 2865 [facility], [address] [place] [address] 09/26/2025 1:30 PM EST Office Visit [facility], A Department of [address] [phone] Neli Clemente MD MPH [address] [place] [phone] 10/13/2025 11:45 AM EST Office Visit [facility] Cardiology [address] [place] [address] 202 [place] [address] Duong Johnson, DO [address] [place] [address], 202 [place] [address] 10/13/2025 3:15 PM EST Office Visit [facility], A Department of [address] [phone] Ines Uribe PARaphaelC [address] [place] [address], 103 [place] [address] 11/14/2025 12:20 PM EST Office Visit [facility] [address] [place] [phone] Ofelia Pierce APRN-SUPPLY CHAIN BUYER [address] [place] [address] 11/21/2025 12:30 PM EST Appointment [facility] [place] - Mammography [address] [place] [phone] Scheduled Procedures Name Priority Associated Diagnoses Date/Ti [...] Modality Breast Bilateral Mammography 09/12/2021 Jesenia Peng APRN-SUPPLY CHAIN BUYER IMG MAMMOGRAPHY ORDERAB LES Final Result documented [...] documented as of this encounter Care Teams Rn Documentation Relationship Specialty Start Date End Date Jesenia Peng APRN-SUPPLY CHAIN BUYER [address] [facility], [address] [place] [address] PCP - General 03/19/15 documented as of this encounter
--- OUTSIDE RECORDS SUMMARY | 2025-07-26 11:26 | XMS_ITS | Encounter Summary ---
Author Organization [facility] [employer] tem Address [id number] [address] [place] [address] Care Team Providers Care Glass Cut Off Tender Name Role Phone Jesenia Peng PUBLIC RELATIONS SENIOR ASSOCIATE-MONEY COUNTER Primary Care Provider Reason for Visit * Reason Onset Date Comments pain score and dot phrase documentation 01/05/20 Encounter Details Date Type Department Care Team (Late st Contact Info) Description 01/05/2025 Telephone [facility] [address] [place] [phone] Paulette Owens CMA pain score and dot [...] physician Physical Therapy: daily hep and stretches Vice President Investor Relations: no Pain Management: new patient Prior Surgery: None Pain Score: 8/10 * Telephone Encounter - Peyton Van - 01/05/2025 8:52 AM EST Patient scheduled. documented in this encounter Plan of Treatment Upcoming Encounters Date Type Department Care Team (Latest Contact Info) Description 08/01/2025 2:00 PM EDT Office Visit [facility], A Department of [address], [address], [address] [place] [phone] Trice Stinson MD [address] [place] [address] 101, 102, 103 [place] [address] 08/03/2025 9:30 AM EDT Procedure visit [facility] On [address] [address] 08/07/2025 11:00 AM EDT Office Visit [facility] [address] [place] [address] Isidro Woodall DO [address] [facility] [address] [place] [address] 08/07/2025 11:00 AM EDT Appointment [facility] Radiology [address] [place] [address] 08/09/2025 12:00 PM EDT Hospital Encounter [facility] Division of [facility] - Endoscopy [address] [place] [address] Cliff Greenfield MD [address] [place] [address], [address] [place] [address] 08/09/2025 12:00 PM EDT - 08/09/2025 12:30 PM EDT Surgery [facility] Division of [facility] - Endoscopy [address] [place] [address] [place] [address] [place] [address], [address] [place] [address] ESOPHAGOGASTRODUODENOSCOPY DIAGNOSTIC [79426 (CPT )] 08/21/2025 2:30 PM EDT Appointment [facility] [address] [place] [address] 08/22/2025 2:30 PM EDT Office Visit [facility] [address] [facility] [address] [place] [address] Isidro Woodall DO [address] [facility] 170 [place] [address] 08/23/2025 1:30 PM EDT Office Visit [facility] [address] [facility] 170 [place] [phone] Jesenia Peng, PUBLIC RELATIONS SENIOR ASSOCIATE-MONEY COUNTER [address] [facility], [address] [place] [address] 09/26/2025 1:30 PM EST Office Visit [facility], A Department of [address] [phone] Neli Clemente MD MPH [address] [place] [phone] 10/13/2025 11:45 AM EST Office Visit [facility] Cardiology [address] [place] [phone] Duong Johnson, [address] [place] [address], [address] [place] [address] 10/13/2025 3:15 PM EST [facility], A Department of [address] [place] [phone] Ines Uribe PA-C [address] [place] [address], [address] [place] [address] 11/14/2025 12:20 PM EST Office Visit [facility] [address] [facility] [address] [place] [phone] Ofelia Pierce V, PUBLIC RELATIONS SENIOR ASSOCIATE-MONEY COUNTER [address] [facility] [place] [address] 11/21/2025 12:30 PM EST Appointment [facility] [place] [facility] [address] [place] [phone] Scheduled Procedures Name Priority Associated Diagnoses Date/Ti [...] documented as of this encounter Care Teams Glass Cut Off Tender Relationship Specialty Start Date End Date Jesenia Peng, PUBLIC RELATIONS SENIOR ASSOCIATE-MONEY COUNTER [address] [place] [address], [address] [place] [address] PCP - General 03/19/15 documented as of this encounter
--- OUTSIDE RECORDS SUMMARY | 2025-07-26 11:26 | XMS_ITS | Encounter Summary ---
Author Organization [employer] Address [facility] [place][id number] [address] [place] [address] Care Team Providers Care Pet Care Associate Name Role Phone Jesenia Peng STEEL WORKER-NEUROSCIENCE SPECIALIST Primary Care Provider Encounter Details Date Type Department Care Team (Late st Contact Info) Description 12/02/2022 Telephone [facility] [address] [place] [phone] Anamaria Perkins CMA Social History Tobacco Use [...] AM EST Albuterol sent to [facility] in [place] documented in this encounter Plan of Treatment Upcoming Encounters Date Type Department Care Team (Latest Contact Info) Description 08/01/2025 2:00 PM EDT Office Visit [facility], A Department of [address], [address], [address] [place] [phone] Trice Stinson MD [address] [place] [address] 101, 102, 103 [place] [address] 08/03/2025 9:30 AM EDT Procedure visit [facility] On [address] [address] 08/07/2025 11:00 AM EDT Office Visit [facility] [address] [address] Isidro Woodall DO [address] [facility] 170 [place] [address] 08/07/2025 11:00 AM EDT Appointment [facility] [address] [place] [address] 08/09/2025 12:00 PM EDT Hospital Encounter [facility] - Endoscopy [address] [place] [address] [place] [address] [place] [address], [address] [place] [address] 08/09/2025 12:00 PM EDT - 08/09/2025 12:30 PM EDT Surgery [facility] - Endoscopy [address] [facility] [place] [phone] Cliff Greenfield MD [address] [place] [address], [address] [place] [address] ESOPHAGOGASTRODUODENOSCOPY DIAGNOSTIC [[id number] (CPT )] 08/21/2025 2:30 PM EDT Appointment [facility] [address] [place] [address] 08/22/2025 2:30 PM EDT Office Visit [facility] [address] [facility] 170 [place] [address] Isidro Woodall, DO [address] [facility] 170 [place] [address] 08/23/2025 1:30 PM EDT Office Visit [facility] [address] [facility] 170 [place] [address] Jesenia Peng, STEEL WORKER-NEUROSCIENCE SPECIALIST [address] [facility], 170 [place] [address] 09/26/2025 1:30 PM EST [facility], A Department of [address] [phone] Neli Clemente MD MPH [address] [place] [phone] 10/13/2025 11:45 AM EST Office Visit [facility] [address] [facility] 202 [place] [address] Duong Johnson DO [address] [facility], [address] [place] [address] 10/13/2025 3:15 PM EST Office Visit [facility], A Department of [address] [place] [address] Ines Uribe PA-C [address] [facility], [address] [place] [address] 11/14/2025 12:20 PM EST Office Visit [facility] [address] [place] [address] Ofelia Pierce V, STEEL WORKER-NEUROSCIENCE SPECIALIST [address] [place] [address] 11/21/2025 12:30 PM EST Appointment [facility] [place] [facility] 1 [place] [address] Scheduled Procedures Name Priority Associated Diagnoses Date/Ti ky ESOPHAGOGASTRODUODENOSCOPY DIAGNOSTIC Esophageal dysphagia (R13.19) 08/09/2025 12:00 [...] documented as of this encounter Care Teams Pet Care Associate Relationship Specialty Start Date End Date Jesenia Peng APRN-JONEL [address] [place] [address], [address] [place] [address] PCP - General 03/19/15 documented as of this encounter
--- OUTSIDE RECORDS SUMMARY | 2025-07-26 11:26 | XMS_ITS | Encounter Summary ---
Author Organization [employer] Address [id number] [address] [place] [address] Care Team Providers Care Information Technology Specialist Name Role Phone Jesenia Peng SENIOR BIOSTATISTICIAN/GROUP LEADER-CASE HARDENER Primary Care Provider Encounter Details Date Type Department Care Team (Late st Contact Info) Description 01/16/2021 Telephone [facility] [address] [place] [phone] Anamaria Perkins CMA Social History Tobacco Use [...] Office Visit [facility], A Department of [address], [address], [address] [place] [address] Trice Stinson MD [address] [place] [address], [facility] 101, 102, 103 [place] [address] 08/03/2025 9:30 AM EDT Procedure visit [facility] On [address] [address] 08/07/2025 11:00 AM EDT Office Visit [facility] [address] [facility] [facility] 170 [place] [address] Isidro Woodall DO [address] [facility] 170 [place] [address] 08/07/2025 11:00 AM EDT Appointment [facility] [address] [place] [address] 08/09/2025 12:00 PM EDT Hospital Encounter [facility] - Endoscopy [address] [place] [address] [place] [address] [place] [address], [address] [facility] [address] 08/09/2025 12:00 PM EDT - 08/09/2025 12:30 PM EDT Surgery [facility] - Endoscopy [address] [place] [address] [place] [address] [place] [address], [address] [facility] [place] [address] ESOPHAGOGASTRODUODENOSCOPY DIAGNOSTIC [[id number] (CPT )] 08/21/2025 2:30 PM EDT Appointment [facility] [address] [place] [address] 08/22/2025 2:30 PM EDT Office Visit [facility] [address] [facility] 170 [place] [address] Isidro Woodall, DO [address] [facility] 170 [place] [address] 08/23/2025 1:30 PM EDT Office Visit [facility] [address] [facility] 170 [place] [address] Jesenia Peng, SENIOR BIOSTATISTICIAN/GROUP LEADER-CASE HARDENER [address] [facility], [address] [place] [address] 09/26/2025 1:30 PM EST Office Visit [facility], A Department of [address] [place] [address] Neli Clemente MD [address] [address] 10/13/2025 11:45 AM EST Office Visit [facility] Cardiology [address] [place] [address] 202 [place] [address] Duong Johnson DO [address] [facility], [address] [place] [address] 10/13/2025 3:15 PM EST Office Visit [facility], A Department of [address] [place] [address] Ines Uribe PA-C [address] [place] [address], [address] [place] [address] 11/14/2025 12:20 PM EST Office Visit [facility] [address] [place] [phone] Ofelia Pierce V SENIOR BIOSTATISTICIAN/GROUP LEADER-CASE HARDENER [address] [facility] [address] [place] [address] 11/21/2025 12:30 PM EST Appointment [facility] [place] [facility] [address] [place] [address] Scheduled Procedures Name Priority Associated Diagnoses Date/Ti [...] documented as of this encounter Care Teams Information Technology Specialist Relationship Specialty Start Date End Date Jesenia Peng, SENIOR BIOSTATISTICIAN/GROUP LEADER-CASE HARDENER [address] [facility], [address] [place] [address] PCP - General 03/19/15 documented as of this encounter
--- OUTSIDE RECORDS SUMMARY | 2025-07-26 11:26 | XMS_ITS | Encounter Summary ---
Author Organization [facility] tem Address [facility] [place]-[id number] [address] [place] [address] Care Team Providers Care Strainer Cleaner Name Role Phone Jesenia Peng MANAGER OF PROCUREMENT-ROUGH PLANER TENDER Primary Care Provider Encounter Details Date Type Department Care Team (Late st Contact Info) Description 02/19/2021 Orders Only [facility] [address] [facility] [address] [place] [address] Jacqueline Romero CMA Essential hypertension [...] Office Visit [facility], A Department of [facility] [address] [facility] 101, 102, [address] [place] [address] Trice Stinson MD [address] [facility] 101, 102, [address] [place] [address] 08/03/2025 9:30 AM EDT Procedure visit [facility] On [address] [address] 08/07/2025 11:00 AM EDT Office Visit [facility] [address] [facility] 170 [place] [address] Isidro Woodall DO [address] [facility] 170 [place] [address] 08/07/2025 11:00 AM EDT Appointment [facility] [address] [place] [address] 08/09/2025 12:00 PM EDT Hospital Encounter [facility] - Endoscopy [address] [place] [address] [place] [address] [place] [address], [address] [place] [address] 08/09/2025 12:00 PM EDT - 08/09/2025 12:[address] [facility] - Endoscopy [address] [place] [address] Cliff Greenfield MD [address] [place] [address], [address] [place] [address] ESOPHAGOGASTRODUODENOSCOPY DIAGNOSTIC [73271 (CPT )] 08/21/2025 2:30 PM EDT Appointment [facility] [address] [place] [address] 08/22/2025 2:30 PM EDT Office Visit [facility] [address] [facility] 170 [place] [address] Isidro Woodall, DO [address] [facility] 170 [place] [address] 08/23/2025 1:30 PM EDT Office Visit [facility] [address] [facility] 170 [place] [address] Jesenia Peng, MANAGER OF PROCUREMENT-ROUGH PLANER TENDER [address] [facility], [address] [place] [address] 09/26/2025 1:30 PM EST Office Visit [facility], A Department of [address] [phone] Neli Clemente MD MPH [address] [place] [phone] 10/13/2025 11:45 AM EST Office Visit [facility] Cardiology [address] [place] [phone] Duong Johnson, DO [address] [place] [address], [address] [place] [address] 10/13/2025 3:15 PM EST Office Visit [facility], A Department of [address] [phone] Ines Uribe PA-C [address] [place] [address], [address] [address] 11/14/2025 12:20 PM EST Office Visit [facility] [phone] Ofelia Pierce V, MANAGER OF PROCUREMENT-ROUGH PLANER TENDER [address] [place] [address] 11/21/2025 12:30 PM EST Appointment [facility] [place] - Mammography [address] [place] [address] Scheduled Procedures Name Priority Associated Diagnoses Date/Ti me ESOPHAGOGASTRODUODENOSCOPY DIAGNOSTIC Esophageal dysphagia (R13.19) 08/09/2025 12:00 PM EDT documented as of this encounter Results * [...] :42 AM EDT 07/02/2021 8:43 AM EDT Jesenia L Lent MANAGER OF PROCUREMENT-ROUGH PLANER TENDER URINE ORDERABLES Final Result [facility] * Lipid profile (07/02/2021 8:34 AM EDT) Cholesterol 183 150 - 200 mg/dL 07/02/2021 12:07 PM EDT [facility] Triglycerides 41 27 - 150 mg/dL 07/02/2021 12:07 PM EDT [facility] HDL Cholesterol 80 >39 mg/dL 12:07 PM EDT [facility] Comment: HDL <40 mg/dL - High Risk HDL > or = 40mg/dL- Desirable HDL >60 mg/dL - Negative Risk VLDL 8 0 - 30 mg/dL 07/02/2021 12:07 PM EDT [facility] LDL (calc) 95 <130 mg/dL 07/02/2021 12:07 PM EDT [facility] Comment: LDL <100 mg/dL - Desirable LDL >160 mg/dL - High Risk Cholesterol:HDL Ratio 2.3 1.0 - 5.0 07/02/2021 12:07 PM EDT [facility] Serum / Unknown 07/02/2021 8 :34 AM EDT 07/02/2021 8:37 AM EDT us Jesenia Zuñiga Danish MANAGER OF PROCUREMENT-ROUGH PLANER TENDER LAB BLOOD ORDERABLES Fi nal Result [facility] [address] [facility] [address] [place] [address] * (ABNORMAL) Comprehensive metabolic panel (07/02/2021 8:34 AM EDT) Sodium 138 134 - 146 mmol/L 07/02/2021 12:07 PM EDT [facility] Potassium, Bld 3.7 3.5 - 5.0 mmol/L 07/02/2021 12:07 PM EDT [facility] Chloride 98 98 - 109 mmol/L 07/02/2021 12:07 PM EDT [facility] CO2 32 22 - 32 mmol/L 07/02/2021 12:07 PM EDT [facility] Anion gap 8 5 - 15 mmol/L 07/02/2021 12:07 PM EDT [facility] BUN 25 5 - 27 mg/dL 07/02/2021 12:07 PM EDT [facility] Creatinine 0.71 0.40 - 1.00 mg/dL 07/02/2021 12:07 PM EDT [facility] Comment:METHOD TRACEABLE TO IDMS STANDARD Glucose 107(H) 65 - 99 mg/dL 07/02/2021 12:07 PM EDT [facility] Calcium 9.8 8.5 - 10.5 mg/dL 07/02/2021 12:07 PM EDT [facility] Total Protein 7.5 6.0 - 8.0 g/dL 07/02/2021 12:07 PM EDT [facility] Albumin 4.5 3.2 - 5.3 g/dL 07/02/2021 12:07 PM EDT [facility] Alkaline Phosphatase 86 39 - 130 U/L 07/02/2021 12:07 PM EDT [facility] AST 19 0 - 41 U/L 07/02/2021 12:07 PM EDT [facility] ALT 5 0 - 31 U/L 07/02/2021 12:07 PM EDT [facility] Total bilirubin 1.3(H) 0.3 - 1.2 mg/dL 07/02/2021 12:07 PM EDT [facility] GFR MDRD Non Af Amer >60 >59 ml/min/1.7 3sq.m 07/02/2021 12:07 PM EDT [facility] GFR MDRD Af Amer >60 >59 ml/min/1.7 3sq.m 07/02/2021 12:07 PM EDT [facility] Serum / Unknown 07/02/2021 8 :34 AM EDT 07/02/2021 8:37 AM EDT us Jesenia Peng MANAGER OF PROCUREMENT-ROUGH PLANER TENDER LAB BLOOD ORDERABLES Fi nal Result Performing Organization Address City/State/[facility] Co de Phone Number [facility] [address] [facility], [address] [place] [address] * CBC auto differential (07/02/2021 8:34 AM EDT) White Blood Cells 4.6 4.0 - 11.0 X10E9/L 07/02/2021 11:53 AM EDT [facility] RBC count 4.42 3.80 - 5.20 X10E12/L 07/02/2021 11:53 AM EDT [facility] Hemoglobin 13.5 11.7 - 15.5 g/dL 07/02/2021 11:53 AM EDT [facility] Hematocrit 39.6 35 - 47 % 07/02/2021 11:53 AM EDT [facility] MCV 90 80 - 100 fL 07/02/2021 11:53 AM EDT [facility] MCH 30.5 27 - 34 pg 07/02/2021 11:53 AM EDT [facility] MCHC 34.1 32 - 36 g/dL 07/02/2021 11:53 AM EDT [facility] RDW 14.0 11.5 - 15.0 % 07/02/2021 11:53 AM EDT [facility] Platelets 187 150 - 450 X10E9/L 07/02/2021 11:53 AM EDT [facility] MPV 9.6 7 - 12 fL 07/02/2021 11:53 AM EDT [facility] % neutrophils 49.5 % 07/02/2021 11:53 AM EDT [facility] % lymphocytes 32.0 % 07/02/2021 11:53 AM EDT [facility] % monocytes 9.2 % 07/02/2021 11:53 AM EDT [facility] % eosinophils 8.9 % 07/02/2021 11:53 AM EDT [facility] % Basophils 0.4 % 07/02/2021 11:53 AM EDT [facility] Neutrophils Absolute (A) 2.3 1.5 - 6.6 X10E9/L 07/02/2021 11:53 AM EDT [facility] Lymphocytes Absolute 1.5 1.0 - 3.5 X10E9/L 07/02/2021 11:53 AM EDT [facility] Monocytes Absolute 0.4 0 - 0.9 X10E9/L 07/02/2021 11:53 AM EDT [facility] Eosinophils Absolute 0.4 0.0 - 0.4 X10E9/L 07/02/2021 11:53 AM EDT [facility] Basophils Absolute 0.0 0.0 - 0.2 X10E9/L 07/02/2021 11:53 AM EDT [facility] Serum / Unknown 07/02/2021 8 :34 AM EDT 07/02/2021 8:37 AM EDT us Jesenia Truongt MANAGER OF PROCUREMENT-ROUGH PLANER TENDER LAB BLOOD ORDERABLES Fi nal Result [facility] [address] [place] [address] documented in this encounter Visit Diagnoses Diagnosis [...] documented as of this encounter Care Teams Strainer Cleaner Relationship Specialty Start Date End Date Jesenia Peng APRN-ROUGH PLANER TENDER [facility] [facility], [address] [place] [address] PCP - General 03/19/15 documented as of this encounter
--- OUTSIDE RECORDS SUMMARY | 2025-07-26 11:26 | XMS_ITS | Encounter Summary ---
Author Organization [facility] Sys tem Address [id number] [address] [place] [address] Care Team Providers Care Train Engineer Name Role Phone Jesenia Peng COMMISSIONER PUBLIC WORKS-TRUST MAIL CLERK Primary Care Provider Encounter Details Date Type Department Care Team (Late st Contact Info) Description 01/16/2021 Orders Only [facility] [address] [facility] [address] [place] [address] Jesenia Peng, COMMISSIONER PUBLIC WORKS-TRUST MAIL CLERK [address] [facility], [address] [place], [place] [phone] Diarrhea, unspecified type (Primary Dx) Social History [...] Office Visit [facility], A Department of [address] 101, [address], [address] [place] [phone] Trice Stinson MD [address] [place] [address] 101, 102, 103 [place] [address] 08/03/2025 9:30 AM EDT Procedure visit [facility] On [address] [address] 08/07/2025 11:00 AM EDT Office Visit [facility] [address] [address] Isirdo Woodall DO [address] [facility] 170 [place] [address] 08/07/2025 11:00 AM EDT Appointment [facility] Radiology [address] [place] [address] 08/09/2025 12:00 PM EDT Hospital Encounter [facility] - Endoscopy [address] [place] [place] [address] [place] [address] [place] [address], [address] [place] [address] 08/09/2025 12:00 PM EDT - 08/09/2025 12:30 PM EDT Surgery [facility] Endoscopy [address] [place] [address] [place] [address] [place] [address], [address] [place] [address] ESOPHAGOGASTRODUODENOSCOPY DIAGNOSTIC [96129 (CPT )] 08/21/2025 2:30 PM EDT Appointment [facility] [address] [place] [address] 08/22/2025 2:30 PM EDT Office Visit [facility] [address] [facility] 170 [place] [address] Isidro Woodall, DO [address] [facility] 170 [place] [address] 08/23/2025 1:30 PM EDT Office Visit [facility] [address] [facility] [address] [place] [address] Jesenia Peng, COMMISSIONER PUBLIC WORKS-TRUST MAIL CLERK [address] [facility], [address] [place] [address] 09/26/2025 1:30 PM EST Office Visit [facility], A Department of [address] [phone] Neli Clemente MD MPH [address] [place] [phone] 10/13/2025 11:45 AM EST Office Visit [facility] Cardiology [address] [place] [phone] Duong Johnson, DO [address] [place] [address], [address] [place] [address] 10/13/2025 3:15 PM EST Office Visit [facility], A Department of [address] [phone] Ines Uribe PA-C [address] [place] [address], [address] [place] [address] 11/14/2025 12:20 PM EST Office Visit [facility] [address] [place] [phone] Ofelia Pierce V, COMMISSIONER PUBLIC WORKS-TRUST MAIL CLERK [address] [place] [address] 11/21/2025 12:30 PM EST Appointment [facility] [place] [facility] [address] [place] [address] Scheduled Procedures Name Priority Associated [...] documented as of this encounter Care Teams Train Engineer Relationship Specialty Start Date End Date Jesenia Peng, COMMISSIONER PUBLIC WORKS-TRUST MAIL CLERK [address] [place] [address], [address] [place] [address] PCP - General 03/19/15 documented as of this encounter
--- OUTSIDE RECORDS SUMMARY | 2025-07-26 11:26 | XMS_ITS | Encounter Summary ---
Author Organization [facility] [employer] [facility] tem Address [id number] [address] [place] [address] Care Team Providers Care Fuel Efficient Automobile Designer Name Role Phone Jesenia Peng MARGARINE MAKER-DOCUMENTATION NURSE Primary Care Provider Reason for Visit * Reason Onset Date Comments Med Refill 10/14/2016 Encounter Details Date Type Department Care Team (Late st Contact Info) Description 10/14/2016 Refill [facility] [address] [place] [address] Valentine Ovalles RMA Social History [...] Description 08/01/2025 2:00 PM EDT Office Visit [facility], A Department of [address] 101, 102, [address] [place] [phone] Trice Stinson MD [address] [place] [address] 101, 102, [address] [place], [place] [phone] 08/03/2025 9:30 AM EDT Procedure visit [facility] On [address] [address] 08/07/2025 11:00 AM EDT Office Visit [facility] [address] [facility] [address] [place] [address] Isidro Woodall DO [address] [facility] [address] [place] [address] 08/07/2025 11:00 AM EDT Appointment [facility] [address] [place] [address] 08/09/2025 12:00 PM EDT Hospital Encounter [facility] - Endoscopy [address] [place] [address] [place] [address] [place] [address], [address] [place] [address] 08/09/2025 12:00 PM EDT - 08/09/2025 12:30 PM EDT Surgery [facility] [place] [facility] - Endoscopy [address] [place] [address] [place] [address] [place] [address], [address] [place] [address] ESOPHAGOGASTRODUODENOSCOPY DIAGNOSTIC [[id number] (CPT )] 08/21/2025 2:30 PM EDT Appointment [facility] [address] [place] [address] 08/22/2025 2:30 PM EDT Office Visit [facility] [address] [facility] [address] [place] [address] Isidro Woodall DO [address] [facility] [address] [place] [address] 08/23/2025 1:30 PM EDT Office Visit [facility] [address] [facility] [address] [place] [phone] Jesenia Peng, MARGARINE MAKER-DOCUMENTATION NURSE [address] [facility], [address] [place] [address] 09/26/2025 1:30 PM EST Office Visit [facility], A Department of [address] [place] [phone] Neli Clemente MD MPH [address] [place] [phone] 10/13/2025 11:45 AM EST Office Visit [facility] Cardiology [address] [place] [address] 202 [place] [address] Duogn Johnson, DO [address] [place] [address], [address] [place] [address] 10/13/2025 3:15 PM EST [facility], A Department of [address] [place] [phone] Ines Uribe, PA-C [address] [place] [address], [address] [place] [address] 11/14/2025 12:20 PM EST Office Visit [facility] [address] [facility] [address] [place] [phone] Ofelia Pierce V, MARGARINE MAKER-DOCUMENTATION NURSE [address] [facility] [address] [place] [address] 11/21/2025 12:30 PM EST Appointment [facility] [place] [facility] [place] [id number] [place] [address] Scheduled Procedures Name Priority Associated Diagnoses Date/Ti nc ESOPHAGOGASTRODUODENOSCOPY DIAGNOSTIC Esophageal dysphagia (R13.19) 08/09/2025 12:00 PM EDT documented as of this encounter Visit Diagnoses Not on filedocumented in this encounter Additional Health Concerns Infection Onset Date Last Indicated Resolved Time COVID-19 Rule-Out 06/27/2025 06/27/2025 06/27/2025 2:03 PM EDT documented as of this encounter Care Teams Fuel Efficient Automobile Designer Relationship Specialty Start Date End Date Jesenia Peng, MARGARINE MAKER-DOCUMENTATION NURSE [address] [facility], [address] [place] [address] PCP - General 03/19/15 documented as of this encounter
--- OUTSIDE RECORDS SUMMARY | 2025-07-26 11:26 | XMS_ITS | Encounter Summary ---
Author Organization [facility] Address [id number] [address] [place] [address] Care Team Providers Care Internet Marketing Analyst Name Role Phone Jesenia Peng APRN-FIBERGLASS FABRICATOR Primary Care Provider Reason for Visit * Reason Comments Med Refill Encounter Details Date Type Department Care Team (Late st Contact Info) Description 03/10/2020 Refill [facility] [address] [facility] [address] [place] [phone] [facility] [address] [facility], [address] [place] [address] Essential hypertension Social History Tobacco Use Types [...] Office Visit [facility], A Department of [address] 101, 102, [address] [place] [address] Trice Stinson MD [address] [place] [address] 101, 102, 103 [place] [address] 08/03/2025 9:30 AM EDT [facility] On [address] [address] 08/07/2025 11:00 AM EDT Office Visit [facility] [address] [facility] [address] [place] [address] Isidro Woodall DO [address] [address] 08/07/2025 11:00 AM EDT Appointment [facility] [address] [place] [address] 08/09/2025 12:00 PM EDT Hospital Encounter [facility] - Endoscopy [address] [place] [address] [place] [address] [place] [address], [address] [place] [address] 08/09/2025 12:00 PM EDT - 08/09/2025 12:30 PM EDT Surgery [facility] - Endoscopy [address] [place] [address] [place] [address] [place] [address], [address] [place] [address] ESOPHAGOGASTRODUODENOSCOPY DIAGNOSTIC [[id number] (CPT )] 08/21/2025 2:30 PM EDT Appointment [facility] [address] [place] [address] 08/22/2025 2:30 PM EDT Office Visit [facility] [address] [facility] [address] [place] [address] Isidro Woodall, DO [address] [facility] 170 [place] [address] 08/23/2025 1:30 PM EDT Office Visit [facility] [address] [facility] [address] [place] [address] Jesenia Peng, SUPERVISOR EXTRUDING DEPARTMENT-FIBERGLASS FABRICATOR [address] [facility], [address] [place] [address] 09/26/2025 1:30 PM EST Office Visit [facility], A Department of [address] [phone] Neli Clemente MD MPH [address] [place] [phone] 10/13/2025 11:45 AM EST Office Visit [facility] Cardiology [address] [place] [address] [address] [place] [phone] Duong Johnson, [address] [place] [address], [address] [place] [address] 10/13/2025 3:15 PM EST Office Visit [facility], A Department of [address] [phone] Ines Uribe PA-C [address] [place] [address], [address] [place] [address] 11/14/2025 12:20 PM EST Office Visit [facility] [address] [place] [phone] Ofelia Pierce V, SUPERVISOR EXTRUDING DEPARTMENT-FIBERGLASS FABRICATOR [address] [place] [address] 11/21/2025 12:30 PM EST Appointment [facility] M[facility] [address] [place] [phone] Scheduled Procedures Name Priority Associated Diagnoses Date/Ti [...] documented as of this encounter Care Teams Internet Marketing Analyst Relationship Specialty Start Date End Date Jesenia Peng, SUPERVISOR EXTRUDING DEPARTMENT-FIBERGLASS FABRICATOR [address] [facility], [address] [place] [address] PCP - General 03/19/15 documented as of this encounter
--- OUTSIDE RECORDS SUMMARY | 2025-07-26 11:26 | XMS_ITS | Clinical Summary ---
Author Organization [facility] Address [address] [facility], [address] [place] [address] Care Team Providers Care Strategic Procurement Manager Name Role Phone John Dominguez MD Primary Care Provider [phone] Allergies No known active allergies Medications rasagiline [...] lumbar spine and left hip on a Picreeligy system. COMPARISON: None. HISTORY: ORDERING SYSTEM PROVIDED HISTORY: Osteopenia after menopause Gender: F Age: 73 y/o FINDINGS: LUMBAR SPINE: L1, L3 BMD: 1.224 g/cm2 T-score: 0.4 Z-score: 2.8 LEFT TOTAL HIP: BMD: 0.911 g/cm2 T-score: -0.8 Z-score: 1.4 LEFT FEMORAL NECK: BMD: 0.834 g/cm2 T-score: -1.5 Z-score: 0.8 FRAX 10-YEAR PROBABILITY OF FRACTURE: 10-year fracture risk is performed using the [employer] FRAX calculator based on patient-reported risk factors. [...] lumbar spine and left hip on a Picreeligy system. COMPARISON: None. HISTORY: ORDERING SYSTEM PROVIDED [...] Template code: [id number] Jesenia Danish GARCIA - GEOTHERMAL HEAT PUMP MACHINIST IMG DEXA ORDERABLES Fin al Result * [...] to the patient regarding the results. The [employer] recommends annual mammograms for [...] implants. Benign-appearing calcifications are stable. Jesenia Peng PAGINATOR - GEOTHERMAL HEAT PUMP MACHINIST IM MAMMOGRAPHY ORDERAB LES Final Result from Last 3 Months or Most Recently Relevant to Health Maintenance Insurance [facility] Care Teams Strategic Procurement Manager Relationship Specialty Start Date End Date John Dominguez MD PCP - General 12/01/13
--- OUTSIDE RECORDS SUMMARY | 2025-07-26 11:26 | XMS_ITS | Encounter Summary ---
Author Organization [facility] Sys tem Address [id number][id number] [address] [place] [address] Care Team Providers Care Insurance Verification Rep Name Role Phone Jesenia Peng USED CAR LOT ATTENDANT-ENVIRONMENTAL SCIENCES PROFESSOR Primary Care Provider Encounter Details Date Type Department Care Team (Late st Contact Info) Description 12/02/2022 Orders Only [facility] [address] [facility] [address] [place] [address] Jesenia Peng, USED CAR LOT ATTENDANT-ENVIRONMENTAL SCIENCES PROFESSOR [address] [facility], [address] [place], [place] [phone] Wheezing (Primary Dx) Social History Tobacco Use [...] Office Visit [facility], A Department of [address] 101, [address], 103 [place] [phone] Trice Stinson MD [address] [place] [address] 101, 102, 103 [place] [address] 08/03/2025 9:30 AM EDT Procedure visit [facility] On [address] [address] 08/07/2025 11:00 AM EDT Office Visit [facility] [address] [address] Isidro Woodall DO [address] [address] 08/07/2025 11:00 AM EDT Appointment [facility] [address] [place] [address] 08/09/2025 12:00 PM EDT Hospital Encounter [facility] - Endoscopy [address] [place] [address] [place] [address] [place] [address], [address] [place] [address] 08/09/2025 12:00 PM EDT - 08/09/2025 12:30 PM EDT Surgery [facility] - Endoscopy [address] [place] [address] [place] [address] [place] [address], [address] [place] [address] ESOPHAGOGASTRODUODENOSCOPY DIAGNOSTIC [[id number] (CPT )] 08/21/2025 2:30 PM EDT Appointment [facility] [address] [place] [address] 08/22/2025 2:30 PM EDT Office Visit [facility] [address] [facility] 170 [place] [address] Isidro Woodall, DO [address] [facility] 170 [place] [address] 08/23/2025 1:30 PM EDT Office Visit [facility] [address] [facility] [address] [place] [address] Jesenia Peng, USED CAR LOT ATTENDANT-ENVIRONMENTAL SCIENCES PROFESSOR [address] [facility], [address] [place] [address] 09/26/2025 1:30 PM EST Office Visit [facility], A Department of [address] [phone] Neli Clemente MD MPH [address] [place] [phone] 10/13/2025 11:45 AM EST Office Visit [facility] Cardiology [address] [place] [phone] Duong Johnson, [address] [place] [address], [address] [place] [address] 10/13/2025 3:15 PM EST Office Visit [facility], A Department of [address] [phone] Ines Uribe PARaphaelC [address] [place], [place] [address] [address] 11/14/2025 12:20 PM EST Office Visit [facility] [address] [place] [phone] Ofelia Pierce V, USED CAR LOT ATTENDANT-ENVIRONMENTAL SCIENCES PROFESSOR [address] [place] [address] 11/21/2025 12:30 PM EST Appointment [facility] [place] - Mammography [address] [place] [address] Scheduled Procedures Name Priority Associated [...] documented as of this encounter Care Teams Insurance Verification Rep Relationship Specialty Start Date End Date Jesenia Peng, USED CAR LOT ATTENDANT-ENVIRONMENTAL SCIENCES PROFESSOR [address] [facility], [address] [place] [address] PCP - General 03/19/15 documented as of this encounter
--- OUTSIDE RECORDS SUMMARY | 2025-07-26 11:26 | XMS_ITS | Encounter Summary ---
Author Organization [facility] Address [facility]-[id number] [address] [place] [address] Care Team Providers Care Sample Body Builder Name Role Phone Jesenia Peng VICE PRESIDENT OF COMMUNICATIONS-SUPREME COURT JUDGE Primary Care Provider Reason for Visit * Reason Onset Date Comments Appointment 04/17/2021 Encounter Details Date Type Department Care Team (Late st Contact Info) Description 04/17/2021 Telephone [facility] Neu[facility] [address] [place] [phone] Padmaja Lindsay Appointment Social History Tobacco Use [...] asked to reschedule her appointment with MD Ji on May 27 for a Parkinsons follow [...] Description 08/01/2025 2:00 PM EDT Office Visit [facility], A Department of [address] 101, [address], [address] [place] [phone] Trice Stinson MD [address] [place] [address], [facility] 101, 102, 103 [place], [place] [phone] 08/03/2025 9:30 AM EDT [facility] On [address] [place] [place] [address] 08/07/2025 11:00 AM EDT Office Visit [facility] [address] [facility] [address] [place] [address] Isidro Woodall DO [address] [facility] [address] [place] [address] 08/07/2025 11:00 AM EDT Appointment [facility] [address] [place] [address] 08/09/2025 12:00 PM EDT Hospital Encounter [facility] - Endoscopy [address] [place] [address] Cliff Greenfield MD [address] [place] [address], [address] [place] [address] 08/09/2025 12:00 PM EDT - 08/09/2025 12:30 PM EDT Surgery [facility] - Endoscopy [address] [place] [address] Cliff Greenfield MD [address] [place] [address], [address] [place] [address] ESOPHAGOGASTRODUODENOSCOPY DIAGNOSTIC [[id number] (CPT )] 08/21/2025 2:30 PM EDT Appointment [facility] [address] [place] [address] 08/22/2025 2:30 PM EDT Office Visit [facility] [address] [facility] [address] [place] [address] Isidro Woodall DO [address] [facility] [address] [place] [address] 08/23/2025 1:30 PM EDT Office Visit [facility] [address] [facility] [address] [place] [phone] Jesenia Peng, VICE PRESIDENT OF COMMUNICATIONS-SUPREME COURT JUDGE [address] [facility], [address] [place] [address] 09/26/2025 1:30 PM EST Office Visit [facility], A Department of [address] [phone] Neli Clemente MD MPH [address] [place] [phone] 10/13/2025 11:45 AM EST Office Visit [facility] Cardiology [address] [place] [phone] Duong Johnson, DO [address] [place] [address], [address] [place] [address] 10/13/2025 3:15 PM EST Office Visit [facility], A Department of [address] [phone] Ines Uribe PA-C [address] [place] [address], [address] [place] [address] 11/14/2025 12:20 PM EST Office Visit [facility] [address] [facility] [address] [place] [phone] Ofelia Pierce V, VICE PRESIDENT OF COMMUNICATIONS-SUPREME COURT JUDGE [address] [facility] [place] [address] 11/21/2025 12:30 PM EST Appointment [facility] [place] - Mammography [address] [place] [address] Scheduled Procedures Name Priority Associated [...] documented as of this encounter Care Teams Sample Body Builder Relationship Specialty Start Date End Date Jesenia Peng APRN-SUPREME COURT JUDGE [address] [place] [address], [address] [place] [address] PCP - General 03/19/15 documented as of this encounter
--- OUTSIDE RECORDS SUMMARY | 2025-07-26 11:26 | XMS_ITS | Encounter Summary ---
Author Organization [facility] s tem Address [facility] [id number] [address] [place] [address] Care Team Providers Care Business Objects Consultant Name Role Phone Jesenia Peng COMMUNICATIONS MAINTAINER-PROCESS EQUIPMENT OPERATOR Primary Care Provider Reason for Visit * Reason Onset Date Comments Med Refill 11/19/2022 Encounter Details Date Type Department Care Team (Late st Contact Info) Description 11/19/2022 [facility] [address] [place] [address] Alix Loo CMA Social History Tobacco Use Types Packs/Day [...] Office Visit [facility], A Department of [facility] [address] [facility] 101, 102, [address] [place] [phone] Trice Stinson MD [address] [facility], [address] 101, 102, [address] [place] [address] 08/03/2025 9:30 AM EDT Procedure visit [facility] On [address] [address] 08/07/2025 11:00 AM EDT Office Visit [facility] Physical Medicine [facility] Rehabilitation [address] [facility] [address] [place] [address] Isidro Woodall DO [address] [facility] 170 [place] [address] 08/07/2025 11:00 AM EDT Appointment [facility] Radiology [address] [place] [address] 08/09/2025 12:00 PM EDT Hospital Encounter [facility] - Endoscopy [address] [facility] [place] [address] Cliff Greenfield MD [address] [place] [address], [address] [place] [address] 08/09/2025 12:00 PM EDT - 08/09/2025 12:30 PM EDT Surgery [facility] Endoscopy [address] [place] [address] [place] [address] [place] [address], [address] [place] [address] ESOPHAGOGASTRODUODENOSCOPY DIAGNOSTIC [33621 (CPT )] 08/21/2025 2:30 PM EDT Appointment [facility] [address] [place] [address] 08/22/2025 2:30 PM EDT Office Visit [facility] [address] [facility] [address] [place] [address] Isidro Woodall, DO [address] [facility] [address] [place] [address] 08/23/2025 1:30 PM EDT Office Visit [facility] [address] [facility] [address] [place] [address] Jesenia Peng, COMMUNICATIONS MAINTAINER-PROCESS EQUIPMENT OPERATOR [address] [facility], [address] [place] [address] 09/26/2025 1:30 PM EST Office Visit [facility], A Department of [address] [phone] Neli Clemente MD MPH [address] [place] [phone] 10/13/2025 11:45 AM EST Office Visit [facility] Cardiology [address] [place] [phone] Duong Johnson, [address] [place] [address], [address] [place] [address] 10/13/2025 3:15 PM EST [facility], A Department of [address] [phone] Ines Uribe PA-C [address] [place] [address], [address] [address] 11/14/2025 12:20 PM EST Office Visit [facility] [address] [phone] Ofelia Pierce V, COMMUNICATIONS MAINTAINER-PROCESS EQUIPMENT OPERATOR [address] [facility] [address] [place] [address] 11/21/2025 12:30 PM EST Appointment [facility] [place] - Mammography [address] [place] [phone] Scheduled Procedures Name Priority Associated Diagnoses Date/Ti [...] documented as of this encounter Care Teams Business Objects Consultant Relationship Specialty Start Date End Date Jesenia Peng COMMUNICATIONS MAINTAINER-PROCESS EQUIPMENT OPERATOR [facility] [facility], [address] [place] [address] PCP - General 03/19/15 documented as of this encounter
--- OUTSIDE RECORDS SUMMARY | 2025-07-26 11:26 | XMS_ITS | Encounter Summary ---
Author Organization [facility] Address [facility] [id number] [address] [place] [address] Care Team Providers Care Clerical Stock Inspector Name Role Phone Jesenia Peng EMERGENCY SERVICES PROFESSIONAL-TRUCK RAILROAD AND BUS MOTOR MECHANIC Primary Care Provider Encounter Details Date Type Department Care Team (Late st Contact Info) Description 01/16/2021 Orders Only [facility] [address] [place] [phone] Anamaria Perkins CMA Social History Tobacco Use [...] Office Visit [facility], A Department of [address], 102, [address] [place] [address] Trice Stinson MD [address] [place] [address] 101, 102, 103 [place] [address] 08/03/2025 9:30 AM EDT Procedure visit [facility] On [address] [address] 08/07/2025 11:00 AM EDT Office Visit [facility] [address] [facility] [address] [place] [address] Isidro Woodall DO [address] [facility] 170 [place] [address] 08/07/2025 11:00 AM EDT Appointment [facility] Rad[facility] [address] [place] [address] 08/09/2025 12:00 PM EDT Hospital Encounter [facility] Division of [facility] - Endoscopy [address] [facility] [place] [address] Cliff Greenfield MD [address] [place] [address], [address] [place] [address] 08/09/2025 12:00 PM EDT - 08/09/2025 12:30 PM EDT Surgery [facility] Division [facility] - Endoscopy [address] [place] [address] [place] [address] [place] [address], [address] [place] [address] ESOPHAGOGASTRODUODENOSCOPY DIAGNOSTIC [[id number] (CPT )] 08/21/2025 2:30 PM EDT Appointment [facility] [address] [place] [address] 08/22/2025 2:30 PM EDT Office Visit [facility] [address] [facility] [address] [place] [address] Isidro Woodall, DO 2865 [facility] 170 [place] [address] 08/23/2025 1:30 PM EDT Office Visit [facility] [address] [facility] [address] [place] [address] Jesenia Peng, EMERGENCY SERVICES PROFESSIONAL-TRUCK RAILROAD AND BUS MOTOR MECHANIC [address] [facility], [address] [place] [address] 09/26/2025 1:30 PM EST Office Visit [facility], A Department of [address] [phone] Neli Clemente MD MPH [address] [place] [address] 10/13/2025 11:45 AM EST Office Visit [facility] Cardiology [address] [place] [phone] Duong Johnson, [address] [place] [address], [address] [place] [address] 10/13/2025 3:15 PM EST Office Visit [facility], A Department of [address] [phone] Ines Uribe PA-C [address] [place] [address], [address] [place] [address] 11/14/2025 12:20 PM EST Office Visit [facility] [address] [place] [phone] Ofelia Pierce V, EMERGENCY SERVICES PROFESSIONAL-TRUCK RAILROAD AND BUS MOTOR MECHANIC [address] [place] [address] 11/21/2025 12:30 PM EST Appointment [facility] [place] - Mammography [address] [place] [address] Scheduled Procedures Name Priority Associated [...] documented as of this encounter Care Teams Clerical Stock Inspector Relationship Specialty Start Date End Date Jesenia Peng, EMERGENCY SERVICES PROFESSIONAL-TRUCK RAILROAD AND BUS MOTOR MECHANIC [address] [facility], [address] [place] [address] PCP - General 03/19/15 documented as of this encounter
--- OUTSIDE RECORDS SUMMARY | 2025-07-26 11:26 | XMS_ITS | Encounter Summary ---
Author Organization [facility] Sys tem Address [facility] [id number] [address] [place] [address] Care Team Providers Care Vp Organizational Development Name Role Phone Jesenia Peng ASSOCIATE PROFESSOR OF MATHEMATICS-ORAL AND MAXILLOFACIAL SURGERY Primary Care Provider Encounter Details Date Type Department Care Team (Late st Contact Info) Description 08/18/2024 Orders Only [facility] [address] [facility] [address] [place] [address] Jesenia Peng ASSOCIATE PROFESSOR OF MATHEMATICS-ORAL AND MAXILLOFACIAL SURGERY [address] [facility], [address] [place] [address] Social History Tobacco Use Types [...] Office Visit [facility], A Department of [address] 101, 102, [address] [place] [address] Trice Stinson MD [address] [place] [address] 101, 102, 103 [place] [address] 08/03/2025 9:30 AM EDT Procedure visit [facility] On [address] [address] 08/07/2025 11:00 AM EDT Office Visit [facility] [address] [facility] [address] [place] [address] Isidro Woodall DO [address] [facility] [address] [place] [address] 08/07/2025 11:00 AM EDT Appointment [facility] [address] [place] [address] 08/09/2025 12:00 PM EDT Hospital Encounter [facility] - Endoscopy [address] [place] [address] [place] [address] [place] [address], [address] [place] [address] 08/09/2025 12:00 PM EDT - 08/09/2025 12:30 PM EDT Surgery [facility] - Endoscopy [address] [place] [address] [place] [address] [place] [address], [address] [place] [address] ESOPHAGOGASTRODUODENOSCOPY DIAGNOSTIC [[id number] (CPT )] 08/21/2025 2:30 PM EDT Appointment [facility] [address] [place] [address] 08/22/2025 2:30 PM EDT Office Visit [facility] [address] [facility] 170 [place] [phone] Isidro Woodall, DO 2865 [facility] 170 [place] [address] 08/23/2025 1:30 PM EDT Office Visit [facility] [address] [facility] 170 [place] [address] Jesenia Peng, ASSOCIATE PROFESSOR OF MATHEMATICS-ORAL AND MAXILLOFACIAL SURGERY [address] [facility], [address] [place] [address] 09/26/2025 1:30 PM EST Office Visit [facility], A Department of [address] [phone] Neli Clemente MD MPH [address] [place] [phone] 10/13/2025 11:45 AM EST Office Visit [facility] Cardiology [address] [place] [phone] Duong Johnson, [address] [place] [address], [address] [place] [address] 10/13/2025 3:15 PM EST Office Visit [facility], A Department of [address] [phone] Ines Uribe PA-C 5700 [facility], [address] [place] [address] 11/14/2025 12:20 PM EST Office Visit [facility] [address] [place] [phone] Ofelia Pierce APRN-ORAL AND MAXILLOFACIAL SURGERY [address] [place] [address] 11/21/2025 12:30 PM EST Appointment [facility] [place] - Mammography [address] [place] [address] Scheduled Procedures Name Priority Associated [...] documented as of this encounter Care Teams Vp Organizational Development Relationship Specialty Start Date End Date Jesenia Peng APRN-ORAL AND MAXILLOFACIAL SURGERY [address] [facility], [address] [place] [address] PCP - General 03/19/15 documented as of this encounter
--- OUTSIDE RECORDS SUMMARY | 2025-07-26 11:26 | XMS_ITS | Encounter Summary ---
Author Organization [facility] [employer] [facility] Address [facility] [id number] [address] [place] [address] Care Team Providers Care Network Technical Analyst Name Role Phone Jesenia Peng REFERENCE AND INSTRUCTION LIBRARIAN-HEARING AID DISPENSER Primary Care Provider Reason for Visit * Reason Comments Med Refill Encounter Details Date Type Department Care Team (Late st Contact Info) Description 12/28/2024 Refill [facility] [address] [place] [phone] Evette Okeefe MD [address] [facility] 101, 102, [address] [place], [place] [phone] Restless leg syndrome Social History Tobacco Use [...] Description 08/01/2025 2:00 PM EDT Office Visit [facility] Neurology, Department of [address] 101, 102, 103 [place] [phone] Trice Stinson MD [address] [place] [address] 101, 102, 103 [place] [address] 08/03/2025 9:30 AM EDT [facility] On [address] [address] 08/07/2025 11:00 AM EDT Office Visit [facility] [address] [facility] 170 [place] [phone] Isidro Woodall DO [address] [facility] 170 [place] [address] 08/07/2025 11:00 AM EDT Appointment [facility] [address] [place] [address] 08/09/2025 12:00 PM EDT Hospital Encounter [facility] Division [facility] - Endoscopy [address] [place] [address] Cliff Greenfield MD [address] [facility], [address] [place] [address] 08/09/2025 12:00 PM EDT - 08/09/2025 12:30 PM EDT Surgery [facility] Division of [facility] - Endoscopy [address] [place] [address] Cliff Greenfield MD [address] [facility], [address] [place] [address] ESOPHAGOGASTRODUODENOSCOPY DIAGNOSTIC [[id number] (CPT )] 08/21/2025 2:30 PM EDT Appointment [facility] [address] [place] [address] 08/22/2025 2:30 PM EDT Office Visit [facility] [address] [facility] 170 [place] [phone] Isidro Woodall DO [address] [facility] 170 [place] [address] 08/23/2025 1:30 PM EDT Office Visit [facility] [address] [facility] [address] [place] [address] Jesenia Peng, REFERENCE AND INSTRUCTION LIBRARIAN-HEARING AID DISPENSER [address] [facility], [address] [place] [address] 09/26/2025 1:30 PM EST Office Visit [facility], A Department of [facility] [address] [place] [address] 202 [place] [address] Neli Clemente MD MPH 5700 [facility] 202 [place] [address] 10/13/2025 11:45 AM EST Office Visit [facility] Cardiology [address] [place] [address] 202 [place] [address] Duong Johnson, DO [address] [facility], [address] [place] [address] 10/13/2025 3:15 PM EST Office Visit [facility], A Department of [facility] 5700 [facility] 103 [place] [address] Ines Uribe PA-C 5700 [facility], [address] [place] [address] 11/14/2025 12:20 PM EST [facility] [address] [facility] [address] [place] [phone] Ofelia Pierce APRN-HEARING AID DISPENSER [address] [place] [address] 11/21/2025 12:30 PM EST Appointment [facility] [place] - Mammography [address] [place] [phone] Scheduled Procedures Name Priority Associated Diagnoses Date/Ti [...] documented as of this encounter Care Teams Network Technical Analyst Relationship Specialty Start Date End Date Jesenia Peng, REFERENCE AND INSTRUCTION LIBRARIAN-HEARING AID DISPENSER [address] [facility], [address] [place] [address] PCP - General 03/19/15 documented as of this encounter
--- OUTSIDE RECORDS SUMMARY | 2025-07-26 11:26 | XMS_ITS | Encounter Summary ---
Author Organization [facility] Sys tem Address [facility] [id number] [address] [place] [address] Care Team Providers Care Acoustic Engineer Name Role Phone Jesenia Peng PROJECT CONTROL OFFICER-STILL OPERATOR BRANDY Primary Care Provider Encounter Details Date Type Department Care Team (Late st Contact Info) Description 09/10/2022 Orders Only [facility] [address] [place] [phone] Jaja Sanabria MA Social History Tobacco Use [...] Office Visit [facility], A Department of [address], [address], [address] [place] [address] Trice Stinson MD [address] [place] [address] 101, 102, 103 [place] [address] 08/03/2025 9:30 AM EDT Procedure visit [facility] On [address] [address] 08/07/2025 11:00 AM EDT Office Visit [facility] [address] [facility] [address] [place] [address] Isidro Woodall DO [address] [facility] [address] [place] [address] 08/07/2025 11:00 AM EDT Appointment [facility] [address] [place] [address] 08/09/2025 12:00 PM EDT Hospital Encounter [facility] - Endoscopy [address] [facility] [place] [address] [place] [address] [place] [address], [address] [place] [address] 08/09/2025 12:00 PM EDT - 08/09/2025 12:30 PM EDT Surgery [facility] - Endoscopy [address] [place] [address] [place] [address] [place] [address], [address] [place] [address] ESOPHAGOGASTRODUODENOSCOPY DIAGNOSTIC [[id number] (CPT )] 08/21/2025 2:30 PM EDT Appointment [facility] [address] [place] [address] 08/22/2025 2:30 PM EDT Office Visit [facility] [address] [facility] [address] [place] [address] Isidro Woodall DO 2865 [facility] 170 [place] [address] 08/23/2025 1:30 PM EDT Office Visit [facility] [address] [facility] [address] [place] [address] Jesenia Peng, PROJECT CONTROL OFFICER-STILL OPERATOR BRANDY 28[address] [facility], [address] [place] [address] 09/26/2025 1:30 PM EST Office Visit [facility], A Department of [address] [phone] Neli Clemente MD MPH [address] [place] [phone] 10/13/2025 11:45 AM EST Office Visit [facility] Cardiology [address] [place] [phone] Duong Johnson DO [address] [place] [address], [address] [place] [address] 10/13/2025 3:15 PM EST Office Visit [facility], A Department of [address] [phone] Ines Uribe PA-C [address] [place] [address], [address] [place] [address] 11/14/2025 12:20 PM EST Office Visit [facility] [address] [place] [phone] Ofelia Pierce V, PROJECT CONTROL OFFICER-STILL OPERATOR BRANDY [address] [place] [address] 11/21/2025 12:30 PM EST Appointment [facility] [place] - Mammography [address] [place] [address] Scheduled Procedures Name Priority Associated [...] documented as of this encounter Care Teams Acoustic Engineer Relationship Specialty Start Date End Date Jesenia Peng, PROJECT CONTROL OFFICER-STILL OPERATOR BRANDY [address] [facility], [address] [place] [address] PCP - General 03/19/15 documented as of this encounter
--- OUTSIDE RECORDS SUMMARY | 2025-07-26 11:26 | XMS_ITS | Encounter Summary ---
Author Organization [facility] tem Address [facility]-[id number] [address] [place] [address] Care Team Providers Care Housecleaner Floor Name Role Phone Jesenia Peng PROJECT LEADER-GLASS BEVELLER Primary Care Provider Encounter Details Date Type Department Care Team (Late st Contact Info) Description 11/05/2022 Orders Only [facility] [address] [facility] [address] [place] [address] Jaja Sanabria MA Primary hypertension [...] Office Visit [facility], A Department of [facility] [address] [facility] [address], 102, [address] [place] [address] Trice Stinson MD [address] [facility], [address] 101, 102, 103 [place] [address] 08/03/2025 9:30 AM EDT Procedure visit [facility] On [address] [address] 08/07/2025 11:00 AM EDT Office Visit [facility] [address] [facility] [address] [place] [address] Isidro Woodall DO [address] [facility] 170 [place] [address] 08/07/2025 11:00 AM EDT Appointment [facility] Rad[facility] [address] [place] [address] 08/09/2025 12:00 PM EDT Hospital Encounter [facility] - Endoscopy [address] [facility] [address] [place] [address] [place] [address] [place] [address], [address] [place] [address] 08/09/2025 12:00 PM EDT - 08/09/2025 12:30 PM EDT Surgery [facility] - Endoscopy [address] [place] [address] Cliff Greenfield MD [address] [place] [address], [address] [place] [address] ESOPHAGOGASTRODUODENOSCOPY DIAGNOSTIC [06075 (CPT )] 08/21/2025 2:30 PM EDT Appointment [facility] [address] [place] [address] 08/22/2025 2:30 PM EDT Office Visit [facility] [address] [facility] [address] [place] [address] Isidro Woodall, DO [address] [facility] 170 [place] [address] 08/23/2025 1:30 PM EDT Office Visit [facility] [address] [facility] 170 [place] [address] Jesenia Peng, PROJECT LEADER-GLASS BEVELLER [address] [facility], [address] [place] [address] 09/26/2025 1:30 PM EST Office Visit [facility], A Department of [address] [phone] Neli Clemente MD MPH [address] [place] [phone] 10/13/2025 11:45 AM EST Office Visit [facility] Cardiology [address] [place] [phone] Duong Johnson, DO [address] [place] [address], [address] [place] [address] 10/13/2025 3:15 PM EST Office Visit [facility], A Department of [address] [phone] Ines Uribe PA-C [address] [place] [address], [address] [phone] 11/14/2025 12:20 PM EST Office Visit [facility] [address] [phone] Ofelia Pierce V, PROJECT LEADER-GLASS BEVELLER [address] [place] [address] 11/21/2025 12:30 PM EST Appointment [facility]ography [address] [place] [phone] Scheduled Procedures Name Priority Associated Diagnoses Date/Ti [...] encounter Results * Urinalysis (11/25/2022) 11/25/2022 Jesenia Peng PROJECT LEADER-GLASS BEVELLER URINE ORDERABLES Final Result Performing Organization Address City/[facility]/ZIP Co de Phone Number [facility] * Lipid profile (11/25/2022) External Cholesterol 250 <200 [facility] External Cholesterol:Hdl 3.0 <4.44 [facility] External Hdl Cholesterol 84 >39 [facility] External Ldl (Calc) 153 <100 [facility] External Triglycerides 63 <149 [facility] External Very Low Lipoprotein 13 <30 [facility] 11/25/2022 Jesenia Peng PROJECT LEADER-GLASS BEVELLER LAB BLOOD ORDERABLES Fi nal Result Performing Organization Address City/[facility]/ZIP Co de Phone Number [facility] * Comprehensive metabolic panel (11/25/2022) 11/25/2022 Jesenia Peng PROJECT LEADER-GLASS BEVELLER LAB BLOOD ORDERABLES Fi nal Result Performing Organization Address City/[facility]/ZIP Co de Phone Number [facility] * CBC auto differential (11/25/2022) 11/25/2022 Jesenia LAFLEUR LAB BLOOD ORDERABLES Fi [...] documented as of this encounter Care Teams Housecleaner Floor Relationship Specialty Start Date End Date Jesenia Peng APRN-CNP [address] [place] [address], [address] [place] [address] PCP - General 03/19/15 documented as of this encounter
--- OUTSIDE RECORDS SUMMARY | 2025-07-26 11:27 | XMS_ITS | Encounter Summary ---
Author Organization [facility] [employer] [facility] tem Address [id number] [address] [place] [address] Care Team Providers Care Instrument Calibrator Name Role Phone Jesenia Peng FONDANT MACHINE OPERATOR-MARKETING FORECASTER Primary Care Provider Encounter Details Date Type Department Care Team (Late st Contact Info) Description 09/14/2020 Orders Only [facility] [address] [facility] 170 [place] [phone] Ref Prov, [place] [address] Social History Tobacco Use Types Packs/Day Years [...] Office Visit [facility], A Department of [facility] [address] 101, 102, [address] [place] [address] Trice Stinson MD [address] [place] [address] 101, 102, [address] [place] [address] 08/03/2025 9:30 AM EDT Procedure visit [facility] On [address] [address] 08/07/2025 11:00 AM EDT Office Visit [facility] [address] [facility] 170 [place] [address] Isidro Woodall DO [address] [place] [address] 08/07/2025 11:00 AM EDT Appointment [facility] [address] [place] [address] 08/09/2025 12:00 PM EDT Hospital Encounter [facility] Division [facility] - Endoscopy [address] [facility] [place] [address] Cliff Greenfield MD [address] [place] [address], [address] [place] [address] 08/09/2025 12:00 PM EDT - 08/09/2025 12:30 PM EDT Surgery [facility] - Endoscopy [address] [place] [address] [place] [address] [place] [address], [address] [place] [address] ESOPHAGOGASTRODUODENOSCOPY DIAGNOSTIC [04279 (CPT )] 08/21/2025 2:30 PM EDT Appointment [facility] [address] [place] [address] 08/22/2025 2:30 PM EDT Office Visit [facility] [address] [facility] 170 [place] [address] Isidro Woodall, DO [address] [facility] 170 [place] [address] 08/23/2025 1:30 PM EDT Office Visit [facility] [address] [facility] 170 [place] [address] Jesenia Peng, FONDANT MACHINE OPERATOR-MARKETING FORECASTER [address] [facility], [address] [place] [address] 09/26/2025 1:30 PM EST Office Visit [facility], A Department of [address] [phone] Neli Clemente MD MPH [address] [place] [phone] 10/13/2025 11:45 AM EST Office Visit [facility] Cardiology [address] [place] [phone] Duong Johnson DO [address] [place] [address], [address] [place] [address] 10/13/2025 3:15 PM EST Office Visit [facility], A Department of [address] [phone] Ines Uribe PA-C [address] [place] [address], [address] [place] [address] 11/14/2025 12:20 PM EST Office Visit [facility] [address] [facility] 170 [place] [address] Ofelia Pierce V, FONDANT MACHINE OPERATOR-MARKETING FORECASTER [address] [facility] [address] [place] [address] 11/21/2025 12:30 PM EST Appointment [facility] [place] - Mammography [address] [place] [phone] Scheduled Procedures Name Priority Associated Diagnoses Date/Ti me ESOPHAGOGASTRODUODENOSCOPY DIAGNOSTIC Esophageal dysphagia (R13.19) 08/09/2025 12:00 PM EDT documented as of this encounter Procedures Procedure Name Priority Date/Time Associated Diagnosis Comments HM MAMMOGRAPHY Routine 09/11/2020 documented in this encounter [...] as of this encounter Care Teams Instrument Calibrator Relationship Specialty Start Date End Date Jesenia Peng, FONDANT MACHINE OPERATOR-MARKETING FORECASTER [address] [facility], [address] [place] [address] PCP - General 03/19/15 documented as of this encounter
--- OUTSIDE RECORDS SUMMARY | 2025-07-26 11:27 | XMS_ITS | Encounter Summary ---
Author Organization [facility] tem Address [facility]-[id number] [address] [place] [address] Care Team Providers Care Insulation Engineman Name Role Phone Jesenia Peng ASSEMBLER FLEXIBLE LEADS-LONG CHAIN DYEING MACHINE OPERATOR Primary Care Provider Encounter Details Date Type Department Care Team (Late st Contact Info) Description 12/21/2023 Orders Only [facility] [address] [facility] [address] [place] [address] Jesenia Peng ASSEMBLER FLEXIBLE LEADS-LONG CHAIN DYEING MACHINE OPERATOR [address] [facility], [address] [place] [address] Primary hypertension Social History Tobacco Use Types [...] Office Visit [facility], A Department of [address] 101, 102, 103 [place] [address] Trice Stinson MD [address] [place] [address] 101, 102, 103 [place] [address] 08/03/2025 9:30 AM EDT Procedure visit [facility] On [address] [address] 08/07/2025 11:00 AM EDT Office Visit [facility] [address] [facility] 170 [place] [address] Isidro Woodall DO [address] [place] [address] 08/07/2025 11:00 AM EDT Appointment [facility] [address] [place] [address] 08/09/2025 12:00 PM EDT Hospital Encounter [facility] - Endoscopy [address] [place] [address] [place] [address] [place] [address], [address] [place] [address] 08/09/2025 12:00 PM EDT - 08/09/2025 12:30 PM EDT Surgery [facility] - Endoscopy [address] [place] [address] [place] [address] [place] [address], [address] [place] [address] ESOPHAGOGASTRODUODENOSCOPY DIAGNOSTIC [87084 (CPT )] 08/21/2025 2:30 PM EDT Appointment [facility] [address] [place] [address] 08/22/2025 2:30 PM EDT Office Visit [facility] [address] [facility] 170 [place] [phone] Isidro Woodall DO [address] [facility] 170 [place] [address] 08/23/2025 1:30 PM EDT Office Visit [facility] [address] [facility] 170 [place] [phone] Jesenia Peng, ASSEMBLER FLEXIBLE LEADS-LONG CHAIN DYEING MACHINE OPERATOR [address] [facility], [address] [place] [address] 09/26/2025 1:30 PM EST Office Visit [facility], A Department of [address] [phone] Neli Clemente MD MPH [address] [place] [phone] 10/13/2025 11:45 AM EST Office Visit [facility] Cardiology [address] [place] [phone] Duong Johnson DO [address] [place] [address], [address] [place] [address] 10/13/2025 3:15 PM EST Office Visit [facility], A Department of [address] [phone] Ines Uribe PA-C [address] [facility], [address] [place] [address] 11/14/2025 12:20 PM EST Office Visit [facility] [address] [place] [phone] Ofelia Pierce APRN-LONG CHAIN DYEING MACHINE OPERATOR [address] [place] [address] 11/21/2025 12:30 PM EST Appointment [facility] [address] [place] [address] Scheduled Procedures Name Priority Associated [...] documented as of this encounter Care Teams Insulation Engineman Relationship Specialty Start Date End Date Jesenia Peng, ASSEMBLER FLEXIBLE LEADS-LONG CHAIN DYEING MACHINE OPERATOR [address] [facility], [address] [place] [address] PCP - General 03/19/15 documented as of this encounter
--- OUTSIDE RECORDS SUMMARY | 2025-07-26 11:27 | XMS_ITS | Encounter Summary ---
Author Organization [facility] tem Address [facility]-[id number] [address] [place] [address] Care Team Providers Care Brokerage Clerk Name Role Phone Jesenia Peng ACCOUNT ENGINEER-MARKETING TEACHER Primary Care Provider Encounter Details Date Type Department Care Team (Late st Contact Info) Description 08/29/2020 [facility]phone [facility] [address] [place] [phone] Anamaria Perkins CMA Social History Tobacco Use [...] an orthopedic doctor. Anamaria Perkins CMA 08/29/20 [phone] * Telephone Encounter - CIARRA Osei - 08/29/2020 4:19 PM EDT Referred to Dr. Adkins. documented in this encounter Plan of Treatment Upcoming Encounters Date Type Department Care Team (Latest Contact Info) Description 08/01/2025 2:00 PM EDT Office Visit [facility], Department of [address] 101, 102, 103 [place] [address] Trice Stinson MD [address] [place] [address] 101, 102, 103 [place] [address] 08/03/2025 9:30 AM EDT Procedure visit [facility] Pre-Admission Clinic On [address] [address] 08/07/2025 11:00 AM EDT Office Visit [facility] [address] [address] Isidro Woodall DO [address] [address] 08/07/2025 11:00 AM EDT Appointment [facility] [address] [place] [address] 08/09/2025 12:00 PM EDT Hospital Encounter [facility] Division of [facility] - Endoscopy [address] [place] [address] Cliff Greenfield MD [address] [facility], [address] [place] [address] 08/09/2025 12:00 PM EDT - 08/09/2025 12:30 PM EDT Surgery [facility] Division of [facility] - Endoscopy [address] [place] [address] Cliff Greenfield MD [address] [facility], [address] [place] [address] ESOPHAGOGASTRODUODENOSCOPY DIAGNOSTIC [41629 (CPT )] 08/21/2025 2:30 PM EDT Appointment [facility] [address] [place] [address] 08/22/2025 2:30 PM EDT Office Visit [facility] [address] [facility] [address] [place] [address] Isidro Woodall DO [address] [facility] 170 [place] [address] 08/23/2025 1:30 PM EDT Office Visit [facility] [address] [facility] [address] [place] [address] Jesenia Peng, ACCOUNT ENGINEER-MARKETING TEACHER [address] [facility], [address] [place] [address] 09/26/2025 1:30 PM EST Office Visit [facility], A Department of [address] [place] [address] Neli Clemente MD MPH [address] [place] [address] 202 [place] [address] 10/13/2025 11:45 AM EST Office Visit [facility] Cardiology [address] [place] [address] 202 [place] [phone] Duong Johnson, DO [address] [facility], [address] [place] [address] 10/13/2025 3:15 PM EST Office Visit [facility], A Department of [address] [place] [address] Ines Uribe PA-C [address] [place] [address], [address] [place] [address] 11/14/2025 12:20 PM EST Office Visit [facility] [address] [facility] 170 [place] [phone] Ofelia Pierce V, ACCOUNT ENGINEER-MARKETING TEACHER [address] [facility] [address] [place] [address] 11/21/2025 12:30 PM EST Appointment [facility] [place] - Mammography [address] [place] [address] Scheduled Procedures Name Priority Associated [...] documented as of this encounter Care Teams Brokerage Clerk Relationship Specialty Start Date End Date Jesenia Peng, ACCOUNT ENGINEER-MARKETING TEACHER [address] [facility], [address] [place] [address] PCP - General 03/19/15 documented as of this encounter
--- OUTSIDE RECORDS SUMMARY | 2025-07-26 11:27 | XMS_ITS | Encounter Summary ---
Author Organization [facility] [employer] tem Address [facility]-[id number] [address] [place] [address] Care Team Providers Care Group Home Manager Name Role Phone Jesenia Peng APRN-DEGREASER Primary Care Provider Reason for Visit * Reason Comments Med Refill Encounter Details Date Type Department Care Team (Late st Contact Info) Description 12/18/[address] [facility] [address] [facility] [address] [place] [phone] Jesenia [facility] [address] [facility], [address] [place], [place] [phone] Primary hypertension Social History Tobacco Use Types [...] Office Visit [facility], A Department of [address] 101, 102, [address] [place] [phone] Trice Stinson MD [address] [place] [address] 101, 102, 103 [place] [address] 08/03/2025 9:30 AM EDT Procedure visit [facility] On [address] [address] 08/07/2025 11:00 AM EDT Office Visit [facility] [address] [facility] 170 [place] [address] Isidro Woodall DO [address] [facility] 170 [place] [address] 08/07/2025 11:00 AM EDT Appointment [facility] [address] [place] [address] 08/09/2025 12:00 PM EDT Hospital Encounter [facility] - Endoscopy [address] [place] [address] [place] [address] [place] [address], [address] [place] [address] 08/09/2025 12:00 PM EDT - 08/09/2025 12:30 PM EDT Surgery [facility] - Endoscopy [address] [place] [address] Cliff Greenfield MD [address] [place] [address], [address] [place] [address] ESOPHAGOGASTRODUODENOSCOPY DIAGNOSTIC [[id number] (CPT )] 08/21/2025 2:30 PM EDT Appointment [facility] [address] [place] [address] 08/22/2025 2:30 PM EDT Office Visit [facility] [address] [facility] 170 [place] [phone] Isidro Woodall, 2865 [facility] 170 [place] [address] 08/23/2025 1:30 PM EDT Office Visit [facility] [address] [facility] 170 [place] [address] Jesenia Peng, FEED IN WORKER-DEGREASER [address] [place] [address], [address] [place] [address] 09/26/2025 1:30 PM EST Office Visit [facility], A Department of [address] [phone] Neli Clemente MD MPH [address] [place] [address] 10/13/2025 11:45 AM EST Office Visit [facility] Cardiology [address] [place] [phone] Duong Johnson DO [address] [place] [address], [address] [place] [address] 10/13/2025 3:15 PM EST Office Visit [facility], A Department of [address] [address] Ines Uribe PA-C 5700 [facility], [address] [facility] [place] [address] 11/14/2025 12:20 PM EST Office Visit [facility] [address] [place] [address] Ofelia Pierce V, FEED IN WORKER-DEGREASER [address] [facility] [address] [place] [address] 11/21/2025 12:30 PM EST Appointment [facility] [address] [place] [phone] Scheduled Procedures Name Priority Associated Diagnoses Date/Ti [...] documented as of this encounter Care Teams Group Home Manager Relationship Specialty Start Date End Date Jesenia Peng FEED IN WORKER-DEGREASER [address] [facility], [address] [place] [address] PCP - General 03/19/15 documented as of this encounter
--- OUTSIDE RECORDS SUMMARY | 2025-07-26 11:27 | XMS_ITS | Encounter Summary ---
Author Organization [employer] Sys tem Address [id number] [address] [place] [address] Care Team Providers Care Oleo Hasher And Renderer Name Role Phone Jesenia ePng INFORMATION SCIENTIST-TRANSFORMER ASSEMBLY SUPERVISOR Primary Care Provider Encounter Details Date Type Department Care Team (Late st Contact Info) Description 02/17/2022 Telephone [facility] [address] [place] [phone] Nadiya Higgins CMA Social History Tobacco Use [...] Office Visit [facility], A Department of [address] 101, [address], 103 [place] [address] Trice Stinson MD [address] [place] [address] 101, 102, 103 [place] [address] 08/03/2025 9:30 AM EDT Procedure visit [facility] On [address] [address] 08/07/2025 11:00 AM EDT Office Visit [facility] [address] [address] Isidro Woodall DO [address] [address] 08/07/2025 11:00 AM EDT Appointment [facility] Radiology [address] [place] [address] 08/09/2025 12:00 PM EDT Hospital Encounter [facility] Division of [facility] - Endoscopy [address] [place] [address] [place] [address] [place] [address], [address] [place] [address] 08/09/2025 12:00 PM EDT - 08/09/2025 12:[address] [facility] Division of [facility] - Endoscopy [address] [place] [address] [place] [address] [place] [address], [address] [place] [address] ESOPHAGOGASTRODUODENOSCOPY DIAGNOSTIC [07103 (CPT )] 08/21/2025 2:30 PM EDT Appointment [facility] [address] [place] [address] 08/22/2025 2:30 PM EDT Office Visit [facility] [address] [facility] 170 [place] [address] Isidro Woodall, DO [address] [address] 08/23/2025 1:30 PM EDT Office Visit [facility] [address] [phone] Jesenia Peng, INFORMATION SCIENTIST-TRANSFORMER ASSEMBLY SUPERVISOR [address] [facility], [address] [place] [address] 09/26/2025 1:30 PM EST Office Visit [facility], A Department of [address] [address] Neli Clemente MD MPH [address] [place] [address] 10/13/2025 11:45 AM EST Office Visit [facility] Cardiology [address] [place] [address] 202 [place] [address] Duong Johnson, DO 10[address] [facility], [address] [place] [address] 10/13/2025 3:15 PM EST Office Visit [facility], A Department of [facility] [address] [place] [address] 103 [place] [address] Ines Uribe PA-C 5700 [facility], [address] [place] [address] 11/14/2025 12:20 PM EST Office Visit [facility] [address] [place] [address] Ofelia Pierce V, INFORMATION SCIENTIST-TRANSFORMER ASSEMBLY SUPERVISOR [address] [place] [address] 11/21/2025 12:30 PM EST Appointment [facility] [place] [facility] [address] [place] [address] Scheduled Procedures Name Priority Associated [...] documented as of this encounter Care Teams Oleo Hasher And Renderer Relationship Specialty Start Date End Date Jesenia Peng, INFORMATION SCIENTIST-TRANSFORMER ASSEMBLY SUPERVISOR [facility], [address] [place] [address] PCP - General 03/19/15 documented as of this encounter
--- OUTSIDE RECORDS SUMMARY | 2025-07-26 11:27 | XMS_ITS | Encounter Summary ---
Author Organization [employer] [facility] tem Address [id number] [address] [place] [address] Care Team Providers Care Assembler Insulator Name Role Phone Jesenia Peng APRN-JONEL Primary Care Provider Reason for Referral * Consultation (Routine) - Closed Specialty Diagnoses / Procedures Referred By Madeline giles Referred To Contact Otolaryngology Diagnoses Oral lesion Jesenia Peng APRN-CNP [address] [facility], [address] [place] [address] Phone: tel: fax: [place] [address] [place] [address], [address] [place] [address] Phone: tel: fax: Referral ID Status Reason Start Date Expiration Date V isits Requested Visits Authorized [id number] Closed Specialty Services Required 11/11/2021 11/11/2022 1 1 Encounter Details Date Type Department Care Team (Late st Contact Info) Description 11/11/2021 Orders Only [facility] [address] [place] [phone] Jesenia Peng APRN-CNP [address] [facility], [address] [place], [place] [id number] Oral lesion (Primary Dx) Social History Tobacco [...] Visit [facility], A Department of [address], [address], [address] [place] [phone] Trice Stinson MD [address] [place] [address] 101, 102, 103 [place] [address] 08/03/2025 9:30 AM EDT Procedure visit [facility] On [address] [address] 08/07/2025 11:00 AM EDT Office Visit [facility] [address] [address] Isidro Woodall DO [address] [address] 08/07/2025 11:00 AM EDT Appointment [facility]iology [address] [place] [address] 08/09/2025 12:00 PM EDT Hospital Encounter [facility] Division of [facility] - Endoscopy [address] [place] [address] [place] [address] [place] [address], [address] [place] [address] 08/09/2025 12:00 PM EDT - 08/09/2025 12:30 PM EDT Surgery [facility] Division of [facility] - Endoscopy [address] [facility] [place] [address] Cliff Greenfield MD [address] [place] [address], [address] [place] [address] ESOPHAGOGASTRODUODENOSCOPY DIAGNOSTIC [[id number] (CPT )] 08/21/2025 2:30 PM EDT Appointment [facility] [address] [place] [address] 08/22/2025 2:30 PM EDT Office Visit [facility] [address] [facility] 170 [place] [address] Isidro Woodall, DO 28[address] N [facility] 170 [place] [address] 08/23/2025 1:30 PM EDT Office Visit [facility] [address] [facility] 170 [place] [address] Jesenia Peng, MILLER APPRENTICE-PRODUCTION QUALITY MANAGER [address] [facility], [address] [place] [address] 09/26/2025 1:30 PM EST Office Visit [facility], A Department of [address] [address] [place] [address] [place] [address] 10/13/2025 11:45 AM EST Office Visit [facility] Cardiology [address] [place] [address] 202 [place] [address] Duong Johnson DO [address] [facility], [address] [place] [address] 10/13/2025 3:15 PM EST [facility], A Department of [address] [place] [address] Ines Uribe PA-C 5700 [facility], [address] [place] [address] 11/14/2025 12:20 PM EST Office Visit [facility] [address] [place] [phone] Ofelia Pierce V, MILLER APPRENTICE-PRODUCTION QUALITY MANAGER [address] [place] [address] 11/21/2025 12:30 PM EST Appointment [facility] [place] [facility] [address] [place] [address] Scheduled Procedures Name Priority Associated Diagnoses Date/Ti me ESOPHAGOGASTRODUODENOSCOPY DIAGNOSTIC Esophageal dysphagia (R13.19) 08/09/2025 12:00 PM EDT Scheduled Referrals Name Type Priority Associated Diagnoses Order Schedule [facility] [place] Outpatient Referral Routine Oral lesion 1 [...] documented as of this encounter Care Teams Assembler Insulator Relationship Specialty Start Date End Date Jesenia Peng APRN-JONEL [address] [place] [address], [address] [place] [address] PCP - General 03/19/15 documented as of this encounter
--- OUTSIDE RECORDS SUMMARY | 2025-07-26 11:27 | XMS_ITS | Encounter Summary ---
Author Organization [facility] Sys tem Address [facility] [id number] [address] [place] [address] Care Team Providers Care Resistance Brazer Name Role Phone Jesenia Peng MEASUREMENT PSYCHOLOGIST-MEAT STUFFER Primary Care Provider Encounter Details Date Type Department Care Team (Late st Contact Info) Description 11/23/2023 Orders Only [facility] [address] [facility] [address] [place] [address] Jesenia Peng MEASUREMENT PSYCHOLOGIST-MEAT STUFFER 2865 [facility], [address] [place] [address] Health care maintenance (Primary Dx) [...] Office Visit [facility], A Department of [address] 101, [address], [address] [place] [address] Trice Stinson MD [address] [place] [address] 101, 102, 103 [place] [address] 08/03/2025 9:30 AM EDT Procedure visit [facility] On [address] [address] 08/07/2025 11:00 AM EDT Office Visit [facility] [address] [facility] 170 [place] [address] Isidro Woodall DO [address] [facility] 170 [place] [address] 08/07/2025 11:00 AM EDT Appointment [facility] [address] [place] [address] 08/09/2025 12:00 PM EDT Hospital Encounter [facility] [place] - Endoscopy [address] [place] [address] Cliff Greenfield MD [address] [place] [place] [address], [address] [place] [address] 08/09/2025 12:00 PM EDT - 08/09/2025 12:30 PM EDT Surgery [facility] [place] - Endoscopy [address] [place] [address] Cliff Greenfield MD [address] [place] [place] [address], [address] [place] [address] ESOPHAGOGASTRODUODENOSCOPY DIAGNOSTIC [71508 (CPT )] 08/21/2025 2:30 PM EDT Appointment [facility] [address] [place] [address] 08/22/2025 2:30 PM EDT Office Visit [facility] [address] [facility] 170 [place] [address] Isidro Woodall, 2865 [facility] 170 [place] [address] 08/23/2025 1:30 PM EDT Office Visit [facility] [address] [phone] Jesenia Peng, MEASUREMENT PSYCHOLOGIST-MEAT STUFFER [address] [place], [place] [address] [place] [address] 09/26/2025 1:30 PM EST Office Visit [facility], A Department of [address] [phone] Neli Clemente MD MPH [address] [place] [address] 10/13/2025 11:45 AM EST Office Visit [facility] Cardiology [address] [place] [phone] Duong Johnson, [address] [place] [address] 10/13/2025 3:15 PM EST Office Visit [facility], A Department of [address] [phone] Ines Uribe, MAGAN 5700 [facility], [address] [place] [address] 11/14/2025 12:20 PM EST Office Visit [facility] [address] [place] [address] Ofelia Pierce V, MEASUREMENT PSYCHOLOGIST-MEAT STUFFER [address] [place] [address] 11/21/2025 12:30 PM EST Appointment [facility] [place] [facility] Mammography [address] [place] [address] Scheduled Procedures Name Priority Associated Diagnoses [...] None Seen, Occasional /LPF SUNQUEST 01/26/2024 Jesenia LAFLEUR URINE ORDERABLES Final Result Performing Organization Address [facility] de Phone Number SUNQUEST * Lipid profile (01/26/2024) External Cholesterol 173 <200 [employer] External Cholesterol:Hdl 2.9 <4.44 [employer] External Hdl Cholesterol 60 >39 [employer] External Ldl (Calc) 100 <100 [employer] External Triglycerides 66 <149 [employer] External Very Low Lipoprotein 13 <30 [facility] Ldl/Hdl Ratio 1.7 <3.2 SUN[facility] 01/26/2024 Jesenia LAFLEUR LAB BLOOD ORDERABLES Fi nal Result Performing Organization Address [facility] de Phone Number SUNQUEST * (ABNORMAL) Comprehensive metabolic panel (01/26/2024) External Co2 / Carbon Dioxide 33(A) 19 - 31 SUNQUEST 01/26/2024 Jesenia LAFLEUR LAB BLOOD ORDERABLES Fi nal Result Performing Organization Address [facility] de Phone Number SUNQUEST * CBC auto differential (01/26/2024) 01/26/2024 Jesenia LAFLEUR LAB BLOOD ORDERABLES Fi nal Result Performing Organization Address [facility] de Phone Number [employer] documented in this encounter Visit Diagnoses Diagnosis [...] documented as of this encounter Care Teams Resistance Brazer Relationship Specialty Start Date End Date Jesenia Peng APRN-CNP [address] [facility], [address] [place] [address] PCP - General 03/19/15 documented as of this encounter
--- OUTSIDE RECORDS SUMMARY | 2025-07-26 11:27 | XMS_ITS | Encounter Summary ---
Author Organization [employer] [facility] tem Address [id number] [address] [place] [address] Care Team Providers Care Securities Attorney Name Role Phone Jesenia Peng Primary Care Provider Reason for Referral * Misc (Routine) - Closed Specialty Diagnoses / Procedures Referred By Madeline t Referred To Contact Diagnoses Chronic obstructive pulmonary disease, unspecified COPD type (CMS-HCC) Parkinson's disease ([facility]-HCC) Procedures Disability/Handicap Jesenia Thompson APRN-CNP [address] [place] [address], [address] [place] [address] Phone: tel: fax: Referral ID Status Reason Start Date Expiration Date Visits Re quested Visits Authorized [id number] Closed 01/28/2022 01/28/2023 1 1 Encounter Details Date Type Department Care Team (Late st Contact Info) Description 01/28/2022 Orders Only [facility] [address] [place] [address] [address] [place] [address] Anamaria Perkins CMA Chronic obstructive pulmonary disease, unspecified COPD type ([facility]-HCC) (Primary Dx); Parkinson's disease Social History [...] Office Visit [facility], A Department of [address] 101, 102, 103 [place] [phone] Trice Stinson MD [address] [place] [address] 101, 102, 103 [place] [address] 08/03/2025 9:30 AM EDT Procedure visit [facility] On [address] [address] 08/07/2025 11:00 AM EDT Office Visit [facility] [address] [address] Isidro Woodall DO [address] [facility] 170 [place] [address] 08/07/2025 11:00 AM EDT Appointment [facility] [address] [place] [address] 08/09/2025 12:00 PM EDT Hospital Encounter [facility] Division [facility] - Endoscopy [address] [place] [address] [place] [address] [place] [address], [address] [place] [address] 08/09/2025 12:00 PM EDT - 08/09/2025 12:30 PM EDT Surgery [facility] Division of [facility] - Endoscopy [address] [facility] [place] [address] [place] [address] [place] [address], [address] [facility] [place] [address] ESOPHAGOGASTRODUODENOSCOPY DIAGNOSTIC [[id number] (CPT )] 08/21/2025 2:30 PM EDT Appointment [facility] [address] [place] [address] 08/22/2025 2:30 PM EDT Office Visit [facility] [address] [facility] 170 [place] [address] Isidro Woodall, DO [address] N [facility] 170 [place] [address] 08/23/2025 1:30 PM EDT Office Visit [facility] [address] [facility] 170 [place] [address] Jesenia Peng, APPLE THINNER-TRANSITION ADVISOR [address] [facility], [address] [place] [address] 09/26/2025 1:30 PM EST Office Visit [facility], A Department of [address] [address] [place] MPH [address] [place] [address] 10/13/2025 11:45 AM EST Office Visit [facility] Cardiology [address] [facility] 202 [place] [address] Duong Johnson DO 1037 [facility], [address] [place] [address] 10/13/2025 3:15 PM EST Office Visit [facility], A Department of [address] [place] [address] Ines Uribe PA-C 5700 [facility], [address] [place] [address] 11/14/2025 12:20 PM EST Office Visit [facility] [address] [place] [address] Ofelia Pierce V, APPLE THINNER-TRANSITION ADVISOR [address] [place] [address] 11/21/2025 12:30 PM EST Appointment [facility] [place] - Mammography [address] [place] [address] Scheduled Procedures Name Priority Associated Diagnoses Date/Ti [...] unspecified COPD type (CMS-HCC)- Primary Parkinson's disease ([facility]-H[facility]) documented in this encounter Additional Health Concerns Infection Onset Date Last Indicated Resolved Time COVID-19 Rule-Out 06/27/2025 06/27/2025 06/27/2025 2:03 PM EDT Assessment Noted Time PHQ-9 Depression Total Score: 0 01/29/20 22 1:11 PM EDT A Body Mass Index follow-up plan has been documented for the patient 08/09/2020 7:22 AM EDT documented as of this encounter Care Teams Securities Attorney Relationship Specialty Start Date End Date Jesenia Peng APRN-JONEL [address] [place] [address], [address] [place] [address] PCP - General 03/19/15 documented as of this encounter
--- OUTSIDE RECORDS SUMMARY | 2025-07-26 11:27 | XMS_ITS | Encounter Summary ---
Author Organization [facility] [employer] Sys tem Address [facility] [id number] [address] [place] [address] Care Team Providers Care Health Technical Writer Name Role Phone Jesenia Peng OPEN CLAIMS REPRESENTATIVE-NPS Primary Care Provider Encounter Details Date Type Department Care Team (Late st Contact Info) Description 07/22/2023 Orders Only [facility] Neurology [address] [place] [phone] Uriel Conrad CNA Social History Tobacco Use [...] Office Visit [facility], A Department of [address], [address], [address] [place] [address] Trice Stinson MD [address] [place] [address], [address], [address], [address] [place] [address] 08/03/2025 9:30 AM EDT Procedure visit [facility] On [address] [address] 08/07/2025 11:00 AM EDT Office Visit [facility] [address] [facility] [address] [place] [address] Isidro Woodall DO [address] [facility] 170 [place] [address] 08/07/2025 11:00 AM EDT Appointment [facility] Rad[facility] [address] [place] [address] 08/09/2025 12:00 PM EDT Hospital Encounter [facility] - Endoscopy [address] [place] [address] [place] [address] [place] [address], [address] [place] [address] 08/09/2025 12:00 PM EDT - 08/09/2025 12:30 PM EDT Surgery [facility] - Endoscopy [address] [place] [address] Cliff Greenfield MD 5700 [facility], [address] [facility] [place] [address] ESOPHAGOGASTRODUODENOSCOPY DIAGNOSTIC [[id number] (CPT )] 08/21/2025 2:30 PM EDT Appointment [facility] [address] [place] [address] 08/22/2025 2:30 PM EDT Office Visit [facility] [address] [facility] 170 [place] [address] Isidro Woodall, DO 2865 [facility] 170 [place] [address] 08/23/2025 1:30 PM EDT Office Visit [facility] [address] [facility] 170 [place] [address] Jesenia Peng, OPEN CLAIMS REPRESENTATIVE-NPS [address] [facility], [address] [place] [address] 09/26/2025 1:30 PM EST Office Visit [facility], A Department of [address] [phone] Neli Clemente MD MPH [address] [place] [address] 10/13/2025 11:45 AM EST Office Visit [facility] Cardiology [address] [place] [phone] Duong Johnson, DO [address] [place] [address], [address] [place] [address] 10/13/2025 3:15 PM EST Office Visit [facility], A Department of [address] [phone] Ines Uribe PA-C [address] [place] [address], [address] [address] 11/14/2025 12:20 PM EST Office Visit [facility] [address] [place] [phone] Ofelia Pierce APRN-NPS [address] [facility] [address] [place] [address] 11/21/2025 12:30 PM EST Appointment [facility] [place] - Mammography [address] [place] [address] Scheduled Procedures Name Priority Associated Diagnoses Date/Ti [...] Time PHQ-9 Depression Total Score: 0 07/22/20 23 11:43 AM EDT A Body Mass Index follow-up plan has been documented for the patient 07/22/2023 4:28 PM EDT documented as of this encounter Care Teams Health Technical Writer Relationship Specialty Start Date End Date Jesenia Peng, RADHA-NPS [facility], [address] [place] [address] PCP - General 03/19/15 documented as of this encounter
--- OUTSIDE RECORDS SUMMARY | 2025-07-26 11:27 | XMS_ITS | Encounter Summary ---
Author Organization [employer] Address [facility] [place] [place]-[id number] [address] [place] [address] Care Team Providers Care Commercial Lines Manager Name Role Phone Jesenia Peng DIAMOND SORTER-WET END HELPER Primary Care Provider Reason for Visit * Reason Comments Med Refill Encounter Details Date Type Department Care Team (Late st Contact Info) Description 05/17/2023 Refill [facility] [address] [place] [phone] Ty Branham MD [address] [place] [address], [facility] [address], [address], [address] [place], [place] [id number] Parkinson's disease ([facility]); Insomnia due to medical condition Social History [...] Office Visit [facility], A Department of [address] [place] [address], [address], [address] [place] [phone] Trice Stinson MD [address] [place] [address] 101, 102, [address] [place] [address] 08/03/2025 9:30 AM EDT Procedure visit [facility] On [address] [phone] 08/07/2025 11:00 AM EDT Office Visit [facility] [address] [facility] [address] [place] [address] Isidro Woodall DO [address] [facility] [address] [place] [address] 08/07/2025 11:00 AM EDT Appointment [facility] [address] [place] [address] 08/09/2025 12:00 PM EDT Hospital Encounter [facility]oscopy [address] [place] [phone] Cliff Greenfield MD [address] [place] [address], [address] [place] [address] 08/09/2025 12:00 PM EDT - 08/09/2025 12:30 PM EDT Surgery [facility] - Endoscopy [address] [place] [phone] [place] [address] [place] [address], [address] [place] [address] [facility]AGOGASTRODU[facility]COPY DIAGNOSTIC [14969 (CPT )] 08/21/2025 2:30 PM EDT Appointment [facility] [address] [place] [address] 08/22/2025 2:30 PM EDT Office Visit [facility] [address] [facility] [address] [place] [address] Isidro Woodall DO [address] [facility] [address] [place] [address] 08/23/2025 1:30 PM EDT Office Visit [facility] [address] [facility] [address] [place] [address] Jesenia Peng, DIAMOND SORTER-WET END HELPER [address] [facility], [address] [place] [address] 09/26/2025 1:30 PM EST Office Visit [facility], A Department of [address] [phone] Neli Clemente MD MPH [address] [place] [phone] 10/13/2025 11:45 AM EST Office Visit [facility] [address] [place] [phone] Duong Johnson DO [address] [place] [address], [address] [place] [address] 10/13/2025 3:15 PM EST Office Visit [facility], A Department of [address] [phone] Ines Uribe PA-C [address] [place] [address], [address] [address] 11/14/2025 12:20 PM EST Office Visit [facility] [address] [place] [address] [place] [phone] Ofelia Pierce V, DIAMOND SORTER-WET END HELPER [address] [place] [address] 11/21/2025 12:30 PM EST Appointment [facility] [place] - Mammography [address] [place] [phone] Scheduled Procedures Name Priority Associated Diagnoses Date/Ti [...] documented as of this encounter Care Teams Commercial Lines Manager Relationship Specialty Start Date End Date Jesenia Peng, DIAMOND SORTER-WET END HELPER [address] [facility], [address] [place] [address] PCP - General 03/19/15 documented as of this encounter
--- OUTSIDE RECORDS SUMMARY | 2025-07-26 11:27 | XMS_ITS | Encounter Summary ---
Author Organization [facility] Address [id number] [address] [place] [address] Care Team Providers Care Meringuer Name Role Phone Jesenia Peng CROP PICKER-AIRPLANE TUBE BUILDER Primary Care Provider Reason for Visit * Reason Comments Med Refill Encounter Details Date Type Department Care Team (Late st Contact Info) Description 01/31/2025 Refill [facility] Rhe[facility]ology [address] [place] [phone] Neli Clemente MD MPH [address] [place] [phone] Neck pain; Muscle tension pain Social [...] Office Visit [facility], A Department of [address], [address], [address] [place] [phone] Trice Stinson MD [address] [place] [address] 101, [address], [address] [place] [address] 08/03/2025 9:30 AM EDT Procedure visit [facility] On [address] [phone] 08/07/2025 11:00 AM EDT Office Visit [facility] [address] [facility] [address] [place] [phone] Isidro Woodall DO [address] [facility] [address] [place] [address] 08/07/2025 11:00 AM EDT Appointment [facility] [address] [place] [address] 08/09/2025 12:00 PM EDT Hospital Encounter [facility] - Endoscopy [address] [place] [phone] Cliff Greenfield MD [address] [facility], [address] [place] [address] 08/09/2025 12:00 PM EDT - 08/09/2025 12:30 PM EDT Surgery [facility] - Endoscopy [address] [address] Cliff Greenfield MD [address] [place] [address], [address] [place] [address] ESOPHAGOGASTRODUODENOSCOPY DIAGNOSTIC [16534 (CPT )] 08/21/2025 2:30 PM EDT Appointment [facility] [address] [place] [address] 08/22/2025 2:30 PM EDT Office Visit [facility] [address] [facility] [address] [place] [phone] Isidro Woodall, DO [address] [facility] [address] [place] [address] 08/23/2025 1:30 PM EDT Office Visit [facility] [address] [facility] [address] [place] [phone] Jesenia Peng, CROP PICKER-AIRPLANE TUBE BUILDER [address] [facility], [address] [place] [address] 09/26/2025 1:30 PM EST Office Visit [facility], A Department of [address] [phone] Neli Clemente MD MPH [address] [place] [phone] 10/13/2025 11:45 AM EST Office Visit [facility] [address] [place] [phone] Duong Johnson, DO [address] [place] [address], [address] [place] [address] 10/13/2025 3:15 PM EST Office Visit [facility], A Department of [address] [place] [address] Ines Uribe PA-C [address] [facility], [address] [place] [address] 11/14/2025 12:20 PM EST Office Visit [facility] [address] [facility] [place] [place] [phone] Ofelia Pierce V CROP PICKER-AIRPLANE TUBE BUILDER [address] [facility] [address] [place] [address] 11/21/2025 12:30 PM EST Appointment [facility] [place] - Mammography [address] [place] [phone] Scheduled Procedures Name Priority Associated Diagnoses Date/Ti [...] documented as of this encounter Care Teams Meringuer Relationship Specialty Start Date End Date Jesenia Peng, CROP PICKER-AIRPLANE TUBE BUILDER [address] [facility], [address] [place] [address] PCP - General 03/19/15 documented as of this encounter
--- OUTSIDE RECORDS SUMMARY | 2025-07-26 11:27 | XMS_ITS | CCD ---
Author Organization [facility] CliniSyhi Care Team Providers Care Dip Unit Operator Name Role Phone JOE JOHNSON Referring Unavailable [...] Care Unavailable JOE JOHNSON Referring Unavailable Lent MACHINE SWEEPER BRUSH MAKER-WIRE DRAWER, Brenden L Primary Care Provider Mi Dominguez MD Primary Care Provider [phone] LENT, BRENDEN L Referring Unavailable LENT, BRENDEN L Primary Care Unavailable Lent MACHINE SWEEPER BRUSH MAKER-WIRE DRAWER, Brenden L Primary Care Provider LENT, BRENDEN [...] BRENDEN L Primary Care Unavailable MI DOMINGUEZ J Referring Unavailable LENT, BRENDEN L Primary [...] Care Unavailable COLLEEN RUSSELL Attending Unavailable LENT, BRENDEN L Referring Unavailable LENT, BRENDEN L Primary Care Unavailable Allergies Allergy Classification Reported Allergen(s) Allergy Type Date of Onset Reaction(s) Facility (20 sources) Iodinated Contrast Media; Translations: [IODINATED CONTRAST MEDIA] Propensity to adverse reactions to drug 12-24-2018 Itching [facility] Medications Current Medications Medication Drug Class(es) Dates Sig (Normalized) Sig (Original) [id number] 200 actuat albuterol 0.09 mg/actuat metered dose [...] (SYMMETREL) 100 mg tablet Indications: Parkinson's disease ([facility]) Take 1-2 tablets by mouth at 6am [...] , Malnutrition, unspecified type , Parkinson's disease ([facility]) Infuse 1,000 mL into a venous catheter [...] Parkinson's disease with dyskinesia and fluctuating manifestations ([facility]) Take 2 tabs 6am, 1 tab 1130am, [...] (VIBRA-TABS) 100 mg tablet Indications: COPD exacerbation ([facility]) Take 1 tablet (100 mg total) [...] Tabitha Garcia MD on 07/13/2025 1:31 PM [facility] XR Chest PA and Lateralon [...] Tabitha Garcia MD on 07/13/2025 1:31 PM [facility] Tabitha aGrcia MD - 07/13/2025 History: Cough. Wheezing. History [...] Tabitha Garcia MD on 07/13/2025 1:31 PM [facility] Radiology Study observation (narrative) [employer] XR Chest PA and LateralOrder ed By: Tabitha Garcia on 07-13-2025 [employer] Work Phone: [place] SWALLOW MOTILITY FUNCTION on [...] details and recommendations. Finalized by José Miguel Hernandze MD on 06/28/2025 3:51 PM Normal [facility] PORTABLE INFLUENZA A/INFLUEN ZA Bon 06-27-2025 INFLUENZA A Negative Normal Negative [facility] Comment on above: Order Comment: The I D NOW Influenza A and B2 assay performed on the [employer] instrument is a rapid molecular invitro diagnostic test utilizing an ???isothermal nucleic acid amplification technology for the qualitative detection and discrimination of Influenza A and B viral RNA in direct nasopharyngeal swabs from patients with signs and symptoms of respiratory infection and epidemiological risk factors Performed By: #### C BCA, 1986-, [employer], LIVR, 59941-9, 64614-5, ENAP, 37886-9, AHP #### [facility] ([id number]) [address], [address] [place] [address] INFLUENZA B Negative Normal Negative [facility] Comment on above: Order Comment: The I D NOW Influenza A and B2 assay performed on the [employer] instrument is a rapid molecular invitro diagnostic test utilizing an ???isothermal nucleic acid amplification technology for the qualitative detection and discrimination of Influenza A and B viral RNA in direct nasopharyngeal swabs from patients with signs and symptoms of respiratory infection and epidemiological risk factors Performed By: #### C BCA, 1986-5, [employer], LIVR, 92233-6, 46775-7, ENAP, 54728-5, P #### [facility] ([id number]) [address] [place] [address] SARS COV 2 BY NAAT/MOLECULAR (POCT FSED)on 06-27-2025 SARS-CoV-2 (COVID-19) RNA ALIX+probe Ql (Unsp spec) Negative Normal Presumptive Negative [facility] Comment on above: Order Comment: NOTE - ID NOW COVID-19 assay performed on the [employer] instrument is a rapid molecular invitro diagnostic [...] COVID-19 test is intended for use by resident medical officer or trained operators who are proficient in performing tests using the [employer] instrument.The ID NOW COVID-19 test is only for use under the Food and Drug Administration's Emergency Use Authorization.Fact Sheet for Healthcare Providers:https://www.fda.gov/media/517895/downloadFact Sheet for Patients:https://www.fda.gov/media/966356/download Performed By: #### C BCA, 1987-03, [employer], LIVR, 86271-0, 22042-2, ENAP, 11641-0, AHP #### [facility] ([id number]) [address], [address] [place] [address] XR CHEST 2 VWSon 06-27-2025 XR CHEST 2 VWS XR CHEST 2 VWS And lateral chest: HISTORY: Cough. 2 views the chest are obtained. Cardiac and mediastinal contours are within normal limits. Lungs are clear. There is no vascular congestion, effusion, or pneumothorax. Osseous structures appear intact. Changes of COPD noted. IMPRESSION: COPD. Finalized by Enrico Mayfield MD on 06/27/2025 2:00 PM Normal [facility] XR SPINE LUMBAR 2 OR 3 VWSon 06-24-2025 XR SPINE LUMBAR 2 OR 3 VWS XR SPINE LUMBAR 2 OR 3 VWS XR SPINE LUMBAR 2 OR 3 VWS Clinical history:Inflammatory polyarthritis (CMS-HCC); Seronegative rheumatoid arthritis ([facility]); Primary osteoarthritis involving multiple joints; Chronic bilateral low back pain without sciatica Comparison: 04/13/2023 Impression: Multilevel degenerative disc disease with disc loss and endplate degenerative changes throughout the lumbar spine most pronounced at L4-L5 and L5-S1. Multilevel facet hypertrophy. No vertebral body height loss. No evidence of acute osseous abnormalities. Finalized by Ashok Kramer MD on 06/24/2025 6:36 AM Normal [facility] BASIC METABOLIC PANELon 07-3 Anion gap [Moles/Vol] 9 mmol/L Normal 5-15 [facility] Comment on above: Performed By: #### C BCA, 1987-03, [employer], LIVR, 01753-9, 24673-2, ENAP, 96785-8, AHP #### [facility] ([id number]) [address], [address] [place] [address] Calcium [Mass/Vol] 9.8 mg/dL Normal 8.5-10.5 [facility] Comment on above: Performed By: #### C BCA, 1987-03, [employer], LIVR, 44414-2, 12257-1, ENAP, 70753-6, AHP #### [facility] ([id number]) [address], [address] [place] [address] Chloride [Moles/Vol] 100 mmol/L Normal 98-109 [facility] Comment on above: Performed By: #### C BCA, 1987-03, [employer], LIVR, 57305-5, 29934-1, ENAP, 46373-1, AHP #### [facility] ([id number]) [address], [address] [place] [address] CO2 [Moles/Vol] 32 mmol/L Normal 22-32 [facility] Comment on above: Performed By: #### C BCA, 1987-03, [employer], LIVR, 89560-3, 57224-8, ENAP, 24904-2, AHP #### [facility] ([id number]) [address], [address] [place] [address] Creatinine [Mass/Vol] 0.60 mg/dL Normal 0.40-1.00 [facility] Comment on above: Result Comment: METH OD TRACEABLE TO IDMS STANDARD Performed By: #### C BCA, 1987-03, [employer], LIVR, 71865-2, 67932-2, ENAP, 79097-3, AHP #### [facility] ([id number]) [address], [address] [place] [address] EGFR (CKD-EPI) NON-RACE DEPENDENT >^90 Normal >=60 [facility] Comment on above: Result Comment: Repo rted eGFR is based on the CKD-EPI 2020 equation that does not use a race coefficient. Performed By: #### C BCA, 1987-03, [employer], LIVR, 16200-4, 76851-6, ENAP, 94596-7, AHP #### [facility] ([id number]) [address], [address] [place] [address] Glucose [Mass/Vol] 88 mg/dL Normal 65-99 [facility] Comment on above: Performed By: #### C BCA, 1987-03, [employer], LIVR, 33044-1, 02405-7, ENAP, 65501-7, AHP #### [facility] ([id number]) [address], [address] [place] [address] Potassium [Moles/Vol] 4.9 mmol/L Normal 3.5-5.0 [facility] Comment on above: Performed By: #### C BCA, 1987-03, [employer], LIVR, 82336-8, 87037-4, ENAP, 85349-1, AHP #### [facility] ([id number]) [address], [address] [place] [address] Sodium [Moles/Vol] 141 mmol/L Normal 134-146 [facility] Comment on above: Performed By: #### C BCA, 1987-03, [employer], LIVR, 06871-3, 06087-9, ENAP, 84641-6, AHP #### [facility] ([id number]) [address], [address] [place] [address] Urea nitrogen [Mass/Vol] 20 mg/dL Normal 5-27 [facility] Comment on above: Performed By: #### C BCA, 1987-03, [employer], LIVR, 45397-3, 02585-2, ENAP, 27540-7, AHP #### [facility] ([id number]) [address], [address] [place] [address] C-REACTIVE PROTEINon 025 CRP [Mass/Vol] mg/L Normal <=0.7 [facility] Comment on above: Performed By: #### C BCA, 1987-03, [employer], LIVR, 10782-5, 63995-2, ENAP, 43806-7, AHP #### [facility] ([id number]) [address], [address] [place] [address] CBC WITH AUTO DIFFERENTIALon 06-08-2025 BASOPHILS ABSOLUTE COUNT (10*3/UL) BY AUTOMATED COUNT 0.0 10*3/uL Normal 0.0-0.2 [facility] Comment on above: Performed By: #### C SUSIE, 1987-03, [employer], LIVR, 42223-1, 73188-7, ENAP, 98446-1, AHP #### [facility] ([id number]) [address], [address] [place] [address] BASOPHILS RELATIVE PERCENT BY AUTOMATED COUNT 0.4 % Normal [facility] Comment on above: Performed By: #### Nicolás RICHARDS, 1987-03, [employer], LIVR, 18423-0, 19781-2, ENAP, 62145-5, AHP #### [facility] ([id number]) [address], [address] [place] [address] CELLAVISION DIFFERENTIAL TYPE AUTOMATED DIFFERENTIAL Normal [facility] Comment on above: Performed By: #### C SUSIE, 1987-03, [employer], LIVR, 20308-4, 67526-0, ENAP, 06520-3, AHP #### [facility] ([id number]) [address], [address] [place] [address] Eosinophils (Bld) [#/Vol] 0.5 10*3/uL High 0.0-0.4 [facility] Comment on above: Performed By: #### C SUSIE, 1987-03, [employer], LIVR, 62704-2, 33644-6, ENAP, 44510-8, AHP #### [facility] ([id number]) [address], [address] [place] [address] EOSINOPHILS RELATIVE PERCENT BY AUTOMATED COUNT 7.7 % Normal [facility] Comment on above: Performed By: #### Nicolás RICHARDS, 1987-03, [employer], LIVR, 13033-7, 68965-2, ENAP, 94098-4, AHP #### [facility] ([id number]) [address] [place] [address] Erythrocyte distribution width (RBC) [Ratio] 15.8 % High 11.5-15 [facility] Comment on above: Performed By: #### C SUSIE, 1987-03, [employer], LIVR, 64371-1, 10198-7, ENAP, 59623-4, AHP #### [facility] ([id number]) [address] [place] [address] Hematocrit (Bld) [Volume fraction] 39.0 % Normal 35-47 [facility] Comment on above: Performed By: #### C SUSIE, 1987-03, [employer], LIVR, 60325-2, 35157-1, ENAP, 82293-3, AHP #### [facility] ([id number]) [address] [address] Hemoglobin (Bld) [Mass/Vol] 12.7 g/dL Normal 11.7-15.5 [facility] Comment on above: Performed By: #### C SUSIE, 1987-03, [employer], LIVR, 76115-7, 23442-3, ENAP, 74154-6, AHP #### [facility] ([id number]) [address] [address] LYMPHOCYTES ABSOLUTE COUNT (10*3/UL) BY AUTOMATED COUNT 1.0 10*3/uL Normal 1.0-3.5 [facility] Comment on above: Performed By: #### C SUSIE, 1987-03, [employer], LIVR, 04964-1, 76342-3, ENAP, 41391-7, AHP #### [facility] ([id number]) [address] [place] [address] LYMPHOCYTES RELATIVE PERCENT BY AUTOMATED COUNT 16.8 % Normal [facility] Comment on above: Performed By: #### C BCA, 1987-03, [employer], LIVR, 72362-5, 82084-7, ENAP, 67130-1, AHP #### [facility] ([id number]) [address], [address] [place] [address] MCH (RBC) [Entitic mass] 30.1 pg Normal 27-34 [facility] Comment on above: Performed By: #### C SUSIE, 1987-03, [employer], LIVR, 30493-9, 15897-9, ENAP, 72392-2, AHP #### [facility] ([id number]) [address], [facility] [address] [place] [address] MCHC (RBC) [Mass/Vol] 32.4 g/dL Normal 32-36 [facility] Comment on above: Performed By: #### C SUSIE, 1987-03, [employer], LIVR, 36905-9, 79449-0, ENAP, 05027-2, AHP #### [facility] ([id number]) [address], [address] [place] [address] MCV (RBC) [Entitic vol] 93 fL Normal 80-100 [facility] Comment on above: Performed By: #### C SUSIE, 1987-03, [employer], LIVR, 99584-9, 83113-9, ENAP, 08482-0, AHP #### [facility] ([id number]) [address], [address] [place] [address] MONOCYTES ABSOLUTE COUNT (10*3/UL) BY AUTOMATED COUNT 0.4 10*3/uL Normal 0.0-0.9 [facility] Comment on above: Performed By: #### C SUSIE, 1987-03, [employer], LIVR, 73041-8, 62586-4, ENAP, 00277-0, AHP #### [facility] ([id number]) [address], [address] [place] [address] MONOCYTES RELATIVE PERCENT BY AUTOMATED COUNT 6.6 % Normal [facility] Comment on above: Performed By: #### C SUSIE, 1987-03, [employer], LIVR, 41784-9, 00728-4, ENAP, 25839-4, AHP #### [facility] ([id number]) [address] [facility] [address] [place] [address] NEUTROPHILS ABSOLUTE COUNT BY AUTOMATED COUNT 4.1 10*3/uL Normal 1.5-6.6 [facility] Comment on above: Performed By: #### C SUSIE, 1987-03, [employer], LIVR, 92564-1, 43532-7, ENAP, 72204-0, AHP #### [facility] ([id number]) [address] [address] NEUTROPHILS RELATIVE PERCENT BY AUTOMATED COUNT 68.5 % Normal [facility] Comment on above: Performed By: #### Nicolás RICHARDS, 1987-03, [employer], LIVR, 57865-4, 38360-2, ENAP, 75776-5, AHP #### [facility] ([id number]) [address] [address] Platelet mean volume (Bld) [Entitic vol] 9.1 fL Normal 7-12 [facility] Comment on above: Performed By: #### C SUSIE, 1987-03, [employer], LIVR, 07789-8, 82092-9, ENAP, 35834-1, AHP #### [facility] ([id number]) [address], [facility] [address] [place] [address] Platelets (Bld) [#/Vol] 270 10*3/uL Normal 150-450 [facility] Comment on above: Performed By: #### Nicolás RICHARDS, 1987-03, [employer], LIVR, 62404-2, 31344-1, ENAP, 95988-0, AHP #### [facility] ([id number]) [address], [address] [place] [address] RBC COUNT 4.20 X10E12/L Normal 3.8-5.2 [facility] Comment on above: Performed By: #### Nicolás RICHARDS, 1987-03, [employer], LIVR, 08176-2, 24653-4, ENAP, 41600-2, AHP #### [facility] ([id number]) [address], [address] [address] WBC (Bld) [#/Vol] 5.9 10*3/uL Normal 4-11 [facility] Comment on above: Performed By: #### Nicolás RICHARDS, 1987-03, [employer], LIVR, 81352-5, 52152-1, ENAP, 54643-5, AHP #### [facility] ([id number]) [address] [address] ERYTHROCYTE SEDIMENTATION RA TE (ESR)on 06-08-2025 ESR, ERYTHROCYTE SEDIMENTATION RATE 33 mm/h High 0-30 [facility] Comment on above: Performed By: #### Nicolás RICHARDS, 1987-03, [employer], LIVR, 27313-2, 27066-0, ENAP, 43828-6, AHP #### [facility] ([id number]) [address] [address] HAPTOGLOBINon 06-08-2025 HAPTOGLOBIN 215 mg/dL Normal 32-228 [facility] Comment on above: Performed By: #### Nicolás RICHARDS, 1987-03, [employer], LIVR, 31130-6, 19823-4, ENAP, 44483-0, AHP #### [facility] ([id number]) [address] [address] LDL CHOLESTEROL, DIRECTon Cholesterol in LDL [Mass/Vol] 60 mg/dL Normal <=130 [facility] Comment on above: Result Comment: LDL <100 mg/dL - Desirable LDL 130-159 mg/dL - Borderline High Risk LDL >160 mg/dL - High Risk Performed By: #### C BCA, 1987-03, [employer], LIVR, 18419-7, 14738-7, ENAP, 79421-0, AHP #### [facility] ([id number]) [address], [address] [place] [address] LIVER PANELon 06-08-2025 Albumin [Mass/Vol] 4.4 g/dL Normal 3.2-5.3 [facility] Comment on above: Performed By: #### C BCA, 1987-03, [employer], LIVR, 91192-1, 42985-3, ENAP, 92679-0, AHP #### [facility] ([id number]) [address], [address] [place] [address] ALP [Catalytic activity/Vol] 87 U/L Normal 39-130 [facility] Comment on above: Performed By: #### C SUSIE, 1987-03, [employer], LIVR, 29026-3, 30258-9, ENAP, 38719-9, AHP #### [facility] ([id number]) [address], [address] [place] [address] ALT [Catalytic activity/Vol] 7 U/L Normal <=31 [facility] Comment on above: Performed By: #### C BCA, 1987-03, [employer], LIVR, 85049-2, 32903-7, ENAP, 14985-5, AHP #### [facility] ([id number]) [address], [address] [place] [address] AST [Catalytic activity/Vol] 25 U/L Normal <=41 [facility] Comment on above: Performed By: #### C BCA, 1987-03, [employer], LIVR, 07487-2, 37613-7, ENAP, 85769-7, AHP #### [facility] ([id number]) [address], [address] [place] [address] Bilirubin [Mass/Vol] 1.5 mg/dL High 0.3-1.2 [facility] Comment on above: Performed By: #### C BCA, 1987-03, [employer], LIVR, 68556-0, 04684-7, ENAP, 42849-8, AHP #### [facility] ([id number]) [address], [address] [place] [address] Bilirubin.indirect [Mass/Vol] 0.3 mg/dL Normal <=0.4 [facility] Comment on above: Performed By: #### C BCA, 1987-03, [employer], LIVR, 22261-9, 66286-6, ENAP, 82724-2, AHP #### [facility] ([id number]) [address], [address] [place] [address] Protein [Mass/Vol] 7.2 g/dL Normal 6.0-8.0 [facility] Comment on above: Performed By: #### C BCA, 1987-03, [employer], LIVR, 68623-8, 49388-6, ENAP, 04831-9, AHP #### [facility] ([id number]) [address], [address] [place] [address] CT [facility] WO CONT/INCL SCORINGon 05-03-2025 CT [facility] WO CONT/INCL SCORING CT [facility] WO CONT/INCL SCORING Noncontrast gated CT heart for coronary calcium scoring Clinical history:Health care maintenance. Comparison: None. TECHNIQUE: Gated noncontrast CT of the heart was obtained utilizing a [address] scanner. A separate workstation was utilized [...] Frederic Mays DO on 05/03/2025 1:25 PM [facility] DEXA [facility] SCAN CENTRAL SKE Gage [...] Valencia MD on 05/03/2025 8:47 AM Normal [facility] POCT EKGOrdered By: Annalise udgan on 05-03-2025 [facility] URINALYSISon 05-03-2025 Bilirubin Ql (U) Negative Normal Negative [facility] Comment on above: Performed By: #### U A ####[facility] [facility] ([facility])[address], [place] [address] VIR BLOOD/HGB Negative Normal Negative [facility] Comment on above: Performed By: #### U A ####[facility] [place] [facility] ([facility])[address], [place] [address] VIR Color (U) Colorless Normal Yellow, Colorless [facility] Comment on above: Performed By: #### U A ####[facility] [place] [facility] ([facility])[address], [place] [address] VIR Glucose Ql (U) Negative Normal Negative [facility] Comment on above: Performed By: #### U A ####[facility] [place] [facility] ([facility])[address], [place] [address] VIR Ketones Ql (U) Negative Normal Negative [facility] Comment on above: Performed By: #### U A ####[facility] [place] [facility] ([facility])[address], [place] [address] VIR Leukocyte esterase Test strip Ql (U) Negative Normal Negative [facility] Comment on above: Performed By: #### U A ####[facility] [place] [facility] ([facility])[address], [place] [address] VIR Nitrite Ql (U) Negative Normal Negative [facility] Comment on above: Performed By: #### U A ####[facility] [place] [facility] ([facility])[address], [place] [address] VIR PH,URINE 6.5 Normal 5.0-8.5 [facility] Comment on above: Performed By: #### U A ####[facility] [place] [facility] ([facility])[address] [facility] [address], [place] [address] VIR Protein Ql (U) Negative Normal Negative [facility] Comment on above: Performed By: #### U A ####[facility] [place] [facility] ([facility])[address] [facility] [address], [place] [address] VIR Specific gravity (U) [Rel density] 1.011 Normal 1.003-1.035 [facility] Comment on above: Performed By: #### U A ####[facility] [place] [facility] ([facility])[address] [facility] [address], [place] [address] VIR TURBIDITY Clear Normal Clear [facility] Comment on above: Performed By: #### U A ####[facility] [place] [facility] ([facility])[address] [facility] [address], [place] [address] VIR UROBILINOGEN <1.1 eu/dL Normal <1.1 eu/dL [facility] Comment on above: Performed By: #### U A ####[facility] [place] [facility] ([facility])[address] [facility] [address], [place] [address] VIR URINE CULTUREon 05-03-2025 Bacteria identified Cx Nom (U) CULTURE RESULTS NO GROWTH AT <1000 CFU/mL Normal [facility] PPG Comment on above: Order Comment: Dysur ia, frequency Performed By: #### U C ####[facility] [place] [facility] ([facility])[address] [facility] [address], [place] [address] VIR APOLIPOPROTEIN A1, Son 04-25 APOLIPOPROTEIN A1 189 mg/dL Normal >=140 [facility] PPG Comment on above: Result Comment: Test Performed by: [facility] [employer] [address] [address] Pulley Man: Sam Dukes Ph.D.; CLIA# [id number] Performed By: #### A PA1S ####[facility] [employer] ([facility])[address] [place] [id number] VIR APOLIPOPROTEIN B, Son 2024 Apolipoprotein B [Mass/Vol] 66 mg/dL Normal [facility] PPG Comment on above: Result Comment: REFERENCE VALUE Desirable: <90 Above Desirable: 90-99 Borderline high: 100-119 High: 120-139 Very high: > or = 140 Test Performed by: [facility] [address] [id number] Pulley Man: Sam Dukes Ph.D.; CLIA# [id number] Performed By: #### A POLBS ####[facility] [employer] ([facility])[address] [place] [address] VIR [employer] GENERIC TEST RESULT SEE NOTE Normal [facility] PPG Comment on above: Result Comment: Test name Result Flag Units RefIntvl Testosterone by [employer] Supervisor 3Rd Shift 13 ng/dL 5-32 REFERENCE INTERVAL: Testosterone by Warehouse Supervisor [employer] Females Premenopausal 9-55 ng/dL Postmenopausal 5-32 ng/dL INTERPRETIVE INFORMATION: Testosterone by Warehouse Supervisor 3Rd Shift Free or bioavailable testosterone measurements may provide supportive information. For individuals on testosterone-suppressing hormone therapies (e.g., antiandrogens or estrogens), refer to cisgender female reference intervals. For a complete set of all established reference intervals, refer to [employer]/Tests/Pub/[id number]. This test was developed and its performance characteristics determined by [employer]. It has not been cleared or approved by the US Food and Drug Administration. This test was performed in a CLIA certified laboratory and is intended for clinical purposes. Sex Hormone Binding Globulin 65 nmol/L 17-125 REFERENCE INTERVAL: Sex Hormone Binding Globulin Access complete set of age- and/or gender-specific reference intervals for this test in the [facility] Test Directory ([employer]). Testosterone, Free by Warehouse Supervisor 3Rd Shift 1.4 pg/mL 0.6-3.8 INTERPRETIVE INFORMATION: Testosterone, Free by Warehouse Supervisor 3Rd Shift Free testosterone concentration is calculated using total testosterone (measured by mass spectrometry) and the binding constant of testosterone and sex hormone-binding globulin (SHBG). For individuals on testosterone-suppressing hormone therapies (e.g., antiandrogens or estrogens), refer to cisgender female reference intervals. For a complete set of all established reference intervals, refer to ltd.[employer]Deck/Tests/Pub/[id number]. This test was developed and its performance characteristics determined by [employer]. It has not been cleared or approved by the US Food and Drug Administration. This test was performed in a CLIA certified laboratory and is intended for clinical purposes. Performed By: [facility] [employer] [address] [place] [id number] Cpht: Kwame Marion MD, PhD CLIA Number: [id number] Performed By: #### A GO ####[facility] ([facility])[address] [place] [address] VIR BILIRUBIN, DIRECTon 04-25-20 25 Bilirubin.indirect [Mass/Vol] 0.3 mg/dL Normal <=0.4 [facility] Comment on above: Performed By: #### D TEREZA ####[facility] ([facility])[address] [address] VIR CBC WITH AUTO DIFFERENTIALon 04-25-2025 BASOPHILS ABSOLUTE COUNT (10*3/UL) BY AUTOMATED COUNT 0.0 10*3/uL Normal 0.0-0.2 [facility] Comment on above: Performed By: #### C BCA #### [facility] ([facility]) [address] [place] [address] VIR BASOPHILS RELATIVE PERCENT BY AUTOMATED COUNT 0.5 % Normal [facility] Comment on above: Performed By: #### C BCA #### [facility] ([facility]) [address] [place] [address] VIR CELLAVISION DIFFERENTIAL TYPE AUTOMATED DIFFERENTIAL Normal [facility] Comment on above: Performed By: #### C BCA #### [facility] ([facility]) [address] [place] [address] VIR Eosinophils (Bld) [#/Vol] 0.3 10*3/uL Normal 0.0-0.4 [facility] Comment on above: Performed By: #### C BCA #### [facility] ([facility]) [address] [place] [address] VIR EOSINOPHILS RELATIVE PERCENT BY AUTOMATED COUNT 4.9 % Normal [facility] Comment on above: Performed By: #### C BCA #### [facility] ([facility]) [address] [place] [address] VIR Erythrocyte distribution width (RBC) [Ratio] 14.8 % Normal 11.5-15 [facility] Comment on above: Performed By: #### C BCA #### [facility] ([facility]) [address] [place] [address] VIR Hematocrit (Bld) [Volume fraction] 34.0 % Low 35-47 [facility] Comment on above: Performed By: #### C BCA #### [facility] ([facility]) [address] [place] [address] VIR Hemoglobin (Bld) [Mass/Vol] 11.4 g/dL Low 11.7-15.5 [facility] Comment on above: Performed By: #### C BCA #### [facility] ([facility]) [address] [place] [address] VIR LYMPHOCYTES ABSOLUTE COUNT (10*3/UL) BY AUTOMATED COUNT 1.3 10*3/uL Normal 1.0-3.5 [facility] Comment on above: Performed By: #### C BCA #### [facility] ([facility]) [address] [place] [address] VIR LYMPHOCYTES RELATIVE PERCENT BY AUTOMATED COUNT 20.5 % Normal [facility] Comment on above: Performed By: #### C BCA #### [facility] ([facility]) [address] [place] [address] VIR MCH (RBC) [Entitic mass] 30.8 pg Normal 27-34 [facility] Comment on above: Performed By: #### C BCA #### [facility] ([facility]) [address] [place] [address] VIR MCHC (RBC) [Mass/Vol] 33.5 g/dL Normal 32-36 [facility] Comment on above: Performed By: #### C BCA #### [facility] ([facility]) [address] [place] [address] VIR MCV (RBC) [Entitic vol] 92 fL Normal 80-100 [facility] Comment on above: Performed By: #### C BCA #### [facility] ([facility]) [address] [place] [address] VIR MONOCYTES ABSOLUTE COUNT (10*3/UL) BY AUTOMATED COUNT 0.5 10*3/uL Normal 0.0-0.9 [facility] Comment on above: Performed By: #### C BCA #### [facility] ([facility]) [address] [place] [address] VIR MONOCYTES RELATIVE PERCENT BY AUTOMATED COUNT 7.4 % Normal [facility] Comment on above: Performed By: #### C BCA #### [facility] ([facility]) [address] [place] [address] VIR NEUTROPHILS ABSOLUTE COUNT BY AUTOMATED COUNT 4.2 10*3/uL Normal 1.5-6.6 [facility] Comment on above: Performed By: #### C BCA #### [facility] ([facility]) [address] [place] [address] VIR NEUTROPHILS RELATIVE PERCENT BY AUTOMATED COUNT 66.7 % Normal [facility] Comment on above: Performed By: #### C BCA #### [facility] ([facility]) [address] [place] [address] VIR Platelet mean volume (Bld) [Entitic vol] 8.8 fL Normal 7-12 [facility] Comment on above: Performed By: #### C BCA #### [facility] ([facility]) [address] [place] [address] VIR Platelets (Bld) [#/Vol] 254 10*3/uL Normal 150-450 [facility] Comment on above: Performed By: #### C BCA #### [facility] ([facility]) [address] [place] [address] VIR RBC COUNT 3.71 X10E12/L Low 3.8-5.2 [facility] Comment on above: Performed By: #### C BCA #### [facility] ([facility]) [address] [place] [address] VIR WBC (Bld) [#/Vol] 6.3 10*3/uL Normal 4-11 [facility] Comment on above: Performed By: #### C BCA #### [facility] ([facility]) [address] [place] [address] VIR COMPREHENSIVE METABOLIC PANE Martin 04-25-2025 Albumin [Mass/Vol] 4.7 g/dL Normal 3.2-5.3 [facility] Comment on above: Order Comment: Patie nt Instructions: Fast 12 hours Performed By: #### C MP ####[facility] ([facility])[address], [place] [address] VIR ALP [Catalytic activity/Vol] 76 U/L Normal 39-130 [facility] Comment on above: Order Comment: Patie nt Instructions: Fast 12 hours Performed By: #### C MP ####[facility] ([facility])[address], [place] [address] VIR ALT [Catalytic activity/Vol] 6 U/L Normal <=31 [facility] Comment on above: Order Comment: Patie nt Instructions: Fast 12 hours Performed By: #### C MP ####[facility] ([facility])[address], [place] [address] VIR Anion gap [Moles/Vol] 12 mmol/L Normal 5-15 [facility] Comment on above: Order Comment: Patie nt Instructions: Fast 12 hours Performed By: #### C MP ####[facility] ([facility])[address], [place] [address] VIR AST [Catalytic activity/Vol] 27 U/L Normal <=41 [facility] Comment on above: Order Comment: Patie nt Instructions: Fast 12 hours Performed By: #### C MP ####[facility] ([facility])[address], [place] [address] VIR Bilirubin [Mass/Vol] 1.8 mg/dL High 0.3-1.2 [facility] Comment on above: Order Comment: Patie nt Instructions: Fast 12 hours Performed By: #### C MP ####[facility] ([facility])[address], [place] [address] VIR Calcium [Mass/Vol] 10.1 mg/dL Normal 8.5-10.5 [facility] Comment on above: Order Comment: Patie nt Instructions: Fast 12 hours Performed By: #### C MP ####[facility] ([facility])[address], [place] [address] VIR Chloride [Moles/Vol] 97 mmol/L Low 98-109 [facility] Comment on above: Order Comment: Patie nt Instructions: Fast 12 hours Performed By: #### C MP ####[facility] ([facility])[address], [place] [address] VIR CO2 [Moles/Vol] 31 mmol/L Normal 22-32 [facility] Comment on above: Order Comment: Patie nt Instructions: Fast 12 hours Performed By: #### C MP ####[facility] ([facility])[address], [place] [address] VIR Creatinine [Mass/Vol] 1.24 mg/dL High 0.40-1.00 [facility] Comment on above: Order Comment: Patie nt Instructions: Fast 12 hours Result Comment: METH OD TRACEABLE TO IDMS STANDARD Performed By: #### C MP ####[facility] ([facility])[address], [place] [address] VIR GFR/1.73 sq M.predicted among non-blacks MDRD (S/P/Bld) [Vol rate/Area] 46 mL/min/{1.73_m2} Low >=60 [facility] Comment on above: Order Comment: Patie nt Instructions: Fast 12 hours Result Comment: Repo rted eGFR is based on the CKD-EPI 2020 equation that does not use a race coefficient. Performed By: #### C MP ####[facility] ([facility])[address], [place] [address] VIR Glucose [Mass/Vol] 98 mg/dL Normal 65-99 [facility] Comment on above: Order Comment: Patie nt Instructions: Fast 12 hours Performed By: #### C MP ####[facility] ([facility])[address], [place] [address] VIR Potassium [Moles/Vol] 4.2 mmol/L Normal 3.5-5.0 [facility] Comment on above: Order Comment: Patie nt Instructions: Fast 12 hours Performed By: #### C MP ####[facility] ([facility])[address], [place] [address] VIR Protein [Mass/Vol] 7.8 g/dL Normal 6.0-8.0 [facility] Comment on above: Order Comment: Patie nt Instructions: Fast 12 hours Performed By: #### C MP ####[facility] ([facility])[address], [place] [address] VIR Sodium [Moles/Vol] 140 mmol/L Normal 134-146 [facility] Comment on above: Order Comment: Patie nt Instructions: Fast 12 hours Performed By: #### C MP ####[facility] ([facility])[address], [place] [address] VIR Urea nitrogen [Mass/Vol] 36 mg/dL High 5-27 [facility] Comment on above: Order Comment: Patie nt Instructions: Fast 12 hours Performed By: #### C MP ####[facility] ([facility])[address] [facility] [address] [address] VIR CORTISOLon 04-25-2025 CORTISOL, TOTAL 21.2 ug/dL Normal [facility] Comment on above: Order Comment: Due t o the diurnal variation of cortisol levels in normal subjects, all cortisol measurments should be referenced to the time of day of sample collection. AM Cortisol Age>=6 6.7-22.4 ug/dL PM Cortisol Age>=6 <10 ug/dL Performed By: #### C ORT #### [facility] ([facility]) [address] [place] [address] VIR DHEA-SULFATEon 04-25-2025 DHEA S 71 ug/dL Normal 7-177 [facility] Comment on above: Performed By: #### D HEAS ####[facility] ([facility])[address] [facility] [address] [address] VIR DIHYDROTESTOSTERONE, Son DIHYDROTESTOSTERONE <50 Normal <=128 [facility] Comment on above: Result Comment: ADDITIONAL INFORMATION This test was developed and its performance characteristics determined by [facility] in a manner consistent with CLIA requirements. This test has not been cleared or approved by the U.S. Food and Drug Administration. Test Performed by: [facility] [address] [place] [address] Pulley Man: Sam Dukes Ph.D.; CLIA# [id number] Performed By: #### Manjula HSTR ####[facility] (SDL)[address] [place] [address] VIR ERYTHROCYTE SEDIMENTATION RA TE (ESR)on 04-25-2025 ESR, ERYTHROCYTE SEDIMENTATION RATE 67 mm/h High 0-30 [facility] Comment on above: Performed By: #### Mell SR ####[facility] ([facility])[address] [facility] [address] [address] VIR ESTRADIOLon 04-25-2025 ESTRADIOL <^15.0 Normal [facility] Comment on above: Order [...] this assay. Performed By: #### E STD ####[facility] ([facility])[address] [place] [address] VIR FERRITINon 04-25-2025 Ferritin [Mass/Vol] 90 ng/mL Normal 11-307 [facility] Comment on above: Performed By: #### F ERR ####[facility] ([facility])[address] [place] [address] VIR FOLLICLE STIMULATING HORMONE on 04-25-2025 FOLLICLE STIM HORMONE 24.9 mIU/mL Normal [facility] Comment on above: Order Comment: KARISHMA L FEMALE:Luteal 1.8-5.1 mIU/mLFollicular 3.8-8.8 mIU/mLMid Cycle 4.5-22.5 mIU/mLPost [place]urel 16.7-113.6 mIU/mL Performed By: #### F SH ####[facility] ([facility])[address] [address] VIR GGTon 04-25-2025 Gamma glutamyl transferase [Catalytic activity/Vol] 23 U/L Normal 9-33 [facility] Comment on above: Performed By: #### G GT ####[facility] ([facility])[address] [address] VIR HEMOGLOBIN A1Con 04-25-2025 Glucose [Mass/Vol] 126 mg/dL Normal [facility] Comment on above: Performed By: #### H A1C ####[facility] ([facility])[address] [address] VIR HbA1c (Bld) [Mass fraction] 6.0 % High 4.4-5.6 [facility] Comment on above: Result Comment: ADA Guidelines Result HgbA1c Normal : less than 5.7 % Prediabetes : 5.7 % to 6.4 % Diabetes : > 6.4 % Use with caution in patients with abnormal hemoglobin variants as the half-life of red blood cells and in vivo glycation rates are affected. Performed By: #### H A1C ####[facility] ([facility])[address] [address] VIR HEPATITIS C(HCV) ANTIBODY W/ REFLEX TO PCRon 04-25-2025 ANTI HCV W/PCR REFLX Non-Reactive Normal Non-Reactive [facility] Comment on above: Result Comment: If r ecent infection suspected, recommend repeat testing (>2 months). Jyxayq-cz-tuxkej ratio is <1.0. Performed By: #### H CV ####[facility] ([facility])[address] [address] VIR HIGH SENSITIVITY CRPon 04-25 HS CRP 0.020 mg/dL Normal 0.000-0.744 [facility] Comment on above: Order [...] other conditions. Performed By: #### H SCRP ####[facility] ([facility])[address] [address] VIR HOMOCYSTEINE, PLASMAon 04-25 HOMOCYSTEINE 36.45 umol/L High 3.36-20.44 [facility] Comment on above: Performed By: #### H MCY #### [facility] ([facility]) [address] [facility] [address] [place] [address] VIR INSULINon 04-25-2025 INSULIN 2.24 uIU/mL Normal 1.00-23.00 [facility] Comment on above: Order Comment: Josh tran Instructions: Fast 12 hoursRef. range is for FASTING NON-DIABETIC POPULATION. Performed By: #### I NSL ####[facility] ([facility])[address] [address] VIR INSULIN-LIKE GFB PROTEIN 3on 04-25-2025 IGFBP-3 4.9 mcg/mL Normal 2.8-5.7 [facility] Comment on above: Result Comment: Test Performed by: [facility] [employer] [facility] [address] [place] [address] Pulley Man: Sam Dukes Ph.D.; CLIA# [id number] Performed By: #### I GFB3 ####[facility] [employer] ([facility])[address] [place] [address] VIR IRON AND TIBCon 04-25-2025 Iron [Mass/Vol] 141 ug/dL Normal 50-170 [facility] Comment on above: Performed By: #### F EPR ####[facility] ([facility])[address], [place] [address] VIR IRON BINDING 378 ug/dL Normal 250-425 [facility] Comment on above: Performed By: #### F EPR ####[facility] ([facility])[address], [place] [address] VIR IRON SATURATION 37 % SATURATION Normal 15-50 [facility] Comment on above: Performed By: #### F EPR ####[facility] ([facility])[address], [place] [address] VIR Transferrin [Mass/Vol] 270 mg/dL Normal 168-[address] [facility] Comment on above: Performed By: #### F EPR ####[facility] ([facility])[address], [place] [address] VIR LDHon 04-25-2025 LDH 371 U/L High 100-235 [facility] Comment on above: Performed By: #### L DH ####[facility] ([facility])[address], [place] [address] VIR LIPID PROFILEon 04-25-2025 Cholesterol [Mass/Vol] 171 mg/dL Normal 150-[address] [facility] Comment on above: Order Comment: Patie nt Instructions: Fast 12 hours Performed By: #### L IPR ####[facility] ([facility])[address], [place] [address] VIR Cholesterol in HDL [Mass/Vol] 82 mg/dL Normal >39 [facility] Comment on above: Order Comment: Patie nt Instructions: Fast 12 hours Result Comment: HDL <40 mg/dL - High Risk HDL > or = 40mg/dL- Desirable HDL >60 mg/dL - Negative Risk Performed By: #### L IPR ####[facility] ([facility])[address], [place] [address] VIR Cholesterol in LDL [Mass/Vol] 80 mg/dL Normal <130 [facility] Comment on above: Order Comment: Patie nt Instructions: Fast 12 hours Result Comment: LDL <100 mg/dL - Desirable LDL >160 mg/dL - High Risk Performed By: #### L IPR ####[facility] ([facility])[address] [facility] [address], [place] [address] VIR CHOLESTEROL:HDL 2.1 Normal 1.0-5.0 [facility] Comment on above: Order Comment: Patie nt Instructions: Fast 12 hours Performed By: #### L IPR ####[facility] ([facility])[address] [facility] [address], [place] [address] VIR Triglyceride [Mass/Vol] 46 mg/dL Normal 27-150 [facility] Comment on above: Order Comment: Patie nt Instructions: Fast 12 hours Performed By: #### L IPR ####[facility] ([facility])[address] [facility] [address], [place] [address] VIR VERY LOW LIPOPROTEIN 9 mg/dL Normal 0-30 [facility] Comment on above: Order Comment: Patie nt Instructions: Fast 12 hours Performed By: #### L IPR ####[facility] ([facility])[address] [facility] [address] [address] VIR LIPOPROTEIN(A), Son 04-25-20 25 Lipoprotein a [Mass/Vol] mg/dL Normal <75 [facility] Comment on above: Result [...] considered a risk enhancing factor by the [employer]. This test has been modified from the machine tool designer's instructions. Its performance characteristics were determined by [facility] in a manner consistent with CLIA requirements. This test has not been cleared or approved by the U.S. Food and Drug Administration. Test Performed by: [address] [address] Pulley Man: Sam Dukes Ph.D.; IA# [id number] Performed By: #### L IPA1 ####[facility] ([facility])[address] [place] [address] VIR LUTEINIZING HORMONEon 2024 LUTEINIZING HORMONE 0.9 mIU/mL Normal [facility] Comment on above: Order Comment: KARISHMA L FEMALEFollicular 2.1-10.9 mIU/mLMid Cycle 19.2-103 mIU/mLLuteal 1.2-12.9 mIU/mLPost [place]urel 10.9-58.6 mIU/mL Performed By: #### L H ####[facility] ([facility])[address] [facility] [address], [place] [address] VIR MAGNESIUMon 04-25-2025 Magnesium [Mass/Vol] 2.2 mg/dL Normal 1.8-2.6 [facility] Comment on above: Performed By: #### M G ####[facility] ([facility])[address], [place] [address] VIR MICROALBUMIN / CREATININE UR INE RATIOon 04-25-2025 Albumin DL <= 20 mg/L (U) [Mass/Vol] 1.0 mg/dL Normal 0.0-1.9 [facility] Comment on above: Performed By: #### M ALBU ####[facility] ([facility])[address], [place] [address] VIR MALB/CREAT RATIO 53.2 mg/g High 0.0-30.0 [facility] Comment on above: Performed By: #### M ALBU ####[facility] ([facility])[address], [place] [address] VIR URINE CREATININE,RDM 18.80 mg/dL Normal [facility] Comment on above: Performed By: #### M ALBU ####[facility] [place] ([facility])[address] [address] VIR MR ICARIA BODYon 04-25-2025 MR ICARIA [...] Ashok Kramer MD on 04/25/2025 1:34 PM [facility] MR ICARIA CARDIACon 04-25-20 MR [...] Cardiovasc Magn Reson 22, 87 (2020). [email or web address] Finalized by Ashok Kramer MD on 04/25/2025 1:30 PM Normal [facility] MR ICARIA NEUROon 04-25-2025 MR ICARIA NEURO MR ICARIA NEURO MR ICARIA NEURO CLINICAL INFORMATION: Health care maintenance TECHNIQUE: Multiplanar multisequence MR imaging of the brain and [place] of [place] was performed on a 3 [place] superconducting Siemens unit, without intravenous contrast. Whole-body multisequence screening MRI performed without contrast, selective interpretation of the neck portions; remaining chest, abdomen, and pelvis is reported separately. Volume rendered 3-D post processed reformatted images were generated at an independent workstation, with [employer] automated segmentation analysis, to further define anatomy [...] thecal sac stenosis at C5-C6. IMPRESSION: * Gyvr-wz-qliramtu burden white matter FLAIR hyperintensities, most often seen in the setting of chronic microvascular ischemia. * Unremarkable gambell of Garrido MRA. * Several brain parenchymal [...] Kam Moon MD on 04/25/2025 12:05 PM [facility] PHOSPHORUSon 04-25-2025 Phosphate [Mass/Vol] 3.7 mg/dL Normal 2.4-4.9 [facility] Comment on above: Performed By: #### P HOS ####[facility] [place] ([facility])[address] [facility] [address] [address] VIR PROGESTERONEon 04-25-2025 PROGESTERONE 0.9 ng/mL Normal [facility] Comment on above: Result Comment: PREG NANT FEMALES: 1st Tri: 4.7-50.7 ng/ml 2nd Tri: 19.4-45.3 ng/ml MENSTRUATING FEMALES: Follicular: 0.3-1.5 ng/ml Mid Luteal: 5.2-18.6 ng/ml Post Lissie: <0.1-0.8 ng/ml Performed By: #### P RGST ####[facility] [place] ([facility])[address] [place] [address] VIR PROLACTINon 04-25-2025 PROLACTIN 1.0 ng/mL Low 2.7-19.6 [facility] Comment on above: Performed By: #### P ROL ####[facility] [place] ([facility])[address] [facility] [address] [address] VIR SEX HORMONE BINDING GLOBULIN on 04-25-2025 SEX HORMONE BINDING GLOBULIN 60.4 nmol/L Normal 16.8-125.2 [facility] Comment on above: Result Comment: PT T YPE AGE RANGE MALES 20-50Y 13.3-89.5 mmol/L FEMALES 20-46Y 18.2-135.5 mmol/L FEMALES POSTMENO 47-91Y 16.8-125.2 mmol/L Performed By: #### S HBG ####[facility] [place] ([facility])[address] [facility] [address], [place] [address] VIR T3, FREEon 04-25-2025 Free T3 [Mass/Vol] 2.59 pg/mL Normal 2.50-3.90 [facility] Comment on above: Performed By: #### F T3 ####[facility] ([facility])[address] [facility] [address] [address] VIR T4, FREEon 04-25-2025 Free T4 [Mass/Vol] 1.43 ng/dL Normal 0.61-1.60 [facility] Comment on above: Performed By: #### F T4 #### [facility] [place] ([facility]) [address] [place] [address] VIR TESTOSTERONE, TOTAL AND FREE , Son 04-25-2025 TESTOSTERONE, TOTAL AND FREE, S TESTF TESTOSTERONE, TOTAL AND FREE, S Cancelled Normal [facility] TSHon 04-25-2025 TSH 1.63 uIU/mL Normal 0.49-4.67 [facility] Comment on above: Performed By: #### T SH #### [facility] ([facility]) [address] [place] [address] VIR URIC ACIDon 04-25-2025 Urate [Mass/Vol] 5.4 mg/dL Normal 2.6-7.2 [facility] Comment on above: Performed By: #### U INDRA ####[facility] ([facility])[address] [address] VIR URINALYSISon 04-25-2025 Bilirubin Ql (U) Negative Normal Negative [facility] Comment on above: Order Comment: Urine received without preservative. Delays in transport may affect results. Interpret with caution. A clinical correlation is recommended. Performed By: #### U A ####[facility] ([facility])[address] [facility] [address] [address] VIR BLOOD/HGB Negative Normal Negative [facility] Comment on above: Order Comment: Urine received without preservative. Delays in transport may affect results. Interpret with caution. A clinical correlation is recommended. Performed By: #### U A ####[facility] ([facility])[address] [facility] [address] [address] VIR Color (U) Colorless Normal Yellow, Colorless [facility] Comment on above: Order Comment: Urine received without preservative. Delays in transport may affect results. Interpret with caution. A clinical correlation is recommended. Performed By: #### U A ####[facility] ([facility])[address] [facility] [address] [address] VIR Glucose Ql (U) Negative Normal Negative [facility] Comment on above: Order Comment: Urine received without preservative. Delays in transport may affect results. Interpret with caution. A clinical correlation is recommended. Performed By: #### U A ####[facility] ([facility])[address] [facility] [address] [address] VIR Ketones Ql (U) Negative Normal Negative [facility] Comment on above: Order Comment: Urine received without preservative. Delays in transport may affect results. Interpret with caution. A clinical correlation is recommended. Performed By: #### U A ####[facility] [place] ([facility])[address], [place] [address] VIR Leukocyte esterase Test strip Ql (U) Negative Normal Negative [facility] Comment on above: Order Comment: Urine received without preservative. Delays in transport may affect results. Interpret with caution. A clinical correlation is recommended. Performed By: #### U A ####[facility] [place] ([facility])[address] [facility] [address], [place] [address] VIR Nitrite Ql (U) Negative Normal Negative [facility] Comment on above: Order Comment: Urine received without preservative. Delays in transport may affect results. Interpret with caution. A clinical correlation is recommended. Performed By: #### U A ####[facility] [place] ([facility])[address] [facility] [address] [address] VIR PH,URINE 7.0 Normal 5.0-8.5 [facility] Comment on above: Order Comment: Urine received without preservative. Delays in transport may affect results. Interpret with caution. A clinical correlation is recommended. Performed By: #### U A ####[facility] [place] ([facility])[address] [facility] [address] [address] VIR Protein Ql (U) Negative Normal Negative [facility] Comment on above: Order Comment: Urine received without preservative. Delays in transport may affect results. Interpret with caution. A clinical correlation is recommended. Performed By: #### U A ####[facility] [place] ([facility])[address] [facility] [address] [address] VIR Specific gravity (U) [Rel density] 1.009 Normal 1.003-1.035 [facility] Comment on above: Order Comment: Urine received without preservative. Delays in transport may affect results. Interpret with caution. A clinical correlation is recommended. Performed By: #### U A ####[facility] [place] ([facility])[address] [facility] [address] [address] VIR TURBIDITY Clear Normal Clear [facility] Comment on above: Order Comment: Urine received without preservative. Delays in transport may affect results. Interpret with caution. A clinical correlation is recommended. Performed By: #### U A ####[facility] [place] ([facility])[address] [facility] [address] [address] VIR UROBILINOGEN <1.1 eu/dL Normal <1.1 eu/dL [facility] Comment on above: Order Comment: Urine received without preservative. Delays in transport may affect results. Interpret with caution. A clinical correlation is recommended. Performed By: #### U A ####[facility] [place] ([facility])[address] [facility] [address] [address] VIR VITAMIN B12on 04-25-2025 Cobalamin (Vitamin B12) [Mass/Vol] 274 pg/mL Normal 180-914 [facility] Comment on above: Performed By: #### B 12 ####[facility] [place] ([facility])[address] [facility] [address] [address] VIR VITAMIN D 25 HYDROXYon 04-25 VITAMIN D 25 HYD TOT 34.3 ng/mL Normal 30.0-100.0 [facility] Comment on above: Order Comment: Vitam in D status 25 [place] Vitamin D Deficiency <20 ng/mLInsufficiency 20-29 ng/mLSufficiency 30-100 ng/mLToxicity >100 ng/mLNOTE: A pediatric reference range has not been established by the machine tool designer of this kit. The [employer] [employer] recommends a Vitamin D level of = or >20ng/mL in infants and children. Performed By: #### V ITD ####[facility] [place] ([facility])[address] [address] VIR APTTon 04-17-2025 aPTT Coag (Bld) [Time] 29 s Normal 26-37 Pr [facility] Comment on above: Performed By: #### C SUSIE, 1987-03, [employer], [employer]IV[employer], 67582-5, 91558-7, ENAP, 67431-2, AHP #### [facility] [place] [facility] ([id number]) [address] [place] [address] BEDSIDE GLUCOSEon 04-17-2025 Glucose [Mass/Vol] 114 mg/dL High 65-99 [facility] [place] [facility] Comment on above: Performed By: #### C SUSIE, 1987-03, [employer], LIVR, 73152-9, 34771-2, ENAP, 34068-4, AHP #### [facility] [place] ([id number]) [address] [place] [address] CBC WITH AUTO DIFFERENTIALon 04-17-2025 BASOPHILS ABSOLUTE COUNT (10*3/UL) BY AUTOMATED COUNT 0.0 10*3/uL Normal 0.0-0.2 [facility] Comment on above: Performed By: #### C SUSIE, 1987-03, [employer], [employer]IVR, 80421-0, 80487-1, ENAP, 55668-7, AHP #### [facility] [place] ([id number]) [address] [address] BASOPHILS RELATIVE PERCENT BY AUTOMATED COUNT 0.4 % Normal [facility] Comment on above: Performed By: #### C SUSIE, 1987-03, [employer], LIVR, 82541-4, 38579-3, ENAP, 34705-8, AHP #### [facility] [place] ([id number]) [address], [facility] [address] [place] [address] CELLAVISION DIFFERENTIAL TYPE AUTOMATED DIFFERENTIAL Normal [facility] Comment on above: Performed By: #### C SUSIE, 1987-03, [employer], LIVR, 58559-3, 06108-7, ENAP, 41674-1, AHP #### [facility] [place] [facility] ([id number]) [address] [address] Eosinophils (Bld) [#/Vol] 0.2 10*3/uL Normal 0.0-0.4 [facility] Comment on above: Performed By: #### C SUSIE, 1987-03, [employer], [employer]IVR, 49801-0, 35591-3, ENAP, 90881-7, AHP #### [facility] [place] [facility] ([id number]) [address] [address] EOSINOPHILS RELATIVE PERCENT BY AUTOMATED COUNT 2.5 % Normal [facility] Comment on above: Performed By: #### C SUSIE, 1987-03, [employer], LIVR, 53980-7, 35520-9, ENAP, 82321-8, AHP #### [facility] [place] [facility] ([id number]) [address] [address] Erythrocyte distribution width (RBC) [Ratio] 14.9 % Normal 11.5-15 [facility] Comment on above: Performed By: #### C SUSIE, 1987-03, [employer], [employer]IVR, 75846-8, 07370-0, ENAP, 82591-2, AHP #### [facility] [place] ([id number]) [address] [place] [address] Hematocrit (Bld) [Volume fraction] 36.3 % Normal 35-47 [facility] Comment on above: Performed By: #### C SUSIE, 1987-03, [employer], [employer]IV[employer], 86377-9, 08984-9, ENAP, 70295-8, AHP #### [facility] [place] ([id number]) [address], [facility] [address] [place] [address] Hemoglobin (Bld) [Mass/Vol] 11.9 g/dL Normal 11.7-15.5 [facility] Comment on above: Performed By: #### C SUSIE, 1987-03, [employer], [employer]IV[employer], 89822-8, 56384-1, ENAP, 88410-2, AHP #### [facility] [place] ([id number]) [address], [facility] [address] [place] [address] LYMPHOCYTES ABSOLUTE COUNT (10*3/UL) BY AUTOMATED COUNT 1.7 10*3/uL Normal 1.0-3.5 [facility] Comment on above: Performed By: #### C SUSIE, 1987-03, [employer], [employer]IV[employer], 99911-2, 24299-6, ENAP, 35359-4, AHP #### [facility] [place] ([id number]) [address] [address] LYMPHOCYTES RELATIVE PERCENT BY AUTOMATED COUNT 20.2 % Normal [facility] Comment on above: Performed By: #### C SUSIE, 1987-03, [employer], [employer]IVR, 92410-6, 12667-0, ENAP, 58451-8, AHP #### [facility] [place] ([id number]) [address] [address] [place] [address] MCH (RBC) [Entitic mass] 30.0 pg Normal 27-34 [facility] Comment on above: Performed By: #### C SUSIE, 1987-03, [employer], LIV[employer], 66131-8, 20356-0, ENAP, 05003-9, AHP #### [facility] [place] ([id number]) [address] [place] [address] MCHC (RBC) [Mass/Vol] 32.7 g/dL Normal 32-36 [facility] Comment on above: Performed By: #### C BCA, 1987-03, [employer], [employer]IV[employer], 37229-0, 39231-3, ENAP, 79180-5, AHP #### [facility] [place] ([id number]) [address] [place] [address] MCV (RBC) [Entitic vol] 92 fL Normal 80-100 [facility] Comment on above: Performed By: #### C SUSIE, 1987-03, [employer], [employer]IV[employer], 35567-8, 76594-9, ENAP, 85707-0, AHP #### [facility] [place] [facility] ([id number]) [address] [place] [address] MONOCYTES ABSOLUTE COUNT (10*3/UL) BY AUTOMATED COUNT 0.7 10*3/uL Normal 0.0-0.9 [facility] Comment on above: Performed By: #### C SUSIE, 1987-03, [employer], [employer]IV[employer], 44056-1, 75071-4, ENAP, 53751-9, AHP #### [facility] [place] [facility] ([id number]) [address] [place] [address] MONOCYTES RELATIVE PERCENT BY AUTOMATED COUNT 8.7 % Normal [facility] Comment on above: Performed By: #### C BCA, 1987-03, [employer], LIVR, 52818-2, 58565-0, ENAP, 44530-7, AHP #### [facility] [place] [facility] ([id number]) [address] [place] [address] NEUTROPHILS ABSOLUTE COUNT BY AUTOMATED COUNT 5.6 10*3/uL Normal 1.5-6.6 [facility] Comment on above: Performed By: #### C SUSIE, 1987-03, [employer], LIVR, 67947-6, 30740-3, ENAP, 47378-0, AHP #### [facility] [place] [facility] ([id number]) [address] [place] [address] NEUTROPHILS RELATIVE PERCENT BY AUTOMATED COUNT 68.2 % Normal [facility] Comment on above: Performed By: #### C SUSIE, 1987-03, [employer], LIVR, 95347-3, 23793-3, ENAP, 77292-2, AHP #### [facility] [place] [facility] ([id number]) [address], [facility] [address] [place] [address] Platelet mean volume (Bld) [Entitic vol] 8.4 fL Normal 7-12 [facility] Comment on above: Performed By: #### C SUSIE, 1987-03, [employer], LIVR, 26387-0, 96977-9, ENAP, 63760-4, AHP #### [facility] [place] [facility] ([id number]) [address] [place] [address] Platelets (Bld) [#/Vol] 255 10*3/uL Normal 150-450 [facility] Comment on above: Performed By: #### C SUSIE, 1987-03, [employer], LIVR, 72583-2, 94091-7, ENAP, 40474-9, AHP #### [facility] [place] [facility] ([id number]) [address], [facility] [address] [place] [address] RBC COUNT 3.95 X10E12/L Normal 3.8-5.2 [facility] Comment on above: Performed By: #### C SUSIE, 1987-03, [employer], LIVR, 53551-9, 91082-0, ENAP, 42191-2, AHP #### [facility] [place] [facility] ([id number]) [address] [place] [address] WBC (Bld) [#/Vol] 8.3 10*3/uL Normal 4-11 [facility] Comment on above: Performed By: #### C BCA, 1987-03, [employer], LIVR, 94999-8, 50037-0, ENAP, 15769-7, AHP #### [facility] [place] [facility] ([id number]) [address] [place] [address] COMPREHENSIVE METABOLIC PANE Martin 04-17-2025 Albumin [Mass/Vol] 4.7 g/dL Normal 3.2-5.3 [facility] Comment on above: Performed By: #### C BCA, 1987-03, [employer], LIVR, 37516-9, 02628-1, ENAP, 78300-6, AHP #### [facility] [place] [facility] ([id number]) [address] [place] [address] ALP [Catalytic activity/Vol] 88 U/L Normal 39-130 [facility] Comment on above: Performed By: #### C BCA, 1987-03, [employer], LIVR, 56760-6, 45613-3, ENAP, 30917-1, AHP #### [facility] [place] [facility] ([id number]) [address] [place] [address] ALT [Catalytic activity/Vol] 17 U/L Normal <=31 [facility] Comment on above: Performed By: #### C BCA, 1987-03, [employer], LIVR, 60656-5, 91287-0, ENAP, 75413-0, AHP #### [facility] [place] [facility] ([id number]) [address] [place] [address] Anion gap [Moles/Vol] 11 mmol/L Normal 5-15 [facility] Comment on above: Performed By: #### C BCA, 1987-03, [employer], LIVR, 44096-7, 35883-0, ENAP, 00351-5, AHP #### [facility] [place] [facility] ([id number]) [address] [place] [address] AST [Catalytic activity/Vol] 20 U/L Normal <=41 [facility] Comment on above: Performed By: #### C BCA, 1987-03, [employer], LIVR, 06039-3, 52978-0, ENAP, 74184-4, AHP #### [facility] [place] ([id number]) [address] [place] [address] Bilirubin [Mass/Vol] 0.8 mg/dL Normal 0.3-1.2 [facility] Comment on above: Performed By: #### C BCA, 1987-03, [employer], [employer]IVR, 00326-3, 97638-7, ENAP, 76318-0, AHP #### [facility] [place] [facility] ([id number]) [address] [place] [address] Calcium [Mass/Vol] 10.3 mg/dL Normal 8.5-10.5 [facility] Comment on above: Performed By: #### C BCA, 1987-03, [employer], LIVR, 70954-2, 80698-2, ENAP, 64197-8, AHP #### [facility] [place] [facility] ([id number]) [address] [place] [address] Chloride [Moles/Vol] 96 mmol/L Low 98-109 [facility] Comment on above: Performed By: #### C BCA, 1987-03, [employer], [employer]IVR, 15292-6, 01338-2, ENAP, 46643-8, AHP #### [facility] [place] [facility] ([id number]) [address] [place] [address] CO2 [Moles/Vol] 32 mmol/L Normal 22-32 [facility] Comment on above: Performed By: #### C BCA, 1987-03, [employer], LIVR, 85595-0, 72602-1, ENAP, 80730-2, AHP #### [facility] [place] [facility] ([id number]) [address] [place] [address] Creatinine [Mass/Vol] 1.12 mg/dL High 0.40-1.00 [facility] Comment on above: Result Comment: METH OD TRACEABLE TO IDMS STANDARD Performed By: #### C BCA, 1987-03, [employer], LIVR, 10699-9, 96168-6, ENAP, 01419-9, AHP #### [facility] [place] [facility] ([id number]) [address] [address] GFR/1.73 sq M.predicted among non-blacks MDRD (S/P/Bld) [Vol rate/Area] 52 mL/min/{1.73_m2} Low >=60 [facility] Comment on above: Result Comment: Repo rt eGFR is based on the CKD-EPI 2020 equation that does not use a race coefficient. Performed By: #### C BCA, 1987-03, [employer], LIVR, 46531-8, 46807-1, ENAP, 62967-2, AHP #### [facility] [place] [facility] ([id number]) [address] [address] Glucose [Mass/Vol] 112 mg/dL High 65-99 [facility] Comment on above: Performed By: #### C BCA, 1987-03, [employer], LIVR, 80658-3, 32151-9, ENAP, 80023-3, AHP #### [facility] [place] [facility] ([id number]) [address] [address] Potassium [Moles/Vol] 4.6 mmol/L Normal 3.5-5.0 [facility] Comment on above: Performed By: #### C BCA, 1987-03, [employer], LIVR, 71373-9, 46501-7, ENAP, 57843-1, AHP #### [facility] [place] [facility] ([id number]) [address] [address] Protein [Mass/Vol] 8.1 g/dL High 6.0-8.0 [facility] Comment on above: Performed By: #### C BCA, 1987-03, [employer], LIVR, 87096-8, 41042-7, ENAP, 82810-3, AHP #### [facility] [place] [facility] ([id number]) [address] [place] [address] Sodium [Moles/Vol] 139 mmol/L Normal 134-146 [facility] Comment on above: Performed By: #### C BCA, 1987-03, [employer], LIVR, 39298-2, 45148-4, ENAP, 89848-5, AHP #### [facility] [place] [facility] ([id number]) [address] [place] [address] Urea nitrogen [Mass/Vol] 30 mg/dL High 5-27 [facility] Comment on above: Performed By: #### C BCA, 1987-03, [employer], LIVR, 14584-7, 18297-9, ENAP, 83620-6, AHP #### [facility] [place] [facility] ([id number]) [address] [place] [address] CT ABDOMEN AND PELVIS WO CON Ton [...] Ramirez MD on 04/17/2025 8:33 PM Normal [facility] CT BRAIN WO CONTon 5 CT [...] Ramirez MD on 04/17/2025 8:30 PM Normal [facility] CT CHEST WO CONTon 5 CT [...] detection for pulmonary nodules was performed utilizing [employer] software. FINDINGS: Comparison: CT dated 01/04/2019. Nodule [...] Peres MD on 04/17/2025 8:31 PM Normal [facility] LACTATE W/ REFLEXon 04-17-20 25 LACTATE W/REFLEX 0.7 mmol/L Normal 0.4-2.0 [facility] Comment on above: Order Comment: Resul t did not trigger repeat Lactate,re-order if needed. Performed By: #### C SUSIE, 1987-03, [employer], [employer]IVR, 58063-0, 06607-2, ENAP, 24720-8, AHP #### [facility] ([id number]) [address] [place] [address] POCT NURSING URINE MACROSCOP IC UAon 04-17-2025 BILIRUBIN SUSAN Negative Normal Negative [facility] Comment on above: Performed By: #### C SUSIE, 1987-03, [employer], LIVR, 75414-1, 81781-1, ENAP, 73345-7, AHP #### [facility] ([id number]) [address], [address] [place] [address] BLOOD/HGB SUSAN Negative Normal Negative [facility] Comment on above: Performed By: #### C SUSIE, 1987-03, [employer], LIVR, 35218-2, 30571-7, ENAP, 96761-5, AHP #### [facility] ([id number]) [address], [address] [place] [address] GLUCOSE SUSAN Negative Normal Negative [facility] Comment on above: Performed By: #### C BCA, 1987-03, [employer], LIVR, 68875-0, 63922-0, ENAP, 62350-1, AHP #### [facility] ([id number]) [address], [address] [place] [address] KETONES SUSAN Negative Normal Negative [facility] Comment on above: Performed By: #### C BCA, 1987-03, [employer], LIVR, 22909-1, 47859-9, ENAP, 61590-1, AHP #### [facility] ([id number]) [address], [address] [place] [address] LEUKOCYTE ESTERASE SUSAN Small Abnormal Negative Pr [facility] Comment on above: Performed By: #### C BCA, 1987-03, [employer], LIVR, 96100-7, 50763-8, ENAP, 29410-1, AHP #### [facility] ([id number]) [address], [address] [place] [address] NITRITE SUSAN Negative Normal Negative [facility] Comment on above: Performed By: #### C BCA, 1987-03, [employer], LIVR, 43048-9, 75274-7, ENAP, 19461-9, AHP #### [facility] ([id number]) [address], [address] [place] [address] PH SUSAN 7.5 Normal 5.0, 6.0, 6.5, 7.0, 7.5, 8.0, 8.5, 5.5 [facility] Comment on above: Performed By: #### C BCA, 1987-03, [employer], LIVR, 37158-6, 73567-0, ENAP, 80357-5, AHP #### [facility] ([id number]) [address], [address] [place] [address] PROTEIN SUSAN Trace Abnormal Negative [facility] Comment on above: Performed By: #### C BCA, 1987-03, [employer], LIVR, 89670-8, 23631-5, ENAP, 67878-8, AHP #### [facility] ([id number]) [address], [address] [place], [place] [address] SPECIFIC GRAVITY SUSAN 1.015 Normal 1.010, 1.015, 1.020, 1.025 [facility] Comment on above: Performed By: #### C SUSIE, 1987-03, [employer], LIVR, 35307-6, 53943-1, ENAP, 09834-5, AHP #### [facility] ([id number]) [address], [address] [place] [address] UROBILINOGEN SUSAN 0.2 E.U./dL Normal [facility] Comment on above: Performed By: #### C SUSIE, 1987-03, [employer], LIVR, 47546-8, 55116-3, ENAP, 59704-8, AHP #### [facility] ([id number]) [address], [address] [address] PROTIME AND INRon 04-17-2025 INR 1.0 Normal 0.9-1.2 [facility] Comment on above: Performed By: #### C BCA, 1987-03, [employer], LIVR, 60294-3, 00906-7, ENAP, 57732-9, AHP #### [facility] ([id number]) [address], [address] [place] [address] PT Coag (PPP) [Time] 11.2 s Normal 9.8-13.2 [facility] Comment on above: Performed By: #### C BCA, 1987-03, [employer], LIVR, 07730-3, 61519-5, ENAP, 03549-3, AHP #### [facility] ([id number]) [address], [address] [place] [address] T4, FREEon 04-17-2025 Free T4 [Mass/Vol] 1.46 ng/dL Normal 0.61-1.60 [facility] Comment on above: Performed By: #### C BCA, 1987-03, [employer], LIVR, 25121-5, 07812-2, ENAP, 52121-3, AHP #### [facility] ([id number]) [address], [address] [place] [address] TROP I, HIGH SENSITIVITY 1 H OURon 04-17-2025 TROPONIN I, HIGH SENSITIVITY 10 ng/L Normal <16 [facility] Comment on above: Performed By: #### C SUSIE, 1987-03, [employer], LIVR, 32920-4, 45913-4, ENAP, 44191-8, AHP #### [facility] ([id number]) [address], [address] [place] [address] TROPONIN I, HIGH SENSITIVITY 0 HOURon 04-17-2025 TROPONIN I, HIGH SENSITIVITY 10 ng/L Normal <16 [facility] Comment on above: Performed By: #### C BCA, 1987-03, [employer], LIVR, 45256-7, 10840-4, ENAP, 69896-4, AHP #### [facility] ([id number]) [address], [address] [place] [address] TSHon 04-17-2025 TSH 1.57 uIU/mL Normal 0.49-4.67 [facility] Comment on above: Performed By: #### C SUSIE, 1987-03, [employer], LIVR, 56229-5, 01166-3, ENAP, 73910-8, AHP #### [facility] ([id number]) [address], [address] [place] [address] MR BREAST BILAT W WO CONT W CADon 02-27-2025 MR BREAST BILAT W WO CONT W CAD MR BREAST BILAT W WO CONT W CAD BEENA DIAZ 1950 [id number] EXAM: MR BREAST BILAT W WO CONT [...] image and subtraction processing were performed using [employer] software. Additional silicone selective sequence added for [...] on 02/27/2025 2:51 PM 1 RETURN TO SD Normal [facility] [place] AMB CERVICAL EPIDURALon 0 02-13-2025 [...] Cordero MD on 02/13/2025 2:05 PM Normal [facility] DEXA SCAN CENTRAL SKELETALon [...] Valencia MD on 02/10/2025 5:45 AM Normal [facility] CBC AND AUTO DIFFon 02-03-20 ABSOLUTE BASOPHIL 0.0 X10E9/L Normal 0.0-0.2 [facility] Comment on above: Performed By: #### C SUSIE, CMP, 37069-3 ####[facility] ([id number])[address], [address] [place] [address] ABSOLUTE NEUTROPHIL 3.4 X10E9/L Normal 1.5-6.6 [facility] Comment on above: Performed By: #### C RENEE RICHARDS, 18639-8 ####[facility] ([id number])[address] [address] [place] [address] Basophils/100 WBC (Bld) 0.3 % Normal [facility] Comment on above: Performed By: #### Nicolás RICHARDS CMP, 78040-2 ####[facility] ([id number])[address] [address] [address] Eosinophils (Bld) [#/Vol] 0.3 10*3/uL Normal 0.0-0.4 [facility] Comment on above: Performed By: #### Nicolás RICHARDS CMP, 10015-6 ####[facility] ([id number])[address] [address] [address] Eosinophils/100 WBC (Bld) 4.7 % Normal [facility] Comment on above: Performed By: #### Nicolás RICHARDS CMP, 57683-4 ####[facility] ([id number])[address] [address] [place] [address] Erythrocyte distribution width (RBC) [Ratio] 15.7 % High 11.5-15.0 [facility] Comment on above: Performed By: #### Nicolás RICHARDS CMP, 59516-2 ####[facility] ([id number])[address] [address] [place] [address] Hematocrit (Bld) [Volume fraction] 38.8 % Normal 35-47 [facility] Comment on above: Performed By: #### Nicolás RICHARDS CMP, 48370-5 ####[facility] ([id number])[address] [address] [place] [address] Hemoglobin (Bld) [Mass/Vol] 12.9 g/dL Normal 11.7-15.5 [facility] Comment on above: Performed By: #### C SUSIE CMP, 56975-2 ####[facility] ([id number])[address] [address] Lymphocytes (Bld) [#/Vol] 1.4 10*3/uL Normal 1.0-3.5 [facility] Comment on above: Performed By: #### C SUSIE, CMP, 55909-5 ####[facility] ([id number])[address], [address] [address] Lymphocytes/100 WBC (Bld) 24.9 % Normal [facility] Comment on above: Performed By: #### Nicolás RICHARDS, CMP, 56977-8 ####[facility] ([id number])[address], [address] [address] MCH (RBC) [Entitic mass] 30.8 pg Normal 27-34 [facility] Comment on above: Performed By: #### C SUSIE, CMP, 60371-3 ####[facility] ([id number])[address], [address] [address] MCHC (RBC) [Mass/Vol] 33.3 g/dL Normal 32-36 [facility] Comment on above: Performed By: #### Nicolás RICHARDS CMP, 14603-0 ####[facility] ([id number])[address], [address] [address] MCV (RBC) [Entitic vol] 92 fL Normal 80-100 [facility] Comment on above: Performed By: #### C SUSIE, CMP, 66391-1 ####[facility] ([id number])[address] [address] [place] [address] Monocytes (Bld) [#/Vol] 0.5 10*3/uL Normal 0-0.9 [facility] Comment on above: Performed By: #### C BCA, CMP, 69884-6 ####[facility] [place] [facility] ([id number])[address], [address], [place] [address] Monocytes/100 WBC (Bld) 8.9 % Normal [facility] Comment on above: Performed By: #### Nicolás RICHARDS, CMP, 79579-7 ####[facility] [place] [facility] ([id number])[address], [address], [place] [address] Neutrophils/100 WBC (Bld) 61.2 % Normal [facility] Comment on above: Performed By: #### C SUSIE, CMP, 89767-4 ####[facility] [place] [facility] ([id number])[address], [address], [place] [address] Platelet mean volume (Bld) [Entitic vol] 9.5 fL Normal 7-12 [facility] Comment on above: Performed By: #### Nicolás RICHARDS, CMP, 59121-8 ####[facility] [place] [facility] ([id number])[address], [address], [place] [address] Platelets (Bld) [#/Vol] 220 10*3/uL Normal 150-450 [facility] Comment on above: Performed By: #### Nicolás RICHARDS, CMP, 73349-9 ####[facility] [place] [facility] ([id number])[address], [address], [place] [address] RBC COUNT 4.20 X10E12/L Normal 3.80-5.20 [facility] Comment on above: Performed By: #### Nicolás BCA, CMP, 43826-9 ####[facility] [facility] ([id number])[address], [address], [place] [address] WBC (Bld) [#/Vol] 5.5 10*3/uL Normal 4.0-11.0 [facility] Comment on above: Performed By: #### Nicolás BCA, CMP, 79320-3 ####[facility] [place] [facility] ([id number])[address], [address], [place] [address] COMPREHENSIVE METABOLIC PANE Martin 02-02-2025 Albumin [Mass/Vol] 4.5 g/dL Normal 3.2-5.3 [facility] Comment on above: Performed By: #### C SUSIE, CMP, 66572-5 ####[facility] [place] [facility] ([id number])[address], [address], [place] [address] ALP [Catalytic activity/Vol] 66 U/L Normal 39-130 [facility] Comment on above: Performed By: #### C SUSIE, CMP, 45480-4 ####[facility] [place] [facility] ([id number])[address], [address], [place] [address] ALT [Catalytic activity/Vol] 8 U/L Normal 0-31 [facility] Comment on above: Performed By: #### C SUSIE, CMP, 47546-4 ####[facility] [place] [facility] ([id number])[address], [address], [place] [address] Anion gap [Moles/Vol] 8 mmol/L Normal 5-15 [facility] Comment on above: Performed By: #### C SUSIE CMP, 82871-3 ####[facility] [place] [facility] ([id number])[address], [address], [place] [address] AST [Catalytic activity/Vol] 27 U/L Normal 0-41 [facility] Comment on above: Performed By: #### C SUSIE, CMP, 43730-2 ####[facility] [place] [facility] ([id number])[address], [address], [place] [address] Bilirubin [Mass/Vol] 1.7 mg/dL High 0.3-1.2 [facility] Comment on above: Performed By: #### C BCA, CMP, 21710-6 ####[facility] [place] [facility] ([id number])[address], [address], [place] [address] Calcium [Mass/Vol] 9.7 mg/dL Normal 8.5-10.5 [facility] Comment on above: Performed By: #### C BCA CMP, 98164-7 ####[facility] [facility] ([id number])[address] [address] [place] [address] Chloride [Moles/Vol] 99 mmol/L Normal 98-109 [facility] Comment on above: Performed By: #### C SUSIE CMP, 35814-3 ####[facility] ([id number])[address] [place] [address] CO2 [Moles/Vol] 32 mmol/L Normal 22-32 [facility] Comment on above: Performed By: #### C SUSIE, CMP, 36195-6 ####[facility] ([id number])[address] [address] [address] Creatinine [Mass/Vol] 0.74 mg/dL Normal 0.40-1.00 [facility] Comment on above: Result Comment: METH OD TRACEABLE TO IDMS STANDARD Performed By: #### C RENEE RICHARDS, 73273-9 ####[facility] [facility] ([id number])[address] [address] GFR/1.73 sq M.predicted among non-blacks MDRD (S/P/Bld) [Vol rate/Area] 85 mL/min/{1.73_m2} Normal >59 [facility] Comment on above: Result Comment: Reported eGFR is based on the CKD-EPI 2020 equation that does not use a race coefficient. Performed By: #### C BCA, CMP, 82673-5 ####[facility] ([id number])[address] [address] [place] [address] Glucose [Mass/Vol] 88 mg/dL Normal 65-99 [facility] Comment on above: Performed By: #### C BCA, CMP, 12726-1 ####[facility] ([id number])[address] [address] [address] Potassium [Moles/Vol] 4.0 mmol/L Normal 3.5-5.0 [facility] Comment on above: Performed By: #### Nicolás RICHARDS CMP, 49793-9 ####[facility] ([id number])[address] [place] [address] Protein [Mass/Vol] 7.2 g/dL Normal 6.0-8.0 [facility] Comment on above: Performed By: #### Nicolás RICHARDS CMP, 49686-3 ####[facility] [facility] ([id number])[address], [address] [place] [address] Sodium [Moles/Vol] 139 mmol/L Normal 134-146 [facility] Comment on above: Performed By: #### Nicolás RICHARDS CMP, 71526-1 ####[facility] [facility] ([id number])[address], [address] [address] Urea nitrogen [Mass/Vol] 16 mg/dL Normal 5-27 [facility] Comment on above: Performed By: #### Nicolsá RICHARDS, CMP, 40337-4 ####[facility] ([id number])[address], [address] [place] [address] Lipid 1996 panelon 5 Cholesterol [Mass/Vol] 154 mg/dL Normal 150-200 [facility] Comment on above: Performed By: #### Nicolás RICHARDS, CMP, 40310-7 ####[facility] [place] [facility] ([id number])[address], [address] [address] Cholesterol in HDL [Mass/Vol] 79 mg/dL Normal >39 [facility] Comment on above: Result Comment: HDL <40 mg/dL - High Risk HDL > or = 40mg/dL- Desirable HDL >60 mg/dL - Negative Risk Performed By: #### C BCA, CMP, 85992-1 ####[facility] [place] [facility] ([id number])[address], [address] [address] Cholesterol in LDL [Mass/Vol] 64 mg/dL Normal <130 [facility] Comment on above: Result Comment: LDL <100 mg/dL - Desirable LDL >160 mg/dL - High Risk Performed By: #### Nicolás BCA, CMP, 97796-8 ####[facility] [place] [facility] ([id number])[address], [address] [place] [address] Cholesterol in VLDL [Mass/Vol] 11 mg/dL Normal 0-30 [facility] Comment on above: Performed By: #### Nicolás BCA, CMP, 16494-5 ####[facility] [place] [facility] ([id number])[address], [address] [place] [address] CHOLESTEROL:HDL 1.9 Normal 1.0-5.0 [facility] Comment on above: Performed By: #### Nicolás BCA, CMP, 28621-1 ####[facility] [place] [facility] ([id number])[address], [address] [place] [address] Triglyceride [Mass/Vol] 54 mg/dL Normal 27-150 [facility] Comment on above: Performed By: #### C BCA, CMP, 86651-4 ####[facility] [place] [facility] ([id number])[address], [address] [place] [address] URINALYSISon 02-02-2025 Bilirubin Ql (U) Negative Normal [facility] Comment on above: Performed By: #### U A ####[facility] [place] [facility] ([id number])[address], [address] [place] [address] BLOOD/HGB Negative Normal NEG [facility] Comment on above: Performed By: #### U A ####[facility] [place] [facility] ([id number])[address], [address] [address] Color (U) YELLOW Normal YELLOW [facility] Comment on above: Performed By: #### U A ####[facility] [place] [facility] ([id number])[address], [address] [address] Glucose Ql (U) Negative Normal NEG [facility] Comment on above: Performed By: #### U A ####[facility] [place] [facility] ([id number])[address] [place] [address] Ketones Ql (U) Negative Normal NEG [facility] Comment on above: Performed By: #### U A ####[facility] [place] [facility] ([id number])[address], [address] [place] [address] Leukocyte esterase Test strip Ql (U) Negative Normal NEG [facility] Comment on above: Performed By: #### U A ####[facility] [place] [facility] ([id number])[address] [place] [address] MUCOUS PRESENT Abnormal NONE [facility] Comment on above: Performed By: #### U A ####[facility] [place] [facility] ([id number])[address], [address] [address] Nitrite Ql (U) Negative Normal NEG [facility] Comment on above: Performed By: #### U A ####[facility] [place] [facility] ([id number])[address], [address] [place] [address], [place] [address] pH (U) 7.0 [pH] Normal 5.0-8.5 [facility] Comment on above: Performed By: #### U A ####[facility] [place] [facility] ([id number])[address] [address] [place] [address] Protein Ql (U) Trace Abnormal NEG [facility] Comment on above: Performed By: #### U A ####[facility] [place] [facility] ([id number])[address] [address] [place] [address] R.B.CELLS <1 Normal 0-5 [facility] Comment on above: Performed By: #### U A ####[facility] [place] [facility] ([id number])[address] [address] [place] [address] Specific gravity (U) [Rel density] 1.022 Normal 1.003-1.035 [facility] Comment on above: Performed By: #### U A ####[facility] [place] [facility] ([id number])[address] [address] [place] [address] SQUAMOUS EPITHELIUM 1 /hpf Normal 0-5 [facility] Comment on above: Performed By: #### U A ####[facility] [place] [facility] ([id number])[address] [address] [place] [address] TURBIDITY CLEAR Normal CLEAR [facility] Comment on above: Performed By: #### U A ####[facility] [facility] ([id number])[address] [address] [place] [address] Urobilinogen (U) [Mass/Vol] mg/dL Normal <1.1 [facility] Comment on above: Performed By: #### U A ####[facility] [place] [facility] ([id number])[address] [address] [place] [address] W.B.CELLS 1 /hpf Normal 0-5 [facility] Comment on above: Performed By: #### U A ####[facility] [place] [facility] ([id number])[address] [address] [place] [address] [place] AMB CERVICAL EPIDURALon 0 01-30-2025 FL [...] Kendall MD on 01/30/2025 4:41 PM Normal [facility] XR SPINE CERVICAL FLEXION/EX [...] Hannon MD on 01/23/2025 8:12 PM Normal [facility] MR CERVICAL SPINE WO CONTon 12-27-2024 [...] Paradise Palacios MD on 12/27/2024 8:02 AM [facility] XR SPINE CERVICAL 3 VWS OR L [...] Truman Hannon MD on 12/07/2024 10:56 AM [facility] PPG tpion 12-06-2024 CIARRA Hernandez [...] Complications: none Interventions: none MANUALLY TRANSCRIBED RESULTS [facility] ACUTE HEPATITIS PANELon 11-10 ANTI HCV W/PCR REFLX Non-Reactive Normal NRCT Pr [facility] Comment on above: Result Comment: NEW TEST METHOD NOTE If recent infection suspected, recommend repeat testing (>2 months). Kxjoaa-cu-eccnxg ratio is <1.00. Performed By: #### C SUSIE, 1987-03, [employer], LIVR, 60503-6, 69996-9, ENAP, 99988-4, AHP ####[facility] [place] [facility] ([id number])[address], [address] [place] [address] HEPATITIS A IGM Non-Reactive Normal NRCT [facility] Comment on above: Result Comment: NEW TEST METHOD Performed By: #### C SUSIE, 1987-03, [employer], LIVR, 28477-8, 75000-6, ENAP, 40960-4, AHP ####[facility] [place] [facility] ([id number])[address], [address] [place] [address] HEPATITIS B CORE IGM Non-Reactive Normal NRCT [facility] Comment on above: Result Comment: NEW TEST METHOD Performed By: #### C SUSIE, 1987-03, [employer], LIVR, 36588-9, 02010-8, ENAP, 26475-3, AHP ####[facility] [place] [facility] ([id number])[address], [address] [place] [address] HEPATITIS B SURF AG Non-Reactive Normal NRCT Pro [facility] Comment on above: Result Comment: NEW TEST METHOD Performed By: #### C SUSIE, 1987-03, [employer], LIVR, 64764-7, 78955-4, ENAP, 07500-2, AHP ####[facility] [place] [facility] ([id number])[address] [place] [address] Antinuclear AB, HE-p Substra te, (PJ by IFA)on 11-29-2024 Antinuclear Ab, HEp-2 Substrate, S Negative Normal <1:80 (Negative) [facility] Comment on above: Result Comment: NOTE ADDITIONAL INFORMATION Method: Immunofluorescence using HEp-2 cellular substrate. Test Performed by: [facility] [address] [place] [address] Pulley Man: Sam Dukes Ph.D.; CLIA# [id number] Performed By: #### C SUSIE, 1987-03, [employer], LIVR, 39187-3, 95021-0, ENAP, 45871-2, AHP ####[facility] [place] [facility] ([id number])[address] [place] [address] C REACTIVE PROTEINon 025 CRP [Mass/Vol] mg/L Normal 0.000-0.744 [facility] Comment on above: Performed By: #### C SUSIE, 1987-03, [employer], LIVR, 61318-8, 02285-9, ENAP, 08566-4, P #### [facility] [place] [facility] ([id number]) [address] [place] [address] CBC AND AUTO DIFFon 11-29-19 25 ABSOLUTE BASOPHIL 0.0 X10E9/L Normal 0.0-0.2 [facility] Comment on above: Performed By: #### C SUSIE, 1987-03, [employer], LIVR, 14455-3, 97102-3, ENAP, 05597-6, AHP #### [facility] [place] [facility] ([id number]) [address], [address] [place] [address] ABSOLUTE NEUTROPHIL 2.8 X10E9/L Normal 1.5-6.6 [facility] Comment on above: Performed By: #### C SUSIE, 1987-03, [employer], LIVR, 02148-9, 13123-9, ENAP, 22076-8, AHP #### [facility] [place] [facility] ([id number]) [address], [address] [place] [address] Basophils/100 WBC (Bld) 0.7 % Normal [facility] Comment on above: Performed By: #### C SUSIE, 1987-03, [employer], LIVR, 67808-2, 93030-5, ENAP, 96097-6, AHP #### [facility] [place] [facility] ([id number]) [address], [address] [place] [address] Eosinophils (Bld) [#/Vol] 0.3 10*3/uL Normal 0.0-0.4 [facility] Comment on above: Performed By: #### C SUSIE, 1987-03, [employer], LIVR, 72591-2, 79635-6, ENAP, 22645-5, AHP #### [facility] ([id number]) [address], [address] [place] [address] Eosinophils/100 WBC (Bld) 5.6 % Normal [facility] Comment on above: Performed By: #### C SUSIE, 1987-03, [employer], LIVR, 68039-9, 66229-6, ENAP, 43858-9, AHP #### [facility] ([id number]) [address], [address] [place] [address] Erythrocyte distribution width (RBC) [Ratio] 15.1 % High 11.5-15.0 [facility] Comment on above: Performed By: #### C SUSIE, 1987-03, [employer], LIVR, 26115-3, 61060-7, ENAP, 15486-9, AHP #### [facility] ([id number]) [address], [address] [place] [address] Hematocrit (Bld) [Volume fraction] 38.1 % Normal 35-47 [facility] Comment on above: Performed By: #### C SUSIE, 1987-03, [employer], LIVR, 89878-1, 46495-4, ENAP, 64112-0, AHP #### [facility] ([id number]) [address], [address] [place] [address] Hemoglobin (Bld) [Mass/Vol] 12.8 g/dL Normal 11.7-15.5 [facility] Comment on above: Performed By: #### C SUSIE, 1987-03, [employer], LIVR, 51386-6, 46082-6, ENAP, 47177-5, AHP #### [facility] ([id number]) [address] [facility] [address] [place] [address] Lymphocytes (Bld) [#/Vol] 1.9 10*3/uL Normal 1.0-3.5 [facility] Comment on above: Performed By: #### C SUSIE, 1987-03, [employer], LIVR, 54291-1, 85374-4, ENAP, 08583-0, AHP #### [facility] ([id number]) [address] [address] [place] [address] Lymphocytes/100 WBC (Bld) 32.8 % Normal [facility] Comment on above: Performed By: #### Nicolás RICHARDS, 1987-03, [employer], LIVR, 51490-9, 94669-5, ENAP, 85927-8, AHP #### [facility] ([id number]) [address], [address] [place] [address] MCH (RBC) [Entitic mass] 29.9 pg Normal 27-34 [facility] Comment on above: Performed By: #### C SUSIE, 1987-03, [employer], LIVR, 28754-5, 85230-6, ENAP, 86598-8, AHP #### [facility] ([id number]) [address], [address] [place] [address] MCHC (RBC) [Mass/Vol] 33.6 g/dL Normal 32-36 [facility] Comment on above: Performed By: #### C SUSIE, 1987-03, [employer], LIVR, 34050-7, 48904-7, ENAP, 77010-6, AHP #### [facility] ([id number]) [address], [address] [place] [address] MCV (RBC) [Entitic vol] 89 fL Normal 80-100 [facility] Comment on above: Performed By: #### Nicolás RICHARDS, 1987-03, [employer], LIVR, 32711-6, 63014-8, ENAP, 35065-7, AHP #### [facility] LAB ([id number]) [address], [address] [place] [address] Monocytes (Bld) [#/Vol] 0.6 10*3/uL Normal 0-0.9 [facility] Comment on above: Performed By: #### Nicolás RICHARDS, 1987-03, [employer], LIVR, 22467-4, 80663-0, ENAP, 15047-9, AHP #### [facility] ([id number]) [address], [address] [place] [address] Monocytes/100 WBC (Bld) 10.7 % Normal [facility] Comment on above: Performed By: #### Nicolás RICHARDS, 1987-03, [employer], LIVR, 98626-4, 14958-7, ENAP, 56449-2, AHP #### [facility] ([id number]) [address], [facility] [address] [place] [address] Neutrophils/100 WBC (Bld) 50.2 % Normal [facility] Comment on above: Performed By: #### C SUSIE, 1987-03, [employer], LIVR, 09100-0, 46038-1, ENAP, 59536-6, AHP #### [facility] ([id number]) [address], [address] [place] [address] Platelet mean volume (Bld) [Entitic vol] 9.4 fL Normal 7-12 [facility] Comment on above: Performed By: #### C SUSIE, 1987-03, [employer], LIVR, 96646-0, 49017-0, ENAP, 28112-8, AHP #### [facility] ([id number]) [address], [address] [place] [address] Platelets (Bld) [#/Vol] 213 10*3/uL Normal 150-450 [facility] Comment on above: Performed By: #### C SUSIE, 1987-03, [employer], LIVR, 35062-8, 23364-2, ENAP, 65212-6, AHP #### [facility] ([id number]) [address], [facility] [address] [place] [address] RBC COUNT 4.28 X10E12/L Normal 3.80-5.20 [facility] Comment on above: Performed By: #### Nicolás RICHARDS, 1987-03, [employer], LIVR, 45170-2, 02640-9, ENAP, 03984-9, AHP #### [facility] ([id number]) [address], [address] [place] [address] WBC (Bld) [#/Vol] 5.7 10*3/uL Normal 4.0-11.0 [facility] Comment on above: Performed By: #### Nicolás RICHARDS, 1987-03, [employer], LIVR, 78056-8, 44353-0, ENAP, 92614-5, AHP #### [facility] ([id number]) [address] [facility] [place] [address] CREATININEon 11-29-2024 Creatinine [Mass/Vol] 0.82 mg/dL Normal 0.40-1.00 [facility] Comment on above: Result Comment: METH OD TRACEABLE TO IDMS STANDARD Performed By: #### C BCA, 1987-03, [employer], LIVR, 43424-4, 81206-7, ENAP, 04503-4, AHP #### [facility] ([id number]) [address] [facility] [facility], [address] [place] [address] GFR/1.73 sq M.predicted among non-blacks MDRD (S/P/Bld) [Vol rate/Area] 75 mL/min/{1.73_m2} Normal >59 [facility] Comment on above: Result Comment: Reported eGFR is based on the CKD-EPI 2020 equation that does not use a race coefficient. Performed By: #### C BCA, 1987-03, [employer], LIVR, 63254-4, 40270-4, ENAP, 56257-9, AHP #### [facility] ([id number]) [address] [facility], [address] [place] [address] DNA double strand IgG IF Cri thidia luciliae (S) [Titer]on 11-29-2024 Crithidia Interpretation See Note Normal [facility] Comment on above: Result Comment: NOTE Testing for dsDNA antibody by Crithidia IFA was negative. Test Performed by: [facility] [address] [facility], [place] [address] Pulley Man: Sam Dukes Ph.D.; CLIA# [id number] Performed By: #### C BCA, 1987-03, [employer], LIVR, 24780-3, 55366-1, ENAP, 21623-6, AHP ####[facility] ([id number])[address], [address] [address] dsDNA Ab by Zully IFA, IgG, S Negative Normal Negative [facility] Comment on above: Performed By: #### C SUSIE, 1987-03, [employer], LIVR, 04976-1, 80308-3, ENAP, 67411-8, AHP ####[facility] ([id number])[address], [address] [address] GAETANO PANELon 11-29-2024 ANTI-ZAPATA AB IGG <0.2 Normal <1.0 [facility] Comment on above: Performed By: #### C SUSIE, 1987-03, [employer], LIVR, 46193-6, 52431-6, ENAP, 45790-0, AHP #### [facility] ([id number]) [address], [address] [place] [address] JO1 ANTIBODY <0.2 Normal <1.0 [facility] Comment on above: Performed By: #### C SUSIE, 1987-03, [employer], LIVR, 40555-7, 00752-2, ENAP, 02530-6, AHP #### [facility] ([id number]) [address], [address] [place] [address] TESTING ENGINEER ANTIBODY IGG 0.2 AI Normal <1.0 [facility] Comment on above: Performed By: #### C SUSIE, 1987-03, [employer], LIVR, 92651-8, 11640-7, ENAP, 98304-3, AHP #### [facility] ([id number]) [address], [address] [place] [address] SCL 70 ANTIBODY <0.2 Normal <1.0 [facility] Comment on above: Performed By: #### C SUSIE, 1987-03, [employer], LIVR, 01727-7, 93909-5, ENAP, 55103-7, AHP #### [facility] ([id number]) [address], [address] [place] [address] SSA ANTIBODY <0.2 Normal <1.0 [facility] Comment on above: Performed By: #### C BCA, 1987-03, [employer], LIVR, 90140-7, 46898-2, ENAP, 21436-5, AHP #### [facility] ([id number]) [address], [facility] [address] [place] [address] SSB ANTIBODY <0.2 Normal <1.0 [facility] Comment on above: Performed By: #### C BCA, 1987-03, [employer], LIVR, 23480-9, 50038-0, ENAP, 34845-8, AHP #### [facility] ([id number]) [address], [address] [address] ESR Photometric method (Bld) [Velocity]on 11-29-2024 ESR, ERYTHROCYTE SEDIMENTATION RATE 48 mm/h High 0-30 [facility] Comment on above: Performed By: #### C BCA, 1987-03, [employer], LIVR, 89985-2, 74902-3, ENAP, 89616-1, AHP #### [facility] ([id number]) [address], [address] [address] LIVER PANELon 11-29-2024 Albumin [Mass/Vol] 4.5 g/dL Normal 3.2-5.3 [facility] Comment on above: Performed By: #### C BCA, 1987-03, [employer], LIVR, 85619-3, 55122-5, ENAP, 23728-7, AHP #### [facility] ([id number]) [address], [address] [address] ALP [Catalytic activity/Vol] 66 U/L Normal 39-130 [facility] Comment on above: Performed By: #### C BCA, 1987-03, [employer], LIVR, 27441-0, 64127-2, ENAP, 52536-1, AHP #### [facility] ([id number]) [address], [address] [place] [address] ALT [Catalytic activity/Vol] 14 U/L Normal 0-31 [facility] Comment on above: Performed By: #### C BCA, 1987-03, [employer], LIVR, 10361-1, 28224-3, ENAP, 75878-0, AHP #### [facility] ([id number]) [address], [address] [place] [address] AST [Catalytic activity/Vol] 26 U/L Normal 0-41 [facility] Comment on above: Performed By: #### C BCA, 1987-03, [employer], LIVR, 34458-3, 30615-3, ENAP, 92427-5, AHP #### [facility] ([id number]) [address], [address] [place] [address] Bilirubin [Mass/Vol] 0.9 mg/dL Normal 0.3-1.2 [facility] Comment on above: Performed By: #### C BCA, 1987-03, [employer], LIVR, 98386-5, 36917-9, ENAP, 35747-2, AHP #### [facility] ([id number]) [address], [address] [place] [address] Bilirubin.direct [Mass/Vol] 0.2 mg/dL Normal 0.0-0.4 [facility] Comment on above: Performed By: #### C BCA, 1987-03, [employer], LIVR, 75800-4, 41575-9, ENAP, 57316-3, AHP #### [facility] ([id number]) [address], [address] [place] [address] Protein [Mass/Vol] 7.4 g/dL Normal 6.0-8.0 [facility] Comment on above: Performed By: #### C BCA, 1987-03, [employer], LIVR, 74383-5, 68314-8, ENAP, 99102-0, P #### [facility] ([id number]) [address] [facility], [address] [place] [address] M. tuberculosis stim IFN-g p alissa (Bld)on 11-29-2024 Mitogen minus Nil Result 0.00 IU/mL Normal [facility] Nil Result 0.01 IU/mL Normal [facility] Comment on above: Result Comment: NOTE Test Performed by: [facility] [address] [place] [address] Pulley Man: Sam Dukes Ph.D.; CLIA# [id number] QuantiFERON-Tb Gold Plus Result Indeterminate Abnormal Negative [facility] Comment on above: Result Comment: NOTE Indeterminate due to a low interferon-gamma level in the mitogen (positive control) tube. This may occur due to a low lymphocyte count, reduced lymphocyte activity or inability of the patient's lymphocytes to generate interferon-gamma. The reference range for the 'Mitogen minus Nil Result' is >=0.5 IU/mL. TB1 Ag minus Nil Result 0.01 IU/mL Normal [facility] TB2 Ag minus Nil Result 0.01 IU/mL Normal [facility] Rheumatoid factor Nephelomet ry Qn (S)on 11-29-2024 RHEUMATOID FACTOR <10 Normal <20 [facility] Comment on above: Performed By: #### C BCA, 1987-03, [employer], LIVR, 23104-8, 43127-0, ENAP, 87602-9, P #### [facility] ([id number]) [address] [facility] [place] [address] MAMM DIAGNOSTIC BILATERAL W CADon 11-04-2024 MAMM DIAGNOSTIC BILATERAL W CAD MAMM DIAGNOSTIC BILATERAL W CAD BEENA EDWARDS JOE 1950 [id number], [id number] EXAM: MAMM DIAGNOSTIC BILATERAL W CAD, US [...] AM 2 d MAMM 1 YR Normal [facility] US BREAST RT LIMITEDon 12-27 -2024 US BREAST RT LIMITED US BREAST RT LIMITE Manjula DIAZ 1950 [id number], [id number] EXAM: MAMM DIAGNOSTIC BILATERAL W CAD, US [...] AM 2 d MAMM 1 YR Normal [facility] XR CHEST 2 VWSon 08-10-2024 XR CHEST 2 VWS XR CHEST 2 VWS CLINICAL INFORMATION: . Chronic obstructive pulmonary disease, unspecified COPD type ([facility]). TECHNIQUE/PROCEDURE: Two view chest. COMPARISON: 01/25/2022 FINDINGS: No tracheal deviation. Cardiac and mediastinal contours normal. No pneumothorax or free air. No pleural effusion or focal consolidation. Emphysema. IMPRESSION: * Emphysema with no superimposed acute cardiopulmonary disease. Finalized by Francesco Lyons MD on 08/10/2024 12:36 PM Normal [facility] SED RATE - CRPon 07-19-2024 CRP EXTENDED RANGE <0.34 Normal (0.00 - 3.20) [facility] Comment on above: Order Comment: FACIL ITY: [facility] - [id number] Result Comment: CRP RESULT IS <0.34 MG/L CRP MIN DETECTION = 0.34 MG/L Performed By: #### C BC/2A, MSEP, ANAFX, ACAX3, ESRCRP, TSHFX, VD25, CCP, RHF, URCA #### [facility] [address] [facility], [id number] SED RATE WEST. 33 MM/HR High (0 - 25) [facility] Comment on above: Order Comment: FACIL ITY: [facility] - [id number] Performed By: #### C BC/2A, MSEP, ANAFX, ACAX3, ESRCRP, TSHFX, VD25, CCP, RHF, URCA #### [facility] [address] [facility], [address] XR HAND LEFT (MIN 3 VIEWS)on [...] Ashok Pelayo MD 06/30/24 Final result Normal [facility] XR HAND RIGHT (MIN 3 [...] Ashok Pelayo MD 06/30/24 Final result Normal [facility] XR WRIST LEFT (MIN 3 [...] Ashok Pelayo MD 06/30/24 Final result Normal [facility] XR WRIST RIGHT (MIN 3 [...] Ashok Pelayo MD 06/30/24 Final result Normal [facility] XR Wrist - left 3 Viewson No acute osseous abnormality. Mild degenerative changes in the 1st CMC joint [facility] CONSOLIDATED EXAMINATION: 3 XRAY VIEWS [...] degenerative changes in the 1st CMC joint. [facility] CONSOLIDATED Ashok Pelayo MD - 06/30/2024 [...] degenerative changes in the 1st CMC joint [facility] XR Wrist - left 3 ViewsOrder ed By: Ashok Pelayo on 06-30-2024 [facility] Work Phone: XR Wrist - left 3 Viewson Radiology Study observation (narrative) [facility] DEXA BONE DENSITY AXIAL SKEL ETONon 06-22-2024 DEXA BONE DENSITY AXIAL SKELETON EXAMINATION: BONE DENSITOMETRY 06/21/2024 10:34 am TECHNIQUE: A bone density dual x-ray absorptiometry (DXA) scan was performed of the lumbar spine and left hip on a [employer] system. COMPARISON: None. HISTORY: ORDERING SYSTEM PROVIDED HISTORY: Osteopenia after menopause Gender: F Age: 73 y/o FINDINGS: LUMBAR SPINE: L1, L3 BMD: 1.224 g/cm2 T-score: 0.4 Z-score: 2.8 LEFT TOTAL HIP: BMD: 0.911 g/cm2 T-score: -0.8 Z-score: 1.4 LEFT FEMORAL NECK: BMD: 0.834 g/cm2 T-score: -1.5 Z-score: 0.8 FRAX 10-YEAR PROBABILITY OF FRACTURE: 10-year fracture risk is performed using the [employer] FRAX calculator based on patient-reported risk factors. [...] Franky Fuentes MD 06/22/24 Final result Normal [facility] JOSE DIGITAL SCREEN SELF REFERRAL W OR WO CAD BILATERALon 01-15-2024 [facility] JOSE DIGITAL SCREEN SELF REFERRAL W OR [...] to the patient regarding the results. [employer] recommends annual mammograms for women 40 years and older. Interpreted by: Armaan Veronica DO Signed by: Armaan Veronica DO 01/15/24 Final result Normal [facility] SED RATE - CRPon 12-09-2023 CRP EXTENDED RANGE <0.34 Normal (0.00 - 3.20) [facility] Comment on above: Order Comment: 1LAV 1SSTFACILITY: [facility] - [id number] Result Comment: CRP RESULT IS <0.34 MG/L CRP MIN DETECTION = 0.34 MG/L Performed By: #### C BC/2A, MSEP, ANAFX, ACAX3, ESRCRP, TSHFX, VD25, CCP, RHF, URCA #### [facility] [address] [facility], [address] SED RATE WEST. 77 MM/HR High (0 - 25) [facility] Comment on above: Order Comment: 1LAV 1SSTFACILITY: [facility] - [id number] Performed By: #### C BC/2A, MSEP, ANAFX, ACAX3, ESRCRP, TSHFX, VD25, CCP, RHF, URCA #### [facility] [address] [facility], [address] PJ WITH REFLEX GAETANO TESTSon 09-28-2023 PJ by HEp-2 CELLS Negative Normal (NEG - NEG) [facility] Comment on above: Performed By: #### C BC/2A, MSEP, ANAFX, ACAX3, ESRCRP, TSHFX, VD25, CCP, RHF, URCA #### [facility] [facility], [address] PJ TITER 1:40 Normal (<1:40 - 1:40) [facility] Comment on above: Performed By: #### C BC/2A, MSEP, ANAFX, ACAX3, ESRCRP, TSHFX, VD25, CCP, RHF, URCA #### [facility] [address] [facility], [address] GAETANO-6 REFLEXED NO Normal () [facility] Comment on above: Performed By: #### C BC/2A, MSEP, ANAFX, ACAX3, ESRCRP, TSHFX, VD25, CCP, RHF, URCA #### [facility] [address] [facility], [address] CARDIOLIPIN IGG, IGA, IGMon 09-28-2023 CYNDIE, IgA 3.0 U/mL Low (14.0 - 20.0) [facility] Comment on above: Performed By: #### C BC/2A, MSEP, ANAFX, ACAX3, ESRCRP, TSHFX, VD25, CCP, RHF, URCA #### [facility] [address] [facility], [address] CYNDIE, IgG 1.4 U/mL Low (10.0 - 40.0) [facility] Comment on above: Performed By: #### C BC/2A, MSEP, ANAFX, ACAX3, ESRCRP, TSHFX, VD25, CCP, RHF, URCA #### [facility] [address] [facility], [address] CYNDIE, IgM 40.0 U/mL Normal (10.0 - 40.0) [facility] Comment on above: Result Comment: Resu lt between 10.0 - 40.0 U/mL is considered weak positive -recommend retesting the patient after 8 - 12 weeks. Performed By: #### C BC/2A, MSEP, ANAFX, ACAX3, ESRCRP, TSHFX, VD25, CCP, RHF, URCA #### [facility] [address] [facility], [id number] CBC, ALB, ALT, AST, ALK AND CREAon 09-28-2023 Albumin [Mass/Vol] 4.5 g/dL Normal (3.5 - 5.0) [facility] Comment on above: Order Comment: FACIL ITY: [facility] - SECOR [id number] Performed By: #### C BC/2A, MSEP, ANAFX, ACAX3, ESRCRP, TSHFX, VD25, CCP, RHF, URCA #### [facility] [address] [facility], [id number] ALK PHOS 85 U/L Normal (38 - 126) [facility] Comment on above: Order Comment: FACIL ITY: [facility] - SECOR [id number] Performed By: #### C BC/2A, MSEP, ANAFX, ACAX3, ESRCRP, TSHFX, VD25, CCP, RHF, URCA #### [facility] [address] [facility], [address] ALT [Catalytic activity/Vol] 10 U/L Normal (1 - 35) [facility] Comment on above: Order Comment: FACIL ITY: [facility] - SECOR [id number] Performed By: #### C BC/2A, MSEP, ANAFX, ACAX3, ESRCRP, TSHFX, VD25, CCP, RHF, URCA #### [facility] [address] [facility], [address] AST [Catalytic activity/Vol] 28 U/L Normal (15 - 46) [facility] Comment on above: Order Comment: FACIL ITY: [facility] - SECOR [id number] Performed By: #### C BC/2A, MSEP, ANAFX, ACAX3, ESRCRP, TSHFX, VD25, CCP, RHF, URCA #### [facility] [address] [facility], [id number] Creatinine [Mass/Vol] 0.65 mg/dL Normal (0.52 - 1.04) [facility] Comment on above: Order Comment: FACIL ITY: [facility] - SECOR [id number] Performed By: #### C BC/2A, MSEP, ANAFX, ACAX3, ESRCRP, TSHFX, VD25, CCP, RHF, URCA #### [facility] [address] [facility], [address] GFR- AMER 108.4 ML/M1.7 Normal (60.0 - 140.1) [facility] Comment on above: Order Comment: FACIL ITY: [facility] - SECOR [id number] Performed By: #### C BC/2A, MSEP, ANAFX, ACAX3, ESRCRP, TSHFX, VD25, CCP, RHF, URCA #### [facility] [address] [facility], [address] GFR-NON AFRIC-AMER 89.6 ML/M1.7 Normal (60.0 - 115.8) [facility] Comment on above: Order Comment: FACIL ITY: [facility] - SEC[facility] [id number] Performed By: #### C BC/2A, MSEP, ANAFX, ACAX3, ESRCRP, TSHFX, VD25, CCP, RHF, URCA #### [facility] [address] [facility], [address] Hematocrit (Bld) [Volume fraction] 38.6 % Normal (37.0 - 47.0) [facility] Comment on above: Order Comment: FACIL ITY: [facility] - [facility] [id number] Performed By: #### C BC/2A, MSEP, ANAFX, ACAX3, ESRCRP, TSHFX, VD25, CCP, RHF, URCA #### [facility] [address] [facility], [id number] Hemoglobin (Bld) [Mass/Vol] 12.7 g/dL Normal (12.0 - 16.0) [facility] Comment on above: Order Comment: FACIL ITY: [facility] - SEC[facility] [id number] Performed By: #### C BC/2A, MSEP, ANAFX, ACAX3, ESRCRP, TSHFX, VD25, CCP, RHF, URCA #### [facility] [address] [facility], [id number] MCH (RBC) [Entitic mass] 28.9 pg Normal (27.0 - 33.0) [facility] Comment on above: Order Comment: FACIL ITY: [facility] [id number] Performed By: #### C BC/2A, MSEP, ANAFX, ACAX3, ESRCRP, TSHFX, VD25, CCP, RHF, URCA #### [facility] [address] [facility], [address] MCHC (RBC) [Mass/Vol] 32.9 g/dL Normal (30.0 - 37.0) [facility] Comment on above: Order Comment: FACIL ITY: [facility] [id number] Performed By: #### C BC/2A, MSEP, ANAFX, ACAX3, ESRCRP, TSHFX, VD25, CCP, RHF, URCA #### [facility] [address] [facility], [address] MCV (RBC) [Entitic vol] 87.9 fL Normal (81.0 - 99.0) [facility] Comment on above: Order Comment: FACIL ITY: [facility] [id number] Performed By: #### C BC/2A, MSEP, ANAFX, ACAX3, ESRCRP, TSHFX, VD25, CCP, RHF, URCA #### [facility] [address] [facility], [address] PLT 264 x10^3ul Normal (130 - 400) [facility] Comment on above: Order Comment: FACIL ITY: [facility] [id number] Performed By: #### C BC/2A, MSEP, ANAFX, ACAX3, ESRCRP, TSHFX, VD25, CCP, RHF, URCA #### [facility] [address] [facility], [address] RBC 4.39 x10^6ul Normal (4.20 - 5.40) [facility] Comment on above: Order Comment: FACIL ITY: [facility] - [facility] [id number] Performed By: #### C BC/2A, MSEP, ANAFX, ACAX3, ESRCRP, TSHFX, VD25, CCP, RHF, URCA #### [facility] [address] [facility], [address] WBC 6.46 x10^3ul Normal (3.80 - 10.60) [facility] Comment on above: Order Comment: FACIL ITY: [facility] - [facility] [id number] Performed By: #### C BC/2A, MSEP, ANAFX, ACAX3, ESRCRP, TSHFX, VD25, CCP, RHF, URCA #### [facility] [address] [facility], [address] RF FACTORon 09-28-2023 RF FACTOR <9 Normal (0 - 12) [facility] Comment on above: Result Comment: RF F ACTOR = LESS THAN 9 IU/ML RF FACTOR MIN. DETECTION = 9 IU/ML. Performed By: #### C BC/2A, MSEP, ANAFX, ACAX3, ESRCRP, TSHFX, VD25, CCP, RHF, URCA #### [facility] [address] [facility], [address] SED RATE - CRPon 09-28-2023 CRP EXTENDED RANGE 0.78 MG/L Normal (0.00 - 3.20) [facility] Comment on above: Performed By: #### C BC/2A, MSEP, ANAFX, ACAX3, ESRCRP, TSHFX, VD25, CCP, RHF, URCA #### [facility] [address] [facility], [id number] SED RATE WEST. 78 MM/HR High (0 - 25) [facility] Comment on above: Performed By: #### C BC/2A, MSEP, ANAFX, ACAX3, ESRCRP, TSHFX, VD25, CCP, RHF, URCA #### [facility] [address] [facility], [address] SERUM ELECT(M-PROTIEN)on Albumin [Mass/Vol] 4.8 g/dL Normal (3.5 - 5.0) [facility] Comment on above: Performed By: #### C BC/2A, MSEP, ANAFX, ACAX3, ESRCRP, TSHFX, VD25, CCP, RHF, URCA #### [facility] [address] [facility], [address] Albumin/Globulin [Mass ratio] 1.5 {ratio} Normal (1.2 - 2.2) [facility] Comment on above: Performed By: #### C BC/2A, MSEP, ANAFX, ACAX3, ESRCRP, TSHFX, VD25, CCP, RHF, URCA #### [facility] [address] [facility], [address] ALPHA 1 0.2 G/DL Normal (0.1 - 0.3) [facility] Comment on above: Performed By: #### C BC/2A, MSEP, ANAFX, ACAX3, ESRCRP, TSHFX, VD25, CCP, RHF, URCA #### [facility] [address] [facility], [address] ALPHA 2 0.8 G/DL Normal (0.2 - 1.1) [facility] Comment on above: Performed By: #### C BC/2A, MSEP, ANAFX, ACAX3, ESRCRP, TSHFX, VD25, CCP, RHF, URCA #### [facility] [address] [facility], [address] BETA 0.8 G/DL Normal (0.6 - 1.1) [facility] Comment on above: Performed By: #### C BC/2A, MSEP, ANAFX, ACAX3, ESRCRP, TSHFX, VD25, CCP, RHF, URCA #### [facility] [address] [facility], [address] GAMMA 1.3 G/DL Normal (0.5 - 1.5) [facility] Comment on above: Performed By: #### C BC/2A, MSEP, ANAFX, ACAX3, ESRCRP, TSHFX, VD25, CCP, RHF, URCA #### [facility] [address] [facility], [id number] Globulin (S) [Mass/Vol] 3.1 g/dL Normal (2.3 - 3.5) [facility] Comment on above: Performed By: #### C BC/2A, MSEP, ANAFX, ACAX3, ESRCRP, TSHFX, VD25, CCP, RHF, URCA #### [facility] [address] [facility], [address] Protein [Mass/Vol] 7.9 g/dL Normal (6.3 - 8.2) [facility] Comment on above: Performed By: #### C BC/2A, MSEP, ANAFX, ACAX3, ESRCRP, TSHFX, VD25, CCP, RHF, URCA #### [facility] [address] [facility], [address] Protein [Mass/Vol] 0.0 g/dL Normal (0.0 - 0.01) [facility] Comment on above: Result Comment: AN A PPARENT NORMAL SERUM ELECTROPHORETIC PATTERN. Performed By: #### C BC/2A, MSEP, ANAFX, ACAX3, ESRCRP, TSHFX, VD25, CCP, RHF, URCA #### [facility] [address] [facility], [address] TSH WITH REFLEXon 09-28-2023 REFLEX T4, FREE NO Normal () [facility] in Comment on above: Performed By: #### C BC/2A, MSEP, ANAFX, ACAX3, ESRCRP, TSHFX, VD25, CCP, RHF, URCA #### [facility] [address] [facility], [address] TSH Qn 0.842 m[IU]/L Normal (0.470 - 4.680) [facility] Comment on above: Performed By: #### C BC/2A, MSEP, ANAFX, ACAX3, ESRCRP, TSHFX, VD25, CCP, RHF, URCA #### [facility] [address] [facility], [address] URIC ACIDon 09-28-2023 Urate [Mass/Vol] 4.8 mg/dL Normal (2.5 - 6.2) [facility] Comment on above: Performed By: #### C BC/2A, MSEP, ANAFX, ACAX3, ESRCRP, TSHFX, VD25, CCP, RHF, URCA #### [facility] [address] [facility], [address] VITAMIN D, 25 HYDROXYon 11- VITAMIN D, 25 31.7 NG/ML Normal (30.0 - 100.0) [facility] Comment on above: Result Comment: * * * VITAMIN D, 25 HYDROXY GENERAL GUIDELINE * * * DEFICIENCY = < OR = 20.0 NG/ML INSUFFICIENCY = 20.1 - 29.9 NG/ML SUFFICIENCY = 30.0 - 100.0 NG/ML TOXICITY = > 100.1 NG/ML Performed By: #### C BC/2A, MSEP, ANAFX, ACAX3, ESRCRP, TSHFX, VD25, CCP, RHF, URCA #### [facility] [address] [facility], [address] Vital Signs Date Time Vital Sign Value Performing Clinician Facility 07-20-2025 10:40-0400 Body height 157.5 cm Colleen Russell MD Work Phone: [facility] 07-20-2025 10:40-0400 Body mass index (BMI) [Ratio] 17.26 kg/m2 Colleen Russell MD Work Phone: [facility] 07-20-2025 10:40-0400 Body weight 42.82 kg Colleen Russell MD Work Phone: [facility] 07-20-2025 10:40-0400 Diastolic blood pressure 67 mm[Hg] Colleen Russell MD Work Phone: [facility] 07-20-2025 10:40-0400 Heart rate 90 /min Colleen Russell MD Work Phone: [facility] 07-20-2025 10:40-0400 Systolic blood pressure 115 mm[Hg] Colleen Russell MD Work Phone: [facility] 07-13-2025 13:04-0400 Body height 157.5 cm Brenden Caba [employer]ACHINE [employer] Work Phone: [facility] 07-13-2025 13:04-0400 Body mass index (BMI) [Ratio] 17.01 kg/m2 Brenden Caba MACHINE [employer]EE[employer] Work Phone: [facility] 07-13-2025 13:04-0400 Body temperature 97.11 [degF] Brenden Caba MACHINE [employer]EE[employer] Work Phone: [facility] 07-13-2025 13:04-0400 Body weight 42.19 kg Brenden Caba MACHINE [employer]EEPER [employer] Work Phone: [facility] 07-13-2025 13:04-0400 Diastolic blood pressure 64 mm[Hg] Brenden Caba MACHINE SWEE[employer] Work Phone: [facility] 07-13-2025 13:04-0400 Heart rate 100 /min Brenden Caba MACHINE SWEEPER [employer] Work Phone: [facility] 07-13-2025 13:04-0400 SaO2% (BldA) [Mass fraction] 94 % Brenden Caba MACHINE SWEEPER [employer] Work Phone: [facility] 07-13-2025 13:04-0400 Systolic blood pressure 105 mm[Hg] Brenden Caba MACHINE [employer]EE[employer] Work Phone: [facility] 06-22-2025 11:58-0400 Body height 157.5 cm Mariajose Clemente MD MPH Work Phone: [facility] 06-22-2025 11:58-0400 Body mass index (BMI) [Ratio] 17.19 kg/m2 Mariajose Clemente MD MPH Work Phone: [facility] 06-22-2025 11:58-0400 Body weight 42.64 kg Mariajose Clemente MD MPH Work Phone: [facility] 06-22-2025 11:58-0400 Diastolic blood pressure 78 mm[Hg] Mariajose Clemente MD MPH Work Phone: [facility] 06-22-2025 11:58-0400 Heart rate 81 /min Mariajose Clemente MD MPH Work Phone: [facility] 06-22-2025 11:58-0400 Respiratory rate 16 /min Mariajose Clemente MD MPH Work Phone: [facility] 06-22-2025 11:58-0400 Systolic blood pressure 136 mm[Hg] Mariajose Clemente MD MPH Work Phone: [facility] 05-17-2025 10:35-0400 Body mass index (BMI) [Ratio] 16.46 kg/m2 Trice Silva MD Work Phone: [facility] 05-17-2025 10:35-0400 Body weight 40.82 kg Trice Silva MD Work Phone: [facility] 05-17-2025 10:35-0400 Diastolic blood pressure 78 mm[Hg] Trice Silva MD Work Phone: [facility] 05-17-2025 10:35-0400 Heart rate 66 /min Trice Silva MD Work Phone: [facility] 05-17-2025 10:35-0400 Systolic blood pressure 147 mm[Hg] Trice Silva MD Work Phone: [facility] 05-03-2025 06:57-0400 Body height 157.5 cm Mi Dominguez MD Work Phone: [facility] 05-03-2025 06:57-0400 Body mass index (BMI) [Ratio] 15 kg/m2 Mi Dominguez MD Work Phone: [facility] [employer] [facility] 05-03-2025 06:57-0400 Body weight 37.2 kg Mi Dominguez MD Work Phone: [facility] [employer] [facility] 04-25-2025 12:33-0400 Body height 161.3 cm Ofeliarishi Pierce V, MACHINE [employer] Work Phone: [facility] [email or web address] 04-25-2025 12:33-0400 Body mass index (BMI) [Ratio] 15.17 kg/m2 Ofelia Stan Salmeron, MACHINE SWEEPER [employer] Work Phone: [facility] [email or web address] 04-25-2025 12:33-0400 Body weight 39.46 kg Ofelia Grullonffadela Salmeron, MACHINE [employer]EEPER [employer] Work Phone: [facility] [employer] [facility] 04-11-2025 11:55-0400 Body height 161.3 cm Duong Alex DO Work Phone: [facility] 04-11-2025 11:55-0400 Body mass index (BMI) [Ratio] 15.17 kg/m2 Duong Alex DO Work Phone: [facility] [email or web address] 04-11-2025 11:55-0400 Body weight 39.46 kg Duong Alex DO Work Phone: [facility] [employer] [facility] 04-11-2025 11:55-0400 Diastolic blood pressure 90 mm[Hg] Duong Alex DO Work Phone: [facility] 04-11-2025 11:55-0400 Heart rate 86 /min Duong Alex DO Work Phone: [facility] [employer] [facility] 04-11-2025 11:55-0400 SaO2% (BldA) [Mass fraction] 98 % Doung Alex DO Work Phone: [facility] 04-11-2025 11:55-0400 Systolic blood pressure 160 mm[Hg] Duong Alex DO Work Phone: [facility] 03-06-2025 11:42-0400 Body height 157.5 cm Amramos Clemente MD MPH Work Phone: [facility] 03-06-2025 11:42-0400 Body mass index (BMI) [Ratio] 17.01 kg/m2 Amala Ambati MPH Work Phone: [facility] 03-06-2025 11:42-0400 Body weight 42.19 kg Amala Chyna CARDENAS MPH Work Phone: [facility] 03-06-2025 11:42-0400 Diastolic blood pressure 82 mm[Hg] Amala Ambati MD MPH Work Phone: [facility] 03-06-2025 11:42-0400 Heart rate 83 /min Amala Ambati MD MPH Work Phone: [facility] 03-06-2025 11:42-0400 Respiratory rate 14 /min Amala Ambmiguelina MD MPH Work Phone: [facility] 03-06-2025 11:42-0400 Systolic blood pressure 132 mm[Hg] Amala Chyna CARDENAS MPH Work Phone: [facility] 02-21-2025 10:31-0400 Body height 157.5 cm Brenden Lent MACHINE SWEEPER [employer] Work Phone: [facility] 02-21-2025 10:31-0400 Body mass index (BMI) [Ratio] 16.64 kg/m2 Brenden Truongt MACHINE SWEEPER [employer] Work Phone: [facility] 02-21-2025 10:31-0400 Body weight 41.28 kg Brenden Alexit MACHINE SWEEPER [employer] Work Phone: [facility] 02-21-2025 10:31-0400 Diastolic blood pressure 78 mm[Hg] Brenden Lent MACHINE SWEEPER [employer] Work Phone: [facility] 02-21-2025 10:31-0400 Heart rate 89 /min Brenden Caba MACHINE SWEEPER [employer] [facility] 02-21-2025 10:31-0400 SaO2% (BldA) [Mass fraction] 96 % Brenden Caba MACHINE SWEEPER [employer] [facility] 02-21-2025 10:31-0400 Systolic blood pressure 132 mm[Hg] Brenden Caba MACHINE SWEEPER [employer] Work Phone: [facility] [email or web address] 02-13-2025 13:31-0400 Diastolic blood pressure 72 mm[Hg] Isidro Dankert DO [facility] 02-13-2025 13:31-0400 Heart rate 92 /min Isidro Dankert DO [facility] 02-13-2025 13:31-0400 Respiratory rate 16 /min Isidro Dankert DO [facility] 02-13-2025 13:31-0400 Systolic blood pressure 166 mm[Hg] Isidro [facility]ankert DO [facility] 01-30-2025 14:38-0400 Diastolic blood pressure 85 mm[Hg] Isidro [facility]ert DO [facility] 01-30-2025 14:38-0400 Heart rate 80 /min Isidro Dankert DO [facility] 01-30-2025 14:38-0400 Respiratory rate 16 /min Isidro [facility]ankert DO [facility] 01-30-2025 14:38-0400 Systolic blood pressure 175 mm[Hg] Isidro [facility]ankert DO [facility] 01-30-2025 14:02-0400 SaO2% (BldA) [Mass fraction] 98 % Isidro Dankert DO Work Phone: [facility] 01-26-2025 10:31-0400 Body height 157.5 cm Trice Silva MD Work Phone: [facility] 01-26-2025 10:31-0400 Body mass index (BMI) [Ratio] 17.56 kg/m2 Trice Silva MD Work Phone: [facility] 01-26-2025 10:31-0400 Body weight 43.55 kg Trice Silva MD Work Phone: [facility] 01-23-2025 10:01-0400 Body height 157.5 cm Yusra Hamlin MD Work Phone: [facility] 01-23-2025 10:01-0400 Body mass index (BMI) [Ratio] 17.37 kg/m2 Yusra Hamlin MD Work Phone: [facility] 01-23-2025 10:01-0400 Body weight 43.09 kg Yusra Hamlin MD Work Phone: [facility] 01-23-2025 10:01-0400 Diastolic blood pressure 84 mm[Hg] Yusra Hamlin MD Work Phone: [facility] 01-23-2025 10:01-0400 Heart rate 96 /min Yusra Hamlin MD Work Phone: [facility] 01-23-2025 10:01-0400 Systolic blood pressure 133 mm[Hg] Yusra Hamlin MD Work Phone: [facility] 12-06-2024 13:15-0500 Body height 157.5 cm CIARRA Hernandez Work Phone: [facility] 12-06-2024 13:15-0500 Body mass index (BMI) [Ratio] 18.58 kg/m2 CIARRA Hernandez Work Phone: [facility] 12-06-2024 13:15-0500 Body weight 46.1 kg Ofelia Stan Salmeron, MACHINE SWEEPER [employer] Work Phone: [facility] 12-06-2024 11:48-0500 Body height 157.5 cm Mariajose Clemente MD MPH Work Phone: [facility] 12-06-2024 11:48-0500 Body mass index (BMI) [Ratio] 18.58 kg/m2 Mariajose Clemente MD MPH Work Phone: [facility] 12-06-2024 11:48-0500 Body weight 46.09 kg Mariajose Clemente MD MPH Work Phone: [facility] 12-06-2024 11:48-0500 Diastolic blood pressure 82 mm[Hg] Mariajose Clemente MD MPH Work Phone: [facility] 12-06-2024 11:48-0500 Heart rate 97 /min Mariajose Clemente MD MPH Work Phone: [facility] 12-06-2024 11:48-0500 Respiratory rate 14 /min Mariajose Clemente MD MPH Work Phone: [facility] 12-06-2024 11:48-0500 Systolic blood pressure 132 mm[Hg] Mariajose Clemente MD MPH Work Phone: [facility] Encounters Encounter Date Encounter Type Care Provider Facility Start: 07-20-2025 End: 07-20-2025 Telephone encounter [facility] Work Phone: [facility] of [facility] Start: 07-20-2025 End: 07-20-2025 Office outpatient visit 25 minutes Colleen Russell MD Work Phone: [facility], [facility] Comment on above: Esophageal dysphagia (Primary Dx); 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 Start: 07-20-2025 End: 07-20-2025 ambulatory COLLEEN RUSSELL [facility] Start: 07-19-2025 End: 07-19-2025 Telephone encounter Radha Urrutia [facility] Start: 07-14-2025 End: 07-14-2025 Refill Osvaldo Bernal [facility] Neurology, A Department of [facility] Comment on above: Insomnia due to medi angely condition; REM sleep behavior disorder Start: 07-13-2025 End: 07-13-2025 Office outpatient visit 25 minutes Brenden Caba MACHINE [employer] Work Phone: [facility] Comment on above: Acute cough (Primary Dx); Wheezing; Shortness of breath; COPD exacerbation ([facility]) Start: 07-13-2025 End: 07-13-[address] [facility] Start: 07-04-2025 End: 07-05-2025 Telephone encounter Trice Silva MD Work Phone: [facility] Neurology, [facility] Start: 07-03-2025 End: 07-03-2025 Orders Only Ines Uribe PA-C Work Phone: [facility] Start: 06-30-2025 End: 07-03-2025 Telephone encounter Beena Gaytan [facility], [facility] Comment on above: Med Refill Parkinson's disease ([facility]) Start: 06-29-2025 End: 07-04-2025 Telephone encounter Aiden Jones [facility], A [facility] of [facility] Start: 06-28-2025 End: 06-28-2025 ambulatory [facility] Start: 06-27-2025 End: 06-27-2025 Refill Cee Tolentino [facility] [place] Comment on above: Wheezing Start: 06-22-2025 End: 06-22-2025 Office outpatient visit 25 minutes Mariajose Clemente MD MPH Work Phone: [facility] Rheumatology, A Department of [facility] Comment on above: Inflammatory polyart hritis ([facility]) (Primary Dx); Seronegative rheumatoid arthritis ([facility]); Primary osteoarthritis involving multiple joints; Chronic bilateral low back pain without sciatica; Medication monitoring encounter; Neck pain; Muscle tension pain Start: 06-22-2025 End: 06-22-2025 ambulatory [facility] Start: 06-19-2025 End: 06-20-2025 Refill Dangelo Floyd [facility], [facility] Comment on above: Parkinson's disease ([facility] Start: 06-08-2025 End: 06-08-2025 [facility] Start: 05-31-2025 End: 05-31-2025 Telephone encounter Padmaja Lindsay [facility], [facility] Comment on above: Physical Therapy / S peech Therapy Start: 05-25-2025 ambulatory [facility] Start: 05-23-2025 [facility] Start: 05-22-2025 End: 05-22-2025 Refill Colleen Russell MD Work Phone: [facility] Start: 05-17-2025 End: 05-17-2025 ambulatory [facility] Start: 05-17-2025 End: 05-17-2025 Office outpatient visit 40 minutes Trice Silva MD Work Phone: [facility], [facility] Comment on above: Parkinson's disease with dyskinesia and fluctuating manifestations ([facility]) (Primary Dx); Dysphagia, unspecified type Start: 05-10-2025 End: 05-10-2025 Orders Only [facility] [place] Start: 05-09-2025 End: 05-09-2025 Telephone encounter Stephenie Negro RN [facility] Comment on above: Care Navigation Start: 05-05-2025 End: 05-05-2025 Telephone encounter Janell Mell Maitland Work Phone: [facility] Start: 05-03-2025 End: 05-03-2025 Patient encounter procedure Mi Dominguez MD Work Phone: [facility] Comment on above: Health care maintena nce (Primary Dx); Iron deficiency anemia, unspecified iron deficiency anemia type; Weight loss; Decreased appetite; Parkinson's disease ([facility]); Inflammatory polyarthritis ([facility]); Primary hypertension; Chronic heart failure with preserved ejection fraction ([facility]); Insomnia, unspecified type; Hyperbilirubinemia; Elevated serum creatinine Start: 05-03-2025 End: 05-03-2025 Patient encounter status Mi Dominguez MD Work Phone: [facility] Work Phone: Start: 05-03-2025 End: 05-05-2025 Orders Only Annalise Rodriguez [facility] Comment on above: Dysuria (Primary Dx) ; Frequency of urination call back ; Medical Concern Start: 04-25-2025 End: 04-25-2025 Office outpatient visit 15 minutes 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 Work Phone: [facility] Comment on above: Chronic pain syndrom e (Primary Dx); Cervical radiculopathy; Neck pain, chronic; Chronic bilateral low back pain without sciatica Start: 04-25-2025 End: 04-25-2025 ambulatory BRENDEN Zuñiga [facility] Start: 04-25-2025 ambulatory MI DOMINGUEZ [facility] Start: 04-25-2025 Encounter for genera l adult medical examination without abnormal findings [facility] Start: 04-17-2025 End: 04-17-2025 Emergency department patient visit HANNAH MCBRIDE [facility] Start: 04-17-2025 End: 04-17-2025 Orders Only Mi Dominguez MD Work Phone: [facility] Comment on above: Health care maintena nce (Primary Dx) Start: 04-17-2025 End: 04-17-2025 Patient encounter status Mi Dominguez MD Work Phone: [facility] Start: 04-14-2025 End: 04-14-2025 Orders Only Mi Dominguez MD Work Phone: [facility] Comment on above: Health care maintena nce (Primary Dx) Start: 04-14-2025 End: 04-14-2025 Patient encounter status Mi Dominguez MD Work Phone: [facility] Start: 04-11-2025 End: 04-11-2025 ambulatory [facility] Start: 04-11-2025 End: 04-11-2025 Office outpatient visit 25 minutes [facility] DO Work Phone: [facility] Comment on above: Chronic heart failur e with preserved ejection fraction (CMS- HCC) (Primary Dx); Mixed hyperlipidemia; Nonrheumatic mitral valve regurgitation Start: 03-20-2025 End: 03-20-2025 ambulatory [facility] Start: 03-17-2025 End: 03-17-2025 Telephone encounter Trice Silva MD Work Phone: [facility], [facility] Start: 03-16-2025 End: 03-16-2025 Telephone encounter Any Yun RN [facility] Comment on above: Appeal for [employer] Start: 03-10-2025 End: 03-13-2025 Refill Brenden Rosales MACHINE [employer] Work Phone: [facility] Comment on above: Mixed hyperlipidemia Start: 03-07-2025 End: 03-07-2025 Orders Only Trice Silva MD Work Phone: [facility], [facility] Comment on above: Parkinson's disease with dyskinesia and fluctuating manifestations ([facility]) Start: 03-06-2025 End: 03-06-2025 Office outpatient visit 25 minutes Mariajose Clemente MD MPH Work Phone: [facility] Rheumatology, [facility] Comment on above: Inflammatory polyart hritis ([facility]) (Primary Dx); Seronegative rheumatoid arthritis ([facility]); Medication monitoring encounter; Neck pain Start: 03-06-2025 End: 03-06-2025 ambulatory [facility] Start: 02-28-2025 End: 03-02-2025 Telephone encounter Trice Silva MD Work Phone: [facility], [facility] Start: 02-27-2025 End: 02-27-2025 ambulatory [facility] Start: 02-22-2025 End: 02-22-2025 Orders Only Cee Tolentino [facility] [place] Comment on above: Encounter for screen ing mammogram for malignant neoplasm of breast (Primary Dx) Start: 02-21-2025 End: 02-21-2025 ambulatory [facility] Start: 02-21-2025 End: 02-21-2025 Patient encounter status Brenden Caba MACHINE SWEEPER [employer] Work Phone: [facility] Start: 02-21-2025 End: 02-21-2025 Periodic preventive med est patient 65yrs& older Brenden Zuñiga Rosales MACHINE SWEEPER [employer] Work Phone: [facility] Comment on above: Health care maintena nce (Primary Dx); Primary hypertension; Chronic heart failure with preserved ejection fraction ([facility]); Chronic obstructive pulmonary disease, unspecified COPD type ([facility]); Parkinson's disease ([facility]); Mixed hyperlipidemia; Complication associated with silicone gel-filled breast implant Start: 02-13-2025 End: 02-13-2025 Patient encounter procedure Isidro Woodall DO Work Phone: [facility] Comment on above: Cervical radiculopat hy (Primary Dx) Start: 02-13-2025 End: 02-13-2025 ambulatory BRENDEN L [facility] Start: 02-09-2025 ambulatory [facility] Start: 02-02-2025 End: 02-02-2025 ambulatory BRENDEN L [facility] Start: 02-02-2025 Encounter for genera l adult medical examination without abnormal findings [facility] Start: 01-30-2025 End: 01-30-2025 Patient encounter procedure Isidro Woodall DO [facility] Comment on above: Cervical radiculopat hy (Primary Dx) Start: 01-30-2025 End: 01-30-2025 ambulatory FLORENCE Yogesh [facility] Start: 01-27-2025 End: 01-27-2025 Telephone encounter Dianna Maxwell [facility], [facility] Start: 01-26-2025 End: 01-26-2025 Office outpatient visit 15 minutes Trice Silva MD Work Phone: [facility], [facility] Comment on above: Parkinson's disease with dyskinesia and fluctuating manifestations (CMS-HCC) (Primary Dx); Parkinson's disease (CMS-HCC); Insomnia due to medical condition Start: 01-26-2025 End: 01-26-2025 ambulatory [facility] Start: 01-24-2025 End: 01-24-2025 Telephone encounter Radha Urrutia CMA [facility] Physical Medicine and Rehabilitation Start: 01-23-2025 End: 01-26-2025 Refill Trice Silva MD [facility]: [facility] Comment on above: Insomnia due to medi angely condition Start: 01-23-2025 End: 01-24-2025 Telephone encounter Rita Moya [facility] Physical Medicine and Rehabilitation Start: 01-23-2025 End: 01-23-2025 Office outpatient new 45 minutes Yusra Hamlin MD Work Phone: [facility] NeuroSurgery Comment on above: Cervical spinal sten osis (Primary Dx); Cervical spondylosis; Neck pain Start: 01-23-2025 End: 01-23-2025 ambulatory YUSRA HAMLIN [facility] Start: 12-29-2024 End: 12-29-2024 Orders Only Trice Decker [facility] Neuro[facility]gery Comment on above: Neck pain (Primary D x) Start: 12-28-2024 End: 12-28-2024 Orders [facility] Comment on above: Cervical radiculopat hy (Primary Dx) Restless leg syndrom e Start: 12-27-2024 End: 12-27-2024 Orders Only Bay Castillo [facility] Physical Medicine and Rehabilitation Comment on above: Chronic pain syndrom e (Primary Dx); Neck pain, chronic; Cervical radiculopathy Start: 12-23-2024 End: 12-23-2024 ambulatory [facility] Start: 12-23-2024 End: 12-26-2024 Telephone encounter Sury España [facility] Start: 12-15-2024 End: 12-16-2024 Refill Evette Okeefe MD Work Phone: [facility] Comment on above: Restless leg syndrom e Start: 12-08-2024 End: 12-08-2024 Orders Only Bay Castillo Rishi [facility] Physical Medicine and Rehabilitation Comment on above: Chronic pain syndrom e (Primary Dx); Neck pain, chronic; Cervical radiculopathy Start: 12-08-2024 End: 12-09-2024 Refill Trice Silva MD Work Phone: [facility] Comment on above: Insomnia due to medi angely condition Start: 12-06-2024 End: 12-06-2024 ambulatory OFELIARishi PIERCE V [facility] Start: 12-06-2024 End: 12-06-2024 Office outpatient new 30 minutes Ofelianayana Pierce MACHINE SWEEPER [employer] DRAWER Work Phone: [facility] Comment on above: Cervical radiculopat hy (Primary Dx); Chronic pain syndrome; Neck pain, chronic Start: 12-06-2024 End: 12-06-2024 ambulatory [facility] Start: 12-06-2024 End: 12-06-2024 Office outpatient visit 40 minutes Mariajose Clemente MD MPH Work Phone: [facility] Comment on above: Seronegative rheumat oid arthritis ([facility]) (Primary Dx); Neck pain; Muscle tension pain; Inflammatory polyarthritis ([facility]); Anti-cardiolipin antibody positive; Raynaud disease without gangrene; Primary osteoarthritis involving multiple joints; Fibromyalgia Start: 12-06-2024 End: 12-06-2024 ambulatory [facility] Start: 11-30-2024 End: 12-01-2024 Nohemi Silva MD Work Phone: [facility] Comment on above: Parkinson's disease ([facility]); Restless leg syndrome Start: 11-29-2024 End: 11-29-2024 ambulatory [facility] Start: 11-20-2024 End: 11-22-2024 Nohemi Stubbs MD Work Phone: [facility] Comment on above: Parkinson's disease ([facility]) Start: 11-04-2024 ambulatory [facility] Start: 11-04-2024 End: 11-04-2024 [facility] Start: 10-20-2024 End: 10-20-2024 ambulatory [facility] Start: 10-04-2024 End: 10-04-2024 ambulatory DUONG MENENDEZ [facility] Start: 09-29-2024 End: 09-29-2024 ambulatory [facility] Start: 08-24-2024 End: 08-24-2024 [facility] Start: 08-09-2024 End: 08-09-2024 ambulatory BRENDEN L [facility] Start: 08-09-2024 End: 08-09-2024 ambulatory BRENDEN L [facility] Start: 06-28-2024 End: 06-30-2024 Subsequent hospital visit by physician Gavin Pineda Rm 1 [facility] Radiology Comment on above: Bilateral hand pain Start: 06-28-2024 End: 06-30-2024 ambulatory JOE ELLEJoy [facility] Start: 06-21-2024 End: 06-23-2024 ambulatory MI Tovar [facility] Start: 01-13-2024 End: 01-15-2024 ambulatory [facility] Procedures Date Procedure Procedure Detail Performing Clinician Start: 07-13-2025 Adult depression scr eening assessment Brenden Caba MACHINE SWEEPER [employer] DRAWER Work Phone: Start: 05-17-2025 Adult depression scr eening assessment Trice Silva MD Work Phone: Start: 05-03-2025 Ecg routine ecg w/le ast 12 lds w/i&r Mi Dominguez MD Work Phone: Start: 01-26-2025 Adult depression scr eening assessment Trice Silva MD Work Phone: Start: 12-06-2024 JOINT ASPIRATION/INJECTION 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 Work Phone: Start: 11-29-2024 Cyclic citrullinated peptide antibody BRENDEN ALEXITisha Comment on above: Result Comment: Interpretation-------- <3 Negative >=3 Positive Performed By: #### C BCA, 1988-5, [employer], LIVR, 48161-3, 69246-7, ENAP, 09437-7, AHP #### [facility] ([id number]) [address], [address] [place] [address] Start: 11-04-2024 Mammography Jack givens MD Work [...] VD25, CCP, RHF, URCA #### [facility] [address] [facility], [address] Start: 10-29-2015 Colonoscopy Jack givens MD Work Phone: Plan of Treatment Date Care Activity Detail Author Start: 05-11-2035 DTaP,Tdap and Td Vaccines (4 - Td or Tdap) DTaP,Tdap and Td Vaccines (4 - Td or Tdap) [facility] Start: 07-25-2031 DTaP,Tdap and Td Vaccines (3 - Td or Tdap) DTaP,Tdap and Td Vaccines (3 - Td or Tdap) [facility] Start: 07-25-2031 DTaP/Tdap/Td vaccine (3 - Td or Tdap) DTaP/Tdap/Td vaccine (3 - Td or Tdap) [facility] Start: 07-20-2026 Adult BMI Screening Adult [facility]ening [facility] Start: 07-20-2026 Tobacco Screening Tobacco Screening [facility] Start: 07-13-2026 Adult BMI Screening Adult BMI Screening [facility] Start: 07-13-2026 Depression Screening Depression Screening [facility] Start: 07-13-2026 Tobacco Screening Tobacco Screening [facility] Start: 06-22-2026 Adult BMI Screening Adult BMI Screening [facility] Start: 06-22-2026 Tobacco Screening Tobacco Screening [facility] Start: 05-17-2026 Adult BMI Screening Adult BMI Screening [facility] Start: 05-17-2026 Depression Screening Depression Screening [facility] Start: 05-17-2026 Tobacco Screening Tobacco Screening [facility] Start: 05-03-2026 Adult BMI Screening Adult BMI Screening [facility] Start: 04-25-2026 Adult BMI Screening Adult BMI Screening [facility] Start: 04-25-2026 Tobacco Screening Tobacco Screening [facility] Start: 04-17-2026 Tobacco Screening Tobacco Screening [facility] Start: 04-11-2026 Adult BMI Screening Adult BMI Screening [facility] Start: 03-06-2026 Adult BMI Screening Adult BMI Screening [facility] Start: 03-06-2026 Tobacco Screening Tobacco Screening [facility] Start: 02-21-2026 Adult BMI Follow Up Plan Adult BMI Follow Up Plan [facility] Start: 02-21-2026 Adult BMI Screening Adult BMI Screening [facility] Start: 02-21-2026 Tobacco Screening Tobacco Screening [facility] Start: 01-26-2026 Adult BMI Follow Up Plan Adult BMI Follow Up Plan [facility] Start: 01-26-2026 Adult BMI Screening Adult BMI Screening [facility] Start: 01-26-2026 Depression Screening Depression Screening [facility] Start: 01-26-2026 Tobacco Screening Tobacco Screening [facility] Start: 01-23-2026 Adult BMI Screening Adult BMI Screening [facility] Start: 01-23-2026 Tobacco Screening Tobacco Screening [facility] Start: 01-12-2026 Screening for malignant neoplasm of breast Breast cancer screen [facility] Start: 12-23-2025 Adult BMI Screening Adult BMI Screening [facility] Start: 12-06-2025 Adult BMI Screening Adult BMI Screening [facility] Start: 12-06-2025 Tobacco Screening Tobacco Screening [facility] Start: 11-21-2025 End: 11-21-2025 Patient encounter procedure 11/21/2025 12:30 PM EST Appointment [facility] [address] [place] [address] [facility] Start: 11-14-2025 End: 11-14-2025 Patient encounter procedure 11/14/2025 12:20 PM EST Office Visit [facility] [address] [place] [address] Ofelia Pierce V, MACHINE SWEEPER [employer] MAK[employer] DRAWER [address] [place] [address] [facility] Start: 11-04-2025 Adult BMI Screening Adult BMI Screening [facility] Start: 11-04-2025 Screening for malignant neoplasm of breast Mammogram [facility] Start: 10-29-2025 Screening for malignant neoplasm of colon Colonoscopy [facility] Start: 10-20-2025 Tobacco Screening Tobacco Screening [facility] Start: 10-13-2025 End: 10-13-2025 Patient encounter procedure 10/13/2025 3:15 PM EST Off ice Visit [facility], A Department of [address] [place] [address] Ines Uribe PA-C [address] [place] [address], [address] [place] [address] [facility], A Department of [facility] Start: 10-13-2025 End: 10-13-2025 Patient encounter procedure 10/13/2025 11:45 AM EST Office Visit [facility] [address] [place] [address] [address] [place] [address] Duong Menendez, [address] [facility], [address] [place] [address] [facility] Start: 09-26-2025 End: 09-26-2025 Patient encounter procedure 09/26/2025 1:30 PM EST Off ice Visit [facility], A Department of [address] [place] [address] Mariajose Clemente MD MPH [address] [place] [address] [facility], A Department of [facility] Start: 08-31-2025 End: 08-31-2025 Patient encounter procedure 08/31/2025 1:45 PM EDT [facility]ment [facility] [address] [place] [phone] Jamar [facility] Start: 08-23-2025 End: 08-23-2025 Patient encounter procedure 08/23/2025 1:30 PM EDT Off ice Visit [facility] [address] [facility] [address] [place] [address] Brenden Caba, MACHINE SWEEPER [employer] MAK[employer] DRAWER [address] [facility], [address] [place] [address] [facility] Start: 08-22-2025 End: 08-22-2025 Patient encounter procedure 08/22/2025 2:30 PM EDT Off ice Visit [facility] [address] [facility] [address] [place] [address] Isidro Woodall, DO [address] [facility] [address] [place] [address] [facility] Start: 08-21-2025 End: 08-21-2025 Patient encounter procedure 08/21/2025 2:30 PM EDT Appointment [facility] [address] [place] [address] [facility] Start: 08-09-2025 Depression Screening Depression Screening [facility] Start: 08-09-2025 End: 08-09-2025 Admission to same day surgery center 08/09/2025 12:00 PM EDT - 08/09/2025 12:30 PM EDT Surgery [facility] Endoscopy [address] [place] [address] Colleen Russell MD [address] [place] [address], [address] [place] [address] ESOPHAGOGASTRODUODENOSCOPY DIAGNOSTIC [08184 (CPT )] [facility] Endoscopy Comment on above: ESOPHAGOGASTRODUODENOSCOPY DIAGNOSTIC [4 3235 (CPT )] Start: 08-09-2025 End: 08-09-2025 Esophagogastroduodenoscopy transoral diagnostic ESOPHAGOGASTRODUODENOSCOPY DIAGNOSTIC Esophageal dysphagia (R13.19) 08/09/2025 12:00 PM EDT [facility] ENDOSCOPY Start: 08-09-2025 Subsequent hospital visit by physician 08/09/2025 12:00 PM EDT Hospital Encounter [facility] Endoscopy [address] [place] [address] Colleen Russell MD [address] [facility], [address] [place] [address] [facility] - Endoscopy Start: 08-07-2025 End: 08-07-2025 Patient encounter procedure [facility] Start: 08-03-2025 End: 08-03-2025 Patient encounter procedure 08/03/2025 9:30 AM EDT Procedure visit [facility] On [address] [address] [facility] On [facility] Start: 08-01-2025 End: 08-01-2025 Patient encounter procedure 08/01/2025 2:00 PM EDT Off ice Visit [facility], A Department of [address] [place] [address] Trice Silva MD [address] [place] [address], [facility] [address] [place] [address] [facility], A Department of [facility] Start: 07-20-2025 End: 07-20-2025 Patient encounter procedure 07/20/2025 10:45 AM EDT Office Visit [facility], A Department of [address] [address] Colleen Russell MD [address] [place] [address], [address] [place] [address] [facility], A Department of [facility] Start: 07-10-2025 Influenza vaccination Influenza Vaccine [facility] Start: 06-29-2025 Adult BMI Follow Up Plan Adult BMI Follow Up Plan [facility] Start: 06-29-2025 End: 06-29-2026 RF Spine epidural space Views W contrast IT Fluoroscopy AMB cervical epidural Imaging Routine Cervical radiculopathy Expected: 06/29/2025, Expires: 06/29/2026 [facility] Work Phone: Comment on above: Expected: 06/29/2025, Expires: Start: 06-28-2025 End: 06-28-2025 Patient encounter procedure 06/28/2025 1:00 PM EDT Appointment [facility] [address] [facility] [place] [address] Trice Silva MD [facility] [address] [place] [address] [facility] Start: 06-22-2025 End: 06-22-2026 XR Lumbar spine 2 or 3 Views [facility] Work Phone: Comment on above: Expected: 06/22/2025, Expires: Start: 06-22-2025 End: 06-22-2025 Patient encounter procedure 06/22/2025 12:00 PM EDT Office Visit [facility] Rheumatology, A Department of [address] [address] Mariajose Clemente MD MPH [address] [place] [address] [facility], A Department of [facility] Start: 06-20-2025 End: 06-20-2025 Patient encounter procedure 06/20/2025 1:00 PM EDT Appointment [facility] [address] [address] Parkinson's disease with dyskinesia and fluctuating manifestations ([facility]) [facility] Comment on above: Parkinson's disease with dyskinesia and fluctuating manifestations ([facility]) Start: 06-06-2025 End: 06-06-2025 Patient encounter procedure 06/06/2025 11:45 AM EDT [facility] Department of [address] [address] Mariajose Clemente MD MPH [address] [place] [address] [facility], A Department of [facility] Start: 05-17-2025 End: 05-17-2026 RF videography Hypopharynx and Esophagus Views Fluoroscopy swallow motility function Imaging Routine Dysphagia, unspecified type Expected: 05/17/2025, Expires: 05/17/2026 [facility] Work Phone: Comment on above: Expected: 05/17/2025, Expires: Start: 05-17-2025 End: 05-17-2025 Patient encounter procedure [facility], A Department of [facility] Start: 05-03-2025 End: 05-03-2025 Patient encounter procedure [facility] Comment on above: Health care maintenance Start: 04-25-2025 End: 04-25-2025 Patient encounter procedure 04/25/2025 12:20 PM EDT Office Visit [facility] [address] [place] [address] Ofelia Pierce V, MACHINE SWEEPER [employer] MAK[employer] DRAWER [address] [place] [address] [facility] Start: 04-25-2025 End: 04-25-2025 Patient encounter procedure [facility] Start: 04-25-2025 End: 04-25-2025 ambulatory 04/25/2025 10:00 AM EDT Lab [facility] [address] [place] [address] [facility] Start: 04-17-2025 End: 04-17-2026 CT Icaria heart without contrast including scoring CT Icaria heart without contrast including scoring Imaging STAT Health care maintenance Expected: 04/17/2025, Expires: 04/17/2026 [facility] Work Phone: Comment on above: Expected: 04/17/2025, Expires: Start: 04-14-2025 End: 04-14-2026 Dexa Icaria scan central skeletal Dexa Icaria scan central skeletal Imaging STAT Health care maintenance Expected: 04/14/2025, Expires: 04/14/2026 [facility] [employer] [facility] Comment on above: Expected: 04/14/2025, Expires: Start: 04-14-2025 End: 04-14-2026 MR Icaria Body MR Icaria Body Imaging STAT Health care maintenance Expected: 04/14/2025, Expires: 04/14/2026 [facility] [employer] [facility] Comment on above: Expected: 04/14/2025, Expires: Start: 04-14-2025 End: 04-14-2026 MR Icaria cardiac MR Icaria cardiac Imaging STAT Health care maintenance Expected: 04/14/2025, Expires: 04/14/2026 [facility] [employer] [facility] Comment on above: Expected: 04/14/2025, Expires: Start: 04-14-2025 End: 04-14-2026 MR Icaria Neuro MR Icaria Neuro Imaging STAT Health care maintenance Expected: 04/14/2025, Expires: 04/14/2026 [facility] [employer] [facility] Comment on above: Expected: 04/14/2025, Expires: Start: 04-11-2025 End: 04-11-2025 Patient encounter procedure 04/11/2025 11:45 AM EDT Office Visit [facility] [address] [place] [address] [address] [place] [address] Duong Menendez, [address] [facility], [address] [place] [address] [facility] Start: 03-20-2025 End: 03-20-2025 Patient encounter procedure 03/20/2025 11:00 AM EDT Appointment [facility] - CardioVascular [address] [place] [address] [facility] Start: 03-06-2025 [...] 10:00 AM EDT Office Visit [facility] [address] [place] [address] Brenden Caba, MACHINE SWEEPER BRUSH MAKER-WIRE DRAWER [address] [place] [address], [address] [place] [address] [facility] Start: 02-13-2025 End: 02-13-2025 Patient encounter procedure [facility] Start: 02-09-2025 End: 02-09-2025 Patient encounter procedure 02/09/2025 11:30 AM EDT Appointment [facility] - Dexa Scan Imaging [facility] [place] [address] [facility] - Dexa Scan Imaging Start: 01-30-2025 End: 01-30-2025 Patient encounter procedure [facility] Start: 01-25-2025 End: 01-25-2025 Patient encounter procedure [facility] Start: 01-23-2025 End: 01-23-2025 Patient encounter procedure 01/23/2025 10:30 AM EDT Office Visit [facility] [address] [place] [address] Yusra Hamlin MD [address] [place] [address] [facility] Start: 12-29-2024 End: 12-29-2025 [...] encounter procedure 12/23/2024 8:00 PM EST Appointment [facility] - MRI [address] [place] [place] [address] [facility] Start: 12-08-2024 End: 12-08-2025 MR Cervical spine [...] PM EST Office Visit [facility] [address] [place] [address] Mariajose Clemente MD MPH [address] [address] [facility] Start: 07-10-2024 COVID-19 Vaccine () COVID-19 Vaccine () [facility] Start: 07-10-2024 Influenza vaccination Influenza Vaccine [facility] Start: 06-09-2024 Influenza vaccination Flu vaccine (#1) [facility] Start: 07-10-2023 COVID-19 Vaccine ( season) COVID-19 Vaccine () [facility] Start: 03-10-2023 Fall Risk Screening Fall Risk Screening [facility] Start: 2016 Fall Risk Screening Fall Risk Screening [facility] Start: 2011 Respiratory Syncytial Virus (RSV) or age 60 yrs+ (1 - 1-dose 60+ series) Respiratory Syncytial Virus (RSV) or age 60 yrs+ (1 - 1-dose 60+ series) [email or web address] Start: 1996 Screening for malignant neoplasm of colon [facility] Start: 1969 Hepatitis C screening Hepatitis C screen [facility] Start: 1963 Depression Screen Depression Screen [facility] Start: 1961 Lipid panel Lipids [email or web address] End: 04-14-2026 Apolipoprotein A1, S Apolipoprotein A1, S Lab Routine Health care maintenance 1 Occurrences starting 04/14/2025 until 04/14/2026 [facility] Work Phone: Comment on above: 1 Occurrences starting 04/14/2025 until 04/14/2026 End: 04-14-2026 Apolipoprotein B, S Apolipoprotein B, S Lab Routine Health care maintenance 1 Occurrences starting 04/14/2025 until 04/14/2026 [employer] Comment on above: 1 Occurrences starting 04/14/2025 until 04/14/2026 End: 05-03-2026 Bacteria identified in Urine by Culture Urine culture (clean catch) Microbiology Routine Dysuria Frequency of urination 1 Occurrences starting 05/03/2025 until 05/03/2026 [employer] Comment on above: 1 Occurrences starting 05/03/2025 until 05/03/2026 End: 05-05-2026 Basic metabolic 2000 panel - Serum or Plasma Basic Metabolic Panel Lab Routine Decreased appetite 1 Occurrences starting 05/05/2025 until 05/05/2026 [employer] Comment on above: 1 Occurrences starting 05/05/2025 until 05/05/2026 End: 04-14-2026 Bilirubin.indirect [Mass/volume] in Serum or Plasma Bilirubin, direct Lab Routine Health care maintenance 1 Occurrences starting 04/14/2025 until 04/14/2026 [employer] Comment on above: 1 Occurrences starting 04/14/2025 until 04/14/2026 End: 03-06-2026 C-reactive protein C-reactive protein Lab Routine Inflammatory polyarthritis (CMS-HCC) Seronegative rheumatoid arthritis (CMS-HCC) Medication monitoring encounter 1 Occurrences starting 03/06/2025 until 03/06/2026 [employer] Phone: Comment on above: 1 Occurrences starting 03/06/2025 until 03/06/2026 End: 06-22-2026 C-reactive protein C-reactive protein Lab Routine Inflammatory polyarthritis (CMS-HCC) Seronegative rheumatoid arthritis (CMS-HCC) Medication monitoring encounter 1 Occurrences starting 06/22/2025 until 06/22/2026 [employer] Comment on above: 1 Occurrences starting 06/22/2025 until 06/22/2026 End: 03-06-2026 CBC W Auto Differential panel - Blood CBC auto differential Lab Routine Inflammatory polyarthritis (CMS-HCC) Seronegative rheumatoid arthritis (CMS-HCC) Medication monitoring encounter 1 Occurrences starting 03/06/2025 until 03/06/2026 [employer] Comment on above: 1 Occurrences starting 03/06/2025 until 03/06/2026 End: 04-14-2026 CBC W Auto Differential panel - Blood CBC auto differential Lab Routine Health care maintenance 1 Occurrences starting 04/14/2025 until 04/14/2026 [employer] Comment on above: 1 Occurrences starting 04/14/2025 until 04/14/2026 End: 05-05-2026 CBC W Auto Differential panel - Blood CBC auto differential Lab Routine Iron deficiency anemia, unspecified iron deficiency anemia type 1 Occurrences starting 05/05/2025 until 05/05/2026 [employer] Phone: Comment on above: 1 Occurrences starting 05/05/2025 until 05/05/2026 End: 06-22-2026 CBC W Auto Differential panel - Blood CBC auto differential Lab Routine Inflammatory polyarthritis ([facility]) Seronegative rheumatoid arthritis ([facility]) Medication monitoring encounter 1 Occurrences starting 06/22/2025 until 06/22/2026 [employer] Comment on above: 1 Occurrences starting 06/22/2025 until 06/22/2026 End: 04-14-2026 Clean Catch Urinalysis Clean Catch Urinalysis Lab Routine Health care maintenance 1 Occurrences starting 04/14/2025 until 04/14/2026 [employer] Comment on above: 1 Occurrences starting 04/14/2025 until 04/14/2026 End: 05-05-2026 Clinical Pathology Blood Smear Review Clinical Pathology Blood Smear Review Lab Routine Iron deficiency anemia, unspecified iron deficiency anemia type 1 Occurrences starting 05/05/2025 until 05/05/2026 [employer] Comment on above: 1 Occurrences starting 05/05/2025 until 05/05/2026 End: 04-14-2026 Comprehensive metabolic 2000 panel - Serum or Plasma Comprehensive metabolic panel Lab Routine Health care maintenance 1 Occurrences starting 04/14/2025 until 04/14/2026 [employer] Comment on above: 1 Occurrences starting 04/14/2025 until 04/14/2026 End: 04-14-2026 Cortisol Cortisol Lab Routine Health care maintenance 1 Occurrences starting 04/14/2025 until 04/14/2026 [employer] Comment on above: 1 Occurrences starting 04/14/2025 until 04/14/2026 End: 03-06-2026 Creatinine includes GFR, serum Creatinine includes GFR, serum Lab Routine Inflammatory polyarthritis ([facility]) Seronegative rheumatoid arthritis ([facility]) Medication monitoring encounter 1 Occurrences starting 03/06/2025 until 03/06/2026 [facility] Comment on above: 1 Occurrences starting 03/06/2025 until 03/06/2026 End: 06-22-2026 Creatinine includes GFR, serum Creatinine includes GFR, serum Lab Routine Inflammatory polyarthritis ([facility]) Seronegative rheumatoid arthritis ([facility]) Medication monitoring encounter 1 Occurrences starting 06/22/2025 until 06/22/2026 [facility] Comment on above: 1 Occurrences starting 06/22/2025 until 06/22/2026 End: 04-14-2026 Cyanocobalamin vitamin b-12 Vitamin B12 Lab Routine Health care maintenance 1 Occurrences starting 04/14/2025 until 04/14/2026 [employer] Comment on above: 1 Occurrences starting 04/14/2025 until 04/14/2026 End: 04-14-2026 DHEA-sulfate DHEA-sulfate Lab Routine Health care maintenance 1 Occurrences starting 04/14/2025 until 04/14/2026 [employer] Comment on above: 1 Occurrences starting 04/14/2025 until 04/14/2026 End: 04-14-2026 Dihydrotestosterone, S Dihydrotestosterone, S Lab Routine Health care maintenance 1 Occurrences starting 04/14/2025 until 04/14/2026 [employer] Comment on above: 1 Occurrences starting 04/14/2025 until 04/14/2026 End: 03-06-2026 Erythrocyte sedimentation rate Erythrocyte Sedimentation Rate (ESR) Lab Routine Inflammatory polyarthritis ([facility]) Seronegative rheumatoid arthritis ([facility]) Medication monitoring encounter 1 Occurrences starting 03/06/2025 until 03/06/2026 [facility] above: 1 Occurrences starting 03/06/2025 until 03/06/2026 End: 04-14-2026 Erythrocyte sedimentation rate Erythrocyte Sedimentation Rate (ESR) Lab Routine Health care maintenance 1 Occurrences starting 04/14/2025 until 04/14/2026 [employer] Comment on above: 1 Occurrences starting 04/14/2025 until 04/14/2026 End: 06-22-2026 Erythrocyte sedimentation rate Erythrocyte Sedimentation Rate (ESR) Lab Routine Inflammatory polyarthritis ([facility]) Seronegative rheumatoid arthritis ([facility]) Medication monitoring encounter 1 Occurrences starting 06/22/2025 until 06/22/2026 [employer] Comment on above: 1 Occurrences starting 06/22/2025 until 06/22/2026 End: 07-20-2026 Esophagogastroduodenoscopy EGD GI Routine Esophageal dysphagia 1 Occurrences starting 07/20/2025 until 07/20/2026 [employer] Phone: Comment on above: 1 Occurrences starting 07/20/2025 until 07/20/2026 End: 04-14-2026 Estradiol Estradiol Lab Routine Health care maintenance 1 Occurrences starting 04/14/2025 until 04/14/2026 [employer] Comment on above: 1 Occurrences starting 04/14/2025 until 04/14/2026 End: 04-14-2026 Ferritin [Mass/volume] in Serum or Plasma Ferritin Lab Routine Health care maintenance 1 Occurrences starting 04/14/2025 until 04/14/2026 [employer] Comment on above: 1 Occurrences starting 04/14/2025 until 04/14/2026 End: 04-14-2026 Follicle stimulating hormone Follicle stimulating horm one Lab Routine Health care maintenance 1 Occurrences starting 04/14/2025 until 04/14/2026 [employer] Comment on above: 1 Occurrences starting 04/14/2025 until 04/14/2026 End: 04-14-2026 Gamma glutamyl transferase [Enzymatic activity/volume] in Serum or Plasma GGT Lab Routine Health care maintenance 1 Occurrences starting 04/14/2025 until 04/14/2026 [employer] Comment on above: 1 Occurrences starting 04/14/2025 until 04/14/2026 End: 05-05-2026 Haptoglobin Haptoglobin Lab Routine Iron deficiency anemia, unspecified iron deficiency anemia type 1 Occurrences starting 05/05/2025 until 05/05/2026 [employer] Comment on above: 1 Occurrences starting 05/05/2025 until 05/05/2026 End: 04-14-2026 Hemoglobin A1c/Hemoglobin.total in Blood Hemoglobin A1c Lab Routine Health care maintenance 1 Occurrences starting 04/14/2025 until 04/14/2026 [employer] Comment on above: 1 Occurrences starting 04/14/2025 until 04/14/2026 End: 04-14-2026 Hepatitis C virus Ab [Presence] in Serum or Plasma by Immunoassay Hepatitis C(HCV) Ab w/ Reflex to PCR Lab Routine Health care maintenance 1 Occurrences starting 04/14/2025 until 04/14/2026 [employer] Comment on above: 1 Occurrences starting 04/14/2025 until 04/14/2026 End: 04-14-2026 High sensitivity CRP High sensitivity CRP Lab Routine Health care maintenance 1 Occurrences starting 04/14/2025 until 04/14/2026 [employer] Comment on above: 1 Occurrences starting 04/14/2025 until 04/14/2026 End: 04-14-2026 Homocysteine total Homocysteine total Lab Routine Health care maintenance 1 Occurrences starting 04/14/2025 until 04/14/2026 [employer] Comment on above: 1 Occurrences starting 04/14/2025 until 04/14/2026 End: 04-14-2026 Insulin Insulin Lab Routine Health care maintenance 1 Occurrences starting 04/14/2025 until 04/14/2026 [employer] Comment on above: 1 Occurrences starting 04/14/2025 until 04/14/2026 End: 04-14-2026 Insulin-Like GFB Protein 3 Insulin-Like GFB Protein 3 Lab Routine Health care maintenance 1 Occurrences starting 04/14/2025 until 04/14/2026 [employer] Comment on above: 1 Occurrences starting 04/14/2025 until 04/14/2026 End: 04-14-2026 Iron and TIBC Iron and TIBC Lab Routine Health care maintenance 1 Occurrences starting 04/14/2025 until 04/14/2026 [employer] Comment on above: 1 Occurrences starting 04/14/2025 until 04/14/2026 End: 04-14-2026 LDH LDH Lab Routine Health care maintenance 1 Occurrences starting 04/14/2025 until 04/14/2026 [employer] Comment on above: 1 Occurrences starting 04/14/2025 until 04/14/2026 End: 05-05-2026 LDH LDH Lab Routine Iron deficiency anemia, unspecified iron deficiency anemia type 1 Occurrences starting 05/05/2025 until 05/05/2026 [employer] Comment on above: 1 Occurrences starting 05/05/2025 until 05/05/2026 End: 04-14-2026 Lipid 1996 panel - Serum or Plasma Lipid profile Lab Routine Health care maintenance 1 Occurrences starting 04/14/2025 until 04/14/2026 [facility] above: 1 Occurrences starting 04/14/2025 until 04/14/2026 End: 04-14-2026 Lipoprotein a [Mass/volume] in Serum or Plasma Lipoprotein(a), S Lab Routine Health care maintenance 1 Occurrences starting 04/14/2025 until 04/14/2026 [facility] on above: 1 Occurrences starting 04/14/2025 until 04/14/2026 End: 03-06-2026 Liver panel Liver panel Lab Routine Inflammatory polyarthritis (CMS-HCC) Seronegative rheumatoid arthritis (CMS-HCC) Medication monitoring encounter 1 Occurrences starting 03/06/2025 until 03/06/2026 [employer] Comment on above: 1 Occurrences starting 03/06/2025 until 03/06/2026 End: 04-14-2026 Liver panel Liver panel Lab Routine Health care maintenance 1 Occurrences starting 04/14/2025 until 04/14/2026 [facility] above: 1 Occurrences starting 04/14/2025 until 04/14/2026 End: 05-05-2026 Liver panel Liver panel Lab Routine Iron deficiency anemia, unspecified iron deficiency anemia type Decreased appetite Hyperbilirubinemia 1 Occurrences starting 05/05/2025 until 05/05/2026 [employer] Comment on above: 1 Occurrences starting 05/05/2025 until 05/05/2026 End: 06-22-2026 Liver panel Liver panel Lab Routine Inflammatory polyarthritis (CMS-HCC) Seronegative rheumatoid arthritis ([facility]) Medication monitoring encounter 1 Occurrences starting 06/22/2025 until 06/22/2026 [facility] above: 1 Occurrences starting 06/22/2025 until 06/22/2026 End: 04-14-2026 Luteinizing hormone Luteinizing hormone Lab Routine Health care maintenance 1 Occurrences starting 04/14/2025 until 04/14/2026 [employer] Comment on above: 1 Occurrences starting 04/14/2025 until 04/14/2026 End: 04-14-2026 Magnesium [Mass/volume] in Serum or Plasma Magnesium Lab Routine Health care maintenance 1 Occurrences starting 04/14/2025 until 04/14/2026 [facility]: 1 Occurrences starting 04/14/2025 until 04/14/2026 End: 04-14-2026 Microalbumin - Albumin: Creatinine Urine Ratio Microalbumin - Albumin: Creatinine Urine Ratio Lab Routine Health care maintenance 1 Occurrences starting 04/14/2025 until 04/14/2026 [facility] on above: 1 Occurrences starting 04/14/2025 until 04/14/2026 End: 04-14-2026 Phosphate [Mass/volume] in Serum or Plasma Phosphorus Lab Routine Health care maintenance 1 Occurrences starting 04/14/2025 until 04/14/2026 [facility] on above: 1 Occurrences starting 04/14/2025 until 04/14/2026 End: 04-14-2026 POCT EKG POCT EKG ECG Routine Health care maintenance 1 Occurrences starting 04/14/2025 until 04/14/2026 [employer] Comment on above: 1 Occurrences starting 04/14/2025 until 04/14/2026 End: 04-14-2026 Progesterone Progesterone Lab Routine Health care maintenance 1 Occurrences starting 04/14/2025 until 04/14/2026 [employer] Comment on above: 1 Occurrences starting 04/14/2025 until 04/14/2026 End: 04-14-2026 Prolactin Prolactin Lab Routine Health care maintenance 1 Occurrences starting 04/14/2025 until 04/14/2026 [employer] Comment on above: 1 Occurrences starting 04/14/2025 until 04/14/2026 End: 04-14-2026 Sex hormone binding globulin Sex hormone binding globu selene Lab Routine Health care maintenance 1 Occurrences starting 04/14/2025 until 04/14/2026 [facility] on above: 1 Occurrences starting 04/14/2025 until 04/14/2026 End: 04-14-2026 Testosterone, Total and Free, S Testosterone, Total and Free, S Lab Routine Health care maintenance 1 Occurrences starting 04/14/2025 until 04/14/2026 [employer] Comment on above: 1 Occurrences starting 04/14/2025 until 04/14/2026 End: 04-14-2026 Thyrotropin [Units/volume] in Serum or Plasma TSH Lab Routine Health care maintenance 1 Occurrences starting 04/14/2025 until 04/14/2026 [facility] Comment on above: 1 Occurrences starting 04/14/2025 until 04/14/2026 End: 04-14-2026 Thyroxine (T4) free [Mass/volume] in Serum or Plasma T4, free Lab Routine Health care maintenance 1 Occurrences starting 04/14/2025 until 04/14/2026 [facility] Comment on above: 1 Occurrences starting 04/14/2025 until 04/14/2026 End: 04-14-2026 Triiodothyronine (T3) Free [Mass/volume] in Serum or Plasma T3, free Lab Routine Health care maintenance 1 Occurrences starting 04/14/2025 until 04/14/2026 [facility] Comment on above: 1 Occurrences starting 04/14/2025 until 04/14/2026 End: 04-14-2026 Urate [Mass/volume] in Serum or Plasma Uric acid Lab Routine Health care maintenance 1 Occurrences starting 04/14/2025 until 04/14/2026 [facility] Comment on above: 1 Occurrences starting 04/14/2025 until 04/14/2026 End: 05-03-2026 Urinalysis Urinalysis Lab Routine Dysuria Frequency of urination 1 Occurrences starting 05/03/2025 until 05/03/2026 [facility] Work Phone: Comment on above: 1 Occurrences starting 05/03/2025 until 05/03/2026 End: 04-14-2026 Vitamin D 25 hydroxy Vitamin D 25 hydroxy Lab Routine Health care maintenance 1 Occurrences starting 04/14/2025 until 04/14/2026 [facility] Comment on above: 1 Occurrences starting 04/14/2025 until 04/14/2026 Immunizations Immunization Date Immunization Notes Care Provider Fa cility 11-14-2022 Covid-19, Mrna, Lnp- s, Bivalent, Pf, 30mcg/0.3 ml Jack Stubbs MD Work Phone: [facility] 11-14-2022 influenza, injectabl e, quadrivalent, preservative free Jack Stubbs MD Work Phone: [facility] 11-14-2022 influenza virus vacc ine, unspecified formulation Jack Stubbs MD Work Phone: [facility] 12-25-2021 zoster vaccine recombinant Jack Stubbs MD Work Phone: [facility] 10-24-2021 Influenza Vaccine, Quadrivalent, Adjuvanted Jack Stubbs MD Work Phone: [facility] 10-24-2021 zoster vaccine recombinant Jack Stubbs MD Work Phone: [facility] 07-25-2021 tetanus toxoid, redu doe diphtheria toxoid, and acellular pertussis vaccine, adsorbed Jack Stubbs MD Work Phone: [facility] 01-19-2021 COVID-19, mRNA, LNP- S, PF, 100mcg/0.5mL Dose Jack Stubbs MD Work Phone: [facility] 12-22-2020 COVID-19, mRNA, LNP- S, PF, 100mcg/0.5mL Dose Jack Stubbs MD Work Phone: [facility] 08-27-2020 Influenza, High-dose , Quadrivalent Jack Stubbs MD Work Phone: [facility] 03-15-2020 pneumococcal conjuga te vaccine, 13 valent Jack Stubbs MD Work Phone: [facility] 09-15-2019 influenza, injectabl e, quadrivalent, preservative free Jack Stubbs MD Work Phone: [facility] 12-23-2018 pneumococcal polysaccharide vaccine, 23 valent Jack Stubbs MD Work Phone: [facility] 09-15-2017 influenza, injectabl e, quadrivalent, contains preservative Jack Stubbs MD Work Phone: [facility] 09-15-2017 pneumococcal polysaccharide vaccine, 23 valent Jack Stubbs MD Work Phone: [facility] 08-26-2016 influenza, injectabl e, quadrivalent, contains preservative Jack Stubbs MD Work Phone: [facility] 09-28-2015 influenza, seasonal, injectable Jack Stubbs MD Work Phone: [facility] 02-09-2015 zoster vaccine, live Jack Stubbs MD Work Phone: [facility] 12-02-2013 influenza, seasonal, injectable, preservative free Jack Stubbs MD Work Phone: [facility] 01-30-2011 tetanus toxoid, redu doe diphtheria toxoid, and acellular pertussis vaccine, adsorbed Jack Stubbs MD Work Phone: [facility] Payers Date Payer Category Payer Managed Care Other (unspecified) [id number] 2023 Private Health Insurance [id number] 2019 Private Health Insurance [id number] 2016 Private Health Insurance [id number] 1950 Unknown [id number] 2.16.840.1.493415.3.579.2.175 1950 Unknown [id number] 2.16.840.1.913763.3.579.2.175 1951 Unknown [id number] 2.16.840.1.077873.3.579.2.175 1951 Unknown [id number] 2.16.840.1.537706.3.579.2.175 1951 Unknown [id number] 2.16.840.1.583442.3.579.2.175 1951 Unknown [id number] 2.16.840.1.925305.3.579.2.175 1951 Unknown [id number] 2.16.840.1.018079.3.579.2.175 1951 Unknown [id number] 2.16.840.1.052545.3.579.2.1286 1951 Unknown [id number] 2.16.840.1.314960.3.579.2.1286 1951 Unknown [id number] 2.16.840.1.310432.3.579.2.128 1951 Unknown [id number] 2.16.840.1.151113.3.579.2.128 1951 Unknown [id number] 2.16.840.1.641997.3.579.2.1285 1951 Unknown [id number] 2.16.840.1.805857.3.579.2.1285 1951 Unknown [id number] 2.16.840.1.332525.3.579.2.128 1951 Unknown [id number] 2.16.840.1.231987.3.579.2.128 1951 Unknown [id number] 2.16.840.1.462940.3.579.2.1285 1951 Unknown [id number] 2.16.840.1.720220.3.579.2.128 1951 Unknown [id number] 2.16.840.1.947160.3.579.2.128 1951 Unknown [id number] 2.16.840.1.606737.3.579.2.128 1951 Unknown [id number] 2.16.840.1.709405.3.579.2.128 1951 Unknown [id number] 2.16.840.1.101222.3.579.2.1285 1951 Unknown [id number] 2.16.840.1.894267.3.579.2.12804-1950 Unknown [id number] 2.16.840.1.768955.3.579.2.1285 1951 Unknown [id number] 2.16.840.1.648946.3.579.2.1285 1951 Unknown [id number] 2.16.840.1.268579.3.579.2.1285 1951 Unknown [id number] 2.16.840.1.811232.3.579.2.128 1951 Unknown [id number] 2.16.840.1.611634.3.579.2.1285 1951 Unknown [id number] 2.16.840.1.308874.3.579.2.1285 1951 Unknown [id number] 2.16.840.1.633331.3.579.2.1285 1951 Unknown [id number] 2.16.840.1.563485.3.579.2.1285 1951 Unknown [id number] 2.16.840.1.804600.3.579.2.1285 1951 Unknown [id number] 2.16.840.1.653370.3.579.2.1285 1951 Unknown [id number] 2.16.840.1.747511.3.579.2.1285 1951 Unknown [id number] 2.16.840.1.108886.3.579.2.1285 1951 Unknown [id number] 2.16.840.1.662335.3.579.2.1285 1951 Unknown [id number] 2.16.840.1.056292.3.579.2.1285 1951 Unknown [id number] 2.16.840.1.969130.3.579.2.1285 1951 Unknown [id number] 2.16.840.1.293970.3.579.2.1286 1951 Unknown [id number] 2.16.840.1.516298.3.579.2.1285 1951 Unknown [id number] 2.16.840.1.300476.3.579.2.128 1951 Unknown [id number] 2.16.840.1.442260.3.579.2.128 1951 Unknown [id number] 2.16.840.1.314645.3.579.2.128 1951 Unknown [id number] 2.16.840.1.108205.3.579.2.128 1951 Unknown [id number] 2.16.840.1.733047.3.579.2.1285 1951 Unknown [id number] 2.16.840.1.992950.3.579.2.128 1951 Unknown [id number] 2.16.840.1.717962.3.579.2.1285 1951 Unknown [id number] 2.16.840.1.574770.3.579.2.1285 1951 Unknown [id number] 2.16.840.1.662090.3.579.2.1285 1951 Unknown [id number] 2.16.840.1.744136.3.579.2.128 1951 Unknown [id number] 2.16.840.1.587012.3.579.2.1285 1951 Unknown [id number] 2.16.840.1.595795.3.579.2.128 1951 Unknown [id number] 2.16.840.1.890966.3.579.2.1285 1951 Unknown [id number] 2.16.840.1.082294.3.579.2.1286 1951 Unknown [id number] 2.16.840.1.365514.3.579.2.1286 Social History Date Type Detail Facility Start: 03-02-2024 Tobacco smoking stat NHIS Ex-smoker [facility] End: 11-09-2017 [facility] of [facility] End: 11-09-2017 History of tobacco use Cigarette Smoker [facility] Start: 03-02-2024 Tobacco use and exposure Smokeless tobacco non-user [facility] Start: 11-04-2024 End: 07-20-2025 Alcoholic beverage intake Current drinker of alcohol (finding) [facility] Start: 11-20-2020 End: 11-04-2024 [facility]coholic [facility] Start: 11-20-2020 End: 10-20-2024 Tobacco use panel [facility] Adolescent depressio n screening assessment 0 [facility] Start: 07-18-2021 Alcohol Comment daily [facility] Start: 1950 Sex assigned at Not on file [facility] Start: 06-12-2015 Sex Female (finding) [facility] Goals Date Patient Goal Desired Activity [...] at check out//07/20/2025/cac [facility]-20-2025 Telephone encounter Note EGD/KB 08/09/2025 @ [facility] ASA3, MAC, TFL Instructions given at check out/07/20/2025/cac [facility] 07-20-2025 History of Present illness Narrative Subjective: [...] chronic heart failure with preserved ejection fraction ([facility]) (02/20/2022), Anxiety, Arthritis, Asthma, Cellulitis of left lower extremity (02/19/2022), COPD (chronic obstructive pulmonary disease) ([facility] (03/14/2019), Dyslipidemia, Esophageal dysphagia (2023), Heart murmur, Hypertension, Low back pain, Open wound of left lower leg (01/20/2022), Parkinson's disease, Sepsis due to Staphylococcus aureus ([facility]) (01/17/2022), Tear of right hamstring (07/03/2020), and [...] this might improve her symptoms. EGD at [facility], ASA 3, MAC. documented in this encounter [facility] 07-19-2025 Miscellaneous Notes Prior Authorization/Notification is not required for the requested service(s). This [email or web address] member's plan does not currently require a prior authorization for these services. If you have general questions about the prior authorization requirements, please call us at [phone] or visit [employer] > Clinician Resources > Advance and Admission Notification Requirements. The number above acknowledges your notification. Please write this number down for future reference. Notification is not a guarantee of coverage or payment. Decision ID #: [id number] The number above acknowledges your inquiry and [...] keyboard_arrow_up Patient name BEENA DIAZ Member number [id number] Group number [id number] Product POS Relationship Spouse Effective date 11/09/2024 Termination date 11/08/2025 Insurance type Commercial Verbal language preference - Written language preference - info A future timeline may be available for this member. For future coverage please call the telephone number located on the back of the member's Medical ID card. Submitting provider details keyboard_arrow_up Name Isidro Woodall Tax ID number [id number] Address [address], [place] [address] Status In network Service setting keyboard_arrow_up Place [...] search. Name ISIDRO WOODALL Tax ID number [id number] Address [address], [place] [address] T. [phone] Status In network Diagnosis code details keyboard_arrow_up [...] of service Code sequence primary Procedure code 90159 NJX AA&/STRD TFRML EPI CERVICAL/THORACIC 1 LEVEL Associated diagnosis code M54.12 Radiculopathy, cervical region Start/end dates 07/19/2025 - 10/08/2025 Service Details Pain Management Count info 1 Standard of Measure info Visits Frequency info Time(s) Total info 1 Selected servicing provider Name ISIDRO WOODALL Tax ID number [id number] Address [address], [place] [address] T. [phone] Status In network documented in this encounter [facility] 07-19-2025 Telephone encounter Note Prior Authorization/Notification is not required for the requested service(s). This [facility] Commercial member's plan does not currently require a prior authorization for these services. If you have general questions about the prior authorization requirements, please call us at [phone] or visit [employer] > Clinician Resources > Advance and Admission Notification Requirements. The number above acknowledges your notification. Please write this number down for future reference. Notification is not a guarantee of coverage or payment. Decision ID #: [id number] The number above acknowledges your inquiry and [...] keyboard_arrow_up Patient name BEENA DIAZ Member number [id number] Group number [id number] Product POS Relationship Spouse Effective date 11/09/2024 Termination date 11/08/2025 Insurance type Commercial Verbal language preference - Written language preference - info A future timeline may be available for this member. For future coverage please call the telephone number located on the back of the member's Medical ID card. Submitting provider details keyboard_arrow_up Name Isidro Woodall Tax ID number [id number] Address [address], [place] [address] Status In network Service setting keyboard_arrow_up Place [...] search. Name ISIDRO WOODALL Tax ID number [id number] Address [address], [place] [address] T. [phone] Status In network Diagnosis code details keyboard_arrow_up [...] of service Code sequence primary Procedure code 41526 NJX AA&/STRD TFRML EPI CERVICAL/THORACIC 1 LEVEL Associated diagnosis code M54.12 Radiculopathy, cervical region Start/end dates 07/19/2025 - 10/08/2025 Service Details Pain Management Count info 1 Standard of Measure info Visits Frequency info Time(s) Total info 1 Selected servicing provider Name ISIDRO WOODALL Tax ID number [id number] Address [address], [place] [address] T. [phone] Status In network [facility] 07-14-2025 Miscellaneous Notes Medication Refill request: Medication Name and Strength: clonazePAM (KlonoPIN) 0.5 mg tablet Current dose & Frequency: 1 tablet in the morning and 3 tablets at night 30 day or 90 day supply preferred: 90 Pharmacy Name: [facility] pharmacy [phone] Request was made by: Patient Med Refill Med: clonazePAM (KlonoPIN) 0.5 mg tablet Days Of Supply : 90 Patients Last Office Visit: 05/17/25 Next Office Visit: 08/01/25 Current Pharmacy :[id number] - [place], [place] - [address] [address] [address], [facility] [address] documented in this [facility] 07-14-2025 Telephone encounter Note Medication Refill request: Medication Name and Strength: clonazePAM (KlonoPIN) 0.5 mg tablet Current dose & Frequency: 1 tablet in the morning and 3 tablets at night 30 day or 90 day supply preferred: 90 Pharmacy Name: [facility] [phone] Request was made by: Patient [facility] 07-14-2025 Telephone encounter Note Med Refill Med: clonazePAM (KlonoPIN) 0.5 mg tablet Days Of Supply : 90 Patients Last Office Visit: 05/17/25 Next Office Visit: 08/01/25 Current Pharmacy :[id number] [place] - [address] [address] [address] [address], [place] [address] [facility] 07-13-2025 History of Present illness Narrative [facility] Family Medicine/Sports Medicine SUBJECTIVE: Beena Diaz is [...] hand Menopause Decreased body height Parkinson's disease ([facility]) Hypertension Mixed hyperlipidemia Lumbar degenerative disc disease Osteoarthritis of facet joint of lumbar spine COPD (chronic obstructive pulmonary disease) ([facility]) Tear of right hamstring Right rotator cuff tear arthropathy Livedo reticularis Oral lesion Chronic heart failure with preserved ejection fraction ([facility]) Vasovagal episode Nonrheumatic mitral valve regurgitation [...] X-ray chest 2 views; Future COPD exacerbation ([facility]) - doxycycline (VIBRA-TABS) 100 mg tablet; Take [...] Carrillo 07/13/25 1617 documented in this encounter [facility] 07-13-2025 Instructions CIARRA Osei - 07/13/2025 1:00 PM EDT Prednisone in the morning with food. Doxycyline twice a day for 7 days. documented in this encounter [facility] 07-04-2025 Miscellaneous Notes Is it the same [...] detailed message to return my call on [employer] to schedule a follow-up with Dr. Silva for 07/05/2025 at 14:00 or 07/06/2025 at 15:30. [facility] Telephone encounter Note Is it the [...] patient is taking 1 tab in AM [facility] 07-04-2025 Telephone encounter Note Can you try to find her a closer follow up to discuss these changes? OK to use DBS slot. [facility] 07-04-2025 Telephone encounter Note I have attempted to contact this patient by phone with the following results: left detailed message to return my call on [employer] to schedule a follow-up with Dr. Silva for 07/05/2025 at 14:00 or 07/06/2025 at 15:30. [facility] 07-03-2025 Miscellaneous Notes Patient called in [...] I have messaged Dr. Silva directly through [employer] and we will update the patient's accordingly after our discussion. Mariajose Clemente MD, MPH documented in this encounter [facility] 07-03-2025 Telephone encounter Note Patient called in asking if Dr. Clemente could change medication from Methotrexate. [place] states patient is in a lot of pain from having Parkinson's. [place] states he just want his to get some relief [facility] 07-03-2025 Telephone encounter Note I was [...] I have messaged Dr. Silva directly through [employer] and we will update the patient's accordingly after our discussion. Mariajose Clemente MD, MPH [facility] 07-03-2025 History of Present illness Narrative . Ines Uribe PA-C 07/03/25804 documented in this encounter [facility] 06-30-2025 Miscellaneous Notes Medication Refill request: Medication Name and Strength:amantadine (SYMMETREL) 100 mg tablet Current dose & Frequency: actuTake 1-2 tabs at 6am and 1 tab at 12pm PO. ally taking - not what is listed on the prescription label 30 day or 90 day supply preferred: Pharmacy Name: [facility] [place] - [address] [address] [address] [address], 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 Sheep Farm Worker gave verbal order for medication to avoid a delay in treatment. 90 day supply with 3 + refills. documented in this encounter [facility] 06-30-2025 Telephone encounter Note Medication Refill request: Medication Name and Strength:amantadine (SYMMETREL) 100 mg tablet Current dose & Frequency: actuTake 1-2 tabs at 6am and 1 tab at 12pm PO. ally taking - not what is listed on the prescription label 30 day or 90 day supply preferred: Pharmacy Name: [facility] #[facility] [place] - [address] [address] [address] [address], [facility] [address] Request was made by:Patient - patient stated that pharmacy do not have script to fill medication [facility] 06-30-2025 Telephone encounter Note Sheep Farm Worker spoke with pharmacist at [facility] and was told that they did not have prescription that was written on 06/20/2025 on file. Sheep Farm Worker gave verbal order for medication to avoid a delay in treatment. 90 day supply with 3 + refills. [facility] 06-29-2025 Miscellaneous Notes Patient called stating she [...] I would like her to present to [facility]. Take your time when eating, chew [...] my call back number. Also sent a [employer] message. documented in this encounter [facility] 06-29-2025 Telephone encounter Note Patient called stating she is having terrible dysphagia. Patient got a fluoroscopy swallow study yesterday and it was normal. Patient wants EGD with dilation. Patient has not been seen since 04/2024. Scheduled appointment on 10/13 with Ines. [facility] 06-29-2025 Telephone encounter Note Will leave for Ines to review upon her return. If she is unable to tolerate any oral intake, I would like her to present to [facility]. Take your time when eating, chew [...] minutes prior to breakfast at this time. [facility] Work Phone: 06-29-2025 Telephone encounter Note Staff, [...] patient is already scheduled for. Thank you. [facility] Work Phone: 06-29-2025 Telephone encounter Note I reviewed previous results. There was no identifiable stricture and post-dilation inspection showed no mucosal disruption. This would suggest that her swallowing problem may well be due to something other than esophageal stricture. You can put her in for an office visit with me, okay to use a 10:45 a.m. spot. [employer] [facility] 06-29-2025 Telephone encounter Note Called and left a detailed VMM for patient with my call back number. Also sent a [employer] message. [facility] 06-29-2025 Miscellaneous Notes Patient had a visit [...] physician Physical Therapy: daily hep and stretches Mini Shifter: No Pain Management: Injections & Medication Prior Surgery: None Pain Score: 9/10 No blood thinner No cardiac device Not diabetic Iodine Allergies: Iodinated Contrast Media Left patient a voicemail to return call to schedule repeat BL C3-[address]I injection with [address]. Woodall, and 3 month follow-up with Ofelia Pierce NP. *separate into 2 appointments documented in this encounter [facility] 06-29-2025 Telephone encounter Note Patient had a visit 04/25/2025 with Ofelia, per notes patient will call if ready for injections, patient's daughter called informed that mom is indeed ready, can an order please be placed? Thanks! [facility] 06-29-2025 Telephone encounter Note Order placed. Please call to schedule. Thank you! Previous Evaluation and Treatment Diagnostics: MRI Cervical 12/2024 Medications tried: OTC, NSAIDS, Muscle Relaxants, and Narcotics Home Exercise Program: Guided by physician Physical Therapy: daily hep and stretches Mini Shifter: No Pain Management: Injections & Medication Prior Surgery: None Pain Score: 9/10 No blood thinner No cardiac device Not diabetic Iodine Allergies: Iodinated Contrast Media [facility] 06-29-2025 Telephone encounter Note Left patient a voicemail to return call to schedule repeat BL C3-[address] Cervical TFESI injection with Dr. Woodall, and 3 month follow-up with Ofelia Pierce NP. *separate into 2 appointments [facility] 06-22-2025 History of Present illness Narrative Images from the original note were not included. 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 She also notices discomfort in the bilateral feet as well as the ankles. 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 Family Hx: -noncontributory Interval History: The patient [...] hand Menopause Decreased body height Parkinson's disease ([facility]) Hypertension Mixed hyperlipidemia Lumbar degenerative disc disease Osteoarthritis of facet joint of lumbar spine COPD (chronic obstructive pulmonary disease) ([facility]) Tear of right hamstring Right rotator cuff tear arthropathy Livedo reticularis Oral lesion Chronic heart failure with preserved ejection fraction ([facility]) Vasovagal episode Nonrheumatic mitral valve regurgitation Chronic pain syndrome Neck pain, chronic Cervical radiculopathy reviewed. Past Surgical History: Procedure Laterality Date AUGMENTATION MAMMAPLASTY 11/09/2018 silicone COLONOSCOPY 10/20/2015 Rept 10 yrs ESOPHAGOGASTRODUODENOSCOPY with biopsies and dilatioin N/A 05/24/2024 Performed by Colleen Russell MD at [facility] ENDOSCOPY OTHER SURGICAL HISTORY spinal [...] chronic heart failure with preserved ejection fraction ([facility]) 02/20/2022 Anxiety Arthritis Asthma Cellulitis of left lower extremity 02/19/2022 COPD (chronic obstructive pulmonary disease) ([facility]) 03/14/2019 Dyslipidemia Esophageal dysphagia 2023 Heart murmur Hypertension Low back pain Open wound of left lower leg 01/20/2022 Parkinson's disease Sepsis due to Staphylococcus aureus ([facility]) 01/17/2022 Tear of right hamstring 07/03/2020 Visual [...] Expiration Date: 06/22/2026 Release to patient via [employer]?: Immediate [1] CBC auto differential Standing Status: [...] Follow-up: -3 months Mariajose Clemente MD, MPH [facility] [address] [place] [address] Total [id number]-[id number] time was 45 minutes with more than [...] for your understanding. documented in this encounter [facility] 06-22-2025 Instructions Mariajose Clemente MD MPH - [...] injections with Ofelia documented in this encounter [facility] 06-19-2025 Miscellaneous Notes Medication Refill request: Medication Name and Strength: amantadine (SYMMETREL) 100 mg tablet Current dose & Frequency: Take 1-2 tabs at 6am and 1 tab at 12pm PO. 30 day or 90 day supply preferred: 30 Pharmacy Name: [facility] [address] [place] [address] - Request was made by: Patient Refill request : amantadine (SYMMETREL) 100 mg tablet Last Filled : 01/26/2025 Last OV : 05/17/2025 Next OV : 08/01/2025 Reviewed by SHIP SCALER. Pend for signature. documented in this encounter [facility] 06-19-2025 Telephone encounter Note Medication Refill request: Medication Name and Strength: amantadine (SYMMETREL) 100 mg tablet Current dose & Frequency: Take 1-2 tabs at 6am and 1 tab at 12pm PO. 30 day or 90 day supply preferred: 30 Pharmacy Name: [facility] [address] [place] [address] - Request was made by: Patient [facility] 06-19-2025 Telephone encounter Note Refill request : amantadine (SYMMETREL) 100 mg tablet Last Filled : 01/26/2025 Last OV : 05/17/2025 Next OV : 08/01/2025 Reviewed by SHIP SCALER. Pend for signature. [facility] 05-31-2025 Miscellaneous Notes Patient called and asked if Dr. Silva would be okay with her doing her Physical Therapy and Speech Therapy [facility] in [place] instead of [facility] because it is closer to her so she will not have to travel so far. If this is okay she asked to have her referral faxed to [phone]. Patient can be reached back at [phone] Yes that is fine, please fax orders from 05/17 as she requested Sheep Farm Worker has faxed orders from 05/17 to [facility] documented in this encounter [facility] 05-31-2025 Telephone encounter Note Patient called and asked if Dr. Silva would be okay with her doing her Physical Therapy and Speech Therapy [facility] in [place] instead of [facility] because it is closer to her so she will not have to travel so far. If this is okay she asked to have her referral faxed to [phone]. Patient can be reached back at [phone] [facility] 05-31-2025 Telephone encounter Note Yes that is fine, please fax orders from 05/17 as she requested [facility] 05-31-2025 Telephone encounter Note Sheep Farm Worker has faxed orders from 05/17 to [facility] 05-17-2025 History of Present illness Narrative Summary: Progress Note Images from the original note were not included. [address] [facility] [id number] Patient: Beena Diaz Date of : 1950 [...] chronic heart failure with preserved ejection fraction ([facility]) 02/20/2022 Anxiety Arthritis Asthma Cellulitis of left lower extremity 02/19/2022 COPD (chronic obstructive pulmonary disease) ([facility]) 03/14/2019 Dyslipidemia Esophageal dysphagia 2023 Heart murmur Hypertension Low back pain Open wound of left lower leg 01/20/2022 Parkinson's disease Sepsis due to Staphylococcus aureus ([facility]) 01/17/2022 Tear of right hamstring 07/03/2020 Visual impairment glasses Family History Problem Relation Age of Onset Diabetes Father Heart disease Father CABG at age 65 Colon cancer Neg Hx Anesthesia problems Neg Hx Past Surgical History: Procedure Laterality Date AUGMENTATION MAMMAPLASTY 11/09/2018 silicone COLONOSCOPY 10/20/2015 Rept 10 yrs ESOPHAGOGASTRODUODENOSCOPY with biopsies and dilatioin N/A 05/24/2024 Performed by Colleen Russell MD at [facility] ENDOSCOPY OTHER SURGICAL HISTORY spinal [...] other health record Jose Vera, MS3 [facility] Trice Silva MD documented in this encounter [facility] 05-17-2025 Instructions Trice Silva MD - [...] want vyalev pump documented in this encounter [facility] 05-09-2025 Miscellaneous Notes Animal Keeper Head spoke with Annalise Rodriguez regarding Dr. Dominguez requesting this patient receive IV hydration weekly, same as patient received on 05/05/25. As of now, there is no standing order placed for IV hydration. Sheep Farm Worker informed Annalise to reference the documentation from MARTIN Fernandez on 05/05/25 which outlines the process for submitting the order to the [facility]. Also, informed Annalise that Dr. Hebert's note on 05/05/25, specifically has the type of IV solution and hours to be infused. Annalise stated she had not read the notes. She would read the notes and call screenplay writer with any questions. documented in this encounter [facility] 05-09-2025 Telephone encounter Note Animal Keeper Head spoke with Annalise Rodriguez regarding Dr. Dominguez requesting this patient receive IV hydration weekly, same as patient received on 05/05/25. As of now, there is no standing order placed for IV hydration. Sheep Farm Worker informed Annalise to reference the documentation from MARTIN Fernandez on 05/05/25 which outlines the process for submitting the order to the [facility]. Also, informed Annalise that Dr. Hebert's note on 05/05/25, specifically has the type of IV solution and hours to be infused. Annalise stated she had not read the notes. She would read the notes and call screenplay writer with any questions. [facility] 05-05-2025 Miscellaneous Notes Spoke with patient family and home health. Due to chronic dehydration, increased creatinine, patient family requesting to have IV bolus. Discussed with home health, patient to have this done at infusion center. Ordered 1L D5 LR to be given over [address] Angelica Hebert DO documented in this encounter [facility] 05-05-2025 Telephone encounter Note Spoke with patient family and home health. Due to chronic dehydration, increased creatinine, patient family requesting to have IV bolus. Discussed with home health, patient to have this done at infusion center. Ordered 1L D5 LR to be given over [address] Angelica Hebert DO [facility] 05-03-[address] Janell Hebert called and asked to speak with Dr. Silva regarding the patient. She asked for a call back at [phone] Hebert reports patient has recent weight loss which they are working her up for and cognitive decline. She requested if any medications could be eliminated I suggested tapering off amantadine and possibly clonazepam as those can cause cognitive changes. Will see patient early May as planned. Sheep Farm Worker received a call from patients . He would like to speak with Dr. Silva or nurse. Caller received very bad news from MRI in the brain .Caller very concerned about results and would like some advise on treatments he can start for his . Caller expressed great concern. Sheep Farm Worker marking High Priority. Please call back patients [place] at [phone] Please advise, thank you I tried to [...] are nonspecific). Please chare this with patient/family. Sheep Farm Worker relayed Dr. Silva's response to patient's spouse.Patient's spouse stated that patient has lost a lot of weight and he is wondering if patient is anorexic and he knows that that can play a role in her cognitive issues. He is asking if patient should possibly have IV hydration and enteral feedings. His daughters are in medical field and they have researched these. Sheep Farm Worker asked if they have talked to PCP about this patient spouse stated that he had spoken with them. I am not sure that she is to the point that she would need IV or enteral nutrition, but I have not seen her since her decline. She needs to talk to her PCP for these concerns. documented in this encounter [facility] 05-03-[address] Janell Hebert called and asked to speak with Dr. Silva regarding the patient. She asked for a call back at [phone] [facility] 05-03-2025 Telephone encounter Note I returned call. Dr. Hebert reports patient has recent weight loss which they are working her up for and cognitive decline. She requested if any medications could be eliminated I suggested tapering off amantadine and possibly clonazepam as those can cause cognitive changes. Will see patient early May as planned. [facility] 05-03-2025 Telephone encounter Note Sheep Farm Worker received a call from patients . He would like to speak with Dr. Silva or nurse. Caller received very bad news from MRI in the brain .Caller very concerned about results and would like some advise on treatments he can start for his . Caller expressed great concern. Sheep Farm Worker marking [employer]. Please call back patients [place] at [phone] Please advise, thank you [facility] 05-03-2025 Telephone encounter Note I tried [...] are nonspecific). Please chare this with patient/family. [facility] 05-03-2025 Telephone encounter Note Sheep Farm Worker relayed Dr. Silva's response to patient's spouse.Patient's spouse stated that patient has lost a lot of weight and he is wondering if patient is anorexic and he knows that that can play a role in her cognitive issues. He is asking if patient should possibly have IV hydration and enteral feedings. His daughters are in medical field and they have researched these. Sheep Farm Worker asked if they have talked to PCP about this patient spouse stated that he had spoken with them. [facility] 05-03-2025 Telephone encounter Note I am not sure that she is to the point that she would need IV or enteral nutrition, but I have not seen her since her decline. She needs to talk to her PCP for these concerns. [facility] 05-03-2025 History of Present illness Narrative 05/03/2025 Beena Edwardsnicholas Diaz [address] [place] [address] : 1950 Dear Jose Beena Edwards Joe, It was a pleasure seeing you as a patient at [facility] [employer]. Our assessment and recommendations are as follows: [...] the direction of your primary provider and/or android ui developer. Cervical: Your cervical cancer screeing is up-to-date. You last pap smear was completed in 2022. Continue screening at the recommendation of your primary care provider and/or android ui developer. Lung: Based upon your tobacco use history [...] as you have been following with your stack attendant/mailroom associate on a routine basis. Please continue to [...] - recommend patient to be evaluated by LIFE INSURANCE UNDERWRITER also recommended adding on ensure with each [...] you for participating in [facility]. We look forward to seeing you at your next encounter. Please feel free to contact us with any additional questions or concerns. Sincerely, Janell Hebert, DO [facility] CHIEF COMPLAINT: Beena Diaz presents to [facility] for her initial examination. HISTORY OF PRESENT ILLNESS: Beena Diaz presents to [facility] for her initial examination. She lists her [...] chronic heart failure with preserved ejection fraction ([facility]) 02/20/2022 Anxiety Arthritis Asthma Cellulitis of left lower extremity 02/19/2022 COPD (chronic obstructive pulmonary disease) ([facility]) 03/14/2019 Dyslipidemia Esophageal dysphagia 2023 Heart murmur Hypertension Low back pain Open wound of left lower leg 01/20/2022 Parkinson's disease Sepsis due to Staphylococcus aureus ([facility]) 01/17/2022 Tear of right hamstring 07/03/2020 Visual impairment glasses PAST SURGICAL HISTORY: Past Surgical History: Procedure Laterality Date AUGMENTATION MAMMAPLASTY 11/09/2018 silicone COLONOSCOPY 10/20/2015 Rept 10 yrs ESOPHAGOGASTRODUODENOSCOPY with biopsies and dilatioin N/A 05/24/2024 Performed by Colleen Russell MD at [facility] ENDOSCOPY OTHER SURGICAL HISTORY spinal [...] due to Parkinson's, dyskinesias 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 Sleep: Has a history of chronic [...] 189 >=140 mg/dL Final Test Performed by: [place] [address] Pulley Man: Sam Dukes Ph.D.; CLIA# [id number] APOLIPOPROTEIN B 04/25/2025 66 mg/dL Final REFERENCE VALUE Desirable: <90 Above Desirable: 90-99 Borderline high: 100-119 High: 120-139 Very high: > or = 140 Test Performed by: [place] [address] Pulley Man: Sam Dukes Ph.D.; CLIA# [id number] BILIRUBIN,DIRECT 04/25/2025 0.3 <=0.4 mg/dL Final WBC [...] its performance characteristics determined by [facility] in a manner consistent with CLIA requirements. This test has not been cleared or approved by the U.S. Food and Drug Administration. Test Performed by: [facility] - [facility] [address] [place] [address] Pulley Man: Sam Dukes Ph.D.; CLIA# [id number] ESR, Erythrocyte Sedimentation Rate 04/25/2025 67 (H) [...] infection suspected, recommend repeat testing (>2 months). Tfjbkl-eh-khxwib ratio is <1.0. HS CRP 04/25/2025 0.020 0.000 - 0.744 mg/dL Final HOMOCYSTEINE 04/25/2025 36.45 (H) 3.36 - 20.44 umol/L Final IGFBP-3 04/25/2025 4.9 2.8 - 5.7 mcg/mL Final Test Performed by: [facility] [address] [place] [address] Pulley Man: Sam Dukes Ph.D.; CLIA# [id number] INSULIN 04/25/2025 2.24 1.00 - 23.00 uIU/mL [...] considered a risk enhancing factor by the [employer]. This test has been modified from the machine tool designer's instructions. Its performance characteristics were determined by [facility] in a manner consistent with CLIA requirements. This test has not been cleared or approved by the U.S. Food and Drug Administration. Test Performed by: [facility] - [address] [address] Pulley Man: Sam Dukes Ph.D.; CLIA# [id number] LUTEINIZING HORMONE 04/25/2025 0.9 mIU/mL Final MAGNESIUM [...] name Result Flag Units RefIntvl Testosterone by Warehouse Supervisor 3Rd Shift 13 ng/dL 5-32 REFERENCE INTERVAL: Testosterone by Warehouse Supervisor 3Rd Shift Females Premenopausal 9-55 ng/dL Postmenopausal 5-32 ng/dL INTERPRETIVE INFORMATION: Testosterone by Warehouse Supervisor 3Rd Shift Free or bioavailable testosterone measurements may provide supportive information. For individuals on testosterone-suppressing hormone therapies (e.g., antiandrogens or estrogens), refer to cisgender female reference intervals. For a complete set of all established reference intervals, refer to [employer]ck/Tests/Pub/[id number]. This test was developed and its performance characteristics determined by [facility]. It has not been cleared or approved by the US Food and Drug Administration. This test was performed in a CLIA certified laboratory and is intended for clinical purposes. Sex Hormone Binding Globulin 65 nmol/L 17-125 REFERENCE INTERVAL: Sex Hormone Binding Globulin Access complete set of age- and/or gender-specific reference intervals for this test in the [employer] [facility] ([employer]). Testosterone, Free by Warehouse Supervisor 3Rd Shift 1.4 pg/mL 0.6-3.8 INTERPRETIVE INFORMATION: Testosterone, Free by Warehouse Supervisor 3Rd Shift Free testosterone concentration is calculated using total testosterone (measured by mass spectrometry) and the binding constant of testosterone and sex hormone-binding globulin (SHBG). For individuals on testosterone-suppressing hormone therapies (e.g., antiandrogens or estrogens), refer to cisgender female reference intervals. For a complete set of all established reference intervals, refer to ltd.EnergyDeck/Tests/Pub/[id number]. This test was developed and its performance characteristics determined by [facility]. It has not been cleared or approved by the US Food and Drug Administration. This test was performed in a CLIA certified laboratory and is intended for clinical purposes. Performed By: [facility] [address] [place] [id number] Cpht: Kwame Marion MD, PhD CLIA Number: [id number] Admission on 04/17/2025, Discharged on 04/17/2025 Component [...] - 1.00 mg/dL Final METHOD TRACEABLE TO [facility] STANDARD GLUCOSE 04/17/2025 112 (H) [...] - 2.0 mmol/L Final POC Urine Specific [place] 04/17/2025 1.015 1.010, 1.015, 1.020, 1.025 Final [...] J Cardiovasc Magn Reson 22, 87 (2020). [email or web address] Finalized by Ashok Kramer MD on 04/25/2025 1:30 PM MR [facility] Result Date: 04/25/2025 Narrative: MR [facility] CLINICAL INFORMATION: Health care maintenance TECHNIQUE: Multiplanar multisequence MR imaging of the brain and gambell of Garr[place] was performed on a 3 [...] thecal sac stenosis at C5-C6. IMPRESSION: * Twmr-od-vkmvlnzf burden white matter FLAIR hyperintensities, most often seen in the setting of chronic microvascular ischemia. * Unremarkable gambell of [place]arr[place] MRA. * Several brain parenchymal [...] detection for pulmonary nodules was performed utilizing [employer] software. FINDINGS: Comparison: CT dated 01/04/2019. Nodule [...] the resident's note. documented in this encounter [facility] 04-25-2025 History of Present illness Narrative Images from the original note were not included. [facility] Physical Medicine and Rehabilitation [place] [id number] [facility], [address] [place] [address] * Patient: Beena Diaz Date of : [...] physician Physical Therapy: daily hep and stretches Mini Shifter: No Pain Management: Injections & Medication Prior [...] chronic heart failure with preserved ejection fraction ([facility]) 02/20/2022 Anxiety Arthritis Asthma Cellulitis of left lower extremity 02/19/2022 COPD (chronic obstructive pulmonary disease) ([facility]) 03/14/2019 Dyslipidemia Esophageal dysphagia 2023 Heart murmur Hypertension Low back pain Open wound of left lower leg 01/20/2022 Parkinson's disease Sepsis due to Staphylococcus aureus ([facility]) 01/17/2022 Tear of right hamstring 07/03/2020 Visual impairment glasses Past Surgical History: Procedure Laterality Date AUGMENTATION MAMMAPLASTY 11/09/2018 silicone COLONOSCOPY 10/20/2015 Rept 10 yrs ESOPHAGOGASTRODUODENOSCOPY with biopsies and dilatioin N/A 05/24/2024 Performed by Colleen Russell MD at [facility] ENDOSCOPY OTHER SURGICAL HISTORY spinal [...] This note was completed using a voice chip mixer system. Every effort was made to ensure accuracy. However, inadvertent computerized chip mixer errors may be present. Please contact author for any clarification. CIARRA Hernandez 04/25/25 1300 documented in this encounter [facility] 04-11-2025 History of Present illness Narrative Beenadirk Diaz Date of visit: 04/11/2025 Date of : 1950 Age: 74 y.o. Patient Active Problem List Diagnosis Chronic bilateral low back pain without sciatica Swelling of right hand Menopause Decreased body height Parkinson's disease ([facility]) Hypertension Mixed hyperlipidemia Lumbar degenerative disc disease Osteoarthritis of facet joint of lumbar spine COPD (chronic obstructive pulmonary disease) ([facility]) Tear of right hamstring Right rotator cuff tear arthropathy Livedo reticularis Oral lesion Chronic heart failure with preserved ejection fraction ([facility]) Vasovagal episode Nonrheumatic mitral valve regurgitation Chronic [...] chronic heart failure with preserved ejection fraction ([facility]) 02/20/2022 Anxiety Arthritis Asthma Cellulitis of left lower extremity 02/19/2022 COPD (chronic obstructive pulmonary disease) ([facility]) 03/14/2019 Dyslipidemia Esophageal dysphagia 2023 Heart murmur Hypertension Low back pain Open wound of left lower leg 01/20/2022 Parkinson's disease Sepsis due to Staphylococcus aureus ([facility]) 01/17/2022 Tear of right hamstring 07/03/2020 Visual impairment glasses No data recorded No data recorded No data recorded Past Surgical History: Procedure Laterality Date AUGMENTATION MAMMAPLASTY 11/09/2018 silicone COLONOSCOPY 10/20/2015 Rept 10 yrs ESOPHAGOGASTRODUODENOSCOPY with biopsies and dilatioin N/A 05/24/2024 Performed by Colleen Russell MD at [facility] ENDOSCOPY OTHER SURGICAL HISTORY spinal [...] Resource Strain: Low Risk (06/17/2024) Received from [employer] Financial Resource Strain How hard is it [...] Transportation Needs: Low Risk (06/17/2024) Received from [employer] Transportation Needs In the past 12 months, has lack of reliable transportation kept you from medical appointments, meetings, work or from getting things needed for daily living?: No Physical Activity: Inactive (06/17/2024) Received from [employer] Exercise Vital Sign Days of Exercise per Week: 0 days Minutes of Exercise per Session: 0 min Stress: Low Risk (06/17/2024) Received from [employer] Stress Stress means a situation in which a person feels tense, restless, nervous, or anxious, or is unable to sleep at night because his or her mind is troubled all the time. Do you feel this kind of stre...: A little bit Social Connections: Low Risk (06/17/2024) Received from [facility] [employer] Social Connections If for any reason you need help with activities of daily living such as bathing, preparing meals, shopping, managing finances, etc., do you get the help that you need?: I don't need any help How often do you feel lonely or isolated from those around you?: Rarely Interpersonal Safety: Unknown (12/31/2023) Received from [facility] Fear of Current or Ex-Partner: Not on file Emotionally Abused: Not on file Physically Abused: Not on file Sexually Abused: Not on file Physically or Sexually Abused: Not on file Housing Instability: Low Risk (06/16/2024) Received from [facility] [employer] Housing Stability What is your living situation [...] PCP: CIARRA OSEI Referring Physician: CIARRA Osei [facility], [address] [place] [address] documented in this encounter [facility] 03-17-2025 Miscellaneous Notes Prior authorization for Azilect denied. Sheep Farm Worker to complete Appeal letter. Faxed appeal letter to [facility]. Confirmation fax received. documented in this encounter [facility] 03-17-2025 Telephone encounter Note Prior authorization for Azilect denied. Sheep Farm Worker to complete Appeal letter. Faxed appeal letter to [facility]. Confirmation fax received. [facility] 03-16-2025 Miscellaneous Notes Received letter that PA for ordered Echo was denied. Appeal is available. Letter made and faxed to appeal dept at: [facility] at [phone] documented in this encounter [facility] 03-16-2025 Telephone encounter Note Received letter that PA for ordered Echo was denied. Appeal is available. Letter made and faxed to appeal dept at: [facility] at [phone] [facility] 03-07-2025 Miscellaneous Notes Sheep Farm Worker contacted patient per Dr. Silva request regarding her worsening symptoms that patient had reported to her Wood Products Manufacturer. Patient stated that she is taking her [...] early from taking 3 caps per day Sheep Farm Worker contacted patient and reviewed physician's recommendations. Patient verbalized understanding and will contact clinic next week to update on status. [facility] Telephone encounter Note Sheep Farm Worker contacted patient per Dr. Silva request regarding her worsening symptoms that patient had reported to her Wood Products Manufacturer. Patient stated that she is taking her [...] would like to have dosing times adjusted. [facility] 03-07-2025 Telephone encounter Note Does she feel like she needs a dose before 1pm as well as needing something around 6pm? If so how much before 1pm? Is she having any hallucinations or otherwise feeling hse has side effects to crexont? [facility] 03-07-2025 Telephone encounter Note Patient stated that she is good from 6:30 am - 1 Pm dose. She said she would like something just at 6 pm sine she has wearing off at that time. Patient denies any side effects and no hallucinations. [facility] 03-07-2025 Telephone encounter Note Ask her to try taking another 1 capsule of crexont at 6pm. I sent a new script to her pharmacy so she will not run out too early from taking 3 caps per day [facility] 03-07-2025 Telephone encounter Note Sheep Farm Worker contacted patient and reviewed physician's recommendations. Patient verbalized understanding and will contact clinic next week to update on status. T [facility] 03-06-2025 History of Present illness Narrative Images from the original note were not included. ADULT RHEUMATOLOGY CLINIC NOTE [id number] [phone] Patient Name: Beena Diaz Subjective Reason for [...] dexterity with fine motor tasks and machine operator transplanter strength. She also notices discomfort in the bilateral feet as well as the ankles. 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 Family Hx: -noncontributory Interval History: The patient [...] hand Menopause Decreased body height Parkinson's disease ([facility]) Hypertension Mixed hyperlipidemia Lumbar degenerative disc disease Osteoarthritis of facet joint of lumbar spine COPD (chronic obstructive pulmonary disease) ([facility]) Tear of right hamstring Right rotator cuff tear arthropathy Livedo reticularis Oral lesion Chronic heart failure with preserved ejection fraction ([facility]) Vasovagal episode Nonrheumatic mitral valve regurgitation Chronic pain syndrome Neck pain, chronic Cervical radiculopathy reviewed. Past Surgical History: Procedure Laterality Date AUGMENTATION MAMMAPLASTY 11/09/2018 silicone COLONOSCOPY 10/20/2015 Rept 10 yrs ESOPHAGOGASTRODUODENOSCOPY with biopsies and dilatioin N/A 05/24/2024 Performed by Colleen Russell MD at [facility] OTHER SURGICAL HISTORY spinal pain shot reviewed. [...] chronic heart failure with preserved ejection fraction ([facility]) 02/20/2022 Anxiety Arthritis Asthma Cellulitis of left lower extremity 02/19/2022 COPD (chronic obstructive pulmonary disease) ([facility]) 03/14/2019 Dyslipidemia Esophageal dysphagia 2023 Heart murmur Hypertension Low back pain Open wound of left lower leg 01/20/2022 Parkinson's disease Sepsis due to Staphylococcus aureus ([facility]) 01/17/2022 Tear of right hamstring 07/03/2020 Visual [...] EMR. Assessment / Recommendations 1. Inflammatory polyarthritis ([facility]) 2. Seronegative rheumatoid arthritis ([facility]) 3. Medication monitoring encounter 4. Neck [...] Expiration Date: 03/06/2026 Release to patient via [employer]?: Immediate [1] Erythrocyte Sedimentation Rate (ESR) Standing Status: Future Expiration Date: 03/06/2026 Release to patient via [employer]?: Immediate [1] Liver panel Standing Status: Future Expiration Date: 03/06/2026 Release to patient via [employer]?: Immediate [1] CBC auto differential Standing Status: Future Expiration Date: 03/06/2026 Release to patient via [employer]?: Immediate [1] Creatinine includes GFR, serum Standing Status: Future Expiration Date: 03/06/2026 Release to patient via [employer]?: Immediate [1] -we will proceed with med monitoring labs every 3 months --- next set of labs around the last of April or week of May Treatment Plan: -increase MTX to 8 pills weekly -continue 1 mg daily folic acid -communicated with PM&R provider (Ofelia Pierce CNP) via [employer] secure chat to let her know that the patient found benefit from tramadol but would like to be given a more consistent supply of the medication so she can avoid going to the pharmacy frequently -communicated with her Neurology provider via [employer] secure chat given the patient and her daughters concerns about side effects/worsening symptoms after switching to Crexont Consults/Referrals: -No new referrals at this time Health Maintenance: -The patient should continue to follow with their PCP for age and risk factor appropriate cancer screening and immunizations. Follow-up: -3 months Mariajose Clemente MD, MPH [facility] Physicians Rheumatology [address] [place] [address] Total vffv-rk-dezb time was 45 minutes with more than [...] for your understanding. documented in this encounter [facility] 03-06-2025 Instructions Mariajose Clemente MD MPH - 03/06/2025 12:00 PM EDT Medication Instructions: -Please increase methotrexate to 8 pills once weekly -Continue to take 1 mg of daily folic acid -We will plan to have you update your blood work at the end of April or first week of May. Lab orders are already in your chart. documented in this encounter [facility] 02-28-2025 Miscellaneous Notes Prior authorization initiated for Azilect 1 mg tablet with [place]: [email or web address]. 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 Appeal letter faxed to [facility]. Confirmation fax received. documented in this encounter [facility] 02-28-2025 Telephone encounter Note Prior authorization initiated for Azilect 1 mg tablet with [place]: [email or web address]. 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 Appeal letter faxed to [facility]. Confirmation fax received. [facility] 02-21-2025 History of Present illness Narrative [...] extremity 02/19/2022 COPD (chronic obstructive pulmonary disease) ([facility]) 03/14/2019 Dyslipidemia Esophageal dysphagia 2023 Heart murmur Hypertension Low back pain Open wound of left lower leg 01/20/2022 Parkinson's disease Sepsis due to Staphylococcus aureus ([facility]) 01/17/2022 Tear of right hamstring 07/03/2020 Visual impairment glasses Past Surgical History: Procedure Laterality Date AUGMENTATION MAMMAPLASTY 11/09/2018 silicone COLONOSCOPY 10/20/2015 Rept 10 yrs ESOPHAGOGASTRODUODENOSCOPY with biopsies and dilatioin N/A 05/24/2024 Performed by Colleen Russell MD at [facility] ENDOSCOPY OTHER SURGICAL HISTORY spinal [...] nursing note reviewed. Exam conducted with a applications programmer analyst present. Constitutional: Appearance: She is well-developed. HENT: [...] - 1.00 mg/dL Final METHOD TRACEABLE TO [facility] STANDARD Glucose 02/02/2025 88 65 - 99 [...] using HEp-2 cellular substrate. Test Performed by: [place] [address] Pulley Man: Sam Dukes Ph.D.; CLIA# [id number] Ss-a/ro antibodies IgG 11/29/2024 <0.2 <1.0 AI Final Ss-b/la antibodies IgG 11/29/2024 <0.2 <1.0 AI Final Anti-zapata AB IgG 11/29/2024 <0.2 <1.0 AI Final Anti TESTING ENGINEER 11/29/2024 0.2 <1.0 AI Final Scleroderma scl-70 11/29/2024 <0.2 <1.0 AI Final Anti DENIS-1 11/29/2024 <0.2 <1.0 AI Final dsDNA Ab by [facility] IFA, IgG, S 11/29/2024 Negative Negative Final [facility] Interpretation 11/29/2024 See Note Final Comment: NOTE Testing for dsDNA antibody by [facility]FA was negative. Test Performed by: [place] [address] Pulley Man: Sam Dukes Ph.D.; CLIA# [id number] QuantiFERON-Tb Gold Plus Result 11/29/2024 Indeterminate (A) [...] IU/mL Final Comment: NOTE Test Performed by: [facility] [address] [place] [address] Pulley Man: Sam Dukes Ph.D.; CLIA# [id number] Hepatitis B Surface Ag 11/29/2024 Non-Reactive Non-Reactive^Non-Reactive Final NEW TEST METHOD Hep B Core IgM Ab 11/29/2024 Non-Reactive Non-Reactive^Non-Reactive Final NEW TEST METHOD Hep A IgM Ab 11/29/2024 Non-Reactive Non-Reactive^Non-Reactive Final NEW TEST METHOD Anti HCV w/ PCR reflex 11/29/2024 Non-Reactive Non-Reactive^Non-Reactive Final Comment: NEW TEST METHOD NOTE If recent infection suspected, recommend repeat testing (>2 months). Lyddmh-ar-drcotd ratio is <1.00. White Blood Cells 11/29/2024 [...] - 1.00 mg/dL Final METHOD TRACEABLE TO [facility] STANDARD eGFR (CKD-EPI)non-race dependent 11/29/2024 [...] Osei 02/23/25 1224 documented in this encounter [facility] [email or web address] 02-21-2025 Instructions CIARRA Osei - 02/21/2025 10:00 [...] services: Not applicable documented in this encounter [facility] [employer] [facility] 02-13-2025 History of Present illness Narrative [...] tolerated after 48hours documented in this encounter [facility] 02-13-2025 Instructions Rosy Freed RN - 02/13/2025 [...] Physical Medicine and Rehabilitation office immediately at [phone]. Diabetic Patients: In the case of steroid [...] or bladder control. documented in this encounter [facility] 01-30-2025 History of Present illness Narrative CERVICAL [...] tolerated after 48hours [facility]-30[facility]25 Instructions Rosy Freed RN - 01/30/2025 [...] Physical Medicine and Rehabilitation office immediately at [phone]. Diabetic Patients: In the case of steroid [...] or bladder control. documented in this encounter [facility] 01-27-2025 Miscellaneous Notes PA request for Crexont pending via CMM with [employer] # [id number] Request Reference Number: [id number]. CREXONT CAP 70-280MG is approved through 01/27/2026 Noted. documented in this encounter [facility] 01-27-2025 Telephone encounter Note PA request for Crexont pending via CMM with [place] # [id number] [facility] 01-27-2025 Telephone encounter Note Request Reference Number: [id number]. CREXONT CAP [id number] is approved through 01/27/2026 [facility] 01-27-2025 Telephone encounter Note Noted. [facility] 01-26-2025 History of Present illness Narrative Images from the original note were not included. [address] [place] [address] Patient: Beena Diaz Date of : 1950 Encounter Date: 01/26/2025 Patient Care Team: Brenden Caba APRN-JONEL as PCP - General Lilia Cortez MD as Consulting Physician (Dermatology) SOPHY Garner as Physician [employer] Lease Pumper (Gastroenterology) Ty Branham MD as Referring Physician [...] dose of Pramipexole. We discussed transitioning to [facility] for further management in order to [...] chronic heart failure with preserved ejection fraction ([facility]) 02/20/2022 Anxiety Arthritis Asthma Cellulitis of left lower extremity 02/19/2022 COPD (chronic obstructive pulmonary disease) ([facility]) 03/14/2019 Dyslipidemia Esophageal dysphagia 2023 Heart murmur Hypertension Low back pain Open wound of left lower leg 01/20/2022 Parkinson's disease Sepsis due to Staphylococcus aureus ([facility]) 01/17/2022 Tear of right hamstring 07/03/2020 Visual impairment glasses Family History Problem Relation Age of Onset Diabetes Father Heart disease Father CABG at age 65 Colon cancer Neg Hx Anesthesia problems Neg Hx Past Surgical History: Procedure Laterality Date AUGMENTATION MAMMAPLASTY 11/09/2018 silicone COLONOSCOPY 10/20/2015 Rept 10 yrs ESOPHAGOGASTRODUODENOSCOPY with biopsies and dilatioin N/A 05/24/2024 Performed by Colleen Russell MD at [facility] ENDOSCOPY OTHER SURGICAL HISTORY spinal [...] for your understanding. [facility] Instructions Trice Silva MD - 01/26/2025 [...] medications the same. [facility] Miscellaneous Notes Prior Authorization/Notification is not required for the requested service(s). This [facility] member's plan does not currently require a prior authorization for these services. If you have general questions about the prior authorization requirements, please call us at [phone] or visit [employer] > Clinician Resources > Advance and Admission Notification Requirements. The number above acknowledges your notification. Please write this number down for future reference. Notification is not a guarantee of coverage or payment. Decision ID #: [id number] The number above acknowledges your inquiry and our response. Please write this number down and refer to it for future inquiries. Coverage and payment for an item or service is governed by the member's benefit plan document, and, if applicable, the provider's participation agreement with the Health Plan. Patient details keyboard_arrow_up Patient name BEENA DIAZ Member number [id number] Group number [id number] Product POS Relationship Spouse Effective date 11/09/2024 Termination date 11/08/2025 Insurance type Commercial Verbal language preference - Written language preference - info A future timeline may be available for this member. For future coverage please call the telephone number located on the back of the member's Medical ID card. Submitting provider details keyboard_arrow_up Name Isidro Woodall Tax ID number [id number] Address [address], [place] [address] Status In network Service details keyboard_arrow_up Place [...] search. Name ISIDRO WOODALL Tax ID number [id number] Address [address], [place] [address] T. [phone] Status In network Diagnosis code details keyboard_arrow_up Code pointer Primary Diagnosis code M54.12 Description Radiculopathy, cervical region Procedure code details keyboard_arrow_up Code pointer Primary procedure code 32106 Description Injection(s), anesthetic agent(s) and/or steroid; transforaminal epidural, with imaging guidance (fluoroscopy or CT), cervical or thoracic, single level Selected servicing provider The provider who is providing the service being requested. Servicing provider name ISIDRO WOODALL Tax ID number [id number] Address [address], [place] [address] T. [phone] Status In network Service Details Pain Management Expected from date info 01/24/2025 Expected to date info 04/08/2025 Count info 2 Standard of Measure info Visits Frequency info Time(s) Total info 2 documented in this encounter [facility] [employer] [facility] 01-24-2025 Telephone encounter Note Prior Authorization/Notification is not required for the requested service(s). This [facility] Commercial member's plan does not currently require a prior authorization for these services. If you have general questions about the prior authorization requirements, please call us at [phone] or visit [employer] > Clinician Resources > Advance and Admission Notification Requirements. The number above acknowledges your notification. Please write this number down for future reference. Notification is not a guarantee of coverage or payment. Decision ID #: [id number] The number above acknowledges your inquiry and our response. Please write this number down and refer to it for future inquiries. Coverage and payment for an item or service is governed by the member's benefit plan document, and, if applicable, the provider's participation agreement with the Health Plan. Patient details keyboard_arrow_up Patient name BEENA DIAZ Member number [id number] Group number [id number] Product POS Relationship Spouse Effective date 11/09/2024 Termination date 11/08/2025 Insurance type Commercial Verbal language preference - Written language preference - info A future timeline may be available for this member. For future coverage please call the telephone number located on the back of the member's Medical ID card. Submitting provider details keyboard_arrow_up Name Isidro Woodall Tax ID number [id number] Address [address] [place] [address] [address], [place] [address] Status In network Service details keyboard_arrow_up Place [...] search. Name ISIDRO WOODALL Tax ID number [id number] Address [address] [place] [address] [address], [place] [address] T. [phone] Status In network Diagnosis code details keyboard_arrow_up Code pointer Primary Diagnosis code M54.12 Description Radiculopathy, cervical region Procedure code details keyboard_arrow_up Code pointer Primary procedure code 28244 Description Injection(s), anesthetic agent(s) and/or steroid; transforaminal epidural, with imaging guidance (fluoroscopy or CT), cervical or thoracic, single level Selected servicing provider The provider who is providing the service being requested. Servicing provider name ISIDRO WOODALL Tax ID number [id number] Address [address] [facility] [address], [place] [address] T. [phone] Status In network Service Details Pain Management Expected from date info 01/24/2025 Expected to date info 04/08/2025 Count info 2 Standard of Measure info Visits Frequency info Time(s) Total info 2 [facility] 01-23-2025 Miscellaneous Notes Images from the original note were not included. Patient [phone] stated that they would like a refill on eszopiclone 2 mg TAKE 1 TABLET BY MOUTH immediately before bedtime medication and patient would need more than 30 pills due to going to [facility] for the summer . Refill request : eszopiclone (LUNESTA) 2 mg tablet Last Filled : 12/09/2024 Last OV : 06/29/2024 Next OV : 01/26/2025 Reviewed by SHIP SCALER. Pend for signature. Can you call in refill as ordered above? I cannot sign electronically while out of the office Sheep Farm Worker phoned in prescription to pharmacy. documented in this encounter [facility] 01-23-2025 Telephone encounter Note Images from the original note were not included. Patient [phone] stated that they would like a refill on eszopiclone 2 mg TAKE 1 TABLET BY MOUTH immediately before bedtime medication and patient would need more than 30 pills due to going to [facility] for the summer . [facility] 01-23-2025 Telephone encounter Note Refill request : eszopiclone (LUNESTA) 2 mg tablet Last Filled : 12/09/2024 Last OV : 06/29/2024 Next OV : 01/26/2025 Reviewed by SHIP SCALER. Pend for signature. [facility] 01-23-2025 Telephone encounter Note Can you call in refill as ordered above? I cannot sign electronically while out of the office [facility] 01-23-2025 Telephone encounter Note Sheep Farm Worker phoned in prescription to pharmacy. [facility] 01-23-2025 Miscellaneous Notes Pt called after [...] course of action. documented in this encounter [facility] 01-23-2025 Telephone encounter Note Pt called after her appointment with Dr. Hamlin. Per his notes, Dr. Hamlin does not feels she is a surgical candidate at this time. Would like pt to be treated for occipital neuralgia . Please see his 01/23/25 office notes. Rt C3-4 TFESI on 01/30/25 Lt C3-4 TFESI 02/13/25 [facility] 01-23-2025 Telephone encounter Note I would recommend proceeding with epidural injections, although, we can absolutely have her scheduled for occipital nerve blocks as well if epidurals do not control her symptoms. [facility] 01-23-2025 Telephone encounter Note Duly noted, we will wait for her follow up to determine the next course of action. [facility] 01-23-2025 History of Present illness Narrative Images from the original note were not included. [facility] [address] [place] [address], [place] [address] * CHART NOTE ? 01/23/2025 Patient: eBena Diaz 1950 [id number] Physician: Yusra Hamlin MD, FACS CHIEF COMPLAINT [...] follow-up with the pain management doctors at [facility] for facet injections and possible ablation. 2. [...] information and is aware she has a [employer] My Chart option to review the medical file I have created. PLAN The patient contact my office with any new concerns problems or issues Sincerely, Electronically signed by: Yusra Hamlin MD, [facility] This note was created with the assistance of a speech recognition program with the goal of generating a timely record of the patient encounter. Inadvertent computerized chip mixer errors related to syntax, spelling, homophones, and/or inaudibility may be present. [facility] Instructions Zen Leahy - 01/23/2025 10:30 AM EDT recommends Right Occipital neuralgia pain management Cervical facet injections follow up epping Pt will call if she needs referral to pain mgmt RT documented [facility]-28-2024 Miscellaneous Notes Patient would like to know why we referred her to spine care Spoke with patient and explained to her and she states that she would like to be referred to Dr valerio at [facility]. Referral placed and faxed to [phone] per patient request documented in this encounter [facility] 12-28-2024 Telephone encounter Note Patient would like to know why we referred her to spine care [facility] 12-28-2024 Telephone encounter Note Spoke with patient and explained to her and she states that she would like to be referred to Dr valerio at [facility]. Referral placed and faxed to [phone] per patient request [facility] 12-23-2024 Miscellaneous Notes Patient states that she was recently started on Methotrexate and with the medication came a warning that this should not be taken with pantoprazole. She asks if a different medication needs to be sent instead? Thank you Would advice patient contact the prescribing provider of her methotrexate documented in this encounter [facility] 12-23-2024 Telephone encounter Note Patient states that she was recently started on Methotrexate and with the medication came a warning that this should not be taken with pantoprazole. She asks if a different medication needs to be sent instead? Thank you [facility] 12-23-2024 Telephone encounter Note Would advice patient contact the prescribing provider of her methotrexate [employer] Work Phone: 12-06-2024 History of Present illness Narrative Associated Order(s): tpi Post-Procedure Diagnose(s): Neck pain, chronic Images from the original note were not included. [facility] [address], [address] [place] [address] * Patient: Beena Diaz Date of : [...] chronic heart failure with preserved ejection fraction ([facility]) 02/20/2022 Anxiety Arthritis Asthma Cellulitis of left lower extremity 02/19/2022 COPD (chronic obstructive pulmonary disease) ([facility]) 03/14/2019 Dyslipidemia Esophageal dysphagia 2023 Hypertension Open wound of left lower leg 01/20/2022 Parkinson's disease Sepsis due to Staphylococcus aureus ([facility]) 01/17/2022 Tear of right hamstring 07/03/2020 Visual impairment glasses Past Surgical History: Procedure Laterality Date AUGMENTATION MAMMAPLASTY 11/09/2018 silicone COLONOSCOPY 10/20/2015 Rept 10 yrs ESOPHAGOGASTRODUODENOSCOPY with biopsies and dilatioin N/A 05/24/2024 Performed by Colleen Russell MD at [facility] ENDOSCOPY OTHER SURGICAL HISTORY spinal [...] This note was completed using a voice chip mixer system. Every effort was made to ensure accuracy. However, inadvertent computerized chip mixer errors may be present. Please contact author for any clarification. 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 She also notices discomfort in the bilateral feet as well as the ankles. 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 Family Hx: -noncontributory Interval History: The patient [...] hand Menopause Decreased body height Parkinson's disease ([facility]) Hypertension Mixed hyperlipidemia Lumbar degenerative disc disease Osteoarthritis of facet joint of lumbar spine COPD (chronic obstructive pulmonary disease) ([facility]) Tear of right hamstring Right rotator cuff tear arthropathy Livedo reticularis Oral lesion Abdominal bloating Chronic heart failure with preserved ejection fraction ([facility]) Vasovagal episode Nonrheumatic mitral valve regurgitation reviewed. Past Surgical History: Procedure Laterality Date AUGMENTATION MAMMAPLASTY 11/09/2018 silicone COLONOSCOPY 10/20/2015 Rept 10 yrs ESOPHAGOGASTRODUODENOSCOPY with biopsies and dilatioin N/A 05/24/2024 Performed by Colleen Russell MD at [facility] OTHER SURGICAL HISTORY spinal pain shot reviewed. [...] chronic heart failure with preserved ejection fraction ([facility]) 02/20/2022 Anxiety Arthritis Asthma Cellulitis of left lower extremity 02/19/2022 COPD (chronic obstructive pulmonary disease) ([facility]) 03/14/2019 Dyslipidemia Esophageal dysphagia 2023 Hypertension Open wound of left lower leg 01/20/2022 Parkinson's disease Sepsis due to Staphylococcus aureus ([facility]) 01/17/2022 Tear of right hamstring 07/03/2020 Visual [...] the homunculus joint exam. ROSARIO-28 (CRP): -- RSOARIO-28 (ESR): -- Tender (ROSARIO-28): -- Swollen (ROSARIO-28): [...] Follow-up: -3 months Mariajose Clemente MD, MPH [facility] [address] [place] [address] Total [id number] time was 45 minutes with more than [...] for your understanding. documented in this encounter [facility] 12-06-2024 Instructions Mariajose Clemente MD MPH - [...] and tear arthritis) documented in this encounter [facility] Evaluation note Diagnosis Parkinson's disease ([facility]) [facility] Diagnosis Bilateral hand pain Pain in limb [facility] Diagnosis Parkinson's disease ([facility]) Restless leg syndrome Restless legs syndrome (RLS) [facility] Diagnosis Cervical radiculopathy- Primary Brachial neuritis or radiculitis nos Chronic pain syndrome Neck pain, chronic [facility] Diagnosis Seronegative rheumatoid arthritis ([facility] Primary Rheumatoid arthritis Neck pain Cervicalgia Muscle tension pain Inflammatory polyarthritis ([facility]) Unspecified inflammatory polyarthropathy Anti-cardiolipin antibody positive Other and unspecified nonspecific immunological findings Raynaud disease without gangrene Primary osteoarthritis involving multiple joints Fibromyalgia Unspecified myalgia and myositis [facility] Diagnosis Chronic pain syndrome- Primary Neck pain, chronic Cervical radiculopathy Brachial neuritis or radiculitis nos [facility] Diagnosis Insomnia due to medical condition Organic insomnia, unspecified [facility] Diagnosis Restless leg syndrome Restless legs syndrome (RLS) [facility] Diagnosis Chronic pain syndrome- Primary Neck pain, chronic Cervical radiculopathy Brachial neuritis or radiculitis nos [facility] Diagnosis Cervical radiculopathy- Primary Brachial neuritis or radiculitis nos [facility] Diagnosis Restless leg syndrome Restless legs syndrome (RLS) [facility] Diagnosis Neck pain- Primary Cervicalgia [facility] Diagnosis Cervical spinal stenosis- Primary Spinal stenosis in cervical region Cervical spondylosis Cervical spondylosis without myelopathy Neck pain Cervicalgia documented [facility] Diagnosis Insomnia due to medical condition Organic insomnia, unspecified [facility] Diagnosis Parkinson's disease with dyskinesia and fluctuating manifestations ([facility])- Primary Parkinson's disease ([facility]) Insomnia due to medical condition Organic insomnia, unspecified [facility] Diagnosis Cervical radiculopathy- Primary Brachial neuritis or radiculitis nos [facility] Diagnosis Cervical radiculopathy- Primary Brachial neuritis or radiculitis nos [facility] Diagnosis Encounter for screening mammogram for malignant neoplasm of breast- Primary [facility] Diagnosis Health care maintenance- Primary Primary hypertension Unspecified essential hypertension Chronic heart failure with preserved ejection fraction ([facility]) Chronic obstructive pulmonary disease, unspecified COPD type ([facility]) Parkinson's disease ([facility]) Mixed hyperlipidemia Complication associated with silicone gel-filled breast implant [facility] Diagnosis Inflammatory polyarthritis ([facility])- Primary Unspecified inflammatory polyarthropathy Seronegative rheumatoid arthritis ([facility]) Rheumatoid arthritis Medication monitoring encounter Encounter for therapeutic drug monitoring Neck pain Cervicalgia [facility] Diagnosis Parkinson's disease with dyskinesia and fluctuating manifestations ([facility]) [facility] Diagnosis Mixed hyperlipidemia documented [facility] Diagnosis Health care maintenance- Primary [facility] Diagnosis Health care maintenance- Primary [facility] Diagnosis Chronic heart failure with preserved ejection fraction ([facility])- Primary Mixed hyperlipidemia Nonrheumatic mitral valve regurgitation documented [facility]* Diagnosis Chronic pain syndrome- Primary Cervical radiculopathy Brachial neuritis or radiculitis nos Neck pain, chronic Chronic bilateral low back pain without sciatica documented [facility] Diagnosis Health care maintenance Dysuria- Primary Frequency of urination Urinary frequency documented [facility] Diagnosis Dehydration- Primary Malnutrition, unspecified type Parkinson's disease ([facility]) [facility] Diagnosis Health care maintenance- Primary Iron deficiency anemia, unspecified iron deficiency anemia type Weight loss Loss of weight Decreased appetite Anorexia Parkinson's disease ([facility]) Inflammatory polyarthritis ([facility]) Unspecified inflammatory polyarthropathy Primary hypertension Unspecified essential hypertension Chronic heart failure with preserved ejection fraction ([facility]) Insomnia, unspecified type Hyperbilirubinemia Disorders of bilirubin excretion Elevated serum creatinine Other nonspecific findings on examination of blood [facility] Diagnosis Parkinson's disease with dyskinesia and fluctuating manifestations ([facility])- Primary Dysphagia, unspecified type [facility] Diagnosis Parkinson's disease ([facility]) [facility] Diagnosis Inflammatory polyarthritis ([facility] Primary Unspecified inflammatory polyarthropathy Seronegative rheumatoid arthritis ([facility]) Rheumatoid arthritis Primary osteoarthritis involving multiple joints Chronic bilateral low back pain without sciatica Medication monitoring encounter Encounter for therapeutic drug monitoring Neck pain Cervicalgia Muscle tension pain [facility] Diagnosis Wheezing documented in this encounter [facility]* Diagnosis Parkinson's disease ([facility]) [facility] this encounter [facility] Diagnosis Cervical radiculopathy- Primary Brachial neuritis or radiculitis nos documented in this encounter [facility]* Diagnosis Acute cough- Primary Wheezing Shortness of breath COPD exacerbation ([facility]) Obstructive chronic bronchitis with exacerbation documented in this encounter [facility]* Diagnosis Insomnia due to medical condition Organic insomnia, unspecified REM sleep behavior disorder documented in this encounter [facility]* Diagnosis Esophageal dysphagia- Primary Dysphagia, [...] section and content) DATE CREATED AUTHOR 07/02/2024 [facility] DATE CREATED AUTHOR AUTHOR'S ORGANIZ ATION 07/24/2024 [facility] DATE CREATED AUTHOR AUTHOR'S ORGANIZ ATION 02/12/2025 [facility] DATE CREATED AUTHOR AUTHOR'S ORGANIZ ATION 07/15/2025 [facility] DATE CREATED AUTHOR AUTHOR'S ORGANIZ ATION 07/22/2025 [facility] Reason for Visit (unrecogniz ed section [...] Care Teams (unrecognized sec tion and content) Dip Unit Operator Relationship Specialty Start Date End Date Brenden Caba APRN-WIRE DRAWER [address] [place] [address], [address] [place] [address] PCP - General 03/19/15 Dip Unit Operator Relationship Specialty Start Date End Date Mi Dominguez MD [address] [place] [address], [address] [place] [address] PCP - General 12/01/13 Dip Unit Operator Relationship Specialty Start Date End Date Brenden Caba APRN-CNP [address] [facility], [address] [place] [address] PCP - General 03/19/15 Dip Unit Operator Relationship Specialty Start Date End Date Brenden Caba MACHINE SWEEPER BRUSH MAKER-WIRE DRAWER [address] [facility], [address] [place] [address] PCP - General 03/19/15 Dip Unit Operator Relationship Specialty Start Date End Date Brenden Caba, MACHINE SWEEPER BRUSH MAKER-WIRE DRAWER [address] [facility], [address] [place] [address] PCP - General 03/19/15 Dip Unit Operator Relationship Specialty Start Date End Date Brenden Caba, MACHINE SWEEPER BRUSH MAKER-WIRE DRAWER [address] [facility], [address] [place] [address] PCP - General 03/19/15 Dip Unit Operator Relationship Specialty Start Date End Date Brenden Caba, MACHINE SWEEPER BRUSH MAKER-WIRE DRAWER [address] [facility], [address] [place] [address] PCP - General 03/19/15 Dip Unit Operator Relationship Specialty Start Date End Date Brenden Caba, MACHINE SWEEPER BRUSH MAKER-WIRE DRAWER [address] [facility], [address] [place] [address] PCP - General 03/19/15 Dip Unit Operator Relationship Specialty Start Date End Date Brenden Caba, MACHINE SWEEPER BRUSH MAKER-WIRE DRAWER [address] [facility], [address] [place] [address] PCP - General 03/19/15 Dip Unit Operator Relationship Specialty Start Date End Date Brenden Caba, MACHINE SWEEPER BRUSH MAKER-WIRE DRAWER [address] [facility], [address] [place] [address] PCP - General 03/19/15 Dip Unit Operator Relationship Specialty Start Date End Date Brenden Caba MACHINE SWEEPER BRUSH MAKER-WIRE DRAWER [address] [facility], [address] [place] [address] PCP - General 03/19/15 Dip Unit Operator Relationship Specialty Start Date End Date Brenden Caba, MACHINE SWEEPER BRUSH MAKER-WIRE DRAWER [address] [facility], [address] [place] [address] PCP - General 03/19/15 Dip Unit Operator Relationship Specialty Start Date End Date Brenden Caba, MACHINE SWEEPER BRUSH MAKER-WIRE DRAWER [address] [facility], [address] [place] [address] PCP - General 03/19/15 Dip Unit Operator Relationship Specialty Start Date End Date Brenden Caba, MACHINE SWEEPER BRUSH MAKER-WIRE DRAWER [address] [facility], [address] [place] [address] PCP - General 03/19/15 Dip Unit Operator Relationship Specialty Start Date End Date Brenden Caba, MACHINE SWEEPER BRUSH MAKER-WIRE DRAWER [address] [facility], [address] [place] [address] PCP - General 03/19/15 Dip Unit Operator Relationship Specialty Start Date End Date Brenden Caba, MACHINE SWEEPER BRUSH MAKER-WIRE DRAWER [address] [facility], [address] [place] [address] PCP - General 03/19/15 Dip Unit Operator Relationship Specialty Start Date End Date Brenden Caba, MACHINE SWEEPER BRUSH MAKER-WIRE DRAWER [address] [facility], [address] [place] [address] PCP - General 03/19/15 Dip Unit Operator Relationship Specialty Start Date End Date Brenden Caba, MACHINE SWEEPER BRUSH MAKER-WIRE DRAWER [address] [facility], [address] [place] [address] PCP - General 03/19/15 Dip Unit Operator Relationship Specialty Start Date End Date Brenden Caba, MACHINE SWEEPER BRUSH MAKER-WIRE DRAWER [address] [facility], [address] [place] [address] PCP - General 03/19/15 Dip Unit Operator Relationship Specialty Start Date End Date Brenden Caba, MACHINE SWEEPER BRUSH MAKER-WIRE DRAWER [address] [facility], [address] [place] [address] PCP - General 03/19/15 Dip Unit Operator Relationship Specialty Start Date End Date Brenden Caba, MACHINE SWEEPER BRUSH MAKER-WIRE DRAWER [address] [facility], [address] [place] [address] PCP - General 03/19/15 Dip Unit Operator Relationship Specialty Start Date End Date Brenden Caba, MACHINE SWEEPER BRUSH MAKER-WIRE DRAWER [address] [facility], [address] [place] [address] PCP - General 03/19/15 Dip Unit Operator Relationship Specialty Start Date End Date Brenden Caba, MACHINE SWEEPER BRUSH MAKER-WIRE DRAWER [address] [facility], [address] [place] [address] PCP - General 03/19/15 Dip Unit Operator Relationship Specialty Start Date End Date Brenden Caba, MACHINE SWEEPER BRUSH MAKER-WIRE DRAWER [address], [address] [place] [address] PCP - General 03/19/15 Dip Unit Operator Relationship Specialty Start Date End Date Brenden Caba, MACHINE SWEEPER BRUSH MAKER-WIRE DRAWER [address], [address] [place] [address] PCP - General 03/19/15 Dip Unit Operator Relationship Specialty Start Date End Date Brenden Caba, MACHINE SWEEPER BRUSH MAKER-WIRE DRAWER [address], [address] [place] [address] PCP - General 03/19/15 Dip Unit Operator Relationship Specialty Start Date End Date Brenden Caba, MACHINE SWEEPER BRUSH MAKER-WIRE DRAWER [address], [address] [place] [address] PCP - General 03/19/15 Dip Unit Operator Relationship Specialty Start Date End Date Brenden Caba, MACHINE SWEEPER BRUSH MAKER-WIRE DRAWER [address], [address] [place] [address] PCP - General 03/19/15 Dip Unit Operator Relationship Specialty Start Date End Date Brenden Caba, MACHINE SWEEPER BRUSH MAKER-WIRE DRAWER [address], [address] [place] [address] PCP - General 03/19/15 Dip Unit Operator Relationship Specialty Start Date End Date Brenden Caba, MACHINE SWEEPER BRUSH MAKER-WIRE DRAWER [address], [address] [place] [address] PCP - General 03/19/15 Dip Unit Operator Relationship Specialty Start Date End Date Brenden Caba, MACHINE SWEEPER BRUSH MAKER-WIRE DRAWER [address] [facility], [address] [place] [address] PCP - General 03/19/15 Dip Unit Operator Relationship Specialty Start Date End Date Brenden Caba, MACHINE SWEEPER BRUSH MAKER-WIRE DRAWER [address] [facility], [address] [place] [address] PCP General 03/19/15 Dip Unit Operator Relationship Specialty Start Date End Date Brenden Caba, MACHINE SWEEPER BRUSH MAKER-WIRE DRAWER [facility]5 [facility], [address] [place] [address] PCP General 03/19/15 Dip Unit Operator Relationship Specialty Start Date End Date Brenden Caba, MACHINE SWEEPER BRUSH MAKER-WIRE DRAWER [address] [place] [address], [address] [place] [address] [facility] 03/19/15 FOR RECORDS PERTAINING TO PATIENTS WHO [...] BE BASED ON THE PRIMARY CLINICAL RECORDS. [facility] [employer] [facility]. provides no warranty or guarantee of the accuracy or completeness of information in this document.
--- OUTSIDE RECORDS SUMMARY | 2025-07-26 11:27 | XMS_ITS | Encounter Summary ---
Author Organization [facility] Sys tem Address [id number] [address] [place] [address] Care Team Providers Care Freight Car Repairer Name Role Phone Jesenia Peng PICKER TENDER-VOCAL PERFORMER Primary Care Provider Encounter Details Date Type Department Care Team (Late st Contact Info) Description 01/27/2022 Orders Only [facility] [address] [place] [phone] Nadiya Higgins, IRENE Open wound of left [...] Office Visit [facility], A Department of [address] [place] [phone] Trice Stinson MD [address] [place] [address], [facility] 101, 102, [address] [place] [address] 08/03/2025 9:30 AM EDT Procedure visit [facility] On [address] [address] 08/07/2025 11:00 AM EDT Office Visit [facility] [address] [facility] [address] [place] [address] Isidro Woodall DO [address] [facility] 170 [place] [address] 08/07/2025 11:00 AM EDT Appointment [facility] Radiology [address] [place] [address] 08/09/2025 12:00 PM EDT Hospital Encounter [facility] - Endoscopy [address] [place] [phone] [place] [address] [place] [address], [address] [place] [address] 08/09/2025 12:00 PM EDT - 08/09/2025 12:30 PM EDT Surgery [facility] - Endoscopy [address] [place] [phone] [place] [address] [place] [address], [address] [place] [address] ESOPHAGOGASTRODUODENOSCOPY DIAGNOSTIC [[id number] (CPT )] 08/21/2025 2:30 PM EDT Appointment [facility] [address] [place] [address] 08/22/2025 2:30 PM EDT Office Visit [facility] [address] [facility] [address] [place] [address] Isidro Woodall, DO [address] [facility] [address] [place] [address] 08/23/2025 1:30 PM EDT Office Visit [facility] [address] [facility] [address] [place] [phone] Jesenia Peng, PICKER TENDER-VOCAL PERFORMER [address] [facility], [address] [place] [address] 09/26/2025 1:30 PM EST Office Visit [facility], A Department of [address] [phone] Neli Clemente MD MPH [address] [place] [phone] 10/13/2025 11:45 AM EST Office Visit [facility] Cardiology [address] [place] [phone] Duong Johnson, [address] [place] [address], [address] [place] [address] 10/13/2025 3:15 PM EST Office Visit [facility], A Department of [address] [phone] Ines Uribe PA-C [address] [place] [address], [address] [place] [address] 11/14/2025 12:20 PM EST Office Visit [facility] [address] [place] [address] Ofelia Pierce V, PICKER TENDER-VOCAL PERFORMER [address] [place] [address] 11/21/2025 12:30 PM EST Appointment [facility] - Mammography [address] [place] [address] Scheduled Procedures Name Priority Associated [...] 0 - 30 SUNQUEST 01/14/2022 Jesenia Peng PICKER TENDER-VOCAL PERFORMER LAB BLOOD ORDERABLES Fi nal Result SUNQUEST * Urinalysis (01/14/2022) 01/14/2022 us Jesenia Peng PICKER TENDER-VOCAL PERFORMER URINE ORDERABLES Final Result Performing Organization Address [facility] de Phone Number SUNQUEST * (ABNORMAL) Comprehensive metabolic panel (01/14/2022) External Blood Urea Nitrogen Bun 28(A) 5 - 27 SUNQUEST 01/14/2022 Jesenia Peng PICKER TENDER-VOCAL PERFORMER LAB BLOOD ORDERABLES Fi nal Result Performing Organization Address [facility] de Phone Number SUNQUEST * CBC auto differential (01/14/2022) 01/14/2022 Jesenia Peng PICKER TENDER-VOCAL PERFORMER LAB BLOOD ORDERABLES Fi nal Result Performing Organization Address [facility] de Phone Number SUNQUEST * Lipid profile (01/14/2022) External Cholesterol 182 150 - 200 SUNQUEST External Cholesterol:Hdl 2.2 1.0 - 5.0 SUNQUEST External Hdl Cholesterol 82 >39 SUNQUEST External Ldl (Calc) 92 <130 SUNQUEST External Triglycerides 40 27 - 150 SUNQUEST External Very Low Lipoprotein 8 0 - 30 SUNQUEST 01/14/2022 Jesenia Peng PICKER TENDER-VOCAL PERFORMER LAB BLOOD ORDERABLES Fi nal Result Performing Organization Address [facility] de Phone Number SUNQUEST documented in [...] documented as of this encounter Care Teams Freight Car Repairer Relationship Specialty Start Date End Date Jesenia Peng APRN-JONEL [address] [place] [address], [address] [place] [address] PCP - General 03/19/15 documented as of this encounter
--- OUTSIDE RECORDS SUMMARY | 2025-07-26 11:27 | XMS_ITS | Encounter Summary ---
Author Organization [facility] Sys tem Address [id number] [address] [place] [address] Care Team Providers Care Insole Lip Turner Name Role Phone Jesenia Peng INTERNIST-INSEAMER Primary Care Provider Encounter Details Date Type Department Care Team (Late st Contact Info) Description 12/10/2023 Orders Only [facility] [address] [place] [phone] Cee Tolentino CMA Social History Tobacco Use [...] Visit [facility], A Department of [address] [place] [address] Trice Stinson MD [address] [place] [address], [address], [address] [place] [address] 08/03/2025 9:30 AM EDT Procedure visit [facility] On [address] [address] 08/07/2025 11:00 AM EDT Office Visit [facility] [address] [facility] [address] [place] [address] Isidro Woodall DO [address] [facility] [address] [place] [address] 08/07/2025 11:00 AM EDT Appointment [facility] [address] [place] [address] 08/09/2025 12:00 PM EDT Hospital Encounter [facility] - Endoscopy [address] [place] [address] [place] [address] [place] [address], [address] [place] [address] 08/09/2025 12:00 PM EDT - 08/09/2025 12:30 PM EDT Surgery [facility] - Endoscopy [address] [place] [address] Cliff Greenfield MD [address] [facility], [address] [place] [address] ESOPHAGOGASTRODUODENOSCOPY DIAGNOSTIC [[id number] (CPT )] 08/21/2025 2:30 PM EDT Appointment [facility] [address] [place] [address] 08/22/2025 2:30 PM EDT Office Visit [facility] [address] [facility] [address] [place] [address] Isidro Woodall, DO [address] [facility] [address] [place] [address] 08/23/2025 1:30 PM EDT Office Visit [facility] [address] [facility] [address] [place] [phone] Jesenia Peng, INTERNIST-INSEAMER [address] [facility], [address] [place] [address] 09/26/2025 1:30 PM EST Office Visit [facility], A Department of [address] [phone] Neli Clemente MD MPH [address] [place] [phone] 10/13/2025 11:45 AM EST Office Visit [facility] Cardiology [address] [place] [phone] Duong Johnson, [address] [place] [address], [address] [place] [address] 10/13/2025 3:15 PM EST Office Visit [facility], A Department of [address] [phone] Ines Uribe PA-C [address] [place] [address], [address] [place] [address] 11/14/2025 12:20 PM EST Office Visit [facility] [address] [place] [phone] Ofelia Pierce V, INTERNIST-INSEAMER [address] [place] [address] 11/21/2025 12:30 PM EST Appointment [facility] Mammography [address] [place] [address] Scheduled Procedures Name Priority Associated [...] documented as of this encounter Care Teams Insole Lip Turner Relationship Specialty Start Date End Date Jesenia Peng, INTERNIST-INSEAMER [address] [facility], [address] [place] [address] PCP - General 03/19/15 documented as of this encounter
--- OUTSIDE RECORDS SUMMARY | 2025-07-26 11:27 | XMS_ITS | Encounter Summary ---
Author Organization [facility] [facility] tem Address [id number]-[id number] [address] [place] [address] Care Team Providers Care Durable Medical Equipment Repairer Name Role Phone Jesenia Peng EYELET CUTTER-MACHINE WELDER Primary Care Provider Encounter Details Date Type Department Care Team (Late st Contact Info) Description 09/19/2021 Orders Only [facility] [address] [facility] [address] [place] [address] Anamaria Perkins CMA Osteopenia, unspecified [...] Office Visit [facility], A Department of [facility] [address] [facility] [address], [address], [address] [place] [address] Trice Stinson MD [address] [facility] [address], [address] [place] [address] 08/03/2025 9:30 AM EDT Procedure visit [facility] On [address] [address] 08/07/2025 11:00 AM EDT Office Visit [facility] [address] [place] [address] [place] [address] Isidro Woodall DO [address] [facility] [address] [place] [address] 08/07/2025 11:00 AM EDT Appointment [facility] [address] [place] [address] 08/09/2025 12:00 PM EDT Hospital Encounter [facility] - Endoscopy [address] [place] [address] [place] [address] [place] [address], [address] [place] [address] 08/09/2025 12:00 PM EDT - 08/09/2025 12:30 PM EDT Surgery [facility] - Endoscopy [address] [place] [address] Cliff Greenfield MD [address] [place] [address], [address] [place] [address] ESOPHAGOGASTRODUODENOSCOPY DIAGNOSTIC [[id number] (CPT )] 08/21/2025 2:30 PM EDT Appointment [facility] [address] [place] [address] 08/22/2025 2:30 PM EDT Office Visit [facility] [address] [facility] [address] [place] [address] Isidro Woodall, DO [address] [facility] 170 [place] [address] 08/23/2025 1:30 PM EDT Office Visit [facility] [address] [facility] 170 [place] [address] Jesenia Peng, EYELET CUTTER-MACHINE WELDER [address] [facility], [address] [place] [address] 09/26/2025 1:30 PM EST Office Visit [facility], A Department of [address] [phone] Neli Clemente MD MPH [address] [place] [phone] 10/13/2025 11:45 AM EST Office Visit [facility] Cardiology [address] [place] [phone] Duong Johnson, DO [address] [place] [address], [address] [place] [address] 10/13/2025 3:15 PM EST Office Visit [facility], A Department of [address] [phone] Ines Uribe PA-C [address] [place] [address], [address] [address] 11/14/2025 12:20 PM EST Office Visit [facility] [phone] Ofelia Pierce V, EYELET CUTTER-MACHINE WELDER [address] [facility] [address] [place] [address] 11/21/2025 12:30 PM EST Appointment [facility] [place] - Mammography [address] [place] [phone] Scheduled Procedures Name Priority Associated Diagnoses Date/Ti me ESOPHAGOGASTRODUODENOSCOPY DIAGNOSTIC Esophageal dysphagia (R13.19) 08/09/2025 12:00 PM EDT documented as of this encounter Procedures Procedure Name Priority Date/Time Associated Diagnosis Comments DEXA SCAN CENTRAL SKELETAL Routine 09/12/2021 Osteopenia, unspecified location Menopause documented in this encounter Results * Dexa scan central skeletal (09/12/2021) Anatomical Region Laterality Modality N/A Radiographic Priya ging 09/12/2021 Jesenia LAFLEUR IMG DXA ORDERABLES Katherine riley Result documented in this encounter Visit Diagnoses [...] documented as of this encounter Care Teams Durable Medical Equipment Repairer Relationship Specialty Start Date End Date Jesenia Peng APRN-CNP [address] [facility], [address] [place] [address] PCP - General 03/19/15 documented as of this encounter
--- OUTSIDE RECORDS SUMMARY | 2025-07-26 11:27 | XMS_ITS | Encounter Summary ---
Author Organization [facility] tem Address [place]-[id number] [address] [place] [address] Care Team Providers Care Billet Heater Name Role Phone Jesenia Peng CITY PLANNER-SERVICE PROVIDER Primary Care Provider Encounter Details Date Type Department Care Team (Late st Contact Info) Description 01/07/2022 Orders Only [facility] - ENT [address] [place] [address], [address] [place] [phone] Maryjane Faust, [address] [place] [address], [address] [place] [address] Social History Tobacco Use Types [...] Office Visit [facility], A Department of [address] 101, 102, 103 [place] [phone] Trice Stinson MD [address] [place] [address] 101, 102, 103 [place] [address] 08/03/2025 9:30 AM EDT [facility] On [address] [address] 08/07/2025 11:00 AM EDT Office Visit [facility] [address] [address] Isidro Woodall DO [address] [address] 08/07/2025 11:00 AM EDT Appointment [facility] Radiology [address] [place] [address] 08/09/2025 12:00 PM EDT Hospital Encounter [facility] - Endoscopy [address] [place] [phone] Cliff Greenfield MD [address] [place] [place] [address], [address] [place] [address] 08/09/2025 12:00 PM EDT - 08/09/2025 12:30 PM EDT Surgery [facility] - Endoscopy [address] [place] [address] Cliff Greenfield MD [address] [place] [place] [address], [address] [place] [address] ESOPHAGOGASTRODUODENOSCOPY DIAGNOSTIC [78036 (CPT )] 08/21/2025 2:30 PM EDT Appointment [facility] [address] [place] [address] 08/22/2025 2:30 PM EDT Office Visit [facility] [address] [facility] 170 [place] [address] Isidro Woodall, DO [address] [facility] 170 [place] [address] 08/23/2025 1:30 PM EDT Office Visit [facility] [address] [facility] 170 [place] [phone] Jesenia Peng, CITY PLANNER-SERVICE PROVIDER [address] [facility], [address] [place] [address] 09/26/2025 1:30 PM EST Office Visit [facility], A Department of [address] [phone] Neli Clemente MD MPH [address] [place] [phone] 10/13/2025 11:45 AM EST Office Visit [facility] Cardiology [address] [place] [phone] Duong Johnson, DO [address] [place] [address], [address] [place] [address] 10/13/2025 3:15 PM EST [facility], A Department of [address] [phone] Ines Uribe, PA-C [address] [place], [place] [phone] [place] [address] 11/14/2025 12:20 PM EST Office Visit [facility] [address] [place] [phone] Ofelia Pierce V CITY PLANNER-SERVICE PROVIDER [address] [facility] [address] [place] [address] 11/21/2025 12:30 PM EST Appointment [facility] [place] - Mammography [address] [place] [address] Scheduled Procedures Name Priority Associated Diagnoses Date/Ti me ESOPHAGOGASTRODUODENOSCOPY DIAGNOSTIC Esophageal dysphagia (R13.19) 08/09/2025 12:00 PM EDT documented as of this encounter Procedures Procedure Name Priority Date/Time Associated Diagnosis Comments SURGICAL PATHOLOGY Routine 01/06/2022 documented in this encounter Results * Surgical Pathology (01/06/2022) us Maryjane Faust DO PATHOLOGY/CYTOLOGY ORDERABLES Final Result [...] documented as of this encounter Care Teams Billet Heater Relationship Specialty Start Date End Date Jesenia Peng, CITY PLANNER-SERVICE PROVIDER [address] [facility], [address] [place] [address] PCP - General 03/19/15 documented as of this encounter
--- OUTSIDE RECORDS SUMMARY | 2025-07-26 11:27 | XMS_ITS | Encounter Summary ---
Author Organization [facility] [facility] tem Address [facility]-[id number] [address] [place] [place] [address] Care Team Providers Care Personal Care Worker Name Role Phone Jesenia Peng SPLUNK DEVELOPER-RECORD CHANGER TESTER Primary Care Provider Encounter Details Date Type Department Care Team (Late st Contact Info) Description 01/14/2022 Orders Only [facility] [address] [place] [phone] Anamaria Perkins CMA Healthcare maintenance (Primary Dx) [...] Office Visit [facility], A Department of [address] 101, 102, 103 [place] [address] Trice Stinson MD [address] [place] [address], [address], 102, 103 [place] [address] 08/03/2025 9:30 AM EDT Procedure visit [facility] On [address] [address] 08/07/2025 11:00 AM EDT Office Visit [facility] [address] [facility] 170 [place] [address] Isidro Woodall DO [address] [facility] 170 [place] [address] 08/07/2025 11:00 AM EDT Appointment [facility] Rad[facility] [address] [place] [address] 08/09/2025 12:00 PM EDT Hospital Encounter [facility] - Endoscopy [address] [facility] [place] [address] [place] [address] [place] [address], [address] [place] [address] 08/09/2025 12:00 PM EDT - 08/09/2025 12:30 PM EDT Surgery [facility] - Endoscopy [address] [place] [address] [place] [address] [place] [address], [address] [facility] [place] [place] [address] ESOPHAGOGASTRODUODENOSCOPY DIAGNOSTIC [48616 (CPT )] 08/21/2025 2:30 PM EDT Appointment [facility] [address] [place] [address] 08/22/2025 2:30 PM EDT Office Visit [facility] [address] [facility] 170 [place] [address] Isidro Woodall, DO 28[address] [facility] 170 [place] [address] 08/23/2025 1:30 PM EDT Office Visit [facility] [address] [facility] 170 [place] [address] Jesenia Peng, SPLUNK DEVELOPER-RECORD CHANGER TESTER [address] [facility], [address] [place] [address] 09/26/2025 1:30 PM EST Office Visit [facility], A Department of [address] [phone] Neli Clemente MD MPH [address] [place] [phone] 10/13/2025 11:45 AM EST Office Visit [facility] Cardiology [address] [place] [address] [address] [place] [address] Duong Johnson, DO [address] [place] [address], [address] [place] [address] 10/13/2025 3:15 PM EST Office Visit [facility], A Department of [address] [phone] Ines Uribe PARaphaelC [address] [place] [address], [address] [place] [address] 11/14/2025 12:20 PM EST Office Visit [facility] [address] [place] [address] Ofelia Pierce APRN-RECORD CHANGER TESTER [address] [place] [address] 11/21/2025 12:30 PM EST Appointment [facility] [place] - Mammography [address] [place] [address] Scheduled Procedures Name Priority Associated [...] documented as of this encounter Care Teams Personal Care Worker Relationship Specialty Start Date End Date Jesenia Peng APRN-CNP [address] [facility], [address] [place] [address] PCP - General 03/19/15 documented as of this encounter
--- OUTSIDE RECORDS SUMMARY | 2025-07-26 11:27 | XMS_ITS | Encounter Summary ---
Author Organization [facility] [employer] tem Address [facility] [place]-[id number] [address] [place] [address] Care Team Providers Care Telehealth Nurse Educator Name Role Phone Jesenia Peng SWITCHBOARD OPERATOR ASSISTANT-NATIONAL FACILITIES MANAGER Primary Care Provider Encounter Details Date Type Department Care Team (Late st Contact Info) Description 03/16/2024 Orders Only [facility] Cardiology [address] [place] [address] 202 [place] [address] Rosi Montgomery MA Chronic heart failure with [...] Office Visit [facility], A Department of [address] 101, 102, 103 [place] [address] Trice Stinson MD [address] [place] [address] 101, 102, 103 [place] [address] 08/03/2025 9:30 AM EDT [facility] On [address] [address] 08/07/2025 11:00 AM EDT Office Visit [facility] [address] [facility] 170 [place] [address] Isidro Woodall DO [address] [facility] 170 [place] [address] 08/07/2025 11:00 AM EDT Appointment [facility] [address] [place] [address] 08/09/2025 12:00 PM EDT Hospital Encounter [facility] - Endoscopy [address] [place] [address] Cliff Greenfield MD [address] [place] [address], [address] [place] [address] 08/09/2025 12:00 PM EDT - 08/09/2025 12:30 PM EDT Surgery [facility] - Endoscopy [address] [place] [address] Cliff Greenfield MD [address] [place] [address], [address] [facility] [place] [address] ESOPHAGOGASTRODUODENOSCOPY DIAGNOSTIC [[id number] (CPT )] 08/21/2025 2:30 PM EDT Appointment [facility] [address] [place] [address] 08/22/2025 2:30 PM EDT Office Visit [facility] [address] [facility] 170 [place] [address] Isidro Woodall, DO [address] [facility] 170 [place] [address] 08/23/2025 1:30 PM EDT Office Visit [facility] [address] [facility] 170 [place] [phone] Jesenia Peng, SWITCHBOARD OPERATOR ASSISTANT-NATIONAL FACILITIES MANAGER [address] [facility], [address] [place] [address] 09/26/2025 1:30 PM EST Office Visit [facility], A Department of [address] [phone] Neli Clemente MD MPH [address] [place] [phone] 10/13/2025 11:45 AM EST Office Visit [facility] Cardiology [address] [place] [address] 202 [place] [phone] Duong Johnson, DO [address] [place] [address], [address] [place] [address] 10/13/2025 3:15 PM EST Office Visit [facility], A Department of [address] [phone] Ines Uribe PA-C [address] [place] [address], [address] [place] [address] 11/14/2025 12:20 PM EST Office Visit [facility] [address] [place] [address] Ofelia Pierce APRN-NATIONAL FACILITIES MANAGER [address] [place] [address] 11/21/2025 12:30 PM EST Appointment [facility] [employer] - Mammography [address] [place] [phone] Scheduled Procedures Name Priority Associated Diagnoses Date/Ti [...] Chronic heart failure with preserved ejection fraction ([facility]) Medication monitoring encounter documented in this encounter Results * Magnesium (03/02/2024) 03/02/2024 Jacky Martinez SWITCHBOARD OPERATOR ASSISTANT-NATIONAL FACILITIES MANAGER LAB BLOOD ORDERABLES F inal Result SUNQUEST documented in this encounter Visit Diagnoses Diagnosis Chronic heart failure with preserved ejection fraction ([facility]) Medication monitoring encounter Encounter for therapeutic drug [...] documented as of this encounter Care Teams Telehealth Nurse Educator Relationship Specialty Start Date End Date Jesenia Peng APRN-JONEL [address] [place] [address], [address] [place] [address] PCP - General 03/19/15 documented as of this encounter
--- OUTSIDE RECORDS SUMMARY | 2025-07-26 11:27 | XMS_ITS | Encounter Summary ---
Author Organization [facility] tem Address [facility] [place]-[id number] [address] [place] [address] Care Team Providers Care Electronic Warfare Linguist Name Role Phone Jesenia Peng IRONING WORKER-FILTER TANK TENDER Primary Care Provider Encounter Details Date Type Department Care Team (Late st Contact Info) Description 09/18/2021 Orders Only [facility] [address] [facility] [address] [place] [address] Anamaria Perkins CMA Health maintenance examination (Primary [...] Office Visit [facility], A Department of [facility] [address] [facility] 101, 102, 103 [place] [address] Trice Stinson MD [address], [address] 101, 102, 103 [place] [address] 08/03/2025 9:30 AM EDT Procedure visit [facility] On [address] [address] 08/07/2025 11:00 AM EDT Office Visit [facility] [address] [facility] 170 [place] [address] Isidro Woodall DO [address] [facility] 170 [place] [address] 08/07/2025 11:00 AM EDT Appointment [facility] [address] [place] [address] 08/09/2025 12:00 PM EDT Hospital Encounter [facility] - Endoscopy [address] [facility] [address] [place] [address] [place] [address], [address] [place] [address] 08/09/2025 12:00 PM EDT - 08/09/2025 12:30 PM EDT Surgery [facility] - Endoscopy [address] [place] [address] Cliff Greenfield MD [address] [place] [address], [address] [place] [address] ESOPHAGOGASTRODUODENOSCOPY DIAGNOSTIC [[id number] (CPT )] 08/21/2025 2:30 PM EDT Appointment [facility] [address] [place] [address] 08/22/2025 2:30 PM EDT Office Visit [facility] [address] [place] [facility] 170 [place] [address] Isidro Woodall, DO [address] [facility] 170 [place] [address] 08/23/2025 1:30 PM EDT Office Visit [facility] [address] [facility] 170 [place] [address] Jesenia Peng, IRONING WORKER-FILTER TANK TENDER [address] [facility], [address] [place] [address] 09/26/2025 1:30 PM EST Office Visit [facility], A Department of [address] [phone] Neli Clemente MD MPH [address] [place] [phone] 10/13/2025 11:45 AM EST Office Visit [facility] Cardiology [address] [place] [phone] Duong Johnson, DO [address] [place] [address], [address] [place] [address] 10/13/2025 3:15 PM EST Office Visit [facility], A Department of [address] [phone] Ines Uribe PA-C [address] [place] [address], [address] [phone] 11/14/2025 12:20 PM EST Office Visit [facility] [address] [phone] Ofelia Pierce V, IRONING WORKER-FILTER TANK TENDER [address] [place] [address] 11/21/2025 12:30 PM EST Appointment [facility] [place] - Mammography [address] [place] [address] Scheduled Procedures Name Priority Associated Diagnoses Date/Ti me ESOPHAGOGASTRODUODENOSCOPY DIAGNOSTIC Esophageal dysphagia (R13.19) 08/09/2025 12:00 PM EDT documented as of this encounter Results * (ABNORMAL) ESR (01/14/2022) SED RATE {PL} 54(A) 0 - 30 SUNQUEST 01/14/2022 Jesenia Peng [facility] LAB BLOOD ORDERABLES Fi nal Result Performing Organization Address [facility] Co de Phone Number SUNQUEST * Lipid profile (01/14/2022) External Cholesterol 182 150 - 200 SUNQUEST External Cholesterol:Hdl 2.2 1.0 - 5.0 SUNQUEST External Hdl Cholesterol 82 >39 SUNQUEST External Ldl (Calc) 92 <130 SUNQUEST External Triglycerides 40 27 - 150 SUNQUEST External Very Low Lipoprotein 8 0 - 30 SUNQUEST 01/14/2022 Jesenia Peng [facility] LAB BLOOD ORDERABLES Fi nal Result Performing Organization Address City/[facility]/ZIP Co de Phone Number SUNQUEST * (ABNORMAL) Comprehensive metabolic panel (01/14/2022) External Blood Urea Nitrogen Bun 28(A) 5 - 27 SUNQUEST 01/14/2022 Jesenia Peng [facility] LAB BLOOD ORDERABLES Fi nal Result Performing Organization Address City/[facility]/ZIP Co de Phone Number SUNQUEST * CBC auto differential (01/14/2022) 01/14/2022 Jesenia LAFLEUR LAB BLOOD ORDERABLES Fi nal [...] documented as of this encounter Care Teams Electronic Warfare Linguist Relationship Specialty Start Date End Date Jesenia Peng APRN-CNP [address] [place] [address], [address] [place] [address] PCP - General 03/19/15 documented as of this encounter
--- OUTSIDE RECORDS SUMMARY | 2025-07-26 11:27 | XMS_ITS | Encounter Summary ---
Author Organization [email or web address] Address [facility] [id number] [address] [place] [address] Care Team Providers Care Rotary Drill Operator Helper Name Role Phone Jesenia Peng AUTOMATION SPECIALIST-DRUG ABUSE PROGRAM COORDINATOR Primary Care Provider Encounter Details Date Type Department Care Team (Late st Contact Info) Description 10/10/2021 Orders Only [facility] [address] [facility] [address] [place] [address] Ref Prov, [place] [address] Social History Tobacco Use Types Packs/Day Years [...] Office Visit [facility], A Department of [facility] [address] [facility] 101, 102, 103 [place] [address] Trice Stinson MD [address] [facility], [address] 101, 102, 103 [place] [address] 08/03/2025 9:30 AM EDT Procedure visit [facility] On [address] [address] 08/07/2025 11:00 AM EDT Office Visit [facility] [address] [facility] 170 [place] [address] Isidro Woodall DO [address] [place] [place] [address] 08/07/2025 11:00 AM EDT Appointment [facility] [address] [place] [address] 08/09/2025 12:00 PM EDT Hospital Encounter [facility] - Endoscopy [address] [place] [address] [place] [address] [place] [address], [address] [place] [address] 08/09/2025 12:00 PM EDT - 08/09/2025 12:30 PM EDT Surgery [facility] - Endoscopy [address] [place] [address] [place] [address] [place] [address], [address] [place] [address] ESOPHAGOGASTRODUODENOSCOPY DIAGNOSTIC [21353 (CPT )] 08/21/2025 2:30 PM EDT Appointment [facility] [address] [place] [address] 08/22/2025 2:30 PM EDT Office Visit [facility] [address] [facility] 170 [place] [address] Isidro Woodall, DO [address] [facility] 170 [place] [address] 08/23/2025 1:30 PM EDT Office Visit [facility] [address] [facility] 170 [place] [address] Jesenia Peng, AUTOMATION SPECIALIST-DRUG ABUSE PROGRAM COORDINATOR [address] [facility], [address] [place] [address] 09/26/2025 1:30 PM EST Office Visit [facility], A Department of [address] [phone] Neli Clemente MD MPH [address] [place] [address] 10/13/2025 11:45 AM EST Office Visit [facility] Cardiology [address] [place] [phone] Duong Johnson, DO [address] [place] [address], [address] [place] [address] 10/13/2025 3:15 PM EST [facility], A Department of [address] [phone] Ines Uribe PA-C [address] [place] [address], [address] [id number] 11/14/2025 12:20 PM EST Office Visit [facility] [phone] Ofelia Pierce V, AUTOMATION SPECIALIST-DRUG ABUSE PROGRAM COORDINATOR [address] [place] [address] [address] [place] [address] 11/21/2025 12:30 PM EST Appointment [facility] [place] - Mammography [address] [place] [address] Scheduled Procedures Name Priority Associated Diagnoses Date/Ti me ESOPHAGOGASTRODUODENOSCOPY DIAGNOSTIC Esophageal dysphagia (R13.19) 08/09/2025 12:00 PM EDT documented as of this encounter Procedures Procedure Name Priority Date/Time Associated Diagnosis Comments HM DEXA SCAN Routine 09/12/2021 documented in this [...] documented as of this encounter Care Teams Rotary Drill Operator Helper Relationship Specialty Start Date End Date Jesenia Peng APRN-DRUG ABUSE PROGRAM COORDINATOR [address] [place] [address], [address] [place] [address] PCP - General 03/19/15 documented as of this encounter
--- OUTSIDE RECORDS SUMMARY | 2025-07-26 11:27 | XMS_ITS | Encounter Summary ---
Author Organization [email or web address] tem Address [id number] [address] [place] [address] Care Team Providers Care Steel Heater Name Role Phone Jesenia Peng Primary Care Provider Reason for Referral * Consultation (Routine) - Closed Specialty Diagnoses / Procedures Referred By Madeline giles Referred To Contact Orthopaedic Surgery Diagnoses Tear of right hamstring Jesenia Peng APRN-CNP [address] [facility], [address] [place] [address] Phone: tel: fax: Rikki Adkins MD Phone: tel: fax: Referral ID Status Reason Start Date Expiration Date V isits Requested Visits Authorized [id number] Closed Specialty Services Required 08/29/2020 08/29/2021 1 1 Encounter Details Date Type Department Care Team (Late st Contact Info) Description 08/29/2020 Orders Only [facility] [address] [place] [address] Jesenia Peng APRN-CNP [address] [facility], [address] [place], [place] [id number] Tear of right hamstring (Primary Dx) Social [...] Visit [facility], A Department of [address] 101, [address], 103 [place] [address] Trice Stinson MD [address] [place] [address] 101, 102, 103 [place] [address] 08/03/2025 9:30 AM EDT Procedure visit [facility] On [address] [address] 08/07/2025 11:00 AM EDT Office Visit [facility] [address] [facility] 170 [place] [phone] Isidro Woodall DO [address] [facility] 170 [place] [address] 08/07/2025 11:00 AM EDT Appointment [facility] Radiology [address] [place] [address] 08/09/2025 12:00 PM EDT Hospital Encounter [facility] - Endoscopy [address] [place] [address] [place] [address] [place] [address], [address] [place] [address] 08/09/2025 12:00 PM EDT - 08/09/2025 12:30 PM EDT Surgery [facility] Division of [facility] - Endoscopy [address] [place] [address] [place] [address] [place] [address], [address] [place] [address] ESOPHAGOGASTRODUODENOSCOPY DIAGNOSTIC [85837 (CPT )] 08/21/2025 2:30 PM EDT Appointment [facility] Radiology [address] [place] [address] 08/22/2025 2:30 PM EDT Office Visit [facility] [address] [facility] [address] [place] [address] Isidro Woodall, DO [address] [facility] 170 [place] [address] 08/23/2025 1:30 PM EDT Office Visit [facility] [address] [facility] 170 [place] [address] Jesenia Peng, LINE SUPERVISOR-CLINICAL NURSING DIRECTOR [address] [facility], [address] [place] [address] 09/26/2025 1:30 PM EST Office Visit [facility], A Department of [address] [place] [address] Neli Clemente MD MPH [address] [place] [address] 10/13/2025 11:45 AM EST Office Visit [facility] Cardiology [address] [facility] 202 [place] [address] Duong Johnson DO [address] [facility], [address] [place] [address] 10/13/2025 3:15 PM EST Office Visit [facility], A Department of [address] [place] [address] Ines Uribe PA-C [address] [place] [address], [address] [place] [address] 11/14/2025 12:20 PM EST Office Visit [facility] [address] [place] [address] Ofelia Pierce V, LINE SUPERVISOR-CLINICAL NURSING DIRECTOR [address] [place] [address] 11/21/2025 12:30 PM EST Appointment [facility] [address] [place] [address] Scheduled Procedures Name Priority Associated Diagnoses Date/Ti [...] as of this encounter Care Teams Steel Heater Relationship Specialty Start Date End Date Jesenia Peng, RADHA-CLINICAL NURSING DIRECTOR [address] [place] [address], [address] [place] [address] PCP - General 03/19/15 documented as of this encounter
--- OUTSIDE RECORDS SUMMARY | 2025-07-26 11:27 | XMS_ITS | Encounter Summary ---
Author Organization [employer] tem Address [facility]-[id number] [address] [place] [address] Care Team Providers Care Coffee Break Attendant Name Role Phone Jesenia Peng DIABETES TRAINER-CAR CONSTRUCTION SUPERINTENDENT Primary Care Provider Encounter Details Date Type Department Care Team (Late st Contact Info) Description 02/13/2022 Telephone [facility] [address] [place] [address] Nadiya Higgins CMA Social History Tobacco Use [...] Visit [facility], A Department of [address] 101, 102, [address] [place] [address] Trice Stinson MD [address] [place] [address] 101, 102, 103 [place] [address] 08/03/2025 9:30 AM EDT Procedure visit [facility] On [address] [address] 08/07/2025 11:00 AM EDT Office Visit [facility] [address] [facility] [address] [place] [address] Isidro Woodall DO [address] [facility] 170 [place] [address] 08/07/2025 11:00 AM EDT Appointment [facility] [address] [facility] [place] [address] 08/09/2025 12:00 PM EDT Hospital Encounter [facility] - Endoscopy [address] [place] [address] [place] [address] [place] [address], [address] [facility] [place] [address] 08/09/2025 12:00 PM EDT - 08/09/2025 12:30 PM EDT Surgery [facility] - Endoscopy [address] [place] [address] Cliff Greenfield MD [address] [facility], [address] [place] [address] ESOPHAGOGASTRODUODENOSCOPY DIAGNOSTIC [14960 (CPT )] 08/21/2025 2:30 PM EDT Appointment [facility] [address] [place] [address] 08/22/2025 2:30 PM EDT Office Visit [facility] [address] [facility] 170 [place] [address] Isidro Woodall, DO [address] [facility] 170 [place] [address] 08/23/2025 1:30 PM EDT Office Visit [facility] [address] [facility] 170 [place] [address] Jesenia Peng, DIABETES TRAINER-CAR CONSTRUCTION SUPERINTENDENT [address] [facility], [address] [place] [address] 09/26/2025 1:30 PM EST Office Visit [facility] Rheumatology, A Department of [address] [place] [address] Neli Clemente MD MPH [address] [place] [address] 202 [place] [address] 10/13/2025 11:45 AM EST Office Visit [facility] Cardiology [address] [place] [address] 202 [place] [address] Duong Johnson, [address] [facility], [address] [place] [address] 10/13/2025 3:15 PM EST Office Visit [facility], A Department of [address] [place] [address] Ines Uribe, ALEXC [address] [place] [address], [address] [place] [address] 11/14/2025 12:20 PM EST Office Visit [facility] [address] [facility] 170 [place] [address] Ofelia Pierce V, DIABETES TRAINER-CAR CONSTRUCTION SUPERINTENDENT [address] [facility] [address] [place] [address] 11/21/2025 12:30 PM EST Appointment [facility] [address] [place] [address] Scheduled Procedures Name Priority Associated Diagnoses Date/Ti dc ESOPHAGOGASTRODUODENOSCOPY DIAGNOSTIC Esophageal dysphagia (R13.19) 08/09/2025 12:00 [...] documented as of this encounter Care Teams Coffee Break Attendant Relationship Specialty Start Date End Date Jesenia Peng APRN-CAR CONSTRUCTION SUPERINTENDENT [address] [place] [address], [address] [place] [address] PCP - General 03/19/15 documented as of this encounter
--- OUTSIDE RECORDS SUMMARY | 2025-07-26 11:27 | XMS_ITS | Encounter Summary ---
Author Organization [facility] Address [id number] [address] [place] [place] [address] Care Team Providers Care Scada Operator Name Role Phone Jesenia Peng MAINTENANCE SHOP MANAGER-SAFETY TECHNICIAN Primary Care Provider Encounter Details Date Type Department Care Team (Late st Contact Info) Description 02/01/2024 Orders Only [facility] [address] [place] [address] EllyJaja moy MA Health care maintenance Social [...] Visit [facility], A Department of [address], [address], [address] [place] [address] Trice Stinson MD [address] [facility], [address], 102, 103 [place] [address] 08/03/2025 9:30 AM EDT Procedure visit [facility] On [address] [address] 08/07/2025 11:00 AM EDT Office Visit [facility] [address] [facility] 170 [place] [address] Isidro Woodall DO [address] [facility] 170 [place] [address] 08/07/2025 11:00 AM EDT Appointment [facility] Radiology [address] [place] [address] 08/09/2025 12:00 PM EDT Hospital Encounter [facility] - Endoscopy [address] [place] [address] [place] [address] [place] [address], [address] [place] [address] 08/09/2025 12:00 PM EDT - 08/09/2025 12:30 PM EDT Surgery [facility] - Endoscopy [address] [place] [address] [place] [address] [place] [address], [address] [place] [address] ESOPHAGOGASTRODUODENOSCOPY DIAGNOSTIC [08015 (CPT )] 08/21/2025 2:30 PM EDT Appointment [facility] [address] [place] [address] 08/22/2025 2:30 PM EDT Office Visit [facility] [address] [facility] 170 [place] [address] Isidro Woodall, DO [address] [facility] 170 [place] [address] 08/23/2025 1:30 PM EDT Office Visit [facility] [address] [facility] 170 [place] [address] Jesenia Peng, MAINTENANCE SHOP MANAGER-SAFETY TECHNICIAN [address] [facility], [address] [place] [address] 09/26/2025 1:30 PM EST Office Visit [facility], A Department of [address] [phone] Neli Clemente MD MPH [address] [place] [phone] 10/13/2025 11:45 AM EST Office Visit [facility] Cardiology [address] [place] [phone] Duong Johnson, [address] [place] [address], [address] [place] [address] 10/13/2025 3:15 PM EST [facility], A Department of [address] [phone] Ines Uribe PA-C [address] [place] [address], [address] [place] [address] 11/14/2025 12:20 PM EST Office Visit [facility] [address] [place] [address] Ofelia Pierce V, MAINTENANCE SHOP MANAGER-SAFETY TECHNICIAN [address] [place] [id number] 11/21/2025 12:30 PM EST Appointment [facility] [place] - Mammography [address] [place] [address] Scheduled Procedures Name Priority Associated [...] Results * CBC auto differential (01/26/2024) 01/26/2024 Jesenia Peng MAINTENANCE SHOP MANAGER-SAFETY TECHNICIAN LAB BLOOD ORDERABLES Fi nal Result SUNQUEST * (ABNORMAL) Comprehensive metabolic panel (01/26/2024) External Co2 / Carbon Dioxide 33(A) 19 - 31 SUNQUEST 01/26/2024 us Jesenia Peng MAINTENANCE SHOP MANAGER-SAFETY TECHNICIAN LAB BLOOD ORDERABLES Fi nal Result Performing Organization Address [facility]/ZIP Co de Phone Number SUNQUEST * Lipid profile (01/26/2024) External Cholesterol 173 <200 [facility]QUEST External Cholesterol:Hdl 2.9 <4.44 SUNQUEST External Hdl Cholesterol 60 >39 SUNQUEST External Ldl (Calc) 100 <100 [facility]QUEST External Triglycerides 66 <149 SUNQUEST External Very Low Lipoprotein 13 <30 [facility] Ldl/Hdl Ratio 1.7 <3.2 [facility]QUEST 01/26/2024 Jesenia Peng MAINTENANCE SHOP MANAGER-SAFETY TECHNICIAN LAB BLOOD ORDERABLES Fi nal Result Performing Organization Address [email or web address]] de Phone Number SUNQUEST * Urinalysis (01/26/2024) [...] Occasional None Seen, Occasional /LPF SUNQUEST 01/26/2024 Result [facility] Jesenia Peng MAINTENANCE SHOP MANAGERCadence BancorpSAFETY TECHNICIAN URINE ORDERABLES Final Result Performing Organization Address [facility] Co de Phone Number SUNQUEST documented in [...] documented as of this encounter Care Teams Scada Operator Relationship Specialty Start Date End Date Jesenia Peng APRN-JONEL [address] [place] [address], [address] [place] [address] PCP - General 03/19/15 documented as of this encounter
--- OUTSIDE RECORDS SUMMARY | 2025-07-26 11:27 | XMS_ITS | Encounter Summary ---
Author Organization [facility] Address [id number] [address] [place] [address] Care Team Providers Care Wreath And Garland Maker Name Role Phone Jesenia Peng ONSITE CASE MANAGER-SNOWSPORT INSTRUCTOR Primary Care Provider Encounter Details Date Type Department Care Team (Late st Contact Info) Description 11/18/2023 Orders Only [facility] [address] [place] [address] Jaja Sanabria MA Encounter for [...] Office Visit [facility], A Department of [address] 101, 102, 103 [place] [address] Trice Stinson MD [address] [place] [address] 101, 102, 103 [place] [address] 08/03/2025 9:30 AM EDT [facility] On [address] [address] 08/07/2025 11:00 AM EDT Office Visit [facility] [address] [facility] 170 [place] [address] Isidro Woodall DO [address] [facility] 170 [place] [address] 08/07/2025 11:00 AM EDT Appointment [facility] [address] [place] [address] 08/09/2025 12:00 PM EDT Hospital Encounter [facility] - Endoscopy [address] [place] [address] Cliff Greenfield MD [address] [place] [address], [address] [place] [address] 08/09/2025 12:00 PM EDT - 08/09/2025 12:30 PM EDT Surgery [facility] - Endoscopy [address] [place] [address] Cliff Greenfield MD [address] [place] [address], [address] [facility] [address] ESOPHAGOGASTRODUODENOSCOPY DIAGNOSTIC [01806 (CPT )] 08/21/2025 2:30 PM EDT Appointment [facility] [address] [place] [address] 08/22/2025 2:30 PM EDT Office Visit [facility] [address] [facility] 170 [place] [address] Isidro Woodall, DO [address] N [facility] 170 [place] [address] 08/23/2025 1:30 PM EDT Office Visit [facility] [address] [facility] 170 [place] [address] Jesenia Peng, ONSITE CASE MANAGER-SNOWSPORT INSTRUCTOR 28[address] [facility], [address] [place] [address] 09/26/2025 1:30 PM EST Office Visit [facility], A Department of [address] [phone] Neli Clemente MD MPH [address] [place] [phone] 10/13/2025 11:45 AM EST Office Visit [facility] Cardiology [address] [place] [address] 202 [place] [address] Duong Johnson, DO [address] [place] [address], [address] [place] [address] 10/13/2025 3:15 PM EST [facility], A Department of [address] [phone] Ines Uribe PA-C [address] [place] [address], [address] [place] [address] 11/14/2025 12:20 PM EST Office Visit [facility] [address] [place] [address] Ofelia Pierce V ONSITE CASE MANAGER-SNOWSPORT INSTRUCTOR [address] [place] [address] 11/21/2025 12:30 PM EST Appointment [facility] [place] - Mammography [address] [place] [phone] Scheduled Orders Name Type Priority Associated Diagnoses Orde r Schedule Mammography screening bilateral with CAD Imaging Routine Encounter for screening mammogram for malignant neoplasm of breast Expected: 11/18/2023, Expires: 11/18/2024 Scheduled Procedures Name Priority Associated Diagnoses Date/Ti [...] documented as of this encounter Care Teams Wreath And Garland Maker Relationship Specialty Start Date End Date Jesenia Peng, ONSITE CASE MANAGER-SNOWSPORT INSTRUCTOR [address] [facility], [address] [place] [address] PCP - General 03/19/15 documented as of this encounter
--- OUTSIDE RECORDS SUMMARY | 2025-07-26 11:27 | XMS_ITS | Encounter Summary ---
Author Organization [facility] tem Address [id number] [address] [place] [address] Care Team Providers Care Tin Pourer Name Role Phone Jesenia Peng HEEL NAIL RASPER-TEST DRILLER Primary Care Provider Encounter Details Date Type Department Care Team (Late st Contact Info) Description 07/25/2025 Results Follow-Up [facility] Neurology, A Department of [address], [address], 103 [place] [phone] Trice Stinson MD [address] [place] [address] 101, 102, 103 [place], [place] [phone] Fluoroscopy swallow motility function Social History Tobacco Use Types Packs/Day Years [...] Visit [facility], A Department of [address] 101, 102, 103 [place] [phone] Trice Stinson MD [address] [place] [address] 101, 102, 103 [place] [address] 08/03/2025 9:30 AM EDT Procedure visit [facility] On [address] [address] 08/07/2025 11:00 AM EDT Office Visit [facility] [address] [facility] 170 [place] [address] Isidro Woodall DO [address] [facility] [address] [place] [address] 08/07/2025 11:00 AM EDT Appointment [facility] [address] [place] [address] 08/09/2025 12:00 PM EDT Hospital Encounter [facility] - Endoscopy [address] [place] [address] Cliff Greenfield MD 5700 [facility], [address] [place] [address] 08/09/2025 12:00 PM EDT - 08/09/2025 12:30 PM EDT Surgery [facility] - Endoscopy [address] [place] [address] [place] [address] [place] [address], [address] [place] [address] ESOPHAGOGASTRODUODENOSCOPY DIAGNOSTIC [39796 (CPT )] 08/21/2025 2:30 PM EDT Appointment [facility] [address] [place] [address] 08/22/2025 2:30 PM EDT Office Visit [facility] 2865 [facility] 170 [place] [address] Isidro Woodall, DO 2865 [facility] 170 [place] [address] 08/23/2025 1:30 PM EDT Office Visit [facility] [address] [phone] Jesenia Peng, HEEL NAIL RASPER-TEST DRILLER [address] [place] [address], 170 [place] [address] 09/26/2025 1:30 PM EST Office Visit [facility], A Department of [address] [phone] Neli Clemente MD MPH [address] [place] [address] 10/13/2025 11:45 AM EST Office Visit [facility] Cardiology [address] [place] [phone] Duong Johnson, DO [address] [place] [address], [address] [place] [address] 10/13/2025 3:15 PM EST Office Visit [facility], A Department of [address] [address] Ines Uribe PA-C 5700 [facility], [address] [place] [address] 11/14/2025 12:20 PM EST Office Visit [facility] [address] [facility] [address] [place] [phone] Ofelia Pierce APRN-TEST DRILLER 28[address] [facility] [address] [place] [address] 11/21/2025 12:30 PM EST Appointment [facility] [place] - Mammography [address] [place] [address] Scheduled Procedures Name Priority Associated [...] documented as of this encounter Care Teams Tin Pourer Relationship Specialty Start Date End Date Jesenia Peng APRN-TEST DRILLER 2865 [facility], [address] [place] [address] PCP - General 03/19/15 documented as of this encounter
--- OUTSIDE RECORDS SUMMARY | 2025-07-26 11:27 | XMS_ITS | Encounter Summary ---
Author Organization [facility] tem Address [id number] [address] [place] [address] Care Team Providers Care Stranding Supervisor Name Role Phone Jesenia Peng PAPER SUPERVISOR-ELECTROLYSIS ENGINEER Primary Care Provider Reason for Visit * Reason Comments Med Refill Encounter Details Date Type Department Care Team (Late st Contact Info) Description 07/14/2023 Refill [facility] [address] [place] [phone] Jacky Martinez, PAPER SUPERVISORBOSTON NURSERY FOR BLIND BABIES [address] [place], [place] [phone] Med Refill Social History Tobacco Use Types [...] Description 08/01/2025 2:00 PM EDT Office Visit [facility], A Department of [address] 101, 102, 103 [place] [address] Trice Stinson MD [address] [place] [address], [facility] 101, 102, 103 [place] [address] 08/03/2025 9:30 AM EDT Procedure visit [facility] On [address] [address] 08/07/2025 11:00 AM EDT Office Visit [facility] Physical Medicine [facility] Rehabilitation [address] [facility] [address] [place] [phone] Isidro Woodall DO [address] [facility] 170 [place] [address] 08/07/2025 11:00 AM EDT Appointment [facility] Rad[facility] [address] [place] [address] 08/09/2025 12:00 PM EDT Hospital Encounter [facility] - Endoscopy [address] [place] [address] Cliff Greenfield MD [address] [place] [address], [address] [facility] [place] [address] 08/09/2025 12:00 PM EDT - 08/09/2025 12:30 PM EDT Surgery [facility] Division [facility] - Endoscopy [address] [place] [address] Cliff Greenfield MD [address] [place] [address], [address] [facility] [place] [address] ESOPHAGOGASTRODUODENOSCOPY DIAGNOSTIC [26404 (CPT )] 08/21/2025 2:30 PM EDT Appointment [facility] Rad[facility] [address] [place] [address] 08/22/2025 2:30 PM EDT Office Visit [facility] [address] [facility] [address] [place] [address] Isidro Woodall, DO [address] [facility] 170 [place] [address] 08/23/2025 1:30 PM EDT Office Visit [facility] [address] [facility] [address] [place] [address] Jesenia Peng, PAPER SUPERVISOR-ELECTROLYSIS ENGINEER [address] [facility], [address] [place] [address] 09/26/2025 1:30 PM EST Office Visit [facility], A Department of [address] [phone] Neli Clemente MD MPH [address] [place] [phone] 10/13/2025 11:45 AM EST Office Visit [facility] Card[facility] [address] [place] [address] [address] [place] [address] Duong Johnson DO [address] [place] [address], [address] [place] [address] 10/13/2025 3:15 PM EST [facility], A Department of [address] [phone] Ines Uribe PA-C [address] [place] [address], 103 [place] [address] 11/14/2025 12:20 PM EST Office Visit [facility] Medicine and Rehabilitation [facility] [address] [place] [phone] Ofelia Pierce APRN-ELECTROLYSIS ENGINEER [address] [facility] [address] [place] [address] 11/21/2025 12:30 PM EST Appointment [facility] [place] - Mammography [address] [place] [address] Scheduled Procedures Name [...] documented as of this encounter Care Teams Stranding Supervisor Relationship Specialty Start Date End Date Jesenia Peng, PAPER SUPERVISOR-ELECTROLYSIS ENGINEER [address] [facility], [address] [place] [address] PCP - General 03/19/15 documented as of this encounter
--- OUTSIDE RECORDS SUMMARY | 2025-07-26 11:28 | XMS_ITS | Encounter Summary ---
Author Organization [facility] tem Address [facility] [id number] [address] [place] [address] Care Team Providers Care Director Loan Name Role Phone Jesenia Peng REGULATION SUPERVISOR-FORENSIC ANALYST Primary Care Provider Encounter Details Date Type Department Care Team (Late st Contact Info) Description 09/19/2020 Orders Only [facility] [address] [facility] [address] [place] [address] Jesenia Peng, REGULATION SUPERVISOR-FORENSIC ANALYST [address] [facility], [address] [place], [place] [phone] Social History Tobacco Use Types Packs/Day Years [...] Visit [facility], A Department of [address], [address], [address] [place] [address] Trice Stinson MD [address] [place] [address], [address], 102, [address] [place] [address] 08/03/2025 9:30 AM EDT Procedure visit [facility] On [address] [address] 08/07/2025 11:00 AM EDT Office Visit [facility] [address] [facility] [address] [place] [address] Isidro Woodall DO [address] [facility] [address] [place] [address] 08/07/2025 11:00 AM EDT Appointment [facility] Rad[facility] [address] [place] [address] 08/09/2025 12:00 PM EDT Hospital Encounter [facility] - Endoscopy [address] [place] [address] [place] [address] [place] [address], [address] [place] [address] 08/09/2025 12:00 PM EDT - 08/09/2025 12:30 PM EDT Surgery [facility] - Endoscopy [address] [place] [address] Cliff Greenfield MD [address] [facility], [address] [facility] [place] [place] [address] ESOPHAGOGASTRODUODENOSCOPY DIAGNOSTIC [61096 (CPT )] 08/21/2025 2:30 PM EDT Appointment [facility] [address] [place] [address] 08/22/2025 2:30 PM EDT Office Visit [facility] [address] [facility] 170 [place] [address] Isidro Woodall, DO 2865 [facility] 170 [place] [address] 08/23/2025 1:30 PM EDT Office Visit [facility] [address] [facility] 170 [place] [phone] Jesenia Peng, REGULATION SUPERVISOR-FORENSIC ANALYST [address] [facility], 170 [place] [address] 09/26/2025 1:30 PM EST Office Visit [facility], A Department of [address] [phone] Neli Clemente MD MPH [address] [place] [address] 10/13/2025 11:45 AM EST Office Visit [facility] Cardiology [address] [place] [phone] Duong Johnson, DO [address] [place] [address], [address] [place] [address] 10/13/2025 3:15 PM EST Office Visit [facility], A Department of [address] [phone] Ines Uribe PARaphaelC [address] [place] [address], [address] [address] 11/14/2025 12:20 PM EST Office Visit [facility] [address] [place] [phone] Ofelia Pierce APRN-FORENSIC ANALYST [address] [facility] [address] [place] [address] 11/21/2025 12:30 PM EST Appointment [facility] [place] - Mammography [address] [place] [place] [phone] Scheduled Procedures Name Priority Associated Diagnoses Date/Ti [...] as of this encounter Care Teams Director Loan Relationship Specialty Start Date End Date Jesenia Peng APRN-FORENSIC ANALYST [address] [facility], [address] [place] [address] PCP - General 03/19/15 documented as of this encounter
--- OUTSIDE RECORDS SUMMARY | 2025-07-26 11:28 | XMS_ITS | Encounter Summary ---
Author Organization [facility] tem Address [facility] [place][id number] [address] [place] [address] Care Team Providers Care Offbearer Name Role Phone Jesenia Peng PRODUCTION GEAR CUTTER-SPECIALTY DEPARTMENT SUPERVISOR Primary Care Provider Reason for Visit * Reason Onset Date Comments Care Navigation 05/05/2025 Encounter Details Date Type Department Care Team (Late st Contact Info) Description 05/05/2025 [facility]phone [facility] [address] [place] [phone] Amy Flanagan, KIMBERLEY Care Navigation Social History [...] 50 cc/hr x 48 hours. Pt has [facility] insurance. Annalise also stated that Pt requests SOLUTIONS SPECIALIST to cover the hours while works. Advised that this would likely be private pay and Annalise stated that is not a problem. Navigator spoke with Edwin at [facility] and was told they no longer service Pts needing hydration at home. She directed Navigator to [facility]. Navigator was told by [facility] staff that they do not supply home IV hydration and do not know anyone who does. Navigator spoke with staff at the Infusion Centers at [facility] and [facility] and they do not have any openings for infusions today or next week. Message left at the Infusion Center at [facility]. [facility] in [place] has no openings for infusions today. A message was left for the [facility] in [place]. Navigator spoke with Jaja Murry at the [facility] ([phone]) and they have time in their schedule today to give Pt a fluid bolus over 1-2 hours. Signed orders with dx and demographics need to be faxed to them JODY at [phone]. Pt needs to be there by 1330 -1400. Annalise at PCP office was notified of above. Annalise was also advised to tell Pt / family that they can callany home care agency to arrange for a private pay SOLUTIONS SPECIALIST. documented in this encounter Plan of Treatment Upcoming Encounters Date Type Department Care Team (Latest Contact Info) Description 08/01/2025 2:00 PM EDT Office Visit [facility] Neurology, A Department of [facility] [address] [facility] [facility] 101, 102, [address] [place] [address] Trice Stinson MD [address] [facility], [address] 101, 102, 103 [place] [address] 08/03/2025 9:30 AM EDT Procedure visit [facility] On [address] [address] 08/07/2025 11:00 AM EDT Office Visit [facility] [address] [facility] 170 [place] [address] Isidro Woodall DO [address] [facility] 170 [place] [address] 08/07/2025 11:00 AM EDT Appointment [facility] [address] [place] [address] 08/09/2025 12:00 PM EDT Hospital Encounter [facility] - Endoscopy [address] [place] [address] [place] [address] [place] [address], [address] [place] [address] 08/09/2025 12:00 PM EDT - 08/09/2025 12:30 PM EDT Surgery [facility] - Endoscopy [address] [place] [address] Cliff Greenfield MD [address] [place] [address], [address] [place] [address] ESOPHAGOGASTRODUODENOSCOPY DIAGNOSTIC [15706 (CPT )] 08/21/2025 2:30 PM EDT Appointment [facility] [address] [place] [address] 08/22/2025 2:30 PM EDT Office Visit [facility] [address] [facility] [address] [place] [address] Isidro Woodall, DO 2865 [facility] 170 [place] [address] 08/23/2025 1:30 PM EDT Office Visit [facility] [address] [facility] 170 [place] [address] Jesenia Peng, PRODUCTION GEAR CUTTER-SPECIALTY DEPARTMENT SUPERVISOR 2865 [facility], 170 [place] [address] 09/26/2025 1:30 PM EST Office Visit [facility], A Department of [address] [phone] Neli Clemente MD MPH [address] [place] [phone] 10/13/2025 11:45 AM EST Office Visit [facility] Cardiology [address] [place] [phone] Duong Johnson, DO [address] [place] [address], [address] [place] [address] 10/13/2025 3:15 PM EST Office Visit [facility], A Department of [address] [phone] Ines Uribe PA-C [address] [place] [address], [address] [address] 11/14/2025 12:20 PM EST Office Visit [facility] Rehabilitation [address] [place] [phone] Ofelia Pierce V, PRODUCTION GEAR CUTTER-SPECIALTY DEPARTMENT SUPERVISOR [address] [facility] [address] [place] [address] 11/21/2025 12:30 PM EST Appointment [facility] [place] - Mammography [address] [place] [address] Scheduled Procedures Name Priority Associated [...] documented as of this encounter Care Teams Offbearer Relationship Specialty Start Date End Date Jesenia Peng APRN-SPECIALTY DEPARTMENT SUPERVISOR [address] [place] [address], [address] [place] [address] PCP - General 03/19/15 documented as of this encounter
--- OUTSIDE RECORDS SUMMARY | 2025-07-26 11:28 | XMS_ITS | Encounter Summary ---
Author Organization [facility] tem Address [facility]-[id number] [address] [place] [address] Care Team Providers Care Glass Production Machine Operator Name Role Phone Jesenia Peng WEB ASSISTANT-SHIP OFFICER Primary Care Provider Encounter Details Date Type Department Care Team (Late st Contact Info) Description 09/27/2020 Orders Only [facility] [address] [facility] [address] [place] [address] Anamaria Perkins CMA Social History [...] Office Visit [facility], A Department of [facility] [address], [address] [place] [address] Trice Stinson MD 2[address] [facility] 101, 102, [address] [place] [address] 08/03/2025 9:30 AM EDT Procedure visit [facility] On [address] [address] 08/07/2025 11:00 AM EDT Office Visit [facility] [address] [facility] [address] [place] [address] Isidro Woodall DO [address] [facility] 170 [place] [address] 08/07/2025 11:00 AM EDT Appointment [facility] [address] [place] [address] 08/09/2025 12:00 PM EDT Hospital Encounter [facility]oscopy [address] [place] [address] Cliff Greenfield MD [address] [place] [address], [address] [place] [address] 08/09/2025 12:00 PM EDT - 08/09/2025 12:30 PM EDT Surgery [facility]oscopy [address] [place] [address] [place] [address] [place] [address], [address] [place] [address] ESOPHAGOGASTRODUODENOSCOPY DIAGNOSTIC [38638 (CPT )] 08/21/2025 2:30 PM EDT Appointment [facility] [address] [place] [address] 08/22/2025 2:30 PM EDT Office Visit [facility] [address] [facility] 170 [place] [phone] Isidro Woodall, DO [address] [facility] 170 [place] [address] 08/23/2025 1:30 PM EDT Office Visit [facility] [address] [facility] [address] [place] [phone] Jesenia Peng, WEB ASSISTANT-SHIP OFFICER [address] [facility], [address] [place] [address] 09/26/2025 1:30 PM EST Office Visit [facility] Rheumatology, A Department of [address] [phone] Neli Clemente MD MPH [address] [place] [phone] 10/13/2025 11:45 AM EST Office Visit [facility] [address] [place] [phone] Duong Johnson, DO [address] [facility], [address] [place] [address] 10/13/2025 3:15 PM EST Office Visit [facility], A Department of [address] [phone] Ines Uribe PA-C [address] [place] [address], [address] [place], [place] [phone] 11/14/2025 12:20 PM EST Office Visit [facility] Rehabilitation [address] [address] Ofelia Pierce V, WEB ASSISTANT-SHIP OFFICER [address] [place] [address] [address] [place] [address] 11/21/2025 12:30 PM EST Appointment [facility] [place] - Mammography [address] [place] [phone] Scheduled Procedures Name Priority Associated Diagnoses Date/Ti [...] as of this encounter Care Teams Glass Production Machine Operator Relationship Specialty Start Date End Date Jesenia Peng, WEB ASSISTANT-SHIP OFFICER [address] [place] [address], [address] [place] [address] PCP - General 03/19/15 documented as of this encounter
--- OUTSIDE RECORDS SUMMARY | 2025-07-26 11:28 | XMS_ITS | Encounter Summary ---
Author Organization [employer] [facility] tem Address [id number] [address] [place] [address] Care Team Providers Care Women'S Soccer Coach Name Role Phone Jesenia Peng TIRE FINISHER-SENIOR ABAP DEVELOPER Primary Care Provider Encounter Details Date Type Department Care Team (Late st Contact Info) Description 09/25/2020 [facility]phone [facility] [address] [place] [phone] Anamaria Perkins CMA Social History Tobacco Use [...] Office Visit [facility], A Department of [address] 101, 102, 103 [place] [address] Trice Stinson MD [address] [place] [address] 101, 102, 103 [place] [address] 08/03/2025 9:30 AM EDT Procedure visit [facility] On [address] [address] 08/07/2025 11:00 AM EDT Office Visit [facility] [address] [facility] 170 [place] [address] Isidro Woodall DO [address] [facility] 170 [place] [address] 08/07/2025 11:00 AM EDT Appointment [facility] [address] [place] [address] 08/09/2025 12:00 PM EDT Hospital Encounter [facility] - Endoscopy [address] [place] [address] [place] [address] [place] [address], [address] [place] [address] 08/09/2025 12:00 PM EDT - 08/09/2025 12:30 PM EDT Surgery [facility] - Endoscopy [address] [place] [address] Cliff Greenfield MD [address] [facility], [address] [place] [address] ESOPHAGOGASTRODUODENOSCOPY DIAGNOSTIC [31167 (CPT )] 08/21/2025 2:30 PM EDT Appointment [facility] [address] [place] [address] 08/22/2025 2:30 PM EDT Office Visit [facility] Rehabilitation [address] [facility] 170 [place] [address] Isidro oWodall DO [address] [facility] 170 [place] [address] 08/23/2025 1:30 PM EDT Office Visit [facility] [address] [facility] 170 [place] [address] Jesenia Peng, TIRE FINISHER-SENIOR ABAP DEVELOPER [address] [facility], [address] [place] [address] 09/26/2025 1:30 PM EST Office Visit [facility], A Department of [facility] [address] [place] [address] 202 [place] [address] Neli lCemente MD MPH 5700 [facility] 202 [place] [phone] 10/13/2025 11:45 AM EST Office Visit [facility] Cardiology [address] [place] [address] 202 [place] [address] Duong Johnson DO [address] [place] [address], [address] [place] [address] 10/13/2025 3:15 PM EST Office Visit [facility], A Department of [address] [place] [phone] Ines Uribe PA-C 5700 [facility], [address] [place] [address] 11/14/2025 12:20 PM EST Office Visit [facility] [address] [place] [phone] Ofelia Pierce V, TIRE FINISHER-SENIOR ABAP DEVELOPER [address] [place] [address] 11/21/2025 12:30 PM EST Appointment [facility] [place] [facility] [address] [place] [phone] Scheduled Procedures Name Priority Associated Diagnoses Date/Ti wy ESOPHAGOGASTRODUODENOSCOPY DIAGNOSTIC Esophageal dysphagia (R13.19) 08/09/2025 12:00 [...] documented as of this encounter Care Teams Women'S Soccer Coach Relationship Specialty Start Date End Date Jesenia Peng APRN-JONEL [address] [place] [address], [address] [place] [address] PCP - General 03/19/15 documented as of this encounter
--- OUTSIDE RECORDS SUMMARY | 2025-07-26 11:28 | XMS_ITS | Encounter Summary ---
Author Organization [employer] Sys tem Address [facility] [id number] [address] [place] [place] [address] Care Team Providers Care Fish Bait Picker Name Role Phone Jesenia Peng SALES WAREHOUSE DRIVER-UTILITY HAND Primary Care Provider Encounter Details Date Type Department Care Team (Late st Contact Info) Description 03/19/2022 Orders Only [facility] [address] [place] [phone] External, Scanning Provider Social History Tobacco Use [...] Visit [facility], A Department of [address], [address], 103 [place] [address] Trice Stinson MD [address] [place] [address] 101, 102, 103 [place] [address] 08/03/2025 9:30 AM EDT Procedure visit [facility] On [address] [address] 08/07/2025 11:00 AM EDT Office Visit [facility] [address] [facility] 170 [place] [address] Isidro Woodall DO [address] [facility] 170 [place] [address] 08/07/2025 11:00 AM EDT Appointment [facility] Rad[facility] [address] [place] [address] 08/09/2025 12:00 PM EDT Hospital Encounter [facility] - Endoscopy [address] [facility] [place] [address] [place] [address] [place] [address], [address] [place] [address] 08/09/2025 12:00 PM EDT - 08/09/2025 12:30 PM EDT Surgery [facility] - Endoscopy [address] [place] [address] [place] [address] [place] [address], [address] [place] [address] ESOPHAGOGASTRODUODENOSCOPY DIAGNOSTIC [77372 (CPT )] 08/21/2025 2:30 PM EDT Appointment [facility] [address] [place] [address] 08/22/2025 2:30 PM EDT Office Visit [facility] [address] [facility] 170 [place] [address] Isidro Woodall DO 2865 [facility] 170 [place] [address] 08/23/2025 1:30 PM EDT Office Visit [facility] [address] [facility] 170 [place] [address] Jesenia Peng, SALES WAREHOUSE DRIVER-UTILITY HAND 28[address] [facility], 170 [place] [address] 09/26/2025 1:30 PM EST Office Visit [facility], A Department of [address] [phone] Neli Clemente MD MPH [address] [place] [phone] 10/13/2025 11:45 AM EST Office Visit [facility] Cardiology [address] [place] [phone] Duong Johnson DO [address] [place] [address], [address] [place] [address] 10/13/2025 3:15 PM EST Office Visit [facility], A Department of [address] [phone] Ines Uribe PA-C [address] [place] [address], 103 [place] [address] 11/14/2025 12:20 PM EST Office Visit [facility] [address] [place] [address] fOelia Pierce APRN-UTILITY HAND [address] [place] [address] 11/21/2025 12:30 PM EST Appointment [facility] [place] - Mammography [address] [place] [phone] Scheduled Procedures Name Priority Associated Diagnoses Date/Ti [...] as of this encounter Care Teams Fish Bait Picker Relationship Specialty Start Date End Date Jesenia Peng, SALES WAREHOUSE DRIVER-UTILITY HAND [address] [facility], [address] [place] [address] PCP - General 03/19/15 documented as of this encounter
--- OUTSIDE RECORDS SUMMARY | 2025-07-26 11:28 | XMS_ITS | Encounter Summary ---
Author Organization [employer] Sys tem Address [facility] [id number] [address] [place] [address] Care Team Providers Care Banking Paralegal Name Role Phone Jesenia Peng COMMODITY SUPERVISOR-SECOND BUTLER Primary Care Provider Reason for Visit * Reason Onset Date Comments Med Refill 04/08/2022 Encounter Details Date Type Department Care Team (Late st Contact Info) Description 04/08/2022 Refill [facility] [address] [place] [address] Anamaria Perkins CMA Social History [...] Office Visit [facility], A Department of [address] 101, 102, 103 [place] [phone] Trice Stinson MD [address] [place] [address], [place] 101, 102, 103 [place] [address] 08/03/2025 9:30 AM EDT Procedure visit [facility] On [address] [address] 08/07/2025 11:00 AM EDT Office Visit [facility] [address] [facility] 170 [place] [address] Isidro Woodall DO [address] [facility] 170 [place] [address] 08/07/2025 11:00 AM EDT Appointment [facility] [address] [place] [address] 08/09/2025 12:00 PM EDT Hospital Encounter [facility] - Endoscopy [address] [place] [address] [place] [address] [place] [address], [address] [place] [address] 08/09/2025 12:00 PM EDT - 08/09/2025 12:30 PM EDT Surgery [facility] - Endoscopy [address] [place] [address] [place] [address] [place] [address], [address] [place] [address] ESOPHAGOGASTRODUODENOSCOPY DIAGNOSTIC [[id number] (CPT )] 08/21/2025 2:30 PM EDT Appointment [facility] [address] [place] [address] 08/22/2025 2:30 PM EDT Office Visit [facility] [address] [facility] 170 [place] [address] Isidro Woodall, DO [address] [facility] 170 [place] [address] 08/23/2025 1:30 PM EDT Office Visit [facility] [address] [facility] 170 [place] [address] Jesenia Peng, COMMODITY SUPERVISOR-SECOND BUTLER [address] [facility], [address] [place] [address] 09/26/2025 1:30 PM EST Office Visit [facility], A Department of [address] [phone] Neli Clemente MD MPH [address] [place] [phone] 10/13/2025 11:45 AM EST Office Visit [facility] [address] [place] [phone] Duong Johnson, [address] [place] [address], [address] [place] [address] 10/13/2025 3:15 PM EST Office Visit [facility], A Department of [address] [phone] Ines Uribe PA-C [address] [place] [address], [address] [place] [address] 11/14/2025 12:20 PM EST Office Visit [facility] [address] [place] [phone] Ofelia Pierce V, COMMODITY SUPERVISOR-SECOND BUTLER [address] [place] [address] 11/21/2025 12:30 PM EST Appointment [facility] [place] - Mammography [address] [place] [address] Scheduled Procedures Name Priority Associated [...] documented as of this encounter Care Teams Banking Paralegal Relationship Specialty Start Date End Date Jesenia Peng, COMMODITY SUPERVISOR-SECOND BUTLER [address] [facility], [address] [place] [address] PCP - General 03/19/15 documented as of this encounter
--- OUTSIDE RECORDS SUMMARY | 2025-07-26 11:28 | XMS_ITS | Encounter Summary ---
Author Organization [facility] [employer] tem Address [facility] [id number] [address] [place] [address] Care Team Providers Care Conveyor Line Bakery Worker Name Role Phone Jesenia Peng POLICE SERGEANT PRECINCT-AIRLINE MANAGERIAL SUPERVISOR Primary Care Provider Encounter Details Date Type Department Care Team (Late st Contact Info) Description 11/07/2020 Telephone [facility] [address] [facility] [address] [place] [address] Jacqueline Romero CMA Social History Tobacco Use [...] Office Visit [facility], A Department of [facility] [address], [address], [address] [place] [address] Trice Stinson MD [address] [facility], [address] 101, 102, 103 [place] [address] 08/03/2025 9:30 AM EDT Procedure visit [facility] On [address] [address] 08/07/2025 11:00 AM EDT Office Visit [facility] [address] [facility] 170 [place] [address] Isidro Woodall DO [address] [facility] 170 [place] [address] 08/07/2025 11:00 AM EDT Appointment [facility] [address] [place] [address] 08/09/2025 12:00 PM EDT Hospital Encounter [facility] - Endoscopy [address] [place] [address] Cliff Greenfield MD [address] [place] [address], [address] [facility] [place] [address] 08/09/2025 12:00 PM EDT - 08/09/2025 12:30 PM EDT Surgery [facility] - Endoscopy [address] [place] [address] [place] [address] [place] [address], [address] [place] [address] ESOPHAGOGASTRODUODENOSCOPY DIAGNOSTIC [[id number] (CPT )] 08/21/2025 2:30 PM EDT Appointment [facility] [address] [place] [address] 08/22/2025 2:30 PM EDT Office Visit [facility] [address] [facility] 170 [place] [address] Isidro Woodall, DO [address] [facility] 170 [place] [address] 08/23/2025 1:30 PM EDT Office Visit [facility] [address] [facility] 170 [place] [address] Jesenia Peng, POLICE SERGEANT PRECINCT-AIRLINE MANAGERIAL SUPERVISOR [address] [facility], [address] [place] [address] 09/26/2025 1:30 PM EST Office Visit [facility], A Department of [address] [phone] Neli Clemente MD MPH [address] [place] [phone] 10/13/2025 11:45 AM EST Office Visit [facility] Card[facility] [address] [place] [phone] Duong Johnson, DO [address] [facility], [address] [place] [address] 10/13/2025 3:15 PM EST [facility], A Department of [address] [phone] Ines Uribe PA-C [address] [place] [address], [address] [place], [place] [phone] 11/14/2025 12:20 PM EST Office Visit [facility] [address] [facility] 170 [place] [address] Ofelia Pierce V, POLICE SERGEANT PRECINCT-AIRLINE MANAGERIAL SUPERVISOR [address] [place] [address] [address] [place] [address] 11/21/2025 12:30 PM EST Appointment [facility] [place] - Mammography [address] [place] [phone] Scheduled Procedures Name Priority Associated Diagnoses Date/Ti [...] documented as of this encounter Care Teams Conveyor Line Bakery Worker Relationship Specialty Start Date End Date Jesenia Peng, POLICE SERGEANT PRECINCT-AIRLINE MANAGERIAL SUPERVISOR [address] [place] [address], [address] [place] [address] PCP - General 03/19/15 documented as of this encounter
--- OUTSIDE RECORDS SUMMARY | 2025-07-26 11:28 | XMS_ITS | Encounter Summary ---
Author Organization [employer] tem Address [facility] [place] [facility] [id number] [address] [place] [address] Care Team Providers Care Inductor Tester Name Role Phone Jesenia Peng Primary Care Provider Reason for Referral * Cardiology (Routine) - Closed Specialty Diagnoses / Procedures Referred By Contac t Referred To Contact Diagnoses Chest pressure At risk for coronary artery disease Procedures Nuc stress Lexiscan Jesenia Peng APRN-CNP [address] [place] [address], [address] [place] [address] Phone: tel: fax: Referral ID Status Reason Start Date Expiration Date Visits Re quested Visits Authorized [id number] Closed 11/14/2020 11/14/2021 1 1 * Cardiology (Routine) - Closed Specialty Diagnoses / Procedures Referred By Madeline giles Referred To Contact Diagnoses Chest pressure Dyspnea on exertion Procedures Echo complete W/O contrast Jesenia Peng APRN-CNP [address] [place] [address], [address] [place] [address] Phone: tel: fax: Referral ID Status Reason Start Date Expiration Date Visits Re quested Visits Authorized [id number] Closed 11/14/2020 11/14/2021 1 1 Encounter Details Date Type Department Care Team (Late st Contact Info) Description 11/14/2020 Orders Only [facility] [address] [place] [phone] Jesenia Peng, VALVE TESTER-CENTER HOLE REAMER [address] [facility], [address] [place] [address] Chest pressure (Primary Dx); Dyspnea on exertion; [...] Visit [facility], A Department of [address] 101, 102, 103 [place] [address] Trice Stinson MD [address] [place] [address], [facility] 101, 102, 103 [place] [address] 08/03/2025 9:30 AM EDT Procedure visit [facility] On [address] [address] 08/07/2025 11:00 AM EDT Office Visit [facility] [address] [facility] 170 [place] [address] Isidro Woodall, DO [address] [facility] 170 [place] [address] 08/07/2025 11:00 AM EDT Appointment [facility] [address] [place] [address] 08/09/2025 12:00 PM EDT Hospital Encounter [facility] - Endoscopy [address] [place] [address] [place] [address] [place] [address], [address] [place] [address] 08/09/2025 12:00 PM EDT - 08/09/2025 12:30 PM EDT Surgery [facility] - Endoscopy [address] [facility] [place] [address] Cliff Greenfield MD [address] [facility], [address] [place] [address] ESOPHAGOGASTRODUODENOSCOPY DIAGNOSTIC [[id number] (CPT )] 08/21/2025 2:30 PM EDT Appointment [facility] [address] [place] [address] 08/22/2025 2:30 PM EDT Office Visit [facility] [address] [facility] 170 [place] [address] Isidro Woodall, DO [address] [facility] 170 [place] [address] 08/23/2025 1:30 PM EDT Office Visit [facility] [address] [facility] 170 [place] [address] Jesenia Peng, VALVE TESTER-CENTER HOLE REAMER [address] [facility], [address] [place] [address] 09/26/2025 1:30 PM EST Office Visit [facility], A Department of [address] [place] [phone] Neli Clemente MD MPH [address] [place] [phone] 10/13/2025 11:45 AM EST Office Visit [facility] Cardiology [address] [place] [phone] Duong Johnson, DO [address] [place] [address], [address] [place] [address] 10/13/2025 3:15 PM EST Office [facility], A Department of [address] [place] [phone] Ines Uribe, SOPHY-C [address] [place] [address], [address] [address] 11/14/2025 12:20 PM EST Office Visit [facility] [address] [phone] Ofelia Pierce V, VALVE TESTER-CENTER HOLE REAMER [address] [facility] [place] [address] 11/21/2025 12:30 PM EST Appointment [facility] [address] [place] [phone] Scheduled Procedures Name Priority Associated Diagnoses Date/Ti nh ESOPHAGOGASTRODUODENOSCOPY DIAGNOSTIC Esophageal dysphagia (R13.19) 08/09/2025 12:00 [...] study had technical difficulties. us Jesenia Peng VALVE TESTER-CENTER HOLE REAMER CV ECHO ORDERABLES Katherine riley Result * Nuc stress Lexiscan (11/28/2020 10:24 [...] documented as of this encounter Care Teams Inductor Tester Relationship Specialty Start Date End Date Jesenia Peng APRN-CNP [address] [place] [address], [address] [place] [address] PCP - General 03/19/15 documented as of this encounter
--- OUTSIDE RECORDS SUMMARY | 2025-07-26 11:28 | XMS_ITS | Encounter Summary ---
Author Organization [facility] Sys tem Address [facility] [place][id number] [address] [place] [address] Care Team Providers Care Sterile Processing Manager Name Role Phone Jesenia Peng ELECTRICAL JOURNEYMAN-TOPPER PRESS OPERATOR Primary Care Provider Encounter Details Date Type Department Care Team (Late st Contact Info) Description 06/30/2024 Orders Only [facility] [address] [place] [phone] External, Scanning Provider Social History Tobacco Use [...] Visit [facility], A Department of [address], 102, [address] [place] [address] Trice Stinson MD [address] [place] [address], [address], [address], 103 [place] [address] 08/03/2025 9:30 AM EDT Procedure visit [facility] On [address] [address] 08/07/2025 11:00 AM EDT Office Visit [facility] [address] [facility] 170 [place] [address] Isidro Woodall DO [address] [facility] [facility] 170 [place] [address] 08/07/2025 11:00 AM EDT Appointment [facility] [address] [place] [address] 08/09/2025 12:00 PM EDT Hospital Encounter [facility] - Endoscopy [address] [facility] [address] [place] [address] [place] [address], [address] [place] [address] 08/09/2025 12:00 PM EDT - 08/09/2025 12:30 PM EDT Surgery [facility] - Endoscopy [address] [place] [address] Cliff Greenfield MD [address] [place] [address], [address] [facility] [place] [address] ESOPHAGOGASTRODUODENOSCOPY DIAGNOSTIC [[id number] (CPT )] 08/21/2025 2:30 PM EDT Appointment [facility] [address] [place] [address] 08/22/2025 2:30 PM EDT Office Visit [facility] [address] [facility] 170 [place] [address] Isidro Woodall, DO [address] [facility] 170 [place] [address] 08/23/2025 1:30 PM EDT Office Visit [facility] [address] [facility] 170 [place] [address] Jesenia Peng, ELECTRICAL JOURNEYMAN-TOPPER PRESS OPERATOR [address] [facility], [address] [place] [address] 09/26/2025 1:30 PM EST Office Visit [facility], A Department of [address] [phone] Neli Clemente MD MPH [address] [place] [phone] 10/13/2025 11:45 AM EST Office Visit [facility] Cardiology [address] [place] [phone] Duong Johnson, DO [address] [place] [address], [address] [place] [address] 10/13/2025 3:15 PM EST Office Visit [facility], A Department of [address] [phone] Ines Uribe PARaphaelC [address] [place] [address], [address] [place] [address] 11/14/2025 12:20 PM EST Office Visit [facility] [address] [place] [phone] Ofelia Pierce V ELECTRICAL JOURNEYMAN-TOPPER PRESS OPERATOR [address] [place] [address] 11/21/2025 12:30 PM EST Appointment [facility] [place] - Mammography [address] [place] [address] Scheduled Procedures Name Priority Associated [...] Time PHQ-9 Depression Total Score: 0 03/02/20 24 11:33 AM EDT A Body Mass Index follow-up plan has been documented for the patient 06/29/2024 1:23 PM EDT documented as of this encounter Care Teams Sterile Processing Manager Relationship Specialty Start Date End Date Jesenia Peng, ELECTRICAL JOURNEYMAN-TOPPER PRESS OPERATOR [address] [facility], [address] [place] [address] PCP - General 03/19/15 documented as of this encounter
--- OUTSIDE RECORDS SUMMARY | 2025-07-26 11:28 | XMS_ITS | Encounter Summary ---
Author Organization [facility] [employer] Sys tem Address [id number] [address] [place] [address] Care Team Providers Care Service Coordinator Name Role Phone Jesenia Peng BOARD CATCHER-DENTAL COORDINATOR Primary Care Provider Encounter Details Date Type Department Care Team (Late st Contact Info) Description 07/17/2022 Orders Only [facility] [address] [place] [phone] Jo Grant CMA Osteoarthritis of facet joint [...] Office Visit [facility], A Department of [address] 101, [address], 103 [place] [address] Trice Stinson MD [address] [place] [address] 101, 102, 103 [place] [address] 08/03/2025 9:30 AM EDT [facility] On [address] [address] 08/07/2025 11:00 AM EDT Office Visit [facility] [address] [address] Isidro Woodall DO [address] [address] 08/07/2025 11:00 AM EDT Appointment [facility] Radiology [address] [place] [address] 08/09/2025 12:00 PM EDT Hospital Encounter [facility] - Endoscopy [address] [place] [address] [place] [address] [place] [address], [address] [place] [address] 08/09/2025 12:00 PM EDT - 08/09/2025 12:30 PM EDT Surgery [facility] - Endoscopy [address] [place] [address] [place] [address] [place] [address], [address] [place] [address] ESOPHAGOGASTRODUODENOSCOPY DIAGNOSTIC [68811 (CPT )] 08/21/2025 2:30 PM EDT Appointment [facility] Radiology [address] [place] [address] 08/22/2025 2:30 PM EDT Office Visit [facility] [address] [facility] 170 [place] [address] Isidro Woodall, [address] [facility] 170 [place] [address] 08/23/2025 1:30 PM EDT Office Visit [facility] [address] [facility] 170 [place] [address] Jesenia Peng, BOARD CATCHER-DENTAL COORDINATOR [address] [facility], [address] [place] [address] 09/26/2025 1:30 PM EST Office Visit [facility], A Department of [address] [phone] Neli Clemente MD MPH [address] [place] [phone] 10/13/2025 11:45 AM EST Office Visit [facility] Cardiology [address] [place] [address] 202 [place] [phone] Duong Johnson, [address] [place] [address], [address] [place] [address] 10/13/2025 3:15 PM EST [facility], A Department of [address] [phone] Ines Uribe PA-C [address] [place] [address], [address] [place] [address] 11/14/2025 12:20 PM EST Office Visit [facility] [address] [place] [address] Ofelia Pierce V, BOARD CATCHER-DENTAL COORDINATOR [address] [place] [address] 11/21/2025 12:30 PM EST Appointment [facility] [place] - Mammography [address] [place] [phone] Scheduled Procedures Name Priority Associated Diagnoses Date/Ti nj ESOPHAGOGASTRODUODENOSCOPY DIAGNOSTIC Esophageal dysphagia (R13.19) 08/09/2025 12:00 [...] Time PHQ-9 Depression Total Score: 5 03/10/20 10:27 AM EDT A Body Mass Index follow-up plan has been documented for the patient 06/26/2022 6:02 AM EDT documented as of this encounter Care Teams Service Coordinator Relationship Specialty Start Date End Date Jesenia Peng, BOARD CATCHER-DENTAL COORDINATOR [address] [facility], [address] [place] [address] PCP - General 03/19/15 documented as of this encounter
--- OUTSIDE RECORDS SUMMARY | 2025-07-26 11:28 | XMS_ITS | Encounter Summary ---
Author Organization [facility] [employer] Sys [employer] Address [id number] [address] [place] [address] Care Team Providers Care Merchandiser Seasonal Name Role Phone Jesenia Peng MANAGER FLORAL-SURVEY WORKER Primary Care Provider Encounter Details Date Type Department Care Team (Late st Contact Info) Description 04/09/2022 Orders Only [facility] Cardiology [address] [place] [address] Elisabeth Sun MANAGER FLORALSURVEY WORKER [address] [place] [address] Chronic heart failure with preserved ejection fraction ([facility]) Social History Tobacco Use Types Packs/Day Years [...] Office Visit [facility], Rishi Department of [address] 101, [address], 103 [place] [phone] Trice Stinson MD [address] [place] [address] 101, 102, 103 [place] [address] 08/03/2025 9:30 AM EDT Procedure visit [facility] On [address] [address] 08/07/2025 11:00 AM EDT Office Visit [facility] [address] [address] Isidro Woodall DO [address] [facility] 170 [place] [address] 08/07/2025 11:00 AM EDT Appointment [facility] Radiology [address] [place] [address] 08/09/2025 12:00 PM EDT Hospital Encounter [facility] - Endoscopy [address] [place] [address] [place] [address] [place] [address], [address] [place] [address] 08/09/2025 12:00 PM EDT - 08/09/2025 12:30 PM EDT Surgery [facility] - Endoscopy [address] [place] [address] [place] [address] [place] [address], [address] [place] [address] ESOPHAGOGASTRODUODENOSCOPY DIAGNOSTIC [22544 (CPT )] 08/21/2025 2:30 PM EDT Appointment [facility] [address] [place] [address] 08/22/2025 2:30 PM EDT Office Visit [facility] [address] [facility] 170 [place] [address] Isidro Woodall, DO [address] [facility] 170 [place] [address] 08/23/2025 1:30 PM EDT Office Visit [facility] [address] [facility] 170 [place] [phone] Jesenia Peng, MANAGER FLORAL-SURVEY WORKER [address] [facility], [address] [place] [address] 09/26/2025 1:30 PM EST Office Visit [facility], A Department of [address] [address] [place] MPH [address] [place] [address] 10/13/2025 11:45 AM EST Office Visit [facility] Cardiology [address] [place] [address] 202 [place] [address] Duong Johnson, DO [address] [place] [address], [address] [place] [address] 10/13/2025 3:15 PM EST Office Visit [facility], A Department of [address] [phone] Ines Uribe, PA-C [address] [facility], [address] [place] [address] 11/14/2025 12:20 PM EST Office Visit [facility] [address] [place] [address] Ofelia Pierce APRN-JONEL [address] [place] [address] 11/21/2025 12:30 PM EST Appointment [facility] - Mammography [address] [place] [address] Scheduled Procedures Name Priority Associated [...] Basic Metabolic Panel (04/04/2022) 04/04/2022 Elisabeth Sun APRN-SURVEY WORKER LAB BLOOD ORDERABLES Fi nal Result SUNQUEST * Magnesium (04/04/2022) 04/04/2022 Elisabeth LAFLEUR LAB BLOOD ORDERABLES Fi nal Result [...] documented as of this encounter Care Teams Merchandiser Seasonal Relationship Specialty Start Date End Date Jesenia Peng APRN-CNP [address] [place] [address], [address] [place] [address] PCP - General 03/19/15 documented as of this encounter
--- OUTSIDE RECORDS SUMMARY | 2025-07-26 11:28 | XMS_ITS | Encounter Summary ---
Author Organization [facility] Address [id number] [address] [place] [address] Care Team Providers Care Emissions Testing And Repair Technician Name Role Phone Jesenia Peng DIVER HELPER-MULTIPLE DRUM SANDER HELPER Primary Care Provider Reason for Visit * Reason Comments Med Refill Encounter Details Date Type Department Care Team (Late st Contact Info) Description 05/25/2024 Refill [facility] Neurology [address] [place] [phone] Trice Stinson MD [address] [place] [address] 101, 102, 103 [place], [place] [phone] Social History Tobacco Use Types Packs/Day Years [...] Description 08/01/2025 2:00 PM EDT Office Visit [facility] Neurology, Department of [address] 101, 102, 103 [place] [phone] Trice Stinson MD [address] [place] [address] 101, 102, 103 [place] [address] 08/03/2025 9:30 AM EDT [facility] On [address] [address] 08/07/2025 11:00 AM EDT Office Visit [facility] [address] [facility] [address] [place] [phone] Isidro Woodall DO [address] [facility] [address] [place] [address] 08/07/2025 11:00 AM EDT Appointment [facility] Radiology [address] [place] [address] 08/09/2025 12:00 PM EDT Hospital Encounter [facility] - Endoscopy [address] [facility] [place] [address] Cliff Greenfield MD [address] [facility], [address] [place] [address] 08/09/2025 12:00 PM EDT - 08/09/2025 12:[address] [facility] - Endoscopy [address] [place] [address] Cliff Greenfield MD [address] [facility], [address] [place] [address] ESOPHAGOGASTRODUODENOSCOPY DIAGNOSTIC [77617 (CPT )] 08/21/2025 2:30 PM EDT Appointment [facility] Radiology [address] [place] [address] 08/22/2025 2:30 PM EDT Office Visit [facility] Rehabilitation [address] [facility] 170 [place] [phone] Isidro Woodall DO [address] [facility] 170 [place] [address] 08/23/2025 1:30 PM EDT Office Visit [facility] [address] [facility] 170 [place] [phone] Jesenia Peng, DIVER HELPER-MULTIPLE DRUM SANDER HELPER [address] [facility], [address] [place] [address] 09/26/2025 1:30 PM EST Office Visit [facility], A Department of [facility] [address] [place] [address] 202 [place] [address] Neli Clemente MD MPH [address] [facility] 202 [place] [address] 10/13/2025 11:45 AM EST Office Visit [facility] Cardiology [address] [place] [address] 202 [place] [address] Duong Johnson, DO [address] [facility], [address] [place] [address] 10/13/2025 3:15 PM EST Office Visit [facility], A Department of [facility] [address] [facility] [place] [facility] 103 [place] [address] Ines Uribe PA-C 5700 [facility], [address] [place] [address] 11/14/2025 12:20 PM EST Office Visit [facility] [address] [place] [address] Ofelia Pierce APRN-MULTIPLE DRUM SANDER HELPER [address] [place] [address] 11/21/2025 12:30 PM EST Appointment [facility] [place] - Mammography [address] [place] [phone] Scheduled Procedures Name Priority Associated Diagnoses Date/Ti [...] documented as of this encounter Care Teams Emissions Testing And Repair Technician Relationship Specialty Start Date End Date Jesenia Peng, DIVER HELPER-MULTIPLE DRUM SANDER HELPER [address] [facility], [address] [place] [address] PCP - General 03/19/15 documented as of this encounter
--- OUTSIDE RECORDS SUMMARY | 2025-07-26 11:28 | XMS_ITS | Encounter Summary ---
Author Organization [employer] Address [id number] [address] [place] [address] Care Team Providers Care Iron Guardrail Installer Name Role Phone Jesenia Peng BUSHLER-ASSURANCE ASSISTANT Primary Care Provider Reason for Visit * Reason Onset Date Comments Med Refill 04/01/2022 Encounter Details Date Type Department Care Team (Late st Contact Info) Description 04/01/2022 Refill [facility] [address] [place] [address] Anamaria Perkins CMA Social History [...] Visit [facility], A Department of [address] 101, [address], [address] [place] [phone] Trice Stinson MD [address] [place] [address], [facility] 101, 102, 103 [place] [address] 08/03/2025 9:30 AM EDT Procedure visit [facility] On [address] [address] 08/07/2025 11:00 AM EDT Office Visit [facility] [address] [facility] [address] [place] [address] Isidro Woodall DO [address] [facility] 170 [place] [address] 08/07/2025 11:00 AM EDT Appointment [facility] Radiology [address] [place] [address] 08/09/2025 12:00 PM EDT Hospital Encounter [facility] - Endoscopy [address] [place] [address] [place] [address] [place] [address], [address] [place] [address] 08/09/2025 12:00 PM EDT - 08/09/2025 12:30 PM EDT Surgery [facility] - Endoscopy [address] [place] [address] [place] [address] [place] [address], [address] [place] [address] ESOPHAGOGASTRODUODENOSCOPY DIAGNOSTIC [[id number] (CPT )] 08/21/2025 2:30 PM EDT Appointment [facility] Radiology [address] [place] [address] 08/22/2025 2:30 PM EDT Office Visit [facility] [address] [facility] 170 [place] [address] Isidro Woodall, DO [address] [facility] 170 [place] [address] 08/23/2025 1:30 PM EDT Office Visit [facility] [address] [facility] 170 [place] [phone] Jesenia Peng, BUSHLER-ASSURANCE ASSISTANT [address] [facility], [address] [place] [address] 09/26/2025 1:30 PM EST Office Visit [facility], A Department of [address] [phone] Neli Clemente MD MPH [address] [place] [phone] 10/13/2025 11:45 AM EST Office Visit [facility] Cardiology [address] [place] [phone] Duong Johnson, [address] [place] [address], [address] [place] [address] 10/13/2025 3:15 PM EST Office Visit [facility], A Department of [address] [phone] Ines Uribe PA-C [address] [place] [address], [address] [place] [address] 11/14/2025 12:20 PM EST Office Visit [facility] [address] [place] [address] Ofelia Pierce V, BUSHLER-ASSURANCE ASSISTANT [address] [place] [address] 11/21/2025 12:30 PM EST Appointment [facility] [place] - Mammography [address] [place] [address] Scheduled Procedures Name Priority Associated [...] documented as of this encounter Care Teams Iron Guardrail Installer Relationship Specialty Start Date End Date Jesenia Peng, BUSHLER-ASSURANCE ASSISTANT [address] [facility], [address] [place] [address] PCP - General 03/19/15 documented as of this encounter
--- NOTE | 2025-07-26 11:56 | PM.CN ---
Consult Note: HPI Data of Consult Patient: known to practice within the last 3 years Consult date: 07/26/25 Requesting Physician: Maribel Interiano NP Primary Care Provider: Non-Staff Physician, MD Consult Narrative Reason for consult: neck pain Narrative: Beena Madera a pleasant 74 year old female presents for evaluation of chronic neck pain. cervical xray is consistent with multilevel ddd and facet arthropathy. pt was previously receiving cervical TFESIs with benefit at prior pain management. pt notes worsening neck pain over the last year, has failed to benefit from > 6 weeks of PT/HEP, heat, ice, tylenol, nsaids. notes pain 6/10 increasing to 10/10 with turning head, activity, and lifting. denies fall/injury. recently underwent bilateral C3-4 C4-5 facet medial branch block #1 with >80% improvement in pain, preop pain up to 10/10 post op pain 2/10. pt noted it did not improve pain with looking down, which is discouraging to her. cc:: CC: Maribel Interiano NP Review of Systems ROS Musculoskeletal Reports: neck pain PFSH [facility] Medical History (Updated 07/26/25 @ 11:57 by Maribel Interiano NP) Parkinsons disease ?G20 - Parkinson's disease (ICD-10) Emphysema/COPD ?J43.9 - Emphysema, unspecified (ICD-10) Low back pain ?M54.50 - Low back pain, unspecified (ICD-10) Meds Home Medications and Allergies Home Medications ?Medication ?Instructions ?Recorded ?Confirmed ?Type amantadine HCl 100 mg tablet 100 mg PO BID 06/29/23 07/24/25 History carbidopa ER 25 mg-levodopa 100 mg 1 tab PO QID 06/29/23 07/24/25 History tablet,extended release clonazepam 0.5 mg tablet 0.5 mg PO BID 06/29/23 07/24/25 History losartan 25 mg tablet 25 mg PO DAILY 06/29/23 07/24/25 History pramipexole 0.25 mg tablet 0.25 mg PO TID 06/29/23 07/24/25 History calcium 600 mg (as carbonate)-vit tab PO 07/13/25 History D3 10 mcg (400 unit) chewable tablet (Calcium 600 with Vitamin D3) folic acid 1 mg tablet 1,000 mcg PO DAILY 07/13/25 07/24/25 History rasagiline 0.5 mg tablet (Azilect) 0.5 mg PO DAILY 07/13/25 07/24/25 History Allergies Allergy/AdvReac Type Severity Reaction Status Date / Time No Known Drug Allergies Allergy Verified 07/24/25 12:26 Exam Constitutional Documenting provider has reviewed patient's vital signs: yes Common normals: no apparent distress, oriented x3, healthy appearing, alert and well nourished General appearance: cooperative HENMT Common normals: normocephalic, hearing grossly normal bilaterally and moist oral mucous membranes Head and scalp: normocephalic Eye Common normals: PERRL Pupil: PERRL Neck & C-Spine Common normals: full ROM General: normal visual inspection Cervical spine: cervical ROM abnormal, pain with cervical ROM and cervical spine tenderness C3, C4 and C5 Other: negative spurlings sensation intact BUE strength 5/5 in BUE Chest Common normals: inspection of chest normal Respiratory Common normals: normal respiratory effort, no retractions and no use of accessory muscles Neuro Common normals: oriented x3 Sensorium/orientation: alert Psych Common normals: mental status grossly normal, thought process normal, cooperative, affect normal, speech normal and activity/motor behavior normal Speech: normal speech Thought process: normal thought process Results Additional Findings Additional findings: If on a controlled substance or opioids, I have checked an [place]AR[place] report on this patient and there are no aberrancies noted in the prescribing history.??If on a controlled substance or opioid a drug screen was completed and reviewed within the last year, and if there has not been a drug screen completed we ordered one today to monitor higher risk, state monitored pain medication use. As part of providing excellent, safe, comprehensive care, the following was completed at our patient's visit: 1. A medication reconciliation and review to ensure accurate knowledge of current/active medications, including asking our patients to inform us about any nlid-heb-ktydpuj medications or herbal remedies/nutritional supplements/alternative remedies. 2. A review to specifically ensure our patients have had annual screening for screening for depression, screening for tobacco use, and screening for unhealthy alcohol use. For concerning screenings had a discussion with the patient, provided patient education, and recommended follow-up with primary care provider when appropriate. If patient noted with a risk of falling, they received education on strength, gait, and balance training to prevent future risk of falling. Portions of this note may have been carried over from the previous visit and updated as appropriate. Please note this office utilizes paper charting in addition to the electronic medical record. A list of current medications, vitals, and PMH is available there as the clinical staff outside of myself do not have access to [employer] charting during the clinic day operations. As part of providing quality comprehensive care the current medications, vitals, and PMH were reviewed in the paper chart. Assessment and Plan Assessment and Plan (1) Cervical spondylosis: Assessment and Plan: The patient has had over 3 months of moderate to severe neck pain with functional impairment and inadequate response to conservative care including NSAIDS (unless there are contraindication such as concurrent blood thinners), multiple oral or topical pain medications, and home exercise program/physical therapy.? Patient has completed >6 weeks of guided home exercise program and/or formal physical therapy program without relief of their symptoms.? YAMILA 24% significant improvement from prior The patient noted the following:?? moderate to severe pain with ADLs, standing, walking, twisting, bending, lifting (2) Degenerative disc disease, cervical: Plan bilateral C3-4 C4-5 facet medial branch block x2 working towards RFA for facet mediated pain, procedure to be completed under fluoroscopy pt will need updated cervical MRI without contrast to evaluate cervical DDD, she is unsure if this was previously completed prior to cervical TFESIs with prior provider. We have attempted to obtain records without success, the patient and her will be calling that provider and attempting to obtain records. continue HEP as tolerated continue current medications f/u after each mbb
== END 2025-07-26 11:22 | disposition home or self-care (01) ==
LOC: PM 11:22
PROVIDERS: Visit Provider Nurse Practitioner
DX: M47.812 Spondylosis without myelopathy or radiculopathy, cervical region (principal); M50.30 Other cervical disc degeneration, unspecified cervical region
CPT/HCPCS: G0463